=== PATIENT | male | born 1985 | race African-American/Black ===

== ENCOUNTER 2016-09-05 09:22 | Emergency (ER) | payer MEDICAID ==
--- NOTE | 2016-09-05 10:54 | ER Document Report ---
ED Respiratory Problem - General Chief Complaint: Cough Stated Complaint: COUGH Time seen by provider: 10:10 Mode of Arrival: Ambulatory Information source: Patient TRAVEL OUTSIDE OF THE [place] IN LAST 30 DAYS: No - HPI Patient complains to provider of: Cough - pt was on his way to product picker his inhaler when he developed a "hard cough." It lasted several seconds but he feels much better now and wants to leave to product picker his inhaler. He has no other c/o - Related Data Allergies/Adverse Reactions: No Known Allergies Allergy (Verified 09/05/16 09:37) Past Medical History - General Information source: Patient - Social History Smoking Status: Current Some Day Smoker Cigarette use (# per day): No Chew tobacco use (# tins/day): No Smoking Education Provided: Yes Frequency of alcohol use: Rare Drug Abuse: None Family History: Reviewed & Not Pertinent, Other - does not know Patient has suicidal ideation: No Patient has homicidal ideation: No Pulmonary Medical History: Reports: Hx Asthma Renal/ Medical History: Denies: Hx Peritoneal Dialysis GI Medical History: Reports: Hx Irritable Bowel - constipation Psychiatric Medical History: Reports: Hx Anxiety, Hx Depression, Hx Personality Disorder, Hx Schizophrenia Past Surgical History: Reports: Hx Abdominal Surgery, Hx Appendectomy, Hx Orthopedic Surgery - finger - Immunizations Immunizations up to date: Yes Hx Diphtheria, Pertussis, Tetanus Vaccination: Yes - 2012 Hx Pneumococcal Vaccination: 08/23/00 Review of Systems - Review of Systems Constitutional: No symptoms reported EENT: No symptoms reported Cardiovascular: No symptoms reported Respiratory: Cough Gastrointestinal: No symptoms reported -: Yes All other systems reviewed and negative Physical Exam - General General appearance: Appears well In distress: None - HEENT Pharynx: Normal Neck: Normal - Respiratory Respiratory status: No respiratory distress Chest status: Nontender Breath sounds: Normal Chest palpation: Normal - Cardiovascular Rhythm: Regular Heart sounds: Normal auscultation Discharge - Discharge Clinical Impression: Cough in adult Condition: Stable Disposition: HOME, SELF-CARE Additional Instructions: rest, use inhaler as prescribed, return if worse Referrals: HOA HIGGINBOTHAM MD [ACTIVE STAFF] - Follow up as needed
== END 2016-09-05 10:15 | disposition home or self-care (01) ==
LOC: ER 09:22
DX: R05 Cough (principal); F17.200 Nicotine dependence, unspecified, uncomplicated
CPT/HCPCS: 99283

== ENCOUNTER 2016-12-16 22:03 | Emergency (ER) | payer MEDICAID ==
--- NOTE | 2016-12-17 00:36 | ER Document Report ---
ED General - General Chief Complaint: Other Stated Complaint: POSSIBLE FOOD POISONING Time seen by provider: 00:35 Mode of Arrival: Ambulatory Information source: Patient TRAVEL OUTSIDE OF THE [place] IN LAST 30 DAYS: No - HPI Patient complains to provider of: ingested food Onset: Just prior to arrival Onset/Duration: Sudden Quality of pain: No pain Associated symptoms: None Exacerbated by: Denies, Standing Similar symptoms previously: No Notes: Patient is a 31-year-old male who is well-known to this emergency room who presents to the emergency room via EMS tonight for concerns regarding possible ingestion of food, patient states that he ate some beef stew that he believes to be from September 2016, after ingesting the food, he immediately forced himself to throw it up, and reports having no symptoms at present time, he denies any nausea, no abdominal pain - Related Data Allergies/Adverse Reactions: No Known Allergies Allergy (Verified 09/05/16 09:37) Past Medical History - General Information source: Patient - Social History Smoking Status: Unknown if Ever Smoked Family History: Reviewed & Not Pertinent, Other - does not know Patient has suicidal ideation: No Patient has homicidal ideation: No Pulmonary Medical History: Reports: Hx Asthma Renal/ Medical History: Denies: Hx Peritoneal Dialysis GI Medical History: Reports: Hx Irritable Bowel - constipation Psychiatric Medical History: Reports: Hx Anxiety, Hx Depression, Hx Personality Disorder, Hx Schizophrenia Past Surgical History: Reports: Hx Abdominal Surgery, Hx Appendectomy, Hx Orthopedic Surgery - finger - Immunizations Immunizations up to date: Yes Hx Diphtheria, Pertussis, Tetanus Vaccination: Yes - 2012 Hx Pneumococcal Vaccination: 08/23/00 Review of Systems - Review of Systems Constitutional: No symptoms reported EENT: No symptoms reported Cardiovascular: No symptoms reported Respiratory: No symptoms reported Gastrointestinal: See HPI Genitourinary: No symptoms reported Male Genitourinary: No symptoms reported Musculoskeletal: No symptoms reported Skin: No symptoms reported Hematologic/Lymphatic: No symptoms reported Neurological/Psychological: No symptoms reported -: Yes All other systems reviewed and negative Physical Exam - Vital signs Vitals: Temp Pulse Resp BP Pulse Ox 98.1 F 85 16 120/82 98 12/16/16 22:10 12/16/16 22:10 12/16/16 22:10 12/16/16 22:10 12/16/16 22:10 Interpretation: Normal - General General appearance: Appears well, Alert - HEENT Head: Normocephalic, Atraumatic Eyes: Normal Pupils: PERRL - Respiratory Respiratory status: No respiratory distress Chest status: Nontender Breath sounds: Normal Chest palpation: Normal - Cardiovascular Rhythm: Regular Heart sounds: Normal auscultation Murmur: No - Abdominal Inspection: Normal Distension: No distension Bowel sounds: Normal Tenderness: Nontender Organomegaly: No organomegaly - Back Back: Normal, Nontender - Extremities General upper extremity: Normal inspection, Nontender, Normal color, Normal ROM , Normal temperature General lower extremity: Normal inspection, Nontender, Normal color, Normal ROM , Normal temperature, Normal weight bearing. No: Esdras's sign - Neurological Neuro grossly intact: Yes Cognition: Normal Orientation: AAOx4 [place] Coma Scale Eye Opening: Spontaneous [place] Coma Scale Verbal: Oriented Jasmin Coma Scale Motor: Obeys Commands Jasmin Coma Scale Total: 15 Speech: Normal Motor strength normal: LUE, RUE, LLE, RLE Sensory: Normal - Psychological Associated symptoms: Normal affect, Normal mood - Skin Skin Temperature: Warm Skin Moisture: Dry Skin Color: Normal Course - Re-evaluation Re-evalutation: 12/17/16 02:37 Patient is tolerating by mouth intake, he was discharged with instructions for follow-up and advised to return if symptoms worsen, patient acknowledges understanding and agreement with this plan - Vital Signs Vital signs: Temp Pulse Resp BP Pulse Ox 97.7 F 59 L 14 112/69 97 12/17/16 01:13 12/17/16 01:13 12/17/16 01:13 12/17/16 01:13 12/17/16 01:13 Discharge - Discharge Clinical Impression: Adverse food reaction Qualifiers: Encounter type: initial encounter Qualified Code(s): T78.1XXA - Other adverse food reactions, not elsewhere classified, initial encounter Condition: Stable Disposition: HOME, SELF-CARE Additional Instructions: Follow up with your primary care provider in one to 2 days. Return to the emergency room immediately if symptoms worsen or any additional concerns.
[2016-12-17 01:17] VITALS: BP 112/69
== END 2016-12-17 01:30 | disposition home or self-care (01) ==
LOC: ER 22:03
DX: T78.1XXA Other adverse food reactions, not elsewhere classified, initial encounter (principal); X58.XXXA Exposure to other specified factors, initial encounter
CPT/HCPCS: 99283

== ENCOUNTER 2016-12-27 11:23 | Emergency (ER) | payer MEDICAID ==
[2016-12-27 11:32] VITALS: BP 109/71
--- NOTE | 2016-12-27 11:52 | ER Document Report ---
HPI - HPI Pain Level: 0 Context: 31 yo male c/o ear fullness. attempted to clean ears with peroxide and baking soda. no pain Associated Symptoms: None Exacerbated by: Denies Relieved by: Denies Similar symptoms previously: No Recently seen / treated by doctor: No - ROS Systems Reviewed and Negative: Yes All other systems reviewed and negative - REPRODUCTIVE Reproductive: DENIES: : - DERM Skin Color: Normal Past Medical History - General Information source: Patient - Social History Smoking Status: Current Every Day Smoker Frequency of alcohol use: None Drug Abuse: None Lives with: Alone Family History: Reviewed & Not Pertinent, Other - does not know Patient has suicidal ideation: No Patient has homicidal ideation: No Pulmonary Medical History: Reports: Hx Asthma Renal/ Medical History: Denies: Hx Peritoneal Dialysis GI Medical History: Reports: Hx Irritable Bowel - constipation Psychiatric Medical History: Reports: Hx Anxiety, Hx Depression, Hx Personality Disorder, Hx Schizophrenia Past Surgical History: Reports: Hx Abdominal Surgery, Hx Appendectomy, Hx Orthopedic Surgery - finger - Immunizations Immunizations up to date: Yes Hx Diphtheria, Pertussis, Tetanus Vaccination: Yes - 2012 Hx Pneumococcal Vaccination: 08/23/00 Vertical Provider Document - CONSTITUTIONAL Agree With Documented VS: Yes Exam Limitations: No Limitations - INFECTION CONTROL TRAVEL OUTSIDE OF THE [place] IN LAST 30 DAYS: No - HEENT HEENT: Atraumatic, Normal ENT Exam, PERRLA - NECK Neck: Normal Inspection, Supple - RESPIRATORY Respiratory: Breath Sounds Normal, No Respiratory Distress O2 Sat by Pulse Oximetry: 95 - CARDIOVASCULAR Cardiovascular: Regular Rate, Regular Rhythm - NEURO Level of Consciousness: Awake, Alert - DERM Integumentary: Warm, Dry Course - Vital Signs Vital signs: Temp Pulse Resp BP Pulse Ox 98.1 F 81 18 109/71 95 12/27/16 11:31 12/27/16 11:31 12/27/16 11:31 12/27/16 11:31 12/27/16 11:31 Discharge - Discharge Clinical Impression: Normal exam Condition: Stable Disposition: HOME, SELF-CARE Additional Instructions: Your ear exam was normal today Follow up with your primary care for any concerns
== END 2016-12-27 12:05 | disposition home or self-care (01) ==
LOC: ER 11:23
DX: Z71.1 Person with feared health complaint in whom no diagnosis is made (principal); F17.200 Nicotine dependence, unspecified, uncomplicated
CPT/HCPCS: 99282

== ENCOUNTER 2016-12-31 08:59 | Emergency (ER) | payer MEDICAID ==
[2016-12-31 09:18] VITALS: BP 119/71
== END 2016-12-31 10:26 | disposition left against medical advice (07) ==
LOC: ER 08:59
DX: Z53.21 Procedure and treatment not carried out due to patient leaving prior to being seen by health care provider (principal)

== ENCOUNTER 2016-12-31 13:12 | Emergency (ER) | payer OTHER, MEDICAID ==
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
[2016-12-31 15:47] VITALS: BP 115/74
== END 2016-12-31 15:46 | disposition home or self-care (01) ==
LOC: ER 13:12
DX: Z04.1 Encounter for examination and observation following transport accident (principal); V47.5XXA Car driver injured in collision with fixed or stationary object in traffic accident, initial encounter
CPT/HCPCS: 99283

== ENCOUNTER 2017-01-05 10:40 | Emergency (ER) | payer MEDICAID, OTHER ==
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
[2017-01-05 11:16] VITALS: BP 116/72
== END 2017-01-05 11:56 | disposition home or self-care (01) ==
LOC: ER 10:40
DX: S30.0XXA Contusion of lower back and pelvis, initial encounter (principal); S90.00XA Contusion of unspecified ankle, initial encounter; S90.512A Abrasion, left ankle, initial encounter; S50.312A Abrasion of left elbow, initial encounter; V13.9XXA Unspecified pedal cyclist injured in collision with car, pick-up truck or van in traffic accident, initial encounter; J45.909 Unspecified asthma, uncomplicated; F17.210 Nicotine dependence, cigarettes, uncomplicated; Z71.6 Tobacco abuse counseling
CPT/HCPCS: 72110; 99283

== ENCOUNTER 2017-01-31 12:37 | Emergency (ER) | payer MEDICAID ==
[2017-01-31 12:44] VITALS: BP 114/72
--- NOTE | 2017-01-31 13:37 | ER Document Report ---
ED Skin Rash/Insect Bite/Abscs - General Chief Complaint: Insect Bite Stated Complaint: POSSIBLE BUG BITE Time Seen by Provider: 01/31/17 13:19 TRAVEL OUTSIDE OF THE [place] IN LAST 30 DAYS: No - Related Data Allergies/Adverse Reactions: No Known Allergies Allergy (Verified 01/31/17 12:41) Past Medical History - General Information source: Patient - Social History Smoking Status: Current Some Day Smoker Cigarette use (# per day): Yes - rarely Chew tobacco use (# tins/day): No Smoking Education Provided: No Frequency of alcohol use: Occasional Drug Abuse: None Occupation: diabled Lives with: Alone Family History: Reviewed & Not Pertinent, Other - does not know Patient has suicidal ideation: No Patient has homicidal ideation: No - Past Medical History Cardiac Medical History: Reports: None Pulmonary Medical History: Reports: Hx Asthma EENT Medical History: Reports: None Neurological Medical History: Reports: None Endocrine Medical History: Reports: None Renal/ Medical History: Reports: None Malignancy Medical History: Reports None GI Medical History: Reports: Hx Irritable Bowel - constipation Musculoskeltal Medical History: Reports None Skin Medical History: Reports None Psychiatric Medical History: Reports: Hx Anxiety, Hx Depression, Hx Personality Disorder, Hx Schizophrenia Traumatic Medical History: Reports: None Infectious Medical History: Reports: None Past Surgical History: Reports: Hx Abdominal Surgery, Hx Appendectomy, Hx Orthopedic Surgery - finger - Immunizations Immunizations up to date: Yes Hx Diphtheria, Pertussis, Tetanus Vaccination: Yes - 2012 Hx Pneumococcal Vaccination: 08/23/00 Review of Systems - Review of Systems Constitutional: No symptoms reported EENT: No symptoms reported Cardiovascular: No symptoms reported Respiratory: No symptoms reported Gastrointestinal: No symptoms reported Genitourinary: No symptoms reported Male Genitourinary: No symptoms reported Musculoskeletal: No symptoms reported Skin: Other - Insect bite to buttocks Hematologic/Lymphatic: No symptoms reported Neurological/Psychological: No symptoms reported -: Yes All other systems reviewed and negative Physical Exam - Vital signs Vitals: Temp Pulse Resp BP Pulse Ox 97.6 F 68 16 114/72 97 01/31/17 12:42 01/31/17 12:42 01/31/17 12:42 01/31/17 12:42 01/31/17 12:42 Interpretation: Normal - General General appearance: Appears well, Alert - HEENT Head: Normocephalic, Atraumatic Eyes: Normal Pupils: PERRL - Respiratory Respiratory status: No respiratory distress Chest status: Nontender Breath sounds: Normal Chest palpation: Normal - Cardiovascular Rhythm: Regular Heart sounds: Normal auscultation Murmur: No - Abdominal Inspection: Normal Distension: No distension Bowel sounds: Normal Tenderness: Nontender Organomegaly: No organomegaly - Back Back: Normal, Nontender - Extremities General upper extremity: Normal inspection, Nontender, Normal color, Normal ROM , Normal temperature General lower extremity: Normal inspection, Nontender, Normal color, Normal ROM , Normal temperature, Normal weight bearing. No: Esdras's sign - Neurological Neuro grossly intact: Yes Cognition: Normal Orientation: AAOx4 Jasmin Coma Scale Eye Opening: Spontaneous Jasmin Coma Scale Verbal: Oriented Jasmin Coma Scale Motor: Obeys Commands Jasmin Coma Scale Total: 15 Speech: Normal Motor strength normal: LUE, RUE, LLE, RLE Sensory: Normal - Psychological Associated symptoms: Normal affect, Normal mood - Skin Skin Temperature: Warm Skin Moisture: Dry Skin Color: Normal Location of irregularity: Other - Small insect bite to left buttocks swelling no inflammation no drainage no signs of infection Irregularity with: Tenderness. negative: Swelling, Warmth Course - Vital Signs Vital signs: Temp Pulse Resp BP Pulse Ox 97.6 F 68 16 114/72 97 01/31/17 12:42 01/31/17 12:42 01/31/17 12:42 01/31/17 12:42 01/31/17 12:42 Discharge - Discharge Clinical Impression: Insect bite to left buttocks Condition: Stable Disposition: HOME, SELF-CARE Instructions: Family Physicians / Practices Additional Instructions: Insect Bites You have been bitten by an insect. These bites can cause two types of swelling: an initial swelling due to insect saliva or injected poison, and a late reaction due to your body's allergic reaction. This initial local reaction may be uncomfortable but is not dangerous. Often there's an itchy "hive" at the bite location. This is treated with antihistamines, cold compresses, and resting the affected body part. The later reaction often develops about the second day. The entire area becomes very swollen, red, itchy, and tender. This is an allergic reaction. Your body is attacking the leftover insect saliva or venom. This type of allergy is unpleasant, but not dangerous. We treat this swelling with cortisone -type medicine. Sometimes we use antibiotics if we're worried about infection. Antihistamines help with the itch. If you develop a fever, chills, a red streak, or swollen glands in the area of the bite, infection may be starting. Return at once. Diphenhydramine The use of diphenhydramine (Benadryl) has been recommended to control allergic symptoms. The 25 mg strength is available over- the-counter, as well as the elixir. This antihistamine is used for many symptoms. It's useful for itching, watering eyes and nose, allergic swelling, hives, and insect stings. The medication can be repeated four times daily. Age Elixir (12.5 mg/tsp) 25 mg pill 1 yr 1/4 tsp 2-3 yr 1/2 tsp 4-8 yr 1 tsp 9-14 yr 2 tsp one tab adult 1-2 tabs Antihistamines may cause drowsiness, especially with the first dose. Do not operate machinery or drive while under the effects of the medication. Do not combine the medication with alcohol, or with any other medication without talking to your doctor. Acetaminophen Acetaminophen may be taken for pain relief or fever control. It's much safer than aspirin, offering a wider range of "safe" dosages. It is safe during . Some brand names are Tylenol, Panadol, Datril, Anacin 3, Tempra, and Liquiprin. Acetaminophen can be repeated every four hours. The following are maximum recommended dosages: WEIGHT Dose Drops Elixir Chewable( 80mg) (LBS.) drprs=droppers tsp=teaspoon 6 40 mg .4 ml (1/2) 6-11 80 mg .8 ml (full) 1/2 tsp 1 tab 12-16 120 mg 1 1/2 drprs 3/4 tsp 1 1/2 tabs 17-23 160 mg 2 drprs 1 tsp 2 tabs 24-30 240 mg 3 drprs 1 1/2 tsp 3 tabs 30-35 320 mg 2 tsp 4 tabs 36-41 360 mg 2 1/4 tsp 4 1 /2 tabs 42-47 400 mg 2 1/2 tsp 5 tabs 48-53 480 mg 3 tsp 6 tabs 54-59 520 mg 3 1/4 tsp 6 1 /2 tabs 60-64 560 mg 3 1/2 tsp 7 tabs 65-70 600 mg 3 3/4 tsp 7 1 /2 tabs 71-76 640 mg 4 tsp 8 tabs 77-82 720 mg 4 1/2 tsp 9 tabs 83-88 800 mg 5 tsp 10 tabs >89 pounds or adults 650 mg to 900 mg Acetaminophen can be repeated every four hours. Maximum daily dose not to exceed 4000 mg. These maximum recommended dosages are slightly higher than the dosages written on the product container, but these dosages are very safe and well below the toxic dosage for acetaminophen. FOLLOW-UP CARE: If you have been referred to a physician for follow-up care, call the physician s office for an appointment as you were instructed or within the next two days. If you experience worsening or a significant change in your symptoms, notify the physician immediately or return to the Emergency Department at any time for re-evaluation. Forms: Smoking Cessation Education
== END 2017-01-31 13:40 | disposition home or self-care (01) ==
LOC: ER 12:37
DX: S30.860A Insect bite (nonvenomous) of lower back and pelvis, initial encounter (principal); W57.XXXA Bitten or stung by nonvenomous insect and other nonvenomous arthropods, initial encounter
CPT/HCPCS: 99281

== ENCOUNTER 2017-04-03 23:14 | Emergency (ER) | payer MEDICAID ==
[2017-04-03] MEDS ORDERED: MAG HYDROX/AL HYDROX/SIMETH SUSP 30 ML UDCUP PO ONE (23:55)
[2017-04-03] MEDS ORDERED: LIDOCAINE 2% VISCOUS SOLN 20 ML UDCUP PO ONE (23:55)
[2017-04-03] MEDS ORDERED: METOCLOPRAMIDE HCL ORAL SOLN 10 MG/10 ML UDCUP PO ONE (23:55)
[2017-04-03] MEDS ORDERED: FAMOTIDINE 20 MG TABLET PO ONE (23:56)
[2017-04-04 01:15] LABS: ALANINE AMINOTRANSFERASE 19 U/L (21-72); ALBUMIN 4.7 g/dL (3.5-5.0); ALKALINE PHOSPHATASE 73 U/L (38-126); ANION GAP 11 (5-19); ASPARTATE AMINO TRANSFERASE 22 U/L (17-59); BILIRUBIN,DIRECT 0.3 mg/dL (0.0-0.4); BILIRUBIN,TOTAL 2.2 mg/dL (0.2-1.3); BLOOD UREA NITROGEN 12 mg/dL (7-20); CALCIUM 9.7 mg/dL (8.4-10.2); CARBON DIOXIDE 28 mmol/L (22-30); CHLORIDE 104 mmol/L (98-107); CREATININE RESULT 0.93 mg/dL (0.52-1.25); GLUCOSE 117 mg/dL (75-110); POTASSIUM 4.3 mmol/L (3.6-5.0); SODIUM 142.5 mmol/L (137-145); TOTAL PROTEIN 7.7 g/dL (6.3-8.2)
--- NOTE | 2017-04-04 01:23 | ER Document Report ---
ED General - General Chief Complaint: Abdominal Pain Stated Complaint: POSSIBLE ACID REFLUX Time Seen by Provider: 04/03/17 23:55 Notes: Patient is a 31-year-old male without past medical history who presents after he ate "something" which he states upset his stomach causing to have an episode of vomiting. He notes that he had a burning, constant, epigastric abdominal pain that is now resolved after receiving a GI cocktail. He reports a history of similar symptoms in the past. States that he has a history of gastroesophageal reflux disease and that this felt similar to those prior exacerbations. He did not see his primary care doctor regarding today's concerns. He did arrive by EMS. He denies any chest pain or shortness of breath. Denies any symptoms at time of my assessment. TRAVEL OUTSIDE OF THE [place] IN LAST 30 DAYS: No - Related Data Allergies/Adverse Reactions: No Known Allergies Allergy (Verified 01/31/17 12:41) Past Medical History - General Information source: Patient - Social History Smoking Status: Never Smoker Frequency of alcohol use: None Drug Abuse: None Family History: Reviewed & Not Pertinent, Other - does not know Patient has suicidal ideation: No Patient has homicidal ideation: No Pulmonary Medical History: Reports: Hx Asthma Renal/ Medical History: Denies: Hx Peritoneal Dialysis GI Medical History: Reports: Hx Irritable Bowel - constipation Psychiatric Medical History: Reports: Hx Anxiety, Hx Depression, Hx Personality Disorder, Hx Schizophrenia Past Surgical History: Reports: Hx Abdominal Surgery, Hx Appendectomy, Hx Orthopedic Surgery - finger - Immunizations Immunizations up to date: Yes Hx Diphtheria, Pertussis, Tetanus Vaccination: Yes - 2012 Hx Pneumococcal Vaccination: 08/23/00 Review of Systems - Review of Systems Notes: Constitutional: Negative for fever. HENT: Negative for sore throat. Eyes: Negative for visual changes. Cardiovascular: Negative for chest pain. Respiratory: Negative for shortness of breath. Gastrointestinal: Positive for abdominal pain and vomiting Genitourinary: Negative for dysuria. Musculoskeletal: Negative for back pain. Skin: Negative for rash. Neurological: Negative for headaches, weakness or numbness. 10 point ROS negative except as marked above and in HPI. Physical Exam - Vital signs Vitals: Temp Pulse Resp BP Pulse Ox 98.8 F 50 L 18 130/74 H 99 04/03/17 23:22 04/03/17 23:22 04/03/17 23:22 04/03/17 23:22 04/03/17 23:22 Interpretation: Bradycardic Notes: PHYSICAL EXAMINATION: GENERAL: Well-appearing, well-nourished and in no acute distress. HEAD: Atraumatic, normocephalic. EYES: Pupils equal round and reactive to light, extraocular movements intact, sclera anicteric, conjunctiva are normal. ENT: nares patent, oropharynx clear without exudates. Moist mucous membranes. NECK: Normal range of motion, supple without lymphadenopathy LUNGS: Breath sounds clear to auscultation bilaterally and equal. No wheezes rales or rhonchi. HEART: Regular rate and rhythm without murmurs ABDOMEN: Soft, nontender, normoactive bowel sounds. No guarding, no rebound. No masses appreciated. EXTREMITIES: Normal range of motion, no pitting or edema. No cyanosis. NEUROLOGICAL: No focal neurological deficits. Moves all extremities spontaneously and on command. PSYCH: Normal mood, normal affect. SKIN: Warm, Dry, normal turgor, no rashes or lesions noted. Course - Re-evaluation Re-evalutation: 04/04/17 01:22 Patient presents with epigastric abdominal pain with associated reflux symptoms most consistent with likely gastritis. Patient has no focal abdominal tenderness on examination. Lipase is normal. No LFT changes. Based on history and exam, I do not suspect ACS, pulmonary embolus, SBO, mesenteric ischemia, acute pancreatitis, biliary pathology, or an abdominal aortic dissection. Patient has had improvement of symptoms here with a GI cocktail. At this time will discharge with return precautions and follow-up recommendations. Verbal discharge instructions given a the bedside and opportunity for questions given. Medication warnings reviewed. Patient is in agreement with this plan and has verbalized understanding of return precautions and the need for primary care follow-up in the next 24-72 hours. - Vital Signs Vital signs: Temp Pulse Resp BP Pulse Ox 97.6 F 65 15 118/63 100 04/04/17 02:11 04/04/17 02:11 04/04/17 02:11 04/04/17 02:11 04/04/17 02:11 - Laboratory Result Diagrams: 04/04/17 00:50 Laboratory results interpreted by me: 04/04/17 00:50 Glucose 117 H Total Bilirubin 2.2 H ALT 19 L - EKG Interpretation by Me Additional EKG results interpreted by me: 04/04/17 01:23 Sinus bradycardia. Rate 55. No ST elevations or depressions. QTC is 398. Discharge - Discharge Clinical Impression: Epigastric abdominal pain Condition: Good Disposition: HOME, SELF-CARE Additional Instructions: Your symptoms appear to be most consistent with stomach or upper intestinal irritation. Please begin taking famotidine 40 mg in the morning and 40 mg at night. This medicine can be purchased directly [id number]. You may also take medicine such as Pepto-Bismol or Tums to assist with your pain. Please return to emergency department immediately if you have worsening of your pain, shortness of breath, vomiting, become unable to exert yourself due to pain or difficulty breathing, you pass out, or have any pain that radiates into your arms, jaw, or back. Please also return if you have any additional symptoms that are concerning to you. Referrals: GIANCARLO CHANCE MD [Primary Care Provider] - Follow up as needed
[2017-04-04 02:13] VITALS: BP 118/63
--- NOTE | 2017-04-04 23:19 | EKG REPORT ---
SEVERITY:- ABNORMAL ECG - SINUS RHYTHM PROBABLE LEFT VENTRICULAR HYPERTROPHY ST ELEVATION SUGGESTS PERICARDITIS VS EARLY REPOLARIZATION : Confirmed by: Fernando Delarosa 04-Apr-2017 23:18:39
== END 2017-04-04 02:41 | disposition home or self-care (01) ==
LOC: ER 23:14
DX: R10.13 Epigastric pain (principal); R11.10 Vomiting, unspecified
CPT/HCPCS: 93005; 99284; 36415; 83690; 80053; 84484; 93010; J3490 ×4

== ENCOUNTER 2017-04-06 01:28 | Emergency (ER) | payer MEDICAID ==
[2017-04-06 01:52] VITALS: BP 137/76
[2017-04-06] MEDS ORDERED: METOCLOPRAMIDE HCL ORAL SOLN 10 MG/10 ML UDCUP PO ONE (02:04)
[2017-04-06] MEDS ORDERED: MAG HYDROX/AL HYDROX/SIMETH SUSP 30 ML UDCUP PO ONE (02:04)
[2017-04-06] MEDS ORDERED: LIDOCAINE 2% VISCOUS SOLN 20 ML UDCUP PO ONE (02:04)
--- NOTE | 2017-04-06 02:17 | ER Document Report ---
ED General - General Chief Complaint: Abdominal Pain Stated Complaint: STOMACH ACHE Time Seen by Provider: 04/06/17 02:04 TRAVEL OUTSIDE OF THE [place] IN LAST 30 DAYS: No - HPI Patient complains to provider of: Epigastric abdominal pain Notes: Patient coming in for evaluation of epigastric abdominal pain after drinking alcohol. Patient states similar to previous visit when he received a GI cocktail however is not as worse. Patient describes the pain as burning. Patient denies any nausea vomiting diarrhea. Denies any trauma. Patient currently playing on cell phone as I am evaluating the patient - Related Data Allergies/Adverse Reactions: No Known Allergies Allergy (Verified 01/31/17 12:41) Past Medical History - Social History Smoking Status: Unknown if Ever Smoked Family History: Reviewed & Not Pertinent, Other - does not know Pulmonary Medical History: Reports: Hx Asthma Renal/ Medical History: Denies: Hx Peritoneal Dialysis GI Medical History: Reports: Hx Irritable Bowel - constipation Psychiatric Medical History: Reports: Hx Anxiety, Hx Depression, Hx Personality Disorder, Hx Schizophrenia Past Surgical History: Reports: Hx Abdominal Surgery, Hx Appendectomy, Hx Orthopedic Surgery - finger - Immunizations Immunizations up to date: Yes Hx Diphtheria, Pertussis, Tetanus Vaccination: Yes - 2012 Hx Pneumococcal Vaccination: 08/23/00 Review of Systems - Review of Systems Constitutional: No symptoms reported EENT: No symptoms reported Cardiovascular: No symptoms reported Respiratory: No symptoms reported Gastrointestinal: Abdominal pain Genitourinary: No symptoms reported Male Genitourinary: No symptoms reported Musculoskeletal: No symptoms reported Skin: No symptoms reported Hematologic/Lymphatic: No symptoms reported Neurological/Psychological: No symptoms reported Physical Exam - Vital signs Vitals: Temp Pulse Resp BP Pulse Ox 98.6 F 60 19 137/76 H 100 04/06/17 01:49 04/06/17 01:49 04/06/17 01:49 04/06/17 01:49 04/06/17 01:49 Interpretation: Normal - General General appearance: Appears well, Alert - HEENT Head: Normocephalic, Atraumatic Eyes: Normal Pupils: PERRL - Respiratory Respiratory status: No respiratory distress Chest status: Nontender Breath sounds: Normal Chest palpation: Normal - Cardiovascular Rhythm: Regular Heart sounds: Normal auscultation Murmur: No - Abdominal Inspection: Normal Distension: No distension Bowel sounds: Normal Tenderness: Nontender Organomegaly: No organomegaly - Back Back: Normal, Nontender - Extremities General upper extremity: Normal inspection, Nontender, Normal color, Normal ROM , Normal temperature General lower extremity: Normal inspection, Nontender, Normal color, Normal ROM , Normal temperature, Normal weight bearing. No: Esdras's sign - Neurological Neuro grossly intact: Yes Cognition: Normal Orientation: AAOx4 Jasmin Coma Scale Eye Opening: Spontaneous Jasmin Coma Scale Verbal: Oriented [place] Coma Scale Motor: Obeys Commands Jasmin Coma Scale Total: 15 Speech: Normal Motor strength normal: LUE, RUE, LLE, RLE Sensory: Normal - Psychological Associated symptoms: Normal affect, Normal mood - Skin Skin Temperature: Warm Skin Moisture: Dry Skin Color: Normal Course - Re-evaluation Re-evalutation: 04/06/17 06:20 The patient presents with abdominal pain without signs of peritonitis or other life-threatening or serious etiology. The patient appears stable for discharge and has been instructed to return immediately if the symptoms worsen in any way , or in 8-12hr if not improved for re-evaluation. The patient has been instructed to return if the symptoms worsen or change in any way. Pain resolved with GI cocktail. Patient was encouraged to taper his alcohol drinking - Vital Signs Vital signs: Temp Pulse Resp BP Pulse Ox 98.6 F 60 19 137/76 H 100 04/06/17 01:49 04/06/17 01:49 04/06/17 01:49 04/06/17 01:49 04/06/17 01:49 Discharge - Discharge Clinical Impression: Epigastric abdominal pain Condition: Good Disposition: HOME, SELF-CARE Instructions: Abdominal Pain ([facility]), Reflux Disease (GERD) ([facility]) Additional Instructions: Your symptoms are more likely related to your alcohol ingestion. Please refrain from drinking alcohol in excess. He may take Zantac [id number]. Prescriptions: Ranitidine HCl [Zantac 75 mg Tablet] 75 mg PO BID #20 tablet Forms: Return to Work
== END 2017-04-06 02:20 | disposition home or self-care (01) ==
LOC: ER 01:28
DX: R10.13 Epigastric pain (principal)
CPT/HCPCS: 99283; J3490 ×3

== ENCOUNTER 2017-04-17 11:31 | Emergency (ER) | payer MEDICAID ==
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
[2017-04-17 11:47] VITALS: BP 123/72
== END 2017-04-17 11:44 | disposition home or self-care (01) ==
LOC: ER 11:31
DX: J02.9 Acute pharyngitis, unspecified (principal); F17.200 Nicotine dependence, unspecified, uncomplicated
CPT/HCPCS: 99281

== ENCOUNTER 2017-04-19 13:09 | Emergency (ER) | payer MEDICAID ==
[2017-04-19] MEDS ORDERED: LIDOCAINE 2% VISCOUS SOLN 20 ML UDCUP PO ONE (13:43)
[2017-04-19] MEDS ORDERED: METOCLOPRAMIDE HCL ORAL SOLN 10 MG/10 ML UDCUP PO ONE (13:43)
[2017-04-19] MEDS ORDERED: MAG HYDROX/AL HYDROX/SIMETH SUSP 30 ML UDCUP PO ONE (13:43)
--- NOTE | 2017-04-19 14:43 | RADIOLOGY REPORT (SQ) ---
EXAM DESCRIPTION: ACUTE ABDOMEN SERIES COMPLETED DATE/TIME: 04/19/2017 2:29 pm REASON FOR STUDY: pain COMPARISON: 01/19/2014 NUMBER OF VIEWS: Three views. TECHNIQUE: Frontal chest, supine abdomen and upright/decubitus abdomen radiographic images acquired. LIMITATIONS: None. FINDINGS: CHEST: Lungs clear of infiltrates. FREE AIR: None. No abnormal gas collections. BOWEL GAS PATTERN: Nonobstructive pattern. No dilated loops or air fluid levels. CALCIFICATIONS: No suspicious calcifications. HARDWARE: None in the abdomen. SOFT TISSUES: No gross mass or suggestion of organomegaly. BONES: No acute fracture. No worrisome bone lesions. OTHER: No other significant finding. IMPRESSION: NO RADIOGRAPHIC EVIDENCE FOR ACUTE ABDOMINAL DISEASE. TECHNICAL DOCUMENTATION: JOB ID: [id number] [employer]- All Rights Reserved
--- NOTE | 2017-04-19 14:50 | ER Document Report ---
ED Medical Screen (RME) - General Chief Complaint: Abdominal Pain Stated Complaint: ABDOMINAL PAIN Time Seen by Provider: 04/19/17 13:43 Mode of Arrival: Ambulatory Information source: Patient Notes: Patient presents complaining of abdominal pressure. He denies pain and just states it is a diffuse pressure. He states that he took out the garbage and forgot to wash his hands before he ate so he is concerned he may have contracted an illness. No vomiting or diarrhea. Nothing makes the sensation better or worse. The sensation does radiate up into his chest. It is intermittent. TRAVEL OUTSIDE OF THE [place] IN LAST 30 DAYS: No - Related Data Allergies/Adverse Reactions: No Known Allergies Allergy (Verified 04/19/17 13:17) Home Medications: Current Home Medications Risperidone [Risperidone] 2 mg PO DAILY 04/19/17 [History] Past Medical History - General Information source: Patient - Social History Chew tobacco use (# tins/day): No Frequency of alcohol use: Rare Drug Abuse: None Family history: Reviewed & Not Pertinent Pulmonary Medical History: Reports: Hx Asthma Renal/ Medical History: Denies: Hx Peritoneal Dialysis GI Medical History: Reports: Hx Irritable Bowel - constipation Psychiatric Medical History: Reports: Hx Anxiety, Hx Depression, Hx Personality Disorder, Hx Schizophrenia Past Surgical History: Reports: Hx Abdominal Surgery, Hx Appendectomy, Hx Orthopedic Surgery - finger - Immunizations Immunizations up to date: Yes Hx Diphtheria, Pertussis, Tetanus Vaccination: Yes - 2012 Review of Systems - Review of Systems Constitutional: denies: Chills, Fever Cardiovascular: denies: Chest pain, Palpitations Respiratory: denies: Cough, Short of breath Gastrointestinal: denies: Diarrhea, Vomiting -: Yes All other systems reviewed and negative Physical Exam - Vital signs Vitals: Temp Pulse Resp BP Pulse Ox 98.7 F 86 16 121/68 99 04/19/17 13:17 04/19/17 13:17 04/19/17 13:17 04/19/17 13:17 04/19/17 13:17 Interpretation: Normal - General General appearance: Appears well, Alert - HEENT Head: Normocephalic, Atraumatic Eyes: Normal Pupils: PERRL - Respiratory Respiratory status: No respiratory distress Chest status: Nontender Breath sounds: Normal Chest palpation: Normal - Cardiovascular Rhythm: Regular Heart sounds: Normal auscultation Murmur: No - Abdominal Inspection: Normal Distension: No distension Bowel sounds: Normal Tenderness: Nontender Organomegaly: No organomegaly - Back Back: Normal, Nontender - Extremities General upper extremity: Normal inspection, Nontender, Normal color, Normal ROM , Normal temperature General lower extremity: Normal inspection, Nontender, Normal color, Normal ROM , Normal temperature, Normal weight bearing. No: Esdras's sign - Neurological Neuro grossly intact: Yes Cognition: Normal Orientation: AAOx4 [place] Coma Scale Eye Opening: Spontaneous [place] Coma Scale Verbal: Oriented Jasmin Coma Scale Motor: Obeys Commands [place] Coma Scale Total: 15 Speech: Normal Motor strength normal: LUE, RUE, LLE, RLE Sensory: Normal - Psychological Associated symptoms: Normal affect, Normal mood - Skin Skin Temperature: Warm Skin Moisture: Dry Skin Color: Normal Course - Vital Signs Vital signs: Temp Pulse Resp BP Pulse Ox 98.7 F 86 16 121/68 99 04/19/17 13:17 04/19/17 13:17 04/19/17 13:17 04/19/17 13:17 04/19/17 13:17 - Diagnostic Test Radiology reviewed: Image reviewed, Reports reviewed - No evidence of acute pathology on x-ray. Doctor's Discharge - Discharge Clinical Impression: Abdominal pressure Condition: Stable Disposition: HOME, SELF-CARE Instructions: Abdominal Pain ([facility])
[2017-04-19 14:54] VITALS: BP 120/70
== END 2017-04-19 14:54 | disposition home or self-care (01) ==
LOC: ER 13:09
DX: R19.8 Other specified symptoms and signs involving the digestive system and abdomen (principal); J45.909 Unspecified asthma, uncomplicated; Z90.49 Acquired absence of other specified parts of digestive tract
CPT/HCPCS: 99284; 74022; J3490 ×3

== ENCOUNTER 2017-04-25 12:35 | Emergency (ER) | payer MEDICAID ==
[2017-04-25 12:40] VITALS: BP 134/77
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
== END 2017-04-25 13:41 | disposition home or self-care (01) ==
LOC: ER 12:35
DX: H53.8 Other visual disturbances (principal); J45.909 Unspecified asthma, uncomplicated
CPT/HCPCS: 99283

== ENCOUNTER 2017-05-29 15:35 | Emergency (ER) | payer MEDICAID ==
[2017-05-29 15:41] VITALS: BP 126/78
--- NOTE | 2017-05-29 16:23 | ER Document Report ---
ED General - General Chief Complaint: Bloody Stools Stated Complaint: BLOOD IN STOOL Time Seen by Provider: 05/29/17 15:58 Mode of Arrival: Ambulatory Information source: Patient Notes: 31-year-old male presents with history schizophrenia with complaints of rectal bleeding. Patient denies any fevers or chills denies any abdominal pain. Patient denies any previous similar episodes of rectal bleeding. Patient notes it is a bright red blood. TRAVEL OUTSIDE OF THE [place] IN LAST 30 DAYS: No - HPI Onset: Just prior to arrival Onset/Duration: Sudden Quality of pain: No pain Severity: None Pain Level: Denies Associated symptoms: None Exacerbated by: Denies Relieved by: Denies Similar symptoms previously: No Recently seen / treated by doctor: Yes - Related Data Allergies/Adverse Reactions: No Known Allergies Allergy (Verified 05/29/17 15:39) Past Medical History - Social History Smoking Status: Current Some Day Smoker Cigarette use (# per day): No Chew tobacco use (# tins/day): No Smoking Education Provided: No Frequency of alcohol use: None Drug Abuse: None Family History: Reviewed & Not Pertinent, Other - does not know Pulmonary Medical History: Reports: Hx Asthma Renal/ Medical History: Denies: Hx Peritoneal Dialysis GI Medical History: Reports: Hx Irritable Bowel - constipation Psychiatric Medical History: Reports: Hx Anxiety, Hx Depression, Hx Personality Disorder, Hx Schizophrenia Past Surgical History: Reports: Hx Abdominal Surgery, Hx Appendectomy, Hx Orthopedic Surgery - finger - Immunizations Immunizations up to date: Yes Hx Diphtheria, Pertussis, Tetanus Vaccination: Yes - 2012 Hx Pneumococcal Vaccination: 08/23/00 Review of Systems - Review of Systems Notes: REVIEW OF SYSTEMS: CONSTITUTIONAL : Denies fever, chills, or sweats. Denies recent illness. EENT: Denies eye, ear, throat, or mouth pain or symptoms. Denies nasal or sinus congestion or discharge. Denies throat, tongue, or mouth swelling or difficulty swallowing. CARDIOVASCULAR: Denies chest pain. Denies palpitations or racing or irregular heart beat. Denies ankle edema. RESPIRATORY: Denies cough, cold, or chest congestion. Denies shortness of breath, difficulty breathing, or wheezing. GASTROINTESTINAL: Admits to bright red rectal bleeding GENITOURINARY: Denies difficulty urinating, painful urination, burning, frequency, blood in urine, or discharge. MUSCULOSKELETAL: Denies back or neck pain or stiffness. Denies joint pain or swelling. SKIN: Denies rash, lesions or sores. HEMATOLOGIC : Denies easy bruising or bleeding. LYMPHATIC: Denies swollen, enlarged glands. NEUROLOGICAL: Denies confusion or altered mental status. Denies passing out or loss of consciousness. Denies dizziness or lightheadedness. Denies headache. Denies weakness or paralysis or loss of use of either side. Denies problems with gait or speech. Denies sensory loss, numbness, or tingling. Denies seizures. PSYCHIATRIC: Denies anxiety or stress. Denies depression, suicidal ideation, or homicidal ideation. ALL OTHER SYSTEMS REVIEWED AND NEGATIVE. Dictation was performed using [email or web address] voice recognition software PHYSICAL EXAMINATION: GENERAL: Well-appearing, well-nourished and in no acute distress. HEAD: Atraumatic, normocephalic. EYES: Pupils equal round and reactive to light, extraocular movements intact, sclera anicteric, conjunctiva are normal. ENT: Nares patent, oropharynx clear without exudates. Moist mucous membranes. NECK: Normal range of motion, supple without lymphadenopathy LUNGS: Breath sounds clear to auscultation bilaterally and equal. No wheezes rales or rhonchi. HEART: Regular rate and rhythm without murmurs ABDOMEN: Soft, nontender, nondistended abdomen. No guarding, no rebound. No masses appreciated. Rectal exam notes no abnormaltiy Musculoskeletal: Normal range of motion, no pitting or edema. No cyanosis. NEUROLOGICAL: Cranial nerves grossly intact. Normal speech, normal gait. Normal sensory, motor exams PSYCH: Normal mood, normal affect. SKIN: Warm, Dry, normal turgor, no rashes or lesions noted. Physical Exam - Vital signs Vitals: Temp Pulse Resp BP Pulse Ox 98.2 F 81 20 126/78 H 98 05/29/17 15:40 05/29/17 15:40 05/29/17 15:40 05/29/17 15:40 05/29/17 15:40 Course - Re-evaluation Re-evalutation: 05/29/17 19:03 Physical examination noted no significant abnormality patient otherwise looks well is in no distress. I will discharge the patient at this time as he has no life-threatening issues noted After performing a Medical Screening Examination, I estimate there is LOW risk for ACUTE APPENDICITIS, BOWEL OBSTRUCTION, ACUTE CHOLECYSTITIS, PERFORATED DIVERTICULITIS, INCARCERATED HERNIA, PANCREATITIS, TESTICULAR TORSION or PERFORATED ULCER, thus I consider the discharge disposition reasonable. Also, there is no evidence or peritonitis, sepsis, or toxicity. I have reevaluated this patient multiple times and no significant life threatening changes are noted. The patient and I have discussed the diagnosis and risks, and we agree with discharging home with close follow-up with the understanding that symptoms and presentations can change. We also discussed returning to the Emergency Department immediately if new or worsening symptoms occur. We have discussed the symptoms which are most concerning (e.g., bloody stool, fever, changing or worsening pain, intractable vomiting - standard verbal up date) that necessitate immediate return. - Vital Signs Vital signs: Temp Pulse Resp BP Pulse Ox 98.2 F 81 20 126/78 H 98 05/29/17 15:40 05/29/17 15:40 05/29/17 15:40 05/29/17 15:40 05/29/17 15:40 Discharge - Discharge Clinical Impression: Rectal bleed Condition: Stable Disposition: HOME, SELF-CARE Instructions: Rectal Bleeding, Unclear Cause ([facility]) Additional Instructions: Follow up with your physician tomorrow for further care or return to the ED IMMEDIATELY if symptoms worsen or new concerns occur. If you cannot afford to follow up with your primary care physician a list of low cost clinics have been provided at the end of your discharge papers as well. Referrals: GIANCARLO CHANCE MD [Primary Care Provider] - Follow up as needed
== END 2017-05-29 16:27 | disposition home or self-care (01) ==
LOC: ER 15:35
DX: R19.5 Other fecal abnormalities (principal); F17.200 Nicotine dependence, unspecified, uncomplicated
CPT/HCPCS: 99283

== ENCOUNTER 2017-07-16 11:15 | Emergency (ER) | payer MEDICAID ==
[2017-07-16 11:23] VITALS: BP 114/82
--- NOTE | 2017-07-16 12:07 | ER Document Report ---
HPI - HPI Patient complains to provider of: eye complaint Pain Level: 1 Context: Patient is a 32-year-old male who presents emergency department complaining of a swollen blood vessel in his right eye. Patient states that he noticed it this morning. He denies any direct trauma, fall, eye pain, vision changes, purulent drainage. States that yesterday he did have some foods that upset his stomach so he threw up once. Otherwise he denies any fevers or chills. - CONSTITUTIONAL Constitutional: DENIES: Fever, Chills - EENT EENT: REPORTS: Eye problems - redness to rt eye, no akosua. DENIES: Sore Throat, Ear Pain - NEURO Neurology: DENIES: Headache, Weakness, Vision blurred, Dizzinesss / Vertigo - CARDIOVASCULAR Cardiovascular: DENIES: Chest pain - RESPIRATORY Respiratory: DENIES: Trouble Breathing, Coughing - GASTROINTESTINAL Gastrointestinal: DENIES: Abdominal Pain, Black / Bloody Stools - URINARY Urinary: DENIES: Dysuria, Urgency, Frequency - REPRODUCTIVE Reproductive: DENIES: : - MUSCULOSKELETAL Musculoskeletal: DENIES: Extremity pain Past Medical History - Social History Smoking Status: Current Some Day Smoker Chew tobacco use (# tins/day): No Frequency of alcohol use: Rare Drug Abuse: None Family History: Reviewed & Not Pertinent, Other - does not know Patient has suicidal ideation: No Patient has homicidal ideation: No Pulmonary Medical History: Reports: Hx Asthma Renal/ Medical History: Denies: Hx Peritoneal Dialysis GI Medical History: Reports: Hx Irritable Bowel - constipation Psychiatric Medical History: Reports: Hx Anxiety, Hx Depression, Hx Personality Disorder, Hx Schizophrenia Past Surgical History: Reports: Hx Abdominal Surgery, Hx Appendectomy, Hx Orthopedic Surgery - finger - Immunizations Immunizations up to date: Yes Hx Diphtheria, Pertussis, Tetanus Vaccination: Yes - 2012 Hx Pneumococcal Vaccination: 08/23/00 Vertical Provider Document - CONSTITUTIONAL Agree With Documented VS: Yes Notes: PHYSICAL EXAM GENERAL: Alert, interacts well. HEAD: Normocephalic, atraumatic. EYES: Pupils equal, round, and reactive to light. Extraocular movements intact. Evidence of a small dilated blood vessel within the conjunctive a been no evidence of conjunctival hemorrhage, injection, purulent drainage NEUROLOGICAL: Alert and oriented x4. Normal speech. PSYCH: Normal affect, normal mood. SKIN: Warm, dry, normal turgor. No rashes or lesions noted. - INFECTION CONTROL TRAVEL OUTSIDE OF THE [place] IN LAST 30 DAYS: No - RESPIRATORY O2 Sat by Pulse Oximetry: 96 Course - Re-evaluation Re-evalutation: 07/16/17 12:06 Patient is a 32-year-old male who is hemodynamically stable, no acute distress afebrile. Benign physical exam with findings consistent with subconjunctival hemorrhage. Physical exam with extraocular motion intact in pupils equal and reactive to light. Visual acuity intact. No evidence of infection at this time. Discussed with patient findings and otherwise stable for discharge. - Vital Signs Vital signs: Temp Pulse Resp BP Pulse Ox 97.9 F 81 18 114/82 96 07/16/17 11:22 07/16/17 11:22 07/16/17 11:22 07/16/17 11:22 07/16/17 11:22 Discharge - Discharge Clinical Impression: eye complaint Condition: Good Disposition: HOME, SELF-CARE Instructions: Subconjunctival Hemorrhage ([facility]) Referrals: GIANCARLO CHANCE MD [Primary Care Provider] - Follow up as needed
== END 2017-07-16 12:11 | disposition home or self-care (01) ==
LOC: ER 11:15
DX: H57.11 Ocular pain, right eye (principal); F17.200 Nicotine dependence, unspecified, uncomplicated
CPT/HCPCS: 99282

== ENCOUNTER 2017-07-21 13:14 | Emergency (ER) | payer MEDICAID ==
[2017-07-21 14:04] VITALS: BP 120/73
[2017-07-21 15:33] LABS: ABSOLUTE EOSINOPHILS # (AUTO) 0.2 10^3/uL (0.0-0.6); ABSOLUTE LYMPHOCYTES (AUTO) 1.2 10^3/uL (0.5-4.7); ABSOLUTE MONOCYTES (AUTO) 0.3 10^3/uL (0.1-1.4); ABSOLUTE NEUT (AUTO) 1.9 10^3/uL (1.7-8.2); BASOPHILS % (AUTO) 0.3 % (0-2); EOSINOPHILS % (AUTO) 5.9 % (0-6); HEMATOCRIT 44.7 % (37.9-51.0); HEMOGLOBIN 15.3 g/dL (13.5-17.0); HGB HCT DIFFERENCE 1.2; LYMPHOCYTES % (AUTO) 33.3 % (13-45); MEAN CORPUSCULAR HEMOGLOBIN 27.9 pg (27.0-33.4); MEAN CORPUSCULAR HGB CONC 34.1 g/dL (32.0-36.0); MEAN CORPUSCULAR VOLUME 82 fl (80-97); MONOCYTES % (AUTO) 7.7 % (3-13); RED BLOOD COUNT 5.47 10^6/uL (4.35-5.55); RED CELL DISTRIBUTION WIDTH 14.2 % (11.5-14.0); SEGMENTED NEUTROPHILS % (AUTO) 52.8 % (42-78); WHITE BLOOD COUNT 3.6 10^3/uL (4.0-10.5)
--- NOTE | 2017-07-21 15:40 | RADIOLOGY REPORT (SQ) ---
EXAM DESCRIPTION: CT ABD/PELVIS NO ORAL OR IV COMPLETED DATE/TIME: 07/21/2017 3:23 pm REASON FOR STUDY: pain COMPARISON: 01/20/2014 TECHNIQUE: CT scan of the abdomen and pelvis performed without intravenous or oral contrast. Images reviewed with lung, soft tissue, and bone windows. Reconstructed coronal and sagittal MPR images revi ewed. All images stored on PACS. All CT scanners at this facility use dose modulation, iterative reconstruction, and/or weight based d osing when appropriate to reduce radiation dose to as low as reasonably achievable (ALARA). [facility]: Dose Right [facility]: CareDose [facility]: Dose Right [facility]: Teradose 4D [facility]: Skribit RADIATION DOSE: 4.8mGy. LIMITATIONS: The study is limited by lack contrast and paucity of intra-abdominal fat. FINDINGS: LOWER CHEST: No significant findings. No nodules or infiltrates. NON-CONTRASTED LIVER, SPLEEN, ADRENALS: Evaluation limited by lack of IV contrast. No identified sign ificant masses. PANCREAS: No masses. No peripancreatic inflammatory changes. GALLBLADDER: Surgically absent. RIGHT KIDNEY AND URETER: No suspicious masses. Assessment limited by lack of IV contrast. No signif icant calcifications. No hydronephrosis or hydroureter. LEFT KIDNEY AND URETER: No suspicious masses. Assessment limited by lack of IV contrast. No signifi cant calcifications. No hydronephrosis or hydroureter. AORTA AND RETROPERITONEUM: No aneurysm. No retroperitoneal masses or adenopathy. BOWEL AND PERITONEAL CAVITY: No obvious masses or inflammatory changes. No free fluid. APPENDIX: Normal. PELVIS, BLADDER, AND ABDOMINAL WALL:No abnormal masses. No free fluid. Bladder normal. BONES: No significant findings. OTHER: No other significant finding. IMPRESSION: Study limited by lack of contrast and lack of fat. There are no findings that explain t he patient's pain. COMMENT: Quality ID # [id number]: Final reports with documentation of one or more dose reduction techniques (e.g., Automated exposure control, adjustment of the mA and/or kV according to patient size, use of iterative reconstruction technique) TECHNICAL DOCUMENTATION: JOB ID: [id number]- All Rights Reserved
[2017-07-21 15:47] LABS: ALANINE AMINOTRANSFERASE 29 U/L (21-72); ALBUMIN 5.3 g/dL (3.5-5.0); ALKALINE PHOSPHATASE 83 U/L (38-126); ANION GAP 15 (5-19); ASPARTATE AMINO TRANSFERASE 29 U/L (17-59); BILIRUBIN,DIRECT 0.6 mg/dL (0.0-0.4); BILIRUBIN,TOTAL 2.6 mg/dL (0.2-1.3); BLOOD UREA NITROGEN 19 mg/dL (7-20); CALCIUM 9.8 mg/dL (8.4-10.2); CARBON DIOXIDE 27 mmol/L (22-30); CHLORIDE 103 mmol/L (98-107); CREATININE RESULT 1.03 mg/dL (0.52-1.25); GLUCOSE 81 mg/dL (75-110); POTASSIUM 4.5 mmol/L (3.6-5.0); SODIUM 144.7 mmol/L (137-145); TOTAL PROTEIN 8.4 g/dL (6.3-8.2)
--- NOTE | 2017-07-21 16:54 | ER Document Report ---
ED General - General Chief Complaint: Rectal Bleeding Stated Complaint: BLOOD IN STOOLS Time Seen by Provider: 07/21/17 15:01 Mode of Arrival: Ambulatory Information source: Patient Notes: Patient presents with lower abdominal pressure. He denies he has any pain. He states his only pressure. States nothing makes it better or worse. It does not radiate. He has had no problems with urination. He states he did have some small amount of blood in his stool today. No vomiting. No rashes. Symptoms have been intermittent. TRAVEL OUTSIDE OF THE [place] IN LAST 30 DAYS: No - Related Data Allergies/Adverse Reactions: No Known Allergies Allergy (Verified 07/16/17 11:21) Past Medical History - General Information source: Patient - Social History Smoking Status: Current Some Day Smoker Chew tobacco use (# tins/day): No Frequency of alcohol use: Rare Drug Abuse: None Family History: Reviewed & Not Pertinent, Other - does not know Patient has suicidal ideation: No Patient has homicidal ideation: No Pulmonary Medical History: Reports: Hx Asthma Renal/ Medical History: Denies: Hx Peritoneal Dialysis GI Medical History: Reports: Hx Irritable Bowel - constipation Psychiatric Medical History: Reports: Hx Anxiety, Hx Depression, Hx Personality Disorder, Hx Schizophrenia Past Surgical History: Reports: Hx Abdominal Surgery, Hx Appendectomy, Hx Orthopedic Surgery - finger - Immunizations Immunizations up to date: Yes Hx Diphtheria, Pertussis, Tetanus Vaccination: Yes - 2012 Hx Pneumococcal Vaccination: 08/23/00 Review of Systems - Review of Systems Constitutional: denies: Chills, Fever Cardiovascular: denies: Chest pain, Palpitations Respiratory: denies: Cough, Short of breath Gastrointestinal: denies: Nausea, Vomiting -: Yes All other systems reviewed and negative Physical Exam - Vital signs Vitals: Temp Pulse Resp BP Pulse Ox 98.2 F 85 18 120/73 100 07/21/17 14:00 07/21/17 14:00 07/21/17 14:00 07/21/17 14:00 07/21/17 14:00 Interpretation: Normal - General General appearance: Appears well, Alert - HEENT Head: Normocephalic, Atraumatic Eyes: Normal Pupils: PERRL - Respiratory Respiratory status: No respiratory distress Chest status: Nontender Breath sounds: Normal Chest palpation: Normal - Cardiovascular Rhythm: Regular Heart sounds: Normal auscultation Murmur: No - Abdominal Inspection: Normal Distension: No distension Bowel sounds: Normal Tenderness: Tender, Other - Mild diffuse tenderness with voluntary guarding. There are no surgical abdominal signs. Organomegaly: No organomegaly - Back Back: Normal, Nontender - Extremities General upper extremity: Normal inspection, Nontender, Normal color, Normal ROM , Normal temperature General lower extremity: Normal inspection, Nontender, Normal color, Normal ROM , Normal temperature, Normal weight bearing. No: Esdras's sign - Neurological Neuro grossly intact: Yes Cognition: Normal Orientation: AAOx4 [place] Coma Scale Eye Opening: Spontaneous Jasmin Coma Scale Verbal: Oriented Jasmin Coma Scale Motor: Obeys Commands Jasmin Coma Scale Total: 15 Speech: Normal Motor strength normal: LUE, RUE, LLE, RLE Sensory: Normal - Psychological Associated symptoms: Normal affect, Normal mood - Skin Skin Temperature: Warm Skin Moisture: Dry Skin Color: Normal Course - Vital Signs Vital signs: Temp Pulse Resp BP Pulse Ox 98.2 F 85 18 120/73 100 07/21/17 14:00 07/21/17 14:00 07/21/17 14:00 07/21/17 14:00 07/21/17 14:00 - Laboratory Result Diagrams: 07/21/17 15:10 07/21/17 15:10 Laboratory results interpreted by me: 07/21/17 07/21/17 15:10 15:10 WBC 3.6 L RDW 14.2 H Total Bilirubin 2.6 H Direct Bilirubin 0.6 H Total Protein 8.4 H Albumin 5.3 H - Diagnostic Test Radiology reviewed: Image reviewed, Reports reviewed - CT the abdomen is unremarkable for any acute pathology Discharge - Discharge Clinical Impression: Blood in stool, Abdominal pressure Condition: Stable Disposition: HOME, SELF-CARE Instructions: Stool Blood Test ([facility]) Additional Instructions: Please call your doctor as soon as possible to arrange for a recheck of the blood in your stool. You may need a colonoscopy to further evaluate this.
== END 2017-07-21 17:01 | disposition home or self-care (01) ==
LOC: ER 13:14
DX: K92.1 Melena (principal); R19.8 Other specified symptoms and signs involving the digestive system and abdomen; R10.817 Generalized abdominal tenderness; J45.909 Unspecified asthma, uncomplicated; F17.200 Nicotine dependence, unspecified, uncomplicated; Z87.19 Personal history of other diseases of the digestive system; Z90.49 Acquired absence of other specified parts of digestive tract
CPT/HCPCS: 36415; 74176; 80053; 85025; 99284

== ENCOUNTER 2017-07-22 03:28 | Emergency (ER) | payer MEDICAID ==
[2017-07-22 03:39] VITALS: BP 129/90
--- NOTE | 2017-07-22 03:45 | ER Document Report ---
HPI - HPI Patient complains to provider of: Sore throat Onset: This morning Onset/Duration: Gradual, Better Pain Level: 3 Context: 32-year-old male who has been sitting in the gazebo tonight waiting for the transport van to get back to come [address] complaining of sore throat he thinks because of being outside. No fever or chills. Chest pain shortness of breath. No cough. No abdominal pain. Associated Symptoms: None Exacerbated by: Denies Relieved by: Denies Similar symptoms previously: Yes Recently seen / treated by doctor: No - ROS ROS below otherwise negative: Yes Systems Reviewed and Negative: Yes All other systems reviewed and negative - REPRODUCTIVE Reproductive: DENIES: : Past Medical History - General Information source: Patient - Social History Smoking Status: Never Smoker Frequency of alcohol use: None Drug Abuse: None Lives with: Other - was staying at friends until last night but does have family on [address] Family History: Reviewed & Not Pertinent, Other - does not know Pulmonary Medical History: Reports: Hx Asthma Renal/ Medical History: Denies: Hx Peritoneal Dialysis GI Medical History: Reports: Hx Irritable Bowel - constipation Psychiatric Medical History: Reports: Hx Anxiety, Hx Depression, Hx Personality Disorder, Hx Schizophrenia Past Surgical History: Reports: Hx Abdominal Surgery, Hx Appendectomy, Hx Orthopedic Surgery - finger - Immunizations Immunizations up to date: Yes Hx Diphtheria, Pertussis, Tetanus Vaccination: Yes - 2012 Hx Pneumococcal Vaccination: 08/23/00 Vertical Provider Document - CONSTITUTIONAL Agree With Documented VS: Yes - pulse 46 at pivot Exam Limitations: No Limitations General Appearance: No Apparent Distress - INFECTION CONTROL TRAVEL OUTSIDE OF THE [place] IN LAST 30 DAYS: No - HEENT HEENT: Normal ENT Exam, Normocephalic. negative: Tympanic Membrane Red - NECK Neck: Supple. negative: Lymphadenopathy-Left, Lymphadenopathy-Right - RESPIRATORY Respiratory: Breath Sounds Normal, No Respiratory Distress O2 Sat by Pulse Oximetry: 98 - CARDIOVASCULAR Cardiovascular: Regular Rate, Regular Rhythm - NEURO Level of Consciousness: Awake, Alert, Appropriate - DERM Integumentary: Warm, Dry Course - Re-evaluation Re-evalutation: 07/22/17 04:07 has had pulse in the 50's in ER in past, come in frequently with minor complaints. most likely homeless. - Vital Signs Vital signs: Temp Pulse Resp BP Pulse Ox 97.4 F 46 L 18 129/90 H 98 11/30/17 03:29 07/22/17 03:29 07/22/17 03:29 07/22/17 03:29 07/22/17 03:29 Discharge - Discharge Clinical Impression: Sore throat Condition: Good Disposition: HOME, SELF-CARE Instructions: Family Physicians / Practices, Sore Throat ([facility]) Additional Instructions: to er any concerns cough drop for sore throat given to you Referrals: GIANCARLO CHANCE MD [Primary Care Provider] - Follow up as needed
== END 2017-07-22 04:07 | disposition home or self-care (01) ==
LOC: ER 03:28
DX: J02.9 Acute pharyngitis, unspecified (principal)
CPT/HCPCS: 99282

== ENCOUNTER 2017-08-03 11:35 | Emergency (ER) | payer MEDICAID ==
[2017-08-03 11:46] VITALS: BP 110/66
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
--- NOTE | 2017-08-05 13:08 | EKG REPORT ---
SEVERITY:- ABNORMAL ECG - SINUS RHYTHM RIGHT ATRIAL ABNORMALITY : Confirmed by: Fernando Delarosa 05-Aug-2017 13:07:59
== END 2017-08-03 12:05 | disposition home or self-care (01) ==
LOC: ER 11:35
DX: F41.9 Anxiety disorder, unspecified (principal); R07.89 Other chest pain; J45.909 Unspecified asthma, uncomplicated; F17.200 Nicotine dependence, unspecified, uncomplicated
CPT/HCPCS: 93005; 93010; 99284

== ENCOUNTER 2017-08-05 23:13 | Emergency (ER) | payer MEDICAID ==
[2017-08-05 23:28] VITALS: BP 124/66
--- NOTE | 2017-08-05 23:58 | ER Document Report ---
HPI - HPI Patient complains to provider of: Ankle injury Onset: Just prior to arrival Onset/Duration: Better Quality of pain: No pain Pain Level: Denies Context: Patient states that he was walking and accidentally stepped on something injuring his left ankle. Patient states that the ankle now feels better and he does not have any pain. Patient additionally has itching behind his left ear that he would like evaluated as well. Associated Symptoms: Other - Left ankle injury, now resolved Exacerbated by: Denies Relieved by: Denies Similar symptoms previously: Yes Recently seen / treated by doctor: No - ROS ROS below otherwise negative: Yes Systems Reviewed and Negative: Yes All other systems reviewed and negative - CONSTITUTIONAL Constitutional: DENIES: Fever - NEURO Neurology: DENIES: Headache - RESPIRATORY Respiratory: DENIES: Coughing - GASTROINTESTINAL Gastrointestinal: DENIES: Nausea - REPRODUCTIVE Reproductive: DENIES: : - MUSCULOSKELETAL Musculoskeletal: DENIES: Extremity pain, Back Pain - DERM Skin Color: Normal Notes: Dry skin Past Medical History - General Information source: Patient - Social History Smoking Status: Current Every Day Smoker Smoking Education Provided: Yes Frequency of alcohol use: Occasional Drug Abuse: None Occupation: None Lives with: Homeless Family History: Reviewed & Not Pertinent, Other - does not know Pulmonary Medical History: Reports: Hx Asthma Renal/ Medical History: Denies: Hx Peritoneal Dialysis GI Medical History: Reports: Hx Irritable Bowel - constipation Psychiatric Medical History: Reports: Hx Anxiety, Hx Bipolar Disorder, Hx Depression, Hx Personality Disorder, Hx Schizophrenia Past Surgical History: Reports: Hx Abdominal Surgery, Hx Appendectomy, Hx Cholecystectomy, Hx Orthopedic Surgery - finger - Immunizations Immunizations up to date: Yes Hx Diphtheria, Pertussis, Tetanus Vaccination: Yes - 2012 Hx Pneumococcal Vaccination: 08/23/00 Vertical Provider Document - CONSTITUTIONAL Agree With Documented VS: Yes Exam Limitations: No Limitations General Appearance: WD/WN, No Apparent Distress - INFECTION CONTROL TRAVEL OUTSIDE OF THE [place] IN LAST 30 DAYS: No - HEENT HEENT: Atraumatic, Normocephalic - NECK Neck: Normal Inspection - RESPIRATORY Respiratory: Breath Sounds Normal, No Respiratory Distress O2 Sat by Pulse Oximetry: 100 - CARDIOVASCULAR Cardiovascular: Regular Rate, Regular Rhythm, No Murmur - BACK Back: Normal Inspection - MUSCULOSKELETAL/EXTREMETIES Musculoskeletal/Extremeties: MAEW, FROM, Non-Tender, No Edema - NEURO Level of Consciousness: Awake, Alert, Appropriate Motor/Sensory: No Motor Deficit - DERM Integumentary: Warm, Dry Notes: Dry skin concerning for eczema to bilateral forearms. Patient with dry flaking skin to the left postauricular area. Course - Re-evaluation Re-evalutation: 08/06/17 00:03 Patient is very well-known to the department and has a history of frequent visits whenever the weather gets cold. Patient presently denies any ankle pain. Patient agreeable with plan to defer any imaging at this time. Patient advised to use emollients to help moisturize his skin to prevent drying and flaking. - Vital Signs Vital signs: Temp Pulse Resp BP Pulse Ox 97.2 F 47 L 18 124/66 100 08/05/17 23:14 08/05/17 23:14 08/05/17 23:14 08/05/17 23:14 08/05/17 23:14 Discharge - Discharge Clinical Impression: Resolved ankle pain, Dry skin dermatitis Condition: Stable Disposition: HOME, SELF-CARE Instructions: Acetaminophen, Atopic Dermatitis (Eczema) ([facility]), Steroid Medication Additional Instructions: Return immediately for any new or worsening symptoms Followup with your primary care provider, call tomorrow to make a followup appointment Apply moisturizers to skin frequently to help with dry flaky skin Prescriptions: Triamcinolone Acetonide [Aristocort 0.1% Cream] 1 applic TP TID #60 gm Referrals: GIANCARLO CHANCE MD [ACTIVE STAFF] - Follow up as needed
== END 2017-08-06 00:14 | disposition home or self-care (01) ==
LOC: ER 23:13
DX: S99.912A Unspecified injury of left ankle, initial encounter (principal); W22.8XXA Striking against or struck by other objects, initial encounter; Y93.01 Activity, walking, marching and hiking; L85.3 Xerosis cutis; J45.909 Unspecified asthma, uncomplicated; F17.200 Nicotine dependence, unspecified, uncomplicated; Z71.6 Tobacco abuse counseling
CPT/HCPCS: 99283

== ENCOUNTER 2017-08-17 02:55 | Emergency (ER) | payer MEDICAID, OTHER ==
[2017-08-17 03:06] VITALS: BP 134/66
--- NOTE | 2017-08-17 04:35 | ER Document Report ---
ED General - General Chief Complaint: Ear Pain Stated Complaint: EAR ACHE Time Seen by Provider: 08/17/17 04:23 Notes: Patient is a 32-year-old male well-known to the ED who presents with complaint of some pain in his right ear. Patient says he thinks he might scraped his ear when he was cleaning it. He says the pain has since resolved and he feels well. No recent runny nose cough or congestion. No fevers. No other complaints at this time. TRAVEL OUTSIDE OF THE [place] IN LAST 30 DAYS: No - Related Data Allergies/Adverse Reactions: No Known Allergies Allergy (Verified 08/03/17 11:39) Past Medical History - Social History Smoking Status: Unknown if Ever Smoked Frequency of alcohol use: None Drug Abuse: None Family History: Reviewed & Not Pertinent, Other - does not know Pulmonary Medical History: Reports: Hx Asthma Renal/ Medical History: Denies: Hx Peritoneal Dialysis GI Medical History: Reports: Hx Irritable Bowel - constipation Psychiatric Medical History: Reports: Hx Anxiety, Hx Bipolar Disorder, Hx Depression, Hx Personality Disorder, Hx Schizophrenia Past Surgical History: Reports: Hx Abdominal Surgery, Hx Appendectomy, Hx Cholecystectomy, Hx Orthopedic Surgery - finger - Immunizations Immunizations up to date: Yes Hx Diphtheria, Pertussis, Tetanus Vaccination: Yes - 2012 Hx Pneumococcal Vaccination: 08/23/00 Review of Systems - Review of Systems Notes: My Normal Review Basic REVIEW OF SYSTEMS: CONSTITUTIONAL : Denies fever, chills, or sweats. Denies recent illness. EENT: Right ear pain. CARDIOVASCULAR: Denies chest pain. RESPIRATORY: Denies cough, cold, or chest congestion. Denies shortness of breath, difficulty breathing, or wheezing. GASTROINTESTINAL: Denies abdominal pain. Denies nausea, vomiting, or diarrhea. Denies constipation. Last BM: MUSCULOSKELETAL: Denies neck or back pain or joint pain or swelling. SKIN: Denies rash or skin lesions. NEUROLOGICAL: Denies altered mental status or loss of consciousness. Denies headache. Denies weakness or paralysis or loss of use of either side. Denies problems with gait or speech. Denies sensory or motor loss. ALL OTHER SYSTEMS REVIEWED AND NEGATIVE. Physical Exam - Vital signs Vitals: Temp Pulse Resp BP Pulse Ox 98.6 F 70 18 134/66 H 96 08/17/17 03:02 08/17/17 03:02 08/17/17 03:02 08/17/17 03:02 08/17/17 03:02 - Notes Notes: General Appearance: Well nourished, alert, cooperative, no acute distress, no obvious discomfort. Vitals: reviewed, See vital signs table. Head: no swelling or tenderness to the head Eyes: PERRL, EOMI, Conjuctiva clear Ears: Normal appearing tympanic membranes bilaterally. Mouth: No decreasd moisture Throat: No tonsillar inflammation, No airway obstruction, No lymphadenopathy Neuro: speech clear, oriented x 3, normal affect, responds appropriately to questions. Course - Re-evaluation Re-evalutation: 08/18/17 05:19 Patient's evaluation of his ears is normal. His symptoms have since resolved. He looks well. I feel he is safe to be discharged home. Encourage him return to ER if he has any redness, swelling, or recurrent pain to the ear. Dictation of this chart was performed using voice recognition software; therefore, there may be some unintended grammatical errors. - Vital Signs Vital signs: Temp Pulse Resp BP Pulse Ox 98.6 F 70 18 134/66 H 96 08/17/17 03:02 08/17/17 03:02 08/17/17 03:02 08/17/17 03:02 08/17/17 03:02 Discharge - Discharge Clinical Impression: Ear pain, right Condition: Good Disposition: HOME, SELF-CARE Additional Instructions: Please return to the ER if you have worsening ear pain, fevers, diffciulty breathing or swallowing, vomiting, or if you feel unwell. Referrals: GIANCARLO CHANCE MD [Primary Care Provider] - Follow up as needed
== END 2017-08-17 05:00 | disposition home or self-care (01) ==
LOC: ER 02:55
DX: H92.01 Otalgia, right ear (principal); J45.909 Unspecified asthma, uncomplicated
CPT/HCPCS: 99282

== ENCOUNTER 2017-08-17 22:01 | Emergency (ER) | payer MEDICAID ==
[2017-08-17 22:09] VITALS: BP 105/73
[2017-08-17] MEDS ORDERED: FAMOTIDINE 20 MG TABLET PO ONE (22:39)
--- NOTE | 2017-08-17 22:41 | ER Document Report ---
ED General - General Chief Complaint: Abdominal Pain Stated Complaint: ABDOMINAL PAIN Time Seen by Provider: 08/17/17 22:35 Notes: Patient is a 32-year-old male who presents with complaint of an episode of some queasy feeling in his abdomen after he drank Gatorade. He says his symptoms have not resolved. His first take Prilosec but has ran out. He says he will get his prescription filled soon. Denies any fevers. No vomiting. No diarrhea. He says he is completely asymptomatic this time the symptoms are resolved. TRAVEL OUTSIDE OF THE [place] IN LAST 30 DAYS: No - Related Data Allergies/Adverse Reactions: No Known Allergies Allergy (Verified 08/03/17 11:39) Past Medical History - Social History Smoking Status: Unknown if Ever Smoked Frequency of alcohol use: None Drug Abuse: None Family History: Reviewed & Not Pertinent, Other - does not know Pulmonary Medical History: Reports: Hx Asthma Renal/ Medical History: Denies: Hx Peritoneal Dialysis GI Medical History: Reports: Hx Irritable Bowel - constipation Psychiatric Medical History: Reports: Hx Anxiety, Hx Bipolar Disorder, Hx Depression, Hx Personality Disorder, Hx Schizophrenia Past Surgical History: Reports: Hx Abdominal Surgery, Hx Appendectomy, Hx Cholecystectomy, Hx Orthopedic Surgery - finger - Immunizations Immunizations up to date: Yes Hx Diphtheria, Pertussis, Tetanus Vaccination: Yes - 2012 Hx Pneumococcal Vaccination: 08/23/00 Review of Systems - Review of Systems Notes: My Normal Review Basic REVIEW OF SYSTEMS: CONSTITUTIONAL : Denies fever, chills, or sweats. Denies recent illness. EENT: Denies eye, ear, throat, or mouth pain or symptoms. Denies nasal or sinus congestion. RESPIRATORY: Denies cough, cold, or chest congestion. Denies shortness of breath, difficulty breathing, or wheezing. GASTROINTESTINAL: Mild epigastric abdominal pain. Some nausea but no vomiting. GENITOURINARY: Denies difficulty urinating, painful urination, burning, frequency, or blood in urine. MUSCULOSKELETAL: Denies neck or back pain or joint pain or swelling. SKIN: Denies rash or skin lesions. NEUROLOGICAL: Denies altered mental status or loss of consciousness. Denies headache. Denies weakness or paralysis or loss of use of either side. Denies problems with gait or speech. Denies sensory or motor loss. ALL OTHER SYSTEMS REVIEWED AND NEGATIVE. Physical Exam - Vital signs Vitals: Temp Pulse Resp BP Pulse Ox 98.3 F 75 20 105/73 99 08/17/17 22:09 08/17/17 22:09 08/17/17 22:09 08/17/17 22:09 08/17/17 22:09 - Notes Notes: General Appearance: Well nourished, alert, cooperative, no acute distress, no obvious discomfort. Well-appearing. Vitals: reviewed, See vital signs table. Eyes: PERRL, EOMI, Conjuctiva clear Abdomen: Normal BS, soft, No rigidity, No abdominal tenderness, No guarding, no rebound, Extremities: strength 5/5 in all extremities, good pulses in all extremities, no edema. Skin: warm, dry, appropriate color, no rash Neuro: speech clear, oriented x 3, normal affect, responds appropriately to questions. Course - Re-evaluation Re-evalutation: 08/17/17 22:58 Patient is completely asymptomatic at this time. I did give him a dose of Pepcid. I encouraged him get his Prilosec prescription filled. I encouraged him the bland foods and to stick with clear liquids. Patient agrees with plan will be discharged home. Encouraged her return to ER if he has worsening pain, vomiting, or feels unwell. Dictation of this chart was performed using voice recognition software; therefore, there may be some unintended grammatical errors. - Vital Signs Vital signs: Temp Pulse Resp BP Pulse Ox 98.3 F 75 20 105/73 99 08/17/17 22:09 08/17/17 22:09 08/17/17 22:09 08/17/17 22:09 08/17/17 22:09 Discharge - Discharge Clinical Impression: Abdominal pain Qualifiers: Abdominal location: epigastric Qualified Code(s): R10.13 - Epigastric pain Condition: Good Disposition: HOME, SELF-CARE Additional Instructions: Please avoid spicy foods and fried foods. please drink mainly water for the next 24 hours. Return to the ER if you have abdominal pain, vomiting, fevers, or further concerns.
== END 2017-08-17 23:16 | disposition home or self-care (01) ==
LOC: ER 22:01
DX: R10.13 Epigastric pain (principal)
CPT/HCPCS: 99282; 99283; J3490

== ENCOUNTER 2017-08-18 09:27 | Emergency (ER) | payer MEDICAID ==
[2017-08-18 09:34] VITALS: BP 119/66
[2017-08-18] MEDS ORDERED: DOCUSATE SODIUM 100 MG CAPSULE PO ONE (09:38)
--- NOTE | 2017-08-18 09:40 | ER Document Report ---
ED General - General Chief Complaint: Lower Abdominal Pain Stated Complaint: ABDOMINAL PAIN Time Seen by Provider: 08/18/17 09:36 Notes: 32-year-old male here with complaints of "feeling gassy in my stomach" that started approximately 1 hour ago. He states he was at [employer] eating and he felt a bit gassy. While in the emergency department waiting room, he had a bowel movement and feels better. He has not yet tried anything for the symptoms. He denies any nausea vomiting diarrhea abdominal pain. TRAVEL OUTSIDE OF THE [place] IN LAST 30 DAYS: No - Related Data Allergies/Adverse Reactions: No Known Allergies Allergy (Verified 08/18/17 09:28) Past Medical History - Social History Smoking Status: Smoker,Current Status Unk Family History: Reviewed & Not Pertinent, Other - does not know Pulmonary Medical History: Reports: Hx Asthma Renal/ Medical History: Denies: Hx Peritoneal Dialysis GI Medical History: Reports: Hx Irritable Bowel - constipation Psychiatric Medical History: Reports: Hx Anxiety, Hx Bipolar Disorder, Hx Depression, Hx Personality Disorder, Hx Schizophrenia Past Surgical History: Reports: Hx Abdominal Surgery, Hx Appendectomy, Hx Cholecystectomy, Hx Orthopedic Surgery - finger - Immunizations Immunizations up to date: Yes Hx Diphtheria, Pertussis, Tetanus Vaccination: Yes - 2012 Hx Pneumococcal Vaccination: 08/23/00 Review of Systems - Review of Systems Notes: See history of present illness for pertinent positive review of systems; otherwise all review of systems have been reviewed and are negative Physical Exam - Vital signs Vitals: Temp Pulse Resp BP Pulse Ox 97.6 F 78 18 119/66 99 08/18/17 09:34 08/18/17 09:34 08/18/17 09:34 08/18/17 09:34 08/18/17 09:34 - Notes Notes: PHYSICAL EXAMINATION: GENERAL: Well-appearing and in no acute distress. HEAD: Atraumatic, normocephalic. EYES: Pupils equal round and reactive to light, extraocular movements intact, sclera anicteric, conjunctiva are normal. ENT: nares patent, oropharynx clear without exudates. Moist mucous membranes. NECK: Normal range of motion, supple without lymphadenopathy LUNGS: CTAB and equal. No wheezes rales or rhonchi. HEART: Regular rate and rhythm without murmurs ABDOMEN: Soft, no tenderness. No guarding, no rebound. In fact states, "it tickles" upon palpation EXTREMITIES: Normal range of motion, no pitting edema. No cyanosis. NEUROLOGICAL: Cranial nerves grossly intact. Normal sensory/motor exams. PSYCH: Normal mood, normal affect. SKIN: Warm, Dry, normal turgor, no rashes or lesions noted Course - Re-evaluation Re-evalutation: 08/18/17 09:39 MEDICAL DECISION MAKING: Concern for excessive flatulence which has now resolved after he had bowel movement a few minutes ago Will give him a dose of Colace and prescription for same His abdominal exam is unremarkable and he is instructed follow-up PCP next day or few Patient understands and agrees to the plan of care - Vital Signs Vital signs: Temp Pulse Resp BP Pulse Ox 97.6 F 78 18 119/66 99 08/18/17 09:34 08/18/17 09:34 08/18/17 09:34 08/18/17 09:34 08/18/17 09:34 Discharge - Discharge Clinical Impression: Flatus Condition: Good Disposition: HOME, SELF-CARE Additional Instructions: Use of the prescribed medication as needed for your symptoms. You were seen in the emergency department at [facility]. If you were given any sedating medications, be sure not to operate heavy machinery (example - driving ) and be sure you are not too sedated to walk appropriately. Please followup with your primary physician in the next few days for further management/ evaluation. Please return to the emergency department for worsening of symptoms or any symptom that you deem to be concerning or life-threatening. Thank you for allowing us to be part of your care. Prescriptions: Docusate Sodium [Colace 100 mg Capsule] 100 mg PO DAILY #30 capsule
== END 2017-08-18 09:54 | disposition home or self-care (01) ==
LOC: ER 09:27
DX: R14.3 Flatulence (principal); J45.909 Unspecified asthma, uncomplicated; Z90.49 Acquired absence of other specified parts of digestive tract; Z87.19 Personal history of other diseases of the digestive system
CPT/HCPCS: 99283; J3490

== ENCOUNTER 2017-08-18 23:21 | Emergency (ER) | payer MEDICAID ==
[2017-08-19] MEDS ORDERED: IBUPROFEN 800 MG TABLET PO ONE (00:47)
[2017-08-19] MEDS ORDERED: LIDOCAINE 5% (700 MG) TRANSDERMAL ADH..PATCH TP ONE (00:48)
--- NOTE | 2017-08-19 00:52 | ER Document Report ---
HPI - HPI Patient complains to provider of: back pain Onset: Just prior to arrival Onset/Duration: Gradual Quality of pain: Achy Pain Level: 1 Context: Patient presents complaining of left upper back pain that started just prior to arrival. Patient denies any injury. Patient denies any cough or cold symptoms. Patient states pain is not too severe at this time. Associated Symptoms: Other - Left upper back tenderness. denies: Chest pain, Nonproductive cough, Fever Exacerbated by: Denies Relieved by: Denies Similar symptoms previously: No Recently seen / treated by doctor: No - ROS ROS below otherwise negative: Yes Systems Reviewed and Negative: Yes All other systems reviewed and negative - CONSTITUTIONAL Constitutional: DENIES: Fever, Chills - NEURO Neurology: DENIES: Weakness - RESPIRATORY Respiratory: DENIES: Trouble Breathing, Coughing - GASTROINTESTINAL Gastrointestinal: DENIES: Nausea - REPRODUCTIVE Reproductive: DENIES: : - MUSCULOSKELETAL Musculoskeletal: REPORTS: Back Pain. DENIES: Extremity pain - DERM Skin Color: Normal Skin Problems: None Past Medical History - General Information source: Patient - Social History Smoking Status: Never Smoker Frequency of alcohol use: Occasional Drug Abuse: None Occupation: none Family History: Reviewed & Not Pertinent, Other - does not know Patient has suicidal ideation: No Patient has homicidal ideation: No Pulmonary Medical History: Reports: Hx Asthma Renal/ Medical History: Denies: Hx Peritoneal Dialysis GI Medical History: Reports: Hx Irritable Bowel - constipation Psychiatric Medical History: Reports: Hx Anxiety, Hx Bipolar Disorder, Hx Depression, Hx Personality Disorder, Hx Schizophrenia Past Surgical History: Reports: Hx Abdominal Surgery, Hx Appendectomy, Hx Cholecystectomy, Hx Orthopedic Surgery - finger - Immunizations Immunizations up to date: Yes Hx Diphtheria, Pertussis, Tetanus Vaccination: Yes - 2012 Hx Pneumococcal Vaccination: 08/23/00 Vertical Provider Document - CONSTITUTIONAL Agree With Documented VS: Yes Exam Limitations: No Limitations General Appearance: WD/WN, No Apparent Distress - INFECTION CONTROL TRAVEL OUTSIDE OF THE [place] IN LAST 30 DAYS: No - HEENT HEENT: Atraumatic, Normocephalic - NECK Neck: Normal Inspection, Supple - RESPIRATORY Respiratory: Breath Sounds Normal, No Respiratory Distress, Chest Non-Tender O2 Sat by Pulse Oximetry: 99 - CARDIOVASCULAR Cardiovascular: Regular Rate, Regular Rhythm, No Murmur - BACK Back: Abnormal Inspection - Left upper thoracic back tenderness, no midline spinal tenderness, step-off or deformity. negative: CVA Tenderness-Right, CVA Tenderness-Left - MUSCULOSKELETAL/EXTREMETIES Musculoskeletal/Extremeties: RIGO MCBRIDE - NEURO Level of Consciousness: Awake, Alert, Appropriate Motor/Sensory: No Motor Deficit - DERM Integumentary: Warm, Dry, No Rash Course - Re-evaluation Re-evalutation: 08/19/17 Patient with findings concerning for musculoskeletal back pain, no concern for pneumonia at this time, respirations even and unlabored. Patient nontoxic in appearance. Patient is very well-known to this emergency department and comes in frequently when it is cold outside due to his homeless status. - Vital Signs Vital signs: Temp Pulse Resp BP Pulse Ox 97.8 F 58 L 18 109/69 99 08/18/17 23:28 08/18/17 23:28 08/18/17 23:28 08/18/17 23:28 08/18/17 23:28 Discharge - Discharge Clinical Impression: Muscle strain of left upper back Qualifiers: Encounter type: initial encounter Qualified Code(s): S29.012A - Strain of muscle and tendon of back wall of thorax, initial encounter Condition: Stable Disposition: HOME, SELF-CARE Instructions: Acetaminophen, Use of [id number] Ibuprofen ([facility]), Ice Packs ([facility]), Muscle Strain ([facility]), Warm Packs ([facility]) Additional Instructions: Return immediately for any new or worsening symptoms Followup with your primary care provider, call tomorrow to make a followup appointment You may take [id number] Tylenol or Motrin as directed for pain relief Referrals: GIANCARLO CHANCE MD [ACTIVE STAFF] - Follow up as needed
[2017-08-19 02:16] VITALS: BP 121/86
== END 2017-08-19 02:11 | disposition home or self-care (01) ==
LOC: ER 23:21
DX: S29.012A Strain of muscle and tendon of back wall of thorax, initial encounter (principal); X58.XXXA Exposure to other specified factors, initial encounter; Z90.49 Acquired absence of other specified parts of digestive tract
CPT/HCPCS: 99283; J3490

== ENCOUNTER 2017-08-25 09:15 | Emergency (ER) | payer MEDICAID ==
[2017-08-25 10:12] LABS: HEMATOCRIT 43.5 % (37.9-51.0); HEMOGLOBIN 14.4 g/dL (13.5-17.0); MEAN CORPUSCULAR HEMOGLOBIN 27.3 pg (27.0-33.4); MEAN CORPUSCULAR VOLUME 83 fl (80-97); PLATELET COUNT 211 10^3/uL (150-450); RED BLOOD COUNT 5.26 10^6/uL (4.35-5.55); RED CELL DISTRIBUTION WIDTH 13.9 % (11.5-14.0); WHITE BLOOD COUNT 2.6 10^3/uL (4.0-10.5)
[2017-08-25 10:31] LABS: ANION GAP 11 (5-19); BLOOD UREA NITROGEN 15 mg/dL (7-20); CALCIUM 10.1 mg/dL (8.4-10.2); CARBON DIOXIDE 30 mmol/L (22-30); CHLORIDE 105 mmol/L (98-107); GLUCOSE 94 mg/dL (75-110); POTASSIUM 4.3 mmol/L (3.6-5.0); SODIUM 146.2 mmol/L (137-145)
[2017-08-25 10:42] LABS: ABSOLUTE LYMPHOCYTES# (MANUAL) 1.2 10^3/uL (0.5-4.7); ABSOLUTE MONOCYTES # (MANUAL) 0.3 10^3/uL (0.1-1.4); ABSOLUTE NEUTROPHILS# (MANUAL) 0.8 10^3/uL (1.7-8.2); BASOPHILS % (MANUAL) 2 % (0-2); EOSINOPHILS % (MANUAL) 12 % (0-6); LYMPHOCYTES % (MANUAL) 37 % (13-45); MONOCYTES % (MANUAL) 11 % (3-13); PLATELET COMMENT ADEQUATE; RBC MORPHOLOGY COMMENT NORMO-CYTIC/CHROMIC; SEGMENTED NEUTROPHILS % (MAN) 30 % (42-78); TOTAL CELLS COUNTED 100
--- NOTE | 2017-08-25 11:19 | ER Document Report ---
ED Dizziness/Weakness - General Chief Complaint: General Weakness Stated Complaint: WEAKNESS Time Seen by Provider: 08/25/17 09:47 Mode of Arrival: Ambulatory Information source: Patient Notes: Patient presents stating that he "just does not feel right". He denies any type of cough or cold. He says he feels somewhat weak. Patient denies any vomiting or diarrhea. He states that the symptoms of been intermittent. He does not know of anything that makes his symptoms better or worse. There is no known radiation of symptoms. The symptoms of been mild to moderate. TRAVEL OUTSIDE OF THE [place] IN LAST 30 DAYS: No - Related Data Allergies/Adverse Reactions: No Known Allergies Allergy (Verified 08/25/17 09:17) Past Medical History - General Information source: Patient - Social History Smoking Status: Never Smoker Chew tobacco use (# tins/day): No Frequency of alcohol use: Occasional Drug Abuse: None Family History: Reviewed & Not Pertinent, Other - does not know Patient has suicidal ideation: No Patient has homicidal ideation: No Pulmonary Medical History: Reports: Hx Asthma Renal/ Medical History: Denies: Hx Peritoneal Dialysis GI Medical History: Reports: Hx Irritable Bowel - constipation Psychiatric Medical History: Reports: Hx Anxiety, Hx Bipolar Disorder, Hx Depression, Hx Personality Disorder, Hx Schizophrenia Past Surgical History: Reports: Hx Abdominal Surgery, Hx Appendectomy, Hx Cholecystectomy, Hx Orthopedic Surgery - finger - Immunizations Immunizations up to date: Yes Hx Diphtheria, Pertussis, Tetanus Vaccination: Yes - 2012 Hx Pneumococcal Vaccination: 08/23/00 Review of Systems - Review of Systems Constitutional: Malaise, Weakness. denies: Fever Cardiovascular: denies: Chest pain Respiratory: denies: Cough, Short of breath Gastrointestinal: denies: Diarrhea, Vomiting -: Yes All other systems reviewed and negative Physical Exam - Vital signs Vitals: Temp Pulse Resp BP Pulse Ox 97.7 F 61 19 123/72 98 08/25/17 09:24 08/25/17 09:24 08/25/17 09:24 08/25/17 09:24 08/25/17 09:24 Interpretation: Normal - General General appearance: Appears well, Alert - HEENT Head: Normocephalic, Atraumatic Eyes: Normal Pupils: PERRL - Respiratory Respiratory status: No respiratory distress Chest status: Nontender Breath sounds: Normal Chest palpation: Normal - Cardiovascular Rhythm: Regular Heart sounds: Normal auscultation Murmur: No - Abdominal Inspection: Normal Distension: No distension Bowel sounds: Normal Tenderness: Nontender Organomegaly: No organomegaly - Back Back: Normal, Nontender - Extremities General upper extremity: Normal inspection, Nontender, Normal color, Normal ROM , Normal temperature General lower extremity: Normal inspection, Nontender, Normal color, Normal ROM , Normal temperature, Normal weight bearing. No: Esdras's sign - Neurological Neuro grossly intact: Yes Cognition: Normal Orientation: AAOx4 [place] Coma Scale Eye Opening: Spontaneous Jasmin Coma Scale Verbal: Oriented [place] Coma Scale Motor: Obeys Commands Jasmin Coma Scale Total: 15 Speech: Normal Motor strength normal: LUE, RUE, LLE, RLE Sensory: Normal - Psychological Associated symptoms: Normal affect, Normal mood - Skin Skin Temperature: Warm Skin Moisture: Dry Skin Color: Normal Course - Re-evaluation Re-evalutation: 08/25/17 11:11 Patient's white blood cell count is noticed to have been trending down over the last approximate 12 months. I have educated patient that this possibly is due to medications. He does not appear to have any type of infectious process at this time that would require further emergency department investigation. However I did stress the need to the patient to make sure this is being monitored by his physician or psychiatrist. I did instruct patient that he should have his CBC rechecked within 1 week by either his physician or psychiatrist. - Vital Signs Vital signs: Temp Pulse Resp BP Pulse Ox 97.7 F 61 19 123/72 98 08/25/17 09:24 08/25/17 09:24 08/25/17 09:24 08/25/17 09:24 08/25/17 09:24 - Laboratory Result Diagrams: 08/25/17 09:50 08/25/17 09:50 Laboratory results interpreted by me: 08/25/17 08/25/17 09:50 09:50 WBC 2.6 L Seg Neuts % (Manual) 30 L Eosinophils % (Manual) 12 H Abs Neuts (Manual) 0.8 L Sodium 146.2 H Discharge - Discharge Clinical Impression: Weakness Condition: Stable Disposition: HOME, SELF-CARE Instructions: Weakness ([facility]) Additional Instructions: Your blood pressure is mildly elevated. Please have this rechecked by your physician within 1 week. Your white blood cell count is low. This may be due to your medications. It is very important that your family physician or psychiatrist recheck your white blood cell count within the next week. A low white blood cell count can make you more likely to get serious infectious illnesses such as pneumonia. Therefore it is very important that you have this rechecked. Forms: Elevated Blood Pressure Referrals: PALMA SALDANA MD [COMMUNITY BASED STAFF] - Follow up in 1 week
[2017-08-25 11:31] VITALS: BP 133/80
== END 2017-08-25 11:35 | disposition home or self-care (01) ==
LOC: ER 09:15
DX: R53.1 Weakness (principal)
CPT/HCPCS: 99283; 99285; 36415; 85025; 80048; J3490

== ENCOUNTER 2017-08-25 18:16 | Emergency (ER) | payer MEDICAID ==
[2017-08-25 18:36] VITALS: BP 125/64
[2017-08-25] MEDS ORDERED: FAMOTIDINE 20 MG TABLET PO ONE (19:48)
--- NOTE | 2017-08-25 19:52 | ER Document Report ---
HPI - HPI Patient complains to provider of: stomach pain Pain Level: 1 Context: Patient is a 32-year-old male with a history of schizophrenia that comes emergency department for chief complaint of stomach discomfort. He states that he had buffalo wings, he states shortly after this he was eating fruit cups and he started to feel like his stomach was bloated and uncomfortable. He states he was worried they got stuck. He denies any current symptoms. He denies nausea or vomiting, diarrhea, fever. - GASTROINTESTINAL Gastrointestinal: REPORTS: Abdominal Pain - REPRODUCTIVE Reproductive: DENIES: : - DERM Skin Color: Normal Past Medical History - General Information source: Patient - Social History Smoking Status: Never Smoker Frequency of alcohol use: None Drug Abuse: None Lives with: Alone Family History: Reviewed & Not Pertinent, Other - does not know Patient has suicidal ideation: No Patient has homicidal ideation: No Pulmonary Medical History: Reports: Hx Asthma Renal/ Medical History: Denies: Hx Peritoneal Dialysis GI Medical History: Reports: Hx Irritable Bowel - constipation Psychiatric Medical History: Reports: Hx Anxiety, Hx Bipolar Disorder, Hx Depression, Hx Personality Disorder, Hx Schizophrenia Past Surgical History: Reports: Hx Abdominal Surgery, Hx Appendectomy, Hx Cholecystectomy, Hx Orthopedic Surgery - finger - Immunizations Immunizations up to date: Yes Hx Diphtheria, Pertussis, Tetanus Vaccination: Yes - 2012 Hx Pneumococcal Vaccination: 08/23/00 Vertical Provider Document - CONSTITUTIONAL General Appearance: WD/WN, No Apparent Distress - INFECTION CONTROL TRAVEL OUTSIDE OF THE [place] IN LAST 30 DAYS: No - HEENT HEENT: Atraumatic, Normocephalic - RESPIRATORY Respiratory: Breath Sounds Normal, No Respiratory Distress O2 Sat by Pulse Oximetry: 98 - CARDIOVASCULAR Cardiovascular: Regular Rate, Regular Rhythm - GI/ABDOMEN Gastrointestinal: Abdomen Soft, Abdomen Non-Tender - BACK Back: Normal Inspection - NEURO Level of Consciousness: Awake, Alert, Appropriate - DERM Integumentary: Warm, Dry, No Rash Course - Re-evaluation Re-evalutation: Patient points to his left upper quadrant as the area for bloating/discomfort. Probably had some stomach discomfort/gastritis after eating buffalo wings. Soft nontender abdomen on my exam. Does not complain of any abdominal symptoms at this time. No concerning symptoms reported, patient patient does not suggest acute abdomen or emergent process. Vital signs unremarkable. Patient given Pepcid, discharged with follow-up instructions and return precautions. Patient states understanding and agreement. - Vital Signs Vital signs: Temp Pulse Resp BP Pulse Ox 98.5 F 85 20 125/64 98 08/25/17 18:34 08/25/17 18:34 08/25/17 18:34 08/25/17 18:34 08/25/17 18:34 Discharge - Discharge Clinical Impression: Stomach ache Condition: Stable Disposition: HOME, SELF-CARE Additional Instructions: Your symptoms and the area you have discomfort are suggestive of mild gastritis , avoid spicy foods if necessary, take the Pepcid if needed, follow-up with primary care. Return for any concerning symptoms including vomiting, fever, or any other concerning symptoms. Prescriptions: Famotidine [Pepcid 20 mg Tablet] 20 mg PO BID PRN #20 tablet PRN Reason:
== END 2017-08-25 20:05 | disposition home or self-care (01) ==
LOC: ER 18:16
DX: R10.9 Unspecified abdominal pain (principal); F20.9 Schizophrenia, unspecified
CPT/HCPCS: 99283; J3490

== ENCOUNTER 2017-08-28 22:44 | Emergency (ER) | payer MEDICAID ==
--- NOTE | 2017-08-28 22:54 | ER Document Report ---
HPI - HPI Patient complains to provider of: Medication refill Pain Level: Denies Context: Patient is a 32-year-old male who presents emergency department stating that he ran out of his Spiriva a couple of days ago. Which he plans on going to pick it up tomorrow. He was not sure if he could get a dose in the emergency department. He denies any shortness of breath or difficulty breathing at this time. Denies any productive cough, chest pain states that he does have a prescription at the pharmacy - REPRODUCTIVE Reproductive: DENIES: : Past Medical History - Social History Smoking Status: Unknown if Ever Smoked Family History: Reviewed & Not Pertinent, Other - does not know Patient has suicidal ideation: No Patient has homicidal ideation: No Pulmonary Medical History: Reports: Hx Asthma Renal/ Medical History: Denies: Hx Peritoneal Dialysis GI Medical History: Reports: Hx Irritable Bowel - constipation Psychiatric Medical History: Reports: Hx Anxiety, Hx Bipolar Disorder, Hx Depression, Hx Personality Disorder, Hx Schizophrenia Past Surgical History: Reports: Hx Abdominal Surgery, Hx Appendectomy, Hx Cholecystectomy, Hx Orthopedic Surgery - finger - Immunizations Immunizations up to date: Yes Hx Diphtheria, Pertussis, Tetanus Vaccination: Yes - 2012 Hx Pneumococcal Vaccination: 08/23/00 Vertical Provider Document - CONSTITUTIONAL Agree With Documented VS: Yes Notes: PHYSICAL EXAM GENERAL: Alert, interacts well. HEAD: Normocephalic, atraumatic. EYES: Pupils equal, round, and reactive to light. Extraocular movements intact. ENT: Oral mucosa moist, tongue midline. NECK: Full range of motion. Supple. Trachea midline. LUNGS: Clear to auscultation bilaterally, no wheezes, rales, or rhonchi. No respiratory distress. HEART: Regular rate and rhythm. No murmurs, gallops, or rubs. EXTREMITIES: Moves all 4 extremities spontaneously. No edema, radial and dorsalis pedis pulses 2/4 bilaterally. No cyanosis. NEUROLOGICAL: Alert and oriented x4. Normal speech. PSYCH: Normal affect, normal mood. SKIN: Warm, dry, normal turgor. No rashes or lesions noted. - INFECTION CONTROL TRAVEL OUTSIDE OF THE [place] IN LAST 30 DAYS: No Course - Re-evaluation Re-evalutation: 08/28/17 23:21 Patient is a 32-year-old male who is well-known to the emergency department. Currently hemodynamically stable, no acute distress afebrile. No concern for asthma exacerbation given patient is satting 98% on pulse ox while speaking in clear sentences without any clinical tachypnea, retractions. Physical exam benign for any evidence of wheezing. Patient offered a albuterol rescue inhaler and to follow-up with his pharmacy in the morning to get his prescription and touch base with his primary care. Patient agrees with plan Discharge - Discharge Clinical Impression: Medication refill Condition: Good Disposition: HOME, SELF-CARE Additional Instructions: Please lemon picker your prescription from your pharmacy tomorrow Referrals: GIANCARLO CHANCE MD [Primary Care Provider] - Follow up as needed
[2017-08-28 22:57] VITALS: BP 113/64
[2017-08-28] MEDS ORDERED: ALBUTEROL SULFATE HFA (90 MCG/PUFF) 8 GM MDI (1 MDI/ER DISP) IH PRN (23:22)
== END 2017-08-28 23:28 | disposition home or self-care (01) ==
LOC: ER 22:44
DX: Z76.0 Encounter for issue of repeat prescription (principal); Z79.899 Other long term (current) drug therapy
CPT/HCPCS: 99281; J3490

== ENCOUNTER 2017-08-30 02:42 | Emergency (ER) | payer MEDICAID ==
[2017-08-30] MEDS ORDERED: IBUPROFEN 400 MG TABLET PO ONE (03:17)
[2017-08-30] MEDS ORDERED: LIDOCAINE 1% INJ-PF (10 MG/ML) 30 ML SDV NEB ONE (03:17)
--- NOTE | 2017-08-30 03:33 | ER Document Report ---
ED General - General Chief Complaint: Ankle Pain Stated Complaint: RIGHT ANKLE PAIN Time Seen by Provider: 08/30/17 02:57 Cannot obtain history due to: Mentally challenged Notes: Patient is a 32-year-old male frequently in the emergency department for random complaints who comes in tonight originally complaining of right ankle pain when I see him states "I originally to be seen from ankle but now I am more worried about my throat". Patient states he feels like he is choking on his saliva. He is very fidgety, pacing around the room, and has difficulty telling me what exactly brought him to the emergency department. He has not seen a primary doctor regarding today's concerns. He is currently homeless. He denies alcohol or drug use. Nothing improves or worsens his myriad of symptoms. TRAVEL OUTSIDE OF THE [place] IN LAST 30 DAYS: No - Related Data Allergies/Adverse Reactions: No Known Allergies Allergy (Verified 08/25/17 18:19) Past Medical History - General Information source: Patient - Social History Smoking Status: Never Smoker Frequency of alcohol use: None Drug Abuse: None Lives with: Homeless Family History: Reviewed & Not Pertinent, Other - does not know Pulmonary Medical History: Reports: Hx Asthma Renal/ Medical History: Denies: Hx Peritoneal Dialysis GI Medical History: Reports: Hx Irritable Bowel - constipation Psychiatric Medical History: Reports: Hx Anxiety, Hx Bipolar Disorder, Hx Depression, Hx Personality Disorder, Hx Schizophrenia Past Surgical History: Reports: Hx Abdominal Surgery, Hx Appendectomy, Hx Cholecystectomy, Hx Orthopedic Surgery - finger - Immunizations Immunizations up to date: Yes Hx Diphtheria, Pertussis, Tetanus Vaccination: Yes - 2012 Hx Pneumococcal Vaccination: 08/23/00 Review of Systems - Review of Systems Notes: Constitutional: Negative for fever. HENT: Positive for sore throat. Eyes: Negative for visual changes. Cardiovascular: Negative for chest pain. Respiratory: Negative for shortness of breath. Gastrointestinal: Negative for abdominal pain, vomiting or diarrhea. Genitourinary: Negative for dysuria. Musculoskeletal: Positive for right ankle pain Skin: Negative for rash. Neurological: Negative for headaches, weakness or numbness. 10 point ROS negative except as marked above and in HPI. Physical Exam - Vital signs Vitals: Temp Pulse Resp BP Pulse Ox 97.9 F 47 L 18 125/77 97 08/30/17 02:49 08/30/17 02:49 08/30/17 02:49 08/30/17 02:49 08/30/17 02:49 Interpretation: Bradycardic Notes: PHYSICAL EXAMINATION: GENERAL: Somewhat emaciated, no acute distress HEAD: Atraumatic, normocephalic. EYES: Pupils equal round and reactive to light, extraocular movements intact, sclera anicteric, conjunctiva are normal. ENT: nares patent, oropharynx clear without exudates. Moist mucous membranes. NECK: Normal range of motion, supple without lymphadenopathy LUNGS: Breath sounds clear to auscultation bilaterally and equal. No wheezes rales or rhonchi. HEART: Regular rate and rhythm without murmurs ABDOMEN: Soft, nontender, normoactive bowel sounds. No guarding, no rebound. No masses appreciated. EXTREMITIES: Normal range of motion, no pitting or edema. No cyanosis. NEUROLOGICAL: No focal neurological deficits. Moves all extremities spontaneously and on command. PSYCH: Anxious, pacing, fidgeting SKIN: Warm, Dry, normal turgor, no rashes or lesions noted. Course - Re-evaluation Re-evalutation: 08/30/17 03:17 Patient presents with multiple vague complaints that did not appear to be concerning for any acute life-threatening pathology. Vitals are within normal limits at triage and at time of discharge. Physical examination is unremarkable. Patient has tolerated oral intake without difficulty. Patient was not noted to be in distress at any point during their ER visit. At this time, based on the reassuring evaluation, I do not suspect an acute IA, pulmonary embolus, aortic dissection, acute intra-abdominal pathology, stroke, or sepsis. Will discharge with return precautions and follow-up recommendations. Verbal discharge instructions given a the bedside and opportunity for questions given. Medication warnings reviewed. Patient is in agreement with this plan and has verbalized understanding of return precautions and the need for primary care follow-up in the next 24-72 hours. - Vital Signs Vital signs: Temp Pulse Resp BP Pulse Ox 97.9 F 47 L 18 125/77 97 08/30/17 02:49 08/30/17 02:49 08/30/17 02:49 08/30/17 02:49 08/30/17 02:49 Discharge - Discharge Clinical Impression: Sore throat Right ankle pain Qualifiers: Chronicity: acute Qualified Code(s): M25.571 - Pain in right ankle and joints of right foot Condition: Good Disposition: HOME, SELF-CARE Additional Instructions: Please return to the emergency room immediately if you experience any concerning symptoms including high fevers, severe headache, chest pain, difficulty breathing, abdominal pain, slurred speech, numbness or weakness in your arms or legs, or any other symptom that concerns you.
[2017-08-30 05:45] VITALS: BP 119/80
== END 2017-08-30 05:59 | disposition home or self-care (01) ==
LOC: ER 02:42
DX: M25.571 Pain in right ankle and joints of right foot (principal); J02.9 Acute pharyngitis, unspecified; R09.89 Other specified symptoms and signs involving the circulatory and respiratory systems; F41.9 Anxiety disorder, unspecified; J45.909 Unspecified asthma, uncomplicated; R00.1 Bradycardia, unspecified; Z59.0 Homelessness
CPT/HCPCS: 99283; J3490

== ENCOUNTER 2017-09-09 06:09 | Emergency (ER) | payer MEDICAID ==
[2017-09-09 07:50] LABS: VENOUS BLOOD BASE EXCESS 4.9 mmol/L; VENOUS BLOOD HCO3 32.6 mmol/L (20-32); VENOUS BLOOD PCO2 61.5 mmHg (35-63); VENOUS BLOOD PH 7.34 (7.30-7.42)
--- NOTE | 2017-09-09 08:36 | ER Document Report ---
ED General - General Chief Complaint: Other Stated Complaint: DIFFICULTY BREATHING Time Seen by Provider: 09/09/17 06:40 Mode of Arrival: Ambulatory Information source: Patient TRAVEL OUTSIDE OF THE [place] IN LAST 30 DAYS: No - HPI Patient complains to provider of: Patient smell gas today Onset: Just prior to arrival Onset/Duration: Sudden Context: States he does have an electric stove however he said that he lives in an [facility] any smelt gas today. Patient denies any other symptoms. Associated symptoms: None Exacerbated by: Denies Relieved by: Denies Similar symptoms previously: No - Related Data Allergies/Adverse Reactions: No Known Allergies Allergy (Verified 08/25/17 18:19) Past Medical History - General Information source: Patient - Social History Smoking Status: Never Smoker Chew tobacco use (# tins/day): No Frequency of alcohol use: Rare Drug Abuse: None Family History: Reviewed & Not Pertinent, Other - does not know Patient has suicidal ideation: No Patient has homicidal ideation: No Pulmonary Medical History: Reports: Hx Asthma Renal/ Medical History: Denies: Hx Peritoneal Dialysis Malignancy Medical History: Reports None GI Medical History: Reports: Hx Irritable Bowel - constipation Musculoskeltal Medical History: Reports None Skin Medical History: Reports None Psychiatric Medical History: Reports: Hx Anxiety, Hx Bipolar Disorder, Hx Depression, Hx Personality Disorder, Hx Schizophrenia Past Surgical History: Reports: Hx Abdominal Surgery, Hx Appendectomy, Hx Cholecystectomy, Hx Orthopedic Surgery - finger - Immunizations Immunizations up to date: Yes Hx Diphtheria, Pertussis, Tetanus Vaccination: Yes - 2012 Hx Pneumococcal Vaccination: 08/23/00 Review of Systems - Review of Systems Constitutional: No symptoms reported EENT: No symptoms reported Cardiovascular: No symptoms reported Respiratory: No symptoms reported Gastrointestinal: No symptoms reported Genitourinary: No symptoms reported Male Genitourinary: No symptoms reported Musculoskeletal: No symptoms reported Skin: No symptoms reported Hematologic/Lymphatic: No symptoms reported Neurological/Psychological: No symptoms reported Physical Exam - Vital signs Vitals: Pulse Resp BP Pulse Ox 84 18 140/90 H 99 09/09/17 06:21 09/09/17 06:21 09/09/17 06:21 09/09/17 06:21 - Notes Notes: PHYSICAL EXAMINATION: GENERAL: Well-appearing, mildly disheveled , and in no acute distress. HEAD: Atraumatic, normocephalic. EYES: Pupils equal round and reactive to light, extraocular movements intact, sclera anicteric, conjunctiva are normal. ENT: Nares patent, oropharynx clear without exudates. Moist mucous membranes. NECK: Normal range of motion, supple without lymphadenopathy LUNGS: Breath sounds clear to auscultation bilaterally and equal. No wheezes rales or rhonchi. HEART: Regular rate and rhythm without murmurs ABDOMEN: Soft, nontender, nondistended abdomen. No guarding, no rebound. No masses appreciated. Musculoskeletal: Normal range of motion, no pitting or edema. No cyanosis. NEUROLOGICAL: Cranial nerves grossly intact. Normal speech, normal gait. Normal sensory, motor exams PSYCH: Normal mood, normal affect. SKIN: Warm, Dry, normal turgor, no rashes or lesions noted. Course - Vital Signs Vital signs: Temp Pulse Resp BP Pulse Ox 98.6 F 84 18 140/90 H 99 09/09/17 06:26 09/09/17 06:21 09/09/17 06:21 09/09/17 06:21 09/09/17 06:21 - Laboratory Laboratory results interpreted by me: 09/09/17 07:35 VBG HCO3 32.6 H 09/09/17 08:35 Carboxyhemoglobin 0.6 Discharge - Discharge Clinical Impression: Well adult health check Condition: Stable Disposition: HOME, SELF-CARE Additional Instructions: [facility] appointment. Return to the emergency department for any concerns Referrals: [facility] [Outside] - Follow up as needed
[2017-09-09 09:26] VITALS: BP 129/77
== END 2017-09-09 09:26 | disposition home or self-care (01) ==
LOC: ER 06:09
DX: Z71.1 Person with feared health complaint in whom no diagnosis is made (principal); Z90.49 Acquired absence of other specified parts of digestive tract
CPT/HCPCS: 36415; 82375; 82803; 99283

== ENCOUNTER 2017-09-09 11:39 | Emergency (ER) | payer OTHER, MEDICAID ==
[2017-09-09 11:46] VITALS: BP 120/76
[2017-09-09] MEDS ORDERED: IBUPROFEN 600 MG TABLET PO ONE (11:54)
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
== END 2017-09-09 12:59 | disposition home or self-care (01) ==
LOC: ER 11:39
DX: S19.9XXA Unspecified injury of neck, initial encounter (principal); V79.50XA Passenger on bus injured in collision with unspecified motor vehicles in traffic accident, initial encounter; Z90.49 Acquired absence of other specified parts of digestive tract
CPT/HCPCS: 99283; 72050; L0120

== ENCOUNTER 2017-09-19 11:35 | Emergency (ER) | payer MEDICAID, OTHER ==
[2017-09-19] MEDS ORDERED: ALBUTEROL SULFATE HFA (90 MCG/PUFF) 8 GM MDI (1 MDI/ER DISP) IH ONE (12:29)
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
[2017-09-19 12:42] VITALS: BP 113/71
== END 2017-09-19 12:53 | disposition home or self-care (01) ==
LOC: ER 11:35
DX: J06.9 Acute upper respiratory infection, unspecified (principal); J45.909 Unspecified asthma, uncomplicated; T48.6X6A Underdosing of antiasthmatics, initial encounter; Z91.120 Patient's intentional underdosing of medication regimen due to financial hardship; Z91.14 Patient's other noncompliance with medication regimen; I10 Essential (primary) hypertension; Z87.891 Personal history of nicotine dependence
CPT/HCPCS: 99283; J3490

== ENCOUNTER 2017-09-24 00:25 | Emergency (ER) | payer MEDICAID ==
--- NOTE | 2017-09-24 06:23 | ER Document Report ---
ED General - General Chief Complaint: Abdominal Pain Stated Complaint: BLOATING Time Seen by Provider: 09/24/17 06:10 Mode of Arrival: Ambulatory Information source: Patient Notes: 32-year-old male presents with complaints of abdominal bloating and cramping sensation that has since resolved. Patient notes that his abdomen felt like he was gassy, and then it resolved while he was in the emergency department waiting room but decided to stay to be evaluated. He denies any complaints at this time denies any fevers chills nausea vomiting or diarrhea TRAVEL OUTSIDE OF THE [place] IN LAST 30 DAYS: No - HPI Onset: Just prior to arrival Onset/Duration: Sudden Quality of pain: Cramping Severity: Mild Pain Level: Denies Associated symptoms: Other Exacerbated by: Denies Relieved by: Denies Similar symptoms previously: Yes Recently seen / treated by doctor: Yes - Related Data Allergies/Adverse Reactions: No Known Allergies Allergy (Verified 09/24/17 01:21) Past Medical History - Social History Smoking Status: Never Smoker Cigarette use (# per day): No Chew tobacco use (# tins/day): No Smoking Education Provided: No Family History: Reviewed & Not Pertinent, Other - does not know Patient has suicidal ideation: No Patient has homicidal ideation: No Pulmonary Medical History: Reports: Hx Asthma Renal/ Medical History: Denies: Hx Peritoneal Dialysis GI Medical History: Reports: Hx Irritable Bowel - constipation Psychiatric Medical History: Reports: Hx Anxiety, Hx Bipolar Disorder, Hx Depression, Hx Personality Disorder, Hx Schizophrenia Past Surgical History: Reports: Hx Abdominal Surgery, Hx Appendectomy, Hx Cholecystectomy, Hx Orthopedic Surgery - finger - Immunizations Immunizations up to date: Yes Hx Diphtheria, Pertussis, Tetanus Vaccination: Yes - 2012 Hx Pneumococcal Vaccination: 08/23/00 Review of Systems - Review of Systems Notes: REVIEW OF SYSTEMS: CONSTITUTIONAL : Denies fever, chills, or sweats. Denies recent illness. EENT: Denies eye, ear, throat, or mouth pain or symptoms. Denies nasal or sinus congestion or discharge. Denies throat, tongue, or mouth swelling or difficulty swallowing. CARDIOVASCULAR: Denies chest pain. Denies palpitations or racing or irregular heart beat. Denies ankle edema. RESPIRATORY: Denies cough, cold, or chest congestion. Denies shortness of breath, difficulty breathing, or wheezing. GASTROINTESTINAL: Abdominal cramping GENITOURINARY: Denies difficulty urinating, painful urination, burning, frequency, blood in urine, or discharge. MUSCULOSKELETAL: Denies back or neck pain or stiffness. Denies joint pain or swelling. SKIN: Denies rash, lesions or sores. HEMATOLOGIC : Denies easy bruising or bleeding. LYMPHATIC: Denies swollen, enlarged glands. NEUROLOGICAL: Denies confusion or altered mental status. Denies passing out or loss of consciousness. Denies dizziness or lightheadedness. Denies headache. Denies weakness or paralysis or loss of use of either side. Denies problems with gait or speech. Denies sensory loss, numbness, or tingling. Denies seizures. PSYCHIATRIC: Denies anxiety or stress. Denies depression, suicidal ideation, or homicidal ideation. ALL OTHER SYSTEMS REVIEWED AND NEGATIVE. Dictation was performed using [employer] voice recognition software PHYSICAL EXAMINATION: GENERAL: Well-appearing, well-nourished and in no acute distress. HEAD: Atraumatic, normocephalic. EYES: Pupils equal round and reactive to light, extraocular movements intact, sclera anicteric, conjunctiva are normal. ENT: Nares patent, oropharynx clear without exudates. Moist mucous membranes. NECK: Normal range of motion, supple without lymphadenopathy LUNGS: Breath sounds clear to auscultation bilaterally and equal. No wheezes rales or rhonchi. HEART: Regular rate and rhythm without murmurs ABDOMEN: Soft, nontender, nondistended abdomen. No guarding, no rebound. No masses appreciated. Musculoskeletal: Normal range of motion, no pitting or edema. No cyanosis. NEUROLOGICAL: Cranial nerves grossly intact. Normal speech, normal gait. Normal sensory, motor exams PSYCH: Normal mood, normal affect. SKIN: Warm, Dry, normal turgor, no rashes or lesions noted. Physical Exam - Vital signs Vitals: Temp Pulse Resp BP Pulse Ox 98.8 F 77 16 130/73 H 99 09/24/17 01:27 09/24/17 01:27 09/24/17 01:27 09/24/17 01:27 09/24/17 01:27 Course - Re-evaluation Re-evalutation: 09/24/17 07:03 Patient's examination is completely benign, he admits that his symptoms have resolved prior to my evaluation, he is pleasant and in no distress, patient was evaluated and will be discharged home with close follow-up After performing a Medical Screening Examination, I estimate there is LOW risk for ACUTE APPENDICITIS, BOWEL OBSTRUCTION, ACUTE CHOLECYSTITIS, PERFORATED DIVERTICULITIS, INCARCERATED HERNIA, PANCREATITIS, TESTICULAR TORSION or PERFORATED ULCER, thus I consider the discharge disposition reasonable. Also, there is no evidence or peritonitis, sepsis, or toxicity. I have reevaluated this patient multiple times and no significant life threatening changes are noted. The patient and I have discussed the diagnosis and risks, and we agree with discharging home with close follow-up with the understanding that symptoms and presentations can change. We also discussed returning to the Emergency Department immediately if new or worsening symptoms occur. We have discussed the symptoms which are most concerning (e.g., bloody stool, fever, changing or worsening pain, intractable vomiting - standard verbal up date) that necessitate immediate return. - Vital Signs Vital signs: Temp Pulse Resp BP Pulse Ox 98.2 F 70 20 138/75 H 98 09/24/17 05:23 09/24/17 06:52 09/24/17 06:52 09/24/17 06:52 09/24/17 06:52 Discharge - Discharge Clinical Impression: Bloating Abdominal pain Qualifiers: Abdominal location: unspecified location Qualified Code(s): R10.9 - Unspecified abdominal pain Condition: Stable Disposition: HOME, SELF-CARE Instructions: Abdominal Pain ([facility]) Additional Instructions: Please follow up with your pcp or return immediately if there are any other concerns
[2017-09-24 06:53] VITALS: BP 138/75
== END 2017-09-24 06:50 | disposition home or self-care (01) ==
LOC: ER 00:25
DX: R14.0 Abdominal distension (gaseous) (principal); R10.9 Unspecified abdominal pain
CPT/HCPCS: 99284

== ENCOUNTER 2017-09-24 07:31 | Emergency (ER) | payer MEDICAID ==
[2017-09-24 07:39] VITALS: BP 114/69
--- NOTE | 2017-09-24 07:48 | ER Document Report ---
ED General - General Chief Complaint: Back Pain Stated Complaint: BACK PAIN Time Seen by Provider: 09/24/17 07:46 Mode of Arrival: Ambulatory Information source: Patient Notes: 32-year-old male who was just discharged by myself approximately 2 minutes ago went into the waiting room and then while in the waiting room a another patient' s oxygen tank began leaking across the room and patient believe that his own oxygen level was dropping immediately presented in for evaluation for his breathing. Vital signs were performed and he is satting 100% Patient denies any shortness of breath TRAVEL OUTSIDE OF THE [place] IN LAST 30 DAYS: No - HPI Onset: Just prior to arrival Onset/Duration: Sudden Quality of pain: No pain Severity: None Pain Level: Denies Associated symptoms: Other Exacerbated by: Denies Relieved by: Denies Similar symptoms previously: No Recently seen / treated by doctor: Yes - Related Data Allergies/Adverse Reactions: No Known Allergies Allergy (Verified 09/24/17 01:21) Past Medical History - Social History Smoking Status: Never Smoker Cigarette use (# per day): No Chew tobacco use (# tins/day): No Smoking Education Provided: No Family History: Reviewed & Not Pertinent, Other - does not know Pulmonary Medical History: Reports: Hx Asthma Renal/ Medical History: Denies: Hx Peritoneal Dialysis GI Medical History: Reports: Hx Irritable Bowel - constipation Psychiatric Medical History: Reports: Hx Anxiety, Hx Bipolar Disorder, Hx Depression, Hx Personality Disorder, Hx Schizophrenia Past Surgical History: Reports: Hx Abdominal Surgery, Hx Appendectomy, Hx Cholecystectomy, Hx Orthopedic Surgery - finger - Immunizations Immunizations up to date: Yes Hx Diphtheria, Pertussis, Tetanus Vaccination: Yes - 2012 Hx Pneumococcal Vaccination: 08/23/00 Review of Systems - Review of Systems Notes: REVIEW OF SYSTEMS: CONSTITUTIONAL : Denies fever, chills, or sweats. Denies recent illness. EENT: Denies eye, ear, throat, or mouth pain or symptoms. Denies nasal or sinus congestion or discharge. Denies throat, tongue, or mouth swelling or difficulty swallowing. CARDIOVASCULAR: Denies chest pain. Denies palpitations or racing or irregular heart beat. Denies ankle edema. RESPIRATORY: Concerns for breathing issue GASTROINTESTINAL: Denies abdominal pain or distention. Denies nausea, vomiting , or diarrhea. Denies blood in vomitus, stools, or per rectum. Denies black, tarry stools. Denies constipation. GENITOURINARY: Denies difficulty urinating, painful urination, burning, frequency, blood in urine, or discharge. MUSCULOSKELETAL: Denies back or neck pain or stiffness. Denies joint pain or swelling. SKIN: Denies rash, lesions or sores. HEMATOLOGIC : Denies easy bruising or bleeding. LYMPHATIC: Denies swollen, enlarged glands. NEUROLOGICAL: Denies confusion or altered mental status. Denies passing out or loss of consciousness. Denies dizziness or lightheadedness. Denies headache. Denies weakness or paralysis or loss of use of either side. Denies problems with gait or speech. Denies sensory loss, numbness, or tingling. Denies seizures. PSYCHIATRIC: Denies anxiety or stress. Denies depression, suicidal ideation, or homicidal ideation. ALL OTHER SYSTEMS REVIEWED AND NEGATIVE. Dictation was performed using [employer] voice recognition software PHYSICAL EXAMINATION: GENERAL: Well-appearing, well-nourished and in no acute distress. HEAD: Atraumatic, normocephalic. EYES: Pupils equal round and reactive to light, extraocular movements intact, sclera anicteric, conjunctiva are normal. ENT: Nares patent, oropharynx clear without exudates. Moist mucous membranes. NECK: Normal range of motion, supple without lymphadenopathy LUNGS: Breath sounds clear to auscultation bilaterally and equal. No wheezes rales or rhonchi. HEART: Regular rate and rhythm without murmurs ABDOMEN: Soft, nontender, nondistended abdomen. No guarding, no rebound. No masses appreciated. Musculoskeletal: Normal range of motion, no pitting or edema. No cyanosis. NEUROLOGICAL: Cranial nerves grossly intact. Normal speech, normal gait. Normal sensory, motor exams PSYCH: Normal mood, normal affect. SKIN: Warm, Dry, normal turgor, no rashes or lesions noted. Physical Exam - Vital signs Vitals: Temp Pulse Resp BP Pulse Ox 97.8 F 56 L 16 114/69 99 09/24/17 07:38 09/24/17 07:38 09/24/17 07:38 09/24/17 07:38 09/24/17 07:38 Course - Re-evaluation Re-evalutation: 09/24/17 11:05 Physical examination is completely benign, I spent the patient his oxygen levels fine and he is extremely happy with this Patient will be discharged home at this time After performing a Medical Screening Examination, I estimate there is LOW risk for malignant otitis media, mastoiditis, MENINGITIS, or ACUTE CORONARY SYNDROME , thus I consider the discharge disposition reasonable. I have reevaluated this patient multiple times and no significant life threatening changes are noted. The patient and I have discussed the diagnosis and risks, and we agree with discharging home to follow-up on an outpatient basis with the understanding that symptoms and presentations can change. We also discussed returning to the Emergency Department immediately if new or worsening symptoms occur. We have discussed the symptoms which are most concerning (e.g., high fevers, confusion) that necessitate immediate return. - Vital Signs Vital signs: Temp Pulse Resp BP Pulse Ox 97.8 F 56 L 16 114/69 99 09/24/17 07:38 09/24/17 07:38 09/24/17 07:38 09/24/17 07:38 09/24/17 07:38 Discharge - Discharge Clinical Impression: Breathing problem Condition: Stable Disposition: HOME, SELF-CARE Additional Instructions: Your oxygen level is 100%, your respiratory rate is completely normal, at this time there is no signs of any respiratory problems Follow up with your physician tomorrow for further care or return to the ED IMMEDIATELY if symptoms worsen or new concerns occur. If you cannot afford to follow up with your primary care physician a list of low cost clinics have been provided at the end of your discharge papers as well.
== END 2017-09-24 08:02 | disposition home or self-care (01) ==
LOC: ER 07:31
DX: R06.02 Shortness of breath (principal); M54.9 Dorsalgia, unspecified; Z99.81 Dependence on supplemental oxygen
CPT/HCPCS: 99283

== ENCOUNTER 2017-09-27 15:44 | Emergency (ER) | payer MEDICAID ==
[2017-09-27 16:19] VITALS: BP 110/68
--- NOTE | 2017-09-27 16:53 | ER Document Report ---
ED General - General Chief Complaint: Abdominal Pain Stated Complaint: ABDOMINAL PAIN Time Seen by Provider: 09/27/17 16:50 Mode of Arrival: Ambulatory Information source: Patient Notes: Patient states he is concerned because he ate a burrito yesterday that was not all the way cooked. He states he vomited afterwards and is worried that he may still have some of it in his system. He describes mild diffuse abdominal cramping. Nothing makes it better or worse. No radiation of the symptoms. He denies any diarrhea. He denies any further nausea. He has had no fevers or rashes. TRAVEL OUTSIDE OF THE [place] IN LAST 30 DAYS: No - Related Data Allergies/Adverse Reactions: No Known Allergies Allergy (Verified 09/27/17 15:58) Past Medical History - General Information source: Patient - Social History Smoking Status: Unknown if Ever Smoked Chew tobacco use (# tins/day): No Frequency of alcohol use: Occasional Drug Abuse: None Family History: Reviewed & Not Pertinent, Other - does not know Patient has suicidal ideation: No Patient has homicidal ideation: No Pulmonary Medical History: Reports: Hx Asthma Renal/ Medical History: Denies: Hx Peritoneal Dialysis GI Medical History: Reports: Hx Irritable Bowel - constipation Psychiatric Medical History: Reports: Hx Anxiety, Hx Bipolar Disorder, Hx Depression, Hx Personality Disorder, Hx Schizophrenia Past Surgical History: Reports: Hx Abdominal Surgery, Hx Appendectomy, Hx Cholecystectomy, Hx Orthopedic Surgery - finger - Immunizations Immunizations up to date: Yes Hx Diphtheria, Pertussis, Tetanus Vaccination: Yes - 2012 Hx Pneumococcal Vaccination: 08/23/00 Review of Systems - Review of Systems Constitutional: denies: Chills, Fever Cardiovascular: denies: Chest pain, Palpitations Respiratory: denies: Cough, Short of breath Physical Exam - Vital signs Vitals: Temp Pulse Resp BP Pulse Ox 98.6 F 93 20 110/68 96 09/27/17 16:17 09/27/17 16:17 09/27/17 16:17 09/27/17 16:17 09/27/17 16:17 Interpretation: Normal - General General appearance: Appears well, Alert In distress: None - Respiratory Respiratory status: No respiratory distress Chest status: Nontender Breath sounds: Normal Chest palpation: Normal - Cardiovascular Rhythm: Regular Heart sounds: Normal auscultation Murmur: No - Abdominal Inspection: Normal Distension: No distension Bowel sounds: Normal Tenderness: Nontender Organomegaly: No organomegaly - Skin Skin Temperature: Warm Skin Moisture: Dry Skin Color: Normal Course - Vital Signs Vital signs: Temp Pulse Resp BP Pulse Ox 98.6 F 93 20 110/68 96 09/27/17 16:17 09/27/17 16:17 09/27/17 16:17 09/27/17 16:17 09/27/17 16:17 Discharge - Discharge Clinical Impression: Vomiting Qualifiers: Vomiting type: unspecified Vomiting Intractability: non-intractable Nausea presence: with nausea Qualified Code(s): R11.2 - Nausea with vomiting, unspecified Condition: Stable Disposition: HOME, SELF-CARE Instructions: Vomiting ([facility]) Referrals: PALMA SALDANA MD [COMMUNITY BASED STAFF] - Follow up in 1 week
== END 2017-09-27 17:05 | disposition home or self-care (01) ==
LOC: ER 15:44
DX: R11.2 Nausea with vomiting, unspecified (principal); R10.9 Unspecified abdominal pain
CPT/HCPCS: 99283

== ENCOUNTER 2017-10-02 18:05 | Emergency (ER) | payer MEDICAID ==
[2017-10-02 18:10] VITALS: BP 123/60
--- NOTE | 2017-10-02 18:30 | ER Document Report ---
ED Medical Screen (RME) - General Chief Complaint: Sore Throat Stated Complaint: POSSIBLE SWOLLOWED FOREIGN SUBSTANCE Time Seen by Provider: 10/02/17 18:27 Mode of Arrival: Ambulatory Information source: Patient TRAVEL OUTSIDE OF THE [place] IN LAST 30 DAYS: No - HPI Patient complains to provider of: possible FB ingestion Onset: Just prior to arrival - pt was "working on my bike" and may have swallowed "some rust." - Related Data Allergies/Adverse Reactions: No Known Allergies Allergy (Verified 10/02/17 18:05) Past Medical History - Social History Chew tobacco use (# tins/day): No Frequency of alcohol use: Occasional Drug Abuse: None Family history: Reviewed & Not Pertinent Pulmonary Medical History: Reports: Hx Asthma Renal/ Medical History: Denies: Hx Peritoneal Dialysis GI Medical History: Reports: Hx Irritable Bowel - constipation Psychiatric Medical History: Reports: Hx Anxiety, Hx Bipolar Disorder, Hx Depression, Hx Personality Disorder, Hx Schizophrenia Past Surgical History: Reports: Hx Abdominal Surgery, Hx Appendectomy, Hx Cholecystectomy, Hx Orthopedic Surgery - finger - Immunizations Immunizations up to date: Yes Hx Diphtheria, Pertussis, Tetanus Vaccination: Yes - 2012 Physical Exam - Vital signs Vitals: Temp Pulse Resp BP Pulse Ox 99.5 F 105 H 16 123/60 94 10/02/17 18:08 10/02/17 18:08 10/02/17 18:08 10/02/17 18:08 10/02/17 18:08 Course - Vital Signs Vital signs: Temp Pulse Resp BP Pulse Ox 99.5 F 105 H 16 123/60 94 10/02/17 18:08 10/02/17 18:08 10/02/17 18:08 10/02/17 18:08 10/02/17 18:08
--- NOTE | 2017-10-02 18:49 | RADIOLOGY REPORT (SQ) ---
EXAM DESCRIPTION: SOFT TISSUE NECK COMPLETED DATE/TIME: 10/02/2017 6:39 pm REASON FOR STUDY: possible foreign body ingestion COMPARISON: None. NUMBER OF VIEWS: Two views. TECHNIQUE: AP and lateral radiographic image of the soft tissues of the neck. LIMITATIONS: None. FINDINGS: EPIGLOTTIS: Normal. Contour normal. Aryepiglottic folds normal. PREVERTEBRAL SOFT TISSUES: Normal. No soft tissue swelling. SUBGLOTTIC AREA: Normal. No narrowing. RETROPHARYNGEAL SPACE: Normal. No soft tissue masses. BONES: No significant findings. LUNG APICES: Normal. OTHER: No radiopaque foreign body. No other significant finding. IMPRESSION: NEGATIVE STUDY OF THE SOFT TISSUES OF THE NECK. TECHNICAL DOCUMENTATION: JOB ID: [id number] [employer]- All Rights Reserved
== END 2017-10-02 19:06 | disposition home or self-care (01) ==
LOC: ER 18:05
DX: Z53.21 Procedure and treatment not carried out due to patient leaving prior to being seen by health care provider (principal); J02.9 Acute pharyngitis, unspecified; T18.9XXA Foreign body of alimentary tract, part unspecified, initial encounter; X58.XXXA Exposure to other specified factors, initial encounter; J45.909 Unspecified asthma, uncomplicated
CPT/HCPCS: 70360; 99281; 99283

== ENCOUNTER 2017-10-03 08:14 | Emergency (ER) | payer MEDICAID ==
[2017-10-03 08:21] VITALS: BP 133/84
--- NOTE | 2017-10-03 08:21 | ER Document Report ---
ED General - General Chief Complaint: Breathing Difficulty Stated Complaint: DIFFICULTY BREATHING Time Seen by Provider: 10/03/17 08:20 Mode of Arrival: Ambulatory Information source: Patient Notes: 32-year-old male who is very well-known to our facility presents with complaints of bloating and burping. He notes symptoms started prior to arrival. It is noted that the patient has had multiple similar episodes in the past. He denies any fevers or chills denies any nausea or vomiting he denies any chest pain TRAVEL OUTSIDE OF THE [place] IN LAST 30 DAYS: No - HPI Onset: Just prior to arrival Onset/Duration: Sudden Quality of pain: No pain Severity: Mild Pain Level: Denies Associated symptoms: Other - bloating Exacerbated by: Denies Relieved by: Denies Similar symptoms previously: No Recently seen / treated by doctor: No - Related Data Allergies/Adverse Reactions: No Known Allergies Allergy (Verified 10/02/17 18:05) Past Medical History - Social History Smoking Status: Never Smoker Cigarette use (# per day): No Chew tobacco use (# tins/day): No Smoking Education Provided: No Family History: Reviewed & Not Pertinent, Other - does not know Pulmonary Medical History: Reports: Hx Asthma Renal/ Medical History: Denies: Hx Peritoneal Dialysis GI Medical History: Reports: Hx Irritable Bowel - constipation Psychiatric Medical History: Reports: Hx Anxiety, Hx Bipolar Disorder, Hx Depression, Hx Personality Disorder, Hx Schizophrenia Past Surgical History: Reports: Hx Abdominal Surgery, Hx Appendectomy, Hx Cholecystectomy, Hx Orthopedic Surgery - finger - Immunizations Immunizations up to date: Yes Hx Diphtheria, Pertussis, Tetanus Vaccination: Yes - 2012 Hx Pneumococcal Vaccination: 08/23/00 Review of Systems - Review of Systems Notes: REVIEW OF SYSTEMS: CONSTITUTIONAL : Denies fever, chills, or sweats. Denies recent illness. EENT: Denies eye, ear, throat, or mouth pain or symptoms. Denies nasal or sinus congestion or discharge. Denies throat, tongue, or mouth swelling or difficulty swallowing. CARDIOVASCULAR: Denies chest pain. Denies palpitations or racing or irregular heart beat. Denies ankle edema. RESPIRATORY: Denies cough, cold, or chest congestion. Denies shortness of breath, difficulty breathing, or wheezing. GASTROINTESTINAL: admits to bloating GENITOURINARY: Denies difficulty urinating, painful urination, burning, frequency, blood in urine, or discharge. MUSCULOSKELETAL: Denies back or neck pain or stiffness. Denies joint pain or swelling. SKIN: Denies rash, lesions or sores. HEMATOLOGIC : Denies easy bruising or bleeding. LYMPHATIC: Denies swollen, enlarged glands. NEUROLOGICAL: Denies confusion or altered mental status. Denies passing out or loss of consciousness. Denies dizziness or lightheadedness. Denies headache. Denies weakness or paralysis or loss of use of either side. Denies problems with gait or speech. Denies sensory loss, numbness, or tingling. Denies seizures. PSYCHIATRIC: Denies anxiety or stress. Denies depression, suicidal ideation, or homicidal ideation. ALL OTHER SYSTEMS REVIEWED AND NEGATIVE. Dictation was performed using [employer] voice recognition software PHYSICAL EXAMINATION: GENERAL: Well-appearing, well-nourished and in no acute distress. HEAD: Atraumatic, normocephalic. EYES: Pupils equal round and reactive to light, extraocular movements intact, sclera anicteric, conjunctiva are normal. ENT: Nares patent, oropharynx clear without exudates. Moist mucous membranes. NECK: Normal range of motion, supple without lymphadenopathy LUNGS: Breath sounds clear to auscultation bilaterally and equal. No wheezes rales or rhonchi. HEART: Regular rate and rhythm without murmurs ABDOMEN: Soft, nontender, nondistended abdomen. No guarding, no rebound. No masses appreciated. ticklish Musculoskeletal: Normal range of motion, no pitting or edema. No cyanosis. NEUROLOGICAL: Cranial nerves grossly intact. Normal speech, normal gait. Normal sensory, motor exams PSYCH: Normal mood, normal affect. SKIN: Warm, Dry, normal turgor, no rashes or lesions noted. Physical Exam - Vital signs Vitals: Temp Pulse Resp BP Pulse Ox 98.8 F 105 H 20 133/84 H 97 10/03/17 08:19 10/03/17 08:19 10/03/17 08:19 10/03/17 08:19 10/03/17 08:19 Course - Re-evaluation Re-evalutation: 10/03/17 08:36 Patient is noted to be anxious per his baseline, otherwise his examination is benign he looks well he is afebrile in no distress, I will discharge home with close follow-up After performing a Medical Screening Examination, I estimate there is LOW risk for ACUTE APPENDICITIS, BOWEL OBSTRUCTION, ACUTE CHOLECYSTITIS, PERFORATED DIVERTICULITIS, INCARCERATED HERNIA, PANCREATITIS, TESTICULAR TORSION or PERFORATED ULCER, thus I consider the discharge disposition reasonable. Also, there is no evidence or peritonitis, sepsis, or toxicity. I have reevaluated this patient multiple times and no significant life threatening changes are noted. The patient and I have discussed the diagnosis and risks, and we agree with discharging home with close follow-up with the understanding that symptoms and presentations can change. We also discussed returning to the Emergency Department immediately if new or worsening symptoms occur. We have discussed the symptoms which are most concerning (e.g., bloody stool, fever, changing or worsening pain, intractable vomiting - standard verbal up date) that necessitate immediate return. - Vital Signs Vital signs: Temp Pulse Resp BP Pulse Ox 98.8 F 105 H 20 133/84 H 97 10/03/17 08:19 10/03/17 08:19 10/03/17 08:19 10/03/17 08:19 10/03/17 08:19 Discharge - Discharge Clinical Impression: Bloating Condition: Stable Disposition: HOME, SELF-CARE Instructions: Abdominal Pain ([facility]) Additional Instructions: Follow up with your physician tomorrow for further care or return to the ED IMMEDIATELY if symptoms worsen or new concerns occur. If you cannot afford to follow up with your primary care physician a list of low cost clinics have been provided at the end of your discharge papers as well.
== END 2017-10-03 08:47 | disposition home or self-care (01) ==
LOC: ER 08:14
DX: R14.0 Abdominal distension (gaseous) (principal); R06.02 Shortness of breath
CPT/HCPCS: 99284

== ENCOUNTER 2017-10-13 13:45 | Emergency (ER) | payer MEDICAID ==
[2017-10-13 13:50] VITALS: BP 120/76
--- NOTE | 2017-10-13 16:57 | ER Document Report ---
HPI - HPI Patient complains to provider of: Lump to right groin Onset: This morning Onset/Duration: Gradual Pain Level: 2 Context: Patient states that he noticed a lump in his right groin area and would like to have it checked out. Patient denies any penile discharge or drainage. Patient denies any urinary symptoms. Patient denies any scrotal tenderness or swelling. Associated Symptoms: None Exacerbated by: Denies Relieved by: Denies Similar symptoms previously: No Recently seen / treated by doctor: No - ROS ROS below otherwise negative: Yes Systems Reviewed and Negative: Yes All other systems reviewed and negative - CONSTITUTIONAL Constitutional: DENIES: Fever, Chills - EENT EENT: DENIES: Sore Throat - GASTROINTESTINAL Gastrointestinal: DENIES: Abdominal Pain - URINARY Urinary: DENIES: Dysuria, Urgency, Frequency - REPRODUCTIVE Reproductive: DENIES: : - MUSCULOSKELETAL Musculoskeletal: DENIES: Back Pain - DERM Skin Color: Normal Skin Problems: None Past Medical History - General Information source: Patient - Social History Smoking Status: Unknown if Ever Smoked Chew tobacco use (# tins/day): No Frequency of alcohol use: Occasional Drug Abuse: None Family History: Reviewed & Not Pertinent, Other - does not know Patient has suicidal ideation: No Patient has homicidal ideation: No Pulmonary Medical History: Reports: Hx Asthma Renal/ Medical History: Denies: Hx Peritoneal Dialysis GI Medical History: Reports: Hx Irritable Bowel - constipation Psychiatric Medical History: Reports: Hx Anxiety, Hx Bipolar Disorder, Hx Depression, Hx Personality Disorder, Hx Schizophrenia Past Surgical History: Reports: Hx Abdominal Surgery, Hx Appendectomy, Hx Cholecystectomy, Hx Orthopedic Surgery - finger - Immunizations Immunizations up to date: Yes Hx Diphtheria, Pertussis, Tetanus Vaccination: Yes - 2012 Hx Pneumococcal Vaccination: 08/23/00 Vertical Provider Document - CONSTITUTIONAL Agree With Documented VS: Yes Exam Limitations: No Limitations - INFECTION CONTROL TRAVEL OUTSIDE OF THE [place] IN LAST 30 DAYS: No - HEENT HEENT: Atraumatic, Normal ENT Exam, Normocephalic - NECK Neck: Normal Inspection - RESPIRATORY Respiratory: Breath Sounds Normal, No Respiratory Distress O2 Sat by Pulse Oximetry: 96 - CARDIOVASCULAR Cardiovascular: Regular Rate, Regular Rhythm - GI/ABDOMEN Gastrointestinal: Abdomen Soft Notes: Patient with normal-appearing inguinal lymph node to bilateral groin area. - MUSCULOSKELETAL/EXTREMETIES Musculoskeletal/Extremeties: MAEW - NEURO Level of Consciousness: Awake, Alert, Appropriate Motor/Sensory: No Motor Deficit - DERM Integumentary: Warm, Dry Course - Re-evaluation Re-evalutation: 10/13/17 16:54 Patient declines any additional penile or scrotal examination. Patient denies any concerns about sexually transmitted infection. Patient denies any penile drainage or discharge. Offered patient additional STD testing, patient declined at this time. - Vital Signs Vital signs: Temp Pulse Resp BP Pulse Ox 99.3 F 100 14 120/76 96 10/13/17 13:49 10/13/17 13:49 10/13/17 13:49 10/13/17 13:49 10/13/17 13:49 Discharge - Discharge Clinical Impression: Normal exam, concern about lymph node Condition: Stable Disposition: HOME, SELF-CARE Additional Instructions: Return immediately for any new or worsening symptoms Followup with your primary care provider, call tomorrow to make a followup appointment Your exam showed a normal lymph node to the groin area. If you are concerned about any kind of sexually transmitted infection and would like additional testing return here or follow-up with the health department [facility] - Follow up tomorrow
== END 2017-10-13 17:12 | disposition home or self-care (01) ==
LOC: ER 13:45
DX: Z03.89 Encounter for observation for other suspected diseases and conditions ruled out (principal); J45.909 Unspecified asthma, uncomplicated
CPT/HCPCS: 99283

== ENCOUNTER 2017-10-19 08:01 | Emergency (ER) | payer MEDICAID ==
[2017-10-19 08:10] VITALS: BP 118/65
[2017-10-19] MEDS ORDERED: ALBUTEROL SULFATE HFA (90 MCG/PUFF) 8 GM MDI (1 MDI/ER DISP) IH PRN (08:29)
--- NOTE | 2017-10-19 08:29 | ER Document Report ---
HPI - HPI Patient complains to provider of: Cough Onset: Other - 1-1/2-2 weeks Onset/Duration: Waxing and waning Pain Level: 2 Context: 32-year-old homeless male complaining of occasional sore throat, postnasal drip , cough, wheeze. Ex smoker. History of asthma. No chest pain, shortness of breath, fever. No abdominal pain. No nausea vomiting or diarrhea. Associated Symptoms: None Exacerbated by: Denies Relieved by: Denies Similar symptoms previously: Yes Recently seen / treated by doctor: No - ROS ROS below otherwise negative: Yes Systems Reviewed and Negative: Yes All other systems reviewed and negative - REPRODUCTIVE Reproductive: DENIES: : Past Medical History - General Information source: Patient - Social History Smoking Status: Former Smoker Frequency of alcohol use: Rare Drug Abuse: None Lives with: Homeless Family History: Reviewed & Not Pertinent Pulmonary Medical History: Reports: Hx Asthma Renal/ Medical History: Denies: Hx Peritoneal Dialysis GI Medical History: Reports: Hx Irritable Bowel - constipation Psychiatric Medical History: Reports: Hx Anxiety, Hx Bipolar Disorder, Hx Depression, Hx Personality Disorder, Hx Schizophrenia Past Surgical History: Reports: Hx Abdominal Surgery, Hx Appendectomy, Hx Cholecystectomy, Hx Orthopedic Surgery - finger - Immunizations Immunizations up to date: Yes Hx Diphtheria, Pertussis, Tetanus Vaccination: Yes - 2012 Hx Pneumococcal Vaccination: 08/23/00 Vertical Provider Document - CONSTITUTIONAL Agree With Documented VS: Yes Exam Limitations: No Limitations - INFECTION CONTROL TRAVEL OUTSIDE OF THE [place] IN LAST 30 DAYS: No - HEENT HEENT: Pharyngeal Erythema. negative: Conjuctival Injection, Tympanic Membrane Red, Tympanic Membrane Bulging Notes: right tm obscured by wax - NECK Neck: Supple. negative: Lymphadenopathy-Left, Lymphadenopathy-Right - RESPIRATORY Respiratory: Breath Sounds Normal, No Respiratory Distress O2 Sat by Pulse Oximetry: 94 - CARDIOVASCULAR Cardiovascular: Regular Rate, Regular Rhythm - NEURO Level of Consciousness: Awake, Alert - DERM Integumentary: Warm, Dry, No Rash Course - Vital Signs Vital signs: Temp Pulse Resp BP Pulse Ox 97.9 F 74 20 118/65 94 10/19/17 08:05 10/19/17 08:05 10/19/17 08:05 10/19/17 08:05 10/19/17 08:05 Discharge - Discharge Clinical Impression: Cough, History of asthma Upper respiratory infection Qualifiers: URI type: unspecified viral URI Qualified Code(s): J06.9 - Acute upper respiratory infection, unspecified Condition: Good Disposition: HOME, SELF-CARE Instructions: Upper Respiratory Illness ([facility]), Inhaled Bronchodilators ([facility]), Asthma ([facility]) Additional Instructions: Return to the emergency room if symptoms worsen use the albuterol metered-dose inhaler 2 puffs every 3-4 hours for cough or wheeze Drink plenty of fluids Prescriptions: Albuterol Sulfate [Proair HFA Inhalation Aerosol 8.5 gm MDI] 2 puff IH Q3HP PRN #1 [email or web address] PRN Reason:
== END 2017-10-19 08:40 | disposition home or self-care (01) ==
LOC: ER 08:01
DX: J06.9 Acute upper respiratory infection, unspecified (principal); R05 Cough; R09.82 Postnasal drip; J02.9 Acute pharyngitis, unspecified; J45.909 Unspecified asthma, uncomplicated; Z87.891 Personal history of nicotine dependence
CPT/HCPCS: 99282; J3490

== ENCOUNTER 2017-10-22 19:45 | Emergency (ER) | payer MEDICAID ==
[2017-10-22 19:56] VITALS: BP 125/79
--- NOTE | 2017-10-22 20:16 | ER Document Report ---
HPI - HPI Patient complains to provider of: Bump on the back of his head and black BM's Onset: Last week Onset/Duration: Persistent Pain Level: 3 Context: 32-year-old male saw Dr. Lamb this morning about his black bowel movements Dr. Lamb is setting up for colonoscopy. The patient denies abdominal pain. He also is complaining of a bump in the back of his head x 2 days that he wants me to look at. He came in by ambulance. Has not been taking Pepto- Bismol no history of GI bleed. Associated Symptoms: None Exacerbated by: Denies Relieved by: Denies Similar symptoms previously: No - REPRODUCTIVE Reproductive: DENIES: : Past Medical History - General Information source: Patient - Social History Smoking Status: Current Every Day Smoker Frequency of alcohol use: None Drug Abuse: None Lives with: Homeless Family History: Reviewed & Not Pertinent Pulmonary Medical History: Reports: Hx Asthma Renal/ Medical History: Denies: Hx Peritoneal Dialysis GI Medical History: Reports: Hx Irritable Bowel - constipation Psychiatric Medical History: Reports: Hx Anxiety, Hx Bipolar Disorder, Hx Depression, Hx Personality Disorder, Hx Schizophrenia Past Surgical History: Reports: Hx Abdominal Surgery, Hx Appendectomy, Hx Cholecystectomy, Hx Orthopedic Surgery - finger - Immunizations Immunizations up to date: Yes Hx Diphtheria, Pertussis, Tetanus Vaccination: Yes - 2012 Hx Pneumococcal Vaccination: 08/23/00 Vertical Provider Document - CONSTITUTIONAL Agree With Documented VS: Yes Exam Limitations: No Limitations General Appearance: No Apparent Distress - INFECTION CONTROL TRAVEL OUTSIDE OF THE [place] IN LAST 30 DAYS: No - HEENT HEENT: Normocephalic - NECK Neck: Supple. negative: Lymphadenopathy-Left, Lymphadenopathy-Right - RESPIRATORY Respiratory: Breath Sounds Normal, No Respiratory Distress O2 Sat by Pulse Oximetry: 98 - CARDIOVASCULAR Cardiovascular: Regular Rate, Regular Rhythm - GI/ABDOMEN Gastrointestinal: Abdomen Soft, Abdomen Non-Tender, No Organomegaly Notes: dark green stool sent for hemmocult - BACK Back: Normal Inspection - MUSCULOSKELETAL/EXTREMETIES Musculoskeletal/Extremeties: RIGO MCBRIDE - NEURO Level of Consciousness: Awake, Alert, Appropriate Motor/Sensory: No Motor Deficit, No Sensory Deficit - DERM Integumentary: Warm, Dry Course - Re-evaluation Re-evalutation: 10/22/17 21:47 Stool for Hemoccult is negative I gave the patient a copy of this result - Vital Signs Vital signs: Temp Pulse Resp BP Pulse Ox 98.3 F 60 14 125/79 98 10/22/17 19:55 10/22/17 19:55 10/22/17 19:55 10/22/17 19:55 10/22/17 19:55 Discharge - Discharge Clinical Impression: dark green stool Condition: Good Disposition: HOME, SELF-CARE Additional Instructions: see your doctor for follow up there is now microscopic blood in your bowel movement
== END 2017-10-22 21:58 | disposition home or self-care (01) ==
LOC: ER 19:45
DX: R19.5 Other fecal abnormalities (principal); R22.0 Localized swelling, mass and lump, head; F17.200 Nicotine dependence, unspecified, uncomplicated; Z90.49 Acquired absence of other specified parts of digestive tract
CPT/HCPCS: 82272; 99284

== ENCOUNTER 2017-10-24 09:18 | Emergency (ER) | payer MEDICAID ==
[2017-10-24] MEDS ORDERED: CEFTRIAXONE INJ 1000 MG VIAL IM ONE (09:55)
[2017-10-24] MEDS ORDERED: IBUPROFEN 600 MG TABLET PO ONE (09:55)
[2017-10-24] MEDS ORDERED: LIDOCAINE 1% INJ-PF (10 MG/ML) 30 ML SDV INFIL ONE (09:55)
[2017-10-24] MEDS ORDERED: CLINDAMYCIN HCL 150 MG CAPSULE PO ONE (09:55)
--- NOTE | 2017-10-24 10:01 | ER Document Report ---
HPI - HPI Patient complains to provider of: Facial infection Onset: Yesterday Onset/Duration: Gradual Quality of pain: Achy Pain Level: 2 Context: Patient complains of infection to the upper lip area. Patient states he had a pimple there that he popped yesterday and that the area has gradually become more swollen and tender. Patient without any fever. Associated Symptoms: denies: Fever Exacerbated by: Denies Relieved by: Denies Similar symptoms previously: No Recently seen / treated by doctor: Yes - ROS ROS below otherwise negative: Yes Systems Reviewed and Negative: Yes All other systems reviewed and negative - CONSTITUTIONAL Constitutional: DENIES: Fever, Chills - REPRODUCTIVE Reproductive: DENIES: : - DERM Notes: Tenderness swelling to upper lip area Past Medical History - General Information source: Patient - Social History Smoking Status: Never Smoker Frequency of alcohol use: Occasional Drug Abuse: None Family History: Reviewed & Not Pertinent Pulmonary Medical History: Reports: Hx Asthma Renal/ Medical History: Denies: Hx Peritoneal Dialysis GI Medical History: Reports: Hx Irritable Bowel - constipation Psychiatric Medical History: Reports: Hx Anxiety, Hx Bipolar Disorder, Hx Depression, Hx Personality Disorder, Hx Schizophrenia Past Surgical History: Reports: Hx Abdominal Surgery, Hx Appendectomy, Hx Cholecystectomy, Hx Orthopedic Surgery - finger - Immunizations Immunizations up to date: Yes Hx Diphtheria, Pertussis, Tetanus Vaccination: Yes - 2012 Hx Pneumococcal Vaccination: 08/23/00 Vertical Provider Document - CONSTITUTIONAL Agree With Documented VS: Yes Exam Limitations: No Limitations General Appearance: WD/WN, No Apparent Distress - INFECTION CONTROL TRAVEL OUTSIDE OF THE [place] IN LAST 30 DAYS: No - HEENT HEENT: Atraumatic, Normocephalic Notes: Developing abscess to upper lip area with upper lip swelling, no fluctuance - NECK Neck: Normal Inspection, Supple - RESPIRATORY Respiratory: Breath Sounds Normal, No Respiratory Distress O2 Sat by Pulse Oximetry: 99 - CARDIOVASCULAR Cardiovascular: Regular Rate, Regular Rhythm - BACK Back: Normal Inspection - MUSCULOSKELETAL/EXTREMETIES Musculoskeletal/Extremeties: MAEW - NEURO Level of Consciousness: Awake, Alert, Appropriate Motor/Sensory: No Motor Deficit - DERM Integumentary: Warm, Dry, Abscess - Developing abscess to upper lip area with surrounding soft tissue swelling. No area of fluctuance Course - Re-evaluation Re-evalutation: 10/24/17 Patient advised that he will need to return in 2 days for wound recheck to be sure that everything is healing properly. Discussed worsening symptoms that patient should return immediately for. Patient verbalized understanding and agrees with this plan of care. - Vital Signs Vital signs: Temp Pulse Resp BP Pulse Ox 99.7 F 88 20 137/111 H 99 10/24/17 09:22 18 09:22 10/24/17 09:22 10/24/17 09:22 10/24/17 09:22 Discharge - Discharge Clinical Impression: Facial abscess Condition: Stable Disposition: HOME, SELF-CARE Instructions: Abscess ([facility]), Anti-Inflammatory Medication ([facility]), Clindamycin ( [facility]), Rocephin ([facility]) Additional Instructions: Return immediately for any new or worsening symptoms Followup with your primary care provider, call tomorrow to make a followup appointment Return in 2 days for wound recheck. Return sooner for any increased facial swelling, fever or new concerning symptoms. Prescriptions: Clindamycin HCl [Cleocin Hcl] 300 mg PO QID #28 capsule Naproxen [Naprosyn 250 Nmg Tablet] 1 tab PO BID #14 tablet Referrals: GIANCARLO CHANCE MD [Primary Care Provider] - Follow up tomorrow
[2017-10-24 10:48] VITALS: BP 131/82
== END 2017-10-24 10:54 | disposition home or self-care (01) ==
LOC: ER 09:18
DX: L02.01 Cutaneous abscess of face (principal); J45.909 Unspecified asthma, uncomplicated
CPT/HCPCS: 99283; 96372; J3490 ×3; J0696

== ENCOUNTER 2017-10-24 19:42 | Emergency (ER) | payer MEDICAID ==
[2017-10-24 19:57] VITALS: BP 130/69
--- NOTE | 2017-10-24 21:05 | RADIOLOGY REPORT (SQ) ---
EXAM DESCRIPTION: ANKLE RIGHT COMPLETE COMPLETED DATE/TIME: 10/24/2017 8:53 pm REASON FOR STUDY: fell, pain COMPARISON: None. NUMBER OF VIEWS: Three views. TECHNIQUE: AP, lateral, and oblique radiographic images acquired of the right ankle. LIMITATIONS: None. FINDINGS: MINERALIZATION: Normal. BONES: No acute fracture or dislocation. No worrisome bone lesions. JOINTS: No effusions. SOFT TISSUES: No soft tissue swelling. No foreign body. OTHER: No other significant finding. IMPRESSION: NEGATIVE STUDY OF THE RIGHT ANKLE. NO RADIOGRAPHIC EVIDENCE OF ACUTE INJURY. TECHNICAL DOCUMENTATION: JOB ID: [id number] [employer]- All Rights Reserved Reading location - IP/workstation name: [email or web address]
[2017-10-24] MEDS ORDERED: CLINDAMYCIN HCL 150 MG CAPSULE PO ONE (21:54)
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
== END 2017-10-24 22:05 | disposition home or self-care (01) ==
LOC: ER 19:42
PROC: 2W3QX1Z Immobilization of Right Lower Leg using Splint (ICD-10-PCS; principal; 2017-10-24)
DX: S93.401A Sprain of unspecified ligament of right ankle, initial encounter (principal); K13.0 Diseases of lips; X58.XXXA Exposure to other specified factors, initial encounter; Y93.55 Activity, bike riding; Z90.49 Acquired absence of other specified parts of digestive tract
CPT/HCPCS: 99283; 73610; 29515; J3490

== ENCOUNTER 2017-11-04 22:00 | Emergency (ER) | payer MEDICAID ==
[2017-11-04 22:23] VITALS: BP 121/87
--- NOTE | 2017-11-06 02:20 | ER Document Report ---
ED General - General Chief Complaint: Other Stated Complaint: STOOL PROBLEM Time Seen by Provider: 11/04/17 23:40 Notes: Patient is a 32-year-old male well-known to the ED who presents with initial complaint of some black stools. Female physician's corporate legal assistant was going to the patient however she was concerned because the patient Has an interesting staff if the female doctor was going to begin to do his rectal exam. I decided to take care of the patient is status that sounded appropriate that he is requesting this. When I walked in room the patient tells me that he was having some black stool earlier but now it is clear that he feels that he is better. He denies abdominal pain. He denies any vomiting. He says even when his stool is darker he denies any blood reaching out from it when it was in the toilet water. He has no other complaints this time. He denies any rectal pain. TRAVEL OUTSIDE OF THE [place] IN LAST 30 DAYS: No - Related Data Allergies/Adverse Reactions: No Known Allergies Allergy (Verified 11/04/17 22:01) Past Medical History - Social History Smoking Status: Current Some Day Smoker Frequency of alcohol use: None Drug Abuse: None Family History: Reviewed & Not Pertinent Patient has suicidal ideation: No Patient has homicidal ideation: No Pulmonary Medical History: Reports: Hx Asthma Renal/ Medical History: Denies: Hx Peritoneal Dialysis GI Medical History: Reports: Hx Irritable Bowel - constipation Psychiatric Medical History: Reports: Hx Anxiety, Hx Bipolar Disorder, Hx Depression, Hx Personality Disorder, Hx Schizophrenia Past Surgical History: Reports: Hx Abdominal Surgery, Hx Appendectomy, Hx Cholecystectomy, Hx Orthopedic Surgery - finger - Immunizations Immunizations up to date: Yes Hx Diphtheria, Pertussis, Tetanus Vaccination: Yes - 2012 Hx Pneumococcal Vaccination: 08/23/00 Review of Systems - Review of Systems Notes: My Normal Review Basic REVIEW OF SYSTEMS: CONSTITUTIONAL : Denies fever, chills, or sweats. Denies recent illness. RESPIRATORY: Denies cough, cold, or chest congestion. Denies shortness of breath, difficulty breathing, or wheezing. GASTROINTESTINAL: Denies abdominal pain. Denies nausea, vomiting, or diarrhea. Single episode of dark stool. SKIN: Denies rash or skin lesions. HEMATOLOGIC : Denies easy bruising or bleeding. NEUROLOGICAL: Denies altered mental status or loss of consciousness. Denies headache. Denies weakness or paralysis or loss of use of either side. Denies problems with gait or speech. Denies sensory or motor loss. ALL OTHER SYSTEMS REVIEWED AND NEGATIVE. My Normal Review Basic Physical Exam - Vital signs Vitals: Temp Pulse Resp BP Pulse Ox 98.6 F 95 18 121/87 H 96 11/04/17 22:21 11/04/17 22:21 11/04/17 22:21 11/04/17 22:21 11/04/17 22:21 - Notes Notes: General Appearance: Well nourished, alert, cooperative, no acute distress, no obvious discomfort. Well-appearing. Vitals: reviewed, See vital signs table. Eyes: PERRL, EOMI, Conjuctiva clear Mouth: No decreasd moisture Lungs: No wheezing, No rales, No rhonci, No accessory muscle use, good air exchange bilaterally. Heart: Normal rate, Regular rythm, No murmur, no rub Abdomen: Normal BS, soft, No rigidity, No abdominal tenderness, No guarding, no rebound, no abdominal masses, no organomegaly Extremities: good pulses in all extremities, no swelling or tenderness in the extremities, no edema. Skin: warm, dry, appropriate color, no rash Neuro: speech clear, oriented x 3, normal affect, responds appropriately to questions. Course - Re-evaluation Re-evalutation: 11/06/17 02:19 Patient was initially requesting that a female physician see him and evaluate him to have formed. When I went in the room the patient no longer wanted the rectal exam and said that he only had a single episode of dark stool and has had normal colored stool since then. Informed patient he should return to ER immediately if he has any abdominal pain, any blood leaching from the stool in the toilet water, recurrent dark tarry stools. I encouraged him follow-up closely with his primary care doctor for reevaluation within the next 3-5 days. Patient agrees with plan and he will be discharged home. - Vital Signs Vital signs: Temp Pulse Resp BP Pulse Ox 98.6 F 95 18 121/87 H 96 11/04/17 22:21 11/04/17 22:21 11/04/17 22:21 11/04/17 22:21 11/04/17 22:21 Discharge - Discharge Clinical Impression: Dark stools Condition: Good Disposition: HOME, SELF-CARE Additional Instructions: Please return to the ER immediately if you have vomiting, abdominal pain, recurrent black stools, or stool that cause blood to be seen in the toilet water. Please return tot eh ER if you are feeling unwell in any way. Please follow up with Dr. Buchanan early next week for reevaluation. Referrals: GIANCARLO CHANCE MD [Primary Care Provider] - 11/08/17
== END 2017-11-05 00:09 | disposition home or self-care (01) ==
LOC: ER 22:00
DX: R19.5 Other fecal abnormalities (principal); F17.200 Nicotine dependence, unspecified, uncomplicated; J45.909 Unspecified asthma, uncomplicated; Z87.19 Personal history of other diseases of the digestive system; Z90.49 Acquired absence of other specified parts of digestive tract
CPT/HCPCS: 99283

== ENCOUNTER 2017-11-19 19:36 | Emergency (ER) | payer MEDICAID ==
[2017-11-19 19:49] VITALS: BP 129/89
--- NOTE | 2017-11-19 20:21 | ER Document Report ---
HPI - HPI Pain Level: 2 Notes: Patient is a 32-year-old male who presents to the ED complaining of occasional dry nonproductive cough, feeling of having to clear his throat ongoing for several weeks/months that is worse after he eats, right before he eats, and when he is lying down at bedtime. Patient states that he did eat 1 or 2 fish bones today that were small, but is not concerned as he has had a normal bowel movement thereafter. Patient has not had any issues with swallowing or any discomfort or pain. He denies any drug allergies. No other concerns or complaints at this time. Patient has had many recent and previous visits to the emergency department for various complaints. Denies any headache, fever, neck pain, URI, sore throat, chest pain, palpitations, syncope, shortness of breath, wheeze, dyspnea, abdominal pain, nausea/vomiting/diarrhea, urinary retention, dysuria, hematuria, or rash. - ROS Systems Reviewed and Negative: Yes All other systems reviewed and negative - REPRODUCTIVE Reproductive: DENIES: : Past Medical History - Social History Smoking Status: Unknown if Ever Smoked Family History: Reviewed & Not Pertinent Pulmonary Medical History: Reports: Hx Asthma Renal/ Medical History: Denies: Hx Peritoneal Dialysis GI Medical History: Reports: Hx Irritable Bowel - constipation Psychiatric Medical History: Reports: Hx Anxiety, Hx Bipolar Disorder, Hx Depression, Hx Personality Disorder, Hx Schizophrenia Past Surgical History: Reports: Hx Abdominal Surgery, Hx Appendectomy, Hx Cholecystectomy, Hx Orthopedic Surgery - finger - Immunizations Immunizations up to date: Yes Hx Diphtheria, Pertussis, Tetanus Vaccination: Yes - 2012 Hx Pneumococcal Vaccination: 08/23/00 Vertical Provider Document - CONSTITUTIONAL Agree With Documented VS: Yes Notes: PHYSICAL EXAMINATION: GENERAL: Well-appearing, well-nourished and in no acute distress. A&Ox4. Answers questions appropriately. Moves comfortably w/o notable distress HEAD: Atraumatic, normocephalic. EYES: Pupils equal round and reactive to light, extraocular movements intact, sclera anicteric, conjunctiva are normal. ENT: EAC clear b/l. TM's intact b/l without erythema, fluid, or perforation. Nares patent and with clear discharge. oropharynx w/o erythema without exudates. No tonsilar hypertrophy without erythema or exudate. No palatine shift. Uvula midline. No tongue protrusion. No drooling, hoarseness, or airway compromise. Moist mucous membranes. No sinus tenderness. NECK: Normal range of motion, supple without lymphadenopathy. No rigidity/ meningismus. LUNGS: Breath sounds clear to auscultation bilaterally and equal. No wheezes rales or rhonchi. No retractions HEART: Regular rate and rhythm without murmurs, rubs, gallops. ABDOMEN: Soft, nontender, nondistended abdomen. No guarding, no rebound. No masses appreciated. Normal bowel sounds present. No CVA tenderness bilaterally. NEUROLOGICAL: Normal speech, normal gait. Normal sensory, motor exams PSYCH: Normal mood, normal affect. SKIN: Warm, Dry, normal turgor, no rashes or lesions noted. - INFECTION CONTROL TRAVEL OUTSIDE OF THE [place] IN LAST 30 DAYS: No Course - Re-evaluation Re-evalutation: 11/19/17 20:24 Patient is an afebrile, well-hydrated, 32-year-old male who presents to the ED with symptoms consistent with GERD vitals are acceptable. PE is otherwise unremarkable. No other labs or imaging warranted at this time based on H&P. Patient is tolerating p.o. without any difficulties. Low suspicion for any systemic emergent condition at this time based on H&P. Patient is nontoxic- appearing and is very active within the room. I will be sending him home with a prescription for omeprazole. Recommend conservative measures for symptoms. Recheck with your PCM in 3-5 days. Return to the ED with any worsening/ concerning symptoms otherwise as reviewed discharge. Patient is in agreement. - Vital Signs Vital signs: Temp Pulse Resp BP Pulse Ox 98.8 F 92 18 129/89 H 97 11/19/17 19:47 11/19/17 19:47 11/19/17 19:47 11/19/17 19:47 11/19/17 19:47 Discharge - Discharge Clinical Impression: GERD (gastroesophageal reflux disease) Qualifiers: Esophagitis presence: esophagitis presence not specified Qualified Code(s): K21.9 - Gastro-esophageal reflux disease without esophagitis Condition: Stable Disposition: HOME, SELF-CARE Instructions: Reflux Disease (GERD) ([facility]) Additional Instructions: Maintain adequate fluid and food intake Avoid spicy foods, caffeine, alcohol, eating/drinking 2 hours before bedtime tylenol if needed Monitor for any worsening symptoms Recheck with your PCM in 3-5 days Consider consult with Gastroenterology for ongoing/worsening symptoms Return to the ED with any worsening symptoms and/or development of fever, headache, chest pain, palpitations, syncope, shortness of breath, trouble breathing, abdominal pain, n/v/d, blood in stool/urine, weakness, or other worsening symptoms that are concerning to you. Prescriptions: Omeprazole 20 mg PO DAILY #30 tablet.dr Forms: Elevated Blood Pressure Referrals: GIANCARLO CHANCE MD [Primary Care Provider] - Follow up in 3-5 days
== END 2017-11-19 20:27 | disposition home or self-care (01) ==
LOC: ER 19:36
DX: K21.9 Gastro-esophageal reflux disease without esophagitis (principal); R05 Cough; J45.909 Unspecified asthma, uncomplicated
CPT/HCPCS: 99282

== ENCOUNTER 2017-12-15 12:36 | Emergency (ER) | payer MEDICAID ==
[2017-12-15 12:46] VITALS: BP 119/71
--- NOTE | 2017-12-15 14:45 | ER Document Report ---
HPI - HPI Patient complains to provider of: Since both of his jaws, weight loss and green stool Onset: Just prior to arrival Pain Level: 2 Context: 32-year-old male complaining of numbness to bilateral jaw that lasted less than an hour after eating partially cooked pork. Someone else at the soup kitchen told him that it was not cooked completely so he tried to make himself vomit to get rid of it. His second question is weight loss and should he buy Ensure. He eats 2 meals a day. Third thing is he had a green stool after eating precooked chicken from [employer] without reheating it. Since he ate [employer] his stool is normal in color. He has no abdominal pain or chest pain. No abdominal pain. No fever. Associated Symptoms: None Exacerbated by: Denies Relieved by: Denies Similar symptoms previously: No Recently seen / treated by doctor: No - ROS ROS below otherwise negative: Yes Systems Reviewed and Negative: Yes All other systems reviewed and negative Past Medical History - General Information source: Patient - Social History Smoking Status: Never Smoker Chew tobacco use (# tins/day): No Frequency of alcohol use: Occasional Drug Abuse: None Lives with: Homeless Family History: Reviewed & Not Pertinent Patient has suicidal ideation: No Patient has homicidal ideation: No Pulmonary Medical History: Reports: Hx Asthma Renal/ Medical History: Denies: Hx Peritoneal Dialysis GI Medical History: Reports: Hx Irritable Bowel - constipation Psychiatric Medical History: Reports: Hx Anxiety, Hx Bipolar Disorder, Hx Depression, Hx Personality Disorder, Hx Schizophrenia Past Surgical History: Reports: Hx Abdominal Surgery, Hx Appendectomy, Hx Cholecystectomy, Hx Orthopedic Surgery - finger - Immunizations Immunizations up to date: Yes Hx Diphtheria, Pertussis, Tetanus Vaccination: Yes - 2012 Hx Pneumococcal Vaccination: 08/23/00 Vertical Provider Document - CONSTITUTIONAL Agree With Documented VS: Yes Exam Limitations: No Limitations - INFECTION CONTROL TRAVEL OUTSIDE OF THE [place] IN LAST 30 DAYS: No - HEENT HEENT: PERRLA. negative: Conjuctival Injection, Pharyngeal Erythema - NECK Neck: Supple. negative: Lymphadenopathy-Left, Lymphadenopathy-Right - RESPIRATORY Respiratory: Breath Sounds Normal, No Respiratory Distress - CARDIOVASCULAR Cardiovascular: Regular Rate, Regular Rhythm - MUSCULOSKELETAL/EXTREMETIES Musculoskeletal/Extremeties: MAEW - NEURO Level of Consciousness: Awake, Alert Motor/Sensory: No Motor Deficit, No Sensory Deficit - DERM Integumentary: Warm, Dry, No Rash Course - Vital Signs Vital signs: Temp Pulse Resp BP Pulse Ox 98.4 F 82 16 119/71 98 12/15/17 12:44 12/15/17 12:44 12/15/17 12:44 12/15/17 12:44 12/15/17 12:44 Discharge - Discharge Clinical Impression: parathesia, Weight loss Condition: Good Disposition: HOME, SELF-CARE Instructions: Numbness or Paresthesia ([facility]) Additional Instructions: Eat 3 meals a day plus snacks Calorie dense food include peanuts, nuts, avocado, peanut butter, will, butter, mayonnaise, beef and cheese Return to the emergency room any concerns Referrals: GIANCARLO CHANCE MD [Primary Care Provider] - Follow up as needed
== END 2017-12-15 15:09 | disposition home or self-care (01) ==
LOC: ER 12:36
DX: R20.0 Anesthesia of skin (principal); R63.4 Abnormal weight loss; Z68.1 Body mass index [BMI] 19.9 or less, adult; J45.909 Unspecified asthma, uncomplicated; R19.5 Other fecal abnormalities
CPT/HCPCS: 99283

== ENCOUNTER 2017-12-22 01:06 | Emergency (ER) | payer MEDICAID ==
[2017-12-22 01:20] VITALS: BP 113/76
--- NOTE | 2017-12-22 01:45 | ER Document Report ---
HPI - HPI Pain Level: 2 Context: Patient is a 32-year-old male who returns emergency department with a chief complaint of decreased appetite. Patient states that over the past couple weeks he has had some weight loss and had questions about what he is able to eat to put on weight. His question was specific if he is allowed to drink Ensure and how many times a day. Otherwise he denies any difficulty swallowing , nausea, vomiting, abdominal pain, diarrhea or constipation at this time. - REPRODUCTIVE Reproductive: DENIES: : Past Medical History - Social History Smoking Status: Smoker,Current Status Unk Family History: Reviewed & Not Pertinent Pulmonary Medical History: Reports: Hx Asthma Renal/ Medical History: Denies: Hx Peritoneal Dialysis GI Medical History: Reports: Hx Irritable Bowel - constipation Psychiatric Medical History: Reports: Hx Anxiety, Hx Bipolar Disorder, Hx Depression, Hx Personality Disorder, Hx Schizophrenia Past Surgical History: Reports: Hx Abdominal Surgery, Hx Appendectomy, Hx Cholecystectomy, Hx Orthopedic Surgery - finger - Immunizations Immunizations up to date: Yes Hx Diphtheria, Pertussis, Tetanus Vaccination: Yes - 2012 Hx Pneumococcal Vaccination: 08/23/00 Vertical Provider Document - CONSTITUTIONAL Agree With Documented VS: Yes Notes: PHYSICAL EXAM GENERAL: Alert, interacts well. HEAD: Normocephalic, atraumatic. EYES: Pupils equal, round, and reactive to light. Extraocular movements intact. ENT: Oral mucosa moist, tongue midline. NECK: Full range of motion. Supple. Trachea midline. LUNGS: Clear to auscultation bilaterally, no wheezes, rales, or rhonchi. No respiratory distress. HEART: Regular rate and rhythm. No murmurs, gallops, or rubs. ABDOMEN: Soft, nondistended, nontender. No guarding, rebound, or rigidity.. Bowel sounds present in all 4 quadrants. NEUROLOGICAL: Alert and oriented x4. Normal speech. PSYCH: Normal affect, normal mood. SKIN: Warm, dry, normal turgor. No rashes or lesions noted. - INFECTION CONTROL TRAVEL OUTSIDE OF THE [place] IN LAST 30 DAYS: No Course - Re-evaluation Re-evalutation: Patient is a well 32-year-old male who presents emergency department with questions about diet adjustments for weight gain. Review of the patient's chart shows that he weighs 55 kg in regards to his previous weights of either 57 -60. Patient does not appear to be cachectic at this time and is able to tolerate p.o. without any difficulty. Do not appreciate any evidence of acute dehydration. Patient's vital signs are stable. Discussed with him that he can utilize Ensure if he desires as a meal replacement but otherwise discussed appropriate foods to eat. - Vital Signs Vital signs: Temp Pulse Resp BP Pulse Ox 97.7 F 80 18 113/76 100 12/22/17 01:12/22/17 01:17 12/22/17 01:17 12/22/17 01:12/22/17 01:17 Discharge - Discharge Clinical Impression: Well adult exam Condition: Good Disposition: HOME, SELF-CARE Additional Instructions: You have been seen today in the Emergency Department for your concerns. At this time there is no obvious cause for your concerns. You may have received labs or imaging which you can receive copies of from medical records. If your symptoms do worsen or new symptoms occur you must return immediately for further care. Either way you must follow up with the primary care physician for further evaluation Referrals: GIANCARLO CHANCE MD [Primary Care Provider] - Follow up as needed
== END 2017-12-22 01:45 | disposition home or self-care (01) ==
LOC: ER 01:06
DX: Z00.00 Encounter for general adult medical examination without abnormal findings (principal); R63.0 Anorexia; F17.200 Nicotine dependence, unspecified, uncomplicated; J45.909 Unspecified asthma, uncomplicated
CPT/HCPCS: 99282

== ENCOUNTER 2017-12-31 12:42 | Emergency (ER) | payer MEDICAID ==
[2017-12-31] MEDS ORDERED: LORATADINE 10 MG TABLET PO ONE (12:51)
[2017-12-31] MEDS ORDERED: ACETAMINOPHEN 325 MG TABLET PO ONE (12:52)
--- NOTE | 2017-12-31 12:53 | ER Document Report ---
HPI - HPI Patient complains to provider of: Cough congestion mucous Onset: This morning Onset/Duration: Gradual Quality of pain: No pain Severity: None Pain Level: Denies Associated Symptoms: Productive cough, Rhinnorhea, Sinus pain/drainage Exacerbated by: Other - Percussion at the chiropractor Relieved by: Denies Similar symptoms previously: Yes Recently seen / treated by doctor: Yes - ROS ROS below otherwise negative: Yes - CONSTITUTIONAL Constitutional: DENIES: Fever, Chills - EENT EENT: REPORTS: Nasal Drainage-Purulent, Congestion. DENIES: Sore Throat, Ear Pain, Nasal Drainage-Clear, Eye problems - NEURO Neurology: DENIES: Headache, Weakness, Vision blurred, Dizzinesss / Vertigo - CARDIOVASCULAR Cardiovascular: DENIES: Chest pain - RESPIRATORY Respiratory: REPORTS: Coughing. DENIES: Trouble Breathing - GASTROINTESTINAL Gastrointestinal: DENIES: Abdominal Pain, Nausea, Patient vomiting, Diarrhea, Constipation, Black / Bloody Stools - URINARY Urinary: DENIES: Dysuria, Urgency, Frequency - REPRODUCTIVE Reproductive: DENIES: :, Postmenopausal, Abnormal bleeding / discharge - MUSCULOSKELETAL Musculoskeletal: DENIES: Extremity pain, Back Pain, Neck Pain, Swelling - DERM Skin Color: Normal Skin Problems: None Past Medical History - General Information source: Patient - Social History Smoking Status: Former Smoker Cigarette use (# per day): No Chew tobacco use (# tins/day): No Smoking Education Provided: No Frequency of alcohol use: Social Drug Abuse: None Family History: Reviewed & Not Pertinent Patient has suicidal ideation: No Patient has homicidal ideation: No - Past Medical History Cardiac Medical History: Reports: None Pulmonary Medical History: Reports: Hx Asthma EENT Medical History: Reports: None Neurological Medical History: Reports: None Endocrine Medical History: Reports: None Renal/ Medical History: Reports: None Malignancy Medical History: Reports None GI Medical History: Reports: None, Hx Irritable Bowel - constipation Musculoskeltal Medical History: Reports Hx Arthritis, Reports Hx Musculoskeletal Trauma Skin Medical History: Reports None Psychiatric Medical History: Reports: Hx Anxiety, Hx Bipolar Disorder, Hx Depression, Hx Personality Disorder, Hx Schizophrenia Traumatic Medical History: Reports: None Infectious Medical History: Reports: None Past Surgical History: Reports: Hx Cholecystectomy, Hx Orthopedic Surgery - finger - Immunizations Immunizations up to date: Yes Hx Diphtheria, Pertussis, Tetanus Vaccination: Yes - 2012 Hx Pneumococcal Vaccination: 08/23/00 Vertical Provider Document - CONSTITUTIONAL Agree With Documented VS: Yes Exam Limitations: No Limitations General Appearance: WD/WN, No Apparent Distress - INFECTION CONTROL TRAVEL OUTSIDE OF THE [place] IN LAST 30 DAYS: No - HEENT HEENT: Atraumatic. negative: Normal ENT Exam - Purulent nasal drainage with congestion - NECK Neck: Normal Inspection - RESPIRATORY Respiratory: Breath Sounds Normal, No Respiratory Distress - CARDIOVASCULAR Cardiovascular: Regular Rate, Regular Rhythm - BACK Back: Normal Inspection - MUSCULOSKELETAL/EXTREMETIES Musculoskeletal/Extremeties: MAEW, FROM, Non-Tender - NEURO Level of Consciousness: Awake, Alert, Appropriate Motor/Sensory: No Motor Deficit, No Sensory Deficit - DERM Integumentary: Warm, Dry, No Rash Course - Re-evaluation Re-evalutation: 12/31/17 12:58 After performing a Medical Screening Examination, I estimate there is LOW risk for ACUTE CORONARY SYNDROME, RESPIRATORY FAILURE, SEPSIS OR MENINGITIS, thus I consider the discharge disposition reasonable. I have reevaluated this patient multiple times and no significant life threatening changes are noted. The patient and I have discussed the diagnosis and risks, and we agree with discharging home with close follow-up. We also discussed returning to the Emergency Department immediately if new or worsening symptoms occur. We have discussed the symptoms which are most concerning (e.g., changing or worsening pain, trouble swallowing or breathing, neck stiffness, fever) that necessitate immediate return. - Diagnostic Test Radiology reviewed: Image reviewed, Reports reviewed Discharge - Discharge Clinical Impression: URI (upper respiratory infection) Qualifiers: URI type: unspecified URI Qualified Code(s): J06.9 - Acute upper respiratory infection, unspecified Condition: Stable Disposition: HOME, SELF-CARE Additional Instructions: UPPER RESPIRATORY ILLNESS: You have a viral infection of the respiratory passages -- a "cold." This common infection causes nasal congestion, drainage, and often sore throat and cough. It is highly contagious. The disease usually lasts about 10 to 14 days. There is no "cure" for the viral infection -- it must run its course. If there is a complication, such as bacterial infection in the nose, sinuses, middle ear, or bronchial tubes, antibiotics may be required. The antibiotics won't affect the virus. Drink plenty of fluids. A humidifier may help. An expectorant medication or decongestant may make you more comfortable. Use acetaminophen or ibuprofen for fever or aches. See the doctor if fever persists over two days, if there is any significant worsening of your symptoms, or if you simply fail to improve as expected. You have been given Claritin for your viral upper respiratory infection chest x- ray showed no acute changes the coughing is because of your viral upper respiratory infection USE OF ACETAMINOPHEN (Tylenol): Acetaminophen may be taken for pain relief or fever control. It's much safer than aspirin, offering a wider range of "safe" dosages. It is safe during . Some brand names are Tylenol, Panadol, Datril, Anacin 3, Tempra, and Liquiprin. Acetaminophen can be repeated every four hours. The following are maximum recommended dosages: >89 pounds or adults 650 mg to 900 mg Acetaminophen can be repeated every four hours. Maximum dose not to exceed 4000 mg a day. FOLLOW-UP CARE: If you have been referred to a physician for follow-up care, call the physician s office for an appointment as you were instructed or within the next two days. If you experience worsening or a significant change in your symptoms, notify the physician immediately or return to the Emergency Department at any time for re-evaluation. Forms: Elevated Blood Pressure, Return to Work Referrals: GIANCARLO CHANCE MD [ACTIVE STAFF] - Follow up as needed
[2017-12-31 12:55] VITALS: BP 127/77
--- NOTE | 2017-12-31 13:17 | RADIOLOGY REPORT (SQ) ---
EXAM DESCRIPTION: CHEST 2 VIEWS COMPLETED DATE/TIME: 12/31/2017 1:05 pm REASON FOR STUDY: cough congestion COMPARISON: None. EXAM PARAMETERS: NUMBER OF VIEWS: two views TECHNIQUE: Digital Frontal and Lateral radiographic views of the chest acquired. RADIATION DOSE: NA LIMITATIONS: none FINDINGS: LUNGS AND PLEURA: No opacities, masses or pneumothorax. No pleural effusion. MEDIASTINUM AND HILAR STRUCTURES: No masses or contour abnormalities. HEART AND VASCULAR STRUCTURES: Heart normal size. No evidence for failure. BONES: No acute findings. HARDWARE: None in the chest. OTHER: No other significant finding. IMPRESSION: NO ACUTE RADIOGRAPHIC FINDING IN THE CHEST. TECHNICAL DOCUMENTATION: JOB ID: [id number] [employer]- All Rights Reserved Reading location - IP/workstation name: Unknown
== END 2017-12-31 13:35 | disposition home or self-care (01) ==
LOC: ER 12:42
DX: J06.9 Acute upper respiratory infection, unspecified (principal); R05 Cough; J34.89 Other specified disorders of nose and nasal sinuses; J45.909 Unspecified asthma, uncomplicated; Z87.891 Personal history of nicotine dependence
CPT/HCPCS: 99283; 71046; J3490 ×2

== ENCOUNTER 2018-01-11 11:39 | Emergency (ER) | payer MEDICAID ==
[2018-01-11 11:53] VITALS: BP 124/92
[2018-01-11] MEDS ORDERED: ALBUTEROL SULFATE HFA (90 MCG/PUFF) 8 GM MDI (1 MDI/ER DISP) IH ONE (13:43)
--- NOTE | 2018-01-11 13:50 | ER Document Report ---
ED General - General Chief Complaint: Ankle Swelling Stated Complaint: ANKLE SWELLING Time Seen by Provider: 01/11/18 13:36 Mode of Arrival: Ambulatory Information source: Patient Notes: 32-year-old male presented to ED for concern that he had some swelling and drainage from his ankle but there is no swelling or drainage noted to his ankle. He states he also needs a refill on his albuterol so he does not have asthma attack. TRAVEL OUTSIDE OF THE [place] IN LAST 30 DAYS: No - HPI Onset: Other - Patient states he does not have any pain or swelling to his ankle he states he just felt that he was having drainage and it was concerned is no drainage from his ankle Quality of pain: No pain Severity: None Pain Level: Denies Context: 32-year-old male presented to ED for complaint of "something draining from his ankle and leg "he states that this started yesterday. He states he has not felt any drainage but he just thought there should be some drainage because it felt funny. Denies any pain. He is ambulating with the even steady gait. States there may be some toxins in his intestines causing the drainage from his ankle. He states he has a metal taste in his mouth and he thought he might be sick. He states he also is out of his albuterol inhaler. He states he recently went to Dr. Chance and forgot to get a prescription for his inhaler. There is no drainage there is no redness there is no pain anywhere today. His lungs are clear at this time. Associated symptoms: Other - States he felt like there may be some range from his ankle but there is no abscess no ulcers no sores Exacerbated by: Denies Relieved by: Denies Similar symptoms previously: No Recently seen / treated by doctor: Yes - Related Data Allergies/Adverse Reactions: No Known Allergies Allergy (Verified 01/11/18 13:54) Past Medical History - General Information source: Patient - Social History Smoking Status: Former Smoker Cigarette use (# per day): No Chew tobacco use (# tins/day): No Smoking Education Provided: No Frequency of alcohol use: Social Drug Abuse: None Occupation: None Family History: Reviewed & Not Pertinent Patient has suicidal ideation: No Patient has homicidal ideation: No - Past Medical History Cardiac Medical History: Reports: None Pulmonary Medical History: Reports: Hx Asthma EENT Medical History: Reports: None Neurological Medical History: Reports: None Endocrine Medical History: Reports: None Renal/ Medical History: Reports: None Malignancy Medical History: Reports None GI Medical History: Reports: Hx Irritable Bowel - constipation Musculoskeltal Medical History: Reports Hx Arthritis, Reports Hx Musculoskeletal Trauma Skin Medical History: Reports None Psychiatric Medical History: Reports: Hx Anxiety, Hx Bipolar Disorder, Hx Depression, Hx Personality Disorder, Hx Schizophrenia Traumatic Medical History: Reports: None Infectious Medical History: Reports: None Past Surgical History: Reports: Hx Abdominal Surgery, Hx Appendectomy, Hx Cholecystectomy, Hx Orthopedic Surgery - finger - Immunizations Immunizations up to date: Yes Hx Diphtheria, Pertussis, Tetanus Vaccination: Yes - 2012 Hx Pneumococcal Vaccination: 08/23/00 Review of Systems - Review of Systems Constitutional: No symptoms reported EENT: No symptoms reported Cardiovascular: No symptoms reported Respiratory: No symptoms reported Gastrointestinal: No symptoms reported Genitourinary: No symptoms reported Male Genitourinary: No symptoms reported Musculoskeletal: No symptoms reported Skin: Other - Patient states he felt there was some toxins draining from his leg and that he has toxins in his stomach. He denies any noticeable drainage any redness any swelling or any pain from his leg. He states he also thinks he has toxins in his abdomen. Hematologic/Lymphatic: No symptoms reported Neurological/Psychological: No symptoms reported -: Yes All other systems reviewed and negative Physical Exam - Vital signs Vitals: Temp Pulse Resp BP Pulse Ox 98.2 F 78 18 124/92 H 96 01/11/18 11:45 01/11/18 11:45 01/11/18 11:45 01/11/18 11:45 01/11/18 11:45 Interpretation: Normal - General General appearance: Appears well, Alert - HEENT Head: Normocephalic, Atraumatic Eyes: Normal Pupils: PERRL - Respiratory Respiratory status: No respiratory distress Chest status: Nontender Breath sounds: Normal Chest palpation: Normal - Cardiovascular Rhythm: Regular Heart sounds: Normal auscultation Murmur: No - Abdominal Inspection: Normal Distension: No distension Bowel sounds: Normal Tenderness: Nontender Organomegaly: No organomegaly - Back Back: Normal, Nontender - Extremities General upper extremity: Normal inspection, Nontender, Normal color, Normal ROM , Normal temperature General lower extremity: Normal inspection, Nontender, Normal color, Normal ROM , Normal temperature, Normal weight bearing. No: Esdras's sign - Neurological Neuro grossly intact: Yes Cognition: Normal Orientation: AAOx4 Jasmin Coma Scale Eye Opening: Spontaneous Jasmin Coma Scale Verbal: Oriented [place] Coma Scale Motor: Obeys Commands [place] Coma Scale Total: 15 Speech: Normal Motor strength normal: LUE, RUE, LLE, RLE Sensory: Normal - Psychological Associated symptoms: Normal affect, Normal mood - Skin Skin Temperature: Warm Skin Moisture: Dry Skin Color: Normal Course - Re-evaluation Re-evalutation: 01/11/18 15:02 Patient was seen in the ED today for "toxins coming out of his legs and toxins in his intestines. "He also wanted a refill on his albuterol inhaler because he forgot to ask Dr. Chance for a refill. He had a complete negative assessment at on today's visit. He denied any pain anywhere. He denies any drainage from anywhere. He denies any shortness of breath at this time. He states that he is afraid that he does not have an inhaler that he will have to come back in here for shortness of breath and wheezing. - Vital Signs Vital signs: Temp Pulse Resp BP Pulse Ox 98.2 F 78 18 124/92 H 96 01/11/18 11:45 01/11/18 11:45 01/11/18 11:45 01/11/18 11:45 01/11/18 11:45 Discharge - Discharge Clinical Impression: Patient concerned regarding ankle, Medicine refill Condition: Stable Disposition: HOME, SELF-CARE Additional Instructions: I have examined your ankle and your leg and there is no drainage no redness and no signs of infection You are requesting a refill on your albuterol and would like a inhaler at this time. I have given you an inhaler today but you need to refill the prescription and get your refills from Dr. Chance instead of the emergency room. FOLLOW-UP CARE: If you have been referred to a physician for follow-up care, call the physician s office for an appointment as you were instructed or within the next two days. If you experience worsening or a significant change in your symptoms, notify the physician immediately or return to the Emergency Department at any time for re-evaluation. Prescriptions: Albuterol Sulfate [Proair HFA Inhalation Aerosol 8.5 gm MDI] 2 puff IH Q4H PRN # 1 mdi PRN Reason: Forms: Elevated Blood Pressure Referrals: GIANCARLO CHANCE MD [ACTIVE STAFF] - Follow up as needed
== END 2018-01-11 13:55 | disposition home or self-care (01) ==
LOC: ER 11:39
DX: Z71.1 Person with feared health complaint in whom no diagnosis is made (principal)
CPT/HCPCS: 99283; J3490

== ENCOUNTER 2018-01-26 19:17 | Emergency (ER) | payer MEDICAID ==
[2018-01-26 19:44] VITALS: BP 113/69
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
== END 2018-01-26 20:25 | disposition home or self-care (01) ==
LOC: ER 19:17
DX: J02.9 Acute pharyngitis, unspecified (principal); Z90.49 Acquired absence of other specified parts of digestive tract
CPT/HCPCS: 99282

== ENCOUNTER 2018-01-27 10:15 | Emergency (ER) | payer MEDICAID ==
[2018-01-27 10:19] VITALS: BP 125/78
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
[2018-01-27] MEDS ORDERED: POLYMYXIN B SULFATE/TMP OPH SOLN (10 ML/ER DISP) OS SCH (11:45)
== END 2018-01-27 11:46 | disposition home or self-care (01) ==
LOC: ER 10:15
DX: S05.02XA Injury of conjunctiva and corneal abrasion without foreign body, left eye, initial encounter (principal); H57.12 Ocular pain, left eye; W22.8XXA Striking against or struck by other objects, initial encounter; Z87.891 Personal history of nicotine dependence; J45.909 Unspecified asthma, uncomplicated
CPT/HCPCS: 99283; J3490

== ENCOUNTER 2018-02-10 05:43 | Emergency (ER) | payer MEDICAID ==
[2018-02-10] MEDS ORDERED: MAG HYDROX/AL HYDROX/SIMETH SUSP 30 ML UDCUP PO ONE (07:50)
[2018-02-10 08:51] LABS: ABSOLUTE BASOPHILS # (AUTO) 0.1 10^3/uL (0.0-0.2); ABSOLUTE EOSINOPHILS # (AUTO) 0.6 10^3/uL (0.0-0.6); ABSOLUTE LYMPHOCYTES (AUTO) 1.3 10^3/uL (0.5-4.7); ABSOLUTE MONOCYTES (AUTO) 0.3 10^3/uL (0.1-1.4); BASOPHILS % (AUTO) 1.6 % (0-2); EOSINOPHILS % (AUTO) 19.3 % (0-6); HEMATOCRIT 39.4 % (37.9-51.0); LYMPHOCYTES % (AUTO) 39.1 % (13-45); MEAN CORPUSCULAR HEMOGLOBIN 26.8 pg (27.0-33.4); MEAN CORPUSCULAR VOLUME 81 fl (80-97); MONOCYTES % (AUTO) 9.4 % (3-13); PLATELET COUNT 218 10^3/uL (150-450); RED BLOOD COUNT 4.85 10^6/uL (4.35-5.55); RED CELL DISTRIBUTION WIDTH 15.5 % (11.5-14.0); SEGMENTED NEUTROPHILS % (AUTO) 30.6 % (42-78); TOTAL CELLS COUNTED % (AUTO) 100 %; WHITE BLOOD COUNT 3.3 10^3/uL (4.0-10.5)
[2018-02-10 09:13] LABS: ALANINE AMINOTRANSFERASE 25 U/L (21-72); ALBUMIN 4.2 g/dL (3.5-5.0); ALKALINE PHOSPHATASE 65 U/L (38-126); ANION GAP 11 (5-19); ASPARTATE AMINO TRANSFERASE 38 U/L (17-59); BILIRUBIN,DIRECT 0.3 mg/dL (0.0-0.4); BILIRUBIN,TOTAL 0.9 mg/dL (0.2-1.3); BLOOD UREA NITROGEN 16 mg/dL (7-20); CALCIUM 9.6 mg/dL (8.4-10.2); CARBON DIOXIDE 29 mmol/L (22-30); CHLORIDE 106 mmol/L (98-107); CREATINE KINASE 295 U/L (55-170); GLUCOSE 86 mg/dL (75-110); LIPASE 75.2 U/L (23-300); POTASSIUM 5.2 mmol/L (3.6-5.0); SODIUM 145.8 mmol/L (137-145); TOTAL PROTEIN 7.2 g/dL (6.3-8.2)
[2018-02-10 09:27] LABS: TROPONIN I < 0.012 ng/mL
--- NOTE | 2018-02-10 09:39 | RADIOLOGY REPORT (SQ) ---
EXAM DESCRIPTION: CHEST 2 VIEWS COMPLETED DATE/TIME: 02/10/2018 9:03 am REASON FOR STUDY: epig pain COMPARISON: 12/31/2017, 06/27/2017, 07/12/2016 chest films EXAM PARAMETERS: NUMBER OF VIEWS: two views TECHNIQUE: Digital Frontal and Lateral radiographic views of the chest acquired. RADIATION DOSE: NA LIMITATIONS: none FINDINGS: LUNGS AND PLEURA: No opacities, masses or pneumothorax. No pleural effusion. MEDIASTINUM AND HILAR STRUCTURES: No masses or contour abnormalities. HEART AND VASCULAR STRUCTURES: Heart normal size. No evidence for failure. BONES: No acute findings. HARDWARE: None in the chest. OTHER: No other significant finding. IMPRESSION: NO ACUTE RADIOGRAPHIC FINDING IN THE CHEST. TECHNICAL DOCUMENTATION: JOB ID: [id number] [employer]- All Rights Reserved Reading location - IP/workstation name: [email or web address]
--- NOTE | 2018-02-10 09:46 | EKG REPORT ---
SEVERITY:- ABNORMAL ECG - SINUS BRADYCARDIA INFERIOR ST AND ANTERIOR ST ELEVATION SUGGESTIVE OF EARLY REPOLARIZATION CHANGES VS PERICARDITIS VS AC ISCHEMIA, CLINICAL CORRELATION REQUESTED. LATERAL LEADS ARE ALSO INVOLVED BORDERLINE ST ELEVATION, ANTERIOR LEADS : Confirmed by: Fernando Delarosa 10-Feb-2018 09:45:42
--- NOTE | 2018-02-10 10:25 | ER Document Report ---
ED GI/ - General Chief Complaint: Abdominal Pain Stated Complaint: NAUSEA Time Seen by Provider: 02/10/18 07:14 Mode of Arrival: Ambulatory Information source: Patient Notes: Patient presents complaining of epigastric pain that started yesterday afternoon after eating peanuts and fig newtons at the soup kitchen. Patient is concerned that the combination of foods irritate his stomach. Patient denies any nausea vomiting or diarrhea. Patient denies any chest pain or cough. Patient denies any fever. TRAVEL OUTSIDE OF THE [place] IN LAST 30 DAYS: No - HPI Patient complains to provider of: Abdominal pain Onset: Yesterday Timing/Duration: Gradual Quality of pain: Achy Pain Level: 1 Location: Epigastric Associated symptoms: denies: Chest pain, Constipation, Diarrhea, Fever, Loss of appetite, Nausea, Urinary hesitancy, Urinary frequency, Urinary retention, Urinary urgency, Vomiting Exacerbated by: Denies Relieved by: Denies Similar symptoms previously: No Recently seen / treated by doctor: No - Related Data Allergies/Adverse Reactions: No Known Allergies Allergy (Verified 01/27/18 10:16) Past Medical History - General Information source: Patient - Social History Smoking Status: Never Smoker Frequency of alcohol use: None Drug Abuse: None Occupation: None Lives with: Homeless Family History: Reviewed & Not Pertinent Patient has suicidal ideation: No Patient has homicidal ideation: No Pulmonary Medical History: Reports: Hx Asthma Renal/ Medical History: Denies: Hx Peritoneal Dialysis GI Medical History: Reports: Hx Irritable Bowel - constipation Musculoskeltal Medical History: Reports Hx Arthritis, Reports Hx Musculoskeletal Trauma Psychiatric Medical History: Reports: Hx Anxiety, Hx Bipolar Disorder, Hx Depression, Hx Personality Disorder, Hx Schizophrenia Past Surgical History: Reports: Hx Abdominal Surgery, Hx Appendectomy, Hx Cholecystectomy, Hx Orthopedic Surgery - finger - Immunizations Immunizations up to date: Yes Hx Diphtheria, Pertussis, Tetanus Vaccination: Yes - 2012 Hx Pneumococcal Vaccination: 08/23/00 Review of Systems - Review of Systems Constitutional: No symptoms reported. denies: Fever, Recent illness EENT: No symptoms reported Cardiovascular: No symptoms reported. denies: Chest pain, Dyspnea, Syncope Respiratory: No symptoms reported. denies: Cough, Short of breath Gastrointestinal: Abdominal pain. denies: Diarrhea, Nausea, Vomiting, Poor appetite Genitourinary: No symptoms reported. denies: Dysuria, Flank pain Male Genitourinary: No symptoms reported Musculoskeletal: No symptoms reported. denies: Back pain Skin: No symptoms reported Hematologic/Lymphatic: No symptoms reported Neurological/Psychological: No symptoms reported Physical Exam - Vital signs Vitals: Temp Pulse Resp BP Pulse Ox 97.5 F 72 16 116/88 H 100 02/10/18 06:13 02/10/18 06:13 02/10/18 06:13 02/10/18 06:13 02/10/18 06:13 - General General appearance: Appears well, Alert In distress: None - HEENT Head: Normocephalic, Atraumatic Eyes: Normal Conjunctiva: Normal Nasal: Normal Mouth/Lips: Normal Mucous membranes: Normal Neck: Normal, Supple. No: Lymphadenopathy - Respiratory Respiratory status: No respiratory distress Chest status: Nontender Breath sounds: Normal. No: Rales, Rhonchi, Stridor, Wheezing Chest palpation: Normal - Cardiovascular Rhythm: Regular Heart sounds: S1 appreciated, S2 appreciated Murmur: No - Abdominal Inspection: Normal Distension: No distension Bowel sounds: Normal Tenderness: Tender - epigastric Organomegaly: No organomegaly - Back Back: Normal, Nontender. No: CVA tenderness - Extremities General upper extremity: Normal inspection, Nontender, Normal strength General lower extremity: Normal inspection, Nontender, Normal strength - Neurological Neuro grossly intact: Yes Cognition: Normal Jasmin Coma Scale Eye Opening: Spontaneous [employer] Coma Scale Verbal: Oriented Jasmin Coma Scale Motor: Obeys Commands [employer] Coma Scale Total: 15 - Psychological Associated symptoms: Normal affect, Normal mood - Skin Skin Temperature: Warm Skin Moisture: Dry Skin Color: Normal Course - Re-evaluation Re-evalutation: 02/10/18 10:23 Patient reports resolution of pain symptoms after GI cocktail. Patient denies any abdominal pain symptoms at this time. Consulted with Dr. keenan regarding patient presentation, reviewed patient's diagnostic test results as well as EKG. Feels that EKG changes or consistent with an early repolarization pattern. 02/10/18 10:30 Patient with mild hyperkalemia. No evidence of any renal abnormalities. Patient declines staying for any IV hydration. Patient states that he would like to be discharged and increase his hydration orally. The patient has epigastric abdominal tenderness and is not suggestive of pulmonary embolus, cardiac ischemia, aortic dissection, or other serious etiology. Given the extremely low risk of these diagnoses for the test in evaluation for these possibilities does not appear to be indicated at this time. Patient has been instructed to return if the symptoms worsen or change in any way. - Vital Signs Vital signs: Temp Pulse Resp BP Pulse Ox 98.6 F 72 18 106/68 96 02/10/18 10:56 02/10/18 06:13 02/10/18 10:56 02/10/18 10:56 02/10/18 10:56 - Laboratory Result Diagrams: 02/10/18 08:20 02/10/18 08:20 Laboratory results interpreted by me: 02/10/18 02/10/18 08:20 08:20 WBC 3.3 L Hgb 13.0 L MCH 26.8 L RDW 15.5 H Seg Neutrophils % 30.6 L Eosinophils % 19.3 H Absolute Neutrophils 1.0 L Sodium 145.8 H Potassium 5.2 H Creatine Kinase 295 H 02/10/18 10:23 Labs- Entire Visit 02/10/18 02/10/18 02/10/18 08:20 08:20 08:20 WBC 3.3 L RBC 4.85 Hgb 13.0 L Hct 39.4 MCV 81 MCH 26.8 L MCHC 33.0 RDW 15.5 H Plt Count 218 Seg Neutrophils % 30.6 L Lymphocytes % 39.1 Monocytes % 9.4 Eosinophils % 19.3 H Basophils % 1.6 Absolute Neutrophils 1.0 L Absolute Lymphocytes 1.3 Absolute Monocytes 0.3 Absolute Eosinophils 0.6 Absolute Basophils 0.1 Sodium 145.8 H Potassium 5.2 H Chloride 106 Carbon Dioxide 29 Anion Gap 11 BUN 16 Creatinine 0.81 Est GFR ( Amer) > 60 Est GFR (Non-Af Amer) > 60 Glucose 86 Calcium 9.6 Total Bilirubin 0.9 Direct Bilirubin 0.3 Neonat Total Bilirubin Not Reportable Neonat Direct Bilirubin Not Reportable Neonat Indirect Bili Not Reportable AST 38 ALT 25 Alkaline Phosphatase 65 Creatine Kinase 295 H CK-MB (CK-2) 2.30 Troponin I < 0.012 Total Protein 7.2 Albumin 4.2 Lipase 75.2 - Diagnostic Test Radiology reviewed: Reports reviewed Discharge - Discharge Clinical Impression: Hyperkalemia, Epigastric pain Condition: Stable Disposition: HOME, SELF-CARE Instructions: Abdominal Pain ([facility]) Additional Instructions: Return immediately for any new or worsening symptoms Followup with your primary care provider, call tomorrow to make a followup appointment Your potassium test was a little bit elevated today. Be sure that you are increasing oral fluids to stay well-hydrated and avoid any anti-rheumatoid medications. You will need to have your electrolytes retested in 2 days, follow -up with your primary care provider to have this test rechecked. Avoid any spicy foods to avoid any stomach irritation symptoms. you can follow-up with a senior erp consultant for further evaluation, call today for an appointment. Prescriptions: Omeprazole Magnesium [Prilosec Otc] 20 mg PO DAILY #15 tablet. Sucralfate [Carafate 1 gm Tablet] 1 gm PO QID #40 tablet Referrals: [facility] [Provider Group] - Follow up as needed [facility] [Provider Group] - Follow up as needed RENITA TANNER MD [ACTIVE STAFF] - Follow up as needed
[2018-02-10] MEDS ORDERED: NORMAL SALINE 1000 ML 1,000 ML IV ONE (10:26)
[2018-02-10 11:03] VITALS: BP 106/68
== END 2018-02-10 11:10 | disposition home or self-care (01) ==
LOC: ER 05:43
DX: R10.13 Epigastric pain (principal); E87.5 Hyperkalemia; Z90.49 Acquired absence of other specified parts of digestive tract
CPT/HCPCS: 93005; 99284; 36415; 82553; 82550; 83690; 85025; 80053; 84484; 71046; 93010; J3490

== ENCOUNTER 2018-02-16 16:44 | Emergency (ER) | payer MEDICAID ==
[2018-02-16 17:03] VITALS: BP 100/68
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
== END 2018-02-16 17:45 | disposition home or self-care (01) ==
LOC: ER 16:44
DX: M25.571 Pain in right ankle and joints of right foot (principal); M79.89 Other specified soft tissue disorders; Z59.0 Homelessness; W22.8XXA Striking against or struck by other objects, initial encounter; J45.909 Unspecified asthma, uncomplicated
CPT/HCPCS: 99283

== ENCOUNTER 2018-02-17 07:36 | Emergency (ER) | payer MEDICAID ==
[2018-02-17 07:43] VITALS: BP 126/72
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
== END 2018-02-17 08:37 | disposition home or self-care (01) ==
LOC: ER 07:36
DX: K29.00 Acute gastritis without bleeding (principal); R11.10 Vomiting, unspecified; Z77.098 Contact with and (suspected) exposure to other hazardous, chiefly nonmedicinal, chemicals; Z90.49 Acquired absence of other specified parts of digestive tract
CPT/HCPCS: 99283

== ENCOUNTER 2018-02-20 02:21 | Emergency (ER) | payer MEDICAID ==
--- NOTE | 2018-02-20 07:34 | ER Document Report ---
ED General - General Chief Complaint: Sore Throat Stated Complaint: SORE THROAT Time Seen by Provider: 02/20/18 06:42 TRAVEL OUTSIDE OF THE [place] IN LAST 30 DAYS: No - HPI Patient complains to provider of: Sore throat Notes: Patient coming in for evaluation of sore throat. Patient is ongoing for the last few days. Patient has any fever chills nausea vomiting diarrhea denies any shortness of breath. Patient sleeping upon my evaluation. - Related Data Allergies/Adverse Reactions: No Known Allergies Allergy (Verified 02/17/18 07:37) Past Medical History - Social History Smoking Status: Current Every Day Smoker Chew tobacco use (# tins/day): No Frequency of alcohol use: None Drug Abuse: None Family History: Reviewed & Not Pertinent Patient has suicidal ideation: No Patient has homicidal ideation: No Pulmonary Medical History: Reports: Hx Asthma Renal/ Medical History: Denies: Hx Peritoneal Dialysis GI Medical History: Reports: Hx Irritable Bowel - constipation Musculoskeltal Medical History: Reports Hx Arthritis, Reports Hx Musculoskeletal Trauma Psychiatric Medical History: Reports: Hx Anxiety, Hx Bipolar Disorder, Hx Depression, Hx Personality Disorder, Hx Schizophrenia Past Surgical History: Reports: Hx Abdominal Surgery, Hx Appendectomy, Hx Cholecystectomy, Hx Orthopedic Surgery - finger - Immunizations Immunizations up to date: Yes Hx Diphtheria, Pertussis, Tetanus Vaccination: Yes - 2012 Hx Pneumococcal Vaccination: 08/23/00 Review of Systems - Review of Systems Constitutional: No symptoms reported EENT: Throat pain Cardiovascular: No symptoms reported Respiratory: No symptoms reported Gastrointestinal: No symptoms reported Genitourinary: No symptoms reported Male Genitourinary: No symptoms reported Musculoskeletal: No symptoms reported Skin: No symptoms reported Hematologic/Lymphatic: No symptoms reported Neurological/Psychological: No symptoms reported -: Yes All other systems reviewed and negative Physical Exam - Vital signs Vitals: Temp Pulse Resp BP Pulse Ox 97.9 F 57 L 16 122/74 100 02/20/18 02:26 02/20/18 02:26 02/20/18 02:26 02/20/18 02:26 02/20/18 02:26 Interpretation: Normal - General General appearance: Appears well, Alert - HEENT Head: Normocephalic, Atraumatic Eyes: Normal Conjunctiva: Normal Cornea: Normal Extraocular movements intact: Yes Eyelashes: Normal Pupils: PERRL Nasal: Normal Mouth/Lips: Normal Mucous membranes: Normal Pharynx: Normal Neck: Normal - Respiratory Respiratory status: No respiratory distress Chest status: Nontender Breath sounds: Normal Chest palpation: Normal - Cardiovascular Rhythm: Regular Heart sounds: Normal auscultation Murmur: No - Abdominal Inspection: Normal Distension: No distension Bowel sounds: Normal Tenderness: Nontender Organomegaly: No organomegaly - Back Back: Normal, Nontender - Extremities General upper extremity: Normal inspection, Nontender, Normal color, Normal ROM , Normal temperature General lower extremity: Normal inspection, Nontender, Normal color, Normal ROM , Normal temperature, Normal weight bearing. No: Esdras's sign - Neurological Neuro grossly intact: Yes Cognition: Normal Orientation: AAOx4 Jasmin Coma Scale Eye Opening: Spontaneous Jasmin Coma Scale Verbal: Oriented Jasmin Coma Scale Motor: Obeys Commands [place] Coma Scale Total: 15 Speech: Normal Motor strength normal: LUE, RUE, LLE, RLE Sensory: Normal - Psychological Associated symptoms: Normal affect, Normal mood - Skin Skin Temperature: Warm Skin Moisture: Dry Skin Color: Normal Course - Re-evaluation Re-evalutation: 02/20/18 15:12 No significant etiology for the patient's sore throat. Offered the patient Tylenol Motrin for pain control here however patient declined. Patient will be discharged home. - Vital Signs Vital signs: Temp Pulse Resp BP Pulse Ox 97.3 F 57 L 18 122/72 100 02/20/18 07:56 02/20/18 07:56 02/20/18 07:56 02/20/18 07:56 02/20/18 07:56 Discharge - Discharge Clinical Impression: Sore throat (viral) Condition: Good Disposition: HOME, SELF-CARE Instructions: Sore Throat ([facility]) Additional Instructions: Follow-up with your primary care physician. Take Tylenol Motrin for your sore throat. Return to ER for any other concerns. Referrals: GIANCARLO CHANCE MD [Primary Care Provider] - Follow up as needed
[2018-02-20 07:59] VITALS: BP 122/72
== END 2018-02-20 07:56 | disposition home or self-care (01) ==
LOC: ER 02:21
DX: J02.9 Acute pharyngitis, unspecified (principal); F17.200 Nicotine dependence, unspecified, uncomplicated; J45.909 Unspecified asthma, uncomplicated
CPT/HCPCS: 87070; 87880; 99283

== ENCOUNTER 2018-02-22 03:59 | Emergency (ER) | payer MEDICAID ==
[2018-02-22 04:22] VITALS: BP 140/86
--- NOTE | 2018-02-22 06:38 | ER Document Report ---
ED General - General Chief Complaint: Cough Stated Complaint: COUGH Time Seen by Provider: 02/22/18 06:32 Mode of Arrival: Ambulatory Information source: Patient Notes: 32-year-old male presents emergency department with complaints of a cough. He states it has been going on for the last day. Intermittent in nature. He states that secondhand smoke usually flares up his cough. He denies a history of asthma or COPD. Patient also denies any fever, chills, rhinorrhea, sore throat, chest pain, shortness of breath. Patient states that his cough has resolved since being in the emergency department. TRAVEL OUTSIDE OF THE [place] IN LAST 30 DAYS: No - HPI Onset: Yesterday Onset/Duration: Sudden Quality of pain: No pain Severity: None Pain Level: Denies Associated symptoms: None Exacerbated by: Denies Relieved by: Denies Similar symptoms previously: Yes Recently seen / treated by doctor: No - Related Data Allergies/Adverse Reactions: No Known Allergies Allergy (Verified 02/17/18 07:37) Past Medical History - Social History Smoking Status: Former Smoker Chew tobacco use (# tins/day): No Frequency of alcohol use: None Drug Abuse: None Family History: Reviewed & Not Pertinent Patient has suicidal ideation: No Patient has homicidal ideation: No Pulmonary Medical History: Reports: Hx Asthma Renal/ Medical History: Denies: Hx Peritoneal Dialysis GI Medical History: Reports: Hx Irritable Bowel - constipation Musculoskeltal Medical History: Reports Hx Arthritis, Reports Hx Musculoskeletal Trauma Psychiatric Medical History: Reports: Hx Anxiety, Hx Bipolar Disorder, Hx Depression, Hx Personality Disorder, Hx Schizophrenia Past Surgical History: Reports: Hx Abdominal Surgery, Hx Appendectomy, Hx Cholecystectomy, Hx Orthopedic Surgery - finger - Immunizations Immunizations up to date: Yes Hx Diphtheria, Pertussis, Tetanus Vaccination: Yes - 2012 Hx Pneumococcal Vaccination: 08/23/00 Review of Systems - Review of Systems Constitutional: No symptoms reported EENT: No symptoms reported Cardiovascular: No symptoms reported Respiratory: Cough Gastrointestinal: No symptoms reported Genitourinary: No symptoms reported Male Genitourinary: No symptoms reported Musculoskeletal: No symptoms reported Skin: No symptoms reported Hematologic/Lymphatic: No symptoms reported Neurological/Psychological: No symptoms reported -: Yes All other systems reviewed and negative Physical Exam - Vital signs Vitals: Temp Pulse Resp BP Pulse Ox 98.8 F 67 26 H 140/86 H 100 02/22/18 03:59 02/22/18 03:59 02/22/18 03:59 02/22/18 03:59 02/22/18 03:59 Interpretation: Normal - Notes Notes: PHYSICAL EXAMINATION: GENERAL: Well-appearing, well-nourished and in no acute distress. HEAD: Atraumatic, normocephalic. EYES: Pupils equal round and reactive to light, extraocular movements intact, sclera anicteric, conjunctiva are normal. ENT: Nares patent, oropharynx clear without exudates. Moist mucous membranes. NECK: Normal range of motion, supple without lymphadenopathy LUNGS: Breath sounds clear to auscultation bilaterally and equal. No wheezes rales or rhonchi. HEART: Regular rate and rhythm without murmurs ABDOMEN: Soft, nontender, nondistended abdomen. No guarding, no rebound. No masses appreciated. Musculoskeletal: Normal range of motion, no pitting or edema. No cyanosis. NEUROLOGICAL: Cranial nerves grossly intact. Normal speech, normal gait. Normal sensory, motor exams PSYCH: Normal mood, normal affect. SKIN: Warm, Dry, normal turgor, no rashes or lesions noted. Course - Vital Signs Vital signs: Temp Pulse Resp BP Pulse Ox 98.8 F 67 26 H 140/86 H 100 02/22/18 03:59 02/22/18 03:59 02/22/18 03:59 02/22/18 03:59 02/22/18 03:59 Discharge - Discharge Clinical Impression: Cough Condition: Good Disposition: HOME, SELF-CARE Instructions: Cough Suppressant & Expectorant Medications Prescriptions: Benzonatate [Tessalon Perle 100 mg Capsule] 100 mg PO Q8HP PRN #20 cap PRN Reason: Referrals: GIANCARLO CHANCE MD [Primary Care Provider] - Follow up as needed
== END 2018-02-22 06:45 | disposition home or self-care (01) ==
LOC: ER 03:59
DX: R05 Cough (principal); Z90.49 Acquired absence of other specified parts of digestive tract; Z87.891 Personal history of nicotine dependence
CPT/HCPCS: 99283

== ENCOUNTER 2018-02-26 | Emergency (ER) | payer MEDICAID ==
[2018-02-26 00:26] VITALS: BP 123/72
--- NOTE | 2018-02-26 01:29 | ER Document Report ---
ED General - General Chief Complaint: Skin Problem Stated Complaint: POSSIBLE INSECT BITE Time Seen by Provider: 02/26/18 01:10 Notes: Patient is a 32-year-old male well-known to the ED presents with complaint of a possible mosquito bite to the right thigh. He said initially it felt abnormal but now it feels normal. Stated she had a small bite janes but that has since gone away. He has no other complaints at this time. Denies any fevers. No body aches. No vomiting. Bug bite happened earlier today. TRAVEL OUTSIDE OF THE [place] IN LAST 30 DAYS: No - Related Data Allergies/Adverse Reactions: No Known Allergies Allergy (Verified 02/17/18 07:37) Past Medical History - Social History Smoking Status: Unknown if Ever Smoked Frequency of alcohol use: None Drug Abuse: None Family History: Reviewed & Not Pertinent Pulmonary Medical History: Reports: Hx Asthma Renal/ Medical History: Denies: Hx Peritoneal Dialysis GI Medical History: Reports: Hx Irritable Bowel - constipation Musculoskeltal Medical History: Reports Hx Arthritis, Reports Hx Musculoskeletal Trauma Psychiatric Medical History: Reports: Hx Anxiety, Hx Bipolar Disorder, Hx Depression, Hx Personality Disorder, Hx Schizophrenia Past Surgical History: Reports: Hx Abdominal Surgery, Hx Appendectomy, Hx Cholecystectomy, Hx Orthopedic Surgery - finger - Immunizations Immunizations up to date: Yes Hx Diphtheria, Pertussis, Tetanus Vaccination: Yes - 2012 Hx Pneumococcal Vaccination: 08/23/00 Review of Systems - Review of Systems Notes: My Normal Review Basic REVIEW OF SYSTEMS: CONSTITUTIONAL : Denies fever, chills, or sweats. Denies recent illness. EENT: Denies eye, ear, throat, or mouth pain or symptoms. Denies nasal or sinus congestion. GASTROINTESTINAL: Denies abdominal pain. Denies nausea, vomiting, or diarrhea. MUSCULOSKELETAL: Denies neck or back pain or joint pain or swelling. SKIN: Bug bite right thigh NEUROLOGICAL: Denies altered mental status or loss of consciousness. Denies headache. ALL OTHER SYSTEMS REVIEWED AND NEGATIVE. Physical Exam - Vital signs Vitals: Temp Pulse Resp BP Pulse Ox 98.6 F 64 18 123/72 100 02/26/18 00:25 02/26/18 00:25 02/26/18 00:25 02/26/18 00:02/26/18 00:25 - Notes Notes: General Appearance: Well nourished, alert, cooperative, no acute distress, no obvious discomfort. Pain. Vitals: reviewed, See vital signs table. Head: no swelling or tenderness to the head Eyes: PERRL, EOMI, Conjuctiva clear Extremities: strength 5/5 in all extremities, good pulses in all extremities, cannot visualize a bug bite on the patient's thigh. He says it has gone away. There is no swelling or tenderness to palpation over the right inner thigh where he felt he was bit. There is no redness. Skin: warm, dry, appropriate color, no rash Neuro: speech clear, oriented x 3, normal affect, responds appropriately to questions. Course - Re-evaluation Re-evalutation: 02/26/18 04:11 Should symptoms have resolved. He never had any fevers or body aches. The area of the bite is not even able to be seen at this time. I feel the patient safe to be discharged home. I encourage him return to ER if he has significant erythema or swelling to his thigh, fevers, body aches, or feels unwell. Patient agrees with plan will be discharged home. Dictation of this chart was performed using voice recognition software; therefore, there may be some unintended grammatical errors. - Vital Signs Vital signs: Temp Pulse Resp BP Pulse Ox 98.6 F 64 18 123/72 100 02/26/18 00:25 02/26/18 00:25 02/26/18 00:25 02/26/18 00:25 02/26/18 00:25 Discharge - Discharge Clinical Impression: Insect bite Qualifiers: Encounter type: initial encounter Qualified Code(s): W57.XXXA - Bitten or stung by nonvenomous insect and other nonvenomous arthropods, initial encounter Condition: Good Disposition: HOME, SELF-CARE Additional Instructions: Please return to the ER immediately if you have redness or swelling to your leg , fevers, or feel unwell. Referrals: GIANCARLO CHANCE MD [Primary Care Provider] - Follow up as needed
== END 2018-02-26 01:37 | disposition home or self-care (01) ==
LOC: ER
DX: S70.361A Insect bite (nonvenomous), right thigh, initial encounter (principal); W57.XXXA Bitten or stung by nonvenomous insect and other nonvenomous arthropods, initial encounter; Y92.9 Unspecified place or not applicable; Z90.49 Acquired absence of other specified parts of digestive tract
CPT/HCPCS: 99281

== ENCOUNTER 2018-03-08 23:49 | Emergency (ER) | payer MEDICAID ==
[2018-03-09 00:59] VITALS: BP 132/83
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
== END 2018-03-09 01:43 | disposition home or self-care (01) ==
LOC: ER 23:49
DX: Z71.1 Person with feared health complaint in whom no diagnosis is made (principal)
CPT/HCPCS: 99283

== ENCOUNTER 2018-03-18 00:14 | Emergency (ER) | payer MEDICAID ==
--- NOTE | 2018-03-18 04:24 | ER Document Report ---
HPI - HPI Pain Level: 3 Notes: Patient with chief complaint of bump to his left inner thigh as well as bump under his left ear. Patient reports he thinks these are cysts. Patient reports that they have been present for quite some time. Patient denies any other complaints currently. - REPRODUCTIVE Reproductive: DENIES: : - MUSCULOSKELETAL Musculoskeletal: REPORTS: Extremity pain - bump on left leg Past Medical History - General Information source: Patient - Social History Smoking Status: Never Smoker Chew tobacco use (# tins/day): No Frequency of alcohol use: Social Drug Abuse: None Family History: Reviewed & Not Pertinent Patient has suicidal ideation: No Patient has homicidal ideation: No Pulmonary Medical History: Reports: Hx Asthma Renal/ Medical History: Denies: Hx Peritoneal Dialysis GI Medical History: Reports: Hx Irritable Bowel - constipation Musculoskeletal Medical History: Reports Hx Arthritis, Reports Hx Musculoskeletal Trauma Psychiatric Medical History: Reports: Hx Anxiety, Hx Bipolar Disorder, Hx Depression, Hx Personality Disorder, Hx Schizophrenia Past Surgical History: Reports: Hx Abdominal Surgery, Hx Appendectomy, Hx Cholecystectomy, Hx Orthopedic Surgery - finger - Immunizations Immunizations up to date: Yes Hx Diphtheria, Pertussis, Tetanus Vaccination: Yes - 2012 Hx Pneumococcal Vaccination: 08/23/00 Vertical Provider Document - CONSTITUTIONAL Agree With Documented VS: Yes Exam Limitations: No Limitations General Appearance: No Apparent Distress - INFECTION CONTROL TRAVEL OUTSIDE OF THE [place] IN LAST 30 DAYS: No - HEENT HEENT: Atraumatic - NECK Neck: Normal Inspection - RESPIRATORY Respiratory: Breath Sounds Normal - CARDIOVASCULAR Cardiovascular: Regular Rate, Regular Rhythm - BACK Back: Normal Inspection - MUSCULOSKELETAL/EXTREMETIES Musculoskeletal/Extremeties: FROM - NEURO Level of Consciousness: Awake, Alert, Appropriate - DERM Integumentary: Warm, Dry Notes: Small lump to left groin as well as left ear. No erythema or induration noted. Course - Re-evaluation Re-evalutation: 03/18/18 04:18 Patient will be discharged and encouraged to try heat packs to the area of concern. - Vital Signs Vital signs: Temp Pulse Resp BP Pulse Ox 99.3 F 76 16 130/72 H 97 03/18/18 00:38 03/18/18 00:38 03/18/18 00:38 03/18/18 00:38 03/18/18 00:38 Discharge - Discharge Clinical Impression: Ear lump Qualifiers: Laterality: left Qualified Code(s): H93.8X2 - Other specified disorders of left ear Skin lump of leg Qualifiers: Laterality: left Qualified Code(s): R22.42 - Localized swelling, mass and lump , left lower limb Condition: Stable Disposition: HOME, SELF-CARE Additional Instructions: Please use heat packs to the areas that are of concern to you. Take tylenol as needed for pain. Referrals: GIANCARLO CHANCE MD [Primary Care Provider] - Follow up as needed
[2018-03-18 04:42] VITALS: BP 126/75
== END 2018-03-18 04:42 | disposition home or self-care (01) ==
LOC: ER 00:14
DX: R22.42 Localized swelling, mass and lump, left lower limb (principal); R22.0 Localized swelling, mass and lump, head; J45.909 Unspecified asthma, uncomplicated
CPT/HCPCS: 99283

== ENCOUNTER 2018-03-19 04:27 | Emergency (ER) | payer MEDICAID ==
[2018-03-19 04:53] VITALS: BP 120/72
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
== END 2018-03-19 07:10 | disposition home or self-care (01) ==
LOC: ER 04:27
DX: M54.9 Dorsalgia, unspecified (principal); H57.10 Ocular pain, unspecified eye; F17.210 Nicotine dependence, cigarettes, uncomplicated; J45.909 Unspecified asthma, uncomplicated; Z59.0 Homelessness
CPT/HCPCS: 99283

== ENCOUNTER 2018-03-26 16:47 | Emergency (ER) | payer MEDICAID ==
[2018-03-26 16:52] VITALS: BP 124/72
--- NOTE | 2018-03-26 17:03 | ER Document Report ---
HPI - HPI Patient complains to provider of: [place] skin right antecubital space Onset: Other - 2 days Onset/Duration: Sudden Pain Level: 2 Context: 32-year-old male complaining of pink skin in his right antecubital. He has been rubbing it but not scratching it. He wants to know how to treat this. Associated Symptoms: None Exacerbated by: Denies Relieved by: Denies Similar symptoms previously: No Recently seen / treated by doctor: No - ROS ROS below otherwise negative: Yes Systems Reviewed and Negative: Yes All other systems reviewed and negative - CONSTITUTIONAL Constitutional: DENIES: Fever, Chills - EENT EENT: DENIES: Sore Throat, Ear Pain, Eye problems - NEURO Neurology: DENIES: Headache, Weakness, Vision blurred, Dizzinesss / Vertigo - CARDIOVASCULAR Cardiovascular: DENIES: Chest pain - RESPIRATORY Respiratory: DENIES: Trouble Breathing, Coughing - GASTROINTESTINAL Gastrointestinal: DENIES: Abdominal Pain, Black / Bloody Stools - URINARY Urinary: DENIES: Dysuria, Urgency, Frequency - REPRODUCTIVE Reproductive: DENIES: : - MUSCULOSKELETAL Musculoskeletal: DENIES: Extremity pain Past Medical History - General Information source: Patient - Social History Smoking Status: Never Smoker Chew tobacco use (# tins/day): No Frequency of alcohol use: Rare Drug Abuse: None Lives with: Family Family History: Reviewed & Not Pertinent Patient has suicidal ideation: No Patient has homicidal ideation: No Pulmonary Medical History: Reports: Hx Asthma Renal/ Medical History: Denies: Hx Peritoneal Dialysis GI Medical History: Reports: Hx Irritable Bowel - constipation Musculoskeletal Medical History: Reports Hx Arthritis, Reports Hx Musculoskeletal Trauma Psychiatric Medical History: Reports: Hx Anxiety, Hx Bipolar Disorder, Hx Depression, Hx Personality Disorder, Hx Schizophrenia Past Surgical History: Reports: Hx Abdominal Surgery, Hx Appendectomy, Hx Cholecystectomy, Hx Orthopedic Surgery - finger - Immunizations Immunizations up to date: Yes Hx Diphtheria, Pertussis, Tetanus Vaccination: Yes - 2012 Hx Pneumococcal Vaccination: 08/23/00 Vertical Provider Document - CONSTITUTIONAL Agree With Documented VS: Yes Exam Limitations: No Limitations - INFECTION CONTROL TRAVEL OUTSIDE OF THE [place] IN LAST 30 DAYS: No - MUSCULOSKELETAL/EXTREMETIES Musculoskeletal/Extremeties: MAEW, FROM. negative: Tender - NEURO Level of Consciousness: Awake, Alert - DERM Integumentary: Rash - pink discoloration right antecubital , macular, no weeping , no lymphangitis Course - Vital Signs Vital signs: Temp Pulse Resp BP Pulse Ox 98.5 F 78 18 124/72 97 03/26/18 16:51 03/26/18 16:51 03/26/18 16:51 03/26/18 16:51 03/26/18 16:51 Discharge - Discharge Clinical Impression: Right antecubital rash Condition: Good Disposition: HOME, SELF-CARE Additional Instructions: hydrocortisone cream twice a day to the pink skin right antecubital see your doctor for follow up to er if worse Referrals: GIANCARLO CHANCE MD [Primary Care Provider] - Follow up as needed
[2018-03-26] MEDS ORDERED: HYDROCORTISONE 1% CREAM 28.35 GM TP ONE (17:09)
== END 2018-03-26 17:26 | disposition home or self-care (01) ==
LOC: ER 16:47
DX: R21 Rash and other nonspecific skin eruption (principal); J45.909 Unspecified asthma, uncomplicated
CPT/HCPCS: 99282; J3490

== ENCOUNTER 2018-03-27 09:47 | Emergency (ER) | payer MEDICAID ==
[2018-03-27 10:01] VITALS: BP 115/69
--- NOTE | 2018-03-27 10:30 | ER Document Report ---
ED General - General Mode of Arrival: Ambulatory Information source: Patient TRAVEL OUTSIDE OF THE [place] IN LAST 30 DAYS: No - General Chief Complaint: Abdominal Cramping Stated Complaint: ABDOMINAL PAIN Time Seen by Provider: 03/27/18 10:19 Notes: Patient is a 32 year old male, currently homeless presenting to the emergency department complaining of abdominal pain and sinus congestion. Patient states he would like to receive the proper nutrients and counseling on how to get proper groceries. Patients mentions vomiting approximately 3-4 days ago. Patient denies any fevers. (ALAYNA POOL) States he feels like he is having hunger pains. States he feels like if he had the proper nutrients he would not have pain anymore. (ESEQUIEL DOWLING) - Related Data Allergies/Adverse Reactions: No Known Allergies Allergy (Verified 03/27/18 09:48) Past Medical History - General Information source: Patient - Social History Smoking Status: Never Smoker Chew tobacco use (# tins/day): No Frequency of alcohol use: Occasional Drug Abuse: None Family History: Reviewed & Not Pertinent Patient has suicidal ideation: No Patient has homicidal ideation: No Pulmonary Medical History: Reports: Hx Asthma GI Medical History: Reports: Hx Irritable Bowel - constipation Musculoskeletal Medical History: Reports Hx Arthritis, Reports Hx Musculoskeletal Trauma Psychiatric Medical History: Reports: Hx Anxiety, Hx Bipolar Disorder, Hx Depression, Hx Personality Disorder, Hx Schizophrenia Past Surgical History: Reports: Hx Abdominal Surgery, Hx Appendectomy, Hx Cholecystectomy, Hx Orthopedic Surgery - finger - Immunizations Immunizations up to date: Yes Hx Diphtheria, Pertussis, Tetanus Vaccination: Yes - 2012 Hx Pneumococcal Vaccination: 08/23/00 Review of Systems - Review of Systems Constitutional: No symptoms reported EENT: See HPI Cardiovascular: No symptoms reported Respiratory: No symptoms reported Gastrointestinal: See HPI Genitourinary: No symptoms reported Male Genitourinary: No symptoms reported Musculoskeletal: No symptoms reported Skin: No symptoms reported Hematologic/Lymphatic: No symptoms reported Neurological/Psychological: No symptoms reported -: Yes All other systems reviewed and negative Physical Exam - Vital signs Vitals: Temp Pulse Resp BP Pulse Ox 98.0 F 60 18 115/69 100 03/27/18 10:00 03/27/18 10:00 03/27/18 10:00 03/27/18 10:03/27/18 10:00 - Notes Notes: GENERAL: Alert, interacts well. No acute distress. HEAD: Normocephalic, atraumatic. EYES: Pupils equal, round, and reactive to light. Extraocular movements intact. ENT: Oral mucosa moist, tongue midline. NECK: Full range of motion. Supple. Trachea midline. LUNGS: Clear to auscultation bilaterally, no wheezes, rales, or rhonchi. No respiratory distress. HEART: Regular rate and rhythm. No murmurs, gallops, or rubs. ABDOMEN: Soft, non-tender, states ticklish to palpation. Non-distended. Bowel sounds present in all 4 quadrants. EXTREMITIES: Moves all 4 extremities spontaneously. No edema, radial and dorsalis pedis pulses 2/4 bilaterally. No cyanosis. NEUROLOGICAL: Alert and oriented x3. Normal speech. PSYCH: Normal affect, normal mood. SKIN: Warm, dry, normal turgor. No rashes or lesions noted. (ALAYNA POOL) Course - Re-evaluation Re-evalutation: 03/27/18 10:34 Patient appears to be having hunger pains, he has no tenderness to palpation, states that it tickles when I palpate his abdomen. We did give him some food from the emergency department, counseled him on appropriate nutrition, spending his money on things like apples and peanut butter rather than buying the pomegranate juice that he thinks has multiple nutrients. Patient has been referred to our ED social welfare administrator Yaakov Mendoza and given a street sheet of resources for homeless shelters and food pantries. Patient will be discharged to home. (ESEQUIEL DOWLING) - Vital Signs Vital signs: Temp Pulse Resp BP Pulse Ox 98.0 F 60 18 115/69 100 03/27/18 10:00 03/27/18 10:00 03/27/18 10:00 03/27/18 10:03/27/18 10:00 Discharge - Discharge Clinical Impression: Homelessness Hunger pangs Qualifiers: Encounter type: initial encounter Qualified Code(s): T73.0XXA - Starvation, initial encounter Condition: Stable Disposition: HOME, SELF-CARE Additional Instructions: Today we talked about the importance of not buying supplements, juices and vitamins but instead buying nutritious whole food that is affordable such as apples and peanut butter, bananas. There are also stores in the community that have discounted food such as the [employer] bak[employer] store where they sell food that is within a few days of expiration but it is significantly discounted. This can help you to afford nutritious food, bread that you can use to make peanut butter and jelly sandwiches. Mr. khan is another similar store near [facility]. I have given you the street sheet of local resources and I have asked our ED oxygen system tester to call you as well. Please return to the emergency department should your stomach pains worsen, you develop vomiting, fevers or any new or concerning symptoms. Referrals: GIANCARLO CHANCE MD [Primary Care Provider] - Follow up as needed Scribe Attestation: 03/27/18 12:54 I personally performed the services described in the documentation, reviewed and edited the documentation which was dictated to the scribe in my presence, and it accurately records my words and actions. (ESEQUIEL DOWLING) Scribe Documentation - Scribe Written by Korey:: Korey Lal, 03/27/2018 11:28 acting as scribe for :: Akiko
== END 2018-03-27 10:37 | disposition home or self-care (01) ==
LOC: ER 09:47
DX: T73.0XXA Starvation, initial encounter (principal); X58.XXXA Exposure to other specified factors, initial encounter; Z59.0 Homelessness; R10.9 Unspecified abdominal pain; R09.81 Nasal congestion; J45.909 Unspecified asthma, uncomplicated; Z90.49 Acquired absence of other specified parts of digestive tract
CPT/HCPCS: 99283

== ENCOUNTER 2018-03-29 10:07 | Emergency (ER) | payer MEDICAID ==
--- NOTE | 2018-03-29 13:15 | ER Document Report ---
ED Skin Rash/Insect Bite/Abscs - General Chief Complaint: Insect Bite Stated Complaint: POSSIBLE INSECT BITE Time Seen by Provider: 03/29/18 12:24 Mode of Arrival: Ambulatory Information source: Patient Notes: 32-year-old male presents to ED for complaint of mosquito bite to his left arm. There is no redness no inflammation no swelling no signs or infection. He stated he wanted blood work for mosquito bite. He just been bit by mosquitoes. I told him there was no blood work to be done for a new mosquito bite. I informed him if he became sick that he would need to return to the ED for any blood work. TRAVEL OUTSIDE OF THE [place] IN LAST 30 DAYS: No - HPI Patient complains to provider of: Insect bite Onset: Just prior to arrival Onset/Duration: Gone Quality of pain: No pain Severity: None Pain Level: Denies Skin Character: Other - insect bite Quality of rash: Itchy Identify cause: Yes Exacerbated by: Denies Relieved by: Denies Similar symptoms previously: Yes Recently seen / treated by doctor: No - Related Data Allergies/Adverse Reactions: No Known Allergies Allergy (Verified 03/27/18 09:48) Past Medical History - General Information source: Patient - Social History Smoking Status: Former Smoker Cigarette use (# per day): No Chew tobacco use (# tins/day): No Smoking Education Provided: No Frequency of alcohol use: None Drug Abuse: None Lives with: Homeless Family History: Reviewed & Not Pertinent Patient has suicidal ideation: No Patient has homicidal ideation: No - Past Medical History Cardiac Medical History: Reports: None Pulmonary Medical History: Reports: Hx Asthma EENT Medical History: Reports: None Neurological Medical History: Reports: None Endocrine Medical History: Reports: None Renal/ Medical History: Reports: None Malignancy Medical History: Reports None GI Medical History: Reports: Hx Irritable Bowel - constipation Musculoskeletal Medical History: Reports Hx Arthritis, Reports Hx Musculoskeletal Trauma Skin Medical History: Reports None Psychiatric Medical History: Reports: Hx Anxiety, Hx Bipolar Disorder, Hx Depression, Hx Personality Disorder, Hx Schizophrenia Traumatic Medical History: Reports: None Infectious Medical History: Reports: None Past Surgical History: Reports: Hx Abdominal Surgery, Hx Appendectomy, Hx Cholecystectomy, Hx Orthopedic Surgery - finger - Immunizations Immunizations up to date: Yes Hx Diphtheria, Pertussis, Tetanus Vaccination: Yes - 2012 Hx Pneumococcal Vaccination: 08/23/00 Review of Systems - Review of Systems Constitutional: No symptoms reported EENT: No symptoms reported Cardiovascular: No symptoms reported Respiratory: No symptoms reported Gastrointestinal: No symptoms reported Genitourinary: No symptoms reported Male Genitourinary: No symptoms reported Musculoskeletal: No symptoms reported Skin: Other - Mosquito bites Hematologic/Lymphatic: No symptoms reported Neurological/Psychological: No symptoms reported -: Yes All other systems reviewed and negative Physical Exam - Vital signs Vitals: Temp Pulse Resp BP Pulse Ox 97.4 F 77 14 129/83 H 100 03/29/18 11:01 03/29/18 11:01 03/29/18 11:01 03/29/18 11:01 03/29/18 11:01 Interpretation: Normal - General General appearance: Appears well, Alert - HEENT Head: Normocephalic, Atraumatic Eyes: Normal Pupils: PERRL - Respiratory Respiratory status: No respiratory distress Chest status: Nontender Breath sounds: Normal Chest palpation: Normal - Cardiovascular Rhythm: Regular Heart sounds: Normal auscultation Murmur: No - Abdominal Inspection: Normal Distension: No distension Bowel sounds: Normal Tenderness: Nontender Organomegaly: No organomegaly - Back Back: Normal, Nontender - Extremities General upper extremity: Normal inspection, Nontender, Normal color, Normal ROM , Normal temperature General lower extremity: Normal inspection, Nontender, Normal color, Normal ROM , Normal temperature, Normal weight bearing. No: Esdras's sign - Neurological Neuro grossly intact: Yes Cognition: Normal Orientation: AAOx4 [place] Coma Scale Eye Opening: Spontaneous [place] Coma Scale Verbal: Oriented [place] Coma Scale Motor: Obeys Commands [place] Coma Scale Total: 15 Speech: Normal Motor strength normal: LUE, RUE, LLE, RLE Sensory: Normal - Psychological Associated symptoms: Normal affect, Normal mood - Skin Skin Temperature: Warm Skin Moisture: Dry Skin Color: Normal Character of irregularity: Other - No definite mosquito bites noted but he does state that he has itching to both arms from mosquito bites Course - Re-evaluation Re-evalutation: 03/29/18 13:17 Patient was instructed to use Benadryl or Tylenol for his mosquito bites. No actual inflamed or swollen areas noted to either arm. He was given some alcohol pads to rub on his mosquito bites. - Vital Signs Vital signs: Temp Pulse Resp BP Pulse Ox 97.4 F 77 14 129/83 H 100 03/29/18 11:01 03/29/18 11:01 03/29/18 11:01 03/29/18 11:01 03/29/18 11:01 Discharge - Discharge Clinical Impression: Insect bite of left arm Qualifiers: Encounter type: initial encounter Qualified Code(s): S40.862A - Insect bite ( nonvenomous) of left upper arm, initial encounter; W57.XXXA - Bitten or stung by nonvenomous insect and other nonvenomous arthropods, initial encounter; W57.XXXA - Bitten or stung by nonvenomous insect and other nonvenomous arthropods, initial encounter Condition: Stable Disposition: HOME, SELF-CARE Instructions: Family Physicians / Practices Additional Instructions: Insect Bites You have been bitten by an insect. These bites can cause two types of swelling: an initial swelling due to insect saliva or injected poison, and a late reaction due to your body's allergic reaction. This initial local reaction may be uncomfortable but is not dangerous. Often there's an itchy "hive" at the bite location. This is treated with antihistamines, cold compresses, and resting the affected body part. The later reaction often develops about the second day. The entire area becomes very swollen, red, itchy, and tender. This is an allergic reaction. Your body is attacking the leftover insect saliva or venom. This type of allergy is unpleasant, but not dangerous. We treat this swelling with cortisone -type medicine. Sometimes we use antibiotics if we're worried about infection. Antihistamines help with the itch. If you develop a fever, chills, a red streak, or swollen glands in the area of the bite, infection may be starting. Return at once. Acetaminophen Acetaminophen may be taken for pain relief or fever control. It's much safer than aspirin, offering a wider range of "safe" dosages. It is safe during . Some brand names are Tylenol, Panadol, Datril, Anacin 3, Tempra, and Liquiprin. Acetaminophen can be repeated every four hours. The following are maximum recommended dosages: WEIGHT Dose Drops Elixir Chewable( 80mg) (LBS.) drprs=droppers tsp=teaspoon 6 40 mg .4 ml (1/2) 6-11 80 mg .8 ml (full) 1/2 tsp 1 tab 12-16 120 mg 1 1/2 drprs 3/4 tsp 1 1/2 tabs 17-23 160 mg 2 drprs 1 tsp 2 tabs 24-30 240 mg 3 drprs 1 1/2 tsp 3 tabs 30-35 320 mg 2 tsp 4 tabs 36-41 360 mg 2 1/4 tsp 4 1 /2 tabs 42-47 400 mg 2 1/2 tsp 5 tabs 48-53 480 mg 3 tsp 6 tabs 54-59 520 mg 3 1/4 tsp 6 1 /2 tabs 60-64 560 mg 3 1/2 tsp 7 tabs 65-70 600 mg 3 3/4 tsp 7 1 /2 tabs 71-76 640 mg 4 tsp 8 tabs 77-82 720 mg 4 1/2 tsp 9 tabs 83-88 800 mg 5 tsp 10 tabs >89 pounds or adults 650 mg to 900 mg Acetaminophen can be repeated every four hours. Maximum daily dose not to exceed 4000 mg. These maximum recommended dosages are slightly higher than the dosages written on the product container, but these dosages are very safe and well below the toxic dosage for acetaminophen. FOLLOW-UP CARE: If you have been referred to a physician for follow-up care, call the physician s office for an appointment as you were instructed or within the next two days. If you experience worsening or a significant change in your symptoms, notify the physician immediately or return to the Emergency Department at any time for re-evaluation. Forms: Elevated Blood Pressure
[2018-03-29 13:18] VITALS: BP 109/72
== END 2018-03-29 13:18 | disposition home or self-care (01) ==
LOC: ER 10:07
DX: S40.862A Insect bite (nonvenomous) of left upper arm, initial encounter (principal); W57.XXXA Bitten or stung by nonvenomous insect and other nonvenomous arthropods, initial encounter; Z87.891 Personal history of nicotine dependence; J45.909 Unspecified asthma, uncomplicated
CPT/HCPCS: 99281

== ENCOUNTER 2018-04-04 12:04 | Emergency (ER) | payer MEDICAID ==
[2018-04-04 12:06] VITALS: BP 119/98
--- NOTE | 2018-04-04 13:08 | ER Document Report ---
HPI - HPI Patient complains to provider of: Concern about chemical exposure Onset: This morning Onset/Duration: Sudden Quality of pain: No pain Pain Level: Denies Context: Patient states that he was eating the [employer] exam which and that after taking a bite he noticed a smell to the egg. Patient states that it smelled like a cleaning product. Patient states that he immediately spit up and vomited the food that he had in his mouth. Patient states that he notified the staff. Staff at the restaurant took down patient's phone number. Patient states that he has since ate fast food without vomiting, throat or abdominal pain or any complications. Associated Symptoms: None Exacerbated by: Denies Relieved by: Denies Similar symptoms previously: No Recently seen / treated by doctor: No - ROS Systems Reviewed and Negative: Yes All other systems reviewed and negative - CONSTITUTIONAL Constitutional: DENIES: Fever, Chills - EENT EENT: DENIES: Sore Throat, Ear Pain, Eye problems - CARDIOVASCULAR Cardiovascular: DENIES: Chest pain - RESPIRATORY Respiratory: DENIES: Trouble Breathing, Coughing - GASTROINTESTINAL Gastrointestinal: REPORTS: Patient vomiting. DENIES: Abdominal Pain, Diarrhea, Black / Bloody Stools - MUSCULOSKELETAL Musculoskeletal: DENIES: Extremity pain - DERM Skin Color: Normal Past Medical History - General Information source: Patient - Social History Smoking Status: Never Smoker Chew tobacco use (# tins/day): No Frequency of alcohol use: Occasional Drug Abuse: None Family History: Reviewed & Not Pertinent Patient has suicidal ideation: No Patient has homicidal ideation: No Pulmonary Medical History: Reports: Hx Asthma Renal/ Medical History: Denies: Hx Peritoneal Dialysis GI Medical History: Reports: Hx Irritable Bowel - constipation Musculoskeletal Medical History: Reports Hx Arthritis, Reports Hx Musculoskeletal Trauma Psychiatric Medical History: Reports: Hx Anxiety, Hx Bipolar Disorder, Hx Depression, Hx Personality Disorder, Hx Schizophrenia Past Surgical History: Reports: Hx Abdominal Surgery, Hx Appendectomy, Hx Cholecystectomy, Hx Orthopedic Surgery - finger - Immunizations Immunizations up to date: Yes Hx Diphtheria, Pertussis, Tetanus Vaccination: Yes - 2012 Hx Pneumococcal Vaccination: 08/23/00 Vertical Provider Document - CONSTITUTIONAL Agree With Documented VS: Yes Exam Limitations: No Limitations General Appearance: WD/WN, No Apparent Distress - INFECTION CONTROL TRAVEL OUTSIDE OF THE [place] IN LAST 30 DAYS: No - HEENT HEENT: Atraumatic, Normal ENT Exam, Normocephalic - NECK Neck: Normal Inspection, Supple. negative: Lymphadenopathy-Left, Lymphadenopathy-Right - RESPIRATORY Respiratory: Breath Sounds Normal, No Respiratory Distress. negative: Rhonchi, Wheezing - CARDIOVASCULAR Cardiovascular: Regular Rate, Regular Rhythm, No Murmur - GI/ABDOMEN Gastrointestinal: Abdomen Soft, Abdomen Non-Tender, No Organomegaly, Normal Bowel Sounds - BACK Back: Normal Inspection - MUSCULOSKELETAL/EXTREMETIES Musculoskeletal/Extremeties: MAEW - NEURO Level of Consciousness: Awake, Alert, Appropriate Motor/Sensory: No Motor Deficit - DERM Integumentary: Warm, Dry, No Rash Course - Re-evaluation Re-evalutation: 04/04/18 13:07 Patient without any symptoms at this time. Patient has been eating additional food since the episode occurred this morning without any difficulty. - Vital Signs Vital signs: Temp Pulse Resp BP Pulse Ox 98.1 F 68 18 119/98 H 99 04/04/18 12:05 04/04/18 12:05 04/04/18 12:05 04/04/18 12:05 04/04/18 12:05 Discharge - Discharge Clinical Impression: concern about chemical in food, Normal exam Condition: Stable Disposition: HOME, SELF-CARE Instructions: Normal Exam and Workup ([facility]) Additional Instructions: Return immediately for any new or worsening symptoms Followup with your primary care provider, call tomorrow to make a followup appointment Referrals: GIANCARLO CHANCE MD [Primary Care Provider] - Follow up tomorrow
== END 2018-04-04 13:28 | disposition home or self-care (01) ==
LOC: ER 12:04
DX: Z77.098 Contact with and (suspected) exposure to other hazardous, chiefly nonmedicinal, chemicals (principal); R11.10 Vomiting, unspecified; J45.909 Unspecified asthma, uncomplicated
CPT/HCPCS: 99283

== ENCOUNTER 2018-04-07 01:29 | Emergency (ER) | payer MEDICAID ==
[2018-04-07 02:10] VITALS: BP 120/73
[2018-04-07] MEDS ORDERED: METOCLOPRAMIDE HCL ORAL SOLN 10 MG/10 ML UDCUP PO ONE (02:37)
[2018-04-07] MEDS ORDERED: MAG HYDROX/AL HYDROX/SIMETH SUSP 30 ML UDCUP PO ONE (02:37)
[2018-04-07] MEDS ORDERED: LIDOCAINE 2% VISCOUS SOLN 20 ML UDCUP PO ONE (02:37)
--- NOTE | 2018-04-07 02:44 | ER Document Report ---
ED General - General Chief Complaint: Epigastric Pain Stated Complaint: POSSIBLE FEVER Time Seen by Provider: 04/07/18 02:24 Notes: Patient is a 32-year-old male that comes to the emergency department for chief complaint of possible heartburn and possible fever. He states that his forehead felt hot earlier and he thought he might of had a fever, he denies any chills, he states this symptom resolved. Temperature was checked in triage and was normal. Patient states that he no longer has the heartburn sensation either , he states he ate earlier today without any trouble. He alludes to an episode earlier this week where he was evaluated here after he made himself vomit after suspecting bad fast food. He denies other vomiting, fever, or any particular locations of pain. He denies cough, headache, sore throat, shortness of breath. Patient is homeless, has a history of schizophrenia, states he is not taking any current medications. He denies hallucinations/hearing voices, denies SI or HI. TRAVEL OUTSIDE OF THE [place] IN LAST 30 DAYS: No - Related Data Allergies/Adverse Reactions: No Known Allergies Allergy (Verified 03/27/18 09:48) Past Medical History - General Information source: Patient - Social History Smoking Status: Never Smoker Frequency of alcohol use: None Drug Abuse: None Lives with: Alone Family History: Reviewed & Not Pertinent Patient has suicidal ideation: No Patient has homicidal ideation: No Pulmonary Medical History: Reports: Hx Asthma Renal/ Medical History: Denies: Hx Peritoneal Dialysis GI Medical History: Reports: Hx Irritable Bowel - constipation Musculoskeletal Medical History: Reports Hx Arthritis, Reports Hx Musculoskeletal Trauma Psychiatric Medical History: Reports: Hx Anxiety, Hx Bipolar Disorder, Hx Depression, Hx Personality Disorder, Hx Schizophrenia Past Surgical History: Reports: Hx Abdominal Surgery, Hx Appendectomy, Hx Cholecystectomy, Hx Orthopedic Surgery - finger - Immunizations Immunizations up to date: Yes Hx Diphtheria, Pertussis, Tetanus Vaccination: Yes - 2012 Hx Pneumococcal Vaccination: 08/23/00 Review of Systems - Review of Systems Constitutional: See HPI EENT: No symptoms reported Cardiovascular: No symptoms reported Respiratory: No symptoms reported Gastrointestinal: See HPI Genitourinary: No symptoms reported Male Genitourinary: No symptoms reported Musculoskeletal: No symptoms reported Skin: No symptoms reported Hematologic/Lymphatic: No symptoms reported Neurological/Psychological: No symptoms reported Physical Exam - Vital signs Vitals: Temp Pulse Resp BP Pulse Ox 98.4 F 75 18 120/73 99 04/07/18 02:09 04/07/18 02:09 04/07/18 02:09 04/07/18 02:04/07/18 02:09 - Notes Notes: GENERAL: Alert, interacts well. No acute distress. HEAD: Normocephalic, atraumatic. EYES: Pupils equal, round, and reactive to light. Extraocular movements intact. ENT: Oral mucosa moist, tongue midline. NECK: Full range of motion. Supple. Trachea midline. LUNGS: Clear to auscultation bilaterally, no wheezes, rales, or rhonchi. No respiratory distress. HEART: Regular rate and rhythm. No murmur ABDOMEN: Soft, non-tender. Non-distended. Bowel sounds present in all 4 quadrants. EXTREMITIES: Moves all 4 extremities spontaneously. No edema, normal radial and dorsalis pedis pulses bilaterally. No cyanosis. BACK: no cervical, thoracic, lumbar midline tenderness. No saddle anesthesia, normal distal neurovascular exam. NEUROLOGICAL: Alert and oriented x3. Normal speech. [cranial nerves II through XII grossly intact]. PSYCH: Normal affect, normal mood. Cooperative. Makes good eye contact. Does not appear to be responding to any internal stimuli. SKIN: Warm, dry, normal turgor. No rashes or lesions noted. Course - Re-evaluation Re-evalutation: Patient denying any current symptoms. Well-appearing. Soft abdomen. Remaining physical exam is unremarkable. Vital signs unremarkable. Discussed with patient. Patient states he is homeless, he is trying to get into different places to live but he keeps getting wait listed, he states he has enough food because he does have food stamps and money coming in every month. He states that he is hoping to get in a senior living or something similar to this. He asks if I have any assistance or recommendations for this. Discussed options, after discussion decision was made to place patient case coordinator consult to see if we can assist him in any way through this. Patient is very pleased with this. He states he can be contacted at [phone]. Patient states he is ready to leave at this time. Discussed return precautions. Patient states understanding and agreement. - Vital Signs Vital signs: Temp Pulse Resp BP Pulse Ox 98.4 F 75 18 120/73 99 04/07/18 02:09 04/07/18 02:09 04/07/18 02:09 04/07/18 02:09 04/07/18 02:09 Discharge - Discharge Clinical Impression: Homelessness GERD (gastroesophageal reflux disease) Qualifiers: Esophagitis presence: esophagitis presence not specified Qualified Code(s): K21.9 - Gastro-esophageal reflux disease without esophagitis Condition: Stable Disposition: HOME, SELF-CARE Additional Instructions: A patient case coordinator consult has been placed. They will be contacting you for additional assistance. Return to the emergency department for any concerning symptoms including abdominal pain, vomiting, fever, passing out, or any other concerning symptoms. Referrals: GIANCARLO CHANCE MD [Primary Care Provider] - Follow up as needed
== END 2018-04-07 04:08 | disposition home or self-care (01) ==
LOC: ER 01:29
DX: K21.9 Gastro-esophageal reflux disease without esophagitis (principal); R10.13 Epigastric pain; Z59.0 Homelessness; Z90.49 Acquired absence of other specified parts of digestive tract
CPT/HCPCS: 99283; J3490 ×3

== ENCOUNTER 2018-04-10 14:45 | Emergency (ER) | payer MEDICAID ==
[2018-04-10 14:50] VITALS: BP 130/73
--- NOTE | 2018-04-10 16:48 | ER Document Report ---
HPI - HPI Pain Level: 2 Notes: Patient is a 32-year-old male who presents with chief complaint of blood on the toilet paper when he wipes. Patient also reports there was some blood in his stool. Patient reports he has a history of bleeding hemorrhoids and is wondering if this is the same thing. Patient denies any abdominal pain. Patient denies any constipation, reports his BMs are normal and that he had last had one this morning. - GASTROINTESTINAL Gastrointestinal: REPORTS: Black / Bloody Stools - bloody stools - REPRODUCTIVE Reproductive: DENIES: : Past Medical History - General Information source: Patient - Social History Smoking Status: Never Smoker Frequency of alcohol use: None Drug Abuse: None Family History: Reviewed & Not Pertinent Patient has suicidal ideation: No Patient has homicidal ideation: No Pulmonary Medical History: Reports: Hx Asthma Renal/ Medical History: Denies: Hx Peritoneal Dialysis GI Medical History: Reports: Hx Irritable Bowel - constipation Musculoskeletal Medical History: Reports Hx Arthritis, Reports Hx Musculoskeletal Trauma Psychiatric Medical History: Reports: Hx Anxiety, Hx Bipolar Disorder, Hx Depression, Hx Personality Disorder, Hx Schizophrenia Past Surgical History: Reports: Hx Abdominal Surgery, Hx Appendectomy, Hx Cholecystectomy, Hx Orthopedic Surgery - finger - Immunizations Immunizations up to date: Yes Hx Diphtheria, Pertussis, Tetanus Vaccination: Yes - 2012 Hx Pneumococcal Vaccination: 08/23/00 Vertical Provider Document - CONSTITUTIONAL Notes: PHYSICAL EXAMINATION: GENERAL: Well-appearing, well-nourished and in no acute distress. HEAD: Atraumatic, normocephalic. EYES: Pupils equal round and reactive to light, extraocular movements intact, sclera anicteric, conjunctiva are normal. ENT: Nares patent, oropharynx clear without exudates. Moist mucous membranes. NECK: Normal range of motion, supple without lymphadenopathy LUNGS: Breath sounds clear to auscultation bilaterally and equal. No wheezes rales or rhonchi. HEART: Regular rate and rhythm without murmurs ABDOMEN: Soft, nontender, nondistended abdomen. No guarding, no rebound. No masses appreciated. Musculoskeletal: Normal range of motion, no pitting or edema. No cyanosis. NEUROLOGICAL: Cranial nerves grossly intact. Normal speech, normal gait. Normal sensory, motor exams PSYCH: Normal mood, normal affect. SKIN: Warm, Dry, normal turgor, no rashes or lesions noted. - INFECTION CONTROL TRAVEL OUTSIDE OF THE [place] IN LAST 30 DAYS: No Course - Re-evaluation Re-evalutation: External rectal exam reveals external hemorrhoids. No internal hemorrhoids on palpation. Hemoccult sent down and was positive for blood. Likely this is due to the hemorrhoids patient will be discharged home in stable condition, given ED return precautions to include worsening of the bleeding. Patient verbalizes understanding. - Vital Signs Vital signs: Temp Pulse Resp BP Pulse Ox 97.9 F 87 18 130/73 H 98 04/10/18 14:50 04/10/18 14:50 04/10/18 14:50 04/10/18 14:50 04/10/18 14:50 Discharge - Discharge Clinical Impression: Bleeding hemorrhoids Condition: Stable Disposition: HOME, SELF-CARE Additional Instructions: Hemorrhoids You have hemorrhoids. These are formed by enlargement of veins around the anus. Hemorrhoids often cause itching and bleeding with bowel movements. When a hemorrhoid becomes clotted, severe pain and swelling result. Soothing creams and suppositories are often prescribed. Warm sitz-baths may also decrease pain, swelling, and itching. Eat a high-fiber diet. Stool softeners such as Metamucil will help. Keep the area very clean. Medicated cleansing pads (such as Tucks) are useful after bowel movements. A hose-mounted shower unit (like a shower massager at low water pressure) can be used to clean around tender hemorrhoid tags. You should call the doctor or return if you develop fever, increasing pain , or an enlarging mass around the anus, or if you simply fail to improve with treatment. Referrals: GIANCARLO CAHNCE MD [Primary Care Provider] - Follow up as needed
== END 2018-04-10 16:52 | disposition home or self-care (01) ==
LOC: ER 14:45
DX: K64.4 Residual hemorrhoidal skin tags (principal); Z90.49 Acquired absence of other specified parts of digestive tract
CPT/HCPCS: 82272; 99283

== ENCOUNTER 2018-04-13 18:05 | Emergency (ER) | payer MEDICAID ==
[2018-04-13] MEDS ORDERED: ONDANSETRON HCL INJ/PF 4 MG/2 ML SDV IV ONE (19:35)
[2018-04-13] MEDS ORDERED: NORMAL SALINE 1000 ML 1,000 ML IV ONE ×2 (19:36→21:19)
--- NOTE | 2018-04-13 19:38 | ER Document Report ---
ED Medical Screen (RME) - General Chief Complaint: Nausea Stated Complaint: NAUSEA Time Seen by Provider: 04/13/18 19:32 Mode of Arrival: Ambulatory Information source: Patient Notes: Patient is a 32-year-old male who presents with chief complaint of nausea and vomiting that began this morning. Patient reports he has been vomiting all day long. Patient denies any diarrhea. Patient reports upper abdominal cramping. Patient denies any fever or chills. Patient actively vomiting in triage Exam: Patient alert, oriented and very anxious. Tenderness to palpation over epigastric area. I have greeted and performed a rapid initial assessment of this patient. A comprehensive ED assessment and evaluation of the patient, analysis of test results and completion of the medical decision making process will be conducted by additional ED providers. Dictation of this chart was performed using voice recognition software; therefore, there may be some unintended grammatical errors. TRAVEL OUTSIDE OF THE [place] IN LAST 30 DAYS: No - Related Data Allergies/Adverse Reactions: No Known Allergies Allergy (Verified 04/13/18 18:05) Past Medical History - Social History Family history: Reviewed & Not Pertinent Pulmonary Medical History: Reports: Hx Asthma Renal/ Medical History: Denies: Hx Peritoneal Dialysis GI Medical History: Reports: Hx Irritable Bowel - constipation Musculoskeltal Medical History: Reports Hx Arthritis, Reports Hx Musculoskeletal Trauma Psychiatric Medical History: Reports: Hx Anxiety, Hx Bipolar Disorder, Hx Depression, Hx Personality Disorder, Hx Schizophrenia Past Surgical History: Reports: Hx Abdominal Surgery, Hx Appendectomy, Hx Cholecystectomy, Hx Orthopedic Surgery - finger - Immunizations Immunizations up to date: Yes Hx Diphtheria, Pertussis, Tetanus Vaccination: Yes - 2012 Physical Exam - Vital signs Vitals: Temp Pulse BP Pulse Ox 97.9 F 69 114/98 H 97 04/13/18 18:29 04/13/18 18:29 04/13/18 18:29 04/13/18 18:29 Course - Vital Signs Vital signs: Temp Pulse Resp BP Pulse Ox 97.9 F 69 114/98 H 97 04/13/18 18:29 04/13/18 18:29 04/13/18 18:29 04/13/18 18:29 Doctor's Discharge - Discharge Referrals: GIANCARLO CHANCE MD [Primary Care Provider] - Follow up as needed
[2018-04-13 20:34] LABS: ABSOLUTE BASOPHILS # (AUTO) 0.1 10^3/uL (0.0-0.2); ABSOLUTE EOSINOPHILS # (AUTO) 0.1 10^3/uL (0.0-0.6); ABSOLUTE LYMPHOCYTES (AUTO) 0.6 10^3/uL (0.5-4.7); ABSOLUTE MONOCYTES (AUTO) 0.1 10^3/uL (0.1-1.4); ABSOLUTE NEUT (AUTO) 3.4 10^3/uL (1.7-8.2); BASOPHILS % (AUTO) 1.3 % (0-2); EOSINOPHILS % (AUTO) 1.4 % (0-6); HEMATOCRIT 40.7 % (37.9-51.0); HEMOGLOBIN 13.5 g/dL (13.5-17.0); LYMPHOCYTES % (AUTO) 15.2 % (13-45); MEAN CORPUSCULAR HEMOGLOBIN 26.8 pg (27.0-33.4); MEAN CORPUSCULAR HGB CONC 33.2 g/dL (32.0-36.0); MEAN CORPUSCULAR VOLUME 81 fl (80-97); MONOCYTES % (AUTO) 3.2 % (3-13); PLATELET COUNT 202 10^3/uL (150-450); RED BLOOD COUNT 5.04 10^6/uL (4.35-5.55); RED CELL DISTRIBUTION WIDTH 14.5 % (11.5-14.0); SEGMENTED NEUTROPHILS % (AUTO) 78.9 % (42-78); TOTAL CELLS COUNTED % (AUTO) 100 %; WHITE BLOOD COUNT 4.3 10^3/uL (4.0-10.5)
--- NOTE | 2018-04-13 21:03 | ER Document Report ---
ED General - General Chief Complaint: Nausea Stated Complaint: NAUSEA Time Seen by Provider: 04/13/18 19:32 Mode of Arrival: Ambulatory Information source: Patient Cannot obtain history due to: Mentally challenged TRAVEL OUTSIDE OF THE [place] IN LAST 30 DAYS: No - HPI Patient complains to provider of: nausea, vomiting Onset: This afternoon Onset/Duration: Sudden Quality of pain: No pain Severity: Mild Associated symptoms: Nausea, Vomiting Exacerbated by: Denies Relieved by: Denies Similar symptoms previously: Yes Recently seen / treated by doctor: Yes - 04/10/18 Notes: 32-year-old male with IBS, asthma, schizophrenia, bipolar disorder, anxiety, and depression presents to the emergency department with nausea and 2 episodes of vomiting beginning today around 2:30 PM. States symptoms began suddenly and are unrelated to eating. Reports eating some "old pineapple" today and is unsure if this may have caused the symptoms. Reports poor po intake after onset of symptoms. Associated L-sided headache. Denies any fever, chills, sweats, chest pain, shortness of breath, abdominal pain, hematemasis, melena, hematochezia, diarrhea. - Related Data Allergies/Adverse Reactions: No Known Allergies Allergy (Verified 04/13/18 18:05) Past Medical History - General Information source: Patient - Social History Smoking Status: Never Smoker Chew tobacco use (# tins/day): No Frequency of alcohol use: Rare Drug Abuse: None Family History: Reviewed & Not Pertinent Patient has suicidal ideation: No Patient has homicidal ideation: No Pulmonary Medical History: Reports: Hx Asthma Renal/ Medical History: Denies: Hx Peritoneal Dialysis GI Medical History: Reports: Hx Irritable Bowel - constipation Musculoskeletal Medical History: Reports Hx Arthritis, Reports Hx Musculoskeletal Trauma Psychiatric Medical History: Reports: Hx Anxiety, Hx Bipolar Disorder, Hx Depression, Hx Personality Disorder, Hx Schizophrenia Past Surgical History: Reports: Hx Abdominal Surgery, Hx Appendectomy, Hx Cholecystectomy, Hx Orthopedic Surgery - finger - Immunizations Immunizations up to date: Yes Hx Diphtheria, Pertussis, Tetanus Vaccination: Yes - 2012 Hx Pneumococcal Vaccination: 08/23/00 Review of Systems - Review of Systems Notes: REVIEW OF SYSTEMS: CONSTITUTIONAL : Denies fever, chills, or sweats. Denies recent illness. Denies weight loss, recent hospitalizations. EENT: Denies visual changes, eye pain. Denies nasal or sinus congestion or discharge. Denies sore throat, oral lesions, difficulty swallowing. CARDIOVASCULAR: Denies chest pain. Denies palpitations. Denies lower extremity edema. RESPIRATORY: Denies cough, cold, or chest congestion. Denies shortness of breath, wheezing. GASTROINTESTINAL: (+) nausea, vomiting. Denies abdominal pain or distention. Denies diarrhea. Denies blood in vomitus, stools, or per rectum. Denies black , tarry stools. Denies constipation. GENITOURINARY: Denies difficulty urinating, painful urination, frequency, blood in urine, or vaginal discharge. MUSCULOSKELETAL: Denies back or neck pain or stiffness. Denies joint pain or swelling. SKIN: Denies rash, lesions or sores. HEMATOLOGIC : Denies easy bruising or bleeding. LYMPHATIC: Denies swollen glands. NEUROLOGICAL: Denies confusion or altered mental status. Denies passing out or loss of consciousness. Denies dizziness or lightheadedness. Denies headache. Denies weakness or paralysis. Denies problems difficulty with ambulation, slurred speech. Denies sensory loss, numbness, or tingling. Denies seizures. PSYCHIATRIC: Denies anxiety or stress. Denies depression, suicidal ideation, or homicidal ideation. Denies visual or auditory hallucinations. Physical Exam - Vital signs Vitals: Temp Pulse BP Pulse Ox 97.9 F 69 114/98 H 97 04/13/18 18:29 04/13/18 18:29 04/13/18 18:29 04/13/18 18:29 - Notes Notes: PHYSICAL EXAMINATION: GENERAL: well-appearing, well-nourished adult male in no acute distress. HEAD: Atraumatic, normocephalic. EYES: Pupils equal round and reactive to light, extraocular movements intact, sclera anicteric, conjunctiva are normal. ENT: Nares patent, oropharynx clear without exudates. Dry mucous membranes. NECK: Normal range of motion, supple without lymphadenopathy LUNGS: Breath sounds clear to auscultation bilaterally and equal. No wheezes rales or rhonchi. HEART: Regular rate and rhythm without murmurs ABDOMEN: No distention, deformity, bruising, or lesion noted on inspection. Abdomen nontender to palpation, no guarding or rebound. No masses appreciated. Musculoskeletal: Normal range of motion, no pitting or edema. No cyanosis. NEUROLOGICAL: Cranial nerves grossly intact. Normal speech, normal gait. Normal sensory, motor exams PSYCH: Normal mood, normal affect. SKIN: Warm, Dry, normal turgor, no rashes or lesions noted. Course - Re-evaluation Re-evalutation: 04/14/18 20:54 32-year-old male well-known to the emergency department presents with complaint of nausea and vomiting. He is actively vomiting upon arrival. Vital signs stable upon arrival. Patient was given 2 L of IV fluids, Zofran and on reevaluation reports improvement. Patient was discharged home in stable condition. - Vital Signs Vital signs: Temp Pulse Resp BP Pulse Ox 97.5 F 63 16 116/51 L 99 04/13/18 23:41 04/13/18 23:41 04/13/18 23:41 04/13/18 23:41 04/13/18 23:41 - Laboratory Result Diagrams: 04/13/18 20:20 04/13/18 20:20 Laboratory results interpreted by me: 04/13/18 04/13/18 04/13/18 20:20 20:20 22:24 MCH 26.8 L RDW 14.5 H Seg Neutrophils % 78.9 H Sodium 146.7 H Chloride 109 H Glucose 115 H ALT 18 L Urine Ketones 20 H Discharge - Discharge Clinical Impression: Homelessness Nausea & vomiting Qualifiers: Vomiting type: unspecified Vomiting Intractability: non-intractable Qualified Code(s): R11.2 - Nausea with vomiting, unspecified Bipolar disorder Qualifiers: Active/Remission status: currently active Current bipolar episode type: mixed Current episode severity: unspecified Qualified Code(s): F31.60 - Bipolar disorder, current episode mixed, unspecified Condition: Good Disposition: HOME, SELF-CARE Instructions: Vomiting (OM) Referrals: GIANCARLO CHANCE MD [Primary Care Provider] - Follow up as needed
[2018-04-13 21:43] LABS: ALANINE AMINOTRANSFERASE 18 U/L (21-72); ALBUMIN 4.5 g/dL (3.5-5.0); ALKALINE PHOSPHATASE 74 U/L (38-126); ANION GAP 15 (5-19); ASPARTATE AMINO TRANSFERASE 30 U/L (17-59); BILIRUBIN,DIRECT 0.2 mg/dL (0.0-0.4); BILIRUBIN,TOTAL 1.2 mg/dL (0.2-1.3); BLOOD UREA NITROGEN 16 mg/dL (7-20); CALCIUM 10.1 mg/dL (8.4-10.2); CARBON DIOXIDE 23 mmol/L (22-30); CHLORIDE 109 mmol/L (98-107); GLUCOSE 115 mg/dL (75-110); LIPASE 42.3 U/L (23-300); POTASSIUM 4.9 mmol/L (3.6-5.0); SODIUM 146.7 mmol/L (137-145); TOTAL PROTEIN 7.6 g/dL (6.3-8.2)
[2018-04-13 22:54] LABS: APPEARANCE,URINE CLEAR; BILIRUBIN,URINE NEGATIVE (NEGATIVE); COLOR,URINE YELLOW; GLUCOSE, URINE NEGATIVE (NEGATIVE); KETONES,URINE 20 mg/dL (NEGATIVE); LEUKOCYTE ESTERASE,URINE NEGATIVE (NEGATIVE); NITRITE,URINE NEGATIVE (NEGATIVE); PROTEIN,URINE NEGATIVE (NEGATIVE); URINE SPECIFIC GRAVITY 1.024; UROBILINOGEN,URINE NEGATIVE mg/dL (<2.0)
[2018-04-13] MEDS ORDERED: ONDANSETRON ODT 4 MG TAB (6 TAB/ER DISP) PO PRN (23:02)
[2018-04-13 23:43] VITALS: BP 116/51
== END 2018-04-14 00:07 | disposition home or self-care (01) ==
LOC: ER 18:05
DX: R11.2 Nausea with vomiting, unspecified (principal); F31.60 Bipolar disorder, current episode mixed, unspecified; Z59.0 Homelessness; Z90.49 Acquired absence of other specified parts of digestive tract
CPT/HCPCS: 99283; 96361; 96374; 36415; 83690; 85025; 80053; 81001; J2405; J7030

== ENCOUNTER 2018-04-22 05:59 | Emergency (ER) | payer MEDICAID ==
--- NOTE | 2018-04-22 07:23 | ER Document Report ---
HPI - HPI Pain Level: Denies Notes: Patient is a 32-year-old male who is well-known to the presents to the ED complaining of noticing a small bump to his lateral right forearm 1-2 days that does not bother him at all. Patient states that he may have been bitten by a bug, but does not have any associated pain or itching. He does not have any streaks or discharge from the area. He denies any drug allergies. Denies IV drug use. No other concerns or complaints. Denies any headache, fever, URI , sore throat, chest pain, palpitations, syncope, cough, shortness of breath, wheeze, dyspnea, abdominal pain, nausea/vomiting/diarrhea, urinary retention, dysuria, hematuria. - ROS Systems Reviewed and Negative: Yes All other systems reviewed and negative - REPRODUCTIVE Reproductive: DENIES: : Past Medical History - Social History Smoking Status: Never Smoker Chew tobacco use (# tins/day): No Frequency of alcohol use: Occasional Drug Abuse: None Family History: Reviewed & Not Pertinent Patient has suicidal ideation: No Patient has homicidal ideation: No Pulmonary Medical History: Reports: Hx Asthma Renal/ Medical History: Denies: Hx Peritoneal Dialysis GI Medical History: Reports: Hx Irritable Bowel - constipation Musculoskeletal Medical History: Reports Hx Arthritis, Reports Hx Musculoskeletal Trauma Psychiatric Medical History: Reports: Hx Anxiety, Hx Bipolar Disorder, Hx Depression, Hx Personality Disorder, Hx Schizophrenia Past Surgical History: Reports: Hx Abdominal Surgery, Hx Appendectomy, Hx Cholecystectomy, Hx Orthopedic Surgery - finger - Immunizations Immunizations up to date: Yes Hx Diphtheria, Pertussis, Tetanus Vaccination: Yes - 2012 Hx Pneumococcal Vaccination: 08/23/00 Vertical Provider Document - CONSTITUTIONAL Agree With Documented VS: Yes Notes: PHYSICAL EXAMINATION: GENERAL: Well-appearing, well-nourished and in no acute distress. LUNGS: Breath sounds clear to auscultation bilaterally and equal. No wheezes rales or rhonchi. HEART: Regular rate and rhythm without murmurs, rubs, gallops. Musculoskeletal: FROM to passive/active. Strength 5+/5. Extremities: No cyanosis, clubbing, or edema b/l. Peripheral pulses 2+. Capillary refill less than 3 seconds. NEUROLOGICAL: Normal speech, normal gait. PSYCH: Normal mood, normal affect. SKIN: small <0.5cm maculopapular bump to the rt lateral forearm w/o erythema, streaks, discharge, induration, fluctuance, or tenderness. - INFECTION CONTROL TRAVEL OUTSIDE OF THE [place] IN LAST 30 DAYS: No Course - Re-evaluation Re-evalutation: 04/22/18 07:20 Patient is an afebrile, well-hydrated 32-year-old male who presents to the ED with a macular papular area on his skin which I suspect to be a benign insect bite. Vitals are acceptable without significant tachycardia, tachypnea, or hypoxia. PE is otherwise unremarkable. No incision and drainage is warranted at this time as there is no tenderness, induration, fluctuance, purulence, discharge. No labs or imaging warranted at this time based on H&P. Conservative measures reviewed. Recheck with your PCM in 2-3 days. Return to the ED with any worsening/concerning symptoms otherwise as reviewed in discharge. Patient is in agreement. - Vital Signs Vital signs: Temp Pulse Resp BP Pulse Ox 97.8 F 53 L 18 115/68 100 04/22/18 06:06 04/22/18 06:06 04/22/18 06:06 04/22/18 06:06 04/22/18 06:06 Discharge - Discharge Clinical Impression: Insect bite Qualifiers: Encounter type: initial encounter Qualified Code(s): W57.XXXA - Bitten or stung by nonvenomous insect and other nonvenomous arthropods, initial encounter Condition: Stable Disposition: HOME, SELF-CARE Additional Instructions: Keep the skin clean Wash with soap and water Tylenol/ibuprofen if needed Triple antibiotic ointment daily for any break in the skin You may try Benadryl or cortisone cream Take medication as directed Monitor for any worsening symptoms Recheck with your PCM in 2-3 days Return to the ED with any worsening symptoms and/or development of fever, headache, chest pain, palpitations, syncope, shortness of breath, trouble breathing, abdominal pain, n/v/d, abscess, purulent discharge, red streaks, worsening swelling, or other worsening symptoms that are concerning to you. Referrals: GIANCARLO CHANCE MD [Primary Care Provider] - 04/25/18
[2018-04-22 08:15] VITALS: BP 136/88
== END 2018-04-22 08:15 | disposition home or self-care (01) ==
LOC: ER 05:59
DX: S50.861A Insect bite (nonvenomous) of right forearm, initial encounter (principal); W57.XXXA Bitten or stung by nonvenomous insect and other nonvenomous arthropods, initial encounter; J45.909 Unspecified asthma, uncomplicated
CPT/HCPCS: 99281

== ENCOUNTER 2018-06-12 12:14 | Emergency (ER) | payer MEDICAID ==
--- NOTE | 2018-06-12 13:25 | ER Document Report ---
HPI - HPI Pain Level: Denies Notes: Patient is a 32-year-old male who is well-known to our facility presenting with chief complaint for STD check. Patient reports that he has been having relations with a male partner who is a bisexual and that he thinks the male partner may have been exposed to HIV, chlamydia and gonorrhea. Patient currently denies any symptoms whatsoever. He states he would just like to get checked out. Patient has high anxiety about his health concerns. Patient denies any fever, dysuria, or penile discharge. - CONSTITUTIONAL Constitutional: DENIES: Fever, Chills - REPRODUCTIVE Reproductive: DENIES: : Past Medical History - Social History Smoking Status: Smoker,Current Status Unk Frequency of alcohol use: Rare Drug Abuse: None Family History: Reviewed & Not Pertinent Patient has suicidal ideation: No Patient has homicidal ideation: No Pulmonary Medical History: Reports: Hx Asthma Renal/ Medical History: Denies: Hx Peritoneal Dialysis GI Medical History: Reports: Hx Irritable Bowel - constipation Musculoskeletal Medical History: Reports Hx Arthritis, Reports Hx Musculoskeletal Trauma Psychiatric Medical History: Reports: Hx Anxiety, Hx Bipolar Disorder, Hx Depression, Hx Personality Disorder, Hx Schizophrenia Past Surgical History: Reports: Hx Abdominal Surgery, Hx Appendectomy, Hx Cholecystectomy, Hx Orthopedic Surgery - finger - Immunizations Immunizations up to date: Yes Hx Diphtheria, Pertussis, Tetanus Vaccination: Yes - 2012 Hx Pneumococcal Vaccination: 08/23/00 Vertical Provider Document - CONSTITUTIONAL Notes: PHYSICAL EXAMINATION: GENERAL: Well-appearing, well-nourished and in no acute distress. HEAD: Atraumatic, normocephalic. EYES: Pupils equal round extraocular movements intact, conjunctiva are normal. ENT: Nares patent NECK: Normal range of motion LUNGS: No respiratory distress Musculoskeletal: Normal range of motion NEUROLOGICAL: Normal speech, normal gait. PSYCH: Normal mood, normal affect. SKIN: Warm, Dry, normal turgor, no rashes or lesions noted. - INFECTION CONTROL TRAVEL OUTSIDE OF THE [place] IN LAST 30 DAYS: No Course - Re-evaluation Re-evalutation: Serum HIV test was negative. Chlamydia and gonorrhea testing still pending. Patient will be discharged home in stable condition at this time, we will call him if there is any abnormal findings on his test. - Vital Signs Vital signs: Temp Pulse Resp BP Pulse Ox 97.7 F 71 16 122/67 100 06/12/18 12:19 06/12/18 12:19 06/12/18 12:19 06/12/18 12:19 06/12/18 12:19 Discharge - Discharge Clinical Impression: Normal exam, Encounter for screening for HIV Condition: Stable Disposition: HOME, SELF-CARE Additional Instructions: Your examination today was normal. Your HIV test was negative. The chlamydia and gonorrhea test are still pending, they take several hours to come back. If there is any abnormality we will call you on the phone. Referrals: GIANCARLO CHANCE MD [Primary Care Provider] - Follow up as needed
[2018-06-12 15:02] VITALS: BP 112/66
[2018-06-12 15:12] LABS: CHLAM PCR NOT DETECTED (NOT DETECT); GON PCR NOT DETECTED (NOT DETECT)
== END 2018-06-12 14:55 | disposition home or self-care (01) ==
LOC: ER 12:14
DX: Z20.2 Contact with and (suspected) exposure to infections with a predominantly sexual mode of transmission (principal); F17.200 Nicotine dependence, unspecified, uncomplicated; J45.909 Unspecified asthma, uncomplicated
CPT/HCPCS: 36415; 86701; 87491; 87591; 99283

== ENCOUNTER 2018-06-18 03:53 | Emergency (ER) | payer MEDICAID ==
[2018-06-18 04:00] VITALS: BP 121/80
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
== END 2018-06-18 06:32 | disposition home or self-care (01) ==
LOC: ER 03:53
DX: M54.5 Low back pain (principal); J45.909 Unspecified asthma, uncomplicated; Z59.0 Homelessness
CPT/HCPCS: 99283

== ENCOUNTER 2018-06-19 08:04 | Emergency (ER) | payer MEDICAID ==
[2018-06-19 08:12] VITALS: BP 129/84
[2018-06-19] MEDS ORDERED: DIPH/PERTUSS(ACELL)/TETANUS VAC/PF 0.5 ML SYR (>=10YO) IM ONE (08:20)
--- NOTE | 2018-06-19 08:48 | RADIOLOGY REPORT (SQ) ---
EXAM DESCRIPTION: FOOT LEFT 2 VIEWS COMPLETED DATE/TIME: 06/19/2018 8:39 am REASON FOR STUDY: Evaluate for foreign body, left foot pain after stepping on a push pin COMPARISON: None. NUMBER OF VIEWS: Three views. TECHNIQUE: AP, lateral and oblique radiographic images acquired of the left foot. LIMITATIONS: None. FINDINGS: MINERALIZATION: Normal. BONES: No acute fracture or dislocation. No worrisome bone lesions. JOINTS: No effusions. SOFT TISSUES: Mild soft tissue swelling overlying the plantar aspect of the 1st metatarsal head. No radiopaque foreign body. No dissecting subcutaneous gas. OTHER: No other significant finding. IMPRESSION: Mild soft tissue swelling overlying the 1st metatarsal head. No radiopaque foreign body . TECHNICAL DOCUMENTATION: JOB ID: [id number] 1991 [employer] All Rights Reserved Reading location - IP/workstation name: [email or web address]
--- NOTE | 2018-06-19 09:18 | ER Document Report ---
HPI - HPI Patient complains to provider of: foot injury Pain Level: 2 Context: Pt. is a 32 y/o male homeless well known to this ED c/o stepping on "a nkechi tack" [employer]. Patient states he is unsure exactly where he stepped on it states he thinks he stepped on it in the middle of his foot but then also thinks may be the heel of his foot. Patient states the tack was on the ground and not stuck in his foot which is why he is unsure exactly where it punctured his skin. Patient states he would like "the shot that helps me not get that disease." Discussed with patient tetanus update. Patient states that is a shot he would like. Past medical history: None Medications: None Allergies: None - REPRODUCTIVE Reproductive: DENIES: : - MUSCULOSKELETAL Musculoskeletal: DENIES: Extremity pain Past Medical History - General Information source: Patient - Social History Smoking Status: Never Smoker Chew tobacco use (# tins/day): No Drug Abuse: None Lives with: Homeless Family History: Reviewed & Not Pertinent Patient has suicidal ideation: No Patient has homicidal ideation: No Pulmonary Medical History: Reports: Hx Asthma Renal/ Medical History: Denies: Hx Peritoneal Dialysis GI Medical History: Reports: Hx Irritable Bowel - constipation Musculoskeletal Medical History: Reports Hx Arthritis, Reports Hx Musculoskeletal Trauma Psychiatric Medical History: Reports: Hx Anxiety, Hx Bipolar Disorder, Hx Depression, Hx Personality Disorder, Hx Schizophrenia Past Surgical History: Reports: Hx Abdominal Surgery, Hx Appendectomy, Hx Cholecystectomy, Hx Orthopedic Surgery - finger - Immunizations Immunizations up to date: Yes Hx Diphtheria, Pertussis, Tetanus Vaccination: Yes - 2012 Hx Pneumococcal Vaccination: 08/23/00 Vertical Provider Document - CONSTITUTIONAL Agree With Documented VS: Yes Notes: GENERAL: Alert, interacts well. No acute distress. In blue scrubs from the ED, disheveled (reviewed yesterdays note which documented staff gave the patient the blue scrubs due to his clothing being wet and it was raining outside.) HEAD: Normocephalic, atraumatic. EYES: Pupils equal, round, and reactive to light. Extraocular movements intact. ENT: Oral mucosa moist, tongue midline. NECK: Full range of motion. Supple. Trachea midline. LUNGS: Clear to auscultation bilaterally, no wheezes, rales, or rhonchi. No respiratory distress. HEART: Regular rate and rhythm. No murmur ABDOMEN: Soft, non-tender. Non-distended. Bowel sounds present in all 4 quadrants. EXTREMITIES: Moves all 4 extremities spontaneously. No edema, normal radial and dorsalis pedis pulses bilaterally. No cyanosis. BACK: no cervical, thoracic, lumbar midline tenderness. No saddle anesthesia, normal distal neurovascular exam. NEUROLOGICAL: Alert and oriented x3. Normal speech. cranial nerves II through XII grossly intact. PSYCH: Normal affect, normal mood. SKIN: Warm, dry, normal turgor. No rashes or lesions noted. No lesions noted to bottom of left foot. Patient is unable to show me exactly where he stepped on the tack. - INFECTION CONTROL TRAVEL OUTSIDE OF THE [place] IN LAST 30 DAYS: No Course - Re-evaluation Re-evalutation: 06/19/18 09:18 Reviewed x-ray results. Then reevaluated the patient's left foot. Still no signs of trauma to area around the first metatarsal head. Discussed with nurse generalized cleaning of the area. Patient got tetanus update in the emergency room, is happy with his treatment. Return precautions given. - Vital Signs Vital signs: Temp Pulse Resp BP Pulse Ox 97.3 F 56 L 129/84 H 99 06/19/18 08:08 06/19/18 08:08 06/19/18 08:08 06/19/18 08:08 Discharge - Discharge Clinical Impression: Injury of foot, left Qualifiers: Encounter type: initial encounter Qualified Code(s): S99.922A - Unspecified injury of left foot, initial encounter Condition: Stable Disposition: HOME, SELF-CARE Additional Instructions: Your x-ray shows no foreign bodies in your foot. You should continue to keep the area dry and clean. Please return to the emergency room for any other worsening symptoms. Referrals: GIANCARLO CHANCE MD [Primary Care Provider] - Follow up as needed
== END 2018-06-19 09:39 | disposition home or self-care (01) ==
LOC: ER 08:04
DX: S99.929A Unspecified injury of unspecified foot, initial encounter (principal); W26.8XXA Contact with other sharp object(s), not elsewhere classified, initial encounter; J45.909 Unspecified asthma, uncomplicated; Z23 Encounter for immunization
CPT/HCPCS: 90471; 90715; 99283

== ENCOUNTER 2018-06-27 06:53 | Emergency (ER) | payer MEDICAID ==
[2018-06-27 07:00] VITALS: BP 112/65
[2018-06-27] MEDS ORDERED: FAMOTIDINE 20 MG TABLET PO ONE ×2 (07:27→07:33)
--- NOTE | 2018-06-27 07:30 | ER Document Report ---
HPI - HPI Patient complains to provider of: Insect bite Onset: Just prior to arrival Onset/Duration: Sudden Pain Level: Denies Context: Patient complains of mosquito bite to dorsal aspect of left hand that just occurred prior to arrival. Patient denies any difficulty breathing. Patient complains of pruritus to the left hand. Associated Symptoms: Other - Insect bite Exacerbated by: Denies Relieved by: Denies Similar symptoms previously: Yes Recently seen / treated by doctor: No - ROS ROS below otherwise negative: Yes Systems Reviewed and Negative: Yes All other systems reviewed and negative - CONSTITUTIONAL Constitutional: DENIES: Fever - EENT EENT: DENIES: Sore Throat, Congestion - RESPIRATORY Respiratory: DENIES: Trouble Breathing, Coughing - REPRODUCTIVE Reproductive: DENIES: : - MUSCULOSKELETAL Musculoskeletal: REPORTS: Swelling - DERM Skin Color: Erythema Skin Problems: None Past Medical History - General Information source: Patient - Social History Smoking Status: Never Smoker Frequency of alcohol use: None Drug Abuse: None Lives with: Homeless Family History: Reviewed & Not Pertinent Pulmonary Medical History: Reports: Hx Asthma Renal/ Medical History: Denies: Hx Peritoneal Dialysis GI Medical History: Reports: Hx Irritable Bowel - constipation Musculoskeletal Medical History: Reports Hx Arthritis, Reports Hx Musculoskeletal Trauma Psychiatric Medical History: Reports: Hx Anxiety, Hx Bipolar Disorder, Hx Depression, Hx Personality Disorder, Hx Schizophrenia Past Surgical History: Reports: Hx Abdominal Surgery, Hx Appendectomy, Hx Cholecystectomy, Hx Orthopedic Surgery - finger - Immunizations Immunizations up to date: Yes Hx Diphtheria, Pertussis, Tetanus Vaccination: Yes - 2012 Hx Pneumococcal Vaccination: 08/23/00 Vertical Provider Document - CONSTITUTIONAL Agree With Documented VS: Yes Exam Limitations: No Limitations General Appearance: WD/WN, No Apparent Distress - INFECTION CONTROL TRAVEL OUTSIDE OF THE [place] IN LAST 30 DAYS: No - HEENT HEENT: Atraumatic, Normal ENT Exam, Normocephalic - NECK Neck: Normal Inspection - RESPIRATORY Respiratory: Breath Sounds Normal, No Respiratory Distress - CARDIOVASCULAR Cardiovascular: Regular Rate, Regular Rhythm Pulses: Normal: Radial - BACK Back: Normal Inspection - MUSCULOSKELETAL/EXTREMETIES Musculoskeletal/Extremeties: MAEW, FROM - NEURO Level of Consciousness: Awake, Alert, Appropriate Motor/Sensory: No Motor Deficit - DERM Integumentary: Warm, Dry. negative: Abscess Notes: Insect bite to dorsal aspect of left hand to the webspace between the left fourth and fifth fingers. Area erythematous Course - Vital Signs Vital signs: Temp Pulse Resp BP Pulse Ox 97.3 F 56 L 18 112/65 96 06/27/18 06:57 06/27/18 06:57 06/27/18 06:57 06/27/18 06:57 06/27/18 06:57 Discharge - Discharge Clinical Impression: Insect bite Qualifiers: Encounter type: initial encounter Site of insect bite: hand Laterality: left Qualified Code(s): S60.562A - Insect bite (nonvenomous) of left hand, initial encounter Condition: Stable Disposition: HOME, SELF-CARE Instructions: Use of Diphenhydramine, Insect Bites ([facility]), Topical Steroid Cream or Ointment ([facility]) Additional Instructions: Return immediately for any new or worsening symptoms Followup with your primary care provider, call tomorrow to make a followup appointment Take Benadryl [id number] to help with itching Prescriptions: Triamcinolone Acetonide [Aristocort 0.1% Cream] 1 applic TP TID #30 gm Referrals: GIANCARLO CHANCE MD [Primary Care Provider] - Follow up as needed
== END 2018-06-27 07:42 | disposition home or self-care (01) ==
LOC: ER 06:53
DX: S60.562A Insect bite (nonvenomous) of left hand, initial encounter (principal); W57.XXXA Bitten or stung by nonvenomous insect and other nonvenomous arthropods, initial encounter; J45.909 Unspecified asthma, uncomplicated
CPT/HCPCS: 99281; J3490

== ENCOUNTER 2018-07-03 00:35 | Emergency (ER) | payer MEDICAID ==
[2018-07-03 00:40] VITALS: BP 119/74
--- NOTE | 2018-07-03 01:49 | ER Document Report ---
ED General - General Chief Complaint: Wrist Pain Stated Complaint: WRIST PAIN Time Seen by Provider: 07/03/18 01:10 Notes: Patient is a 32-year-old homeless male who presents with concerns of right wrist for right ankle pain. The patient admits freely that his main reason for him to the emergency department tonight because it is cold outside and that he is currently homeless. He states that his right wrist had a throbbing, aching pain earlier but that has resolved. Nothing improved or worsen the pain. Denies any significant pain to the wrist at this time. No injury to the area. States he believes he may have slept on it wrong. TRAVEL OUTSIDE OF THE [place] IN LAST 30 DAYS: No - Related Data Allergies/Adverse Reactions: No Known Allergies Allergy (Verified 07/03/18 00:35) Past Medical History - General Information source: Patient - Social History Smoking Status: Never Smoker Frequency of alcohol use: None Drug Abuse: None Lives with: Homeless Family History: Reviewed & Not Pertinent Patient has suicidal ideation: No Patient has homicidal ideation: No Pulmonary Medical History: Reports: Hx Asthma Renal/ Medical History: Denies: Hx Peritoneal Dialysis GI Medical History: Reports: Hx Irritable Bowel - constipation Musculoskeletal Medical History: Reports Hx Arthritis, Reports Hx Musculoskeletal Trauma Psychiatric Medical History: Reports: Hx Anxiety, Hx Bipolar Disorder, Hx Depression, Hx Personality Disorder, Hx Schizophrenia Past Surgical History: Reports: Hx Abdominal Surgery, Hx Appendectomy, Hx Cholecystectomy, Hx Orthopedic Surgery - finger - Immunizations Immunizations up to date: Yes Hx Diphtheria, Pertussis, Tetanus Vaccination: Yes - 2012 Hx Pneumococcal Vaccination: 08/23/00 Review of Systems - Review of Systems Notes: Constitutional: Negative for fever. Cardiovascular: Negative for chest pain. Respiratory: Negative for shortness of breath. Gastrointestinal: Negative for vomiting Musculoskeletal: Negative for back pain. Positive for right wrist pain Skin: Negative for rash. Neurological: Negative for weakness or numbness. 10 point ROS negative except as marked above and in HPI. Physical Exam - Vital signs Vitals: Temp Pulse Resp BP Pulse Ox 97.6 F 52 L 16 119/74 100 07/03/18 00:39 07/03/18 00:39 07/03/18 00:39 07/03/18 00:39 07/03/18 00:39 Interpretation: Bradycardic Notes: PHYSICAL EXAMINATION: GENERAL: Well-appearing, well-nourished and in no acute distress. HEAD: Atraumatic, normocephalic. EYES: sclera anicteric, conjunctiva are normal. ENT: Moist mucous membranes. NECK: Normal range of motion LUNGS: Normal work of breathing HEART: 2+ radial pulses bilaterally EXTREMITIES: no pitting or edema. No cyanosis. No limited range of motion to the right wrist. No swelling or deformity. NEUROLOGICAL: No focal neurological deficits. Moves all extremities spontaneously and on command. PSYCH: Normal mood, normal affect. SKIN: Warm, Dry, normal turgor, no rashes or lesions noted. Course - Re-evaluation Re-evalutation: 07/03/18 01:48 Patient presents with complaints of right wrist pain to me although upfront said right ankle pain. At time of my evaluation he states that his right wrist is "just a little sore" and that it hurt worse 10 minutes ago but now it is all better. He admits that the main reason he is here is because he is homeless and it is cold outside. I do not see any indication for acute imaging of the area as it does not appear the patient is a she had any acute injury tonight there is no evidence of trauma swelling or limited range of motion of the wrist or hand. - Vital Signs Vital signs: Temp Pulse Resp BP Pulse Ox 97.6 F 52 L 16 119/74 100 07/03/18 00:39 07/03/18 00:39 07/03/18 00:39 07/03/18 00:39 07/03/18 00:39 Discharge - Discharge Clinical Impression: Right wrist pain, Homeless Condition: Good Disposition: HOME, SELF-CARE Additional Instructions: You should continue to take anti-inflammatories such as ibuprofen 600 mg every 6 hours. Continue to apply ice to the area is much your able. Please follow- up with your primary care physician if you do not have improving your symptoms in the next 1-2 weeks. Please return immediately if you develop weakness, numbness, spreading redness from the area, or any other symptoms that are concerning to you. Referrals: GIANCARLO CHANCE MD [Primary Care Provider] - Follow up as needed
== END 2018-07-03 01:53 | disposition home or self-care (01) ==
LOC: ER 00:35
DX: M25.531 Pain in right wrist (principal); J45.909 Unspecified asthma, uncomplicated; Z59.0 Homelessness
CPT/HCPCS: 99283

== ENCOUNTER 2018-07-08 19:33 | Emergency (ER) | payer MEDICAID ==
[2018-07-08 19:48] VITALS: BP 120/89
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
== END 2018-07-08 22:50 | disposition home or self-care (01) ==
LOC: ER 19:33
DX: Z77.110 Contact with and (suspected) exposure to air pollution (principal); J45.909 Unspecified asthma, uncomplicated
CPT/HCPCS: 99284

== ENCOUNTER 2018-07-26 22:21 | Emergency (ER) | payer MEDICAID ==
[2018-07-26 22:57] VITALS: BP 113/68
--- NOTE | 2018-07-26 23:59 | ER Document Report ---
HPI - HPI Patient complains to provider of: congestion Time Seen by Provider: 07/26/18 23:27 Pain Level: 2 Context: Patient is a 33-year-old male presenting to the emergency department chief complaint nasal congestion. Patient states he has a history of asthma and "I just want to make sure my asthma is okay." Patient denies any shortness of breath states he just feels very congested. Patient denies coughing, fever, vomiting, diarrhea, chest pain. Past medical history: Asthma Medications: None Allergies: None - CARDIOVASCULAR Cardiovascular: DENIES: Chest pain - RESPIRATORY Respiratory: REPORTS: Trouble Breathing - intermittent SOB. DENIES: Coughing - REPRODUCTIVE Reproductive: DENIES: : Past Medical History - General Information source: Patient - Social History Smoking Status: Never Smoker Frequency of alcohol use: None Drug Abuse: None Family History: Reviewed & Not Pertinent Patient has suicidal ideation: No Patient has homicidal ideation: No Pulmonary Medical History: Reports: Hx Asthma Renal/ Medical History: Denies: Hx Peritoneal Dialysis GI Medical History: Reports: Hx Irritable Bowel - constipation Musculoskeletal Medical History: Reports Hx Arthritis, Reports Hx Musculoskeletal Trauma Psychiatric Medical History: Reports: Hx Anxiety, Hx Bipolar Disorder, Hx Depression, Hx Personality Disorder, Hx Schizophrenia Past Surgical History: Reports: Hx Abdominal Surgery, Hx Appendectomy, Hx Cholecystectomy, Hx Orthopedic Surgery - finger - Immunizations Immunizations up to date: Yes Hx Diphtheria, Pertussis, Tetanus Vaccination: Yes - 2012 Hx Pneumococcal Vaccination: 08/23/00 Vertical Provider Document - CONSTITUTIONAL Agree With Documented VS: Yes Notes: GENERAL: Alert, interacts well. No acute distress. HEAD: Normocephalic, atraumatic. EYES: Pupils equal, round, and reactive to light. Extraocular movements intact. ENT: Oral mucosa moist, tongue midline. Nares patent, swollen turbinates bilaterally, TM's intact, Nonerythematous, non-bulging. Pharynx within normal limits, no palatal petechiae or exudate noted. NECK: Full range of motion. Supple. Trachea midline. No lymphadenopathy appreciated LUNGS: Clear to auscultation bilaterally, no wheezes, rales, or rhonchi. No respiratory distress. HEART: Regular rate and rhythm. No murmur ABDOMEN: Soft, non-tender. Non-distended. Bowel sounds present in all 4 quadrants. EXTREMITIES: Moves all 4 extremities spontaneously. No edema, normal radial and dorsalis pedis pulses bilaterally. No cyanosis. BACK: no cervical, thoracic, lumbar midline tenderness. No saddle anesthesia, normal distal neurovascular exam. NEUROLOGICAL: Alert and oriented x3. Normal speech. cranial nerves II through XII grossly intact PSYCH: Normal affect, normal mood. SKIN: Warm, dry, normal turgor. No rashes or lesions noted. - INFECTION CONTROL TRAVEL OUTSIDE OF THE [place] IN LAST 30 DAYS: No Course - Re-evaluation Re-evalutation: 07/26/18 23:57 Discussed with patient that his lungs sounded totally clear and he had no respiratory distress. Patient states he knew that he was not short of breath but he was just worried because he has a history of asthma. Patient very appreciative with my examination and then requests to christiane crackers and peanut butter. Discussed with patient need to return to the emergency room should he develop shortness of breath or any other concerning symptoms. - Vital Signs Vital signs: Temp Pulse Resp BP Pulse Ox 98.4 F 62 18 113/68 98 07/26/18 22:57 07/26/18 22:57 07/26/18 22:57 07/26/18 22:57 07/26/18 22:57 Discharge - Discharge Clinical Impression: Nasal congestion Condition: Stable Disposition: HOME, SELF-CARE Instructions: Upper Respiratory Illness ([facility]) Prescriptions: Mometasone Furoate [Nasonex] 1 spray NS Q12 #1 spray.pump Referrals: GIANCARLO CHANCE MD [Primary Care Provider] - Follow up as needed
== END 2018-07-27 00:20 | disposition home or self-care (01) ==
LOC: ER 22:21
DX: R09.81 Nasal congestion (principal); J45.909 Unspecified asthma, uncomplicated
CPT/HCPCS: 99283

== ENCOUNTER 2018-07-28 08:35 | Emergency (ER) | payer MEDICAID ==
[2018-07-28 08:50] VITALS: BP 148/84
--- NOTE | 2018-07-28 08:55 | ER Document Report ---
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 No new medications, travel or foods. No [id number] medications have been tried for this. Symptoms resolved after a few seconds. States he does have a history of anxiety. Denies fevers, chills, chest pain, palpitations, shortness of breath, dyspnea, nausea, vomiting, diarrhea, abdominal pain, hematuria,blurred vision, double vision, loss of vision, speech changes, LH, dizziness, syncope, headaches, wheezing, ST, URI, neck pain, weakness, bowel or bladder dysfunction, saddle anesthesia, numbness or tingling in bilateral upper or lower extremities equally, muscle paralysis, weakness in bilateral upper or lower extremities equally or rash. - REPRODUCTIVE Reproductive: DENIES: : Past Medical History - General Information source: Patient - Social History Smoking Status: Unknown if Ever Smoked Family History: Reviewed & Not Pertinent Patient has suicidal ideation: No Patient has homicidal ideation: No Pulmonary Medical History: Reports: Hx Asthma Renal/ Medical History: Denies: Hx Peritoneal Dialysis GI Medical History: Reports: Hx Irritable Bowel - constipation Musculoskeletal Medical History: Reports Hx Arthritis, Reports Hx Musculoskeletal Trauma Psychiatric Medical History: Reports: Hx Anxiety, Hx Bipolar Disorder, Hx Depression, Hx Personality Disorder, Hx Schizophrenia Past Surgical History: Reports: Hx Abdominal Surgery, Hx Appendectomy, Hx Cholecystectomy, Hx Orthopedic Surgery - finger - Immunizations Immunizations up to date: Yes Hx Diphtheria, Pertussis, Tetanus Vaccination: Yes - 2012 Hx Pneumococcal Vaccination: 08/23/00 Vertical Provider Document - CONSTITUTIONAL Agree With Documented VS: Yes Notes: PHYSICAL EXAMINATION: GENERAL: Well-appearing, well-nourished and in no acute distress. HEAD: Atraumatic, normocephalic. EYES: Pupils equal round and reactive to light, extraocular movements intact, sclera anicteric, conjunctiva are normal. ENT: Nares patent, oropharynx clear without exudates. Moist mucous membranes. NECK: Normal range of motion, supple without lymphadenopathy LUNGS: Breath sounds clear to auscultation bilaterally and equal. No wheezes rales or rhonchi. HEART: Regular rate and rhythm without murmurs ABDOMEN: Soft, nontender, nondistended abdomen. No guarding, no rebound. No masses appreciated. Musculoskeletal: Normal range of motion, no pitting or edema. No cyanosis. NEUROLOGICAL: Cranial nerves grossly intact. Normal speech, normal gait. Normal sensory, motor exams PSYCH: Normal mood, normal affect. SKIN: Warm, Dry, normal turgor, no rashes or lesions noted. - INFECTION CONTROL TRAVEL OUTSIDE OF THE [place] IN LAST 30 DAYS: No Course - Re-evaluation Re-evalutation: 07/28/18 08:53 Healthy 33-year-old male, afebrile vitals stable and in no distress was concerned about being next to a affiliate marketing specialist when he felt a "flushed" sensation and felt a "little hot". Symptoms resolved immediately. Patient states he was going to wait an hour disease primary care provider but wanted to be checked out to make sure he does not have extreme exposure to radiation. Explained to patient that his affiliate marketing specialist does not have any radiation components and its. Patient is not taking any medications. I have reevaluated this patient multiple times and no significant life threatening changes, no signs of toxicity , sepsis or peritonitis are noted. The patient and I have discussed the diagnosis and risks, and we agree with discharging home and close follow-up. We also discussed returning to the Emergency Department immediately if new or worsening symptoms occur with the understanding that symptoms and presentations can change. At this time will discharge with return precautions and follow-up recommendations. Verbal discharge instructions given a the bedside and opportunity for questions given. We have discussed the symptoms which are most concerning (e.g., fever, headaches, abd pain, cp, sob, worsening pain) that necessitate immediate return. Medication warnings reviewed. All questions and concerns answered by this provider. Patient is in agreement with this plan and has verbalized understanding of return precautions and the need for primary care follow-up in the next 24-72 hours. Patient verbalized understanding of plan of care and agree with plan of care. - Vital Signs Vital signs: Temp Pulse Resp BP Pulse Ox 98.0 F 65 18 148/84 H 100 07/28/18 08:48 07/28/18 08:48 07/28/18 08:48 07/28/18 08:48 07/28/18 08:48 Discharge - Discharge Clinical Impression: Well adult exam, Anxiety Condition: Stable Disposition: HOME, SELF-CARE Instructions: Anxiety ([facility]) Additional Instructions: Anxiety The physician feels that some of your health problems are being caused by anxiety. Anxiety affects your health in many ways. Anxiety alone can cause palpitations, sweats, chest pains, abdominal pains, shortness of breath, and headaches. It contributes to ulcer disease, high blood pressure, irritable bowel syndrome, and has been shown to cause flare-ups of many other diseases. Anxiety is not a simple disorder to treat. If the anxiety is due to recent life stresses, you may simply need time to "work through" the changes. If the anxiety is due to an underlying unhappiness with yourself or due to psychiatric disturbance, professional help will be needed. Your physician can refer you for further help if needed. Anti-anxiety medication is occasionally given if the stress is acute or if you are having trouble sleeping. Chronic or frequent use of these medications is not a good idea because the body becomes reliant on it, preventing you from dealing with life's normal stresses. Return immediately for any new or worsening symptoms. Follow up with primary care provider, call tomorrow to make followup appointment. Referrals: GIANCARLO CHANCE MD [Primary Care Provider] - Follow up tomorrow (prn)
== END 2018-07-28 08:58 | disposition home or self-care (01) ==
LOC: ER 08:35
DX: Z71.1 Person with feared health complaint in whom no diagnosis is made (principal); F41.9 Anxiety disorder, unspecified
CPT/HCPCS: 99283

== ENCOUNTER 2018-07-31 04:49 | Emergency (ER) | payer MEDICAID ==
[2018-07-31 04:59] VITALS: BP 141/81
--- NOTE | 2018-07-31 05:16 | ER Document Report ---
ED ENT - General Chief Complaint: Cold Symptoms Stated Complaint: BACK PAIN Time Seen by Provider: 07/31/18 05:14 Mode of Arrival: Ambulatory Information source: Patient TRAVEL OUTSIDE OF THE [place] IN LAST 30 DAYS: No - HPI Patient complains to provider of: Nose problem Onset: This morning Onset/Duration: Gradual Quality of pain: Achy Severity: Mild Pain Level: 1 Location of pain: Nose, Sinus Associated symptoms: Congestion Notes: Patient is a 33-year-old male presenting to the congestion this been going on since yesterday morning, denies any fever, no cough, has not taken anything over -the-counter, denies additional symptoms - Related Data Allergies/Adverse Reactions: No Known Allergies Allergy (Verified 07/28/18 08:38) Past Medical History - General Information source: Patient - Social History Smoking Status: Unknown if Ever Smoked Family History: Reviewed & Not Pertinent Pulmonary Medical History: Reports: Hx Asthma Renal/ Medical History: Denies: Hx Peritoneal Dialysis GI Medical History: Reports: Hx Irritable Bowel - constipation Musculoskeletal Medical History: Reports Hx Arthritis, Reports Hx Musculoskeletal Trauma Psychiatric Medical History: Reports: Hx Anxiety, Hx Bipolar Disorder, Hx Depression, Hx Personality Disorder, Hx Schizophrenia Past Surgical History: Reports: Hx Abdominal Surgery, Hx Appendectomy, Hx Cholecystectomy, Hx Orthopedic Surgery - finger - Immunizations Immunizations up to date: Yes Hx Diphtheria, Pertussis, Tetanus Vaccination: Yes - 2012 Hx Pneumococcal Vaccination: 08/23/00 Review of Systems - Review of Systems Constitutional: No symptoms reported EENT: See HPI Cardiovascular: No symptoms reported Respiratory: No symptoms reported Gastrointestinal: No symptoms reported Genitourinary: No symptoms reported Male Genitourinary: No symptoms reported Musculoskeletal: No symptoms reported Skin: No symptoms reported Hematologic/Lymphatic: No symptoms reported Neurological/Psychological: No symptoms reported -: Yes All other systems reviewed and negative Physical Exam - Vital signs Vitals: Temp Pulse Resp BP Pulse Ox 97.3 F 62 16 141/81 H 100 07/31/18 04:57 07/31/18 04:57 07/31/18 04:57 07/31/18 04:57 07/31/18 04:57 - Notes Notes: - General General appearance: Appears well, Alert In distress: None - HEENT Head: Normocephalic, Atraumatic Eyes: Normal Conjunctiva: Normal Extraocular movements intact: Yes Eyelashes: Normal Pupils: PERRL - Respiratory Respiratory status: No respiratory distress - Cardiovascular Rhythm: Regular - Abdominal Inspection: Normal - Back Back: Normal - Extremities General upper extremity: Normal inspection General lower extremity: Normal inspection - Neurological Neuro grossly intact: Yes Orientation: AAOx4 [place] Coma Scale Eye Opening: Spontaneous [place] Coma Scale Verbal: Oriented Jasmin Coma Scale Motor: Obeys Commands [place] Coma Scale Total: 15 - Psychological Associated symptoms: Normal affect, Normal mood - Skin Skin Temperature: Warm Skin Moisture: Dry Skin Color: Normal - HEENT Nasal: Swelling, Clear rhinorrhea Mouth/Lips: Normal Mucous membranes: Normal Pharynx: Normal Neck: Normal Course - Re-evaluation Re-evalutation: 07/31/18 23:37 Patient was stable vital signs, physical exam findings unremarkable except for nasal congestion with nasal turbinate swelling, given prescription for decongestant medication, advised to follow-up with primary care or return if any additional concerns, patient acknowledges understanding and agreement with this plan - Vital Signs Vital signs: Temp Pulse Resp BP Pulse Ox 97.3 F 62 16 141/81 H 100 07/31/18 04:57 07/31/18 04:57 07/31/18 04:57 07/31/18 04:57 07/31/18 04:57 Discharge - Discharge Clinical Impression: Nasal congestion Condition: Stable Disposition: HOME, SELF-CARE Instructions: Nasal Sprays and Drops ([facility]) Additional Instructions: Follow up with your primary care provider in one to 2 days. Return to the emergency room immediately if symptoms worsen or any additional concerns. Prescriptions: Pseudoephedrine HCl 30 mg PO BID #20 tablet Referrals: GIANCARLO CHANCE MD [Primary Care Provider] - Follow up as needed
== END 2018-07-31 05:28 | disposition home or self-care (01) ==
LOC: ER 04:49
DX: R09.81 Nasal congestion (principal); M54.9 Dorsalgia, unspecified; Z90.49 Acquired absence of other specified parts of digestive tract
CPT/HCPCS: 99283

== ENCOUNTER 2018-08-10 04:51 | Emergency (ER) | payer MEDICAID ==
--- NOTE | 2018-08-10 06:40 | ER Document Report ---
ED General - General Chief Complaint: Congestion Stated Complaint: COLD SYMPTOMS Time Seen by Provider: 08/10/18 06:34 Notes: Patient is a 33-year-old male presents to the emergency department weaning of nasal congestion. Patient initially requesting a pneumonia and flu test. Patient is denying cough or fever states he only has a runny nose. Patient states he has had a "runny nose all my life." Patient is well-known to the emergency department has been here multiple times. Past medical history: None Medications: None Allergies: None TRAVEL OUTSIDE OF THE [place] IN LAST 30 DAYS: No - Related Data Allergies/Adverse Reactions: No Known Allergies Allergy (Verified 07/28/18 08:38) Past Medical History - General Information source: Patient - Social History Smoking Status: Unknown if Ever Smoked Family History: Reviewed & Not Pertinent Pulmonary Medical History: Reports: Hx Asthma Renal/ Medical History: Denies: Hx Peritoneal Dialysis GI Medical History: Reports: Hx Irritable Bowel - constipation Musculoskeletal Medical History: Reports Hx Arthritis, Reports Hx Musculoskeletal Trauma Psychiatric Medical History: Reports: Hx Anxiety, Hx Bipolar Disorder, Hx Depression, Hx Personality Disorder, Hx Schizophrenia Past Surgical History: Reports: Hx Abdominal Surgery, Hx Appendectomy, Hx Cholecystectomy, Hx Orthopedic Surgery - finger - Immunizations Immunizations up to date: Yes Hx Diphtheria, Pertussis, Tetanus Vaccination: Yes - 2012 Hx Pneumococcal Vaccination: 08/23/00 Review of Systems - Review of Systems Constitutional: See HPI EENT: See HPI Cardiovascular: No symptoms reported Respiratory: See HPI Gastrointestinal: No symptoms reported Genitourinary: No symptoms reported Male Genitourinary: No symptoms reported Musculoskeletal: No symptoms reported Skin: No symptoms reported Hematologic/Lymphatic: No symptoms reported Neurological/Psychological: No symptoms reported Physical Exam - Notes Notes: GENERAL: Alert, interacts well. No acute distress. HEAD: Normocephalic, atraumatic. No frontal or maxillary sinus tenderness EYES: Pupils equal, round, and reactive to light. Extraocular movements intact. ENT: Oral mucosa moist, tongue midline. Nares patent, TM's intact, nonerythematous, nonbulging, pharynx within normal limits, nonerythematous, no palatal petechiae or exudate noted. NECK: Full range of motion. Supple. Trachea midline. LUNGS: Clear to auscultation bilaterally, no wheezes, rales, or rhonchi. No respiratory distress. HEART: Regular rate and rhythm. No murmur ABDOMEN: Soft, non-tender. Non-distended. Bowel sounds present in all 4 quadrants. EXTREMITIES: Moves all 4 extremities spontaneously. No edema, normal radial and dorsalis pedis pulses bilaterally. No cyanosis. BACK: no cervical, thoracic, lumbar midline tenderness. No saddle anesthesia, normal distal neurovascular exam. NEUROLOGICAL: Alert and oriented x3. Normal speech. cranial nerves II through XII grossly intact PSYCH: Normal affect, normal mood. SKIN: Warm, dry, normal turgor. No rashes or lesions noted. Course - Re-evaluation Re-evalutation: 08/10/18 06:38 Discussed with patient at length if his lung sounds are clear, he does not have a cough, no fever that there is no need to do a chest x-ray to rule out pneumonia. Pneumonia is very unlikely at this time. Discussed with patient we would do influenza testing if he would like. Patient was very appreciated of the influenza test. Influenza test came back negative. Patient is in no respiratory distress, has no fever, non-tachycardic, nontoxic appearing. Stable for discharge Discharge - Discharge Clinical Impression: Nasal congestion Condition: Stable Disposition: HOME, SELF-CARE Instructions: Upper Respiratory Illness ([facility]) Additional Instructions: As we discussed you have been seen and treated in the emergency department for your nasal congestion. Please take [id number] cold and cough medications. Please stay well-hydrated and follow-up with your primary care provider in the next 24-48 hours. Please return to the emergency room for any other concerning symptoms. Referrals: GIANCARLO CHANCE MD [Primary Care Provider] - Follow up as needed
[2018-08-10 07:47] LABS: A TYPE INFLUENZA AG NEGATIVE (NEGATIVE); B INFLUENZA AG NEGATIVE (NEGATIVE)
== END 2018-08-10 06:35 | disposition home or self-care (01) ==
LOC: ER 04:51
DX: R09.81 Nasal congestion (principal); R09.89 Other specified symptoms and signs involving the circulatory and respiratory systems; J45.909 Unspecified asthma, uncomplicated
CPT/HCPCS: 87804; 99283

== ENCOUNTER 2018-08-10 18:50 | Emergency (ER) | payer MEDICAID ==
[2018-08-10] MEDS ORDERED: NORMAL SALINE 1000 ML 1,000 ML IV ONE ×2 (19:27→21:44)
[2018-08-10] MEDS ORDERED: KETOROLAC TROMETHAMINE INJ/PF 30 MG/1 ML SDV IV ONE (19:28)
[2018-08-10] MEDS ORDERED: FAMOTIDINE INJ/PF 20 MG/2 ML SDV IV ONE (19:28)
--- NOTE | 2018-08-10 19:30 | ER Document Report ---
ED Medical Screen (RME) - General Chief Complaint: Nausea/Vomiting Stated Complaint: HEADACHE Time Seen by Provider: 08/10/18 19:23 TRAVEL OUTSIDE OF THE [place] IN LAST 30 DAYS: No - HPI Notes: 08/10/18 19:28 Patient is a 33-year-old male that presents to the emergency department for chief complaint of vomiting. Patient states he started vomiting at 5 PM today. Patient presented by EMS and received 8 mg of Zofran in route which he states gave him some relief of his nausea. Patient also endorsing a generalized headache but denies any numbness or weakness he denies any drug or alcohol use. Patient is homeless and states he is not sure where he is going to go tonight ROS: GENERAL: Denies fever of chills CV: Denies chest pain PHYSICAL EXAMINATION: GENERAL: Well-appearing, well-nourished and in no acute distress. HEAD: Atraumatic, normocephalic. EYES: Pupils equal round extraocular movements intact, conjunctiva are normal. ENT: Nares patent NECK: Normal range of motion LUNGS: No respiratory distress Musculoskeletal: Normal range of motion NEUROLOGICAL: Normal speech, normal gait. PSYCH: Normal mood, normal affect. MDM: Patient seen and examined for rapid initial assessment. Vital signs reviewed. A comprehensive ED assessment and evaluation of the patient, analysis of test results and completion of the medical decision making process will be conducted by additional ED providers. - Related Data Allergies/Adverse Reactions: No Known Allergies Allergy (Verified 08/10/18 18:56) Past Medical History - Social History Family history: Reviewed & Not Pertinent Pulmonary Medical History: Reports: Hx Asthma Renal/ Medical History: Denies: Hx Peritoneal Dialysis GI Medical History: Reports: Hx Irritable Bowel - constipation Musculoskeltal Medical History: Reports Hx Arthritis, Reports Hx Musculoskeletal Trauma Psychiatric Medical History: Reports: Hx Anxiety, Hx Bipolar Disorder, Hx Depression, Hx Personality Disorder, Hx Schizophrenia Past Surgical History: Reports: Hx Abdominal Surgery, Hx Appendectomy, Hx Cholecystectomy, Hx Orthopedic Surgery - finger - Immunizations Immunizations up to date: Yes Hx Diphtheria, Pertussis, Tetanus Vaccination: Yes - 2012 Physical Exam - Vital signs Vitals: Temp Pulse Resp BP Pulse Ox 97.5 F 62 16 119/69 99 08/10/18 19:08 08/10/18 19:08 08/10/18 19:08 08/10/18 19:08 08/10/18 19:08 Course - Vital Signs Vital signs: Temp Pulse Resp BP Pulse Ox 97.5 F 62 16 119/69 99 08/10/18 19:08 08/10/18 19:08 08/10/18 19:08 08/10/18 19:08 08/10/18 19:08 Doctor's Discharge - Discharge Referrals: GIANCARLO CHANCE MD [Primary Care Provider] - Follow up as needed
[2018-08-10 20:13] LABS: ABSOLUTE EOSINOPHILS # (AUTO) 0.3 10^3/uL (0.0-0.6); ABSOLUTE LYMPHOCYTES (AUTO) 0.7 10^3/uL (0.5-4.7); ABSOLUTE MONOCYTES (AUTO) 0.2 10^3/uL (0.1-1.4); ABSOLUTE NEUT (AUTO) 5.2 10^3/uL (1.7-8.2); BASOPHILS % (AUTO) 0.5 % (0-2); EOSINOPHILS % (AUTO) 4.4 % (0-6); HEMATOCRIT 41.8 % (37.9-51.0); HEMOGLOBIN 13.9 g/dL (13.5-17.0); LYMPHOCYTES % (AUTO) 10.7 % (13-45); MEAN CORPUSCULAR HEMOGLOBIN 27.1 pg (27.0-33.4); MEAN CORPUSCULAR HGB CONC 33.3 g/dL (32.0-36.0); MEAN CORPUSCULAR VOLUME 81 fl (80-97); MONOCYTES % (AUTO) 2.8 % (3-13); PLATELET COUNT 201 10^3/uL (150-450); RED BLOOD COUNT 5.13 10^6/uL (4.35-5.55); SEGMENTED NEUTROPHILS % (AUTO) 81.6 % (42-78); TOTAL CELLS COUNTED % (AUTO) 100 %; WHITE BLOOD COUNT 6.4 10^3/uL (4.0-10.5)
[2018-08-10 20:33] LABS: ALANINE AMINOTRANSFERASE 15 U/L (21-72); ALBUMIN 4.3 g/dL (3.5-5.0); ALKALINE PHOSPHATASE 78 U/L (38-126); ANION GAP 7 (5-19); ASPARTATE AMINO TRANSFERASE 28 U/L (17-59); BILIRUBIN,DIRECT 0.3 mg/dL (0.0-0.4); BLOOD UREA NITROGEN 20 mg/dL (7-20); CALCIUM 9.4 mg/dL (8.4-10.2); CARBON DIOXIDE 31 mmol/L (22-30); CHLORIDE 103 mmol/L (98-107); GLUCOSE 122 mg/dL (75-110); LIPASE 52.8 U/L (23-300); POTASSIUM 4.6 mmol/L (3.6-5.0); SODIUM 140.6 mmol/L (137-145); TOTAL PROTEIN 7.4 g/dL (6.3-8.2)
[2018-08-10 20:35] LABS: ALCOHOL < 10 mg/dL (NONE DETECTED)
[2018-08-10] MEDS ORDERED: METOCLOPRAMIDE HCL INJ/PF 10 MG/2 ML SDV IV ONE (21:44)
[2018-08-10] MEDS ORDERED: ONDANSETRON ODT 4 MG TAB (6 TAB/ER DISP) PO PRN (23:02)
--- NOTE | 2018-08-10 23:02 | ER Document Report ---
ED GI/ - General Chief Complaint: Nausea/Vomiting Stated Complaint: HEADACHE Time Seen by Provider: 08/10/18 19:23 Mode of Arrival: Ambulatory Information source: Patient Notes: Patient is a 33-year-old male who presents to the emergency department with chief complaint of vomiting. Patient reports he began vomiting earlier today. He denies any abdominal pain other than when he vomits. He denies any fever or diarrhea. TRAVEL OUTSIDE OF THE [place] IN LAST 30 DAYS: No - Related Data Allergies/Adverse Reactions: No Known Allergies Allergy (Verified 08/10/18 18:56) Past Medical History - General Information source: Patient - Social History Smoking Status: Current Some Day Smoker Frequency of alcohol use: None Drug Abuse: None Family History: Reviewed & Not Pertinent Patient has suicidal ideation: No Patient has homicidal ideation: No Pulmonary Medical History: Reports: Hx Asthma Renal/ Medical History: Denies: Hx Peritoneal Dialysis GI Medical History: Reports: Hx Irritable Bowel - constipation Musculoskeletal Medical History: Reports Hx Arthritis, Reports Hx Musculoskeletal Trauma Psychiatric Medical History: Reports: Hx Anxiety, Hx Bipolar Disorder, Hx Depression, Hx Personality Disorder, Hx Schizophrenia Past Surgical History: Reports: Hx Abdominal Surgery, Hx Appendectomy, Hx Cholecystectomy, Hx Orthopedic Surgery - finger - Immunizations Immunizations up to date: Yes Hx Diphtheria, Pertussis, Tetanus Vaccination: Yes - 2012 Hx Pneumococcal Vaccination: 08/23/00 Review of Systems - Review of Systems Gastrointestinal: Nausea, Vomiting. denies: Abdominal pain, Diarrhea, Blood streaked bowels, Blood in vomit -: Yes All other systems reviewed and negative Physical Exam - Vital signs Vitals: Temp Pulse Resp BP Pulse Ox 97.5 F 62 16 119/69 99 08/10/18 19:08 08/10/18 19:08 08/10/18 19:08 08/10/18 19:08 08/10/18 19:08 - Notes Notes: PHYSICAL EXAMINATION: GENERAL: Well-appearing, well-nourished and in no acute distress. HEAD: Atraumatic, normocephalic. EYES: Pupils equal round and reactive to light, extraocular movements intact, sclera anicteric, conjunctiva are normal. ENT: Nares patent, oropharynx clear without exudates. Moist mucous membranes. NECK: Normal range of motion, supple without lymphadenopathy LUNGS: Breath sounds clear to auscultation bilaterally and equal. No wheezes rales or rhonchi. HEART: Regular rate and rhythm without murmurs ABDOMEN: Soft, nontender, nondistended abdomen. No guarding, no rebound. No masses appreciated. Musculoskeletal: Normal range of motion, no pitting or edema. No cyanosis. NEUROLOGICAL: Cranial nerves grossly intact. Normal speech, normal gait. Normal sensory, motor exams PSYCH: Normal mood, normal affect. SKIN: Warm, Dry, normal turgor, no rashes or lesions noted. Course - Re-evaluation Re-evalutation: CBC, CMP and lipase are unremarkable. Patient has not vomited since arrival to the emergency department. Patient's abdomen is soft, nontender, nondistended with no guarding or rebound present. Patient was given a total of 2 L of IV fluids. Patient's vital signs are within normal limits and patient is stable for discharge. Patient was given strict ED return precautions as outlined in his discharge instructions. - Vital Signs Vital signs: Temp Pulse Resp BP Pulse Ox 97.5 F 62 16 119/69 99 08/10/18 19:08 08/10/18 19:08 08/10/18 19:08 08/10/18 19:08 08/10/18 19:08 - Laboratory Result Diagrams: 08/10/18 19:58 08/10/18 19:58 Laboratory results interpreted by me: 08/10/18 08/10/18 19:58 19:58 Seg Neutrophils % 81.6 H Lymphocytes % 10.7 L Monocytes % 2.8 L Carbon Dioxide 31 H Glucose 122 H ALT 15 L Discharge - Discharge Clinical Impression: Nausea and vomiting Qualifiers: Vomiting type: unspecified Vomiting Intractability: unspecified Qualified Code(s): R11.2 - Nausea with vomiting, unspecified Condition: Stable Disposition: HOME, SELF-CARE Additional Instructions: VOMITING: Vomiting (or nausea without vomiting) can be caused by many other different problems. It can mean that something's wrong with the stomach, such as ulcers or inflammation or the intestinal tract, such as appendicitis. But it can also be a symptom of a problem that has nothing to do with the stomach or intestines. Vomiting is common with severe headaches, earaches, tonsillitis, and kidney infections, etc. We see it with pneumonia or heart attacks. Drugs can cause nausea and vomiting. Many abdominal problems cause vomiting; for example, gallstones, kidney stones, pancreatitis, and intestinal obstruction (blocked bowels). In most cases, curing the vomiting depends on fixing the problem that caused it. For temporary relief, we may use an anti-nausea medicine. For home use, we can prescribe suppositories, chewable pills, pills that dissolve in the mouth, or liquid anti-nausea drugs. If the vomiting seems to be caused by a problem in the stomach, acid-suppressing drugs may be prescribed as well. It's important to avoid dehydration. Sip small amounts of clear liquids (soft drinks, tea, broth, etc) . Try to take fluids frequently even if you are vomiting to prevent dehydration. Take increasing amounts of fluid and when liquids are being consumed successfully, advance to small amounts of bland food (toast, soups, mashed potatoes, etc.) until you are able to resume a regular diet. Avoid aspirin, tobacco, and alcohol. If the vomiting worsens, if the problem that's making you vomit worsens, or if there's evidence of bleeding in the stomach (such as black, tarry stool, or bloody or black vomit), you should return immediately. Also, return if abdominal pain worsens or becomes localized to one area or you develop high fever. Call your doctor if you aren't improved in 24 hours. VIRAL SYNDROME: The physician has diagnosed a viral infection. Viruses not only cause "colds," but can cause many different symptoms including generalized aching, fever, headache, cough, diarrhea, nausea, vomiting, and fatigue. The treatment, for the most part, is simply relief of symptoms. This means that antibiotics are usually not given. Rest, fluids, pain medications and, occasionally, medication for the specific symptoms that are most bothersome will be prescribed. Use good handwashing to avoid passing the virus to others. Shared toys should be cleaned with disinfectant. Clean the toilets, sinks, and counter surfaces in bathrooms. Launder clothing in hot water. Contact the physician if you develop any new or unusual symptoms such as severe headache, stiff neck, high fever, chest pain, productive cough, or kaylyn rtness of breath. You should be rechecked if you don't see marked improvement within seven to 10 days. INTRAVENOUS (I V) FLUIDS: As part of your care today, you received intravenous (IV) fluids. IV fluids are administered to patients who are dehydrated or to those who have certain chemical (electrolyte) abnormalities that need correcting. ANTINAUSEA MEDICATION: You have been given a medication to suppress nausea and vomiting. This type of medication can be given as a shot, pill, or suppository. It will usually last for many hours. Pills and shots usually last six to eight hours. For the typical illness, only one or two doses of the medication may be necessary. Mild lightheadedness may occur. This type of medicine can cause drowsiness. Do not drive or operate dangerous machinery while under its influence. Do not mix with alcohol. See your doctor at once if you have muscle spasms or tightness, or uncontrollable motions (particularly of the neck, mouth, or jaw). Persistent vomiting or severe lightheadedness should also be evaluated by the physician. REGLAN (METOCLOPRAMIDE): Reglan has been prescribed. This medicine affects the stomach and intesti judie. It can be used to treat nausea and vomiting, to prevent reflux of stomach acid up into the esophagus, or to increase the contractions of the stomach and intestines. It is often prescribed for esophagitis, and for paralysis of the stomach in diabetics. Reglan can cause either mild restlessness or drowsiness. You should contact the doctor at once if you become extremely restless, anxious, or cannot sleep, or if you develop uncontrollable motions of the lips, tongue, or jaw. Do not take alcohol with this medicine. Do not drive or operate machinery until you have been taking this medicine long enough to know how it affects you. Call the doctor if you develop abdominal pains, lightheadedness, black stool, or blood in the stool or vomitus. FOLLOW-UP CARE: If you have been referred to a physician for follow-up care, call the physicians office for an appointment as you were instructed or within the next two days. If you experience worsening or a significant change in your symptoms, notify the physician immediately or return to the Emergency Department at any time for re-evaluation. Please return to the emergency department if you develop worsening abdominal pain, you develop a fever or have persistent vomiting. We are happy to reevaluate you at any time. Referrals: GIANCARLO CHANCE MD [Primary Care Provider] - Follow up as needed
[2018-08-10 23:26] VITALS: BP 112/73
== END 2018-08-10 23:23 | disposition home or self-care (01) ==
LOC: ER 18:50
DX: R11.2 Nausea with vomiting, unspecified (principal); J45.909 Unspecified asthma, uncomplicated; F17.200 Nicotine dependence, unspecified, uncomplicated; Z87.19 Personal history of other diseases of the digestive system; Z90.49 Acquired absence of other specified parts of digestive tract
CPT/HCPCS: 99284; 96361; 96374; 96375; 36415; 80307; 83690; 85025; 80053; J1885; J2765; J7030; S0028

== ENCOUNTER 2018-08-14 22:10 | Emergency (ER) | payer MEDICAID ==
[2018-08-14 22:17] VITALS: BP 127/72
[2018-08-14] MEDS ORDERED: BENZONATATE 100 MG CAPSULE PO ONE (22:29)
[2018-08-14] MEDS ORDERED: ALBUTEROL SULFATE HFA (90 MCG/PUFF) 200 PUFF/8.5 GM MDI IH ONE (23:09)
--- NOTE | 2018-08-14 23:10 | ER Document Report ---
ED General - General Chief Complaint: Cough Stated Complaint: COUGH,DIFFICULTY BREATHING Time Seen by Provider: 08/14/18 22:28 Notes: Patient is a 33-year-old male with a past medical history of asthma, currently homeless who presents with complaints of nasal congestion, cough and wheezing. Patient states that being outdoors in the cold has exacerbated his symptoms. He has not trying to improve his symptoms. States this feels similar to when he has had asthma attacks in the past. Denies fever or constitutional symptoms. Symptoms started gradually and have improved since onset. TRAVEL OUTSIDE OF THE [place] IN LAST 30 DAYS: No - Related Data Allergies/Adverse Reactions: No Known Allergies Allergy (Verified 08/10/18 18:56) Past Medical History - General Information source: Patient - Social History Smoking Status: Never Smoker Chew tobacco use (# tins/day): No Frequency of alcohol use: None Drug Abuse: None Lives with: Homeless Family History: Reviewed & Not Pertinent Patient has suicidal ideation: No Patient has homicidal ideation: No Pulmonary Medical History: Reports: Hx Asthma Renal/ Medical History: Denies: Hx Peritoneal Dialysis GI Medical History: Reports: Hx Irritable Bowel - constipation Musculoskeletal Medical History: Reports Hx Arthritis, Reports Hx Musculoskeletal Trauma Psychiatric Medical History: Reports: Hx Anxiety, Hx Bipolar Disorder, Hx Depression, Hx Personality Disorder, Hx Schizophrenia Past Surgical History: Reports: Hx Abdominal Surgery, Hx Appendectomy, Hx Cholecystectomy, Hx Orthopedic Surgery - finger - Immunizations Immunizations up to date: Yes Hx Diphtheria, Pertussis, Tetanus Vaccination: Yes - 2012 Hx Pneumococcal Vaccination: 08/23/00 Review of Systems - Review of Systems Notes: Constitutional: Negative for fever. HENT: Positive for nasal congestion Eyes: Negative for visual changes. Cardiovascular: Negative for chest pain. Respiratory: Positive for cough Gastrointestinal: Negative for abdominal pain, vomiting or diarrhea. Genitourinary: Negative for dysuria. Musculoskeletal: Negative for back pain. Skin: Negative for rash. Neurological: Negative for headaches, weakness or numbness. 10 point ROS negative except as marked above and in HPI. Physical Exam - Vital signs Vitals: Temp Pulse Resp BP Pulse Ox 98.7 F 74 16 127/72 H 98 08/14/18 22:15 08/14/18 22:15 08/14/18 22:15 08/14/18 22:15 08/14/18 22:15 Interpretation: Normal Notes: PHYSICAL EXAMINATION: GENERAL: Well-appearing, well-nourished and in no acute distress. HEAD: Atraumatic, normocephalic. EYES: Pupils equal round and reactive to light, extraocular movements intact, sclera anicteric, conjunctiva are normal. ENT: Nasal congestion, oropharynx clear without exudates. Moist mucous membranes. NECK: Normal range of motion, supple without lymphadenopathy LUNGS: Breath sounds clear to auscultation bilaterally and equal. No wheezes rales or rhonchi. HEART: Regular rate and rhythm without murmurs ABDOMEN: Soft, nontender, normoactive bowel sounds. No guarding, no rebound. No masses appreciated. EXTREMITIES: Normal range of motion, no pitting or edema. No cyanosis. NEUROLOGICAL: No focal neurological deficits. Moves all extremities spontaneously and on command. PSYCH: Normal mood, normal affect. SKIN: Warm, Dry, normal turgor, no rashes or lesions noted. Course - Re-evaluation Re-evalutation: 08/14/18 23:09 Presentation is most consistent with a viral upper respiratory infection. Patient is overall well appearance, vitals within normal limits, well-hydrated. Patient denies any headache, neck pain, and has no evidence of meningismus on examination. Lungs are clear bilaterally. No evidence of respiratory distress. Based on clinical exam and history, I do not suspect an acute pneumonia, meningitis, strep pharyngitis, or an acute encephalitis. No laboratory or imaging testing is indicated at this time. Will discharge patient with return precautions and followup recommendations. They are in agreement this plan have verbalized understanding return precautions. - Vital Signs Vital signs: Temp Pulse Resp BP Pulse Ox 98.7 F 74 16 127/72 H 98 08/14/18 22:15 08/14/18 22:15 08/14/18 22:15 08/14/18 22:15 08/14/18 22:15 Discharge - Discharge Clinical Impression: Nasal congestion, Viral upper respiratory infection Condition: Good Disposition: HOME, SELF-CARE Additional Instructions: Your symptoms are most likely due to a viral infection it should resolve over the next 7-14 days. You should take [id number] guanfacine per bottle instructions to help thin the mucus. For nasal congestion: I would recommend that you get [id number] oxymetazoline also known is afrin. Use only per bottle instructions and be sure to never use this for more than 3 days if you can develop severe rebound congestion. You may also use tylenol or ibuprofen as needed for aches and thorat discomfort. Please be sure to drink plenty of fluids and get rest. Return to the emergency department he began having difficulty breathing, chest pain, persistent vomiting, or any other symptoms that are concerning to you. Referrals: GIANCARLO CHANCE MD [Primary Care Provider] - Follow up as needed
== END 2018-08-14 23:25 | disposition home or self-care (01) ==
LOC: ER 22:10
DX: J06.9 Acute upper respiratory infection, unspecified (principal); R09.81 Nasal congestion; Z59.0 Homelessness
CPT/HCPCS: 99283; J3490 ×2

== ENCOUNTER 2018-08-15 15:29 | Emergency (ER) | payer MEDICAID ==
[2018-08-15] MEDS ORDERED: GUAIFENESIN 600 MG TABLET.SA PO ONE (16:09)
[2018-08-15] MEDS ORDERED: LORATADINE 10 MG TABLET PO ONE (16:09)
[2018-08-15] MEDS ORDERED: PSEUDOEPHEDRINE HCL 30 MG TABLET PO ONE (16:09)
[2018-08-15] MEDS ORDERED: IBUPROFEN 600 MG TABLET PO ONE (16:09)
[2018-08-15 16:12] VITALS: BP 119/73
--- NOTE | 2018-08-15 16:15 | ER Document Report ---
HPI - HPI Patient complains to provider of: Cough cold congestion and headache Time Seen by Provider: 08/15/18 15:58 Onset: Other - Couple weeks Onset/Duration: Intermittent Quality of pain: Achy Severity: Moderate Pain Level: 2 Associated Symptoms: Nonproductive cough, Headache, Rhinnorhea, Sinus pain/drainage Exacerbated by: Denies Relieved by: Denies Similar symptoms previously: Yes Recently seen / treated by doctor: Yes - ROS ROS below otherwise negative: Yes - CONSTITUTIONAL Constitutional: DENIES: Fever, Chills - EENT EENT: REPORTS: Sore Throat, Nasal Drainage-Purulent, Congestion - NEURO Neurology: REPORTS: Headache - CARDIOVASCULAR Cardiovascular: DENIES: Chest pain - RESPIRATORY Respiratory: REPORTS: Coughing. DENIES: Trouble Breathing - GASTROINTESTINAL Gastrointestinal: DENIES: Abdominal Pain, Nausea, Patient vomiting, Diarrhea, Constipation, Black / Bloody Stools - URINARY Urinary: DENIES: Dysuria, Urgency, Frequency - REPRODUCTIVE Reproductive: DENIES: :, Postmenopausal, Abnormal bleeding / discharge - MUSCULOSKELETAL Musculoskeletal: REPORTS: Extremity pain - body aches - DERM Skin Color: Normal Skin Problems: None Past Medical History - General Information source: Patient - Social History Smoking Status: Former Smoker Cigarette use (# per day): No Chew tobacco use (# tins/day): No Smoking Education Provided: No Frequency of alcohol use: None Drug Abuse: None Lives with: Homeless Family History: Reviewed & Not Pertinent Patient has suicidal ideation: No Patient has homicidal ideation: No - Past Medical History Cardiac Medical History: Reports: None Pulmonary Medical History: Reports: Hx Asthma EENT Medical History: Reports: None Neurological Medical History: Reports: None Endocrine Medical History: Reports: None Renal/ Medical History: Reports: None Malignancy Medical History: Reports None GI Medical History: Reports: Hx Irritable Bowel - constipation Musculoskeletal Medical History: Reports Hx Arthritis, Reports Hx Musculoskeletal Trauma Skin Medical History: Reports None Psychiatric Medical History: Reports: Hx Anxiety, Hx Bipolar Disorder, Hx Depression, Hx Personality Disorder, Hx Schizophrenia Traumatic Medical History: Reports: None Infectious Medical History: Reports: None Past Surgical History: Reports: Hx Abdominal Surgery, Hx Appendectomy, Hx Cholecystectomy, Hx Orthopedic Surgery - finger - Immunizations Immunizations up to date: Yes Hx Diphtheria, Pertussis, Tetanus Vaccination: Yes - 2012 Hx Pneumococcal Vaccination: 08/23/00 Vertical Provider Document - CONSTITUTIONAL Agree With Documented VS: Yes Exam Limitations: No Limitations General Appearance: WD/WN, No Apparent Distress - INFECTION CONTROL TRAVEL OUTSIDE OF THE [place] IN LAST 30 DAYS: No - HEENT HEENT: Atraumatic, Normocephalic, PERRLA Notes: Patient has purulent nasal drainage with mild swelling to the nasal passage. Minimal postnasal drip. Lungs are clear to auscultation no wheezing noted at this time. No rales no rhonchi. Patient has assessment consistent with upper respiratory infection is in the emergency room frequently has recently had blood work completed. - RESPIRATORY Respiratory: Breath Sounds Normal, No Respiratory Distress, Chest Non-Tender - CARDIOVASCULAR Cardiovascular: Regular Rate, Regular Rhythm - GI/ABDOMEN Gastrointestinal: Abdomen Soft, Abdomen Non-Tender, No Organomegaly, Normal Bowel Sounds - BACK Back: Normal Inspection - MUSCULOSKELETAL/EXTREMETIES Musculoskeletal/Extremeties: Tender - Body aches no point tenderness - NEURO Level of Consciousness: Awake, Alert - DERM Integumentary: Warm, Dry, No Rash Discharge - Discharge Clinical Impression: Viral respiratory illness, Cough Condition: Stable Disposition: HOME, SELF-CARE Additional Instructions: UPPER RESPIRATORY ILLNESS: You have a viral infection of the respiratory passages -- a "cold." This common infection causes nasal congestion, drainage, and often sore throat and cough. It is highly contagious. The disease usually lasts about 10 to 14 days. There is no "cure" for the viral infection -- it must run its course. If there is a complication, such as bacterial infection in the nose, sinuses, middle ear, or bronchial tubes, antibiotics may be required. The antibiotics won't affect the virus. Drink plenty of fluids. A humidifier may help. An expectorant medication or decongestant may make you more comfortable. Use acetaminophen or ibuprofen for fever or aches. See the doctor if fever persists over two days, if there is any significant worsening of your symptoms, or if you simply fail to improve as expected. DECONGESTANT MEDICATION: A decongestant medicine has been given to you. Often this medicine is combined in the same tablet with an antihistamine or expectorant. This type of medicine is helpful in treating a bad cold or sinus condition, as well as in treatment of the nasal congestion of hay fever. It is not of much benefit for lung infections. Decongestant medicines are related to stimulants. They can cause an increase in blood pressure and heart rate. Persons with heart disease and high blood pressure should not take decongestants without discussing this with the physician. If you develop palpitations, chest pain, headache, or tremors, stop the medicine and consult your physician. COUGH-SUPPRESSANT & EXPECTORANT MEDICATION: You are to use a cough medication as needed for relief of symptoms. This medicine is a combination of an expectorant (to make the mucous thinner and more easily "coughed up") and a cough suppressant (to reduce the frequency of coughing). The cough-suppressant medicine is related to narcotics. You may experience mild nausea and sleepiness. Some patients who are very sensitive to narcotics may have stomach pain from this medicine. Taking the medicine with food reduces these side effects. Do not drive or work with machinery until you know how this medicine affects you. The expectorant should have no side effects. Iodine-containing expectorants (such as organidin) should not be taken by persons with active thyroid disease unless approved by your doctor. Call the doctor if you develop shortness of breath, hives, rash, itching, lightheadedness, or severe nausea and vomiting. You were treated with Sudafed, Claritin, Mucinex, and ibuprofen for your cough cold and congestion. This will also help with your headache. Try taken ibuprofen or Tylenol for your body aches. Increase your fluid intake FOLLOW-UP CARE: If you have been referred to a physician for follow-up care, [facility] an appointment as you were instructed or within the next two days. If you experience worsening or a significant change in your symptoms, notify the physician immediately or return to the Emergency Department at any time for re-evaluation. Referrals: GIANCARLO CHANCE MD [Primary Care Provider] - Follow up as needed
== END 2018-08-15 16:25 | disposition home or self-care (01) ==
LOC: ER 15:29
DX: J06.9 Acute upper respiratory infection, unspecified (principal); R05 Cough; R09.81 Nasal congestion; R51 Headache; J34.89 Other specified disorders of nose and nasal sinuses; Z87.891 Personal history of nicotine dependence; J45.909 Unspecified asthma, uncomplicated
CPT/HCPCS: 99284; J3490 ×3

== ENCOUNTER 2018-08-26 06:06 | Emergency (ER) | payer MEDICAID ==
[2018-08-26 06:12] VITALS: BP 124/69
[2018-08-26] MEDS ORDERED: ONDANSETRON ODT 4 MG TAB (6 TAB/ER DISP) PO PRN (06:30)
--- NOTE | 2018-08-26 06:37 | ER Document Report ---
ED General - General Chief Complaint: Vomiting Stated Complaint: VOMITING Time Seen by Provider: 08/26/18 06:29 TRAVEL OUTSIDE OF THE [place] IN LAST 30 DAYS: No - HPI Patient complains to provider of: Nausea vomiting Notes: Patient coming in for evaluation of nausea and vomiting. Patient states vomited food that he ate the day prior to yesterday. Patient states no fevers no chills no diarrhea states no sick contacts. Patient otherwise states that he is feeling much better at this time did not receive any medication. Denies any medical issues. Patient otherwise looks well no obvious distress - Related Data Allergies/Adverse Reactions: No Known Allergies Allergy (Verified 08/15/18 15:30) Past Medical History - Social History Smoking Status: Unknown if Ever Smoked Family History: Reviewed & Not Pertinent Pulmonary Medical History: Reports: Hx Asthma Renal/ Medical History: Denies: Hx Peritoneal Dialysis GI Medical History: Reports: Hx Irritable Bowel - constipation Musculoskeletal Medical History: Reports Hx Arthritis, Reports Hx Musculoskeletal Trauma Psychiatric Medical History: Reports: Hx Anxiety, Hx Bipolar Disorder, Hx Depression, Hx Personality Disorder, Hx Schizophrenia Past Surgical History: Reports: Hx Abdominal Surgery, Hx Appendectomy, Hx Cholecystectomy, Hx Orthopedic Surgery - finger - Immunizations Immunizations up to date: Yes Hx Diphtheria, Pertussis, Tetanus Vaccination: Yes - 2012 Hx Pneumococcal Vaccination: 08/23/00 Review of Systems - Review of Systems Constitutional: No symptoms reported EENT: No symptoms reported Cardiovascular: No symptoms reported Respiratory: No symptoms reported Gastrointestinal: Nausea, Vomiting Genitourinary: No symptoms reported Male Genitourinary: No symptoms reported Musculoskeletal: No symptoms reported Skin: No symptoms reported Hematologic/Lymphatic: No symptoms reported Neurological/Psychological: No symptoms reported -: Yes All other systems reviewed and negative Physical Exam - Vital signs Vitals: Temp Pulse Resp BP Pulse Ox 97.8 F 69 16 124/69 99 08/26/18 06:09 08/26/18 06:09 08/26/18 06:09 08/26/18 06:09 08/26/18 06:09 Interpretation: Normal - General General appearance: Appears well, Alert - HEENT Head: Normocephalic, Atraumatic Eyes: Normal Pupils: PERRL - Respiratory Respiratory status: No respiratory distress Chest status: Nontender Breath sounds: Normal Chest palpation: Normal - Cardiovascular Rhythm: Regular Heart sounds: Normal auscultation Murmur: No - Abdominal Inspection: Normal Distension: No distension Bowel sounds: Normal Tenderness: Nontender Organomegaly: No organomegaly - Back Back: Normal, Nontender - Extremities General upper extremity: Normal inspection, Nontender, Normal color, Normal ROM, Normal temperature General lower extremity: Normal inspection, Nontender, Normal color, Normal ROM, Normal temperature, Normal weight bearing. No: Esdras's sign - Neurological Neuro grossly intact: Yes Cognition: Normal Orientation: AAOx4 Jasmin Coma Scale Eye Opening: Spontaneous [place] Coma Scale Verbal: Oriented [place] Coma Scale Motor: Obeys Commands [place] Coma Scale Total: 15 Speech: Normal Motor strength normal: LUE, RUE, LLE, RLE Sensory: Normal - Psychological Associated symptoms: Normal affect, Normal mood - Skin Skin Temperature: Warm Skin Moisture: Dry Skin Color: Normal Course - Re-evaluation Re-evalutation: 08/26/18 14:58 Patient coming in for nausea vomiting The patient presents with nausea vomiting without signs of peritonitis or other life-threatening or serious etiology. The patient appears stable for discharge and has been instructed to return immediately if the symptoms worsen in any way, or in 8-12hr if not improved for re-evaluation. The patient has been instructed to return if the symptoms worsen or change in any way. - Vital Signs Vital signs: Temp Pulse Resp BP Pulse Ox 97.8 F 69 16 124/69 99 08/26/18 06:09 08/26/18 06:09 08/26/18 06:09 08/26/18 06:09 08/26/18 06:09 Discharge - Discharge Clinical Impression: Nausea & vomiting Qualifiers: Vomiting type: unspecified Vomiting Intractability: unspecified Qualified Code(s): R11.2 - Nausea with vomiting, unspecified Condition: Good Disposition: HOME, SELF-CARE Instructions: Nausea or Vomiting, Nonspecific ([facility]), Vomiting ([facility]) Additional Instructions: take medication as prescribed. return to the er if symptoms worsen. Referrals: GIANCARLO CHANCE MD [Primary Care Provider] - Follow up as needed
== END 2018-08-26 06:48 | disposition home or self-care (01) ==
LOC: ER 06:06
DX: R11.2 Nausea with vomiting, unspecified (principal); J45.909 Unspecified asthma, uncomplicated; Z87.19 Personal history of other diseases of the digestive system; Z90.49 Acquired absence of other specified parts of digestive tract
CPT/HCPCS: 99283

== ENCOUNTER 2018-09-08 06:42 | Emergency (ER) | payer MEDICAID ==
[2018-09-08 06:55] VITALS: BP 128/83
--- NOTE | 2018-09-08 07:05 | ER Document Report ---
HPI - HPI Time Seen by Provider: 09/08/18 07:04 Onset: Just prior to arrival Onset/Duration: Sudden Quality of pain: No pain Pain Level: Denies Associated Symptoms: None Exacerbated by: Denies Relieved by: Denies Notes: 33-year-old male states he was brushing his teeth, use order to rinse out his mouth and accidentally swallowed a little bit of residual toothpaste with his soda. Patient was concerned if he needed any lab work. Denies fevers, chills, chest pain,palpitations, shortness of breath, dyspnea, nausea, vomiting, diarrhea, abdominal pain, hematuria,blurred vision, double vision, loss of vision, speech changes, LH, dizziness, syncope, headaches, wheezing, ST, URI, neck pain, weakness, bowel or bladder dysfunction, saddle anesthesia, numbness or tingling in bilateral upper or lower extremities equally, muscle paralysis, weakness in bilateral upper or lower extremities equally or rash. - REPRODUCTIVE Reproductive: DENIES: : Past Medical History - General Information source: Patient - Social History Smoking Status: Unknown if Ever Smoked Family History: Reviewed & Not Pertinent Pulmonary Medical History: Reports: Hx Asthma Renal/ Medical History: Denies: Hx Peritoneal Dialysis GI Medical History: Reports: Hx Irritable Bowel - constipation Musculoskeletal Medical History: Reports Hx Arthritis, Reports Hx Musculoskeletal Trauma Psychiatric Medical History: Reports: Hx Anxiety, Hx Bipolar Disorder, Hx Depression, Hx Personality Disorder, Hx Schizophrenia Past Surgical History: Reports: Hx Abdominal Surgery, Hx Appendectomy, Hx Cholecystectomy, Hx Orthopedic Surgery - finger - Immunizations Immunizations up to date: Yes Hx Diphtheria, Pertussis, Tetanus Vaccination: Yes - 2012 Hx Pneumococcal Vaccination: 08/23/00 Vertical Provider Document - CONSTITUTIONAL Agree With Documented VS: Yes Notes: PHYSICAL EXAMINATION: GENERAL: Well-appearing, well-nourished and in no acute distress. HEAD: Atraumatic, normocephalic. EYES: Pupils equal round and reactive to light, extraocular movements intact, sclera anicteric, conjunctiva are normal. ENT: Nares patent, oropharynx clear without exudates. Uvula midline, no tonsillar edema. Airway patent Moist mucous membranes. Dentition in good repair. NECK: Normal range of motion, supple without lymphadenopathy LUNGS: Breath sounds clear to auscultation bilaterally and equal. No wheezes rales or rhonchi. HEART: Regular rate and rhythm without murmurs ABDOMEN: Soft, nontender, nondistended abdomen. No guarding, no rebound. No masses appreciated. Musculoskeletal: Normal range of motion, no pitting or edema. No cyanosis. NEUROLOGICAL: Cranial nerves grossly intact. Normal speech, normal gait. Normal sensory, motor exams PSYCH: Normal mood, normal affect. SKIN: Warm, Dry, normal turgor, no rashes or lesions noted. - INFECTION CONTROL TRAVEL OUTSIDE OF THE [place] IN LAST 30 DAYS: No Course - Re-evaluation Re-evalutation: 09/08/18 07:16 Afebrile vitals stable no distress male presents for evaluation of swelling a little bit of toothpaste while he was rinsing his mouth, less than 1 mL. Patient states this occurred just prior to arrival. Was concerned about lab work or if this will change his "acid base balance". He was in no distress, denied any pain. Discussed with patient that he barely ingested any of his [place] toothpaste after he is rinsing his mouth, reassurance given. I have reevaluated this patient multiple times and no significant life threatening changes, no signs of toxicity, sepsis or peritonitis are noted. The patient and I have discussed the diagnosis and risks, and we agree with discharging home and close follow-up. We also discussed returning to the Emergency Department immediately if new or worsening symptoms occur with the understanding that symptoms and presentations can change. At this time will discharge with return precautions and follow-up recommendations. Verbal discharge instructions given a the bedside and opportunity for questions given. We have discussed the symptoms which are most concerning (e.g., occult he swallowing, fever, chest pain, shortness of breath, changing or worsening pain) that necessitate immediate return. Medication warnings reviewed. All questions and concerns answered by this provider. Patient is in agreement with this plan and has verbalized understanding of return precautions and the need for primary care follow-up in the next 24-72 hours. Patient verbalized understanding of plan of care and agree with plan of care. - Vital Signs Vital signs: Temp Pulse Resp BP Pulse Ox 97.7 F 60 16 128/83 H 97 09/08/18 06:54 09/08/18 06:54 09/08/18 06:54 09/08/18 06:54 09/08/18 06:54 Discharge - Discharge Clinical Impression: swallowed small amount of toothpaste Condition: Stable Disposition: HOME, SELF-CARE Additional Instructions: You swallowed an significant amount mixed with a little bit of your soda. A dvised him his mouth thoroughly after brushing her teeth. Monitor for any symptoms such as upset stomach nausea vomiting. Follow-up with your doctor as needed. Return immediately for any new or worsening symptoms. Follow up with primary care provider, call tomorrow to make followup appointment. Referrals: GIANCARLO CHANCE MD [Primary Care Provider] - Follow up as needed
== END 2018-09-08 07:42 | disposition home or self-care (01) ==
LOC: ER 06:42
DX: Z04.89 Encounter for examination and observation for other specified reasons (principal)
CPT/HCPCS: 99283

== ENCOUNTER 2018-09-09 19:01 | Emergency (ER) | payer MEDICAID ==
[2018-09-09 19:46] VITALS: BP 121/68
[2018-09-09] MEDS ORDERED: ONDANSETRON ODT 4 MG TAB (6 TAB/ER DISP) PO PRN (20:58)
[2018-09-09] MEDS ORDERED: ACETAMINOPHEN 325 MG TABLET PO ONE (20:58)
[2018-09-09] MEDS ORDERED: ONDANSETRON 4 MG TAB.RAPDIS PO ONE (20:58)
--- NOTE | 2018-09-09 20:59 | ER Document Report ---
ED Medical Screen (RME) - General Chief Complaint: Headache Stated Complaint: HEADACHE Time Seen by Provider: 09/09/18 20:55 Mode of Arrival: Ambulatory Information source: Patient Notes: 33-year-old man homeless who presents with some nausea and a headache. He denies any fever, photophobia, cough. He denies any recent illnesses. He has had the nausea and the headache since this afternoon. He denies any trauma. TRAVEL OUTSIDE OF THE [place] IN LAST 30 DAYS: No - HPI Onset: This afternoon Onset/Duration: Gradual Quality of pain: Dull Severity: Mild Pain Level: 0 Associated Symptoms: denies: Chills, Fever, Shortness of breath Exacerbated by: Denies Relieved by: Denies Similar symptoms previously: Yes Recently seen / treated by doctor: Yes - Related Data Smoking: Non-smoker Frequency of alcohol use: None Drug Abuse: None Allergies/Adverse Reactions: No Known Allergies Allergy (Verified 08/15/18 15:30) Past Medical History - General Information source: Patient - Social History Cigarette use (# per day): No Chew tobacco use (# tins/day): No Frequency of alcohol use: None Drug Abuse: None Lives with: Family Family history: Reviewed & Not Pertinent - Past Medical History Cardiac Medical History: Reports: None Pulmonary Medical History: Reports: Hx Asthma Renal/ Medical History: Denies: Hx Peritoneal Dialysis GI Medical History: Reports: Hx Irritable Bowel - constipation Musculoskeltal Medical History: Reports Hx Arthritis, Reports Hx Musculoskeletal Trauma Psychiatric Medical History: Reports: Hx Anxiety, Hx Bipolar Disorder, Hx Depression, Hx Personality Disorder, Hx Schizophrenia Past Surgical History: Reports: Hx Abdominal Surgery, Hx Appendectomy, Hx Cholecystectomy, Hx Orthopedic Surgery - finger - Immunizations Immunizations up to date: Yes Hx Diphtheria, Pertussis, Tetanus Vaccination: Yes - 2012 Review of Systems - Review of Systems Constitutional: denies: Chills, Fever EENT: No symptoms reported Cardiovascular: denies: Chest pain, Palpitations, Heart racing Respiratory: No symptoms reported. denies: Cough, Hemoptysis, Short of breath Gastrointestinal: Nausea. denies: Abdominal pain, Vomiting Genitourinary: No symptoms reported Male Genitourinary: No symptoms reported Musculoskeletal: No symptoms reported Skin: No symptoms reported Hematologic/Lymphatic: No symptoms reported Neurological/Psychological: Headaches. denies: Confusion, Weakness, Gait changes, Loss of power, Numbness Physical Exam - Vital signs Vitals: Temp Pulse Resp BP Pulse Ox 98.1 F 61 18 121/68 100 09/09/18 19:40 09/09/18 19:40 09/09/18 19:40 09/09/18 19:40 09/09/18 19:40 Notes: Physical exam: GENERAL: She is alert and oriented x3, no acute distress HEAD: Atraumatic, normocephalic. EYES: Pupils equal round and reactive to light, extraocular movements intact, sclera anicteric, conjunctiva are normal. ENT: TMs normal, nares patent, oropharynx clear without exudates. Moist mucous membranes. NECK: Normal range of motion, supple without obvious mass or JVD. LUNGS: Breath sounds clear to auscultation bilaterally and equal. No wheezes rales or rhonchi. HEART: Regular rate and rhythm without murmurs, rubs or gallops. ABDOMEN: Soft, normoactive bowel sounds. No tenderness to palpation. No guarding, no rebound. No masses appreciated. EXTREMITIES: Normal range of motion, no pitting or edema. No clubbing or cyanosis. NEUROLOGICAL: Cranial nerves II through XII grossly intact. 5/5, sensory grossly intact, neck supple, no meningismus, normal speech, moving all extremities, gait normal. PSYCH: Normal mood, normal affect. SKIN: Warm, Dry, normal turgor, no rashes or lesions noted. Course - Vital Signs Vital signs: Temp Pulse Resp BP Pulse Ox 98.1 F 61 18 121/68 100 09/09/18 19:40 09/09/18 19:40 09/09/18 19:40 09/09/18 19:40 09/09/18 19:40 Doctor's Discharge - Discharge Clinical Impression: Headache Condition: Stable Disposition: HOME, SELF-CARE Additional Instructions: Take Zofran for nausea. Emergency room for any fever, worsening headache, light bothering the eyes, rest pain or shortness of breath Follow-up at the [facility] Referrals: GIANCARLO CHANCE MD [Primary Care Provider] - Follow up as needed
== END 2018-09-09 21:15 | disposition home or self-care (01) ==
LOC: ER 19:01
DX: R51 Headache (principal); Z90.49 Acquired absence of other specified parts of digestive tract
CPT/HCPCS: 99283; J3490; S0119

== ENCOUNTER 2018-09-21 04:25 | Emergency (ER) | payer MEDICAID ==
[2018-09-21] MEDS ORDERED: ALBUTEROL SULFATE HFA (90 MCG/PUFF) 8 GM MDI (1 MDI/ER DISP) IH ONE (07:55)
--- NOTE | 2018-09-21 07:59 | ER Document Report ---
HPI - HPI Time Seen by Provider: 09/21/18 07:25 Pain Level: 2 Notes: Patient is a 33-year-old male who is well-known to our department presenting with chief complaint of right ankle pain and request to be checked for pneumonia. Patient denies any fever or chills, states he has had a mild cough. States he is out of his albuterol inhaler. Patient reports no injury to his ankle but reports that he is homeless and has been walking "miles and miles per day". - REPRODUCTIVE Reproductive: DENIES: : Past Medical History - General Information source: Patient - Social History Smoking Status: Current Some Day Smoker Family History: Reviewed & Not Pertinent Patient has suicidal ideation: No Patient has homicidal ideation: No Pulmonary Medical History: Reports: Hx Asthma Renal/ Medical History: Denies: Hx Peritoneal Dialysis GI Medical History: Reports: Hx Irritable Bowel - constipation Musculoskeletal Medical History: Reports Hx Arthritis, Reports Hx Musculoskeletal Trauma Psychiatric Medical History: Reports: Hx Anxiety, Hx Bipolar Disorder, Hx Depression, Hx Personality Disorder, Hx Schizophrenia Past Surgical History: Reports: Hx Abdominal Surgery, Hx Appendectomy, Hx Cholecystectomy, Hx Orthopedic Surgery - finger - Immunizations Immunizations up to date: Yes Hx Diphtheria, Pertussis, Tetanus Vaccination: Yes - 2012 Hx Pneumococcal Vaccination: 08/23/00 Vertical Provider Document - CONSTITUTIONAL Notes: PHYSICAL EXAMINATION: GENERAL: Well-appearing, well-nourished and in no acute distress. HEAD: Atraumatic, normocephalic. EYES: Pupils equal round extraocular movements intact, conjunctiva are normal. ENT: Nares patent NECK: Normal range of motion LUNGS: No respiratory distress, mild expiratory wheeze noted to right upper lobe. Musculoskeletal: Normal range of motion, no swelling, ecchymosis or erythema noted to right ankle. NEUROLOGICAL: Normal speech, normal gait. PSYCH: Normal mood, normal affect. SKIN: Warm, Dry, normal turgor, no rashes or lesions noted. - INFECTION CONTROL TRAVEL OUTSIDE OF THE [place] IN LAST 30 DAYS: No Course - Re-evaluation Re-evalutation: 09/21/18 07:57 Patient's examination is benign other than a very faint wheeze in the right upper lobe. No imaging is indicated at this time. Patient will be sent home with an albuterol dispense as he is a known asthmatic and is homeless and states he does not have an inhaler. I will also provide patient with an ankle stirrup splint as patient does repeatedly come in for ankle pain due to walking all the time. - Vital Signs Vital signs: Temp Pulse Resp BP Pulse Ox 97.6 F 69 18 124/75 98 09/21/18 04:27 09/21/18 04:27 09/21/18 04:27 09/21/18 04:27 09/21/18 04:27 Procedures - Immobilization Right ankle Pre-Proc Neuro Vasc Exam: Normal Immobilizer type: Ankle stirrup Performed by: Provider Post-Proc Neuro Vasc Exam: Normal Alignment checked and good: Yes Discharge - Discharge Clinical Impression: Wheezing Ankle pain, right Qualifiers: Chronicity: acute Qualified Code(s): M25.571 - Pain in right ankle and joints o f right foot Condition: Stable Disposition: HOME, SELF-CARE Additional Instructions: We have given you a ankle stirrup splint today for your ankle pain. This might help give you some support. X-rays are not indicated as you have not had an injury. I have also sent to home today with a an albuterol inhaler dispense. Please take 2 puffs every 4 hours as needed for any shortness of breath or wheezing. Your lungs were clear today and you have not had a fever so there is no indication for an x-ray at this time. Please return to the emergency department if you develop worsening symptoms such as fever. Referrals: GIANCARLO CHANCE MD [Primary Care Provider] - Follow up as needed
[2018-09-21 08:14] VITALS: BP 127/65
== END 2018-09-21 08:15 | disposition home or self-care (01) ==
LOC: ER 04:25
DX: M25.571 Pain in right ankle and joints of right foot (principal); R06.2 Wheezing; F17.200 Nicotine dependence, unspecified, uncomplicated; Z90.49 Acquired absence of other specified parts of digestive tract
CPT/HCPCS: 99283; L1902; J3490

== ENCOUNTER 2018-09-29 03:12 | Emergency (ER) | payer MEDICAID ==
[2018-09-29 03:30] VITALS: BP 124/66
[2018-09-29] MEDS ORDERED: ALBUTEROL SULFATE 0.083% NEB 2.5 MG/3 ML AMPUL NEB ONE (06:08)
--- NOTE | 2018-09-29 06:10 | ER Document Report ---
ED Respiratory Problem - General Chief Complaint: Cough Stated Complaint: COUGH Time Seen by Provider: 09/29/18 05:06 Primary Care Provider: GIANCARLO CHANCE MD [Primary Care Provider] - Follow up as needed Notes: 33-year-old homeless male to the emergency department complaining of cough. Patient states that he ate some food and it made him start coughing. He has a history of asthma. Was afraid to take his inhaler because he thought may be that would make the coughing worse. It stopped since he is got to the ER. Has been resting comfortably. No acute distress at this time. Denies any other major symptoms. TRAVEL OUTSIDE OF THE [place] IN LAST 30 DAYS: No - HPI Patient complains to provider of: Cough Duration: Better - Related Data Allergies/Adverse Reactions: No Known Allergies Allergy (Verified 09/29/18 03:17) Past Medical History - General Information source: Patient - Social History Smoking Status: Current Some Day Smoker Frequency of alcohol use: None Lives with: Homeless Family History: Reviewed & Not Pertinent Patient has suicidal ideation: No Patient has homicidal ideation: No Pulmonary Medical History: Reports: Hx Asthma Renal/ Medical History: Denies: Hx Peritoneal Dialysis GI Medical History: Reports: Hx Irritable Bowel - constipation Musculoskeletal Medical History: Reports Hx Arthritis, Reports Hx Musculoskele giovanna Trauma Psychiatric Medical History: Reports: Hx Anxiety, Hx Bipolar Disorder, Hx Depression, Hx Personality Disorder, Hx Schizophrenia Past Surgical History: Reports: Hx Abdominal Surgery, Hx Appendectomy, Hx Cholecystectomy, Hx Orthopedic Surgery - finger - Immunizations Immunizations up to date: Yes Hx Diphtheria, Pertussis, Tetanus Vaccination: Yes - 2012 Hx Pneumococcal Vaccination: 08/23/00 Review of Systems - Review of Systems Notes: Constitutional: denies: Chills, Diaphoresis, Fever, Malaise, Weakness EENT: denies: Eye discharge, Blurred vision, Tearing, Double vision, Nose congestion, Nose discharge, Throat swelling, Mouth pain Cardiovascular: denies: Palpitations, Heart racing, Orthopnea, Dyspnea, Chest pain Respiratory: Positive for cough, wheezing, shortness of breath Gastrointestinal: denies: Abdominal pain, Diarrhea, Nausea, Vomiting, Black stools, bright red blood in stool Genitourinary: denies: Burning, Dysuria, Discharge, Frequency, Flank pain, Hematuria Musculoskeletal: denies: Joint pain, Joint swelling, Muscle pain, Muscle stiffness, back pain Hematologic/Lymphatic: denies: Anemia, Easy bleeding, Easy bruising, Blood clots Neurological/Psychological: denies: Confusion, Dementia, Depression, Loss of consciousness Skin: No lesions, no masses, no skin breakdown, no abscesses Physical Exam - Vital signs Vitals: Temp Pulse Resp BP Pulse Ox 98.8 F 90 18 124/66 95 09/29/18 03:28 09/29/18 03:09/29/18 03:09/29/18 03:09/29/18 03:28 Interpretation: Normal - General General appearance: Appears well, Alert - HEENT Head: Normocephalic, Atraumatic Eyes: Normal Pupils: PERRL - Respiratory Respiratory status: No respiratory distress Chest status: Nontender Breath sounds: Wheezing Chest palpation: Normal - Cardiovascular Rhythm: Regular Heart sounds: Normal auscultation Murmur: No - Abdominal Inspection: Normal Distension: No distension Bowel sounds: Normal Tenderness: Nontender Organomegaly: No organomegaly - Back Back: Normal, Nontender - Extremities General upper extremity: Normal inspection, Nontender, Normal color, Normal ROM, Normal temperature General lower extremity: Normal inspection, Nontender, Normal color, Normal ROM, Normal temperature, Normal weight bearing. No: Esrdas's sign - Neurological Neuro grossly intact: Yes Cognition: Normal Orientation: AAOx4 [place] Coma Scale Eye Opening: Spontaneous [place] Coma Scale Verbal: Oriented Jasmin Coma Scale Motor: Obeys Commands Jas[place] Coma Scale Total: 15 Speech: Normal Motor strength normal: LUE, RUE, LLE, RLE Sensory: Normal - Psychological Associated symptoms: Normal affect, Normal mood - Skin Skin Temperature: Warm Skin Moisture: Dry Skin Color: Normal Course - Re-evaluation Re-evalutation: 09/29/18 06:08 Patient with history of asthma. Wheezing. Breathing treatment ordered. Will give him some steroids. Patient reluctant to take them but regardless I have explained to him how asthma is a inflammatory and bronchospastic condition. Patient remained stable. Oxygen saturations are good. Comfortable discharging after breathing treatment. - Vital Signs Vital signs: Temp Pulse Resp BP Pulse Ox 98.8 F 90 18 124/66 95 09/29/18 03:28 09/29/18 03:28 09/29/18 03:28 09/29/18 03:28 09/29/18 03:28 Discharge - Discharge Clinical Impression: Asthma attack Qualifiers: Asthma severity: moderate Asthma persistence: unspecified Qualified Code(s): J45.901 - Unspecified asthma with (acute) exacerbation Condition: Good Disposition: HOME, SELF-CARE Instructions: Asthma ([facility]) Additional Instructions: Continue to use her inhaler, steroids will help with the inflammatory process of asthma. In the event that symptoms are getting worse please return. Prescriptions: Prednisone [Deltasone 20 mg Tablet] 3 tab PO DAILY 5 Days #15 tablet Referrals: GIANCARLO CHANCE MD [Primary Care Provider] - Follow up as needed
== END 2018-09-29 06:42 | disposition home or self-care (01) ==
LOC: ER 03:12
DX: J45.901 Unspecified asthma with (acute) exacerbation (principal); F17.200 Nicotine dependence, unspecified, uncomplicated; Z90.49 Acquired absence of other specified parts of digestive tract
CPT/HCPCS: 94640; 99283

== ENCOUNTER 2018-10-01 09:03 | Emergency (ER) | payer MEDICAID ==
--- NOTE | 2018-10-01 10:07 | RADIOLOGY REPORT (SQ) ---
EXAM DESCRIPTION: CHEST 2 VIEWS COMPLETED DATE/TIME: 10/01/2018 9:57 am REASON FOR STUDY: pain COMPARISON: 2018. NUMBER OF VIEWS: Two view. TECHNIQUE: Frontal and lateral radiographic views of the chest acquired. LIMITATIONS: None. FINDINGS: LUNGS AND PLEURA: No opacities, masses or pneumothorax. No pleural effusion. Attenuated bl ood vessels and flattened anastacio-diaphragms. MEDIASTINUM AND HILAR STRUCTURES: No masses. No contour abnormalities. HEART AND VASCULAR STRUCTURES: Heart normal in size and contour. No evidence for failure. BONES: No acute findings. HARDWARE: None in the chest. OTHER: No other significant finding. IMPRESSION: COPD. NO ACUTE RADIOGRAPHIC FINDING IN THE CHEST. TECHNICAL DOCUMENTATION: JOB ID: [id number] [employer]- All Rights Reserved Reading location - IP/workstation name: [email or web address]
[2018-10-01 10:09] LABS: ABSOLUTE EOSINOPHILS # (AUTO) 0.8 10^3/uL (0.0-0.6); ABSOLUTE LYMPHOCYTES (AUTO) 0.9 10^3/uL (0.5-4.7); ABSOLUTE MONOCYTES (AUTO) 0.3 10^3/uL (0.1-1.4); ABSOLUTE NEUT (AUTO) 1.2 10^3/uL (1.7-8.2); BASOPHILS % (AUTO) 1.3 % (0-2); EOSINOPHILS % (AUTO) 24.8 % (0-6); HEMATOCRIT 42.6 % (37.9-51.0); LYMPHOCYTES % (AUTO) 27.5 % (13-45); MEAN CORPUSCULAR HEMOGLOBIN 26.9 pg (27.0-33.4); MEAN CORPUSCULAR HGB CONC 32.9 g/dL (32.0-36.0); MEAN CORPUSCULAR VOLUME 82 fl (80-97); MONOCYTES % (AUTO) 9.5 % (3-13); PLATELET COUNT 205 10^3/uL (150-450); RED BLOOD COUNT 5.22 10^6/uL (4.35-5.55); RED CELL DISTRIBUTION WIDTH 13.7 % (11.5-14.0); SEGMENTED NEUTROPHILS % (AUTO) 36.9 % (42-78); TOTAL CELLS COUNTED % (AUTO) 100 %; WHITE BLOOD COUNT 3.2 10^3/uL (4.0-10.5)
[2018-10-01 10:28] LABS: ALANINE AMINOTRANSFERASE 18 U/L (21-72); ALBUMIN 4.4 g/dL (3.5-5.0); ALKALINE PHOSPHATASE 77 U/L (38-126); ANION GAP 9 (5-19); ASPARTATE AMINO TRANSFERASE 25 U/L (17-59); BILIRUBIN,DIRECT 0.2 mg/dL (0.0-0.4); BILIRUBIN,TOTAL 1.3 mg/dL (0.2-1.3); BLOOD UREA NITROGEN 19 mg/dL (7-20); CALCIUM 9.4 mg/dL (8.4-10.2); CARBON DIOXIDE 31 mmol/L (22-30); CHLORIDE 105 mmol/L (98-107); CREATINE KINASE 110 U/L (55-170); GLUCOSE 76 mg/dL (75-110); POTASSIUM 4.7 mmol/L (3.6-5.0); SODIUM 144.7 mmol/L (137-145); TOTAL PROTEIN 7.1 g/dL (6.3-8.2)
[2018-10-01 10:40] LABS: CREATINE KINASE MB 1.38 ng/mL (<4.55)
[2018-10-01 10:42] LABS: TROPONIN I < 0.012 ng/mL
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
[2018-10-01 12:06] VITALS: BP 112/79
--- NOTE | 2018-10-01 20:17 | EKG REPORT ---
SEVERITY:- ABNORMAL ECG - SINUS RHYTHM ST ELEVATION SUGGESTS PERICARDITIS VS EARLY REPOLARIZATION CHANGES TALL T, CONSIDER METABOLIC/ISCHEMIC ABNRM : Confirmed by: Fernando Delarosa 01-Oct-2018 20:17:00
== END 2018-10-01 12:16 | disposition home or self-care (01) ==
LOC: ER 09:03
DX: R07.9 Chest pain, unspecified (principal)
CPT/HCPCS: 36415; 71046; 80053; 82550; 82553; 84484; 85025; 93005; 93010; 99284

== ENCOUNTER 2018-10-02 07:00 | Emergency (ER) | payer MEDICAID ==
[2018-10-02 07:35] VITALS: BP 99/64
--- NOTE | 2018-10-02 08:22 | ER Document Report ---
HPI - HPI Patient complains to provider of: cough Time Seen by Provider: 10/02/18 08:15 Pain Level: 2 Context: Patient is a well-known to the emergency department homeless 33-year-old male presents with cough and congestion. Patient states now that he is in the hospital, "and warm" he feels a lot better. In reviewing past charts patient was seen yesterday and 2 days prior. 2 days prior patient appears to have bronchospasms and was given prednisone prescription. Patient states he has not yet filled the prednisone prescription because he does not have any money. States he will fill it tomorrow because that is when he will get money. Patient has a full bottle of NyQuil next to him. Stated he took some this morning and it helped. I then asked the patient why he presented to the emergency department and he said "it was really cold outside." Past medical history: Asthma Medications: Albuterol Allergies: None - REPRODUCTIVE Reproductive: DENIES: : Past Medical History - General Information source: Patient - Social History Smoking Status: Former Smoker Family History: Reviewed & Not Pertinent Patient has suicidal ideation: No Patient has homicidal ideation: No Pulmonary Medical History: Reports: Hx Asthma Renal/ Medical History: Denies: Hx Peritoneal Dialysis GI Medical History: Reports: Hx Irritable Bowel - constipation Musculoskeletal Medical History: Reports Hx Arthritis, Reports Hx Musculoskeletal Trauma Psychiatric Medical History: Reports: Hx Anxiety, Hx Bipolar Disorder, Hx Depression, Hx Personality Disorder, Hx Schizophrenia Past Surgical History: Reports: Hx Abdominal Surgery, Hx Appendectomy, Hx Cholecystectomy, Hx Orthopedic Surgery - finger - Immunizations Immunizations up to date: Yes Hx Diphtheria, Pertussis, Tetanus Vaccination: Yes - 2012 Hx Pneumococcal Vaccination: 08/23/00 Vertical Provider Document - CONSTITUTIONAL Agree With Documented VS: Yes Notes: GENERAL: Alert, interacts well. No acute distress. HEAD: Normocephalic, atraumatic. EYES: Pupils equal, round, and reactive to light. Extraocular movements intact. ENT: Oral mucosa moist, tongue midline. Nares patent, no nasal septal hematoma, TM's intact, nonerythematous, nonbulging bilaterally. Pharynx within normal limits no palatal petechiae noted NECK: Full range of motion. Supple. Trachea midline. LUNGS: Clear to auscultation bilaterally, no wheezes, rales, or rhonchi. No respiratory distress. HEART: Regular rate and rhythm. No murmur ABDOMEN: Soft, non-tender. Non-distended. Bowel sounds present in all 4 quadrants. EXTREMITIES: Moves all 4 extremities spontaneously. No edema, normal radial and dorsalis pedis pulses bilaterally. No cyanosis. BACK: no cervical, thoracic, lumbar midline tenderness. No saddle anesthesia, normal distal neurovascular exam. NEUROLOGICAL: Alert and oriented x3. Normal speech. cranial nerves II through XII grossly intact. PSYCH: Normal affect, normal mood. SKIN: Warm, dry, normal turgor. No rashes or lesions noted. - INFECTION CONTROL TRAVEL OUTSIDE OF THE [place] IN LAST 30 DAYS: No Course - Re-evaluation Re-evalutation: 10/02/18 08:22 Patient's lung sounds are clear and equal in all garcia, he has no respiratory distress noted. He does have some nasal congestion noted. Patient states he overall feels better now that it is warm and he is inside a building. Patient then states he is supposed to have a place to live starting tomorrow. Patient is stable for discharge. He refuses a dose of steroids in the emergency department. - Vital Signs Vital signs: Temp Pulse Resp BP Pulse Ox 98.9 F 73 16 99/64 L 97 10/02/18 07:34 10/02/18 07:34 10/02/18 07:34 10/02/18 07:34 10/02/18 07:34 Discharge - Discharge Clinical Impression: Upper respiratory infection Qualifiers: URI type: unspecified viral URI Qualified Code(s): J06.9 - Acute upper respiratory infection, unspecified Condition: Stable Disposition: HOME, SELF-CARE Instructions: Viral Syndrome ([facility]), Upper Respiratory Illness ([facility]) Additional Instructions: As we discussed you have been seen and treated in the emergency room for an upper respiratory infection. You should continue taking [id number] cold medications and follow-up with the [facility]. Please return to the emergency room for any other concerning symptoms. Referrals: GIANCARLO CHANCE MD [Primary Care Provider] - Follow up as needed [facility] [Provider Group] - Follow up as needed
== END 2018-10-02 08:26 | disposition home or self-care (01) ==
LOC: ER 07:00
DX: J06.9 Acute upper respiratory infection, unspecified (principal); R05 Cough; T38.0X6A Underdosing of glucocorticoids and synthetic analogues, initial encounter; Z91.120 Patient's intentional underdosing of medication regimen due to financial hardship; Z91.14 Patient's other noncompliance with medication regimen; R09.81 Nasal congestion; J45.909 Unspecified asthma, uncomplicated; Z87.891 Personal history of nicotine dependence
CPT/HCPCS: 99283

== ENCOUNTER 2018-10-04 01:04 | Emergency (ER) | payer MEDICAID ==
[2018-10-04] MEDS ORDERED: IPRATROPIUM/ALBUTEROL 0.5-2.5 MG/3 ML AMPUL NEB ONE (01:29)
[2018-10-04] MEDS ORDERED: DEXAMETHASONE SOD PHOS INJ 10 MG/1 ML VIAL IM ONE (01:29)
--- NOTE | 2018-10-04 01:34 | ER Document Report ---
ED Respiratory Problem - General Chief Complaint: Asthma Exacerbation Stated Complaint: DIFFICULTY BREATHING Time Seen by Provider: 10/04/18 01:16 Primary Care Provider: GIANCARLO CHANCE MD [Primary Care Provider] - Follow up in 3-5 days Notes: Patient is a 33-year-old male that comes to the emergency department for chief complaint of shortness of breath. He has a history of asthma, EMS reports he was in the low 90s on initial eval treatment with excellent improvement to 100% on room air. Patient denies fever. He has had cough, congestion, cold symptoms for a week. He states he was prescribed prednisone but was unable to fill it. He states he does have an inhaler at home but no spacer. Patient also has schizophrenia. TRAVEL OUTSIDE OF THE [place] IN LAST 30 DAYS: No - Related Data Allergies/Adverse Reactions: No Known Allergies Allergy (Verified 10/02/18 07:21) Past Medical History - General Information source: Patient - Social History Smoking Status: Current Some Day Smoker Frequency of alcohol use: None Drug Abuse: None Lives with: Homeless Family History: Reviewed & Not Pertinent Patient has suicidal ideation: No Patient has homicidal ideation: No Pulmonary Medical History: Reports: Hx Asthma Renal/ Medical History: Denies: Hx Peritoneal Dialysis GI Medical History: Reports: Hx Irritable Bowel - constipation Musculoskeletal Medical History: Reports Hx Arthritis, Reports Hx Musculoskeletal Trauma Psychiatric Medical History: Reports: Hx Anxiety, Hx Bipolar Disorder, Hx Depression, Hx Personality Disorder, Hx Schizophrenia Past Surgical History: Reports: Hx Abdominal Surgery, Hx Appendectomy, Hx Cholecystectomy, Hx Orthopedic Surgery - finger - Immunizations Immunizations up to date: Yes Hx Diphtheria, Pertussis, Tetanus Vaccination: Yes - 2012 Hx Pneumococcal Vaccination: 08/23/00 Review of Systems - Review of Systems Constitutional: No symptoms reported EENT: See HPI Cardiovascular: No symptoms reported Respiratory: See HPI Gastrointestinal: No symptoms reported Genitourinary: No symptoms reported Male Genitourinary: No symptoms reported Musculoskeletal: No symptoms reported Skin: No symptoms reported Hematologic/Lymphatic: No symptoms reported Neurological/Psychological: No symptoms reported Physical Exam - Vital signs Vitals: Temp Resp BP Pulse Ox 98.8 F 24 H 140/76 H 99 10/04/18 01:09 10/04/18 01:09 10/04/18 01:09 10/04/18 01:09 - Notes Notes: GENERAL: Alert, interacts well. No acute distress. HEAD: Normocephalic, atraumatic. EYES: Pupils equal, round, and reactive to light. Extraocular movements intact. ENT: Oral mucosa moist, tongue midline. Oropharynx unremarkable. Airway patent. Congested nasal sinuses, no nasal septal hematoma, TM's intact. NECK: Full range of motion. Supple. Trachea midline. LUNGS: Expiratory wheezes, occasional cough. No tachypnea. No rales. No rhonchi. No signs of distress. HEART: Regular rate and rhythm. No murmur ABDOMEN: Soft, non-tender. Non-distended. Bowel sounds present in all 4 quadrants. GENITOURINARY: Deferred EXTREMITIES: Moves all 4 extremities spontaneously. No edema, normal radial and dorsalis pedis pulses bilaterally. No cyanosis. BACK: no cervical, thoracic, lumbar midline tenderness. No saddle anesthesia, normal distal neurovascular exam. NEUROLOGICAL: Alert and oriented x3. Normal speech. [cranial nerves II through XII grossly intact]. PSYCH: Normal affect, normal mood. SKIN: Warm, dry, normal turgor. No rashes or lesions noted. Course - Re-evaluation Re-evalutation: Patient with mild expiratory wheezes on initial evaluation, this resolved with additional DuoNeb treatments. Recommended dexamethasone to patient because of his frequent homeless situation, frequently staying with friends, and inconsistent ability to fill prescriptions including his prednisone which he still has not filled. Patient did agree to the dexamethasone. He was provided with a spacer, he does have an inhaler, he states he does not need any he does not have any hypoxia, his symptoms are resolved after treatments. Discussed expectations, follow-up, and return precautions. Patient states understanding and agreement with plan. - Vital Signs Vital signs: Temp Pulse Resp BP Pulse Ox 98.7 F 18 114/72 97 10/04/18 02:44 10/04/18 02:00 10/04/18 02:00 10/04/18 02:01 Discharge - Discharge Clinical Impression: Wheezing Upper respiratory infection Qualifiers: URI type: unspecified URI Qualified Code(s): J06.9 - Acute upper respiratory infection, unspecified Condition: Stable Disposition: HOME, SELF-CARE Additional Instructions: Your examination is consistent with an upper respiratory virus (bronchitis). You have been given dexamethasone to help you breathe better and recover from the virus. Use your inhaler, use the spacer. Come back if you are worse (if you are having trouble breathing, if you having a fever, or something else is not right). Referrals: GIANCARLO CHANCE MD [Primary Care Provider] - Follow up in 3-5 days
[2018-10-04 02:34] VITALS: BP 114/72
== END 2018-10-04 02:44 | disposition home or self-care (01) ==
LOC: ER 01:04
DX: J45.909 Unspecified asthma, uncomplicated (principal); J06.9 Acute upper respiratory infection, unspecified; T38.0X6A Underdosing of glucocorticoids and synthetic analogues, initial encounter; Z91.128 Patient's intentional underdosing of medication regimen for other reason; Z91.14 Patient's other noncompliance with medication regimen; R06.02 Shortness of breath; R05 Cough; R09.81 Nasal congestion; F17.200 Nicotine dependence, unspecified, uncomplicated; Z59.0 Homelessness
CPT/HCPCS: 94640; 99285; 96372; J1100; J7620

== ENCOUNTER 2018-10-06 07:03 | Emergency (ER) | payer MEDICAID ==
[2018-10-06 07:12] VITALS: BP 121/64
[2018-10-06] MEDS ORDERED: IPRATROPIUM/ALBUTEROL 0.5-2.5 MG/3 ML AMPUL NEB ONE (07:21)
--- NOTE | 2018-10-06 07:30 | ER Document Report ---
ED General - General Chief Complaint: Shortness Of Breath Stated Complaint: DIFFICULTY BREATHING Time Seen by Provider: 10/06/18 07:14 Primary Care Provider: GIANCARLO CHANCE MD [Primary Care Provider] - Follow up in 3-5 days TRAVEL OUTSIDE OF THE [place] IN LAST 30 DAYS: No - HPI Patient complains to provider of: Shortness of breath Notes: Patient coming in for evaluation of shortness of breath. Patient is well-known to this provider upon entrance to examination patient is washing his hands very aggressively stating that he has ink on his fingers and cannot remove the ink. Patient otherwise states that his caregiver brought to the hospital is that she thought he may need a breathing treatment states he wakes up in the morning and has a cough over the last few days patient otherwise states that he has been compliant with his medication regiment of using the inhaler and taking his antibiotic days currently on azithromycin. Patient otherwise looks to be in no obvious distress and baseline for the patient - Related Data Allergies/Adverse Reactions: No Known Allergies Allergy (Verified 10/06/18 07:04) Past Medical History - Social History Smoking Status: Unknown if Ever Smoked Family History: Reviewed & Not Pertinent Pulmonary Medical History: Reports: Hx Asthma Renal/ Medical History: Denies: Hx Peritoneal Dialysis GI Medical History: Reports: Hx Irritable Bowel - constipation Musculoskeletal Medical History: Reports Hx Arthritis, Reports Hx Musculoskeletal Trauma Psychiatric Medical History: Reports: Hx Anxiety, Hx Bipolar Disorder, Hx Depression, Hx Personality Disorder, Hx Schizophrenia Past Surgical History: Reports: Hx Abdominal Surgery, Hx Appendectomy, Hx Cholecystectomy, Hx Orthopedic Surgery - finger - Immunizations Immunizations up to date: Yes Hx Diphtheria, Pertussis, Tetanus Vaccination: Yes - 2012 Hx Pneumococcal Vaccination: 08/23/00 Review of Systems - Review of Systems Constitutional: No symptoms reported EENT: No symptoms reported Cardiovascular: No symptoms reported Respiratory: Short of breath, Wheezing Gastrointestinal: No symptoms reported Genitourinary: No symptoms reported Male Genitourinary: No symptoms reported Musculoskeletal: No symptoms reported Skin: No symptoms reported Hematologic/Lymphatic: No symptoms reported Neurological/Psychological: No symptoms reported -: Yes All other systems reviewed and negative Physical Exam - Vital signs Vitals: Temp Pulse Resp BP Pulse Ox 98.6 F 77 12 121/64 93 10/06/18 07:10 10/06/18 07:10 10/06/18 07:10 10/06/18 07:10 10/06/18 07:10 Interpretation: Normal - General General appearance: Appears well, Alert - HEENT Head: Normocephalic, Atraumatic Eyes: Normal Pupils: PERRL - Respiratory Respiratory status: No respiratory distress Chest status: Nontender Breath sounds: Wheezing Chest palpation: Normal - Cardiovascular Rhythm: Regular Heart sounds: Normal auscultation Murmur: No - Abdominal Inspection: Normal Distension: No distension Bowel sounds: Normal Tenderness: Nontender Organomegaly: No organomegaly - Back Back: Normal, Nontender - Extremities General upper extremity: Normal inspection, Nontender, Normal color, Normal ROM, Normal temperature General lower extremity: Normal inspection, Nontender, Normal color, Normal ROM, Normal temperature, Normal weight bearing. No: Esdras's sign - Neurological Neuro grossly intact: Yes Cognition: Normal Orientation: AAOx4 Coward Coma Scale Eye Opening: Spontaneous Coward Coma Scale Verbal: Oriented Jasmin Coma Scale Motor: Obeys Commands Jasmin Coma Scale Total: 15 Speech: Normal Motor strength normal: LUE, RUE, LLE, RLE Sensory: Normal - Psychological Associated symptoms: Normal affect, Normal mood - Skin Skin Temperature: Warm Skin Moisture: Dry Skin Color: Normal Course - Re-evaluation Re-evalutation: 10/06/18 14:00 Improvement of the wheezing upon reevaluation. Patient will be discharged to follow-up with primary care physician. - Vital Signs Vital signs: Temp Pulse Resp BP Pulse Ox 98.6 F 77 18 121/64 95 10/06/18 07:10 10/06/18 07:10 10/06/18 08:19 10/06/18 07:10 10/06/18 08:19 Discharge - Discharge Clinical Impression: Wheezing Condition: Good Disposition: HOME, SELF-CARE Instructions: Asthma ([facility]) Additional Instructions: Please continue with the inhaler that we gave you upon your last visit 2 puffs every 4 hours as needed for shortness of breath. Please continue with the antibiotics as prescribed at your last visit 2 days ago you are given a long- acting steroid there is no need to repeat this at this time. Follow-up with your primary care physician. Do not smoke To help out with your cough I would recommend [id number] cough drops or the use of natural honey and your favorite drink. Referrals: OGIANCARLO ROJAS MD [Primary Care Provider] - Follow up in 3-5 days
== END 2018-10-06 08:18 | disposition home or self-care (01) ==
LOC: ER 07:03
DX: J45.909 Unspecified asthma, uncomplicated (principal); Z79.899 Other long term (current) drug therapy; R06.02 Shortness of breath; R05 Cough
CPT/HCPCS: 94640; 99284; J7620

== ENCOUNTER 2018-10-09 06:05 | Emergency (ER) | payer MEDICAID ==
[2018-10-09] MEDS ORDERED: IPRATROPIUM/ALBUTEROL 0.5-2.5 MG/3 ML AMPUL NEB ONE (06:20)
[2018-10-09] MEDS ORDERED: METHYLPREDNISOLONE INJ 125 MG/2 ML SDV IV ONE (06:38)
[2018-10-09] MEDS ORDERED: MAGNESIUM SULFATE/D5W 1 GM/100 ML RTUPB IV ONE (06:38)
[2018-10-09] MEDS ORDERED: NORMAL SALINE 1000 ML 1,000 ML IV ONE (06:44)
[2018-10-09 06:50] LABS: ABSOLUTE BASOPHILS # (AUTO) 0.1 10^3/uL (0.0-0.2); ABSOLUTE EOSINOPHILS # (AUTO) 1.1 10^3/uL (0.0-0.6); ABSOLUTE MONOCYTES (AUTO) 0.3 10^3/uL (0.1-1.4); ABSOLUTE NEUT (AUTO) 1.1 10^3/uL (1.7-8.2); BASOPHILS % (AUTO) 1.3 % (0-2); EOSINOPHILS % (AUTO) 24.6 % (0-6); HEMATOCRIT 47.3 % (37.9-51.0); LYMPHOCYTES % (AUTO) 43.7 % (13-45); MEAN CORPUSCULAR HEMOGLOBIN 27.1 pg (27.0-33.4); MEAN CORPUSCULAR HGB CONC 33.8 g/dL (32.0-36.0); MEAN CORPUSCULAR VOLUME 80 fl (80-97); PLATELET COUNT 270 10^3/uL (150-450); RED BLOOD COUNT 5.89 10^6/uL (4.35-5.55); RED CELL DISTRIBUTION WIDTH 13.6 % (11.5-14.0); SEGMENTED NEUTROPHILS % (AUTO) 23.4 % (42-78); TOTAL CELLS COUNTED % (AUTO) 100 %; WHITE BLOOD COUNT 4.6 10^3/uL (4.0-10.5)
[2018-10-09 07:04] LABS: ANION GAP 10 (5-19); BLOOD UREA NITROGEN 15 mg/dL (7-20); CALCIUM 9.9 mg/dL (8.4-10.2); CARBON DIOXIDE 30 mmol/L (22-30); CHLORIDE 103 mmol/L (98-107); GLUCOSE 93 mg/dL (75-110); POTASSIUM 4.5 mmol/L (3.6-5.0); SODIUM 143.1 mmol/L (137-145)
--- NOTE | 2018-10-09 07:33 | RADIOLOGY REPORT (SQ) ---
EXAM DESCRIPTION: XR CHEST 2 VIEWS COMPLETED DATE/TME: 10/09/2018 06:21 CLINICAL HISTORY: 33 years, Male, sob COMPARISON: 10/01/2018 NUMBER OF VIEWS: Two TECHNIQUE: Two views of the chest LIMITATIONS: None. FINDINGS: Lungs are well-inflated and clear. The heart is normal in size. There is no pneumothorax or pleural effusion. The bones are unremarkable. IMPRESSION: No acute cardiopulmonary abnormality copyright 2010 [employer]- All Rights Reserved
[2018-10-09] MEDS ORDERED: ALBUTEROL SULFATE 0.083% NEB 2.5 MG/3 ML AMPUL NEB ONE (07:52)
[2018-10-09] MEDS ORDERED: LIDOCAINE 1% INJ-PF (10 MG/ML) 30 ML SDV NEB ONE (09:42)
--- NOTE | 2018-10-09 12:35 | ER Document Report ---
ED General - General Chief Complaint: Shortness Of Breath Stated Complaint: COUGH Time Seen by Provider: 10/09/18 06:20 Primary Care Provider: GIANCARLO CHANCE MD [Primary Care Provider] - Follow up as needed TRAVEL OUTSIDE OF THE [place] IN LAST 30 DAYS: No - HPI Patient complains to provider of: Shortness of breath Notes: Patient coming in for evaluation of shortness of breath. Patient has history of colitis pneumonia with a shot of Decadron and azithromycin. Patient is well- known to this provider. Patient upon my evaluation looks to be no obvious distress. Patient states compliance with his inhaler however has a history of noncompliance. Patient does have some audible wheezes. Patient otherwise looks to be in no overt respiratory distress. Denies any fevers chills nausea vomiting diarrhea states compliance with taking his antibiotic. Is - Related Data Allergies/Adverse Reactions: No Known Allergies Allergy (Verified 10/06/18 07:04) Past Medical History - Social History Smoking Status: Never Smoker Chew tobacco use (# tins/day): No Drug Abuse: None Family History: Reviewed & Not Pertinent Patient has suicidal ideation: No Patient has homicidal ideation: No Pulmonary Medical History: Reports: Hx Asthma Renal/ Medical History: Denies: Hx Peritoneal Dialysis GI Medical History: Reports: Hx Irritable Bowel - constipation Musculoskeletal Medical History: Reports Hx Arthritis, Reports Hx Musculoskeletal Trauma Psychiatric Medical History: Reports: Hx Anxiety, Hx Bipolar Disorder, Hx Depression, Hx Personality Disorder, Hx Schizophrenia Past Surgical History: Reports: Hx Abdominal Surgery, Hx Appendectomy, Hx Cholecystectomy, Hx Orthopedic Surgery - finger - Immunizations Immunizations up to date: Yes Hx Diphtheria, Pertussis, Tetanus Vaccination: Yes - 2012 Hx Pneumococcal Vaccination: 08/23/00 Review of Systems - Review of Systems Constitutional: No symptoms reported EENT: No symptoms reported Cardiovascular: No symptoms reported Respiratory: Short of breath, Wheezing Gastrointestinal: No symptoms reported Genitourinary: No symptoms reported Male Genitourinary: No symptoms reported Musculoskeletal: No symptoms reported Skin: No symptoms reported Hematologic/Lymphatic: No symptoms reported Neurological/Psychological: No symptoms reported -: Yes All other systems reviewed and negative Physical Exam - Vital signs Vitals: Temp Pulse Resp BP Pulse Ox 98.9 F 117 H 25 H 109/82 93 10/09/18 06:10 10/09/18 06:10 10/09/18 06:10 10/09/18 06:10 10/09/18 06:10 Interpretation: Normal - General General appearance: Appears well, Alert - HEENT Head: Normocephalic, Atraumatic Eyes: Normal Pupils: PERRL - Respiratory Respiratory status: No respiratory distress Chest status: Nontender Breath sounds: Normal Chest palpation: Normal - Cardiovascular Rhythm: Regular Heart sounds: Normal auscultation Murmur: No - Abdominal Inspection: Normal Distension: No distension Bowel sounds: Normal Tenderness: Nontender Organomegaly: No organomegaly - Back Back: Normal, Nontender - Extremities General upper extremity: Normal inspection, Nontender, Normal color, Normal ROM, Normal temperature General lower extremity: Normal inspection, Nontender, Normal color, Normal ROM, Normal temperature, Normal weight bearing. No: Esdras's sign - Neurological Neuro grossly intact: Yes Cognition: Normal Orientation: AAOx4 Jasmin Coma Scale Eye Opening: Spontaneous Newcomb Coma Scale Verbal: Oriented Jasmin Coma Scale Motor: Obeys Commands Newcomb Coma Scale Total: 15 Speech: Normal Motor strength normal: LUE, RUE, LLE, RLE Sensory: Normal - Psychological Associated symptoms: Normal affect, Normal mood - Skin Skin Temperature: Warm Skin Moisture: Dry Skin Color: Normal Course - Re-evaluation Re-evalutation: 10/09/18 15:41 Patient was given multiple nebulizer treatments here and was observed for quite some time is that this is now the second visit the patient has been seen by this provider. Patient able to tolerate julieta yissel and tolerate a meal. Vital signs continue to improve after nebulizer treatment. More likely I suspect that patient is noncompliant again with his bronchodilator therapy more likely has underlying asthma exacerbation will hold off any steroids at this time the patient's lungs are clear on reevaluation will discharge patient back home - Vital Signs Vital signs: Temp Pulse Resp BP Pulse Ox 98.1 F 117 H 16 141/77 H 97 10/09/18 12:35 10/09/18 06:10 10/09/18 12:35 10/09/18 12:35 10/09/18 12:35 - Laboratory Result Diagrams: 10/09/18 06:35 10/09/18 06:35 Laboratory results interpreted by me: 10/09/18 06:35 RBC 5.89 H Seg Neutrophils % 23.4 L Eosinophils % 24.6 H Absolute Neutrophils 1.1 L Absolute Eosinophils 1.1 H Discharge - Discharge Clinical Impression: Asthma Qualifiers: Asthma severity: unspecified severity Asthma persistence: unspecified Asthma complication type: uncomplicated Qualified Code(s): J45.909 - Unspecified asthma, uncomplicated Condition: Good Disposition: HOME, SELF-CARE Instructions: Asthma ([facility]) Additional Instructions: Your chest x-ray today does not show any signs of pneumonia your laboratory studies not show any critical pathology. Please continue to use your inhaler that we gave you here in the ER 2 puffs every 2-4 hours. Return for worsening symptoms Referrals: GIANCARLO CHANCE MD [Primary Care Provider] - Follow up as needed
[2018-10-09 12:38] VITALS: BP 141/77
== END 2018-10-09 12:38 | disposition home or self-care (01) ==
LOC: ER 06:05
DX: J45.909 Unspecified asthma, uncomplicated (principal); R06.02 Shortness of breath; R05 Cough
CPT/HCPCS: 94640 ×2; 99284; 96375; 96365; 36415; 85025; 80048; 71046; J3490; J2930; J3475; J7030; J7620

== ENCOUNTER 2018-10-14 21:40 | Emergency (ER) | payer MEDICAID ==
[2018-10-14] MEDS ORDERED: IPRATROPIUM/ALBUTEROL 0.5-2.5 MG/3 ML AMPUL NEB ONE (23:33)
--- NOTE | 2018-10-15 00:40 | ER Document Report ---
ED General - General Chief Complaint: Cough Stated Complaint: COUGH Time Seen by Provider: 10/14/18 23:31 Primary Care Provider: GIANCARLO CHANCE MD [Primary Care Provider] - Follow up as needed Notes: Patient is a 33-year-old male with a past medical history of asthma, homeless, very frequent visits to the emergency room for coughing states that he came in after coughing. States that he thought to be a bad coughing episode but it turned out to be okay. Denies any current symptoms. Has not been treating his symptoms with anything at home. Nothing seems to improve his symptoms on present. Has not seen his primary doctor regarding today's concerns. No fever or constitutional symptoms. TRAVEL OUTSIDE OF THE [place] IN LAST 30 DAYS: No - Related Data Allergies/Adverse Reactions: No Known Allergies Allergy (Verified 10/06/18 07:04) Past Medical History - General Information source: Patient - Social History Smoking Status: Never Smoker Frequency of alcohol use: None Drug Abuse: None Lives with: Homeless Family History: Reviewed & Not Pertinent Pulmonary Medical History: Reports: Hx Asthma Renal/ Medical History: Denies: Hx Peritoneal Dialysis GI Medical History: Reports: Hx Irritable Bowel - constipation Musculoskeletal Medical History: Reports Hx Arthritis, Reports Hx Musculoskeletal Trauma Psychiatric Medical History: Reports: Hx Anxiety, Hx Bipolar Disorder, Hx Depression, Hx Personality Disorder, Hx Schizophrenia Past Surgical History: Reports: Hx Abdominal Surgery, Hx Appendectomy, Hx Cholecystectomy, Hx Orthopedic Surgery - finger - Immunizations Immunizations up to date: Yes Hx Diphtheria, Pertussis, Tetanus Vaccination: Yes - 2012 Hx Pneumococcal Vaccination: 08/23/00 Review of Systems - Review of Systems Notes: Constitutional: Negative for fever. HENT: Negative for sore throat. Eyes: Negative for visual changes. Cardiovascular: Negative for chest pain. Respiratory: Negative for shortness of breath. Positive for cough and Gastrointestinal: Negative for abdominal pain, vomiting or diarrhea. Genitourinary: Negative for dysuria. Musculoskeletal: Negative for back pain. Skin: Negative for rash. Neurological: Negative for headaches, weakness or numbness. 10 point ROS negative except as marked above and in HPI. Physical Exam - Vital signs Vitals: Temp Pulse BP Pulse Ox 98.7 F 69 121/79 98 10/14/18 22:04 10/14/18 22:04 10/14/18 22:04 10/14/18 22:04 Interpretation: Normal Notes: PHYSICAL EXAMINATION: GENERAL: Well-appearing, well-nourished and in no acute distress. HEAD: Atraumatic, normocephalic. EYES: Pupils equal round and reactive to light, extraocular movements intact, sclera anicteric, conjunctiva are normal. ENT: nares patent, oropharynx clear without exudates. Moist mucous membranes. NECK: Normal range of motion, supple without lymphadenopathy LUNGS: Breath sounds clear to auscultation bilaterally and equal. No wheezes rales or rhonchi. HEART: Regular rate and rhythm without murmurs ABDOMEN: Soft, nontender, normoactive bowel sounds. No guarding, no rebound. No masses appreciated. EXTREMITIES: Normal range of motion, no pitting or edema. No cyanosis. NEUROLOGICAL: No focal neurological deficits. Moves all extremities spontaneously and on command. PSYCH: Normal mood, normal affect. SKIN: Warm, Dry, normal turgor, no rashes or lesions noted. Course - Re-evaluation Re-evalutation: 10/15/18 00:40 Patient presents with complaints of cough. Frequent visits to the emergency department for the same. Patient is overall well in appearance without tachypnea, hypoxemia, tachycardia, or difficulty with ambulation. Breath sounds are clear bilaterally. No fever. No indication for labs or imaging. Patient has been given instructions to continue his albuterol inhalers at home. At this time will discharge with return precautions and follow-up recommendations. Verbal discharge instructions given a the bedside and opportunity for questions given. Medication warnings reviewed. Patient is in agreement with this plan and has verbalized understanding of return precautions and the need for primary care follow-up in the next 24-72 hours. 10/15/18 04:17 - Vital Signs Vital signs: Temp Pulse Resp BP Pulse Ox 98.3 F 61 15 107/70 100 10/15/18 01:23 10/15/18 01:23 10/15/18 01:23 10/15/18 01:23 10/15/18 01:23 Discharge - Discharge Clinical Impression: Cough Asthma Qualifiers: Asthma severity: mild Asthma persistence: persistent Asthma complication type: uncomplicated Qualified Code(s): J45.30 - Mild persistent asthma, uncomplicated Condition: Good Disposition: HOME, SELF-CARE Additional Instructions: You were seen for symptoms most consistent with bronchitis. This can take up to 12 weeks to fully resolve. This is generally due to a viral infection. Please follow-up with your primary doctor in the next 2-3 days. Return if you develop worsening cough, vomiting, fever >100.4, pass out, begin coughing blood, or have any other symptoms that are concerning to you. Please use the medications prescribed today as directed. Referrals: GIANCARLO CHANCE MD [Primary Care Provider] - Follow up as needed
[2018-10-15 01:23] VITALS: BP 107/70
== END 2018-10-15 02:09 | disposition home or self-care (01) ==
LOC: ER 21:40
DX: J45.30 Mild persistent asthma, uncomplicated (principal); Z59.0 Homelessness; Z90.49 Acquired absence of other specified parts of digestive tract
CPT/HCPCS: 94640; 99283; J7620

== ENCOUNTER 2018-10-19 05:18 | Emergency (ER) | payer MEDICAID ==
[2018-10-19] MEDS ORDERED: PREDNISONE 20 MG TABLET PO ONE (06:18)
[2018-10-19] MEDS ORDERED: ALBUTEROL SULFATE HFA (90 MCG/PUFF) 8 GM MDI (1 MDI/ER DISP) IH ONE (06:18)
[2018-10-19 07:05] VITALS: BP 128/76
--- NOTE | 2018-10-21 08:40 | ER Document Report ---
Entered by ALAYNA POOL SCRIBE 10/19/18 0621 Acting as scribe for:LENIN SOLIS MD ED Respiratory Problem - General Chief Complaint: Cough Stated Complaint: COUGH Time Seen by Provider: 10/19/18 06:00 Primary Care Provider: GIANCARLO CHANCE MD [Primary Care Provider] - Follow up as needed Mode of Arrival: Ambulatory Information source: Patient Notes: Patient is a 33 year old male with asthma who frequents this emergency department presents to the emergency department via EMS complaining of shortness of breath onset today. According to EMS patient had an oxygen saturation of 89% on arrival and they proceeded to administer 2 albuterol treatments. Patient states he is currently feeling a lot better after the albuterol treatments. TRAVEL OUTSIDE OF THE [place] IN LAST 30 DAYS: No - Related Data Allergies/Adverse Reactions: No Known Allergies Allergy (Verified 10/06/18 07:04) Past Medical History - General Information source: Patient - Social History Smoking Status: Former Smoker Cigarette use (# per day): No Chew tobacco use (# tins/day): No Smoking Education Provided: No Frequency of alcohol use: None Family History: Reviewed & Not Pertinent Patient has suicidal ideation: No Patient has homicidal ideation: No Pulmonary Medical History: Reports: Hx Asthma GI Medical History: Reports: Hx Irritable Bowel - constipation Musculoskeletal Medical History: Reports Hx Arthritis, Reports Hx Musculoskeletal Trauma Psychiatric Medical History: Reports: Hx Anxiety, Hx Bipolar Disorder, Hx Depression, Hx Personality Disorder, Hx Schizophrenia Past Surgical History: Reports: Hx Abdominal Surgery, Hx Appendectomy, Hx Cholecystectomy, Hx Orthopedic Surgery - finger - Immunizations Immunizations up to date: Yes Hx Diphtheria, Pertussis, Tetanus Vaccination: Yes - 2012 Hx Pneumococcal Vaccination: 08/23/00 Review of Systems - Review of Systems Constitutional: No symptoms reported EENT: No symptoms reported Cardiovascular: No symptoms reported Respiratory: See HPI, Cough, Short of breath Gastrointestinal: No symptoms reported Genitourinary: No symptoms reported Male Genitourinary: No symptoms reported Musculoskeletal: No symptoms reported Skin: No symptoms reported Hematologic/Lymphatic: No symptoms reported Neurological/Psychological: No symptoms reported -: Yes All other systems reviewed and negative Physical Exam - Vital signs Vitals: Temp Pulse Resp BP Pulse Ox 97.9 F 71 18 130/70 H 99 10/19/18 05:25 10/19/18 05:25 10/19/18 05:25 10/19/18 05:25 10/19/18 05:25 - Notes Notes: GENERAL: Alert, interacts well. No acute distress. HEAD: Normocephalic, atraumatic. EYES: Pupils equal, round, and reactive to light. Extraocular movements intact. ENT: Oral mucosa moist, tongue midline. NECK: Full range of motion. Supple. Trachea midline. LUNGS:Wheezes and rhonchi. No respiratory distress. HEART: Regular rate and rhythm. No murmurs, gallops, or rubs. ABDOMEN: Soft, non-tender. Non-distended. Bowel sounds present in all 4 quadrants. No guarding, rigidity, or rebound. EXTREMITIES: Moves all 4 extremities spontaneously. NEUROLOGICAL: Alert and oriented x3. Normal speech. PSYCH: Normal affect, normal mood. SKIN: Warm, dry, normal turgor. No rashes or lesions noted. Course - Vital Signs Vital signs: Temp Pulse Resp BP Pulse Ox 98.1 F 75 18 128/76 H 93 10/19/18 06:59 10/19/18 05:56 10/19/18 06:59 10/19/18 06:59 10/19/18 07:00 Discharge - Discharge Clinical Impression: Bronchitis, Cough, Has run out of medications Asthma exacerbation Qualifiers: Asthma severity: mild Asthma persistence: unspecified Qualified Code(s): J45.901 - Unspecified asthma with (acute) exacerbation Disposition: HOME, SELF-CARE I personally performed the services described in the documentation, reviewed and edited the documentation which was dictated to the scribe in my presence, and it accurately records my words and actions.
== END 2018-10-19 07:05 | disposition home or self-care (01) ==
LOC: ER 05:18
DX: J45.901 Unspecified asthma with (acute) exacerbation (principal); R06.02 Shortness of breath; Z87.891 Personal history of nicotine dependence; R05 Cough
CPT/HCPCS: J7512; J3490

== ENCOUNTER 2018-10-25 06:57 | Emergency (ER) | payer MEDICAID ==
[2018-10-25] MEDS ORDERED: IPRATROPIUM/ALBUTEROL 0.5-2.5 MG/3 ML AMPUL NEB ONE (07:03)
[2018-10-25] MEDS ORDERED: METHYLPREDNISOLONE INJ 125 MG/2 ML SDV IV ONE (07:03)
--- NOTE | 2018-10-25 07:09 | ER Document Report ---
ED Respiratory Problem - General Stated Complaint: COUGH Time Seen by Provider: 10/25/18 07:01 Primary Care Provider: GIANCARLO CHANCE MD [Primary Care Provider] - Follow up as needed Notes: 33-year-old male with history of asthma presents to the ER with cough congestion difficulty breathing. The patient is homeless. He was at a hotel last night according to EMS. Patient denies any nausea vomiting denies chest pain positive shortness of breath more so with coughing. Denies abdominal pain. Denies rashes. Denies calf pain leg swelling. Denies black bloody or tarry stools. States his shortness of breath is severe and he is been coughing up green yellow sputum. TRAVEL OUTSIDE OF THE [place] IN LAST 30 DAYS: No - Related Data Allergies/Adverse Reactions: No Known Allergies Allergy (Verified 10/06/18 07:04) Past Medical History - Social History Smoking Status: Current Every Day Smoker Family History: Reviewed & Not Pertinent Pulmonary Medical History: Reports: Hx Asthma Renal/ Medical History: Denies: Hx Peritoneal Dialysis GI Medical History: Reports: Hx Irritable Bowel - constipation Musculoskeletal Medical History: Reports Hx Arthritis, Reports Hx Musculo skeletal Trauma Psychiatric Medical History: Reports: Hx Anxiety, Hx Bipolar Disorder, Hx Depression, Hx Personality Disorder, Hx Schizophrenia Past Surgical History: Reports: Hx Abdominal Surgery, Hx Appendectomy, Hx Cholecystectomy, Hx Orthopedic Surgery - finger - Immunizations Immunizations up to date: Yes Hx Diphtheria, Pertussis, Tetanus Vaccination: Yes - 2012 Hx Pneumococcal Vaccination: 08/23/00 Review of Systems - Review of Systems Constitutional: denies: Chills, Fever Cardiovascular: denies: Chest pain, Dyspnea Respiratory: Cough, Short of breath, Wheezing Skin: denies: Rash Neurological/Psychological: denies: Headaches -: Yes All other systems reviewed and negative Physical Exam - Vital signs Vitals: Temp Pulse Resp BP Pulse Ox 98.3 F 81 20 110/71 92 10/25/18 07:08 10/25/18 07:08 10/25/18 07:08 10/25/18 07:08 10/25/18 07:08 - Notes Notes: GENERAL_APPEARANCE: well_nourished, alert, cooperative, coughing VITALS: reviewed, see vital signs table. HEAD: no_swelling\tenderness on the head. EYES: PERRL, EOMI, conjunctiva_clear. NOSE: Clear_nasal_discharge. Turbinate inflammation MOUTH: (-)decreased moisture. THROAT: no_tonsilar_inflammation, no_airway_obstruction. no_lymphadenopathy NECK: supple, no_neck_tenderness, (-)thyromegaly. BACK: no_back_tenderness. CHEST_WALL: no_chest_tenderness. LUNGS: Scattered_wheezing, no_rales, no_rhonchi, mild accessory muscle use, fair air exchange bilateral. HEART: normal_rate, normal_rhythm, normal_S1, normal_S2, (-)S3, (-)S4, no_murmur, no_rub. ABDOMEN: normal_BS, soft, no_abd_tenderness, (-)guarding, (-)rebound, no_organomegaly, no_abd_masses. EXTREMITIES: good pulses in all_extremities, no_swelling\tenderness in the extremities, no_edema. SKIN: warm, dry, good_color, no_rash. MENTAL_STATUS: speech_clear, oriented_X_3, normal_affect, responds_ap propriately to questions. Course - Re-evaluation Re-evalutation: 10/25/18 07:08 33-year-old male with history of asthma presents with cough productive and difficulty breathing. We will give the patient aerosol treatments steroids. We will get a chest x-ray to assess for pneumonia. Patient is a very frequent visitor here to the ER. He has had many visits in the past. He has not had bled for at least 2 weeks old draw a set of blood and a chest x-ray. My suspicion is low for PE. He is workup extensively in the past. 10/25/18 10:48 Patient is much improved after aerosol treatments and steroids. Wheezing has been alleviated. Course of prednisone. See no indication for antibiotics at this time. My suspicion is low for PE. - Vital Signs Vital signs: Temp Pulse Resp BP Pulse Ox 98.3 F 81 20 110/71 92 10/25/18 07:08 10/25/18 07:08 10/25/18 07:08 10/25/18 07:08 10/25/18 07:08 - Laboratory Result Diagrams: 10/25/18 07:40 10/25/18 07:40 Laboratory results interpreted by me: 10/25/18 07:40 WBC 3.1 L Hgb 13.1 L RDW 14.4 H Seg Neuts % (Manual) 36 L Eosinophils % (Manual) 15 H Abs Neuts (Manual) 1.1 L Discharge - Discharge Clinical Impression: Asthma exacerbation Qualifiers: Asthma severity: moderate Asthma persistence: unspecified Qualified Code(s): J45.901 - Unspecified asthma with (acute) exacerbation Condition: Good Disposition: HOME, SELF-CARE Instructions: Asthma ([facility]) Prescriptions: Prednisone [Deltasone 10 mg Tablet] 10 mg PO ASDIR PRN #21 tablet PRN Reason: Referrals: GIANCARLO CHANCE MD [Primary Care Provider] - Follow up as needed
--- NOTE | 2018-10-25 07:37 | RADIOLOGY REPORT (SQ) ---
EXAM DESCRIPTION: XR CHEST 1 VIEW COMPLETED DATE/TME: 10/25/2018 07:04 CLINICAL HISTORY: SOB COMPARISON: 10/09/2018 FINDINGS: Single frontal view of the chest. The cardiomediastinal silhouette has normal size and contour. No consolidation, pneumothorax, or pleural effusion. No acute osseous abnormality. Upper abdominal soft tissues are unremarkable. IMPRESSION: 1. No acute pulmonary process identified.
[2018-10-25 07:55] LABS: HEMATOCRIT 38.3 % (37.9-51.0); HEMOGLOBIN 13.1 g/dL (13.5-17.0); MEAN CORPUSCULAR HEMOGLOBIN 27.4 pg (27.0-33.4); MEAN CORPUSCULAR HGB CONC 34.1 g/dL (32.0-36.0); MEAN CORPUSCULAR VOLUME 80 fl (80-97); PLATELET COUNT 198 10^3/uL (150-450); RED BLOOD COUNT 4.77 10^6/uL (4.35-5.55); RED CELL DISTRIBUTION WIDTH 14.4 % (11.5-14.0); WHITE BLOOD COUNT 3.1 10^3/uL (4.0-10.5)
[2018-10-25 08:04] LABS: ANION GAP 8 (5-19); BLOOD UREA NITROGEN 12 mg/dL (7-20); CARBON DIOXIDE 29 mmol/L (22-30); CHLORIDE 107 mmol/L (98-107); GLUCOSE 85 mg/dL (75-110); SODIUM 143.7 mmol/L (137-145)
[2018-10-25 08:19] LABS: ABSOLUTE LYMPHOCYTES# (MANUAL) 1.4 10^3/uL (0.5-4.7); ABSOLUTE MONOCYTES # (MANUAL) 0.1 10^3/uL (0.1-1.4); ABSOLUTE NEUTROPHILS# (MANUAL) 1.1 10^3/uL (1.7-8.2); BASOPHILS % (MANUAL) 2 % (0-2); EOSINOPHILS % (MANUAL) 15 % (0-6); LYMPHOCYTES % (MANUAL) 35 % (13-45); MONOCYTES % (MANUAL) 3 % (3-13); SEGMENTED NEUTROPHILS % (MAN) 36 % (42-78); TOTAL CELLS COUNTED 100
[2018-10-25 08:20] LABS: ANISOCYTOSIS SLIGHT; PLATELET COMMENT ADEQUATE
[2018-10-25] MEDS ORDERED: ALBUTEROL SULFATE HFA (90 MCG/PUFF) 8 GM MDI (1 MDI/ER DISP) IH STA (10:55)
[2018-10-25 11:07] VITALS: BP 117/63
== END 2018-10-25 11:07 | disposition home or self-care (01) ==
LOC: ER 06:57
DX: J45.901 Unspecified asthma with (acute) exacerbation (principal); R05 Cough; R06.02 Shortness of breath; Z59.0 Homelessness; F17.200 Nicotine dependence, unspecified, uncomplicated
CPT/HCPCS: 94640; 99284; 96374; 36415; 85025; 80048; 71045; J2930; J3490; J7620

== ENCOUNTER 2018-10-29 20:25 | Emergency (ER) | payer MEDICAID ==
[2018-10-29] MEDS ORDERED: ALBUTEROL SULFATE HFA (90 MCG/PUFF) 8 GM MDI (1 MDI/ER DISP) IH PRN (23:04)
[2018-10-29] MEDS ORDERED: PREDNISONE 20 MG TABLET PO ONE (23:05)
--- NOTE | 2018-10-29 23:10 | ER Document Report ---
ED General - General Chief Complaint: Cough Stated Complaint: COUGH Time Seen by Provider: 10/29/18 23:00 Primary Care Provider: GIANCARLO CHANCE MD [Primary Care Provider] - Follow up as needed Mode of Arrival: Ambulatory Information source: Patient TRAVEL OUTSIDE OF THE [place] IN LAST 30 DAYS: No - HPI Patient complains to provider of: Cough, shortness of breath Onset: Last week Onset/Duration: Gradual, Persistent Quality of pain: No pain Severity: None Pain Level: Denies Associated symptoms: denies: Chills, Fever Exacerbated by: Denies Relieved by: Denies Similar symptoms previously: No Recently seen / treated by doctor: No Notes: 33-year-old -[place] Citizen male coming in today with shortness of breath and cough. History of reactive airway disease. Out of his inhaler. No fevers or chills. No productive cough - Related Data Allergies/Adverse Reactions: No Known Allergies Allergy (Verified 10/29/18 20:28) Past Medical History - General Information source: Patient - Social History Smoking Status: Never Smoker Lives with: Alone, Homeless Family History: Reviewed & Not Pertinent Patient has suicidal ideation: No Patient has homicidal ideation: No Pulmonary Medical History: Reports: Hx Asthma Renal/ Medical History: Denies: Hx Peritoneal Dialysis GI Medical History: Reports: Hx Irritable Bowel - constipation Musculoskeletal Medical History: Reports Hx Arthritis, Reports Hx Musculoskeletal Trauma Psychiatric Medical History: Reports: Hx Anxiety, Hx Bipolar Disorder, Hx Depression, Hx Personality Disorder, Hx Schizophrenia Past Surgical History: Reports: Hx Abdominal Surgery, Hx Appendectomy, Hx Cholecystectomy, Hx Orthopedic Surgery - finger - Immunizations Immunizations up to date: Yes Hx Diphtheria, Pertussis, Tetanus Vaccination: Yes - 2012 Hx Pneumococcal Vaccination: 08/23/00 Review of Systems - Review of Systems Notes: Constitutional: No fevers. No chills. EENT: No eye redness. No eye pain. No ear pain. No sore throat. Cardiovascular: No chest pain. No palpitations. Respiratory: Positive for cough. Positive for wheezing no shortness of breath. No respiratory distress. Gastrointestinal: No abdominal pain. No nausea, vomiting, or diarrhea. Genitourinary: Atraumatic. No lesions. No pain. No discharge. Musculoskeletal: Atraumatic. No swelling. No deformities. Skin: No rash or lesions. Lymphatic: No swollen lymph nodes. Neurologic: No headache. No syncope. Psychiatric: No suicidal or homicidal ideation. Physical Exam - Vital signs Vitals: Temp Pulse Resp BP Pulse Ox 98.7 F 74 19 124/52 L 96 10/29/18 20:33 10/29/18 20:33 10/29/18 20:33 10/29/18 20:33 10/29/18 20:33 - Notes Notes: General: Well-developed, well-nourished. In no acute distress. Non-toxic appearing. Cardiac: Well-perfused. Regular rate and rhythm. No murmurs, rubs, or gallops. Pulmonary: No respiratory distress. No cyanosis. Mild rhonchi bilaterally. No wheezing. Abdominal: Non-distended. Non-rigid. Bowels sounds are present in all four quadrants. No guarding or rebound. HEENT: Head is atraumatic. Conjunctivae not reddened. No tearing. PERRL. EOMI. Orbits atraumatic. No periorbital swelling or erythema. Oropharynx is without erythema, swelling, or exudates. Neck: Supple. No adenopathy. No meningismus. Dermatologic: Warm with good turgor. No rash. Atraumatic. Chest: Atraumatic. No chest wall tenderness to palpation. Musculoskeletal: Moves all extremities well. No range of motion deficits. no muscular or joint tenderness. No paraspinal muscle tenderness. no midline spinal tenderness or step-off. Genitourinary: Examination deferred Neurologic: No gross neurologic deficits. Psychiatric: Normal mood. Course - Vital Signs Vital signs: Temp Pulse Resp BP Pulse Ox 98.7 F 74 19 124/52 L 96 10/29/18 20:33 10/29/18 20:33 10/29/18 20:33 10/29/18 20:33 10/29/18 20:33 Discharge - Discharge Clinical Impression: Cough Reactive airway disease Qualifiers: Asthma severity: unspecified severity Asthma persistence: unspecified Asthma complication type: uncomplicated Qualified Code(s): J45.909 - Unspecified asthma, uncomplicated Condition: Good Disposition: HOME, SELF-CARE Instructions: Asthma ([facility]) Prescriptions: Albuterol Sulfate [Proair HFA Inhalation Aerosol 8.5 gm MDI] 2 puff IH Q4H PRN #1 mdi PRN Reason: Referrals: GIANCARLO CHANCE MD [Primary Care Provider] - Follow up as needed
[2018-10-29 23:15] VITALS: BP 120/85
== END 2018-10-29 23:14 | disposition home or self-care (01) ==
LOC: ER 20:25
DX: R05 Cough (principal); J45.909 Unspecified asthma, uncomplicated
CPT/HCPCS: 99283; J7512; J3490

== ENCOUNTER 2018-10-30 08:00 | Emergency (ER) | payer MEDICAID ==
--- NOTE | 2018-10-30 08:54 | ER Document Report ---
ED General - General Chief Complaint: Insect Bite Stated Complaint: POSSIBLE INSECT BITE Time Seen by Provider: 10/30/18 08:53 Primary Care Provider: GIANCARLO CHANCE MD [Primary Care Provider] - Follow up as needed TRAVEL OUTSIDE OF THE [place] IN LAST 30 DAYS: No - HPI Patient complains to provider of: Insect bite Notes: Patient coming in for evaluation of insect bite to the right hand. Patient states a mosquito bit him underneath the first joint of the thumb had some erythema develop patient states that he is concerned as that he may be getting an infection in his blood and requested to be checked out. Patient does have a history of mental health disease and is very well-known to this provider. Patient is currently at baseline. Patient otherwise does have a significant history for asthma bronchitis denies any shortness of breath or wheezing at this time. Patient denies any other trauma or any other issues he wishes to be addressed today - Related Data Allergies/Adverse Reactions: No Known Allergies Allergy (Verified 10/29/18 20:28) Past Medical History - Social History Smoking Status: Former Smoker Chew tobacco use (# tins/day): No Frequency of alcohol use: None Drug Abuse: None Family History: Reviewed & Not Pertinent Patient has suicidal ideation: No Patient has homicidal ideation: No Pulmonary Medical History: Reports: Hx Asthma Renal/ Medical History: Denies: Hx Peritoneal Dialysis GI Medical History: Reports: Hx Irritable Bowel - constipation Musculoskeletal Medical History: Reports Hx Arthritis, Reports Hx Musculoskeletal Trauma Psychiatric Medical History: Reports: Hx Anxiety, Hx Bipolar Disorder, Hx Depression, Hx Personality Disorder, Hx Schizophrenia Past Surgical History: Reports: Hx Abdominal Surgery, Hx Appendectomy, Hx Cholecystectomy, Hx Orthopedic Surgery - finger - Immunizations Immunizations up to date: Yes Hx Diphtheria, Pertussis, Tetanus Vaccination: Yes - 2012 Hx Pneumococcal Vaccination: 08/23/00 Review of Systems - Review of Systems Constitutional: No symptoms reported EENT: No symptoms reported Cardiovascular: No symptoms reported Respiratory: No symptoms reported Gastrointestinal: No symptoms reported Genitourinary: No symptoms reported Male Genitourinary: No symptoms reported Musculoskeletal: No symptoms reported Skin: Other - Possible insect bite Hematologic/Lymphatic: No symptoms reported Neurological/Psychological: No symptoms reported Physical Exam - Vital signs Vitals: Temp Pulse Resp BP Pulse Ox 97.8 F 87 20 118/69 98 10/30/18 08:07 10/30/18 08:07 10/30/18 08:07 10/30/18 08:07 10/30/18 08:07 Interpretation: Normal - General General appearance: Appears well, Alert - HEENT Head: Normocephalic, Atraumatic Eyes: Normal Pupils: PERRL - Respiratory Respiratory status: No respiratory distress Chest status: Nontender Breath sounds: Normal Chest palpation: Normal - Cardiovascular Rhythm: Regular Heart sounds: Normal auscultation Murmur: No - Abdominal Inspection: Normal Distension: No distension Bowel sounds: Normal Tenderness: Nontender Organomegaly: No organomegaly - Back Back: Normal, Nontender - Extremities General upper extremity: Nontender, Normal color, Normal ROM, Normal temperature. No: Normal inspection - Patient was slight erythema at the base of the thumb bedside ultrasound shows no signs of abscess formation or fluid that required draining. Evaluation is consistent with insect bite this evaluation was performed on the right hand left hand infected General lower extremity: Normal inspection, Nontender, Normal color, Normal ROM, Normal temperature, Normal weight bearing. No: Esdras's sign - Neurological Neuro grossly intact: Yes Cognition: Normal Orientation: AAOx4 Jasmin Coma Scale Eye Opening: Spontaneous [place] Coma Scale Verbal: Oriented Jasmin Coma Scale Motor: Obeys Commands Jasmin Coma Scale Total: 15 Speech: Normal Motor strength normal: LUE, RUE, LLE, RLE Sensory: Normal - Psychological Associated symptoms: Normal affect, Normal mood - Skin Skin Temperature: Warm Skin Moisture: Dry Skin Color: Normal Course - Re-evaluation Re-evalutation: 10/30/18 13:17 Reassured patient there is no signs of infection patient will be given Benadryl cream to place on the site if it continues to itch - Vital Signs Vital signs: Temp Pulse Resp BP Pulse Ox 97.4 F 58 L 16 110/66 97 10/30/18 09:04 10/30/18 09:04 10/30/18 09:04 10/30/18 09:04 10/30/18 09:04 Discharge - Discharge Clinical Impression: Insect bite Qualifiers: Encounter type: initial encounter Site of insect bite: hand Laterality: right Qualified Code(s): S60.561A - Insect bite (nonvenomous) of right hand, initial encounter; W57.XXXA - Bitten or stung by nonvenomous insect and other nonvenomous arthropods, initial encounter Condition: Good Disposition: HOME, SELF-CARE Instructions: Swollen Insect Bite or Sting ([facility]) Additional Instructions: Please apply the Benadryl cream to your insect bite whenever it is itching you can do this every 4 hours. Return to the ER if symptoms worsen follow-up with your primary care physician Referrals: GIANCARLO CHANCE MD [Primary Care Provider] - Follow up as needed
[2018-10-30 09:33] VITALS: BP 110/66
[2018-10-30] MEDS ORDERED: DIPHENHYDRAMINE HCL 2% CREAM 30 GM TP SCH (10:00)
== END 2018-10-30 09:10 | disposition home or self-care (01) ==
LOC: ER 08:00
DX: S60.561A Insect bite (nonvenomous) of right hand, initial encounter (principal); W57.XXXA Bitten or stung by nonvenomous insect and other nonvenomous arthropods, initial encounter; Z90.49 Acquired absence of other specified parts of digestive tract
CPT/HCPCS: 99281; J3490

== ENCOUNTER 2018-11-01 01:28 | Emergency (ER) | payer MEDICAID ==
--- NOTE | 2018-11-01 01:47 | ER Document Report ---
ED Medical Screen (RME) - General Stated Complaint: COUGH Primary Care Provider: GIANCARLO CHANCE MD [Primary Care Provider] - Follow up as needed Notes: 33-year-old homeless individual coming into night for cough and sore throat. Has been seen multiple times for cough. Often times, has prescriptions from previous ER visits that have not been filled. Also has some sore throat. No reported fevers I have treated and performed a rapid initial assessment of this patient. A comprehensive ED assessment and evaluation of the patient, analysis of test results and completion of medical decision making process will be conducted by additional ED providers. PHYSICAL EXAMINATION: GENERAL: Disheveled LUNGS: No cough. No respiratory distress TRAVEL OUTSIDE OF THE [place] IN LAST 30 DAYS: No - Related Data Allergies/Adverse Reactions: No Known Allergies Allergy (Verified 10/29/18 20:28) Past Medical History - Social History Family history: Reviewed & Not Pertinent Pulmonary Medical History: Reports: Hx Asthma Renal/ Medical History: Denies: Hx Peritoneal Dialysis GI Medical History: Reports: Hx Irritable Bowel - constipation Musculoskeltal Medical History: Reports Hx Arthritis, Reports Hx Musculoskeletal Trauma Psychiatric Medical History: Reports: Hx Anxiety, Hx Bipolar Disorder, Hx Depression, Hx Personality Disorder, Hx Schizophrenia Past Surgical History: Reports: Hx Abdominal Surgery, Hx Appendectomy, Hx Cholecystectomy, Hx Orthopedic Surgery - finger - Immunizations Immunizations up to date: Yes Hx Diphtheria, Pertussis, Tetanus Vaccination: Yes - 2012 Doctor's Discharge - Discharge Referrals: GIANCARLO CHANCE MD [Primary Care Provider] - Follow up as needed
[2018-11-01] MEDS ORDERED: IPRATROPIUM/ALBUTEROL 0.5-2.5 MG/3 ML AMPUL NEB ONE (06:49)
[2018-11-01] MEDS ORDERED: METHYLPREDNISOLONE INJ 125 MG/2 ML SDV IV ONE (06:54)
[2018-11-01] MEDS ORDERED: NORMAL SALINE 1000 ML 1,000 ML IV ONE (06:57)
[2018-11-01] MEDS: MAGNESIUM SULFATE/D5W 1 GM/100 ML RTUPB IV SCH ×2 (07:10→08:44)
[2018-11-01 07:29] LABS: ABSOLUTE BASOPHILS # (AUTO) 0.1 10^3/uL (0.0-0.2); ABSOLUTE EOSINOPHILS # (AUTO) 0.8 10^3/uL (0.0-0.6); ABSOLUTE MONOCYTES (AUTO) 0.4 10^3/uL (0.1-1.4); ABSOLUTE NEUT (AUTO) 1.1 10^3/uL (1.7-8.2); BASOPHILS % (AUTO) 1.5 % (0-2); EOSINOPHILS % (AUTO) 19.1 % (0-6); HEMATOCRIT 42.8 % (37.9-51.0); HEMOGLOBIN 14.3 g/dL (13.5-17.0); LYMPHOCYTES % (AUTO) 45.7 % (13-45); MEAN CORPUSCULAR HEMOGLOBIN 27.3 pg (27.0-33.4); MEAN CORPUSCULAR HGB CONC 33.4 g/dL (32.0-36.0); MEAN CORPUSCULAR VOLUME 82 fl (80-97); MONOCYTES % (AUTO) 8.4 % (3-13); PLATELET COUNT 232 10^3/uL (150-450); RED BLOOD COUNT 5.24 10^6/uL (4.35-5.55); RED CELL DISTRIBUTION WIDTH 14.5 % (11.5-14.0); SEGMENTED NEUTROPHILS % (AUTO) 25.3 % (42-78); TOTAL CELLS COUNTED % (AUTO) 100 %; WHITE BLOOD COUNT 4.4 10^3/uL (4.0-10.5)
[2018-11-01 07:31] LABS: VENOUS BLOOD BASE EXCESS 4.1 mmol/L; VENOUS BLOOD PH 7.3 (7.30-7.42)
[2018-11-01 07:48] LABS: VENOUS BLOOD PCO2 68.8 mmHg (35-63)
[2018-11-01 07:49] LABS: ALANINE AMINOTRANSFERASE 21 U/L (21-72); ALBUMIN 4.6 g/dL (3.5-5.0); ALKALINE PHOSPHATASE 74 U/L (38-126); ANION GAP 9 (5-19); ASPARTATE AMINO TRANSFERASE 25 U/L (17-59); BILIRUBIN,DIRECT 0.1 mg/dL (0.0-0.4); BILIRUBIN,TOTAL 1.6 mg/dL (0.2-1.3); BLOOD UREA NITROGEN 18 mg/dL (7-20); CALCIUM 9.5 mg/dL (8.4-10.2); CARBON DIOXIDE 30 mmol/L (22-30); CHLORIDE 102 mmol/L (98-107); GLUCOSE 89 mg/dL (75-110); POTASSIUM 4.3 mmol/L (3.6-5.0); SODIUM 141.2 mmol/L (137-145); TOTAL PROTEIN 7.5 g/dL (6.3-8.2)
[2018-11-01] MEDS ORDERED: ALBUTEROL SULFATE HFA (90 MCG/PUFF) 8 GM MDI (1 MDI/ER DISP) IH ONE (07:50)
--- NOTE | 2018-11-01 07:57 | ER Document Report ---
ED Respiratory Problem - General Chief Complaint: Cough Stated Complaint: COUGH Time Seen by Provider: 11/01/18 06:46 Primary Care Provider: GIANCARLO CHANCE MD [Primary Care Provider] - Follow up as needed Notes: Patient is a 33-year-old male well-known to the emergency department presents for generalized cough and shortness of breath. Initially presents to the emergency department for generalized cough and sore throat. Patient has been to this facility multiple times recently given albuterol inhalers and prednisone prescriptions for his reactive airway disease. Patient states he does not have the money to fill any of the prescriptions and has not filled any of them. Patient is denying any fevers. States he does have a generalized cough and congestion. Upon my examination patient is tachypnea, tripod position, diaphoretic, very anxious. He has inspiratory expiratory wheezes heard in all lung garcia. We are unable to get an oxygen saturation as the patient is diaphoretic and restless in the bed. Patient immediately placed on a nonrebreather oxygen 15 L/min while waiting nursing staff to obtain DuoNeb treatments. Past medical history: Asthma, schizophrenia Medications: Currently none Allergies: None TRAVEL OUTSIDE OF THE [place] IN LAST 30 DAYS: No - Related Data Allergies/Adverse Reactions: No Known Allergies Allergy (Verified 10/29/18 20:28) Past Medical History - General Information source: Patient - Social History Smoking Status: Never Smoker Family History: Reviewed & Not Pertinent Patient has suicidal ideation: No Patient has homicidal ideation: No Pulmonary Medical History: Reports: Hx Asthma Renal/ Medical History: Denies: Hx Peritoneal Dialysis GI Medical History: Reports: Hx Irritable Bowel - constipation Musculoskeletal Medical History: Reports Hx Arthritis, Reports Hx Musculoskeletal Trauma Psychiatric Medical History: Reports: Hx Anxiety, Hx Bipolar Disorder, Hx Depression, Hx Personality Disorder, Hx Schizophrenia Past Surgical History: Reports: Hx Abdominal Surgery, Hx Appendectomy, Hx Cholecystectomy, Hx Orthopedic Surgery - finger - Immunizations Immunizations up to date: Yes Hx Diphtheria, Pertussis, Tetanus Vaccination: Yes - 2012 Hx Pneumococcal Vaccination: 08/23/00 Review of Systems - Review of Systems Constitutional: See HPI EENT: See HPI Cardiovascular: See HPI Respiratory: See HPI Gastrointestinal: No symptoms reported Genitourinary: No symptoms reported Male Genitourinary: No symptoms reported Musculoskeletal: No symptoms reported Skin: No symptoms reported Hematologic/Lymphatic: No symptoms reported Neurological/Psychological: No symptoms reported Physical Exam - Vital signs Vitals: Temp Pulse Resp BP Pulse Ox 99.0 F 83 20 105/73 97 11/01/18 01:45 11/01/18 01:45 11/01/18 01:45 11/01/18 01:45 11/01/18 01:45 - Notes Notes: GENERAL: Alert, tripod, tachypnea, diaphoretic, anxious HEAD: Normocephalic, atraumatic. EYES: Pupils equal, round, and reactive to light. Extraocular movements intact. ENT: Oral mucosa moist, tongue midline. Nares patent, clear rhinorrhea noted bilaterally, TM's intact, nonerythematous, nonbulging bilaterally. NECK: Full range of motion. Supple. Trachea midline. No lymphadenopathy appreciated LUNGS: Inspiratory expiratory wheezes auscultation bilaterally all garcia. HEART: Tachycardic rate and rhythm. No murmur ABDOMEN: Soft, non-tender. Non-distended. Bowel sounds present in all 4 quadrants. EXTREMITIES: Moves all 4 extremities spontaneously. No edema, normal radial and dorsalis pedis pulses bilaterally. No cyanosis. BACK: no cervical, thoracic, lumbar midline tenderness. No saddle anesthesia, normal distal neurovascular exam. NEUROLOGICAL: Alert and oriented x3. Normal speech. cranial nerves II through XII grossly intact SKIN: Warm, diaphoretic, normal turgor. No rashes or lesions noted. Course - Re-evaluation Re-evalutation: 11/01/18 07:55 Patient has been treated in the emergency department with 3-year DuoNeb treatments, 125 mg of Solu-Medrol and 2 g of magnesium. Patient states he feels "a whole lot better." Patient's lung sounds are now clear and equal in all garcia patient is in no respiratory distress. Patient just had a chest x-ray at this facility on 10/25/2018. Patient continues to have repeat chest x-rays at this facility for his repeat visits. I do not feel as though a chest x-ray is warranted at this time. Patient is afebrile, with an oxygen saturation of 98%, heart rate 89, respiratory rate 17, blood pressure 120/79. Discussed with patient that I will give him an albuterol inhaler here in the emergency department but discussed the importance of him making sure he gets his prescriptions filled, patient was given prescription discount cards and is stable for discharge. - Vital Signs Vital signs: Temp Pulse Resp BP Pulse Ox 98.1 F 83 17 120/79 91 L 11/01/18 07:17 11/01/18 01:45 11/01/18 07:01 11/01/18 07:01 11/01/18 07:01 - Laboratory Result Diagrams: 11/01/18 07:05 11/01/18 07:05 Laboratory results interpreted by me: 11/01/18 11/01/18 11/01/18 07:05 07:05 07:05 RDW 14.5 H Seg Neutrophils % 25.3 L Lymphocytes % 45.7 H Eosinophils % 19.1 H Absolute Neutrophils 1.1 L Absolute Eosinophils 0.8 H VBG pCO2 68.8 H* VBG HCO3 33.0 H Total Bilirubin 1.6 H Discharge - Discharge Clinical Impression: Asthma exacerbation Qualifiers: Asthma severity: severe Asthma persistence: unspecified Qualified Code(s): J4 5.901 - Unspecified asthma with (acute) exacerbation Condition: Stable Disposition: HOME, SELF-CARE Instructions: Asthma ([facility]) Additional Instructions: As we discussed you have been seen and treated in the emergency department after an asthma attack. It is very important that you use the albuterol inhaler we have given you every 4 hours. Please take 1-2 pumps every 4 hours for the next 24 hours. I have also given you a prescription for a repeat fill of your albuterol inhaler and steroids. Please make sure you get them filled. I have also given you a prescription discount cards. Please use them at the pharmacy. Please return to the emergency room should you have any other concerning symptoms. Prescriptions: Albuterol Sulfate [Proair HFA Inhalation Aerosol 8.5 gm MDI] 2 puff IH Q4H PRN #1 mdi PRN Reason: Prednisone [Deltasone 20 mg Tablet] 3 tab PO DAILY 5 Days tablet Referrals: GIANCARLO CHANCE MD [Primary Care Provider] - Follow up as needed
[2018-11-01 08:21] VITALS: BP 134/54
== END 2018-11-01 09:00 | disposition home or self-care (01) ==
LOC: ER 01:28
DX: J45.901 Unspecified asthma with (acute) exacerbation (principal); R05 Cough; J02.9 Acute pharyngitis, unspecified; R06.82 Tachypnea, not elsewhere classified; R61 Generalized hyperhidrosis; F41.9 Anxiety disorder, unspecified
CPT/HCPCS: 94640; 99284; 96375; 96365; 96366; 36415; 85025; 80053; 82803; J2930; J3475; J7030; J3490; J7620

== ENCOUNTER 2018-11-05 03:46 | Observation (INO) | payer MEDICAID ==
[~2018-11-05 03:46] MED LIST: ALBUTEROL SULFATE 0.042% NEB (1.25 MG/3 ML) AMPUL NEB ONE; IPRATROPIUM/ALBUTEROL 0.5-2.5 MG/3 ML AMPUL NEB ONE; MAGNESIUM SULFATE/D5W 2 GM/200 ML RTUPB IV ONE; METHYLPREDNISOLONE INJ 125 MG/2 ML SDV ONE
[2018-11-05] MEDS: MAGNESIUM SULFATE/D5W 1 GM/100 ML RTUPB IV SCH ×2 (03:46→04:48)
[2018-11-05] MEDS ORDERED: IPRATROPIUM/ALBUTEROL 0.5-2.5 MG/3 ML AMPUL NEB ONE (03:59)
[2018-11-05] MEDS ORDERED: METHYLPREDNISOLONE INJ 125 MG/2 ML SDV IV ONE (03:59)
--- NOTE | 2018-11-05 03:59 | ER Document Report ---
ED General - General Chief Complaint: Shortness Of Breath Stated Complaint: DIFFICULTY BREATHING Time Seen by Provider: 11/05/18 03:58 Primary Care Provider: GIANCARLO CHANCE MD [Primary Care Provider] - Follow up as needed Notes: Patient is a 33-year-old male who presents with complaint of difficulty breathing. Patient says that he does have history of asthma. He is actually here on November 01 and received several breathing treatments and steroids. He was discharged with steroids however was unable to fill his prescriptions due to not having money. Patient denies any fevers. He presents in severe mastoid distress. Very tachypneic. He is hypoxic. Patient is able to only say 1 or 2 words at a time. TRAVEL OUTSIDE OF THE [place] IN LAST 30 DAYS: No - Related Data Allergies/Adverse Reactions: No Known Allergies Allergy (Verified 10/29/18 20:28) Past Medical History - Social History Smoking Status: Unknown if Ever Smoked Frequency of alcohol use: None Drug Abuse: None Family History: Reviewed & Not Pertinent Pulmonary Medical History: Reports: Hx Asthma Renal/ Medical History: Denies: Hx Peritoneal Dialysis GI Medical History: Reports: Hx Irritable Bowel - constipation Musculoskeletal Medical History: Reports Hx Arthritis, Reports Hx Musculoskeletal Trauma Psychiatric Medical History: Reports: Hx Anxiety, Hx Bipolar Disorder, Hx Depression, Hx Personality Disorder, Hx Schizophrenia Past Surgical History: Reports: Hx Abdominal Surgery, Hx Appendectomy, Hx Cholecystectomy, Hx Orthopedic Surgery - finger - Immunizations Immunizations up to date: Yes Hx Diphtheria, Pertussis, Tetanus Vaccination: Yes - 2012 Hx Pneumococcal Vaccination: 08/23/00 Review of Systems - Review of Systems Notes: My Normal Review Basic REVIEW OF SYSTEMS: CONSTITUTIONAL : Denies fever, chills, or sweats. Denies recent illness. EENT: Recent nasal congestion CARDIOVASCULAR: Denies chest pain. RESPIRATORY: Difficulty breathing. GASTROINTESTINAL: Denies abdominal pain. Denies nausea, vomiting, or diarrhea. MUSCULOSKELETAL: Denies neck or back pain or joint pain or swelling. SKIN: Denies rash or skin lesions. NEUROLOGICAL: Denies altered mental status or loss of consciousness. ALL OTHER SYSTEMS REVIEWED AND NEGATIVE. Physical Exam - Vital signs Vitals: Resp 23 H 11/05/18 03:44 - Notes Notes: General Appearance: Well nourished, alert, cooperative, moderate acute distress, no obvious discomfort. Vitals: reviewed, See vital signs table. Head: no swelling or tenderness to the head Eyes: PERRL, EOMI, Conjuctiva clear Mouth: No decreasd moisture Lungs: Scattered wheezing. Fair exchange. Tachypneic Heart: Normal rate, Regular rythm, No murmur, no rub Abdomen: Normal BS, soft, No rigidity, No abdominal tenderness, No guarding, no rebound, no abdominal masses, no organomegaly Extremities: strength 5/5 in all extremities, good pulses in all extremities, no swelling or tenderness in the extremities, no edema. Skin: warm, dry, appropriate color, no rash Neuro: speech clear, oriented x 3, normal affect, responds appropriately to questions. Course - Re-evaluation Re-evalutation: 11/05/18 04:34 Patient's VBG does show that he is acidotic with elevated CO2. Clinically on reassessment he is looking much improved on the BiPAP. He feels much more comfortable. He is much more awake. I will recheck a venous blood gas and 20 minutes. If his CO2 and pH are improving and I think we can avoid intubation as the patient clinically looks better. Patient's lung auscultation is improving as well. He is now just has a little bit of wheezing and he has good air exchange. 11/05/18 05:37 Patient's blood gas is much improved. He clinically looks very well. Air movement is improved. Wheezing is almost completely resolved. Being the fact the patient was so acidotic when he arrived with significant hypoxemia I think is appropriate to keep him on BiPAP and admit him for observation. He says that he sees Dr. Chance. He says last time he saw Dr. Chance was about a month ago. I did initially spoken to Dr. Monae about the patient's care not realizing he was a Dr. Chance patient. I have called back Dr. Monae and informed him that this is actually Dr. Chance patient. 11/05/18 05:41 I called spoke with Dr. Kaur who is covering for Dr. Chance. He agrees to accept the patient for admission. - Vital Signs Vital signs: Temp Pulse Resp BP Pulse Ox 98.7 F 15 105/69 97 11/05/18 04:10 11/05/18 05:00 11/05/18 05:00 11/05/18 05:00 - Laboratory Result Diagrams: 11/05/18 04:07 11/05/18 04:07 Laboratory results interpreted by me: 11/05/18 11/05/18 11/05/18 04:07 04:07 04:07 MCHC 31.9 L RDW 14.4 H Seg Neutrophils % 33.4 L Lymphocytes % 47.1 H Eosinophils % 10.5 H Absolute Eosinophils 0.9 H VBG pH 7.01 L* VBG pCO2 68.6 H* VBG HCO3 16.8 L Carbon Dioxide 14 L Anion Gap 24 H Creatinine 1.28 H Glucose 268 H AST 108 H Salicylates < 1.0 L Acetaminophen < 10 L - EKG Interpretation by Me Additional EKG results interpreted by me: 11/05/18 04:27 EKG is reviewed and interpreted by me. EKG shows sinus tachycardia with a rate of [address] segment elevation or depression. No ischemic T wave inversions. IA interval, QRS duration, QT intervals are within normal range. Old EKG for comparison is from October 01, 2017. Discharge - Discharge Clinical Impression: History of respiratory acidosis Asthma exacerbation Qualifiers: Asthma severity: unspecified severity Asthma persistence: unspecified Qualified Code(s): J45.901 - Unspecified asthma with (acute) exacerbation Condition: Stable Disposition: ADMITTED OBSERVATION Admitting Provider: Varunpr Unit Admitted: [facility]
[2018-11-05 04:21] LABS: ABSOLUTE BASOPHILS # (AUTO) 0.1 10^3/uL (0.0-0.2); ABSOLUTE EOSINOPHILS # (AUTO) 0.9 10^3/uL (0.0-0.6); ABSOLUTE LYMPHOCYTES (AUTO) 4.2 10^3/uL (0.5-4.7); ABSOLUTE MONOCYTES (AUTO) 0.7 10^3/uL (0.1-1.4); BASOPHILS % (AUTO) 1.2 % (0-2); EOSINOPHILS % (AUTO) 10.5 % (0-6); HEMATOCRIT 44.1 % (37.9-51.0); LYMPHOCYTES % (AUTO) 47.1 % (13-45); MEAN CORPUSCULAR HGB CONC 31.9 g/dL (32.0-36.0); MEAN CORPUSCULAR VOLUME 85 fl (80-97); MONOCYTES % (AUTO) 7.8 % (3-13); PLATELET COUNT 250 10^3/uL (150-450); RED BLOOD COUNT 5.21 10^6/uL (4.35-5.55); RED CELL DISTRIBUTION WIDTH 14.4 % (11.5-14.0); SEGMENTED NEUTROPHILS % (AUTO) 33.4 % (42-78); TOTAL CELLS COUNTED % (AUTO) 100 %; WHITE BLOOD COUNT 8.9 10^3/uL (4.0-10.5)
[2018-11-05 04:22] LABS: VENOUS BLOOD BASE EXCESS -15.4 mmol/L; VENOUS BLOOD HCO3 16.8 mmol/L (20-32)
[2018-11-05 04:31] LABS: VENOUS BLOOD PCO2 68.6 mmHg (35-63); VENOUS BLOOD PH 7.01 (7.30-7.42)
[2018-11-05 04:35] LABS: ALANINE AMINOTRANSFERASE 41 U/L (21-72); ALBUMIN 4.3 g/dL (3.5-5.0); ALKALINE PHOSPHATASE 82 U/L (38-126); ASPARTATE AMINO TRANSFERASE 108 U/L (17-59); BILIRUBIN,DIRECT 0.3 mg/dL (0.0-0.4); BILIRUBIN,TOTAL 1.3 mg/dL (0.2-1.3); BLOOD UREA NITROGEN 13 mg/dL (7-20); CALCIUM 9.5 mg/dL (8.4-10.2); GLUCOSE 268 mg/dL (75-110); POTASSIUM 4.3 mmol/L (3.6-5.0); TOTAL PROTEIN 6.4 g/dL (6.3-8.2)
[2018-11-05 04:40] LABS: CARBON DIOXIDE 14 mmol/L (22-30); CHLORIDE 102 mmol/L (98-107); SODIUM 139.9 mmol/L (137-145)
--- NOTE | 2018-11-05 04:41 | RADIOLOGY REPORT (SQ) ---
EXAM DESCRIPTION: XR CHEST 1 VIEW COMPLETED DATE/TME: 11/05/2018 00:00 CLINICAL HISTORY: 33 years, Male, DIFFICULTY BREATHING Comparison: None FINDINGS: No focal lung consolidation. No pleural effusion. No pneumothorax. Cardiac and mediastinal silhouette is unremarkable. No acute osseous abnormality. Soft tissues are unremarkable. IMPRESSION: No acute findings. No focal lung consolidation.
[2018-11-05 04:45] LABS: ACETAMINOPHEN < 10 ug/mL (10-30); ALCOHOL < 10 mg/dL (NONE DETECTED); ANION GAP 24 (5-19); SALICYLATE < 1.0 mg/dL (2.0-20.0)
[2018-11-05 05:13] LABS: VENOUS BLOOD BASE EXCESS -3.6 mmol/L; VENOUS BLOOD HCO3 22.7 mmol/L (20-32); VENOUS BLOOD PCO2 45.5 mmHg (35-63); VENOUS BLOOD PH 7.32 (7.30-7.42)
[2018-11-05] MEDS ORDERED: CHLORPHENIRAMINE MALEATE 4 MG TABLET PO ONE (05:16)
[2018-11-05] MEDS ORDERED: ACETAMINOPHEN 325 MG TABLET PO PRN (05:16)
[2018-11-05] MEDS ORDERED: HYDRALAZINE HCL INJ/PF 20 MG/1 ML SDV IV PRN (05:16)
[2018-11-05] MEDS ORDERED: IPRATROPIUM/ALBUTEROL 0.5-2.5 MG/3 ML AMPUL NEB PRN (05:16)
[2018-11-05] MEDS ORDERED: CHLORPHENIRAMINE MALEATE 4 MG TABLET ONE (05:34)
[2018-11-05] MEDS ORDERED: FLUTICASONE NASAL SPRAY 50 MCG/SPRY 120 SPRAY/16 GM ONE (05:34)
[2018-11-05 05:42] LABS: APPEARANCE,URINE CLEAR; BILIRUBIN,URINE NEGATIVE (NEGATIVE); COLOR,URINE YELLOW; GLUCOSE, URINE 150 mg/dL (NEGATIVE); KETONES,URINE NEGATIVE (NEGATIVE); LEUKOCYTE ESTERASE,URINE NEGATIVE (NEGATIVE); NITRITE,URINE NEGATIVE (NEGATIVE); PROTEIN,URINE 30 mg/dL (NEGATIVE); URINE SPECIFIC GRAVITY 1.016; UROBILINOGEN,URINE NEGATIVE mg/dL (<2.0)
[2018-11-05] MEDS ORDERED: AZITHROMYCIN 500 MG in DEXTROSE 5%-WATER 250 ML IV ONE (06:00)
[2018-11-05] MEDS ORDERED: AZITHROMYCIN INJ 500 MG VIAL IV ONE ×2 (06:00→06:13)
[2018-11-05 06:04] LABS: URINE AMPHETAMINES SCREEN NEGATIVE; URINE BARBITURATES SCREEN NEGATIVE; URINE BENZODIAZEPINES SCREEN NEGATIVE; URINE COCAINE SCREEN NEGATIVE; URINE MARIJUANA (THC) SCREEN NEGATIVE; URINE METHADONE SCREEN NEGATIVE; URINE PHENCYCLIDINE SCREEN NEGATIVE
[2018-11-05] MEDS: FLUTICASONE NASAL SPRAY 50 MCG/SPRY 120 SPRAY/16 GM NASL ONE ×2 (06:18→06:28)
[2018-11-05] MEDS: HEPARIN SOD (PORCINE) 5,000 UNIT/ML 1 ML SYRINGE SUBCUT SCH ×3 (06:18→21:10)
--- NOTE | 2018-11-05 07:20 | PDOC H&P ---
History of Present Illness Admission Date/PCP: 11/05/18 06:06 GIANCARLO CHANCE MD Patient complains of: Respiratory distress History of Present Illness: PATRICK BARAJAS is a 33 year old male with history of homelessness and schizophrenia, asthma with recurrent exacerbation of unknown trigger. He presents with extreme difficulty of breathing with global wheeze, tachypneic and hypoxic unable to speak without coughing he is found to have a pH of 7.0 and a PCO2 of 68. He is placed on BiPAP receiving steroids albuterol and Atrovent with rapid improvement. Imaging is unremarkable for acute finding he is referred to the hospitalist for admission. Patient admits inability to fill prescriptions prescribed by emergency room provider just 4 days ago secondary to lack of finances. Past Medical History Cardiac Medical History: Reports: None Pulmonary Medical History: Reports: Asthma Musculoskeltal Medical History: Reports: Arthritis Psychiatric Medical History: Reports: Bipolar Disorder, Depression, Personality Disorder, Schizoaffective Disorder Past Surgical History Past Surgical History: Reports: Appendectomy, Cholecystectomy, Orthopedic Surgery - finger Social History Information Source: Patient, Emergency Med Personnel, [facility] Records Lives with: Alone, Homeless Smoking Status: Unknown if Ever Smoked Frequency of Alcohol Use: None Hx Recreational Drug Use: No Hx Prescription Drug Abuse: No - Advance Directive Resuscitation Status: Full Code Family History Family History: Other - Unknown Parental Family History Reviewed: Yes - Unknown Children Family History Reviewed: Yes - Unknown Sibling(s) Family History Reviewed.: Yes - Unknown Medication/Allergy Home Medications: Prednisone [Deltasone 20 mg Tablet] 3 tab PO DAILY 5 Days #15 tablet 09/29/18 Albuterol Sulfate [Proair Hfa Inhalation Aerosol 8.5 gm Mdi] 2 puff IH ASDIR PRN #1 mdi 10/19/18 Prednisone [Deltasone 10 mg Tablet] 10 mg PO ASDIR PRN #21 tablet 10/19/18 Prednisone [Deltasone 10 mg Tablet] 10 mg PO ASDIR PRN #21 tablet 10/25/18 Albuterol Sulfate [Proair HFA Inhalation Aerosol 8.5 gm MDI] 2 puff IH Q4H PRN #1 mdi 10/29/18 Albuterol Sulfate [Proair HFA Inhalation Aerosol 8.5 gm MDI] 2 puff IH Q4H PRN #1 mdi 11/01/18 Prednisone [Deltasone 20 mg Tablet] 3 tab PO DAILY 5 Days tablet 11/01/18 Allergies/Adverse Reactions: No Known Allergies Allergy (Verified 10/29/18 20:28) Review of Systems ROS unobtainable: Other - Secondary to BiPAP and extreme dyspnea Physical Exam Vital Signs: Temp Pulse Resp BP Pulse Ox 98.7 F 15 105/69 97 11/05/18 04:10 11/05/18 05:00 11/05/18 05:00 11/05/18 05:00 Intake & Output 11/03/18 11/04/18 11/05/18 11:59 11:59 11:59 Intake Total 200 Output Total 400 Balance -200 Weight 64 kg General appearance: PRESENT: cooperative, severe distress, thin, well-developed. ABSENT: hard of hearing Head exam: PRESENT: atraumatic, normocephalic Eye exam: PRESENT: conjunctival injection, conjunctiva pink, EOMI, PERRLA. ABSENT: scleral icterus Ear exam: PRESENT: normal external ear exam Mouth exam: PRESENT: moist, tongue midline Neck exam: ABSENT: carotid bruit, JVD, lymphadenopathy, thyromegaly Respiratory exam: PRESENT: accessory muscle use, clear to auscultation josefa, crackles, decreased breath sounds, prolonged expiratory phas, retraction, sy mmetrical, tachypnea, wheezes. ABSENT: rales, rhonchi, stridor Cardiovascular exam: PRESENT: +S1, +S2, tachycardia Pulses: PRESENT: normal dorsalis pedis pul Vascular exam: PRESENT: normal capillary refill GI/Abdominal exam: PRESENT: normal bowel sounds, soft. ABSENT: distended, guarding, mass, organolmegaly, rebound, tenderness Rectal exam: PRESENT: deferred Extremities exam: PRESENT: full ROM. ABSENT: calf tenderness, clubbing, pedal edema Neurological exam: PRESENT: alert, awake, oriented to person, oriented to place, oriented to situation, CN II-XII grossly intact Psychiatric exam: PRESENT: appropriate affect, normal mood, unusual affect. ABSENT: homicidal ideation, suicidal ideation Skin exam: PRESENT: dry, intact, warm. ABSENT: cyanosis, rash Results Laboratory Results: 11/05/18 04:07 11/05/18 04:07 11/05/18 11/05/18 11/05/18 04:07 04:07 04:07 WBC 8.9 RBC 5.21 Hgb 14.0 Hct 44.1 MCV 85 MCH 27.0 MCHC 31.9 L RDW 14.4 H Plt Count 250 Seg Neutrophils % 33.4 L Lymphocytes % 47.1 H Monocytes % 7.8 Eosinophils % 10.5 H Basophils % 1.2 Absolute Neutrophils 3.0 Absolute Lymphocytes 4.2 Absolute Monocytes 0.7 Absolute Eosinophils 0.9 H Absolute Basophils 0.1 VBG pH 7.01 L* VBG pCO2 68.6 H* VBG HCO3 16.8 L VBG Base Excess -15.4 Sodium 139.9 Potassium 4.3 Chloride 102 Carbon Dioxide 14 L Anion Gap 24 H BUN 13 Creatinine 1.28 H Est GFR ( Amer) > 60 Est GFR (Non-Af Amer) > 60 Glucose 268 H Calcium 9.5 Total Bilirubin 1.3 AST 108 H ALT 41 Alkaline Phosphatase 82 Total Protein 6.4 Albumin 4.3 Urine Color Urine Appearance Urine pH Ur Specific [place] Urine Protein Urine Glucose (UA) Urine Ketones Urine Blood Urine Nitrite Ur Leukocyte Esterase Urine WBC (Auto) Urine RBC (Auto) 11/05/18 11/05/18 04:53 05:23 WBC RBC Hgb Hct MCV MCH MCHC RDW Plt Count Seg Neutrophils % Lymphocytes % Monocytes % Eosinophils % Basophils % Absolute Neutrophils Absolute Lymphocytes Absolute Monocytes Absolute Eosinophils Absolute Basophils VBG pH 7.32 VBG pCO2 45.5 VBG HCO3 22.7 VBG Base Excess -3.6 Sodium Potassium Chloride Carbon Dioxide Anion Gap BUN Creatinine Est GFR ( Amer) Est GFR (Non-Af Amer) Glucose Calcium Total Bilirubin AST ALT Alkaline Phosphatase Total Protein Albumin Urine Color YELLOW Urine Appearance CLEAR Urine pH 5.0 Ur Specific [place] 1.016 Urine Protein 30 H Urine Glucose (UA) 150 H Urine Ketones NEGATIVE Urine Blood NEGATIVE Urine Nitrite NEGATIVE Ur Leukocyte Esterase NEGATIVE Urine WBC (Auto) 1 Urine RBC (Auto) 0 Impressions: Chest X-Ray 11/05/18 00:00 IMPRESSION: No acute findings. No focal lung consolidation. Assessment & Plan - Diagnosis (1) Acute respiratory failure Is this a current diagnosis for this admission?: Yes Plan: Telemetry admission, albuterol, Atrovent, Solu-Medrol, Pepcid, follow-up ABG (2) Asthma exacerbation Qualifiers: Asthma severity: unspecified severity Asthma persistence: unspecified Qualified Code(s): J45.901 - Unspecified asthma with (acute) exacerbation Is this a current diagnosis for this admission?: Yes Plan: Unclear trigger, no tobacco alcohol or substance abuse, likely secondary to lack of controlling agents. Albuterol, Atrovent, stress dose steroids, peak flow. (3) Schizophrenia Is this a current diagnosis for this admission?: Yes Plan: Unable to obtain medications. Discharge planning consult - Time Time Spent: 50 to 70 Minutes - Inpatient Certification Medical Necessity: Need Close Monitoring Due to Risk of Patient Decompensation
--- NOTE | 2018-11-05 07:42 | EKG REPORT ---
SEVERITY:- ABNORMAL ECG - SINUS TACHYCARDIA RIGHT ATRIAL ABNORMALITY BORDERLINE RIGHT AXIS DEVIATION : Confirmed by: Rasta Root MD 05-Nov-2018 07:40:55
[2018-11-05] MEDS: IPRATROPIUM/ALBUTEROL 0.5-2.5 MG/3 ML AMPUL NEB SCH ×3 (08:59→19:31)
--- NOTE | 2018-11-05 09:18 | PROGRESS NOTE E ---
Progress Note NAME: PATRICK BARAJAS : 1985 AGE: 33Y DATE: 11/05/2018 ROOM: ED22 SUBJECTIVE: The patient is a pleasant 33-year-old male who had a history of schizophrenia and asthma, admitted with respiratory distress, shortness of breath, severe asthma. He had ABG that was done. PH is 7.1 and PCO2 is 68. The patient was placed on BiPAP and he is better and now he is on nasal cannula 2 L saturating in the mid 90s. OBJECTIVE: GENERAL: Patient lying in bed comfortable, not in distress. VITAL SIGNS: His blood pressure is 119/59, his heart rate is 89, respiratory 24, saturation 96% on 2 L. HEENT: Head normocephalic, atraumatic. Pupils round, reactive to light and accommodation bilaterally. Extraocular movements intact. Ears: Tympanic membranes intact bilaterally. No discharge from the ears. No discharge from the nose. NECK: Supple. No increased JVD. No thyromegaly. No lymphadenopathy. CARDIOVASCULAR: Normal S1, S2. Regular rate and rhythm. No murmur. No gallop. RESPIRATORY: Lungs bilateral wheezing, very few. ABDOMEN: Soft. MUSCULOSKELETAL: No edema. LABORATORY: White blood count 8.9, hemoglobin is 14, hematocrit 44. Sodium is 139, potassium is 4.3, creatinine is 1.28. ASSESSMENT AND PLAN: 1. ACUTE HYPOXIC HYPERCAPNIC RESPIRATORY FAILURE SECONDARY TO ASTHMA EXACERBATION, IMPROVED. THE PATIENT WAS INITIALLY IN RESPIRATORY DISTRESS ON BIPAP, BUT HE IS OFF BIPAP NOW. Nasal cannula, Solu-Medrol, and nebulizer. 2. ASTHMA EXACERBATION, SEVERE. Continue nebulizer and oxygen. 3. SCHIZOPHRENIA, CONTROLLED. MEDICAL NECESSITY: The patient needs to stay for treatment of asthma exacerbation and his respiratory failure. TIME SPENT: 25 minutes. DICTATING PHYSICIAN: SIMRAN CARREON M.D. [id number] PHY#: [id number] ID: [id number] JOB#: [id number] ACCT: [id number] cc: >
[2018-11-05] MEDS: FAMOTIDINE 20 MG TABLET PO SCH ×2 (11:50→21:11)
[2018-11-05] MEDS: METHYLPREDNISOLONE INJ 125 MG/2 ML SDV IV SCH ×2 (14:09→21:11)
[2018-11-05] MEDS: FLUTICASONE NASAL SPRAY 50 MCG/SPRY 120 SPRAY/16 GM NASL SCH (21:07)
[2018-11-06] MEDS: IPRATROPIUM/ALBUTEROL 0.5-2.5 MG/3 ML AMPUL NEB SCH ×3 (02:00→13:09)
[2018-11-06 05:23] LABS: ABSOLUTE LYMPHOCYTES (AUTO) 0.4 10^3/uL (0.5-4.7); ABSOLUTE MONOCYTES (AUTO) 0.2 10^3/uL (0.1-1.4); ABSOLUTE NEUT (AUTO) 5.3 10^3/uL (1.7-8.2); BASOPHILS % (AUTO) 0.2 % (0-2); HEMATOCRIT 42.2 % (37.9-51.0); HEMOGLOBIN 14.2 g/dL (13.5-17.0); MEAN CORPUSCULAR HEMOGLOBIN 27.3 pg (27.0-33.4); MEAN CORPUSCULAR HGB CONC 33.6 g/dL (32.0-36.0); MONOCYTES % (AUTO) 2.8 % (3-13); PLATELET COUNT 215 10^3/uL (150-450); RED CELL DISTRIBUTION WIDTH 14.5 % (11.5-14.0); TOTAL CELLS COUNTED % (AUTO) 100 %; WHITE BLOOD COUNT 5.9 10^3/uL (4.0-10.5)
[2018-11-06 05:43] LABS: ALANINE AMINOTRANSFERASE 49 U/L (21-72); ALBUMIN 4.6 g/dL (3.5-5.0); ALKALINE PHOSPHATASE 80 U/L (38-126); ANION GAP 12 (5-19); ASPARTATE AMINO TRANSFERASE 39 U/L (17-59); BILIRUBIN,DIRECT 0.2 mg/dL (0.0-0.4); BILIRUBIN,TOTAL 1.1 mg/dL (0.2-1.3); BLOOD UREA NITROGEN 17 mg/dL (7-20); CALCIUM 10.1 mg/dL (8.4-10.2); CARBON DIOXIDE 27 mmol/L (22-30); CHLORIDE 103 mmol/L (98-107); GLUCOSE 123 mg/dL (75-110); MEAN CORPUSCULAR VOLUME 81 fl (80-97); POTASSIUM 5.2 mmol/L (3.6-5.0); SODIUM 141.6 mmol/L (137-145); TOTAL PROTEIN 7.6 g/dL (6.3-8.2)
[2018-11-06] MEDS: METHYLPREDNISOLONE INJ 125 MG/2 ML SDV IV SCH (05:47)
[2018-11-06] MEDS: HEPARIN SOD (PORCINE) 5,000 UNIT/ML 1 ML SYRINGE SUBCUT SCH (05:47)
--- NOTE | 2018-11-06 08:36 | EKG REPORT ---
SEVERITY:- ABNORMAL ECG - SINUS RHYTHM CONSIDER LEFT VENTRICULAR HYPERTROPHY ST ELEVATION SUGGESTS PERICARDITIS TALL T, CONSIDER METABOLIC/ISCHEMIC ABNRM : Confirmed by: Rasta Root MD 06-Nov-2018 08:36:04
[2018-11-06] MEDS ORDERED: PREDNISOLONE SOD PHOS 15 MG/5 ML ORAL SYRING PO SCH (10:00)
[2018-11-06] MEDS ORDERED: AZITHROMYCIN 500 MG in DEXTROSE 5%-WATER 250 ML IV SCH (10:00)
[2018-11-06] MEDS: FLUTICASONE NASAL SPRAY 50 MCG/SPRY 120 SPRAY/16 GM NASL SCH (10:55)
[2018-11-06] MEDS: FAMOTIDINE 20 MG TABLET PO SCH (10:56)
--- NOTE | 2018-11-06 12:00 | PDOC CONSULTATION ---
Consultation Consult Date: 11/06/18 Consult reason:: Abnormal EKG History of Present Illness Admission Date/PCP: 11/05/18 06:06 GIANCARLO CHANCE MD History of Present Illness: PATRICK BARAJAS is a 33 year old male with past medical history of bronchial asthma and schizophrenia per medical records was admitted with complaints of worsening shortness of breath and found to have an acute exacerbation of his bronchial asthma. He is clinically much improved after his treatments but we were consulted because of an abnormal EKG. Patient seen at bedside and does not appear to be in any distress. He denies any complaints of chest pain whether on exertion or deep breathing or when he lies down or any cough and claims that his breathing is much better now. He denies any recent history of fever but did have an asthma flareup few days ago. He denies any history of dizziness or palpitations or any passing out episodes. He claims that he used to smoke cigarettes but quit many years ago. He is currently homeless. He denies any recreational drug use or alcohol abuse. He denies any family history of coronary artery disease. Past Medical History Cardiac Medical History: Reports: None Pulmonary Medical History: Reports: Asthma Musculoskeltal Medical History: Reports: Arthritis Psychiatric Medical History: Reports: Bipolar Disorder, Depression, Personality Disorder, Schizoaffective Disorder Past Surgical History Past Surgical History: Reports: Appendectomy, Cholecystectomy, Orthopedic Surgery - finger Social History Lives with: Alone, Homeless Smoking Status: Former Smoker Frequency of Alcohol Use: Rare Hx Recreational Drug Use: No Drugs: None Hx Prescription Drug Abuse: No - Advance Directive Resuscitation Status: Full Code Family History Family History: Reviewed & Not Pertinent, Other - Unknown Parental Family History Reviewed: Yes Children Family History Reviewed: No Sibling(s) Family History Reviewed.: No Medication/Allergy Home Medications: Albuterol Sulfate [Proair HFA Inhalation Aerosol 8.5 gm MDI] 2 puff IH Q4HP PRN 11/05/18 Azithromycin [Zithromax Inj 500 mg Vial] 500 mg PO DAILY #5 vial 11/06/18 Famotidine [Pepcid 20 mg Tablet] 20 mg PO Q12 tablet 11/06/18 Fluticasone Propionate [Flonase Nasal [place] 50 Mcg/[place] 16 gm] 2 spray NASL Q12 spray.pump 11/06/18 Allergies/Adverse Reactions: No Known Allergies Allergy (Verified 10/29/18 20:28) Physical Exam Vital Signs: Temp Pulse Resp BP Pulse Ox 97.4 F 69 14 149/74 H 100 11/06/18 07:54 11/06/18 07:55 11/06/18 07:55 11/06/18 07:54 11/06/18 07:55 Intake & Output 11/05/18 11/06/18 11/07/18 06:59 06:59 06:59 Intake Total 200 1871 Output Total 400 1150 Balance -200 721 Weight 64 kg 64.7 kg Results Laboratory Results: 11/06/18 04:49 11/06/18 04:49 11/06/18 11/06/18 04:49 04:49 WBC 5.9 RBC 5.20 Hgb 14.2 Hct 42.2 MCV 81 D MCH 27.3 MCHC 33.6 RDW 14.5 H Plt Count 215 Seg Neutrophils % 90.0 H Lymphocytes % 7.0 L Monocytes % 2.8 L Eosinophils % 0.0 Basophils % 0.2 Absolute Neutrophils 5.3 Absolute Lymphocytes 0.4 L Absolute Monocytes 0.2 Absolute Eosinophils 0.0 Absolute Basophils 0.0 Sodium 141.6 Potassium 5.2 H Chloride 103 Carbon Dioxide 27 Anion Gap 12 BUN 17 Creatinine 0.90 Est GFR ( Amer) > 60 Est GFR (Non-Af Amer) > 60 Glucose 123 H Calcium 10.1 Total Bilirubin 1.1 AST 39 ALT 49 Alkaline Phosphatase 80 Total Protein 7.6 Albumin 4.6 Impressions: Chest X-Ray 11/05/18 00:00 IMPRESSION: No acute findings. No focal lung consolidation. Assessment & Plan - Diagnosis (1) Asthma exacerbation Qualifiers: Asthma severity: unspecified severity Asthma persistence: unspecified Qualified Code(s): J45.901 - Unspecified asthma with (acute) exacerbation Is this a current diagnosis for this admission?: Yes - Notes Notes: Reviewed EKGs, imaging and lab results. Patient appears clinically improved after recent asthma exacerbation. Initial EKG showed sinus tachycardia and repeat EKG showed sinus rhythm with diffuse ST elevation which likely reflects early repolarization pattern which often seen in young individuals. LVH cannot be ruled out. If there is clinical suspicion for pericarditis patient may be evaluated with a CRP level, cardiac biomarkers and a transthoracic echocardiogram. However at this time of my exam, patient has no pericardial rub or symptoms to support a diagnosis of pericarditis. Patient claims that he has a primary care physician Dr. Chance and will recommend he follow with his PCP for a transthoracic echocardiogram at some point to rule out LVH. - Time Time Spent: 30 to 50 Minutes
[2018-11-06 13:38] VITALS: BP 124/64
--- NOTE | 2018-11-06 17:38 | PROGRESS NOTE E ---
Progress Note NAME: PATRICK BARAJAS : 1985 AGE: 33Y DATE: 11/06/2018 ROOM: 309 SUBJECTIVE: The patient is a pleasant 33-year-old male who has a past medical history of schizophrenia and asthma, admitted yesterday with respiratory distress, severe hypoxic hypercapnic respiratory failure. His pH was 7.1 and his CO2 was 68. He was on BIPAP and then treated with steroid, Solu-Medrol nebulizer, and he is improved today. He is comfortable, feeling much better. OBJECTIVE: GENERAL: Patient lying in bed, comfortable, not in distress. VITAL SIGNS: Blood pressure is 149/74, temperature 97.4, heart rate 69, respiratory rate 14, saturation 100% room air. HEENT: Head normocephalic, atraumatic. Pupils round, reactive to light and accommodation bilaterally. Extraocular movements intact. Ears: Tympanic membranes intact bilaterally. No discharge from the ears. No discharge from the nose. NECK: Supple. No increased JVD. No thyromegaly. No lymphadenopathy. CARDIOVASCULAR: Normal S1, S2. Regular rate and rhythm. No murmur, no gallop. RESPIRATORY: Lungs with bilateral few crackles and wheezing. ABDOMEN: Soft. MUSCULOSKELETAL: No edema. LABORATORY DATA: White blood count is 5.9, hemoglobin 14.2. Sodium 140, potassium 5.2, creatinine is 0.9. The pH is 7.3, pCO2 is 45. ASSESSMENT: 1. ACUTE HYPOXIC, HYPERCAPNIC RESPIRATORY FAILURE, SECONDARY TO ASTHMA EXACERBATION, IMPROVED. The patient was initially on BiPAP but is doing better now. He is on saturation of 100% on nasal cannula, on Solu-Medrol nebulizer. Will start DuoNeb. 2. ASTHMA EXACERBATION. He is on nebulizer, steroids, sugar-free, under control. 3. ABNORMAL EKG. Tall T-wave and ST segment elevation. PLAN: 1. Discontinue Solu-Medrol. Will change to prednisone 40 mg p.o. daily and taper. Continue on nebulizer. 2. Consult Cardiology for abnormal EKG. 3. tray worker for placement. The patient is homeless. MEDICAL NECESSITY: The patient needs placement. DICTATING PHYSICIAN: SIMRAN CARREON M.D. [id number] Y#: [id number] ID: [id number] JOB#: [id number] ACCT: [id number] cc: >
[2018-11-07] MEDS ORDERED: PREDNISONE 20 MG TABLET PO SCH (10:00)
[2018-11-07] MEDS ORDERED: PREDNISONE 10 MG TABLET PO SCH (10:00)
--- NOTE | 2018-11-07 12:53 | DISCHARGE SUMMARY E ---
Discharge Summary NAME: PATRICK BARAJAS : 1985 AGE: 33Y ADMITTED: 11/05/2018 DISCHARGED: 11/06/2018 ADMISSION DIAGNOSES: 1. Acute hypercapnic hypoxic respiratory failure. 2. Schizophrenia. 3. COPD exacerbation. 4. Asthma exacerbation. DISCHARGE DIAGNOSES: 1. Acute hypoxic hypercapnic respiratory failure. 2. Asthma exacerbation. 3. Abnormal EKG. CONSULTATIONS: Cardiology consult. HOSPITAL COURSE: The patient is a 33-year-old male who has a past medical history of schizophrenia and asthma, admitted with altered mental status, acute hypoxic respiratory failure, hypercapnic. His CO2 was elevated on admission. He was placed on BiPAP, improved, received steroids, and admitted to the floor. He is now on nasal cannula 2 L, saturating in the mid 90s and doing well. The patient also had abnormal EKG and evaluated by Cardiology. The patient does not have any cardiac symptoms. He is not complaining of any shortness of breath or any chest pain. No history of heart disease. The patient was stable to be discharged home today. Also, the mechanical planner was consulted for the patient's needs. They will arrange medications for tomorrow morning for him, and the patient will be discharged home today. PHYSICAL EXAMINATION: GENERAL: Upon discharge, the patient is lying in bed comfortable, not in distress. VITAL SIGNS: His blood pressure is 126/68, heart rate 85, and temperature 97.8. HEENT: Head is normocephalic, atraumatic. Pupils round, reactive to the light and accommodation bilaterally. Extraocular movements intact. Ears: Tympanic membranes are intact bilaterally. No discharge from the ears. No discharge from the nose. NECK: Supple. No increased JVD. No thyromegaly. No lymphadenopathy. CARDIOVASCULAR: Normal S1, S2. Regular rate and rhythm. No murmur. No gallop. RESPIRATORY: Lungs clear. ABDOMEN: Soft, nontender. MUSCULOSKELETAL: No edema. NEUROLOGIC: Awake, alert. SKIN: No rash. LABORATORY STUDIES: White blood count 5.9, hemoglobin 14, hematocrit 42. Creatinine 0.9, potassium 5.2, sodium 142. DISCHARGE INSTRUCTIONS: Discharge the patient home. Diet: Regular diet. Activity: As tolerated. Followup: Follow up with primary care physician in 1 week. DISCHARGE MEDICATIONS: 1. Prednisone 40 mg daily taper over 2 weeks. 2. Azithromycin 500 mg p.o. daily. 3. Albuterol MDI inhaler 1 puff to 3 puffs 3 times a day. DICTATING PHYSICIAN: SIMRAN CARREON M.D. [id number] PHY#: [id number] ID: [id number] JOB#: [id number] ACCT: [id number] cc:Randi FITZGERALD M.D. >
== END 2018-11-06 14:35 | disposition home or self-care (01) ==
LOC: ER 03:46 → INTOOBSV 06:06 → EH 06:06 → OBSVTOIN 06:06 → 3N 10:36
PROVIDERS: ADMIT Internal Medicine; ATTEND Internal Medicine
DX: J96.02 Acute respiratory failure with hypercapnia (principal); J96.01 Acute respiratory failure with hypoxia; J45.901 Unspecified asthma with (acute) exacerbation; R94.31 Abnormal electrocardiogram [ECG] [EKG]; F20.9 Schizophrenia, unspecified; F17.210 Nicotine dependence, cigarettes, uncomplicated; R00.0 Tachycardia, unspecified; Z59.0 Homelessness; Z90.49 Acquired absence of other specified parts of digestive tract; Z59.6 Low income
CPT/HCPCS: 93005 ×2; 94640 ×4; 99285; 96372; 96375; 96365; 96366; 96367; 36415 ×2; 80307 ×4; 85025 ×2; 80053 ×2; 81001; 82803; 71045; 94799 ×2; 93010 ×2; 94660; 94667; 94668; G0378 ×3; J3490 ×5; J1644 ×2; J2930 ×2; J3475; J7060 ×2; J0456 ×2; J7510; J7620 ×2

== ENCOUNTER 2018-11-12 05:28 | Emergency (ER) | payer MEDICAID ==
[2018-11-12 05:36] VITALS: BP 140/77
[2018-11-12] MEDS ORDERED: ALBUTEROL SULFATE HFA (90 MCG/PUFF) 8 GM MDI (1 MDI/ER DISP) IH ONE (06:12)
--- NOTE | 2018-11-12 06:18 | ER Document Report ---
HPI - HPI Time Seen by Provider: 11/12/18 05:58 Pain Level: 2 Context: Patient is a 33-year-old male with a history of asthma and schizophrenia that comes to the emergency department for chief complaint of wanting to be checked out. He states that he wants his prednisone dose is confirmed and he wants his lungs listened to. He denies shortness of breath, fever, wheezing, or any difficulties. He states that since his discharge home he has been doing much better except for 1 day when he was around people with secondhand smoke. He completed azithromycin reportedly, is taking prednisone, has an albuterol inhaler without a spacer. - REPRODUCTIVE Reproductive: DENIES: : Past Medical History - General Information source: Patient - Social History Smoking Status: Never Smoker Frequency of alcohol use: None Drug Abuse: None Lives with: Friend, Homeless Family History: Reviewed & Not Pertinent, Other - Unknown Pulmonary Medical History: Reports: Hx Asthma Renal/ Medical History: Denies: Hx Peritoneal Dialysis GI Medical History: Reports: Hx Irritable Bowel - constipation Musculoskeletal Medical History: Reports Hx Arthritis, Reports Hx Musculoskeletal Trauma Psychiatric Medical History: Reports: Hx Anxiety, Hx Bipolar Disorder, Hx Depression, Hx Personality Disorder, Hx Schizoaffective Disorder, Hx Schizophrenia Past Surgical History: Reports: Hx Abdominal Surgery, Hx Appendectomy, Hx Cholecystectomy, Hx Orthopedic Surgery - finger - Immunizations Immunizations up to date: Yes Hx Diphtheria, Pertussis, Tetanus Vaccination: Yes - 2012 Hx Pneumococcal Vaccination: 08/23/00 Vertical Provider Document - CONSTITUTIONAL General Appearance: WD/WN, No Apparent Distress - INFECTION CONTROL TRAVEL OUTSIDE OF THE [place] IN LAST 30 DAYS: No - HEENT HEENT: Atraumatic, Normal ENT Exam, Normocephalic - NECK Neck: Normal Inspection - RESPIRATORY Respiratory: Breath Sounds Normal, No Respiratory Distress. negative: Wheezing - CARDIOVASCULAR Cardiovascular: Regular Rate, Regular Rhythm - GI/ABDOMEN Gastrointestinal: Abdomen Soft, Abdomen Non-Tender - BACK Back: Normal Inspection - MUSCULOSKELETAL/EXTREMETIES Musculoskeletal/Extremeties: MAEW, FROM, Non-Tender - NEURO Level of Consciousness: Awake, Alert, Appropriate - DERM Integumentary: Warm, Dry, No Rash Course - Re-evaluation Re-evalutation: Patient smiling and well-appearing. Lungs clear. No hypoxia. No signs of distress. I discussed with patient in detail. He asked for me to write down his remaining doses of prednisone. This was provided. He will also be provided with a spacer and additional short-term inhaler. Patient with no additional requests or complaints. Requesting to leave. Stable at time of discharge. - Vital Signs Vital signs: Temp Pulse Resp BP Pulse Ox 97.4 F 63 17 140/77 H 97 11/12/18 05:33 11/12/18 05:33 11/12/18 05:33 11/12/18 05:33 11/12/18 05:33 Discharge - Discharge Clinical Impression: Asthma Qualifiers: Asthma severity: moderate Asthma persistence: unspecified Asthma complication type: uncomplicated Qualified Code(s): J45.909 - Unspecified asthma, uncomplicated Condition: Stable Disposition: HOME, SELF-CARE Additional Instructions: Take your dose of 3 tablets of prednisone (30 mg) today and tomorrow. Then take 2 tablets for the next 3 days. Then take 1 tablet for the last 3 days. Use your inhaler with the spacer 1-2 puffs every 4-6 hours as needed for cough/wheezing. Follow-up with primary care. Come back if you are worse, develop a fever, or something is not right. Referrals: GIANCARLO CHANCE MD [Primary Care Provider] - Follow up in 3-5 days
== END 2018-11-12 06:30 | disposition home or self-care (01) ==
LOC: ER 05:28
DX: J45.909 Unspecified asthma, uncomplicated (principal); Z90.49 Acquired absence of other specified parts of digestive tract
CPT/HCPCS: 99282; J3490

== ENCOUNTER 2018-11-16 00:24 | Emergency (ER) | payer MEDICAID ==
[2018-11-16 00:52] VITALS: BP 123/66
--- NOTE | 2018-11-16 02:56 | ER Document Report ---
HPI - HPI Patient complains to provider of: medical check Time Seen by Provider: 11/16/18 01:29 Pain Level: 2 Context: Patient is a 33-year-old male well-known to the emergency department presents for a medical check. Patient states he was at this facility a few days ago after a "really bad asthma attack." Patient states he wants to be tested for bronchitis or pneumonia. Patient's denying cough, congestion, fever, respiratory distress. States he just would like someone to listen to his lung sounds. Past medical history: Asthma, schizophrenia Medications: Prednisone, albuterol Allergies: None - REPRODUCTIVE Reproductive: DENIES: : Past Medical History - General Information source: Patient - Social History Smoking Status: Never Smoker Chew tobacco use (# tins/day): No Frequency of alcohol use: None Drug Abuse: None Family History: Reviewed & Not Pertinent, Other - Unknown Patient has suicidal ideation: No Patient has homicidal ideation: No Pulmonary Medical History: Reports: Hx Asthma Renal/ Medical History: Denies: Hx Peritoneal Dialysis GI Medical History: Reports: Hx Irritable Bowel - constipation Musculoskeletal Medical History: Reports Hx Arthritis, Reports Hx Musculoskeletal Trauma Psychiatric Medical History: Reports: Hx Anxiety, Hx Bipolar Disorder, Hx Depression, Hx Personality Disorder, Hx Schizoaffective Disorder, Hx Schizophrenia Past Surgical History: Reports: Hx Abdominal Surgery, Hx Appendectomy, Hx Cholecystectomy, Hx Orthopedic Surgery - finger - Immunizations Immunizations up to date: Yes Hx Diphtheria, Pertussis, Tetanus Vaccination: Yes - 2012 Hx Pneumococcal Vaccination: 08/23/00 Vertical Provider Document - CONSTITUTIONAL Agree With Documented VS: Yes Notes: GENERAL: Alert, interacts well. No acute distress. HEAD: Normocephalic, atraumatic. EYES: Pupils equal, round, and reactive to light. Extraocular movements intact. ENT: Oral mucosa moist, tongue midline. Nares patent, no nasal septal hematoma, TM's intact. NECK: Full range of motion. Supple. Trachea midline. LUNGS: Clear to auscultation bilaterally, no wheezes, rales, or rhonchi. No respiratory distress. HEART: Regular rate and rhythm. No murmur ABDOMEN: Soft, non-tender. Non-distended. Bowel sounds present in all 4 quadrants. EXTREMITIES: Moves all 4 extremities spontaneously. No edema, normal radial and dorsalis pedis pulses bilaterally. No cyanosis. BACK: no cervical, thoracic, lumbar midline tenderness. No saddle anesthesia, normal distal neurovascular exam. NEUROLOGICAL: Alert and oriented x3. Normal speech. cranial nerves II through XII grossly intact. PSYCH: Normal affect, normal mood. SKIN: Warm, dry, normal turgor. No rashes or lesions noted. - INFECTION CONTROL TRAVEL OUTSIDE OF THE [place] IN LAST 30 DAYS: No Course - Re-evaluation Re-evalutation: 11/16/18 02:54 Patient's lung sounds are clear and equal in all garcia with no respiratory distress. Oxygen saturation is at 98% on room air. Patient is on his cell phone in the room in no apparent distress. I do not feel as though there is a need to do a chest x-ray at this time. Patient has had multiple chest x-rays recently. Patient stable for discharge. - Vital Signs Vital signs: Temp Pulse Resp BP Pulse Ox 98.6 F 77 14 123/66 97 11/16/18 00:50 11/16/18 00:50 11/16/18 00:50 11/16/18 00:50 11/16/18 00:50 Discharge - Discharge Clinical Impression: Feared condition not demonstrated Condition: Stable Disposition: HOME, SELF-CARE Additional Instructions: As we discussed your lung sounds are clear and equal in all garcia at today's visit. I do not suspect bronchitis or pneumonia. Please make sure you continue to take the medications that Dr. Chance gave you as prescribed. Please re turn to the emergency room should you have any other concerning symptoms. Referrals: GIANCARLO CHANCE MD [Primary Care Provider] - Follow up as needed
== END 2018-11-16 02:59 | disposition home or self-care (01) ==
LOC: ER 00:24
DX: J45.909 Unspecified asthma, uncomplicated (principal); Z79.899 Other long term (current) drug therapy; Z79.52 Long term (current) use of systemic steroids
CPT/HCPCS: 99283

== ENCOUNTER 2018-11-18 21:02 | Emergency (ER) | payer MEDICAID ==
[2018-11-18] MEDS ORDERED: IPRATROPIUM/ALBUTEROL 0.5-2.5 MG/3 ML AMPUL NEB ONE (23:55)
[2018-11-18] MEDS ORDERED: PREDNISONE 20 MG TABLET PO ONE (23:55)
--- NOTE | 2018-11-18 23:57 | ER Document Report ---
ED Medical Screen (RME) - General Chief Complaint: Shortness Of Breath Stated Complaint: BREATHING ISSUE Time Seen by Provider: 11/18/18 23:55 Primary Care Provider: GIANCARLO CHANCE MD [Primary Care Provider] - Follow up as needed Notes: 33-year-old male with a history of asthma and schizophrenia, chief complaint of some shortness of breath and cough, states he wants to be checked for pneumonia. TRAVEL OUTSIDE OF THE [place] IN LAST 30 DAYS: No - Related Data Allergies/Adverse Reactions: No Known Allergies Allergy (Verified 10/29/18 20:28) Past Medical History - Social History Family history: Reviewed & Not Pertinent Pulmonary Medical History: Reports: Hx Asthma Renal/ Medical History: Denies: Hx Peritoneal Dialysis GI Medical History: Reports: Hx Irritable Bowel - constipation Musculoskeltal Medical History: Reports Hx Arthritis, Reports Hx Musculoskeletal Trauma Psychiatric Medical History: Reports: Hx Anxiety, Hx Bipolar Disorder, Hx D epression, Hx Personality Disorder, Hx Schizoaffective Disorder, Hx Schizophrenia Past Surgical History: Reports: Hx Abdominal Surgery, Hx Appendectomy, Hx Cholecystectomy, Hx Orthopedic Surgery - finger - Immunizations Immunizations up to date: Yes Hx Diphtheria, Pertussis, Tetanus Vaccination: Yes - 2012 Physical Exam - Vital signs Vitals: Temp Pulse Resp BP Pulse Ox 98.5 F 85 18 118/69 94 11/18/18 21:29 11/18/18 21:11/18/18 21:11/18/18 21:11/18/18 21:29 - Respiratory Respiratory status: No: Respiratory distress, Labored, Tachypnea, Tripod position Breath sounds: Decreased air movement, Nonproductive cough, Wheezing Course - Re-evaluation Re-evalutation: Patient with expiratory wheezes throughout. Oxygenation at 94% saturation. However he is able to talk in complete sentences, ambulate without difficulty, no fever. I have greeted and performed a rapid initial assessment of this patient. A comprehensive ED assessment and evaluation of the patient, analysis of test results and completion of the medical decision making process will be conducted by additional ED providers. - Vital Signs Vital signs: Temp Pulse Resp BP Pulse Ox 98.5 F 85 18 118/69 94 11/18/18 21:29 11/18/18 21:11/18/18 21:29 11/18/18 21:29 11/18/18 21:29 Doctor's Discharge - Discharge Referrals: GIANCARLO CHANCE MD [Primary Care Provider] - Follow up as needed
--- NOTE | 2018-11-19 01:17 | RADIOLOGY REPORT (SQ) ---
CLINICAL HISTORY: shortness of breath, cough, hypoxia COMPARISON: None. TECHNIQUE: XR CHEST 2 VIEWS 11/18/2018 11:55 PM CDT FINDINGS: Cardiac silhouette is normal in size. Lungs are clear without consolidation, atelectasis, mass or edema. There is no pleural effusion. There is no pneumothorax. There are no acute osseous findings. IMPRESSION: Clear lungs.
--- NOTE | 2018-11-19 02:40 | ER Document Report ---
ED General - General Chief Complaint: Shortness Of Breath Stated Complaint: BREATHING ISSUE Time Seen by Provider: 11/18/18 23:55 Primary Care Provider: GIANCARLO CHANCE MD [Primary Care Provider] - Follow up as needed Notes: Patient is a 33-year-old homeless man, very well-known to this emergency department very frequent visits presents complaining of shortness of breath and cough. Patient presents for this several times monthly. Describes his symptoms as mild to moderate. Started gradually, have been constant since onset. Patient states that his symptoms have been ongoing, unchanged today. Has used an albuterol inhaler at home with some improvement. Nothing seems to worsen his symptoms although he states that when the air gets cold it seems to trigger them. Was hospitalized last month for an asthma exacerbation. Has not seen his primary doctor regarding today's concerns. Denies smoking. Denies fever or constitutional symptoms. TRAVEL OUTSIDE OF THE [place] IN LAST 30 DAYS: No - Related Data Allergies/Adverse Reactions: No Known Allergies Allergy (Verified 11/19/18 00:38) Past Medical History - General Information source: Patient - Social History Smoking Status: Never Smoker Frequency of alcohol use: None Drug Abuse: None Lives with: Homeless Family History: Reviewed & Not Pertinent, Other - Unknown Patient has suicidal ideation: No Patient has homicidal ideation: No Pulmonary Medical History: Reports: Hx Asthma Renal/ Medical History: Denies: Hx Peritoneal Dialysis GI Medical History: Reports: Hx Irritable Bowel - constipation Musculoskeletal Medical History: Reports Hx Arthritis, Reports Hx Musculoskeletal Trauma Psychiatric Medical History: Reports: Hx Anxiety, Hx Bipolar Disorder, Hx Depression, Hx Personality Disorder, Hx Schizoaffective Disorder, Hx Schizophrenia Past Surgical History: Reports: Hx Abdominal Surgery, Hx Appendectomy, Hx Cholecystectomy, Hx Orthopedic Surgery - finger - Immunizations Immunizations up to date: Yes Hx Diphtheria, Pertussis, Tetanus Vaccination: Yes - 2012 Hx Pneumococcal Vaccination: 08/23/00 Review of Systems - Review of Systems Notes: Constitutional: Negative for fever. HENT: Negative for sore throat. Eyes: Negative for visual changes. Cardiovascular: Negative for chest pain. Respiratory: Positive shortness of breath Gastrointestinal: Negative for abdominal pain, vomiting or diarrhea. Genitourinary: Negative for dysuria. Musculoskeletal: Negative for back pain. Skin: Negative for rash. Neurological: Negative for headaches, weakness or numbness. 10 point ROS negative except as marked above and in HPI. Physical Exam - Vital signs Vitals: Temp Pulse Resp BP Pulse Ox 98.5 F 85 18 118/69 94 11/18/18 21:29 11/18/18 21:29 11/18/18 21:29 11/18/18 21:29 11/18/18 21:29 Interpretation: Normal Notes: PHYSICAL EXAMINATION: GENERAL: Well-appearing, well-nourished and in no acute distress. HEAD: Atraumatic, normocephalic. EYES: Pupils equal round and reactive to light, extraocular movements intact, sclera anicteric, conjunctiva are normal. ENT: nares patent, oropharynx clear without exudates. Moist mucous membranes. NECK: Normal range of motion, supple without lymphadenopathy LUNGS: Breath sounds clear to auscultation bilaterally and equal. No wheezes rales or rhonchi. HEART: Regular rate and rhythm without murmurs ABDOMEN: Soft, nontender, normoactive bowel sounds. No guarding, no rebound. No masses appreciated. EXTREMITIES: Normal range of motion, no pitting or edema. No cyanosis. NEUROLOGICAL: No focal neurological deficits. Moves all extremities spontaneously and on command. PSYCH: Normal mood, normal affect. SKIN: Warm, Dry, normal turgor, no rashes or lesions noted. Course - Re-evaluation Re-evalutation: 11/19/18 02:37 Patient presents with a mild exacerbation of their baseline asthma. Mild wheezing at time of presentation but vitals do not show significant hypoxemia or tachypnea. No retractions. Patient did clinically improve after receiving nebulizers here in the emergency department. Chest x-ray without evidence of an acute pneumonia. Patient able to ambulate without any respiratory distress. Based on patient's overall reassuring assessment, I believe they are stable for outpatient management with steroids. I do not suspect an acute alternative pathology at this time based on history and exam including acute pulmonary e mbolus, ACS, pneumothorax, or aortic dissection. At this time will discharge with return precautions and follow-up recommendations. Verbal discharge instructions given a the bedside and opportunity for questions given. Medication warnings reviewed. Patient is in agreement with this plan and has verbalized understanding of return precautions and the need for primary care follow-up in the next 24-72 hours. - Vital Signs Vital signs: Temp Pulse Resp BP Pulse Ox 98.1 F 76 20 121/73 94 11/19/18 03:11 11/19/18 03:11 11/19/18 03:11 11/19/18 03:11 11/19/18 03:11 - Diagnostic Test Radiology reviewed: Image reviewed, Reports reviewed Radiology results interpreted by me: 11/19/18 02:37 Chest x-ray: No acute infiltrate pneumothorax Discharge - Discharge Clinical Impression: Asthma exacerbation Qualifiers: Asthma severity: mild Asthma persistence: persistent Qualified Code(s): J45.31 - Mild persistent asthma with (acute) exacerbation Condition: Good Disposition: HOME, SELF-CARE Additional Instructions: You were seen for an asthma exacerbation. Your symptoms improved with treatment here in the emergency department. However, it is very important that you return to the emergency department immediately if you began to have worsening difficul ty breathing that does not respond to your normal home nebulizers. You are also being sent home on a five-day course of steroids that you should start taking tomorrow. Please also follow closely with your primary care physician. you should also return to emergency department if you develop fever greater than 101, persistent cough, persistent vomiting, pass out, or any other symptoms that are concerning to you. Prescriptions: Prednisone [Deltasone 20 mg Tablet] 2 tab PO DAILY 5 Days tablet Referrals: GIANCARLO CHANCE MD [Primary Care Provider] - Follow up as needed
[2018-11-19 03:12] VITALS: BP 121/73
== END 2018-11-19 03:14 | disposition home or self-care (01) ==
LOC: ER 21:02
DX: J45.31 Mild persistent asthma with (acute) exacerbation (principal); R06.02 Shortness of breath; R05 Cough; Z59.0 Homelessness
CPT/HCPCS: 94640; 99285; 71046; J7512; J7620

== ENCOUNTER 2018-11-20 18:57 | Emergency (ER) | payer MEDICAID ==
[2018-11-20 19:14] VITALS: BP 121/77
--- NOTE | 2018-11-20 19:34 | ER Document Report ---
ED General - General Chief Complaint: Nausea Stated Complaint: NAUSEA Time Seen by Provider: 11/20/18 19:31 Primary Care Provider: GIANCARLO CHANCE MD [Primary Care Provider] - Follow up as needed Mode of Arrival: Ambulatory Information source: Patient TRAVEL OUTSIDE OF THE [place] IN LAST 30 DAYS: No - HPI Patient complains to provider of: anxiety Onset: This morning - pt states he breathed in someone's elses breath and initially felt anxious. Feels better now - Related Data Allergies/Adverse Reactions: No Known Allergies Allergy (Verified 11/20/18 19:02) Past Medical History - Social History Smoking Status: Never Smoker Cigarette use (# per day): No Chew tobacco use (# tins/day): No Smoking Education Provided: No Family History: Reviewed & Not Pertinent, Other - Unknown Pulmonary Medical History: Reports: Hx Asthma Renal/ Medical History: Denies: Hx Peritoneal Dialysis GI Medical History: Reports: Hx Irritable Bowel - constipation Musculoskeletal Medical History: Reports Hx Arthritis, Reports Hx Musculoskeletal Trauma Psychiatric Medical History: Reports: Hx Anxiety, Hx Bipolar Disorder, Hx Depression, Hx Personality Disorder, Hx Schizoaffective Disorder, Hx Schizophrenia Past Surgical History: Reports: Hx Abdominal Surgery, Hx Appendectomy, Hx Cholecystectomy, Hx Orthopedic Surgery - finger - Immunizations Immunizations up to date: Yes Hx Diphtheria, Pertussis, Tetanus Vaccination: Yes - 2012 Hx Pneumococcal Vaccination: 08/23/00 Review of Systems - Review of Systems Constitutional: No symptoms reported EENT: No symptoms reported Cardiovascular: No symptoms reported Gastrointestinal: No symptoms reported Neurological/Psychological: Anxiety -: Yes All other systems reviewed and negative Physical Exam - Vital signs Vitals: Temp Pulse Resp BP Pulse Ox 97.9 F 66 17 121/77 94 11/20/18 19:13 11/20/18 19:13 11/20/18 19:13 11/20/18 19:13 11/20/18 19:13 - General General appearance: Appears well In distress: None - HEENT Head: Normocephalic Pharynx: Normal Neck: Normal - Respiratory Respiratory status: No respiratory distress Breath sounds: Normal - Cardiovascular Rhythm: Regular Heart sounds: Normal auscultation - Abdominal Inspection: Normal Bowel sounds: Normal Course - Vital Signs Vital signs: Temp Pulse Resp BP Pulse Ox 97.9 F 66 17 121/77 94 11/20/18 19:13 11/20/18 19:13 11/20/18 19:13 11/20/18 19:13 11/20/18 19:13 Discharge - Discharge Clinical Impression: Anxiety Condition: Stable Disposition: HOME, SELF-CARE Additional Instructions: rest, take meds as prescribed, return if worse Referrals: GIANCARLO CHANCE MD [Primary Care Provider] - Follow up as needed
== END 2018-11-20 19:34 | disposition home or self-care (01) ==
LOC: ER 18:57
DX: F41.9 Anxiety disorder, unspecified (principal); J45.909 Unspecified asthma, uncomplicated
CPT/HCPCS: 99283

== ENCOUNTER 2018-11-21 18:09 | Emergency (ER) | payer MEDICAID ==
[2018-11-21] MEDS ORDERED: ALBUTEROL SULFATE HFA (90 MCG/PUFF) 8 GM MDI (1 MDI/ER DISP) IH ONE (20:00)
--- NOTE | 2018-11-21 20:05 | ER Document Report ---
HPI - HPI Time Seen by Provider: 11/21/18 20:00 Pain Level: 2 Notes: Patient is a 33-year-old female who presents to the emergency department requesting an albuterol inhaler. Patient reports past medical history of asthma, states he has been out for several weeks. Patient denies any acute complaints today. - REPRODUCTIVE Reproductive: DENIES: : Past Medical History - General Information source: Patient - Social History Smoking Status: Never Smoker Frequency of alcohol use: None Drug Abuse: None Family History: Reviewed & Not Pertinent, Other - Unknown Pulmonary Medical History: Reports: Hx Asthma Renal/ Medical History: Denies: Hx Peritoneal Dialysis GI Medical History: Reports: Hx Irritable Bowel - constipation Musculoskeletal Medical History: Reports Hx Arthritis, Reports Hx Musculoskeletal Trauma Psychiatric Medical History: Reports: Hx Anxiety, Hx Bipolar Disorder, Hx Depression, Hx Personality Disorder, Hx Schizoaffective Disorder, Hx Schizophrenia Past Surgical History: Reports: Hx Abdominal Surgery, Hx Appendectomy, Hx Cholecystectomy, Hx Orthopedic Surgery - finger - Immunizations Immunizations up to date: Yes Hx Diphtheria, Pertussis, Tetanus Vaccination: Yes - 2012 Hx Pneumococcal Vaccination: 08/23/00 Vertical Provider Document - CONSTITUTIONAL Notes: PHYSICAL EXAMINATION: GENERAL: Well-appearing, well-nourished and in no acute distress. HEAD: Atraumatic, normocephalic. EYES: Pupils equal round extraocular movements intact, conjunctiva are normal. ENT: Nares patent NECK: Normal range of motion LUNGS: No respiratory distress, slight expiratory wheeze noted, no increased work of breathing. Musculoskeletal: Normal range of motion NEUROLOGICAL: Normal speech, normal gait. PSYCH: Normal mood, normal affect. SKIN: Warm, Dry, normal turgor, no rashes or lesions noted. - INFECTION CONTROL TRAVEL OUTSIDE OF THE [place] IN LAST 30 DAYS: No Course - Re-evaluation Re-evalutation: 11/21/18 20:05 Patient will be sent home with an albuterol inhaler. Patient's physical examination is reassuring. Encourage patient to return if he develops any new or worsening symptoms. - Vital Signs Vital signs: Temp Pulse Resp BP Pulse Ox 98.1 F 104 H 14 133/79 H 99 11/21/18 18:31 11/21/18 18:31 11/21/18 18:31 11/21/18 18:31 04/01/19 18:31 Discharge - Discharge Clinical Impression: Medication refill Condition: Stable Disposition: HOME, SELF-CARE Additional Instructions: You are being sent home with an albuterol inhaler. Take 2 puffs every 4 hours as needed for any shortness of breath or wheezing. Return to the emergency department for any new or worsening symptoms. Referrals: GIANCARLO CHANCE MD [Primary Care Provider] - Follow up as needed
[2018-11-21 20:30] VITALS: BP 123/68
== END 2018-11-21 20:30 | disposition home or self-care (01) ==
LOC: ER 18:09
DX: Z76.0 Encounter for issue of repeat prescription (principal)
CPT/HCPCS: 99281; J3490

== ENCOUNTER 2018-11-27 20:09 | Emergency (ER) | payer MEDICAID ==
[2018-11-27 21:26] LABS: ABSOLUTE EOSINOPHILS # (AUTO) 0.4 10^3/uL (0.0-0.6); ABSOLUTE LYMPHOCYTES (AUTO) 1.5 10^3/uL (0.5-4.7); ABSOLUTE MONOCYTES (AUTO) 0.3 10^3/uL (0.1-1.4); ABSOLUTE NEUT (AUTO) 1.7 10^3/uL (1.7-8.2); HEMOGLOBIN 13.1 g/dL (13.5-17.0); LYMPHOCYTES % (AUTO) 38.2 % (13-45); MEAN CORPUSCULAR HEMOGLOBIN 27.8 pg (27.0-33.4); MEAN CORPUSCULAR HGB CONC 33.7 g/dL (32.0-36.0); MEAN CORPUSCULAR VOLUME 82 fl (80-97); MONOCYTES % (AUTO) 8.4 % (3-13); PLATELET COUNT 225 10^3/uL (150-450); RED BLOOD COUNT 4.73 10^6/uL (4.35-5.55); RED CELL DISTRIBUTION WIDTH 14.7 % (11.5-14.0); SEGMENTED NEUTROPHILS % (AUTO) 43.4 % (42-78); TOTAL CELLS COUNTED % (AUTO) 100 %; WHITE BLOOD COUNT 3.9 10^3/uL (4.0-10.5)
--- NOTE | 2018-11-27 21:37 | ER Document Report ---
ED General - General Chief Complaint: Headache Stated Complaint: HEADACHE Time Seen by Provider: 11/27/18 21:27 Primary Care Provider: GIANCARLO CHANCE MD [Primary Care Provider] - Follow up as needed Mode of Arrival: Ambulatory TRAVEL OUTSIDE OF THE [place] IN LAST 30 DAYS: No - HPI Patient complains to provider of: Belching Notes: Patient is here with complaints of some belching. He states that today like his stomach was "wild" and has been belching a lot. One time he thought that when he belches smelled like stool. He denies any abdominal pain. He denies any nausea or vomiting. He denies any diarrhea. He had 2 bowel movements today which were normal. No fevers. No rash. No chest pain or shortness of breath. He does have a history of asthma. He recently finished a course of steroids due to asthma exacerbation. He reports a very mild frontal headache, denies any sudden onset of this headache. No blurred or loss vision. No photophobia. No unilateral numbness, tingling, weakness. His biggest concern was that he needed to have some blood work drawn to make sure everything looked okay in his body. He denies any other specific complaints at this moment. - Related Data Allergies/Adverse Reactions: No Known Allergies Allergy (Verified 11/21/18 18:16) Past Medical History - Social History Smoking Status: Unknown if Ever Smoked Family History: Reviewed & Not Pertinent, Other - Unknown Patient has suicidal ideation: No Patient has homicidal ideation: No Pulmonary Medical History: Reports: Hx Asthma Renal/ Medical History: Denies: Hx Peritoneal Dialysis GI Medical History: Reports: Hx Irritable Bowel - constipation Musculoskeletal Medical History: Reports Hx Arthritis, Reports Hx Musculoskeletal Trauma Psychiatric Medical History: Reports: Hx Anxiety, Hx Bipolar Disorder, Hx D epression, Hx Personality Disorder, Hx Schizoaffective Disorder, Hx Schizophrenia Past Surgical History: Reports: Hx Abdominal Surgery, Hx Appendectomy, Hx Cholecystectomy, Hx Orthopedic Surgery - finger - Immunizations Immunizations up to date: Yes Hx Diphtheria, Pertussis, Tetanus Vaccination: Yes - 2012 Hx Pneumococcal Vaccination: 08/23/00 Review of Systems - Review of Systems -: Yes All other systems reviewed and negative Physical Exam - Vital signs Vitals: Temp Pulse Resp BP Pulse Ox 98.0 F 65 17 118/78 98 11/27/18 20:34 11/27/18 20:34 11/27/18 20:34 11/27/18 20:34 11/27/18 20:34 - Notes Notes: GENERAL: alert, cooperative, nontoxic, no distress. HEAD: normocephalic, atraumatic EYES: conjunctiva pink without discharge, no external redness or swelling. EARS: no external swelling, no external redness NOSE: atraumatic, no external swelling MOUTH/THROAT: mucous membranes moist and pink, posterior pharynx without erythema, swelling, exudate. No trismus or drooling. NECK: soft, supple, full range of motion, no meningismus. CHEST: no distress, lungs equal throughout. Diffuse scattered expiratory wheezes noted throughout. Good air movement. No rales, rhonchi. CARDIAC: regular rate and rhythm, no murmur, normal capillary refill, normal pulses. No peripheral edema noted. ABDOMEN: Soft, nontender. Flat, no rebound tenderness or guarding. No mass. BACK: full range of motion, no CVA tenderness. EXTREMITIES: full range of motion of all extremities. No redness, no swelling. NEURO: alert and oriented x 3, no focal deficits, full range of motion of all extremities. PYSCH: appropriate mood, affect. Patient is cooperative. SKIN: pink, warm, dry, no rash. Course - Re-evaluation Re-evalutation: 11/27/18 23:51 Patient nontoxic-appearing with stable vitals. Patient here with complaints of mild headache. No injury, no blood thinners, no fever, nonfocal exam. Not sudden onset or thunderclap in nature. No concern for subarachnoid hemorrhage, meningitis or other serious cause of his headache. Also complaining of some belching and thought he smelled some stool with 1 of his belches. His abdominal exam is benign with no tenderness. Said no vomiting. He has had a bowel movement today. Lab work is unremarkable for any significant abnormalities. Urinalysis is remarkable. Acute abdominal series shows constipation with no other acute abnormalities. Patient was noted to have some mild wheezing was given a breathing treatment here in the emergency department. He has a history of asthma. At this point the patient will be discharged home with prescription for MiraLAX as well as albuterol inhaler. Follow-up with primary care at the next available appointment for reevaluation. Follow-up sooner for worsening symptoms, high fever, persistent vomiting, severe abdominal pain, difficulty breathing, or for any further concerns. The patient's emergency department workup and current diagnosis were explained to the patient and or family. Follow-up instructions were provided. Medi cations if prescribed were discussed. Instructions for when to return to the emergency department including specific worrisome symptoms were discussed with the patient and/or family. - Vital Signs Vital signs: Temp Pulse Resp BP Pulse Ox 98.0 F 65 17 118/78 98 11/27/18 20:34 11/27/18 20:34 11/27/18 20:34 11/27/18 20:34 11/27/18 20:34 - Laboratory Result Diagrams: 11/27/18 21:15 11/27/18 21:15 Laboratory results interpreted by me: 11/27/18 11/27/18 21:15 21:15 WBC 3.9 L Hgb 13.1 L RDW 14.7 H Eosinophils % 9.0 H Carbon Dioxide 34 H Anion Gap 3 L - Diagnostic Test Radiology reviewed: Image reviewed, Reports reviewed - acute abdominal series shows constipation. Discharge - Discharge Clinical Impression: Constipation Qualifiers: Constipation type: unspecified constipation type Qualified Code(s): K59.00 - Constipation, unspecified Asthma Qualifiers: Asthma severity: mild Asthma persistence: intermittent Asthma complication type: unspecified Qualified Code(s): J45.20 - Mild intermittent asthma, uncomplicated Condition: Stable Disposition: HOME, SELF-CARE Instructions: Constipation ([facility]), Asthma ([facility]) Additional Instructions: Take medication as prescribed. Follow-up with your doctor at the next available appointment. Follow-up sooner for any worsening symptoms, high fever, persistent vomiting, or for any further concerns. Prescriptions: Albuterol Sulfate [Proair HFA Inhalation Aerosol 8.5 gm MDI] 2 puff IH Q4H PRN #1 mdi PRN Reason: Polyethylene Glycol 3350 [Miralax] 1 cap PO DAILY #1 bottle Referrals: GIANCARLO CHANCE MD [Primary Care Provider] - Follow up as needed
[2018-11-27] MEDS ORDERED: IPRATROPIUM/ALBUTEROL 0.5-2.5 MG/3 ML AMPUL NEB ONE (21:40)
[2018-11-27 21:44] LABS: BLOOD UREA NITROGEN 18 mg/dL (7-20); CALCIUM 9.5 mg/dL (8.4-10.2); GLUCOSE 84 mg/dL (75-110); POTASSIUM 4.5 mmol/L (3.6-5.0)
[2018-11-27 21:50] LABS: CARBON DIOXIDE 34 mmol/L (22-30); CHLORIDE 101 mmol/L (98-107); SODIUM 138.3 mmol/L (137-145)
[2018-11-27 21:51] LABS: ANION GAP 3 (5-19); APPEARANCE,URINE CLEAR; BILIRUBIN,URINE NEGATIVE (NEGATIVE); COLOR,URINE STRAW; GLUCOSE, URINE NEGATIVE (NEGATIVE); KETONES,URINE NEGATIVE (NEGATIVE); LEUKOCYTE ESTERASE,URINE NEGATIVE (NEGATIVE); NITRITE,URINE NEGATIVE (NEGATIVE); PROTEIN,URINE NEGATIVE (NEGATIVE); URINE SPECIFIC GRAVITY 1.006; UROBILINOGEN,URINE NEGATIVE mg/dL (<2.0)
--- NOTE | 2018-11-27 22:43 | RADIOLOGY REPORT (SQ) ---
EXAM DESCRIPTION: XR ABDOMEN SUPINE AND ERECT WITH CHEST (ABD ACUTE SERIES) COMPLETED DATE/TME: 11/27/2018 21:34 CLINICAL HISTORY: 33 years, Male, belching, smells stool EXAM DESCRIPTION: CLINICAL HISTORY: 33 years Male ,belching, smells stool COMPARISON: None. TECHNIQUE: Two views of the abdomen were provided.. FINDINGS: The lungs are clear and heart size normal. There is moderate stool in the colon. No free air is identified beneath the hemidiaphragms. No dilated loops of bowel to suggest obstruction. No abnormal calcifications noted. IMPRESSION: Constipation.
[2018-11-28 00:37] VITALS: BP 107/58
== END 2018-11-28 00:48 | disposition home or self-care (01) ==
LOC: ER 20:09
DX: J45.20 Mild intermittent asthma, uncomplicated (principal); K59.00 Constipation, unspecified; R51 Headache; Z90.49 Acquired absence of other specified parts of digestive tract
CPT/HCPCS: 94640; 99284; 36415; 85025; 80048; 81001; 74022; J7620

== ENCOUNTER 2018-11-30 05:08 | Emergency (ER) | payer MEDICAID, OTHER ==
--- NOTE | 2018-11-30 07:12 | ER Document Report ---
HPI - HPI Time Seen by Provider: 11/30/18 07:05 Pain Level: 1 Context: Patient is a 33-year-old male that comes to the emergency department for chief complaint of a bug bite on his forehead. He states this happened earlier today, he states he just wants it checked to make sure it is not infected. He denies any significant itching, denies pain to the area, denies any other complaints. Denies fever or chills, nausea or vomiting. - REPRODUCTIVE Reproductive: DENIES: : Past Medical History - General Information source: Patient - Social History Smoking Status: Never Smoker Frequency of alcohol use: None Drug Abuse: None Lives with: Friend Family History: Reviewed & Not Pertinent, Other - Unknown Patient has suicidal ideation: No Patient has homicidal ideation: No Pulmonary Medical History: Reports: Hx Asthma Renal/ Medical History: Denies: Hx Peritoneal Dialysis GI Medical History: Reports: Hx Irritable Bowel - constipation Musculoskeletal Medical History: Reports Hx Arthritis, Reports Hx Musculoskeletal Trauma Psychiatric Medical History: Reports: Hx Anxiety, Hx Bipolar Disorder, Hx Depression, Hx Personality Disorder, Hx Schizoaffective Disorder, Hx Schizophrenia Past Surgical History: Reports: Hx Abdominal Surgery, Hx Appendectomy, Hx Cholecystectomy, Hx Orthopedic Surgery - finger - Immunizations Immunizations up to date: Yes Hx Diphtheria, Pertussis, Tetanus Vaccination: Yes - 2012 Hx Pneumococcal Vaccination: 08/23/00 Vertical Provider Document - CONSTITUTIONAL General Appearance: WD/WN, No Apparent Distress - INFECTION CONTROL TRAVEL OUTSIDE OF THE [place] IN LAST 30 DAYS: No - HEENT HEENT: Atraumatic, Normal ENT Exam, Normocephalic - NECK Neck: Normal Inspection - RESPIRATORY Respiratory: Breath Sounds Normal, No Respiratory Distress - CARDIOVASCULAR Cardiovascular: Regular Rate, Regular Rhythm - GI/ABDOMEN Gastrointestinal: Abdomen Soft, Abdomen Non-Tender - BACK Back: Normal Inspection - NEURO Level of Consciousness: Awake, Alert, Appropriate Motor/Sensory: No Motor Deficit, No Sensory Deficit - DERM Integumentary: Warm - Isolated insect bite approximately at the mid forehead, minimal erythema, no induration, fluctuance, spreading erythema, tenderness. Course - Re-evaluation Re-evalutation: Patient does have evidence of a mosquito bite on his forehead. This is very benign, there is no significant swelling, there is no erythema, tenderness, induration, fluctuance. Recommended antihistamines. Patient persistently asking for an ultrasound to be placed over the area to check it, he has had this in the past with other locations. I did oblige, bedside ultrasound performed, no evidence of abscess or concerning finding at this time. Patient very satisfied with this, declines antihistamines, requests to leave. - Vital Signs Vital signs: Temp Pulse Resp BP Pulse Ox 97.4 F 48 L 16 123/77 100 11/30/18 05:16 11/30/18 05:16 11/30/18 05:16 11/30/18 05:16 11/30/18 05:16 Discharge - Discharge Clinical Impression: Insect bite Qualifiers: Encounter type: initial encounter Site of insect bite: head Site of insect bite of head: other part Qualified Code(s): S00.96XA - Insect bite (nonvenomous) of unspecified part of head, initial encounter Condition: Stable Disposition: HOME, SELF-CARE Additional Instructions: There is no sign of infection or concerning abnormality with the insect bite. You can take [id number] antihistamine such as cetirizine for itching. Follow-up with primary care. Return for any concerning symptoms including swelling, redness, pain to the area. Referrals: GIANCARLO CHANCE MD [Primary Care Provider] - Follow up as needed
[2018-11-30 07:20] VITALS: BP 119/67
== END 2018-11-30 07:19 | disposition home or self-care (01) ==
LOC: ER 05:08
DX: S00.86XA Insect bite (nonvenomous) of other part of head, initial encounter (principal); W57.XXXA Bitten or stung by nonvenomous insect and other nonvenomous arthropods, initial encounter; J45.909 Unspecified asthma, uncomplicated
CPT/HCPCS: 99283

== ENCOUNTER 2018-12-04 10:45 | Emergency (ER) | payer MEDICAID ==
[2018-12-04 10:57] VITALS: BP 130/74
--- NOTE | 2018-12-04 11:41 | ER Document Report ---
HPI - HPI Time Seen by Provider: 12/04/18 11:00 Pain Level: 2 Context: Patient is a [id number]-old male who presents to the emergency department with a chief complaint of a "black janes on his arm." He states that he noticed that about 3 days ago. He denies any pain or pruritus. He states that he is not had it before. Denies any possible insect bite to the area. He is unsure of whether or not he had brushed up against something or not. He is also inquiring about a new inhaler for his asthma. Denies any shortness of breath or difficulty breathing. - CONSTITUTIONAL Constitutional: DENIES: Fever, Chills - EENT EENT: DENIES: Sore Throat - NEURO Neurology: DENIES: Headache - CARDIOVASCULAR Cardiovascular: DENIES: Chest pain - RESPIRATORY Respiratory: DENIES: Trouble Breathing, Coughing - GASTROINTESTINAL Gastrointestinal: DENIES: Abdominal Pain - REPRODUCTIVE Reproductive: DENIES: : - MUSCULOSKELETAL Musculoskeletal: DENIES: Extremity pain - DERM Skin Color: Normal Skin Problems: Bruise - Possible bruise to left forearm Past Medical History - Social History Smoking Status: Unknown if Ever Smoked Family History: Reviewed & Not Pertinent, Other - Unknown Pulmonary Medical History: Reports: Hx Asthma Renal/ Medical History: Denies: Hx Peritoneal Dialysis GI Medical History: Reports: Hx Irritable Bowel - constipation Musculoskeletal Medical History: Reports Hx Arthritis, Reports Hx Musculoskeletal Trauma Psychiatric Medical History: Reports: Hx Anxiety, Hx Bipolar Disorder, Hx Depression, Hx Personality Disorder, Hx Schizoaffective Disorder, Hx Schizophrenia Past Surgical History: Reports: Hx Abdominal Surgery, Hx Appendectomy, Hx Cholecystectomy, Hx Orthopedic Surgery - finger - Immunizations Immunizations up to date: Yes Hx Diphtheria, Pertussis, Tetanus Vaccination: Yes - 2012 Hx Pneumococcal Vaccination: 08/23/00 Vertical Provider Document - CONSTITUTIONAL Agree With Documented VS: Yes Exam Limitations: No Limitations General Appearance: No Apparent Distress - INFECTION CONTROL TRAVEL OUTSIDE OF THE [place] IN LAST 30 DAYS: No - HEENT HEENT: Atraumatic, Normocephalic - NECK Neck: Normal Inspection - RESPIRATORY Respiratory: Breath Sounds Normal, No Respiratory Distress - CARDIOVASCULAR Cardiovascular: Regular Rate, Tachycardia Pulses: Normal: Radial - MUSCULOSKELETAL/EXTREMETIES Musculoskeletal/Extremeties: RGIO MCBRIDE - NEURO Level of Consciousness: Awake, Alert, Appropriate Motor/Sensory: No Motor Deficit, No Sensory Deficit - DERM Integumentary: Warm - Small darkened area noted to left forearm, consistent with bruise, Dry Course - Re-evaluation Re-evalutation: 12/04/18 11:35 Patient's physical exam is consistent with a bruise to the area he denies any pain. I do not suspect this is a rash at all. Follow-up precautions were given. Verbal discharge instructions were given to the patient. They verbalized understanding. They are stable for discharge. - Vital Signs Vital signs: Temp Pulse Resp BP Pulse Ox 98.1 F 65 16 130/74 H 96 12/04/18 10:56 12/04/18 10:56 12/04/18 10:56 12/04/18 10:56 12/04/18 10:56 Discharge - Discharge Clinical Impression: Asthma Condition: Stable Disposition: HOME, SELF-CARE Additional Instructions: You were seen today in the emergency department for a janes on your arm. Make sure you use lotion every day. The janes may be a bruise. You have been given an albuterol inhaler for your asthma. Use 1 puff every 4-6 hours as needed for shortness of breath. Follow-up with your primary care provider in regards to this visit. Referrals: GIANCARLO CHANCE MD [Primary Care Provider] - Follow up as needed
[2018-12-04] MEDS ORDERED: ALBUTEROL SULFATE HFA (90 MCG/PUFF) 8 GM MDI (1 MDI/ER DISP) IH PRN (11:44)
== END 2018-12-04 11:46 | disposition home or self-care (01) ==
LOC: ER 10:45
DX: J45.909 Unspecified asthma, uncomplicated (principal); R23.8 Other skin changes; R00.0 Tachycardia, unspecified
CPT/HCPCS: 99283; J3490

== ENCOUNTER 2018-12-06 20:18 | Emergency (ER) | payer MEDICAID ==
[2018-12-07] MEDS ORDERED: FAMOTIDINE 20 MG TABLET PO ONE (00:59)
[2018-12-07] MEDS ORDERED: ONDANSETRON 4 MG TAB.RAPDIS PO ONE (00:59)
[2018-12-07 01:01] VITALS: BP 131/71
--- NOTE | 2018-12-07 01:02 | ER Document Report ---
ED GI/ - General Chief Complaint: Nausea Stated Complaint: NAUSEA Time Seen by Provider: 12/07/18 00:51 Primary Care Provider: GIANCARLO CHANCE MD [Primary Care Provider] - Follow up as needed Mode of Arrival: Ambulatory Information source: Patient Notes: Patient is a 33-year-old male who comes to the emergency room tonight complaining of vomiting today. Patient states he ate some cucumber tomato salad at the soup kitchen and a few minutes later he started throwing that up. He had 2 bouts of vomiting and then he has been nauseated since then that was around noontime today he states she is been here in the emergency room about 4 hours and it feels good now. Does state that he he will still has a little bit of burping but he feels much better. Denies any abdominal pain or discomfort denies any chest pain or shortness of breath TRAVEL OUTSIDE OF THE [place] IN LAST 30 DAYS: No - HPI Patient complains to provider of: Vomiting Onset: This afternoon Timing/Duration: Sudden, Gone Quality of pain: No pain Severity at maximum: Moderate Severity in ED: Mild Pain Level: 0 Context: Bad food Sexual history: Active Associated symptoms: Nausea, Vomiting Exacerbated by: Denies Relieved by: Denies Similar symptoms previously: No Recently seen / treated by doctor: No - Related Data Allergies/Adverse Reactions: No Known Allergies Allergy (Verified 12/06/18 20:20) Past Medical History - General Information source: Patient, [facility] Records - Social History Smoking Status: Never Smoker Cigarette use (# per day): No Chew tobacco use (# tins/day): No Smoking Education Provided: No Frequency of alcohol use: None Drug Abuse: None Lives with: Homeless Family History: Reviewed & Not Pertinent, Other - Unknown Patient has suicidal ideation: No Patient has homicidal ideation: No Pulmonary Medical History: Reports: Hx Asthma Renal/ Medical History: Denies: Hx Peritoneal Dialysis GI Medical History: Reports: Hx Irritable Bowel - constipation Musculoskeletal Medical History: Reports Hx Arthritis, Reports Hx Musculoskeletal Trauma Psychiatric Medical History: Reports: Hx Anxiety, Hx Bipolar Disorder, Hx Depression, Hx Personality Disorder, Hx Schizoaffective Disorder, Hx Schizophrenia Past Surgical History: Reports: Hx Abdominal Surgery, Hx Appendectomy, Hx Cholecystectomy, Hx Orthopedic Surgery - finger - Immunizations Immunizations up to date: Yes Hx Diphtheria, Pertussis, Tetanus Vaccination: Yes - 2012 Hx Pneumococcal Vaccination: 08/23/00 Review of Systems - Review of Systems Constitutional: No symptoms reported EENT: No symptoms reported Cardiovascular: No symptoms reported Respiratory: No symptoms reported Gastrointestinal: See HPI, Nausea, Vomiting. denies: Abdomen distended, Abdominal pain Genitourinary: No symptoms reported Male Genitourinary: No symptoms reported Musculoskeletal: No symptoms reported Skin: No symptoms reported Hematologic/Lymphatic: No symptoms reported Neurological/Psychological: No symptoms reported -: Yes All other systems reviewed and negative Physical Exam - Vital signs Vitals: Temp Pulse Resp BP Pulse Ox 97.9 F 87 16 131/71 H 97 12/07/18 01:00 12/07/18 01:00 12/07/18 01:00 12/07/18 01:00 12/07/18 01:00 Interpretation: Hypertensive - Notes Notes: PHYSICAL EXAMINATION: GENERAL: Well-appearing, well-nourished and in no acute distress. HEAD: Atraumatic, normocephalic. EYES: Pupils equal round and reactive to light, extraocular movements intact, sclera anicteric, conjunctiva are normal. ENT: Nares patent, oropharynx clear without exudates. Moist mucous membranes. NECK: Normal range of motion, supple without lymphadenopathy LUNGS: Breath sounds clear to auscultation bilaterally and equal. No wheezes rales or rhonchi. HEART: Regular rate and rhythm without murmurs ABDOMEN: Soft, nontender, nondistended abdomen. No guarding, no rebound. No masses appreciated. Musculoskeletal: Normal range of motion, no pitting or edema. No cyanosis. NEUROLOGICAL: Cranial nerves grossly intact. Normal speech, normal gait. Normal sensory, motor exams PSYCH: Normal mood, normal affect. SKIN: Warm, Dry, normal turgor, no rashes or lesions noted. Course - Re-evaluation Re-evalutation: 12/07/18 01:03 My examination patient was basically benign. He also states he feels much better after he vomited this afternoon and he had to sit around waiting. He shows me an empty paper wrap up a pastry him that he is eaten to since he had to wait in the emergency room for a while and is kept that down in his stomach upset is gone states he gets queasy every now and then but other than that he feels better. I decided to give him some Zofran so he can stop the queasiness tonight and Pepcid as a protectant against reflux type symptoms. - Vital Signs Vital signs: Temp Pulse Resp BP Pulse Ox 97.9 F 87 16 131/71 H 97 12/07/18 01:00 12/07/18 01:00 12/07/18 01:00 12/07/18 01:00 12/07/18 01:00 Discharge - Discharge Clinical Impression: Reflux esophagitis Vomiting Qualifiers: Vomiting type: unspecified Vomiting Intractability: non-intractable Nausea presence: with nausea Qualified Code(s): R11.2 - Nausea with vomiting, unspecified Disposition: HOME, SELF-CARE Instructions: Antacid Therapy ([facility]) Additional Instructions: As we discussed home and rest. Dracut diet for the next 24 hours and then advance it as tolerated. Should you have any concerns or problems return to ER for recheck. Forms: Elevated Blood Pressure Referrals: GIANCARLO CHANCE MD [Primary Care Provider] - Follow up as needed
== END 2018-12-07 01:16 | disposition home or self-care (01) ==
LOC: ER 20:18
DX: K21.0 Gastro-esophageal reflux disease with esophagitis (principal); R11.2 Nausea with vomiting, unspecified; J45.909 Unspecified asthma, uncomplicated
CPT/HCPCS: 99283; J3490; S0119

== ENCOUNTER 2018-12-08 01:25 | Emergency (ER) | payer SELFPAY ==
[2018-12-08] MEDS ORDERED: IPRATROPIUM/ALBUTEROL 0.5-2.5 MG/3 ML AMPUL NEB ONE (02:24)
[2018-12-08] MEDS ORDERED: PREDNISONE 20 MG TABLET PO ONE (02:24)
[2018-12-08] MEDS: ALBUTEROL SULFATE 0.083% NEB 2.5 MG/3 ML AMPUL NEB SCH ×2 (02:50→04:35)
--- NOTE | 2018-12-08 03:52 | RADIOLOGY REPORT (SQ) ---
EXAM DESCRIPTION: XR CHEST 1 VIEW COMPLETED DATE/TME: 12/08/2018 02:25 CLINICAL HISTORY: 33 years, Male, shortness of breath Comparison: November 05, 2018 FINDINGS: No focal lung consolidation. No pleural effusion. No pneumothorax. Cardiac and mediastinal silhouette is unremarkable. No acute osseous abnormality. Soft tissues are unremarkable. IMPRESSION: No acute findings. No focal lung consolidation.
--- NOTE | 2018-12-08 04:48 | ER Document Report ---
ED General - General Chief Complaint: Asthma Exacerbation Stated Complaint: TROUBLE BREATHING Time Seen by Provider: 12/08/18 04:46 Primary Care Provider: GIANCARLO CHANCE MD [Primary Care Provider] - Follow up as needed Notes: Patient is a pleasant 33-year-old male who presents with complaint of an asthma attack. He has a history of asthma. He says he does not smoke but wants times around secondhand smoke. He said he is having difficulty breathing today. He uses inhaler once but was not improving therefore came into the ER. He is currently receiving nebulizer treatment and says he feels much better. He says this asthma attack was not as severe as once in the past but he was still concerned and therefore came in. Denies recent fevers. No other complaints at this time. TRAVEL OUTSIDE OF THE [place] IN LAST 30 DAYS: No - Related Data Allergies/Adverse Reactions: No Known Allergies Allergy (Verified 12/06/18 20:20) Past Medical History - Social History Smoking Status: Current Every Day Smoker Chew tobacco use (# tins/day): No Frequency of alcohol use: None Drug Abuse: None Family History: Reviewed & Not Pertinent, Other - Unknown Patient has suicidal ideation: No Patient has homicidal ideation: No Pulmonary Medical History: Reports: Hx Asthma Renal/ Medical History: Denies: Hx Peritoneal Dialysis GI Medical History: Reports: Hx Irritable Bowel - constipation Musculoskeletal Medical History: Reports Hx Arthritis, Reports Hx Musculoskeletal Trauma Psychiatric Medical History: Reports: Hx Anxiety, Hx Bipolar Disorder, Hx Depression, Hx Personality Disorder, Hx Schizoaffective Disorder, Hx Schizophrenia Past Surgical History: Reports: Hx Abdominal Surgery, Hx Appendectomy, Hx Cholecystectomy, Hx Orthopedic Surgery - finger - Immunizations Immunizations up to date: Yes Hx Diphtheria, Pertussis, Tetanus Vaccination: Yes - 2012 Hx Pneumococcal Vaccination: 08/23/00 Review of Systems - Review of Systems Notes: My Normal Review Basic REVIEW OF SYSTEMS: CONSTITUTIONAL : Denies fever, chills, or sweats. Denies recent illness. EENT: Denies eye, ear, throat, or mouth pain or symptoms. Denies nasal or sinus congestion. RESPIRATORY: Wheezing and difficulty breathing GASTROINTESTINAL: Denies abdominal pain. Denies nausea, vomiting, or diarrhea. MUSCULOSKELETAL: Denies neck or back pain or joint pain or swelling. SKIN: Denies rash or skin lesions. NEUROLOGICAL: Denies altered mental status or loss of consciousness.. ALL OTHER SYSTEMS REVIEWED AND NEGATIVE. Physical Exam - Vital signs Vitals: Temp Pulse Resp BP Pulse Ox 98.4 F 89 20 146/98 H 94 12/08/18 01:34 12/08/18 01:34 12/08/18 01:34 12/08/18 01:34 12/08/18 01:34 - Notes Notes: General Appearance: Well nourished, alert, cooperative, no acute distress, no obvious discomfort. Well Appearing. Vitals: reviewed, See vital signs table. Eyes: PERRL, EOMI, Conjuctiva clear Mouth: No decreasd moisture Lungs: Mild Scattered wheezing, No rales, No rhonci, No accessory muscle use, good air exchange bilaterally. Heart: Normal rate, Regular rythm, No murmur, no rub Extremities: good pulses in all extremities Skin: warm, dry, appropriate color, no rash Neuro: speech clear, oriented x 3, normal affect, responds appropriately to questions. Course - Re-evaluation Re-evalutation: 12/08/18 05:07 On reevaluation patient's wheezing is completely clear. He looks and feels improved. He has no increased work work of breathing. No tachypnea. I feel he safe to be discharged home. I strongly encouraged him to try to avoid being around cigarette smoke. I encouraged him to use his inhaler as prescribed. Encouraged him return to ER if he has difficulty breathing, wheezing not responding to his inhaler, or she feels unwell. Patient agrees with plan and will be discharged home. Dictation of this chart was performed using voice recognition software; therefore, there may be some unintended grammatical errors. - Vital Signs Vital signs: Temp Pulse Resp BP Pulse Ox 98.4 F 89 20 146/98 H 94 12/08/18 01:34 12/08/18 01:34 12/08/18 01:34 12/08/18 01:34 12/08/18 01:34 Discharge - Discharge Clinical Impression: Asthma exacerbation Qualifiers: Asthma severity: unspecified severity Asthma persistence: intermittent Qualifi ed Code(s): J45.21 - Mild intermittent asthma with (acute) exacerbation Condition: Good Disposition: HOME, SELF-CARE Additional Instructions: ASTHMA: You have been diagnosed as having asthma. This is a condition where there is episodic tightness in the bronchial tubes. Allergies, infections, and polluted or cold air may be contributing factors. Emergency treatment of a severe asthma attack may include adrenaline shots, or bronchodilator aerosol. You may feel lightheaded, have a decreased exercise tolerance and a rapid pulse for an hour or two. Rest and get plenty of fluids. Home treatment of asthma requires bronchodilator drugs. These can be administered by injection, inhalation, or by mouth. Antibiotics and corticosteroids may be required for some patients. You should avoid chemical fumes, dusts, pollens, and exercising in very cold or dry air. If you smoke, stop!! If you develop a fever, increased wheezing, chest pain, or severe shortness of breath, you should contact the doctor immediately. INHALED BRONCHODILATORS: You have received treatment(s) of and/or prescription for an inhaled bronchodilator -- a medication which stimulates the airways in the lung to dilate. This improves the flow of air in asthma, bronchitis, and emphysema. These medicines have some similarity to adrenaline, and can cause similar side effects: shakiness, racing heart, and a sense of nervousness. These side effects decrease with time. Contact your doctor if these side effects are severe. Do not over-use the medicine. Too-frequent use of the inhaler may make it ineffective. Call your doctor if the inhaler is not controlling your symptoms at the prescribed doses. FOLLOW-UP CARE: If you have been referred to a physician for follow-up care, call the physicians office for an appointment as you were instructed or within the next two days. If you experience worsening or a significant change in your symptoms, notify the physician immediately or return to the Emergency Department at any time for re-evaluation. Please use inhaler as 2 puffs every 2 hours as needed for wheezing or difficulty breathing. Please return to the ER if you have worsening difficulty breathing, wheezing not responding to inhaler, or if you feel unwell. Referrals: GIANCARLO CHANCE MD [Primary Care Provider] - Follow up in 3-5 days
[2018-12-08] MEDS ORDERED: ALBUTEROL SULFATE HFA (90 MCG/PUFF) 8 GM MDI (1 MDI/ER DISP) IH ONE (05:07)
[2018-12-08 05:18] VITALS: BP 142/89
== END 2018-12-08 05:18 | disposition home or self-care (01) ==
LOC: ER 01:25
DX: J45.21 Mild intermittent asthma with (acute) exacerbation (principal); F17.200 Nicotine dependence, unspecified, uncomplicated
CPT/HCPCS: 94640 ×2; 99284; 71045; J7512; J3490; J7620

== ENCOUNTER 2018-12-09 19:54 | Emergency (ER) | payer MEDICAID ==
--- NOTE | 2018-12-09 21:51 | RADIOLOGY REPORT (SQ) ---
EXAM DESCRIPTION: XR CHEST 1 VIEW COMPLETED DATE/TME: 12/09/2018 20:30 CLINICAL HISTORY: sob COMPARISON: December 08, 2018 FINDINGS: Cardiac silhouette is within normal limits. There is no focal parenchymal or pleural disease. There is no acute osseous process visualized. IMPRESSION: No evidence of acute cardiopulmonary disease.
--- NOTE | 2018-12-09 22:09 | ER Document Report ---
ED General - General Chief Complaint: Shortness Of Breath Stated Complaint: BREATHING PROBLEMS Time Seen by Provider: 12/09/18 20:30 Notes: Patient is a 33-year-old homeless man, history of asthma, very frequent visits to the emergency department for cough and complaints of shortness of breath usually asymptomatic at time of presentation who presents by EMS due to concerns of difficulty breathing. Apparently received a nebulizer treatment in route to the hospital. At the time of my evaluation the patient is asking for food in a blanket and denies any ongoing symptoms. States that the manager business management told him "I need to get checked out for bronchitis". He denies smoking. States that he is intermittently using his albuterol inhaler with some improvement of his cough and concern of shortness of breath. Denies any current symptoms at the time of my evaluation. Has not noted worsening factors. Does not follow with primary care physician. Denies fever or constitutional symptoms. TRAVEL OUTSIDE OF THE [place] IN LAST 30 DAYS: No - Related Data Allergies/Adverse Reactions: No Known Allergies Allergy (Verified 12/06/18 20:20) Past Medical History - General Information source: Patient - Social History Smoking Status: Never Smoker Frequency of alcohol use: None Drug Abuse: None Lives with: Homeless Family History: Reviewed & Not Pertinent, Other - Unknown Patient has suicidal ideation: No Patient has homicidal ideation: No Pulmonary Medical History: Reports: Hx Asthma Renal/ Medical History: Denies: Hx Peritoneal Dialysis GI Medical History: Reports: Hx Irritable Bowel - constipation Musculoskeletal Medical History: Reports Hx Arthritis, Reports Hx Musculoskeletal Trauma Psychiatric Medical History: Reports: Hx Anxiety, Hx Bipolar Disorder, Hx Depression, Hx Personality Disorder, Hx Schizoaffective Disorder, Hx Schizophrenia Past Surgical History: Reports: Hx Abdominal Surgery, Hx Appendectomy, Hx Cholecystectomy, Hx Orthopedic Surgery - finger - Immunizations Immunizations up to date: Yes Hx Diphtheria, Pertussis, Tetanus Vaccination: Yes - 2012 Hx Pneumococcal Vaccination: 08/23/00 Review of Systems - Review of Systems Notes: Constitutional: Negative for fever. HENT: Negative for sore throat. Eyes: Negative for visual changes. Cardiovascular: Negative for chest pain. Respiratory: Positive for cough Gastrointestinal: Negative for abdominal pain, vomiting or diarrhea. Genitourinary: Negative for dysuria. Musculoskeletal: Negative for back pain. Skin: Negative for rash. Neurological: Negative for headaches, weakness or numbness. 10 point ROS negative except as marked above and in HPI. Physical Exam - Vital signs Vitals: Pulse Resp Pulse Ox 100 17 97 12/09/18 20:09 12/09/18 20:09 12/09/18 20:09 Interpretation: Normal Notes: PHYSICAL EXAMINATION: GENERAL: Well-appearing, well-nourished and in no acute distress. HEAD: Atraumatic, normocephalic. EYES: Pupils equal round and reactive to light, extraocular movements intact, sclera anicteric, conjunctiva are normal. ENT: nares patent, oropharynx clear without exudates. Moist mucous membranes. NECK: Normal range of motion, supple without lymphadenopathy LUNGS: Breath sounds clear to auscultation bilaterally and equal. No wheezes rales or rhonchi. HEART: Regular rate and rhythm without murmurs ABDOMEN: Soft, nontender, normoactive bowel sounds. No guarding, no rebound. No masses appreciated. EXTREMITIES: Normal range of motion, no pitting or edema. No cyanosis. NEUROLOGICAL: No focal neurological deficits. Moves all extremities spontaneously and on command. PSYCH: Normal mood, normal affect. SKIN: Warm, Dry, normal turgor, no rashes or lesions noted. Course - Re-evaluation Re-evalutation: 12/09/18 22:06 Patient presents with a mild exacerbation of their baseline asthma. Patient apparently had wheezing for EMS but by the time I am examining him he has no wheezing, no retractions, appears completely asymptomatic. He presents in this manner several times monthly if not more. No retractions. No additional therapy is required in the emergency department. Chest x-ray without evidence of an acute pneumonia. Patient able to ambulate without any respiratory distress. Based on patient's overall reassuring assessment, I believe they are stable for outpatient management . I do not suspect an acute alternative pathology at this time based on history and exam including acute pulmonary embolus, ACS, pneumothorax, or aortic dissection. At this time will discharge with return precautions and follow-up recommendations. Verbal discharge instructions given a the bedside and opportunity for questions given. Medication warnings reviewed. Patient is in agreement with this plan and has verbalized understanding of return precautions and the need for primary care follow-up in the next 24-72 hours. - Vital Signs Vital signs: Temp Pulse Resp BP Pulse Ox 98.7 F 88 16 118/75 98 12/09/18 22:13 12/09/18 22:13 12/09/18 22:13 12/09/18 22:13 12/09/18 22:13 - Diagnostic Test Radiology reviewed: Image reviewed, Reports reviewed Radiology results interpreted by me: 12/09/18 22:09 Chest x-ray: No acute infiltrate or pneumothorax Discharge - Discharge Clinical Impression: Asthma exacerbation Qualifiers: Asthma severity: mild Asthma persistence: persistent Qualified Code(s): J45.31 - Mild persistent asthma with (acute) exacerbation Condition: Good Disposition: HOME, SELF-CARE Additional Instructions: You were seen for an asthma exacerbation. Your symptoms improved with treatment here in the emergency department. However, it is very important that you return to the emergency department immediately if you began to have worsening difficulty breathing that does not respond to your normal home nebulizers. You are also being sent home on a five-day course of steroids that you should start taking tomorrow. Please also follow closely with your primary care physician. you should also return to emergency department if you develop fever greater than 101, persistent cough, persistent vomiting, pass out, or any other symptoms that are concerning to you.
[2018-12-09 22:20] VITALS: BP 118/75
== END 2018-12-09 22:21 | disposition home or self-care (01) ==
LOC: ER 19:54
DX: J45.31 Mild persistent asthma with (acute) exacerbation (principal); R06.02 Shortness of breath; R05 Cough; Z59.0 Homelessness
CPT/HCPCS: 71045; 99285

== ENCOUNTER 2018-12-11 04:09 | Emergency (ER) | payer MEDICAID ==
[2018-12-11] MEDS ORDERED: IPRATROPIUM/ALBUTEROL 0.5-2.5 MG/3 ML AMPUL NEB ONE ×3 (04:23→04:25)
[2018-12-11] MEDS ORDERED: ALBUTEROL SULFATE 0.083% NEB 2.5 MG/3 ML AMPUL NEB ONE (04:25)
[2018-12-11] MEDS ORDERED: METHYLPREDNISOLONE INJ 125 MG/2 ML SDV IV ONE (04:32)
[2018-12-11] MEDS: MAGNESIUM SULFATE/D5W 1 GM/100 ML RTUPB IV SCH ×2 (04:38→04:45)
[2018-12-11 04:54] LABS: ABSOLUTE BASOPHILS # (AUTO) 0.1 10^3/uL (0.0-0.2); ABSOLUTE EOSINOPHILS # (AUTO) 0.7 10^3/uL (0.0-0.6); ABSOLUTE LYMPHOCYTES (AUTO) 1.6 10^3/uL (0.5-4.7); ABSOLUTE MONOCYTES (AUTO) 0.2 10^3/uL (0.1-1.4); ABSOLUTE NEUT (AUTO) 0.8 10^3/uL (1.7-8.2); BASOPHILS % (AUTO) 2.4 % (0-2); EOSINOPHILS % (AUTO) 19.3 % (0-6); HEMOGLOBIN 13.4 g/dL (13.5-17.0); LYMPHOCYTES % (AUTO) 48.3 % (13-45); MEAN CORPUSCULAR HEMOGLOBIN 27.8 pg (27.0-33.4); MEAN CORPUSCULAR HGB CONC 33.6 g/dL (32.0-36.0); MEAN CORPUSCULAR VOLUME 83 fl (80-97); MONOCYTES % (AUTO) 7.3 % (3-13); PLATELET COUNT 210 10^3/uL (150-450); RED BLOOD COUNT 4.83 10^6/uL (4.35-5.55); RED CELL DISTRIBUTION WIDTH 14.4 % (11.5-14.0); SEGMENTED NEUTROPHILS % (AUTO) 22.7 % (42-78); TOTAL CELLS COUNTED % (AUTO) 100 %; WHITE BLOOD COUNT 3.4 10^3/uL (4.0-10.5)
--- NOTE | 2018-12-11 04:54 | RADIOLOGY REPORT (SQ) ---
EXAM DESCRIPTION: XR CHEST 1 VIEW COMPLETED DATE/TME: 12/11/2018 04:25 CLINICAL HISTORY: 33 years, Male, shortness of breath, cough COMPARISON: 12/09/2018 chest x-ray NUMBER OF VIEWS: 2 TECHNIQUE: AP chest LIMITATIONS: None. FINDINGS: Heart size is normal. Lungs are clear. No pneumothorax IMPRESSION: Negative chest copyright 2010 [employer]- All Rights Reserved
[2018-12-11 05:09] LABS: ALANINE AMINOTRANSFERASE 25 U/L (21-72); ALBUMIN 3.7 g/dL (3.5-5.0); ALKALINE PHOSPHATASE 61 U/L (38-126); ASPARTATE AMINO TRANSFERASE 30 U/L (17-59); BILIRUBIN,DIRECT 0.1 mg/dL (0.0-0.4); BLOOD UREA NITROGEN 14 mg/dL (7-20); CALCIUM 9.3 mg/dL (8.4-10.2); GLUCOSE 94 mg/dL (75-110); POTASSIUM 4.3 mmol/L (3.6-5.0); TOTAL PROTEIN 6.3 g/dL (6.3-8.2)
[2018-12-11 05:14] LABS: CARBON DIOXIDE 30 mmol/L (22-30); CHLORIDE 107 mmol/L (98-107); SODIUM 140.4 mmol/L (137-145)
[2018-12-11 05:21] LABS: BILIRUBIN,TOTAL 1.6 mg/dL (0.2-1.3)
[2018-12-11 05:24] LABS: ANION GAP 3 (5-19)
[2018-12-11 05:41] VITALS: BP 119/80
--- NOTE | 2018-12-11 05:41 | ER Document Report ---
ED Respiratory Problem - General Chief Complaint: Respiratory Distress Stated Complaint: RESPIRATORY DISTRESS Time Seen by Provider: 12/11/18 04:19 Mode of Arrival: Wheelchair Information source: Patient Notes: Patient is a 33-year-old male with history of asthma who presents to the emergency department chief complaint of shortness of breath and difficulty breathing. Patient is well-known to our facility, he is homeless, he was found in the bathroom near the cafeteria and what appeared to be acute respiratory distress. Patient was taken to the emergency department via wheelchair. His initial oxygen saturation was 90%. Patient was coughing up white sputum on arrival. Patient denies any fevers. He is unsure how long his symptoms have been going on however he states that every morning he wakes up with a severe cough. TRAVEL OUTSIDE OF THE [place] IN LAST 30 DAYS: No - Related Data Allergies/Adverse Reactions: No Known Allergies Allergy (Verified 12/06/18 20:20) Past Medical History - General Information source: Patient - Social History Smoking Status: Current Some Day Smoker Chew tobacco use (# tins/day): No Frequency of alcohol use: None Drug Abuse: None Family History: Reviewed & Not Pertinent, Other - Unknown Patient has suicidal ideation: No Patient has homicidal ideation: No Pulmonary Medical History: Reports: Hx Asthma Renal/ Medical History: Denies: Hx Peritoneal Dialysis GI Medical History: Reports: Hx Irritable Bowel - constipation Musculoskeletal Medical History: Reports Hx Arthritis, Reports Hx Musculoskeletal Trauma Psychiatric Medical History: Reports: Hx Anxiety, Hx Bipolar Disorder, Hx Depression, Hx Personality Disorder, Hx Schizoaffective Disorder, Hx Schizophrenia Past Surgical History: Reports: Hx Abdominal Surgery, Hx Appendectomy, Hx Cholecystectomy, Hx Orthopedic Surgery - finger - Immunizations Immunizations up to date: Yes Hx Diphtheria, Pertussis, Tetanus Vaccination: Yes - 2012 Hx Pneumococcal Vaccination: 08/23/00 Review of Systems - Review of Systems Constitutional: No symptoms reported. denies: Chills, Fever EENT: No symptoms reported Cardiovascular: No symptoms reported. denies: Chest pain Respiratory: Cough, Short of breath, Sputum Gastrointestinal: No symptoms reported Genitourinary: No symptoms reported Male Genitourinary: No symptoms reported Musculoskeletal: No symptoms reported Skin: No symptoms reported Hematologic/Lymphatic: No symptoms reported Neurological/Psychological: No symptoms reported Physical Exam - Vital signs Vitals: Temp Pulse Resp BP Pulse Ox 98 F 80 26 H 145/83 H 90 L 12/11/18 04:15 12/11/18 04:15 12/11/18 04:15 12/11/18 04:15 12/11/18 04:15 - Notes Notes: PHYSICAL EXAMINATION: GENERAL: Disheveled, short of breath. HEAD: Atraumatic, normocephalic. EYES: Pupils equal round and reactive to light, extraocular movements intact, sclera anicteric, conjunctiva are normal. ENT: Nares patent, oropharynx clear without exudates. Moist mucous membranes. NECK: Normal range of motion, supple without lymphadenopathy LUNGS: Inspiratory and expiratory wheezes noted, increased work of breathing. HEART: Regular rate and rhythm without murmurs ABDOMEN: Soft, nontender, nondistended abdomen. No guarding, no rebound. No masses appreciated. Musculoskeletal: Normal range of motion, no pitting or edema. No cyanosis. NEUROLOGICAL: Cranial nerves grossly intact. Normal speech, normal gait. Normal sensory, motor exams PSYCH: Normal mood, normal affect. SKIN: Warm, Dry, normal turgor, no rashes or lesions noted. Course - Re-evaluation Re-evalutation: Labs as recorded. Chest x-ray is unremarkable. Patient improved significantly after breathing treatments, Solu-Medrol and IV magnesium. Patient was monitored for several hours after medications and has had no rebound wheezing or shortness of breath. Patient is speaking in full and complete sentences. Lungs are clear. Patient does have a rescue inhaler with him, it is an albuterol inhaler that was given to him recently. Patient will be started on prednisone, prescription provided. Patient's vital signs within normal limits at time of discharge. - Vital Signs Vital signs: Temp Pulse Resp BP Pulse Ox 98 F 80 15 119/80 99 12/11/18 04:15 12/11/18 04:15 12/11/18 05:33 12/11/18 05:33 12/11/18 05:33 - Laboratory Result Diagrams: 12/11/18 04:35 12/11/18 04:35 Laboratory results interpreted by me: 12/11/18 12/11/18 04:35 04:35 WBC 3.4 L Hgb 13.4 L RDW 14.4 H Seg Neutrophils % 22.7 L Lymphocytes % 48.3 H Eosinophils % 19.3 H Basophils % 2.4 H Absolute Neutrophils 0.8 L Absolute Eosinophils 0.7 H Anion Gap 3 L Total Bilirubin 1.6 H Discharge - Discharge Clinical Impression: Asthma exacerbation Qualifiers: Asthma severity: moderate Asthma persistence: unspecified Qualified Code(s): J45.901 - Unspecified asthma with (acute) exacerbation Condition: Stable Disposition: HOME, SELF-CARE Additional Instructions: You were seen for an asthma exacerbation. Your symptoms improved with treatment here in the emergency department. However, it is very important that you return to the emergency department immediately if you began to have worsening difficulty breathing that does not respond to your normal home nebulizers. You are also being sent home on a five-day course of steroids that you should start taking tomorrow. Please also follow closely with your primary care physician. you should also return to emergency department if you develop fever greater than 101, persistent cough, persistent vomiting, pass out, or any other symptoms that are concerning to you. Prescriptions: RX: Prednisone [Deltasone 20 mg Tablet] 3 tab PO DAILY 5 Days #15 tablet
== END 2018-12-11 05:53 | disposition home or self-care (01) ==
LOC: ER 04:09
DX: J45.901 Unspecified asthma with (acute) exacerbation (principal); F17.200 Nicotine dependence, unspecified, uncomplicated; Z90.49 Acquired absence of other specified parts of digestive tract; Z59.0 Homelessness
CPT/HCPCS: 94640 ×2; 99285; 96375; 96365; 36415; 85025; 80053; 71045; J2930; J3475; J7620

== ENCOUNTER 2018-12-14 09:17 | Emergency (ER) | payer MEDICAID ==
[2018-12-14 09:25] VITALS: BP 122/69
[2018-12-14] MEDS ORDERED: ALBUTEROL SULFATE HFA (90 MCG/PUFF) 8 GM MDI (1 MDI/ER DISP) IH ONE (09:41)
--- NOTE | 2018-12-14 09:50 | ER Document Report ---
ED General - General Chief Complaint: Medication Refill Stated Complaint: MEDICATION REFILL Time Seen by Provider: 12/14/18 09:41 Primary Care Provider: [facility] [Provider Group] - Follow up as needed Mode of Arrival: Ambulatory Information source: Patient TRAVEL OUTSIDE OF THE [place] IN LAST 30 DAYS: No - HPI Patient complains to provider of: Needs inhaler Notes: Patient is here with complaints of needing an inhaler. The patient is well- known his emergency department. He is homeless, has a history of asthma. States that his asthma flared up on him a little bit this morning and he does not have an inhaler so he came to the emergency department order to obtain one. No significant trouble breathing. No chest pain. No fever. No nausea, vomiting, diarrhea. No rash. He denies any other specific complaints at this time. - Related Data Allergies/Adverse Reactions: No Known Allergies Allergy (Verified 12/06/18 20:20) Past Medical History - Social History Smoking Status: Unknown if Ever Smoked Family History: Reviewed & Not Pertinent, Other - Unknown Pulmonary Medical History: Reports: Hx Asthma Renal/ Medical History: Denies: Hx Peritoneal Dialysis GI Medical History: Reports: Hx Irritable Bowel - constipation Musculoskeletal Medical History: Reports Hx Arthritis, Reports Hx Musculoskeletal Trauma Psychiatric Medical History: Reports: Hx Anxiety, Hx Bipolar Disorder, Hx Depression, Hx Personality Disorder, Hx Schizoaffective Disorder, Hx Schizophrenia Past Surgical History: Reports: Hx Abdominal Surgery, Hx Appendectomy, Hx Cholecystectomy, Hx Orthopedic Surgery - finger - Immunizations Immunizations up to date: Yes Hx Diphtheria, Pertussis, Tetanus Vaccination: Yes - 2012 Hx Pneumococcal Vaccination: 08/23/00 Review of Systems - Review of Systems -: Yes All other systems reviewed and negative Physical Exam - Vital signs Vitals: Temp Pulse Resp BP Pulse Ox 98.5 F 78 18 122/69 95 12/14/18 09:24 12/14/18 09:24 12/14/18 09:24 12/14/18 09:24 12/14/18 09:24 - Notes Notes: GENERAL: alert, cooperative, nontoxic, no distress. HEAD: normocephalic, atraumatic EYES: conjunctiva pink without discharge, no external redness or swelling. EARS: no external swelling, no external redness, no mastoid redness, swelling, tenderness. Ear canals are clear without swelling or drainage. TMs pearly salmon, no redness, no bulging, normal landmarks, no perforation. NOSE: atraumatic, no external swelling. clear rhinorrhea noted. MOUTH/THROAT: mucous membranes moist and pink, posterior pharynx without erythema, swelling, exudate. No trismus or drooling. NECK: soft, supple, full range of motion, no meningismus. CHEST: no distress, scattered expiratory wheezes throughout. Good air movement. No crackles. CARDIAC: regular rate and rhythm, no murmur, normal capillary refill, normal pulses. No peripheral edema noted. BACK: full range of motion, no CVA tenderness. EXTREMITIES: full range of motion of all extremities. No redness, no swelling. NEURO: alert and oriented A&O3, no focal deficits, full range of motion of all extremities. PYSCH: appropriate mood, affect. Patient is cooperative. SKIN: pink, warm, dry, no rash. Course - Re-evaluation Re-evalutation: 12/14/18 09:55 Patient nontoxic-appearing with stable vitals. Patient here needing a inhaler. He is well-known his emergency department, is homeless, does not have a inhaler. Like his asthma was somewhat flaring up on him this morning. He is currently on prednisone. He came just to get an inhaler. He looks well otherwise. He is in no distress. He is got some scattered expiratory wheezes. He was given a albuterol inhaler and will be discharged home at this time. Follow-up for any worsening symptoms, high fever, difficulty breathing, or for any further concerns. The patient's emergency department workup and current diagnosis were explained t o the patient and or family. Follow-up instructions were provided. Medications if prescribed were discussed. Instructions for when to return to the emergency department including specific worrisome symptoms were discussed with the patient and/or family. - Vital Signs Vital signs: Temp Pulse Resp BP Pulse Ox 98.5 F 78 18 122/69 95 12/14/18 09:24 12/14/18 09:24 12/14/18 09:24 12/14/18 09:24 12/14/18 09:24 Discharge - Discharge Clinical Impression: Medication refill Condition: Stable Disposition: HOME, SELF-CARE Instructions: Asthma ([facility]) Additional Instructions: Take medication as prescribed. Follow-up with your doctor as needed. Follow-up sooner for any worsening symptoms or any further concerns. Forms: Elevated Blood Pressure, Smoking Cessation Education Referrals: [facility] [Provider Group] - Follow up as needed
== END 2018-12-14 09:56 | disposition home or self-care (01) ==
LOC: ER 09:17
DX: Z76.0 Encounter for issue of repeat prescription (principal); J45.909 Unspecified asthma, uncomplicated
CPT/HCPCS: 99281; J3490

== ENCOUNTER 2018-12-23 08:20 | Emergency (ER) | payer MEDICAID ==
[2018-12-23 08:26] VITALS: BP 119/60
[2018-12-23] MEDS ORDERED: IPRATROPIUM/ALBUTEROL 0.5-2.5 MG/3 ML AMPUL NEB ONE (09:04)
[2018-12-23] MEDS ORDERED: CALCIUM GLUCONATE 1000 MG/10 ML INJ IV ONE (09:08)
--- NOTE | 2018-12-23 09:08 | ER Document Report ---
ED General - General Chief Complaint: Breathing Difficulty Stated Complaint: DIFFICULTY BREATHING Time Seen by Provider: 12/23/18 08:54 Notes: 33-year-old known asthmatic and schizophrenic who is homeless presents to the emergency department for concerns for shortness of breath and wheezing. Patient is in this emergency department very frequently and was recently seen here for similar complaints. He says that he feels like his throat is tight and his lower lungs are tight as well. He denies any airway constriction, allergic reaction, acute respiratory distress, chest pain, nausea, vomiting, diarrhea. He states he just wanted to get checked. No other complaints TRAVEL OUTSIDE OF THE [place] IN LAST 30 DAYS: No - Related Data Allergies/Adverse Reactions: No Known Allergies Allergy (Verified 12/17/18 15:09) Past Medical History - Social History Smoking Status: Unknown if Ever Smoked Family History: Reviewed & Not Pertinent, Other - Unknown Pulmonary Medical History: Reports: Hx Asthma Renal/ Medical History: Denies: Hx Peritoneal Dialysis GI Medical History: Reports: Hx Irritable Bowel - constipation Musculoskeletal Medical History: Reports Hx Arthritis, Reports Hx Musculoskeletal Trauma Psychiatric Medical History: Reports: Hx Anxiety, Hx Bipolar Disorder, Hx Depression, Hx Personality Disorder, Hx Schizoaffective Disorder, Hx Schiz ophrenia Past Surgical History: Reports: Hx Abdominal Surgery, Hx Appendectomy, Hx Cholecystectomy, Hx Orthopedic Surgery - finger - Immunizations Immunizations up to date: Yes Hx Diphtheria, Pertussis, Tetanus Vaccination: Yes - 2012 Hx Pneumococcal Vaccination: 08/23/00 Review of Systems - Review of Systems Constitutional: See HPI EENT: See HPI Cardiovascular: See HPI Respiratory: See HPI Gastrointestinal: See HPI Genitourinary: No symptoms reported Male Genitourinary: No symptoms reported Musculoskeletal: No symptoms reported Skin: No symptoms reported Hematologic/Lymphatic: No symptoms reported Neurological/Psychological: No symptoms reported Physical Exam - Vital signs Vitals: Temp Pulse Resp BP Pulse Ox 98 F 76 18 119/60 96 12/23/18 08:23 12/23/18 08:23 12/23/18 08:23 12/23/18 08:23 12/23/18 08:23 - Notes Notes: PHYSICAL EXAMINATION: Reviewed vital signs and charting by RN GENERAL: Alert, interacts well. No acute distress. Poor hygiene as he is homeless HEAD: Normocephalic, atraumatic. EYES: Pupils equal and round. Extraocular movements intact. ENT: Oral mucosa moist, tongue midline. NECK: Full range of motion. Supple. Trachea midline. LUNGS: Wheezes heard in all lung garcia, moving air in no respiratory distress HEART: Regular rate and rhythm. No murmur ABDOMEN: soft, non-tender. Non-distended. Bowel sounds present. no McBurney's point tenderness, no Dickinson sign. NEUROLOGIC: Oriented and appropriate. Normal speech. PSYCH: Normal affect, normal mood. Good eye contact SKIN: Warm, dry, normal turgor. No rashes or lesions noted. Course - Re-evaluation Re-evalutation: 12/23/18 09:10 Overall very well-appearing, does have wheezes throughout. Patient is concerned for that, does have his home inhaler. I will give him DuoNeb x2 and a spacer. Patient shows no evidence of respiratory distress, no concerns for impending airway compromise. I explained to patient I will give him an AeroChamber and a DuoNeb and he is very happy as he was only concerned for a quick checkup. 12/23/18 09:10 - Vital Signs Vital signs: Temp Pulse Resp BP Pulse Ox 98 F 76 18 119/60 96 12/23/18 08:23 12/23/18 08:23 12/23/18 08:23 12/23/18 08:23 12/23/18 08:23 Discharge - Discharge Clinical Impression: Asthma Qualifiers: Asthma severity: mild Asthma persistence: unspecified Asthma complication type: uncomplicated Qualified Code(s): J45.909 - Unspecified asthma, uncomplicated Condition: Good Disposition: HOME, SELF-CARE Additional Instructions: You were seen for an asthma exacerbation. Your symptoms improved with treatment here in the emergency department. However, it is very important that you return to the emergency department immediately if you began to have worsening difficulty breathing that does not respond to your inhaler. Please also follow closely with your primary care physician. You should also return to emergency department if you develop fever greater than 101, persistent cough, persistent vomiting, pass out, or any other symptoms that are concerning to you.
== END 2018-12-23 09:49 | disposition home or self-care (01) ==
LOC: ER 08:20
DX: J45.909 Unspecified asthma, uncomplicated (principal); R06.00 Dyspnea, unspecified; Z59.0 Homelessness; Z90.49 Acquired absence of other specified parts of digestive tract
CPT/HCPCS: 94640; 99284; J7620

== ENCOUNTER 2018-12-23 17:00 | Emergency (ER) | payer MEDICAID ==
[2018-12-23] MEDS ORDERED: IPRATROPIUM/ALBUTEROL 0.5-2.5 MG/3 ML AMPUL NEB ONE (17:15)
[2018-12-23] MEDS ORDERED: METHYLPREDNISOLONE INJ 125 MG/2 ML SDV IV ONE (17:15)
--- NOTE | 2018-12-23 17:21 | ER Document Report ---
ED Medical Screen (RME) - General Chief Complaint: Breathing Difficulty Stated Complaint: COUGH/SHORT OF BREATH Time Seen by Provider: 12/23/18 17:11 Mode of Arrival: Ambulatory Information source: Patient TRAVEL OUTSIDE OF THE [place] IN LAST 30 DAYS: No - HPI Patient complains to provider of: JHOAN Notes: 12/23/18 17:20 Patient well-known his emergency department with history of asthma. He was here earlier today with asthma exacerbation. He was sent home with steroids and inhaler. States that he is feeling significantly worse and having much more trouble breathing. Exam Patient is in respiratory distress, standing up tripoding. Poor air movement with tight breath sounds. Tachypnea. Tachycardia. Plan CBC, CMP, chest x-ray, saline lock. I have ordered 3 DuoNeb's and Solu-Medrol. The patient is going to be taken back to her room immediately for further evaluation and management. An initial examination was made on the patient as part of the triage process, and it was determined a more comprehensive evaluation was necessary. Initial labs were ordered and patient was transferred to another provider in the ED who assumed care and finished evaluation and plan. - Related Data Allergies/Adverse Reactions: No Known Allergies Allergy (Verified 12/17/18 15:09) Past Medical History - Social History Family history: Reviewed & Not Pertinent Pulmonary Medical History: Reports: Hx Asthma Renal/ Medical History: Denies: Hx Peritoneal Dialysis GI Medical History: Reports: Hx Irritable Bowel - constipation Musculoskeltal Medical History: Reports Hx Arthritis, Reports Hx Musculoskeletal Trauma Psychiatric Medical History: Reports: Hx Anxiety, Hx Bipolar Disorder, Hx Depression, Hx Personality Disorder, Hx Schizoaffective Disorder, Hx Schizophrenia Past Surgical History: Reports: Hx Abdominal Surgery, Hx Appendectomy, Hx Cholecystectomy, Hx Orthopedic Surgery - finger - Immunizations Immunizations up to date: Yes Hx Diphtheria, Pertussis, Tetanus Vaccination: Yes - 2012 Physical Exam - Vital signs Vitals: Temp Pulse Resp BP Pulse Ox 98.6 F 128 H 24 H 122/73 94 12/23/18 17:07 12/23/18 17:07 12/23/18 17:07 12/23/18 17:07 12/23/18 17:07 Course - Vital Signs Vital signs: Temp Pulse Resp BP Pulse Ox 98.6 F 128 H 24 H 122/73 94 12/23/18 17:07 12/23/18 17:07 12/23/18 17:07 12/23/18 17:07 12/23/18 17:07
[2018-12-23 18:19] LABS: ABSOLUTE BASOPHILS # (AUTO) 0.1 10^3/uL (0.0-0.2); ABSOLUTE EOSINOPHILS # (AUTO) 0.2 10^3/uL (0.0-0.6); ABSOLUTE LYMPHOCYTES (AUTO) 1.3 10^3/uL (0.5-4.7); ABSOLUTE MONOCYTES (AUTO) 0.6 10^3/uL (0.1-1.4); EOSINOPHILS % (AUTO) 2.3 % (0-6); HEMATOCRIT 46.4 % (37.9-51.0); HEMOGLOBIN 15.1 g/dL (13.5-17.0); MEAN CORPUSCULAR HEMOGLOBIN 26.9 pg (27.0-33.4); MEAN CORPUSCULAR HGB CONC 32.6 g/dL (32.0-36.0); MEAN CORPUSCULAR VOLUME 83 fl (80-97); MONOCYTES % (AUTO) 8.8 % (3-13); PLATELET COUNT 257 10^3/uL (150-450); RED BLOOD COUNT 5.62 10^6/uL (4.35-5.55); RED CELL DISTRIBUTION WIDTH 14.8 % (11.5-14.0); SEGMENTED NEUTROPHILS % (AUTO) 69.9 % (42-78); TOTAL CELLS COUNTED % (AUTO) 100 %; WHITE BLOOD COUNT 7.1 10^3/uL (4.0-10.5)
[2018-12-23 18:36] LABS: ALANINE AMINOTRANSFERASE 29 U/L (21-72); ALBUMIN 4.6 g/dL (3.5-5.0); ALKALINE PHOSPHATASE 66 U/L (38-126); ANION GAP 12 (5-19); ASPARTATE AMINO TRANSFERASE 30 U/L (17-59); BILIRUBIN,DIRECT 0.2 mg/dL (0.0-0.4); BLOOD UREA NITROGEN 20 mg/dL (7-20); CALCIUM 9.6 mg/dL (8.4-10.2); CARBON DIOXIDE 26 mmol/L (22-30); CHLORIDE 105 mmol/L (98-107); GLUCOSE 83 mg/dL (75-110); POTASSIUM 4.5 mmol/L (3.6-5.0); SODIUM 142.6 mmol/L (137-145); TOTAL PROTEIN 7.6 g/dL (6.3-8.2)
--- NOTE | 2018-12-23 18:57 | RADIOLOGY REPORT (SQ) ---
EXAM DESCRIPTION: CHEST SINGLE VIEW COMPLETED DATE/TIME: 12/23/2018 6:49 pm REASON FOR STUDY: SOB, WHEEZING COMPARISON: 12/17/2018 TECHNIQUE: Single frontal radiographic view of the chest acquired. NUMBER OF VIEWS: One view. LIMITATIONS: None. FINDINGS: LUNGS AND PLEURA: No pneumothorax. No consolidation or pleural effusion. MEDIASTINUM AND HILAR STRUCTURES: Stable. HEART AND VASCULAR STRUCTURES: Stable. BONES: No acute findings. HARDWARE: None in the chest. OTHER: No other significant finding. IMPRESSION: NO ACUTE FINDINGS. TECHNICAL DOCUMENTATION: JOB ID: [id number] [employer]- All Rights Reserved Reading location - IP/workstation name: [email or web address]
[2018-12-23] MEDS ORDERED: ALBUTEROL SULFATE HFA (90 MCG/PUFF) 8 GM MDI (1 MDI/ER DISP) IH ONE (20:44)
[2018-12-23 21:44] VITALS: BP 108/64
--- NOTE | 2018-12-23 21:55 | ER Document Report ---
Entered by ALAYNA POOL SCRIBE 12/23/182031 Acting as scribe for:LENIN SOLIS MD ED General - General Chief Complaint: Breathing Difficulty Stated Complaint: COUGH/SHORT OF BREATH Time Seen by Provider: 12/23/18 17:11 Mode of Arrival: Ambulatory Information source: Patient Notes: Patient is a 33-year-old male who frequents this emergency department presents today complaining of a cough and difficulty breathing onset today. Patient states "my lungs are clear , it is just my windpipe is aggravated". Of note, patient was seen earlier today and diagnosed with an asthma exacerbation and discharged home. TRAVEL OUTSIDE OF THE [place] IN LAST 30 DAYS: No - Related Data Allergies/Adverse Reactions: No Known Allergies Allergy (Verified 12/17/18 15:09) Past Medical History - General Information source: Patient - Social History Smoking Status: Current Every Day Smoker Frequency of alcohol use: None Drug Abuse: None Family History: Reviewed & Not Pertinent, Other - Unknown Patient has suicidal ideation: No Patient has homicidal ideation: No Pulmonary Medical History: Reports: Hx Asthma GI Medical History: Reports: Hx Irritable Bowel - constipation Musculoskeletal Medical History: Reports Hx Arthritis, Reports Hx Musculoskeletal Trauma Psychiatric Medical History: Reports: Hx Anxiety, Hx Bipolar Disorder, Hx Depression, Hx Personality Disorder, Hx Schizoaffective Disorder, Hx Schizophrenia Past Surgical History: Reports: Hx Abdominal Surgery, Hx Appendectomy, Hx Cholecystectomy, Hx Orthopedic Surgery - finger - Immunizations Immunizations up to date: Yes Hx Diphtheria, Pertussis, Tetanus Vaccination: Yes - 2012 Hx Pneumococcal Vaccination: 08/23/00 Review of Systems - Review of Systems Constitutional: No symptoms reported EENT: No symptoms reported Cardiovascular: No symptoms reported Respiratory: See HPI, Cough Gastrointestinal: No symptoms reported Genitourinary: No symptoms reported Male Genitourinary: No symptoms reported Musculoskeletal: No symptoms reported Skin: No symptoms reported Neurological/Psychological: No symptoms reported -: Yes All other systems reviewed and negative Physical Exam - Vital signs Vitals: Temp Pulse Resp BP Pulse Ox 98.6 F 128 H 24 H 122/73 94 12/23/18 17:07 12/23/18 17:07 12/23/18 17:07 12/23/18 17:07 12/23/18 17:07 - Notes Notes: GENERAL: Alert, interacts well. No acute distress. HEAD: Normocephalic, atraumatic. EYES: Pupils equal, round, and reactive to light. Extraocular movements intact. ENT: Oral mucosa moist, tongue midline. No swelling noted in the posterior oropharynx. NECK: Full range of motion. Supple. Trachea midline. LUNGS: Wheezes and rhonchi. Harsh bronchitic sounds with cough. No respiratory distress. HEART: Regular rate and rhythm. No murmurs, gallops, or rubs. ABDOMEN: Soft, non-tender. Non-distended. Bowel sounds present in all 4 quadrants. No guarding, rigidity, or rebound. EXTREMITIES: Moves all 4 extremities spontaneously. No edema, radial and dorsalis pedis pulses 2/4 bilaterally. No cyanosis. NEUROLOGICAL: Alert and oriented x3. Normal speech. PSYCH: Normal affect, normal mood. SKIN: Warm, dry, normal turgor. No rashes or lesions noted. Course - Re-evaluation Re-evalutation: 12/23/18 20:40 The patient's albuterol inhaler had only 5 inhalations left on it. He was thinking that it had 15. When he was seen here earlier today, he was supposed to get a prescription for prednisone, but it was not printed out. He will receive the prednisone prescription on this visit, and will receive a dispense inhaler and a prescription for an inhaler. - Vital Signs Vital signs: Temp Pulse Resp BP Pulse Ox 98.6 F 128 H 24 H 122/73 94 12/23/18 17:07 12/23/18 17:07 12/23/18 17:07 12/23/18 17:07 12/23/18 17:07 - Laboratory Result Diagrams: 12/23/18 18:01 12/23/18 18:01 Laboratory results interpreted by me: 12/23/18 12/23/18 18:01 18:01 RBC 5.62 H MCH 26.9 L RDW 14.8 H Creatinine 1.33 H Discharge - Discharge Clinical Impression: Asthmatic bronchitis Qualifiers: Asthma severity: mild Asthma persistence: intermittent Asthma complication ty pe: with acute exacerbation Qualified Code(s): J45.21 - Mild intermittent asthma with (acute) exacerbation Condition: Stable Disposition: HOME, SELF-CARE Additional Instructions: Bronchitis with Bronchospasm (Wheezing) You have bronchitis with bronchospasm (wheezing). Sometimes people develop wheezing with a chest cold. This occurs either because of an underlying tendency toward asthma or because the virus itself irritates the bronchial tubes. This irritation causes cough, shortness of breath, and wheezing. Emergency treatment of bronchospasm may include adrenaline shots or bronchodilator aerosol. You may feel lightheaded and have a rapid pulse for an hour or two. Rest and get plenty of fluids. At home, we'll treat you with a bronchodilator inhaler. Corticosteroids may be required for some patients. Until you recover, avoid chemical fumes, dusts, pollens, and exercising in very cold or dry air. If you smoke, stop now! Most cases of bronchitis get better without antibiotics. We prescribe antibiotics when we believe bacteria are damaging your airways, or if there's high risk the bronchitis will worsen into pneumonia. Increase your fluid intake. A cool mist humidifier may make your lungs more comfortable. An expectorant (cough medicine that loosens phlegm) can help. Repeated episodes of bronchitis and bronchospasm may result in lung damage -- for example, chronic bronchitis, recurrent pneumonias, or emphysema. If you develop a fever, increased wheezing, chest pain, or severe shortness of breath, you should contact the doctor immediately. Use the inhaler as needed for wheezing. Start the prednisone prescription tomorrow. Drink lots of fluids throughout the day in the evening. Try taking Robitussin-DM to help control your cough. Follow-up with your primary care provider if not improving over the next few days. RETURN TO THE EMERGENCY ROOM IF ANY NEW OR WORSENING SYMPTOMS. Prescriptions: Albuterol Sulfate [Proair Hfa Inhalation Aerosol 8.5 gm Mdi] 2 puff IH Q4 PRN #1 mdi PRN Reason: Prednisone [Deltasone 20 mg Tablet] 20 mg PO TID #15 tablet Scribe Attestation: 12/23/18 20:41 I personally performed the services described in the documentation, reviewed and edited the documentation which was dictated to the scribe in my presence, and it accurately records my words and actions. I personally performed the services described in the documentation, reviewed and edited the documentation which was dictated to the scribe in my presence, and it accurately records my words and actions.
== END 2018-12-23 21:44 | disposition home or self-care (01) ==
LOC: ER 17:00
DX: J45.21 Mild intermittent asthma with (acute) exacerbation (principal); F17.200 Nicotine dependence, unspecified, uncomplicated; Z90.49 Acquired absence of other specified parts of digestive tract
CPT/HCPCS: 94640; 99283; 96374; 36415; 85025; 80053; 71045; J2930; J3490; J7620

== ENCOUNTER 2018-12-26 03:51 | Emergency (ER) | payer MEDICAID ==
[2018-12-26 03:56] VITALS: BP 125/72
[2018-12-26] MEDS ORDERED: DEXAMETHASONE SOD PHOS INJ 10 MG/1 ML VIAL IM ONE (04:22)
[2018-12-26] MEDS ORDERED: ALBUTEROL SULFATE HFA (90 MCG/PUFF) 8 GM MDI (1 MDI/ER DISP) IH ONE (04:22)
--- NOTE | 2018-12-26 04:23 | ER Document Report ---
ED General - General Chief Complaint: Cough Stated Complaint: COUGH Time Seen by Provider: 12/26/18 04:16 Notes: Patient is a 33-year-old male well-known to me who presents with complaint of increasing cough. No fevers. No vomiting. Some intermittent wheezing. He does have an inhaler which he says still helps but is been having usual but more frequently. He denies smoking. He has no other complaints at this time. TRAVEL OUTSIDE OF THE [place] IN LAST 30 DAYS: No - Related Data Allergies/Adverse Reactions: No Known Allergies Allergy (Verified 12/17/18 15:09) Past Medical History - Social History Smoking Status: Former Smoker Frequency of alcohol use: None Drug Abuse: None Family History: Reviewed & Not Pertinent, Other - Unknown Patient has suicidal ideation: No Patient has homicidal ideation: No Pulmonary Medical History: Reports: Hx Asthma Renal/ Medical History: Denies: Hx Peritoneal Dialysis GI Medical History: Reports: Hx Irritable Bowel - constipation Musculoskeletal Medical History: Reports Hx Arthritis, Reports Hx Musculoskeletal Trauma Psychiatric Medical History: Reports: Hx Anxiety, Hx Bipolar Disorder, Hx Depression, Hx Personality Disorder, Hx Schizoaffective Disorder, Hx Schizophrenia Past Surgical History: Reports: Hx Abdominal Surgery, Hx Appendectomy, Hx Cholecystectomy, Hx Orthopedic Surgery - finger - Immunizations Immunizations up to date: Yes Hx Diphtheria, Pertussis, Tetanus Vaccination: Yes - 2012 Hx Pneumococcal Vaccination: 08/23/00 Review of Systems - Review of Systems Notes: My Normal Review Basic REVIEW OF SYSTEMS: CONSTITUTIONAL : Denies fever, chills, or sweats. Denies recent illness. EENT: Denies eye, ear, throat, or mouth pain or symptoms. Denies nasal or sinus congestion. CARDIOVASCULAR: Denies chest pain. RESPIRATORY: intractable coughing GASTROINTESTINAL: Denies abdominal pain. Denies nausea, vomiting, or diarrhea. SKIN: Denies rash or skin lesions. NEUROLOGICAL: Denies altered mental status or loss of consciousness. ALL OTHER SYSTEMS REVIEWED AND NEGATIVE. Physical Exam - Vital signs Vitals: Temp Pulse Resp BP Pulse Ox 97.7 F 57 L 18 125/72 96 12/26/18 03:52 12/26/18 03:52 12/26/18 03:52 12/26/18 03:52 12/26/18 03:52 - Notes Notes: General Appearance: Well nourished, alert, cooperative, no acute distress, no obvious discomfort. Dry cough on exam Vitals: reviewed, See vital signs table. Head: no swelling or tenderness to the head Eyes: PERRL, EOMI, Conjuctiva clear Mouth: No decreasd moisture Lungs: Few scattered wheezes, No rales, No rhonci, No accessory muscle use, good air exchange bilaterally. Heart: Normal rate, Regular rythm, No murmur, no rub Neuro: speech clear, oriented x 3, normal affect, responds appropriately to questions. Course - Re-evaluation Re-evalutation: 12/26/18 06:56 Patient has just a few scattered wheezes consistent with mild bronchitis. Given a shot of Decadron. I will place him on a Brio inhaler. I encouraged him to stay away from cigarette smoke. I encouraged him return to ER immediately if he has fevers, wheezing not responding to his inhaler, difficulty breathing and not improving with breathing treatment, or if he feels that he is worsening in any way. Patient agrees with plan and will be discharged home. I do not suspect p neumonia as the patient has equal bilateral lung sounds and no fever. Dictation of this chart was performed using voice recognition software; therefore, there may be some unintended grammatical errors. - Vital Signs Vital signs: Temp Pulse Resp BP Pulse Ox 97.7 F 57 L 18 125/72 96 12/26/18 03:52 12/26/18 03:52 12/26/18 03:52 12/26/18 03:52 12/26/18 03:52 Discharge - Discharge Clinical Impression: Acute bronchitis Qualifiers: Bronchitis organism: unspecified organism Qualified Code(s): J20.9 - Acute bronchitis, unspecified Condition: Good Disposition: HOME, SELF-CARE Additional Instructions: BRONCHITIS WITH BRONCHOSPASM (WHEEZING): You have bronchitis with bronchospasm (wheezing). Sometimes people develop wheezing with a chest cold. This occurs either because of an underlying tendency toward asthma or because the virus itself irritates the bronchial tubes. This irritation causes cough, shortness of breath, and wheezing. Emergency treatment of bronchospasm may include adrenaline shots or bronchodilator aerosol. You may feel lightheaded and have a rapid pulse for an hour or two. Rest and get plenty of fluids. At home, we'll treat you with a bronchodilator inhaler. Corticosteroids may be required for some patients. Until you recover, avoid chemical fumes, dusts, pollens, and exercising in very cold or dry air. If you smoke, stop now! Most cases of bronchitis get better without antibiotics. We prescribe antibiotics when we believe bacteria are damaging your airways, or if there's high risk the bronchitis will worsen into pneumonia. Increase your fluid intake. A cool mist humidifier may make your lungs more comfortable. An expectorant (cough medicine that loosens phlegm) can help. Repeated episodes of bronchitis and bronchospasm may result in lung damage -- for example, chronic bronchitis, recurrent pneumonias, or emphysema. If you develop a fever, increased wheezing, chest pain, or severe shortness of breath, you should contact the doctor immediately. INHALED BRONCHODILATORS: You have received a treatment of and/or prescription for an inhaled bronchodilator -- a medication which stimulates the airways in the lung to dilate. This improves the flow of air in asthma, bronchitis, and emphysema. These medicines have some similarity to adrenaline, and can cause similar side effects: shakiness, racing heart, and a sense of nervousness. These side effects decrease with time. Contact your doctor if these side effects are severe. Do not over-use the medicine. Too-frequent use of the inhaler may make it ineffective. Call your doctor if the inhaler is not controlling your symptoms at the prescribed doses. STEROID MEDICATION: You have been given an injection of a medicine of the cortisone/steroid class. This medication is used to control inflammation or allergy. Satish t is usually only given for a short period of time, until the acute process subsides. There are usually no side effects from short-term use of cortisone-like medications. Some persons feel an increased sense of well-being and are not sleepy at bedtime. Long-term use of cortisone medications is best avoided, unless required for a severe condition. If your condition does not remit, or relapses after the course of corticosteroid medication, you should consult your physician. FOLLOW-UP CARE: If you have been referred to a physician for follow-up care, call the physicians office for an appointment as you were instructed or within the next two days. If you experience worsening or a significant change in your symptoms, notify the physician immediately or return to the Emergency Department at any time for re-evaluation. Please use inhaler as 2 puffs every 2 hours as needed for wheezing. Please return to the ER immediately if you have fevers, difficulty breathing, vomiting, or if you feel well.
== END 2018-12-26 04:52 | disposition home or self-care (01) ==
LOC: ER 03:51
DX: J20.9 Acute bronchitis, unspecified (principal); J45.909 Unspecified asthma, uncomplicated; R05 Cough
CPT/HCPCS: 99283; 96372; J1100; J3490

== ENCOUNTER 2018-12-26 09:25 | Emergency (ER) | payer MEDICAID ==
--- NOTE | 2018-12-26 10:42 | RADIOLOGY REPORT (SQ) ---
EXAM DESCRIPTION: CHEST 2 VIEWS COMPLETED DATE/TIME: 12/26/2018 10:31 am REASON FOR STUDY: cough COMPARISON: 12/23/2018 EXAM PARAMETERS: NUMBER OF VIEWS: two views TECHNIQUE: Digital Frontal and Lateral radiographic views of the chest acquired. RADIATION DOSE: NA LIMITATIONS: none FINDINGS: LUNGS AND PLEURA: No opacities, masses or pneumothorax. No pleural effusion. MEDIASTINUM AND HILAR STRUCTURES: No masses or contour abnormalities. HEART AND VASCULAR STRUCTURES: Heart normal size. No evidence for failure. BONES: No acute findings. HARDWARE: None in the chest. OTHER: No other significant finding. IMPRESSION: 1. No significant interval changes since the prior examination dated 12/23/2018. No acut e findings. TECHNICAL DOCUMENTATION: JOB ID: [id number] [employer]- All Rights Reserved Reading location - IP/workstation name: [email or web address]
--- NOTE | 2018-12-26 11:21 | ER Document Report ---
ED General - General Chief Complaint: Respiratory Distress Stated Complaint: WEAKNESS Time Seen by Provider: 12/26/18 09:49 TRAVEL OUTSIDE OF THE [place] IN LAST 30 DAYS: No - HPI Notes: Patient is a 33-year-old male who presents to the emergency department for evaluation. He came in via EMS, believes he has pneumonia. He states he has been coughing. He states he "googled" his symptoms and believes its pneumonia. He was actually at his doctor's office but believed it was taking too long to be seen, so he called EMS and presents here. No fevers. No shortness of breath. No nausea or vomiting. - Related Data Allergies/Adverse Reactions: No Known Allergies Allergy (Verified 12/17/18 15:09) Past Medical History - General Information source: Patient - Social History Smoking Status: Never Smoker Chew tobacco use (# tins/day): No Frequency of alcohol use: None Drug Abuse: None Family History: Reviewed & Not Pertinent, Other - Unknown Patient has suicidal ideation: No Patient has homicidal ideation: No Pulmonary Medical History: Reports: Hx Asthma Renal/ Medical History: Denies: Hx Peritoneal Dialysis GI Medical History: Reports: Hx Irritable Bowel - constipation Musculoskeletal Medical History: Reports Hx Arthritis, Reports Hx Musculoskeletal Trauma Psychiatric Medical History: Reports: Hx Anxiety, Hx Bipolar Disorder, Hx Depression, Hx Personality Disorder, Hx Schizoaffective Disorder, Hx Schizophrenia Past Surgical History: Reports: Hx Abdominal Surgery, Hx Appendectomy, Hx Cholecystectomy, Hx Orthopedic Surgery - finger - Immunizations Immunizations up to date: Yes Hx Diphtheria, Pertussis, Tetanus Vaccination: Yes - 2012 Hx Pneumococcal Vaccination: 08/23/00 Review of Systems - Review of Systems Constitutional: See HPI EENT: No symptoms reported Cardiovascular: No symptoms reported Respiratory: See HPI Gastrointestinal: No symptoms reported Genitourinary: No symptoms reported Musculoskeletal: No symptoms reported Skin: No symptoms reported Physical Exam - Vital signs Vitals: Pulse Ox 96 12/26/18 09:33 - Notes Notes: Vital signs reviewed, please refer to chart. Head is normocephalic, atraumatic. Pupils equal round, reactive to light. Neck is supple without meningismus. Heart is regular rate and rhythm. Lungs are clear to auscultation bilaterally. Abdomen is soft, nontender, normoactive bowel sounds throughout. Extremities without cyanosis, clubbing. Posterior calves are nontender. Peripheral pulses are equal. Skin is warm and dry. Course - Re-evaluation Re-evalutation: 12/26/18 11:20 Patient presents to the emergency department for evaluation. On arrival he is not hypoxic. He is breathing without any difficulty. His chest x-ray is found to be negative. He is to follow-up with primary care, return to the ED with worsening or new concerning symptoms. - Vital Signs Vital signs: Temp Pulse Resp BP Pulse Ox 16 108/62 98 12/26/18 10:00 12/26/18 10:00 12/26/18 10:00 - Diagnostic Test Radiology reviewed: Reports reviewed Radiology results interpreted by me: 12/26/18 11:20 Chest X-Ray 12/26/18 09:49 IMPRESSION: 1. No significant interval changes since the prior examination dated 12/23/2018. No acute findings. Discharge - Discharge Clinical Impression: Cough, Weakness Condition: Stable Disposition: HOME, SELF-CARE Additional Instructions: Your x-ray was normal, no pneumonia was seen. Follow-up with your primary care physician this week. Return to the emergency department with worsening or new concerning symptoms.
[2018-12-26 12:49] VITALS: BP 115/59
== END 2018-12-26 12:47 | disposition home or self-care (01) ==
LOC: ER 09:25
DX: R05 Cough (principal); R53.1 Weakness; J45.909 Unspecified asthma, uncomplicated
CPT/HCPCS: 71046; 99285

== ENCOUNTER 2018-12-31 17:32 | Emergency (ER) | payer MEDICAID ==
[2018-12-31 17:46] VITALS: BP 117/64
[2018-12-31] MEDS ORDERED: ALBUTEROL SULFATE HFA (90 MCG/PUFF) 200 PUFF/8.5 GM MDI IH ONE (17:46)
--- NOTE | 2018-12-31 17:52 | ER Document Report ---
HPI - HPI Time Seen by Provider: 12/31/18 17:46 Pain Level: 2 Notes: Patient is a 33-year-old male past medical history of asthma presenting to the emergency department with request for medication refill of his albuterol. Patient states that he uses as albuterol daily, states he has been out of albuterol for 2 days. Patient denies any cough congestion, fever or any other acute symptoms. - REPRODUCTIVE Reproductive: DENIES: : Past Medical History - General Information source: Patient - Social History Smoking Status: Current Some Day Smoker Frequency of alcohol use: None Drug Abuse: None Family History: Reviewed & Not Pertinent, Other - Unknown Pulmonary Medical History: Reports: Hx Asthma Renal/ Medical History: Denies: Hx Peritoneal Dialysis GI Medical History: Reports: Hx Irritable Bowel - constipation Musculoskeletal Medical History: Reports Hx Arthritis, Reports Hx Musculoskeletal Trauma Psychiatric Medical History: Reports: Hx Anxiety, Hx Bipolar Disorder, Hx Depression, Hx Personality Disorder, Hx Schizoaffective Disorder, Hx Schizophrenia Past Surgical History: Reports: Hx Abdominal Surgery, Hx Appendectomy, Hx Cholecystectomy, Hx Orthopedic Surgery - finger - Immunizations Immunizations up to date: Yes Hx Diphtheria, Pertussis, Tetanus Vaccination: Yes - 2012 Hx Pneumococcal Vaccination: 08/23/00 Vertical Provider Document - CONSTITUTIONAL Notes: PHYSICAL EXAMINATION: GENERAL: Well-appearing, well-nourished and in no acute distress. HEAD: Atraumatic, normocephalic. EYES: Pupils equal round extraocular movements intact, conjunctiva are normal. ENT: Nares patent NECK: Normal range of motion LUNGS: No respiratory distress, lung sounds clear and equal bilaterally. Musculoskeletal: Normal range of motion NEUROLOGICAL: Normal speech, normal gait. PSYCH: Normal mood, normal affect. SKIN: Warm, Dry, normal turgor, no rashes or lesions noted. - INFECTION CONTROL TRAVEL OUTSIDE OF THE [place] IN LAST 30 DAYS: No Course - Re-evaluation Re-evalutation: 12/31/18 17:50 Lung sounds are clear and equal bilaterally. Patient will be given albuterol dispense as he is unable to afford any prescription medication. - Vital Signs Vital signs: Temp Pulse Resp BP Pulse Ox 99.6 F 85 18 117/64 95 12/31/18 17:45 12/31/18 17:45 12/31/18 17:45 12/31/18 17:45 12/31/18 17:45 Discharge - Discharge Clinical Impression: Encounter for medication refill Condition: Stable Disposition: HOME, SELF-CARE Additional Instructions: Please take medication as prescribed. Return to the emergency department with any new or worsening symptoms. Referrals: [facility] [Outside] - Follow up as needed
== END 2018-12-31 17:52 | disposition home or self-care (01) ==
LOC: ER 17:32
DX: Z76.0 Encounter for issue of repeat prescription (principal); J45.909 Unspecified asthma, uncomplicated; F17.200 Nicotine dependence, unspecified, uncomplicated
CPT/HCPCS: 99281; J3490

== ENCOUNTER 2019-01-01 02:05 | Emergency (ER) | payer MEDICAID ==
[2019-01-01] MEDS ORDERED: IPRATROPIUM/ALBUTEROL 0.5-2.5 MG/3 ML AMPUL NEB ONE ×2 (02:30→02:32)
[2019-01-01] MEDS ORDERED: MAG HYDROX/AL HYDROX/SIMETH SUSP 30 ML UDCUP PO ONE (02:32)
[2019-01-01] MEDS ORDERED: LIDOCAINE 2% VISCOUS SOLN 20 ML UDCUP PO ONE (02:32)
[2019-01-01] MEDS ORDERED: METOCLOPRAMIDE HCL ORAL SOLN 10 MG/10 ML UDCUP PO ONE (02:32)
--- NOTE | 2019-01-01 02:58 | ER Document Report ---
ED General - General Chief Complaint: Medication Refill Stated Complaint: DIFFICULTY BREATHING Time Seen by Provider: 01/01/19 02:22 Mode of Arrival: Ambulatory Information source: Patient TRAVEL OUTSIDE OF THE [place] IN LAST 30 DAYS: No - HPI Notes: Patient is a 33-year-old male with a history of asthma who presents to the emergency department for medication refill. Patient states that he was in the emergency department yesterday and was given an albuterol inhaler to go. Patient states that it was red in color but "the blue one in the past that I h ave used works much better." Patient states that throughout the day he has attempted to use the red albuterol inhaler but it has not worked. Patient denies fever. Patient denies chest pain. - Related Data Allergies/Adverse Reactions: No Known Allergies Allergy (Verified 12/31/18 17:34) Past Medical History - General Information source: Patient - Social History Smoking Status: Unknown if Ever Smoked Family History: Reviewed & Not Pertinent, Other - Unknown Patient has suicidal ideation: No Patient has homicidal ideation: No - Past Medical History Cardiac Medical History: Reports: None Pulmonary Medical History: Reports: Hx Asthma EENT Medical History: Reports: None Neurological Medical History: Reports: None Endocrine Medical History: Reports: None Renal/ Medical History: Reports: None. Denies: Hx Peritoneal Dialysis Malignancy Medical History: Reports None GI Medical History: Reports: None, Hx Irritable Bowel - constipation Musculoskeletal Medical History: Reports Hx Arthritis, Reports Hx Musculoskeletal Trauma Psychiatric Medical History: Reports: Hx Anxiety, Hx Bipolar Disorder, Hx De pression, Hx Personality Disorder, Hx Schizoaffective Disorder, Hx Schizophrenia Traumatic Medical History: Reports: None Infectious Medical History: Reports: None Past Surgical History: Reports: Hx Abdominal Surgery, Hx Appendectomy, Hx Cholecystectomy, Hx Orthopedic Surgery - finger - Immunizations Immunizations up to date: Yes Hx Diphtheria, Pertussis, Tetanus Vaccination: Yes - 2012 Hx Pneumococcal Vaccination: 08/23/00 Review of Systems - Review of Systems Constitutional: No symptoms reported EENT: No symptoms reported Cardiovascular: No symptoms reported Respiratory: See HPI Gastrointestinal: No symptoms reported Genitourinary: No symptoms reported Male Genitourinary: No symptoms reported Musculoskeletal: No symptoms reported Skin: No symptoms reported Hematologic/Lymphatic: No symptoms reported Neurological/Psychological: No symptoms reported Physical Exam - Vital signs Vitals: Temp Pulse Resp BP Pulse Ox 99.2 F 73 24 H 99/62 L 92 01/01/19 02:13 01/01/19 02:13 01/01/19 02:13 01/01/19 02:13 01/01/19 02:13 Interpretation: Tachypneic - Notes Notes: GENERAL: Well-appearing, well-nourished and in no acute distress. HEAD: Atraumatic, normocephalic. EYES: Pupils equal round and reactive to light, extraocular movements intact, sclera anicteric, conjunctiva are normal. ENT: TMs normal, nares patent, oropharynx clear without exudates. Moist mucous membranes. NECK: Normal range of motion, supple without lymphadenopathy or JVD. LUNGS: Breath sounds clear to auscultation bilaterally and equal. No wheezes rales or rhonchi. HEART: Regular rate and rhythm without murmurs, rubs or gallops. ABDOMEN: Soft, nontender, normoactive bowel sounds. No guarding, no rebound. No masses appreciated. EXTREMITIES: Normal range of motion, no pitting or edema. No clubbing or cyanosis. NEUROLOGICAL: Cranial nerves II through XII grossly intact. Normal speech, normal gait. PSYCH: Normal mood, normal affect. SKIN: Warm, Dry, normal turgor, no rashes or lesions noted. Course - Re-evaluation Re-evalutation: 01/01/19 Upon initial evaluation patient sitting on the side of the bed. Patient states that he feels short of breath. Patient's oxygen on room air is 95 to 96%. Reassured patient. Patient's lungs were clear bilaterally throughout. Patient coughing and states that he feels like he has a spasming in his throat. Throat was visualized and airway is patent, there is no swelling to the pharynx or tongue. We will give GI cocktail and DuoNeb. States after taking a few sips of the GI cocktail it has helped with his "spasming." Sitting upright on stretcher and his oxygen level is 95 to 96% on room air. Patient states that he does have a spacer. Discussed discharge plan with patient. Patient states that he gets paid on Wednesday which is in 1 day and would like a prescription for the albuterol inhaler. - Vital Signs Vital signs: Temp Pulse Resp BP Pulse Ox 99.2 F 73 19 112/69 99 01/01/19 02:13 01/01/19 02:13 01/01/19 04:01 01/01/19 04:01 01/01/19 04:01 Discharge - Discharge Clinical Impression: Cough Asthma Qualifiers: Asthma severity: mild Asthma persistence: unspecified Asthma complication type: unspecified Qualified Code(s): J45.909 - Unspecified asthma, uncomplicated Condition: Stable Disposition: HOME, SELF-CARE Additional Instructions: Today you were seen in the emergency department to have your albuterol inhaler refilled. You currently have the red albuterol inhaler that was given to you yesterday, and you state that there is still medication in it. I will prescribe another inhaler for you that you can get filled on Wednesday as we had discussed since you get paid. Your oxygen level is 96 to 97%. After a nebulizer treatment you reported that you feel better your cough has improved. Please return to the emergency department for any worsening shortness of breath, cough, chest pain, or any other concerning signs or symptoms. Asthma You have been diagnosed as having asthma. This is a condition where there is episodic tightness in the bronchial tubes. Allergies, infections, and polluted or cold air may be contributing factors. Emergency treatment of a severe asthma attack may include adrenaline shots, or bronchodilator aerosol. You may feel lightheaded, have a decreased exercise tolerance and a rapid pulse for an hour or two. Rest and get plenty of fluids. Home treatment of asthma requires bronchodilator drugs. These can be administered by injection, inhalation, or by mouth. Antibiotics and corticosteroids may be required for some patients. You should avoid chemical fumes, dusts, pollens, and exercising in very cold or dry air. If you smoke, stop!! If you develop a fever, increased wheezing, chest pain, or severe shortness of breath, you should contact the doctor immediately Prescriptions: Albuterol Sulfate [Proair HFA Inhalation Aerosol 8.5 gm MDI] 2 puff IH Q4H PRN #1 mdi PRN Reason:
[2019-01-01 04:11] VITALS: BP 112/69
== END 2019-01-01 04:12 | disposition home or self-care (01) ==
LOC: ER 02:05
DX: J45.909 Unspecified asthma, uncomplicated (principal); Z76.0 Encounter for issue of repeat prescription; R05 Cough; R06.02 Shortness of breath
CPT/HCPCS: 94640; 99281; J3490 ×3; J7620

== ENCOUNTER 2019-01-02 02:43 | Emergency (ER) | payer MEDICAID ==
[2019-01-02 02:49] VITALS: BP 134/67
[2019-01-02] MEDS ORDERED: MAG HYDROX/AL HYDROX/SIMETH SUSP 30 ML UDCUP PO ONE (03:51)
--- NOTE | 2019-01-02 03:56 | ER Document Report ---
HPI - HPI Time Seen by Provider: 01/02/19 03:42 Pain Level: 3 Context: Patient is a 33 year old male that comes to the Emergency Department for two complaints. First complaint is that he wants his lungs to be checked, he states he was here last night and received an inhaler which he filled, he states it is helping but he still wants to be checked. He denies difficulty breathing at this time, denies fever/chills, denies chest pain. Second complaint is that he was hoping for something to drink "for the stomach". However he denies abdominal pain, abnormal bowel movements. He has been on prednisone recently. He has a history of asthma and schizophrenia. - CONSTITUTIONAL Constitutional: DENIES: Fever - RESPIRATORY Respiratory: REPORTS: Coughing. DENIES: Trouble Breathing - REPRODUCTIVE Reproductive: DENIES: : Past Medical History - General Information source: Patient - Social History Smoking Status: Never Smoker Frequency of alcohol use: None Drug Abuse: None Lives with: Homeless Family History: Reviewed & Not Pertinent, Other - Unknown Patient has suicidal ideation: No Patient has homicidal ideation: No Pulmonary Medical History: Reports: Hx Asthma Renal/ Medical History: Denies: Hx Peritoneal Dialysis GI Medical History: Reports: Hx Irritable Bowel - constipation Musculoskeletal Medical History: Reports Hx Arthritis, Reports Hx Musculoskeletal Trauma Psychiatric Medical History: Reports: Hx Anxiety, Hx Bipolar Disorder, Hx Depression, Hx Personality Disorder, Hx Schizoaffective Disorder, Hx Schizophrenia Past Surgical History: Reports: Hx Abdominal Surgery, Hx Appendectomy, Hx Cholecystectomy, Hx Orthopedic Surgery - finger - Immunizations Immunizations up to date: Yes Hx Diphtheria, Pertussis, Tetanus Vaccination: Yes - 2012 Hx Pneumococcal Vaccination: 08/23/00 Vertical Provider Document - CONSTITUTIONAL General Appearance: WD/WN - Slightly unkempt, No Apparent Distress - INFECTION CONTROL TRAVEL OUTSIDE OF THE [place] IN LAST 30 DAYS: No - HEENT HEENT: Atraumatic, Normocephalic - RESPIRATORY Respiratory: Breath Sounds Normal, No Respiratory Distress. negative: Wheezing - CARDIOVASCULAR Cardiovascular: Regular Rate, Regular Rhythm - GI/ABDOMEN Gastrointestinal: Abdomen Soft, Abdomen Non-Tender - BACK Back: Normal Inspection - MUSCULOSKELETAL/EXTREMETIES Musculoskeletal/Extremeties: MAEW, FROM, Non-Tender - NEURO Level of Consciousness: Awake, Alert, Appropriate - DERM Integumentary: Warm, Dry, No Rash Course - Re-evaluation Re-evalutation: Clear lungs, well-appearing patient, soft benign abdomen, unremarkable vital signs. I am very familiar with this patient. There does not appear to be any change from his normal baseline. Patient asking for a dose of Maalox and discharge. Discussed return precautions. Patient states understanding and agreement. - Vital Signs Vital signs: Temp Pulse Resp BP Pulse Ox 99.2 F 87 18 134/67 H 95 01/02/19 02:48 01/02/19 02:48 01/02/19 02:48 01/02/19 02:48 01/02/19 02:48 Discharge - Discharge Clinical Impression: Cough GERD (gastroesophageal reflux disease) Qualifiers: Esophagitis presence: without esophagitis Qualified Code(s): K21.9 - Gastro- esophageal reflux disease without esophagitis Condition: Stable Disposition: HOME, SELF-CARE Additional Instructions: Continue your inhaler as needed for wheezing/cough. Take the Maalox if needed for symptoms of gastrointestinal upset. Follow-up with primary care. Return if you worsen including difficulty breathing, fever, vomiting, abdominal pain, or any other concerning symptoms. Prescriptions: Mag Hydrox/Al Hydrox/Simeth [Maalox Suspension] 30 ml PO Q6H PRN #1 oral.susp PRN Reason:
== END 2019-01-02 04:18 | disposition home or self-care (01) ==
LOC: ER 02:43
DX: K21.9 Gastro-esophageal reflux disease without esophagitis (principal); R05 Cough; J45.909 Unspecified asthma, uncomplicated; Z59.0 Homelessness
CPT/HCPCS: 99283; J3490

== ENCOUNTER 2019-01-02 06:43 | Emergency (ER) | payer MEDICAID ==
[2019-01-02 06:55] VITALS: BP 135/89
--- NOTE | 2019-01-02 07:39 | ER Document Report ---
ED General - General Chief Complaint: Epigastric Pain Stated Complaint: ABDOMINAL PAIN Time Seen by Provider: 01/02/19 07:39 TRAVEL OUTSIDE OF THE [place] IN LAST 30 DAYS: No - HPI Patient complains to provider of: Constipation Notes: Patient well-known to the emergency department presents with concern for constipation. Patient just left the emergency department approximately 2 hours ago with prescription for Maalox for upset stomach. States he forgot to ask for something to help him move his bowels more regularly. Denies all pain symptoms at this time - Related Data Allergies/Adverse Reactions: No Known Allergies Allergy (Verified 01/02/19 02:54) Past Medical History - Social History Smoking Status: Unknown if Ever Smoked Family History: Reviewed & Not Pertinent, Other - Unknown Pulmonary Medical History: Reports: Hx Asthma Renal/ Medical History: Denies: Hx Peritoneal Dialysis GI Medical History: Reports: Hx Irritable Bowel - constipation Musculoskeletal Medical History: Reports Hx Arthritis, Reports Hx Musculoskeletal Trauma Psychiatric Medical History: Reports: Hx Anxiety, Hx Bipolar Disorder, Hx Depression, Hx Personality Disorder, Hx Schizoaffective Disorder, Hx Schizophrenia Past Surgical History: Reports: Hx Abdominal Surgery, Hx Appendectomy, Hx Cholecystectomy, Hx Orthopedic Surgery - finger - Immunizations Immunizations up to date: Yes Hx Diphtheria, Pertussis, Tetanus Vaccination: Yes - 2012 Hx Pneumococcal Vaccination: 08/23/00 Review of Systems - Review of Systems Notes: REVIEW OF SYSTEMS: CONSTITUTIONAL: -fevers, -chills EENT: -eye pain, -difficulty swallowing, -nasal congestion CARDIOVASCULAR: -chest pain, -syncope. RESPIRATORY: -cough, -SOB GASTROINTESTINAL: -abdominal pain, -nausea, -vomiting, -diarrhea GENITOURINARY: -dysuria, -hematuria MUSCULOSKELETAL: -back pain, -neck pain SKIN: -rash or skin lesions. HEMATOLOGIC: -easy bruising or bleeding. LYMPHATIC: -swollen, enlarged glands. NEUROLOGICAL: -altered mental status or loss of consciousness, -headache, - neurologic symptoms PSYCHIATRIC: -anxiety, -depression. ALL OTHER SYSTEMS REVIEWED AND NEGATIVE. Physical Exam - Vital signs Vitals: Temp Pulse Resp BP Pulse Ox 98.0 F 58 L 24 H 111/67 98 01/02/19 06:53 01/02/19 06:53 01/02/19 06:53 01/02/19 06:53 01/02/19 06:53 - Notes Notes: PHYSICAL EXAMINATION: GENERAL: Well-appearing, well-nourished and in no acute distress. HEAD: Atraumatic, normocephalic. EYES: Pupils equal round and reactive to light, extraocular movements intact, sclera anicteric, conjunctiva are normal. ENT: nares patent, oropharynx clear without exudates. Moist mucous membranes. NECK: Normal range of motion, supple without lymphadenopathy LUNGS: Breath sounds clear to auscultation bilaterally and equal. No wheezes rales or rhonchi. HEART: Regular rate and rhythm without murmurs ABDOMEN: Soft, nontender, normoactive bowel sounds. No guarding, no rebound. No masses appreciated. EXTREMITIES: Normal range of motion, no pitting or edema. No cyanosis. NEUROLOGICAL: Cranial nerves grossly intact. Normal speech, normal gait. Normal sensory and motor exams. PSYCH: Normal mood, normal affect. SKIN: Warm, Dry, normal turgor, no rashes or lesions noted. Course - Re-evaluation Re-evalutation: 01/02/19 07:45 Well-appearing young man in no acute distress stable vital signs within normal limits. Reassuring physical exam as well. Patient given prescription for MiraLAX - Vital Signs Vital signs: Temp Pulse Resp BP Pulse Ox 98.0 F 58 L 24 H 111/67 98 01/02/19 06:53 01/02/19 06:53 01/02/19 06:53 01/02/19 06:53 01/02/19 06:53 Discharge - Discharge Clinical Impression: Constipation Qualifiers: Constipation type: unspecified constipation type Qualified Code(s): K59.00 - Constipation, unspecified Condition: Stable Disposition: HOME, SELF-CARE Instructions: Constipation ([facility]) Prescriptions: Polyethylene Glycol 3350 [Miralax] 1 cap PO DAILY #527 powder
== END 2019-01-02 08:02 | disposition home or self-care (01) ==
LOC: ER 06:43
DX: K59.00 Constipation, unspecified (principal); J45.909 Unspecified asthma, uncomplicated
CPT/HCPCS: 99283

== ENCOUNTER 2019-01-02 20:13 | Emergency (ER) | payer MEDICAID ==
[2019-01-02 20:42] VITALS: BP 130/89
--- NOTE | 2019-01-02 20:54 | ER Document Report ---
ED Medical Screen (RME) - General Chief Complaint: Shortness Of Breath Stated Complaint: THROAT AND CHEST STIFF Time Seen by Provider: 01/02/19 20:50 Mode of Arrival: Ambulatory Information source: Patient Notes: 33-year-old male presented to ED for complaint of irritation to his throat and lungs. He states he was cleaning out his bag with some event from in the bag got in his throat chest and now is very uncomfortable and "stiff he " oriented respirations regular and unlabored lungs are clear to auscultation. He does have a history of arthritis asthma bipolar anxiety and schizophrenia. He is homeless. He does have a history of appendectomy gallbladder removal and a finger fracture. He is here frequently. I have greeted and performed a rapid initial assessment of this patient. A comprehensive ED assessment and evaluation of the patient, analysis of test results and completion of medical decision making process will be conducted by an additional ED providers. Dictation of this chart was performed using voice recognition software; therefore, there may be some unintended grammatical errors. TRAVEL OUTSIDE OF THE [place] IN LAST 30 DAYS: No - Related Data Allergies/Adverse Reactions: No Known Allergies Allergy (Verified 01/02/19 02:54) Past Medical History - Social History Chew tobacco use (# tins/day): No Frequency of alcohol use: None Drug Abuse: None Family history: Reviewed & Not Pertinent Pulmonary Medical History: Reports: Hx Asthma Renal/ Medical History: Denies: Hx Peritoneal Dialysis GI Medical History: Reports: Hx Irritable Bowel - constipation Musculoskeltal Medical History: Reports Hx Arthritis, Reports Hx Musculoskeletal Trauma Psychiatric Medical History: Reports: Hx Anxiety, Hx Bipolar Disorder, Hx Depression, Hx Personality Disorder, Hx Schizoaffective Disorder, Hx Schizophrenia Past Surgical History: Reports: Hx Abdominal Surgery, Hx Appendectomy, Hx Cholecystectomy. Denies: Hx Orthopedic Surgery - fractured finger - Immunizations Immunizations up to date: Yes Hx Diphtheria, Pertussis, Tetanus Vaccination: Yes - 2012 Physical Exam - Vital signs Vitals: Temp Pulse Resp BP Pulse Ox 99.6 F 83 18 130/89 H 98 01/02/19 20:20 01/02/19 20:20 01/02/19 20:20 01/02/19 20:20 01/02/19 20:20 Course - Vital Signs Vital signs: Temp Pulse Resp BP Pulse Ox 99.6 F 83 18 130/89 H 98 01/02/19 20:20 01/02/19 20:20 01/02/19 20:20 01/02/19 20:20 01/02/19 20:20
--- NOTE | 2019-01-02 21:34 | RADIOLOGY REPORT (SQ) ---
EXAM DESCRIPTION: XR CHEST 2 VIEWS COMPLETED DATE/TME: 01/02/2019 20:51 CLINICAL HISTORY: 33 years, Male, cough short of breath COMPARISON: 12/23/2018. 12/26/2018. FINDINGS: Cardiomediastinal silhouette is not enlarged. Mild to moderate hyperinflation. No acute lung pleural or bone abnormalities. IMPRESSION: Hyperinflation. No acute findings.
--- NOTE | 2019-01-03 02:36 | ER Document Report ---
HPI - HPI Time Seen by Provider: 01/02/19 20:50 Pain Level: 3 Context: Patient is a 33-year-old male with a history of asthma and schizophrenia that comes to the emergency department for chief complaint of breathing difficulty. He states that he was cleaning on his back and he kicked up some dust and he felt stuffy. He states this has resolved now. He had an x-ray in triage earlier. He denies fever/chills. He was seen here multiple times within the past few days. - REPRODUCTIVE Reproductive: DENIES: : - DERM Skin Color: Normal, [place] Past Medical History - General Information source: Patient - Social History Smoking Status: Never Smoker Chew tobacco use (# tins/day): No Frequency of alcohol use: None Drug Abuse: None Lives with: Alone Family History: Reviewed & Not Pertinent, Other - Unknown Patient has suicidal ideation: No Patient has homicidal ideation: No Pulmonary Medical History: Reports: Hx Asthma Renal/ Medical History: Denies: Hx Peritoneal Dialysis GI Medical History: Reports: Hx Irritable Bowel - constipation Musculoskeletal Medical History: Reports Hx Arthritis, Reports Hx Musculoskeletal Trauma Psychiatric Medical History: Reports: Hx Anxiety, Hx Bipolar Disorder, Hx Depression, Hx Personality Disorder, Hx Schizoaffective Disorder, Hx Schizophrenia Past Surgical History: Reports: Hx Abdominal Surgery, Hx Appendectomy, Hx Cholecystectomy. Denies: Hx Orthopedic Surgery - fractured finger - Immunizations Immunizations up to date: Yes Hx Diphtheria, Pertussis, Tetanus Vaccination: Yes - 2012 Hx Pneumococcal Vaccination: 08/23/00 Vertical Provider Document - CONSTITUTIONAL General Appearance: WD/WN - Somewhat unkempt, No Apparent Distress - Sleeping and easily aroused - INFECTION CONTROL TRAVEL OUTSIDE OF THE [place] IN LAST 30 DAYS: No - HEENT HEENT: Atraumatic, Normocephalic - NECK Neck: Normal Inspection - RESPIRATORY Respiratory: Breath Sounds Normal, No Respiratory Distress - CARDIOVASCULAR Cardiovascular: Regular Rate, Regular Rhythm - GI/ABDOMEN Gastrointestinal: Abdomen Soft, Abdomen Non-Tender - BACK Back: Normal Inspection - MUSCULOSKELETAL/EXTREMETIES Musculoskeletal/Extremeties: MAEW, FROM, Non-Tender - NEURO Level of Consciousness: Awake, Alert, Appropriate - DERM Integumentary: Warm, Dry, No Rash Course - Re-evaluation Re-evalutation: Patient with no current complaints on my exam. Pulse oxygenation rechecked during exam and is 99% on room air. Clear lungs on auscultation. Unremarkable x-ray. I have attempted to have patient speak with case management multiple times, he does have a phone, however he states after talking to them he declined their assistance at this time, states he has a plan, he does not have any requests or desires at this time. He does not appear to be in any distress. Patient will be discharged with return precautions. - Vital Signs Vital signs: Temp Pulse Resp BP Pulse Ox 99.6 F 83 18 130/89 H 98 01/02/19 20:20 01/02/19 20:20 01/02/19 20:20 01/02/19 20:20 01/02/19 20:20 Discharge - Discharge Clinical Impression: Dust exposure Condition: Stable Disposition: HOME, SELF-CARE Additional Instructions: Your x-ray evaluation did not show any concerning findings at this time. Continue your current medications. Return if you worsen including difficulty breathing, fever, or any other concerning symptoms.
[2019-01-03] MEDS ORDERED: IPRATROPIUM/ALBUTEROL 0.5-2.5 MG/3 ML AMPUL NEB ONE (03:31)
== END 2019-01-03 02:58 | disposition home or self-care (01) ==
LOC: ER 20:13
DX: T75.89XA Other specified effects of external causes, initial encounter (principal); J45.909 Unspecified asthma, uncomplicated; R06.00 Dyspnea, unspecified; X58.XXXA Exposure to other specified factors, initial encounter
CPT/HCPCS: 94640; 99285; 71046; J7620

== ENCOUNTER 2019-01-05 02:55 | Emergency (ER) | payer MEDICAID ==
[2019-01-05] MEDS ORDERED: IPRATROPIUM/ALBUTEROL 0.5-2.5 MG/3 ML AMPUL NEB ONE (06:12)
--- NOTE | 2019-01-05 06:13 | ER Document Report ---
HPI - HPI Patient complains to provider of: cough Time Seen by Provider: 01/05/19 05:30 Pain Level: 1 Context: 33-year-old known asthmatic and schizophrenic who is homeless presents to the emergency department for concerns for cough. Patient is in this emergency department very frequently and was recently seen here for similar complaints. He says that he feels like his throat is tight and he is coughing up phlegm. He denies any airway constriction, allergic reaction, acute respiratory distress, chest pain, nausea, vomiting, diarrhea. He states he just wanted to get checked. No other complaints - REPRODUCTIVE Reproductive: DENIES: : Past Medical History - Social History Smoking Status: Current Every Day Smoker Family History: Reviewed & Not Pertinent, Other - Unknown Pulmonary Medical History: Reports: Hx Asthma Renal/ Medical History: Denies: Hx Peritoneal Dialysis GI Medical History: Reports: Hx Irritable Bowel - constipation Musculoskeletal Medical History: Reports Hx Arthritis, Reports Hx Musculoskeletal Trauma Psychiatric Medical History: Reports: Hx Anxiety, Hx Bipolar Disorder, Hx Depression, Hx Personality Disorder, Hx Schizoaffective Disorder, Hx Sc hizophrenia Past Surgical History: Reports: Hx Abdominal Surgery, Hx Appendectomy, Hx Cholecystectomy. Denies: Hx Orthopedic Surgery - fractured finger - Immunizations Immunizations up to date: Yes Hx Diphtheria, Pertussis, Tetanus Vaccination: Yes - 2012 Hx Pneumococcal Vaccination: 08/23/00 Vertical Provider Document - CONSTITUTIONAL Notes: PHYSICAL EXAMINATION: Reviewed vital signs and charting by RN GENERAL: Well-appearing, well-nourished and in no acute distress. HEAD: Atraumatic, normocephalic. LUNGS: Breath sounds present, equal, with expiratory wheezes in all garcia HEART: Regular rate and rhythm without murmurs, rubs, or gallops. 2+ peripheral pulses. Normal capillary refill. EXTREMITIES: Normal range of motion, no pitting or edema. No cyanosis. NEUROLOGICAL: No focal neurological deficits. Moves all extremities spontaneously and on command. PSYCH: Normal mood. No suicidal thoughts/ideations. No homocidal thoughts/ideations. No hallucinations. SKIN: Warm, dry, normal turgor, no rashes or lesions noted. - INFECTION CONTROL TRAVEL OUTSIDE OF THE [place] IN LAST 30 DAYS: No Course - Re-evaluation Re-evalutation: 01/05/19 06:15 Well-appearing, afebrile, wheezes heard in all garcia. Patient is not tachypneic I do not have any concern for pneumonia at this time. I will give him 2 breathing treatments and give him a spacer for his inhaler. He is stable for discharge - Vital Signs Vital signs: Temp Pulse Resp BP Pulse Ox 97.8 F 98 18 130/70 H 99 01/05/19 02:59 01/05/19 02:59 01/05/19 02:59 01/05/19 02:59 01/05/19 02:59 Discharge - Discharge Clinical Impression: Asthma Condition: Good Disposition: HOME, SELF-CARE Instructions: Asthma ([facility]) Additional Instructions: You were seen for an asthma exacerbation. Your symptoms improved with treatment here in the emergency department. However, it is very important that you return to the emergency department immediately if you began to have worsening difficulty breathing that does not respond to your normal home nebulizers. You should also return to emergency department if you develop fever greater than 101, persistent cough, persistent vomiting, pass out, or any other symptoms that are concerning to you. Referrals: GIANCARLO CHANCE MD [Primary Care Provider] - Follow up as needed
[2019-01-05 06:30] VITALS: BP 100/59
== END 2019-01-05 06:53 | disposition home or self-care (01) ==
LOC: ER 02:55
DX: J45.909 Unspecified asthma, uncomplicated (principal); R05 Cough; F17.200 Nicotine dependence, unspecified, uncomplicated
CPT/HCPCS: 94640; 99283; J7620

== ENCOUNTER 2019-01-05 19:16 | Emergency (ER) | payer MEDICAID ==
--- NOTE | 2019-01-05 21:38 | RADIOLOGY REPORT (SQ) ---
XR CHEST 2 VIEWS HISTORY: Cough. COMPARISON: 01/02/2019 FINDINGS: The heart size is within normal limits. No consolidation, pleural effusion, or pneumothorax is seen. There are no acute bony findings. IMPRESSION: No evidence of acute cardiopulmonary disease.
[2019-01-05] MEDS ORDERED: ACETAMINOPHEN 325 MG TABLET PO ONE (21:46)
[2019-01-05] MEDS ORDERED: GUAIFENESIN 600 MG TABLET.SA PO ONE (21:46)
--- NOTE | 2019-01-05 21:53 | ER Document Report ---
HPI - HPI Patient complains to provider of: cough Time Seen by Provider: 01/05/19 21:46 Pain Level: 0 Context: 33-year-old schizophrenic and asthmatic presents emergency department for cough. He has been in the ER multiple times this month for the same complaint. Patient states that he had a coughing fit but is not having any difficulty breathing, said he felt warm but denies fevers denies chills, denies sore throat or earache, denies runny nose or cough. Denies chest tightness or wheezing. Denies abdominal pain, nausea or vomiting, back pain, neck pain. No other complaints. - REPRODUCTIVE Reproductive: DENIES: : Past Medical History - Social History Smoking Status: Current Every Day Smoker Family History: Reviewed & Not Pertinent, Other - Unknown Pulmonary Medical History: Reports: Hx Asthma Renal/ Medical History: Denies: Hx Peritoneal Dialysis GI Medical History: Reports: Hx Irritable Bowel - constipation Musculoskeletal Medical History: Reports Hx Arthritis, Reports Hx Musculoskel etal Trauma Psychiatric Medical History: Reports: Hx Anxiety, Hx Bipolar Disorder, Hx Depression, Hx Personality Disorder, Hx Schizoaffective Disorder, Hx Schizophrenia Past Surgical History: Reports: Hx Abdominal Surgery, Hx Appendectomy, Hx Cholecystectomy. Denies: Hx Orthopedic Surgery - fractured finger - Immunizations Immunizations up to date: Yes Hx Diphtheria, Pertussis, Tetanus Vaccination: Yes - 2012 Hx Pneumococcal Vaccination: 08/23/00 Vertical Provider Document - CONSTITUTIONAL Notes: PHYSICAL EXAMINATION: Reviewed vital signs and charting by RN GENERAL: Well-appearing, well-nourished and in no acute distress. HEAD: Atraumatic, normocephalic. EYES: Pupils are 3 mm and equal/round, extraocular movements intact, sclera anicteric, conjunctiva are normal. ENT: Nares patent bilaterally, oropharynx clear without exudates or palatal petechia. Moist mucous membranes. No tonsil hypertrophy. NECK: Normal range of motion, supple without lymphadenopathy. LUNGS: Breath sounds present, equal, and clear to auscultation bilaterally. No wheezes, rales, or rhonchi. HEART: Regular rate and rhythm without murmurs, rubs, or gallops. 2+ peripheral pulses. Normal capillary refill. BACK: Normal contour, no midline tenderness. Rectal exam deferred. EXTREMITIES: Normal range of motion, no pitting or edema. No cyanosis. NEUROLOGICAL: No focal neurological deficits. Moves all extremities spontaneously and on command. PSYCH: Normal mood, normal affect. No suicidal thoughts/ideations. No homocidal thoughts/ideations. No hallucinations. SKIN: Warm, dry, normal turgor, no rashes or lesions noted. - INFECTION CONTROL TRAVEL OUTSIDE OF THE [place] IN LAST 30 DAYS: No Course - Re-evaluation Re-evalutation: 01/05/19 21:48 Overall well-appearing. I did not hear any wheezes or any adventitious breath sounds. Patient chief complaint is a cough and I will give him Tylenol and Mucinex. Chest x-ray was obtained and read as normal. At this time there is no concerns patient will need be admitted to the hospital, vital signs are within normal limits, and he is overall well-appearing. At this time he is stable for discharge. 01/05/19 21:49 - Vital Signs Vital signs: Temp Pulse Resp BP Pulse Ox 98.9 F 83 16 124/75 96 01/05/19 20:10 01/05/19 20:10 01/05/19 20:10 01/05/19 20:10 01/05/19 20:10 Discharge - Discharge Clinical Impression: Cough Condition: Good Disposition: HOME, SELF-CARE Additional Instructions: You are seen in the emergency department this evening for a cough. Your lungs were clear today which means you are doing a great job using your inhaler and spacer. I gave you some Tylenol to help with your headache and some Mucinex that will help with your cough. I will also give you a prescription for Mucinex and you can attempt to get it filled. These take the medication as prescribed on the box. If you develop high fevers, lethargy, intractable headache, blindness, intractable vomiting, severe chest pain or acute shortness of breath, bloody diarrhea or bloody vomit, or you pass out please immediately return to the emergency department. Referrals: GIANCARLO CHANCE MD [Primary Care Provider] - Follow up as needed
[2019-01-05 21:59] VITALS: BP 139/77
== END 2019-01-05 21:58 | disposition home or self-care (01) ==
LOC: ER 19:16
DX: R05 Cough (principal); J45.909 Unspecified asthma, uncomplicated; F17.200 Nicotine dependence, unspecified, uncomplicated
CPT/HCPCS: 99283; 71046; J3490

== ENCOUNTER 2019-01-09 04:39 | Emergency (ER) | payer MEDICAID ==
--- NOTE | 2019-01-09 08:22 | ER Document Report ---
HPI - HPI Patient complains to provider of: bug bite/asthma Time Seen by Provider: 01/09/19 07:31 Pain Level: 2 Context: 33-year-old homeless male with asthma and schizophrenia resents to the emergency department with concern for a bug bite and drink requesting an inhaler. He said the bug bite developed over the last day or 2 and is a raised papular lesion without any redness around it. He denies any itching. He is also requesting an inhaler because he lost his. He denies any fevers or chills, nausea or vomiting, shortness of breath or chest pain, abdominal pain. No other complaints - REPRODUCTIVE Reproductive: DENIES: : Past Medical History - Social History Smoking Status: Current Every Day Smoker Family History: Reviewed & Not Pertinent, Other - Unknown Pulmonary Medical History: Reports: Hx Asthma Renal/ Medical History: Denies: Hx Peritoneal Dialysis GI Medical History: Reports: Hx Irritable Bowel - constipation Musculoskeletal Medical History: Reports Hx Arthritis, Reports Hx Mus culoskeletal Trauma Psychiatric Medical History: Reports: Hx Anxiety, Hx Bipolar Disorder, Hx Depression, Hx Personality Disorder, Hx Schizoaffective Disorder, Hx Schizophrenia Past Surgical History: Reports: Hx Abdominal Surgery, Hx Appendectomy, Hx Cholecystectomy. Denies: Hx Orthopedic Surgery - fractured finger - Immunizations Immunizations up to date: Yes Hx Diphtheria, Pertussis, Tetanus Vaccination: Yes - 2012 Hx Pneumococcal Vaccination: 08/23/00 Vertical Provider Document - CONSTITUTIONAL Notes: PHYSICAL EXAMINATION: Reviewed vital signs and charting by RN GENERAL: Well-appearing, well-nourished and in no acute distress. HEAD: Atraumatic, normocephalic. No scalp deformity, depression, or crepitance. EYES: Pupils are 3 mm and equal/round, extraocular movements intact, sclera anicteric, conjunctiva are normal. ENT: Nares patent bilaterally NECK: Normal range of motion, supple without lymphadenopathy. LUNGS: Breath sounds present, equal, and clear to auscultation bilaterally. Left-sided wheezing , rales, or rhonchi. HEART: Regular rate and rhythm without murmurs, rubs, or gallops. 2+ peripheral pulses. Normal capillary refill. EXTREMITIES: Normal range of motion, no pitting or edema. No cyanosis. NEUROLOGICAL: No focal neurological deficits. Moves all extremities spontaneously and on command. PSYCH: Normal mood, normal affect. No suicidal thoughts/ideations. No homocidal thoughts/ideations. No hallucinations. SKIN: Warm, dry, normal turgor, no rashes or lesions noted. - INFECTION CONTROL TRAVEL OUTSIDE OF THE [place] IN LAST 30 DAYS: No Course - Re-evaluation Re-evalutation: 01/09/19 08:20 Overall well-appearing, frequent visits to this emergency room. He does have wheezing on the left side I will give him a breathing treatment. The papular lesion is consistent with potentially a bug bite there is no underlying erythema. He does not say it itches. There is nothing to do for it. Patient's vital signs are within normal limits. There is no other concerning pathology at this time. He is stable for discharge. - Vital Signs Vital signs: Temp Pulse Resp BP Pulse Ox 98.1 F 82 22 H 117/66 95 01/09/19 04:48 01/09/19 04:48 01/09/19 04:48 01/09/19 04:48 01/09/19 04:48 Discharge - Discharge Clinical Impression: Bite Asthma Qualifiers: Asthma severity: mild Asthma persistence: persistent Asthma complication type: uncomplicated Qualified Code(s): J45.30 - Mild persistent asthma, uncomplicated Condition: Good Disposition: HOME, SELF-CARE Instructions: Asthma ([facility]) Additional Instructions: You were seen for an asthma exacerbation. Your symptoms improved with treatment here in the emergency department. However, it is very important that you return to the emergency department immediately if you began to have worsening difficulty breathing that does not respond to your normal home nebulizers. You should also return to emergency department if you develop fever greater than 101, persistent cough, persistent vomiting, pass out, or any other symptoms that are concerning to you. Referrals: GIANCARLO CHANCE MD [Primary Care Provider] - Follow up as needed
[2019-01-09] MEDS ORDERED: ALBUTEROL SULFATE HFA (90 MCG/PUFF) 8 GM MDI (1 MDI/ER DISP) IH ONE (08:26)
[2019-01-09] MEDS ORDERED: IPRATROPIUM/ALBUTEROL 0.5-2.5 MG/3 ML AMPUL NEB ONE (08:26)
[2019-01-09 09:16] VITALS: BP 111/72
== END 2019-01-09 09:05 | disposition home or self-care (01) ==
LOC: ER 04:39
DX: T14.8XXA Other injury of unspecified body region, initial encounter (principal); W57.XXXA Bitten or stung by nonvenomous insect and other nonvenomous arthropods, initial encounter; J45.30 Mild persistent asthma, uncomplicated; Z59.0 Homelessness; F17.200 Nicotine dependence, unspecified, uncomplicated
CPT/HCPCS: 94640; 99284; J3490; J7620

== ENCOUNTER 2019-01-11 06:09 | Emergency (ER) | payer MEDICAID ==
[2019-01-11 06:19] VITALS: BP 131/71
--- NOTE | 2019-01-11 07:20 | ER Document Report ---
HPI - HPI Time Seen by Provider: 01/11/19 07:14 Pain Level: 2 Context: Patient is a 33-year-old male with a history of the emergency department for chief complaint of wanting to get his oxygen level checked and is placing his spacer for his albuterol inhaler. He states he is hoping to get another spacer. He states he was around some secondhand smoke at a coffee shop earlier, his "throat felt scratchy" and he just wanted to be checked out. He states generally speaking his breathing has been improved from prior when he was having a lot of wheezing. He denies fever/chills. He denies any current symptoms or any current complaints. - REPRODUCTIVE Reproductive: DENIES: : Past Medical History - General Information source: Patient - Social History Smoking Status: Never Smoker Drug Abuse: None Lives with: Alone Family History: Reviewed & Not Pertinent, Other - Unknown Pulmonary Medical History: Reports: Hx Asthma Renal/ Medical History: Denies: Hx Peritoneal Dialysis GI Medical History: Reports: Hx Irritable Bowel - constipation Musculoskeletal Medical History: Reports Hx Arthritis, Reports Hx Musculoskeletal Trauma Psychiatric Medical History: Reports: Hx Anxiety, Hx Bipolar Disorder, Hx Depression, Hx Personality Disorder, Hx Schizoaffective Disorder, Hx Schizophrenia Past Surgical History: Reports: Hx Abdominal Surgery, Hx Appendectomy, Hx Cholecystectomy. Denies: Hx Orthopedic Surgery - fractured finger - Immunizations Immunizations up to date: Yes Hx Diphtheria, Pertussis, Tetanus Vaccination: Yes - 2012 Hx Pneumococcal Vaccination: 08/23/00 Vertical Provider Document - CONSTITUTIONAL General Appearance: WD/WN, No Apparent Distress - INFECTION CONTROL TRAVEL OUTSIDE OF THE [place] IN LAST 30 DAYS: No - HEENT HEENT: Atraumatic, Normal ENT Exam, Normocephalic - NECK Neck: Normal Inspection - RESPIRATORY Respiratory: Breath Sounds Normal, No Respiratory Distress. negative: Wheezing - CARDIOVASCULAR Cardiovascular: Regular Rate, Regular Rhythm - GI/ABDOMEN Gastrointestinal: Abdomen Soft, Abdomen Non-Tender - BACK Back: Normal Inspection - MUSCULOSKELETAL/EXTREMETIES Musculoskeletal/Extremeties: MAEW, FROM, Non-Tender - NEURO Level of Consciousness: Awake, Alert, Appropriate Motor/Sensory: No Motor Deficit, No Sensory Deficit - DERM Integumentary: Warm, Dry, No Rash Course - Re-evaluation Re-evalutation: Patient smiling, well-appearing. Clear lungs. No current complaints. Unremarkable vital signs. He is requesting another spacer for his inhaler, he is provided with this. No additional requests or complaints at this time. Patient stable at time of discharge. - Vital Signs Vital signs: Temp Pulse Resp BP Pulse Ox 98.3 F 94 20 131/71 H 96 01/11/19 06:18 01/11/19 06:18 01/11/19 06:18 01/11/19 06:18 01/11/19 06:18 Discharge - Discharge Clinical Impression: Asthma Qualifiers: Asthma severity: mild Asthma persistence: intermittent Asthma complication type: uncomplicated Qualified Code(s): J45.20 - Mild intermittent asthma, uncomplicated Condition: Stable Disposition: HOME, SELF-CARE Additional Instructions: Your evaluation today does not show any concerning findings. Continue your current medications including albuterol as needed, use the spacer provided. Follow-up with primary care. Return for any concerning symptoms including difficulty breathing, fever, or any other concerning symptoms. Referrals: GIANCARLO CHANCE MD [Primary Care Provider] - Follow up as needed
== END 2019-01-11 07:28 | disposition home or self-care (01) ==
LOC: ER 06:09
DX: J45.20 Mild intermittent asthma, uncomplicated (principal)
CPT/HCPCS: 99281

== ENCOUNTER 2019-01-12 08:26 | Emergency (ER) | payer MEDICAID ==
--- NOTE | 2019-01-12 08:59 | ER Document Report ---
HPI - HPI Patient complains to provider of: needs steroid Time Seen by Provider: 01/12/19 08:52 Onset: This morning Onset/Duration: Sudden Quality of pain: No pain Pain Level: 2 Context: Patient presents emergency department with request for steroids. He reports he woke up this morning felt like his chest was tight he used his inhaler he feels better now but thought he might need steroids also. No other complaints such as fever vomiting diarrhea. Associated Symptoms: None Exacerbated by: Denies Relieved by: Denies Similar symptoms previously: Yes Recently seen / treated by doctor: Yes - REPRODUCTIVE Reproductive: DENIES: : Past Medical History - General Information source: Patient - Social History Smoking Status: Unknown if Ever Smoked Cigarette use (# per day): No Frequency of alcohol use: None Drug Abuse: None Family History: Reviewed & Not Pertinent, Other - Unknown Patient has suicidal ideation: No Patient has homicidal ideation: No Pulmonary Medical History: Reports: Hx Asthma Renal/ Medical History: Denies: Hx Peritoneal Dialysis GI Medical History: Reports: Hx Irritable Bowel - constipation Musculoskeletal Medical History: Reports Hx Arthritis, Reports Hx Musculoskeletal Trauma Psychiatric Medical History: Reports: Hx Anxiety, Hx Bipolar Disorder, Hx Depression, Hx Personality Disorder, Hx Schizoaffective Disorder, Hx Schizophrenia Past Surgical History: Reports: Hx Abdominal Surgery, Hx Appendectomy, Hx Cholecystectomy. Denies: Hx Orthopedic Surgery - fractured finger - Immunizations Immunizations up to date: Yes Hx Diphtheria, Pertussis, Tetanus Vaccination: Yes - 2012 Hx Pneumococcal Vaccination: 08/23/00 Vertical Provider Document - CONSTITUTIONAL Agree With Documented VS: Yes Exam Limitations: No Limitations General Appearance: WD/WN, No Apparent Distress - INFECTION CONTROL TRAVEL OUTSIDE OF THE [place] IN LAST 30 DAYS: No - HEENT HEENT: Atraumatic, Normocephalic - NECK Neck: Normal Inspection, Supple. negative: Lymphadenopathy-Left, Lymphadenopathy-Right - RESPIRATORY Respiratory: Breath Sounds Normal, No Respiratory Distress. negative: Rhonchi, Wheezing - CARDIOVASCULAR Cardiovascular: Regular Rate - GI/ABDOMEN Gastrointestinal: Abdomen Soft, Abdomen Non-Tender - MUSCULOSKELETAL/EXTREMETIES Musculoskeletal/Extremeties: MAEW, FROM - NEURO Level of Consciousness: Awake, Alert, Appropriate Motor/Sensory: No Motor Deficit - DERM Integumentary: Warm, Dry Course - Re-evaluation Re-evalutation: 01/12/19 Patient respiratory rate even unlabored no distress. He does not need steroids at this time no wheezing. He was instructed to continue using his inhaler as prescribed he verbalized understanding discharged home Dictation of this chart was performed using voice recognition software; therefore, there may be some unintended grammatical errors. Discharge - Discharge Clinical Impression: lung recheck Asthma Qualifiers: Asthma severity: unspecified severity Asthma persistence: unspecified Asthma complication type: unspecified Qualified Code(s): J45.909 - Unspecified asthma, uncomplicated Condition: Stable Disposition: HOME, SELF-CARE Additional Instructions: *You have been evaluated for lung recheck *Use your inhaler as prescribed *Follow up with a primary care provider within one week *Return to ED for worsening condition, changes, needs Referrals: GIANCARLO CHANCE MD [Primary Care Provider] - Follow up in 1 week
[2019-01-12 09:08] VITALS: BP 116/62
== END 2019-01-12 09:08 | disposition home or self-care (01) ==
LOC: ER 08:26
DX: Z76.0 Encounter for issue of repeat prescription (principal); J45.909 Unspecified asthma, uncomplicated
CPT/HCPCS: 99281

== ENCOUNTER 2019-01-13 07:21 | Emergency (ER) | payer MEDICAID ==
[2019-01-13] MEDS ORDERED: ALBUTEROL SULFATE HFA (90 MCG/PUFF) 8 GM MDI (1 MDI/ER DISP) IH ONE (10:00)
[2019-01-13] MEDS ORDERED: DEXAMETHASONE 4 MG TABLET PO ONE (10:01)
--- NOTE | 2019-01-13 10:02 | ER Document Report ---
HPI - HPI Patient complains to provider of: Medication refill Time Seen by Provider: 01/13/19 09:46 Onset: This morning Onset/Duration: Gradual Pain Level: 2 Context: Patient has a history of asthma and is out of his albuterol inhaler. Patient states that he use some lotion which may have triggered his asthma. Patient states that he did wash his hands so that he is not exposed to the lotion. Patient has his inhaler here with him although it has no more actuations left. Associated Symptoms: denies: Nonproductive cough, Productive cough, Headache Exacerbated by: Denies Relieved by: Denies Similar symptoms previously: No Recently seen / treated by doctor: Yes - ROS ROS below otherwise negative: Yes Systems Reviewed and Negative: Yes All other systems reviewed and negative - CONSTITUTIONAL Constitutional: DENIES: Fever, Chills - EENT EENT: DENIES: Sore Throat, Ear Pain, Eye problems - CARDIOVASCULAR Cardiovascular: DENIES: Chest pain - RESPIRATORY Respiratory: DENIES: Trouble Breathing, Coughing - GASTROINTESTINAL Gastrointestinal: DENIES: Nausea, Patient vomiting - DERM Skin Color: Normal Skin Problems: None Past Medical History - General Information source: Patient - Social History Smoking Status: Never Smoker Chew tobacco use (# tins/day): No Frequency of alcohol use: Occasional Drug Abuse: None Family History: Reviewed & Not Pertinent, Other - Unknown Patient has suicidal ideation: No Patient has homicidal ideation: No Pulmonary Medical History: Reports: Hx Asthma Renal/ Medical History: Denies: Hx Peritoneal Dialysis GI Medical History: Reports: Hx Irritable Bowel - constipation Musculoskeletal Medical History: Reports Hx Arthritis, Reports Hx Musculoskeletal Trauma Psychiatric Medical History: Reports: Hx Anxiety, Hx Bipolar Disorder, Hx Depression, Hx Personality Disorder, Hx Schizoaffective Disorder, Hx Schizophrenia Past Surgical History: Reports: Hx Abdominal Surgery, Hx Appendectomy, Hx Cholecystectomy. Denies: Hx Orthopedic Surgery - fractured finger - Immunizations Immunizations up to date: Yes Hx Diphtheria, Pertussis, Tetanus Vaccination: Yes - 2012 Hx Pneumococcal Vaccination: 08/23/00 Vertical Provider Document - CONSTITUTIONAL Agree With Documented VS: Yes Exam Limitations: No Limitations General Appearance: WD/WN, No Apparent Distress - INFECTION CONTROL TRAVEL OUTSIDE OF THE [place] IN LAST 30 DAYS: No - HEENT HEENT: Atraumatic, Normocephalic. negative: Pharyngeal Tenderness - NECK Neck: Normal Inspection, Supple - RESPIRATORY Respiratory: No Respiratory Distress, Chest Non-Tender, Wheezing - CARDIOVASCULAR Cardiovascular: Regular Rate, Regular Rhythm, No Murmur - GI/ABDOMEN Gastrointestinal: Abdomen Soft, Abdomen Non-Tender - MUSCULOSKELETAL/EXTREMETIES Musculoskeletal/Extremeties: MAEW - NEURO Level of Consciousness: Awake, Alert, Appropriate Motor/Sensory: No Motor Deficit - DERM Integumentary: Warm, Dry Course - Re-evaluation Re-evalutation: 01/13/19 10:01 Patient with faint scattered wheezing. Patient does have his inhaler with him that has 0 actuations left. We will give patient inhaler here with 2 puffs. Freddy mayo has very minimal faint scattered wheezing. Patient encouraged to follow- up with primary doctor for further evaluation. - Vital Signs Vital signs: Temp Pulse Resp BP Pulse Ox 98.0 F 84 20 107/62 96 01/13/19 07:31 01/13/19 07:31 01/13/19 07:31 01/13/19 07:31 01/13/19 07:31 Discharge - Discharge Clinical Impression: Medication refill Asthma Qualifiers: Asthma severity: unspecified severity Asthma persistence: unspecified Asthma complication type: unspecified Qualified Code(s): J45.909 - Unspecified asthma, uncomplicated Condition: Stable Disposition: HOME, SELF-CARE Instructions: Asthma ([facility]), Inhaled Bronchodilators ([facility]), Steroid Medication Additional Instructions: Return immediately for any new or worsening symptoms Followup with your primary care provider, call tomorrow to make a followup appointment Referrals: GIANCARLO CHANCE MD [Primary Care Provider] - Follow up tomorrow
[2019-01-13 10:06] VITALS: BP 115/77
== END 2019-01-13 10:10 | disposition home or self-care (01) ==
LOC: ER 07:21
DX: J45.909 Unspecified asthma, uncomplicated (principal)
CPT/HCPCS: 99281; J3490 ×2

== ENCOUNTER 2019-01-15 03:39 | Emergency (ER) | payer MEDICAID ==
[2019-01-15] MEDS ORDERED: IPRATROPIUM/ALBUTEROL 0.5-2.5 MG/3 ML AMPUL NEB ONE (04:13)
--- NOTE | 2019-01-15 04:19 | ER Document Report ---
HPI - HPI Time Seen by Provider: 01/15/19 04:00 Pain Level: Denies Notes: Patient is a 33-year-old male with history of asthma who presents to the emergency department with chief complaint cough. Patient states that over the past 24 hours he has had an increased sputum production that is white and green in color. States that he was around his friend all day yesterday he was smoking cigarettes, and he reports that secondhand smoke is a big trigger for his asthma. Patient states he has been using his albuterol inhaler with minimal relief. Patient also was concerned that he had goose droppings on his jacket and that he may have come in contact with him on his skin. Patient is just concerned that this could potentially cause a problem. Patient denies rash or hives. Patient denies itching - REPRODUCTIVE Reproductive: DENIES: : Past Medical History - General Information source: Patient - Social History Smoking Status: Never Smoker Cigarette use (# per day): No Chew tobacco use (# tins/day): No Frequency of alcohol use: None Drug Abuse: None Lives with: Homeless Family History: Reviewed & Not Pertinent, Other - Unknown - Past Medical History Cardiac Medical History: Reports: None Pulmonary Medical History: Reports: Hx Asthma EENT Medical History: Reports: None Neurological Medical History: Reports: None Endocrine Medical History: Reports: None Renal/ Medical History: Reports: None. Denies: Hx Peritoneal Dialysis Malignancy Medical History: Reports None GI Medical History: Reports: Hx Irritable Bowel - constipation Musculoskeletal Medical History: Reports Hx Arthritis, Reports Hx Musculoskeletal Trauma Psychiatric Medical History: Reports: Hx Anxiety, Hx Bipolar Disorder, Hx Depression, Hx Personality Disorder, Hx Schizoaffective Disorder, Hx Schizophrenia Past Surgical History: Reports: Hx Abdominal Surgery, Hx Appendectomy, Hx Cholecystectomy. Denies: Hx Orthopedic Surgery - fractured finger - Immunizations Immunizations up to date: Yes Hx Diphtheria, Pertussis, Tetanus Vaccination: Yes - 2012 Hx Pneumococcal Vaccination: 08/23/00 Vertical Provider Document - CONSTITUTIONAL Agree With Documented VS: Yes Exam Limitations: No Limitations General Appearance: Mild Distress - INFECTION CONTROL TRAVEL OUTSIDE OF THE [place] IN LAST 30 DAYS: No - HEENT HEENT: Atraumatic, Normal ENT Exam, Normocephalic, PERRLA - NECK Neck: Normal Inspection - RESPIRATORY Notes: Right upper and lower lobe expiratory wheeze. Lungs sounds on left side clear to auscultation. + dry cough noted during assessment. - CARDIOVASCULAR Cardiovascular: Regular Rate, Regular Rhythm - GI/ABDOMEN Gastrointestinal: Abdomen Soft, Abdomen Non-Tender - NEURO Level of Consciousness: Awake, Alert, Appropriate - DERM Integumentary: Warm, Dry, No Rash Course - Re-evaluation Re-evalutation: 01/15/19 04:27 Initial assessment patient did have expiratory wheezing in the right upper middle and lower lobes. Will administer breathing treatment and reassess. Patient was 92% on room air. Patient requesting to be placed on nasal cannula. Place patient on 2 L nasal cannula at which he is 99%. Patient is sitting upright on stretcher after receiving DuoNeb and reports feeling relief. Placed patient on room air in which he is 98%. Patient doing much better, will discharge with albuterol inhaler to go home with. - Vital Signs Vital signs: Temp Pulse Resp BP Pulse Ox 98.2 F 73 22 H 119/74 91 L 01/15/19 03:43 01/15/19 03:43 01/15/19 03:43 01/15/19 03:43 01/15/19 03:43 Discharge - Discharge Clinical Impression: Asthma Qualifiers: Asthma severity: mild Asthma persistence: intermittent Asthma complication type: unspecified Qualified Code(s): J45.20 - Mild intermittent asthma, uncomplicated Condition: Stable Disposition: HOME, SELF-CARE Additional Instructions: You were seen in the emergency department today for asthma and wheezing. Your oxygen and minimal wheeze has improved after receiving a nebulizer treatment. You are being prescribed an inhaler to take home. Please return to the ER if you have shortness of breath, chest pain, fever, chills, or worsening signs or symptoms. Asthma You have been diagnosed as having asthma. This is a condition where there is episodic tightness in the bronchial tubes. Allergies, infections, and polluted or cold air may be contributing factors. Emergency treatment of a severe asthma attack may include adrenaline shots, or bronchodilator aerosol. You may feel lightheaded, have a decreased exercise tolerance and a rapid pulse for an hour or two. Rest and get plenty of fluids. Home treatment of asthma requires bronchodilator drugs. These can be administered by injection, inhalation, or by mouth. Antibiotics and corticosteroids may be required for some patients. You should avoid chemical fu mes, dusts, pollens, and exercising in very cold or dry air. If you smoke, stop!! If you develop a fever, increased wheezing, chest pain, or severe shortness of breath, you should contact the doctor immediately Referrals: GIANCARLO CHANCE MD [Primary Care Provider] - Follow up as needed
[2019-01-15] MEDS ORDERED: ALBUTEROL SULFATE HFA (90 MCG/PUFF) 8 GM MDI (1 MDI/ER DISP) IH SCH (06:00)
[2019-01-15 06:06] VITALS: BP 121/75
== END 2019-01-15 06:06 | disposition home or self-care (01) ==
LOC: ER 03:39
DX: J45.20 Mild intermittent asthma, uncomplicated (principal); Z90.49 Acquired absence of other specified parts of digestive tract
CPT/HCPCS: 94640; 99283; J3490; J7620

== ENCOUNTER 2019-01-16 21:49 | Emergency (ER) | payer MEDICAID ==
--- NOTE | 2019-01-16 23:13 | RADIOLOGY REPORT (SQ) ---
EXAM DESCRIPTION: XR CHEST 2 VIEWS COMPLETED DATE/TME: 01/16/2019 22:31 CLINICAL HISTORY: 33 years, Male, COUGH COMPARISON: 01/05/2019 chest NUMBER OF VIEWS: 2 TECHNIQUE: 2 views of the chest LIMITATIONS: None. FINDINGS: Heart size is normal. Lungs are hyperinflated but clear. No pneumothorax IMPRESSION: Underlying hyperinflation. Lungs are clear copyright 2010 [employer]- All Rights Reserved
--- NOTE | 2019-01-16 23:54 | ER Document Report ---
ED Respiratory Problem - General Chief Complaint: Cough Stated Complaint: COUGH Time Seen by Provider: 01/16/19 22:30 Primary Care Provider: GIANCARLO CHANCE MD [Primary Care Provider] - Follow up as needed Mode of Arrival: Ambulatory Information source: Patient TRAVEL OUTSIDE OF THE [place] IN LAST 30 DAYS: No - HPI Patient complains to provider of: Cough Notes: Patient here with complaints of cough and wanted to make sure he did not have pneumonia. The patient essentially has a chronic cough and is seen here quite often for cough with asthma exacerbations. He was concerned that he may have pneumonia. He denies any fevers. He denies any difficulty breathing at this time. No nausea, vomiting, diarrhea. No chest pain or shortness of breath. No rashes. He denies any other specific complaints at this moment. - Related Data Allergies/Adverse Reactions: No Known Allergies Allergy (Verified 01/02/19 02:54) Past Medical History - Social History Smoking Status: Never Smoker Frequency of alcohol use: None Drug Abuse: None Family History: Reviewed & Not Pertinent, Other - Unknown Patient has suicidal ideation: No Patient has homicidal ideation: No Pulmonary Medical History: Reports: Hx Asthma Renal/ Medical History: Denies: Hx Peritoneal Dialysis GI Medical History: Reports: Hx Irritable Bowel - constipation Musculoskeletal Medical History: Reports Hx Arthritis, Reports Hx Musculoskeletal Trauma Psychiatric Medical History: Reports: Hx Anxiety, Hx Bipolar Disorder, Hx Depression, Hx Personality Disorder, Hx Schizoaffective Disorder, Hx Schizophrenia Past Surgical History: Reports: Hx Abdominal Surgery, Hx Appendectomy, Hx Cholecystectomy. Denies: Hx Orthopedic Surgery - fractured finger - Immunizations Immunizations up to date: Yes Hx Diphtheria, Pertussis, Tetanus Vaccination: Yes - 2012 Hx Pneumococcal Vaccination: 08/23/00 Review of Systems - Review of Systems -: Yes All other systems reviewed and negative Physical Exam - Vital signs Vitals: Temp Pulse Resp BP Pulse Ox 98.8 F 80 18 125/59 L 96 01/16/19 22:06 01/16/19 22:06 01/16/19 22:06 01/16/19 22:06 01/16/19 22:06 - Notes Notes: GENERAL: alert, cooperative, nontoxic, no distress. HEAD: normocephalic, atraumatic EYES: conjunctiva pink without discharge, no external redness or swelling. EARS: no external swelling, no external redness, no mastoid redness, swelling, tenderness. Ear canals are clear without swelling or drainage. TMs pearly salmon, no redness, no bulging, normal landmarks, no perforation. NOSE: atraumatic, no external swelling. clear rhinorrhea noted. MOUTH/THROAT: mucous membranes moist and pink, posterior pharynx without erythema, swelling, exudate. No trismus or drooling. NECK: soft, supple, full range of motion, no meningismus. CHEST: no distress, lungs clear and equal throughout. No wheezing, rales, rh onchi. CARDIAC: regular rate and rhythm, no murmur, normal capillary refill, normal pulses. No peripheral edema noted. BACK: full range of motion, no CVA tenderness. EXTREMITIES: full range of motion of all extremities. No redness, no swelling. NEURO: alert and oriented A&O3, no focal deficits, full range of motion of all extremities. PYSCH: appropriate mood, affect. Patient is cooperative. SKIN: pink, warm, dry, no rash. Course - Re-evaluation Re-evalutation: 01/16/19 23:52 Patient nontoxic-appearing with stable vitals. Patient here with complaints of cough and will need to make sure he does not have pneumonia. On exam he looks well, is having no respiratory distress his lungs are actually clear at this time. He is not hypoxic or tachypneic. Afebrile. Chest x-ray shows no acute abnormalities. Patient most likely just having mild cough from his chronic asthma. Patient at this point can be discharged home with instructions to follow-up as needed for any worsening symptoms or any further concerns. The patient's emergency department workup and current diagnosis were explained to the patient and or family. Follow-up instructions were provided. Medications if prescribed were discussed. Instructions for when to return to the emergency department including specific worrisome symptoms were discussed with the patient and/or family. - Vital Signs Vital signs: Temp Pulse Resp BP Pulse Ox 98.8 F 80 18 125/59 L 96 01/16/19 22:06 01/16/19 22:06 01/16/19 22:06 01/16/19 22:06 01/16/19 22:06 - Diagnostic Test Radiology reviewed: Image reviewed, Reports reviewed - Negative chest x-ray Discharge - Discharge Clinical Impression: Chronic cough Condition: Stable Disposition: HOME, SELF-CARE Instructions: Upper Respiratory Illness ([facility]) Additional Instructions: Follow-up as needed for any worsening symptoms, high fever, significant trouble breathing, persistent vomiting, or for any further concerns. Forms: Elevated Blood Pressure, Smoking Cessation Education Referrals: GIANCARLO CHANCE MD [Primary Care Provider] - Follow up as needed
[2019-01-17 00:07] VITALS: BP 110/67
== END 2019-01-17 00:11 | disposition home or self-care (01) ==
LOC: ER 21:49
DX: R05 Cough (principal); J45.909 Unspecified asthma, uncomplicated
CPT/HCPCS: 71046; 99283

== ENCOUNTER 2019-01-18 02:10 | Emergency (ER) | payer MEDICAID ==
[2019-01-18] MEDS ORDERED: IPRATROPIUM/ALBUTEROL 0.5-2.5 MG/3 ML AMPUL NEB ONE (02:30)
[2019-01-18] MEDS ORDERED: MAGNESIUM SULFATE/D5W 0 GM/0 ML RTUPB IV ONE (02:30)
[2019-01-18] MEDS ORDERED: METHYLPREDNISOLONE INJ 125 MG/2 ML SDV ONE (02:31)
[2019-01-18] MEDS ORDERED: ALBUTEROL SULFATE 0.083% NEB 2.5 MG/3 ML AMPUL NEB ONE (02:59)
--- NOTE | 2019-01-18 03:02 | ER Document Report ---
ED General - General Chief Complaint: Cough Stated Complaint: COUGH Time Seen by Provider: 01/18/19 02:53 Primary Care Provider: GIANCARLO CHANCE MD [Primary Care Provider] - Follow up in 3-5 days TRAVEL OUTSIDE OF THE [place] IN LAST 30 DAYS: No - HPI Notes: Patient is a 33-year-old male that presents to the emergency department for chief complaint of cough and wheezing. Patient has asthma and chronic cough. He states that he has had increased shortness of breath this evening. Patient does describe a tightness with coughing. He states he is used his albuterol inhaler about 7 times today. He states the inhaler gives him relief temporarily. He denies any chest pain, fever, lightheadedness, increased sputum production, nausea/vomiting and abdominal pain. He denies being on any oxygen at home. Past Medical History: Asthma Past Surgical History: Reviewed in chart Social History: Reviewed in chart Family History: Reviewed and noncontributory for presenting illness Allergies: Reviewed, see documented allergy list. REVIEW OF SYSTEMS: CONSTITUTIONAL : No fever No chills No diaphoresis No recent illness EENT: No vision changes No congestion No sore throat CARDIOVASCULAR: No chest pain No palpitations RESPIRATORY: shortness of breath cough difficulty breathing GASTROINTESTINAL: No abdominal pain No nausea No vomiting No diarrhea GENITOURINARY: No dysuria No hematuria No difficulty urinating MUSCULOSKELETAL: No back pain No leg pain No arm pain SKIN: No rashes No lesions LYMPHATIC: No swollen, enlarged glands. NEUROLOGICAL: No lightheadedness No headache No weakness No paresthesias PSYCHIATRIC: No anxiety No depression PHYSICAL EXAMINATION: Vital signs reviewed, nursing noted reviewed. GENERAL: Disheveled, well-nourished and in no acute distress. HEAD: Atraumatic, normocephalic. EYES: Eyes appear normal, extraocular movements intact, sclera anicteric, conjunctiva are normal. ENT: nares patent, oropharynx clear without exudates. Moist mucous membranes. NECK: Normal range of motion, supple without lymphadenopathy LUNGS: Tachypneic, no retractions or accessory muscle use, bilateral expiratory wheezing and diminished lung sounds. HEART: Regular rate and rhythm without murmurs ABDOMEN: Soft, nontender, normoactive bowel sounds. No rebound, guarding, or rigidity. No masses appreciated. EXTREMITIES: Nontender, good range of motion, no pitting or edema. NEUROLOGICAL: No focal neurological deficits. Moves all extremities spontaneously Motor and sensory grossly intact on exam. PSYCH: Normal mood, normal affect. SKIN: Warm, Dry, normal turgor, no rashes or lesions noted on exposed skin - Related Data Allergies/Adverse Reactions: No Known Allergies Allergy (Verified 01/02/19 02:54) Past Medical History - Social History Smoking Status: Unknown if Ever Smoked Family History: Reviewed & Not Pertinent, Other - Unknown Pulmonary Medical History: Reports: Hx Asthma Renal/ Medical History: Denies: Hx Peritoneal Dialysis GI Medical History: Reports: Hx Irritable Bowel - constipation Musculoskeletal Medical History: Reports Hx Arthritis, Reports Hx Musculoskeletal Trauma Psychiatric Medical History: Reports: Hx Anxiety, Hx Bipolar Disorder, Hx Depression, Hx Personality Disorder, Hx Schizoaffective Disorder, Hx Schizophrenia Past Surgical History: Reports: Hx Abdominal Surgery, Hx Appendectomy, Hx Cholecystectomy. Denies: Hx Orthopedic Surgery - fractured finger - Immunizations Immunizations up to date: Yes Hx Diphtheria, Pertussis, Tetanus Vaccination: Yes - 2012 Hx Pneumococcal Vaccination: 08/23/00 Physical Exam - Vital signs Vitals: Temp Pulse Resp BP Pulse Ox 98.6 F 92 24 H 127/59 H 89 L 01/18/19 02:24 01/18/19 02:24 01/18/19 02:24 01/18/19 02:24 01/18/19 02:24 Course - Re-evaluation Re-evalutation: 01/18/19 03:02 Vitals reviewed. Nursing notes reviewed. Patient was 89% on room air when he presented to the ED and was placed on nasal cannula oxygen. He is tachypneic with bilateral wheezing consistent with acute asthma exacerbation. Patient has been ordered aerosols, Solu-Medrol and magnesium for symptom medic management. 01/18/19 05:03 Patient's blood work is unremarkable. X-ray shows no acute cardiopulmonary process. Patient had significant improvement of his oxygen saturation after nebulized treatments. He is now 98% on room air. Plan to ambulate patient and if he maintains his oxygen saturation above 94% he will be discharged home on prednisone. He will continue using the albuterol inhaler 2 puffs every 4 hours. Chest X-Ray 01/18/19 02:55 IMPRESSION: 1. No acute pulmonary process identified. 01/18/19 05:07 Patient ambulated without difficulty. His oxygen stayed at 96%. He has not dyspneic. Patient's lung sounds are significantly improved and he is well- appearing now. He is in agreement with discharge and return precautions. - Vital Signs Vital signs: Temp Pulse Resp BP Pulse Ox 98.6 F 92 24 H 127/59 H 97 01/18/19 02:24 01/18/19 02:24 01/18/19 02:24 01/18/19 02:24 01/18/19 04:00 Discharge - Discharge Clinical Impression: Asthma exacerbation Qualifiers: Asthma severity: mild Asthma persistence: intermittent Qualified Code(s): J45.21 - Mild intermittent asthma with (acute) exacerbation Condition: Stable Disposition: HOME, SELF-CARE Instructions: [facility] ([facility] Additional Instructions: Please return to the emergency department if you have any worsening, or concern of your symptoms. Please return to the emergency department if you develop chest pain, difficulty breathing, severe abdominal pain, or ongoing vomiting. Please follow-up with your primary care physician in 2-3 days and any other recommended physicians. If prescribed, take all medications as directed. If you have any questions or concerns do not hesitate to return the emergency department for evaluation. Use your albuterol inhaler with the spacer 2 puffs every 4 hours as needed for shortness of breath. If you need to use it more frequently than every 4 hours because you are having a hard time breathing you should return to the emergency room. Prescriptions: Prednisone [Deltasone 20 mg Tablet] 2 tab PO DAILY 5 Days tablet Referrals: GIANCARLO CHANCE MD [Primary Care Provider] - Follow up in 3-5 days
--- NOTE | 2019-01-18 03:24 | RADIOLOGY REPORT (SQ) ---
EXAM DESCRIPTION: XR CHEST 1 VIEW COMPLETED DATE/TME: 01/18/2019 02:55 CLINICAL HISTORY: cough COMPARISON: 01/16/2019 FINDINGS: Single frontal view of the chest. Cardiomediastinal silhouette: Normal size and contour. Lungs: No consolidation, pneumothorax, or pleural effusion. Bones: No acute osseous abnormality. Upper abdomen: No abnormality identified. IMPRESSION: 1. No acute pulmonary process identified.
[2019-01-18] MEDS ORDERED: METHYLPREDNISOLONE INJ 125 MG/2 ML SDV IV ONE (03:30)
[2019-01-18 04:04] LABS: ABSOLUTE BASOPHILS # (AUTO) 0.1 10^3/uL (0.0-0.2); ABSOLUTE EOSINOPHILS # (AUTO) 0.9 10^3/uL (0.0-0.6); ABSOLUTE MONOCYTES (AUTO) 0.4 10^3/uL (0.1-1.4); ABSOLUTE NEUT (AUTO) 1.4 10^3/uL (1.7-8.2); ANION GAP 9 (5-19); BASOPHILS % (AUTO) 2.5 % (0-2); BLOOD UREA NITROGEN 19 mg/dL (7-20); CALCIUM 9.2 mg/dL (8.4-10.2); CARBON DIOXIDE 29 mmol/L (22-30); CHLORIDE 105 mmol/L (98-107); EOSINOPHILS % (AUTO) 23.3 % (0-6); GLUCOSE 92 mg/dL (75-110); HEMATOCRIT 39.4 % (37.9-51.0); HEMOGLOBIN 13.2 g/dL (13.5-17.0); LYMPHOCYTES % (AUTO) 27.6 % (13-45); MEAN CORPUSCULAR HEMOGLOBIN 27.6 pg (27.0-33.4); MEAN CORPUSCULAR HGB CONC 33.5 g/dL (32.0-36.0); MEAN CORPUSCULAR VOLUME 82 fl (80-97); MONOCYTES % (AUTO) 9.6 % (3-13); PLATELET COUNT 222 10^3/uL (150-450); POTASSIUM 4.4 mmol/L (3.6-5.0); RED BLOOD COUNT 4.79 10^6/uL (4.35-5.55); RED CELL DISTRIBUTION WIDTH 13.6 % (11.5-14.0); SODIUM 142.5 mmol/L (137-145); TOTAL CELLS COUNTED % (AUTO) 100 %; WHITE BLOOD COUNT 3.8 10^3/uL (4.0-10.5)
[2019-01-18 05:20] VITALS: BP 130/82
== END 2019-01-18 05:20 | disposition home or self-care (01) ==
LOC: ER 02:10
DX: J45.21 Mild intermittent asthma with (acute) exacerbation (principal); R05 Cough; R06.02 Shortness of breath
CPT/HCPCS: 94640 ×2; 99283; 96374; 36415; 85025; 80048; 71045; J2930; J7620

== ENCOUNTER 2019-01-19 05:42 | Emergency (ER) | payer MEDICAID ==
[2019-01-19] MEDS ORDERED: IPRATROPIUM/ALBUTEROL 0.5-2.5 MG/3 ML AMPUL NEB ONE (06:55)
--- NOTE | 2019-01-19 07:23 | ER Document Report ---
HPI - HPI Patient complains to provider of: wheezing and bronchitis Time Seen by Provider: 01/19/19 07:13 Pain Level: 2 Context: 33-year-old male with schizophrenia and asthma presents to the emergency department with chief complaint of wheezing. He was seen in the emergency department last night for hypoxia and was discharged after a round of breathing treatments and improved. He presents today with some mild expiratory wheezing. He denies fevers or chills, denies night sweats, denies any weight loss, denies severe respiratory distress, denies chest pain, abdominal pain, nausea or vomiting. - REPRODUCTIVE Reproductive: DENIES: : Past Medical History - Social History Smoking Status: Former Smoker Family History: Reviewed & Not Pertinent, Other - Unknown Pulmonary Medical History: Reports: Hx Asthma Renal/ Medical History: Denies: Hx Peritoneal Dialysis GI Medical History: Reports: Hx Irritable Bowel - constipation Musculoskeletal Medical History: Reports Hx Arthritis, Reports Hx Musculo skeletal Trauma Psychiatric Medical History: Reports: Hx Anxiety, Hx Bipolar Disorder, Hx Depression, Hx Personality Disorder, Hx Schizoaffective Disorder, Hx Schizophrenia Past Surgical History: Reports: Hx Abdominal Surgery, Hx Appendectomy, Hx Cholecystectomy. Denies: Hx Orthopedic Surgery - fractured finger - Immunizations Immunizations up to date: Yes Hx Diphtheria, Pertussis, Tetanus Vaccination: Yes - 2012 Hx Pneumococcal Vaccination: 08/23/00 Vertical Provider Document - CONSTITUTIONAL Notes: PHYSICAL EXAMINATION: Reviewed vital signs and charting by RN GENERAL: Alert, interacts well. No acute distress. HEAD: Normocephalic, atraumatic. EYES: Pupils equal, round, and reactive to light. Extraocular movements intact. ENT: Oral mucosa moist, tongue midline. NECK: Full range of motion. Supple. Trachea midline. LUNGS: Expiratory wheezing in all garcia on right side, left side clear to auscultation, no rales or rhonchi HEART: Regular rate and rhythm. No murmur ABDOMEN: soft, non-tender. No distention. Bowel sounds present EXTREMITIES: Moves all 4 extremities spontaneously. No edema, No cyanosis. PSYCH: Normal affect, normal mood. SKIN: Warm, dry, normal turgor. No rashes or lesions noted. - INFECTION CONTROL TRAVEL OUTSIDE OF THE [place] IN LAST 30 DAYS: No Course - Re-evaluation Re-evalutation: 01/19/19 07:22 Overall well-appearing and nontoxic. Oxygen saturation 96% on room air. Patient does have some end expiratory wheeze we will initiate breathing michelle atments and reassess. Patient is homeless and presents to this emergency department nearly every day and that is a significant risk factor for tuberculosis but I cannot identify any other risk factors at this time. No recent failed treatments for pneumonia or any other red flags. 01/19/19 07:47 Patient received 1 breathing treatment and does have improved air movement, I still could hear wheezing on the right side and the left upper lobe. I will give him 1 more breathing treatment. He does subjectively feel better. 01/19/19 07:56 After second breathing treatment patient's lung sounds are clear in all garcia. No more wheezing. Patient is stable for discharge with stable and normal vital signs. - Vital Signs Vital signs: Temp Pulse Resp BP Pulse Ox 98.3 F 69 18 132/69 H 96 01/19/19 06:07 01/19/19 06:07 01/19/19 06:07 01/19/19 06:07 01/19/19 06:07 Discharge - Discharge Clinical Impression: Wheezing Asthma Qualifiers: Asthma severity: mild Asthma persistence: persistent Asthma complication type: uncomplicated Qualified Code(s): J45.30 - Mild persistent asthma, uncomplicated Condition: Good Disposition: HOME, SELF-CARE Additional Instructions: You were seen for an asthma exacerbation. Your symptoms improved with treatment here in the emergency department. However, it is very important that you return to the emergency department immediately if you began to have worsening difficulty breathing that does not respond to your normal home nebulizers. You should also return to emergency department if you develop fever greater than 101, persistent cough, persistent vomiting, pass out, or any other symptoms that are concerning to you. Referrals: GIANCARLO CHANCE MD [Primary Care Provider] - Follow up as needed
[2019-01-19] MEDS: ALBUTEROL SULFATE 0.083% NEB 2.5 MG/3 ML AMPUL NEB SCH ×2 (07:45→07:57)
[2019-01-19 08:07] VITALS: BP 125/69
--- NOTE | 2019-01-22 06:56 | ER Document Report ---
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
== END 2019-01-19 08:07 | disposition home or self-care (01) ==
LOC: ER 05:42
DX: J45.30 Mild persistent asthma, uncomplicated (principal)
CPT/HCPCS: 94640; 99283; J7620

== ENCOUNTER 2019-01-19 19:35 | Emergency (ER) | payer MEDICAID ==
[2019-01-19 19:58] VITALS: BP 141/88
[2019-01-19] MEDS ORDERED: IPRATROPIUM/ALBUTEROL 0.5-2.5 MG/3 ML AMPUL NEB ONE (20:43)
[2019-01-19] MEDS ORDERED: DEXAMETHASONE SOD PHOS INJ 10 MG/1 ML VIAL IM ONE (20:44)
[2019-01-19] MEDS ORDERED: PREDNISONE 20 MG TABLET PO ONE (20:48)
--- NOTE | 2019-01-19 20:50 | ER Document Report ---
HPI - HPI Time Seen by Provider: 01/19/19 20:45 Pain Level: 3 Notes: Patient is a 33-year-old male with a history of asthma and chronic cough who presents complaining of another exacerbation of asthma and wheezing this evening. Patient states he was out in the sun too long and started becoming wheezy again. He was seen earlier this morning/last night and had breathing treatments which helped. He is also been seen multiple times this past week for the same issue (7th time in 7 days). Patient is currently homeless. Patient does have an inhaler which she has been using on occasion. He is otherwise eating and drinking without difficulty. He is urinating normally. Denies drug allergies. Patient states that he has had flareups like this frequently in the past and this is not 1 of the worst ones. Denies any headache, fever, URI, sore throat, chest pain, palpitations, syncope, shortness of breath, dyspnea, abdominal pain, nausea/vomiting/diarrhea, urinary retention, dysuria, hematuria, or rash. - ROS Systems Reviewed and Negative: Yes All other systems reviewed and negative - REPRODUCTIVE Reproductive: DENIES: : Past Medical History - Social History Smoking Status: Never Smoker Family History: Reviewed & Not Pertinent, Other - Unknown Pulmonary Medical History: Reports: Hx Asthma Renal/ Medical History: Denies: Hx Peritoneal Dialysis GI Medical History: Reports: Hx Irritable Bowel - constipation Musculoskeletal Medical History: Reports Hx Arthritis, Reports Hx Musculoskeletal Trauma Psychiatric Medical History: Reports: Hx Anxiety, Hx Bipolar Disorder, Hx Depression, Hx Personality Disorder, Hx Schizoaffective Disorder, Hx Schizophrenia Past Surgical History: Reports: Hx Abdominal Surgery, Hx Appendectomy, Hx Cholecystectomy. Denies: Hx Orthopedic Surgery - fractured finger - Immunizations Immunizations up to date: Yes Hx Diphtheria, Pertussis, Tetanus Vaccination: Yes - 2012 Hx Pneumococcal Vaccination: 08/23/00 Vertical Provider Document - CONSTITUTIONAL Agree With Documented VS: Yes Notes: PHYSICAL EXAMINATION: GENERAL: Well-appearing, well-nourished and in no acute distress. HEAD: Atraumatic, normocephalic. EYES: Pupils equal round and reactive to light, extraocular movements intact, sclera anicteric, conjunctiva are normal. ENT: Nares patent and without discharge. oropharynx clear without exudates. No tonsilar hypertrophy or erythema. Moist mucous membranes. NECK: Normal range of motion, supple without lymphadenopathy LUNGS: scant expiratory wheezing. Able to speak in complete sentences w/o di fficulty. No retractions or labored breathing. HEART: Regular rate and rhythm without murmurs, rubs, gallops. Musculoskeletal: FROM to passive/active. Strength 5+/5. Esdras neg. No asymmetry to LE's. Extremities: No cyanosis, clubbing, or edema b/l. Peripheral pulses 2+. Capillary refill less than 3 seconds. NEUROLOGICAL: Normal speech, normal gait. PSYCH: Normal mood, normal affect. SKIN: Warm, Dry, normal turgor, no rashes or lesions noted. - INFECTION CONTROL TRAVEL OUTSIDE OF THE [place] IN LAST 30 DAYS: No COUNTRY TRAVELED TO/FROM: [facility] Course - Re-evaluation Re-evalutation: 01/19/19 Patient is an afebrile, well-hydrated, 33-year-old male who presents with mild exacerbation of asthma. Vitals are acceptable without significant tachycardia, tachypnea, or hypoxia. PE is otherwise unremarkable. No labs or imaging warranted at this time. Patient is nontoxic-appearing and is able to tolerate p.o. without difficulty. He is able to ambulate without significant dyspnea on exertion or short of breath. Patient was given a breathing treatment which significantly improved symptoms. Patient declined Decadron, requested prednisone pills to take. Prednisone 60 mg was given p.o. today. Patient has not had any chest pain. Low suspicion for any ACS, PE, pneumothorax, pericarditis, dissection, respiratory compromise, severe dehydration, sepsis, meningitis, or other systemic emergent condition at this time. Patient is aware that this condition can change from initial presentation and he needs to monitor symptoms closely and seek medical attention for any acute changes. Recommend conservative measures for symptoms. Recheck with your PCM in 3-5 days. Return to the ED with any worsening/concerning symptoms otherwise as reviewed in discharge. Patient is in agreement. As witnessed by multiple nurses as well as our charge nurse. Patient has been very argumentative and difficult and has been keeping the breathing treatment off his mouth while arguing walking around the room in no apparent distress whatsoever. He has no obvious labored breathing. Patient was refusing medications, and needed visual proof on record which I showed him that he has had prednisone before after he refused Decadron. Charge nurse is notified that if he continues to give difficulty that we will escort him out by security. I reviewed with the nurse and the patient that if he is able to walk all around the room argue constantly that he clearly is not in any respiratory distress at this time and he can be discharged after his breathing treatment is completed. Patient has finally agreed that he will take the prednisone and I did send him w ith a prescription for some at home. - Vital Signs Vital signs: Temp Pulse Resp BP Pulse Ox 98.6 F 77 20 141/88 H 96 01/19/19 19:56 01/19/19 19:56 01/19/19 19:56 01/19/19 19:56 01/19/19 19:56 Discharge - Discharge Clinical Impression: Asthma exacerbation Qualifiers: Asthma severity: mild Asthma persistence: intermittent Qualified Code(s): J45.21 - Mild intermittent asthma with (acute) exacerbation Condition: Stable Disposition: HOME, SELF-CARE Instructions: Asthma ([facility]) Additional Instructions: Maintain adequate fluid intake tylenol/ibuprofen as needed Use inhaler and take medication as directed over the counter cold medication as needed for symptoms Humidified air may help Wash your hands regularly Wear a mask when coughing F/u: with your PCM in 2-3 days for a recheck Return to the ED with any fever, altered mental status/behavior, chest pain, palpitations, syncope, headache, neck pain/stiffness, shortness of breath, chest pains, wheezing, drooling, trouble swallowing/breathing, abdominal pain, n/v/d, rash, or worsening/concerning symptoms otherwise. Prescriptions: Prednisone [Deltasone 20 mg Tablet] 3 tab PO DAILY 4 Days tablet Forms: Elevated Blood Pressure Referrals: SANDEE PINZON MD [ACTIVE STAFF] - Follow up as needed GIANCARLO CHANCE MD [Primary Care Provider] - 01/20/19
== END 2019-01-19 21:05 | disposition home or self-care (01) ==
LOC: ER 19:35
DX: J45.21 Mild intermittent asthma with (acute) exacerbation (principal); Z90.49 Acquired absence of other specified parts of digestive tract; Z59.0 Homelessness
CPT/HCPCS: 94640; 99284; J7512; J7620

== ENCOUNTER 2019-01-22 06:27 | Emergency (ER) | payer MEDICAID | END 2019-01-22 06:37 | disposition left against medical advice (07) | LOC: ER 06:27 | DX: Z53.21 Procedure and treatment not carried out due to patient leaving prior to being seen by health care provider (principal) ==

== ENCOUNTER 2019-01-25 04:58 | Emergency (ER) | payer MEDICAID ==
--- NOTE | 2019-01-25 06:19 | ER Document Report ---
HPI - HPI Time Seen by Provider: 01/25/19 05:57 Pain Level: 2 Context: Patient is a 33-year-old male that comes to the emergency department for chief complaint of wanting to have his lungs and air levels checked. He has a history of asthma, he states that yesterday he felt like he was having more trouble and needed his inhaler several times, however he does also state that at this time he feels fine. He denies fever/chills, nausea/vomiting, chest pain, or any othe r symptoms than the above reported ones. - REPRODUCTIVE Reproductive: DENIES: : Past Medical History - General Information source: Patient - Social History Smoking Status: Never Smoker Frequency of alcohol use: None Drug Abuse: None Lives with: Alone Family History: Reviewed & Not Pertinent, Other - Unknown Patient has suicidal ideation: No Patient has homicidal ideation: No Pulmonary Medical History: Reports: Hx Asthma Renal/ Medical History: Denies: Hx Peritoneal Dialysis GI Medical History: Reports: Hx Irritable Bowel - constipation Musculoskeletal Medical History: Reports Hx Arthritis, Reports Hx Musculoskeletal Trauma Psychiatric Medical History: Reports: Hx Anxiety, Hx Bipolar Disorder, Hx Depression, Hx Personality Disorder, Hx Schizoaffective Disorder, Hx Schizophrenia Past Surgical History: Reports: Hx Abdominal Surgery, Hx Appendectomy, Hx Cholecystectomy. Denies: Hx Orthopedic Surgery - fractured finger - Immunizations Immunizations up to date: Yes Hx Diphtheria, Pertussis, Tetanus Vaccination: Yes - 2012 Hx Pneumococcal Vaccination: 08/23/00 Vertical Provider Document - CONSTITUTIONAL General Appearance: WD/WN, No Apparent Distress - INFECTION CONTROL TRAVEL OUTSIDE OF THE [place] IN LAST 30 DAYS: No [facility] - HEENT HEENT: Atraumatic, Normal ENT Exam, Normocephalic - NECK Neck: Normal Inspection - RESPIRATORY Respiratory: Breath Sounds Normal, No Respiratory Distress. negative: Rales, Rhonchi, Wheezing - CARDIOVASCULAR Cardiovascular: Regular Rate, Regular Rhythm - GI/ABDOMEN Gastrointestinal: Abdomen Soft, Abdomen Non-Tender - BACK Back: Normal Inspection - MUSCULOSKELETAL/EXTREMETIES Musculoskeletal/Extremeties: MAEW, FROM, Non-Tender - NEURO Level of Consciousness: Awake, Alert, Appropriate - DERM Integumentary: Warm, Dry, No Rash Course - Re-evaluation Re-evalutation: This patient is very well-known to me. He looks very well today, he has clear lungs, no hypoxia, no distress. No cough. No concerning symptoms reported or concerning findings noted on his evaluation. Patient will be discharged with return precautions. Patient is happy with this, he states understanding and agreement. - Vital Signs Vital signs: Temp Pulse Resp BP Pulse Ox 97.9 F 80 20 147/81 H 100 01/25/19 05:03 01/25/19 05:03 01/25/19 05:03 01/25/19 05:03 01/25/19 05:03 Discharge - Discharge Clinical Impression: Asthma Qualifiers: Asthma severity: unspecified severity Asthma persistence: unspecified Asthma complication type: uncomplicated Qualified Code(s): J45.909 - Unspecified asthma, uncomplicated Condition: Stable Disposition: HOME, SELF-CARE Additional Instructions: Your physical examination and vital signs are reassuring. There is no sign of bronchospasm at this time. Continue your current medications, follow-up with the listed primary care provider. Return if you worsen including difficulty breathing, fever, or any other concerning or worsening symptoms. Referrals: GIANCARLO CHANCE MD [Primary Care Provider] - Follow up as needed
[2019-01-25 06:27] VITALS: BP 137/84
== END 2019-01-25 06:27 | disposition home or self-care (01) ==
LOC: ER 04:58
DX: J45.909 Unspecified asthma, uncomplicated (principal)
CPT/HCPCS: 99283

== ENCOUNTER 2019-01-27 06:34 | Emergency (ER) | payer MEDICAID ==
[2019-01-27 06:41] VITALS: BP 127/69
--- NOTE | 2019-01-27 07:22 | ER Document Report ---
HPI - HPI Time Seen by Provider: 01/27/19 07:14 Pain Level: Denies Context: Patient is a 33-year-old male with a history of asthma that comes to the emergency department for chief complaint of wanting a prescription for prednisone. He states he is out, he has had a bad year for asthma, he wanted to start it again. However he denies wheezing, shortness of breath, cough, fever, chest pain, or any complaints at this time. He is not out of his inhaler reportedly. He has no other chronic complaints or requests. - REPRODUCTIVE Reproductive: DENIES: : Past Medical History - General Information source: Patient - Social History Smoking Status: Never Smoker Frequency of alcohol use: None Drug Abuse: None Lives with: Alone Family History: Reviewed & Not Pertinent, Other - Unknown Patient has suicidal ideation: No Patient has homicidal ideation: No Pulmonary Medical History: Reports: Hx Asthma Renal/ Medical History: Denies: Hx Peritoneal Dialysis GI Medical History: Reports: Hx Irritable Bowel - constipation Musculoskeletal Medical History: Reports Hx Arthritis, Reports Hx Musculoskeletal Trauma Psychiatric Medical History: Reports: Hx Anxiety, Hx Bipolar Disorder, Hx Depression, Hx Personality Disorder, Hx Schizoaffective Disorder, Hx Schizophrenia Past Surgical History: Reports: Hx Abdominal Surgery, Hx Appendectomy, Hx Cholecystectomy. Denies: Hx Orthopedic Surgery - fractured finger - Immunizations Immunizations up to date: Yes Hx Diphtheria, Pertussis, Tetanus Vaccination: Yes - 2012 Hx Pneumococcal Vaccination: 08/23/00 Vertical Provider Document - CONSTITUTIONAL General Appearance: WD/WN - Unkempt but still well-appearing, No Apparent Distress, Thin - INFECTION CONTROL TRAVEL OUTSIDE OF THE [place] IN LAST 30 DAYS: No COUNTRY TRAVELED TO/FROM: [place] - HEENT HEENT: Atraumatic, Normal ENT Exam, Normocephalic - NECK Neck: Normal Inspection - RESPIRATORY Respiratory: Breath Sounds Normal, No Respiratory Distress - CARDIOVASCULAR Cardiovascular: Regular Rate, Regular Rhythm - GI/ABDOMEN Gastrointestinal: Abdomen Soft, Abdomen Non-Tender - BACK Back: Normal Inspection - MUSCULOSKELETAL/EXTREMETIES Musculoskeletal/Extremeties: MAEW, FROM, Non-Tender - NEURO Level of Consciousness: Awake, Alert, Appropriate Motor/Sensory: No Motor Deficit, No Sensory Deficit - DERM Integumentary: Warm, Dry, No Rash Course - Re-evaluation Re-evalutation: Patient is here requesting a refill of prednisone. He has taken this several times this year already because of frequent asthma exacerbations. However his lungs are clear, he has no cough, he has no hypoxia or distress. Patient is not out of inhalers. I discussed this with patient. He is still requesting a prescription. I explained that he does not need this at this time, however I did provide this for him to start taking if he develops wheezing, cough, and eating. However if this starts he is to be re-seen and if he worsens he needs to come to come back here for evaluation. Patient states satisfaction and agreement with this plan. - Vital Signs Vital signs: Temp Pulse Resp BP Pulse Ox 97.9 F 51 L 15 127/69 H 99 01/27/19 06:40 01/27/19 06:40 01/27/19 06:40 01/27/19 06:40 01/27/19 06:40 Discharge - Discharge Clinical Impression: Has run out of medications Condition: Stable Disposition: HOME, SELF-CARE Additional Instructions: You have been provided with prednisone, however your lungs are clear, your oxygen is good, I recommend that you do not take and fill this unless you start developing cough, wheezing, and need to use your inhaler more than usual. If the symptoms do develop then start the prednisone and follow-up with primary care. Return if you worsen including difficulty breathing, fever, pain in your chest, or any other concerning or worsening symptoms. Prescriptions: Prednisone [Deltasone 20 mg Tablet] 3 tab PO DAILY 5 Days #15 tablet Referrals: GIANCARLO CHANCE MD [Primary Care Provider] - Follow up as needed
== END 2019-01-27 07:26 | disposition home or self-care (01) ==
LOC: ER 06:34
DX: Z76.0 Encounter for issue of repeat prescription (principal); J45.909 Unspecified asthma, uncomplicated
CPT/HCPCS: 99281

== ENCOUNTER 2019-01-28 18:59 | Emergency (ER) | payer MEDICAID ==
[2019-01-28 19:11] VITALS: BP 116/68
[2019-01-28] MEDS ORDERED: IPRATROPIUM/ALBUTEROL 0.5-2.5 MG/3 ML AMPUL NEB ONE (20:10)
[2019-01-28] MEDS ORDERED: ALBUTEROL SULFATE HFA (90 MCG/PUFF) 8 GM MDI (1 MDI/ER DISP) IH ONE (20:11)
--- NOTE | 2019-01-28 20:37 | ER Document Report ---
ED General - General Chief Complaint: Cough Stated Complaint: TROUBLE BREATHING, THROAT SPASMS Time Seen by Provider: 01/28/19 20:10 Primary Care Provider: GIANCARLO CHANCE MD [Primary Care Provider] - Follow up as needed Mode of Arrival: Ambulatory Information source: Patient TRAVEL OUTSIDE OF THE [place] IN LAST 30 DAYS: No COUNTRY TRAVELED TO/FROM: [facility] - [facility] Patient complains to provider of: Shortness of breath Onset: Other - Chronic, recurrent Onset/Duration: Sudden Quality of pain: No pain Severity: None Associated symptoms: Shortness of breath Exacerbated by: Denies Relieved by: Denies Similar symptoms previously: No Recently seen / treated by doctor: No Notes: 33-year-old -[place] male with history of psychiatric illness and homelessness and recurrent ER visits here for shortness of breath. He has multiple visits monthly for the same chief complaint. - Related Data Allergies/Adverse Reactions: No Known Allergies Allergy (Verified 01/28/19 19:00) Past Medical History - General Information source: Patient - Social History Smoking Status: Smoker,Current Status Unk Family History: Reviewed & Not Pertinent, Other - Unknown Pulmonary Medical History: Reports: Hx Asthma Renal/ Medical History: Denies: Hx Peritoneal Dialysis GI Medical History: Reports: Hx Irritable Bowel - constipation Musculoskeletal Medical History: Reports Hx Arthritis, Reports Hx Musculoskeletal Trauma Psychiatric Medical History: Reports: Hx Anxiety, Hx Bipolar Disorder, Hx Depression, Hx Personality Disorder, Hx Schizoaffective Disorder, Hx Schizophrenia Past Surgical History: Reports: Hx Abdominal Surgery, Hx Appendectomy, Hx Cholecystectomy. Denies: Hx Orthopedic Surgery - fractured finger - Immunizations Immunizations up to date: Yes Hx Diphtheria, Pertussis, Tetanus Vaccination: Yes - 2012 Hx Pneumococcal Vaccination: 08/23/00 Review of Systems - Review of Systems Notes: Constitutional: No fevers. No chills. EENT: No eye redness. No eye pain. No ear pain. No sore throat. Cardiovascular: No chest pain. No palpitations. Respiratory: Positive for shortness of breath Gastrointestinal: No abdominal pain. No nausea, vomiting, or diarrhea. Genitourinary: Atraumatic. No lesions. No pain. No discharge. Musculoskeletal: Atraumatic. No swelling. No deformities. Skin: No rash or lesions. Lymphatic: No swollen lymph nodes. Neurologic: No headache. No syncope. Psychiatric: No suicidal or homicidal ideation. Physical Exam - Vital signs Vitals: Temp Pulse Resp BP Pulse Ox 99.0 F 77 17 116/68 95 01/28/19 19:10 01/28/19 19:10 01/28/19 19:10 01/28/19 19:10 01/28/19 19:10 - Notes Notes: General: Well-developed, well-nourished. In no acute distress. Non-toxic appearing. Cardiac: Well-perfused. Regular rate and rhythm. No murmurs, rubs, or gallops. Pulmonary: No respiratory distress. No cyanosis. Bilateral lung fiels are clear to auscultation. Abdominal: Non-distended. Non-rigid. Bowels sounds are present in all four quadrants. No guarding or rebound. HEENT: Head is atraumatic. Conjunctivae not reddened. No tearing. PERRL. EOMI. Orbits atraumatic. No periorbital swelling or erythema. Oropharynx is without erythema, swelling, or exudates. Neck: Supple. No adenopathy. No meningismus. Dermatologic: Warm with good turgor. No rash. Atraumatic. Chest: Atraumatic. No chest wall tenderness to palpation. Musculoskeletal: Moves all extremities well. No range of motion deficits. no muscular or joint tenderness. No paraspinal muscle tenderness. no midline spinal tenderness or step-off. Genitourinary: Examination deferred Neurologic: No gross neurologic deficits. Psychiatric: Normal mood. Course - Re-evaluation Re-evalutation: 01/28/19 20:38 Unfortunately, before patient received any medications, he became aggressive with staff and was escorted from the premises by security. - Vital Signs Vital signs: Temp Pulse Resp BP Pulse Ox 99.0 F 77 17 116/68 95 01/28/19 19:10 01/28/19 19:10 01/28/19 19:10 01/28/19 19:10 01/28/19 19:10 Discharge - Discharge Clinical Impression: Shortness of breath Condition: Good Disposition: ELOPED Referrals: GIANCARLO CHANCE MD [Primary Care Provider] - Follow up as needed
== END 2019-01-28 21:28 | disposition left against medical advice (07) ==
LOC: ER 18:59
DX: R06.02 Shortness of breath (principal); R05 Cough; Z59.0 Homelessness; Z90.49 Acquired absence of other specified parts of digestive tract
CPT/HCPCS: 99281

== ENCOUNTER 2019-01-28 22:06 | Emergency (ER) | payer MEDICAID ==
[2019-01-28 22:38] VITALS: BP 139/72
[2019-01-28] MEDS ORDERED: IPRATROPIUM/ALBUTEROL 0.5-2.5 MG/3 ML AMPUL NEB ONE (23:56)
[2019-01-28] MEDS ORDERED: METOCLOPRAMIDE HCL 10 MG TABLET PO ONE (23:56)
[2019-01-28] MEDS ORDERED: DIPHENHYDRAMINE HCL 50 MG CAPSULE PO ONE (23:56)
[2019-01-28] MEDS ORDERED: IBUPROFEN 600 MG TABLET PO ONE (23:56)
--- NOTE | 2019-01-28 23:57 | ER Document Report ---
ED General - General Chief Complaint: Headache Stated Complaint: HEADACHE Time Seen by Provider: 01/28/19 23:45 Primary Care Provider: GIANCARLO CHANCE MD [Primary Care Provider] - Follow up as needed Mode of Arrival: Ambulatory Information source: Patient, [facility] Records Notes: 33-year-old male with schizophrenia, bipolar disorder, personality disorder who is homeless presents with multiple complaints including headache, cough, not feeling well. This is the patient's 16th visit in the last 21 days. He is well-known to the department. He was seen earlier today for similar symptoms but became combative and was escorted off the premises by security. Patient describes a headache is located in his forehead and is a throbbing aching pain. Patient's cough is described as a productive cough with green stool sputum. TRAVEL OUTSIDE OF THE [place] IN LAST 30 DAYS: No COUNTRY TRAVELED TO/FROM: [facility] Onset: Other Onset/Duration: Gradual, Persistent Quality of pain: Achy, Throbbing Severity: Mild Associated symptoms: Body/muscle aches, Nonproductive cough, Headache, Shortness of breath Exacerbated by: Denies Relieved by: Denies Similar symptoms previously: Yes Recently seen / treated by doctor: Yes - Related Data Allergies/Adverse Reactions: No Known Allergies Allergy (Verified 01/28/19 19:00) Past Medical History - General Information source: Patient, [facility] Records - Social History Smoking Status: Never Smoker Frequency of alcohol use: None Drug Abuse: None Lives with: Homeless Family History: Reviewed & Not Pertinent, Other - Unknown Pulmonary Medical History: Reports: Hx Asthma Renal/ Medical History: Denies: Hx Peritoneal Dialysis GI Medical History: Reports: Hx Irritable Bowel - constipation Musculoskeletal Medical History: Reports Hx Arthritis, Reports Hx Musculoskeletal Trauma Psychiatric Medical History: Reports: Hx Anxiety, Hx Bipolar Disorder, Hx Depression, Hx Personality Disorder, Hx Schizoaffective Disorder, Hx Schizophrenia Past Surgical History: Reports: Hx Abdominal Surgery, Hx Appendectomy, Hx Cholecystectomy. Denies: Hx Orthopedic Surgery - fractured finger - Immunizations Immunizations up to date: Yes Hx Diphtheria, Pertussis, Tetanus Vaccination: Yes - 2012 Hx Pneumococcal Vaccination: 08/23/00 Review of Systems - Review of Systems Notes: REVIEW OF SYSTEMS: CONSTITUTIONAL : Denies fever, chills, or sweats. Denies recent illness. Denies weight loss, recent hospitalizations. EENT: Denies visual changes, eye pain. Denies sore throat, oral lesions, difficulty swallowing. CARDIOVASCULAR: Denies chest pain. Denies palpitations. Denies lower extremity edema. RESPIRATORY: + cough. + shortness of breath, wheezing. GASTROINTESTINAL: Denies abdominal pain or distention. Denies nausea, vomiting, or diarrhea. Denies blood in vomitus, stools, or per rectum. Denies black, tarry stools. Denies constipation. GENITOURINARY: Denies difficulty urinating, painful urination, frequency, blood in urine, testicular pain or penile discharge. MUSCULOSKELETAL: Denies back or neck pain or stiffness. Denies joint pain or swelling. SKIN: Denies rash, lesions or sores. HEMATOLOGIC : Denies easy bruising or bleeding. LYMPHATIC: Denies swollen glands. NEUROLOGICAL: Denies confusion or altered mental status. Denies loss of consciousness. Denies dizziness or lightheadedness. + headache. Denies weakness or paralysis. Denies problems difficulty with ambulation, slurred speech. Denies sensory loss, numbness, or tingling. Denies seizures. PSYCHIATRIC: Denies anxiety or stress. Denies depression, suicidal ideation, or Physical Exam - Vital signs Vitals: Temp Pulse Resp BP Pulse Ox 98.3 F 75 18 139/72 H 96 01/28/19 22:36 01/28/19 22:36 01/28/19 22:36 01/28/19 22:36 01/28/19 22:36 - Notes Notes: PHYSICAL EXAMINATION: GENERAL: Well-appearing, well-nourished and in no acute distress. HEAD: Atraumatic, normocephalic. EYES: Pupils equal round and reactive to light, extraocular movements intact, sclera anicteric, conjunctiva are normal. ENT: Nares patent, oropharynx clear without exudates. Moist mucous membranes. NECK: Normal range of motion, supple without lymphadenopathy LUNGS: Breath sounds clear to auscultation bilaterally and equal. Mild wheeze lower lung garcia. HEART: Regular rate and rhythm without murmurs ABDOMEN: Soft, nontender, nondistended abdomen. No guarding, no rebound. No masses appreciated. Musculoskeletal: Normal range of motion, no pitting or edema. No cyanosis. NEUROLOGICAL: Cranial nerves grossly intact. Normal speech, normal gait. Normal sensory, motor exams PSYCH: Normal mood, normal affect. SKIN: Warm, Dry, normal turgor, no rashes or lesions noted. Course - Re-evaluation Re-evalutation: 01/30/19 10:13 Chest X-Ray 01/28/19 23:57 IMPRESSION: No evidence of acute cardiopulmonary disease. Temp Pulse Resp BP Pulse Ox 98.3 F 75 18 139/72 H 96 01/28/19 22:36 01/28/19 22:36 01/28/19 22:36 01/28/19 22:36 01/28/19 22:36 Presentation is most consistent with a viral upper respiratory infection. Patient is overall well appearance, vitals within normal limits, well-hydrated. Patient denies any headache, neck pain, and has no evidence of meningismus on examination. Lungs are clear bilaterally. No evidence of respiratory distress. Based on clinical exam and history, I do not suspect an acute pneumonia, meningitis, strep pharyngitis, or an acute encephalitis. No laboratory or imaging testing is indicated at this time. Will discharge patient with return precautions and followup recommendations. They are in agreement this plan have verbalized understanding return precautions. - Vital Signs Vital signs: Temp Pulse Resp BP Pulse Ox 98.3 F 75 18 139/72 H 96 01/28/19 22:36 01/28/19 22:36 01/28/19 22:36 01/28/19 22:36 01/28/19 22:36 - Diagnostic Test Radiology reviewed: Image reviewed, Reports reviewed Discharge - Discharge Clinical Impression: Bronchitis URI (upper respiratory infection) Qualifiers: URI type: unspecified URI Qualified Code(s): J06.9 - Acute upper respiratory infection, unspecified Nausea & vomiting Qualifiers: Vomiting type: unspecified Vomiting Intractability: non-intractable Qualified Code(s): R11.2 - Nausea with vomiting, unspecified Condition: Good Disposition: HOME, SELF-CARE Instructions: Antinausea Medication ([facility]), Headache ([facility]), Upper Respiratory Illness ([facility]) Additional Instructions: You were seen for symptoms most consistent with bronchitis. This can take up to 12 weeks to fully resolve. This is generally due to a viral infection. Please follow-up with your primary doctor in the next 2-3 days. Return if you develop worsening cough, vomiting, fever >100.4, pass out, begin coughing blood, or have any other symptoms that are concerning to you. Please use the medications prescribed today as directed. Follow up with your [id number] hours for further care or return to the ED IMMEDIATELY if symptoms worsen or you have any concerns. If you cannot afford to follow up with your primary care physician a list of low cost clinics have been provided at the end of your discharge papers as well. Most prescribed medications have multiple side effects. The safest thing to do is when filling your prescription speak to your pharmacist regarding possible interactions with your normal home medications and over the counter medications such as Ibuprofen, Tylenol, Benadryl. If you experience any symptoms that cause you discomfort or concern you should discontinue the medication immediately and return to the emergency room or call your primary care physician. Forms: Elevated Blood Pressure Referrals: GIANCARLO CHANCE MD [Primary Care Provider] - Follow up as needed
[2019-01-29] MEDS ORDERED: ONDANSETRON 4 MG TAB.RAPDIS ONE (01:02)
[2019-01-29] MEDS ORDERED: ONDANSETRON 4 MG TAB.RAPDIS PO ONE (01:04)
--- NOTE | 2019-01-29 01:14 | RADIOLOGY REPORT (SQ) ---
XR CHEST 2 VIEWS HISTORY: Productive cough. COMPARISON: 01/18/2019 FINDINGS: The heart size is within normal limits. No consolidation, pleural effusion, or pneumothorax is seen. There are no acute bony findings. IMPRESSION: No evidence of acute cardiopulmonary disease.
[2019-01-29] MEDS ORDERED: ALBUTEROL SULFATE HFA (90 MCG/PUFF) 8 GM MDI (1 MDI/ER DISP) IH PRN (01:22)
[2019-01-29] MEDS ORDERED: ONDANSETRON ODT 4 MG TAB (6 TAB/ER DISP) PO PRN (01:28)
== END 2019-01-29 01:44 | disposition home or self-care (01) ==
LOC: ER 22:06
DX: J06.9 Acute upper respiratory infection, unspecified (principal); R51 Headache; R11.2 Nausea with vomiting, unspecified; M79.10 Myalgia, unspecified site; R06.02 Shortness of breath; Z59.0 Homelessness; Z90.49 Acquired absence of other specified parts of digestive tract; J40 Bronchitis, not specified as acute or chronic
CPT/HCPCS: 94640; 99284; 71046; S0119; J3490 ×2; J7620

== ENCOUNTER 2019-02-01 04:38 | Emergency (ER) | payer MEDICAID ==
[2019-02-01] MEDS ORDERED: ALBUTEROL SULFATE 0.083% NEB 2.5 MG/3 ML AMPUL NEB ONE ×2 (04:52→05:30)
--- NOTE | 2019-02-01 05:10 | ER Document Report ---
ED General - General Chief Complaint: Cough Stated Complaint: COUGH Time Seen by Provider: 02/01/19 04:47 Primary Care Provider: GIANCARLO CHANCE MD [Primary Care Provider] - Follow up as needed Notes: Patient is a pleasant 33-year-old male well-known to me due to frequent visits to the ED who presents with complaint of difficulty breathing. He does have a history of asthma. Does not smoke. He says been using his inhaler but still has recurrent coughing and some wheezing. No fevers. No vomiting. No diarrhea. No increased work of breathing. No other complaints at this time. TRAVEL OUTSIDE OF THE [place] IN LAST 30 DAYS: No COUNTRY TRAVELED TO/FROM: [facility] - Related Data Allergies/Adverse Reactions: No Known Allergies Allergy (Verified 02/01/19 04:39) Past Medical History - Social History Smoking Status: Never Smoker Frequency of alcohol use: None Drug Abuse: None Family History: Reviewed & Not Pertinent, Other - Unknown Patient has suicidal ideation: No Patient has homicidal ideation: No Pulmonary Medical History: Reports: Hx Asthma Renal/ Medical History: Denies: Hx Peritoneal Dialysis GI Medical History: Reports: Hx Irritable Bowel - constipation Musculoskeletal Medical History: Reports Hx Arthritis, Reports Hx Musculoskeletal Trauma Psychiatric Medical History: Reports: Hx Anxiety, Hx Bipolar Disorder, Hx Depression, Hx Personality Disorder, Hx Schizoaffective Disorder, Hx Schizophrenia Past Surgical History: Reports: Hx Abdominal Surgery, Hx Appendectomy, Hx Cholecystectomy. Denies: Hx Orthopedic Surgery - fractured finger - Immunizations Immunizations up to date: Yes Hx Diphtheria, Pertussis, Tetanus Vaccination: Yes - 2012 Hx Pneumococcal Vaccination: 08/23/00 Review of Systems - Review of Systems Notes: My Normal Review Basic REVIEW OF SYSTEMS: CONSTITUTIONAL : Denies fever, chills, or sweats. Denies recent illness. RESPIRATORY: Cough. Some wheezing. GASTROINTESTINAL: Denies abdominal pain. Denies nausea, vomiting, or diarrhea. MUSCULOSKELETAL: Denies neck or back pain or joint pain or swelling. SKIN: Denies rash or skin lesions. NEUROLOGICAL: Denies altered mental status or loss of consciousness. ALL OTHER SYSTEMS REVIEWED AND NEGATIVE. Physical Exam - Vital signs Vitals: Temp Pulse Resp BP Pulse Ox 98.1 F 60 20 135/71 H 100 02/01/19 04:40 02/01/19 04:40 02/01/19 04:40 02/01/19 04:40 02/01/19 04:40 - Notes Notes: General Appearance: Well nourished, alert, cooperative, no acute distress, no obvious discomfort. Vitals: reviewed, See vital signs table. Head: no swelling or tenderness to the head Eyes: PERRL, EOMI, Conjuctiva clear Mouth: No decreasd moisture Lungs: Scattered mild wheezing. Good air exchange. Heart: Normal rate, Regular rythm, No murmur, no rub Extremities: good pulses in upper extremities Skin: warm, dry, appropriate color, no rash Neuro: speech clear, oriented x 3, normal affect, responds appropriately to questions. Course - Re-evaluation Re-evalutation: 02/01/19 06:11 After first breathing treatment patient's wheezing was diminished but he still had some there. I therefore did repeat breathing treatment. His wheezing is now completely gone and he has normal air exchange and movement. He is no increased work of breathing. He looks very well. I feel he safe to be discharged home. I will give him an albuterol inhaler being that his current albuterol inhaler is almost out. I encouraged him return to ER anytime if he has recurrent wheezing not responding to inhaler, difficulty breathing, fevers, or if he feels unwell. Patient agrees with plan will be discharged home. Dictation of this chart was performed using voice recognition software; therefore, there may be some unintended grammatical errors. - Vital Signs Vital signs: Temp Pulse Resp BP Pulse Ox 98.1 F 60 20 135/71 H 100 02/01/19 04:40 02/01/19 04:40 02/01/19 04:40 02/01/19 04:40 02/01/19 04:40 Discharge - Discharge Clinical Impression: Wheezing Condition: Good Disposition: HOME, SELF-CARE Additional Instructions: ASTHMA: You have been diagnosed as having asthma. This is a condition where there is episodic tightness in the bronchial tubes. Allergies, infections, and polluted or cold air may be contributing factors. Emergency treatment of a severe asthma attack may include adrenaline shots, or bronchodilator aerosol. You may feel lightheaded, have a decreased exercise tolerance and a rapid pulse for an hour or two. Rest and get plenty of fluids. Home treatment of asthma requires bronchodilator drugs. These can be administered by injection, inhalation, or by mouth. Antibiotics and corticosteroids may be required for some patients. You should avoid chemical fumes, dusts, pollens, and exercising in very cold or dry air. If you smoke, stop!! If you develop a fever, increased wheezing, chest pain, or severe shortness of breath, you should contact the doctor immediately. INHALED BRONCHODILATORS: You have received treatment(s) of and/or prescription for an inhaled bronchodilator -- a medication which stimulates the airways in the lung to dilate. This improves the flow of air in asthma, bronchitis, and emphysema. These medicines have some similarity to adrenaline, and can cause similar side effects: shakiness, racing heart, and a sense of nervousness. These side effects decrease with time. Contact your doctor if these side effects are severe. Do not over-use the medicine. Too-frequent use of the inhaler may make it ineffective. Call your doctor if the inhaler is not controlling your symptoms at the prescribed doses. FOLLOW-UP CARE: If you have been referred to a physician for follow-up care, call the physicians office for an appointment as you were instructed or within the next two days. If you experience worsening or a significant change in your symptoms, notify the physician immediately or return to the Emergency Department at any time for re-evaluation. Please return to ER immediately if you have recurrent wheezing not responding to your inhaler, difficulty breathing, fevers, or if you feel unwell. Referrals: GIANCARLO CHANCE MD [Primary Care Provider] - Follow up as needed
[2019-02-01] MEDS ORDERED: PREDNISONE 20 MG TABLET PO ONE (05:29)
[2019-02-01] MEDS ORDERED: ALBUTEROL SULFATE HFA (90 MCG/PUFF) 8 GM MDI (1 MDI/ER DISP) IH ONE (06:10)
[2019-02-01 06:53] VITALS: BP 107/66
== END 2019-02-01 06:53 | disposition home or self-care (01) ==
LOC: ER 04:38
DX: R06.2 Wheezing (principal); R05 Cough; M19.90 Unspecified osteoarthritis, unspecified site; Z90.49 Acquired absence of other specified parts of digestive tract
CPT/HCPCS: 94640 ×2; 99283; J7512; J3490

== ENCOUNTER 2019-02-02 22:23 | Emergency (ER) | payer MEDICAID ==
[2019-02-03] MEDS ORDERED: IPRATROPIUM/ALBUTEROL 0.5-2.5 MG/3 ML AMPUL NEB ONE (01:06)
[2019-02-03] MEDS ORDERED: PREDNISONE 20 MG TABLET PO ONE (01:06)
--- NOTE | 2019-02-03 02:34 | ER Document Report ---
HPI - HPI Time Seen by Provider: 02/03/19 01:06 Pain Level: 3 Context: Patient is a 33-year-old male who presents the department with a chief complaint of wheezing and shortness of breath. He states that his symptoms started a few hours ago. He does have a history of asthma. He has been taking his inhaled steroids and albuterol as directed. He states that since he has been in some shelters, he has been around people who smoke and this triggers his asthma. Denies any chest pain, abdominal pain, or any other symptoms. Denies any fever. - CONSTITUTIONAL Constitutional: DENIES: Fever, Chills - EENT EENT: DENIES: Sore Throat, Ear Pain - NEURO Neurology: DENIES: Weakness - CARDIOVASCULAR Cardiovascular: DENIES: Chest pain - RESPIRATORY Respiratory: REPORTS: Trouble Breathing, Coughing - GASTROINTESTINAL Gastrointestinal: DENIES: Abdominal Pain, Nausea, Patient vomiting, Diarrhea - REPRODUCTIVE Reproductive: DENIES: : - MUSCULOSKELETAL Musculoskeletal: DENIES: Extremity pain - DERM Skin Color: Normal Skin Problems: None Past Medical History - Social History Smoking Status: Never Smoker Frequency of alcohol use: None Drug Abuse: None Family History: Reviewed & Not Pertinent, Other - Unknown Patient has suicidal ideation: No Patient has homicidal ideation: No Pulmonary Medical History: Reports: Hx Asthma Renal/ Medical History: Denies: Hx Peritoneal Dialysis GI Medical History: Reports: Hx Irritable Bowel - constipation Musculoskeletal Medical History: Reports Hx Arthritis, Reports Hx Musculoskeletal Trauma Psychiatric Medical History: Reports: Hx Anxiety, Hx Bipolar Disorder, Hx Depression, Hx Personality Disorder, Hx Schizoaffective Disorder, Hx Schizophrenia Past Surgical History: Reports: Hx Abdominal Surgery, Hx Appendectomy, Hx Cholecystectomy. Denies: Hx Orthopedic Surgery - fractured finger - Immunizations Immunizations up to date: Yes Hx Diphtheria, Pertussis, Tetanus Vaccination: Yes - 2012 Hx Pneumococcal Vaccination: 08/23/00 Vertical Provider Document - CONSTITUTIONAL Agree With Documented VS: Yes Exam Limitations: No Limitations General Appearance: No Apparent Distress - INFECTION CONTROL TRAVEL OUTSIDE OF THE [place] IN LAST 30 DAYS: No COUNTRY TRAVELED TO/FROM: [place] - HEENT HEENT: Atraumatic, Normocephalic, PERRLA - NECK Neck: Normal Inspection - RESPIRATORY Respiratory: No Respiratory Distress, Wheezing - Expiratory - CARDIOVASCULAR Cardiovascular: Regular Rate, Regular Rhythm Pulses: Normal: Radial - MUSCULOSKELETAL/EXTREMETIES Musculoskeletal/Extremeties: FROM - NEURO Level of Consciousness: Awake, Alert, Appropriate - DERM Integumentary: Warm, Dry Course - Re-evaluation Re-evalutation: 02/03/19 02:30 Patient states that he feels better after receiving a DuoNeb treatment and a dose of steroids. Lung sounds are now clear. Chest x-ray is not indicated at this time. He is stable for discharge at this time. He will follow-up with his primary care provider regards to this visit. Verbal discharge instructions were given to the patient. They verbalized understanding. They are stable for discharge. - Vital Signs Vital signs: Temp Pulse Resp BP Pulse Ox 97.9 F 73 18 146/103 H 97 02/03/19 00:47 02/03/19 00:47 02/03/19 00:47 02/03/19 00:47 02/03/19 00:47 Discharge - Discharge Clinical Impression: Wheezing Condition: Stable Disposition: HOME, SELF-CARE Additional Instructions: You were seen for an asthma exacerbation. Your symptoms improved with treatment here in the emergency department. However, it is very important that you return to the emergency department immediately if you began to have worsening difficulty breathing that does not respond to your normal home inhaler. Please also follow closely with your primary care physician. you should also return to emergency department if you develop fever greater than 101, persistent cough, persistent vomiting, pass out, or any other symptoms that are concerning to you. Referrals: GIANCARLO CHANCE MD [Primary Care Provider] - Follow up as needed
[2019-02-03 03:50] VITALS: BP 148/98
== END 2019-02-03 02:58 | disposition home or self-care (01) ==
LOC: ER 22:23
DX: J45.909 Unspecified asthma, uncomplicated (principal); R06.02 Shortness of breath; Z79.51 Long term (current) use of inhaled steroids
CPT/HCPCS: 94640; 99284; J7512; J7620

== ENCOUNTER 2019-02-06 22:13 | Emergency (ER) | payer MEDICAID ==
[2019-02-06 22:23] VITALS: BP 130/76
--- NOTE | 2019-02-06 23:44 | ER Document Report ---
HPI - HPI Patient complains to provider of: Sores to hand and arm wants to make sure they are not infected Time Seen by Provider: 02/06/19 23:35 Onset: Other - Patient was seen here on 04 February. He injured his arm he had some cuts and his wounds were examined then Onset/Duration: Better Quality of pain: Achy Severity: Mild Pain Level: 2 Context: 33-year-old male presented to ED to have his wounds checked. He states that he wanted to make sure that his wounds were not infected. He states he injured them at the same time in his arm. There is no drainage there is no redness. He states there is no change in the pain or drainage. Associated Symptoms: None Exacerbated by: Denies Relieved by: Denies Similar symptoms previously: Yes Recently seen / treated by doctor: Yes - ROS ROS below otherwise negative: Yes - CONSTITUTIONAL Constitutional: DENIES: Fever, Chills - EENT EENT: DENIES: Sore Throat, Ear Pain, Nasal Drainage-Clear, Nasal Drainage- Purulent, Congestion, Eye problems - NEURO Neurology: DENIES: Headache, Weakness, Vision blurred, Dizzinesss / Vertigo - CARDIOVASCULAR Cardiovascular: DENIES: Chest pain - RESPIRATORY Respiratory: DENIES: Trouble Breathing, Coughing - GASTROINTESTINAL Gastrointestinal: DENIES: Abdominal Pain, Nausea, Patient vomiting, Diarrhea, Constipation, Black / Bloody Stools - URINARY Urinary: DENIES: Dysuria, Urgency, Frequency - REPRODUCTIVE Reproductive: DENIES: :, Postmenopausal, Abnormal bleeding / discharge - MUSCULOSKELETAL Musculoskeletal: REPORTS: Extremity pain - DERM Skin Color: Normal Skin Problems: Open to Air Past Medical History - General Information source: Patient - Social History Smoking Status: Never Smoker Cigarette use (# per day): No Chew tobacco use (# tins/day): No Smoking Education Provided: No Frequency of alcohol use: None Drug Abuse: None Family History: Reviewed & Not Pertinent - Past Medical History Cardiac Medical History: Reports: None Pulmonary Medical History: Reports: Hx Asthma EENT Medical History: Reports: None Neurological Medical History: Reports: None Endocrine Medical History: Reports: None Renal/ Medical History: Reports: None Malignancy Medical History: Reports None GI Medical History: Reports: Hx Irritable Bowel - constipation Musculoskeletal Medical History: Reports Hx Arthritis, Reports Hx Musculoskeletal Trauma Skin Medical History: Reports None Psychiatric Medical History: Reports: Hx Anxiety, Hx Bipolar Disorder, Hx Depression, Hx Personality Disorder, Hx Schizoaffective Disorder, Hx Schizophrenia Traumatic Medical History: Reports: None Infectious Medical History: Reports: None Past Surgical History: Reports: Hx Abdominal Surgery, Hx Appendectomy, Hx Cholecystectomy. Denies: Hx Orthopedic Surgery - fractured finger - Immunizations Immunizations up to date: Yes Hx Diphtheria, Pertussis, Tetanus Vaccination: Yes - 2012 Hx Pneumococcal Vaccination: 08/23/00 Vertical Provider Document - CONSTITUTIONAL Agree With Documented VS: Yes Exam Limitations: No Limitations General Appearance: WD/WN, No Apparent Distress - INFECTION CONTROL TRAVEL OUTSIDE OF THE [place] IN LAST 30 DAYS: No COUNTRY TRAVELED TO/FROM: [facility] - HEENT HEENT: Atraumatic, Normal ENT Exam, PERRLA - NECK Neck: Normal Inspection - RESPIRATORY Respiratory: Breath Sounds Normal, No Respiratory Distress - CARDIOVASCULAR Cardiovascular: Regular Rate, Regular Rhythm - MUSCULOSKELETAL/EXTREMETIES Musculoskeletal/Extremeties: MAEW, FROM, Tender - Left arm from previous injury - NEURO Level of Consciousness: Awake - no new changes, Alert, Appropriate Deep Tendon Reflexes: 2+ - DERM Integumentary: negative: Laceration - Several small sores to his left arm he just wants to make sure they are not infected redness no drainage Course - Re-evaluation Re-evalutation: 02/06/19 23:43 Patient was given instructions for wound care. He was instructed to use soap and water on the sores and stop using peroxide. He was then instructed to use bacitracin and Band-Aids. Soap bacitracin and bandage were provided for the patient. Patient to follow-up with his primary doctor. - Vital Signs Vital signs: Temp Pulse Resp BP Pulse Ox 98.2 F 76 16 130/76 H 96 02/06/19 22:21 02/06/19 22:21 02/06/19 22:21 02/06/19 22:21 02/06/19 22:21 Discharge - Discharge Clinical Impression: Encounter for wound re-check Condition: Stable Disposition: HOME, SELF-CARE Additional Instructions: You were seen today to recheck the wound from a previous fall. Please do not continue to use peroxide as this will denatured the skin and cause you to get an infection right now there is no infections noted SOAP CLEANSING: Gently wash the wound daily using a mild soap (like Ivory, Phisoderm, Neutrogena). Use warm water, rubbing gently until all debris, ooze, and crusting have been washed from the wound. Allow to dry briefly (about 10 minutes) after cleaning. Repeat this cleansing at least three times a day for the first two days and then once or twice a day. ANTIBIOTIC OINTMENT PROTECTION: Your wounds are such that dressing them is not practical or optional. After cleansing, you should apply a thin coating of antibiotic ointment (Bacitracin, not Neosporin) to the wounds at least three times daily. This lessens infection risk, and may decrease the amount of scarring. Use a q-tip or dull butter knife, not your finger, to apply this ointment. Any debris or ooze which builds up in the ointment should be gently rubbed off with a sterile gauze pad. Harder crusting may need to be gently scrubbed off with a clean wash cloth with soap and warm water, perhaps applying a warm, wet wash cloth to the wound for ten minutes first. Development of redness, severe itching, or blistering may mean allergy to the ointment. See the doctor. FOLLOW-UP CARE: If you have been referred to a physician for follow-up care, call the physicians office for an appointment as you were instructed or within the next two days. If you experience worsening or a significant change in your symptoms, notify the physician immediately or return to the Emergency Department at any time for re-evaluation. Forms: Elevated Blood Pressure Referrals: GIANCARLO CHANCE MD [Primary Care Provider] - Follow up as needed
== END 2019-02-06 23:51 | disposition home or self-care (01) ==
LOC: ER 22:13
DX: S41.112D Laceration without foreign body of left upper arm, subsequent encounter (principal); F31.9 Bipolar disorder, unspecified; F60.9 Personality disorder, unspecified; F20.9 Schizophrenia, unspecified; Z90.49 Acquired absence of other specified parts of digestive tract
CPT/HCPCS: 99282

== ENCOUNTER 2019-02-10 19:31 | Emergency (ER) | payer MEDICAID ==
[2019-02-10] MEDS ORDERED: METOCLOPRAMIDE HCL ORAL SOLN 10 MG/10 ML UDCUP PO ONE (20:41)
[2019-02-10] MEDS ORDERED: FAMOTIDINE 20 MG TABLET PO ONE (20:41)
[2019-02-10] MEDS ORDERED: MAG HYDROX/AL HYDROX/SIMETH SUSP 30 ML UDCUP PO ONE (20:41)
--- NOTE | 2019-02-10 20:47 | ER Document Report ---
HPI - HPI Time Seen by Provider: 02/10/19 20:24 Pain Level: 2 Notes: Patient is a 33-year-old male well-known to the emergency department who presents complaining of belching that began a few hours ago. Patient states that he is still able to eat and drink without difficulty. He is swallowing without any regurgitation or gagging. He is urinating normally and having normal bowel movements. Denies any excessive alcohol intake. Denies drug allergies. No recent illness. Denies any headache, fever, neck pain, drooling, hoarseness, URI, sore throat, chest pain, palpitations, syncope, cough, shortness of breath, wheeze, dyspnea, abdominal pain, nausea/vomiting/diarrhea, urinary retention, dysuria, hematuria, or rash. - ROS Systems Reviewed and Negative: Yes All other systems reviewed and negative - REPRODUCTIVE Reproductive: DENIES: : Past Medical History - Social History Smoking Status: Never Smoker Chew tobacco use (# tins/day): No Frequency of alcohol use: None Drug Abuse: None Family History: Reviewed & Not Pertinent Patient has suicidal ideation: No Patient has homicidal ideation: No Pulmonary Medical History: Reports: Hx Asthma Renal/ Medical History: Denies: Hx Peritoneal Dialysis GI Medical History: Reports: Hx Irritable Bowel - constipation Musculoskeletal Medical History: Reports Hx Arthritis, Reports Hx Musculoskeletal Trauma Psychiatric Medical History: Reports: Hx Anxiety, Hx Bipolar Disorder, Hx Depres zeynep, Hx Personality Disorder, Hx Schizoaffective Disorder, Hx Schizophrenia Past Surgical History: Reports: Hx Abdominal Surgery, Hx Appendectomy, Hx Cholecystectomy. Denies: Hx Orthopedic Surgery - fractured finger - Immunizations Immunizations up to date: Yes Hx Diphtheria, Pertussis, Tetanus Vaccination: Yes - 2012 Hx Pneumococcal Vaccination: 08/23/00 Vertical Provider Document - CONSTITUTIONAL Agree With Documented VS: Yes Notes: PHYSICAL EXAMINATION: GENERAL: Well-appearing, well-nourished and in no acute distress. A&Ox4. Answers questions appropriately. Moves comfortably w/o notable distress HEAD: Atraumatic, normocephalic. EYES: Pupils equal round and reactive to light, extraocular movements intact, sclera anicteric, conjunctiva are normal. ENT: EAC clear b/l. TM's intact b/l without erythema, fluid, or perforation. Nares patent and without discharge. oropharynx w/o erythema without exudates. No tonsilar hypertrophy with mild erythema no exudate. No palatine shift. Uvula midline. No tongue protrusion. No drooling, hoarseness, or airway compromise. Moist mucous membranes. No sinus tenderness. NECK: Normal range of motion, supple without lymphadenopathy. No rigidity/meningismus. LUNGS: Breath sounds clear to auscultation bilaterally and equal. No wheezes rales or rhonchi. No retractions HEART: Regular rate and rhythm without murmurs, rubs, gallops. ABDOMEN: Soft, nontender, nondistended abdomen. No guarding, no rebound. Normal bowel sounds present. No CVA tenderness bilaterally. NEUROLOGICAL: Normal speech, normal gait. PSYCH: Normal mood, normal affect. SKIN: Warm, Dry, normal turgor, no rashes or lesions noted. - INFECTION CONTROL TRAVEL OUTSIDE OF THE [place] IN LAST 30 DAYS: No COUNTRY TRAVELED TO/FROM: [facility] Course - Re-evaluation Re-evalutation: 02/10/19 20:44 Patient is an afebrile, well-hydrated, 33-year-old male who presents with burping/belching. Vitals are acceptable without significant tachycardia, tachypnea, or hypoxia. PE is otherwise unremarkable. Patient is nontoxic- appearing is able to tolerate p.o. without difficulty. Reviewed with Dr. Ko who agrees with dispo/plan. Pepcid and partial GI cocktail (minus lidocaine) given PO today. No further work-up warranted. Patient's abdomen is soft and nontender. Lungs are clear to auscultation bilaterally. Low suspicion for any sepsis, meningitis, severe dehydration, respiratory compromise, acute abd, peritonsilar/pharyngeal abscess, epiglottitis, or other systemic emergent condition at this time. Pt is aware that condition can change from initial presentation and he needs to monitor symptoms closely and seek medical attention with any acute changes. Recheck with your PCM in 2 to 3 days. Consider consult with GI. Return to the ED with any other worsening/concerning symptoms. Patient is in agreement. - Vital Signs Vital signs: Temp Pulse Resp BP Pulse Ox 99.2 F 84 18 122/74 97 02/10/19 19:47 02/10/19 19:47 02/10/19 19:47 02/10/19 19:47 02/10/19 19:47 Discharge - Discharge Clinical Impression: Burping Condition: Stable Disposition: HOME, SELF-CARE Additional Instructions: Maintain adequate fluid and food intake Diet low in carbonation, no alcohol or caffeine Monitor for any worsening symptoms Make sure you are staying hydrated enough to urinate and have normal BM's Recheck with your PCM in 2-3 days Consider consult with Gastroenterology for ongoing/worsening symptoms Return to the ED with any worsening symptoms and/or development of fever, headache, chest pain, palpitations, syncope, shortness of breath, trouble breathing, abdominal pain, n/v/d, blood in stool/urine, weakness, or other worsening symptoms that are concerning to you. Prescriptions: Famotidine [Pepcid] 20 mg PO BID #20 tablet Referrals: GIANCARLO CHANCE MD [Primary Care Provider] - 02/13/19 SHAY AGUILAR MD [ACTIVE STAFF] - Follow up as needed
[2019-02-10 21:30] VITALS: BP 112/57
== END 2019-02-10 21:30 | disposition home or self-care (01) ==
LOC: ER 19:31
DX: R14.2 Eructation (principal); J45.909 Unspecified asthma, uncomplicated
CPT/HCPCS: 99283; J3490 ×2

== ENCOUNTER 2019-02-11 18:57 | Emergency (ER) | payer MEDICAID ==
[2019-02-11 19:05] VITALS: BP 127/74
[2019-02-11] MEDS ORDERED: PROMETHAZINE HCL 25 MG TABLET PO ONE (19:33)
--- NOTE | 2019-02-11 19:33 | ER Document Report ---
ED Medical Screen (RME) - General Chief Complaint: Diarrhea Stated Complaint: DIARREHA,HEADACHE Time Seen by Provider: 02/11/19 19:28 Primary Care Provider: GIANCARLO CHANCE MD [Primary Care Provider] - Follow up as needed Notes: 33-year-old male with schizophrenia and asthma presents to the emergency department chief complaint of diarrhea since today and intermittent headache since yesterday. Patient is homeless and is not currently staying in a assisted. Patient denies any fevers or chills, denies neck stiffness, complains of mild shortness of breath, denies chest pain, states that "my body feels weird" and after further interview says he has an upset stomach like he feels the need to throw up which is consistent with nausea, no abdominal pain, no urinary symptoms, no other complaints. TRAVEL OUTSIDE OF THE [place] IN LAST 30 DAYS: No COUNTRY TRAVELED TO/FROM: [facility] - Related Data Allergies/Adverse Reactions: No Known Allergies Allergy (Verified 02/11/19 18:58) Past Medical History - Social History Family history: Reviewed & Not Pertinent Pulmonary Medical History: Reports: Hx Asthma Renal/ Medical History: Denies: Hx Peritoneal Dialysis GI Medical History: Reports: Hx Irritable Bowel - constipation Musculoskeltal Medical History: Reports Hx Arthritis, Reports Hx Musculoskeletal Trauma Psychiatric Medical History: Reports: Hx Anxiety, Hx Bipolar Disorder, Hx Depression, Hx Personality Disorder, Hx Schizoaffective Disorder, Hx Schizophrenia Past Surgical History: Reports: Hx Abdominal Surgery, Hx Appendectomy, Hx Cholecystectomy. Denies: Hx Orthopedic Surgery - fractured finger - Immunizations Immunizations up to date: Yes Hx Diphtheria, Pertussis, Tetanus Vaccination: Yes - 2012 Physical Exam - Vital signs Vitals: Temp Pulse Resp BP Pulse Ox 97.9 F 72 18 127/74 H 99 02/11/19 19:01 02/11/19 19:01 02/11/19 19:01 02/11/19 19:01 02/11/19 19:01 - Notes Notes: PHYSICAL EXAMINATION: Reviewed vital signs and charting by RN GENERAL: Alert, interacts well. No acute distress. HEAD: Normocephalic, atraumatic. EYES: Pupils equal and round. Extraocular movements intact. ENT: Oral mucosa moist, tongue midline. NECK: Full range of motion. Trachea midline. LUNGS: Inspiratory and expiratory wheezing on the left side, right side clear to auscultation, no rales or rhonchi. No respiratory distress. HEART: Regular rate and rhythm. No murmur ABDOMEN: Limited abdominal exam in triage area EXTREMITIES: Moves all 4 extremities spontaneously. No edema, No cyanosis. SKIN: Warm, dry, normal turgor. No rashes or lesions noted. Course - Vital Signs Vital signs: Temp Pulse Resp BP Pulse Ox 97.9 F 72 18 127/74 H 99 02/11/19 19:01 02/11/19 19:01 02/11/19 19:01 02/11/19 19:01 02/11/19 19:01 Doctor's Discharge - Discharge Referrals: GIANCARLO CHANCE MD [Primary Care Provider] - Follow up as needed
[2019-02-11] MEDS ORDERED: NORMAL SALINE 1000 ML 1,000 ML IV ONE (19:34)
[2019-02-11] MEDS ORDERED: ACETAMINOPHEN 325 MG TABLET PO ONE (19:34)
[2019-02-11] MEDS ORDERED: IPRATROPIUM/ALBUTEROL 0.5-2.5 MG/3 ML AMPUL NEB ONE (19:39)
[2019-02-11 20:07] LABS: ABSOLUTE EOSINOPHILS # (AUTO) 0.3 10^3/uL (0.0-0.6); ABSOLUTE LYMPHOCYTES (AUTO) 0.9 10^3/uL (0.5-4.7); ABSOLUTE MONOCYTES (AUTO) 0.3 10^3/uL (0.1-1.4); ABSOLUTE NEUT (AUTO) 1.7 10^3/uL (1.7-8.2); BASOPHILS % (AUTO) 1.1 % (0-2); HEMATOCRIT 40.3 % (37.9-51.0); HEMOGLOBIN 13.4 g/dL (13.5-17.0); LYMPHOCYTES % (AUTO) 28.1 % (13-45); MEAN CORPUSCULAR HEMOGLOBIN 27.2 pg (27.0-33.4); MEAN CORPUSCULAR HGB CONC 33.2 g/dL (32.0-36.0); MEAN CORPUSCULAR VOLUME 82 fl (80-97); MONOCYTES % (AUTO) 8.4 % (3-13); PLATELET COUNT 204 10^3/uL (150-450); RED BLOOD COUNT 4.91 10^6/uL (4.35-5.55); RED CELL DISTRIBUTION WIDTH 13.6 % (11.5-14.0); SEGMENTED NEUTROPHILS % (AUTO) 53.4 % (42-78); TOTAL CELLS COUNTED % (AUTO) 100 %; WHITE BLOOD COUNT 3.1 10^3/uL (4.0-10.5)
[2019-02-11 20:22] LABS: ANION GAP 6 (5-19); BLOOD UREA NITROGEN 14 mg/dL (7-20); CALCIUM 8.9 mg/dL (8.4-10.2); CARBON DIOXIDE 31 mmol/L (22-30); CHLORIDE 105 mmol/L (98-107); GLUCOSE 111 mg/dL (75-110); POTASSIUM 4.3 mmol/L (3.6-5.0); SODIUM 141.8 mmol/L (137-145)
--- NOTE | 2019-02-11 22:35 | ER Document Report ---
ED General - General Chief Complaint: Diarrhea Stated Complaint: DIARREHA,HEADACHE Time Seen by Provider: 02/11/19 19:28 Primary Care Provider: GIANCARLO CHANCE MD [Primary Care Provider] - Follow up as needed Notes: Patient is a 33-year-old male with schizophrenia and asthma presents to the emergency department chief complaint of diarrhea since today and intermittent headache since yesterday. Headache described as a global, throbbing, intermittent, mild to moderate headache. Nothing improves or worsens the headache although he states it is gone after receiving medications in triage. Patient is homeless and is not currently staying in a skilled nursing. Patient denies any fevers or chills, denies neck stiffness, complains of mild shortness of breath, denies chest pain, states that "my body feels weird" and after further interview says he has an upset stomach like he feels the need to throw up which is consistent with nausea, no abdominal pain, no urinary symptoms, no other complaints. Patient is quite guarded on history taking. Denies any symptoms at the time of my assessment after receiving medications in triage. TRAVEL OUTSIDE OF THE [place] IN LAST 30 DAYS: No COUNTRY TRAVELED TO/FROM: [facility] - Related Data Allergies/Adverse Reactions: No Known Allergies Allergy (Verified 02/11/19 18:58) Past Medical History - General Information source: Patient - Social History Smoking Status: Never Smoker Frequency of alcohol use: None Drug Abuse: None Lives with: Homeless Family History: Reviewed & Not Pertinent Patient has suicidal ideation: No Patient has homicidal ideation: No Pulmonary Medical History: Reports: Hx Asthma Renal/ Medical History: Denies: Hx Peritoneal Dialysis GI Medical History: Reports: Hx Irritable Bowel - constipation Musculoskeletal Medical History: Reports Hx Arthritis, Reports Hx Musculoskeletal Trauma Psychiatric Medical History: Reports: Hx Anxiety, Hx Bipolar Disorder, Hx Depression, Hx Personality Disorder, Hx Schizoaffective Disorder, Hx Schizophrenia Past Surgical History: Reports: Hx Abdominal Surgery, Hx Appendectomy, Hx Cholecystectomy. Denies: Hx Orthopedic Surgery - fractured finger - Immunizations Immunizations up to date: Yes Hx Diphtheria, Pertussis, Tetanus Vaccination: Yes - 2012 Hx Pneumococcal Vaccination: 08/23/00 Review of Systems - Review of Systems Notes: Constitutional: Negative for fever. HENT: Negative for sore throat. Eyes: Negative for visual changes. Cardiovascular: Negative for chest pain. Respiratory: Negative for shortness of breath. Gastrointestinal: Negative for abdominal pain, positive diarrhea Genitourinary: Negative for dysuria. Musculoskeletal: Negative for back pain. Skin: Negative for rash. Neurological: Positive headache 10 point ROS negative except as marked above and in HPI. Physical Exam - Vital signs Vitals: Temp Pulse Resp BP Pulse Ox 97.9 F 72 18 127/74 H 99 02/11/19 19:01 02/11/19 19:01 02/11/19 19:01 02/11/19 19:01 02/11/19 19:01 Interpretation: Normal Notes: PHYSICAL EXAMINATION: GENERAL: Well-appearing, well-nourished and in no acute distress. HEAD: Atraumatic, normocephalic. EYES: Pupils equal round and reactive to light, extraocular movements intact, sclera anicteric, conjunctiva are normal. ENT: nares patent, oropharynx clear without exudates. Moist mucous membranes. NECK: Normal range of motion, supple without lymphadenopathy LUNGS: Breath sounds clear to auscultation bilaterally and equal. No wheezes rales or rhonchi. HEART: Regular rate and rhythm without murmurs ABDOMEN: Soft, nontender, normoactive bowel sounds. No guarding, no rebound. No masses appreciated. EXTREMITIES: Normal range of motion, no pitting or edema. No cyanosis. NEUROLOGICAL: Face symmetric. Tongue protrudes midline. Extraocular motions intact. Pupils are 2 mm and equally reactive. Normal speech, normal gait. 5 out of 5 strength in both the distal and proximal upper and lower extremities bilaterally. Sensation is grossly intact throughout. Finger to nose testing normal. Pronator drift normal. PSYCH: Normal mood, normal affect. SKIN: Warm, Dry, normal turgor, no rashes or lesions noted. Course - Re-evaluation Re-evalutation: 02/11/19 22:36 Presentation of a headache that appears to be most consistent with tension versus migrainous type headache. Headache was not maximal in onset, patient has no focal neurologic deficits, no nuchal rigidity, vital signs within normal limits, no papilledema, and patient is overall well in appearance. Based on clinical history and examination I do not suspect an acute subarachnoid hemorrhage, dural venous sinus thrombosis, acute meningitis, or intercranial mass. Given my low clinical suspicion for any acute life-threatening etiology, I do not feel advanced neuro imaging is indicated at this time. The patient has no focal abdominal tenderness on exam. He has diarrhea without vomiting. Labs broadly unremarkable. Do not suspect an intra-abdominal surgical pathology. At this time will discharge with return precautions and follow-up recommendations. Verbal discharge instructions given a the bedside and opportunity for questions given. Medication warnings reviewed. Patient is in agreement with this plan and has verbalized understanding of return precautions and the need for primary care follow-up in the next 24-72 hours. - Vital Signs Vital signs: Temp Pulse Resp BP Pulse Ox 97.9 F 72 18 127/74 H 99 02/11/19 19:01 02/11/19 19:01 02/11/19 19:01 02/11/19 19:01 02/11/19 19:01 - Laboratory Result Diagrams: 02/11/19 20:00 02/11/19 20:00 Laboratory results interpreted by me: 02/11/19 02/11/19 20:00 20:00 WBC 3.1 L Hgb 13.4 L Eosinophils % 9.0 H Carbon Dioxide 31 H Glucose 111 H Discharge - Discharge Clinical Impression: Headache Qualifiers: Headache type: unspecified Headache chronicity pattern: acute headache Intractability: not intractable Qualified Code(s): R51 - Headache Diarrhea Qualifiers: Diarrhea type: unspecified type Qualified Code(s): R19.7 - Diarrhea, unspecified Condition: Good Disposition: HOME, SELF-CARE Additional Instructions: You have been seen in the Emergency Department (ED) for a headache. Please use Tylenol (acetaminophen) or Motrin (ibuprofen) as needed for symptoms, but only as written on the box. As we have discussed, please follow up with your primary care doctor as soon as possible regarding today's ED visit and your headache symptoms. Call your doctor or return to the ED if you have a worsening headache, sudden and severe headache, confusion, slurred speech, facial droop, weakness or numbness in any arm or leg, extreme fatigue, or other symptoms that concern you. You can take [id number] loperamide also known as Imodium as needed for diarrhea per box instructions. Continue to stay hydrated with plenty of solution such as Gatorade or Pedialyte. Please return if you develop severe abdominal pain, pass out, become unable to tolerate any oral fluids for 12 more hours, or any other symptoms that are concerning to you. Referrals: GIANCARLO CHANCE MD [Primary Care Provider] - Follow up as needed
== END 2019-02-12 00:03 | disposition home or self-care (01) ==
LOC: ER 18:57
DX: R19.7 Diarrhea, unspecified (principal); R51 Headache; R19.8 Other specified symptoms and signs involving the digestive system and abdomen; J45.909 Unspecified asthma, uncomplicated; Z59.0 Homelessness
CPT/HCPCS: 94640; 99284; 96360; 36415; 85025; 80048; J3490 ×2; J7030; J7620

== ENCOUNTER 2019-02-13 19:44 | Emergency (ER) | payer MEDICAID ==
--- NOTE | 2019-02-13 20:45 | ER Document Report ---
HPI - HPI Patient complains to provider of: wet cast Time Seen by Provider: 02/13/19 20:40 Onset: This evening Onset/Duration: Sudden Pain Level: 2 Context: Patient states that he got his cast wet today. Patient states he called the office and was advised to come to the emergency department for cast removal. Patient states that he will call his orthopedic doctor's office back to reschedule appointment to have the cast replaced. Patient denies any new injury. Associated Symptoms: Other - Wet cast Exacerbated by: Denies Relieved by: Denies Similar symptoms previously: No Recently seen / treated by doctor: Yes - ROS ROS below otherwise negative: Yes Systems Reviewed and Negative: Yes All other systems reviewed and negative - NEURO Neurology: DENIES: Weakness - MUSCULOSKELETAL Musculoskeletal: REPORTS: Extremity pain - DERM Skin Color: Normal Skin Problems: None Past Medical History - General Information source: Patient - Social History Smoking Status: Never Smoker Frequency of alcohol use: None Drug Abuse: None Lives with: Homeless Family History: Reviewed & Not Pertinent Pulmonary Medical History: Reports: Hx Asthma Renal/ Medical History: Denies: Hx Peritoneal Dialysis GI Medical History: Reports: Hx Irritable Bowel - constipation Musculoskeletal Medical History: Reports Hx Arthritis, Reports Hx Musculoskeletal Trauma Psychiatric Medical History: Reports: Hx Anxiety, Hx Bipolar Disorder, Hx Depression, Hx Personality Disorder, Hx Schizoaffective Disorder, Hx Schizophrenia Past Surgical History: Reports: Hx Abdominal Surgery, Hx Appendectomy, Hx Cholecystectomy. Denies: Hx Orthopedic Surgery - fractured finger - Immunizations Immunizations up to date: Yes Hx Diphtheria, Pertussis, Tetanus Vaccination: Yes - 2012 Hx Pneumococcal Vaccination: 08/23/00 Vertical Provider Document - CONSTITUTIONAL Agree With Documented VS: Yes Exam Limitations: No Limitations General Appearance: No Apparent Distress, Severe Distress - INFECTION CONTROL TRAVEL OUTSIDE OF THE [place] IN LAST 30 DAYS: No - HEENT HEENT: Atraumatic, Normocephalic - NECK Neck: Normal Inspection - RESPIRATORY Respiratory: Breath Sounds Normal, No Respiratory Distress - CARDIOVASCULAR Cardiovascular: Regular Rate, Regular Rhythm Pulses: Normal: Radial - BACK Back: Normal Inspection - MUSCULOSKELETAL/EXTREMETIES Musculoskeletal/Extremeties: MAEW, Tender - Mild tenderness over left elbow, No Edema. negative: Eccymosis - NEURO Level of Consciousness: Awake, Alert, Appropriate Motor/Sensory: No Motor Deficit - DERM Integumentary: Warm, Dry, No Rash Course - Re-evaluation Re-evalutation: 02/13/19 20:46 Patient with wet cast in place. Patient states he called orthopedics office and was advised to come here for cast removal. - Vital Signs Vital signs: Temp Pulse Resp BP Pulse Ox 98.5 F 59 L 16 128/76 H 99 02/13/19 20:30 02/13/19 20:30 02/13/19 20:30 02/13/19 20:30 02/13/19 20:30 - Diagnostic Test Radiology reviewed: Reports reviewed - From previous ER visit Procedures - Immobilization Left Arm Pre-Proc Neuro Vasc Exam: Normal Immobilizer type: Sugar tong - double Performed by: PCT Post-Proc Neuro Vasc Exam: Normal Alignment checked and good: Yes Discharge - Discharge Clinical Impression: Cast removal Condition: Stable Disposition: HOME, SELF-CARE Instructions: Fracture ([facility]), Splint Precautions ([facility]) Additional Instructions: Return immediately for any new or worsening symptoms Followup with your primary care provider, call tomorrow to make a followup appointment Follow-up with your orthopedic surgeon, call tomorrow for an appointment Referrals: GIANCARLO CHANCE MD [Primary Care Provider] - Follow up as needed [facility] [Provider Group] - Follow up tomorrow
[2019-02-13 21:32] VITALS: BP 120/63
== END 2019-02-13 21:32 | disposition home or self-care (01) ==
LOC: ER 19:44
DX: Z47.89 Encounter for other orthopedic aftercare (principal)
CPT/HCPCS: 99282

== ENCOUNTER 2019-02-14 21:47 | Emergency (ER) | payer MEDICAID ==
[2019-02-14 21:58] VITALS: BP 119/78
[2019-02-14] MEDS ORDERED: DIPH/PERTUSS(ACELL)/TETANUS VAC/PF 0.5 ML SYR (>=10YO) IM ONE (23:15)
--- NOTE | 2019-02-14 23:19 | ER Document Report ---
HPI - HPI Patient complains to provider of: abrasion Time Seen by Provider: 02/14/19 23:15 Pain Level: Denies Context: Patient is a 33-year-old male presents to the emergency department for abrasion noted to his right calf. Patient states "it was a piece of metal," when asked what happened. Patient states he called poison control and they told him to come to the emergency room for a tetanus shot. Patient states he is unsure of when his last tetanus immunization was. Patient's denying any other complaints at this time. - REPRODUCTIVE Reproductive: DENIES: : Past Medical History - General Information source: Patient - Social History Smoking Status: Unknown if Ever Smoked Family History: Reviewed & Not Pertinent Pulmonary Medical History: Reports: Hx Asthma Renal/ Medical History: Denies: Hx Peritoneal Dialysis GI Medical History: Reports: Hx Irritable Bowel - constipation Musculoskeletal Medical History: Reports Hx Arthritis, Reports Hx Musculoskele giovanna Trauma Psychiatric Medical History: Reports: Hx Anxiety, Hx Bipolar Disorder, Hx Depression, Hx Personality Disorder, Hx Schizoaffective Disorder, Hx Schizophrenia Past Surgical History: Reports: Hx Abdominal Surgery, Hx Appendectomy, Hx Cholecystectomy. Denies: Hx Orthopedic Surgery - fractured finger - Immunizations Immunizations up to date: Yes Hx Diphtheria, Pertussis, Tetanus Vaccination: Yes - 2012 Hx Pneumococcal Vaccination: 08/23/00 Vertical Provider Document - CONSTITUTIONAL Agree With Documented VS: Yes Notes: GENERAL: Alert, interacts well. No acute distress. HEAD: Normocephalic, atraumatic. EYES: Pupils equal, round, and reactive to light. Extraocular movements intact. ENT: Oral mucosa moist, tongue midline. NECK: Full range of motion. Supple. Trachea midline. LUNGS: Clear to auscultation bilateral apices, slight end expiratory wheeze heard right base, left base clear. No respiratory distress. HEART: Regular rate and rhythm. No murmur ABDOMEN: Soft, non-tender. Non-distended. Bowel sounds present in all 4 quadrants. EXTREMITIES: Moves all 4 extremities spontaneously. No edema, normal radial and dorsalis pedis pulses bilaterally. No cyanosis. BACK: no cervical, thoracic, lumbar midline tenderness. No saddle anesthesia, normal distal neurovascular exam. NEUROLOGICAL: Alert and oriented x3. Normal speech. cranial nerves II through XII grossly intact. PSYCH: Normal affect, normal mood. SKIN: Warm, dry, normal turgor. Very superficial abrasion noted right lateral calf measuring 1 cm x 1 cm. - INFECTION CONTROL TRAVEL OUTSIDE OF THE [place] IN LAST 30 DAYS: No COUNTRY TRAVELED TO/FROM: [facility] Course - Re-evaluation Re-evalutation: 02/14/19 23:17 Patient was given a tetanus immunization in the emergency department. Discussed close follow-up with primary care provider. Patient stable for discharge. - Vital Signs Vital signs: Temp Pulse Resp BP Pulse Ox 98.6 F 88 18 119/78 96 02/14/19 21:56 02/14/19 21:56 02/14/19 21:56 02/14/19 21:56 02/14/19 21:56 Discharge - Discharge Clinical Impression: Unknown tetanus toxoid immunization status, Abrasion Condition: Stable Disposition: HOME, SELF-CARE Instructions: Tetanus Immunization Given ([facility]), Antibiotic Ointment Protection ([facility]), Abrasions ([facility]) Additional Instructions: As we discussed you have been seen and treated in the emergency department for an abrasion on your right calf. Your tetanus immunization has been updated. Please make sure you keep this abrasion clean and dry. Please follow-up with your primary care provider in the next 24 to 48 hours. Please return to the emergency room for any concerns. Referrals: GIANCARLO CHANCE MD [Primary Care Provider] - Follow up as needed
== END 2019-02-14 23:42 | disposition home or self-care (01) ==
LOC: ER 21:47
DX: S80.811A Abrasion, right lower leg, initial encounter (principal); X58.XXXA Exposure to other specified factors, initial encounter; J45.909 Unspecified asthma, uncomplicated; Z23 Encounter for immunization
CPT/HCPCS: 90471; 90715; 99282

== ENCOUNTER 2019-02-15 16:47 | Emergency (ER) | payer MEDICAID ==
[2019-02-15] MEDS ORDERED: ALBUTEROL SULFATE HFA (90 MCG/PUFF) 8 GM MDI (1 MDI/ER DISP) IH ONE (20:40)
--- NOTE | 2019-02-15 20:41 | ER Document Report ---
ED General - General Chief Complaint: Difficulty Swallowing Stated Complaint: BREATHING PROBLEMS Time Seen by Provider: 02/15/19 20:25 Primary Care Provider: GIANCARLO CHANCE MD [Primary Care Provider] - Follow up in 3-5 days Notes: Patient is a 33 year old male with asthma that presents to the emergency department for chief complaint of med refill. Patient states that he went to his primary care office today to get a med refill for his albuterol, but he is no longer in the office, they advised him to come to the emergency department to get his albuterol. He states that he is very sensitive asthma, even to secondhand smoke, and since he ran out of his albuterol he was concerned that he may have a flareup. He denies having any wheezing, cough or shortness of breath at this time, denies any chest pain, fevers, chills, night sweats or other illnesses recently. Past Medical History: Asthma Past Surgical History: Cholecystectomy Social History: Denies tobacco, alcohol or drug use. Family History: Reviewed and noncontributory for presenting illness Allergies: Reviewed, see documented allergy list. REVIEW OF SYSTEMS: Other than noted above, the 12 point review of systems was reviewed with the patient and were negative, all pertinent findings are included in the HPI. PHYSICAL EXAMINATION: Vital signs reviewed, nursing noted reviewed. GENERAL: Well-appearing, well-nourished and in no acute distress. HEAD: Atraumatic, normocephalic. EYES: Eyes appear normal, extraocular movements intact, sclera anicteric, conjunctiva are normal. ENT: nares patent, oropharynx clear without exudates. Moist mucous membranes. NECK: Normal range of motion, supple without lymphadenopathy LUNGS: Breath sounds clear to auscultation bilaterally and equal. No wheezes rales or rhonchi. HEART: Regular rate and rhythm without murmurs ABDOMEN: Soft, nontender, normoactive bowel sounds. No rebound, guarding, or rigidity. No masses appreciated. EXTREMITIES: Nontender, good range of motion, no pitting or edema. NEUROLOGICAL: No focal neurological deficits. Moves all extremities spontaneously Motor and sensory grossly intact on exam. PSYCH: Normal mood, normal affect. SKIN: Warm, Dry, normal turgor, no rashes or lesions noted on exposed skin TRAVEL OUTSIDE OF THE [place] IN LAST 30 DAYS: No COUNTRY TRAVELED TO/FROM: [facility] - Related Data Allergies/Adverse Reactions: No Known Allergies Allergy (Verified 02/15/19 16:49) Past Medical History - Social History Smoking Status: Never Smoker Family History: Reviewed & Not Pertinent Pulmonary Medical History: Reports: Hx Asthma Renal/ Medical History: Denies: Hx Peritoneal Dialysis GI Medical History: Reports: Hx Irritable Bowel - constipation Musculoskeletal Medical History: Reports Hx Arthritis, Reports Hx Musculoskeletal Trauma Psychiatric Medical History: Reports: Hx Anxiety, Hx Bipolar Disorder, Hx Depression, Hx Personality Disorder, Hx Schizoaffective Disorder, Hx Schizophrenia Past Surgical History: Reports: Hx Abdominal Surgery, Hx Appendectomy, Hx Cholecystectomy. Denies: Hx Orthopedic Surgery - fractured finger - Immunizations Immunizations up to date: Yes Hx Diphtheria, Pertussis, Tetanus Vaccination: Yes - 2012 Hx Pneumococcal Vaccination: 08/23/00 Physical Exam - Vital signs Vitals: Temp Pulse BP Pulse Ox 98.2 F 85 125/74 96 02/15/19 17:34 02/15/19 17:34 02/15/19 17:34 02/15/19 17:34 Course - Re-evaluation Re-evalutation: Patient seen and examined vital signs reviewed. Patient was evaluated and treated as appropriate for the patient's presenting symptoms and complaint, with consideration of any critical or life threatening conditions that may be associated with their obtained history and exam as noted above. Patient was treated with albuterol inhaler dispense, he appeared well on exam, no wheezing, no respiratory distress, patient advised to follow-up with his primary care otherwise. Plan of care was discussed with the patient at this point, after careful consideration I feel that that patient can be discharged from the emergency department, the patient was educated treatments and reasons to return to the emergency department based on their presumed diagnosis as noted above, they were advised to followup with a primary care physician in 2-3 days. Patient was agreeable to plan of care. *Note is created using voice recognition software and may contain spelling, syntax or grammatical errors. - Vital Signs Vital signs: Temp Pulse Resp BP Pulse Ox 98.4 F 69 16 142/78 H 96 02/15/19 20:53 02/15/19 20:53 02/15/19 20:53 02/15/19 20:53 02/15/19 17:34 Discharge - Discharge Clinical Impression: Asthma Qualifiers: Asthma severity: unspecified severity Asthma persistence: unspecified Asthma complication type: unspecified Qualified Code(s): J45.909 - Unspecified asthma, uncomplicated Condition: Stable Disposition: HOME, SELF-CARE Instructions: Asthma ([facility]) Referrals: GIANCARLO CHANCE MD [Primary Care Provider] - Follow up in 3-5 days
[2019-02-15 20:54] VITALS: BP 142/78
== END 2019-02-15 20:53 | disposition home or self-care (01) ==
LOC: ER 16:47
DX: Z76.0 Encounter for issue of repeat prescription (principal); J45.909 Unspecified asthma, uncomplicated; Z90.49 Acquired absence of other specified parts of digestive tract; F41.9 Anxiety disorder, unspecified; F31.9 Bipolar disorder, unspecified
CPT/HCPCS: 99281; J3490

== ENCOUNTER 2019-02-17 06:08 | Emergency (ER) | payer MEDICAID ==
[2019-02-17] MEDS ORDERED: IPRATROPIUM/ALBUTEROL 0.5-2.5 MG/3 ML AMPUL NEB ONE ×2 (07:56→09:06)
--- NOTE | 2019-02-17 09:19 | ER Document Report ---
HPI - HPI Time Seen by Provider: 02/17/19 09:06 Pain Level: 2 Notes: Patient is a 33-year-old male with past medical history of asthma presented to the emergency department chief complaint of wheezing and productive cough with green sputum. Patient denies any fevers or difficulty breathing. Patient reports he otherwise feels well. - CONSTITUTIONAL Constitutional: DENIES: Fever, Chills - EENT EENT: DENIES: Sore Throat, Ear Pain, Eye problems - CARDIOVASCULAR Cardiovascular: DENIES: Chest pain - RESPIRATORY Respiratory: REPORTS: Trouble Breathing, Coughing - GASTROINTESTINAL Gastrointestinal: DENIES: Abdominal Pain, Black / Bloody Stools - REPRODUCTIVE Reproductive: DENIES: : Past Medical History - General Information source: Patient - Social History Smoking Status: Never Smoker Chew tobacco use (# tins/day): No Frequency of alcohol use: None Drug Abuse: None Family History: Reviewed & Not Pertinent Patient has suicidal ideation: No Patient has homicidal ideation: No Pulmonary Medical History: Reports: Hx Asthma Renal/ Medical History: Denies: Hx Peritoneal Dialysis GI Medical History: Reports: Hx Irritable Bowel - constipation Musculoskeletal Medical History: Reports Hx Arthritis, Reports Hx Musculoskeletal Trauma Psychiatric Medical History: Reports: Hx Anxiety, Hx Bipolar Disorder, Hx Depression, Hx Personality Disorder, Hx Schizoaffective Disorder, Hx Schizophrenia Past Surgical History: Reports: Hx Abdominal Surgery, Hx Appendectomy, Hx Cholecystectomy. Denies: Hx Orthopedic Surgery - fractured finger - Immunizations Immunizations up to date: Yes Hx Diphtheria, Pertussis, Tetanus Vaccination: Yes - 2012 Hx Pneumococcal Vaccination: 08/23/00 Vertical Provider Document - CONSTITUTIONAL Notes: PHYSICAL EXAMINATION: GENERAL: Well-appearing, well-nourished and in no acute distress. HEAD: Atraumatic, normocephalic. EYES: Pupils equal round extraocular movements intact, conjunctiva are normal. ENT: Nares patent NECK: Normal range of motion LUNGS: No respiratory distress, faint expiratory wheezes noted bilaterally. No increased work of breathing noted. Musculoskeletal: Normal range of motion NEUROLOGICAL: Normal speech, normal gait. PSYCH: Normal mood, normal affect. SKIN: Warm, Dry, normal turgor, no rashes or lesions noted. - INFECTION CONTROL TRAVEL OUTSIDE OF THE [place] IN LAST 30 DAYS: No COUNTRY TRAVELED TO/FROM: [facility] Course - Re-evaluation Re-evalutation: Patient was given 1 DuoNeb treatment here in the emergency department which cleared his wheezing. Other than that patient appears well, nontoxic and vital signs are within normal limits. Patient's repeat pulse ox is 98%. Patient cleared for discharge home. - Vital Signs Vital signs: Temp Pulse Resp BP Pulse Ox 98.1 F 70 20 118/73 91 L 02/17/19 06:15 02/17/19 06:15 02/17/19 06:15 02/17/19 06:15 02/17/19 06:15 Discharge - Discharge Clinical Impression: Viral URI Condition: Stable Disposition: HOME, SELF-CARE Additional Instructions: Your symptoms are most likely due to a viral infection it should resolve over the next 7-14 days. You should take [id number] guanfacine per bottle instructions to help thin the mucus. For nasal congestion: I would recommend that you get [id number] oxymetazoline also known is afrin. Use only per bottle instructions and be sure to never use this for more than 3 days if you can develop severe rebound congestion. You may also use tylenol or ibuprofen as needed for aches and throat discomfort. Please be sure to drink plenty of fluids and get rest. Return to the emergency department he began having difficulty breathing, chest pain, persistent vomiting, or any other symptoms that are concerning to you. Referrals: GIANCARLO CHANCE MD [Primary Care Provider] - Follow up as needed
[2019-02-17 09:21] VITALS: BP 113/70
== END 2019-02-17 09:45 | disposition home or self-care (01) ==
LOC: ER 06:08
DX: J06.9 Acute upper respiratory infection, unspecified (principal); R06.2 Wheezing; Z90.49 Acquired absence of other specified parts of digestive tract
CPT/HCPCS: 94640; 99283; J7620

== ENCOUNTER 2019-02-19 03:43 | Emergency (ER) | payer MEDICAID ==
[2019-02-19] MEDS ORDERED: IPRATROPIUM/ALBUTEROL 0.5-2.5 MG/3 ML AMPUL NEB ONE (03:58)
[2019-02-19] MEDS ORDERED: PREDNISONE 20 MG TABLET PO ONE (03:58)
[2019-02-19] MEDS: ALBUTEROL SULFATE 0.083% NEB 2.5 MG/3 ML AMPUL NEB SCH ×2 (04:30→04:37)
--- NOTE | 2019-02-19 04:52 | RADIOLOGY REPORT (SQ) ---
Chest single view on 02/19/2019 at 4:29 AM CLINICAL INDICATION: Shortness of breath COMPARISON: 01/29/2019 FINDINGS: The lungs are clear. Cardiac, hilar and mediastinal contours are within normal limits. Pulmonary vascularity is within normal limits. No bony abnormality is noted. IMPRESSION: No active disease.
[2019-02-19] MEDS ORDERED: ALBUTEROL SULFATE HFA (90 MCG/PUFF) 8 GM MDI (1 MDI/ER DISP) IH ONE (05:47)
--- NOTE | 2019-02-19 05:49 | ER Document Report ---
ED General - General Chief Complaint: Cough Stated Complaint: COUGH Time Seen by Provider: 02/19/19 04:26 Primary Care Provider: GIANCARLO CHANCE MD [Primary Care Provider] - Follow up in 3-5 days Notes: Patient is a 33-year-old male with schizophrenia and asthma that presents to the emergency department for chief complaint of wheezing and shortness of breath. Patient states that his asthma has been feeling heavy on him, and he is been running out of his albuterol, is been more congested, and having phlegm when he is coughing, and had a runny nose as well over the past several days. He denies having any chest pain, fevers, chills, night sweats, nausea, vomiting or abdominal pain. Denies any dysuria hematuria. Denies having any pain at this time. He does report having pain with his eye earlier in the day yesterday, but that has since gone away he was associating that to his sinus congestion which is been improving. Past Medical History: Asthma, schizophrenia Past Surgical History: Appendectomy, cholecystectomy Social History: Admits to smoking cigarettes, denies alcohol or drug use. Family History: Reviewed and noncontributory for presenting illness Allergies: Reviewed, see documented allergy list. REVIEW OF SYSTEMS: Other than noted above, the 12 point review of systems was reviewed with the patient and were negative, all pertinent findings are included in the HPI. PHYSICAL EXAMINATION: Vital signs reviewed, nursing noted reviewed. GENERAL: Well-appearing, well-nourished and in no acute distress. HEAD: Atraumatic, normocephalic. EYES: Eyes appear normal, extraocular movements intact, sclera anicteric, conjunctiva are normal. ENT: nares patent, oropharynx clear without exudates. Moist mucous membranes. NECK: Normal range of motion, supple without lymphadenopathy LUNGS: Mild expiratory wheezing noted throughout all lung garcia, no acute respiratory distress. HEART: Regular rate and rhythm without murmurs ABDOMEN: Soft, nontender, normoactive bowel sounds. No rebound, guarding, or rigidity. No masses appreciated. EXTREMITIES: Patient has a fiberglass cast in his left upper extremity, from prior injury, neurovascular intact distally in all extremities. Extremities overall are nontender, with good range of motion. NEUROLOGICAL: No focal neurological deficits. Moves all extremities spontaneously Motor and sensory grossly intact on exam. PSYCH: Normal mood, normal affect. SKIN: Warm, Dry, normal turgor, no rashes or lesions noted on exposed skin TRAVEL OUTSIDE OF THE [place] IN LAST 30 DAYS: No COUNTRY TRAVELED TO/FROM: [facility] - Related Data Allergies/Adverse Reactions: No Known Allergies Allergy (Verified 02/19/19 03:54) Past Medical History - Social History Smoking Status: Current Every Day Smoker Family History: Reviewed & Not Pertinent Pulmonary Medical History: Reports: Hx Asthma Renal/ Medical History: Denies: Hx Peritoneal Dialysis GI Medical History: Reports: Hx Irritable Bowel - constipation Musculoskeletal Medical History: Reports Hx Arthritis, Reports Hx Musculoskeletal Trauma Psychiatric Medical History: Reports: Hx Anxiety, Hx Bipolar Disorder, Hx Depression, Hx Personality Disorder, Hx Schizoaffective Disorder, Hx Schizophrenia Past Surgical History: Reports: Hx Abdominal Surgery, Hx Appendectomy, Hx Cholecystectomy. Denies: Hx Orthopedic Surgery - fractured finger - Immunizations Immunizations up to date: Yes Hx Diphtheria, Pertussis, Tetanus Vaccination: Yes - 2012 Hx Pneumococcal Vaccination: 08/23/00 Physical Exam - Vital signs Vitals: Temp Pulse Resp BP Pulse Ox 98.2 F 80 22 H 132/77 H 93 02/19/19 03:53 02/19/19 03:53 02/19/19 03:53 02/19/19 03:53 02/19/19 03:53 Course - Re-evaluation Re-evalutation: Patient seen and examined vital signs reviewed. Laboratory data and/or imaging were ordered as appropriate for the patient's presenting symptoms and complaint, with consideration of any critical or life threatening conditions that may be associated with their obtained history and exam as noted above. Patient was treated with prednisone and DuoNeb breathing treatment Results were reviewed when available and demonstrated negative chest x-ray The patient was re-evaluated and was improved, stable, wheezing had completely resolved Evaluation was most consistent with mild asthma exacerbation, will dispense albuterol inhaler, and given prescription for prednisone for 4 days. Results were discussed with the patient at this point, after careful consideration I feel that that patient can be discharged from the emergency department, the patient was educated treatments and reasons to return to the emergency department based on their presumed diagnosis as noted above, they were advised to followup with a primary care physician in 2-3 days. Patient was agreeable to plan of care. *Note is created using voice recognition software and may contain spelling, syntax or grammatical errors. Chest X-Ray 02/19/19 03:58 IMPRESSION: No active disease. - Vital Signs Vital signs: Temp Pulse Resp BP Pulse Ox 98.2 F 82 20 132/77 H 100 02/19/19 03:53 02/19/19 05:00 02/19/19 05:00 02/19/19 03:53 02/19/19 05:00 Discharge - Discharge Clinical Impression: Asthma exacerbation Qualifiers: Asthma severity: unspecified severity Asthma persistence: unspecified Qualified Code(s): J45.901 - Unspecified asthma with (acute) exacerbation Condition: Stable Disposition: HOME, SELF-CARE Instructions: Asthma ([facility]) Prescriptions: Prednisone [Deltasone 10 mg Tablet] 40 mg PO DAILY #16 tablet Referrals: GIANCARLO CHANCE MD [Primary Care Provider] - Follow up in 3-5 days
[2019-02-19 06:31] VITALS: BP 123/65
== END 2019-02-19 06:10 | disposition home or self-care (01) ==
LOC: ER 03:43
DX: J45.901 Unspecified asthma with (acute) exacerbation (principal); R06.02 Shortness of breath; R09.89 Other specified symptoms and signs involving the circulatory and respiratory systems; F17.210 Nicotine dependence, cigarettes, uncomplicated
CPT/HCPCS: 94640 ×2; 99284; 71045; J7512; J3490; J7620

== ENCOUNTER 2019-02-21 01:34 | Emergency (ER) | payer MEDICAID ==
[2019-02-21] MEDS ORDERED: IPRATROPIUM/ALBUTEROL 0.5-2.5 MG/3 ML AMPUL NEB ONE ×2 (01:51→02:40)
--- NOTE | 2019-02-21 02:04 | ER Document Report ---
ED Medical Screen (RME) - General Chief Complaint: Asthma Exacerbation Stated Complaint: DIFFICULTY BREATHING Time Seen by Provider: 02/21/19 01:51 Primary Care Provider: GIANCARLO CHANCE MD [Primary Care Provider] - Follow up as needed Notes: Is a 33-year-old male with a history of asthma who presents to the emergency department with shortness of breath. Patient states that earlier tonight he was surrounded by secondhand cigarette smoke, which she reports is a severe irritant for his asthma, when he developed shortness of breath and wheezing. Patient states he did attempt to use his albuterol inhaler twice with minimal relief. Patient states that at times his albuterol inhaler will help and sometimes he has to come to the emergency department. Patient states he has had a productive cough with green mucus. Patient denies fever. TRAVEL OUTSIDE OF THE [place] IN LAST 30 DAYS: No COUNTRY TRAVELED TO/FROM: [facility] - Related Data Allergies/Adverse Reactions: No Known Allergies Allergy (Verified 02/19/19 03:54) Past Medical History - Social History Chew tobacco use (# tins/day): No Frequency of alcohol use: None Drug Abuse: None Family history: Reviewed & Not Pertinent Pulmonary Medical History: Reports: Hx Asthma Renal/ Medical History: Denies: Hx Peritoneal Dialysis GI Medical History: Reports: Hx Irritable Bowel - constipation Musculoskeltal Medical History: Reports Hx Arthritis, Reports Hx Musculoskeletal Trauma Psychiatric Medical History: Reports: Hx Anxiety, Hx Bipolar Disorder, Hx Depression, Hx Personality Disorder, Hx Schizoaffective Disorder, Hx Schizophrenia Past Surgical History: Reports: Hx Abdominal Surgery, Hx Appendectomy, Hx Cholecystectomy. Denies: Hx Orthopedic Surgery - fractured finger - Immunizations Immunizations up to date: Yes Hx Diphtheria, Pertussis, Tetanus Vaccination: Yes - 2012 Physical Exam - Vital signs Vitals: Temp Pulse Resp BP Pulse Ox 98.7 F 94 28 H 121/60 94 02/21/19 01:38 02/21/19 01:38 02/21/19 01:38 02/21/19 01:38 02/21/19 01:38 - Respiratory Respiratory status: No respiratory distress Chest status: Nontender Breath sounds: Decreased air movement, Productive cough, Wheezing Chest palpation: Normal Course - Re-evaluation Re-evalutation: 02/21/19 02:04 I have greeted and performed a rapid initial assessment of this patient. A comprehensive ED assessment and evaluation of the patient, analysis of test results and completion of the medical decision making process will be conducted by additional ED providers. - Vital Signs Vital signs: Temp Pulse Resp BP Pulse Ox 98.7 F 94 28 H 121/60 94 02/21/19 01:38 02/21/19 01:38 02/21/19 01:38 02/21/19 01:38 02/21/19 01:38 Doctor's Discharge - Discharge Referrals: GIANCARLO CHANCE MD [Primary Care Provider] - Follow up as needed
[2019-02-21] MEDS ORDERED: DEXAMETHASONE 4 MG TABLET PO ONE (02:40)
--- NOTE | 2019-02-21 03:53 | ER Document Report ---
ED General - General Chief Complaint: Asthma Exacerbation Stated Complaint: DIFFICULTY BREATHING Time Seen by Provider: 02/21/19 01:51 Primary Care Provider: GIANCARLO CHANCE MD [Primary Care Provider] - Follow up as needed Notes: Patient is a 33-year-old male with a history of asthma, homelessness, presents complaining of several hours of shortness of breath and wheezing. Symptoms started gradually, has worsened over the course of the past several hours. No exacerbating or alleviating factors. States this feels very similar to similar asthma exacerbations he has had in the past. Denies cough or sputum production. No fever or constitutional symptoms. Has not seen his primary care physician regarding today's concerns. Frequently in the emergency department for similar symptoms. TRAVEL OUTSIDE OF THE [place] IN LAST 30 DAYS: No COUNTRY TRAVELED TO/FROM: [facility] - Related Data Allergies/Adverse Reactions: No Known Allergies Allergy (Verified 02/19/19 03:54) Past Medical History - General Information source: Patient - Social History Smoking Status: Never Smoker Chew tobacco use (# tins/day): No Frequency of alcohol use: None Drug Abuse: None Lives with: Homeless Family History: Reviewed & Not Pertinent Patient has suicidal ideation: No Patient has homicidal ideation: No Pulmonary Medical History: Reports: Hx Asthma Renal/ Medical History: Denies: Hx Peritoneal Dialysis GI Medical History: Reports: Hx Irritable Bowel - constipation Musculoskeletal Medical History: Reports Hx Arthritis, Reports Hx Musculoskeletal Trauma Psychiatric Medical History: Reports: Hx Anxiety, Hx Bipolar Disorder, Hx Depression, Hx Personality Disorder, Hx Schizoaffective Disorder, Hx Schizophrenia Past Surgical History: Reports: Hx Abdominal Surgery, Hx Appendectomy, Hx Cholecystectomy. Denies: Hx Orthopedic Surgery - fractured finger - Immunizations Immunizations up to date: Yes Hx Diphtheria, Pertussis, Tetanus Vaccination: Yes - 2012 Hx Pneumococcal Vaccination: 08/23/00 Review of Systems - Review of Systems Notes: Constitutional: Negative for fever. HENT: Negative for sore throat. Eyes: Negative for visual changes. Cardiovascular: Negative for chest pain. Respiratory: Positive for shortness of breath. Gastrointestinal: Negative for abdominal pain, vomiting or diarrhea. Genitourinary: Negative for dysuria. Musculoskeletal: Negative for back pain. Skin: Negative for rash. Neurological: Negative for headaches, weakness or numbness. 10 point ROS negative except as marked above and in HPI. Physical Exam - Vital signs Vitals: Temp Pulse Resp BP Pulse Ox 98.7 F 94 28 H 121/60 94 02/21/19 01:38 02/21/19 01:38 02/21/19 01:38 02/21/19 01:38 02/21/19 01:38 Interpretation: Tachypneic Notes: PHYSICAL EXAMINATION: GENERAL: Well-appearing, well-nourished and in no acute distress. HEAD: Atraumatic, normocephalic. EYES: Pupils equal round and reactive to light, extraocular movements intact, sclera anicteric, conjunctiva are normal. ENT: nares patent, oropharynx clear without exudates. Moist mucous membranes. NECK: Normal range of motion, supple without lymphadenopathy LUNGS: Breath sounds clear to auscultation bilaterally and equal. Scant respiratory wheezing in all lung garcia. HEART: Regular rate and rhythm without murmurs ABDOMEN: Soft, nontender, normoactive bowel sounds. No guarding, no rebound. No masses appreciated. EXTREMITIES: Normal range of motion, no pitting or edema. No cyanosis. NEUROLOGICAL: No focal neurological deficits. Moves all extremities spontaneously and on command. PSYCH: Normal mood, normal affect. SKIN: Warm, Dry, normal turgor, no rashes or lesions noted. Course - Re-evaluation Re-evalutation: 02/21/19 03:53 Patient presents with a mild exacerbation of their baseline asthma. Mild wheezing at time of presentation but vitals do not show significant hypoxemia or tachypnea. No retractions. Patient did clinically improve after receiving n ebulizers here in the emergency department. Patient able to ambulate without any respiratory distress. Based on patient's overall reassuring assessment, I believe they are stable for outpatient management. Patient has been given a dose of oral dexamethasone here in the emergency department for steroid coverage. I do not suspect an acute alternative pathology at this time based on history and exam including acute pulmonary embolus, ACS, pneumothorax, or aortic dissection. At this time will discharge with return precautions and follow-up recommendations. Verbal discharge instructions given a the bedside and opportunity for questions given. Medication warnings reviewed. Patient is in agreement with this plan and has verbalized understanding of return precautions and the need for primary care follow-up in the next 24-72 hours. - Vital Signs Vital signs: Temp Pulse Resp BP Pulse Ox 98.7 F 94 28 H 121/60 94 02/21/19 01:38 02/21/19 01:38 02/21/19 01:38 02/21/19 01:38 02/21/19 01:38 Discharge - Discharge Clinical Impression: Cough Asthma exacerbation Qualifiers: Asthma severity: mild Asthma persistence: persistent Qualified Code(s): J45.31 - Mild persistent asthma with (acute) exacerbation Condition: Good Disposition: HOME, SELF-CARE Additional Instructions: You were seen for an asthma exacerbation. Your symptoms improved with treatment here in the emergency department. However, it is very important that you return to the emergency department immediately if you began to have worsening difficulty breathing that does not respond to your normal home nebulizers. Please also follow closely with your primary care physician. you should also return to emergency department if you develop fever greater than 101, persistent cough, persistent vomiting, pass out, or any other symptoms that are concerning to you. Referrals: GIANCARLO CHANCE MD [Primary Care Provider] - Follow up as needed
[2019-02-21 04:14] VITALS: BP 145/78
== END 2019-02-21 04:12 | disposition home or self-care (01) ==
LOC: ER 01:34
DX: J45.31 Mild persistent asthma with (acute) exacerbation (principal); R05 Cough; R06.02 Shortness of breath; Z59.0 Homelessness
CPT/HCPCS: 94640 ×2; 99283; J3490; J7620

== ENCOUNTER 2019-02-24 00:34 | Emergency (ER) | payer MEDICAID ==
[2019-02-24] MEDS ORDERED: IPRATROPIUM/ALBUTEROL 0.5-2.5 MG/3 ML AMPUL NEB ONE (03:49)
--- NOTE | 2019-02-24 03:52 | ER Document Report ---
HPI - HPI Time Seen by Provider: 02/24/19 03:38 Pain Level: 2 Context: Patient is a 33-year-old male with a history of asthma that comes to the emergency department for chief complaint of a coughing episode that happened earlier with some wheezing. He states he feels much better now and is only intermittently mildly wheezing. He denies feeling short of breath at this time. He denies fever/chills, nausea/vomiting, chest pain. - RESPIRATORY Respiratory: REPORTS: Coughing - REPRODUCTIVE Reproductive: DENIES: : Past Medical History - General Information source: Patient - Social History Smoking Status: Never Smoker Frequency of alcohol use: None Drug Abuse: None Lives with: Alone Family History: Reviewed & Not Pertinent Patient has suicidal ideation: No Patient has homicidal ideation: No Pulmonary Medical History: Reports: Hx Asthma Renal/ Medical History: Denies: Hx Peritoneal Dialysis GI Medical History: Reports: Hx Irritable Bowel - constipation Musculoskeletal Medical History: Reports Hx Arthritis, Reports Hx Musculoskeletal Trauma Psychiatric Medical History: Reports: Hx Anxiety, Hx Bipolar Disorder, Hx Depression, Hx Personality Disorder, Hx Schizoaffective Disorder, Hx Schizoph jose l Past Surgical History: Reports: Hx Abdominal Surgery, Hx Appendectomy, Hx Cholecystectomy. Denies: Hx Orthopedic Surgery - fractured finger - Immunizations Immunizations up to date: Yes Hx Diphtheria, Pertussis, Tetanus Vaccination: Yes - 2012 Hx Pneumococcal Vaccination: 08/23/00 Vertical Provider Document - CONSTITUTIONAL General Appearance: WD/WN, No Apparent Distress - Sleeping and easily aroused - INFECTION CONTROL TRAVEL OUTSIDE OF THE [place] IN LAST 30 DAYS: No COUNTRY TRAVELED TO/FROM: [place] - HEENT HEENT: Atraumatic, Normal ENT Exam, Normocephalic - NECK Neck: Normal Inspection - RESPIRATORY Respiratory: Other - A few scattered expiratory wheezes, no tachypnea, clear lungs otherwise, no signs of respiratory distress. - CARDIOVASCULAR Cardiovascular: Regular Rate, Regular Rhythm - GI/ABDOMEN Gastrointestinal: Abdomen Soft, Abdomen Non-Tender - BACK Back: Normal Inspection - MUSCULOSKELETAL/EXTREMETIES Musculoskeletal/Extremeties: MAEW, FROM, Non-Tender - NEURO Level of Consciousness: Awake, Alert, Appropriate - DERM Integumentary: Warm, Dry, No Rash Course - Re-evaluation Re-evalutation: Patient sleeping and easily aroused. No respiratory distress. A few scattered wheezes which resolved with a DuoNeb. No hypoxia. Patient with no concerns otherwise. Patient recently came off steroids, has home inhalers, discussed primary care follow-up and return precautions. Patient states understanding and agreement. Stable at time of discharge. - Vital Signs Vital signs: Temp Pulse Resp BP Pulse Ox 98 F 50 L 16 130/75 H 99 02/24/19 01:13 02/24/19 01:13 02/24/19 01:13 02/24/19 01:13 02/24/19 01:13 Discharge - Discharge Clinical Impression: Wheezing, Cough Condition: Stable Disposition: HOME, SELF-CARE Additional Instructions: Your evaluation is consistent with a mild asthma exacerbation. You have been treated for this tonight. Continue your home albuterol inhaler. Follow-up with primary care. Return if you worsen including difficulty breathing, fever, or any other concerning symptoms. Referrals: GIANCARLO CHANCE MD [Primary Care Provider] - Follow up in 3-5 days
[2019-02-24 04:42] VITALS: BP 142/83
== END 2019-02-24 04:42 | disposition home or self-care (01) ==
LOC: ER 00:34
DX: R05 Cough (principal); J45.909 Unspecified asthma, uncomplicated
CPT/HCPCS: 94640; 99283; J7620

== ENCOUNTER 2019-02-24 22:35 | Emergency (ER) | payer MEDICAID ==
[2019-02-24 23:37] VITALS: BP 141/82
--- NOTE | 2019-02-25 01:37 | ER Document Report ---
HPI - HPI Time Seen by Provider: 02/25/19 00:47 Pain Level: 3 Context: Patient is a 33-year-old male well-known to this emergency department who presents to the emergency department with tooth pain to tooth #30 and 31. He states that his pain started today. He took some [id number] benzocaine to help with his symptoms. Denies any shortness of breath, different quality breathing, or any other symptoms at this time. - ROS Notes: REVIEW OF SYSTEMS: CONSTITUTIONAL : Denies recent illness. Denies recent unintentional weight loss. Denies fever, chills, or sweats. EENT: See HPI CARDIOVASCULAR: Denies chest pain. RESPIRATORY: Denies shortness of breath, cough, congestion, difficulty breathing, or wheezing. GASTROINTESTINAL: Denies nausea, vomiting, and diarrhea. Denies abdominal pain. Denies constipation. GENITOURINARY: Denies difficulty urinating, burning, blood in urine, urgency or frequency. MUSCULOSKELETAL: Denies neck and back pain. Denies joint pain or swelling. SKIN: Denies rash, itchiness, or lesions HEMATOLOGIC : Denies easy bruising or bleeding. LYMPHATIC: Denies swollen, painful, enlarged glands. NEUROLOGICAL: Denies no numbness or tingling denies weakness. Denies headache. Denies altered mental status. Denies alteration in speech. PSYCHIATRIC: Denies stress, anxiety, alteration in sleep patterns, or depression. All other systems reviewed and negative. - RESPIRATORY Respiratory: REPORTS: Coughing - REPRODUCTIVE Reproductive: DENIES: : Past Medical History - Social History Smoking Status: Never Smoker Family History: Reviewed & Not Pertinent Patient has suicidal ideation: No Patient has homicidal ideation: No Pulmonary Medical History: Reports: Hx Asthma Renal/ Medical History: Denies: Hx Peritoneal Dialysis GI Medical History: Reports: Hx Irritable Bowel - constipation Musculoskeletal Medical History: Reports Hx Arthritis, Reports Hx Musculoskeletal Trauma Psychiatric Medical History: Reports: Hx Anxiety, Hx Bipolar Disorder, Hx Depression, Hx Personality Disorder, Hx Schizoaffective Disorder, Hx Schiz ophrenia Past Surgical History: Reports: Hx Abdominal Surgery, Hx Appendectomy, Hx Cholecystectomy. Denies: Hx Orthopedic Surgery - fractured finger - Immunizations Immunizations up to date: Yes Hx Diphtheria, Pertussis, Tetanus Vaccination: Yes - 2012 Hx Pneumococcal Vaccination: 08/23/00 Vertical Provider Document - CONSTITUTIONAL Notes: PHYSICAL EXAMINATION: GENERAL: Appears well, healthy, well-nourished, no acute distress. HEAD: Normocephalic, atraumatic. EYES: PERRL, conjunctiva normal, all extraocular movements intact, sclera nonicteric ENT: Moist mucous membranes. Dental carries noted to teeth #30 and 31. NECK: Supple, no noticeable swelling, redness, rash. Normal range of motion. LUNGS: Equal breath sounds bilaterally and clear to auscultation. No wheezes rales or rhonchi. CARDIOVASCULAR: S1-S2, regular rate, regular rhythm. Radial pulses 2+, normal. ABDOMEN: Normoactive bowel sounds. Soft, nontender, no guarding, no rebound tenderness, and no masses palpated. EXTREMITIES: Normal strength and range of motion, no pitting or edema. No cyanosis. NEUROLOGICAL: Moves all extremities upon command. Strength 5/5 in all extremities. PSYCH: Normal mood, normal affect. SKIN: Warm, dry. No rash, lesions, ulcerations noted. Normal skin turgor. - INFECTION CONTROL TRAVEL OUTSIDE OF THE [place] IN LAST 30 DAYS: No COUNTRY TRAVELED TO/FROM: [facility] Course - Re-evaluation Re-evalutation: 02/25/19 01:37 Patient's physical exam and history is most consistent with a infected tooth. Patient is able to swallow, no facial swelling noted, airways pain, vital signs are normal. I do not suspect Jose Juan's angina, peritonsilar abscess, or airway obstruction. The patient will be started on oral antibiotics. I have given the patient education on their antibiotics. Patient was given instructions to follow-up with a dentist this week. Return precautions were given. Verbal discharge instructions were given. Patient verbalized understanding. Patient is stable for discharge. - Vital Signs Vital signs: Temp Pulse Resp BP Pulse Ox 98.1 F 66 16 141/82 H 96 02/24/19 23:35 02/24/19 23:35 02/24/19 23:35 02/24/19 23:35 02/24/19 23:35 Discharge - Discharge Clinical Impression: Toothache Condition: Stable Disposition: HOME, SELF-CARE Instructions: Penicillin V K ([facility]), Toothache ([facility]) Additional Instructions: You have been seen in the emergency department for a toothache. You may take ibuprofen 600 mg and Tylenol 1000 mg every 6 hours as needed for the pain. You have also been given topical lidocaine. Placed that to the affected tooth as needed to help with pain. You have also been prescribed antibiotics. Please take the antibiotics as prescribed, even if you start to feel better. If you develop a fever greater than 100.4 F, or have any symptoms that are worrisome to you, please return to the emergency department. Please follow-up with a dentist this week in regards to your visit. Follow-up with [facility]. Make an appointment with them. [phone] Prescriptions: Penicillin V Potassium [Penicillin Vk 500 mg Tablet] 500 mg PO BID #20 tablet Referrals: GIANCARLO CHANCE MD [Primary Care Provider] - Follow up as needed [facility] [Provider Group] - Follow up in 1 week
[2019-02-25] MEDS ORDERED: PENICILLIN V POTASSIUM 500 MG TABLET PO ONE (01:39)
[2019-02-25] MEDS ORDERED: LIDOCAINE 2% VISCOUS SOLN 20 ML UDCUP PO ONE (01:39)
== END 2019-02-25 02:06 | disposition home or self-care (01) ==
LOC: ER 22:35
DX: K02.9 Dental caries, unspecified (principal); K08.89 Other specified disorders of teeth and supporting structures; J45.909 Unspecified asthma, uncomplicated
CPT/HCPCS: 99282; J3490 ×2

== ENCOUNTER 2019-02-25 06:56 | Emergency (ER) | payer MEDICAID ==
[2019-02-25 07:32] VITALS: BP 112/76
[2019-02-25] MEDS ORDERED: IPRATROPIUM/ALBUTEROL 0.5-2.5 MG/3 ML AMPUL NEB ONE (09:02)
--- NOTE | 2019-02-25 09:09 | ER Document Report ---
Addendum entered and electronically signed by MAE SCHNEIDER PA-C 03/07/19 07:06: Procedures - Immobilization Left Arm Immobilizer type: Long arm posterior Performed by: PCT Post-Proc Neuro Vasc Exam: Normal Original Note: HPI - HPI Patient complains to provider of: cough Time Seen by Provider: 02/25/19 08:07 Pain Level: 2 Context: 33-year-old male well-known to this emergency department with asthma and schizophrenia presents to the emergency department with chief complaint of cough and wheezing that is not gotten worse over the last couple of days. Patient states that he is a little bit tight and thinks that he needs a DuoNeb treatment. Patient denies any fevers or chills, denies any respiratory distress, denies cough or chest pain, denies any URI symptoms or rhinorrhea, denies any abdominal pain, denies nausea or vomiting, denies urinary symptoms. Of note, patient was offered a shower here in the emergency department and afterwards upon interview stated that his cast got wet in the proximal one third portion. - RESPIRATORY Respiratory: REPORTS: Coughing - REPRODUCTIVE Reproductive: DENIES: : Past Medical History - Social History Smoking Status: Unknown if Ever Smoked Chew tobacco use (# tins/day): No Frequency of alcohol use: None Drug Abuse: None Family History: Reviewed & Not Pertinent Patient has suicidal ideation: No Patient has homicidal ideation: No Pulmonary Medical History: Reports: Hx Asthma Renal/ Medical History: Denies: Hx Peritoneal Dialysis GI Medical History: Reports: Hx Irritable Bowel - constipation Musculoskeletal Medical History: Reports Hx Arthritis, Reports Hx Musculoskeletal Trauma Psychiatric Medical History: Reports: Hx Anxiety, Hx Bipolar Disorder, Hx Depression, Hx Personality Disorder, Hx Schizoaffective Disorder, Hx Schizophrenia Past Surgical History: Reports: Hx Abdominal Surgery, Hx Appendectomy, Hx Cholecystectomy. Denies: Hx Orthopedic Surgery - fractured finger - Immunizations Immunizations up to date: Yes Hx Diphtheria, Pertussis, Tetanus Vaccination: Yes - 2012 Hx Pneumococcal Vaccination: 08/23/00 Vertical Provider Document - CONSTITUTIONAL Notes: PHYSICAL EXAMINATION: Reviewed vital signs and charting by RN GENERAL: Alert, interacts well. No acute distress. HEAD: Normocephalic, atraumatic. EYES: Pupils equal and round. Extraocular movements intact. ENT: Oral mucosa moist, tongue midline. NECK: Full range of motion. Trachea midline. LUNGS: Diffuse inspiratory and expiratory wheezing all garcia, patient is moving air adequately, no respiratory distress HEART: Regular rate and rhythm. No murmur ABDOMEN: soft, non-tender. No distention. Bowel sounds present EXTREMITIES: Left arm immobilized in a cast in the proximal portion is wet after taking a shower PSYCH: Normal affect, normal mood. SKIN: Warm, dry, normal turgor. No rashes or lesions noted. - INFECTION CONTROL TRAVEL OUTSIDE OF THE [place] IN LAST 30 DAYS: No COUNTRY TRAVELED TO/FROM: [facility] Course - Re-evaluation Re-evalutation: 02/25/19 10:02 Generally well-appearing. Patient received 2 DuoNeb's and responded very well he is now clear to auscultation in all garcia. Patient's cast was significantly wet in the proximal portion so it was removed and in a posterior long-arm was placed from mid humerus down to the MCPs to immobilize the wrist and the elbow. Otherwise, patient is stable for discharge and has strict return precautions with instructions to follow-up with orthopedics on Wednesday first thing. - Vital Signs Vital signs: Temp Pulse Resp BP Pulse Ox 98.1 F 74 20 112/76 96 02/25/19 07:15 02/25/19 07:15 02/25/19 07:15 02/25/19 07:15 02/25/19 07:15 Discharge - Discharge Clinical Impression: Cast removal Asthma exacerbation Qualifiers: Asthma severity: mild Asthma persistence: persistent Qualified Code(s): J45.31 - Mild persistent asthma with (acute) exacerbation Condition: Good Disposition: HOME, SELF-CARE Additional Instructions: You were seen for an asthma exacerbation. Your symptoms improved with treatment here in the emergency department. However, it is very important that you return to the emergency department immediately if you began to have worsening difficulty breathing that does not respond to your normal home nebulizers. You are also being sent home on a five-day course of steroids that you should start taking tomorrow. Please also follow closely with your primary care physician. you should also return to emergency department if you develop fever greater than 101, persistent cough, persistent vomiting, pass out, or any other symptoms that are concerning to you. Also, your cast when you are cleaning up so we had to remove it and replace it with a splint. Please follow-up with the orthopedist on Wednesday morning first thing so they can reassess. Referrals: GIANCARLO CHANCE MD [Primary Care Provider] - Follow up as needed KATRIN SANTOS MD [ACTIVE STAFF] - 02/27/19
== END 2019-02-25 10:31 | disposition home or self-care (01) ==
LOC: ER 06:56
DX: J45.31 Mild persistent asthma with (acute) exacerbation (principal); Z46.89 Encounter for fitting and adjustment of other specified devices; Z90.49 Acquired absence of other specified parts of digestive tract
CPT/HCPCS: 94640; 99282; 29105; J7620

== ENCOUNTER 2019-02-28 03:13 | Emergency (ER) | payer MEDICAID ==
[2019-02-28] MEDS ORDERED: ALBUTEROL SULFATE HFA (90 MCG/PUFF) 8 GM MDI (1 MDI/ER DISP) IH ONE (03:51)
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
[2019-02-28 04:22] VITALS: BP 107/64
== END 2019-02-28 04:27 | disposition home or self-care (01) ==
LOC: ER 03:13
DX: S80.01XA Contusion of right knee, initial encounter (principal); R05 Cough; W22.8XXA Striking against or struck by other objects, initial encounter; Z90.49 Acquired absence of other specified parts of digestive tract
CPT/HCPCS: 99283; J3490

== ENCOUNTER 2019-03-02 06:49 | Emergency (ER) | payer MEDICAID ==
[2019-03-02 06:54] VITALS: BP 123/79
[2019-03-02] MEDS ORDERED: PENICILLIN V POTASSIUM 500 MG TABLET PO ONE (08:55)
--- NOTE | 2019-03-02 08:59 | ER Document Report ---
HPI - HPI Patient complains to provider of: toothache Time Seen by Provider: 03/02/19 08:20 Pain Level: 5 Context: Patient is a 33-year-old male presents to the emergency department for right lower tooth pain. Patient states he has tooth pain since last evening. Patient's denying any fevers. Patient is unsure of when the last time he saw dentist was. - CONSTITUTIONAL Constitutional: DENIES: Fever, Chills - EENT EENT: DENIES: Sore Throat, Ear Pain, Eye problems - NEURO Neurology: DENIES: Headache, Weakness, Vision blurred, Dizzinesss / Vertigo - CARDIOVASCULAR Cardiovascular: DENIES: Chest pain - RESPIRATORY Respiratory: DENIES: Trouble Breathing, Coughing - GASTROINTESTINAL Gastrointestinal: DENIES: Abdominal Pain, Black / Bloody Stools - URINARY Urinary: DENIES: Dysuria, Urgency, Frequency - REPRODUCTIVE Reproductive: DENIES: : - MUSCULOSKELETAL Musculoskeletal: DENIES: Extremity pain Past Medical History - General Information source: Patient - Social History Smoking Status: Unknown if Ever Smoked Chew tobacco use (# tins/day): No Drug Abuse: None Family History: Reviewed & Not Pertinent Patient has suicidal ideation: No Patient has homicidal ideation: No Pulmonary Medical History: Reports: Hx Asthma Renal/ Medical History: Denies: Hx Peritoneal Dialysis GI Medical History: Reports: Hx Irritable Bowel - constipation Musculoskeletal Medical History: Reports Hx Arthritis, Reports Hx Musculoskeletal Trauma Psychiatric Medical History: Reports: Hx Anxiety, Hx Bipolar Disorder, Hx Depression, Hx Personality Disorder, Hx Schizoaffective Disorder, Hx Schizophrenia Past Surgical History: Reports: Hx Abdominal Surgery, Hx Appendectomy, Hx Cholecystectomy. Denies: Hx Orthopedic Surgery - fractured finger - Immunizations Immunizations up to date: Yes Hx Diphtheria, Pertussis, Tetanus Vaccination: Yes - 2012 Hx Pneumococcal Vaccination: 08/23/00 Vertical Provider Document - CONSTITUTIONAL Agree With Documented VS: Yes Notes: GENERAL: Alert, interacts well. No acute distress. HEAD: Normocephalic, atraumatic. EYES: Pupils equal, round, and reactive to light. Extraocular movements intact. ENT: Oral mucosa moist, tongue midline. Dentition appears relatively well intact tooth in question is #30, minor erythema noted at the gumline, no areas of fluctuance or induration noted. Negative Jose Juan's angina. NECK: Full range of motion. Supple. Trachea midline. LUNGS: Clear to auscultation bilaterally, no wheezes, rales, or rhonchi. No respiratory distress. HEART: Regular rate and rhythm. No murmur ABDOMEN: Soft, non-tender. Non-distended. Bowel sounds present in all 4 quadrants. EXTREMITIES: Moves all 4 extremities spontaneously. No edema, normal radial and dorsalis pedis pulses bilaterally. No cyanosis. BACK: no cervical, thoracic, lumbar midline tenderness. No saddle anesthesia, normal distal neurovascular exam. NEUROLOGICAL: Alert and oriented x3. Normal speech. cranial nerves II through XII grossly intact PSYCH: Normal affect, normal mood. SKIN: Warm, dry, normal turgor. No rashes or lesions noted. - INFECTION CONTROL TRAVEL OUTSIDE OF THE [place] IN LAST 30 DAYS: No COUNTRY TRAVELED TO/FROM: [facility] Course - Re-evaluation Re-evalutation: 03/02/19 08:58 Discussed with patient use of antibiotics [id number] analgesics and following up with the dental clinic. patient initially states he has insurance but then states he does not. Patient refuses Tylenol or Motrin in the emergency department. Patient was given initial dose of penicillin in the emergency department. At this time will discharge with return precautions and follow-up rec ommendations. Verbal discharge instructions given a the bedside and opportunity for questions given. Medication warnings reviewed. Patient is in agreement with this plan and has verbalized understanding of return precautions and the need for primary care follow-up in the next 24-72 hours. This medical record was dictated with voice recognizing software. There may be grammatical, syntax errors that are unintended. - Vital Signs Vital signs: Temp Pulse Resp BP Pulse Ox 97.9 F 68 16 123/79 97 03/02/19 06:54 03/02/19 06:54 03/02/19 06:54 03/02/19 06:54 03/02/19 06:54 Discharge - Discharge Clinical Impression: Tooth ache Condition: Stable Disposition: HOME, SELF-CARE Instructions: [facility], Penicillin V K ([facility]), Toothache ([facility]) Additional Instructions: You have been seen and treated in the emergency department for a toothache. Please make sure you take antibiotics as prescribed. Please also make sure you take enri-aop-[id number] Tylenol or Motrin for generalized pain. Please follow-up with your primary care provider in the dentist. Phone numbers for the [facility] dental clinic will be provided in this packet. Please return to the emergency room for any concerns. Prescriptions: Penicillin V Potassium [Penicillin Vk 500 mg Tablet] 500 mg PO BID #20 tablet Referrals: GIANCARLO CHANCE MD [Primary Care Provider] - Follow up as needed [facility] [Provider Group] - Follow up as needed
== END 2019-03-02 09:02 | disposition home or self-care (01) ==
LOC: ER 06:49
DX: K08.89 Other specified disorders of teeth and supporting structures (principal); J45.909 Unspecified asthma, uncomplicated
CPT/HCPCS: 99282; J3490

== ENCOUNTER 2019-03-09 11:14 | Emergency (ER) | payer MEDICAID ==
[2019-03-09 11:20] VITALS: BP 138/89
[2019-03-09] MEDS ORDERED: ALBUTEROL SULFATE HFA (90 MCG/PUFF) 8 GM MDI (1 MDI/ER DISP) IH ONE (11:29)
[2019-03-09] MEDS ORDERED: IBUPROFEN 800 MG TABLET PO ONE (11:29)
--- NOTE | 2019-03-09 11:31 | ER Document Report ---
HPI - HPI Time Seen by Provider: 03/09/19 11:29 Pain Level: 4 Notes: Patient is a 33-year-old male presenting with chief complaint of dental pain. Patient reports pain at tooth #30, 31 and 32. Patient reports this has been ongoing for several weeks. He denies any drainage from the area or fevers. He also reports that he is out of his albuterol inhaler. - CONSTITUTIONAL Constitutional: DENIES: Fever, Chills - REPRODUCTIVE Reproductive: DENIES: : Past Medical History - General Information source: Patient - Social History Smoking Status: Current Some Day Smoker Frequency of alcohol use: None Drug Abuse: None Family History: Reviewed & Not Pertinent Patient has suicidal ideation: No Patient has homicidal ideation: No Pulmonary Medical History: Reports: Hx Asthma Renal/ Medical History: Denies: Hx Peritoneal Dialysis GI Medical History: Reports: Hx Irritable Bowel - constipation Musculoskeletal Medical History: Reports Hx Arthritis, Reports Hx Musculoskeletal Trauma Psychiatric Medical History: Reports: Hx Anxiety, Hx Bipolar Disorder, Hx Depression, Hx Personality Disorder, Hx Schizoaffective Disorder, Hx Schizophrenia Past Surgical History: Reports: Hx Abdominal Surgery, Hx Appendectomy, Hx Cholecystectomy. Denies: Hx Orthopedic Surgery - fractured finger - Immunizations Immunizations up to date: Yes Hx Diphtheria, Pertussis, Tetanus Vaccination: Yes - 2012 Hx Pneumococcal Vaccination: 08/23/00 Vertical Provider Document - CONSTITUTIONAL Notes: PHYSICAL EXAMINATION: GENERAL: Well-appearing, well-nourished and in no acute distress. HEAD: Atraumatic, normocephalic. EYES: Pupils equal round extraocular movements intact, conjunctiva are normal. ENT: Nares patent, poor dentition noted throughout, no drainable abscess identified. NECK: Normal range of motion LUNGS: No respiratory distress Musculoskeletal: Normal range of motion NEUROLOGICAL: Normal speech, normal gait. PSYCH: Normal mood, normal affect. SKIN: Warm, Dry, normal turgor, no rashes or lesions noted. - INFECTION CONTROL TRAVEL OUTSIDE OF THE [place] IN LAST 30 DAYS: No COUNTRY TRAVELED TO/FROM: [facility] Course - Re-evaluation Re-evalutation: We will start patient on penicillin VK, will give dispense of albuterol. Patient will be discharged home at this time. - Vital Signs Vital signs: Temp Pulse Resp BP Pulse Ox 98.3 F 86 20 138/89 H 98 03/09/19 11:18 03/09/19 11:18 03/09/19 11:18 03/09/19 11:18 03/09/19 11:18 Discharge - Discharge Clinical Impression: Pain, dental Condition: Stable Disposition: HOME, SELF-CARE Additional Instructions: You have been seen for dental pain. It is very important that you follow-up with a dentist for definitive care. Please return if you develop fever greater than 101, swelling in your face, vomiting, difficulty breathing or swallowing, or any other symptoms that are concerning to you. For pain you should take ibuprofen 800 mg every 8 hours as needed. Referrals: GIANCARLO CHANCE MD [Primary Care Provider] - Follow up as needed
== END 2019-03-09 11:39 | disposition home or self-care (01) ==
LOC: ER 11:14
DX: K08.89 Other specified disorders of teeth and supporting structures (principal); F17.200 Nicotine dependence, unspecified, uncomplicated; J45.909 Unspecified asthma, uncomplicated
CPT/HCPCS: 99282; J3490 ×2

== ENCOUNTER 2019-03-10 05:03 | Emergency (ER) | payer MEDICAID ==
[2019-03-10 05:09] VITALS: BP 123/74
== END 2019-03-10 07:40 | disposition left against medical advice (07) ==
LOC: ER 05:03
DX: Z53.21 Procedure and treatment not carried out due to patient leaving prior to being seen by health care provider (principal)

== ENCOUNTER 2019-03-10 22:13 | Emergency (ER) | payer MEDICAID ==
[2019-03-11] MEDS ORDERED: ALBUTEROL SULFATE HFA (90 MCG/PUFF) 8 GM MDI (1 MDI/ER DISP) IH ONE (01:26)
[2019-03-11] MEDS ORDERED: PREDNISONE 20 MG TABLET PO ONE (01:27)
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
[2019-03-11 01:40] VITALS: BP 138/78
== END 2019-03-11 01:42 | disposition home or self-care (01) ==
LOC: ER 22:13
DX: J45.901 Unspecified asthma with (acute) exacerbation (principal); Z76.0 Encounter for issue of repeat prescription; Z59.0 Homelessness
CPT/HCPCS: 99284; J7512; J3490

== ENCOUNTER 2019-03-14 23:51 | Emergency (ER) | payer MEDICAID ==
[2019-03-15 00:42] VITALS: BP 153/78
== END 2019-03-15 04:33 | disposition left against medical advice (07) ==
LOC: ER 23:51
DX: Z53.21 Procedure and treatment not carried out due to patient leaving prior to being seen by health care provider (principal); R10.9 Unspecified abdominal pain

== ENCOUNTER 2019-03-16 04:58 | Emergency (ER) | payer MEDICAID ==
[2019-03-16 05:06] VITALS: BP 136/72
[2019-03-16] MEDS ORDERED: ALBUTEROL SULFATE HFA (90 MCG/PUFF) 8 GM MDI (1 MDI/ER DISP) IH ONE (06:31)
[2019-03-16] MEDS ORDERED: IPRATROPIUM/ALBUTEROL 0.5-2.5 MG/3 ML AMPUL NEB ONE (06:31)
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
== END 2019-03-16 07:42 | disposition home or self-care (01) ==
LOC: ER 04:58
DX: R06.2 Wheezing (principal); H57.9 Unspecified disorder of eye and adnexa; R05 Cough
CPT/HCPCS: 94640; 99284; J3490; J7620

== ENCOUNTER 2019-03-17 22:34 | Emergency (ER) | payer MEDICAID ==
[2019-03-18] MEDS ORDERED: PREDNISONE 20 MG TABLET PO ONE (02:35)
[2019-03-18] MEDS ORDERED: IPRATROPIUM/ALBUTEROL 0.5-2.5 MG/3 ML AMPUL NEB ONE (02:35)
--- NOTE | 2019-03-18 02:42 | ER Document Report ---
ED General - General Chief Complaint: Medication Refill Stated Complaint: ASTHMA Time Seen by Provider: 03/18/19 02:27 Primary Care Provider: GIANCARLO CHANCE MD [Primary Care Provider] - Follow up in 3-5 days Mode of Arrival: Ambulatory Information source: Patient Notes: 33-year-old male with asthma presents with request for albuterol MDI refill. Patient states that he has had mild cough, wheezing over the last few days. He denies any fever, chills, chest pain. TRAVEL OUTSIDE OF THE [place] IN LAST 30 DAYS: No COUNTRY TRAVELED TO/FROM: [facility] - [facility] Onset: Other Quality of pain: No pain Severity: None Pain Level: Denies Associated symptoms: Nonproductive cough, Shortness of breath. denies: Chest pain, Fever, Hurts to breath, Leg swelling, Nausea, Vomiting, Weakness Exacerbated by: Coughing Relieved by: Denies Similar symptoms previously: Yes Recently seen / treated by doctor: Yes - Related Data Allergies/Adverse Reactions: No Known Allergies Allergy (Verified 03/09/19 11:15) Past Medical History - General Information source: Patient - Social History Smoking Status: Current Every Day Smoker Cigarette use (# per day): Yes - 10 Smoking Education Provided: Yes - Smoking cessation counseling was provided for 4 minutes at the bedside Frequency of alcohol use: None Drug Abuse: None Lives with: Homeless Family History: Reviewed & Not Pertinent Patient has suicidal ideation: No Patient has homicidal ideation: No Pulmonary Medical History: Reports: Hx Asthma Renal/ Medical History: Denies: Hx Peritoneal Dialysis GI Medical History: Reports: Hx Irritable Bowel - constipation Musculoskeletal Medical History: Reports Hx Arthritis, Reports Hx Musculoskeletal Trauma Psychiatric Medical History: Reports: Hx Anxiety, Hx Bipolar Disorder, Hx Depression, Hx Personality Disorder, Hx Schizoaffective Disorder, Hx Schizophrenia Past Surgical History: Reports: Hx Abdominal Surgery, Hx Appendectomy, Hx Cholecystectomy. Denies: Hx Orthopedic Surgery - fractured finger - Immunizations Immunizations up to date: Yes Hx Diphtheria, Pertussis, Tetanus Vaccination: Yes - 2012 Hx Pneumococcal Vaccination: 08/23/00 Review of Systems - Review of Systems Notes: REVIEW OF SYSTEMS: CONSTITUTIONAL : Denies fever, chills, or sweats. Denies recent illness. Denies weight loss, recent hospitalizations. EENT: Denies visual changes, eye pain. Denies sore throat, oral lesions, difficulty swallowing. CARDIOVASCULAR: Denies chest pain. Denies palpitations. Denies lower extremity edema. RESPIRATORY: + cough. + shortness of breath, wheezing. GASTROINTESTINAL: Denies abdominal pain or distention. Denies nausea, vomiting, or diarrhea. Denies blood in vomitus, stools, or per rectum. Denies black, tarry stools. Denies constipation. GENITOURINARY: Denies difficulty urinating, painful urination, frequency, blood in urine, testicular pain or penile discharge. MUSCULOSKELETAL: Denies back or neck pain or stiffness. Denies joint pain or swelling. SKIN: Denies rash, lesions or sores. HEMATOLOGIC : Denies easy bruising or bleeding. LYMPHATIC: Denies swollen glands. NEUROLOGICAL: Denies confusion or altered mental status. Denies loss of consciousness. Denies dizziness or lightheadedness. Denies headache. Denies weakness or paralysis. Denies problems difficulty with ambulation, slurred speech. Denies sensory loss, numbness, or tingling. Denies seizures. PSYCHIATRIC: Denies anxiety or stress. Denies depression, suicidal ideation, or Physical Exam - Vital signs Vitals: Temp Pulse Resp BP Pulse Ox 98.1 F 59 L 18 124/73 98 03/17/19 22:56 03/17/19 22:56 03/17/19 22:56 03/17/19 22:56 03/17/19 22:56 - Notes Notes: PHYSICAL EXAMINATION: GENERAL: Well-appearing, well-nourished and in no acute distress. HEAD: Atraumatic, normocephalic. EYES: Pupils equal round and reactive to light, extraocular movements intact, sclera anicteric, conjunctiva are normal. ENT: Nares patent, oropharynx clear without exudates. Moist mucous membranes. NECK: Normal range of motion, supple without lymphadenopathy LUNGS: Breath sounds clear to auscultation bilaterally and equal. Mild expiratory wheezing. No increased work of breathing. No accessory muscle use. HEART: Regular rate and rhythm without murmurs ABDOMEN: Soft, nontender, nondistended abdomen. No guarding, no rebound. No masses appreciated. Musculoskeletal: Normal range of motion, no pitting or edema. No cyanosis. NEUROLOGICAL: Cranial nerves grossly intact. Normal speech, normal gait. Normal sensory, motor exams PSYCH: Normal mood, normal affect. SKIN: Warm, Dry, normal turgor, no rashes or lesions noted. Course - Re-evaluation Re-evalutation: 03/19/19 06:27 Patient presents with a mild exacerbation of their baseline asthma. Mild wheezing at time of presentation but vitals do not show significant hypoxemia or tachypnea. No retractions. Patient did clinically improve after receiving nebulizers here in the emergency department. Chest x-ray without evidence of an acute pneumonia. Patient able to ambulate without any respiratory distress. Based on patient's overall reassuring assessment, I believe they are stable for outpatient management with steroids. I do not suspect an acute alternative pathology at this time based on history and exam including acute pulmonary embolus, ACS, pneumothorax, or aortic dissection. At this time will discharge with return precautions and follow-up recommendations. Verbal discharge instructions given a the bedside and opportunity for questions given. Medication warnings reviewed. Patient is in agreement with this plan and has verbalized understanding of return precautions and the need for primary care follow-up in the next 24-72 hours. - Vital Signs Vital signs: Temp Pulse Resp BP Pulse Ox 97.7 F 56 L 16 112/64 95 03/18/19 03:14 03/18/19 03:14 03/18/19 03:14 03/18/19 03:14 03/18/19 03:14 Discharge - Discharge Clinical Impression: Cough, Wheezing Asthma exacerbation Qualifiers: Asthma severity: mild Asthma persistence: intermittent Qualified Code(s): J45.21 - Mild intermittent asthma with (acute) exacerbation Condition: Good Disposition: HOME, SELF-CARE Instructions: Asthma ([facility]) Additional Instructions: You were seen for an asthma exacerbation. Your symptoms improved with treatment here in the emergency department. However, it is very important that you return to the emergency department immediately if you began to have worsening difficulty breathing that does not respond to your normal home nebulizers. You are also being sent home on a five-day course of steroids that you should start taking tomorrow. Please also follow closely with your primary care physician. you should also return to emergency department if you develop fever greater than 101, persistent cough, persistent vomiting, pass out, or any other symptoms that are concerning to you. Prescriptions: Prednisone [Deltasone 20 mg Tablet] 40 mg PO DAILY #6 tablet Referrals: GIANCARLO CHANCE MD [Primary Care Provider] - Follow up in 3-5 days
[2019-03-18] MEDS ORDERED: ALBUTEROL SULFATE HFA (90 MCG/PUFF) 8 GM MDI (1 MDI/ER DISP) IH SCH (02:45)
[2019-03-18 03:18] VITALS: BP 112/64
== END 2019-03-18 03:18 | disposition home or self-care (01) ==
LOC: ER 22:34
PROC: HZ31ZZZ Individual Counseling for Substance Abuse Treatment, Behavioral (ICD-10-PCS; principal; 2019-03-17)
DX: J45.21 Mild intermittent asthma with (acute) exacerbation (principal); F17.210 Nicotine dependence, cigarettes, uncomplicated; Z59.0 Homelessness
CPT/HCPCS: 99406; 94640; 99284; J7512; J3490; J7620

== ENCOUNTER 2019-03-19 00:20 | Emergency (ER) | payer MEDICAID ==
[2019-03-19 00:45] VITALS: BP 127/73
== END 2019-03-19 01:00 | disposition left against medical advice (07) ==
LOC: ER 00:20
DX: Z53.21 Procedure and treatment not carried out due to patient leaving prior to being seen by health care provider (principal)

== ENCOUNTER 2019-03-20 06:02 | Emergency (ER) | payer MEDICAID ==
[2019-03-20 06:13] VITALS: BP 124/67
--- NOTE | 2019-03-20 06:18 | ER Document Report ---
ED General - General Chief Complaint: Other Stated Complaint: COUGH Time Seen by Provider: 03/20/19 06:14 Primary Care Provider: GIANCARLO CHANCE MD [Primary Care Provider] - Follow up as needed Notes: Patient with asthma presents with request for inhaler spacer. Having some mild wheezing. Seen here almost daily, and largely noncompliant. No fever chills or chest pain today. TRAVEL OUTSIDE OF THE [place] IN LAST 30 DAYS: No COUNTRY TRAVELED TO/FROM: [facility] - Related Data Allergies/Adverse Reactions: No Known Allergies Allergy (Verified 03/09/19 11:15) Past Medical History - General Information source: Patient - Social History Smoking Status: Never Smoker Family History: Reviewed & Not Pertinent Pulmonary Medical History: Reports: Hx Asthma Renal/ Medical History: Denies: Hx Peritoneal Dialysis GI Medical History: Reports: Hx Irritable Bowel - constipation Musculoskeletal Medical History: Reports Hx Arthritis, Reports Hx Musculoskeletal Trauma Psychiatric Medical History: Reports: Hx Anxiety, Hx Bipolar Disorder, Hx Depression, Hx Personality Disorder, Hx Schizoaffective Disorder, Hx Schizophrenia Past Surgical History: Reports: Hx Abdominal Surgery, Hx Appendectomy, Hx Cholecystectomy. Denies: Hx Orthopedic Surgery - fractured finger - Immunizations Immunizations up to date: Yes Hx Diphtheria, Pertussis, Tetanus Vaccination: Yes - 2012 Hx Pneumococcal Vaccination: 08/23/00 Review of Systems - Review of Systems Notes: REVIEW OF SYSTEMS GEN: Denies fever, chills, weight loss ENT: Denies sore throat, nasal discharge, ear pain EYES: Denies blurry vision, eye pain, discharge CV: Denies chest pain, palpitations, edema RESP: Cough shortness of breath and wheezing GI: Denies abdominal pain, nausea, vomiting, diarrhea MSK: Denies joint pain/swelling, edema, SKIN: Denies rash, skin lesions LYMPH: Denies swollen glands/lymph nodes NEURO: Denies headache, focal weakness or numbness, dizziness PSYCH: Denies depression, suicidal or homicidal ideation PHYSICAL EXAMINATION General: No acute distress, well-nourished Head: Atraumatic, normocephalic ENT: Mouth normal, oropharynx moist, no exudates or tonsillar enlargement Eyes: Conjunctiva normal, pupils equal, lids normal Neck: No JVD, supple, no guarding CVS: Normal rate, regular rhythm, no murmurs Resp: Comfortable, no increased effort, scant expiratory wheezing GI: Nondistended, soft, no tenderness to palpation, no rebound or guarding Ext: No deformities, no edema, normal range of motion in upper and lower ext Back: No CVA or midline TTP Skin: No rash, warm Lymphatic: No lymphadeopathy noted Neuro: Awake, alert. Face symmetric. GCS 15. Physical Exam - Vital signs Vitals: Temp Pulse Resp BP Pulse Ox 97.8 F 62 20 124/67 100 03/20/19 06:08 03/20/19 06:08 03/20/19 06:08 03/20/19 06:08 03/20/19 06:08 Course - Re-evaluation Re-evalutation: 03/20/19 06:18 With asthma. Requesting inhaler/spacer. His inhaler has several doses left so we provided him a spacer and recommended expeditious outpatient follow-up. I have discussed with the patient there likely diagnosis, aftercare plan, follow- up plans and my usual and customary return precautions. They verbalized understanding of this. - Vital Signs Vital signs: Temp Pulse Resp BP Pulse Ox 97.8 F 62 20 124/67 100 03/20/19 06:08 03/20/19 06:08 03/20/19 06:08 03/20/19 06:08 03/20/19 06:08 Discharge - Discharge Clinical Impression: Reactive airway disease Qualifiers: Asthma severity: mild Asthma persistence: intermittent Asthma complication type: uncomplicated Qualified Code(s): J45.20 - Mild intermittent asthma, uncomplicated Condition: Good Disposition: HOME, SELF-CARE Referrals: GIANCARLO CHANCE MD [Primary Care Provider] - Follow up as needed
== END 2019-03-20 06:21 | disposition home or self-care (01) ==
LOC: ER 06:02
DX: J45.20 Mild intermittent asthma, uncomplicated (principal); R05 Cough; R06.02 Shortness of breath
CPT/HCPCS: 99284

== ENCOUNTER 2019-03-20 18:01 | Emergency (ER) | payer MEDICAID ==
[2019-03-20] MEDS ORDERED: IPRATROPIUM/ALBUTEROL 0.5-2.5 MG/3 ML AMPUL NEB ONE (19:27)
[2019-03-20] MEDS ORDERED: METHYLPREDNISOLONE INJ 125 MG/2 ML SDV IV ONE (19:27)
[2019-03-20] MEDS ORDERED: MAGNESIUM SULFATE/D5W 1 GM/100 ML RTUPB IV ONE ×2 (19:28)
--- NOTE | 2019-03-20 19:32 | ER Document Report ---
ED Medical Screen (RME) - General Chief Complaint: Breathing Difficulty Stated Complaint: CONGESTION Time Seen by Provider: 03/20/19 19:25 Primary Care Provider: GIANCARLO CHANCE MD [Primary Care Provider] - Follow up as needed TRAVEL OUTSIDE OF THE [place] IN LAST 30 DAYS: No COUNTRY TRAVELED TO/FROM: [facility] - [facility] Notes: 03/20/19 19:29 Patient is a 33-year-old male with a history of asthma well-known to the ED who presents complaining of cough, wheeze, shortness of breath has been ongoing for the past 1 to 2 days. Patient was found to have an 88% oxygen saturation on room air. He was placed on oxygen at that time. He otherwise has been able to eat and drink without difficulty. He has been using his inhaler. No other concerns or complaints. Denies LACKEY, fever, neck pain, URI, CP, Abd pain, dysuria, back pain, or rash. Patient has been placed on 2 L O2 via NC. I have treated and performed a rapid initial assessment of this patient. A comprehensive ED assessment and evaluation of the patient, analysis of test results and completion of medical decision making process will be conducted by additional ED providers. PHYSICAL EXAMINATION: LUNGS: + wheezing R>L. HEART: Regular rate and rhythm without murmurs, rubs, gallops. Extremities: No cyanosis, clubbing, or edema b/l. NEUROLOGICAL: Normal speech, normal gait. PSYCH: Normal mood, normal affect. - Related Data Allergies/Adverse Reactions: No Known Allergies Allergy (Verified 03/20/19 18:21) Past Medical History - Social History Chew tobacco use (# tins/day): No Frequency of alcohol use: None Drug Abuse: None Family history: Reviewed & Not Pertinent Pulmonary Medical History: Reports: Hx Asthma Renal/ Medical History: Denies: Hx Peritoneal Dialysis GI Medical History: Reports: Hx Irritable Bowel - constipation Musculoskeltal Medical History: Reports Hx Arthritis, Reports Hx Musculoskeletal Trauma Psychiatric Medical History: Reports: Hx Anxiety, Hx Bipolar Disorder, Hx Depression, Hx Personality Disorder, Hx Schizoaffective Disorder, Hx Janene izophrenia Past Surgical History: Reports: Hx Abdominal Surgery, Hx Appendectomy, Hx Cholecystectomy. Denies: Hx Orthopedic Surgery - fractured finger - Immunizations Immunizations up to date: Yes Hx Diphtheria, Pertussis, Tetanus Vaccination: Yes - 2012 Physical Exam - Vital signs Vitals: Temp Pulse Resp BP Pulse Ox 99.4 F 107 H 18 108/68 88 L 03/20/19 18:14 03/20/19 18:14 03/20/19 18:14 03/20/19 18:14 03/20/19 18:14 Course - Vital Signs Vital signs: Temp Pulse Resp BP Pulse Ox 99.4 F 107 H 18 108/68 88 L 03/20/19 18:14 03/20/19 18:14 03/20/19 18:14 03/20/19 18:14 03/20/19 18:14 Doctor's Discharge - Discharge Referrals: GIANCARLO CHANCE MD [Primary Care Provider] - Follow up as needed
[2019-03-20 20:38] LABS: ABSOLUTE BASOPHILS # (AUTO) 0.1 10^3/uL (0.0-0.2); ABSOLUTE EOSINOPHILS # (AUTO) 0.4 10^3/uL (0.0-0.6); ABSOLUTE LYMPHOCYTES (AUTO) 1.1 10^3/uL (0.5-4.7); ABSOLUTE MONOCYTES (AUTO) 0.5 10^3/uL (0.1-1.4); ABSOLUTE NEUT (AUTO) 2.4 10^3/uL (1.7-8.2); BASOPHILS % (AUTO) 1.3 % (0-2); HEMATOCRIT 41.8 % (37.9-51.0); HEMOGLOBIN 13.8 g/dL (13.5-17.0); LYMPHOCYTES % (AUTO) 24.8 % (13-45); MEAN CORPUSCULAR HEMOGLOBIN 26.8 pg (27.0-33.4); MEAN CORPUSCULAR HGB CONC 32.9 g/dL (32.0-36.0); MEAN CORPUSCULAR VOLUME 81 fl (80-97); MONOCYTES % (AUTO) 10.7 % (3-13); PLATELET COUNT 237 10^3/uL (150-450); RED BLOOD COUNT 5.13 10^6/uL (4.35-5.55); RED CELL DISTRIBUTION WIDTH 13.5 % (11.5-14.0); SEGMENTED NEUTROPHILS % (AUTO) 54.2 % (42-78); TOTAL CELLS COUNTED % (AUTO) 100 %; WHITE BLOOD COUNT 4.4 10^3/uL (4.0-10.5)
[2019-03-20 20:40] LABS: VENOUS BLOOD BASE EXCESS 4.9 mmol/L; VENOUS BLOOD HCO3 33.2 mmol/L (20-32); VENOUS BLOOD PH 7.33 (7.30-7.42)
[2019-03-20 20:58] LABS: ALANINE AMINOTRANSFERASE 21 U/L (21-72); ALBUMIN 4.2 g/dL (3.5-5.0); ALKALINE PHOSPHATASE 74 U/L (38-126); ANION GAP 5 (5-19); ASPARTATE AMINO TRANSFERASE 26 U/L (17-59); BILIRUBIN,DIRECT 0.2 mg/dL (0.0-0.4); BILIRUBIN,TOTAL 1.2 mg/dL (0.2-1.3); BLOOD UREA NITROGEN 15 mg/dL (7-20); CALCIUM 9.6 mg/dL (8.4-10.2); CARBON DIOXIDE 34 mmol/L (22-30); CHLORIDE 104 mmol/L (98-107); GLUCOSE 78 mg/dL (75-110); POTASSIUM 4.3 mmol/L (3.6-5.0); TOTAL PROTEIN 6.8 g/dL (6.3-8.2)
--- NOTE | 2019-03-20 21:10 | RADIOLOGY REPORT (SQ) ---
EXAM DESCRIPTION: [facility]: XR CHEST 2 VIEWS Views: 2 CLINICAL HISTORY: 33 years Male, cough/wheeze COMPARISON: 02/19/2019 FINDINGS: The lungs are clear. No pneumothorax or significant pleural effusion. Cardiomediastinal silhouette is within normal limits. Bony structures are unremarkable for age. IMPRESSION: 1. No acute cardiothoracic abnormality.
[2019-03-20] MEDS ORDERED: ALBUTEROL SULFATE 0.083% NEB 2.5 MG/3 ML AMPUL NEB ONE (22:18)
--- NOTE | 2019-03-20 22:25 | ER Document Report ---
ED General - General Chief Complaint: Breathing Difficulty Stated Complaint: CONGESTION Time Seen by Provider: 03/20/19 19:25 Primary Care Provider: GIANCARLO CHANCE MD [Primary Care Provider] - Follow up as needed TRAVEL OUTSIDE OF THE [place] IN LAST 30 DAYS: No COUNTRY TRAVELED TO/FROM: [facility] - [facility] Notes: Patient is a 33 yo male that presents to the emergency department for chief complaint of shortness of breath. Patient is sleeping and does not wish to speak with me. He tells me that I should "read his chart" to find out why he is in the emergency room. Patient is well-known to this emergency department for uncontrolled asthma. He is non compliant with medications. He was seen here this morning requesting an albuterol inhaler which he states he did get filled and has taken 4 times. Patient states he was still feeling short of breath and returned. He is homeless. Patient states that it is too late now for me to send him home nora use it must be 2 or 3 in the morning. It is currently 10:21 PM. HPI is limited because patient does not wish to communicate with me. Past Medical History: Asthma, medical noncompliance Past Surgical History: Reviewed in chart Social History: Reviewed in chart Family History: Reviewed and noncontributory for presenting illness Allergies: Reviewed, see documented allergy list. REVIEW OF SYSTEMS: CONSTITUTIONAL : No fever No chills No diaphoresis No recent illness EENT: No vision changes No congestion No sore throat CARDIOVASCULAR: No chest pain No palpitations RESPIRATORY: shortness of breath cough No difficulty breathing GASTROINTESTINAL: No abdominal pain No nausea No vomiting No diarrhea GENITOURINARY: No dysuria No hematuria No difficulty urinating MUSCULOSKELETAL: No back pain No leg pain No arm pain SKIN: No rashes No lesions LYMPHATIC: No swollen, enlarged glands. NEUROLOGICAL: No lightheadedness No headache No weakness No paresthesias PSYCHIATRIC: No anxiety No depression PHYSICAL EXAMINATION: Vital signs reviewed, nursing noted reviewed. GENERAL: Well-appearing, well-nourished and in no acute distress. HEAD: Atraumatic, normocephalic. EYES: Eyes appear normal, extraocular movements intact, sclera anicteric, conjunctiva are normal. ENT: nares patent, oropharynx clear without exudates. Moist mucous membranes. NECK: Normal range of motion, supple without lymphadenopathy LUNGS: Breath sounds have wheezing in all lung garcia to auscultation bilaterally and equal. No retractions or tachypnea HEART: Regular rate and rhythm without murmurs ABDOMEN: Soft, nontender, normoactive bowel sounds. No rebound, guarding, or rigidity. No masses appreciated. EXTREMITIES: Nontender, good range of motion, no pitting or edema. NEUROLOGICAL: No focal neurological deficits. Moves all extremities spontaneousl y Motor and sensory grossly intact on exam. PSYCH: Normal mood, normal affect. SKIN: Warm, Dry, normal turgor, no rashes or lesions noted on exposed skin - Related Data Allergies/Adverse Reactions: No Known Allergies Allergy (Verified 03/20/19 18:21) Past Medical History - Social History Smoking Status: Never Smoker Chew tobacco use (# tins/day): No Frequency of alcohol use: None Drug Abuse: None Family History: Reviewed & Not Pertinent Patient has suicidal ideation: No Patient has homicidal ideation: No Pulmonary Medical History: Reports: Hx Asthma Renal/ Medical History: Denies: Hx Peritoneal Dialysis GI Medical History: Reports: Hx Irritable Bowel - constipation Musculoskeletal Medical History: Reports Hx Arthritis, Reports Hx Musculoskeletal Trauma Psychiatric Medical History: Reports: Hx Anxiety, Hx Bipolar Disorder, Hx Depression, Hx Personality Disorder, Hx Schizoaffective Disorder, Hx Schizophrenia Past Surgical History: Reports: Hx Abdominal Surgery, Hx Appendectomy, Hx Cholecystectomy. Denies: Hx Orthopedic Surgery - fractured finger - Immunizations Immunizations up to date: Yes Hx Diphtheria, Pertussis, Tetanus Vaccination: Yes - 2012 Hx Pneumococcal Vaccination: 08/23/00 Physical Exam - Vital signs Vitals: Temp Pulse Resp BP Pulse Ox 99.4 F 107 H 18 108/68 88 L 03/20/19 18:14 03/20/19 18:14 03/20/19 18:14 03/20/19 18:14 03/20/19 18:14 Course - Re-evaluation Re-evalutation: 03/20/19 22:23 Vitals reviewed. Nursing notes reviewed. Patient was reportedly 89% on room air in triage. When I entered the room to speak with him he was not on nasal cannula oxygen and had an O2 saturation of 90. When I sat him up in bed and woke him up to speak with me he began oxygenating around 92 to 94% on room air. He does have wheezing bilaterally. He received 1 DuoNeb already and will be ordered more albuterol. Patient has received Solu-Medrol IV. His work-up today is unremarkable. Patient has no acidosis to suggest severe CO2 retention. Chest x-ray is unremarkable. Have requested patient be ambulated with pulse oximetry. Laboratory 03/20/19 03/20/19 03/20/19 19:55 19:55 19:55 WBC 4.4 RBC 5.13 Hgb 13.8 Hct 41.8 MCV 81 MCH 26.8 L MCHC 32.9 RDW 13.5 Plt Count 237 Seg Neutrophils % 54.2 Lymphocytes % 24.8 Monocytes % 10.7 Eosinophils % 9.0 H Basophils % 1.3 Absolute Neutrophils 2.4 Absolute Lymphocytes 1.1 Absolute Monocytes 0.5 Absolute Eosinophils 0.4 Absolute Basophils 0.1 VBG pH 7.33 VBG pCO2 65.0 H VBG HCO3 33.2 H VBG Base Excess 4.9 Sodium 143.1 Potassium 4.3 Chloride 104 Carbon Dioxide 34 H Anion Gap 5 BUN 15 Creatinine 1.02 Est GFR ( Amer) > 60 Est GFR (Non-Af Amer) > 60 Glucose 78 Calcium 9.6 Total Bilirubin 1.2 Direct Bilirubin 0.2 Neonat Total Bilirubin Not Reportable Neonat Direct Bilirubin Not Reportable Neonat Indirect Bili Not Reportable AST 26 ALT 21 Alkaline Phosphatase 74 Total Protein 6.8 Albumin 4.2 Chest X-Ray 03/20/19 19:27 IMPRESSION: 1. No acute cardiothoracic abnormality. 03/20/19 23:39 Patient ambulated in the emergency room and kept his O2 saturation above 94%. He was not in any respiratory distress with ambulation. Patient will continue taking his albuterol as previously prescribed. He states he is not currently on steroids and will be given a prescription for prednisone burst. Patient encouraged to follow with his primary care doctor. - Vital Signs Vital signs: Temp Pulse Resp BP Pulse Ox 99.4 F 107 H 18 108/68 88 L 03/20/19 18:14 03/20/19 18:14 03/20/19 18:14 03/20/19 18:14 03/20/19 18:14 - Laboratory Result Diagrams: 03/20/19 19:55 03/20/19 19:55 Laboratory results interpreted by me: 07/29/19 07/29/19 07/29/19 19:55 19:55 19:55 MCH 26.8 L Eosinophils % 9.0 H VBG pCO2 65.0 H VBG HCO3 33.2 H Carbon Dioxide 34 H Discharge - Discharge Clinical Impression: Asthma exacerbation Qualifiers: Asthma severity: moderate Asthma persistence: persistent Qualified Code(s): J45.41 - Moderate persistent asthma with (acute) exacerbation Condition: Stable Disposition: HOME, SELF-CARE Instructions: Asthma ([facility]) Additional Instructions: Please return to the emergency department if you have any worsening, or concern of your symptoms. Please return to the emergency department if you develop chest pain, difficulty breathing, severe abdominal pain, or ongoing vomiting. Please follow-up with your primary care physician in 2-3 days and any other recommended physicians. If prescribed, take all medications as directed. If you have any questions or concerns do not hesitate to return the emergency department for evaluation. Begin taking your prednisone prescription tomorrow Use your albuterol inhaler with spacer 2 puffs every 4 hours for wheezing and shortness of breath Prescriptions: Prednisone [Deltasone 20 mg Tablet] 2 tab PO DAILY 5 Days tablet Referrals: GIANCARLO CHANCE MD [Primary Care Provider] - Follow up in 3-5 days
[2019-03-20 23:40] VITALS: BP 116/78
== END 2019-03-20 23:48 | disposition home or self-care (01) ==
LOC: ER 18:01
DX: J45.41 Moderate persistent asthma with (acute) exacerbation (principal); Z90.49 Acquired absence of other specified parts of digestive tract; Z59.0 Homelessness
CPT/HCPCS: 94640 ×2; 99285; 96374; 36415; 85025; 80053; 82803; 71046; J2930; J7620

== ENCOUNTER 2019-03-25 05:08 | Emergency (ER) | payer MEDICAID ==
[2019-03-25 05:20] VITALS: BP 98/68
[2019-03-25] MEDS ORDERED: ALBUTEROL SULFATE 0.083% NEB 2.5 MG/3 ML AMPUL NEB ONE ×2 (06:43→06:48)
[2019-03-25] MEDS ORDERED: IPRATROPIUM/ALBUTEROL 0.5-2.5 MG/3 ML AMPUL NEB ONE (06:48)
[2019-03-25] MEDS ORDERED: ALBUTEROL SULFATE HFA (90 MCG/PUFF) 8 GM MDI (1 MDI/ER DISP) IH ONE (09:20)
--- NOTE | 2019-03-25 09:20 | ER Document Report ---
ED General - General Chief Complaint: Cough Stated Complaint: TROUBLE BREATHING Time Seen by Provider: 03/25/19 09:12 Primary Care Provider: GIANCARLO CHANCE MD [Primary Care Provider] - Follow up as needed Notes: 33-year-old male with a strong history of asthma presents the emergency department stating that he lost his inhaler and would like refill. States he was seen here earlier today and given an inhaler but he lost it. Denies any new symptoms, states that his wheezing is at its baseline, no new cough, no new shortness of breath, no new fever. TRAVEL OUTSIDE OF THE [place] IN LAST 30 DAYS: No COUNTRY TRAVELED TO/FROM: [facility] - Related Data Allergies/Adverse Reactions: No Known Allergies Allergy (Verified 03/24/19 10:08) Past Medical History - General Information source: Patient - Social History Smoking Status: Never Smoker Chew tobacco use (# tins/day): No Frequency of alcohol use: Social Drug Abuse: None Family History: Reviewed & Not Pertinent Patient has suicidal ideation: No Patient has homicidal ideation: No Pulmonary Medical History: Reports: Hx Asthma Renal/ Medical History: Denies: Hx Peritoneal Dialysis GI Medical History: Reports: Hx Irritable Bowel - constipation Musculoskeletal Medical History: Reports Hx Arthritis, Reports Hx Musculoskeletal Trauma Psychiatric Medical History: Reports: Hx Anxiety, Hx Bipolar Disorder, Hx Depression, Hx Personality Disorder, Hx Schizoaffective Disorder, Hx Schizophrenia Past Surgical History: Reports: Hx Abdominal Surgery, Hx Appendectomy, Hx Cholecystectomy. Denies: Hx Orthopedic Surgery - fractured finger - Immunizations Immunizations up to date: Yes Hx Diphtheria, Pertussis, Tetanus Vaccination: Yes - 2012 Hx Pneumococcal Vaccination: 08/23/00 Review of Systems - Review of Systems Constitutional: No symptoms reported EENT: No symptoms reported Cardiovascular: No symptoms reported Respiratory: See HPI - Wheeze at baseline. Gastrointestinal: No symptoms reported Physical Exam - Vital signs Vitals: Temp Pulse Resp BP Pulse Ox 98.5 F 88 20 98/68 L 92 03/25/19 05:19 03/25/19 05:19 03/25/19 05:19 03/25/19 05:19 03/25/19 05:19 Interpretation: Normal - General General appearance: Appears well, Alert - HEENT Head: Normocephalic, Atraumatic Eyes: Normal Pupils: PERRL - Respiratory Respiratory status: No respiratory distress Breath sounds: Wheezing - Very mild expiratory wheezing. - Cardiovascular Rhythm: Regular Heart sounds: Normal auscultation Murmur: No - Skin Skin Temperature: Warm Skin Moisture: Dry Skin Color: Normal Course - Re-evaluation Re-evalutation: 03/25/19 09:19 Patient will be given an inhaler here. No indication for further testing. Discharged home. - Vital Signs Vital signs: Temp Pulse Resp BP Pulse Ox 98.5 F 88 20 98/68 L 92 03/25/19 05:19 03/25/19 05:19 03/25/19 05:19 03/25/19 05:19 03/25/19 05:19 Discharge - Discharge Clinical Impression: Medication refill Reactive airway disease Qualifiers: Asthma severity: moderate Asthma persistence: persistent Asthma complication type: uncomplicated Qualified Code(s): J45.40 - Moderate persistent asthma, uncomplicated Condition: Stable Disposition: HOME, SELF-CARE Prescriptions: Albuterol Sulfate [Proair HFA Inhalation Aerosol 8.5 gm MDI] 2 puff IH Q4H PRN #1 mdi PRN Reason: Referrals: GIANCARLO CHANCE MD [Primary Care Provider] - Follow up as needed
== END 2019-03-25 09:34 | disposition home or self-care (01) ==
LOC: ER 05:08
DX: J45.40 Moderate persistent asthma, uncomplicated (principal); Z76.0 Encounter for issue of repeat prescription
CPT/HCPCS: 94640 ×2; 99281; J3490; J7620

== ENCOUNTER 2019-03-28 00:24 | Emergency (ER) | payer MEDICAID ==
[2019-03-28] MEDS ORDERED: IPRATROPIUM/ALBUTEROL 0.5-2.5 MG/3 ML AMPUL NEB ONE ×3 (03:16→03:50)
--- NOTE | 2019-03-28 03:51 | ER Document Report ---
HPI - HPI Time Seen by Provider: 03/28/19 03:33 Pain Level: Denies Context: Patient is a 33-year-old male with a history of asthma that comes to emergency department for chief complaint of coughing and wheezing. Just outside emergency department patient coughed until he threw up some phlegm. He denies fever. He states he is using his home inhaler and it works to some degree but he still had some wheezing today. He denies any other complaints, states he feels much better after he threw up the phlegm. - RESPIRATORY Respiratory: REPORTS: Trouble Breathing, Coughing - REPRODUCTIVE Reproductive: DENIES: : Past Medical History - General Information source: Patient - Social History Smoking Status: Never Smoker Frequency of alcohol use: None Drug Abuse: None Lives with: Alone Family History: Reviewed & Not Pertinent Patient has suicidal ideation: No Patient has homicidal ideation: No Pulmonary Medical History: Reports: Hx Asthma Renal/ Medical History: Denies: Hx Peritoneal Dialysis GI Medical History: Reports: Hx Irritable Bowel - constipation Musculoskeletal Medical History: Reports Hx Arthritis, Reports Hx Musculoskeletal Trauma Psychiatric Medical History: Reports: Hx Anxiety, Hx Bipolar Disorder, Hx Depression, Hx Personality Disorder, Hx Schizoaffective Disorder, Hx Schizophrenia Past Surgical History: Reports: Hx Abdominal Surgery, Hx Appendectomy, Hx Cholecystectomy. Denies: Hx Orthopedic Surgery - fractured finger - Immunizations Immunizations up to date: Yes Hx Diphtheria, Pertussis, Tetanus Vaccination: Yes - 2012 Hx Pneumococcal Vaccination: 08/23/00 Vertical Provider Document - CONSTITUTIONAL General Appearance: WD/WN, No Apparent Distress - Sleeping but easily aroused - INFECTION CONTROL TRAVEL OUTSIDE OF THE [place] IN LAST 30 DAYS: No COUNTRY TRAVELED TO/FROM: [place] - HEENT HEENT: Atraumatic, Normal ENT Exam, Normocephalic - NECK Neck: Normal Inspection - RESPIRATORY Respiratory: Other - Few scattered expiratory wheezes, occasional cough, otherwise clear lungs. No respiratory distress or labored breathing - CARDIOVASCULAR Cardiovascular: Regular Rate, Regular Rhythm - GI/ABDOMEN Gastrointestinal: Abdomen Soft, Abdomen Non-Tender - BACK Back: Normal Inspection - MUSCULOSKELETAL/EXTREMETIES Musculoskeletal/Extremeties: MAEW, FROM, Non-Tender - NEURO Level of Consciousness: Awake, Alert, Appropriate Motor/Sensory: No Motor Deficit, No Sensory Deficit - DERM Integumentary: Warm, Dry, No Rash Course - Re-evaluation Re-evalutation: Patient with a few scattered wheezes and occasional coughing initially. Initial oxygen saturation 94%. No fever, no distress. Patient with resolution of symptoms after nebs. Oxygen saturation 98% on room air. Still no distress. Provided him with an inhaler on request. Discussed follow-up and return precautions. Patient has been on prednisone frequently this year, because of his very mild exacerbation this was not provided this time and will be saved for a worse exacerbation. Patient states understanding and agreement. Stable at time of discharge. - Vital Signs Vital signs: Temp Pulse Resp BP Pulse Ox 98.7 F 76 19 130/79 H 94 03/28/19 01:09 03/28/19 01:09 03/28/19 01:09 03/28/19 01:09 03/28/19 01:09 Discharge - Discharge Clinical Impression: Wheezing, Cough Condition: Stable Disposition: HOME, SELF-CARE Additional Instructions: Use the inhaler with your spacer as prescribed if needed. Follow-up with primary care. Come back if you are worse including difficulty breathing, fever, or any other concerning symptoms. Referrals: GIANCARLO CHANCE MD [Primary Care Provider] - Follow up as needed
[2019-03-28] MEDS ORDERED: ALBUTEROL SULFATE HFA (90 MCG/PUFF) 8 GM MDI (1 MDI/ER DISP) IH ONE (05:10)
[2019-03-28 05:58] VITALS: BP 105/61
== END 2019-03-28 05:42 | disposition home or self-care (01) ==
LOC: ER 00:24
DX: J45.909 Unspecified asthma, uncomplicated (principal); R05 Cough
CPT/HCPCS: 94640 ×2; 99284; J3490; J7620

== ENCOUNTER 2019-03-30 06:11 | Emergency (ER) | payer MEDICAID ==
[2019-03-30] MEDS ORDERED: PREDNISONE 20 MG TABLET PO ONE (06:34)
[2019-03-30] MEDS ORDERED: IPRATROPIUM/ALBUTEROL 0.5-2.5 MG/3 ML AMPUL NEB ONE (06:34)
--- NOTE | 2019-03-30 06:36 | ER Document Report ---
ED Respiratory Problem - General Chief Complaint: Breathing Difficulty Stated Complaint: COUGHING AND WHEEZING Time Seen by Provider: 03/30/19 06:31 Primary Care Provider: GIANCARLO CHANCE MD [Primary Care Provider] - 03/30/19 Notes: Patient is a 33-year-old male with a history of asthma that comes emergency department with chief complaint of wheezing and coughing. He states he was feeling fine after he was evaluated and treated by me yesterday until this morning he started having wheezing and coughing. He denies fever. He is using his home inhaler. He is not currently on any steroids. He denies any other complaints. TRAVEL OUTSIDE OF THE [place] IN LAST 30 DAYS: No COUNTRY TRAVELED TO/FROM: [facility] - Related Data Allergies/Adverse Reactions: No Known Allergies Allergy (Verified 03/24/19 10:08) Past Medical History - General Information source: Patient - Social History Smoking Status: Never Smoker Frequency of alcohol use: None Drug Abuse: None Lives with: Alone Family History: Reviewed & Not Pertinent Pulmonary Medical History: Reports: Hx Asthma Renal/ Medical History: Denies: Hx Peritoneal Dialysis GI Medical History: Reports: Hx Irritable Bowel - constipation Musculoskeletal Medical History: Reports Hx Arthritis, Reports Hx Musculoskeletal Trauma Psychiatric Medical History: Reports: Hx Anxiety, Hx Bipolar Disorder, Hx Depression, Hx Personality Disorder, Hx Schizoaffective Disorder, Hx Schizophrenia Past Surgical History: Reports: Hx Abdominal Surgery, Hx Appendectomy, Hx Cholecystectomy. Denies: Hx Orthopedic Surgery - fractured finger - Immunizations Immunizations up to date: Yes Hx Diphtheria, Pertussis, Tetanus Vaccination: Yes - 2012 Hx Pneumococcal Vaccination: 08/23/00 Review of Systems - Review of Systems Constitutional: No symptoms reported EENT: No symptoms reported Cardiovascular: No symptoms reported Respiratory: See HPI Gastrointestinal: No symptoms reported Genitourinary: No symptoms reported Male Genitourinary: No symptoms reported Musculoskeletal: No symptoms reported Skin: No symptoms reported Hematologic/Lymphatic: No symptoms reported Neurological/Psychological: No symptoms reported Physical Exam - Vital signs Vitals: Temp Pulse Resp BP Pulse Ox 97.9 F 89 20 111/73 93 03/30/19 06:22 03/30/19 06:22 03/30/19 06:22 03/30/19 06:22 03/30/19 06:22 - Notes Notes: GENERAL: Alert, interacts well. No acute distress. HEAD: Normocephalic, atraumatic. EYES: Pupils equal, round, and reactive to light. Extraocular movements intact. ENT: Oral mucosa moist, tongue midline. Oropharynx unremarkable. Airway patent. Nares patent, no nasal septal hematoma, LUNGS: Occasional bronchospasm cough, expiratory wheezes throughout, no rales or rhonchi. No tachypnea or labored breathing. HEART: Regular rate and rhythm. No murmur ABDOMEN: Soft, non-tender. Non-distended. EXTREMITIES: Moves all 4 extremities spontaneously. No edema, normal radial and dorsalis pedis pulses bilaterally. No cyanosis. BACK: no cervical, thoracic, lumbar midline tenderness. No saddle anesthesia, normal distal neurovascular exam. NEUROLOGICAL: Alert and oriented x3. Normal speech. Cranial nerves II through XII grossly intact. PSYCH: Smiling and conversational SKIN: Warm, dry, normal turgor. No rashes or lesions noted. Course - Re-evaluation Re-evalutation: On initial evaluation patient has bronchospasm and wheezing on expiration. He still does not have tachypnea or respiratory distress however. Initial oxygen was borderline at 93% on room air. He has no fever. Initially patient was excepting only DuoNeb's as intervention but then he did agree to redness on when I talked him into it. After DuoNeb's he was reevaluated, lungs are clear, no bronchospasm, no current complaints. Patient is requesting to be discharged, he states that he has decided that he wants to get a nebulizer for home, he states that he is going to go see Dr. Chance now with his office opening at 8 and he is going straight there. Because of patient symptom resolution he will be discharged. Because of re-exacerbation after I saw him previously I did prescribe and recommend prednisone. Discussed return precautions. Patient states understanding and agreement. - Vital Signs Vital signs: Temp Pulse Resp BP Pulse Ox 97.9 F 89 20 111/73 93 03/30/19 06:22 03/30/19 06:22 03/30/19 06:22 03/30/19 06:22 03/30/19 06:22 Discharge - Discharge Clinical Impression: Wheezing Asthma exacerbation Qualifiers: Asthma severity: mild Asthma persistence: intermittent Qualified Code(s): J45.21 - Mild intermittent asthma with (acute) exacerbation Condition: Stable Disposition: HOME, SELF-CARE Additional Instructions: Take the prednisone as prescribed. Continue your inhaler. Please follow-up closely with your primary care provider for additional treatment, discuss possible home nebulizer machine. Return if you worsen including fever, return to difficulty breathing, or any other concerning symptoms. Prescriptions: Prednisone [Deltasone 20 mg Tablet] 3 tab PO DAILY 5 Days #15 tablet Referrals: GIANCARLO CHANCE MD [Primary Care Provider] - 03/30/19
[2019-03-30 09:20] VITALS: BP 105/71
== END 2019-03-30 09:20 | disposition home or self-care (01) ==
LOC: ER 06:11
DX: J45.21 Mild intermittent asthma with (acute) exacerbation (principal); R05 Cough
CPT/HCPCS: 94640; 99284; J7512; J7620

== ENCOUNTER 2019-04-01 07:08 | Emergency (ER) | payer MEDICAID ==
--- NOTE | 2019-04-01 08:42 | ER Document Report ---
HPI - HPI Patient complains to provider of: medication refill Time Seen by Provider: 04/01/19 08:40 Onset: This morning Onset/Duration: Gradual Quality of pain: No pain Severity: Mild Pain Level: 0 Context: 33-year-old male with a history of asthma well-known to the ER here requesting a refill of his albuterol inhaler. He states he ran out yesterday. He is still on a short course of steroids for his acute asthma exacerbation. He states his breathing has improved with the prednisone however he still requires his inhaler. he isn't on any other asthma meds. He did try to call his PCP, Dr. Chance, however the office states he is out of town on vacation this week so they told him to come here to get his albuterol inhaler refilled. He denies any other symptoms at this time. denies smoking. Similar symptoms previously: Yes Recently seen / treated by doctor: Yes - ROS Systems Reviewed and Negative: Yes All other systems reviewed and negative - to include 10 systems, unless mentioned in the hpi - REPRODUCTIVE Reproductive: DENIES: : Past Medical History - General Information source: Patient - Social History Smoking Status: Never Smoker - complains of second hand smoke exposure chronically however. Frequency of alcohol use: None Drug Abuse: None Family History: Reviewed & Not Pertinent Patient has suicidal ideation: No Patient has homicidal ideation: No Pulmonary Medical History: Reports: Hx Asthma - not on home O2 Endocrine Medical History: Denies: Hx Diabetes Mellitus Type 1, Hx Diabetes Mellitus Type 2 Renal/ Medical History: Denies: Hx Peritoneal Dialysis GI Medical History: Reports: Hx Irritable Bowel - constipation Musculoskeletal Medical History: Reports Hx Arthritis, Reports Hx Musculoskeletal Trauma Psychiatric Medical History: Reports: Hx Anxiety, Hx Bipolar Disorder, Hx Depression, Hx Personality Disorder, Hx Schizoaffective Disorder, Hx Schizophrenia Past Surgical History: Reports: Hx Abdominal Surgery, Hx Appendectomy, Hx Cholecystectomy. Denies: Hx Orthopedic Surgery - fractured finger - Immunizations Immunizations up to date: Yes Hx Diphtheria, Pertussis, Tetanus Vaccination: Yes - 2012 Hx Pneumococcal Vaccination: 08/23/00 Vertical Provider Document - CONSTITUTIONAL Notes: >>>> PHYSICAL_EXAM: GENERAL_APPEARANCE: well_nourished, alert, cooperative, no_acute_distress, no_obvious_discomfort. pleasant, young, thin, black male, asleep when I enter the room, easily awakens to voice, smiling, speaking in full sentences, in no sign of pain or resp distress, no one is with him VITALS: reviewed, see vital signs table. HEAD: no_swelling\tenderness on the head. normocephalic. atraumatic. no thompson signs. no raccoons eyes. EYES: PERRL, EOMI, conjunctiva_clear. NOSE: no_nasal_discharge. MOUTH: (-)decreased moisture. THROAT: no_tonsilar_inflammation, no_airway_obstruction. no_lymphadenopathy NECK: supple, no_neck_tenderness, full rom. full strength. no jvd. no meningeal signs. BACK: no_back_tenderness. CHEST_WALL: no_chest_tenderness. no overlying skin changes LUNGS: Mild diffuse expiratory wheezes (-)accessory muscle use, good air exchange bilateral. HEART: normal_rate, normal_rhythm, ABDOMEN: normal_BS, soft, no_abd_tenderness, (-)guarding, (-)rebound, no distension or peritoneal signs. no cva ttp EXTREMITIES: strength 5/5 in all_extremities, good pulses in all_extremities, no_swelling\tenderness in the extremities, no_edema. full rom. normal gait. good pulses. brisk cap refill. 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 neg salma sign NEURO: motor and sensation intact, cranial nerves 2-12 intact, SKIN: warm, dry, good_color, no_rash. MENTAL_STATUS: speech_clear, oriented_X_3, normal_affect, responds_appropriately to questions. - INFECTION CONTROL TRAVEL OUTSIDE OF THE [place] IN LAST 30 DAYS: No COUNTRY TRAVELED TO/FROM: [facility] Course - Re-evaluation Re-evalutation: 04/01/19 08:54 Pt here requesting a refill of albuterol inhaler. He did have slight wheezing on exam and was given a DuoNeb here with improvement of lung sounds on recheck. We will discharge him with an inhaler. He can continue to take his prednisone as previously prescribed. advised to f/u with pcp/pulm in 1-2 days. return for any worsening symptoms. vss. well appearing. satting well on ra. neurononfocal. pt understands and agrees to plan. On reexam, pt improved with tx listed. remained stable. nontoxic. well appearing. pain controlled. tolerating po. requesting to go home. lung sounds improved. Documentation achieved through voice recording which my lead to some occasional accidental typographical errors. Extensive efforts have been made to proof read documentation to make sure these are the least as possible. Category Date Time Status Ipratropium/Albuterol Sulfate [Duoneb 3 ml Ampul] Med 04/01/19 08:49 Once 3 ml NEB NOW ONE Nebulizer Therapy Routine [RESPCARE] NOW Ther 04/01/19 08:49 Ordered - Vital Signs Vital signs: Temp Pulse Resp BP Pulse Ox 97.3 F 66 20 126/73 H 96 04/01/19 07:09 04/01/19 07:09 04/01/19 07:09 04/01/19 07:09 04/01/19 07:09 Discharge - Discharge Clinical Impression: Medication refill, Wheezing Asthma Qualifiers: Asthma severity: mild Asthma persistence: intermittent Asthma complication type: uncomplicated Qualified Code(s): J45.20 - Mild intermittent asthma, uncomplicated Condition: Good Disposition: HOME, SELF-CARE Instructions: Asthma ([facility]) Additional Instructions: Follow-up with PCP/pulm 1 to 2 days. Return for any worsening symptoms. continue to take your prednisone as prescribed. use the inhaler as prescribed. Prescriptions: Albuterol Sulfate [Albuterol Sulfate Hfa] 1 puff IH Q4 PRN #1 [email or web address] PRN Reason: For Wheezing Referrals: GIANCARLO CHANCE MD [Primary Care Provider] - Follow up as needed
[2019-04-01] MEDS ORDERED: IPRATROPIUM/ALBUTEROL 0.5-2.5 MG/3 ML AMPUL NEB ONE (08:49)
[2019-04-01 09:53] VITALS: BP 126/70
== END 2019-04-01 09:53 | disposition home or self-care (01) ==
LOC: ER 07:08
DX: J45.20 Mild intermittent asthma, uncomplicated (principal); Z90.49 Acquired absence of other specified parts of digestive tract
CPT/HCPCS: 94640; 99281; J7620

== ENCOUNTER 2019-04-02 19:14 | Emergency (ER) | payer MEDICAID ==
[2019-04-02 19:20] VITALS: BP 143/82
== END 2019-04-02 22:44 | disposition left against medical advice (07) ==
LOC: ER 19:14
DX: Z53.21 Procedure and treatment not carried out due to patient leaving prior to being seen by health care provider (principal); R05 Cough

== ENCOUNTER 2019-04-02 23:52 | Emergency (ER) | payer MEDICAID ==
[2019-04-03] MEDS ORDERED: ALBUTEROL SULFATE HFA (90 MCG/PUFF) 8 GM MDI (1 MDI/ER DISP) IH ONE (01:19)
--- NOTE | 2019-04-03 01:24 | ER Document Report ---
HPI - HPI Patient complains to provider of: not feeling right Time Seen by Provider: 04/03/19 00:43 Pain Level: Denies Context: 33-year-old male with schizophrenia and mild persistent asthma presents to the emergency department with chief complaint of "not feeling right". Patient states that "the inhaler they gave me is too strong and is is making me jittery and I think I need a new one". Patient denies any acute respiratory distress, denies any acute anxiety, denies palpitations, denies fast heart rate, denies any other symptoms. His only concern is the type of inhaler. Patient states he called poison control and said that they "spoke to me not medical but said that it was probably too strong". No other complaints. - REPRODUCTIVE Reproductive: DENIES: : Past Medical History - Social History Smoking Status: Unknown if Ever Smoked Family History: Reviewed & Not Pertinent Pulmonary Medical History: Reports: Hx Asthma - not on home O2 Endocrine Medical History: Denies: Hx Diabetes Mellitus Type 1, Hx Diabetes Mellitus Type 2 Renal/ Medical History: Denies: Hx Peritoneal Dialysis GI Medical History: Reports: Hx Irritable Bowel - constipation Musculoskeletal Medical History: Reports Hx Arthritis, Reports Hx Musculoskeletal Trauma Psychiatric Medical History: Reports: Hx Anxiety, Hx Bipolar Disorder, Hx Depression, Hx Personality Disorder, Hx Schizoaffective Disorder, Hx Schizophrenia Past Surgical History: Reports: Hx Abdominal Surgery, Hx Appendectomy, Hx Cholecystectomy. Denies: Hx Orthopedic Surgery - fractured finger - Immunizations Immunizations up to date: Yes Hx Diphtheria, Pertussis, Tetanus Vaccination: Yes - 2012 Hx Pneumococcal Vaccination: 08/23/00 Vertical Provider Document - CONSTITUTIONAL Notes: PHYSICAL EXAMINATION: Reviewed vital signs and charting by RN GENERAL: Alert, interacts well. No acute distress. HEAD: Normocephalic, atraumatic. EYES: Pupils equal and round. Extraocular movements intact. ENT: Oral mucosa moist, tongue midline. NECK: Full range of motion. Trachea midline. LUNGS: Clear to auscultation bilaterally, no wheezes, rales, or rhonchi. No respiratory distress. HEART: Regular rate and rhythm. No murmur EXTREMITIES: Moves all 4 extremities spontaneously. No edema, No cyanosis. PSYCH: Normal affect, normal mood. SKIN: Warm, dry, normal turgor. No rashes or lesions noted. - INFECTION CONTROL TRAVEL OUTSIDE OF THE [place] IN LAST 30 DAYS: No COUNTRY TRAVELED TO/FROM: [facility] Course - Re-evaluation Re-evalutation: 04/03/19 01:22 Patient overall well-appearing in no acute distress. No inspiratory or expiratory wheezing on exam. No respiratory distress. Patient's only concern is that he feels like he is having an adverse reaction to his inhaler and is requesting the blue pro-air inhaler. Patient called poison control and did not seem to get a satisfactory answer from them. Patient is not in extremis and is stable for discharge. I will refill his inhaler at this time. - Vital Signs Vital signs: Temp Pulse Resp BP Pulse Ox 98.5 F 49 L 17 153/88 H 100 04/03/19 00:15 04/03/19 00:15 04/03/19 00:15 04/03/19 00:15 04/03/19 00:15 Discharge - Discharge Clinical Impression: Not feeling great Condition: Good Disposition: HOME, SELF-CARE Additional Instructions: You were seen in the emergency department this morning for not feeling great. We have given you a different type of inhaler that you can try to use and hopefully it does not make you feel jittery. Please only take 2 to 4 puffs every 4-6 hours as needed if you are starting to get wheezy. Please return to the emergency department if you develop acute shortness of breath, chest pain, r apid heart rate, or you have any other concerning symptoms. Referrals: GIANCARLO CHANCE MD [Primary Care Provider] - Follow up as needed
[2019-04-03 01:54] VITALS: BP 130/75
== END 2019-04-03 01:54 | disposition home or self-care (01) ==
LOC: ER 23:52
DX: R68.89 Other general symptoms and signs (principal); J45.909 Unspecified asthma, uncomplicated; F20.9 Schizophrenia, unspecified; Z99.81 Dependence on supplemental oxygen
CPT/HCPCS: 99281; J3490

== ENCOUNTER 2019-04-03 06:19 | Emergency (ER) | payer MEDICAID ==
[2019-04-03] MEDS ORDERED: SIMETHICONE 80 MG TAB.CHEW PO ONE (08:18)
[2019-04-03] MEDS ORDERED: LIDOCAINE 2% VISCOUS SOLN 20 ML UDCUP PO ONE (08:19)
[2019-04-03] MEDS ORDERED: MAG HYDROX/AL HYDROX/SIMETH SUSP 30 ML UDCUP PO ONE (08:19)
--- NOTE | 2019-04-03 08:20 | ER Document Report ---
ED GI/ - General Chief Complaint: Epigastric Pain Stated Complaint: COUGH Time Seen by Provider: 04/03/19 08:09 Primary Care Provider: GIANCARLO CHANCE MD [Primary Care Provider] - Follow up as needed Mode of Arrival: Ambulatory Information source: Patient Notes: Patient presents complaining of epigastric pain and frequent belching. Patient has a history of asthma and read the side effect profile the medication is concerned that his medicine may be causing his symptoms. Patient without any cough cold symptoms vomiting or diarrhea. Patient without any fever. TRAVEL OUTSIDE OF THE [place] IN LAST 30 DAYS: No - HPI Patient complains to provider of: Abdominal pain Onset: This morning Timing/Duration: Persistent Quality of pain: Achy Pain Level: 2 Location: Epigastric Associated symptoms: denies: Chest pain, Diarrhea, Fever, Nausea Exacerbated by: Denies Relieved by: Denies Similar symptoms previously: Yes Recently seen / treated by doctor: No - Related Data Allergies/Adverse Reactions: No Known Allergies Allergy (Verified 03/24/19 10:08) Past Medical History - General Information source: Patient - Social History Smoking Status: Never Smoker Frequency of alcohol use: None Drug Abuse: None Lives with: Homeless Family History: Reviewed & Not Pertinent Pulmonary Medical History: Reports: Hx Asthma - not on home O2 Endocrine Medical History: Denies: Hx Diabetes Mellitus Type 1, Hx Diabetes Mellitus Type 2 Renal/ Medical History: Denies: Hx Peritoneal Dialysis GI Medical History: Reports: Hx Irritable Bowel - constipation Musculoskeletal Medical History: Reports Hx Arthritis, Reports Hx Musculoskeletal Trauma Psychiatric Medical History: Reports: Hx Anxiety, Hx Bipolar Disorder, Hx Depression, Hx Personality Disorder, Hx Schizoaffective Disorder, Hx Schizophrenia Past Surgical History: Reports: Hx Abdominal Surgery, Hx Appendectomy, Hx Cholecystectomy. Denies: Hx Orthopedic Surgery - fractured finger - Immunizations Immunizations up to date: Yes Hx Diphtheria, Pertussis, Tetanus Vaccination: Yes - 2012 Hx Pneumococcal Vaccination: 08/23/00 Review of Systems - Review of Systems Constitutional: No symptoms reported. denies: Fever, Recent illness EENT: No symptoms reported Cardiovascular: No symptoms reported. denies: Chest pain, Dizziness Respiratory: No symptoms reported. denies: Cough, Short of breath Gastrointestinal: Abdominal pain. denies: Diarrhea, Nausea, Vomiting Genitourinary: No symptoms reported Male Genitourinary: No symptoms reported Musculoskeletal: No symptoms reported. denies: Back pain Skin: No symptoms reported Hematologic/Lymphatic: No symptoms reported Neurological/Psychological: No symptoms reported Physical Exam - Vital signs Vitals: Temp Pulse Resp BP Pulse Ox 98.2 F 62 19 118/78 97 04/03/19 06:27 04/03/19 06:27 04/03/19 06:27 04/03/19 06:27 04/03/19 06:27 - General General appearance: Appears well, Alert In distress: None - HEENT Head: Normocephalic, Atraumatic Eyes: Normal Nasal: Normal Mouth/Lips: Normal Mucous membranes: Normal Neck: Normal, Supple - Respiratory Respiratory status: No respiratory distress Chest status: Nontender Breath sounds: Normal Chest palpation: Normal - Cardiovascular Rhythm: Regular Heart sounds: S1 appreciated, S2 appreciated - Abdominal Inspection: Normal Distension: No distension Bowel sounds: Normal Tenderness: Tender - epigastric Organomegaly: No organomegaly - Back Back: Normal, Nontender. No: CVA tenderness - Extremities General upper extremity: Normal inspection, Nontender, Normal ROM General lower extremity: Normal inspection, Nontender, Normal ROM - Neurological Neuro grossly intact: Yes Cognition: Normal Jasmin Coma Scale Eye Opening: Spontaneous Jasmin Coma Scale Verbal: Oriented Jasmin Coma Scale Motor: Obeys Commands Jasmin Coma Scale Total: 15 - Psychological Associated symptoms: Anxious - Skin Skin Temperature: Warm Skin Moisture: Dry Skin Color: Normal Course - Re-evaluation Re-evalutation: 04/03/19 10:05 Patient feeling better after oral medications. Consulted with Dr. Spears regarding patient presentation and diagnostic evaluation. Recommends adding on chest x-ray at this time. - Vital Signs Vital signs: Temp Pulse Resp BP Pulse Ox 98.2 F 62 19 118/78 97 04/03/19 06:27 04/03/19 06:27 04/03/19 06:27 04/03/19 06:27 04/03/19 06:27 - Laboratory Result Diagrams: 04/03/19 08:44 04/03/19 08:44 Laboratory results interpreted by me: 04/03/19 08:44 Hgb 12.9 L MCH 26.5 L Labs- Entire Visit 04/03/19 04/03/19 08:44 08:44 WBC 5.6 RBC 4.89 Hgb 12.9 L Hct 40.3 MCV 82 MCH 26.5 L MCHC 32.1 RDW 13.5 Plt Count 222 Seg Neutrophils % 53.9 Lymphocytes % 36.5 Monocytes % 8.0 Eosinophils % 0.6 Basophils % 1.0 Absolute Neutrophils 3.0 Absolute Lymphocytes 2.0 Absolute Monocytes 0.4 Absolute Eosinophils 0.0 Absolute Basophils 0.1 Sodium 141.7 Potassium 4.0 Chloride 105 Carbon Dioxide 29 Anion Gap 8 BUN 20 Creatinine 1.00 Est GFR ( Amer) > 60 Est GFR (Non-Af Amer) > 60 Glucose 77 Calcium 9.3 Total Bilirubin 0.9 Direct Bilirubin 0.1 Neonat Total Bilirubin Not Reportable Neonat Direct Bilirubin Not Reportable Neonat Indirect Bili Not Reportable AST 19 ALT 12 Alkaline Phosphatase 60 Total Protein 6.4 Albumin 4.0 Lipase 72.1 - Diagnostic Test Radiology reviewed: Image reviewed, Reports reviewed - EKG Interpretation by Me EKG shows normal: Sinus rhythm Rate: Bradycardia When compared to previous EKG there are: No significant change Additional EKG results interpreted by me: 04/03/19 10:06 No T wave inversion. QTc 372 Discharge - Discharge Clinical Impression: GERD (gastroesophageal reflux disease) Qualifiers: Esophagitis presence: esophagitis presence not specified Qualified Code(s): K21.9 - Gastro-esophageal reflux disease without esophagitis Condition: Stable Disposition: HOME, SELF-CARE Instructions: Reflux Disease (GERD) ([facility]) Additional Instructions: Return immediately for any new or worsening symptoms Followup with your primary care provider, call tomorrow to make a followup appointment Prescriptions: Famotidine [Pepcid 10 mg Tablet] 10 mg PO BID #30 tablet Referrals: GIANCARLO CHANCE MD [Primary Care Provider] - Follow up as needed
[2019-04-03 08:59] LABS: ABSOLUTE BASOPHILS # (AUTO) 0.1 10^3/uL (0.0-0.2); ABSOLUTE MONOCYTES (AUTO) 0.4 10^3/uL (0.1-1.4); EOSINOPHILS % (AUTO) 0.6 % (0-6); HEMATOCRIT 40.3 % (37.9-51.0); HEMOGLOBIN 12.9 g/dL (13.5-17.0); LYMPHOCYTES % (AUTO) 36.5 % (13-45); MEAN CORPUSCULAR HEMOGLOBIN 26.5 pg (27.0-33.4); MEAN CORPUSCULAR HGB CONC 32.1 g/dL (32.0-36.0); MEAN CORPUSCULAR VOLUME 82 fl (80-97); PLATELET COUNT 222 10^3/uL (150-450); RED BLOOD COUNT 4.89 10^6/uL (4.35-5.55); RED CELL DISTRIBUTION WIDTH 13.5 % (11.5-14.0); SEGMENTED NEUTROPHILS % (AUTO) 53.9 % (42-78); TOTAL CELLS COUNTED % (AUTO) 100 %; WHITE BLOOD COUNT 5.6 10^3/uL (4.0-10.5)
[2019-04-03 09:18] LABS: ALKALINE PHOSPHATASE 60 U/L (38-126); ANION GAP 8 (5-19); ASPARTATE AMINO TRANSFERASE 19 U/L (17-59); BILIRUBIN,DIRECT 0.1 mg/dL (0.0-0.4); BILIRUBIN,TOTAL 0.9 mg/dL (0.2-1.3); BLOOD UREA NITROGEN 20 mg/dL (7-20); CALCIUM 9.3 mg/dL (8.4-10.2); CARBON DIOXIDE 29 mmol/L (22-30); CHLORIDE 105 mmol/L (98-107); GLUCOSE 77 mg/dL (75-110); TOTAL PROTEIN 6.4 g/dL (6.3-8.2)
--- NOTE | 2019-04-03 11:26 | RADIOLOGY REPORT (SQ) ---
EXAM DESCRIPTION: CHEST 2 VIEWS COMPLETED DATE/TIME: 04/03/2019 11:07 am REASON FOR STUDY: epig pain COMPARISON: 03/24/2019. EXAM PARAMETERS: NUMBER OF VIEWS: two views TECHNIQUE: Digital Frontal and Lateral radiographic views of the chest acquired. RADIATION DOSE: NA LIMITATIONS: none FINDINGS: LUNGS AND PLEURA: No opacities, masses or pneumothorax. No pleural effusion. MEDIASTINUM AND HILAR STRUCTURES: No masses or contour abnormalities. HEART AND VASCULAR STRUCTURES: Heart normal size. No evidence for failure. BONES: No acute findings. HARDWARE: None in the chest. OTHER: No other significant finding. IMPRESSION: NO ACUTE RADIOGRAPHIC FINDING IN THE CHEST. TECHNICAL DOCUMENTATION: JOB ID: [id number] [employer]- All Rights Reserved Reading location - IP/workstation name: [email or web address]
[2019-04-03 12:03] VITALS: BP 111/61
--- NOTE | 2019-04-04 09:48 | EKG REPORT ---
SEVERITY:- ABNORMAL ECG - SINUS BRADYCARDIA ST ELEVATION SUGGESTS PERICARDITIS : Confirmed by: Fernando Delarosa 04-Apr-2019 09:47:31
== END 2019-04-03 12:00 | disposition home or self-care (01) ==
LOC: ER 06:19
DX: K21.9 Gastro-esophageal reflux disease without esophagitis (principal); R10.13 Epigastric pain; R05 Cough; Z90.49 Acquired absence of other specified parts of digestive tract
CPT/HCPCS: 93005; 36415; 83690; 85025; 80053; 71046; 93010; J3490; 99284

== ENCOUNTER 2019-04-05 23:48 | Emergency (ER) | payer MEDICAID ==
--- NOTE | 2019-04-06 06:08 | ER Document Report ---
ED Respiratory Problem - General Chief Complaint: Productive Cough Stated Complaint: COUGH Time Seen by Provider: 04/06/19 06:06 Primary Care Provider: GIANCARLO CHANCE MD [Primary Care Provider] - Follow up in 1 week Mode of Arrival: Ambulatory Information source: Patient, [facility] Records Notes: This 33-year-old male homeless schizophrenic patient comes emergency room for cough congestion and wheezing. He has been to the emergency room 10 times in the past 12 days. He came to the emergency room 20 times in the month of February. He reports his cough is occasionally productive. He denies fevers. He denies smoking. TRAVEL OUTSIDE OF THE [place] IN LAST 30 DAYS: No COUNTRY TRAVELED TO/FROM: [facility] - Related Data Allergies/Adverse Reactions: No Known Allergies Allergy (Verified 04/05/19 23:48) Past Medical History - General Information source: Patient - Social History Smoking Status: Unknown if Ever Smoked Cigarette use (# per day): No Chew tobacco use (# tins/day): No Smoking Education Provided: No Frequency of alcohol use: Occasional Drug Abuse: None Occupation: Unemployed Lives with: Homeless Family History: Reviewed & Not Pertinent Patient has suicidal ideation: No Patient has homicidal ideation: No Pulmonary Medical History: Reports: Hx Asthma - not on home O2 GI Medical History: Reports: Hx Irritable Bowel - constipation Musculoskeletal Medical History: Reports Hx Arthritis, Reports Hx Musculoskeletal Trauma Psychiatric Medical History: Reports: Hx Anxiety, Hx Bipolar Disorder, Hx Depression, Hx Personality Disorder, Hx Schizoaffective Disorder, Hx Schizophrenia Traumatic Medical History: Reports: Hx Fractures - Finger fracture Past Surgical History: Reports: Hx Abdominal Surgery, Hx Appendectomy, Hx Cholecystectomy - Immunizations Immunizations up to date: Yes Hx Diphtheria, Pertussis, Tetanus Vaccination: Yes - 2012 Hx Pneumococcal Vaccination: 08/23/00 Review of Systems - Review of Systems Constitutional: No symptoms reported EENT: No symptoms reported Cardiovascular: No symptoms reported Respiratory: Cough, Short of breath, Sputum, Wheezing Gastrointestinal: No symptoms reported Genitourinary: No symptoms reported Musculoskeletal: No symptoms reported Skin: No symptoms reported Hematologic/Lymphatic: No symptoms reported Neurological/Psychological: No symptoms reported Physical Exam - Vital signs Vitals: Temp Pulse Resp BP Pulse Ox 98.6 F 101 H 16 128/76 H 95 04/05/19 23:50 04/05/19 23:50 04/05/19 23:50 04/05/19 23:50 04/05/19 23:50 Interpretation: Normal - General General appearance: Other - She does initially sound asleep, eventually awakened enough to get him to sort of cooperate with history and physical. In distress: None - HEENT Head: Normocephalic, Atraumatic Eyes: Normal Pupils: PERRL Nasal: Other - Some nasal and sinus congestion Neck: Normal - Respiratory Respiratory status: No respiratory distress Breath sounds: Nonproductive cough, Rhonchi, Wheezing - Cardiovascular Rhythm: Regular Heart sounds: Normal auscultation Murmur: No - Abdominal Inspection: Normal - Back Back: Normal - Extremities General upper extremity: Normal inspection General lower extremity: Normal inspection - Neurological Neuro grossly intact: Yes - Psychological Associated symptoms: Other - Avoids eye contact. Mumbles answers unless pressed and forced to answer yes no. Patient is basically wanting to sleep. - Skin Skin Temperature: Warm Skin Moisture: Dry Skin Color: Normal Course - Re-evaluation Re-evalutation: 04/06/19 08:11 Patient breathing has improved, there is still a lot of wheezes and rhonchi and he has the nasal and sinus congestion. He is encouraged to get his prescriptions filled this time. - Vital Signs Vital signs: Temp Pulse Resp BP Pulse Ox 98.6 F 101 H 16 128/76 H 95 04/05/19 23:50 04/05/19 23:50 04/05/19 23:50 04/05/19 23:50 04/05/19 23:50 Discharge - Discharge Clinical Impression: Asthmatic bronchitis Qualifiers: Asthma severity: moderate Asthma persistence: persistent Asthma complication type: uncomplicated Qualified Code(s): J45.40 - Moderate persistent asthma, uncomplicated Condition: Stable Disposition: HOME, SELF-CARE Additional Instructions: Bronchitis with Bronchospasm (Wheezing) You have bronchitis with bronchospasm (wheezing). Sometimes people develop wheezing with a chest cold. This occurs either because of an underlying tendency toward asthma or because the virus itself irritates the bronchial tubes. This irritation causes cough, shortness of breath, and wheezing. Emergency treatment of bronchospasm may include adrenaline shots or bronchodilator aerosol. You may feel lightheaded and have a rapid pulse for an hour or two. Rest and get plenty of fluids. At home, we'll treat you with a bronchodilator inhaler. Corticosteroids may be required for some patients. Until you recover, avoid chemical fumes, dusts, pollens, and exercising in very cold or dry air. If you smoke, stop now! Most cases of bronchitis get better without antibiotics. We prescribe antibiotics when we believe bacteria are damaging your airways, or if there's high risk the bronchitis will worsen into pneumonia. Increase your fluid intake. A cool mist humidifier may make your lungs more comfortable. An expectorant (cough medicine that loosens phlegm) can help. Repeated episodes of bronchitis and bronchospasm may result in lung damage -- for example, chronic bronchitis, recurrent pneumonias, or emphysema. If you develop a fever, increased wheezing, chest pain, or severe shortness of breath, you should contact the doctor immediately. Take the medications as prescribed. Start the Zithromax and the prednisone tomorrow. Use the inhaler every 2-4 hours for wheezing as needed. Drink plenty of fluids. Follow-up with your primary care provider, Dr. Chance next week for recheck. Prescriptions: Albuterol Sulfate [Proair Hfa Inhalation Aerosol 8.5 gm Mdi] 2 puff IH ASDIR PRN #1 mdi PRN Reason: Azithromycin [Zithromax 250 mg Tablet] 250 mg PO DAILY #4 tablet Prednisone [Deltasone 20 mg Tablet] 20 mg PO BID #10 tablet Referrals: GIANCARLO CHANCE MD [Primary Care Provider] - Follow up in 1 week
[2019-04-06] MEDS ORDERED: AZITHROMYCIN 250 MG TABLET PO ONE (06:14)
[2019-04-06] MEDS ORDERED: PREDNISONE 20 MG TABLET PO ONE (06:14)
[2019-04-06] MEDS ORDERED: IPRATROPIUM/ALBUTEROL 0.5-2.5 MG/3 ML AMPUL NEB ONE (06:14)
[2019-04-06] MEDS ORDERED: ALBUTEROL SULFATE 0.083% NEB 2.5 MG/3 ML AMPUL NEB ONE (06:14)
[2019-04-06] MEDS ORDERED: ALBUTEROL SULFATE HFA (90 MCG/PUFF) 8 GM MDI (1 MDI/ER DISP) IH ONE (08:10)
[2019-04-06 08:40] VITALS: BP 136/84
== END 2019-04-06 08:41 | disposition home or self-care (01) ==
LOC: ER 23:48
DX: J45.40 Moderate persistent asthma, uncomplicated (principal); Z90.49 Acquired absence of other specified parts of digestive tract; Z59.0 Homelessness
CPT/HCPCS: 94640; 99283; Q0144; J7512; J3490; J7620

== ENCOUNTER 2019-04-07 21:50 | Emergency (ER) | payer MEDICAID ==
[2019-04-08] MEDS ORDERED: IPRATROPIUM/ALBUTEROL 0.5-2.5 MG/3 ML AMPUL NEB ONE (00:37)
--- NOTE | 2019-04-08 00:54 | ER Document Report ---
HPI - HPI Patient complains to provider of: cough and wheezing Time Seen by Provider: 04/08/19 00:06 Severity: Moderate Pain Level: 0 Context: 33 Yr old male pt, with the listed pmh, here for uri sx x several days. seen here 5 days ago and given a zpack, prednisone, and albuterol inhaler and had a neg cxr and return for continued and worsening sx. he is well known to the er for his asthma exacerbations along with schizophrenia and homelessness. no other recent abx or steroids. no hx diabetes. no trouble breathing, swallowing or handling secretions. otc meds not helping much. endorses compliance with his inhaler and still has it. just started taking the abx and steroids 2 days ago. isn't taking anything for his cough. hasn't f/u with pcp. no other associated sx. Similar symptoms previously: Yes Recently seen / treated by doctor: Yes - ROS Systems Reviewed and Negative: Yes All other systems reviewed and negative - to include 10 systems, unless mentioned in the hpi - REPRODUCTIVE Reproductive: DENIES: : Past Medical History - General Information source: Patient - Social History Smoking Status: Never Smoker Frequency of alcohol use: None Drug Abuse: Marijuana Lives with: Homeless Family History: Reviewed & Not Pertinent Patient has suicidal ideation: No Patient has homicidal ideation: No Pulmonary Medical History: Reports: Hx Asthma - not on home O2, Hx Bronchitis Endocrine Medical History: Denies: Hx Diabetes Mellitus Type 1, Hx Diabetes Mellitus Type 2 Renal/ Medical History: Denies: Hx Peritoneal Dialysis GI Medical History: Reports: Hx Irritable Bowel - constipation Musculoskeletal Medical History: Reports Hx Arthritis, Reports Hx Musculoskeletal Trauma Psychiatric Medical History: Reports: Hx Anxiety, Hx Bipolar Disorder, Hx Depression, Hx Personality Disorder, Hx Schizoaffective Disorder, Hx Schizophrenia Traumatic Medical History: Reports: Hx Fractures - Finger fracture Past Surgical History: Reports: Hx Abdominal Surgery, Hx Appendectomy, Hx Cholecystectomy, Hx Orthopedic Surgery - fractured finger - Immunizations Immunizations up to date: Yes Hx Diphtheria, Pertussis, Tetanus Vaccination: Yes - 2012 Hx Pneumococcal Vaccination: 08/23/00 Vertical Provider Document - CONSTITUTIONAL Notes: >>>> PHYSICAL_EXAM: GENERAL_APPEARANCE: well_nourished, alert, cooperative, no_acute_distress, mild_obvious_discomfort. pleasant, thin black male, coughing a lot, but not intractably, smiling, speaking in full sentences, in no sign of pain or resp distress, no one is with him VITALS: reviewed, see vital signs table. HEAD: no_swelling\tenderness on the head. normocephalic. atraumatic. no thompson signs. no raccoons eyes. EYES: PERRL, EOMI, conjunctiva_clear. NOSE: no_nasal_discharge. MOUTH: (-)decreased moisture. THROAT: no_tonsilar_inflammation, no_airway_obstruction. no_lymphadenopathy NECK: supple, no_neck_tenderness, full rom. full strength. no meningeal signs. BACK: no_back_tenderness. CHEST_WALL: no_chest_tenderness. no overlying skin changes LUNGS: mild-mod diffuse exp wheezes, no retractions. no nasal flaring. (-)ac cessory muscle use, good air exchange bilateral. HEART: normal_rate, normal_rhythm, ABDOMEN: normal_BS, soft, no_abd_tenderness, (-)guarding, (-)rebound, no distension or peritoneal signs. no cva ttp EXTREMITIES: strength 5/5 in all_extremities, good pulses in all_extremities, no_swelling\tenderness in the extremities, no_edema. full rom. normal gait. good pulses. brisk cap refill. good hand tank builder. neg salma sign NEURO: motor and sensation intact, SKIN: warm, dry, good_color, no_rash. MENTAL_STATUS: speech_clear, oriented_X_3, normal_affect, responds_appropriately to questions. - INFECTION CONTROL TRAVEL OUTSIDE OF THE [place] IN LAST 30 DAYS: No COUNTRY TRAVELED TO/FROM: [facility] Course - Re-evaluation Re-evalutation: 04/08/19 01:38 Pt here for cough and wheezing for several last few days. He was seen and evaluated here 5 days ago and given steroids, Z-Jean, albuterol inhaler. He did have significant wheezing on exam however no acute respiratory distress. His labs were unremarkable. Chest x-ray was negative for anything acute per radiology reviewed by myself. Respiratory culture and virus panel pending. Advised will call him with any abnormal results that require change in plan of care. He responded well to a DuoNeb here. Lung sounds clear on re-exam. He felt much better and wants to go home. Advised the need to continue to take his medications previously given as prescribed. Avoid environmental allergens that may exacerbate his symptoms. Drink plenty of fluids. Advised symptomatic care. will dc with conro quiles. advised to f/u with pcp in 1-2 days. return for any worsening symptoms. vss. well appearing. satting well on ra. neurononfocal. pt understands and agrees to plan. On reexam, pt improved with tx listed. remained stable. nontoxic. well appearing. pain controlled. tolerating po. requesting to go home. lung sounds improved on recheck. vss. normal o2 sats on ra Documentation achieved through voice recording which my lead to some occasional accidental typographical errors. Extensive efforts have been made to proof read documentation to make sure these are the least as possible. Category Date Time Status Chest [CHEST 2 VIEWS] [RAD] Stat Exams 04/08/19 00:37 Completed CBC WITH DIFF [HEME] Stat Lab 04/08/19 00:50 Received CHEMISTRY MISC TEST Stat Lab 04/08/19 01:17 Ordered CMP [COMPREHENSIVE METABOLIC PANEL] [CHEM] Stat Lab 04/08/19 00:50 Received Culture [SPUTUM CULTURE + GRAM STAIN] [MC] Stat Lab 04/08/19 00:42 Uncollected MAGNESIUM [CHEM] Stat Lab 04/08/19 00:50 Received Ipratropium/Albuterol Sulfate [Duoneb 3 ml Ampul] Med 04/08/19 00:37 Discontinued 3 ml NEB NOW ONE Nebulizer Therapy Routine [RESPCARE] NOW Ther 04/08/19 00:37 Active - Vital Signs Vital signs: Temp Pulse Resp BP Pulse Ox 98.3 F 80 18 138/87 H 97 04/08/19 00:11 04/08/19 00:11 04/08/19 00:11 04/08/19 00:11 04/08/19 00:11 04/09/19 01:20 Temp Pulse Pulse Resp BP BP Pulse Ox 04/08/19 02:07 97.8 F 61 16 124/72 100 04/08/19 00:11 98.3 F 80 18 138/87 H 97 04/07/19 22:25 98.3 F 67 18 138/78 H 99 - Laboratory Result Diagrams: 04/08/19 00:50 04/08/19 00:50 Laboratory results interpreted by me: 04/08/19 02:03 Labs- Entire Visit 04/08/19 04/08/19 00:50 00:50 WBC 5.7 RBC 5.28 Hgb 13.9 Hct 43.2 MCV 82 MCH 26.3 L MCHC 32.2 RDW 14.0 Plt Count 253 Seg Neutrophils % 49.8 Lymphocytes % 30.0 Monocytes % 8.4 Eosinophils % 11.2 H Basophils % 0.6 Absolute Neutrophils 2.8 Absolute Lymphocytes 1.7 Absolute Monocytes 0.5 Absolute Eosinophils 0.6 Absolute Basophils 0.0 Sodium 142.0 Potassium 4.2 Chloride 103 Carbon Dioxide 32 H Anion Gap 7 BUN 21 H Creatinine 1.10 Est GFR ( Amer) > 60 Est GFR (Non-Af Amer) > 60 Glucose 95 Calcium 9.2 Magnesium 2.1 Total Bilirubin 0.8 Direct Bilirubin 0.3 Neonat Total Bilirubin Not Reportable Neonat Direct Bilirubin Not Reportable Neonat Indirect Bili Not Reportable AST 23 ALT 13 Alkaline Phosphatase 66 Total Protein 6.9 Albumin 4.2 - Diagnostic Test Radiology reviewed: Image reviewed, Reports reviewed Radiology results interpreted by me: 04/08/19 02:03 Chest X-Ray 04/08/19 00:37 IMPRESSION: No acute cardiopulmonary abnormality. copyright 2011 [employer]- All Rights Reserved Discharge - Discharge Clinical Impression: Acute bronchitis Qualifiers: Bronchitis organism: unspecified organism Qualified Code(s): J20.9 - Acute bronchitis, unspecified Asthma exacerbation Qualifiers: Asthma severity: unspecified severity Asthma persistence: intermittent Qualified Code(s): J45.21 - Mild intermittent asthma with (acute) exacerbation Condition: Good Disposition: HOME, SELF-CARE Instructions: Bronchitis With Bronchospasm (Wheezing) ([facility]) Additional Instructions: Follow-up with PCP in 1 to 2 days. Return for any worsening symptoms. continue to take the azithromycin, prednisone, and use the inhaler as prescribed. avoid environmental allergens that may exacerbate your symptoms. tylenol or motrin for any pain. drink plenty of fluids. we will call you with any abnormal results that require change in plan of care. Prescriptions: Benzonatate [Tessalon Perle 100 mg Capsule] 100 mg PO Q8HP PRN #40 cap PRN Reason: Referrals: GIANCARLO CHANCE MD [Primary Care Provider] - Follow up tomorrow
[2019-04-08 01:09] LABS: ABSOLUTE EOSINOPHILS # (AUTO) 0.6 10^3/uL (0.0-0.6); ABSOLUTE LYMPHOCYTES (AUTO) 1.7 10^3/uL (0.5-4.7); ABSOLUTE MONOCYTES (AUTO) 0.5 10^3/uL (0.1-1.4); ABSOLUTE NEUT (AUTO) 2.8 10^3/uL (1.7-8.2); BASOPHILS % (AUTO) 0.6 % (0-2); EOSINOPHILS % (AUTO) 11.2 % (0-6); HEMATOCRIT 43.2 % (37.9-51.0); HEMOGLOBIN 13.9 g/dL (13.5-17.0); MEAN CORPUSCULAR HEMOGLOBIN 26.3 pg (27.0-33.4); MEAN CORPUSCULAR HGB CONC 32.2 g/dL (32.0-36.0); MEAN CORPUSCULAR VOLUME 82 fl (80-97); MONOCYTES % (AUTO) 8.4 % (3-13); PLATELET COUNT 253 10^3/uL (150-450); RED BLOOD COUNT 5.28 10^6/uL (4.35-5.55); SEGMENTED NEUTROPHILS % (AUTO) 49.8 % (42-78); TOTAL CELLS COUNTED % (AUTO) 100 %; WHITE BLOOD COUNT 5.7 10^3/uL (4.0-10.5)
--- NOTE | 2019-04-08 01:21 | RADIOLOGY REPORT (SQ) ---
EXAM DESCRIPTION: XR CHEST 2 VIEWS COMPLETED DATE/TME: 04/08/2019 00:37 CLINICAL HISTORY: 33 years, Male, cough COMPARISON: 04/03/19 NUMBER OF VIEWS: Two TECHNIQUE: Two views of the chest LIMITATIONS: None. FINDINGS: The lungs are clear. The heart is normal in size. No pneumothorax or pleural effusion. No acute fracture. IMPRESSION: No acute cardiopulmonary abnormality. copyright 2010 [employer]- All Rights Reserved
[2019-04-08 01:59] LABS: ALBUMIN 4.2 g/dL (3.5-5.0); ALKALINE PHOSPHATASE 66 U/L (38-126); ANION GAP 7 (5-19); ASPARTATE AMINO TRANSFERASE 23 U/L (17-59); BILIRUBIN,DIRECT 0.3 mg/dL (0.0-0.4); BILIRUBIN,TOTAL 0.8 mg/dL (0.2-1.3); BLOOD UREA NITROGEN 21 mg/dL (7-20); CALCIUM 9.2 mg/dL (8.4-10.2); CARBON DIOXIDE 32 mmol/L (22-30); CHLORIDE 103 mmol/L (98-107); GLUCOSE 95 mg/dL (75-110); POTASSIUM 4.2 mmol/L (3.6-5.0); TOTAL PROTEIN 6.9 g/dL (6.3-8.2)
[2019-04-08] MEDS ORDERED: BENZONATATE 100 MG CAPSULE PO ONE (02:02)
[2019-04-08 02:08] VITALS: BP 124/72
== END 2019-04-08 02:10 | disposition home or self-care (01) ==
LOC: ER 21:50
DX: J20.9 Acute bronchitis, unspecified (principal); J45.21 Mild intermittent asthma with (acute) exacerbation; Z59.0 Homelessness; Z90.49 Acquired absence of other specified parts of digestive tract
CPT/HCPCS: 94640; 99285; 36415; 87070; 87205; 83735; 85025; 80053; 71046; J3490; J7620

== ENCOUNTER 2019-04-09 03:37 | Emergency (ER) | payer MEDICAID ==
--- NOTE | 2019-04-09 04:23 | ER Document Report ---
ED Extremity Problem, Lower - General Chief Complaint: Knee Injury Stated Complaint: KNEE PAIN Time Seen by Provider: 04/09/19 04:05 Primary Care Provider: GIANCARLO CHANCE MD [Primary Care Provider] - Follow up as needed Mode of Arrival: Ambulatory Information source: Patient, [facility] Records Notes: This 33-year-old homeless gentleman comes emergency room stating he twisted his right knee and ankle running to get out of the rain. This time he states his knee feels fine but he has some discomfort deep inside his ankle. He states there is no swelling of the ankle. He has been here now on 12 visits in the past 16 days. He came to emergency room on 20 visits in the month of February. TRAVEL OUTSIDE OF THE [place] IN LAST 30 DAYS: No COUNTRY TRAVELED TO/FROM: [facility] - Related Data Allergies/Adverse Reactions: No Known Allergies Allergy (Verified 04/07/19 22:22) Past Medical History - General Information source: Patient, [facility] Records - Social History Smoking Status: Never Smoker Cigarette use (# per day): No Chew tobacco use (# tins/day): No Smoking Education Provided: No Frequency of alcohol use: Occasional Occupation: Unemployed Lives with: Homeless Family History: Reviewed & Not Pertinent Pulmonary Medical History: Reports: Hx Asthma - not on home O2, Hx Bronchitis GI Medical History: Reports: Hx Irritable Bowel - constipation Musculoskeletal Medical History: Reports Hx Arthritis, Reports Hx Musculoskeletal Trauma Psychiatric Medical History: Reports: Hx Anxiety, Hx Bipolar Disorder, Hx Depression, Hx Personality Disorder, Hx Schizoaffective Disorder, Hx Schizophrenia Traumatic Medical History: Reports: Hx Fractures - Finger fracture Past Surgical History: Reports: Hx Abdominal Surgery, Hx Appendectomy, Hx Cholecystectomy, Hx Orthopedic Surgery - fractured finger - Immunizations Immunizations up to date: Yes Hx Diphtheria, Pertussis, Tetanus Vaccination: Yes - 2012 Hx Pneumococcal Vaccination: 08/23/00 Review of Systems - Review of Systems Constitutional: No symptoms reported EENT: No symptoms reported Cardiovascular: No symptoms reported Respiratory: No symptoms reported Gastrointestinal: No symptoms reported Musculoskeletal: See HPI Skin: No symptoms reported Hematologic/Lymphatic: No symptoms reported Neurological/Psychological: No symptoms reported Physical Exam - Vital signs Vitals: Temp Pulse Resp BP Pulse Ox 98.4 F 75 16 126/76 H 97 04/09/19 03:51 04/09/19 03:51 04/09/19 03:51 04/09/19 03:51 04/09/19 03:51 Interpretation: Normal - General General appearance: Appears well, Alert In distress: None - HEENT Head: Normocephalic, Atraumatic Eyes: Normal Pupils: PERRL - Respiratory Respiratory status: No respiratory distress - Cardiovascular Rhythm: Regular - Abdominal Inspection: Normal - Back Back: Normal - Extremities General upper extremity: Normal inspection General lower extremity: Other - The right knee is nontender without swelling. The right ankle does not have swelling. There is no tenderness to palpate the ankle. Range of motion does not increase pain. There is no indication for x- rays at this time. - Neurological Neuro grossly intact: Yes - Psychological Associated symptoms: Normal affect, Normal mood - Skin Skin Temperature: Warm Skin Moisture: Dry Skin Color: Normal Course - Re-evaluation Re-evalutation: 04/09/19 04:56 Physical exam does not indicate a need to x-ray the ankle. I offered the patient ankle stirrup, he felt that was a good idea and will help his ankle feel better as he continues to walk on it. Stirrup was placed on the right ankle by the PCT, it fit well, provides medial and lateral support. Patient reports it feels good. - Vital Signs Vital signs: Temp Pulse Resp BP Pulse Ox 98.3 F 71 16 119/78 96 04/09/19 04:43 04/09/19 04:43 04/09/19 03:51 04/09/19 04:43 04/09/19 04:43 Discharge - Discharge Clinical Impression: Ankle sprain Qualifiers: Encounter type: initial encounter Involved ligament of ankle: unspecified ligament Laterality: right Qualified Code(s): S93.401A - Sprain of unspecified ligament of right ankle, initial encounter Condition: Stable Disposition: HOME, SELF-CARE Instructions: Ankle Stirrup Splint ([facility]), Sprained Ankle ([facility]) Referrals: GIANCARLO CHANCE MD [Primary Care Provider] - Follow up as needed
[2019-04-09 04:44] VITALS: BP 119/78
== END 2019-04-09 04:50 | disposition home or self-care (01) ==
LOC: ER 03:37
DX: S93.401A Sprain of unspecified ligament of right ankle, initial encounter (principal); M25.561 Pain in right knee; M25.571 Pain in right ankle and joints of right foot; X58.XXXA Exposure to other specified factors, initial encounter; Y93.02 Activity, running; J45.909 Unspecified asthma, uncomplicated
CPT/HCPCS: 99283; L1902

== ENCOUNTER 2019-04-10 23:33 | Emergency (ER) | payer MEDICAID ==
[2019-04-11] MEDS ORDERED: BENZONATATE 100 MG CAPSULE PO ONE (00:27)
[2019-04-11] MEDS ORDERED: MONTELUKAST SODIUM 10 MG TABLET PO ONE (00:27)
--- NOTE | 2019-04-11 00:37 | ER Document Report ---
HPI - HPI Time Seen by Provider: 04/11/19 00:01 Pain Level: 2 Context: Patient is a 33-year-old male very well-known to this emergency department who presents with throat dryness. He states that he has been drinking plenty of water. Patient states that he just finished a course of antibiotics. Past medical history includes asthma. He uses a rescue inhaler as needed. - EENT EENT: REPORTS: Sore Throat - c/o dryness, Nasal Drainage-Clear. DENIES: Ear Pain, Nasal Drainage-Purulent, Congestion, Eye problems - NEURO Neurology: DENIES: Headache - RESPIRATORY Respiratory: REPORTS: Coughing. DENIES: Trouble Breathing - GASTROINTESTINAL Gastrointestinal: DENIES: Abdominal Pain, Nausea, Patient vomiting - REPRODUCTIVE Reproductive: DENIES: : - DERM Skin Color: Normal Skin Problems: None - I think he has been here so much he does not know what the effects from with him Past Medical History - Social History Smoking Status: Never Smoker Family History: Reviewed & Not Pertinent Pulmonary Medical History: Reports: Hx Asthma - not on home O2, Hx Bronchitis Endocrine Medical History: Denies: Hx Diabetes Mellitus Type 1, Hx Diabetes Mellitus Type 2 Renal/ Medical History: Denies: Hx Peritoneal Dialysis GI Medical History: Reports: Hx Irritable Bowel - constipation Musculoskeletal Medical History: Reports Hx Arthritis, Reports Hx Musculoskeletal Trauma Psychiatric Medical History: Reports: Hx Anxiety, Hx Bipolar Disorder, Hx Depression, Hx Personality Disorder, Hx Schizoaffective Disorder, Hx Schizophrenia Traumatic Medical History: Reports: Hx Fractures - Finger fracture Past Surgical History: Reports: Hx Abdominal Surgery, Hx Appendectomy, Hx Cholecystectomy, Hx Orthopedic Surgery - fractured finger - Immunizations Immunizations up to date: Yes Hx Diphtheria, Pertussis, Tetanus Vaccination: Yes - 2012 Hx Pneumococcal Vaccination: 08/23/00 Vertical Provider Document - CONSTITUTIONAL Agree With Documented VS: Yes Exam Limitations: No Limitations General Appearance: No Apparent Distress - INFECTION CONTROL TRAVEL OUTSIDE OF THE [place] IN LAST 30 DAYS: No COUNTRY TRAVELED TO/FROM: [place] - HEENT HEENT: Atraumatic, Normocephalic, PERRLA - NECK Neck: Normal Inspection, Supple - RESPIRATORY Respiratory: Breath Sounds Normal, No Respiratory Distress - CARDIOVASCULAR Cardiovascular: Regular Rate, Regular Rhythm Pulses: Normal: Radial - MUSCULOSKELETAL/EXTREMETIES Musculoskeletal/Extremeties: FROM - NEURO Level of Consciousness: Awake, Alert, Appropriate Motor/Sensory: No Motor Deficit, No Sensory Deficit - DERM Integumentary: Warm, Dry, No Rash Course - Re-evaluation Re-evalutation: 04/11/19 00:37 During the patient's assessment, patient kept spitting up lots of clear phlegm. He states that when he received Tessalon Perles last time, it seemed to help. Patient also has rhinorrhea noted. I suspect this is causing his symptoms and his sore throat. He will receive a dose of Singulair and Tessalon Perles here in the emergency department. Have advised him to follow-up with his primary care provider. Follow-up precautions were given. Verbal discharge instructions were given to the patient. They verbalized understanding. They are stable for discharge. 04/11/19 00:44 The patient refused singular. The Singulair that was offered to him. I advised him to follow-up with his primary care provider. - Vital Signs Vital signs: Temp Pulse Resp BP Pulse Ox 99.2 F 107 H 22 H 140/99 H 96 04/10/19 23:40 04/10/19 23:40 04/10/19 23:40 04/10/19 23:40 04/10/19 23:40 Discharge - Discharge Clinical Impression: Dry throat, Rhinorrhea Condition: Stable Disposition: HOME, SELF-CARE Additional Instructions: You were seen today in the emergency department for a dry throat. Your throat was dry because you have drainage from your nose and it is causing you to spit up some clear phlegm. You are being prescribed cough medication help with the drainage that is causing her sore throat. Please follow-up with your primary care provider in regards to this visit. Prescriptions: Benzonatate [Tessalon Perle 100 mg Capsule] 100 mg PO Q8HP PRN #40 cap PRN Reason: Referrals: GIANCARLO CHANCE MD [Primary Care Provider] - Follow up in 3-5 days
[2019-04-11 00:51] VITALS: BP 119/83
== END 2019-04-11 00:56 | disposition home or self-care (01) ==
LOC: ER 23:33
DX: J39.2 Other diseases of pharynx (principal); J34.89 Other specified disorders of nose and nasal sinuses; Z90.49 Acquired absence of other specified parts of digestive tract
CPT/HCPCS: 99282

== ENCOUNTER 2019-04-11 22:44 | Emergency (ER) | payer MEDICAID ==
[2019-04-12] MEDS ORDERED: IPRATROPIUM/ALBUTEROL 0.5-2.5 MG/3 ML AMPUL NEB ONE ×2 (00:41→01:14)
[2019-04-12] MEDS ORDERED: METHYLPREDNISOLONE INJ 125 MG/2 ML SDV IV ONE (00:51)
[2019-04-12] MEDS ORDERED: MAGNESIUM SULFATE/D5W 1 GM/100 ML RTUPB IV SCH (01:00)
--- NOTE | 2019-04-12 01:00 | ER Document Report ---
ED Medical Screen (RME) - General Chief Complaint: Cough Stated Complaint: CHEST PRESSURE Time Seen by Provider: 04/12/19 00:43 Primary Care Provider: GIANCARLO CHANCE MD [Primary Care Provider] - Follow up as needed Notes: Patient is a 33-year-old male with past medical history of asthma who presents the emergency department with a chief complaint of shortness of breath. He was seen in the emergency department yesterday by myself and at that time there was no wheezing. He states that he feels short of breath this time and did not feel short of breath yesterday. He is constantly spitting up clear phlegm. Exam: Expiratory wheezes noted throughout all lung garcia. I have greeted and performed a rapid initial assessment of this patient. A comprehensive ED assessment and evaluation of the patient, analysis of test results and completion of medical decision making process will be conducted by an additional ED providers. TRAVEL OUTSIDE OF THE [place] IN LAST 30 DAYS: No COUNTRY TRAVELED TO/FROM: [facility] - Related Data Allergies/Adverse Reactions: No Known Allergies Allergy (Verified 04/07/19 22:22) Past Medical History - Social History Family history: Reviewed & Not Pertinent Pulmonary Medical History: Reports: Hx Asthma - not on home O2, Hx Bronchitis Endocrine Medical History: Denies: Hx Diabetes Mellitus Type 1, Hx Diabetes Mellitus Type 2 Renal/ Medical History: Denies: Hx Peritoneal Dialysis GI Medical History: Reports: Hx Irritable Bowel - constipation Musculoskeltal Medical History: Reports Hx Arthritis, Reports Hx Musculoskeletal Trauma Psychiatric Medical History: Reports: Hx Anxiety, Hx Bipolar Disorder, Hx Depression, Hx Personality Disorder, Hx Schizoaffective Disorder, Hx Schizophrenia Traumatic Medical History: Reports: Hx Fractures - Finger fracture Past Surgical History: Reports: Hx Abdominal Surgery, Hx Appendectomy, Hx Cholecystectomy, Hx Orthopedic Surgery - fractured finger - Immunizations Immunizations up to date: Yes Hx Diphtheria, Pertussis, Tetanus Vaccination: Yes - 2012 Physical Exam - Vital signs Vitals: Temp Pulse Resp BP Pulse Ox 98.3 F 63 20 145/83 H 96 04/11/19 23:51 04/11/19 23:51 04/11/19 23:51 04/11/19 23:51 04/11/19 23:51 Course - Vital Signs Vital signs: Temp Pulse Resp BP Pulse Ox 98.3 F 63 20 145/83 H 96 04/11/19 23:51 04/11/19 23:51 04/11/19 23:51 04/11/19 23:51 04/11/19 23:51 Doctor's Discharge - Discharge Referrals: GIANCARLO CHANCE MD [Primary Care Provider] - Follow up as needed
--- NOTE | 2019-04-12 02:00 | RADIOLOGY REPORT (SQ) ---
EXAM DESCRIPTION: XR CHEST 2 VIEWS COMPLETED DATE/TME: 04/11/2019 00:00 CLINICAL HISTORY: 33 years, Male, wheezing COMPARISON: 02/19/2019 chest NUMBER OF VIEWS: 2 TECHNIQUE: 2 view chest LIMITATIONS: None. FINDINGS: Heart size is normal. Lungs are hyperinflated but clear. No pneumothorax IMPRESSION: Underlying hyperinflation copyright 2010 [employer]- All Rights Reserved
--- NOTE | 2019-04-12 02:46 | ER Document Report ---
ED General - General Chief Complaint: Cough Stated Complaint: CHEST PRESSURE Time Seen by Provider: 04/12/19 00:43 Primary Care Provider: GIANCARLO CHANCE MD [Primary Care Provider] - Follow up as needed TRAVEL OUTSIDE OF THE [place] IN LAST 30 DAYS: No COUNTRY TRAVELED TO/FROM: [facility] - [facility] Notes: Patient is a 33-year-old male that presents to the emergency department for chief complaint of shortness of breath. Patient has extensive history of asthma with poor compliance with medical management. He does state he currently has an albuterol inhaler and used it yesterday "when I was coughing". Patient does not know how many times total he uses inhaler. He does state he has multiple prescriptions for redness own and took "2 pills yesterday". Patient also states he recently finished a course of antibiotics. He denies any fevers or chills. He denies chest pain or palpitations. He states this does feel like his asthma and he feels better after getting breathing treatments and Solu-Medrol in the emergency room. Past Medical History: Asthma Past Surgical History: Reviewed in chart Social History: Reviewed in chart Family History: Reviewed and noncontributory for presenting illness Allergies: Reviewed, see documented allergy list. REVIEW OF SYSTEMS: CONSTITUTIONAL : No fever No chills No diaphoresis No recent illness EENT: No vision changes No congestion No sore throat CARDIOVASCULAR: No chest pain No palpitations RESPIRATORY: shortness of breath cough No difficulty breathing GASTROINTESTINAL: No abdominal pain No nausea No vomiting No diarrhea GENITOURINARY: No dysuria No hematuria No difficulty urinating MUSCULOSKELETAL: No back pain No leg pain No arm pain SKIN: No rashes No lesions LYMPHATIC: No swollen, enlarged glands. NEUROLOGICAL: No lightheadedness No headache No weakness No paresthesias PSYCHIATRIC: No anxiety No depression PHYSICAL EXAMINATION: Vital signs reviewed, nursing noted reviewed. GENERAL: Well-appearing, well-nourished and in no acute distress. HEAD: Atraumatic, normocephalic. EYES: Eyes appear normal, extraocular movements intact, sclera anicteric, conjunctiva are normal. ENT: nares patent, oropharynx clear without exudates. Moist mucous membranes. NECK: Normal range of motion, supple without lymphadenopathy LUNGS: Breath sounds wheezy to auscultation bilaterally and equal. No rales or rhonchi. No accessory muscle use or tachypnea HEART: Regular rate and rhythm without murmurs ABDOMEN: Soft, nontender, normoactive bowel sounds. No rebound, guarding, or rigidity. No masses appreciated. EXTREMITIES: Nontender, good range of motion, no pitting or edema. NEUROLOGICAL: No focal neurological deficits. Moves all extremities spontaneously Motor and sensory grossly intact on exam. PSYCH: Normal mood, normal affect. SKIN: Warm, Dry, normal turgor, no rashes or lesions noted on exposed skin - Related Data Allergies/Adverse Reactions: No Known Allergies Allergy (Verified 04/07/19 22:22) Past Medical History - Social History Smoking Status: Never Smoker Frequency of alcohol use: None Drug Abuse: None Family History: Reviewed & Not Pertinent Patient has suicidal ideation: No Patient has homicidal ideation: No Pulmonary Medical History: Reports: Hx Asthma - not on home O2, Hx Bronchitis Endocrine Medical History: Denies: Hx Diabetes Mellitus Type 1, Hx Diabetes Mellitus Type 2 Renal/ Medical History: Denies: Hx Peritoneal Dialysis GI Medical History: Reports: Hx Irritable Bowel - constipation Musculoskeletal Medical History: Reports Hx Arthritis, Reports Hx Musculoskeletal Trauma Psychiatric Medical History: Reports: Hx Anxiety, Hx Bipolar Disorder, Hx Depression, Hx Personality Disorder, Hx Schizoaffective Disorder, Hx Schizophrenia Traumatic Medical History: Reports: Hx Fractures - Finger fracture Past Surgical History: Reports: Hx Abdominal Surgery, Hx Appendectomy, Hx Cholecystectomy, Hx Orthopedic Surgery - fractured finger - Immunizations Immunizations up to date: Yes Hx Diphtheria, Pertussis, Tetanus Vaccination: Yes - 2012 Hx Pneumococcal Vaccination: 08/23/00 Physical Exam - Vital signs Vitals: Temp Pulse Resp BP Pulse Ox 98.3 F 63 20 145/83 H 96 04/11/19 23:51 04/11/19 23:51 04/11/19 23:51 04/11/19 23:51 04/11/19 23:51 Course - Re-evaluation Re-evalutation: 04/12/19 02:44 Vitals reviewed. Nursing notes reviewed. Patient is oxygenating well on room air and in no acute respiratory distress. He received aerosols and Solu-Medrol in the emergency room. He has multiple prescriptions of prednisone which I counseled him on taking for the next 5 days. Patient has a history of noncompl iance and frequent visits to the emergency room for his asthma. His presentation today is consistent with prior presentations. X-ray was obtained in triage which shows hyperinflation and no underlying pneumonia. Patient will be discharged and encouraged to continue his albuterol and steroids as directed. Chest X-Ray 04/11/19 00:00 IMPRESSION: Underlying hyperinflation copyright 2011 [employer]- All Rights Reserved - Vital Signs Vital signs: Temp Pulse Resp BP Pulse Ox 98.3 F 63 20 145/83 H 96 04/11/19 23:51 04/11/19 23:51 04/11/19 23:51 04/11/19 23:51 04/11/19 23:51 Discharge - Discharge Clinical Impression: Noncompliance Asthma exacerbation Qualifiers: Asthma severity: moderate Asthma persistence: unspecified Qualified Code(s): J45.901 - Unspecified asthma with (acute) exacerbation Condition: Stable Disposition: HOME, SELF-CARE Instructions: Asthma ([facility]) Additional Instructions: Please return to the emergency department if you have any worsening, or concern of your symptoms. Please return to the emergency department if you develop chest pain, difficulty breathing, severe abdominal pain, or ongoing vomiting. Please follow-up with your primary care physician in 2-3 days and any other recommended physicians. If prescribed, take all medications as directed. If you have any questions or concerns do not hesitate to return the emergency department for evaluation. Take 40 mg of prednisone for the next 5 days as previously prescribed to you Use your albuterol inhaler 2 puffs every 4 hours Referrals: GIANCARLO CHANCE MD [Primary Care Provider] - Follow up in 3-5 days
[2019-04-12 02:56] VITALS: BP 131/41
== END 2019-04-12 02:56 | disposition home or self-care (01) ==
LOC: ER 22:44
DX: J45.901 Unspecified asthma with (acute) exacerbation (principal); R06.02 Shortness of breath; R05 Cough; Z91.19 Patient's noncompliance with other medical treatment and regimen
CPT/HCPCS: 71046; J2930; J7620; 94640; 96374; 99284

== ENCOUNTER 2019-04-13 02:21 | Emergency (ER) | payer MEDICAID ==
[2019-04-13 02:29] VITALS: BP 134/98
[2019-04-13] MEDS ORDERED: BACITRACIN ZINC OINTMENT 15 GM TP ONE (03:42)
[2019-04-13] MEDS ORDERED: DIPHENHYDRAMINE HCL 25 MG CAPSULE PO ONE (03:43)
--- NOTE | 2019-04-13 03:43 | ER Document Report ---
ED General - General Chief Complaint: Insect Bite Stated Complaint: INSECT BITE Time Seen by Provider: 04/13/19 03:35 Primary Care Provider: GIANCARLO CHANCE MD [Primary Care Provider] - Follow up in 3-5 days Mode of Arrival: Ambulatory Information source: Patient Notes: 33-year-old male presents with concern with a bug bite to his right antecubital fossa that it happened just prior to arrival. Patient denies itching, swelling, pain. TRAVEL OUTSIDE OF THE [place] IN LAST 30 DAYS: No COUNTRY TRAVELED TO/FROM: [facility] - [facility] Onset: Just prior to arrival Onset/Duration: Sudden Quality of pain: No pain Severity: None Pain Level: Denies Associated symptoms: None Exacerbated by: Denies Relieved by: Denies Similar symptoms previously: No Recently seen / treated by doctor: No - Related Data Allergies/Adverse Reactions: No Known Allergies Allergy (Verified 04/07/19 22:22) Past Medical History - General Information source: Patient - Social History Smoking Status: Current Every Day Smoker Cigarette use (# per day): Yes - 10 Smoking Education Provided: Yes - Smoking cessation counseling was provided for 4 minutes at the bedside Drug Abuse: None Lives with: Homeless Family History: Reviewed & Not Pertinent Patient has suicidal ideation: No Patient has homicidal ideation: No Pulmonary Medical History: Reports: Hx Asthma - not on home O2, Hx Bronchitis Endocrine Medical History: Denies: Hx Diabetes Mellitus Type 1, Hx Diabetes Mellitus Type 2 Renal/ Medical History: Denies: Hx Peritoneal Dialysis GI Medical History: Reports: Hx Irritable Bowel - constipation Musculoskeletal Medical History: Reports Hx Arthritis, Reports Hx Musculoskeletal Trauma Psychiatric Medical History: Reports: Hx Anxiety, Hx Bipolar Disorder, Hx Depression, Hx Personality Disorder, Hx Schizoaffective Disorder, Hx Schizophrenia Traumatic Medical History: Reports: Hx Fractures - Finger fracture Past Surgical History: Reports: Hx Abdominal Surgery, Hx Appendectomy, Hx Cholecystectomy, Hx Orthopedic Surgery - fractured finger - Immunizations Immunizations up to date: Yes Hx Diphtheria, Pertussis, Tetanus Vaccination: Yes - 2012 Hx Pneumococcal Vaccination: 08/23/00 Review of Systems - Review of Systems Notes: REVIEW OF SYSTEMS: CONSTITUTIONAL : Denies fever, chills, or sweats. Denies recent illness. Denies weight loss, recent hospitalizations. EENT: Denies visual changes, eye pain. Denies sore throat, oral lesions, difficulty swallowing. CARDIOVASCULAR: Denies chest pain. Denies palpitations. Denies lower extremity edema. RESPIRATORY: Denies cough. Denies shortness of breath, wheezing. GASTROINTESTINAL: Denies abdominal pain or distention. Denies nausea, vomiting, or diarrhea. Denies blood in vomitus, stools, or per rectum. Denies black, tarry stools. Denies constipation. GENITOURINARY: Denies difficulty urinating, painful urination, frequency, blood in urine, testicular pain or penile discharge. MUSCULOSKELETAL: Denies back or neck pain or stiffness. Denies joint pain or swelling. SKIN: Denies rash, lesions or sores. HEMATOLOGIC : Denies easy bruising or bleeding. LYMPHATIC: Denies swollen glands. NEUROLOGICAL: Denies confusion or altered mental status. Denies loss of consciousness. Denies dizziness or lightheadedness. Denies headache. Denies weakness or paralysis. Denies problems difficulty with ambulation, slurred speech. Denies sensory loss, numbness, or tingling. Denies seizures. PSYCHIATRIC: Denies anxiety or stress. Denies depression, suicidal ideation, or Physical Exam - Vital signs Vitals: Temp Pulse Resp BP Pulse Ox 97.7 F 58 L 18 134/98 H 97 04/13/19 02:25 04/13/19 02:25 04/13/19 02:25 04/13/19 02:25 04/13/19 02:25 - Notes Notes: PHYSICAL EXAMINATION: GENERAL: Well-appearing, well-nourished and in no acute distress. HEAD: Atraumatic, normocephalic. EYES: Pupils equal round and reactive to light, extraocular movements intact, sclera anicteric, conjunctiva are normal. ENT: Nares patent, oropharynx clear without exudates. Moist mucous membranes. NECK: Normal range of motion, supple without lymphadenopathy LUNGS: Breath sounds clear to auscultation bilaterally and equal. No wheezes rales or rhonchi. HEART: Regular rate and rhythm without murmurs ABDOMEN: Soft, nontender, nondistended abdomen. No guarding, no rebound. No masses appreciated. Musculoskeletal: Normal range of motion, no pitting or edema. No cyanosis. NEUROLOGICAL: Cranial nerves grossly intact. Normal speech, normal gait. Normal sensory, motor exams PSYCH: Normal mood, normal affect. SKIN: No evidence of a bug bite, erythema, abscess, rash. Course - Re-evaluation Re-evalutation: 04/14/19 02:18 33-year-old male presents with a bug bite to his right antecubital fossa. Patient has no associated erythema, tenderness, swelling, itching. Patient insisted on a bedside ultrasound which was was performed and showed no evidence of abscess. Patient was given Benadryl and discharged home in stable condition. - Vital Signs Vital signs: Temp Pulse Resp BP Pulse Ox 97.7 F 58 L 18 134/98 H 97 04/13/19 02:25 04/13/19 02:25 04/13/19 02:25 04/13/19 02:25 04/13/19 02:25 Discharge - Discharge Clinical Impression: Insect bite Qualifiers: Encounter type: initial encounter Site of insect bite: forearm Laterality: right Qualified Code(s): S50.861A - Insect bite (nonvenomous) of right forearm, initial encounter Condition: Good Disposition: HOME, SELF-CARE Instructions: Swollen Insect Bite or Sting ([facility]) Forms: Elevated Blood Pressure Referrals: GIANCARLO CHANCE MD [Primary Care Provider] - Follow up in 3-5 days
== END 2019-04-13 03:56 | disposition home or self-care (01) ==
LOC: ER 02:21
DX: S50.361A Insect bite (nonvenomous) of right elbow, initial encounter (principal); W57.XXXA Bitten or stung by nonvenomous insect and other nonvenomous arthropods, initial encounter; J45.909 Unspecified asthma, uncomplicated; F17.210 Nicotine dependence, cigarettes, uncomplicated; Z71.6 Tobacco abuse counseling; Z59.0 Homelessness
CPT/HCPCS: 99281; 99406; J3490

== ENCOUNTER 2019-04-14 06:23 | Emergency (ER) | payer MEDICAID ==
[2019-04-14 06:34] VITALS: BP 178/100
--- NOTE | 2019-04-14 07:26 | ER Document Report ---
ED General - General Chief Complaint: Shortness Of Breath Stated Complaint: TOOTHACHE Time Seen by Provider: 04/14/19 07:20 Primary Care Provider: GIANCARLO CHANCE MD [Primary Care Provider] - Follow up as needed TRAVEL OUTSIDE OF THE [place] IN LAST 30 DAYS: No COUNTRY TRAVELED TO/FROM: [facility] - HPI Notes: Patient presents with pain in his right lower jawline at second molar right lower jawline where he has a cracked tooth. He states that he has not gone to the dentist yet. He does have Medicare. No recent fevers or illnesses. - Related Data Allergies/Adverse Reactions: No Known Allergies Allergy (Verified 04/07/19 22:22) Past Medical History - Social History Smoking Status: Unknown if Ever Smoked Family History: Reviewed & Not Pertinent Patient has suicidal ideation: No Patient has homicidal ideation: No Pulmonary Medical History: Reports: Hx Asthma - not on home O2, Hx Bronchitis Endocrine Medical History: Denies: Hx Diabetes Mellitus Type 1, Hx Diabetes Mellitus Type 2 Renal/ Medical History: Denies: Hx Peritoneal Dialysis GI Medical History: Reports: Hx Irritable Bowel - constipation Musculoskeletal Medical History: Reports Hx Arthritis, Reports Hx Musculoskeletal Trauma Psychiatric Medical History: Reports: Hx Anxiety, Hx Bipolar Disorder, Hx Depression, Hx Personality Disorder, Hx Schizoaffective Disorder, Hx Schizophrenia Traumatic Medical History: Reports: Hx Fractures - Finger fracture Past Surgical History: Reports: Hx Abdominal Surgery, Hx Appendectomy, Hx Cholecystectomy, Hx Orthopedic Surgery - fractured finger - Immunizations Immunizations up to date: Yes Hx Diphtheria, Pertussis, Tetanus Vaccination: Yes - 2012 Hx Pneumococcal Vaccination: 08/23/00 Review of Systems - Review of Systems Constitutional: No symptoms reported EENT: See HPI Cardiovascular: No symptoms reported Respiratory: No symptoms reported Gastrointestinal: No symptoms reported Genitourinary: No symptoms reported Male Genitourinary: No symptoms reported Musculoskeletal: No symptoms reported Skin: No symptoms reported Hematologic/Lymphatic: No symptoms reported Neurological/Psychological: No symptoms reported Physical Exam - Vital signs Vitals: Temp Pulse Resp BP Pulse Ox 98.4 F 102 H 16 178/100 H 93 04/14/19 06:30 04/14/19 06:30 04/14/19 06:30 04/14/19 06:30 04/14/19 06:30 - General General appearance: Appears well, Alert - HEENT Head: Normocephalic, Atraumatic Teeth diagram: 1 - Patient has cracked and second molar right lower jawline Pharynx: Normal Neck: Normal. No: Lymphadenopathy - Respiratory Respiratory status: No respiratory distress Chest status: Nontender Breath sounds: Normal - Cardiovascular Rhythm: Regular Heart sounds: Normal auscultation Murmur: No Course - Re-evaluation Re-evalutation: 04/14/19 07:25 Patient has minor swelling around lateral aspect of second molar right lower jawline with no evidence of gingival abscess. Will place patient on penicillin. Discussed with patient to call Medicare card that he has to determine history that would accept him for further evaluation. Return precautions provided - Vital Signs Vital signs: Temp Pulse Resp BP Pulse Ox 98.4 F 102 H 16 178/100 H 93 04/14/19 06:30 04/14/19 06:30 04/14/19 06:30 04/14/19 06:30 04/14/19 06:30 Discharge - Discharge Clinical Impression: Tooth pain Condition: Good Disposition: HOME, SELF-CARE Instructions: Toothache ([facility]) Prescriptions: Penicillin V Potassium [Penicillin Vk 500 mg Tablet] 500 mg PO BID #20 tablet Referrals: GIANCARLO CHANCE MD [Primary Care Provider] - Follow up as needed
== END 2019-04-14 07:36 | disposition home or self-care (01) ==
LOC: ER 06:23
DX: K08.89 Other specified disorders of teeth and supporting structures (principal); R06.02 Shortness of breath; J45.909 Unspecified asthma, uncomplicated
CPT/HCPCS: 99282

== ENCOUNTER 2019-04-14 19:38 | Emergency (ER) | payer MEDICAID ==
[2019-04-14] MEDS ORDERED: IPRATROPIUM/ALBUTEROL 0.5-2.5 MG/3 ML AMPUL NEB ONE ×3 (19:56→20:08)
[2019-04-14] MEDS ORDERED: METHYLPREDNISOLONE INJ 125 MG/2 ML SDV IV ONE (19:56)
[2019-04-14] MEDS ORDERED: BENZONATATE 100 MG CAPSULE PO ONE (20:09)
--- NOTE | 2019-04-14 20:11 | ER Document Report ---
ED Respiratory Problem - General Chief Complaint: Asthma Exacerbation Stated Complaint: SHORTNESS OF BREATH Time Seen by Provider: 04/14/19 20:04 Primary Care Provider: GIANCARLO CHANCE MD [Primary Care Provider] - 04/17/19 Notes: Patient is a 33-year-old male that comes to the emergency department for chief complaint of difficulty breathing. Patient has a history of asthma and has had frequent exacerbations this year particularly. Patient has been using his home inhaler without improvement. He denies fever/chills. Denies any other complaints at this time other than runny nose. Last past medical history also includes schizophrenia. Patient denies ever smoking. TRAVEL OUTSIDE OF THE [place] IN LAST 30 DAYS: No COUNTRY TRAVELED TO/FROM: [facility] - Related Data Allergies/Adverse Reactions: No Known Allergies Allergy (Verified 04/07/19 22:22) Past Medical History - General Information source: Patient - Social History Smoking Status: Never Smoker Frequency of alcohol use: None Drug Abuse: None Lives with: Alone Family History: Reviewed & Not Pertinent Pulmonary Medical History: Reports: Hx Asthma - not on home O2, Hx Bronchitis Endocrine Medical History: Denies: Hx Diabetes Mellitus Type 1, Hx Diabetes Mellitus Type 2 Renal/ Medical History: Denies: Hx Peritoneal Dialysis GI Medical History: Reports: Hx Irritable Bowel - constipation Musculoskeletal Medical History: Reports Hx Arthritis, Reports Hx Musculoskeletal Trauma Psychiatric Medical History: Reports: Hx Anxiety, Hx Bipolar Disorder, Hx Depression, Hx Personality Disorder, Hx Schizoaffective Disorder, Hx Schizophrenia Traumatic Medical History: Reports: Hx Fractures - Finger fracture Past Surgical History: Reports: Hx Abdominal Surgery, Hx Appendectomy, Hx Cholecystectomy, Hx Orthopedic Surgery - fractured finger - Immunizations Immunizations up to date: Yes Hx Diphtheria, Pertussis, Tetanus Vaccination: Yes - 2012 Hx Pneumococcal Vaccination: 08/23/00 Review of Systems - Review of Systems Constitutional: No symptoms reported EENT: No symptoms reported Cardiovascular: No symptoms reported Respiratory: See HPI Gastrointestinal: No symptoms reported Genitourinary: No symptoms reported Male Genitourinary: No symptoms reported Musculoskeletal: No symptoms reported Skin: No symptoms reported Hematologic/Lymphatic: No symptoms reported Neurological/Psychological: No symptoms reported Physical Exam - Vital signs Vitals: Resp BP Pulse Ox 11 L 149/82 H 94 04/14/19 20:03 04/14/19 20:03 04/14/19 20:03 - Notes Notes: GENERAL: Alert, interacts well. Slightly unkempt HEAD: Normocephalic, atraumatic. EYES: Pupils equal, round, and reactive to light. Extraocular movements intact. ENT: Oral mucosa moist, tongue midline. Oropharynx unremarkable. Airway patent. LUNGS: Scattered expiratory wheezes, frequent cough, however no tachypnea or labored breathing. No rales or rhonchi. HEART: Regular rate and rhythm. No murmur ABDOMEN: Soft, non-tender. Non-distended. EXTREMITIES: Moves all 4 extremities spontaneously. No edema, normal radial and dorsalis pedis pulses bilaterally. No cyanosis. BACK: no cervical, thoracic, lumbar midline tenderness. No saddle anesthesia, normal distal neurovascular exam. NEUROLOGICAL: Alert and oriented x3. Normal speech. Cranial nerves II through XII grossly intact. PSYCH: Friendly and talkative. Normal affect, normal mood. SKIN: Warm, dry, normal turgor. No rashes or lesions noted. Course - Re-evaluation Re-evalutation: On initial evaluation patient was already placed on 2 L nasal cannula, however he looks very well. He has scattered expiratory wheezes, but lung sounds are still clear and he has no tachypnea or signs of distress. He is not hypoxic on the oxygen. He is not tachycardic or febrile. Chest x-ray and EKG without acute findings. After DuoNeb's, Solu-Medrol, Tessalon patient was reevaluated, bronchospasm and cough have stopped, lungs are completely clear, patient was monitored and did not decompensate or start wheezing again. After while we attempted to ambulate him and he ambulated easily without respiratory distress, his oxygen saturation never dropped below 95%. He states he feels good. Discussed with patient. Patient will be started on prednisone, instructed to follow closely with his primary care, instructed to return if he worsens in any way. Patient states understanding and agreement. Stable at time of discharge. - Vital Signs Vital signs: Temp Pulse Resp BP Pulse Ox 98.2 F 13 119/58 L 95 04/15/19 02:28 04/15/19 02:28 04/15/19 02:28 04/15/19 02:28 Discharge - Discharge Clinical Impression: Wheezing Asthma exacerbation Qualifiers: Asthma severity: unspecified severity Asthma persistence: unspecified Qualified Code(s): J45.901 - Unspecified asthma with (acute) exacerbation Condition: Stable Disposition: HOME, SELF-CARE Additional Instructions: You have been treated for an asthma exacerbation today. Take the prednisone as prescribed. Follow-up with Dr. Chance on Wednesday for recheck. Return if you worsen including difficulty breathing, fever, or something is not right. Prescriptions: Prednisone [Deltasone 20 mg Tablet] 3 tab PO DAILY 5 Days tablet Referrals: GIANCARLO CHANCE MD [Primary Care Provider] - 04/17/19
[2019-04-14] MEDS ORDERED: ALBUTEROL SULFATE 0.083% NEB 2.5 MG/3 ML AMPUL NEB SCH (20:12)
--- NOTE | 2019-04-14 21:33 | RADIOLOGY REPORT (SQ) ---
EXAM DESCRIPTION: CLINICAL HISTORY: 33 years Male SOB COMPARISON: None. FINDINGS: The lungs appear hyperlucent in the apices. A definite pneumothorax is not noted. Suspect that this is due to film technique. No evidence of deep sulcus sign. The cardiomediastinal silhouette appears unremarkable. No consolidating infiltrates or pleural effusions. IMPRESSION: No evidence of acute process
[2019-04-15 02:31] VITALS: BP 119/58
--- NOTE | 2019-04-15 19:12 | EKG REPORT ---
SEVERITY:- NORMAL ECG - SINUS RHYTHM : Confirmed by: Ann Brewer MD 15-Apr-2019 19:11:58
== END 2019-04-15 02:52 | disposition home or self-care (01) ==
LOC: ER 19:38
DX: J45.901 Unspecified asthma with (acute) exacerbation (principal); R06.02 Shortness of breath
CPT/HCPCS: 93005; 94640; 99285; 96374; 71045; 93010; J3490; J2930; J7620

== ENCOUNTER 2019-04-16 12:31 | Emergency (ER) | payer MEDICAID ==
--- NOTE | 2019-04-16 13:16 | ER Document Report ---
HPI - HPI Patient complains to provider of: concern for liver function Time Seen by Provider: 04/16/19 12:57 Pain Level: 0 Context: Pleasant 33-year-old male with schizophrenia and asthma presents to the emergency department concerned about his liver function. Patient states that he called poison control because he has been taking acetaminophen intermittently for the last 3 and half weeks for tooth pain and he is concerned that he might be going into liver failure and he just wants to be sure. Patient denies any right upper quadrant abdominal pain, denies any easy bleeding or bruising, denies any yellowish color in his eyes or his skin, no other complaints. - REPRODUCTIVE Reproductive: DENIES: : Past Medical History - Social History Smoking Status: Unknown if Ever Smoked Family History: Reviewed & Not Pertinent Pulmonary Medical History: Reports: Hx Asthma - not on home O2, Hx Bronchitis Endocrine Medical History: Denies: Hx Diabetes Mellitus Type 1, Hx Diabetes Mellitus Type 2 Renal/ Medical History: Denies: Hx Peritoneal Dialysis GI Medical History: Reports: Hx Irritable Bowel - constipation Musculoskeletal Medical History: Reports Hx Arthritis, Reports Hx Musculoskeletal Trauma Psychiatric Medical History: Reports: Hx Anxiety, Hx Bipolar Disorder, Hx Depression, Hx Personality Disorder, Hx Schizoaffective Disorder, Hx Schizophr enia Traumatic Medical History: Reports: Hx Fractures - Finger fracture Past Surgical History: Reports: Hx Abdominal Surgery, Hx Appendectomy, Hx Chol ecystectomy, Hx Orthopedic Surgery - fractured finger - Immunizations Immunizations up to date: Yes Hx Diphtheria, Pertussis, Tetanus Vaccination: Yes - 2012 Hx Pneumococcal Vaccination: 08/23/00 Vertical Provider Document - CONSTITUTIONAL Notes: PHYSICAL EXAMINATION: Reviewed vital signs and charting by RN GENERAL: Alert, interacts well. No acute distress. HEAD: Normocephalic, atraumatic. EYES: Pupils equal and round. Extraocular movements intact. No scleral icterus ENT: Oral mucosa moist, tongue midline. NECK: Full range of motion. Trachea midline. ABDOMEN: soft, non-tender. No distention. Bowel sounds present EXTREMITIES: Moves all 4 extremities spontaneously. No edema, No cyanosis. PSYCH: Normal affect, normal mood. SKIN: Warm, dry, normal turgor. No rashes or lesions noted. No jaundice - INFECTION CONTROL TRAVEL OUTSIDE OF THE [place] IN LAST 30 DAYS: No COUNTRY TRAVELED TO/FROM: [facility] Course - Re-evaluation Re-evalutation: 04/16/19 13:13 Plans to get a liver function test to a sewage to the patient. Patient is in the emergency department several times a week. No evidence clinically of liver failure. 04/16/19 14:21 Liver biochemical testing within normal limits, patient informed and instructed to follow-up with her primary doctor. Stable for discharge. - Vital Signs Vital signs: Temp Pulse Resp BP Pulse Ox 98.8 F 99 16 131/72 H 96 04/16/19 12:38 04/16/19 12:38 04/16/19 12:38 04/16/19 12:38 04/16/19 12:38 Discharge - Discharge Clinical Impression: Normal exam, Normal liver function test results Condition: Good Disposition: HOME, SELF-CARE Additional Instructions: Your lab work returned normal. There is no evidence of liver failure on clinical exam or labs. It is okay to take Tylenol every day. You can take up to 1000 mg no more frequent than every 6 hours no more than 4000 mg/day. Please return to the emergency department if you become acutely short of breath or of severe chest pain, you notice that your eyes start to get yellow, you have right upper quadrant pain, or you have any other concerning symptoms. Referrals: GIACNARLO CHANCE MD [Primary Care Provider] - Follow up as needed
[2019-04-16 13:57] LABS: ALBUMIN 4.6 g/dL (3.5-5.0); ALKALINE PHOSPHATASE 80 U/L (38-126); ASPARTATE AMINO TRANSFERASE 20 U/L (17-59); BILIRUBIN,DIRECT 0.2 mg/dL (0.0-0.4); BILIRUBIN,TOTAL 1.1 mg/dL (0.2-1.3); TOTAL PROTEIN 7.2 g/dL (6.3-8.2)
[2019-04-16 14:36] VITALS: BP 128/76
== END 2019-04-16 14:37 | disposition home or self-care (01) ==
LOC: ER 12:31
DX: Z71.1 Person with feared health complaint in whom no diagnosis is made (principal); Z90.49 Acquired absence of other specified parts of digestive tract
CPT/HCPCS: 36415; 80076; 99284

== ENCOUNTER 2019-04-20 21:59 | Emergency (ER) | payer MEDICAID ==
[2019-04-21] MEDS ORDERED: ONDANSETRON 4 MG TAB.RAPDIS PO ONE (00:25)
[2019-04-21] MEDS ORDERED: IPRATROPIUM/ALBUTEROL 0.5-2.5 MG/3 ML AMPUL NEB ONE ×2 (01:28→01:29)
[2019-04-21] MEDS ORDERED: ONDANSETRON ODT 4 MG TAB (6 TAB/ER DISP) PO PRN (02:10)
--- NOTE | 2019-04-21 02:10 | ER Document Report ---
HPI - HPI Patient complains to provider of: vomiting Time Seen by Provider: 04/21/19 00:24 Pain Level: 5 Context: Patient is a 33-year-old male presents to the emergency department for one episode of vomiting. Patient states he was attempting to spray himself with cologne. States he feels as though he may have gotten a little bit on his lip. Patient states he also think he got some on his finger and then wiped it on his face. Patient's denying any respiratory distress at this time. States he has been taking his albuterol inhaler as prescribed. Patient states he spit out the cologne but then had one episode of vomiting. Patient is unsure of the name of the cologne. states he does not have it with him. Patient is denying any respiratory distress, chest pain. According to nursing staff patient spit up once in the waiting room but no one has noticed any further episodes of vomiting. - REPRODUCTIVE Reproductive: DENIES: : Past Medical History - General Information source: Patient - Social History Smoking Status: Unknown if Ever Smoked Family History: Reviewed & Not Pertinent Patient has suicidal ideation: No Patient has homicidal ideation: No Pulmonary Medical History: Reports: Hx Asthma - not on home O2, Hx Bronchitis Endocrine Medical History: Denies: Hx Diabetes Mellitus Type 1, Hx Diabetes Mellitus Type 2 Renal/ Medical History: Denies: Hx Peritoneal Dialysis GI Medical History: Reports: Hx Irritable Bowel - constipation Musculoskeletal Medical History: Reports Hx Arthritis, Reports Hx Musculoskeletal Trauma Psychiatric Medical History: Reports: Hx Anxiety, Hx Bipolar Disorder, Hx Depression, Hx Personality Disorder, Hx Schizoaffective Disorder, Hx Schizophrenia Traumatic Medical History: Reports: Hx Fractures - Finger fracture Past Surgical History: Reports: Hx Abdominal Surgery, Hx Appendectomy, Hx Cholecystectomy, Hx Orthopedic Surgery - fractured finger - Immunizations Immunizations up to date: Yes Hx Diphtheria, Pertussis, Tetanus Vaccination: Yes - 2012 Hx Pneumococcal Vaccination: 08/23/00 Vertical Provider Document - CONSTITUTIONAL Agree With Documented VS: Yes Notes: GENERAL: Alert, interacts well. No acute distress. HEAD: Normocephalic, atraumatic. EYES: Pupils equal, round, and reactive to light. Extraocular movements intact. ENT: Oral mucosa moist, tongue midline. NECK: Full range of motion. Supple. Trachea midline. LUNGS: Clear to auscultation bilaterally, no wheezes, rales, or rhonchi. No respiratory distress. HEART: Regular rate and rhythm. No murmur ABDOMEN: Soft, non-tender. Non-distended. Bowel sounds present in all 4 quadrants. EXTREMITIES: Moves all 4 extremities spontaneously. No edema, normal radial and dorsalis pedis pulses bilaterally. No cyanosis. BACK: no cervical, thoracic, lumbar midline tenderness. No saddle anesthesia, normal distal neurovascular exam. NEUROLOGICAL: Alert and oriented x3. Normal speech. cranial nerves II through XII grossly intact PSYCH: Normal affect, normal mood. SKIN: Warm, dry, normal turgor. No rashes or lesions noted. - INFECTION CONTROL TRAVEL OUTSIDE OF THE [place] IN LAST 30 DAYS: No COUNTRY TRAVELED TO/FROM: [facility] Course - Re-evaluation Re-evalutation: 04/21/19 02:08 To my arrival to the room patient is attempting to plug in his cell phone. Patient voices no complaints. Patient states he may have sprayed some of the cologne on his finger. Patient voices that he does not think he swallowed any of it. Patient's denying any nausea at this time. Patient is requesting a to go pack of Zofran "just in case I get nauseous." Patient stable for discharge. 04/21/19 02:11 Breathing treatment was ordered by staff psychologist prior to my assessment of the patient. My assessment reveals clear lung sounds in all garcia. - Vital Signs Vital signs: Temp Pulse Resp BP Pulse Ox 98.8 F 103 H 19 134/84 H 94 04/20/19 22:05 04/20/19 22:05 04/20/19 22:05 04/20/19 22:05 04/20/19 22:05 Discharge - Discharge Clinical Impression: Nausea & vomiting Qualifiers: Vomiting type: unspecified Vomiting Intractability: non-intractable Qualified Code(s): R11.2 - Nausea with vomiting, unspecified Condition: Stable Disposition: HOME, SELF-CARE Instructions: Antinausea Medication ([facility]), Vomiting ([facility]) Additional Instructions: As we discussed you have been seen and treated in the emergency department for nausea, vomiting. Please use nausea medication only as needed. Please make sure you are taking your home medications as prescribed. Please follow-up with your primary care provider in the next 24 to 48 hours. Return to the emergency room for any further concerns. Referrals: GIANCARLO CHANCE MD [Primary Care Provider] - Follow up as needed
[2019-04-21 02:36] VITALS: BP 120/75
== END 2019-04-21 02:36 | disposition home or self-care (01) ==
LOC: ER 21:59
DX: R11.2 Nausea with vomiting, unspecified (principal); J45.909 Unspecified asthma, uncomplicated; Z90.49 Acquired absence of other specified parts of digestive tract
CPT/HCPCS: 94640; 99283; S0119; J7620

== ENCOUNTER 2019-04-22 07:17 | Emergency (ER) | payer MEDICAID ==
[2019-04-22 07:22] VITALS: BP 110/73
[2019-04-22] MEDS ORDERED: ALBUTEROL SULFATE HFA (90 MCG/PUFF) 8 GM MDI (1 MDI/ER DISP) IH ONE (07:29)
--- NOTE | 2019-04-22 07:32 | ER Document Report ---
HPI - HPI Patient complains to provider of: Medication refill Time Seen by Provider: 04/22/19 07:29 Pain Level: Denies Context: Patient is a 33-year-old male presents to the emergency department for refill of his albuterol inhaler. Patient voices over the last couple of days he "had a little bit of asthma." Patient's denying respiratory distress at this time. Patient voices that he feels as though he "fixed myself." Patient's denying any URI symptoms or chest pain. Patient is calm and cooperative with staff just asking for a new albuterol inhaler. - REPRODUCTIVE Reproductive: DENIES: : Past Medical History - General Information source: Patient - Social History Smoking Status: Unknown if Ever Smoked Family History: Reviewed & Not Pertinent Pulmonary Medical History: Reports: Hx Asthma - not on home O2, Hx Bronchitis Endocrine Medical History: Denies: Hx Diabetes Mellitus Type 1, Hx Diabetes Mellitus Type 2 Renal/ Medical History: Denies: Hx Peritoneal Dialysis GI Medical History: Reports: Hx Irritable Bowel - constipation Musculoskeletal Medical History: Reports Hx Arthritis, Reports Hx Musculoskeletal Trauma Psychiatric Medical History: Reports: Hx Anxiety, Hx Bipolar Disorder, Hx Depression, Hx Personality Disorder, Hx Schizoaffective Disorder, Hx Schizophrenia Traumatic Medical History: Reports: Hx Fractures - Finger fracture Past Surgical History: Reports: Hx Abdominal Surgery, Hx Appendectomy, Hx Cholecystectomy, Hx Orthopedic Surgery - fractured finger - Immunizations Immunizations up to date: Yes Hx Diphtheria, Pertussis, Tetanus Vaccination: Yes - 2012 Hx Pneumococcal Vaccination: 08/23/00 Vertical Provider Document - CONSTITUTIONAL Agree With Documented VS: Yes Notes: GENERAL: Alert, interacts well. No acute distress. HEAD: Normocephalic, atraumatic. EYES: Pupils equal, round, and reactive to light. Extraocular movements intact. ENT: Oral mucosa moist, tongue midline. NECK: Full range of motion. Supple. Trachea midline. LUNGS: Clear to auscultation bilaterally, no wheezes, rales, or rhonchi. No respiratory distress. HEART: Regular rate and rhythm. No murmur ABDOMEN: Soft, non-tender. Non-distended. Bowel sounds present in all 4 quadrants. EXTREMITIES: Moves all 4 extremities spontaneously. No edema, normal radial and dorsalis pedis pulses bilaterally. No cyanosis. BACK: no cervical, thoracic, lumbar midline tenderness. No saddle anesthesia, normal distal neurovascular exam. NEUROLOGICAL: Alert and oriented x3. Normal speech. cranial nerves II through XII grossly intact PSYCH: Normal affect, normal mood. SKIN: Warm, dry, normal turgor. No rashes or lesions noted. - INFECTION CONTROL TRAVEL OUTSIDE OF THE [place] IN LAST 30 DAYS: No COUNTRY TRAVELED TO/FROM: [facility] Course - Re-evaluation Re-evalutation: 04/22/19 07:31 Patient is in no respiratory distress while in the emergency department. His lung sounds are clear and equal in all garcia. Patient is not tachypneic and afebrile. Albuterol inhaler provided to the patient in the emergency department as well as a prescription. At this time will discharge with return precautions and follow-up recommendations. Verbal discharge instructions given a the bedside and opportunity for questions given. Medication warnings reviewed. Patient is in agreement with this plan and has verbalized understanding of return precautions and the need for primary care follow-up in the next 24-72 hours. This medical record was dictated with voice recognizing software. There may be grammatical, syntax errors that are unintended. - Vital Signs Vital signs: Temp Pulse Resp BP Pulse Ox 97.6 F 60 16 110/73 97 04/22/19 07:22 04/22/19 07:22 04/22/19 07:22 04/22/19 07:22 04/22/19 07:22 Discharge - Discharge Clinical Impression: Medication refill Condition: Stable Disposition: HOME, SELF-CARE Additional Instructions: You have been seen and treated in the emergency department for medication refill. Please only use your albuterol if you have respiratory distress. Please also follow-up with your primary care provider in the next 24 to 48 hours. Return to the emergency room for any further concerns. Prescriptions: Albuterol Sulfate [Proair HFA Inhalation Aerosol 8.5 gm MDI] 2 puff IH Q4H PRN #1 mdi PRN Reason: Referrals: GIANCARLO CHANCE MD [Primary Care Provider] - Follow up as needed
== END 2019-04-22 07:49 | disposition home or self-care (01) ==
LOC: ER 07:17
DX: Z76.0 Encounter for issue of repeat prescription (principal); J45.909 Unspecified asthma, uncomplicated
CPT/HCPCS: 99281; J3490

== ENCOUNTER 2019-04-23 05:54 | Emergency (ER) | payer MEDICAID ==
[2019-04-23 06:14] VITALS: BP 126/61
[2019-04-23] MEDS ORDERED: CHLORPHENIRAMINE MALEATE 4 MG TABLET PO ONE (07:02)
[2019-04-23] MEDS ORDERED: BENZONATATE 100 MG CAPSULE PO ONE (07:02)
--- NOTE | 2019-04-23 07:26 | ER Document Report ---
Entered by MALU VERGARA SCRIBE 04/23/19 0643 Acting as scribe for:LENIN SOLIS MD ED General - General Chief Complaint: Cough Stated Complaint: COUGHING Time Seen by Provider: 04/23/19 06:36 Primary Care Provider: GIANCARLO CHANCE MD [Primary Care Provider] - Follow up as needed Information source: Patient Notes: 33 year old homeless male that is extremely well known to this emergency department (x23 visits in the last month) presents today with complaints of a cough which is chronic for him. Patient states "whats the point of getting my asthma down if it just makes my cough go up". Patient requesting a "rectangular pill". TRAVEL OUTSIDE OF THE [place] IN LAST 30 DAYS: No COUNTRY TRAVELED TO/FROM: [facility] - Related Data Allergies/Adverse Reactions: No Known Allergies Allergy (Verified 04/23/19 13:50) Past Medical History - General Information source: Patient, [facility] Records - Social History Smoking Status: Never Smoker Cigarette use (# per day): No Chew tobacco use (# tins/day): No Smoking Education Provided: No Frequency of alcohol use: Occasional Drug Abuse: None Occupation: Unemployed Lives with: Homeless Family History: Reviewed & Not Pertinent Patient has suicidal ideation: No Patient has homicidal ideation: No Pulmonary Medical History: Reports: Hx Asthma - not on home O2, Hx Bronchitis GI Medical History: Reports: Hx Irritable Bowel - constipation Musculoskeletal Medical History: Reports Hx Arthritis, Reports Hx Musculoskeletal Trauma Psychiatric Medical History: Reports: Hx Anxiety, Hx Bipolar Disorder, Hx Depression, Hx Personality Disorder, Hx Schizoaffective Disorder, Hx S chizophrenia Traumatic Medical History: Reports: Hx Fractures - Finger fracture Past Surgical History: Reports: Hx Abdominal Surgery, Hx Appendectomy, Hx Cholecystectomy, Hx Orthopedic Surgery - fractured finger - Immunizations Immunizations up to date: Yes Hx Diphtheria, Pertussis, Tetanus Vaccination: Yes - 2012 Hx Pneumococcal Vaccination: 08/23/00 Review of Systems - Review of Systems Constitutional: No symptoms reported EENT: No symptoms reported Cardiovascular: No symptoms reported Respiratory: See HPI, Cough Gastrointestinal: No symptoms reported Genitourinary: No symptoms reported Male Genitourinary: No symptoms reported Musculoskeletal: No symptoms reported Skin: No symptoms reported Hematologic/Lymphatic: No symptoms reported Neurological/Psychological: No symptoms reported -: Yes All other systems reviewed and negative Physical Exam - Vital signs Vitals: Temp Pulse Resp BP Pulse Ox 98.1 F 84 24 H 126/61 H 94 04/23/19 06:11 04/23/19 06:11 04/23/19 06:11 04/23/19 06:11 04/23/19 06:11 - Notes Notes: Physical Exam: General: Alert, appears disheveled, malodorous. HEENT: Normocephalic. Atraumatic. PERRL. Extraocular movements intact. Oropharynx clear. Neck: Supple. Non-tender. Respiratory: No respiratory distress. Rhonchi bilaterally which is chronic. Cardiovascular: Regular rate and rhythm. Abdominal: Normal Inspection. Non-tender. No distension. Normal Bowel Sounds. Back: No gross abnormalities. Extremities: Moves all four extremities. Upper extremities: Normal inspection. Normal ROM. Lower extremities: Normal inspection. No edema. Normal ROM. Neurological: Normal cognition. AAOx4. Normal speech. Psychological: Normal affect. Normal Mood. Skin: Warm. Dry. Normal color. Course - Vital Signs Vital signs: Temp Pulse Resp BP Pulse Ox 98.1 F 84 24 H 126/61 H 94 04/23/19 06:11 04/23/19 06:11 04/23/19 06:11 04/23/19 06:11 04/23/19 06:11 Discharge - Discharge Clinical Impression: Congestion of upper respiratory tract, Cough Condition: Stable Disposition: HOME, SELF-CARE Additional Instructions: Take medication as prescribed for congestion. Stop smoking. Drink plenty of fluids and get plenty of rest. Follow-up with Dr. Chance in the office for your medical care. RETURN TO THE EMERGENCY ROOM IF ANY NEW OR WORSENING SYMPTOMS. Prescriptions: Chlorpheniramine Maleate [Chlor-Trimeton 4 mg Tablet] 1 tab PO Q6 PRN #20 tab PRN Reason: Congestion Referrals: GIANCARLO CHANCE MD [Primary Care Provider] - Follow up as needed Scribe Attestation: 04/23/19 07:12 I personally performed the services described in the documentation, reviewed and edited the documentation which was dictated to the scribe in my presence, and it accurately records my words and actions. I personally performed the services described in the documentation, reviewed and edited the documentation which was dictated to the scribe in my presence, and it accurately records my words and actions.
== END 2019-04-23 07:24 | disposition home or self-care (01) ==
LOC: ER 05:54
DX: R05 Cough (principal); R09.89 Other specified symptoms and signs involving the circulatory and respiratory systems; J45.909 Unspecified asthma, uncomplicated; Z59.0 Homelessness
CPT/HCPCS: 99283; J3490

== ENCOUNTER 2019-04-23 13:49 | Emergency (ER) | payer MEDICAID ==
[2019-04-23 14:02] VITALS: BP 122/74
--- NOTE | 2019-04-23 14:34 | ER Document Report ---
HPI - HPI Patient complains to provider of: medication refill Time Seen by Provider: 04/23/19 14:23 Pain Level: Denies Context: 33-year-old male well-known to the ER with a history of homelessness, schizophrenia, asthma, here for a medication refill. He is requesting a refill of his albuterol inhaler. He did just receive an albuterol inhaler here yesterday. When I inquired about this he states that he was at [facility] and somehow lost it at [facility] and cannot find it needs a refill. He denies any other symptoms or complaints. - ROS Systems Reviewed and Negative: Yes All other systems reviewed and negative - negative to include 10 systems, unless mentioned in the hpi - REPRODUCTIVE Reproductive: DENIES: : Past Medical History - General Information source: Patient - Social History Smoking Status: Never Smoker Frequency of alcohol use: None Drug Abuse: None Lives with: Homeless Family History: Reviewed & Not Pertinent Patient has suicidal ideation: No Patient has homicidal ideation: No Pulmonary Medical History: Reports: Hx Asthma - not on home O2, Hx Bronchitis Endocrine Medical History: Denies: Hx Diabetes Mellitus Type 1, Hx Diabetes Mellitus Type 2 Renal/ Medical History: Denies: Hx Peritoneal Dialysis GI Medical History: Reports: Hx Irritable Bowel - constipation Musculoskeletal Medical History: Reports Hx Arthritis, Reports Hx Musculoskeletal Trauma Psychiatric Medical History: Reports: Hx Anxiety, Hx Bipolar Disorder, Hx Depression, Hx Personality Disorder, Hx Schizoaffective Disorder, Hx Schizophrenia Traumatic Medical History: Reports: Hx Fractures - Finger fracture Past Surgical History: Reports: Hx Abdominal Surgery, Hx Appendectomy, Hx Cholecystectomy, Hx Orthopedic Surgery - fractured finger - Immunizations Immunizations up to date: Yes Hx Diphtheria, Pertussis, Tetanus Vaccination: Yes - 2012 Hx Pneumococcal Vaccination: 08/23/00 Vertical Provider Document - CONSTITUTIONAL Agree With Documented VS: Yes Exam Limitations: No Limitations General Appearance: No Apparent Distress Notes: >>>> PHYSICAL_EXAM: GENERAL_APPEARANCE: well_nourished, alert, cooperative, no_acute_distress, no_obvious_discomfort. pleasant, thin young black male playing on his cellular device, smiling, speaking in full sentences, in no sign of pain or resp distress, VITALS: reviewed, see vital signs table. HEAD: no_swelling\tenderness on the head. normocephalic. atraumatic. no thompson signs. no raccoons eyes. EYES: PERRL, EOMI, conjunctiva_clear. NOSE: no_nasal_discharge. MOUTH: (-)decreased moisture. THROAT: no_tonsilar_inflammation, no_airway_obstruction. no_lymphadenopathy NECK: supple, no_neck_tenderness, full rom. full strength. no meningeal signs. BACK: no_back_tenderness. CHEST_WALL: no_chest_tenderness. no overlying skin changes LUNGS: no_wheezing, ctab (-)accessory muscle use, good air exchange bi lateral. HEART: normal_rate, normal_rhythm, EXTREMITIES: strength 5/5 in all_extremities, good pulses in all_extremities, no_swelling\tenderness in the extremities, no_edema. full rom. normal gait. good pulses. brisk cap refill. good hand bread wrapper. NEURO: motor and sensation intact, SKIN: warm, dry, good_color, no_rash. MENTAL_STATUS: speech_clear, oriented_X_3, normal_affect, responds_approp riately to questions. - INFECTION CONTROL TRAVEL OUTSIDE OF THE [place] IN LAST 30 DAYS: No COUNTRY TRAVELED TO/FROM: [facility] Course - Re-evaluation Re-evalutation: 04/23/19 19:28 Pt here for a medication refill his albuterol inhaler. He denies any concerns or complaints. I did refill his inhaler. advised to f/u with pcp in 1-2 days. return for any worsening symptoms. vss. well appearing. satting well on ra. neurononfocal. pt understands and agrees to plan. On reexam, pt improved with tx listed. remained stable. nontoxic. well appearing. tolerating po. requesting to go home. Documentation achieved through voice recording which may lead to some occasional accidental typographical errors. Extensive efforts have been made to proof read documentation to make sure these are the least as possible. - Vital Signs Vital signs: Temp Pulse Resp BP Pulse Ox 98 F 78 16 122/74 98 04/23/19 14:01 04/23/19 14:01 04/23/19 14:01 04/23/19 14:01 04/23/19 14:01 Discharge - Discharge Clinical Impression: Medication refill Condition: Good Disposition: HOME, SELF-CARE Instructions: Asthma ([facility]) Additional Instructions: Follow-up with PCP in 1 to 2 days. Return for any worsening symptoms. tylenol or motrin as needed for any pain or fever if not allergic. take the medication as prescribed. Prescriptions: Albuterol Sulfate [Albuterol Sulfate Hfa] 1 puff IH Q4 PRN #1 [email or web address] PRN Reason: For Wheezing Referrals: GIANCARLO CHANCE MD [Primary Care Provider] - Follow up as needed
== END 2019-04-23 14:57 | disposition home or self-care (01) ==
LOC: ER 13:49
DX: Z76.0 Encounter for issue of repeat prescription (principal); J45.909 Unspecified asthma, uncomplicated; Z59.0 Homelessness
CPT/HCPCS: 99281

== ENCOUNTER 2019-04-23 21:26 | Emergency (ER) | payer MEDICAID ==
[2019-04-23] MEDS ORDERED: ALBUTEROL SULFATE 0.083% NEB 2.5 MG/3 ML AMPUL NEB ONE (21:38)
[2019-04-23] MEDS ORDERED: ALBUTEROL SULFATE HFA (90 MCG/PUFF) 8 GM MDI (1 MDI/ER DISP) IH ONE (23:28)
[2019-04-23] MEDS ORDERED: IPRATROPIUM/ALBUTEROL 0.5-2.5 MG/3 ML AMPUL NEB ONE (23:37)
[2019-04-23] MEDS ORDERED: PREDNISONE 20 MG TABLET PO ONE (23:37)
--- NOTE | 2019-04-23 23:38 | ER Document Report ---
HPI - HPI Time Seen by Provider: 04/23/19 23:28 Pain Level: 4 Notes: Patient is a 33-year-old male with past medical history of asthma presenting with chief complaint shortness of breath. Patient also reports he needs a refill on his inhaler. Patient denies any recent fever. He does report increased sputum production. He states his symptoms have been going on for 2 days. - REPRODUCTIVE Reproductive: DENIES: : - DERM Skin Color: Normal, [place] Past Medical History - General Information source: Patient - Social History Smoking Status: Never Smoker Frequency of alcohol use: None Drug Abuse: None Family History: Reviewed & Not Pertinent Patient has suicidal ideation: No Patient has homicidal ideation: No Pulmonary Medical History: Reports: Hx Asthma - not on home O2, Hx Bronchitis Endocrine Medical History: Denies: Hx Diabetes Mellitus Type 1, Hx Diabetes Mellitus Type 2 Renal/ Medical History: Denies: Hx Peritoneal Dialysis GI Medical History: Reports: Hx Irritable Bowel - constipation Musculoskeletal Medical History: Reports Hx Arthritis, Reports Hx Musculoskeletal Trauma Psychiatric Medical History: Reports: Hx Anxiety, Hx Bipolar Disorder, Hx Depression, Hx Personality Disorder, Hx Schizoaffective Disorder, Hx Schizophrenia Traumatic Medical History: Reports: Hx Fractures - Finger fracture Past Surgical History: Reports: Hx Abdominal Surgery, Hx Appendectomy, Hx Cholecystectomy, Hx Orthopedic Surgery - fractured finger - Immunizations Immunizations up to date: Yes Hx Diphtheria, Pertussis, Tetanus Vaccination: Yes - 2012 Hx Pneumococcal Vaccination: 08/23/00 Vertical Provider Document - CONSTITUTIONAL Notes: PHYSICAL EXAMINATION: GENERAL: Well-appearing, well-nourished and in no acute distress. HEAD: Atraumatic, normocephalic. EYES: Pupils equal round extraocular movements intact, conjunctiva are normal. ENT: Nares patent NECK: Normal range of motion LUNGS: Mild expiratory wheezes noted bilaterally. Musculoskeletal: Normal range of motion NEUROLOGICAL: Normal speech, normal gait. PSYCH: Normal mood, normal affect. SKIN: Warm, Dry, normal turgor, no rashes or lesions noted. - INFECTION CONTROL TRAVEL OUTSIDE OF THE [place] IN LAST 30 DAYS: No COUNTRY TRAVELED TO/FROM: [facility] Course - Re-evaluation Re-evalutation: Patient improved after medications given here in the emergency department. Patient will be started on outpatient prednisone, inhaler refilled per patient request. Patient will be discharged home in stable condition with strict ED return precautions. - Vital Signs Vital signs: Temp Pulse Resp BP Pulse Ox 102 H 32 H 148/76 H 92 04/23/19 21:39 04/23/19 21:39 04/23/19 21:39 04/23/19 21:39 Discharge - Discharge Clinical Impression: Asthma exacerbation Qualifiers: Asthma severity: mild Asthma persistence: unspecified Qualified Code(s): J45.901 - Unspecified asthma with (acute) exacerbation Condition: Stable Disposition: HOME, SELF-CARE Additional Instructions: You were seen for an asthma exacerbation. Your symptoms improved with treatment here in the emergency department. However, it is very important that you return to the emergency department immediately if you began to have worsening difficulty breathing that does not respond to your normal home nebulizers. You are also being sent home on a five-day course of steroids that you should start taking tomorrow. Please also follow closely with your primary care physician. you should also return to emergency department if you develop fever greater than 101, persistent cough, persistent vomiting, pass out, or any other symptoms that are concerning to you. Prescriptions: Prednisone [Deltasone 20 mg Tablet] 3 tab PO DAILY 4 Days #12 tablet Referrals: GIANCARLO CHANCE MD [Primary Care Provider] - Follow up as needed
[2019-04-24 01:00] VITALS: BP 123/69
== END 2019-04-24 01:30 | disposition home or self-care (01) ==
LOC: ER 21:26
DX: J45.901 Unspecified asthma with (acute) exacerbation (principal); R06.02 Shortness of breath; Z76.0 Encounter for issue of repeat prescription
CPT/HCPCS: 94640 ×2; 99284; J7512; J3490; J7620

== ENCOUNTER 2019-04-25 01:39 | Emergency (ER) | payer MEDICAID ==
[2019-04-25] MEDS ORDERED: IPRATROPIUM/ALBUTEROL 0.5-2.5 MG/3 ML AMPUL NEB ONE ×2 (02:30→05:04)
[2019-04-25] MEDS ORDERED: ALBUTEROL SULFATE 0.083% NEB 2.5 MG/3 ML AMPUL NEB ONE ×2 (02:31)
--- NOTE | 2019-04-25 02:32 | ER Document Report ---
ED General - General Chief Complaint: Shortness Of Breath Stated Complaint: WHEEZING,COUGH Time Seen by Provider: 04/25/19 02:17 Primary Care Provider: GIANCARLO CHANCE MD [Primary Care Provider] - Follow up as needed Mode of Arrival: Ambulatory Information source: Patient Notes: Patient is a 33-year-old known asthmatic male presenting to the emergency department with shortness of breath and wheezing. Patient reports he was seen here approximately 24 hours ago, was given breathing treatments and prednisone and he states he is getting worse. Patient reports he has been using his inhaler that was discharged with him. He denies any fevers, denies any sputum production. TRAVEL OUTSIDE OF THE [place] IN LAST 30 DAYS: No COUNTRY TRAVELED TO/FROM: [facility] - Related Data Allergies/Adverse Reactions: No Known Allergies Allergy (Verified 04/23/19 13:50) Past Medical History - General Information source: Patient - Social History Smoking Status: Former Smoker Chew tobacco use (# tins/day): No Frequency of alcohol use: Social Drug Abuse: None Family History: Reviewed & Not Pertinent Patient has suicidal ideation: No Patient has homicidal ideation: No Pulmonary Medical History: Reports: Hx Asthma - not on home O2, Hx Bronchitis Endocrine Medical History: Denies: Hx Diabetes Mellitus Type 1, Hx Diabetes Mellitus Type 2 Renal/ Medical History: Denies: Hx Peritoneal Dialysis GI Medical History: Reports: Hx Irritable Bowel - constipation Musculoskeletal Medical History: Reports Hx Arthritis, Reports Hx Musculoskeletal Trauma Psychiatric Medical History: Reports: Hx Anxiety, Hx Bipolar Disorder, Hx Depression, Hx Personality Disorder, Hx Schizoaffective Disorder, Hx Schizophrenia Traumatic Medical History: Reports: Hx Fractures - Finger fracture Past Surgical History: Reports: Hx Abdominal Surgery, Hx Appendectomy, Hx Cholecystectomy, Hx Orthopedic Surgery - fractured finger - Immunizations Immunizations up to date: Yes Hx Diphtheria, Pertussis, Tetanus Vaccination: Yes - 2012 Hx Pneumococcal Vaccination: 08/23/00 Review of Systems - Review of Systems Constitutional: No symptoms reported EENT: No symptoms reported Cardiovascular: No symptoms reported Respiratory: Cough, Short of breath Gastrointestinal: No symptoms reported Genitourinary: No symptoms reported Male Genitourinary: No symptoms reported Musculoskeletal: No symptoms reported Skin: No symptoms reported Hematologic/Lymphatic: No symptoms reported Neurological/Psychological: No symptoms reported Physical Exam - Vital signs Vitals: Temp Pulse Resp BP Pulse Ox 99.2 F 81 22 H 115/53 L 92 04/25/19 01:44 04/25/19 01:44 04/25/19 01:44 04/25/19 01:44 04/25/19 01:44 - Notes Notes: PHYSICAL EXAMINATION: GENERAL: Well-appearing, well-nourished. HEAD: Atraumatic, normocephalic. EYES: Pupils equal round and reactive to light, extraocular movements intact, sclera anicteric, conjunctiva are normal. ENT: Nares patent, oropharynx clear without exudates. Moist mucous membranes. NECK: Normal range of motion, supple without lymphadenopathy LUNGS: Inspiratory and expiratory wheezes noted bilaterally, patient in tripod position. Increased work of breathing. HEART: Regular rate and rhythm without murmurs ABDOMEN: Soft, nontender, nondistended abdomen. No guarding, no rebound. No masses appreciated. Musculoskeletal: Normal range of motion, no pitting or edema. No cyanosis. NEUROLOGICAL: Cranial nerves grossly intact. Normal speech, normal gait. Normal sensory, motor exams PSYCH: Normal mood, normal affect. SKIN: Warm, Dry, normal turgor, no rashes or lesions noted. Course - Re-evaluation Re-evalutation: Patient was given breathing treatments, Solu-Medrol and 2 g of magnesium here in the emergency department today. Chest x-ray was taken and was negative. Patient did have significant improvement of his work of breathing after administration of treatments, his pulse ox was initially in the low 90s and he was tachypneic with a respiratory rate of 28. At the time of reevaluation patient's pulse ox is 100%, his heart rate is 74 and his pulse ox is 96%. He does still have some faint wheezes bilaterally but is significantly improved. Patient will be discharged home, he has an inhaler for use. I encouraged him to please follow-up with his primary care provider for consideration of a daily inhaled corticosteroid as patient has been seen in this emergency department multiple times for the same complaint. - Vital Signs Vital signs: Temp Pulse Resp BP Pulse Ox 99.2 F 81 14 94/61 L 91 L 04/25/19 01:44 04/25/19 01:44 04/25/19 05:01 04/25/19 05:01 04/25/19 05:01 Discharge - Discharge Clinical Impression: Cough Asthma exacerbation Qualifiers: Asthma severity: mild Asthma persistence: intermittent Qualified Code(s): J45.21 - Mild intermittent asthma with (acute) exacerbation Condition: Stable Disposition: HOME, SELF-CARE Additional Instructions: Asthma You have been diagnosed as having asthma. This is a condition where there is episodic tightness in the bronchial tubes. Allergies, infections, and polluted or cold air may be contributing factors. Emergency treatment of a severe asthma attack may include adrenaline shots, or bronchodilator aerosol. You may feel lightheaded, have a decreased exercise tolerance and a rapid pulse for an hour or two. Rest and get plenty of fluids. Home treatment of asthma requires bronchodilator drugs. These can be administered by injection, inhalation, or by mouth. Antibiotics and corticosteroids may be required for some patients. You should avoid chemical fumes, dusts, pollens, and exercising in very cold or dry air. If you smoke, stop!! If you develop a fever, increased wheezing, chest pain, or severe shortness of breath, you should contact the doctor immediately please use your inhalers as discussed. please make a follow-up appointme nt with your PCP for 1-2 days from now. please ask them to consider a daily inhaled corticosteroid. Referrals: GIANCARLO CHANCE MD [Primary Care Provider] - Follow up as needed
[2019-04-25] MEDS: MAGNESIUM SULFATE/D5W 1 GM/100 ML RTUPB IV SCH ×2 (02:40→02:52)
--- NOTE | 2019-04-25 03:08 | RADIOLOGY REPORT (SQ) ---
CLINICAL HISTORY: cough, wheeze, chills COMPARISON: April 14, 2019 TECHNIQUE: XR CHEST 1 VIEW 04/25/2019 2:33 AM CDT FINDINGS: Cardiac silhouette is normal in size. Lungs are clear without consolidation, atelectasis, mass or edema. There is no pleural effusion. There is no pneumothorax. There are no acute osseous findings. IMPRESSION: Clear lungs.
[2019-04-25 05:44] VITALS: BP 103/72
--- NOTE | 2019-04-25 23:34 | EKG REPORT ---
SEVERITY:- ABNORMAL ECG - INCOMPLETE ANALYSIS DUE TO ARTIFACTS SINUS RHYTHM PROBABLE LEFT ATRIAL ABNORMALITY LEFT VENTRICULAR HYPERTROPHY ST ELEVATION, PROBABLE LATERAL INJURY : Confirmed by: Fernando Delarosa 25-Apr-2019 23:33:40
--- NOTE | 2019-04-25 23:34 | EKG REPORT ---
SEVERITY:- ABNORMAL ECG - SINUS RHYTHM PROBABLE LEFT ATRIAL ABNORMALITY PROBABLE LEFT VENTRICULAR HYPERTROPHY ST ELEVATION, PROBABLE LATERAL INJURY BORDERLINE ST ELEVATION, INFERIOR LEADS : Confirmed by: Fernando Delarosa 25-Apr-2019 23:32:48
== END 2019-04-25 05:44 | disposition home or self-care (01) ==
LOC: ER 01:39
DX: J45.21 Mild intermittent asthma with (acute) exacerbation (principal); Z90.49 Acquired absence of other specified parts of digestive tract
CPT/HCPCS: 93005; 94640 ×2; 99283; 96365; 71045; 93010; J3475; J7620

== ENCOUNTER 2019-04-25 21:33 | Emergency (ER) | payer MEDICAID ==
--- NOTE | 2019-04-25 22:07 | ER Document Report ---
ED Medical Screen (RME) - General Chief Complaint: Cough Stated Complaint: COUGH,TROUBLE BREATHING Time Seen by Provider: 04/25/19 22:06 Primary Care Provider: GIANCARLO CHANCE MD [Primary Care Provider] - Follow up as needed Mode of Arrival: Ambulatory Information source: Patient Notes: 33-year-old male presented to ED for complaint of shortness of breath and fe eling like he still has a bad cough. He is taking his inhalers properly now. He has a small insect bite on his right arm and states that he thinks he needs a Doppler that to see if it is infected because it was a mosquito bite. He states that he is in his insect bite but he still having trouble breathing and is coughed on the way over here. Patient has a upper respiratory infection he is not wheezing he is not coughing at this time he has an insect bite that he has been picking at and his arm. I have greeted and performed a rapid initial assessment of this patient. A comprehensive ED assessment and evaluation of the patient, analysis of test results and completion of medical decision making process will be conducted by an additional ED providers. TRAVEL OUTSIDE OF THE [place] IN LAST 30 DAYS: No COUNTRY TRAVELED TO/FROM: [facility] - Related Data Allergies/Adverse Reactions: No Known Allergies Allergy (Verified 04/23/19 13:50) Past Medical History - Social History Family history: Reviewed & Not Pertinent Pulmonary Medical History: Reports: Hx Asthma - not on home O2, Hx Bronchitis Endocrine Medical History: Denies: Hx Diabetes Mellitus Type 1, Hx Diabetes Mellitus Type 2 Renal/ Medical History: Denies: Hx Peritoneal Dialysis GI Medical History: Reports: Hx Irritable Bowel - constipation Musculoskeltal Medical History: Reports Hx Arthritis, Reports Hx Musculoskeletal Trauma Psychiatric Medical History: Reports: Hx Anxiety, Hx Bipolar Disorder, Hx Depression, Hx Personality Disorder, Hx Schizoaffective Disorder, Hx Schizophrenia Traumatic Medical History: Reports: Hx Fractures - Finger fracture Past Surgical History: Reports: Hx Abdominal Surgery, Hx Appendectomy, Hx Cholecystectomy, Hx Orthopedic Surgery - fractured finger - Immunizations Immunizations up to date: Yes Hx Diphtheria, Pertussis, Tetanus Vaccination: Yes - 2012 Physical Exam - Vital signs Vitals: Temp Pulse Resp BP Pulse Ox 98.1 F 87 18 132/70 H 95 04/25/19 21:39 04/25/19 21:39 04/25/19 21:39 04/25/19 21:39 04/25/19 21:39 Course - Vital Signs Vital signs: Temp Pulse Resp BP Pulse Ox 98.1 F 87 18 132/70 H 95 04/25/19 21:39 04/25/19 21:39 04/25/19 21:39 04/25/19 21:39 04/25/19 21:39 Doctor's Discharge - Discharge Referrals: GIANCARLO CHANCE MD [Primary Care Provider] - Follow up as needed
[2019-04-25] MEDS ORDERED: IPRATROPIUM/ALBUTEROL 0.5-2.5 MG/3 ML AMPUL NEB ONE (22:33)
--- NOTE | 2019-04-25 22:51 | ER Document Report ---
HPI - HPI Patient complains to provider of: cough Time Seen by Provider: 04/25/19 22:06 Pain Level: 2 Context: 33-year-old male with schizophrenia and asthma presents the emergency department with chief complaint of cough. Patient recently started on Symbicort by his primary doctor and he said he is going to take his first dose tomorrow morning. Patient states that the cough has been persistent all day. Patient denies any wheezing or significant shortness of breath, denies any chest pain, denies any fever or recent illness, denies rhinorrhea denies earache or sore throat. - RESPIRATORY Respiratory: REPORTS: Coughing - REPRODUCTIVE Reproductive: DENIES: : Past Medical History - General Information source: Patient - Social History Smoking Status: Never Smoker Family History: Reviewed & Not Pertinent Patient has suicidal ideation: No Patient has homicidal ideation: No Pulmonary Medical History: Reports: Hx Asthma - not on home O2, Hx Bronchitis Endocrine Medical History: Denies: Hx Diabetes Mellitus Type 1, Hx Diabetes Mellitus Type 2 Renal/ Medical History: Denies: Hx Peritoneal Dialysis GI Medical History: Reports: Hx Irritable Bowel - constipation Musculoskeletal Medical History: Reports Hx Arthritis, Reports Hx Musculoskeletal Trauma Psychiatric Medical History: Reports: Hx Anxiety, Hx Bipolar Disorder, Hx Depression, Hx Personality Disorder, Hx Schizoaffective Disorder, Hx Schizophrenia Traumatic Medical History: Reports: Hx Fractures - Finger fracture Past Surgical History: Reports: Hx Abdominal Surgery, Hx Appendectomy, Hx Cholecystectomy, Hx Orthopedic Surgery - fractured finger - Immunizations Immunizations up to date: Yes Hx Diphtheria, Pertussis, Tetanus Vaccination: Yes - 2012 Hx Pneumococcal Vaccination: 08/23/00 Vertical Provider Document - CONSTITUTIONAL Notes: PHYSICAL EXAMINATION: Reviewed vital signs and charting by RN GENERAL: Alert, interacts well. No acute distress. HEAD: Normocephalic, atraumatic. EYES: Pupils equal and round. Extraocular movements intact. ENT: Oral mucosa moist, tongue midline. NECK: Full range of motion. Trachea midline. LUNGS: Bilateral wheezing in the lower lobes, no respiratory distress. HEART: Regular rate and rhythm. No murmur ABDOMEN: soft, non-tender. No distention. Bowel sounds present EXTREMITIES: Moves all 4 extremities spontaneously. No edema, No cyanosis. PSYCH: Normal affect, normal mood. SKIN: Warm, dry, normal turgor. No rashes or lesions noted. - INFECTION CONTROL TRAVEL OUTSIDE OF THE [place] IN LAST 30 DAYS: No COUNTRY TRAVELED TO/FROM: [facility] Course - Re-evaluation Re-evalutation: 04/25/19 22:49 Overall well-appearing, chest x-ray obtained in triage, patient does have bilateral wheezes so I will give him a breathing treatment. Pending chest x-ray read he will be stable for discharge. 04/25/19 23:41 No acute process seen in chest x-ray, no focal consolidation or infiltrate. At this time patient received a DuoNeb and feels better. He is stable for discharge. - Vital Signs Vital signs: Temp Pulse Resp BP Pulse Ox 98.1 F 87 18 132/70 H 95 04/25/19 21:39 04/25/19 21:39 04/25/19 21:39 04/25/19 21:39 04/25/19 21:39 Discharge - Discharge Clinical Impression: Cough, Wheezing Condition: Good Disposition: HOME, SELF-CARE Additional Instructions: You were seen for a cough. Your symptoms improved with treatment here in the emergency department. However, it is very important that you return to the emergency department immediately if you began to have worsening difficulty breathing that does not respond to your normal home nebulizers. You are also being sent home on a five-day course of steroids that you should start taking tomorrow. Please also follow closely with your primary care physician. you should also return to emergency department if you develop fever greater than 101, persistent cough, persistent vomiting, pass out, or any other symptoms that are concerning to you. Referrals: GIANCARLO CHANCE MD [Primary Care Provider] - Follow up as needed
--- NOTE | 2019-04-25 23:02 | RADIOLOGY REPORT (SQ) ---
Chest 2 view on 04/25/2019 at 10:31 PM CLINICAL INDICATION: Cough COMPARISON: 04/25/2019 at 2:56 AM FINDINGS: The lungs are clear. Cardiac, hilar and mediastinal contours are within normal limits. Pulmonary vascularity is within normal limits. No bony abnormality is noted. IMPRESSION: No active disease.
[2019-04-26 00:13] VITALS: BP 121/82
== END 2019-04-26 00:13 | disposition home or self-care (01) ==
LOC: ER 21:33
DX: R05 Cough (principal); R06.2 Wheezing; Z90.49 Acquired absence of other specified parts of digestive tract
CPT/HCPCS: 94640; 99283; 71046; J7620

== ENCOUNTER 2019-04-26 01:18 | Emergency (ER) | payer MEDICAID ==
[2019-04-26] MEDS ORDERED: METHYLPREDNISOLONE INJ 125 MG/2 ML SDV IV ONE (01:35)
[2019-04-26] MEDS ORDERED: IPRATROPIUM/ALBUTEROL 0.5-2.5 MG/3 ML AMPUL NEB ONE (01:35)
--- NOTE | 2019-04-26 01:36 | ER Document Report ---
ED Respiratory Problem - General Chief Complaint: Breathing Difficulty Stated Complaint: DIFFICULTY BREATHING Time Seen by Provider: 04/26/19 01:31 Primary Care Provider: GIANCARLO CHANCE MD [Primary Care Provider] - Follow up as needed Mode of Arrival: Ambulatory Information source: Patient Notes: HISTORY OF PRESENT ILLNESS: Patient is a 33-year-old male with a past medical history of uncontrolled asthma who presents with asthma exacerbation and shortness of breath with cough. Location: Chest Onset: Sudden "days ago" Alleviation: None Provocation: Often Quality: Tightness Radiation: None Severity: Severe Timing: Constant History of CAD: None Associated symptoms: Denies fevers or chills REVIEW OF SYSTEMS: CONSTITUTIONAL : Denies fever or chills, no sweats. Denies recent illness. EENT: Denies eye, ear, throat, or mouth pain or symptoms. Denies nasal or sinus congestion. CARDIOVASCULAR: Positive for chest pain. Denies swelling of the legs. RESPIRATORY: Positive for cough and congestion, positive for shortness of breath and difficulty breathing, positive for wheezing. GASTROINTESTINAL: Denies abdominal pain. Denies nausea, vomiting, or diarrhea. Denies constipation. GENITOURINARY: Denies difficulty urinating, painful urination, burning, frequency, or blood in urine. MUSCULOSKELETAL: Denies neck or back pain or joint pain or swelling. SKIN: Denies rash or skin lesions. HEMATOLOGIC : Denies easy bruising or bleeding. LYMPHATIC: Denies swollen, enlarged glands. NEUROLOGICAL: Denies altered mental status or loss of consciousness. Denies headache. Denies weakness or paralysis or loss of use of either side. Denies problems with gait or speech. Denies sensory or motor loss. PSYCHIATRIC: Denies anxiety or stress or depression. All other systems reviewed and negative. PHYSICAL EXAMINATION: GENERAL: Anxious and upset-appearing, well-nourished and in mild acute distress. HEAD: Atraumatic, normocephalic. No scalp deformity, depression, or crepitance. EYES: Pupils are 3 mm and equal/round/reactive to light, extraocular movements intact, sclera anicteric, conjunctiva are normal. ENT: Nares patent bilaterally, oropharynx. Moist mucous membranes. No tonsil hypertrophy. NECK: Normal range of motion, supple without lymphadenopathy. LUNGS: Breath sounds diminished bilaterally with no wheezing, rales, or rhonchi]. HEART: Regular rate and rhythm without murmurs, rubs, or gallops. 2+ peripheral pulses. Normal capillary refill. ABDOMEN: Soft, nontender, nondistended. Normoactive bowel sounds. No guarding, no rebound. No masses appreciated. BACK: Normal contour, no midline tenderness. Rectal exam deferred. GENITAL/PELVIC: Deferred. EXTREMITIES: Normal range of motion, no pitting or edema. No cyanosis. NEUROLOGICAL: No focal neurological deficits. Moves all extremities spontaneously and on command. PSYCH: Normal mood, normal affect. No suicidal thoughts/ideations. No homicidal thoughts/ideations. No hallucinations. SKIN: Warm, dry, normal turgor, no rashes or lesions noted. ASSESSMENT AND PLAN: This patient is a 33-year-old male who presents with likely exacerbation versus pneumonia versus bronchitis. 1. Will obtain labs, cardiac enzymes, chest x-ray, arterial blood gas, and urinalysis. 2. Will give IV Solu-Medrol with DuoNeb treatments and reassess. 3. Will consider BiPAP as needed. TRAVEL OUTSIDE OF THE [place] IN LAST 30 DAYS: No COUNTRY TRAVELED TO/FROM: [facility] Patient complains to provider of: Asthma, Cough, Short of breath Onset: Just prior to arrival Duration: Continuous, Worse/persistent Quality of pain: No pain Severity: Severe Pain Level: 5 Context: Hx asthma Short of Breath: Severe Cough: Nonproductive Sputum amount: None At home treatment: Bronchodilators Associated symptoms: Chest pain/discomfort, Cough, Short of breath Similar symptoms previously: Yes Recently seen / treated by doctor: Yes - Related Data Allergies/Adverse Reactions: No Known Allergies Allergy (Verified 04/23/19 13:50) Past Medical History - General Information source: Patient - Social History Smoking Status: Current Some Day Smoker Chew tobacco use (# tins/day): No Frequency of alcohol use: None Drug Abuse: None Lives with: Alone, Homeless Family History: Reviewed & Not Pertinent Patient has suicidal ideation: No Patient has homicidal ideation: No - Past Medical History Cardiac Medical History: Reports: None Pulmonary Medical History: Reports: Hx Asthma - not on home O2, Hx Bronchitis EENT Medical History: Reports: None Neurological Medical History: Reports: None Endocrine Medical History: Reports: None. Denies: Hx Diabetes Mellitus Type 1, Hx Diabetes Mellitus Type 2 Renal/ Medical History: Reports: None. Denies: Hx Peritoneal Dialysis Malignancy Medical History: Reports None GI Medical History: Reports: None, Hx Irritable Bowel - constipation Musculoskeletal Medical History: Reports Hx Arthritis, Reports Hx Musculoskeletal Trauma Skin Medical History: Reports None Psychiatric Medical History: Reports: Hx Anxiety, Hx Bipolar Disorder, Hx Depression, Hx Personality Disorder, Hx Schizoaffective Disorder, Hx Schizophrenia Traumatic Medical History: Reports: Hx Fractures - Finger fracture Infectious Medical History: Reports: None Past Surgical History: Reports: Hx Abdominal Surgery, Hx Appendectomy, Hx Cholecystectomy, Hx Orthopedic Surgery - fractured finger - Immunizations Immunizations up to date: Yes Hx Diphtheria, Pertussis, Tetanus Vaccination: Yes - 2012 Hx Pneumococcal Vaccination: 08/23/00 Review of Systems - Review of Systems Constitutional: No symptoms reported EENT: No symptoms reported Cardiovascular: No symptoms reported Respiratory: See HPI, Cough, Short of breath, Wheezing Gastrointestinal: No symptoms reported Genitourinary: No symptoms reported Male Genitourinary: No symptoms reported Musculoskeletal: No symptoms reported Skin: No symptoms reported Hematologic/Lymphatic: No symptoms reported Neurological/Psychological: No symptoms reported -: Yes All other systems reviewed and negative Physical Exam - Vital signs Vitals: Pulse Ox 70 L 04/26/19 01:20 Interpretation: Normal - General General appearance: Appears well, Alert - HEENT Head: Normocephalic, Atraumatic Eyes: Normal Pupils: PERRL - Respiratory Respiratory status: No respiratory distress Chest status: Nontender Breath sounds: Normal Chest palpation: Normal - Cardiovascular Rhythm: Regular Heart sounds: Normal auscultation Murmur: No - Abdominal Inspection: Normal Distension: No distension Bowel sounds: Normal Tenderness: Nontender Organomegaly: No organomegaly - Back Back: Normal, Nontender - Extremities General upper extremity: Normal inspection, Nontender, Normal color, Normal ROM, Normal temperature General lower extremity: Normal inspection, Nontender, Normal color, Normal ROM, Normal temperature, Normal weight bearing. No: Esdras's sign - Neurological Neuro grossly intact: Yes Cognition: Normal Orientation: AAOx4 Jasmin Coma Scale Eye Opening: Spontaneous Jasmin Coma Scale Verbal: Oriented Jasmin Coma Scale Motor: Obeys Commands Jasmin Coma Scale Total: 15 Speech: Normal Motor strength normal: LUE, RUE, LLE, RLE Sensory: Normal - Psychological Associated symptoms: Normal affect, Normal mood - Skin Skin Temperature: Warm Skin Moisture: Dry Skin Color: Normal Course - Re-evaluation Re-evalutation: 04/26/19 05:47 Patient is resting comfortably off BiPAP and is maintaining his oxygen saturations in the normal range. He continues to show improvement, lung sounds are clear. Will discharge the patient home with strict return precautions and follow-up with primary care. All results were explained to and discussed with the patient, and all questions addressed and answered for the patient. The patient voices both understanding and agreeing with the plan. - Vital Signs Vital signs: Temp Pulse Resp BP Pulse Ox 15 109/59 L 96 04/26/19 05:01 04/26/19 05:01 04/26/19 05:01 - Laboratory Result Diagrams: 04/26/19 01:25 04/26/19 01:25 Laboratory results interpreted by me: 04/26/19 04/26/19 01:25 01:25 WBC 12.0 H MCH 26.6 L RDW 14.4 H Lymph % (Auto) 47.5 H Eos % (Auto) 12.9 H Absolute Lymphs (auto) 5.7 H Absolute Eos (auto) 1.5 H Seg Neutrophils % 29.3 L Creatinine 1.27 H Glucose 160 H - Diagnostic Test Radiology reviewed: Image reviewed, Reports reviewed - EKG Interpretation by Me EKG shows normal: Sinus rhythm Rate: Normal Rhythm: NSR [place]/QRS: No: Right axis deviation, Left axis deviation, RBBB, LBBB, IVCD, LAHB/ LAFB, LPHB/LPFB, Bifasicular block Voltage: No: Increased voltage, Consistant with LVH, Decreased voltage, Throughout, Limb leads P Waves: No: MAXIMO, LAE, Absent, AV Dissociation, Other Heart block present: No: 1st Degree, Mobitz 1, Mobitz 2, CHB (3rd degree block) When compared to previous EKG there are: No significant change Discharge - Discharge Clinical Impression: Asthma exacerbation Qualifiers: Asthma severity: moderate Asthma persistence: unspecified Qualified Code(s): J45.901 - Unspecified asthma with (acute) exacerbation Condition: Good Disposition: HOME, SELF-CARE Instructions: Asthma ([facility]) Additional Instructions: You have been evaluated in the Emergency Department for having an asthma exacerbation. While here, you had blood work and an x-ray that were normal. You also were given medications and it is now safe to be discharged home. Please follow-up with your primary physician as instructed in 1 week to be rechecked. Return to the Emergency Department if you experience worsening breathing, chest pain, or any other concerning symptoms. Prescriptions: Albuterol Sulfate [Albuterol Sulfate Hfa] 8.5 gm IH Q4HP PRN #1 [id number] PRN Reason: For Wheezing Methylprednisolone [Medrol Dosepack (4 mg/Tab) 21 Tab/Dosepak] 4 mg PO ASDIR PRN #21 tab.[id number] PRN Reason: Azithromycin [Zithromax 250 mg Tablet] 250 mg PO ASDIR PRN #6 tablet PRN Reason: Referrals: GIANCARLO CHANCE MD [Primary Care Provider] - Follow up as needed Print Language: Kosovan
[2019-04-26 01:43] LABS: ABSOLUTE BASOPHILS # (AUTO) 0.1 10^3/uL (0.0-0.2); ABSOLUTE EOSINOPHILS # (AUTO) 1.5 10^3/uL (0.0-0.6); ABSOLUTE LYMPHOCYTES (AUTO) 5.7 10^3/uL (0.5-4.7); ABSOLUTE MONOCYTES (AUTO) 1.1 10^3/uL (0.1-1.4); ABSOLUTE NEUT (AUTO) 3.5 10^3/uL (1.7-8.2); EOSINOPHILS % (AUTO) 12.9 % (0-6); HEMATOCRIT 43.5 % (37.9-51.0); HEMOGLOBIN 13.9 g/dL (13.5-17.0); LYMPHOCYTES % (AUTO) 47.5 % (13-45); MEAN CORPUSCULAR HEMOGLOBIN 26.6 pg (27.0-33.4); MEAN CORPUSCULAR VOLUME 83 fl (80-97); MONOCYTES % (AUTO) 9.3 % (3-13); PLATELET COUNT 296 10^3/uL (150-450); RED BLOOD COUNT 5.23 10^6/uL (4.35-5.55); RED CELL DISTRIBUTION WIDTH 14.4 % (11.5-14.0); SEGMENTED NEUTROPHILS % (AUTO) 29.3 % (42-78); TOTAL CELLS COUNTED % (AUTO) 100 %
[2019-04-26 02:00] LABS: ALBUMIN 4.3 g/dL (3.5-5.0); ALKALINE PHOSPHATASE 62 U/L (38-126); ANION GAP 16 (5-19); ASPARTATE AMINO TRANSFERASE 42 U/L (17-59); BILIRUBIN,DIRECT 0.3 mg/dL (0.0-0.4); BILIRUBIN,TOTAL 1.1 mg/dL (0.2-1.3); BLOOD UREA NITROGEN 20 mg/dL (7-20); CALCIUM 9.7 mg/dL (8.4-10.2); CARBON DIOXIDE 22 mmol/L (22-30); CHLORIDE 105 mmol/L (98-107); GLUCOSE 160 mg/dL (75-110); POTASSIUM 4.3 mmol/L (3.6-5.0); TOTAL PROTEIN 6.6 g/dL (6.3-8.2)
--- NOTE | 2019-04-26 02:00 | RADIOLOGY REPORT (SQ) ---
EXAM DESCRIPTION: XR CHEST 1 VIEW COMPLETED DATE/TME: 04/26/2019 01:25 CLINICAL HISTORY: 33 years, Male, cant breath Comparison: None FINDINGS: No focal lung consolidation. No pleural effusion. No pneumothorax. Cardiac and mediastinal silhouette is unremarkable. No acute osseous abnormality. Soft tissues are unremarkable. IMPRESSION: No acute findings. No focal lung consolidation.
[2019-04-26 02:02] LABS: ALCOHOL < 10 mg/dL (NONE DETECTED)
[2019-04-26 02:19] LABS: ARTERIAL BLOOD BASE EXCESS -2.2 mmol/L; ARTERIAL BLOOD FIO2 40%; ARTERIAL BLOOD H2CO3 1.21 mmol/L (1.05-1.35); ARTERIAL BLOOD HCO3 22.8 mmol/L (20-24); ARTERIAL BLOOD PCO2 40.3 mmHg (35-45); ARTERIAL BLOOD PH 7.37 (7.35-7.45); ARTERIAL BLOOD PO2 83.4 mmHg (80-100); ARTERIAL BLOOD TOTAL CO2 24.1 mmol/L (23-27)
[2019-04-26 04:30] LABS: APPEARANCE,URINE CLEAR; BILIRUBIN,URINE NEGATIVE (NEGATIVE); COLOR,URINE YELLOW; GLUCOSE, URINE NEGATIVE (NEGATIVE); KETONES,URINE NEGATIVE (NEGATIVE); LEUKOCYTE ESTERASE,URINE NEGATIVE (NEGATIVE); NITRITE,URINE NEGATIVE (NEGATIVE); PROTEIN,URINE NEGATIVE (NEGATIVE); URINE SPECIFIC GRAVITY 1.023; UROBILINOGEN,URINE NEGATIVE mg/dL (<2.0)
[2019-04-26 04:55] LABS: URINE AMPHETAMINES SCREEN NEGATIVE; URINE BARBITURATES SCREEN NEGATIVE; URINE BENZODIAZEPINES SCREEN NEGATIVE; URINE COCAINE SCREEN NEGATIVE; URINE MARIJUANA (THC) SCREEN NEGATIVE; URINE METHADONE SCREEN NEGATIVE; URINE PHENCYCLIDINE SCREEN NEGATIVE
[2019-04-26 06:26] VITALS: BP 131/69
--- NOTE | 2019-04-27 14:28 | EKG REPORT ---
SEVERITY:- ABNORMAL ECG - SINUS RHYTHM BORDERLINE ST ELEVATION, INFERIOR LEADS VS EARLY REPOL CHANGES : Confirmed by: Fernando Delarosa 27-Apr-2019 14:27:08
== END 2019-04-26 06:26 | disposition home or self-care (01) ==
LOC: ER 01:18
DX: J45.901 Unspecified asthma with (acute) exacerbation (principal); R06.02 Shortness of breath; R05 Cough; R07.89 Other chest pain; F17.200 Nicotine dependence, unspecified, uncomplicated; Z59.0 Homelessness
CPT/HCPCS: 93005; 94640; 99284; 96374; 36415; 80307 ×2; 82803; 85025; 80053; 81001; 84484; 71045; 93010; 36600; 94660; J2930; J7620

== ENCOUNTER 2019-04-27 06:09 | Inpatient (IN) | payer MEDICAID ==
[2019-04-27] MEDS ORDERED: IPRATROPIUM/ALBUTEROL 0.5-2.5 MG/3 ML AMPUL NEB ONE (06:10)
[2019-04-27] MEDS ORDERED: METHYLPREDNISOLONE INJ 125 MG/2 ML SDV IV ONE (06:10)
[2019-04-27] MEDS ORDERED: METHYLPREDNISOLONE INJ 125 MG/2 ML SDV ONE (06:16)
[2019-04-27] MEDS: MAGNESIUM SULFATE/D5W 1 GM/100 ML RTUPB IV SCH ×2 (06:29→06:43)
--- NOTE | 2019-04-27 06:40 | RADIOLOGY REPORT (SQ) ---
EXAM DESCRIPTION: XR CHEST 1 VIEW COMPLETED DATE/TME: 04/27/2019 00:00 CLINICAL HISTORY: 33 years, Male, SOB COMPARISON: 04/26/2019 chest NUMBER OF VIEWS: 1 TECHNIQUE: Portable chest LIMITATIONS: None. FINDINGS: The heart size is normal. The lungs are clear. No pneumothorax IMPRESSION: Negative chest copyright 2010 [employer]- All Rights Reserved
[2019-04-27 06:42] LABS: VENOUS BLOOD BASE EXCESS -7.6 mmol/L; VENOUS BLOOD HCO3 19.6 mmol/L (20-32); VENOUS BLOOD PCO2 45.8 mmHg (35-63); VENOUS BLOOD PH 7.25 (7.30-7.42)
[2019-04-27 06:48] LABS: INTERNATIONAL RATION (INR) 1.04; PROTHROMBIN TIME 13.7 SEC (11.4-15.4)
[2019-04-27] MEDS ORDERED: DOXYCYCLINE HYCLATE INJ 100 MG VIAL IV ONE (06:51)
[2019-04-27 06:59] LABS: ABSOLUTE LYMPHOCYTES (AUTO) 1.8 10^3/uL (0.5-4.7); ABSOLUTE MONOCYTES (AUTO) 0.3 10^3/uL (0.1-1.4); ABSOLUTE NEUT (AUTO) 4.2 10^3/uL (1.7-8.2); BASOPHILS % (AUTO) 0.3 % (0-2); EOSINOPHILS % (AUTO) 0.1 % (0-6); HEMATOCRIT 41.7 % (37.9-51.0); HEMOGLOBIN 13.7 g/dL (13.5-17.0); LYMPHOCYTES % (AUTO) 28.3 % (13-45); MEAN CORPUSCULAR HEMOGLOBIN 26.6 pg (27.0-33.4); MEAN CORPUSCULAR HGB CONC 32.8 g/dL (32.0-36.0); MEAN CORPUSCULAR VOLUME 81 fl (80-97); MONOCYTES % (AUTO) 4.5 % (3-13); PLATELET COUNT 246 10^3/uL (150-450); RED BLOOD COUNT 5.13 10^6/uL (4.35-5.55); RED CELL DISTRIBUTION WIDTH 14.1 % (11.5-14.0); SEGMENTED NEUTROPHILS % (AUTO) 66.8 % (42-78); TOTAL CELLS COUNTED % (AUTO) 100 %; WHITE BLOOD COUNT 6.3 10^3/uL (4.0-10.5)
[2019-04-27 07:01] LABS: ALBUMIN 4.3 g/dL (3.5-5.0); ALKALINE PHOSPHATASE 68 U/L (38-126); ANION GAP 14 (5-19); ASPARTATE AMINO TRANSFERASE 39 U/L (17-59); BILIRUBIN,DIRECT 0.1 mg/dL (0.0-0.4); BILIRUBIN,TOTAL 1.3 mg/dL (0.2-1.3); BLOOD UREA NITROGEN 16 mg/dL (7-20); CALCIUM 9.9 mg/dL (8.4-10.2); CARBON DIOXIDE 23 mmol/L (22-30); CHLORIDE 103 mmol/L (98-107); GLUCOSE 125 mg/dL (75-110); POTASSIUM 4.3 mmol/L (3.6-5.0); TOTAL PROTEIN 6.8 g/dL (6.3-8.2)
[2019-04-27] MEDS ORDERED: NORMAL SALINE 1000 ML 1,000 ML IV PRN (07:06)
--- NOTE | 2019-04-27 08:53 | ER Document Report ---
Entered by MALU VERGARA SCRIBE 04/27/19 0706 Acting as scribe for:VENANCIO MATIAS DO ED Respiratory Problem - General Chief Complaint: Shortness Of Breath Stated Complaint: DIFFICULTY BREATHING Time Seen by Provider: 04/27/19 06:09 Primary Care Provider: GIANCARLO CHANCE MD [Primary Care Provider] - Follow up as needed Mode of Arrival: Ambulatory Information source: Patient Notes: Patient is a 33 year old male with asthma well known to this emergency department today that presents to the emergency department today with complaints of shortness of breath. Patient states that he has a "red inhaler and a blue inhaler and his red inhaler is for every 12 hours and his blue one he uses in between the red one". Patient states he has requested oxygen from his PCP who told him that he did not need it. TRAVEL OUTSIDE OF THE [place] IN LAST 30 DAYS: No COUNTRY TRAVELED TO/FROM: [facility] - Related Data Allergies/Adverse Reactions: No Known Allergies Allergy (Verified 04/23/19 13:50) Past Medical History - General Information source: Patient - Social History Smoking Status: Never Smoker Cigarette use (# per day): No Chew tobacco use (# tins/day): No Smoking Education Provided: No Frequency of alcohol use: Rare Drug Abuse: None Lives with: Homeless Family History: Reviewed & Not Pertinent Patient has suicidal ideation: No Patient has homicidal ideation: No Pulmonary Medical History: Reports: Hx Asthma - not on home O2, Hx Bronchitis Endocrine Medical History: Denies: Hx Diabetes Mellitus Type 1, Hx Diabetes Mellitus Type 2 Renal/ Medical History: Denies: Hx Peritoneal Dialysis GI Medical History: Reports: Hx Irritable Bowel - constipation Musculoskeletal Medical History: Reports Hx Arthritis, Reports Hx Musculoskeletal Trauma Psychiatric Medical History: Reports: Hx Anxiety, Hx Bipolar Disorder, Hx Depression, Hx Personality Disorder, Hx Schizoaffective Disorder, Hx Schizophrenia Traumatic Medical History: Reports: Hx Fractures - Finger fracture Past Surgical History: Reports: Hx Abdominal Surgery, Hx Appendectomy, Hx Cholecystectomy, Hx Orthopedic Surgery - fractured finger - Immunizations Immunizations up to date: Yes Hx Diphtheria, Pertussis, Tetanus Vaccination: Yes - 2012 Hx Pneumococcal Vaccination: 08/23/00 Review of Systems - Review of Systems Constitutional: No symptoms reported EENT: No symptoms reported Cardiovascular: No symptoms reported Respiratory: See HPI, Cough, Short of breath, Wheezing Gastrointestinal: No symptoms reported Genitourinary: No symptoms reported Male Genitourinary: No symptoms reported Musculoskeletal: No symptoms reported Skin: No symptoms reported Hematologic/Lymphatic: No symptoms reported Neurological/Psychological: No symptoms reported -: Yes All other systems reviewed and negative Physical Exam - Vital signs Vitals: Pulse Ox 80 L 04/27/19 06:08 Interpretation: Tachycardic, Hypoxic - General General appearance: Alert In distress: Moderate - HEENT Head: Normocephalic, Atraumatic Eyes: Normal Pupils: PERRL - Respiratory Respiratory status: Respiratory distress Chest status: Accessory muscle use Breath sounds: Wheezing - Cardiovascular Rhythm: Regular - Abdominal Inspection: Normal Bowel sounds: Normal Tenderness: Nontender - Back Back: Normal - Neurological Neuro grossly intact: Yes Cognition: Normal Orientation: AAOx4 Jasmin Coma Scale Eye Opening: Spontaneous Gleason Coma Scale Verbal: Oriented Gleason Coma Scale Motor: Obeys Commands Jasmin Coma Scale Total: 15 Speech: Normal Motor strength normal: LUE, RUE, LLE, RLE Sensory: Normal - Psychological Associated symptoms: Normal mood - Skin Skin Temperature: Warm Skin Moisture: Diaphoretic Course - Re-evaluation Re-evalutation: 04/27/19 08:51 Patient is a 33-year-old male with a history of asthma, schizophrenia, and homelessness. He presents with respiratory distress and wheezing. He has been seen multiple times recently. Patient presents with oxygen saturation in the 80s. Given nebulizer treatments, Solu-Medrol, and magnesium. Patient still has a oxygen requirement of 2 L or he becomes hypoxic down to the mid 80s. Discussed with Dr. Chance. Patient is willing to stay in the hospital today due to asthma exacerbation with hypoxia. No acute findings on chest x-ray. Stable at the time of admission to telemetry. - Vital Signs Vital signs: Temp Pulse Resp BP Pulse Ox 113 H 16 127/71 H 100 04/27/19 06:14 04/27/19 07:31 04/27/19 07:31 04/27/19 07:31 - Laboratory Result Diagrams: 04/27/19 06:28 04/27/19 06:28 Laboratory results interpreted by me: 04/27/19 04/27/19 04/27/19 06:28 06:28 06:28 MCH 26.6 L RDW 14.1 H VBG pH VBG HCO3 Glucose 125 H Lactic Acid 4.9 H 04/27/19 06:28 MCH RDW VBG pH 7.25 L VBG HCO3 19.6 L Glucose Lactic Acid Critical Care Note - Critical Care Note Total time excluding time spent on procedures (mins): 35 - Evaluation and management of respiratory distress, hypoxia, multiple re-evaluations, coordination of admission, counseling patient Discharge - Discharge Clinical Impression: Hypoxia Asthma exacerbation Qualifiers: Asthma severity: mild Asthma persistence: unspecified Qualified Code(s): J45.901 - Unspecified asthma with (acute) exacerbation Condition: Stable Disposition: ADMITTED INPATIENT Admitting Provider: [facility] Admitted: Telemetry Referrals: GIANCARLO CHANCE MD [Primary Care Provider] - Follow up as needed I personally performed the services described in the documentation, reviewed and edited the documentation which was dictated to the scribe in my presence, and it accurately records my words and actions.
[2019-04-27 09:26] LABS: APPEARANCE,URINE CLEAR; BILIRUBIN,URINE NEGATIVE (NEGATIVE); COLOR,URINE STRAW; GLUCOSE, URINE NEGATIVE (NEGATIVE); KETONES,URINE NEGATIVE (NEGATIVE); LEUKOCYTE ESTERASE,URINE NEGATIVE (NEGATIVE); NITRITE,URINE NEGATIVE (NEGATIVE); PROTEIN,URINE NEGATIVE (NEGATIVE); URINE SPECIFIC GRAVITY 1.008; UROBILINOGEN,URINE NEGATIVE mg/dL (<2.0)
[2019-04-27 11:59] LABS: PHOSPHORUS 5.8 mg/dL (2.5-4.5)
[2019-04-27 12:12] LABS: CREATINE KINASE MB 2.21 ng/mL (<4.55); NT PRO BNP 43 pg/mL (<125)
[2019-04-27 12:15] LABS: TROPONIN I < 0.012 ng/mL
[2019-04-27 12:17] LABS: FREE T4 (FREE THYROXINE) 0.76 ng/dL (0.78-2.19)
[2019-04-27 12:31] LABS: THYROID STIMULATING HORMONE 0.39 uIU/mL (0.47-4.68)
[2019-04-27 13:07] LABS: INTERNATIONAL RATION (INR) 1.07; PROTHROMBIN TIME 13.9 SEC (11.4-15.4)
[2019-04-27] MEDS: ENOXAPARIN SODIUM INJ 40 MG/0.4 ML DISP.SYRIN SUBCUT SCH (13:22)
[2019-04-27] MEDS: FLUTICASONE PROPIONATE HFA 110 MCG/PUFF 12 GM MDI IH SCH ×2 (13:23→21:04)
[2019-04-27 13:31] LABS: CREATINE KINASE MB 1.89 ng/mL (<4.55)
[2019-04-27 13:35] LABS: TROPONIN I < 0.012 ng/mL
--- NOTE | 2019-04-27 14:26 | EKG REPORT ---
SEVERITY:- ABNORMAL ECG - SINUS RHYTHM PROBABLE LEFT VENTRICULAR HYPERTROPHY ST ELEVATION, PROBABLE LATERAL INJURY VS EARLY REPOL CHANGES VS HYPERKALEMIA : Confirmed by: Fernando Delarosa 27-Apr-2019 14:25:31
--- NOTE | 2019-04-27 14:26 | EKG REPORT ---
SEVERITY:- ABNORMAL ECG - SINUS RHYTHM PROBABLE LEFT VENTRICULAR HYPERTROPHY ST ELEVATION, PROBABLE LATERAL INJURY VS REPOL CHANGES : Confirmed by: Fernando Delarosa 27-Apr-2019 14:26:02
--- NOTE | 2019-04-27 14:50 | PDOC H&P ---
History of Present Illness Admission Date/PCP: 04/27/19 09:00 GIANCARLO CHANCE MD History of Present Illness: PATRICK BARAJAS is a 33 year old male, he has a history of underlying m oderate to severe persistent asthma, schizophrenia, homelessness, the biggest challenge for this patient is the homelessness, he virtually have all of his belongings on him, he has had multiple ED visits for evaluation of various [place] complaints, he was in the emergency room this time for evaluation of shortness of breath, the ED physician felt patient needed to be admitted because of a low oxygen saturation on pulse oximetry in the emergency room. Because of his homelessness he has very poor body hygiene with very offensive odor emanating from his body. The ED physician said he was treated with bronchodilators and Solu-Medrol in the emergency room with resolution of his symptoms. When I saw him on the floor there was no audible wheeze the oxygen saturation was over 90, he looks very unkept. He refused arterial blood gas drawn Past Medical History Pulmonary Medical History: Reports: Asthma - not on home O2, Bronchitis Musculoskeltal Medical History: Reports: Arthritis Psychiatric Medical History: Reports: Bipolar Disorder, Depression, Personality Disorder, Schizoaffective Disorder Past Surgical History Past Surgical History: Reports: Appendectomy, Cholecystectomy, Orthopedic Surgery - fractured finger Social History Lives with: Homeless Smoking Status: Former Smoker Frequency of Alcohol Use: Social Hx Recreational Drug Use: No Drugs: None Hx Prescription Drug Abuse: No Family History Family History: Reviewed & Not Pertinent Parental Family History Reviewed: Yes Children Family History Reviewed: Yes Sibling(s) Family History Reviewed.: Yes Medication/Allergy Home Medications: Albuterol Sulfate [Albuterol Sulfate Hfa] 2 puff IN Q4HP PRN 04/27/19 Azithromycin [Zithromax 250 mg Tablet] 250 mg PO DAILY 04/27/19 Methylprednisolone [Medrol Dosepack (4 mg/Tab) 21 Tab/Dosepak] 4 mg PO ASDIR PRN 04/27/19 Allergies/Adverse Reactions: No Known Allergies Allergy (Verified 04/23/19 13:50) Review of Systems Constitutional: ABSENT: chills, fever(s), headache(s), weight gain, weight loss Eyes: ABSENT: visual disturbances Ears: ABSENT: hearing changes Cardiovascular: ABSENT: chest pain, dyspnea on exertion, edema, orthropnea, palpitations Respiratory: PRESENT: cough Gastrointestinal: ABSENT: abdominal pain, constipation, diarrhea, hematemesis, hematochezia, nausea, vomiting Genitourinary: ABSENT: dysuria, hematuria Musculoskeletal: ABSENT: joint swelling Integumentary: ABSENT: rash, wounds Neurological: ABSENT: abnormal gait, abnormal speech, confusion, dizziness, focal weakness, syncope Psychiatric: ABSENT: anxiety, depression, homidical ideation, suicidal ideation Endocrine: ABSENT: cold intolerance, heat intolerance, menstrual abnormalities, polydipsia, polyuria Hematologic/Lymphatic: ABSENT: easy bleeding, easy bruising, lymphadenopathy Physical Exam Vital Signs: Temp Pulse Resp BP Pulse Ox 98 F 59 L 21 H 146/73 H 100 04/27/19 11:21 04/27/19 11:21 04/27/19 11:21 04/27/19 11:21 04/27/19 11:21 Intake & Output 04/26/19 04/27/19 04/28/19 06:59 06:59 06:59 Intake Total 200 617 Balance 200 617 Weight 67.132 kg General appearance: PRESENT: no acute distress, well-developed, well-nourished Head exam: PRESENT: atraumatic, normocephalic Eye exam: PRESENT: conjunctiva pink, EOMI, PERRLA Ear exam: PRESENT: normal external ear exam Mouth exam: PRESENT: moist, tongue midline Neck exam: PRESENT: full ROM Respiratory exam: PRESENT: wheezes Cardiovascular exam: PRESENT: RRR, +S1, +S2 Pulses: PRESENT: normal dorsalis pedis pul, +2 pedal pulses bilateral Vascular exam: PRESENT: normal capillary refill GI/Abdominal exam: PRESENT: normal bowel sounds, soft Rectal exam: PRESENT: deferred Neurological exam: PRESENT: alert, awake, oriented to person, oriented to place, oriented to time, oriented to situation, CN II-XII grossly intact Psychiatric exam: PRESENT: appropriate affect, normal mood Skin exam: PRESENT: dry, intact, warm Results Laboratory Results: 04/27/19 06:28 04/27/19 06:28 04/27/19 04/27/19 04/27/19 06:28 06:28 06:28 WBC 6.3 RBC 5.13 Hgb 13.7 Hct 41.7 MCV 81 MCH 26.6 L MCHC 32.8 RDW 14.1 H Plt Count 246 Seg Neutrophils % 66.8 VBG pH VBG pCO2 VBG HCO3 VBG Base Excess Sodium 139.8 Potassium 4.3 Chloride 103 Carbon Dioxide 23 Anion Gap 14 BUN 16 Creatinine 1.02 Est GFR ( Amer) > 60 Glucose 125 H Lactic Acid 4.9 H Calcium 9.9 Phosphorus Magnesium Total Bilirubin 1.3 AST 39 Alkaline Phosphatase 68 Ammonia Total Protein 6.8 Albumin 4.3 Amylase Lipase TSH Free T4 Urine Color Urine Appearance Urine pH Ur Specific [place] Urine Protein Urine Glucose (UA) Urine Ketones Urine Blood Urine Nitrite Ur Leukocyte Esterase Urine WBC (Auto) Urine RBC (Auto) 04/27/19 04/27/19 04/27/19 06:28 06:28 06:28 WBC RBC Hgb Hct MCV MCH MCHC RDW Plt Count Seg Neutrophils % VBG pH 7.25 L VBG pCO2 45.8 VBG HCO3 19.6 L VBG Base Excess -7.6 Sodium Potassium Chloride Carbon Dioxide Anion Gap BUN Creatinine Est GFR ( Amer) Glucose Lactic Acid Calcium Phosphorus 5.8 H Magnesium 1.9 Total Bilirubin AST Alkaline Phosphatase Ammonia Total Protein Albumin Amylase 99 Lipase 59.1 TSH 0.39 L Free T4 0.76 L Urine Color Urine Appearance Urine pH Ur Specific [place] Urine Protein Urine Glucose (UA) Urine Ketones Urine Blood Urine Nitrite Ur Leukocyte Esterase Urine WBC (Auto) Urine RBC (Auto) 04/27/19 04/27/19 09:07 12:49 WBC RBC Hgb Hct MCV MCH MCHC RDW Plt Count Seg Neutrophils % VBG pH VBG pCO2 VBG HCO3 VBG Base Excess Sodium Potassium Chloride Carbon Dioxide Anion Gap BUN Creatinine Est GFR ( Amer) Glucose Lactic Acid Calcium Phosphorus Magnesium Total Bilirubin AST Alkaline Phosphatase Ammonia < 8.7 L Total Protein Albumin Amylase Lipase TSH Free T4 Urine Color STRAW Urine Appearance CLEAR Urine pH 6.0 Ur Specific [place] 1.008 Urine Protein NEGATIVE Urine Glucose (UA) NEGATIVE Urine Ketones NEGATIVE Urine Blood NEGATIVE Urine Nitrite NEGATIVE Ur Leukocyte Esterase NEGATIVE Urine WBC (Auto) 0 Urine RBC (Auto) 1 04/27/19 04/27/19 04/27/19 06:28 06:28 12:49 Creatine Kinase 228 H 177 H CK-MB (CK-2) 2.21 Troponin I < 0.012 NT-Pro-B Natriuret Pep 43 04/27/19 12:49 Creatine Kinase CK-MB (CK-2) 1.89 Troponin I < 0.012 NT-Pro-B Natriuret Pep Impressions: Chest X-Ray 04/27/19 00:00 IMPRESSION: Negative chest copyright 2011 [employer]- All Rights Reserved Assessment & Plan - Diagnosis (1) Severe persistent asthma with (acute) exacerbation Is this a current diagnosis for this admission?: Yes Plan: Patient is admitted, treated with bronchodilators and inhaled steroids (2) Schizophrenia, chronic condition Is this a current diagnosis for this admission?: Yes Plan: This is the biggest challenge for this patient he has schizophrenia and is homeless, he supposedly follow with psychiatry, not sure of his compliance with that
[2019-04-27] MEDS: IPRATROPIUM/ALBUTEROL 0.5-2.5 MG/3 ML AMPUL NEB PRN (15:00)
[2019-04-27 15:27] LABS: APPEARANCE,URINE CLEAR; BILIRUBIN,URINE NEGATIVE (NEGATIVE); COLOR,URINE STRAW; GLUCOSE, URINE NEGATIVE (NEGATIVE); KETONES,URINE NEGATIVE (NEGATIVE); LEUKOCYTE ESTERASE,URINE NEGATIVE (NEGATIVE); NITRITE,URINE NEGATIVE (NEGATIVE); PROTEIN,URINE NEGATIVE (NEGATIVE); URINE SPECIFIC GRAVITY 1.013; UROBILINOGEN,URINE NEGATIVE mg/dL (<2.0)
[2019-04-27 15:42] LABS: URINE AMPHETAMINES SCREEN NEGATIVE; URINE BARBITURATES SCREEN NEGATIVE; URINE BENZODIAZEPINES SCREEN NEGATIVE; URINE COCAINE SCREEN NEGATIVE; URINE MARIJUANA (THC) SCREEN NEGATIVE; URINE METHADONE SCREEN NEGATIVE; URINE PHENCYCLIDINE SCREEN NEGATIVE
[2019-04-27 19:20] LABS: CREATINE KINASE MB 1.79 ng/mL (<4.55)
[2019-04-27 19:26] LABS: TROPONIN I < 0.012 ng/mL
[2019-04-27] MEDS: NORMAL SALINE 1000 ML 1,000 ML IV PRN (21:04)
[2019-04-28] MEDS: IPRATROPIUM/ALBUTEROL 0.5-2.5 MG/3 ML AMPUL NEB PRN (06:15)
[2019-04-28 06:54] LABS: ABSOLUTE LYMPHOCYTES (AUTO) 1.6 10^3/uL (0.5-4.7); ABSOLUTE MONOCYTES (AUTO) 0.3 10^3/uL (0.1-1.4); ABSOLUTE NEUT (AUTO) 3.1 10^3/uL (1.7-8.2); BASOPHILS % (AUTO) 0.7 % (0-2); EOSINOPHILS % (AUTO) 0.4 % (0-6); HEMATOCRIT 38.5 % (37.9-51.0); HEMOGLOBIN 12.5 g/dL (13.5-17.0); MEAN CORPUSCULAR HEMOGLOBIN 26.2 pg (27.0-33.4); MEAN CORPUSCULAR HGB CONC 32.4 g/dL (32.0-36.0); MEAN CORPUSCULAR VOLUME 81 fl (80-97); MONOCYTES % (AUTO) 6.6 % (3-13); PLATELET COUNT 213 10^3/uL (150-450); RED BLOOD COUNT 4.76 10^6/uL (4.35-5.55); RED CELL DISTRIBUTION WIDTH 14.3 % (11.5-14.0); SEGMENTED NEUTROPHILS % (AUTO) 60.3 % (42-78); TOTAL CELLS COUNTED % (AUTO) 100 %; WHITE BLOOD COUNT 5.1 10^3/uL (4.0-10.5)
[2019-04-28 07:09] LABS: ALBUMIN 3.7 g/dL (3.5-5.0); ALKALINE PHOSPHATASE 54 U/L (38-126); ANION GAP 8 (5-19); ASPARTATE AMINO TRANSFERASE 24 U/L (17-59); BILIRUBIN,DIRECT 0.1 mg/dL (0.0-0.4); BILIRUBIN,TOTAL 1.2 mg/dL (0.2-1.3); BLOOD UREA NITROGEN 14 mg/dL (7-20); CALCIUM 9.3 mg/dL (8.4-10.2); CARBON DIOXIDE 26 mmol/L (22-30); CHLORIDE 107 mmol/L (98-107); CHOLESTEROL 204.28 mg/dL (0-200); POTASSIUM 4.1 mmol/L (3.6-5.0); TOTAL PROTEIN 6.1 g/dL (6.3-8.2); TRIGLYCERIDES 102 mg/dL (<150)
[2019-04-28 07:20] LABS: DIRECT LDL 103 mg/dL (<100)
[2019-04-28 07:25] LABS: GLUCOSE 67 mg/dL (75-110)
[2019-04-28] MEDS: FLUTICASONE PROPIONATE HFA 110 MCG/PUFF 12 GM MDI IH SCH ×2 (09:52→21:15)
[2019-04-28] MEDS: ENOXAPARIN SODIUM INJ 40 MG/0.4 ML DISP.SYRIN SUBCUT SCH (09:52)
--- NOTE | 2019-04-28 14:16 | PDOC PROGRESS REPORT ---
Subjective Progress Note for:: 04/28/19 Subjective:: Patient seen by the bedside, the biggest challenge for this patient is the homelessness, he has no place to go to, he has underlying asthma, he has had multiple ED visits in the last couple of months. Discharge planning to be consulted to arrange for assisted living facility for this patient otherwise it would be a recurring problem Reason For Visit: SEVERE PERSISTENT ASTHMA WITH ACUTE EXACERBATION, Physical Exam Vital Signs: Temp Pulse Resp BP Pulse Ox 98.3 F 70 16 135/69 H 98 04/28/19 12:40 04/28/19 12:40 04/28/19 07:46 04/28/19 12:40 04/28/19 12:40 Intake & Output 04/27/19 04/28/19 04/29/19 06:59 06:59 06:59 Intake Total 200 2329 1000 Output Total 1525 Balance 468 528 5861 Weight 67.132 kg 68.8 kg General appearance: PRESENT: no acute distress Eye exam: PRESENT: PERRLA Respiratory exam: PRESENT: rhonchi Cardiovascular exam: PRESENT: +S1, +S2 GI/Abdominal exam: PRESENT: soft Neurological exam: PRESENT: alert, CN II-XII grossly intact Results Laboratory Results: 04/28/19 06:38 04/28/19 06:38 04/27/19 04/28/19 04/28/19 14:40 06:38 06:38 WBC 5.1 RBC 4.76 Hgb 12.5 L Hct 38.5 MCV 81 MCH 26.2 L MCHC 32.4 RDW 14.3 H Plt Count 213 Seg Neutrophils % 60.3 Sodium 141.2 Potassium 4.1 Chloride 107 Carbon Dioxide 26 Anion Gap 8 BUN 14 Creatinine 0.91 Est GFR ( Amer) > 60 Glucose 67 L Calcium 9.3 Total Bilirubin 1.2 AST 24 Alkaline Phosphatase 54 Total Protein 6.1 L Albumin 3.7 Triglycerides 102 Cholesterol 204.28 H LDL Cholesterol Direct 103 H VLDL Cholesterol 20.0 HDL Cholesterol 72 Urine Color STRAW Urine Appearance CLEAR Urine pH 6.0 Ur Specific [place] 1.013 Urine Protein NEGATIVE Urine Glucose (UA) NEGATIVE Urine Ketones NEGATIVE Urine Blood NEGATIVE Urine Nitrite NEGATIVE Ur Leukocyte Esterase NEGATIVE Urine WBC (Auto) 0 Urine RBC (Auto) 1 04/27/19 09:07 Clean Catch Midstream Urine Culture - Final Mixed Urogenital Deya 04/27/19 04/27/19 04/27/19 06:28 06:28 12:49 Creatine Kinase 228 H 177 H CK-MB (CK-2) 2.21 Troponin I < 0.012 NT-Pro-B Natriuret Pep 43 04/27/19 04/27/19 04/27/19 12:49 18:35 18:35 Creatine Kinase 136 CK-MB (CK-2) 1.89 1.79 Troponin I < 0.012 < 0.012 NT-Pro-B Natriuret Pep Impressions: Chest X-Ray 04/27/19 00:00 IMPRESSION: Negative chest copyright 2011 [employer]- All Rights Reserved Assessment & Plan - Diagnosis (1) Severe persistent asthma with (acute) exacerbation Is this a current diagnosis for this admission?: Yes Plan: Continue present line of management (2) Schizophrenia, chronic condition Is this a current diagnosis for this admission?: Yes
[2019-04-28] MEDS ORDERED: ACETAMINOPHEN 325 MG TABLET PO PRN (14:30)
[2019-04-29 04:42] LABS: ABSOLUTE EOSINOPHILS # (AUTO) 0.1 10^3/uL (0.0-0.6); ABSOLUTE LYMPHOCYTES (AUTO) 1.7 10^3/uL (0.5-4.7); ABSOLUTE MONOCYTES (AUTO) 0.3 10^3/uL (0.1-1.4); ABSOLUTE NEUT (AUTO) 1.2 10^3/uL (1.7-8.2); BASOPHILS % (AUTO) 0.9 % (0-2); EOSINOPHILS % (AUTO) 2.6 % (0-6); HEMATOCRIT 36.6 % (37.9-51.0); MEAN CORPUSCULAR HEMOGLOBIN 26.5 pg (27.0-33.4); MEAN CORPUSCULAR HGB CONC 32.6 g/dL (32.0-36.0); MEAN CORPUSCULAR VOLUME 81 fl (80-97); MONOCYTES % (AUTO) 8.5 % (3-13); PLATELET COUNT 173 10^3/uL (150-450); RED BLOOD COUNT 4.52 10^6/uL (4.35-5.55); TOTAL CELLS COUNTED % (AUTO) 100 %; WHITE BLOOD COUNT 3.4 10^3/uL (4.0-10.5)
[2019-04-29 04:54] LABS: ALBUMIN 3.2 g/dL (3.5-5.0); ALKALINE PHOSPHATASE 54 U/L (38-126); ANION GAP 7 (5-19); ASPARTATE AMINO TRANSFERASE 20 U/L (17-59); BILIRUBIN,DIRECT 0.1 mg/dL (0.0-0.4); BILIRUBIN,TOTAL 0.9 mg/dL (0.2-1.3); BLOOD UREA NITROGEN 13 mg/dL (7-20); CALCIUM 8.6 mg/dL (8.4-10.2); CARBON DIOXIDE 26 mmol/L (22-30); CHLORIDE 106 mmol/L (98-107); GLUCOSE 78 mg/dL (75-110); POTASSIUM 3.9 mmol/L (3.6-5.0); TOTAL PROTEIN 5.4 g/dL (6.3-8.2)
[2019-04-29] MEDS: ENOXAPARIN SODIUM INJ 40 MG/0.4 ML DISP.SYRIN SUBCUT SCH (09:07)
[2019-04-29] MEDS: FLUTICASONE PROPIONATE HFA 110 MCG/PUFF 12 GM MDI IH SCH ×2 (09:09→21:43)
[2019-04-29] MEDS: NORMAL SALINE 1000 ML 1,000 ML IV PRN (12:40)
--- NOTE | 2019-04-29 13:22 | PDOC PROGRESS REPORT ---
Subjective Progress Note for:: 04/29/19 Subjective:: Patient reported improvement in his breathing. No chest pain, fever or chills. No nausea, vomiting, or abdominal pain. Reason For Visit: SEVERE PERSISTENT ASTHMA WITH ACUTE EXACERBATION, Physical Exam Vital Signs: Temp Pulse Resp BP Pulse Ox 98.4 F 62 16 132/80 H 100 04/29/19 07:48 04/29/19 07:48 04/29/19 07:48 04/29/19 07:48 04/29/19 07:48 Intake & Output 04/28/19 04/29/19 04/30/19 06:59 06:59 06:59 Intake Total 2329 2011 Output Total 1525 1700 Balance 804 312 Weight 68.8 kg 69 kg General appearance: PRESENT: no acute distress Head exam: PRESENT: atraumatic, normocephalic Eye exam: PRESENT: conjunctiva pink. ABSENT: scleral icterus Ear exam: PRESENT: normal external ear exam Mouth exam: PRESENT: moist Respiratory exam: PRESENT: clear to auscultation josefa Cardiovascular exam: PRESENT: RRR. ABSENT: diastolic murmur, rubs, systolic murmur Vascular exam: ABSENT: pallor GI/Abdominal exam: PRESENT: normal bowel sounds, soft. ABSENT: distended, guarding, mass, organolmegaly, rebound, tenderness Rectal exam: PRESENT: deferred Extremities exam: ABSENT: pedal edema Musculoskeletal exam: PRESENT: normal inspection Neurological exam: PRESENT: alert, awake, oriented to person, oriented to place, oriented to time, oriented to situation, CN II-XII grossly intact. ABSENT: motor sensory deficit Psychiatric exam: PRESENT: appropriate affect, normal mood. ABSENT: homicidal ideation, suicidal ideation Skin exam: PRESENT: dry, warm Results Laboratory Results: 04/29/19 04:11 04/29/19 04:11 04/29/19 04/29/19 04:11 04:11 WBC 3.4 L RBC 4.52 Hgb 12.0 L Hct 36.6 L MCV 81 MCH 26.5 L MCHC 32.6 RDW 14.0 Plt Count 173 Seg Neutrophils % 36.0 L Sodium 139.1 Potassium 3.9 Chloride 106 Carbon Dioxide 26 Anion Gap 7 BUN 13 Creatinine 0.91 Est GFR ( Amer) > 60 Glucose 78 Calcium 8.6 Total Bilirubin 0.9 AST 20 Alkaline Phosphatase 54 Total Protein 5.4 L Albumin 3.2 L 04/27/19 09:07 Clean Catch Midstream Urine Culture - Final Mixed Urogenital Deya 04/27/19 04/27/19 04/27/19 06:28 06:28 12:49 Creatine Kinase 228 H 177 H CK-MB (CK-2) 2.21 Troponin I < 0.012 NT-Pro-B Natriuret Pep 43 04/27/19 04/27/19 04/27/19 12:49 18:35 18:35 Creatine Kinase 136 CK-MB (CK-2) 1.89 1.79 Troponin I < 0.012 < 0.012 NT-Pro-B Natriuret Pep Impressions: Chest X-Ray 04/27/19 00:00 IMPRESSION: Negative chest copyright 2011 [employer]- All Rights Reserved Assessment & Plan - Diagnosis (1) Severe persistent asthma with (acute) exacerbation Is this a current diagnosis for this admission?: Yes Plan: Continue current medication management. (2) Homeless single person Is this a current diagnosis for this admission?: Yes Plan: Follow up on shoe planner input regarding accommodation and possible discharge to [facility]. - Time Time Spent with patient: 25-34 minutes Medications reviewed and adjusted accordingly: Yes Anticipated discharge: Other Within: Other - Inpatient Certification Based on my medical assessment, after consideration of the patient's comorbidities, presenting symptoms, or acuity I expect that the services needed warrant INPATIENT care.: Yes I certify that my determination is in accordance with my understanding of Medicare's requirements for reasonable and necessary INPATIENT services [42 CFR 412.3e].: Yes Medical Necessity: Significant Comorbidiites Make Outpatient Treatment Too Risky, Need Close Monitoring Due to Risk of Patient Decompensation, Need For IV Fluids, Need for Nebulizer Therapy and Monitoring of Response, Risk of Co mplication if Not Cared For in Hospital, Risk of Diagnosis Which Will Require Inpatient Eval/Care/Monitoring Post Hospital Care: D/C Cigarette Packer Documentation - Plan Summary Plan Summary: Continue current medication management. Follow up on disposition efforts.
[2019-04-30 07:10] LABS: ABSOLUTE EOSINOPHILS # (AUTO) 0.3 10^3/uL (0.0-0.6); ABSOLUTE LYMPHOCYTES (AUTO) 1.2 10^3/uL (0.5-4.7); ABSOLUTE MONOCYTES (AUTO) 0.4 10^3/uL (0.1-1.4); BASOPHILS % (AUTO) 1.3 % (0-2); EOSINOPHILS % (AUTO) 10.4 % (0-6); HEMOGLOBIN 12.6 g/dL (13.5-17.0); LYMPHOCYTES % (AUTO) 41.6 % (13-45); MEAN CORPUSCULAR HEMOGLOBIN 26.5 pg (27.0-33.4); MEAN CORPUSCULAR VOLUME 80 fl (80-97); MONOCYTES % (AUTO) 12.4 % (3-13); PLATELET COUNT 185 10^3/uL (150-450); RED BLOOD COUNT 4.73 10^6/uL (4.35-5.55); RED CELL DISTRIBUTION WIDTH 13.6 % (11.5-14.0); SEGMENTED NEUTROPHILS % (AUTO) 34.3 % (42-78); TOTAL CELLS COUNTED % (AUTO) 100 %; WHITE BLOOD COUNT 2.9 10^3/uL (4.0-10.5)
[2019-04-30 07:11] LABS: ALBUMIN 3.3 g/dL (3.5-5.0); ALKALINE PHOSPHATASE 49 U/L (38-126); ANION GAP 5 (5-19); ASPARTATE AMINO TRANSFERASE 19 U/L (17-59); BILIRUBIN,DIRECT 0.1 mg/dL (0.0-0.4); BILIRUBIN,TOTAL 1.2 mg/dL (0.2-1.3); BLOOD UREA NITROGEN 10 mg/dL (7-20); CALCIUM 9.1 mg/dL (8.4-10.2); CARBON DIOXIDE 33 mmol/L (22-30); CHLORIDE 103 mmol/L (98-107); GLUCOSE 82 mg/dL (75-110); POTASSIUM 4.2 mmol/L (3.6-5.0); TOTAL PROTEIN 5.7 g/dL (6.3-8.2)
[2019-04-30] MEDS: ENOXAPARIN SODIUM INJ 40 MG/0.4 ML DISP.SYRIN SUBCUT SCH (10:14)
[2019-04-30] MEDS: FLUTICASONE PROPIONATE HFA 110 MCG/PUFF 12 GM MDI IH SCH ×2 (10:14→21:56)
[2019-04-30] MEDS ORDERED: ONDANSETRON 4 MG TAB.RAPDIS PO PRN (10:46)
--- NOTE | 2019-04-30 10:46 | PDOC PROGRESS REPORT ---
Subjective Progress Note for:: 04/30/19 Subjective:: Patient reported dizziness and nausea after administration of Lovenox earlier today. He denied any significant difficulty with breathing. No chest pain, fever or chills. No vomiting or abdominal pain. Reason For Visit: SEVERE PERSISTENT ASTHMA WITH ACUTE EXACERBATION, Physical Exam Vital Signs: Temp Pulse Resp BP Pulse Ox 98.5 F 62 16 120/89 H 100 04/30/19 07:00 04/30/19 07:00 04/30/19 07:00 04/30/19 07:00 04/30/19 07:00 Intake & Output 04/29/19 04/30/19 05/01/19 06:59 06:59 06:59 Intake Total 2011 1680 500 Output Total 0 2150 Balance 312 -470 500 Weight 69 kg 69.3 kg Physical Exam: General appearance: PRESENT: no acute distress Head exam: PRESENT: atraumatic, normocephalic Eye exam: PRESENT: conjunctiva pink. ABSENT: pallor, scleral icterus Ear exam: PRESENT: normal external ear exam Mouth exam: PRESENT: moist Respiratory exam: PRESENT: clear to auscultation josefa Cardiovascular exam: PRESENT: RRR. ABSENT: diastolic murmur, rubs, systolic murmur GI/Abdominal exam: PRESENT: normal bowel sounds, soft. ABSENT: distended, guarding, mass, organomegaly, rebound, tenderness Rectal exam: PRESENT: deferred Extremities exam: ABSENT: pedal edema Musculoskeletal exam: PRESENT: normal inspection Neurological exam: PRESENT: alert, awake, oriented to person, oriented to place, oriented to time, oriented to situation, CN II-XII grossly intact. ABSENT: motor sensory deficit Psychiatric exam: PRESENT: appropriate affect, normal mood. ABSENT: homicidal ideation, suicidal ideation Skin exam: PRESENT: dry, warm Results Laboratory Results: 04/30/19 06:24 04/30/19 06:24 04/30/19 04/30/19 06:24 06:24 WBC 2.9 L RBC 4.73 Hgb 12.6 L Hct 38.0 MCV 80 MCH 26.5 L MCHC 33.0 RDW 13.6 Plt Count 185 Seg Neutrophils % 34.3 L Sodium 140.7 Potassium 4.2 Chloride 103 Carbon Dioxide 33 H Anion Gap 5 BUN 10 Creatinine 0.91 Est GFR ( Amer) > 60 Glucose 82 Calcium 9.1 Total Bilirubin 1.2 AST 19 Alkaline Phosphatase 49 Total Protein 5.7 L Albumin 3.3 L 04/27/19 04/27/19 04/27/19 06:28 06:28 12:49 Creatine Kinase 228 H 177 H CK-MB (CK-2) 2.21 Troponin I < 0.012 NT-Pro-B Natriuret Pep 43 04/27/19 04/27/19 04/27/19 12:49 18:35 18:35 Creatine Kinase 136 CK-MB (CK-2) 1.89 1.79 Troponin I < 0.012 < 0.012 NT-Pro-B Natriuret Pep Impressions: Chest X-Ray 04/27/19 00:00 IMPRESSION: Negative chest copyright 2010 [employer]- All Rights Reserved Assessment & Plan - Diagnosis (1) Severe persistent asthma with (acute) exacerbation Is this a current diagnosis for this admission?: Yes (2) Homeless single person Is this a current diagnosis for this admission?: Yes (3) Nausea Is this a current diagnosis for this admission?: Yes Plan: Administer Zofran 4 mg po q4 hours prn for nausea. (4) Dizziness Is this a current diagnosis for this admission?: Yes Plan: Continue IV fluid support. Obtain orthostatic blood pressure. (5) Hyperlipidemia Qualifiers: Hyperlipidemia type: unspecified Qualified Code(s): E78.5 - Hyperlipidemia, unspecified Is this a current diagnosis for this admission?: Yes Plan: Maintain on dietary restriction management. - Time Time Spent with patient: 25-34 minutes Medications reviewed and adjusted accordingly: Yes Anticipated discharge: Other Within: Other - Inpatient Certification Based on my medical assessment, after consideration of the patient's comorb idities, presenting symptoms, or acuity I expect that the services needed warrant INPATIENT care.: Yes I certify that my determination is in accordance with my understanding of Medicare's requirements for reasonable and necessary INPATIENT services [42 CFR 412.3e].: Yes Medical Necessity: Significant Comorbidiites Make Outpatient Treatment Too Risky, Need Close Monitoring Due to Risk of Patient Decompensation, Need For IV Fluids, Need for Nebulizer Therapy and Monitoring of Response, Risk of Complication if Not Cared For in Hospital, Risk of Diagnosis Which Will Require Inpatient Eval/Care/Monitoring Post Hospital 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 Monitor response to Lovenox but less likely cause of his symptoms.
[2019-04-30] MEDS: NORMAL SALINE 1000 ML 1,000 ML IV PRN ×2 (14:49→21:57)
[2019-05-01] MEDS: ENOXAPARIN SODIUM INJ 40 MG/0.4 ML DISP.SYRIN SUBCUT SCH (09:52)
[2019-05-01] MEDS: FLUTICASONE PROPIONATE HFA 110 MCG/PUFF 12 GM MDI IH SCH ×2 (09:53→21:03)
[2019-05-01] MEDS: NORMAL SALINE 1000 ML 1,000 ML IV PRN (21:15)
--- NOTE | 2019-05-01 23:17 | PDOC PROGRESS REPORT ---
Subjective Progress Note for:: 05/01/19 Subjective:: Patient seen by the bedside, homelessness continues to be a challenge for this patient discharge planning working on alternative placement for him Reason For Visit: SEVERE PERSISTENT ASTHMA WITH ACUTE EXACERBATION, Physical Exam Vital Signs: Temp Pulse Resp BP Pulse Ox 98.1 F 75 16 116/63 99 05/01/19 15:32 05/01/19 15:32 05/01/19 15:32 05/01/19 15:32 05/01/19 15:32 Intake & Output 04/30/19 05/01/19 05/02/19 06:59 06:59 06:59 Intake Total 1680 3212 2502 Output Total 2150 1000 1620 Balance -470 2212 882 Weight 69.3 kg 70.3 kg General appearance: PRESENT: no acute distress Eye exam: PRESENT: PERRLA Respiratory exam: PRESENT: clear to auscultation josefa Cardiovascular exam: PRESENT: +S1, +S2 GI/Abdominal exam: PRESENT: soft Neurological exam: PRESENT: alert Results Laboratory Results: 04/30/19 06:24 04/30/19 06:24 04/27/19 04/27/19 04/27/19 06:28 06:28 12:49 Creatine Kinase 228 H 177 H CK-MB (CK-2) 2.21 Troponin I < 0.012 NT-Pro-B Natriuret Pep 43 04/27/19 04/27/19 04/27/19 12:49 18:35 18:35 Creatine Kinase 136 CK-MB (CK-2) 1.89 1.79 Troponin I < 0.012 < 0.012 NT-Pro-B Natriuret Pep Impressions: Chest X-Ray 04/27/19 00:00 IMPRESSION: Negative chest copyright 2011 [employer]- All Rights Reserved Assessment & Plan - Diagnosis (1) Severe persistent asthma with (acute) exacerbation Is this a current diagnosis for this admission?: Yes (2) Schizophrenia, chronic condition Is this a current diagnosis for this admission?: Yes
[2019-05-02] MEDS: FLUTICASONE PROPIONATE HFA 110 MCG/PUFF 12 GM MDI IH SCH ×2 (09:43→21:39)
[2019-05-02] MEDS: ENOXAPARIN SODIUM INJ 40 MG/0.4 ML DISP.SYRIN SUBCUT SCH (09:44)
[2019-05-02] MEDS: NORMAL SALINE 1000 ML 1,000 ML IV PRN (21:40)
--- NOTE | 2019-05-02 22:39 | PDOC PROGRESS REPORT ---
Subjective Progress Note for:: 05/02/19 Subjective:: Patient seen by the bedside Reason For Visit: SEVERE PERSISTENT ASTHMA WITH ACUTE EXACERBATION, Physical Exam Vital Signs: Temp Pulse Resp BP Pulse Ox 98.5 F 70 18 132/67 H 100 05/02/19 20:00 05/02/19 20:00 05/02/19 20:00 05/02/19 20:00 05/02/19 20:00 Intake & Output 05/01/19 05/02/19 05/03/19 06:59 06:59 06:59 Intake Total 3212 3402 1944 Output Total 1000 2620 800 Balance 2212 782 1144 Weight 70.3 kg General appearance: PRESENT: no acute distress Eye exam: PRESENT: PERRLA Respiratory exam: PRESENT: clear to auscultation josefa Cardiovascular exam: PRESENT: +S1, +S2 GI/Abdominal exam: PRESENT: soft Neurological exam: PRESENT: alert, CN II-XII grossly intact Results Laboratory Results: 04/30/19 06:24 04/30/19 06:24 04/27/19 07:23 Blood Blood Culture - Final NO GROWTH IN 5 DAYS 04/27/19 06:28 Blood Blood Culture - Final NO GROWTH IN 5 DAYS 04/27/19 04/27/19 04/27/19 06:28 06:28 12:49 Creatine Kinase 228 H 177 H CK-MB (CK-2) 2.21 Troponin I < 0.012 NT-Pro-B Natriuret Pep 43 04/27/19 04/27/19 04/27/19 12:49 18:35 18:35 Creatine Kinase 136 CK-MB (CK-2) 1.89 1.79 Troponin I < 0.012 < 0.012 NT-Pro-B Natriuret Pep Impressions: Chest X-Ray 04/27/19 00:00 IMPRESSION: Negative chest copyright 2011 [employer]- All Rights Reserved Assessment & Plan - Diagnosis (1) Severe persistent asthma with (acute) exacerbation Is this a current diagnosis for this admission?: Yes (2) Schizophrenia, chronic condition Is this a current diagnosis for this admission?: Yes
[2019-05-03] MEDS: ENOXAPARIN SODIUM INJ 40 MG/0.4 ML DISP.SYRIN SUBCUT SCH (10:02)
[2019-05-03] MEDS: FLUTICASONE PROPIONATE HFA 110 MCG/PUFF 12 GM MDI IH SCH ×2 (10:02→21:42)
[2019-05-03] MEDS: IPRATROPIUM/ALBUTEROL 0.5-2.5 MG/3 ML AMPUL NEB PRN (20:35)
[2019-05-04 09:15] VITALS: BP 122/58
--- NOTE | 2019-05-04 21:30 | PDOC DISCHARGE SUMMARY ---
General - Admit/Disc Date/PCP Admission Date/Primary Care Provider: 04/27/19 09:00 GIANCARLO CHANCE MD Discharge Date: 05/04/19 - Discharge Diagnosis (1) Severe persistent asthma with (acute) exacerbation Is this a current diagnosis for this admission?: Yes (2) Schizophrenia, chronic condition Is this a current diagnosis for this admission?: Yes - Additional Information Discharge Diet: As Tolerated Discharge Activity: Activity As Tolerated Prescriptions: Budesonide/Formoterol Fumarate [Symbicort Hfa 160-4.5 Mcg Inhaler 6 gm] 2 puff IH Q12 #1 inhaler Home Medications: Albuterol Sulfate [Albuterol Sulfate Hfa] 2 puff IN Q4HP PRN 04/27/19 Budesonide/Formoterol Fumarate [Symbicort Hfa 160-4.5 Mcg Inhaler 6 gm] 2 puff IH Q12 #1 inhaler 05/03/19 Physical Exam Vital Signs: Temp Pulse Resp BP Pulse Ox 98.7 F 68 16 122/58 L 98 05/04/19 09:13 05/04/19 09:13 05/04/19 09:13 05/04/19 09:13 05/04/19 09:13 Intake & Output 05/03/19 05/04/19 05/05/19 06:59 06:59 06:59 Intake Total 2694 3320 Output Total 800 1800 Balance 1894 1520 Weight 68.4 kg 67.2 kg Results Laboratory Results: 04/30/19 06:24 04/30/19 06:24 04/27/19 04/27/19 04/27/19 06:28 06:28 12:49 Creatine Kinase 228 H 177 H CK-MB (CK-2) 2.21 Troponin I < 0.012 NT-Pro-B Natriuret Pep 43 04/27/19 04/27/19 04/27/19 12:49 18:35 18:35 Creatine Kinase 136 CK-MB (CK-2) 1.89 1.79 Troponin I < 0.012 < 0.012 NT-Pro-B Natriuret Pep Impressions: Chest X-Ray 04/27/19 00:00 IMPRESSION: Negative chest copyright 2011 [employer]- All Rights Reserved
== END 2019-05-04 09:45 | disposition home or self-care (01) | DRG 203 ==
LOC: ER 06:09 → EH 09:00 → 4S 10:05
PROVIDERS: ADMIT Internal Medicine; ATTEND Internal Medicine
DX: J45.51 Severe persistent asthma with (acute) exacerbation (principal); F20.9 Schizophrenia, unspecified; F60.9 Personality disorder, unspecified; E78.5 Hyperlipidemia, unspecified; K58.1 Irritable bowel syndrome with constipation; Z59.0 Homelessness; Z87.891 Personal history of nicotine dependence
CPT/HCPCS: 36415; 71045; 80048; 80053; 80061; 80076; 80307; 81001; 82140; 82150; 82550; 82553; 82803; 82962; 83036; 83605; 83690; 83735; 83880; 84100; 84439; 84443; 84484; 85025; 85610; 85730; 87040; 87086; 93005; 93010; 99284; J1650; J2930; J3475; J3490; J7030; J7620

== ENCOUNTER 2019-05-05 11:30 | Emergency (ER) | payer MEDICAID ==
--- NOTE | 2019-05-05 12:42 | ER Document Report ---
ED Medical Screen (RME) - General Chief Complaint: Nausea/Vomiting Stated Complaint: VOMITING Time Seen by Provider: 05/05/19 12:40 Primary Care Provider: GIANCARLO CHANCE MD [Primary Care Provider] - Follow up as needed Notes: 32-year-old male presents to ED for complaint sick stomach. He states he is vomiting up anything he eats and the throat hurts from the vomiting. He states when he vomited yellow. He states he cannot keep any liquids down due to the vomiting. He states it is a reflux type pain. He states he has not had a stool since yesterday. He states he felt like it is very hot yesterday. I have greeted and performed a rapid initial assessment of this patient. A comprehensive ED assessment and evaluation of the patient, analysis of test results and completion of medical decision making process will be conducted by an additional ED providers. TRAVEL OUTSIDE OF THE [place] IN LAST 30 DAYS: No COUNTRY TRAVELED TO/FROM: [facility] - Related Data Allergies/Adverse Reactions: No Known Allergies Allergy (Verified 05/05/19 11:31) Past Medical History - Social History Family history: Reviewed & Not Pertinent Pulmonary Medical History: Reports: Hx Asthma - not on home O2, Hx Bronchitis Endocrine Medical History: Denies: Hx Diabetes Mellitus Type 1, Hx Diabetes Mellitus Type 2 Renal/ Medical History: Denies: Hx Peritoneal Dialysis GI Medical History: Reports: Hx Irritable Bowel - constipation Musculoskeltal Medical History: Reports Hx Arthritis, Reports Hx Musculoskeletal Trauma Psychiatric Medical History: Reports: Hx Anxiety, Hx Bipolar Disorder, Hx Depression, Hx Personality Disorder, Hx Schizoaffective Disorder, Hx Schizophrenia Traumatic Medical History: Reports: Hx Fractures - Finger fracture Past Surgical History: Reports: Hx Abdominal Surgery, Hx Appendectomy, Hx Cholecystectomy, Hx Orthopedic Surgery - fractured finger - Immunizations Immunizations up to date: Yes Hx Diphtheria, Pertussis, Tetanus Vaccination: Yes - 2012 Physical Exam - Vital signs Vitals: Temp Pulse Resp BP Pulse Ox 98.6 F 101 H 16 102/89 H 95 05/05/19 11:47 05/05/19 11:47 05/05/19 11:47 05/05/19 11:47 05/05/19 11:47 Course - Vital Signs Vital signs: Temp Pulse Resp BP Pulse Ox 98.6 F 101 H 16 102/89 H 95 05/05/19 11:47 05/05/19 11:47 05/05/19 11:47 05/05/19 11:47 05/05/19 11:47 Doctor's Discharge - Discharge Referrals: GIANCARLO CHANCE MD [Primary Care Provider] - Follow up as needed
[2019-05-05] MEDS ORDERED: ONDANSETRON HCL INJ/PF 4 MG/2 ML SDV IV ONE ×2 (12:43→15:00)
--- NOTE | 2019-05-05 15:27 | ER Document Report ---
ED General - General Chief Complaint: Nausea/Vomiting Stated Complaint: VOMITING Time Seen by Provider: 05/05/19 12:40 Primary Care Provider: GIANCARLO CHANCE MD [Primary Care Provider] - Follow up as needed Notes: 32-year-old male with asthma and schizophrenia presents to ED for complaint and upset stomach. He states he is vomiting up anything he eats and his throat hurts from the vomiting. He describes the vomit as yellow and he cannot keep any liquids down due to the vomiting. He states it is a reflux type pain. He states he has not had a stool since yesterday. He denies fevers or chills, acute shortness of breath or chest pain, acute weakness, dizziness or lightheadedness, muscle cramps. TRAVEL OUTSIDE OF THE [place] IN LAST 30 DAYS: No COUNTRY TRAVELED TO/FROM: [facility] - Related Data Allergies/Adverse Reactions: No Known Allergies Allergy (Verified 05/05/19 11:31) Past Medical History - Social History Smoking Status: Never Smoker Family History: Reviewed & Not Pertinent Patient has suicidal ideation: No Patient has homicidal ideation: No Pulmonary Medical History: Reports: Hx Asthma - not on home O2, Hx Bronchitis Endocrine Medical History: Denies: Hx Diabetes Mellitus Type 1, Hx Diabetes Mellitus Type 2 Renal/ Medical History: Denies: Hx Peritoneal Dialysis GI Medical History: Reports: Hx Irritable Bowel - constipation Musculoskeletal Medical History: Reports Hx Arthritis, Reports Hx Musculoskeletal Trauma Psychiatric Medical History: Reports: Hx Anxiety, Hx Bipolar Disorder, Hx Depression, Hx Personality Disorder, Hx Schizoaffective Disorder, Hx Schizophrenia Traumatic Medical History: Reports: Hx Fractures - Finger fracture Past Surgical History: Reports: Hx Abdominal Surgery, Hx Appendectomy, Hx Cholecystectomy, Hx Orthopedic Surgery - fractured finger - Immunizations Immunizations up to date: Yes Hx Diphtheria, Pertussis, Tetanus Vaccination: Yes - 2012 Hx Pneumococcal Vaccination: 08/23/00 Review of Systems - Review of Systems Constitutional: See HPI EENT: No symptoms reported Cardiovascular: See HPI Respiratory: See HPI Gastrointestinal: See HPI Genitourinary: No symptoms reported Male Genitourinary: No symptoms reported Musculoskeletal: See HPI Skin: No symptoms reported Hematologic/Lymphatic: No symptoms reported Neurological/Psychological: See HPI Physical Exam - Vital signs Vitals: Temp Pulse Resp BP Pulse Ox 98.6 F 101 H 16 102/89 H 95 05/05/19 11:47 05/05/19 11:47 05/05/19 11:47 05/05/19 11:47 05/05/19 11:47 - Notes Notes: PHYSICAL EXAMINATION: Reviewed vital signs and charting by RN GENERAL: Alert, interacts well. No acute distress. HEAD: Normocephalic, atraumatic. EYES: Pupils equal and round. Extraocular movements intact. ENT: Oral mucosa moist, tongue midline. NECK: Full range of motion. Trachea midline. LUNGS: Clear to auscultation bilaterally, no wheezes, rales, or rhonchi. No respiratory distress. HEART: Regular rate and rhythm. No murmur ABDOMEN: soft, non-tender. No distention. Bowel sounds present EXTREMITIES: Moves all 4 extremities spontaneously. No edema, No cyanosis. PSYCH: Normal affect, normal mood. SKIN: Warm, dry, normal turgor. No rashes or lesions noted. Course - Re-evaluation Re-evalutation: 05/05/19 17:56 Patient arrived with symptoms of nausea and vomiting. Patient received Zofran 4 mg IV once. Patient states he feels much better after receiving the Zofran and has tolerated p.o. fluids. Patient has eaten some applesauce, drink some grape juice, drink some Gatorade. Lab work all unremarkable consistent with a mild dehydration. At this time pending urine patient is stable for discharge. 05/05/19 17:57 - Vital Signs Vital signs: Temp Pulse Resp BP Pulse Ox 98.6 F 101 H 16 102/89 H 95 05/05/19 11:47 05/05/19 11:47 05/05/19 11:47 05/05/19 11:47 05/05/19 11:47 - Laboratory Result Diagrams: 05/05/19 15:32 05/05/19 15:32 Laboratory results interpreted by me: 05/05/19 05/05/19 15:32 15:32 WBC 12.2 H RBC 6.01 H MCV 79 L MCH 26.3 L RDW 14.3 H Seg Neuts % (Manual) 86 H Lymphocytes % (Manual) 5 L Monocytes % (Manual) 2 L Abs Neuts (Manual) 11.1 H Sodium 136.1 L Chloride 95 L BUN 23 H Total Bilirubin 1.9 H AST 62 H Total Protein 8.4 H Discharge - Discharge Clinical Impression: Mild dehydration Nausea and vomiting Qualifiers: Vomiting type: unspecified Vomiting Intractability: non-intractable Qualified Code(s): R11.2 - Nausea with vomiting, unspecified Condition: Good Disposition: HOME, SELF-CARE Instructions: Vomiting ([facility]), Antinausea Medication ([facility]) Additional Instructions: You have been seen in the Emergency Department (ED) today for nausea and vomiting. Your work up today has not shown a clear cause for your symptoms. You have been prescribed Zofran; please use as prescribed as needed for your nausea. Follow up with your doctor as soon as possible regarding today's emergent visit and your symptoms of nausea. Return to the Emergency Department (ED) if you develop abdominal pain, bloody vomiting, bloody diarrhea, if you are unable to tolerate fluids due to vomiting, or if you develop other symptoms that concern you. Referrals: GIANCARLO CHANCE MD [Primary Care Provider] - Follow up as needed
[2019-05-05] MEDS: NORMAL SALINE 1000 ML 1,000 ML IV PRN ×2 (15:50→18:51)
[2019-05-05 15:59] LABS: HEMATOCRIT 47.6 % (37.9-51.0); HEMOGLOBIN 15.8 g/dL (13.5-17.0); MEAN CORPUSCULAR HEMOGLOBIN 26.3 pg (27.0-33.4); MEAN CORPUSCULAR HGB CONC 33.3 g/dL (32.0-36.0); MEAN CORPUSCULAR VOLUME 79 fl (80-97); RED BLOOD COUNT 6.01 10^6/uL (4.35-5.55); RED CELL DISTRIBUTION WIDTH 14.3 % (11.5-14.0); WHITE BLOOD COUNT 12.2 10^3/uL (4.0-10.5)
[2019-05-05 16:15] LABS: ALBUMIN 4.9 g/dL (3.5-5.0); ALKALINE PHOSPHATASE 81 U/L (38-126); ANION GAP 15 (5-19); ASPARTATE AMINO TRANSFERASE 62 U/L (17-59); BILIRUBIN,DIRECT 0.4 mg/dL (0.0-0.4); BILIRUBIN,TOTAL 1.9 mg/dL (0.2-1.3); BLOOD UREA NITROGEN 23 mg/dL (7-20); CALCIUM 9.8 mg/dL (8.4-10.2); CARBON DIOXIDE 26 mmol/L (22-30); CHLORIDE 95 mmol/L (98-107); CREATINE KINASE 60 U/L (55-170); GLUCOSE 106 mg/dL (75-110); TOTAL PROTEIN 8.4 g/dL (6.3-8.2)
[2019-05-05 16:22] LABS: ABSOLUTE LYMPHOCYTES# (MANUAL) 0.9 10^3/uL (0.5-4.7); ABSOLUTE MONOCYTES # (MANUAL) 0.2 10^3/uL (0.1-1.4); BAND NEUTROPHILS % (MANUAL) 5 % (3-5); BASOPHILS % (MANUAL) 0 % (0-2); EOSINOPHILS % (MANUAL) 0 % (0-6); LYMPHOCYTES % (MANUAL) 5 % (13-45); MONOCYTES % (MANUAL) 2 % (3-13); SEGMENTED NEUTROPHILS % (MAN) 86 % (42-78); TOTAL CELLS COUNTED 100
[2019-05-05 16:23] LABS: ANISOCYTOSIS SLIGHT
[2019-05-05 16:24] LABS: PLATELET COMMENT ADEQUATE; PLATELET COUNT 200 10^3/uL (150-450)
[2019-05-05] MEDS ORDERED: ONDANSETRON ODT 4 MG TAB (6 TAB/ER DISP) PO PRN (17:58)
[2019-05-05 18:00] LABS: APPEARANCE,URINE CLEAR; BILIRUBIN,URINE NEGATIVE (NEGATIVE); COLOR,URINE YELLOW; GLUCOSE, URINE NEGATIVE (NEGATIVE); KETONES,URINE TRACE mg/dL (NEGATIVE); LEUKOCYTE ESTERASE,URINE NEGATIVE (NEGATIVE); NITRITE,URINE NEGATIVE (NEGATIVE); PROTEIN,URINE NEGATIVE (NEGATIVE); UROBILINOGEN,URINE NEGATIVE mg/dL (<2.0)
[2019-05-05 20:51] VITALS: BP 113/60
== END 2019-05-05 20:45 | disposition home or self-care (01) ==
LOC: ER 11:30
DX: R11.2 Nausea with vomiting, unspecified (principal); E86.0 Dehydration; R07.0 Pain in throat; J45.909 Unspecified asthma, uncomplicated
CPT/HCPCS: 99284; 96361; 96374; 36415; 82550; 83690; 85025; 80053; 81001; J2405; J7030

== ENCOUNTER 2019-05-06 05:15 | Emergency (ER) | payer MEDICAID ==
[2019-05-06 05:21] VITALS: BP 118/69
[2019-05-06] MEDS ORDERED: ALBUTEROL SULFATE HFA (90 MCG/PUFF) 8 GM MDI (1 MDI/ER DISP) IH ONE (07:32)
--- NOTE | 2019-05-06 09:51 | ER Document Report ---
Entered by MALU VERGARA SCRIBE 05/06/19 0729 Acting as scribe for:LENIN SOLIS MD ED Respiratory Problem - General Chief Complaint: Medication Refill Stated Complaint: MEDICATION REFILL Time Seen by Provider: 05/06/19 06:56 Primary Care Provider: GIANCARLO CHANCE MD [Primary Care Provider] - Follow up in 3-5 days Mode of Arrival: Ambulatory Information source: Patient, [facility] Records Notes: This 33-year-old male patient comes emergency room to get an albuterol inhaler. He has been given prescriptions many times in the past, but does not go to the pharmacy to fill them. He likewise does not go to his primary care provider although it is free for him. He does come to the emergency room with asthma and bronchitis exacerbations on a regular basis partly due to his homeless living conditions. He does not seem to have the mental capacity to follow simple instructions. He was placed in a penitentiary 1 to 2 days ago, and has already been kicked out, according to the patient. TRAVEL OUTSIDE OF THE [place] IN LAST 30 DAYS: No COUNTRY TRAVELED TO/FROM: [facility] - Related Data Allergies/Adverse Reactions: No Known Allergies Allergy (Verified 05/05/19 11:31) Past Medical History - General Information source: Patient, [facility] Records - Social History Smoking Status: Current Every Day Smoker Cigarette use (# per day): Yes Family History: Reviewed & Not Pertinent Patient has suicidal ideation: No Patient has homicidal ideation: No Pulmonary Medical History: Reports: Hx Asthma - not on home O2, Hx Bronchitis GI Medical History: Reports: Hx Irritable Bowel - constipation Musculoskeletal Medical History: Reports Hx Arthritis, Reports Hx Musculoskeletal Trauma Psychiatric Medical History: Reports: Hx Anxiety, Hx Bipolar Disorder, Hx Depression, Hx Personality Disorder, Hx Schizoaffective Disorder, Hx Schizophrenia Traumatic Medical History: Reports: Hx Fractures - Finger fracture Past Surgical History: Reports: Hx Abdominal Surgery, Hx Appendectomy, Hx Cholecystectomy, Hx Orthopedic Surgery - fractured finger - Immunizations Immunizations up to date: Yes Hx Diphtheria, Pertussis, Tetanus Vaccination: Yes - 2012 Hx Pneumococcal Vaccination: 08/23/00 Review of Systems - Review of Systems Constitutional: No symptoms reported EENT: No symptoms reported Cardiovascular: No symptoms reported Respiratory: See HPI, Wheezing Gastrointestinal: No symptoms reported Genitourinary: No symptoms reported Male Genitourinary: No symptoms reported Musculoskeletal: No symptoms reported Skin: No symptoms reported Hematologic/Lymphatic: No symptoms reported Neurological/Psychological: No symptoms reported -: Yes All other systems reviewed and negative Physical Exam - Vital signs Vitals: Temp Pulse Resp BP Pulse Ox 97.8 F 74 15 118/69 98 05/06/19 05:16 05/06/19 05:16 05/06/19 05:16 05/06/19 05:16 05/06/19 05:16 - Notes Notes: Physical Exam: General: Alert, disheveled, malodorous, at baseline. HEENT: Normocephalic. Atraumatic. PERRL. Extraocular movements intact. Oropharynx clear. Neck: Supple. Non-tender. Respiratory: No respiratory distress. Clear and equal breath sounds bilaterally. Cardiovascular: Regular rate and rhythm. Abdominal: Normal Inspection. Non-tender. No distension. Normal Bowel Sounds. Back: No gross abnormalities. Extremities: Moves all four extremities. Upper extremities: Normal inspection. Normal ROM. Lower extremities: Normal inspection. No edema. Normal ROM. Neurological: Normal cognition. AAOx4. Normal speech. Psychological: Normal affect. Normal Mood. Skin: Warm. Dry. Normal color. Course - Vital Signs Vital signs: Temp Pulse Resp BP Pulse Ox 97.8 F 74 15 118/69 98 05/06/19 05:16 05/06/19 05:16 05/06/19 05:16 05/06/19 05:16 05/06/19 05:16 Discharge - Discharge Clinical Impression: Homeless single person, Has run out of medications Asthma Qualifiers: Asthma severity: mild Asthma persistence: intermittent Asthma complication type: uncomplicated Qualified Code(s): J45.20 - Mild intermittent asthma, uncomplicated Condition: Stable Disposition: HOME, SELF-CARE Additional Instructions: Follow-up with Dr. Chance in the office to get your prescriptions for the medication you need. Referrals: GIANCARLO CHANCE MD [Primary Care Provider] - Follow up in 3-5 days Scribe Attestation: 05/06/19 07:30 I personally performed the services described in the documentation, reviewed and edited the documentation which was dictated to the scribe in my presence, and it accurately records my words and actions. I personally performed the services described in the documentation, reviewed and edited the documentation which was dictated to the scribe in my presence, and it accurately records my words and actions.
== END 2019-05-06 08:19 | disposition home or self-care (01) ==
LOC: ER 05:15
DX: Z76.0 Encounter for issue of repeat prescription (principal); J45.20 Mild intermittent asthma, uncomplicated; F17.210 Nicotine dependence, cigarettes, uncomplicated; Z59.0 Homelessness
CPT/HCPCS: 99281; J3490

== ENCOUNTER 2019-05-10 15:08 | Emergency (ER) | payer MEDICAID ==
[2019-05-10] MEDS ORDERED: ONDANSETRON 4 MG TAB.RAPDIS PO ONE ×2 (15:56→15:59)
[2019-05-10] MEDS ORDERED: ACETAMINOPHEN 325 MG TABLET PO ONE (15:59)
--- NOTE | 2019-05-10 16:00 | ER Document Report ---
ED General - General Chief Complaint: Headache Stated Complaint: HEADACHE Time Seen by Provider: 05/10/19 15:22 Primary Care Provider: GIANCARLO CHANCE MD [Primary Care Provider] - Follow up in 3-5 days TRAVEL OUTSIDE OF THE [place] IN LAST 30 DAYS: No COUNTRY TRAVELED TO/FROM: [facility] - [facility] Notes: 33-year-old male to the emergency department with complaints of frontal headache and nausea that began shortly after taking his penicillin VK just prior to arrival. He states that he was at a soup kitchen and drinking unsweetened tea and eating Ramen that may have been bad. He states after taking the antibiotic for a tooth infection he began to feel poorly. He denies any cheng vomiting. He denies any fevers, chills, neck pain, blurry vision, head injury. He states that he has had the penicillin before and has not had any trouble with it. - Related Data Allergies/Adverse Reactions: No Known Allergies Allergy (Verified 05/05/19 11:31) Past Medical History - General Information source: Patient - Social History Smoking Status: Never Smoker Chew tobacco use (# tins/day): No Frequency of alcohol use: None Drug Abuse: None Family History: Reviewed & Not Pertinent Patient has suicidal ideation: No Patient has homicidal ideation: No Pulmonary Medical History: Reports: Hx Asthma - not on home O2, Hx Bronchitis Endocrine Medical History: Denies: Hx Diabetes Mellitus Type 1, Hx Diabetes Mellitus Type 2 Renal/ Medical History: Denies: Hx Peritoneal Dialysis GI Medical History: Reports: Hx Irritable Bowel - constipation Musculoskeletal Medical History: Reports Hx Arthritis, Reports Hx Musculoskeletal Trauma Psychiatric Medical History: Reports: Hx Anxiety, Hx Bipolar Disorder, Hx Depres zeynep, Hx Personality Disorder, Hx Schizoaffective Disorder, Hx Schizophrenia Traumatic Medical History: Reports: Hx Fractures - Finger fracture Past Surgical History: Reports: Hx Abdominal Surgery, Hx Appendectomy, Hx Cholecystectomy, Hx Orthopedic Surgery - fractured finger - Immunizations Immunizations up to date: Yes Hx Diphtheria, Pertussis, Tetanus Vaccination: Yes - 2012 Hx Pneumococcal Vaccination: 08/23/00 Review of Systems - Review of Systems Constitutional: denies: Chills, Fever EENT: denies: Eye pain, Nose discharge Cardiovascular: denies: Chest pain, Palpitations, Heart racing, Syncope, Dizziness, Lightheaded, Edema Respiratory: denies: Cough, Short of breath Gastrointestinal: Nausea. denies: Abdominal pain, Diarrhea, Vomiting Skin: No symptoms reported Neurological/Psychological: Headaches -: Yes All other systems reviewed and negative Physical Exam - Vital signs Vitals: Temp Pulse Resp BP Pulse Ox 98.0 F 70 18 135/76 H 99 05/10/19 15:17 05/10/19 15:17 05/10/19 15:17 05/10/19 15:17 05/10/19 15:17 - General General appearance: Appears well, Alert In distress: None - HEENT Head: Normocephalic, Atraumatic Eyes: Normal Pupils: PERRL Ears: Normal External canal: Normal Tympanic membrane: Normal Sinus: Normal Nasal: Normal Mouth/Lips: Normal Mucous membranes: Normal Pharynx: Normal Neck: Normal, Supple. No: Meningismus - Respiratory Respiratory status: No respiratory distress Chest status: Nontender Breath sounds: Normal Chest palpation: Normal - Cardiovascular Rhythm: Regular Heart sounds: Normal auscultation Murmur: No - Back Back: Normal, Nontender. No: Vertebra tenderness - Extremities General upper extremity: Normal inspection, Nontender, Normal color, Normal ROM, Normal temperature General lower extremity: Normal inspection, Nontender, Normal color, Normal ROM, Normal temperature, Normal weight bearing - Neurological Neuro grossly intact: Yes Cognition: Normal Orientation: AAOx4 [place] Coma Scale Eye Opening: Spontaneous [place] Coma Scale Verbal: Oriented [place] Coma Scale Motor: Obeys Commands [place] Coma Scale Total: 15 Speech: Normal Cranial nerves: Normal Cerebellar coordination: Normal Motor strength normal: LUE, RUE, LLE, RLE Additional motor exam normals: Equal frame aligner. No: Pronator drift Sensory: Normal - Psychological Associated symptoms: Normal mood, Other Notes: Blunt affect - Skin Skin Temperature: Warm Skin Moisture: Dry Skin Color: Normal Course - Re-evaluation Re-evalutation: 05/10/19 Impression: Headache, nausea without vomiting. Patient has reassuring vital signs and clinically he looks well. Did give Tylenol and Zofran. Did p.o. challenge after these medications and patient has done very well. He states that he is feeling much better after these medicines. Could have been a combination between bad food and taking his antibiotic on an empty stomach. He has never had an allergic reaction to penicillin before and he has no allergic symptoms. Have encouraged him to continue the antibiotic as prescribed and will also write for Zofran. Patient agrees with the plan will discharge home - Vital Signs Vital signs: Temp Pulse Resp BP Pulse Ox 98.6 F 61 20 138/79 H 100 05/10/19 19:12 05/10/19 19:12 05/10/19 19:12 05/10/19 19:12 05/10/19 19:12 Discharge - Discharge Clinical Impression: Headache, Nausea Disposition: HOME, SELF-CARE Instructions: Headache ([facility]) Additional Instructions: take medicines as prescribed. Take antibiotics on a full stomach. Push fluids. Return if worsening symptoms. Prescriptions: Ondansetron [Zofran Odt 4 mg Tablet] 1 - 2 tab PO Q4HP PRN #10 tab.rapdis PRN Reason: Referrals: GIANCARLO CHANCE MD [Primary Care Provider] - Follow up in 3-5 days
[2019-05-10 19:13] VITALS: BP 138/79
== END 2019-05-10 19:18 | disposition home or self-care (01) ==
LOC: ER 15:08
DX: R51 Headache (principal); R11.0 Nausea; Z90.49 Acquired absence of other specified parts of digestive tract
CPT/HCPCS: J3490; S0119

== ENCOUNTER 2019-05-22 11:22 | Emergency (ER) | payer MEDICAID ==
[2019-05-22 11:33] VITALS: BP 114/66
[2019-05-22] MEDS ORDERED: ALBUTEROL SULFATE HFA (90 MCG/PUFF) 8 GM MDI (1 MDI/ER DISP) IH PRN (11:33)
--- NOTE | 2019-05-22 11:38 | ER Document Report ---
HPI - HPI Time Seen by Provider: 05/22/19 11:33 Notes: Patient is a 33-year-old male well-known to the ED with a history of asthma who presents for an albuterol inhaler. Patient states that his ran out and he needs another one. Patient states that he is otherwise feeling well. He is able to eat and drink without difficulty. He is urinating normally. Denies drug allergies. He has not had any acute flareup today. No recent illness. Denies any headache, fever, neck pain, URI, sore throat, chest pain, palpitations, syncope, cough, shortness of breath, wheeze, dyspnea, abdominal pain, nausea/vomiting/diarrhea, urinary retention, dysuria, hematuria, or rash. - ROS Systems Reviewed and Negative: Yes All other systems reviewed and negative - REPRODUCTIVE Reproductive: DENIES: : Past Medical History - Social History Smoking Status: Unknown if Ever Smoked Family History: Reviewed & Not Pertinent Pulmonary Medical History: Reports: Hx Asthma - not on home O2, Hx Bronchitis Endocrine Medical History: Denies: Hx Diabetes Mellitus Type 1, Hx Diabetes Mellitus Type 2 Renal/ Medical History: Denies: Hx Peritoneal Dialysis GI Medical History: Reports: Hx Irritable Bowel - constipation Musculoskeletal Medical History: Reports Hx Arthritis, Reports Hx Musculoskeletal Trauma Psychiatric Medical History: Reports: Hx Anxiety, Hx Bipolar Disorder, Hx Depression, Hx Personality Disorder, Hx Schizoaffective Disorder, Hx Schizophrenia Traumatic Medical History: Reports: Hx Fractures - Finger fracture Past Surgical History: Reports: Hx Abdominal Surgery, Hx Appendectomy, Hx Cholecystectomy, Hx Orthopedic Surgery - fractured finger - Immunizations Immunizations up to date: Yes Hx Diphtheria, Pertussis, Tetanus Vaccination: Yes - 2012 Hx Pneumococcal Vaccination: 08/23/00 Vertical Provider Document - CONSTITUTIONAL Agree With Documented VS: Yes Notes: PHYSICAL EXAMINATION: GENERAL: Well-appearing, well-nourished and in no acute distress. HEAD: Atraumatic, normocephalic. EYES: Pupils equal round and reactive to light, extraocular movements intact, sclera anicteric, conjunctiva are normal. ENT: Nares patent and without discharge. oropharynx clear without exudates. No tonsilar hypertrophy or erythema. Moist mucous membranes. NECK: Normal range of motion, supple without lymphadenopathy LUNGS: Breath sounds clear to auscultation bilaterally and equal. No wheezes rales or rhonchi. HEART: Regular rate and rhythm without murmurs, rubs, gallops. Musculoskeletal: FROM to passive/active. Strength 5+/5. Esdras neg. No asymmetry to LE's. Extremities: No cyanosis, clubbing, or edema b/l. NEUROLOGICAL: Normal speech, normal gait. PSYCH: Normal mood, normal affect. SKIN: Warm, Dry, normal turgor, no rashes or lesions noted. - INFECTION CONTROL TRAVEL OUTSIDE OF THE [place] IN LAST 30 DAYS: No COUNTRY TRAVELED TO/FROM: [facility] Course - Re-evaluation Re-evalutation: 05/22/19 11:35 Patient is an afebrile, well-hydrated, 33-year-old male who presents for medication refill. Vitals are acceptable without significant tachycardia, tachypnea, or hypoxia. PE is otherwise unremarkable. Patient's lungs are clear to auscultation bilaterally. He is nontoxic-appearing and is tolerating p.o. without albuterol dispensed from the ED. No work-up warranted at this time. Low suspicion for any emergent condition at this time. Patient is otherwise asymptomatic. Patient to recheck with his PCM this week. Return to the ED with any other worsening/concerning symptoms. Patient is in agreement. - Vital Signs Vital signs: Temp Pulse Resp BP Pulse Ox 97.7 F 61 18 114/66 99 05/22/19 11:32 05/22/19 11:32 05/22/19 11:32 05/22/19 11:32 05/22/19 11:32 Discharge - Discharge Clinical Impression: Medication refill Condition: Stable Disposition: HOME, SELF-CARE Additional Instructions: Maintain adequate fluid intake over the counter cold medication as needed for symptoms Humidified air may help Wash your hands regularly Wear a mask when coughing F/u: with your PCM in 3-5 days for a recheck Return to the ED with any fever, altered mental status/behavior, chest pain, palpitations, syncope, headache, neck pain/stiffness, shortness of breath, chest pains, wheezing, drooling, trouble swallowing/breathing, abdominal pain, n/v/d, rash, or worsening/concerning symptoms otherwise. Prescriptions: Albuterol Sulfate [Proair HFA Inhalation Aerosol 8.5 gm MDI] 2 puff IH Q4H PRN #1 mdi PRN Reason: Referrals: GIANCARLO CHANCE MD [Primary Care Provider] - Follow up as needed
== END 2019-05-22 11:49 | disposition home or self-care (01) ==
LOC: ER 11:22
DX: Z76.0 Encounter for issue of repeat prescription (principal); J45.909 Unspecified asthma, uncomplicated
CPT/HCPCS: 99281; J3490

== ENCOUNTER 2019-06-03 00:41 | Emergency (ER) | payer MEDICAID ==
[2019-06-03] MEDS ORDERED: ALBUTEROL SULFATE HFA (90 MCG/PUFF) 8 GM MDI (1 MDI/ER DISP) IH ONE (00:50)
--- NOTE | 2019-06-03 00:55 | ER Document Report ---
HPI - HPI Patient complains to provider of: medication refill Time Seen by Provider: 06/03/19 00:46 Onset: Just prior to arrival Quality of pain: No pain Context: This 33-year-old male with history of asthma and bipolar presents emergency department with request for an inhaler. Reports he ran out. Patient has history of asthma. Reports he coughed a couple days ago and vomited. No other complaints such as fever or diarrhea. Patient speaking clear voice no retractions respiratory rate even nonlabored Associated Symptoms: None Exacerbated by: Denies Relieved by: Denies Similar symptoms previously: Yes Recently seen / treated by doctor: No - REPRODUCTIVE Reproductive: DENIES: : Past Medical History - General Information source: Patient - Social History Smoking Status: Unknown if Ever Smoked Cigarette use (# per day): No Frequency of alcohol use: None Drug Abuse: None Family History: Reviewed & Not Pertinent Patient has suicidal ideation: No Patient has homicidal ideation: No Pulmonary Medical History: Reports: Hx Asthma - not on home O2, Hx Bronchitis Endocrine Medical History: Denies: Hx Diabetes Mellitus Type 1, Hx Diabetes Mellitus Type 2 Renal/ Medical History: Denies: Hx Peritoneal Dialysis GI Medical History: Reports: Hx Irritable Bowel - constipation Musculoskeletal Medical History: Reports Hx Arthritis, Reports Hx Musculoskeletal Trauma Psychiatric Medical History: Reports: Hx Anxiety, Hx Bipolar Disorder, Hx Depression, Hx Personality Disorder, Hx Schizoaffective Disorder, Hx Schizophrenia Traumatic Medical History: Reports: Hx Fractures - Finger fracture Past Surgical History: Reports: Hx Abdominal Surgery, Hx Appendectomy, Hx Cholecystectomy, Hx Orthopedic Surgery - fractured finger - Immunizations Immunizations up to date: Yes Hx Diphtheria, Pertussis, Tetanus Vaccination: Yes - 2012 Hx Pneumococcal Vaccination: 08/23/00 Vertical Provider Document - CONSTITUTIONAL Agree With Documented VS: Yes Exam Limitations: No Limitations General Appearance: WD/WN, No Apparent Distress - INFECTION CONTROL TRAVEL OUTSIDE OF THE [place] IN LAST 30 DAYS: No COUNTRY TRAVELED TO/FROM: [place] - HEENT HEENT: Atraumatic, Conjuctival Injection, Normocephalic - NECK Neck: Normal Inspection, Supple - RESPIRATORY Respiratory: No Respiratory Distress - CARDIOVASCULAR Cardiovascular: Regular Rate - MUSCULOSKELETAL/EXTREMETIES Musculoskeletal/Extremeties: MAEW, FROM - NEURO Level of Consciousness: Awake, Alert, Appropriate Motor/Sensory: No Motor Deficit - DERM Integumentary: Warm, Dry Course - Re-evaluation Re-evalutation: 06/03/19 00:52 This 33-year-old male who is well-known in this emergency department presents with history of asthma with request for a refill on his inhaler. He denies fever vomiting diarrhea although he admits he did cough a couple days ago and it caused him to vomit. Patient speaking a clear voice no respiratory distress. Will prescribe him an inhaler. Dictation of this chart was performed using voice recognition software; therefore, there may be some unintended grammatical errors. Discharge - Discharge Clinical Impression: Medication refill, History of asthma Condition: Stable Disposition: HOME, SELF-CARE Instructions: Bronchodilators (OM) Additional Instructions: *You have been evaluated for an inhaler with history of asthma *Use the inhaler as prescribed *Follow up with a primary care provider within one week *Return to ED for increasing fever, cough, worsening condition, changes, needs, difficulty breathing Referrals: GIANCARLO CHANCE MD [Primary Care Provider] - Follow up in 1 week
[2019-06-03 00:56] VITALS: BP 131/78
== END 2019-06-03 01:00 | disposition home or self-care (01) ==
LOC: ER 00:41
DX: J45.909 Unspecified asthma, uncomplicated (principal)
CPT/HCPCS: 99281; J3490

== ENCOUNTER 2019-06-03 06:44 | Emergency (ER) | payer MEDICAID ==
[2019-06-03] MEDS ORDERED: PREDNISONE 20 MG TABLET PO ONE (08:34)
[2019-06-03] MEDS ORDERED: IPRATROPIUM/ALBUTEROL 0.5-2.5 MG/3 ML AMPUL NEB ONE (08:34)
--- NOTE | 2019-06-03 08:44 | ER Document Report ---
ED Respiratory Problem - General Chief Complaint: Shortness Of Breath Stated Complaint: CHEST TIGHTNESS Time Seen by Provider: 06/03/19 08:33 Primary Care Provider: GIANCARLO CHANCE MD [Primary Care Provider] - Follow up as needed TRAVEL OUTSIDE OF THE [place] IN LAST 30 DAYS: No COUNTRY TRAVELED TO/FROM: [facility] - [facility] Notes: 33-year-old male to the emergency department with complaints of an exasperation of his asthma tonight. He states that he began to cough this evening and then started to wheeze. He states that he has had chest tightness. He states that the coughing seems to aggravate his asthma the most. He denies any fevers or chills. He was here last night to get a refill of his inhaler and he admits that he did take that but it did not help. He reports a remote history of intubation and hospitalization for his asthma. He states "it has been a long time since that happened". He does not smoke. He has been resting in the ER an d states that he feels a little bit better in his chest. - Related Data Allergies/Adverse Reactions: No Known Allergies Allergy (Verified 05/22/19 11:33) Past Medical History - General Information source: Patient - Social History Smoking Status: Never Smoker Frequency of alcohol use: None Drug Abuse: None Family History: Reviewed & Not Pertinent Patient has suicidal ideation: No Patient has homicidal ideation: No Pulmonary Medical History: Reports: Hx Asthma - not on home O2, Hx Bronchitis Endocrine Medical History: Denies: Hx Diabetes Mellitus Type 1, Hx Diabetes Mellitus Type 2 Renal/ Medical History: Denies: Hx Peritoneal Dialysis GI Medical History: Reports: Hx Irritable Bowel - constipation Musculoskeletal Medical History: Reports Hx Arthritis, Reports Hx Musculoskeletal Trauma Psychiatric Medical History: Reports: Hx Anxiety, Hx Bipolar Disorder, Hx Depression, Hx Personality Disorder, Hx Schizoaffective Disorder, Hx Schizophrenia Traumatic Medical History: Reports: Hx Fractures - Finger fracture Past Surgical History: Reports: Hx Abdominal Surgery, Hx Appendectomy, Hx Cholecystectomy, Hx Orthopedic Surgery - fractured finger - Immunizations Immunizations up to date: Yes Hx Diphtheria, Pertussis, Tetanus Vaccination: Yes - 2012 Hx Pneumococcal Vaccination: 08/23/00 Review of Systems - Review of Systems Constitutional: denies: Chills, Fever EENT: No symptoms reported Cardiovascular: denies: Chest pain, Palpitations, Heart racing, Orthopnea, Syncope, Dizziness, Lightheaded, Edema Respiratory: See HPI, Cough, Short of breath, Wheezing Gastrointestinal: denies: Abdominal pain, Diarrhea, Nausea, Vomiting Genitourinary: No symptoms reported Musculoskeletal: No symptoms reported Skin: No symptoms reported Neurological/Psychological: No symptoms reported -: Yes All other systems reviewed and negative Physical Exam - Vital signs Vitals: Temp Pulse Resp BP Pulse Ox 98.4 F 64 16 116/78 92 06/03/19 06:57 06/03/19 06:57 06/03/19 06:57 06/03/19 06:57 06/03/19 06:57 Interpretation: Normal - General General appearance: Appears well, Alert In distress: None - HEENT Head: Normocephalic, Atraumatic Eyes: Normal Pupils: PERRL Pharynx: Normal. No: Potential airway comprom. Neck: Normal, Supple. No: Lymphadenopathy, Meningismus - Respiratory Respiratory status: No respiratory distress. No: Labored, Retractions, Tachypnea, Tripod position Chest status: Nontender Breath sounds: Wheezing - Diffuse expiratory wheezing. No accessory muscle use. No respiratory distress. Can speak in full sentences. Occasional dry cough. No: Rales, Rhonchi, Stridor Chest palpation: Normal - Cardiovascular Rhythm: Regular Heart sounds: Normal auscultation Murmur: No - Abdominal Inspection: Normal Distension: No distension Bowel sounds: Normal Tenderness: Nontender Organomegaly: No organomegaly - Neurological Neuro grossly intact: Yes Cognition: Normal Orientation: AAOx4 [place] Coma Scale Eye Opening: Spontaneous [place] Coma Scale Verbal: Oriented Jasmin Coma Scale Motor: Obeys Commands Jasmin Coma Scale Total: 15 Speech: Normal Cranial nerves: Normal Cerebellar coordination: Normal. 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 No: Plantar flexion Sensory: Normal - Psychological Associated symptoms: Normal mood, Flat affect - Skin Skin Temperature: Warm Skin Moisture: Dry Skin Color: Normal Course - Re-evaluation Re-evalutation: 06/03/19 09:52 Patient has done well in the emergency department. He is received steroids and a breathing treatment. After breathing treatment he has had clearing of his wheezing and he has good breath sounds throughout. We will go ahead and discharge the patient with a prescription for prednisone and have encouraged him to use his albuterol inhaler as well. Patient agrees; encouraged to return if he is worse. - Vital Signs Vital signs: Temp Pulse Resp BP Pulse Ox 98.4 F 64 16 116/78 92 06/03/19 06:57 06/03/19 06:57 06/03/19 06:57 06/03/19 06:57 06/03/19 06:57 Discharge - Discharge Clinical Impression: Wheezing Asthma exacerbation Qualifiers: Asthma severity: mild Asthma persistence: persistent Qualified Code(s): J45.31 - Mild persistent asthma with (acute) exacerbation Condition: Stable Disposition: HOME, SELF-CARE Instructions: Asthma ([facility]) Additional Instructions: complete steroids. use inhaler. push fluids. rest, follow up with primary care. return if worse. Prescriptions: Prednisone [Deltasone 10 mg Tablet] 10 mg PO ASDIR PRN #21 tablet PRN Reason: Referrals: GIANCARLO CHANCE MD [Primary Care Provider] - Follow up as needed
[2019-06-03 10:25] VITALS: BP 105/76
== END 2019-06-03 10:25 | disposition home or self-care (01) ==
LOC: ER 06:44
DX: J45.31 Mild persistent asthma with (acute) exacerbation (principal); Z90.49 Acquired absence of other specified parts of digestive tract
CPT/HCPCS: 94640; 99284; J7512; J7620

== ENCOUNTER 2019-06-03 13:56 | Emergency (ER) | payer MEDICAID ==
[2019-06-03 14:13] VITALS: BP 128/68
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
== END 2019-06-03 14:13 | disposition home or self-care (01) ==
LOC: ER 13:56
DX: S09.90XA Unspecified injury of head, initial encounter (principal); X58.XXXA Exposure to other specified factors, initial encounter; Z90.49 Acquired absence of other specified parts of digestive tract
CPT/HCPCS: 99283

== ENCOUNTER 2019-06-03 22:42 | Emergency (ER) | payer MEDICAID ==
[2019-06-03 23:01] VITALS: BP 137/77
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
== END 2019-06-04 02:00 | disposition home or self-care (01) ==
LOC: ER 22:42
DX: R07.81 Pleurodynia (principal); Z90.49 Acquired absence of other specified parts of digestive tract
CPT/HCPCS: 99283

== ENCOUNTER 2019-06-04 19:15 | Emergency (ER) | payer MEDICAID | END 2019-06-04 20:35 | disposition left against medical advice (07) | LOC: ER 19:15 | DX: Z53.21 Procedure and treatment not carried out due to patient leaving prior to being seen by health care provider (principal) ==

== ENCOUNTER 2019-06-04 21:57 | Emergency (ER) | payer MEDICAID ==
--- NOTE | 2019-06-04 23:15 | ER Document Report ---
ED General - General Stated Complaint: PAIN Time Seen by Provider: 06/04/19 23:14 Primary Care Provider: GIANCARLO CHANCE MD [Primary Care Provider] - Follow up as needed TRAVEL OUTSIDE OF THE [place] IN LAST 30 DAYS: No COUNTRY TRAVELED TO/FROM: [facility] Patient complains to provider of: reflux Notes: 33 y/o presenting to ED for evaluation of what he feels is gastroesophageal reflux he notes that he accidentally ate liquid soap earlier today and it has set off his asthma and his reflux he denies abdominal or chest pain but notes that he feels like he has indigestion no fever or chills he has had a nonproductive cough he denies leg swelling, dyspnea on exertion, orthopnea he has used his inhaler and states that prednisone usually helps his indigestion - Related Data Allergies/Adverse Reactions: No Known Allergies Allergy (Verified 05/22/19 11:33) Past Medical History - Social History Smoking Status: Unknown if Ever Smoked Family History: Reviewed & Not Pertinent Pulmonary Medical History: Reports: Hx Asthma - not on home O2, Hx Bronchitis Endocrine Medical History: Denies: Hx Diabetes Mellitus Type 1, Hx Diabetes Mellitus Type 2 Renal/ Medical History: Denies: Hx Peritoneal Dialysis GI Medical History: Reports: Hx Irritable Bowel - constipation Musculoskeletal Medical History: Reports Hx Arthritis, Reports Hx Musculoskeletal Trauma Psychiatric Medical History: Reports: Hx Anxiety, Hx Bipolar Disorder, Hx Depression, Hx Personality Disorder, Hx Schizoaffective Disorder, Hx Schizophrenia Traumatic Medical History: Reports: Hx Fractures - Finger fracture Past Surgical History: Reports: Hx Abdominal Surgery, Hx Appendectomy, Hx Cholecystectomy, Hx Orthopedic Surgery - fractured finger - Immunizations Immunizations up to date: Yes Hx Diphtheria, Pertussis, Tetanus Vaccination: Yes - 2012 Hx Pneumococcal Vaccination: 08/23/00 Review of Systems - Review of Systems Constitutional: No symptoms reported EENT: No symptoms reported Cardiovascular: No symptoms reported Respiratory: Wheezing Gastrointestinal: Other - indigestion Genitourinary: No symptoms reported Male Genitourinary: No symptoms reported Musculoskeletal: No symptoms reported Skin: No symptoms reported Hematologic/Lymphatic: No symptoms reported Neurological/Psychological: No symptoms reported Physical Exam - Vital signs Vitals: Temp Pulse Resp BP Pulse Ox 98.6 F 100 20 134/71 H 95 06/04/19 22:53 06/04/19 22:53 06/04/19 22:53 06/04/19 22:53 06/04/19 22:53 Interpretation: Normal - General General appearance: Appears well, Alert - HEENT Head: Normocephalic, Atraumatic Eyes: Normal Pupils: PERRL Mucous membranes: Normal Pharynx: Normal Neck: Normal. No: Anterior cervical chain, Posterior cervical chain, Lymphadenopathy - Respiratory Respiratory status: No respiratory distress Chest status: Nontender Breath sounds: Wheezing - mild expiratory Chest palpation: Normal - Cardiovascular Rhythm: Regular Heart sounds: Normal auscultation Murmur: No - Abdominal Inspection: Normal Distension: No distension Bowel sounds: Normal Tenderness: Nontender Organomegaly: No organomegaly - Back Back: Normal, Nontender - Extremities General upper extremity: Normal inspection, Nontender, Normal color, Normal ROM, Normal temperature General lower extremity: Normal inspection, Nontender, Normal color, Normal ROM, Normal temperature, Normal weight bearing. No: Esdras's sign - Neurological Neuro grossly intact: Yes Cognition: Normal Orientation: AAOx4 Jasmin Coma Scale Eye Opening: Spontaneous [place] Coma Scale Verbal: Oriented [place] Coma Scale Motor: Obeys Commands Jasmin Coma Scale Total: 15 Speech: Normal Motor strength normal: LUE, RUE, LLE, RLE Sensory: Normal - Psychological Associated symptoms: Normal affect, Normal mood - Skin Skin Temperature: Warm Skin Moisture: Dry Skin Color: Normal Course - Re-evaluation Re-evalutation: 06/04/19 23:29 well appearing patient w/ mild wheeze and requesting prednisone for his reflux will treat wheezing with prednisone he has his albuterol inhaler here and denies needing a refill recommend against eating soap in the future if possible - Vital Signs Vital signs: Temp Pulse Resp BP Pulse Ox 98.6 F 100 20 134/71 H 95 06/04/19 22:53 06/04/19 22:53 06/04/19 22:53 06/04/19 22:53 06/04/19 22:53 Discharge - Discharge Clinical Impression: Wheezing, Indigestion, Elevated blood pressure reading Condition: Stable Disposition: HOME, SELF-CARE Instructions: Reflux Disease (GERD) ([facility]), Asthma ([facility]) Additional Instructions: follow up with primary care return to the ED with worsening take home medicine as directed Referrals: GIANCARLO CHANCE MD [Primary Care Provider] - Follow up as needed
[2019-06-04] MEDS ORDERED: PREDNISONE 20 MG TABLET PO ONE (23:27)
[2019-06-05] MEDS ORDERED: IPRATROPIUM/ALBUTEROL 0.5-2.5 MG/3 ML AMPUL NEB ONE (00:18)
[2019-06-05] MEDS ORDERED: MAG HYDROX/AL HYDROX/SIMETH SUSP 30 ML UDCUP PO ONE (00:42)
[2019-06-05] MEDS ORDERED: METOCLOPRAMIDE HCL ORAL SOLN 10 MG/10 ML UDCUP PO ONE (00:42)
[2019-06-05] MEDS ORDERED: LIDOCAINE 2% VISCOUS SOLN 20 ML UDCUP PO ONE (00:43)
[2019-06-05 02:18] VITALS: BP 123/71
== END 2019-06-05 02:18 | disposition home or self-care (01) ==
LOC: ER 21:57
DX: J45.909 Unspecified asthma, uncomplicated (principal); Z79.899 Other long term (current) drug therapy; K30 Functional dyspepsia; R03.0 Elevated blood-pressure reading, without diagnosis of hypertension; R05 Cough
CPT/HCPCS: 94640; 99284; J3490; J7512; J7620

== ENCOUNTER 2019-06-09 12:37 | Emergency (ER) | payer MEDICAID ==
[2019-06-09 12:47] VITALS: BP 124/72
[2019-06-09] MEDS ORDERED: ALBUTEROL SULFATE 0.083% NEB 2.5 MG/3 ML AMPUL NEB ONE (13:28)
--- NOTE | 2019-06-09 13:33 | ER Document Report ---
HPI - HPI Patient complains to provider of: medication refill Time Seen by Provider: 06/09/19 13:23 Quality of pain: No pain Context: This 33-year-old male with history of asthma and is very well-known in the emergency department presents today with request for an inhaler. Patient was just here 3 days ago and received an inhaler. He reports he needs an inhaler for back-up. Patient also admits that he was seen by EMS today given a neb tr eatment. I contacted the community [employer] supervisor Shravan Betts and he reports he gave him $3 to go pick up attendant the inhaler. No other complaints such as fever vomiting diarrhea one. Associated Symptoms: None Exacerbated by: Denies Relieved by: Denies Similar symptoms previously: Yes Recently seen / treated by doctor: Yes - REPRODUCTIVE Reproductive: DENIES: : Past Medical History - General Information source: Patient - Social History Smoking Status: Unknown if Ever Smoked Cigarette use (# per day): No Frequency of alcohol use: None Drug Abuse: None Lives with: Homeless Family History: Reviewed & Not Pertinent Pulmonary Medical History: Reports: Hx Asthma - not on home O2, Hx Bronchitis Endocrine Medical History: Denies: Hx Diabetes Mellitus Type 1, Hx Diabetes Mellitus Type 2 Renal/ Medical History: Denies: Hx Peritoneal Dialysis GI Medical History: Reports: Hx Irritable Bowel - constipation Musculoskeletal Medical History: Reports Hx Arthritis, Reports Hx Musculoskeletal Trauma Psychiatric Medical History: Reports: Hx Anxiety, Hx Bipolar Disorder, Hx Depression, Hx Personality Disorder, Hx Schizoaffective Disorder, Hx Schizophrenia Traumatic Medical History: Reports: Hx Fractures - Finger fracture Past Surgical History: Reports: Hx Abdominal Surgery, Hx Appendectomy, Hx Cholecystectomy, Hx Orthopedic Surgery - fractured finger - Immunizations Immunizations up to date: Yes Hx Diphtheria, Pertussis, Tetanus Vaccination: Yes - 2012 Hx Pneumococcal Vaccination: 08/23/00 Vertical Provider Document - CONSTITUTIONAL Agree With Documented VS: Yes Exam Limitations: No Limitations General Appearance: WD/WN, No Apparent Distress - INFECTION CONTROL TRAVEL OUTSIDE OF THE [place] IN LAST 30 DAYS: No - HEENT HEENT: Atraumatic, Normocephalic - NECK Neck: Supple - RESPIRATORY Respiratory: Breath Sounds Normal, No Respiratory Distress. negative: Rhonchi, Wheezing - CARDIOVASCULAR Cardiovascular: Regular Rate, Regular Rhythm - GI/ABDOMEN Gastrointestinal: Abdomen Soft, Abdomen Non-Tender - MUSCULOSKELETAL/EXTREMETIES Musculoskeletal/Extremeties: MAEW, RIGO - NEURO Level of Consciousness: Awake, Alert, Appropriate Motor/Sensory: No Motor Deficit - DERM Integumentary: Warm, Dry Course - Re-evaluation Re-evalutation: 06/09/19 13:47 33-year-old male with history of asthma requesting an inhaler. I contacted the community [employer] supervisor who reports they just gave him a neb treatment earlier today and also provided him with $3 so he could go pick up attendant his inhaler from the pharmacy. Patient was instructed that we would not be giving him an inhaler today. He did become upset wanted to talk to my David. I instructed it is important for him to pick up attendant his inhaler from the pharmacy. I also instructed him to return to the emergency department anytime he was having trouble breathing he verbalized understanding to all instructions. Apparently had discharge going out the door patient became irate with another person. He had to be escorted out the door by security. RR even unlabored, no wheeze, no rhochi Dictation of this chart was performed using voice recognition software; therefore, there may be some unintended grammatical errors. 06/09/19 13:48 - Vital Signs Vital signs: Temp Pulse Resp BP Pulse Ox 98.1 F 95 18 124/72 97 06/09/19 12:46 06/09/19 12:46 06/09/19 12:46 06/09/19 12:46 06/09/19 12:46 Discharge - Discharge Clinical Impression: Medication refill Condition: Stable Disposition: HOME, SELF-CARE Additional Instructions: *You have been evaluated for medication refill * signal supervisor your inhaler from the pharmacy *Follow up with Dr Hayes for evaluation within one week *Use your inhaler as prescribed *Return to ED for worsening condition, changes, needs Referrals: GIANCARLO CHANCE MD [Primary Care Provider] - Follow up in 3-5 days
== END 2019-06-09 13:43 | disposition home or self-care (01) ==
LOC: ER 12:37
DX: Z76.0 Encounter for issue of repeat prescription (principal); J45.909 Unspecified asthma, uncomplicated
CPT/HCPCS: 99281

== ENCOUNTER 2019-06-11 11:39 | Emergency (ER) | payer MEDICAID ==
[2019-06-11 11:50] VITALS: BP 121/96
--- NOTE | 2019-06-11 14:25 | ER Document Report ---
HPI - HPI Patient complains to provider of: cough Time Seen by Provider: 06/11/19 14:01 Onset: Other Pain Level: 2 Context: This 33-year-old male with history of asthma that visits the emergency department frequently presents today with request to get steroids and he is worried that he has pneumonia. Reports he was told he had a fever and he may have pneumonia. Patient frequently comes to the emergency department for an inhaler. He reports he does not need that today he needs steroids. Denies vomiting diarrhea. Reports he is hungry requesting christiane crackers and orange juice. Patient is talking a clear voice no coughing noted. Respiratory rate even unlabored Associated Symptoms: Fever Exacerbated by: Denies Relieved by: Denies Similar symptoms previously: Yes Recently seen / treated by doctor: Yes - REPRODUCTIVE Reproductive: DENIES: : Past Medical History - General Information source: Patient - Social History Smoking Status: Never Smoker Chew tobacco use (# tins/day): No Frequency of alcohol use: None Drug Abuse: None Lives with: Homeless Family History: Reviewed & Not Pertinent Patient has suicidal ideation: No Patient has homicidal ideation: No Pulmonary Medical History: Reports: Hx Asthma - not on home O2, Hx Bronchitis Endocrine Medical History: Denies: Hx Diabetes Mellitus Type 1, Hx Diabetes Mellitus Type 2 Renal/ Medical History: Denies: Hx Peritoneal Dialysis GI Medical History: Reports: Hx Irritable Bowel - constipation Musculoskeletal Medical History: Reports Hx Arthritis, Reports Hx Musculoskeletal Trauma Psychiatric Medical History: Reports: Hx Anxiety, Hx Bipolar Disorder, Hx Depression, Hx Personality Disorder, Hx Schizoaffective Disorder, Hx Schizophrenia Traumatic Medical History: Reports: Hx Fractures - Finger fracture Past Surgical History: Reports: Hx Abdominal Surgery, Hx Appendectomy, Hx Cholecystectomy, Hx Orthopedic Surgery - fractured finger - Immunizations Immunizations up to date: Yes Hx Diphtheria, Pertussis, Tetanus Vaccination: Yes - 2012 Hx Pneumococcal Vaccination: 08/23/00 Vertical Provider Document - CONSTITUTIONAL Agree With Documented VS: Yes Exam Limitations: No Limitations General Appearance: WD/WN, No Apparent Distress - INFECTION CONTROL TRAVEL OUTSIDE OF THE [place] IN LAST 30 DAYS: No - HEENT HEENT: Atraumatic, Normal ENT Exam, Normocephalic. negative: Conjuctival Injection, Pharyngeal Erythema, Tympanic Membrane Red - NECK Neck: Normal Inspection, Supple. negative: Lymphadenopathy-Left, Lymphadenopathy-Right - RESPIRATORY Respiratory: Breath Sounds Normal, No Respiratory Distress. negative: Rhonchi, Wheezing - CARDIOVASCULAR Cardiovascular: Regular Rate, Regular Rhythm - GI/ABDOMEN Gastrointestinal: Abdomen Soft, Abdomen Non-Tender - NEURO Level of Consciousness: Awake, Alert, Appropriate Motor/Sensory: No Motor Deficit - DERM Integumentary: Warm, Dry Course - Re-evaluation Re-evalutation: 06/11/19 14:23 This 33-year-old male with history of asthma and bronchitis presents emergency department requesting steroids in worried that he has pneumonia. Mr. Huddleston is a frequent patient to this emergency department. He usually comes in requesting an inhaler. Today he reports he does not need an inhaler. He reports he needs steroids. Reports he coughed at home. Denies fever and vomiting. Respiratory rate is even unlabored no rhonchi no wheeze noted. Chest x-ray ordered. Patient was provided with christiane crackers and orange juice. 06/11/19 14:56 Chest X-Ray 06/11/19 14:21 IMPRESSION: NO ACUTE RADIOGRAPHIC FINDING IN THE CHEST. Chest x-ray negative. Patient instructed on the importance of following up with his primary care in a week for recheck. - Vital Signs Vital signs: Temp Pulse Resp BP Pulse Ox 99.4 F 73 20 121/96 H 94 06/11/19 11:47 06/11/19 11:47 06/11/19 11:47 06/11/19 11:47 06/11/19 11:47 - Diagnostic Test Radiology reviewed: Reports reviewed Discharge - Discharge Clinical Impression: Cough Condition: Stable Disposition: HOME, SELF-CARE Additional Instructions: *You have been evaluated for a cough, history of asthma *Increase fluid intake as discussed *Use your inhaler as prescribed *Monitor your temperature, take Tylenol as indicated *Follow up with a primary care provider within one week *Return to ED for worsening condition, changes, needs Referrals: GIANCARLO CHANCE MD [Primary Care Provider] - Follow up in 1 week
--- NOTE | 2019-06-11 14:44 | RADIOLOGY REPORT (SQ) ---
EXAM DESCRIPTION: CHEST 2 VIEWS COMPLETED DATE/TIME: 06/11/2019 2:35 pm REASON FOR STUDY: cough COMPARISON: AP chest 04/27/2019 EXAM PARAMETERS: NUMBER OF VIEWS: two views TECHNIQUE: Digital Frontal and Lateral radiographic views of the chest acquired. RADIATION DOSE: NA LIMITATIONS: none FINDINGS: LUNGS AND PLEURA: No opacities, masses or pneumothorax. No pleural effusion. MEDIASTINUM AND HILAR STRUCTURES: No masses or contour abnormalities. HEART AND VASCULAR STRUCTURES: Heart normal size. No evidence for failure. BONES: No acute findings. HARDWARE: None in the chest. OTHER: No other significant finding. IMPRESSION: NO ACUTE RADIOGRAPHIC FINDING IN THE CHEST. TECHNICAL DOCUMENTATION: JOB ID: [id number] Help/Systems- All Rights Reserved Reading location - IP/workstation name: [email or web address]
== END 2019-06-11 14:59 | disposition home or self-care (01) ==
LOC: ER 11:39
DX: R05 Cough (principal); R50.9 Fever, unspecified; Z90.49 Acquired absence of other specified parts of digestive tract
CPT/HCPCS: 71046; 99283

== ENCOUNTER 2019-06-12 13:34 | Emergency (ER) | payer MEDICAID ==
--- NOTE | 2019-06-12 13:54 | ER Document Report ---
ED Medical Screen (RME) - General Chief Complaint: Medication Refill Stated Complaint: BREATHING PROBLEMS Time Seen by Provider: 06/12/19 13:53 Primary Care Provider: GIANCARLO CHANCE MD [Primary Care Provider] - Follow up as needed Mode of Arrival: Ambulatory Information source: Patient Notes: 33-year-old male presents to ED for an inability to refill his medication prescription this is about the 20th visit last 2 months. He states he is not able to get his asthma pump is why he continues to come to the emergency room. He states he does not have the $3 co-pay to pay for the medication that is prescribed.. He states that he has a person called Jared Betts that is supposed to come to his house and help to pay for his medicines and he has not shown up. He states he does not smoke drink or use any drugs. He is taken medicine for 2 days. He states he got his prescription from the pharmacist but is not able to pay for it. I have greeted and performed a rapid initial assessment of this patient. A comprehensive ED assessment and evaluation of the patient, analysis of test results and completion of medical decision making process will be conducted by an additional ED providers. TRAVEL OUTSIDE OF THE [place] IN LAST 30 DAYS: No - Related Data Allergies/Adverse Reactions: No Known Allergies Allergy (Verified 06/09/19 13:24) Past Medical History - Social History Family history: Reviewed & Not Pertinent Pulmonary Medical History: Reports: Hx Asthma - not on home O2, Hx Bronchitis Endocrine Medical History: Denies: Hx Diabetes Mellitus Type 1, Hx Diabetes Mellitus Type 2 Renal/ Medical History: Denies: Hx Peritoneal Dialysis GI Medical History: Reports: Hx Irritable Bowel - constipation Musculoskeltal Medical History: Reports Hx Arthritis, Reports Hx Musculoskeletal Trauma Psychiatric Medical History: Reports: Hx Anxiety, Hx Bipolar Disorder, Hx Depression, Hx Personality Disorder, Hx Schizoaffective Disorder, Hx Schizophrenia Traumatic Medical History: Reports: Hx Fractures - Finger fracture Past Surgical History: Reports: Hx Abdominal Surgery, Hx Appendectomy, Hx Cholecystectomy, Hx Orthopedic Surgery - fractured finger - Immunizations Immunizations up to date: Yes Hx Diphtheria, Pertussis, Tetanus Vaccination: Yes - 2012 Doctor's Discharge - Discharge Referrals: GIANCARLO CHANCE MD [Primary Care Provider] - Follow up as needed
[2019-06-12 14:03] VITALS: BP 132/78
[2019-06-12] MEDS ORDERED: ALBUTEROL SULFATE 0.083% NEB 2.5 MG/3 ML AMPUL NEB ONE (14:10)
--- NOTE | 2019-06-12 15:17 | ER Document Report ---
HPI - HPI Time Seen by Provider: 06/12/19 13:53 Pain Level: Denies Context: Patient is a 33-year-old male who presents the emergency department with a chief complaint of difficulty breathing. Patient is a known asthmatic and has been treated multiple times here in the emergency department for his asthma. Patient states that he is supposed to be on inhaled corticosteroids, but he does not have a $3 co-pay. - CONSTITUTIONAL Constitutional: DENIES: Fever, Chills - EENT EENT: DENIES: Sore Throat, Ear Pain, Nasal Drainage-Clear, Congestion, Eye problems - NEURO Neurology: DENIES: Headache, Weakness, Vision blurred - CARDIOVASCULAR Cardiovascular: DENIES: Chest pain - RESPIRATORY Respiratory: REPORTS: Trouble Breathing, Coughing - GASTROINTESTINAL Gastrointestinal: DENIES: Abdominal Pain, Nausea, Patient vomiting - REPRODUCTIVE Reproductive: DENIES: : - MUSCULOSKELETAL Musculoskeletal: DENIES: Extremity pain, Back Pain - DERM Skin Color: Normal Skin Problems: None Past Medical History - General Information source: Patient - Social History Smoking Status: Never Smoker Family History: Reviewed & Not Pertinent Patient has suicidal ideation: No Patient has homicidal ideation: No Pulmonary Medical History: Reports: Hx Asthma - not on home O2, Hx Bronchitis Endocrine Medical History: Denies: Hx Diabetes Mellitus Type 1, Hx Diabetes Mellitus Type 2 Renal/ Medical History: Denies: Hx Peritoneal Dialysis GI Medical History: Reports: Hx Irritable Bowel - constipation Musculoskeletal Medical History: Reports Hx Arthritis, Reports Hx Musculoskeletal Trauma Psychiatric Medical History: Reports: Hx Anxiety, Hx Bipolar Disorder, Hx Depression, Hx Personality Disorder, Hx Schizoaffective Disorder, Hx Schizophrenia Traumatic Medical History: Reports: Hx Fractures - Finger fracture Past Surgical History: Reports: Hx Abdominal Surgery, Hx Appendectomy, Hx Cholecystectomy, Hx Orthopedic Surgery - fractured finger - Immunizations Immunizations up to date: Yes Hx Diphtheria, Pertussis, Tetanus Vaccination: Yes - 2012 Hx Pneumococcal Vaccination: 08/23/00 Vertical Provider Document - CONSTITUTIONAL Agree With Documented VS: Yes Exam Limitations: No Limitations General Appearance: No Apparent Distress - INFECTION CONTROL TRAVEL OUTSIDE OF THE [place] IN LAST 30 DAYS: No - HEENT HEENT: Atraumatic, Normocephalic, PERRLA. negative: Pharyngeal Exudate, Pharyngeal Tenderness, Pharyngeal Erythema, Tympanic Membrane Red, Tympanic Membrane Bulging - NECK Neck: Normal Inspection - RESPIRATORY Respiratory: Breath Sounds Normal, No Respiratory Distress - CARDIOVASCULAR Pulses: Normal: Radial - MUSCULOSKELETAL/EXTREMETIES Musculoskeletal/Extremeties: FROM - NEURO Level of Consciousness: Awake, Alert, Appropriate Motor/Sensory: No Motor Deficit, No Sensory Deficit - DERM Integumentary: Warm, Dry, No Rash Course - Re-evaluation Re-evalutation: 06/12/19 Patient's breath sounds are clear after receiving an albuterol nebulizer in triage. Patient states that he can breathe better. Patient was given money so he can afford his inhaled corticosteroids. Advised the patient to follow-up with PCM. He is in agreement with this plan. Follow-up precautions were given. Verbal discharge instructions were given to the patient. They verbalized understanding. They are stable for discharge. - Vital Signs Vital signs: Temp Pulse Resp BP Pulse Ox 98.3 F 65 18 132/78 H 92 06/12/19 13:57 06/12/19 13:57 06/12/19 13:57 06/12/19 13:57 06/12/19 13:57 Discharge - Discharge Clinical Impression: Asthma exacerbation Qualifiers: Asthma severity: mild Asthma persistence: intermittent Qualified Code(s): J45.21 - Mild intermittent asthma with (acute) exacerbation Condition: Stable Disposition: HOME, SELF-CARE Additional Instructions: You were seen today in the emergency department for shortness of breath and difficulty breathing. Your symptoms have improved with a breathing treatment here in the emergency department. Please get your steroid asthma pump. You were given money here so you can afford it. Go to [facility] immediately after this visit and get your medication. Referrals: GIANCARLO CHANCE MD [Primary Care Provider] - Follow up in 3-5 days
== END 2019-06-12 15:01 | disposition home or self-care (01) ==
LOC: ER 13:34
DX: J45.21 Mild intermittent asthma with (acute) exacerbation (principal); T38.0X6A Underdosing of glucocorticoids and synthetic analogues, initial encounter; Z91.120 Patient's intentional underdosing of medication regimen due to financial hardship; Z91.14 Patient's other noncompliance with medication regimen; R05 Cough
CPT/HCPCS: 94640; 99284

== ENCOUNTER 2019-06-14 15:23 | Emergency (ER) | payer MEDICAID ==
[2019-06-14 15:49] VITALS: BP 123/72
--- NOTE | 2019-06-14 16:44 | ER Document Report ---
ED Medical Screen (RME) - General Stated Complaint: HEAD AND NECK PAIN Time Seen by Provider: 06/14/19 16:40 Primary Care Provider: GIANCARLO CHANCE MD [Primary Care Provider] - Follow up as needed Information source: Patient Notes: Patient reports spraining his steroid inhaler accidentally in the left eye. Patient states he immediately rinsed his eye out. Patient called poison control who told him that it was not anything life-threatening. Patient was unable to follow-up with his primary doctor. Patient is requesting fluorscein examination of the eye to evaluate for any scratch. I have greeted and performed a rapid initial assessment of this patient. A comprehensive ED assessment and evaluation of the patient, analysis of test results and completion of the medical decision making process will be conducted by additional ED providers. TRAVEL OUTSIDE OF THE [place] IN LAST 30 DAYS: No - Related Data Allergies/Adverse Reactions: No Known Allergies Allergy (Verified 06/14/19 16:38) Past Medical History - Social History Family history: Reviewed & Not Pertinent Pulmonary Medical History: Reports: Hx Asthma - not on home O2, Hx Bronchitis Endocrine Medical History: Denies: Hx Diabetes Mellitus Type 1, Hx Diabetes Mellitus Type 2 Renal/ Medical History: Denies: Hx Peritoneal Dialysis GI Medical History: Reports: Hx Irritable Bowel - constipation Musculoskeltal Medical History: Reports Hx Arthritis, Reports Hx Musculoskeletal Trauma Psychiatric Medical History: Reports: Hx Anxiety, Hx Bipolar Disorder, Hx Depression, Hx Personality Disorder, Hx Schizoaffective Disorder, Hx Schizophrenia Traumatic Medical History: Reports: Hx Fractures - Finger fracture Past Surgical History: Reports: Hx Abdominal Surgery, Hx Appendectomy, Hx Cholecystectomy, Hx Orthopedic Surgery - fractured finger - Immunizations Immunizations up to date: Yes Hx Diphtheria, Pertussis, Tetanus Vaccination: Yes - 2012 Physical Exam - Vital signs Vitals: Temp Pulse Resp BP Pulse Ox 98.8 F 82 18 123/72 96 06/14/19 15:48 06/14/19 15:48 06/14/19 15:48 06/14/19 15:48 06/14/19 15:48 - General General appearance: Appears well, Alert In distress: None Notes: Left eye sclera clear, no tearing Course - Vital Signs Vital signs: Temp Pulse Resp BP Pulse Ox 98.8 F 82 18 123/72 96 06/14/19 15:48 06/14/19 15:48 06/14/19 15:48 06/14/19 15:48 06/14/19 15:48 Doctor's Discharge - Discharge Referrals: GIANCARLO CHANCE MD [Primary Care Provider] - Follow up as needed
== END 2019-06-14 18:25 | disposition left against medical advice (07) ==
LOC: ER 15:23
DX: R51 Headache (principal); M54.2 Cervicalgia; J45.909 Unspecified asthma, uncomplicated; Z79.51 Long term (current) use of inhaled steroids; Z53.20 Procedure and treatment not carried out because of patient's decision for unspecified reasons
CPT/HCPCS: 99281

== ENCOUNTER 2019-06-20 23:00 | Emergency (ER) | payer MEDICAID ==
[2019-06-20 23:10] VITALS: BP 143/80
--- NOTE | 2019-06-21 02:12 | ER Document Report ---
HPI - HPI Time Seen by Provider: 06/21/19 02:05 Pain Level: Denies Context: Patient is a 33-year-old male with a history of asthma and schizophrenia that comes to the emergency department for chief complaint of wanting an area just underneath his left jaw and on the left neck checked. He states it was hurting but it stopped hurting, he states it is barely swollen, he states he just wants to know what it is. He denies sore throat, dental pain, neck pain, fever/chi lls, or any other current symptoms. He denies any other complaints. - REPRODUCTIVE Reproductive: DENIES: : Past Medical History - General Information source: Patient - Social History Smoking Status: Never Smoker Frequency of alcohol use: None Drug Abuse: None Lives with: Alone Family History: Reviewed & Not Pertinent Patient has suicidal ideation: No Patient has homicidal ideation: No Pulmonary Medical History: Reports: Hx Asthma - not on home O2, Hx Bronchitis Endocrine Medical History: Denies: Hx Diabetes Mellitus Type 1, Hx Diabetes Mellitus Type 2 Renal/ Medical History: Denies: Hx Peritoneal Dialysis GI Medical History: Reports: Hx Irritable Bowel - constipation Musculoskeletal Medical History: Reports Hx Arthritis, Reports Hx Musculoskeletal Trauma Psychiatric Medical History: Reports: Hx Anxiety, Hx Bipolar Disorder, Hx Depression, Hx Personality Disorder, Hx Schizoaffective Disorder, Hx Schizophrenia Traumatic Medical History: Reports: Hx Fractures - Finger fracture Past Surgical History: Reports: Hx Abdominal Surgery, Hx Appendectomy, Hx Cholecystectomy, Hx Orthopedic Surgery - fractured finger - Immunizations Immunizations up to date: Yes Hx Diphtheria, Pertussis, Tetanus Vaccination: Yes - 2012 Hx Pneumococcal Vaccination: 08/23/00 Vertical Provider Document - CONSTITUTIONAL General Appearance: WD/WN, No Apparent Distress - INFECTION CONTROL TRAVEL OUTSIDE OF THE [place] IN LAST 30 DAYS: No - HEENT HEENT: Atraumatic, Normal ENT Exam, Normocephalic, PERRLA. negative: Pharyngeal Exudate, Pharyngeal Tenderness, Pharyngeal Erythema, Tympanic Membrane Red, Tympanic Membrane Bulging - NECK Neck: negative: Normal Inspection - There is very mild swelling of a single lymph node in the left anterior cervical area without notable tenderness, erythema, or other concerning findings. - RESPIRATORY Respiratory: Breath Sounds Normal, No Respiratory Distress - CARDIOVASCULAR Cardiovascular: Regular Rate, Regular Rhythm - GI/ABDOMEN Gastrointestinal: Abdomen Soft, Abdomen Non-Tender - BACK Back: Normal Inspection - MUSCULOSKELETAL/EXTREMETIES Musculoskeletal/Extremeties: MAEW, FROM, Non-Tender - NEURO Level of Consciousness: Awake, Alert, Appropriate Motor/Sensory: No Motor Deficit, No Sensory Deficit - DERM Integumentary: Warm, Dry, No Rash Course - Re-evaluation Re-evalutation: The area in question appears to be a small isolated lymph node which is not severely swollen or tender. Oropharyngeal exam unremarkable, lungs clear, patient well-appearing and smiling. He has no other complaints, he expresses gratefulness for evaluation, he states he is ready to leave. Stable at time of discharge. - Vital Signs Vital signs: Temp Pulse Resp BP Pulse Ox 98.4 F 74 20 143/80 H 99 06/20/19 23:08 06/20/19 23:08 06/20/19 23:08 06/20/19 23:08 06/20/19 23:08 Discharge - Discharge Clinical Impression: Anterior cervical adenopathy Condition: Stable Disposition: HOME, SELF-CARE Additional Instructions: The area you were asking about is a small lymph node. This is normal and it will go away with time. Follow-up with primary care. Come back if you are worse including difficulty swallowing or breathing, fevers, or any other concerning or worsening symptoms. Referrals: GIANCARLO CHANCE MD [Primary Care Provider] - Follow up as needed
== END 2019-06-21 02:40 | disposition home or self-care (01) ==
LOC: ER 23:00
DX: R59.0 Localized enlarged lymph nodes (principal); Z90.49 Acquired absence of other specified parts of digestive tract
CPT/HCPCS: 99282

== ENCOUNTER 2019-06-21 17:54 | Emergency (ER) | payer MEDICAID ==
--- NOTE | 2019-06-21 18:40 | ER Document Report ---
ED Medical Screen (RME) - General Chief Complaint: Breathing Difficulty Stated Complaint: DIFFICULTY BREATHING Time Seen by Provider: 06/21/19 18:34 Primary Care Provider: GIANCARLO CHANCE MD [Primary Care Provider] - Follow up as needed Mode of Arrival: Ambulatory Information source: Patient Notes: This 33-year-old male with history of asthma presents emergency department with reports that he chipped his tooth and now is worried that it will cut his insides. No other complaints such as difficulty breathing fever vomiting diarrhea. I have greeted and performed a rapid initial assessment of this patient. A comprehensive ED assessment and evaluation of the patient, analysis of test results and completion of the medical decision making process will be conducted by additional ED providers. Dictation of this chart was performed using voice recognition software; therefore, there may be some unintended grammatical errors. TRAVEL OUTSIDE OF THE [place] IN LAST 30 DAYS: No - Related Data Allergies/Adverse Reactions: No Known Allergies Allergy (Verified 06/14/19 16:38) Past Medical History - Social History Chew tobacco use (# tins/day): No Frequency of alcohol use: None Drug Abuse: None Family history: Reviewed & Not Pertinent Pulmonary Medical History: Reports: Hx Asthma - not on home O2, Hx Bronchitis Endocrine Medical History: Denies: Hx Diabetes Mellitus Type 1, Hx Diabetes Mellitus Type 2 Renal/ Medical History: Denies: Hx Peritoneal Dialysis GI Medical History: Reports: Hx Irritable Bowel - constipation Musculoskeltal Medical History: Reports Hx Arthritis, Reports Hx Musculoskeletal Trauma Psychiatric Medical History: Reports: Hx Anxiety, Hx Bipolar Disorder, Hx Depression, Hx Personality Disorder, Hx Schizoaffective Disorder, Hx Schizophrenia Traumatic Medical History: Reports: Hx Fractures - Finger fracture Past Surgical History: Reports: Hx Abdominal Surgery, Hx Appendectomy, Hx Cholecystectomy, Hx Orthopedic Surgery - fractured finger - Immunizations Immunizations up to date: Yes Hx Diphtheria, Pertussis, Tetanus Vaccination: Yes - 2012 Doctor's Discharge - Discharge Referrals: GIANCARLO CHANCE MD [Primary Care Provider] - Follow up as needed
[2019-06-21] MEDS ORDERED: NORMAL SALINE 1000 ML 1,000 ML IV PRN (19:07)
--- NOTE | 2019-06-21 19:10 | ER Document Report ---
ED General - General Chief Complaint: Dental Injury Stated Complaint: DIFFICULTY BREATHING Time Seen by Provider: 06/21/19 18:34 Primary Care Provider: GIANCARLO CHANCE MD [Primary Care Provider] - Follow up as needed Mode of Arrival: Ambulatory Information source: Patient Notes: 33-year-old male presented to ED for complaint of chipped tooth. He is alert oriented respirations regular nonlabored speaking in full sentences. He was very concerned that this piece of chipped tooth get into his intestines. TRAVEL OUTSIDE OF THE [place] IN LAST 30 DAYS: No - HPI Onset: Just prior to arrival Onset/Duration: Better Quality of pain: No pain, Achy Severity: None Pain Level: Denies Associated symptoms: Other - Dental problem Exacerbated by: Denies Relieved by: Denies Similar symptoms previously: Yes Recently seen / treated by doctor: Yes - Related Data Allergies/Adverse Reactions: No Known Allergies Allergy (Verified 06/14/19 16:38) Past Medical History - General Information source: Patient - Social History Smoking Status: Never Smoker Chew tobacco use (# tins/day): No Frequency of alcohol use: None Drug Abuse: None Lives with: Family Family History: Reviewed & Not Pertinent Patient has suicidal ideation: No Patient has homicidal ideation: No - Past Medical History Cardiac Medical History: Reports: None Pulmonary Medical History: Reports: Hx Asthma - not on home O2, Hx Bronchitis EENT Medical History: Reports: None Neurological Medical History: Reports: None Endocrine Medical History: Reports: None Renal/ Medical History: Reports: None Malignancy Medical History: Reports None GI Medical History: Reports: Hx Irritable Bowel - constipation Musculoskeletal Medical History: Reports Hx Arthritis, Reports Hx Musculoskeletal Trauma Skin Medical History: Reports None Psychiatric Medical History: Reports: Hx Anxiety, Hx Bipolar Disorder, Hx Depres zeynep, Hx Personality Disorder, Hx Schizoaffective Disorder, Hx Schizophrenia Traumatic Medical History: Reports: Hx Fractures - Finger fracture Infectious Medical History: Reports: None Past Surgical History: Reports: Hx Abdominal Surgery, Hx Appendectomy, Hx Cholecystectomy, Hx Orthopedic Surgery - fractured finger - Immunizations Immunizations up to date: Yes Hx Diphtheria, Pertussis, Tetanus Vaccination: Yes - 2012 Hx Pneumococcal Vaccination: 08/23/00 Review of Systems - Review of Systems Constitutional: No symptoms reported EENT: Dental problem Cardiovascular: No symptoms reported Respiratory: No symptoms reported Gastrointestinal: No symptoms reported Genitourinary: No symptoms reported Male Genitourinary: No symptoms reported Musculoskeletal: No symptoms reported Hematologic/Lymphatic: No symptoms reported Neurological/Psychological: No symptoms reported -: Yes All other systems reviewed and negative Physical Exam - Vital signs Vitals: Temp Pulse Resp BP Pulse Ox 98.0 F 134 H 16 132/66 H 92 06/21/19 18:38 06/21/19 18:38 06/21/19 18:38 06/21/19 18:38 06/21/19 18:38 Interpretation: Normal - General General appearance: Appears well, Alert - HEENT Head: Normocephalic, Atraumatic Eyes: Normal Pupils: PERRL Ears: Normal External canal: Normal Tympanic membrane: Normal Sinus: Normal Nasal: Normal Mouth/Lips: Caries Teeth diagram: 1 - Chipped tooth Pharynx: Normal Neck: Normal - Respiratory Respiratory status: No respiratory distress Chest status: Nontender Breath sounds: Normal Chest palpation: Normal - Cardiovascular Rhythm: Regular Heart sounds: Normal auscultation Murmur: No - Abdominal Inspection: Normal Distension: No distension Bowel sounds: Normal Tenderness: Nontender Organomegaly: No organomegaly - Back Back: Normal, Nontender - Extremities General upper extremity: Normal inspection, Nontender, Normal color, Normal ROM, Normal temperature General lower extremity: Normal inspection, Nontender, Normal color, Normal ROM, Normal temperature, Normal weight bearing. No: Esdras's sign - Neurological Neuro grossly intact: Yes Cognition: Normal Orientation: AAOx4 Jasmin Coma Scale Eye Opening: Spontaneous [place] Coma Scale Verbal: Oriented Jasmin Coma Scale Motor: Obeys Commands [place] Coma Scale Total: 15 Speech: Normal Motor strength normal: LUE, RUE, LLE, RLE Sensory: Normal - Psychological Associated symptoms: Normal affect, Normal mood - Skin Skin Temperature: Warm Skin Moisture: Dry Skin Color: Normal Course - Re-evaluation Re-evalutation: 06/21/19 19:45 Discussed the protocol for a swallow part of her tooth. It was a very small chip. There is no risk for this. Patient has been told to go ahead and eat and drink like he normally would and a piece of tooth would come out of his rectum with his other waist. Patient was instructed to follow-up with a dentist to have the rest of the tooth removed. Patient verbalized understanding and agreement with treatment plan - Vital Signs Vital signs: Temp Pulse Resp BP Pulse Ox 98.9 F 73 18 121/70 99 06/21/19 19:51 06/21/19 19:51 06/21/19 19:51 06/21/19 19:51 06/21/19 19:51 Discharge - Discharge Clinical Impression: Chipped tooth Qualifiers: Encounter type: initial encounter Fracture type: closed Qualified Code(s): S02.5XXA - Fracture of tooth (traumatic), initial encounter for closed fracture Condition: Stable Disposition: HOME, SELF-CARE Instructions: Dentist Additional Instructions: You were seen today for a chipped tooth. Acetaminophen Acetaminophen may be taken for pain relief or fever control. It's much safer than aspirin, offering a wider range of "safe" dosages. It is safe during . Some brand names are Tylenol, Panadol, Datril, Anacin 3, Tempra, and Liquiprin. Acetaminophen can be repeated every four hours. The following are maximum recommended dosages: WEIGHT Dose Drops Elixir Chewable(80mg) (LBS.) drprs=droppers tsp=teaspoon 6 40 mg .4 ml (1/2) 6-11 80 mg .8 ml (full) 1/2 tsp 1 tab 12-16 120 mg 1 1/2 drprs 3/4 tsp 1 1/2 tabs 17-23 160 mg 2 drprs 1 tsp 2 tabs 24-30 240 mg 3 drprs 1 1/2 tsp 3 tabs 30-35 320 mg 2 tsp 4 tabs 36-41 360 mg 2 1/4 tsp 4 1/2 tabs 42-47 400 mg 2 1/2 tsp 5 tabs 48-53 480 mg 3 tsp 6 tabs 54-59 520 mg 3 1/4 tsp 6 1/2 tabs 60-64 560 mg 3 1/2 tsp 7 tabs 65-70 600 mg 3 3/4 tsp 7 1/2 tabs 71-76 640 mg 4 tsp 8 tabs 77-82 720 mg 4 1/2 tsp 9 tabs 83-88 800 mg 5 tsp 10 tabs >89 pounds or adults 650 mg to 900 mg Acetaminophen can be repeated every four hours. Maximum daily dose not to exceed 4000 mg. These maximum recommended dosages are slightly higher than the dosages written on the product container, but these dosages are very safe and well below the toxic dosage for acetaminophen. Ibuprofen Ibuprofen is an excellent, safe drug for pain control. In addition, it has potent antiinflammatory effects which are beneficial, especially in the treatment of injuries, arthritis, or tendonitis. It's best to take ibuprofen with food. Persons with ulcer disease or allergy to aspirin should notify their physician of this before taking ibuprofen. Take the medication exactly as prescribed. Don't take additional doses unless instructed to do so by your doctor. If you develop wheezing, shortness of breath, hives, faintness, stomach pain, vomiting, or dark black stools, return for re-evaluation at once. FOLLOW-UP CARE: If you have been referred to a physician for follow-up care, call the physicians office for an appointment as you were instructed or within the next two days. If you experience worsening or a significant change in your symptoms, notify the physician immediately or return to the Emergency Department at any time for re-evaluation. Referrals: GIANCARLO CHANCE MD [Primary Care Provider] - Follow up as needed
[2019-06-21 19:54] VITALS: BP 121/70
== END 2019-06-21 19:50 | disposition home or self-care (01) ==
LOC: ER 17:54
DX: S02.5XXA Fracture of tooth (traumatic), initial encounter for closed fracture (principal); X58.XXXA Exposure to other specified factors, initial encounter; J45.909 Unspecified asthma, uncomplicated; E11.9 Type 2 diabetes mellitus without complications
CPT/HCPCS: 99282

== ENCOUNTER 2019-06-22 05:18 | Emergency (ER) | payer MEDICAID ==
--- NOTE | 2019-06-22 09:37 | ER Document Report ---
ED General - General Chief Complaint: Nausea Stated Complaint: NAUSEA Time Seen by Provider: 06/22/19 09:06 Primary Care Provider: GIANCARLO CHANCE MD [Primary Care Provider] - Follow up as needed TRAVEL OUTSIDE OF THE [place] IN LAST 30 DAYS: No - HPI Notes: Patient presents concerned that he cracked his lower jaw right sided second molar yesterday and swallowed a piece of his tooth. He states that he swallowed it while eating did not inhale it. He came in because he is concerned that it may put a hole in his stomach or his intestine. He has not had any abdominal pain. He states that he has a dentistry appointment today due to the cracked tooth. No recent fevers or illnesses. - Related Data Allergies/Adverse Reactions: No Known Allergies Allergy (Verified 06/22/19 07:53) Home Medications: ZOFRAN Past Medical History - Social History Smoking Status: Never Smoker Family History: Reviewed & Not Pertinent Patient has suicidal ideation: No Patient has homicidal ideation: No Pulmonary Medical History: Reports: Hx Asthma - not on home O2, Hx Bronchitis Endocrine Medical History: Reports: Hx Diabetes Mellitus Type 2. Denies: Hx Diabetes Mellitus Type 1 Renal/ Medical History: Denies: Hx Peritoneal Dialysis GI Medical History: Reports: Hx Irritable Bowel - constipation Musculoskeletal Medical History: Reports Hx Arthritis, Reports Hx Musculoskeletal Trauma Psychiatric Medical History: Reports: Hx Anxiety, Hx Bipolar Disorder, Hx Depression, Hx Personality Disorder, Hx Schizoaffective Disorder, Hx Schizophrenia Traumatic Medical History: Reports: Hx Fractures - Finger fracture Past Surgical History: Reports: Hx Abdominal Surgery, Hx Appendectomy, Hx Cholecystectomy, Hx Orthopedic Surgery - fractured finger - Immunizations Immunizations up to date: Yes Hx Diphtheria, Pertussis, Tetanus Vaccination: Yes - 2012 Hx Pneumococcal Vaccination: 08/23/00 Review of Systems - Review of Systems Constitutional: No symptoms reported EENT: See HPI Cardiovascular: No symptoms reported Respiratory: No symptoms reported Gastrointestinal: No symptoms reported Genitourinary: No symptoms reported Male Genitourinary: No symptoms reported Musculoskeletal: No symptoms reported Skin: No symptoms reported Hematologic/Lymphatic: No symptoms reported Neurological/Psychological: No symptoms reported Physical Exam - Vital signs Vitals: Temp Pulse Resp BP Pulse Ox 97.5 F 58 L 16 119/64 100 06/22/19 07:56 06/22/19 07:56 06/22/19 07:56 06/22/19 07:56 06/22/19 07:56 - General General appearance: Appears well, Alert - HEENT Head: Normocephalic Eyes: Normal Conjunctiva: Normal Extraocular movements intact: Yes Pupils: PERRL Teeth diagram: 1 - Medial aspect of this molar has small avulsion with no polyp visualized - Respiratory Respiratory status: No respiratory distress Chest status: Nontender Breath sounds: Normal - Cardiovascular Rhythm: Regular Heart sounds: Normal auscultation Murmur: No Course - Re-evaluation Re-evalutation: 06/22/19 09:39 I explained to the patient that a small avulsion of his tooth will not perforated stomach or intestine. He will vacated out. He has dentistry follow- up today per his story. No signs of infection. Return precautions provided - Vital Signs Vital signs: Temp Pulse Resp BP Pulse Ox 97.5 F 58 L 16 119/64 100 06/22/19 07:56 06/22/19 07:56 06/22/19 07:56 06/22/19 07:56 06/22/19 07:56 Discharge - Discharge Clinical Impression: Fracture, avulsion, tooth Qualifiers: Encounter type: initial encounter Fracture type: closed Qualified Code(s): S02.5XXA - Fracture of tooth (traumatic), initial encounter for closed fracture Condition: Good Disposition: HOME, SELF-CARE Instructions: Avulsed Tooth ([facility]) Additional Instructions: Please follow-up with your dentistry as soon as possible. Referrals: GIANCARLO CHANCE MD [Primary Care Provider] - Follow up as needed
[2019-06-22 09:59] VITALS: BP 115/66
== END 2019-06-22 10:00 | disposition home or self-care (01) ==
LOC: ER 05:18
DX: S02.5XXA Fracture of tooth (traumatic), initial encounter for closed fracture (principal); X58.XXXA Exposure to other specified factors, initial encounter; J45.909 Unspecified asthma, uncomplicated; E11.9 Type 2 diabetes mellitus without complications

== ENCOUNTER 2019-06-23 02:29 | Emergency (ER) | payer MEDICAID ==
[2019-06-23 02:39] VITALS: BP 126/79
--- NOTE | 2019-06-23 06:41 | EKG REPORT ---
SEVERITY:- OTHERWISE NORMAL ECG - SINUS RHYTHM ST ELEVATION SUGGESTS NORMAL VARIANT EARLY REPOLARISATION : Confirmed by: Rasta Root MD 23-Jun-2019 06:41:31
--- NOTE | 2019-06-23 10:15 | ER Document Report ---
HPI - HPI Time Seen by Provider: 06/23/19 09:46 Pain Level: 1 Notes: Patient is a 33-year-old male well-known to the emergency department, homeless, who presents complaining of epigastric abdominal pain that was described as pressure and did not radiate. Patient states that the symptoms were last night when it was cold and rainy out. Patient states that he did have a piece of his tooth broken off the other day that he swallowed. He was scheduled for dental appointment this morning at 9, but he was here so he missed that appointment. He is otherwise able to eat and drink without difficulty. Patient states that his symptoms resolved and he is feeling much better. He is urinating normally and having normal bowel movements. Denies any headache, fever, neck pain, URI, sore throat, chest pain, palpitations, syncope, cough, shortness of breath, wheeze, dyspnea, nausea/vomiting/diarrhea, urinary retention, dysuria, hematuria, or rash. - ROS Systems Reviewed and Negative: Yes All other systems reviewed and negative - GASTROINTESTINAL Gastrointestinal: REPORTS: Abdominal Pain - REPRODUCTIVE Reproductive: DENIES: : Past Medical History - Social History Smoking Status: Never Smoker Chew tobacco use (# tins/day): No Frequency of alcohol use: None Drug Abuse: None Family History: Reviewed & Not Pertinent Patient has suicidal ideation: No Patient has homicidal ideation: No Pulmonary Medical History: Reports: Hx Asthma - not on home O2, Hx Bronchitis Endocrine Medical History: Reports: Hx Diabetes Mellitus Type 2. Denies: Hx Diabetes Mellitus Type 1 Renal/ Medical History: Denies: Hx Peritoneal Dialysis GI Medical History: Reports: Hx Irritable Bowel - constipation Musculoskeletal Medical History: Reports Hx Arthritis, Reports Hx Musculoskeletal Trauma Psychiatric Medical History: Reports: Hx Anxiety, Hx Bipolar Disorder, Hx Depression, Hx Personality Disorder, Hx Schizoaffective Disorder, Hx Schizophrenia Traumatic Medical History: Reports: Hx Fractures - Finger fracture Past Surgical History: Reports: Hx Abdominal Surgery, Hx Appendectomy, Hx Cholecystectomy, Hx Orthopedic Surgery - fractured finger - Immunizations Immunizations up to date: Yes Hx Diphtheria, Pertussis, Tetanus Vaccination: Yes - 2012 Hx Pneumococcal Vaccination: 08/23/00 Vertical Provider Document - CONSTITUTIONAL Agree With Documented VS: Yes Notes: PHYSICAL EXAMINATION: GENERAL: Well-appearing, well-nourished and in no acute distress. HEAD: Atraumatic, normocephalic. EYES: Pupils equal round and reactive to light, extraocular movements intact, sclera anicteric, conjunctiva are normal. ENT: Nares patent and without discharge. oropharynx clear without exudates. No tonsilar hypertrophy or erythema. Moist mucous membranes. NECK: Normal range of motion, supple without lymphadenopathy LUNGS: Breath sounds clear to auscultation bilaterally and equal. No wheezes rales or rhonchi. HEART: Regular rate and rhythm without murmurs, rubs, gallops. ABDOMEN: Soft, nontender, nondistended abdomen. No guarding, no rebound. Normal bowel sounds present. No CVA tenderness bilaterally. Musculoskeletal: FROM to passive/active. Strength 5+/5. Extremities: No cyanosis, clubbing, or edema b/l. Peripheral pulses 2+. Capillary refill less than 3 seconds. NEUROLOGICAL: Normal speech, normal gait. PSYCH: Normal mood, normal affect. SKIN: Warm, Dry, normal turgor, no rashes or lesions noted. - INFECTION CONTROL TRAVEL OUTSIDE OF THE [place] IN LAST 30 DAYS: No Course - Re-evaluation Re-evalutation: 06/23/19 10:15 Patient is an afebrile, well-hydrated, 33-year-old male who presents with epigastric abdominal pain, since resolved. Vitals are acceptable without any significant tachycardia, tachypnea, or hypoxia. PE is otherwise unremarkable. Pt has had complete resolution of symptoms and abd is soft and non-tender. He has been here all night and is declining any other labs or imaging being performed which I am in agreement with. I do suspect that he came in because of the bad storms last night which is common for him to do, but eval otherwise unremarkable. Patient is tolerating p.o. without difficulties and is nontoxic- appearing. Low suspicion for acute appendicitis, bowel obstruction, acute cholecystitis, perforated diverticulitis, incarcerated hernia, pancreatitis, perforated ulcer, peritonitis, sepsis, testicular torsion, or other systemic emergent condition at this time. Patient is aware that his condition can change from initial presentation and he needs to monitor symptoms closely and seek medical attention if any acute changes. Conservative measures otherwise for symptoms. Recheck with PCM in 2-3 days. Consider consult with a country printer. Return to the ED with any worsening/concerning symptoms otherwise as reviewed in discharge. Patient is in agreement. - Vital Signs Vital signs: Temp Pulse Resp BP Pulse Ox 97.9 F 64 16 126/79 H 100 06/23/19 02:37 06/23/19 02:37 06/23/19 02:37 06/23/19 02:37 06/23/19 02:37 Discharge - Discharge Clinical Impression: Epigastric abdominal pain Condition: Stable Disposition: HOME, SELF-CARE Additional Instructions: Maintain adequate fluid and food intake [place] diet ([employer] Bananas, rice, apples, toast, etc tylenol if needed Monitor for any worsening symptoms Make sure you are staying hydrated enough to urinate and have normal BM's Recheck with your PCM in 2-3 days Consider consult with Gastroenterology for ongoing/worsening symptoms Return to the ED with any worsening symptoms and/or development of fever, headache, chest pain, palpitations, syncope, shortness of breath, trouble breathing, abdominal pain, n/v/d, blood in stool/urine, weakness, or other worsening symptoms that are concerning to you. Forms: Elevated Blood Pressure Referrals: GIANCARLO CHANCE MD [Primary Care Provider] - Follow up as needed
== END 2019-06-23 10:44 | disposition home or self-care (01) ==
LOC: ER 02:29
DX: R10.13 Epigastric pain (principal); J45.909 Unspecified asthma, uncomplicated; E11.9 Type 2 diabetes mellitus without complications; Z59.0 Homelessness; Z90.49 Acquired absence of other specified parts of digestive tract; Z87.19 Personal history of other diseases of the digestive system
CPT/HCPCS: 93005; 93010; 99284

== ENCOUNTER 2019-06-23 13:06 | Emergency (ER) | payer MEDICAID ==
--- NOTE | 2019-06-23 13:25 | ER Document Report ---
ED Medical Screen (RME) - General Chief Complaint: Medication Refill Stated Complaint: PSYCH Time Seen by Provider: 06/23/19 13:19 Primary Care Provider: GIANCARLO CHANCE MD [Primary Care Provider] - Follow up as needed Mode of Arrival: Ambulatory Information source: Patient Notes: Patient states he just went to the oral surgeon had some teeth pulled and now he has for prescription he needs to get filled at 1:00 and he does not have any money to buy any of them in the each 1 will cost him $3. I have greeted and performed a rapid initial assessment of this patient. A comprehensive ED assessment and evaluation of the patient, analysis of test results and completion of medical decision making process will be conducted by an additional ED providers. TRAVEL OUTSIDE OF THE [place] IN LAST 30 DAYS: No - Related Data Allergies/Adverse Reactions: No Known Allergies Allergy (Verified 06/23/19 02:51) Past Medical History - Social History Family history: Reviewed & Not Pertinent Pulmonary Medical History: Reports: Hx Asthma - not on home O2, Hx Bronchitis Endocrine Medical History: Reports: Hx Diabetes Mellitus Type 2. Denies: Hx Diabetes Mellitus Type 1 Renal/ Medical History: Denies: Hx Peritoneal Dialysis GI Medical History: Reports: Hx Irritable Bowel - constipation Musculoskeltal Medical History: Reports Hx Arthritis, Reports Hx Musculoskeletal Trauma Psychiatric Medical History: Reports: Hx Anxiety, Hx Bipolar Disorder, Hx Depression, Hx Personality Disorder, Hx Schizoaffective Disorder, Hx Schizophrenia Traumatic Medical History: Reports: Hx Fractures - Finger fracture Past Surgical History: Reports: Hx Abdominal Surgery, Hx Appendectomy, Hx Cholecystectomy, Hx Orthopedic Surgery - fractured finger - Immunizations Immunizations up to date: Yes Hx Diphtheria, Pertussis, Tetanus Vaccination: Yes - 2012 Doctor's Discharge - Discharge Referrals: GIANCARLO CHANCE MD [Primary Care Provider] - Follow up as needed
[2019-06-23] MEDS ORDERED: CLINDAMYCIN HCL 150 MG CAPSULE PO ONE (14:01)
--- NOTE | 2019-06-23 14:16 | ER Document Report ---
HPI - HPI Time Seen by Provider: 06/23/19 13:19 Pain Level: Denies Context: Patient is a 33-year-old male who presents to the emergency department with a chief complaint of medication refill. Patient reports he had a tooth removed from his right lower mouth at around 1030. Patient reports that this was at an oral surgeon's office across the street. Patient reports he was getting 4 prescriptions in which she did take to [facility]. Patient states that he is upset because he cannot afford these prescriptions. Patient reports they are $3 per prescription. Patient states that he is concerned that he will get an infection if he does not get the oral antibiotic. - REPRODUCTIVE Reproductive: DENIES: : Past Medical History - General Information source: Patient - Social History Smoking Status: Never Smoker Chew tobacco use (# tins/day): No Frequency of alcohol use: None Drug Abuse: None Lives with: Homeless Family History: Reviewed & Not Pertinent Patient has suicidal ideation: No Patient has homicidal ideation: No - Past Medical History Cardiac Medical History: Reports: None Pulmonary Medical History: Reports: Hx Asthma - not on home O2, Hx Bronchitis EENT Medical History: Reports: None Neurological Medical History: Reports: None Endocrine Medical History: Reports: Hx Diabetes Mellitus Type 2. Denies: Hx Diabetes Mellitus Type 1 Renal/ Medical History: Reports: None. Denies: Hx Peritoneal Dialysis Malignancy Medical History: Reports None GI Medical History: Reports: Hx Irritable Bowel - constipation Musculoskeletal Medical History: Reports Hx Arthritis, Reports Hx Musculoskel etal Trauma Skin Medical History: Reports None Psychiatric Medical History: Reports: Hx Anxiety, Hx Bipolar Disorder, Hx Depression, Hx Personality Disorder, Hx Schizoaffective Disorder, Hx Schizophrenia Traumatic Medical History: Reports: Hx Fractures - Finger fracture Infectious Medical History: Reports: None Past Surgical History: Reports: Hx Abdominal Surgery, Hx Appendectomy, Hx Cholecystectomy, Hx Orthopedic Surgery - fractured finger - Immunizations Immunizations up to date: Yes Hx Diphtheria, Pertussis, Tetanus Vaccination: Yes - 2012 Hx Pneumococcal Vaccination: 08/23/00 Vertical Provider Document - CONSTITUTIONAL Agree With Documented VS: Yes Exam Limitations: No Limitations General Appearance: No Apparent Distress - INFECTION CONTROL TRAVEL OUTSIDE OF THE [place] IN LAST 30 DAYS: No - HEENT HEENT: Atraumatic, Normocephalic, PERRLA Mouth Diagram: 1 - Tooth extraction site, oozing blood. Notes: 4x4 gauze folded and placed into right lower mouth, instructed to hold firm but not tight pressure. No facial edema. Patient reports numbness from the anesthesia. - NECK Neck: Normal Inspection - RESPIRATORY Respiratory: Breath Sounds Normal, No Respiratory Distress - CARDIOVASCULAR Cardiovascular: Regular Rate, Regular Rhythm - GI/ABDOMEN Gastrointestinal: Abdomen Soft, Abdomen Non-Tender - NEURO Level of Consciousness: Awake, Alert, Appropriate - DERM Integumentary: Warm, Dry, No Rash Course - Re-evaluation Re-evalutation: 06/23/19 13:49 I did call and speak with [facility]. They reported that he was given a prescription for Motrin, [place], chlorhexidine mouthwash and clindamycin. They report his clindamycin was prescribed at 300 mg 4 times a day for 5 days. I did inform the patient that out of all of these prescriptions the most important would be the clindamycin as this is his antibiotic. I will give his first dose here in the emergency department. Patient was provided the resources to get his antibiotic filled at [facility] once discharged. Patient does have some oozing of blood from the right lower mouth. This is as to be expected. I did discuss the discharge instructions that was provided by the oral surgeon and went over this with him. I did give the patient additional gauze to place in his right lower mouth. Patient was instructed to apply firm but not tight pressure. Patient was given care notes in regards to a tooth extraction. Patient does have Tylenol in his bag. I did inform the patient that he could use this for pain. I did inform the patient to try and seek help and assistance from his friends and family to get the chlorhexidine mouthwash and the rest of his prescriptions. I also did inquire about the patient's comment that he made at the front end manager. The comment was "I want to ." Patient reports he said this out of anger as he was extremely concerned that he was not going to be able to get his antibiotic filled. Patient reports he developed anxiety because he does not want to get an infection. Patient denies suicidal or homicidal ideations at this time. Discharge - Discharge Clinical Impression: History of tooth extraction Qualifiers: Tooth loss class: unspecified tooth loss Qualified Code(s): K08.409 - Partial loss of teeth, unspecified cause, unspecified class Condition: Stable Disposition: HOME, SELF-CARE Additional Instructions: Today you are seen in the emergency department for problems getting your prescriptions. You have been provided the resources to get your clindamycin. Clindamycin is extremely important to have to help prevent infection since he did have a tooth removed this morning by the oral surgeon. Please continue to use the gauze and change if it becomes bloody inside her mouth. Please follow the discharge instructions that were given to you at the surgeon's office. I did call and speak with Jose. They report you did receive a chlorhexidine mouthwash prescription, and ibuprofen prescription, a [place] prescription and clindamycin prescription. The most important prescription is the antibiotic called clindamycin. We have given you your first dose here in the emergency department. Please use the resources provided to you to get your prescription filled. Please return to the emergency department if you develop severe facial swelling, difficulty breathing, difficulty swallowing or any other concerns. Referrals: GIANCARLO CHANCE MD [Primary Care Provider] - Follow up as needed
[2019-06-23 14:21] VITALS: BP 116/79
== END 2019-06-23 14:47 | disposition home or self-care (01) ==
LOC: ER 13:06
DX: K08.409 Partial loss of teeth, unspecified cause, unspecified class (principal); J45.909 Unspecified asthma, uncomplicated; E11.9 Type 2 diabetes mellitus without complications; Z59.0 Homelessness
CPT/HCPCS: 99281; J3490

== ENCOUNTER 2019-06-23 22:52 | Emergency (ER) | payer MEDICAID ==
--- NOTE | 2019-06-24 05:17 | ER Document Report ---
HPI - HPI Patient complains to provider of: Back pain Time Seen by Provider: 06/23/19 23:46 Onset: This evening Onset/Duration: Better, Gone Quality of pain: No pain Pain Level: Denies Context: Patient states that earlier this evening he slept wrong woke up and had back pain. Patient states that he did not injure his back and has not had any fever or urinary symptoms. Patient states that his back is feeling better at this time and denies any complaints. Associated Symptoms: None. denies: Fever, Headache Exacerbated by: Denies Relieved by: Denies Similar symptoms previously: Yes Recently seen / treated by doctor: Yes - ROS ROS below otherwise negative: Yes Systems Reviewed and Negative: Yes All other systems reviewed and negative - CONSTITUTIONAL Constitutional: DENIES: Fever, Chills - NEURO Neurology: DENIES: Headache, Weakness - GASTROINTESTINAL Gastrointestinal: DENIES: Nausea - URINARY Urinary: DENIES: Dysuria - MUSCULOSKELETAL Musculoskeletal: DENIES: Extremity pain, Back Pain, Neck Pain - DERM Skin Color: Normal Skin Problems: None Past Medical History - General Information source: Patient - Social History Smoking Status: Never Smoker Chew tobacco use (# tins/day): No Frequency of alcohol use: None Drug Abuse: None Occupation: None Family History: Reviewed & Not Pertinent Patient has suicidal ideation: No Patient has homicidal ideation: No Pulmonary Medical History: Reports: Hx Asthma - not on home O2, Hx Bronchitis Endocrine Medical History: Reports: Hx Diabetes Mellitus Type 2. Denies: Hx Diabetes Mellitus Type 1 Renal/ Medical History: Denies: Hx Peritoneal Dialysis GI Medical History: Reports: Hx Irritable Bowel - constipation Musculoskeletal Medical History: Reports Hx Arthritis, Reports Hx Musculoskeletal Trauma Psychiatric Medical History: Reports: Hx Anxiety, Hx Bipolar Disorder, Hx Depression, Hx Personality Disorder, Hx Schizoaffective Disorder, Hx Schizophrenia Traumatic Medical History: Reports: Hx Fractures - Finger fracture Past Surgical History: Reports: Hx Abdominal Surgery, Hx Appendectomy, Hx Cholecystectomy, Hx Orthopedic Surgery - fractured finger - Immunizations Immunizations up to date: Yes Hx Diphtheria, Pertussis, Tetanus Vaccination: Yes - 2012 Hx Pneumococcal Vaccination: 08/23/00 Vertical Provider Document - CONSTITUTIONAL Agree With Documented VS: Yes Exam Limitations: No Limitations General Appearance: WD/WN, No Apparent Distress Notes: PHYSICAL EXAMINATION: GENERAL: Well-appearing and in no acute distress. HEAD: Atraumatic, normocephalic. EYES: sclera anicteric, conjunctiva are normal. ENT: nares patent. Moist mucous membranes. NECK: Normal range of motion, supple without lymphadenopathy LUNGS: CTAB and equal. No wheezes rales or rhonchi. HEART: Regular rate and rhythm without murmurs EXTREMITIES: Normal range of motion, no pitting edema. No cyanosis. BACK: No midline tenderness, no step-off or deformity. No CVA tenderness NEUROLOGICAL: Cranial nerves grossly intact. Normal speech. Normal gait. PSYCH: Normal mood, normal affect. SKIN: Warm, Dry, normal turgor, no rashes or lesions noted - INFECTION CONTROL TRAVEL OUTSIDE OF THE [place] IN LAST 30 DAYS: No Course - Re-evaluation Re-evalutation: 06/24/19 05:16 The patient presents with low back pain that has resolved. Patient without signs of spinal cord compression, cauda equina syndrome, infection, aneurysm, or other serious etiology. The patient is neurologically intact. Given the extremely risk of these diagnoses further testing and evaluation for these possibilities does not appear to be indicated at this time. Patient has been instructed to return if the symptoms worsen or change in any way. - Vital Signs Vital signs: Temp Pulse Resp BP Pulse Ox 98.0 F 59 L 12 135/71 H 100 06/23/19 23:16 06/23/19 23:16 06/23/19 23:16 06/23/19 23:16 06/23/19 23:16 Discharge - Discharge Clinical Impression: Resolved low back pain Condition: Stable Disposition: HOME, SELF-CARE Instructions: Acetaminophen, Low Back Pain ([facility]) Additional Instructions: Return immediately for any new or worsening symptoms Followup with your primary care provider, call tomorrow to make a followup appointment Referrals: GIANCARLO CHANCE MD [Primary Care Provider] - Follow up as needed
[2019-06-24 05:43] VITALS: BP 105/63
== END 2019-06-24 05:42 | disposition home or self-care (01) ==
LOC: ER 22:52
DX: M54.5 Low back pain (principal); J45.909 Unspecified asthma, uncomplicated; E11.9 Type 2 diabetes mellitus without complications
CPT/HCPCS: 99283

== ENCOUNTER 2019-06-25 04:45 | Emergency (ER) | payer MEDICAID ==
--- NOTE | 2019-06-25 06:16 | ER Document Report ---
ED General - General Chief Complaint: Cough Stated Complaint: FEVER/COUGH Time Seen by Provider: 06/25/19 06:13 Primary Care Provider: GIANCARLO CHANCE MD [Primary Care Provider] - Follow up as needed TRAVEL OUTSIDE OF THE [place] IN LAST 30 DAYS: No - HPI Notes: 34M has had 1d of sore throat first noticed last night w/ itchy feeling in back of throat w/o difficulty opening mouth. no voice change or diff in full rom neck. no LACKEY. denies f/c/s to me. says: "I just want to make sure I don't have a bad fever or cough." would appreciate something to eat while he's here. denies cp or dysnpea or (near) passing out. ED staff relay to me they know him well as he is homeless, but accesses our facility often particularly w/ bad weather, and he comes often but does at times come w/ asthma exacerbation. today he looks in good spirits well to those who know his baseline. - Related Data Allergies/Adverse Reactions: No Known Allergies Allergy (Verified 09/14/19 07:43) Home Medications: albuterol inhaler Past Medical History - General Information source: Patient, [facility] Records - Social History Smoking Status: Never Smoker Family History: Reviewed & Not Pertinent Patient has suicidal ideation: No Patient has homicidal ideation: No Pulmonary Medical History: Reports: Hx Asthma - not on home O2, Hx Bronchitis Endocrine Medical History: Reports: Hx Diabetes Mellitus Type 2. Denies: Hx Diabetes Mellitus Type 1 Renal/ Medical History: Denies: Hx Peritoneal Dialysis GI Medical History: Reports: Hx Irritable Bowel - constipation Musculoskeletal Medical History: Reports Hx Arthritis, Reports Hx M usculoskeletal Trauma Psychiatric Medical History: Reports: Hx Anxiety, Hx Bipolar Disorder, Hx Depression, Hx Personality Disorder, Hx Schizoaffective Disorder, Hx Schizophre romario Traumatic Medical History: Reports: Hx Fractures - Finger fracture Past Surgical History: Reports: Hx Abdominal Surgery, Hx Appendectomy, Hx [place] cystectomy, Hx Orthopedic Surgery - fractured finger - Immunizations Immunizations up to date: Yes Hx Diphtheria, Pertussis, Tetanus Vaccination: Yes - 2012 Hx Pneumococcal Vaccination: 08/23/00 Review of Systems - Review of Systems Constitutional: No symptoms reported. denies: Chills, Diaphoresis, Fever, Weakness, Weight gain, Weight loss, Recent illness EENT: See HPI, Throat pain. denies: Eye pain, Eye discharge, Blurred vision, Double vision, Ear pain, Ear discharge, Nose congestion, Sinus pressure, Difficulty swallowing, Throat swelling, Mouth pain, Mouth swelling, Dental problem Cardiovascular: No symptoms reported Respiratory: No symptoms reported, Cough. denies: Hurts to breathe, Hemoptysis, Short of breath, Sputum, Stridor, Wheezing Gastrointestinal: No symptoms reported Genitourinary: No symptoms reported Male Genitourinary: No symptoms reported Musculoskeletal: No symptoms reported Skin: No symptoms reported Hematologic/Lymphatic: No symptoms reported Neurological/Psychological: No symptoms reported Physical Exam - Vital signs Vitals: Temp Pulse Resp BP Pulse Ox 97.7 F 59 L 20 125/67 100 06/25/19 04:54 06/25/19 04:54 06/25/19 04:54 06/25/19 04:54 06/25/19 04:54 Interpretation: Normal - General General appearance: Appears well, Alert In distress: None - very well appearing nontoxic, pleasant demeanor, appreciative of staff - HEENT Head: Normocephalic, Atraumatic Eyes: Normal. No: Pale conjunctiva, Periorbital edema, Scleral icterus Conjunctiva: No: Injected, Purulent discharge Extraocular movements intact: Yes Eyelashes: Normal Pupils: PERRL Nerve palsy: No Ears: Normal External canal: Normal Tympanic membrane: Normal Nasal: Normal Mouth/Lips: Normal Mucous membranes: Moist Pharynx: Normal. No: Erythema, Exudate, Peritonsillar abscess, Tonsillar hypertrophy, Uvular edema, Potential airway comprom. Neck: Normal - Respiratory Respiratory status: No respiratory distress Chest status: Nontender Breath sounds: Normal. No: Decreased air movement, Nonproductive cough, Productive cough, Rales, Rhonchi, Stridor, Wheezing Chest palpation: Normal. No: Tender, Ecchymosis - Cardiovascular Rhythm: Regular Heart sounds: Normal auscultation Murmur: No - Abdominal Inspection: Normal Distension: No distension Bowel sounds: Normal Tenderness: Nontender Organomegaly: No organomegaly - Back Back: Normal, Nontender - Extremities General upper extremity: Normal inspection, Nontender, Normal color, Normal ROM, Normal temperature General lower extremity: Normal inspection, Nontender, Normal color, Normal ROM, Normal temperature, Normal weight bearing. No: Esdras's sign - Neurological Neuro grossly intact: Yes Cognition: Normal Orientation: AAOx4 [place] Coma Scale Eye Opening: Spontaneous Jasmin Coma Scale Verbal: Oriented [place] Coma Scale Motor: Obeys Commands Jasmin Coma Scale Total: 15 Speech: Normal Motor strength normal: LUE, RUE, LLE, RLE Sensory: Normal - Psychological Associated symptoms: Normal affect, Normal mood - Skin Skin Temperature: Warm Skin Moisture: Dry Skin Color: Normal Course - Re-evaluation Re-evalutation: vss remained stable and w/o fevers while observed in ED. enjoyed/tolerated meal/drink. he says has inhaler no refill needs. udnerstands can always access ed if needed or pcp offfice w/ appt. - Vital Signs Vital signs: Temp Pulse Resp BP Pulse Ox 97.8 F 74 16 126/78 H 98 06/25/19 08:02 06/25/19 08:02 06/25/19 08:02 06/25/19 08:02 06/25/19 08:02 Discharge - Discharge Clinical Impression: Cough Condition: Good Disposition: HOME, SELF-CARE Instructions: Acetaminophen Referrals: GIANCARLO CHANCE MD [Primary Care Provider] - Follow up as needed
[2019-06-25 08:03] VITALS: BP 126/78
== END 2019-06-25 08:02 | disposition home or self-care (01) ==
LOC: ER 04:45
DX: R05 Cough (principal); R50.9 Fever, unspecified; E11.9 Type 2 diabetes mellitus without complications; Z59.0 Homelessness; Z90.49 Acquired absence of other specified parts of digestive tract
CPT/HCPCS: 99283

== ENCOUNTER 2019-06-26 00:07 | Emergency (ER) | payer MEDICAID ==
[2019-06-26] MEDS ORDERED: CETIRIZINE 10 MG TABLET PO ONE (01:08)
--- NOTE | 2019-06-26 01:08 | ER Document Report ---
HPI - HPI Patient complains to provider of: sore throat Time Seen by Provider: 06/26/19 01:02 Onset: This evening Onset/Duration: Gradual Quality of pain: Achy Pain Level: 2 Context: Patient presents complaining of sneezing and sore throat that started this evening. Patient denies any fever. Patient denies any cough or ear pain. Associated Symptoms: Rhinnorhea, Sore throat. denies: Fever, Nausea Exacerbated by: Denies Relieved by: Denies Similar symptoms previously: Yes Recently seen / treated by doctor: Yes - ROS ROS below otherwise negative: Yes Systems Reviewed and Negative: Yes All other systems reviewed and negative - CONSTITUTIONAL Constitutional: DENIES: Fever - EENT EENT: REPORTS: Sore Throat, Nasal Drainage-Clear, Congestion - RESPIRATORY Respiratory: DENIES: Coughing - GASTROINTESTINAL Gastrointestinal: DENIES: Patient vomiting - DERM Skin Color: Normal Skin Problems: None Past Medical History - General Information source: Patient - Social History Smoking Status: Never Smoker Lives with: Homeless Family History: Reviewed & Not Pertinent Patient has suicidal ideation: No Patient has homicidal ideation: No Pulmonary Medical History: Reports: Hx Asthma - not on home O2, Hx Bronchitis Endocrine Medical History: Reports: Hx Diabetes Mellitus Type 2. Denies: Hx Diabetes Mellitus Type 1 Renal/ Medical History: Denies: Hx Peritoneal Dialysis GI Medical History: Reports: Hx Irritable Bowel - constipation Musculoskeletal Medical History: Reports Hx Arthritis, Reports Hx Musculoskeletal Trauma Psychiatric Medical History: Reports: Hx Anxiety, Hx Bipolar Disorder, Hx Depression, Hx Personality Disorder, Hx Schizoaffective Disorder, Hx Schizophrenia Traumatic Medical History: Reports: Hx Fractures - Finger fracture Past Surgical History: Reports: Hx Abdominal Surgery, Hx Appendectomy, Hx Cholecystectomy, Hx Orthopedic Surgery - fractured finger - Immunizations Immunizations up to date: Yes Hx Diphtheria, Pertussis, Tetanus Vaccination: Yes - 2012 Hx Pneumococcal Vaccination: 08/23/00 Vertical Provider Document - CONSTITUTIONAL Agree With Documented VS: Yes Exam Limitations: No Limitations General Appearance: WD/WN, No Apparent Distress - INFECTION CONTROL TRAVEL OUTSIDE OF THE [place] IN LAST 30 DAYS: No - HEENT HEENT: Atraumatic, Normocephalic, Pharyngeal Tenderness, Pharyngeal Erythema. negative: Pharyngeal Exudate, Tympanic Membrane Red, Tympanic Membrane Bulging - NECK Neck: Normal Inspection, Supple. negative: Lymphadenopathy-Left, Lymphadenopathy-Right - RESPIRATORY Respiratory: Breath Sounds Normal, No Respiratory Distress - CARDIOVASCULAR Cardiovascular: Regular Rate, Regular Rhythm - BACK Back: Normal Inspection - MUSCULOSKELETAL/EXTREMETIES Musculoskeletal/Extremeties: MAEW - NEURO Level of Consciousness: Awake, Alert, Appropriate Motor/Sensory: No Motor Deficit - DERM Integumentary: Warm, Dry Course - Vital Signs Vital signs: Temp Pulse Resp BP Pulse Ox 97.2 F 59 L 20 144/78 H 100 06/26/19 00:13 06/26/19 00:13 06/26/19 00:13 06/26/19 00:13 06/26/19 00:13 - Laboratory Laboratory results interpreted by me: 06/26/19 02:08 Labs- Entire Visit 06/26/19 01:20 Group A Strep Rapid NEGATIVE Discharge - Discharge Clinical Impression: Sore throat, Sneezing Condition: Stable Disposition: HOME, SELF-CARE Instructions: Sore Throat ([facility]) Additional Instructions: Return immediately for any new or worsening symptoms Followup with your primary care provider, call tomorrow to make a followup appointment Throat culture is pending, we will call if you need any different treatment Prescriptions: Cetirizine HCl [Zyrtec 10 mg Tablet] 1 tab PO DAILY #30 tablet Referrals: GIANCARLO CHANCE MD [Primary Care Provider] - Follow up as needed
[2019-06-26 02:18] VITALS: BP 140/70
== END 2019-06-26 02:16 | disposition home or self-care (01) ==
LOC: ER 00:07
DX: J02.9 Acute pharyngitis, unspecified (principal); R06.7 Sneezing; R09.89 Other specified symptoms and signs involving the circulatory and respiratory systems; J45.909 Unspecified asthma, uncomplicated
CPT/HCPCS: 87070; 87880; J3490; 99283

== ENCOUNTER 2019-06-29 03:38 | Emergency (ER) | payer MEDICAID ==
--- NOTE | 2019-06-29 07:20 | ER Document Report ---
ED General - General Chief Complaint: Cough Stated Complaint: COUGH Time Seen by Provider: 06/29/19 06:05 Primary Care Provider: GIANCARLO CHANCE MD [Primary Care Provider] - Follow up as needed TRAVEL OUTSIDE OF THE [place] IN LAST 30 DAYS: No - HPI Notes: This is a 33-year gentleman who presents with a complaint of cough and congestion for the past 3 days. Patient was seen here 3 days ago with similar presentation. At that time, he also had a sore throat. He had a negative strep. He continues to have some slight cough. He did not for the prescriptions were given to him. He denies any fever or chills. Describes symptoms as mild. There are no obvious aggravating or relieving factors. - Related Data Allergies/Adverse Reactions: No Known Allergies Allergy (Verified 06/23/19 02:51) Past Medical History - Social History Smoking Status: Former Smoker Frequency of alcohol use: None Drug Abuse: None Family History: Reviewed & Not Pertinent Patient has suicidal ideation: No Patient has homicidal ideation: No Pulmonary Medical History: Reports: Hx Asthma - not on home O2, Hx Bronchitis Endocrine Medical History: Reports: Hx Diabetes Mellitus Type 2. Denies: Hx Diabetes Mellitus Type 1 Renal/ Medical History: Denies: Hx Peritoneal Dialysis GI Medical History: Reports: Hx Irritable Bowel - constipation Musculoskeletal Medical History: Reports Hx Arthritis, Reports Hx Musculoskeletal Trauma Psychiatric Medical History: Reports: Hx Anxiety, Hx Bipolar Disorder, Hx Depression, Hx Personality Disorder, Hx Schizoaffective Disorder, Hx Schizophrenia Traumatic Medical History: Reports: Hx Fractures - Finger fracture Past Surgical History: Reports: Hx Abdominal Surgery, Hx Appendectomy, Hx Cholecystectomy, Hx Orthopedic Surgery - fractured finger - Immunizations Immunizations up to date: Yes Hx Diphtheria, Pertussis, Tetanus Vaccination: Yes - 2012 Hx Pneumococcal Vaccination: 08/23/00 Review of Systems - Review of Systems Constitutional: denies: Fever EENT: Nose congestion Cardiovascular: denies: Chest pain Respiratory: Cough. denies: Short of breath, Sputum Gastrointestinal: denies: Abdominal pain -: Yes All other systems reviewed and negative Physical Exam - Vital signs Vitals: Temp Pulse BP Pulse Ox 97.5 F 60 119/84 99 06/29/19 03:53 06/29/19 03:53 06/29/19 03:53 06/29/19 03:53 - General General appearance: Appears well, Alert - HEENT Head: Normocephalic, Atraumatic Eyes: Normal Pupils: PERRL Pharynx: Normal. No: Exudate, Peritonsillar abscess, Post nasal drainage, Retropharyngeal abscess, Tonsillar hypertrophy - Respiratory Respiratory status: No respiratory distress Chest status: Nontender Breath sounds: Normal Chest palpation: Normal - Cardiovascular Rhythm: Regular Heart sounds: Normal auscultation Murmur: No Course - Re-evaluation Re-evalutation: 06/29/19 07:22 Differential diagnosis includes URI versus less likely pneumonia. 06/29/19 07:45 Pt is doing well. Chest x-ray negative. He looks well. He is stable for discharge. - Vital Signs Vital signs: Temp Pulse Resp BP Pulse Ox 97.6 F 59 L 16 99/59 L 96 06/29/19 07:38 06/29/19 07:38 06/29/19 07:38 06/29/19 07:38 06/29/19 07:38 Discharge - Discharge Clinical Impression: URI (upper respiratory infection) Qualifiers: URI type: unspecified URI Qualified Code(s): J06.9 - Acute upper respiratory infection, unspecified Condition: Good Disposition: HOME, SELF-CARE Instructions: Upper Respiratory Illness ([facility]) Prescriptions: Benzonatate [Tessalon Perles 100 mg Capsule] 100 mg PO Q8HP PRN #40 capsule PRN Reason: Referrals: GIANCARLO CHANCE MD [Primary Care Provider] - Follow up as needed
--- NOTE | 2019-06-29 07:33 | RADIOLOGY REPORT (SQ) ---
EXAM DESCRIPTION: XR CHEST 2 VIEWS COMPLETED DATE/TME: 06/29/2019 06:15 CLINICAL HISTORY: 33 years, Male, cough COMPARISON: 06/11/2019 NUMBER OF VIEWS: Two TECHNIQUE: Two views of the chest LIMITATIONS: None. FINDINGS: The lungs are clear. The heart is normal in size. There is no pneumothorax or pleural effusion. The bones are unremarkable. IMPRESSION: No acute cardiopulmonary abnormality. copyright 2010 [employer]- All Rights Reserved
[2019-06-29 07:42] VITALS: BP 99/59
== END 2019-06-29 08:00 | disposition home or self-care (01) ==
LOC: ER 03:38
DX: J06.9 Acute upper respiratory infection, unspecified (principal); R05 Cough; R09.81 Nasal congestion; J45.909 Unspecified asthma, uncomplicated; E11.9 Type 2 diabetes mellitus without complications; Z87.891 Personal history of nicotine dependence
CPT/HCPCS: 71046; 99283

== ENCOUNTER 2019-07-01 19:36 | Emergency (ER) | payer MEDICAID ==
[2019-07-01] MEDS ORDERED: IPRATROPIUM/ALBUTEROL 0.5-2.5 MG/3 ML AMPUL NEB ONE (20:15)
--- NOTE | 2019-07-01 20:16 | ER Document Report ---
ED Medical Screen (RME) - General Chief Complaint: Nausea Stated Complaint: SICKNESS Time Seen by Provider: 07/01/19 20:08 Primary Care Provider: GIANCARLO CHANCE MD [Primary Care Provider] - Follow up as needed Information source: Patient Notes: Patient presents concerned about not feeling right. Patient states that he is worried about his saliva and a warm feeling to his head. Patient also is concerned about pneumonia. Patient in triage attempting to use google list his symptoms. Patient unable to give prescription of the symptoms he is having presently. I have greeted and performed a rapid initial assessment of this patient. A comprehensive ED assessment and evaluation of the patient, analysis of test results and completion of the medical decision making process will be conducted by additional ED providers. TRAVEL OUTSIDE OF THE [place] IN LAST 30 DAYS: No - Related Data Allergies/Adverse Reactions: No Known Allergies Allergy (Verified 06/23/19 02:51) Past Medical History - Social History Family history: Reviewed & Not Pertinent Pulmonary Medical History: Reports: Hx Asthma - not on home O2, Hx Bronchitis Endocrine Medical History: Reports: Hx Diabetes Mellitus Type 2. Denies: Hx Diabetes Mellitus Type 1 Renal/ Medical History: Denies: Hx Peritoneal Dialysis GI Medical History: Reports: Hx Irritable Bowel - constipation Musculoskeltal Medical History: Reports Hx Arthritis, Reports Hx Musculoskeletal Trauma Psychiatric Medical History: Reports: Hx Anxiety, Hx Bipolar Disorder, Hx Depression, Hx Personality Disorder, Hx Schizoaffective Disorder, Hx Schizophrenia Traumatic Medical History: Reports: Hx Fractures - Finger fracture Past Surgical History: Reports: Hx Abdominal Surgery, Hx Appendectomy, Hx Cholecystectomy, Hx Orthopedic Surgery - fractured finger - Immunizations Immunizations up to date: Yes Hx Diphtheria, Pertussis, Tetanus Vaccination: Yes - 2012 Physical Exam - Vital signs Vitals: Temp Pulse Resp BP Pulse Ox 99.0 F 91 16 118/74 96 07/01/19 19:51 07/01/19 19:51 07/01/19 19:51 07/01/19 19:51 07/01/19 19:51 - Respiratory Respiratory status: No respiratory distress Breath sounds: Nonproductive cough Course - Vital Signs Vital signs: Temp Pulse Resp BP Pulse Ox 99.0 F 91 16 118/74 96 07/01/19 19:51 07/01/19 19:51 07/01/19 19:51 07/01/19 19:51 07/01/19 19:51 Doctor's Discharge - Discharge Referrals: GIANCARLO CHANCE MD [Primary Care Provider] - Follow up as needed
--- NOTE | 2019-07-01 21:21 | ER Document Report ---
ED General - General Chief Complaint: Shortness Of Breath Stated Complaint: SICKNESS Time Seen by Provider: 07/01/19 20:08 Primary Care Provider: GIANCARLO CHANCE MD [Primary Care Provider] - Follow up as needed TRAVEL OUTSIDE OF THE [place] IN LAST 30 DAYS: No - Related Data Allergies/Adverse Reactions: No Known Allergies Allergy (Verified 06/23/19 02:51) Past Medical History - General Information source: Patient - Social History Smoking Status: Never Smoker Family History: Reviewed & Not Pertinent Patient has suicidal ideation: No Patient has homicidal ideation: No Pulmonary Medical History: Reports: Hx Asthma - not on home O2, Hx Bronchitis Endocrine Medical History: Reports: Hx Diabetes Mellitus Type 2. Denies: Hx Diabetes Mellitus Type 1 Renal/ Medical History: Denies: Hx Peritoneal Dialysis GI Medical History: Reports: Hx Irritable Bowel - constipation Musculoskeletal Medical History: Reports Hx Arthritis, Reports Hx Musculoskeletal Trauma Psychiatric Medical History: Reports: Hx Anxiety, Hx Bipolar Disorder, Hx Depres zeynep, Hx Personality Disorder, Hx Schizoaffective Disorder, Hx Schizophrenia Traumatic Medical History: Reports: Hx Fractures - Finger fracture Past Surgical History: Reports: Hx Abdominal Surgery, Hx Appendectomy, Hx Cholecystectomy, Hx Orthopedic Surgery - fractured finger - Immunizations Immunizations up to date: Yes Hx Diphtheria, Pertussis, Tetanus Vaccination: Yes - 2012 Hx Pneumococcal Vaccination: 08/23/00 Physical Exam - Vital signs Vitals: Temp Pulse Resp BP Pulse Ox 99.0 F 91 16 118/74 96 07/01/19 19:51 07/01/19 19:51 07/01/19 19:51 07/01/19 19:51 07/01/19 19:51 Course - Re-evaluation Re-evalutation: 07/01/19 21:20 Chest x-ray shows no acute abnormalities. His chief complaint is that it is cold outside and when he inhales cold air it feels special agent in charge his chest. Some fevers or illnesses. Of note, the patient is homeless. - Vital Signs Vital signs: Temp Pulse Resp BP Pulse Ox 99.0 F 91 16 118/74 96 07/01/19 19:51 07/01/19 19:51 07/01/19 19:51 07/01/19 19:51 07/01/19 19:51 - Diagnostic Test Radiology reviewed: Image reviewed, Reports reviewed Discharge - Discharge Clinical Impression: Tracheal irritation due to cold air Condition: Good Disposition: HOME, SELF-CARE Additional Instructions: You have a normal chest x-ray with no acute findings. Referrals: GIANCARLO CHANCE MD [Primary Care Provider] - Follow up as needed
--- NOTE | 2019-07-01 21:22 | RADIOLOGY REPORT (SQ) ---
EXAM: XR CHEST 2 VIEWS CLINICAL INDICATION: 33-year-old male with cough. TECHNIQUE: Two-view, PA and lateral projections of the chest were obtained. COMPARISON: None. FINDINGS: Unremarkable cardiac and mediastinal silhouette. Heart size is normal. Lungs are clear without focal opacity, pneumothorax or pleural effusions. The visualized bones are within normal limits. IMPRESSION: No acute cardiopulmonary abnormalities.
[2019-07-01 21:40] VITALS: BP 118/78
--- NOTE | 2019-07-05 11:14 | ER Document Report ---
Entered by MALU VERGARA SCRIBE 07/01/19 2138 Acting as scribe for:ANDRZEJ GONZALES MD ED Respiratory Problem - General Chief Complaint: Shortness Of Breath Stated Complaint: SICKNESS Time Seen by Provider: 07/01/19 20:08 Primary Care Provider: GIANCARLO CHANCE MD [Primary Care Provider] - Follow up as needed Mode of Arrival: Ambulatory Information source: Patient Notes: 33-year-old male who is well-known to this emergency department, in fact has been seen 10 times here in the last 2 weeks, who presents today for complaints of "heat moisture". Patient seems frustrated that "heat moisture" is not a term that we are familiar with. Patient states over and over that he has "heat moisture in his throat". Patient is homeless and eventually he states that breathing in the cold air johnson his throat. Patient has all of his inhalers and is not out of any medications. Patient denies any shortness of breath. Patient states he needs something to put over his mouth to breathe the cold air. TRAVEL OUTSIDE OF THE [place] IN LAST 30 DAYS: No - Related Data Allergies/Adverse Reactions: No Known Allergies Allergy (Verified 06/23/19 02:51) Past Medical History - General Information source: Patient, [facility] Records - Social History Smoking Status: Never Smoker Cigarette use (# per day): No Frequency of alcohol use: None Drug Abuse: None Lives with: Family Family History: Reviewed & Not Pertinent Patient has suicidal ideation: No Patient has homicidal ideation: No Pulmonary Medical History: Reports: Hx Asthma - not on home O2, Hx Bronchitis Endocrine Medical History: Reports: Hx Diabetes Mellitus Type 2 GI Medical History: Reports: Hx Irritable Bowel - constipation Musculoskeletal Medical History: Reports Hx Arthritis, Reports Hx Musculoskeletal Trauma Psychiatric Medical History: Reports: Hx Anxiety, Hx Bipolar Disorder, Hx Depression, Hx Personality Disorder, Hx Schizoaffective Disorder, Hx Schizophrenia Traumatic Medical History: Reports: Hx Fractures - Finger fracture Past Surgical History: Reports: Hx Abdominal Surgery, Hx Appendectomy, Hx Cholecystectomy, Hx Orthopedic Surgery - fractured finger - Immunizations Immunizations up to date: Yes Hx Diphtheria, Pertussis, Tetanus Vaccination: Yes - 2012 Hx Pneumococcal Vaccination: 08/23/00 Review of Systems - Review of Systems Constitutional: No symptoms reported EENT: No symptoms reported Cardiovascular: No symptoms reported Respiratory: See HPI, Other - "heat moisture" Gastrointestinal: No symptoms reported Genitourinary: No symptoms reported Male Genitourinary: No symptoms reported Musculoskeletal: No symptoms reported Skin: No symptoms reported Hematologic/Lymphatic: No symptoms reported Neurological/Psychological: No symptoms reported -: Yes All other systems reviewed and negative Physical Exam - Vital signs Vitals: Temp Pulse Resp BP Pulse Ox 99.0 F 91 16 118/74 96 07/01/19 19:51 07/01/19 19:51 07/01/19 19:51 07/01/19 19:51 07/01/19 19:51 - Notes Notes: Physical Exam: General: Disheveled. Has a massive suitcase with all of his belongings with him as he is homeless. HEENT: Normocephalic. Atraumatic. PERRL. Extraocular movements intact. Oropharynx clear. Neck: Supple. Non-tender. Respiratory: No respiratory distress. Clear and equal breath sounds bilaterally. No wheezing. Cardiovascular: Regular rate and rhythm. Abdominal: Normal Inspection. Non-tender. No distension. Normal Bowel Sounds. Back: No gross abnormalities. Extremities: Moves all four extremities. Upper extremities: Normal inspection. Normal ROM. Lower extremities: Normal inspection. No edema. Normal ROM. Neurological: Normal cognition. AAOx4. Normal speech. Skin: Warm. Dry. Normal color. Course - Re-evaluation Re-evalutation: 07/01/19 21:38 Chest x-ray shows no acute abnormalities. 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 Some fevers or illnesses. Of note, the patient is homeless. - Vital Signs Vital signs: Temp Pulse Resp BP Pulse Ox 98.3 F 98 18 118/78 96 07/01/19 21:38 07/01/19 21:38 07/01/19 21:38 07/01/19 21:38 07/01/19 21:38 Discharge - Discharge Clinical Impression: Tracheal irritation due to cold air Condition: Good Disposition: HOME, SELF-CARE Additional Instructions: You have a normal chest x-ray with no acute findings. Referrals: GIANCARLO CHANCE MD [Primary Care Provider] - Follow up as needed I personally performed the services described in the documentation, reviewed and edited the documentation which was dictated to the scribe in my presence, and it accurately records my words and actions.
== END 2019-07-01 21:37 | disposition home or self-care (01) ==
LOC: ER 19:36
DX: R09.89 Other specified symptoms and signs involving the circulatory and respiratory systems (principal); R11.0 Nausea; E11.9 Type 2 diabetes mellitus without complications; J45.909 Unspecified asthma, uncomplicated; Z90.49 Acquired absence of other specified parts of digestive tract; Z59.0 Homelessness
CPT/HCPCS: 94640; 99284; 71046; J7620

== ENCOUNTER 2019-07-02 16:37 | Emergency (ER) | payer MEDICAID ==
[2019-07-02] MEDS ORDERED: IPRATROPIUM/ALBUTEROL 0.5-2.5 MG/3 ML AMPUL NEB ONE (17:08)
[2019-07-02] MEDS ORDERED: ONDANSETRON 4 MG TAB.RAPDIS PO ONE (17:08)
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
--- NOTE | 2019-07-02 18:58 | ER Document Report ---
HPI - HPI Patient complains to provider of: suspect poisoning Time Seen by Provider: 07/02/19 17:07 Onset: Just prior to arrival Onset/Duration: Sudden Pain Level: Denies Context: This 33-year-old male well-known to this facility with history of asthma presents emergency department with questionable poisoning from his mellow yellow. He reports he put his mellow yellow down and later on he drank some and he started vomiting. He reports it could also be just a bug. Patient is using his inhaler as prescribed but he is wheezing lots of nasal congestion spitting into an emesis bag. Patient is homeless sleeps outside. Reports he is swallowing without problems. No complaints of fever or diarrhea. Associated Symptoms: Vomiting Exacerbated by: Denies Relieved by: Denies Similar symptoms previously: No Recently seen / treated by doctor: No - REPRODUCTIVE Reproductive: DENIES: : Past Medical History - General Information source: Patient - Social History Smoking Status: Never Smoker Chew tobacco use (# tins/day): No Frequency of alcohol use: Rare Drug Abuse: None Lives with: Alone Family History: Reviewed & Not Pertinent Patient has suicidal ideation: No Patient has homicidal ideation: No Pulmonary Medical History: Reports: Hx Asthma - not on home O2, Hx Bronchitis Endocrine Medical History: Reports: Hx Diabetes Mellitus Type 2. Denies: Hx Diabetes Mellitus Type 1 Renal/ Medical History: Denies: Hx Peritoneal Dialysis GI Medical History: Reports: Hx Irritable Bowel - constipation Musculoskeletal Medical History: Reports Hx Arthritis, Reports Hx Musculoskeletal Trauma Psychiatric Medical History: Reports: Hx Anxiety, Hx Bipolar Disorder, Hx Depression, Hx Personality Disorder, Hx Schizoaffective Disorder, Hx Schizophrenia Traumatic Medical History: Reports: Hx Fractures - Finger fracture Past Surgical History: Reports: Hx Abdominal Surgery, Hx Appendectomy, Hx Cholecystectomy, Hx Orthopedic Surgery - fractured finger - Immunizations Immunizations up to date: Yes Hx Diphtheria, Pertussis, Tetanus Vaccination: Yes - 2012 Hx Pneumococcal Vaccination: 08/23/00 Vertical Provider Document - CONSTITUTIONAL Agree With Documented VS: Yes Exam Limitations: No Limitations General Appearance: WD/WN, No Apparent Distress - INFECTION CONTROL TRAVEL OUTSIDE OF THE [place] IN LAST 30 DAYS: No - HEENT HEENT: Atraumatic, Normocephalic. negative: Conjuctival Injection, Pharyngeal Erythema, Tympanic Membrane Red - NECK Neck: Normal Inspection, Supple. negative: Lymphadenopathy-Left, Lymphadenopathy-Right - RESPIRATORY Respiratory: No Respiratory Distress, Wheezing - CARDIOVASCULAR Cardiovascular: Regular Rate, Regular Rhythm - GI/ABDOMEN Gastrointestinal: Abdomen Soft - MUSCULOSKELETAL/EXTREMETIES Musculoskeletal/Extremeties: RIGO MCBRIDE - NEURO Level of Consciousness: Awake, Alert, Appropriate Motor/Sensory: No Motor Deficit - DERM Integumentary: Warm, Dry Course - Re-evaluation Re-evalutation: 07/02/19 19:06 Patient is well-known to this facility he comes in often due to his asthma. He is spitting into emesis bag due to so much congestion. Wheezing also noted. Steroids, neb treatment and chest x-ray ordered. 07/02/19 19:53 Chest X-Ray 07/02/19 19:03 IMPRESSION: NO ACUTE DISEASE. 07/02/19 20:15 Chest x-ray negative. Patient instructed on results. He sounds much better. He he was instructed on Mucinex and steroids. He verbalized understanding to all instructions seemed happy with results. Respiratory rate even unlabored no wheeze noted Dictation of this chart was performed using voice recognition software; therefore, there may be some unintended grammatical errors. - Vital Signs Vital signs: Temp Pulse Resp BP Pulse Ox 98.6 F 80 20 129/81 H 97 07/02/19 16:53 07/02/19 16:53 07/02/19 16:53 07/02/19 16:53 07/02/19 16:53 - Diagnostic Test Radiology reviewed: Image reviewed, Reports reviewed Discharge - Discharge Clinical Impression: Cough, congestion, Wheeze Vomiting Qualifiers: Vomiting type: unspecified Vomiting Intractability: non-intractable Nausea presence: unspecified Qualified Code(s): R11.10 - Vomiting, unspecified Condition: Stable Disposition: HOME, SELF-CARE Instructions: Asthma ([facility]), Steroid Medication Additional Instructions: *You have been evaluated for a cough, congestion, wheeze *Take medication as prescribed, use your inhaler as prescribed *Increase fluids *Monitor your temperature, take Tylenol as indicated *Follow up with Dr. Lamb this week *Return to ED for increasing fever, cough, worsening condition, changes, needs Prescriptions: Prednisone [Deltasone 10 mg Tablet] 10 mg PO ASDIR PRN #21 tablet PRN Reason: Guaifenesin/Pseudoephedrne HCl [Mucinex D ER 600-60 mg Tablet] 1 each PO BID #1 pkg Referrals: GIANCARLO LAMB MD [Primary Care Provider] - Follow up in 3-5 days
[2019-07-02] MEDS ORDERED: PREDNISONE 20 MG TABLET PO ONE (19:03)
[2019-07-02] MEDS ORDERED: GUAIFENESIN 600 MG TABLET.SA PO ONE (19:37)
--- NOTE | 2019-07-02 19:51 | RADIOLOGY REPORT (SQ) ---
EXAM DESCRIPTION: CHEST 2 VIEWS COMPLETED DATE/TIME: 07/02/2019 7:34 pm REASON FOR STUDY: cough congestion COMPARISON: None. EXAM PARAMETERS: NUMBER OF VIEWS: two views TECHNIQUE: Digital Frontal and Lateral radiographic views of the chest acquired. RADIATION DOSE: NA LIMITATIONS: none FINDINGS: LUNGS AND PLEURA: No acute infiltrates or effusions. MEDIASTINUM AND HILAR STRUCTURES: No masses or contour abnormalities. HEART AND VASCULAR STRUCTURES: The heart pulmonary vasculature are normal. BONES: No acute findings. HARDWARE: None in the chest. OTHER: No other significant finding. IMPRESSION: NO ACUTE DISEASE. TECHNICAL DOCUMENTATION: JOB ID: [id number] [id number] 2010 [employer]- All Rights Reserved Reading location - IP/workstation name: [email or web address]
[2019-07-02 20:03] VITALS: BP 114/68
== END 2019-07-02 20:24 | disposition home or self-care (01) ==
LOC: ER 16:37
DX: R09.81 Nasal congestion (principal); J45.909 Unspecified asthma, uncomplicated; Z79.899 Other long term (current) drug therapy; R05 Cough; R11.10 Vomiting, unspecified; Z59.0 Homelessness; E11.9 Type 2 diabetes mellitus without complications
CPT/HCPCS: 71046; J3490; S0119; J7512; J7620; 94640; 99283

== ENCOUNTER 2019-07-03 21:15 | Emergency (ER) | payer MEDICAID ==
[2019-07-03] MEDS ORDERED: IPRATROPIUM/ALBUTEROL 0.5-2.5 MG/3 ML AMPUL NEB ONE (22:05)
[2019-07-03] MEDS ORDERED: METHYLPREDNISOLONE INJ 125 MG/2 ML SDV IV ONE (22:05)
--- NOTE | 2019-07-03 22:10 | ER Document Report ---
ED Medical Screen (RME) - General Chief Complaint: Shortness Of Breath Stated Complaint: HEART RACING/ABDOMINAL ISSUE Time Seen by Provider: 07/03/19 22:01 Primary Care Provider: GIANCARLO CHANCE MD [Primary Care Provider] - Follow up as needed Notes: Patient is a 33-year-old male with a history of asthma who presents emergency department with shortness of breath. Patient states that he has been coughing up clear phlegm. Patient states that he was seen here yesterday and has not been able to fill his prednisone. He also has not been on his inhaled corticosteroid medication. Exam: Decreased breath sounds noted throughout all lung garcia. I have greeted and performed a rapid initial assessment of this patient. A comprehensive ED assessment and evaluation of the patient, analysis of test results and completion of medical decision making process will be conducted by an additional ED providers. TRAVEL OUTSIDE OF THE [place] IN LAST 30 DAYS: No - Related Data Allergies/Adverse Reactions: No Known Allergies Allergy (Verified 07/03/19 21:59) Home Medications: Medications updated Past Medical History - Social History Frequency of alcohol use: None Drug Abuse: None Family history: Reviewed & Not Pertinent Pulmonary Medical History: Reports: Hx Asthma - not on home O2, Hx Bronchitis Endocrine Medical History: Reports: Hx Diabetes Mellitus Type 2. Denies: Hx Diabetes Mellitus Type 1 Renal/ Medical History: Denies: Hx Peritoneal Dialysis GI Medical History: Reports: Hx Irritable Bowel - constipation Musculoskeltal Medical History: Reports Hx Arthritis, Reports Hx Musculoskeletal Trauma Psychiatric Medical History: Reports: Hx Anxiety, Hx Bipolar Disorder, Hx Depression, Hx Personality Disorder, Hx Schizoaffective Disorder, Hx Schizophrenia Traumatic Medical History: Reports: Hx Fractures - Finger fracture Past Surgical History: Reports: Hx Abdominal Surgery, Hx Appendectomy, Hx Cholecystectomy, Hx Orthopedic Surgery - fractured finger - Immunizations Immunizations up to date: Yes Hx Diphtheria, Pertussis, Tetanus Vaccination: Yes - 2012 Physical Exam - Vital signs Vitals: Temp Pulse Resp BP Pulse Ox 99 F 99 20 131/78 H 89 L 07/03/19 22:02 07/03/19 22:02 07/03/19 22:02 07/03/19 22:02 07/03/19 22:02 Course - Vital Signs Vital signs: Temp Pulse Resp BP Pulse Ox 99 F 99 20 131/78 H 89 L 07/03/19 22:02 07/03/19 22:02 07/03/19 22:02 07/03/19 22:02 07/03/19 22:02 Doctor's Discharge - Discharge Referrals: GIANCARLO CHANCE MD [Primary Care Provider] - Follow up as needed
--- NOTE | 2019-07-03 23:05 | RADIOLOGY REPORT (SQ) ---
EXAM DESCRIPTION: XR CHEST 1 VIEW COMPLETED DATE/TME: 07/03/2019 22:06 CLINICAL HISTORY: shortness of breath COMPARISON: 07/02/2019 FINDINGS: Single frontal view of the chest. Cardiomediastinal silhouette: Normal size and contour. Lungs: No consolidation, pneumothorax, or pleural effusion. Bones: No acute osseous abnormality. Upper abdomen: No abnormality identified. IMPRESSION: 1. No acute pulmonary process identified.
[2019-07-03] MEDS ORDERED: DEXAMETHASONE SOD PHOS INJ 10 MG/1 ML VIAL IM ONE (23:44)
--- NOTE | 2019-07-03 23:52 | ER Document Report ---
ED General - General Chief Complaint: Shortness Of Breath Stated Complaint: HEART RACING/ABDOMINAL ISSUE Time Seen by Provider: 07/03/19 22:01 Primary Care Provider: GIANCARLO CHANCE MD [Primary Care Provider] - Follow up as needed TRAVEL OUTSIDE OF THE [place] IN LAST 30 DAYS: No - HPI Notes: Mr. Huddleston is an 33-year-old male resenting with a chief complaint of wheezing. The patient is well-known to this facility. He is currently homeless and has had multiple visits for asthma. He says he is a non-smoker but has a lot of exposure to secondhand smoke. He was seen here within the last 24 hours and was prescribed prednisone but he is not filled the prescription. He still has a rescue inhaler and is using this. Patient denies fever, chills or purulent sputum but says that he is coughing up some clear mucus. Patient complains of intermittent chest tightness when he has difficulty breathing. - Related Data Allergies/Adverse Reactions: No Known Allergies Allergy (Verified 07/03/19 21:59) Home Medications: Medications updated Past Medical History - Social History Smoking Status: Never Smoker Frequency of alcohol use: None Drug Abuse: None Family History: Reviewed & Not Pertinent Patient has suicidal ideation: No Patient has homicidal ideation: No Pulmonary Medical History: Reports: Hx Asthma - not on home O2, Hx Bronchitis Endocrine Medical History: Reports: Hx Diabetes Mellitus Type 2. Denies: Hx Diabetes Mellitus Type 1 Renal/ Medical History: Denies: Hx Peritoneal Dialysis GI Medical History: Reports: Hx Irritable Bowel - constipation Musculoskeletal Medical History: Reports Hx Arthritis, Reports Hx Musculoskeletal Trauma Psychiatric Medical History: Reports: Hx Anxiety, Hx Bipolar Disorder, Hx Depression, Hx Personality Disorder, Hx Schizoaffective Disorder, Hx Schizophrenia Traumatic Medical History: Reports: Hx Fractures - Finger fracture Past Surgical History: Reports: Hx Abdominal Surgery, Hx Appendectomy, Hx Cholecystectomy, Hx Orthopedic Surgery - fractured finger - Immunizations Immunizations up to date: Yes Hx Diphtheria, Pertussis, Tetanus Vaccination: Yes - 2012 Hx Pneumococcal Vaccination: 08/23/00 Review of Systems - Review of Systems Notes: Constitutional: Negative for fever. HENT: Negative for sore throat. Eyes: Negative for visual changes. Cardiovascular: Negative for chest pain. Respiratory: As per HPI. Gastrointestinal: Negative for abdominal pain, vomiting or diarrhea. Genitourinary: Negative for dysuria. Musculoskeletal: Negative for back pain. Skin: Negative for rash. Neurological: Negative for headaches, weakness or numbness. 10 point ROS negative except as marked above and in HPI. Physical Exam - Vital signs Vitals: Temp Pulse Resp BP Pulse Ox 99 F 99 20 131/78 H 89 L 07/03/19 22:02 07/03/19 22:02 07/03/19 22:02 07/03/19 22:02 07/03/19 22:02 Notes: GENERAL: Well-developed well-nourished appearing in no acute distress. SKIN: Good turgor no rashes. HEAD: Normocephalic atraumatic. EYES: PERRLA. Conjunctivae and sclerae clear. EARS: CANALS AND TMS CLEAR. NOSE: CLEAR. MOUTH: Moist mucosa. Good dentition. No stridor or edema. No drooling. NECK: Supple. No masses or thyromegaly. No adenopathy. Carotids 2+ without bruits. No JVD. BACK: Symmetrical without tenderness. CHEST: Respirations unlabored. Scattered wheezes and rhonchi bilaterally.. HEART: Regular rhythm. No murmur gallop or rub. ABDOMEN: Soft nontender without masses, organomegaly or rebound. Bowel sounds normally active. No bruits. GENITALIA: Deferred. EXTREMITIES: No edema. No calf tenderness. Cap refill less than 1.5 seconds. Dorsalis pedis and posterior tibial pulses 3+ and symmetrical. NEUROLOGICAL: GCS 15. Alert and oriented x3. Normal gait. Fluent speech. Cranial nerves II through XII intact. Sensorimotor and cerebellar normal. Normal tone. Psychiatric: Unusual affect consistent with known history of schizophrenia. He is not currently hallucinating or responding to internal stimuli. Course - Re-evaluation Re-evalutation: 07/03/19 23:53 This man received a nebulizer treatment prior to my evaluation. Chest x-ray is normal. EKG is unchanged from baseline and appears to show some early repolarization. They also given some IV Solu-Medrol. We note that he has not filled oral steroids he is been given previously. On this basis I am going to go ahead and give him a dose of IM Decadron since he is homeless and will not fill the prescription tonight. He appears very stable for discharge at this time. - Vital Signs Vital signs: Temp Pulse Resp BP Pulse Ox 99 F 99 20 131/78 H 89 L 07/03/19 22:02 07/03/19 22:02 07/03/19 22:02 07/03/19 22:02 07/03/19 22:02 - Diagnostic Test Radiology reviewed: Reports reviewed Discharge - Discharge Clinical Impression: Asthma exacerbation Qualifiers: Asthma severity: mild Asthma persistence: unspecified Qualified Code(s): J45.901 - Unspecified asthma with (acute) exacerbation Schizophrenia Qualifiers: Schizophrenia type: unspecified Qualified Code(s): F20.9 - Schizophrenia, unspecified Condition: Stable Disposition: HOME, SELF-CARE Additional Instructions: Return here as needed for new or worsening symptoms. Continue to use your inhalers as previously prescribed. Referrals: GIANCARLO CHANCE MD [Primary Care Provider] - Follow up as needed
--- NOTE | 2019-07-04 00:09 | EKG REPORT ---
SEVERITY:- ABNORMAL ECG - SINUS RHYTHM ST ELEV, PROBABLE NORMAL EARLY REPOL PATTERN : Confirmed by: Ann Brewer MD 04-Jul-2019 00:08:00
[2019-07-04 00:47] VITALS: BP 111/67
== END 2019-07-04 00:58 | disposition home or self-care (01) ==
LOC: ER 21:15
DX: J45.901 Unspecified asthma with (acute) exacerbation (principal); F20.9 Schizophrenia, unspecified; R06.02 Shortness of breath; R00.2 Palpitations; Z59.0 Homelessness; R07.9 Chest pain, unspecified; E11.9 Type 2 diabetes mellitus without complications
CPT/HCPCS: 93005; 71045; 93010; J2930; J1100; J7620; 94640; 96372; 96374; 99285

== ENCOUNTER 2019-07-07 19:19 | Emergency (ER) | payer MEDICAID ==
--- NOTE | 2019-07-07 20:21 | ER Document Report ---
ED Medical Screen (RME) - General Chief Complaint: Bloody Stools Stated Complaint: BLOOD IN STOOL Time Seen by Provider: 07/07/19 20:09 Primary Care Provider: GIANCARLO CHANCE MD [Primary Care Provider] - Follow up as needed Notes: Patient is a 33-year-old male who presents to emergency department with a chief complaint of blood in his stool. Patient reports this been intermittent over the past 2 days. Patient reports he is not constipated and is not having diarrhea. Patient denies abdominal pain. Patient reports nausea without vomiting. TRAVEL OUTSIDE OF THE [place] IN LAST 30 DAYS: No - Related Data Allergies/Adverse Reactions: No Known Allergies Allergy (Verified 07/03/19 21:59) Home Medications: albuterol inhaler. steriod inhaler Past Medical History - Social History Family history: Reviewed & Not Pertinent Pulmonary Medical History: Reports: Hx Asthma - not on home O2, Hx Bronchitis Endocrine Medical History: Reports: Hx Diabetes Mellitus Type 2. Denies: Hx Diabetes Mellitus Type 1 Renal/ Medical History: Denies: Hx Peritoneal Dialysis GI Medical History: Reports: Hx Irritable Bowel - constipation Musculoskeltal Medical History: Reports Hx Arthritis, Reports Hx Musculoskeletal Trauma Psychiatric Medical History: Reports: Hx Anxiety, Hx Bipolar Disorder, Hx Depression, Hx Personality Disorder, Hx Schizoaffective Disorder, Hx Schizophrenia Traumatic Medical History: Reports: Hx Fractures - Finger fracture Past Surgical History: Reports: Hx Abdominal Surgery, Hx Appendectomy, Hx Cholecystectomy, Hx Orthopedic Surgery - fractured finger - Immunizations Immunizations up to date: Yes Hx Diphtheria, Pertussis, Tetanus Vaccination: Yes - 2012 Physical Exam - Vital signs Vitals: Temp Pulse Resp BP Pulse Ox 98.8 F 83 18 125/61 98 07/07/19 19:25 07/07/19 19:25 07/07/19 19:25 07/07/19 19:25 07/07/19 19:25 Course - Re-evaluation Re-evalutation: 07/07/19 20:20 I have greeted and performed a rapid initial assessment of this patient. A comprehensive ED assessment and evaluation of the patient, analysis of test results and completion of the medical decision making process will be conducted by additional ED providers. - Vital Signs Vital signs: Temp Pulse Resp BP Pulse Ox 98.8 F 83 18 125/61 98 07/07/19 19:25 07/07/19 19:25 07/07/19 19:25 07/07/19 19:25 07/07/19 19:25 Doctor's Discharge - Discharge Referrals: GIANCARLO CHANCE MD [Primary Care Provider] - Follow up as needed
[2019-07-07 20:51] LABS: ABSOLUTE EOSINOPHILS # (AUTO) 0.7 10^3/uL (0.0-0.6); ABSOLUTE LYMPHOCYTES (AUTO) 1.5 10^3/uL (0.5-4.7); ABSOLUTE MONOCYTES (AUTO) 0.3 10^3/uL (0.1-1.4); ABSOLUTE NEUT (AUTO) 2.2 10^3/uL (1.7-8.2); BASOPHILS % (AUTO) 0.1 % (0-2); EOSINOPHILS % (AUTO) 14.4 % (0-6); HEMATOCRIT 42.2 % (37.9-51.0); HEMOGLOBIN 13.9 g/dL (13.5-17.0); LYMPHOCYTES % (AUTO) 31.6 % (13-45); MEAN CORPUSCULAR HEMOGLOBIN 26.3 pg (27.0-33.4); MEAN CORPUSCULAR HGB CONC 32.9 g/dL (32.0-36.0); MEAN CORPUSCULAR VOLUME 80 fl (80-97); MONOCYTES % (AUTO) 7.4 % (3-13); PLATELET COUNT 250 10^3/uL (150-450); RED BLOOD COUNT 5.28 10^6/uL (4.35-5.55); SEGMENTED NEUTROPHILS % (AUTO) 46.5 % (42-78); TOTAL CELLS COUNTED % (AUTO) 100 %; WHITE BLOOD COUNT 4.7 10^3/uL (4.0-10.5)
[2019-07-07 21:08] LABS: ALBUMIN 4.3 g/dL (3.5-5.0); ALKALINE PHOSPHATASE 76 U/L (38-126); ANION GAP 5 (5-19); ASPARTATE AMINO TRANSFERASE 22 U/L (17-59); BILIRUBIN,TOTAL 0.9 mg/dL (0.2-1.3); BLOOD UREA NITROGEN 14 mg/dL (7-20); CALCIUM 9.3 mg/dL (8.4-10.2); CARBON DIOXIDE 33 mmol/L (22-30); CHLORIDE 103 mmol/L (98-107); GLUCOSE 80 mg/dL (75-110); POTASSIUM 4.1 mmol/L (3.6-5.0); TOTAL PROTEIN 7.1 g/dL (6.3-8.2)
[2019-07-07 22:46] VITALS: BP 129/79
--- NOTE | 2019-07-07 23:13 | ER Document Report ---
ED GI Bleed / Rectal Pain - General Chief Complaint: Bloody Stools Stated Complaint: BLOOD IN STOOL Time Seen by Provider: 07/07/19 20:09 Primary Care Provider: GIANCARLO CHANCE MD [Primary Care Provider] - Follow up as needed Notes: E NOTE: Patient is a 33-year-old male who presents to emergency department with a chief complaint of blood in his stool. Patient reports this been intermittent over the past 2 days. Patient reports he is not constipated and is not having diarrhea. Patient denies abdominal pain. Patient reports nausea without vomiting. MY HPI: Patient voices he does have a history of external hemorrhoids. States he is unsure if he currently has one. He is denying any constipation or diarrhea. He is denying any abdominal pain. Reports to E provider he was nauseous but is denying any nausea at this time. States over the past 2 days he has only had one episode of "reddish/brown poop". Patient is denying any melena or bright red blood per rectum. TRAVEL OUTSIDE OF THE [place] IN LAST 30 DAYS: No - Related Data Allergies/Adverse Reactions: No Known Allergies Allergy (Verified 07/03/19 21:59) Home Medications: albuterol inhaler. steriod inhaler Past Medical History - General Information source: Patient - Social History Smoking Status: Never Smoker Family History: Reviewed & Not Pertinent Patient has suicidal ideation: No Patient has homicidal ideation: No Pulmonary Medical History: Reports: Hx Asthma - not on home O2, Hx Bronchitis Endocrine Medical History: Reports: Hx Diabetes Mellitus Type 2. Denies: Hx Diabetes Mellitus Type 1 Renal/ Medical History: Denies: Hx Peritoneal Dialysis GI Medical History: Reports: Hx Irritable Bowel - constipation Musculoskeletal Medical History: Reports Hx Arthritis, Reports Hx Musculoskeletal Trauma Psychiatric Medical History: Reports: Hx Anxiety, Hx Bipolar Disorder, Hx Depression, Hx Personality Disorder, Hx Schizoaffective Disorder, Hx Schizophrenia Traumatic Medical History: Reports: Hx Fractures - Finger fracture Past Surgical History: Reports: Hx Abdominal Surgery, Hx Appendectomy, Hx Cholecystectomy, Hx Orthopedic Surgery - fractured finger - Immunizations Immunizations up to date: Yes Hx Diphtheria, Pertussis, Tetanus Vaccination: Yes - 2012 Hx Pneumococcal Vaccination: 08/23/00 Review of Systems - Review of Systems Constitutional: denies: Fever EENT: No symptoms reported Cardiovascular: No symptoms reported Respiratory: No symptoms reported Gastrointestinal: See HPI Genitourinary: No symptoms reported Male Genitourinary: No symptoms reported Musculoskeletal: No symptoms reported Skin: No symptoms reported Hematologic/Lymphatic: denies: Anemia, Blood clots, Easy bleeding, Easy bruising Neurological/Psychological: No symptoms reported Physical Exam - Vital signs Vitals: Temp Pulse Resp BP Pulse Ox 98.8 F 83 18 125/61 98 07/07/19 19:25 07/07/19 19:25 07/07/19 19:25 07/07/19 19:25 07/07/19 19:25 - Notes Notes: GENERAL: Alert, interacts well. No acute distress. HEAD: Normocephalic, atraumatic. EYES: Pupils equal, round, and reactive to light. Extraocular movements intact. ENT: Oral mucosa moist, tongue midline. NECK: Full range of motion. Supple. Trachea midline. LUNGS: Clear to auscultation bilaterally, no wheezes, rales, or rhonchi. No respiratory distress. HEART: Regular rate and rhythm. No murmur ABDOMEN: Soft, non-tender. Non-distended. Bowel sounds present in all 4 bhakti drants. EXTREMITIES: Moves all 4 extremities spontaneously. No edema, normal radial and dorsalis pedis pulses bilaterally. No cyanosis. BACK: no cervical, thoracic, lumbar midline tenderness. No saddle anesthesia, normal distal neurovascular exam. NEUROLOGICAL: Alert and oriented x3. Normal speech. . PSYCH: Normal affect, normal mood. SKIN: Warm, dry, normal turgor. No rashes or lesions noted. 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 No anal fissures noted. Brown stool noted on examination, no melena or bright red blood per rectum. Course - Re-evaluation Re-evalutation: Laboratory 07/07/19 07/07/19 07/07/19 20:32 20:32 22:58 WBC 4.7 RBC 5.28 Hgb 13.9 Hct 42.2 MCV 80 MCH 26.3 L MCHC 32.9 RDW 14.0 Plt Count 250 Lymph % (Auto) 31.6 [place] % (Auto) 7.4 Eos % (Auto) 14.4 H Baso % (Auto) 0.1 Absolute Neuts (auto) 2.2 Absolute Lymphs (auto) 1.5 Absolute Monos (auto) 0.3 Absolute Eos (auto) 0.7 H Absolute Basos (auto) 0.0 Seg Neutrophils % 46.5 Sodium 141.1 Potassium 4.1 Chloride 103 Carbon Dioxide 33 H Anion Gap 5 BUN 14 Creatinine 0.88 Est GFR ( Amer) > 60 Est GFR (MDRD) Non-Af > 60 Glucose 80 Calcium 9.3 Total Bilirubin 0.9 Direct Bilirubin 0.0 Neonat Total Bilirubin Not Reportable Neonat Direct Bilirubin Not Reportable Neonat Indirect Bili Not Reportable AST 22 ALT 11 Alkaline Phosphatase 76 Total Protein 7.1 Albumin 4.3 POC Stool Occult Blood POSITIVE Patient's stool was positive for occult blood. No bright red blood per rectum, no melena seen. Patient's hemoglobin and hematocrit are stable. I discussed with him need for close follow-up with gastroenterology. Patient continues to deny any abdominal pain. Hemodynamically stable, stable for discharge. - Vital Signs Vital signs: Temp Pulse Resp BP Pulse Ox 98.4 F 76 17 129/79 H 99 07/07/19 22:45 07/07/19 22:45 07/07/19 22:45 07/07/19 22:45 07/07/19 22:45 - Laboratory Result Diagrams: 07/07/19 20:32 07/07/19 20:32 Laboratory results interpreted by me: 07/07/19 07/07/19 20:32 20:32 MCH 26.3 L Eos % (Auto) 14.4 H Absolute Eos (auto) 0.7 H Carbon Dioxide 33 H Discharge - Discharge Clinical Impression: Rectal bleeding Condition: Stable Disposition: HOME, SELF-CARE Instructions: Rectal Bleeding, Unclear Cause ([facility]) Additional Instructions: As we discussed you have been seen and treated in the emergency department for rectal bleeding. You need to follow-up with gastroenterology for colonoscopy. Phone numbers have been provided in this packet. Please also return to the emergency department should he get lightheaded, dizzy, weak, or have any other concerns. Referrals: GIANCARLO CHANCE MD [Primary Care Provider] - Follow up as needed ZAYRA HENSLEY MD [ACTIVE STAFF] - Follow up as needed
== END 2019-07-07 23:22 | disposition home or self-care (01) ==
LOC: ER 19:19
DX: K62.5 Hemorrhage of anus and rectum (principal); J45.909 Unspecified asthma, uncomplicated; E11.9 Type 2 diabetes mellitus without complications; Z79.899 Other long term (current) drug therapy; Z79.51 Long term (current) use of inhaled steroids
CPT/HCPCS: 36415; 80053; 85025; 99283

== ENCOUNTER 2019-07-10 23:13 | Emergency (ER) | payer MEDICAID ==
[2019-07-10 23:53] VITALS: BP 114/72
--- NOTE | 2019-07-11 01:58 | ER Document Report ---
ED General - General Chief Complaint: Skin Problem Stated Complaint: POSSIBLE ABSCESS Time Seen by Provider: 07/11/19 01:38 Primary Care Provider: GIANCARLO CHANCE MD [Primary Care Provider] - Follow up as needed TRAVEL OUTSIDE OF THE [place] IN LAST 30 DAYS: No - HPI Notes: Mr. Huddleston is a 34-year-old male schizophrenic frequent visitor to this emergency department who comes in tonight with several concerns. Patient states that he found a cheeseburger partially wrap lying on the street and because he was hungry he decided to eat this. He wants to know if there is any possibility this could make him sick. He currently denies nausea, vomiting, fever, chills or diarrhea. Patient also has a small cyst on the right side of his face and he is concerned this might be an abscess that needs to be drained. Patient also says that in the past he is occasionally seen some bright red rectal bleeding when he has a bowel movement. He has not seen any bleeding recently but wants to know if this needs to be checked tonight. Onset - Related Data Allergies/Adverse Reactions: No Known Allergies Allergy (Verified 07/03/19 21:59) Home Medications: albuterol Past Medical History - Social History Smoking Status: Never Smoker Chew tobacco use (# tins/day): No Drug Abuse: None Family History: Reviewed & Not Pertinent Patient has suicidal ideation: No Patient has homicidal ideation: No Pulmonary Medical History: Reports: Hx Asthma - not on home O2, Hx Bronchitis Endocrine Medical History: Reports: Hx Diabetes Mellitus Type 2. Denies: Hx Diabetes Mellitus Type 1 Renal/ Medical History: Denies: Hx Peritoneal Dialysis GI Medical History: Reports: Hx Irritable Bowel - constipation Musculoskeletal Medical History: Reports Hx Arthritis, Reports Hx Musculoskeletal Trauma Psychiatric Medical History: Reports: Hx Anxiety, Hx Bipolar Disorder, Hx Depression, Hx Personality Disorder, Hx Schizoaffective Disorder, Hx Schizophrenia Traumatic Medical History: Reports: Hx Fractures - Finger fracture Past Surgical History: Reports: Hx Abdominal Surgery, Hx Appendectomy, Hx Cholecystectomy, Hx Orthopedic Surgery - fractured finger - Immunizations Immunizations up to date: Yes Hx Diphtheria, Pertussis, Tetanus Vaccination: Yes - 2012 Hx Pneumococcal Vaccination: 08/23/00 Review of Systems - Review of Systems Notes: Constitutional: Negative for fever. HENT: Negative for sore throat. Eyes: Negative for visual changes. Cardiovascular: Negative for chest pain. Respiratory: Negative for shortness of breath. Gastrointestinal: Negative for abdominal pain, vomiting or diarrhea. Genitourinary: Negative for dysuria. Musculoskeletal: Negative for back pain. Skin: Negative for rash. Neurological: Negative for headaches, weakness or numbness. 10 point ROS negative except as marked above and in HPI. Physical Exam - Vital signs Vitals: Temp Pulse Resp BP Pulse Ox 98.3 F 87 18 114/72 98 07/10/19 23:52 07/10/19 23:52 07/10/19 23:52 07/10/19 23:52 07/10/19 23:52 - Notes Notes: GENERAL: Well-developed well-nourished appearing in no acute distress. SKIN: Good turgor no rashes. Patient has what appears to be a solitary ingrown facial hair adjacent to the corner of his lip on the right. This is not red, inflamed, tender or draining at this time. HEAD: Normocephalic atraumatic. EYES: PERRLA. Conjunctivae and sclerae clear. EARS: CANALS AND TMS CLEAR. NOSE: CLEAR. MOUTH: Moist mucosa. Good dentition. No stridor or edema. No drooling. NECK: Supple. No masses or thyromegaly. No adenopathy. Carotids 2+ without bruits. No JVD. BACK: Symmetrical without tenderness. CHEST: Respirations unlabored. Breath sounds clear and symmetrical. HEART: Regular rhythm. No murmur gallop or rub. ABDOMEN: Soft nontender without masses, organomegaly or rebound. Bowel sounds normally active. No bruits. GENITALIA: Deferred. EXTREMITIES: No edema. No calf tenderness. Cap refill less than 1.5 seconds. Dorsalis pedis and posterior tibial pulses 3+ and symmetrical. NEUROLOGICAL: GCS 15. Alert and oriented x3. Normal gait. Fluent speech. Cranial nerves II through XII intact. Sensorimotor and cerebellar normal. Normal tone. Course - Re-evaluation Re-evalutation: 07/11/19 01:57 I reassured patient as to his current concerns and provided name of the [facility] for follow-up. He can return here also as needed. - Vital Signs Vital signs: Temp Pulse Resp BP Pulse Ox 98.3 F 87 18 114/72 98 07/10/19 23:52 07/10/19 23:52 07/10/19 23:52 07/10/19 23:52 07/10/19 23:52 Discharge - Discharge Clinical Impression: Cutaneous cyst Condition: Stable Disposition: HOME, SELF-CARE Referrals: GIANCARLO CHANCE MD [Primary Care Provider] - Follow up as needed
== END 2019-07-11 02:25 | disposition home or self-care (01) ==
LOC: ER 23:13
DX: L72.9 Follicular cyst of the skin and subcutaneous tissue, unspecified (principal); Z90.49 Acquired absence of other specified parts of digestive tract
CPT/HCPCS: 99283

== ENCOUNTER 2019-07-15 07:20 | Emergency (ER) | payer MEDICAID ==
[2019-07-15 07:41] VITALS: BP 123/65
--- NOTE | 2019-07-15 09:04 | ER Document Report ---
ED General - General Chief Complaint: Ear Pain Stated Complaint: JAW PRESSURE/EAR PRESSURE Time Seen by Provider: 07/15/19 08:55 Primary Care Provider: GIANCARLO CHANCE MD [Primary Care Provider] - Follow up as needed Information source: Patient, [facility] Records Notes: This 34-year-old schizophrenic patient who comes emergency room every few days with vague frequently nonexistent complaints, comes emergency room today complaining of pressure in his right face ear and throat which occurs when he puffs out his cheeks and tries to shave. He states that symptom has now cleared up and is no longer a problem. He was actually here about 2 days ago with that same complaint. He is also complaining of bumps on his arms which he has noted since he began sleeping on a new couch that was brought into the home, unboxed, then put together. He has not been putting a sheet or anything down to keep his skin from contacting the new fabric. He states that the bumps do not itch or hurt. He states no one in the house has complained of any sort of insect, flea or tick bites. TRAVEL OUTSIDE OF THE [place] IN LAST 30 DAYS: No - Related Data Allergies/Adverse Reactions: No Known Allergies Allergy (Verified 07/03/19 21:59) Home Medications: albuterol Past Medical History - General Information source: Patient - Social History Smoking Status: Never Smoker Cigarette use (# per day): No Chew tobacco use (# tins/day): No Smoking Education Provided: No Frequency of alcohol use: None Drug Abuse: None Occupation: Unemployed Lives with: Friend Family History: Reviewed & Not Pertinent Patient has suicidal ideation: No Patient has homicidal ideation: No Pulmonary Medical History: Reports: Hx Asthma - not on home O2, Hx Bronchitis GI Medical History: Reports: Hx Irritable Bowel - constipation Musculoskeletal Medical History: Reports Hx Arthritis, Reports Hx Musculoskeleta l Trauma Psychiatric Medical History: Reports: Hx Anxiety, Hx Bipolar Disorder, Hx Depression, Hx Personality Disorder, Hx Schizoaffective Disorder, Hx Schizophrenia Traumatic Medical History: Reports: Hx Fractures - Finger fracture Past Surgical History: Reports: Hx Abdominal Surgery, Hx Appendectomy, Hx Cholecystectomy, Hx Orthopedic Surgery - fractured finger - Immunizations Immunizations up to date: Yes Hx Diphtheria, Pertussis, Tetanus Vaccination: Yes - 2012 Hx Pneumococcal Vaccination: 08/23/00 Review of Systems - Review of Systems Constitutional: No symptoms reported EENT: See HPI Cardiovascular: No symptoms reported Respiratory: No symptoms reported Gastrointestinal: No symptoms reported Genitourinary: No symptoms reported Musculoskeletal: No symptoms reported Skin: See HPI Hematologic/Lymphatic: No symptoms reported Neurological/Psychological: No symptoms reported Physical Exam - Vital signs Vitals: Temp Pulse Resp BP Pulse Ox 97.8 F 65 18 123/65 99 07/15/19 07:31 07/15/19 07:31 07/15/19 07:31 07/15/19 07:31 07/15/19 07:31 - HEENT Head: Normocephalic, Atraumatic Eyes: Normal Pupils: PERRL Notes: Patient has a barba. There is no pseudofolliculitis bar by noted. There is no swelling or infected hair follicles noted. - Respiratory Respiratory status: No respiratory distress - Cardiovascular Rhythm: Regular - Abdominal Inspection: Normal - Back Back: Normal - Extremities General upper extremity: Other - Both volar forearms have a few small bumps scattered from the wrists to the elbows. They are not red or inflamed or ulcerated. This could be a contact type rash, could be a viral type rash, could be related to something such as flea bites. General lower extremity: Normal inspection - Neurological Neuro grossly intact: Yes - Psychological Associated symptoms: Normal affect, Normal mood - Skin Skin Temperature: Warm Skin Moisture: Dry Skin Color: Normal Course - Vital Signs Vital signs: Temp Pulse Resp BP Pulse Ox 97.8 F 65 18 123/65 99 07/15/19 07:31 07/15/19 07:31 07/15/19 07:31 07/15/19 07:31 07/15/19 07:31 Discharge - Discharge Clinical Impression: Rash and nonspecific skin eruption Condition: Stable Disposition: HOME, SELF-CARE Additional Instructions: Put a sheet down on the couch before laying on it to sleep and see if that stops the rash on your arms. Follow-up with Dr. Chance if not improving. Referrals: GIANCARLO CHANCE MD [Primary Care Provider] - Follow up as needed
== END 2019-07-15 09:09 | disposition home or self-care (01) ==
LOC: ER 07:20
DX: R21 Rash and other nonspecific skin eruption (principal); Z90.49 Acquired absence of other specified parts of digestive tract; F20.9 Schizophrenia, unspecified
CPT/HCPCS: 99283

== ENCOUNTER 2019-07-16 08:10 | Emergency (ER) | payer MEDICAID ==
[2019-07-16 08:28] VITALS: BP 116/65
--- NOTE | 2019-07-16 09:30 | ER Document Report ---
HPI - HPI Time Seen by Provider: 07/16/19 09:18 Pain Level: Denies Context: 34-year-old male with asthma and schizophrenia presents to the emergency department with concern that he had esophageal damage after swallowing something that he did not chew enough. Patient states about a week ago he was eating at [employer] and 1 of the sliders he ate he did not chew it down compared to the others and had a little discomfort when swallowing. Patient states that he has had intermittent throat pain since then. Patient is able to swallow, drink water and fluids, consume solids, and has had regular bowel movements. Patient states he is also had some mild rib pain at the lower ribs. No fevers or chills, no nausea or vomiting, no blood in his stool. - REPRODUCTIVE Reproductive: DENIES: : Past Medical History - Social History Smoking Status: Never Smoker Family History: Reviewed & Not Pertinent Patient has suicidal ideation: No Patient has homicidal ideation: No Pulmonary Medical History: Reports: Hx Asthma - not on home O2, Hx Bronchitis Endocrine Medical History: Reports: Hx Diabetes Mellitus Type 2. Denies: Hx Diabetes Mellitus Type 1 Renal/ Medical History: Denies: Hx Peritoneal Dialysis GI Medical History: Reports: Hx Irritable Bowel - constipation Musculoskeletal Medical History: Reports Hx Arthritis, Reports Hx Musculoskeletal Trauma Psychiatric Medical History: Reports: Hx Anxiety, Hx Bipolar Disorder, Hx Depression, Hx Personality Disorder, Hx Schizoaffective Disorder, Hx Schizophrenia Traumatic Medical History: Reports: Hx Fractures - Finger fracture Past Surgical History: Reports: Hx Abdominal Surgery, Hx Appendectomy, Hx Cholecystectomy, Hx Orthopedic Surgery - fractured finger - Immunizations Immunizations up to date: Yes Hx Diphtheria, Pertussis, Tetanus Vaccination: Yes - 2012 Hx Pneumococcal Vaccination: 08/23/00 Vertical Provider Document - CONSTITUTIONAL Notes: PHYSICAL EXAMINATION: Reviewed vital signs and charting by RN GENERAL: Alert, interacts well. No acute distress. HEAD: Normocephalic, atraumatic. EYES: Pupils equal and round. Extraocular movements intact. ENT: Oral mucosa moist, tongue midline. NECK: Full range of motion. Trachea midline. LUNGS: Clear to auscultation bilaterally, no wheezes, rales, or rhonchi. No respiratory distress. HEART: Regular rate and rhythm. No murmur ABDOMEN: soft, non-tender. No distention. Bowel sounds present EXTREMITIES: Moves all 4 extremities spontaneously. No edema, No cyanosis. PSYCH: Normal affect, normal mood. SKIN: Warm, dry, normal turgor. No rashes or lesions noted. - INFECTION CONTROL TRAVEL OUTSIDE OF THE [place] IN LAST 30 DAYS: No Course - Re-evaluation Re-evalutation: 07/16/19 09:27 Well-appearing in no acute distress, lungs clear to auscultation all garcia, there is no focal adventitious sounds concerning for an aspiration, patient is afebrile. I have very low suspicion for foreign body aspiration based on clinical appearance and vital signs. I educated patient that he could possibly be related to some very mild esophageal trauma from swallowing or it simply could be a viral syndrome as he was coughing and had rhinorrhea. Patient is stable for discharge. - Vital Signs Vital signs: Temp Pulse Resp BP Pulse Ox 97.7 F 68 18 116/65 96 07/16/19 08:27 07/16/19 08:27 07/16/19 08:27 07/16/19 08:27 07/16/19 08:27 Discharge - Discharge Clinical Impression: Sore throat Condition: Good Disposition: HOME, SELF-CARE Additional Instructions: You were seen in the emergency department today for a sore throat. Your exam was reassuring and I do not suspect that you aspirated any food or you have a small bowel obstruction. I recommend trying some cough drops to help soothe your sore throat. Please follow-up with your primary care. Please return to the emergency department if you develop severe acute shortness of breath, persistent vomiting with inability to have a bowel movement, high fevers, or you have any other concerning symptoms. Referrals: GIANCARLO CHANCE MD [Primary Care Provider] - Follow up as needed
== END 2019-07-16 09:46 | disposition home or self-care (01) ==
LOC: ER 08:10
DX: J02.9 Acute pharyngitis, unspecified (principal); R13.19 Other dysphagia; E11.9 Type 2 diabetes mellitus without complications; Z90.49 Acquired absence of other specified parts of digestive tract
CPT/HCPCS: 99282

== ENCOUNTER 2019-07-21 04:33 | Emergency (ER) | payer MEDICAID ==
[2019-07-21] MEDS ORDERED: MAG HYDROX/AL HYDROX/SIMETH SUSP 30 ML UDCUP PO ONE (06:01)
[2019-07-21] MEDS ORDERED: LIDOCAINE 2% VISCOUS SOLN 20 ML UDCUP PO ONE (06:02)
[2019-07-21] MEDS ORDERED: METOCLOPRAMIDE HCL ORAL SOLN 10 MG/10 ML UDCUP PO ONE (06:02)
--- NOTE | 2019-07-21 06:18 | ER Document Report ---
HPI - HPI Time Seen by Provider: 07/21/19 05:16 Pain Level: Denies Notes: Patient is a 34-year-old male presenting to the emergency department chief complaint of burning in the middle of his chest. Patient reports history of indigestion. He denies any chest pain, nausea, vomiting or diarrhea. Denies any recent illness, shortness of breath or wheezing. - REPRODUCTIVE Reproductive: DENIES: : Past Medical History - General Information source: Patient - Social History Smoking Status: Never Smoker Family History: Reviewed & Not Pertinent Patient has suicidal ideation: No Patient has homicidal ideation: No Pulmonary Medical History: Reports: Hx Asthma - not on home O2, Hx Bronchitis Endocrine Medical History: Reports: Hx Diabetes Mellitus Type 2. Denies: Hx Diabetes Mellitus Type 1 Renal/ Medical History: Denies: Hx Peritoneal Dialysis GI Medical History: Reports: Hx Irritable Bowel - constipation Musculoskeletal Medical History: Reports Hx Arthritis, Reports Hx Musculoskeletal Trauma Psychiatric Medical History: Reports: Hx Anxiety, Hx Bipolar Disorder, Hx Depression, Hx Personality Disorder, Hx Schizoaffective Disorder, Hx Schizophrenia Traumatic Medical History: Reports: Hx Fractures - Finger fracture Past Surgical History: Reports: Hx Abdominal Surgery, Hx Appendectomy, Hx Cholecystectomy, Hx Orthopedic Surgery - fractured finger - Immunizations Immunizations up to date: Yes Hx Diphtheria, Pertussis, Tetanus Vaccination: Yes - 2012 Hx Pneumococcal Vaccination: 08/23/00 Vertical Provider Document - CONSTITUTIONAL Notes: PHYSICAL EXAMINATION: GENERAL: Well-appearing, well-nourished and in no acute distress. HEAD: Atraumatic, normocephalic. EYES: Pupils equal round extraocular movements intact, conjunctiva are normal. ENT: Nares patent, patient swallowing without difficulty. NECK: Normal range of motion LUNGS: No respiratory distress, lung sounds clear and equal bilaterally. Musculoskeletal: Normal range of motion NEUROLOGICAL: Normal speech, normal gait. PSYCH: Normal mood, normal affect. SKIN: Warm, Dry, normal turgor, no rashes or lesions noted. - INFECTION CONTROL TRAVEL OUTSIDE OF THE [place] IN LAST 30 DAYS: No Course - Re-evaluation Re-evalutation: Patient symptoms consistent with gastroesophageal reflux. Will give GI cocktail and discharge home. - Vital Signs Vital signs: Temp Pulse Resp BP Pulse Ox 97.8 F 67 18 142/76 H 100 07/21/19 04:38 07/21/19 04:38 07/21/19 04:38 07/21/19 04:38 07/21/19 04:38 Discharge - Discharge Clinical Impression: GERD (gastroesophageal reflux disease) Qualifiers: Esophagitis presence: esophagitis presence not specified Qualified Code(s): K21.9 - Gastro-esophageal reflux disease without esophagitis Condition: Stable Disposition: HOME, SELF-CARE Additional Instructions: Reflux Disease (GERD) Gastro-Esophageal Reflux Disease (GERD) is caused by stomach acid refluxing back up into the esophagus. The valve at the end of the esophagus may be weak. This is common in persons with a hiatal hernia. GERD symptoms can include indigestion, chest pain, heartburn, or food "sticking." Certain foods, alcohol, and aspirin can make GERD worse. Treatment depends on the severity. Usually, antacids or acid-suppressing medicines are used. When the esophagus is acutely inflamed, the physician will often prescribe membrane-protective drugs such as Carafate. Some patients benefit from medication such as Reglan that tightens the valve at the top of the stomach. Avoid those foods that bring on your symptoms. For many people, these foods are coffee, chocolate, onions, garlic, and carbonated drinks. Don't use alcohol, aspirin, caffeine, or tobacco. Don't eat late at night -- within 4 hours of bedtime. Don't over-eat. If necessary, elevate the head of your bed about 4 inches so that stomach acid will not roll up into your esophagus. Call the doctor if you develop severe chest pain, inability to swallow fl uids, fever, or worsening symptoms. Referrals: GIANCARLO CHANCE MD [Primary Care Provider] - Follow up as needed
[2019-07-21 06:46] VITALS: BP 136/85
== END 2019-07-21 06:45 | disposition home or self-care (01) ==
LOC: ER 04:33
DX: K21.9 Gastro-esophageal reflux disease without esophagitis (principal); J45.909 Unspecified asthma, uncomplicated; E11.9 Type 2 diabetes mellitus without complications
CPT/HCPCS: 99283; J3490 ×3

== ENCOUNTER 2019-07-26 18:29 | Emergency (ER) | payer MEDICAID ==
[2019-07-26 19:18] VITALS: BP 126/68
[2019-07-26] MEDS ORDERED: MAG HYDROX/AL HYDROX/SIMETH SUSP 30 ML UDCUP PO ONE (19:30)
[2019-07-26] MEDS ORDERED: METOCLOPRAMIDE HCL ORAL SOLN 10 MG/10 ML UDCUP PO ONE (19:30)
--- NOTE | 2019-07-26 19:33 | ER Document Report ---
HPI - HPI Time Seen by Provider: 07/26/19 19:28 Notes: Patient is a 34-year-old male well-known to the emergency department presents complaining of feeling a gas bubble in the stomach that is currently resolved. He does not have any sharp pain to his abdomen. He is able to eat and drink without difficulty. He is urinating normally and having normal bowel movements. Denies drug allergies. He has no other concerns or complaints. Patient states that he is otherwise feeling well. Denies any headache, fever, neck pain, URI, sore throat, chest pain, palpitations, syncope, cough, shortness of breath, wheeze, dyspnea, nausea/vomiting/diarrhea, urinary retention, dysuria, hematuria, or rash. - ROS Systems Reviewed and Negative: Yes All other systems reviewed and negative - REPRODUCTIVE Reproductive: DENIES: : Past Medical History - Social History Smoking Status: Unknown if Ever Smoked Family History: Reviewed & Not Pertinent Pulmonary Medical History: Reports: Hx Asthma - not on home O2, Hx Bronchitis Endocrine Medical History: Reports: Hx Diabetes Mellitus Type 2. Denies: Hx Diabetes Mellitus Type 1 Renal/ Medical History: Denies: Hx Peritoneal Dialysis GI Medical History: Reports: Hx Irritable Bowel - constipation Musculoskeletal Medical History: Reports Hx Arthritis, Reports Hx Musculoskeletal Trauma Psychiatric Medical History: Reports: Hx Anxiety, Hx Bipolar Disorder, Hx Depression, Hx Personality Disorder, Hx Schizoaffective Disorder, Hx Schizophrenia Traumatic Medical History: Reports: Hx Fractures - Finger fracture Past Surgical History: Reports: Hx Abdominal Surgery, Hx Appendectomy, Hx Cholecystectomy, Hx Orthopedic Surgery - fractured finger - Immunizations Immunizations up to date: Yes Hx Diphtheria, Pertussis, Tetanus Vaccination: Yes - 2012 Hx Pneumococcal Vaccination: 08/23/00 Vertical Provider Document - CONSTITUTIONAL Agree With Documented VS: Yes Notes: PHYSICAL EXAMINATION: GENERAL: Well-appearing, well-nourished and in no acute distress. HEAD: Atraumatic, normocephalic. EYES: Pupils equal round and reactive to light, extraocular movements intact, sclera anicteric, conjunctiva are normal. ENT: EAC clear b/l. TM's intact b/l without erythema, fluid, or perforation. Nares patent and without discharge. oropharynx clear without exudates. No tonsilar hypertrophy or erythema. Moist mucous membranes. No sinus tenderness. NECK: Normal range of motion, supple without lymphadenopathy LUNGS: Breath sounds clear to auscultation bilaterally and equal. No wheezes rales or rhonchi. HEART: Regular rate and rhythm without murmurs, rubs, gallops. ABDOMEN: Soft, nontender, nondistended abdomen. No guarding, no rebound. Normal bowel sounds present. No CVA tenderness bilaterally. Dickinson negative. No tenderness at [place]. Musculoskeletal: FROM to passive/active. Strength 5+/5. Extremities: No cyanosis, clubbing, or edema b/l. Peripheral pulses 2+. Capillary refill less than 3 seconds. NEUROLOGICAL: normal speech, normal gait. PSYCH: Normal mood, normal affect. SKIN: Warm, Dry, normal turgor, no rashes or lesions noted. - INFECTION CONTROL TRAVEL OUTSIDE OF THE [place] IN LAST 30 DAYS: No Course - Re-evaluation Re-evalutation: 07/26/19 Patient is an afebrile, well-hydrated, 34-year-old male who presents with epigastric abdominal pain, since resolved. Vitals are acceptable without significant tachycardia, tachypnea, or hypoxia. PE is otherwise unremarkable. Patient's abdomen is soft and nontender throughout. He is nontoxic-appearing and is tolerating p.o. without difficulty. No further work-up warranted at this time. Patient was given a GI cocktail as well without the lidocaine. Patient has not had any recurrence of the symptoms. Low suspicion/risk for acute appendicitis, bowel obstruction, acute cholecystitis, perforated diverticulitis, incarcerated hernia, pancreatitis, perforated ulcer, peritonitis, sepsis, testicular torsion, or other systemic emergent condition at this time. Patient is aware that his condition can change from initial presentation and he needs to monitor symptoms closely and seek medical attention if any acute changes. Conservative measures otherwise for symptoms. Recheck with PCM in 2-3 days. 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 Return to the ED with any worsening/concerning symptoms otherwise as reviewed in discharge. Patient is in agreement. - Vital Signs Vital signs: Temp Pulse Resp BP Pulse Ox 97.8 F 87 20 126/68 H 98 07/26/19 19:17 07/26/19 19:17 07/26/19 19:17 07/26/19 19:17 07/26/19 19:17 Discharge - Discharge Clinical Impression: Epigastric pain Condition: Stable Disposition: HOME, SELF-CARE Instructions: Abdominal Pain ([facility]) Additional Instructions: Maintain adequate fluid and food intake [place] diet ([employer] Bananas, rice, apples, toast, etc tylenol if needed Monitor for any worsening symptoms Make sure you are staying hydrated enough to urinate and have normal BM's Recheck with your PCM in 2-3 days Consider consult with Gastroenterology for ongoing/worsening symptoms Return to the ED with any worsening symptoms and/or development of fever, headache, chest pain, palpitations, syncope, shortness of breath, trouble b reathing, abdominal pain, n/v/d, blood in stool/urine, weakness, or other worsening symptoms that are concerning to you. Prescriptions: Omeprazole 20 mg PO DAILY #30 tablet.dr Referrals: GIANCARLO CHANCE MD [Primary Care Provider] - Follow up as needed
== END 2019-07-26 19:50 | disposition home or self-care (01) ==
LOC: ER 18:29
DX: R10.13 Epigastric pain (principal); J45.909 Unspecified asthma, uncomplicated; E11.9 Type 2 diabetes mellitus without complications; Z90.49 Acquired absence of other specified parts of digestive tract
CPT/HCPCS: 99283; J3490 ×2

== ENCOUNTER 2019-07-26 23:36 | Emergency (ER) | payer MEDICAID ==
--- NOTE | 2019-07-27 05:17 | ER Document Report ---
ED General - General Chief Complaint: Sore Throat Stated Complaint: SORE THROAT Time Seen by Provider: 07/27/19 05:12 Primary Care Provider: GIANCARLO CHANCE MD [Primary Care Provider] - Follow up as needed Mode of Arrival: Ambulatory Information source: Patient TRAVEL OUTSIDE OF THE [place] IN LAST 30 DAYS: No - HPI Patient complains to provider of: Sore Throat, Ankle Pain Onset: Other - over the last 1-2 days Quality of pain: Achy Severity: Mild Pain Level: 1 Associated symptoms: None Exacerbated by: Denies Relieved by: Denies Similar symptoms previously: Yes Recently seen / treated by doctor: Yes Notes: 34 year old male with a history of Schizophrenia, Bipolar, Anxiety, Psychosocial Issues, Asthma who is well known to the ER here in the ER for a sore throat and ankle pain. The patient was resting comfortably in his ER room on my arrival. The patient says the warm temperature of the ER made his sore throat and ankle pain go away. The patient is ambulating without problems in the ER and he is asking for a Sprite. - Related Data Allergies/Adverse Reactions: No Known Allergies Allergy (Verified 07/03/19 21:59) Past Medical History - Social History Smoking Status: Never Smoker Frequency of alcohol use: None Drug Abuse: None Family History: Reviewed & Not Pertinent Patient has suicidal ideation: No Patient has homicidal ideation: No Pulmonary Medical History: Reports: Hx Asthma - not on home O2, Hx Bronchitis Endocrine Medical History: Reports: Hx Diabetes Mellitus Type 2. Denies: Hx Diabetes Mellitus Type 1 Renal/ Medical History: Denies: Hx Peritoneal Dialysis GI Medical History: Reports: Hx Irritable Bowel - constipation Musculoskeletal Medical History: Reports Hx Arthritis, Reports Hx Musculoskeletal Trauma Psychiatric Medical History: Reports: Hx Anxiety, Hx Bipolar Disorder, Hx Depression, Hx Personality Disorder, Hx Schizoaffective Disorder, Hx Schizop hrenia Traumatic Medical History: Reports: Hx Fractures - Finger fracture Past Surgical History: Reports: Hx Abdominal Surgery, Hx Appendectomy, Hx Ch olecystectomy, Hx Orthopedic Surgery - fractured finger - Immunizations Immunizations up to date: Yes Hx Diphtheria, Pertussis, Tetanus Vaccination: Yes - 2012 Hx Pneumococcal Vaccination: 08/23/00 Review of Systems - Review of Systems Constitutional: No symptoms reported EENT: Throat pain Cardiovascular: No symptoms reported Respiratory: No symptoms reported Gastrointestinal: No symptoms reported Genitourinary: No symptoms reported Male Genitourinary: No symptoms reported Musculoskeletal: Other - Ankle Pain Skin: No symptoms reported Hematologic/Lymphatic: No symptoms reported Neurological/Psychological: No symptoms reported Physical Exam - Vital signs Vitals: Temp Pulse Resp BP Pulse Ox 98 F 68 18 117/63 99 07/26/19 23:42 07/26/19 23:42 07/26/19 23:42 07/26/19 23:42 07/26/19 23:42 - Notes Notes: GENERAL: Well-appearing, well-nourished and in no acute distress. HEAD: Atraumatic, normocephalic. EYES: Pupils equal round and reactive to light, extraocular movements intact, sclera anicteric, conjunctiva are normal. ENT: Nares patent, oropharynx clear without exudates. Moist mucous membranes. NECK: Normal range of motion, supple without lymphadenopathy or JVD. LUNGS: Breath sounds clear to auscultation bilaterally and equal. No wheezes rales or rhonchi. HEART: Regular rate and rhythm without murmurs, rubs or gallops. ABDOMEN: Soft, nontender, normoactive bowel sounds. No guarding, no rebound. No masses appreciated. EXTREMITIES: Normal range of motion, no pitting or edema. No clubbing or cyanosis. Patient ambulates without a problem. No ankle tenderness or swelling on exam. NEUROLOGICAL: Cranial nerves II through XII grossly intact. Normal speech, normal gait. PSYCH: Normal mood, normal affect. SKIN: Warm, Dry, normal turgor, no rashes or lesions noted. Course - Re-evaluation Re-evalutation: 07/27/19 05:26 The patient is well known to this ER and he is in his normal state of health. The patient initially complained of a sore throat and ankle pain but these s ymptoms went away while he was in the ER prior to me seeing him. The patient was asking for a Sprite and in no distress. It seems likely he just wanted to get out of the cold this evening. No need for labs or diagnostics today. - Vital Signs Vital signs: Temp Pulse Resp BP Pulse Ox 98 F 68 18 117/63 99 07/27/19 00:45 07/27/19 00:45 07/27/19 00:45 07/27/19 00:45 07/27/19 00:45 Discharge - Discharge Clinical Impression: Sore throat Ankle pain Qualifiers: Chronicity: unspecified Laterality: unspecified laterality Qualified Code(s): M25.579 - Pain in unspecified ankle and joints of unspecified foot Condition: Stable Disposition: HOME, SELF-CARE Instructions: Sore Throat ([facility]) Additional Instructions: Use Tylenol and Motrin for ankle pain and a sore throat. Referrals: GIANCARLO CHANCE MD [Primary Care Provider] - Follow up as needed
[2019-07-27 05:41] VITALS: BP 135/66
== END 2019-07-27 05:40 | disposition home or self-care (01) ==
LOC: ER 23:36
DX: J02.9 Acute pharyngitis, unspecified (principal); M25.519 Pain in unspecified shoulder; J45.909 Unspecified asthma, uncomplicated; E11.9 Type 2 diabetes mellitus without complications
CPT/HCPCS: 99282

== ENCOUNTER 2019-07-29 11:36 | Emergency (ER) | payer MEDICAID ==
--- NOTE | 2019-07-29 12:02 | ER Document Report ---
HPI - HPI Patient complains to provider of: short of breath Time Seen by Provider: 07/29/19 11:59 Onset: Yesterday Onset/Duration: Persistent Quality of pain: No pain Severity: None Pain Level: Denies Context: 34-year-old male presented to ED for need of a spacer and a new rescue inhaler. He states he is out of both of these and he lost the spacer. He does have his Symbicort with him. Patient is alert oriented unlabored but he does have inspiratory and expiratory wheezes O2 sats air 95% on room air. We will treat patient with 10 mg Decadron IM and 2 breathing treatments. Associated Symptoms: Nonproductive cough, Sinus pain/drainage, Shortness of breath Exacerbated by: Denies Relieved by: Denies Similar symptoms previously: Yes Recently seen / treated by doctor: Yes - ROS ROS below otherwise negative: Yes - CONSTITUTIONAL Constitutional: DENIES: Fever, Chills - EENT EENT: REPORTS: Nasal Drainage-Purulent. DENIES: Sore Throat, Ear Pain, Nasal Drainage-Clear, Congestion, Eye problems - NEURO Neurology: DENIES: Headache, Weakness, Vision blurred, Dizzinesss / Vertigo - CARDIOVASCULAR Cardiovascular: DENIES: Chest pain - RESPIRATORY Respiratory: REPORTS: Coughing - GASTROINTESTINAL Gastrointestinal: DENIES: Abdominal Pain, Nausea, Patient vomiting, Diarrhea, Constipation, Black / Bloody Stools - URINARY Urinary: DENIES: Dysuria, Urgency, Frequency - REPRODUCTIVE Reproductive: DENIES: :, Postmenopausal, Abnormal bleeding / discharge - MUSCULOSKELETAL Musculoskeletal: DENIES: Extremity pain, Back Pain, Neck Pain, Swelling - DERM Skin Color: Normal Skin Problems: None Past Medical History - General Information source: Patient - Social History Smoking Status: Never Smoker Frequency of alcohol use: None Drug Abuse: None Lives with: Family Family History: Reviewed & Not Pertinent Patient has suicidal ideation: No Patient has homicidal ideation: No - Past Medical History Cardiac Medical History: Reports: None Pulmonary Medical History: Reports: Hx Asthma - not on home O2, Hx Bronchitis EENT Medical History: Reports: None Neurological Medical History: Reports: None Endocrine Medical History: Reports: Hx Diabetes Mellitus Type 2 Renal/ Medical History: Reports: None Malignancy Medical History: Reports None GI Medical History: Reports: Hx Irritable Bowel - constipation Musculoskeletal Medical History: Reports Hx Arthritis, Reports Hx Musculoskeletal Trauma Skin Medical History: Reports None Psychiatric Medical History: Reports: Hx Anxiety, Hx Bipolar Disorder, Hx Depression, Hx Personality Disorder, Hx Schizoaffective Disorder, Hx Schizophrenia Traumatic Medical History: Reports: Hx Fractures - Finger fracture Infectious Medical History: Reports: None Past Surgical History: Reports: Hx Abdominal Surgery, Hx Appendectomy, Hx Cholecystectomy, Hx Orthopedic Surgery - fractured finger - Immunizations Immunizations up to date: Yes Hx Diphtheria, Pertussis, Tetanus Vaccination: Yes - 2012 Hx Pneumococcal Vaccination: 08/23/00 Vertical Provider Document - CONSTITUTIONAL Agree With Documented VS: Yes Exam Limitations: No Limitations General Appearance: WD/WN, No Apparent Distress - INFECTION CONTROL TRAVEL OUTSIDE OF THE [place] IN LAST 30 DAYS: No - HEENT HEENT: Atraumatic Notes: Purulent nasal drainage, postnasal drip - NECK Neck: Normal Inspection - RESPIRATORY Respiratory: Wheezing - CARDIOVASCULAR Cardiovascular: Regular Rate, Regular Rhythm, No Murmur - GI/ABDOMEN Gastrointestinal: Abdomen Soft, Abdomen Non-Tender, No Organomegaly, Normal Bowel Sounds - REPRODUCTIVE Male Genitalia: Normal Inspection - BACK Back: Normal Inspection - MUSCULOSKELETAL/EXTREMETIES Musculoskeletal/Extremeties: MAEW, FROM, Non-Tender - NEURO Level of Consciousness: Awake, Alert, Appropriate Motor/Sensory: No Motor Deficit, No Sensory Deficit - DERM Integumentary: Warm, Dry, No Rash Course - Re-evaluation Re-evalutation: 07/29/19 21:45 Patient was treated with nebulizers and steroids and discharged home with a inhaler spacer and a new albuterol inhaler as he was out of his albuterol and had lost his spacer. Patient was instructed to follow-up with his primary care doctor in the next 3 to 4 days. Patient did verbalize understanding and agreeme nt with treatment plan and was discharged home. - Vital Signs Vital signs: Temp Pulse Resp BP Pulse Ox 97.6 F 86 126/62 H 92 07/29/19 11:40 07/29/19 11:40 07/29/19 11:40 07/29/19 11:40 Discharge - Discharge Clinical Impression: Medication refill Asthma exacerbation Qualifiers: Asthma severity: mild Asthma persistence: intermittent Qualified Code(s): J45.21 - Mild intermittent asthma with (acute) exacerbation Condition: Stable Disposition: HOME, SELF-CARE Additional Instructions: ASTHMA: You have been diagnosed as having asthma. This is a condition where there is episodic tightness in the bronchial tubes. Allergies, infections, and polluted or cold air may be contributing factors. Emergency treatment of a severe asthma attack may include adrenaline shots, or bronchodilator aerosol. You may feel lightheaded, have a decreased exercise tolerance and a rapid pulse for an hour or two. Rest and get plenty of fluids. Home treatment of asthma requires bronchodilator drugs. These can be administered by injection, inhalation, or by mouth. Antibiotics and cor ticosteroids may be required for some patients. You should avoid chemical fumes, dusts, pollens, and exercising in very cold or dry air. If you smoke, stop!! If you develop a fever, increased wheezing, chest pain, or severe shortness of breath, you should contact the doctor immediately. STEROID MEDICATION: You have been given an injection of or oral medicine of the cortisone/steroid class. This medication is used to control inflammation or allergy. Satish t is usually only given for a short period of time, until the acute process subsides. There are usually no side effects from short-term use of cortisone-like medications. Some persons feel an increased sense of well-being and are not sleepy at bedtime. Long-term use of cortisone medications is best avoided, unless required for a severe condition. If your condition does not remit, or relapses after the course of corticosteroid medication, you should consult your physician. INHALED BRONCHODILATORS: You have received treatment(s) of and/or prescription for an inhaled bronchodilator -- a medication which stimulates the airways in the lung to dilate. This improves the flow of air in asthma, bronchitis, and emphysema. These medicines have some similarity to adrenaline, and can cause similar side effects: shakiness, racing heart, and a sense of nervousness. These side effects decrease with time. Contact your doctor if these side effects are severe. Do not over-use the medicine. Too-frequent use of the inhaler may make it ineffective. Call your doctor if the inhaler is not controlling your symptoms at the prescribed doses. USE OF ACETAMINOPHEN (Tylenol): Acetaminophen may be taken for pain relief or fever control. It's much safer than aspirin, offering a wider range of "safe" dosages. It is safe during . Some brand names are Tylenol, Panadol, Datril, Anacin 3, Tempra, and Liquiprin. Acetaminophen can be repeated every four hours. The following are maximum recommended dosages: WEIGHT Dose Drops Elixir Chewable(80mg) (LBS.) drprs=droppers tsp=teaspoon 6 40 mg 0.4 ml (1/2) 6-11 80 mg 0.8 ml (full) tsp 1 tab 12-16 120 mg 1 1/2 drprs 3/4 tsp 1 1/2 tabs 17-23 160 mg 2 drprs 1 tsp 2 tabs 24-30 240 mg 3 drprs 1 1/2 tsp 3 tabs 30-35 320 mg 2 tsp 4 tabs 36-41 360 mg 2 1/4 tsp 4 1/2 tabs 42-47 400 mg 2 1/2 tsp 5 tabs 48-53 480 mg 3 tsp 6 tabs 54-59 520 mg 3 1/4 tsp 6 1/2 tabs 60-64 560 mg 3 1/2 tsp 7 tabs 65-70 600 mg 3 3/4 tsp 7 1/2 tabs 71-76 640 mg 4 tsp 8 tabs 77-82 720 mg 4 1/2 tsp 9 tabs 83-88 800 mg 5 tsp 10 tabs >89 pounds or adults 650 mg to 900 mg Acetaminophen can be repeated every four hours. Maximum dose not to exceed 4000 mg a day. These maximum recommended dosages are slightly higher than the dosages written on the product container, but these dosages are very safe and below the toxic dosage for acetaminophen. FOLLOW-UP CARE: If you have been referred to a physician for follow-up care, call the physicians office for an appointment as you were instructed or within the next two days. If you experience worsening or a significant change in your symptoms, notify the physician immediately or return to the Emergency Department at any time for re-evaluation. Referrals: GIANCARLO CHANCE MD [Primary Care Provider] - Follow up in 3-5 days
[2019-07-29] MEDS ORDERED: DEXAMETHASONE SOD PHOS INJ 10 MG/1 ML VIAL IV ONE (12:04)
[2019-07-29] MEDS ORDERED: IPRATROPIUM/ALBUTEROL 0.5-2.5 MG/3 ML AMPUL NEB ONE (12:05)
[2019-07-29] MEDS ORDERED: DEXAMETHASONE SOD PHOS INJ 10 MG/1 ML VIAL IM ONE (12:07)
[2019-07-29] MEDS ORDERED: ALBUTEROL SULFATE HFA (90 MCG/PUFF) 8 GM MDI (1 MDI/ER DISP) IH PRN (12:19)
[2019-07-29] MEDS: ALBUTEROL SULFATE 0.083% NEB 2.5 MG/3 ML AMPUL NEB SCH ×3 (12:22→12:32)
[2019-07-29 13:45] VITALS: BP 114/68
== END 2019-07-29 13:46 | disposition home or self-care (01) ==
LOC: ER 11:36
DX: Z76.0 Encounter for issue of repeat prescription (principal); J45.21 Mild intermittent asthma with (acute) exacerbation; R06.02 Shortness of breath; R05 Cough; R51 Headache; R09.89 Other specified symptoms and signs involving the circulatory and respiratory systems
CPT/HCPCS: 94640 ×2; 99281; 96372; J1100; J3490; J7620

== ENCOUNTER 2019-08-02 17:26 | Emergency (ER) | payer MEDICAID ==
--- NOTE | 2019-08-02 19:42 | ER Document Report ---
HPI - HPI Patient complains to provider of: anxiety Time Seen by Provider: 08/02/19 19:33 Onset: This afternoon Onset/Duration: Gone Quality of pain: Achy Severity: None Pain Level: Denies Context: 34-year-old male presented to ED for complaint of concerned because he ate a brown banana. He states he read on [employer] and it said that it would decrease the antioxidants and he thought it meant it would hurt him. He does have panic attacks and he became very panicked from this. He states it made him have aching in his chest which is much better at this time. Patient has been reassured that a brown banana is not gotten poison him, it just decreases the nutrition in the banana. Associated Symptoms: Other Exacerbated by: Denies Relieved by: Denies Similar symptoms previously: Yes Recently seen / treated by doctor: Yes - ROS ROS below otherwise negative: Yes - CONSTITUTIONAL Constitutional: DENIES: Fever, Chills - EENT EENT: DENIES: Sore Throat, Ear Pain, Nasal Drainage-Clear, Nasal Drainage- Purulent, Congestion, Eye problems - NEURO Neurology: DENIES: Headache, Weakness, Vision blurred, Dizzinesss / Vertigo - CARDIOVASCULAR Cardiovascular: REPORTS: Chest pain - RESPIRATORY Respiratory: DENIES: Trouble Breathing, Coughing - GASTROINTESTINAL Gastrointestinal: DENIES: Abdominal Pain, Nausea, Patient vomiting, Diarrhea, Constipation, Black / Bloody Stools - URINARY Urinary: DENIES: Dysuria, Urgency, Frequency - REPRODUCTIVE Reproductive: DENIES: :, Postmenopausal, Abnormal bleeding / discharge - DERM Skin Color: Normal Skin Problems: None Past Medical History - General Information source: Patient - Social History Smoking Status: Former Smoker Cigarette use (# per day): No Chew tobacco use (# tins/day): No Smoking Education Provided: No Frequency of alcohol use: None Drug Abuse: None Lives with: Homeless Family History: Reviewed & Not Pertinent Patient has suicidal ideation: No Patient has homicidal ideation: No - Past Medical History Cardiac Medical History: Reports: None Pulmonary Medical History: Reports: Hx Asthma - not on home O2, Hx Bronchitis EENT Medical History: Reports: None Neurological Medical History: Reports: None Endocrine Medical History: Reports: None Renal/ Medical History: Reports: None Malignancy Medical History: Reports None GI Medical History: Reports: Hx Irritable Bowel - constipation Musculoskeletal Medical History: Reports Hx Arthritis, Reports Hx Musculoskeletal Trauma Skin Medical History: Reports None Psychiatric Medical History: Reports: Hx Anxiety, Hx Bipolar Disorder, Hx Depression, Hx Personality Disorder, Hx Schizoaffective Disorder, Hx Schizophrenia Traumatic Medical History: Reports: Hx Fractures - Finger fracture Infectious Medical History: Reports: None Past Surgical History: Reports: Hx Abdominal Surgery, Hx Appendectomy, Hx Cholecystectomy, Hx Orthopedic Surgery - fractured finger - Immunizations Immunizations up to date: Yes Hx Diphtheria, Pertussis, Tetanus Vaccination: Yes - 2012 Hx Pneumococcal Vaccination: 08/23/00 Vertical Provider Document - CONSTITUTIONAL Agree With Documented VS: Yes Exam Limitations: No Limitations General Appearance: WD/WN, No Apparent Distress - INFECTION CONTROL TRAVEL OUTSIDE OF THE [place] IN LAST 30 DAYS: No - HEENT HEENT: Atraumatic, Normal ENT Exam, Normocephalic, PERRLA - NECK Neck: Normal Inspection, Supple, Thyroid Normal - RESPIRATORY Respiratory: Breath Sounds Normal, No Respiratory Distress, Chest Non-Tender - CARDIOVASCULAR Cardiovascular: Regular Rate, Regular Rhythm, No Murmur - GI/ABDOMEN Gastrointestinal: Abdomen Soft, Abdomen Non-Tender, No Organomegaly, Normal Bowel Sounds - BACK Back: Normal Inspection - MUSCULOSKELETAL/EXTREMETIES Musculoskeletal/Extremeties: MAEW, FROM, Non-Tender - NEURO Level of Consciousness: Awake, Alert, Appropriate Motor/Sensory: No Motor Deficit, No Sensory Deficit, No Pronator Drift Deep Tendon Reflexes: 2+ - DERM Integumentary: Warm, Dry, No Rash Course - Vital Signs Vital signs: Temp Pulse Resp BP Pulse Ox 98.5 F 86 16 126/76 H 94 08/02/19 17:45 08/02/19 17:45 08/02/19 17:45 08/02/19 17:45 08/02/19 17:45 Discharge - Discharge Clinical Impression: Panic attack relieved Condition: Stable Disposition: HOME, SELF-CARE Additional Instructions: You had a panic attack today over eating the brown banana. Your states that your pain is much better now that you understand what your [employer] was telling you about the brown banana. Acetaminophen Acetaminophen may be taken for pain relief or fever control. It's much safer than aspirin, offering a wider range of "safe" dosages. It is safe during . Some brand names are Tylenol, Panadol, Datril, Anacin 3, Tempra, and Liquiprin. Acetaminophen can be repeated every four hours. The following are maximum recommended dosages: WEIGHT Dose Drops Elixir Chewable(80mg) (LBS.) drprs=droppers tsp=teaspoon 6 40 mg .4 ml (1/2) 6-11 80 mg .8 ml (full) 1/2 tsp 1 tab 12-16 120 mg 1 1/2 drprs 3/4 tsp 1 1/2 tabs 17-23 160 mg 2 drprs 1 tsp 2 tabs 24-30 240 mg 3 drprs 1 1/2 tsp 3 tabs 30-35 320 mg 2 tsp 4 tabs 36-41 360 mg 2 1/4 tsp 4 1/2 tabs 42-47 400 mg 2 1/2 tsp 5 tabs 48-53 480 mg 3 tsp 6 tabs 54-59 520 mg 3 1/4 tsp 6 1/2 tabs 60-64 560 mg 3 1/2 tsp 7 tabs 65-70 600 mg 3 3/4 tsp 7 1/2 tabs 71-76 640 mg 4 tsp 8 tabs 77-82 720 mg 4 1/2 tsp 9 tabs 83-88 800 mg 5 tsp 10 tabs >89 pounds or adults 650 mg to 900 mg Acetaminophen can be repeated every four hours. Maximum daily dose not to exceed 4000 mg. These maximum recommended dosages are slightly higher than the dosages written on the product container, but these dosages are very safe and well below the toxic dosage for acetaminophen. Ibuprofen Ibuprofen is an excellent, safe drug for pain control. In addition, it has potent antiinflammatory effects which are beneficial, especially in the treatment of injuries, arthritis, or tendonitis. It's best to take ibuprofen with food. Persons with ulcer disease or allergy to aspirin should notify their physician of this before taking ibuprofen. Take the medication exactly as prescribed. Don't take additional doses unless instructed to do so by your doctor. If you develop wheezing, shortness of breath, hives, faintness, stomach pain, vomiting, or dark black stools, return for re-evaluation at once. FOLLOW-UP CARE: If you have been referred to a physician for follow-up care, call the physicians office for an appointment as you were instructed or within the next two days. If you experience worsening or a significant change in your symptoms, notify the physician immediately or return to the Emergency Department at any time for re-evaluation. Forms: Elevated Blood Pressure Referrals: GIANCARLO CHANCE MD [Primary Care Provider] - Follow up in 3-5 days
[2019-08-02 19:50] VITALS: BP 115/62
== END 2019-08-02 20:53 | disposition home or self-care (01) ==
LOC: ER 17:26
DX: F41.0 Panic disorder [episodic paroxysmal anxiety] (principal); R07.9 Chest pain, unspecified; J45.909 Unspecified asthma, uncomplicated; Z59.0 Homelessness; Z87.891 Personal history of nicotine dependence
CPT/HCPCS: 99283

== ENCOUNTER 2019-08-03 00:59 | Emergency (ER) | payer MEDICAID ==
[2019-08-03 06:48] VITALS: BP 128/77
--- NOTE | 2019-08-03 14:22 | ER Document Report ---
Entered by HETAL ENAMORADO SCRIBE 08/03/19 0630 Acting as scribe for:LENIN SOLIS MD ED General - General Chief Complaint: Ear Pain Stated Complaint: COUGH,EAR PAIN Time Seen by Provider: 08/03/19 06:20 Primary Care Provider: GIANCARLO CHANCE MD [Primary Care Provider] - Follow up as needed Mode of Arrival: Ambulatory Information source: Patient, [facility] Records Notes: This 34 year old male patient presents to the ED today with complaints of ear congestion that began prior to arrival. Patient has a history of homelessness but states that he now has a place to stay. Patient notes that he has been experiencing some wheezing. TRAVEL OUTSIDE OF THE [place] IN LAST 30 DAYS: No - Related Data Allergies/Adverse Reactions: No Known Allergies Allergy (Verified 07/29/19 11:59) Home Medications: Albuterol inhaler Past Medical History - General Information source: Patient, [facility] Records - Social History Smoking Status: Former Smoker Cigarette use (# per day): No Chew tobacco use (# tins/day): No Frequency of alcohol use: None Drug Abuse: None Family History: Reviewed & Not Pertinent Patient has suicidal ideation: No Patient has homicidal ideation: No Pulmonary Medical History: Reports: Hx Asthma - not on home O2, Hx Bronchitis GI Medical History: Reports: Hx Irritable Bowel - constipation Musculoskeletal Medical History: Reports Hx Arthritis, Reports Hx Musculoskeletal Trauma Psychiatric Medical History: Reports: Hx Anxiety, Hx Bipolar Disorder, Hx Depres zeynep, Hx Personality Disorder, Hx Schizoaffective Disorder, Hx Schizophrenia Traumatic Medical History: Reports: Hx Fractures - Finger fracture Past Surgical History: Reports: Hx Abdominal Surgery, Hx Appendectomy, Hx Cholecystectomy, Hx Orthopedic Surgery - fractured finger - Immunizations Immunizations up to date: Yes Hx Diphtheria, Pertussis, Tetanus Vaccination: Yes - 2012 Hx Pneumococcal Vaccination: 08/23/00 Review of Systems - Review of Systems Constitutional: No symptoms reported EENT: See HPI, Other - ear congestion Cardiovascular: No symptoms reported Respiratory: See HPI, Wheezing Gastrointestinal: No symptoms reported Genitourinary: No symptoms reported Male Genitourinary: No symptoms reported Musculoskeletal: No symptoms reported Skin: No symptoms reported Hematologic/Lymphatic: No symptoms reported Neurological/Psychological: No symptoms reported -: Yes All other systems reviewed and negative Physical Exam - Vital signs Vitals: Temp Pulse Resp BP Pulse Ox 97.8 F 58 L 18 127/87 H 100 08/03/19 01:04 08/03/19 01:04 08/03/19 01:04 08/03/19 01:04 08/03/19 01:04 Interpretation: Normal - General General appearance: Appears well, Alert - HEENT Head: Normocephalic, Atraumatic Eyes: Normal Pupils: PERRL Ears: Normal Tympanic membrane: Normal - Respiratory Respiratory status: No respiratory distress Chest status: Nontender Breath sounds: Normal. No: Wheezing Chest palpation: Normal - Cardiovascular Rhythm: Regular Heart sounds: Normal auscultation Murmur: No - Abdominal Inspection: Normal Distension: No distension Bowel sounds: Normal Tenderness: Nontender Organomegaly: No organomegaly - Back Back: Normal, Nontender - Extremities General upper extremity: Normal inspection General lower extremity: Normal inspection - Neurological Neuro grossly intact: Yes - Psychological Associated symptoms: Normal affect, Normal mood - Skin Skin Temperature: Warm Skin Moisture: Dry Skin Color: Normal Course - Vital Signs Vital signs: Temp Pulse Resp BP Pulse Ox 98.7 F 60 20 123/77 98 08/03/19 06:39 08/03/19 06:39 08/03/19 06:39 08/03/19 06:39 08/03/19 06:39 Discharge - Discharge Clinical Impression: Congestion of both ears Schizophrenia Qualifiers: Schizophrenia type: unspecified Qualified Code(s): F20.9 - Schizophrenia, unspecified Condition: Stable Disposition: HOME, SELF-CARE Additional Instructions: Be sure to use her Symbicort twice a day on schedule every day whether you are wheezing or not. Use the albuterol inhaler only when you for wheezing and feeling short of breath. Drink plenty of fluids and get plenty of rest every day, especially during the cold and flu season which we are in the middle of now. Follow-up with Dr. Chance as needed for any medical problems. RETURN TO THE EMERGENCY ROOM IF ANY NEW OR WORSENING SYMPTOMS. Referrals: GIANCARLO CHANCE MD [Primary Care Provider] - Follow up as needed Scribe Attestation: 08/03/19 06:31 I personally performed the services described in the documentation, reviewed and edited the documentation which was dictated to the scribe in my presence, and it accurately records my words and actions. I personally performed the services described in the documentation, reviewed and edited the documentation which was dictated to the scribe in my presence, and it accurately records my words and actions.
== END 2019-08-03 06:39 | disposition home or self-care (01) ==
LOC: ER 00:59
DX: R68.89 Other general symptoms and signs (principal); F20.9 Schizophrenia, unspecified; J45.909 Unspecified asthma, uncomplicated; Z79.899 Other long term (current) drug therapy; Z87.891 Personal history of nicotine dependence
CPT/HCPCS: 99282

== ENCOUNTER 2019-08-05 18:06 | Emergency (ER) | payer MEDICAID ==
[2019-08-05] MEDS ORDERED: LIDOCAINE 2% VISCOUS SOLN 20 ML UDCUP PO ONE (18:33)
[2019-08-05] MEDS ORDERED: MAG HYDROX/AL HYDROX/SIMETH SUSP 30 ML UDCUP PO ONE (18:33)
[2019-08-05] MEDS ORDERED: METOCLOPRAMIDE HCL ORAL SOLN 10 MG/10 ML UDCUP PO ONE (18:33)
[2019-08-05] MEDS ORDERED: IPRATROPIUM/ALBUTEROL 0.5-2.5 MG/3 ML AMPUL NEB ONE (18:34)
--- NOTE | 2019-08-05 18:34 | ER Document Report ---
ED Medical Screen (RME) - General Chief Complaint: Abdominal Pain Stated Complaint: ABDOMINAL PAIN Time Seen by Provider: 08/05/19 18:26 Primary Care Provider: GIANCARLO CHANCE MD [Primary Care Provider] - Follow up as needed Notes: Patient is a 34-year-old male well-known to this emergency department who presents to the emergency department with abdominal pain. The pain is in his mid upper abdomen. He also states that he feels like he is a little short of breath, as he has a history of asthma. Exam: Expiratory wheezes noted in lower lobes of bilateral lungs. I have greeted and performed a rapid initial assessment of this patient. A comprehensive ED assessment and evaluation of the patient, analysis of test results and completion of medical decision making process will be conducted by an additional ED providers. TRAVEL OUTSIDE OF THE [place] IN LAST 30 DAYS: No - Related Data Allergies/Adverse Reactions: No Known Allergies Allergy (Verified 08/05/19 18:24) Home Medications: albuterol Past Medical History - Social History Chew tobacco use (# tins/day): No Frequency of alcohol use: None Drug Abuse: None Family history: Reviewed & Not Pertinent Pulmonary Medical History: Reports: Hx Asthma - not on home O2, Hx Bronchitis GI Medical History: Reports: Hx Irritable Bowel - constipation Musculoskeltal Medical History: Reports Hx Arthritis, Reports Hx Musculoskeletal Trauma Psychiatric Medical History: Reports: Hx Anxiety, Hx Bipolar Disorder, Hx Depression, Hx Personality Disorder, Hx Schizoaffective Disorder, Hx Schizophrenia Traumatic Medical History: Reports: Hx Fractures - Finger fracture Past Surgical History: Reports: Hx Abdominal Surgery, Hx Appendectomy, Hx Cholecystectomy, Hx Orthopedic Surgery - fractured finger - Immunizations Immunizations up to date: Yes Hx Diphtheria, Pertussis, Tetanus Vaccination: Yes - 2012 Physical Exam - Vital signs Vitals: Temp Pulse Resp BP Pulse Ox 98.6 F 107 H 24 H 154/93 H 93 08/05/19 18:12 08/05/19 18:12 08/05/19 18:12 08/05/19 18:12 08/05/19 18:12 Course - Vital Signs Vital signs: Temp Pulse Resp BP Pulse Ox 98.6 F 107 H 24 H 154/93 H 93 08/05/19 18:24 08/05/19 18:24 08/05/19 18:24 08/05/19 18:24 12/14/19 18:24 Doctor's Discharge - Discharge Referrals: GIANCARLO CHANCE MD [Primary Care Provider] - Follow up as needed
[2019-08-05 19:00] LABS: HEMATOCRIT 42.2 % (37.9-51.0); MEAN CORPUSCULAR HEMOGLOBIN 26.6 pg (27.0-33.4); MEAN CORPUSCULAR HGB CONC 33.2 g/dL (32.0-36.0); MEAN CORPUSCULAR VOLUME 80 fl (80-97); PLATELET COUNT 242 10^3/uL (150-450); RED BLOOD COUNT 5.26 10^6/uL (4.35-5.55); RED CELL DISTRIBUTION WIDTH 14.1 % (11.5-14.0)
[2019-08-05 19:16] LABS: ALBUMIN 4.2 g/dL (3.5-5.0); ALKALINE PHOSPHATASE 75 U/L (38-126); ANION GAP 8 (5-19); ASPARTATE AMINO TRANSFERASE 23 U/L (17-59); BILIRUBIN,DIRECT 0.1 mg/dL (0.0-0.4); BLOOD UREA NITROGEN 13 mg/dL (7-20); CALCIUM 9.1 mg/dL (8.4-10.2); CARBON DIOXIDE 31 mmol/L (22-30); CHLORIDE 104 mmol/L (98-107); GLUCOSE 90 mg/dL (75-110); POTASSIUM 4.3 mmol/L (3.6-5.0); TOTAL PROTEIN 6.9 g/dL (6.3-8.2)
[2019-08-05 19:20] LABS: ABSOLUTE LYMPHOCYTES# (MANUAL) 1.8 10^3/uL (0.5-4.7); ABSOLUTE MONOCYTES # (MANUAL) 0.5 10^3/uL (0.1-1.4); BASOPHILS % (MANUAL) 1 % (0-2); LYMPHOCYTES % (MANUAL) 32 % (13-45); MONOCYTES % (MANUAL) 9 % (3-13); NUCLEATED RED BLOOD CELLS 1 /100 WBC (0); SEGMENTED NEUTROPHILS % (MAN) 27 % (42-78); TOTAL CELLS COUNTED 100
[2019-08-05 19:21] LABS: ANISOCYTOSIS SLIGHT
[2019-08-05 19:22] LABS: PLATELET COMMENT ADEQUATE
[2019-08-05 19:23] LABS: EOSINOPHILS % (MANUAL) 28 % (0-6)
--- NOTE | 2019-08-06 03:15 | ER Document Report ---
ED GI/ - General Chief Complaint: Abdominal Pain Stated Complaint: ABDOMINAL PAIN Time Seen by Provider: 08/05/19 18:26 Primary Care Provider: GIANCARLO CHANCE MD [Primary Care Provider] - Follow up as needed Mode of Arrival: Ambulatory Information source: Patient TRAVEL OUTSIDE OF THE [place] IN LAST 30 DAYS: No - Related Data Allergies/Adverse Reactions: No Known Allergies Allergy (Verified 08/05/19 18:24) Home Medications: albuterol Past Medical History - Social History Smoking Status: Never Smoker Chew tobacco use (# tins/day): No Frequency of alcohol use: None Drug Abuse: None Family History: Reviewed & Not Pertinent Patient has suicidal ideation: No Patient has homicidal ideation: No Pulmonary Medical History: Reports: Hx Asthma - not on home O2, Hx Bronchitis GI Medical History: Reports: Hx Irritable Bowel - constipation Musculoskeletal Medical History: Reports Hx Arthritis, Reports Hx Musculoskeletal Trauma Psychiatric Medical History: Reports: Hx Anxiety, Hx Bipolar Disorder, Hx Depression, Hx Personality Disorder, Hx Schizoaffective Disorder, Hx Schizoph jose l Traumatic Medical History: Reports: Hx Fractures - Finger fracture Past Surgical History: Reports: Hx Abdominal Surgery, Hx Appendectomy, Hx Cho lecystectomy, Hx Orthopedic Surgery - fractured finger - Immunizations Immunizations up to date: Yes Hx Diphtheria, Pertussis, Tetanus Vaccination: Yes - 2012 Hx Pneumococcal Vaccination: 08/23/00 Physical Exam - Vital signs Vitals: Temp Pulse Resp BP Pulse Ox 98.6 F 107 H 24 H 154/93 H 93 08/05/19 18:12 08/05/19 18:12 08/05/19 18:12 08/05/19 18:12 08/05/19 18:12 Course - Vital Signs Vital signs: Temp Pulse Resp BP Pulse Ox 98.4 F 75 20 113/74 96 08/06/19 01:58 08/06/19 01:58 08/06/19 01:58 08/06/19 01:58 08/06/19 01:58 - Laboratory Result Diagrams: 08/05/19 18:44 08/05/19 18:44 Laboratory results interpreted by me: 08/05/19 08/05/19 18:44 18:44 MCH 26.6 L RDW 14.1 H Seg Neuts % (Manual) 27 L Eosinophils % (Manual) 28 H Abs Neuts (Manual) 1.4 L Absolute Eos (Manual) 1.4 H Carbon Dioxide 31 H Discharge - Discharge Clinical Impression: Epigastric abdominal pain Disposition: HOME, SELF-CARE Instructions: Abdominal Pain ([facility]) Additional Instructions: Please use [id number] omeprazole, 1 tablet daily as needed. Follow-up with your doctor as needed Referrals: GIANCARLO CHANCE MD [Primary Care Provider] - Follow up as needed
[2019-08-06 03:58] VITALS: BP 123/76
[2019-08-07 13:58] LABS: PATH REVIEW PATHOLOGIST REVIEWED
== END 2019-08-06 03:58 | disposition home or self-care (01) ==
LOC: ER 18:06
DX: R10.13 Epigastric pain (principal); J45.909 Unspecified asthma, uncomplicated; Z79.899 Other long term (current) drug therapy; Z87.19 Personal history of other diseases of the digestive system; Z90.49 Acquired absence of other specified parts of digestive tract
CPT/HCPCS: 94640; 99284; 36415; 83690; 85025; 80053; J3490 ×3; J7620

== ENCOUNTER 2019-08-10 16:42 | Emergency (ER) | payer MEDICAID ==
[2019-08-10 16:53] VITALS: BP 121/73
[2019-08-10] MEDS ORDERED: ALBUTEROL SULFATE HFA (90 MCG/PUFF) 8 GM MDI (1 MDI/ER DISP) IH ONE (17:39)
--- NOTE | 2019-08-10 17:48 | ER Document Report ---
HPI - HPI Time Seen by Provider: 08/10/19 17:38 Pain Level: Denies Notes: 34-year-old male patient presenting to the emergency department requesting a refill of his albuterol inhaler and spacer. He states that he lost both of these items today. He states with the cold weather needs to make sure he has his proper medications with him at all times. He denies any acute complaints today. - REPRODUCTIVE Reproductive: DENIES: : Past Medical History - General Information source: Patient - Social History Smoking Status: Never Smoker Chew tobacco use (# tins/day): No Frequency of alcohol use: None Family History: Reviewed & Not Pertinent Patient has suicidal ideation: No Patient has homicidal ideation: No Pulmonary Medical History: Reports: Hx Asthma - not on home O2, Hx Bronchitis GI Medical History: Reports: Hx Irritable Bowel - constipation Musculoskeletal Medical History: Reports Hx Arthritis, Reports Hx Musculoskeletal Trauma Psychiatric Medical History: Reports: Hx Anxiety, Hx Bipolar Disorder, Hx Depression, Hx Personality Disorder, Hx Schizoaffective Disorder, Hx Schizophr enia Traumatic Medical History: Reports: Hx Fractures - Finger fracture Past Surgical History: Reports: Hx Abdominal Surgery, Hx Appendectomy, Hx Chol ecystectomy, Hx Orthopedic Surgery - fractured finger - Immunizations Immunizations up to date: Yes Hx Diphtheria, Pertussis, Tetanus Vaccination: Yes - 2012 Hx Pneumococcal Vaccination: 08/23/00 Vertical Provider Document - CONSTITUTIONAL Notes: PHYSICAL EXAMINATION: GENERAL: Well-appearing, well-nourished and in no acute distress. HEAD: Atraumatic, normocephalic. EYES: Pupils equal round and reactive to light, extraocular movements intact, sclera anicteric, conjunctiva are normal. ENT: Nares patent, oropharynx clear without exudates. Moist mucous membranes. NECK: Normal range of motion, supple without lymphadenopathy LUNGS: Breath sounds clear to auscultation bilaterally and equal. No wheezes rales or rhonchi. HEART: Regular rate and rhythm without murmurs ABDOMEN: Soft, nontender, nondistended abdomen. No guarding, no rebound. No masses appreciated. Musculoskeletal: Normal range of motion, no pitting or edema. No cyanosis. NEUROLOGICAL: Cranial nerves grossly intact. Normal speech, normal gait. Normal sensory, motor exams PSYCH: Normal mood, normal affect. SKIN: Warm, Dry, normal turgor, no rashes or lesions noted. - INFECTION CONTROL TRAVEL OUTSIDE OF THE [place] IN LAST 30 DAYS: No Course - Re-evaluation Re-evalutation: Medication refilled per patient request. Patient discharged home in stable condition. 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 Return to the ED with any new or worsening symptoms. Prescriptions: Albuterol Sulfate [Proair HFA Inhalation Aerosol 8.5 gm MDI] 2 puff IH Q4H PRN #1 mdi PRN Reason: Referrals: GIANCARLO CHANCE MD [Primary Care Provider] - Follow up as needed
== END 2019-08-10 17:52 | disposition home or self-care (01) ==
LOC: ER 16:42
DX: Z76.0 Encounter for issue of repeat prescription (principal)
CPT/HCPCS: 99281; J3490

== ENCOUNTER 2019-08-20 13:29 | Emergency (ER) | payer MEDICAID ==
[2019-08-20 13:56] VITALS: BP 117/66
--- NOTE | 2019-08-20 14:02 | ER Document Report ---
HPI - HPI Time Seen by Provider: 08/20/19 13:52 Pain Level: Denies Notes: Patient is a 34-year-old male well-known emergency department who presents complaining of right anterior rt lateral abd area pain from when he jumped up from a seated position and twisted. Patient states that he felt sharp pain at that time, but the pain then immediately resolved. Patient states he does not have any pain in that area anymore. He is able to eat and drink without difficulty. He is urinating normally and having normal bowel movements. Denies drug allergies. Incident occurred earlier this morning. Denies drug allergies. He has not noticed any lumps or bulging to the area. Denies any headache, fever, URI, sore throat, chest pain, palpitations, syncope, cough, shortness of breath, wheeze, dyspnea, abdominal pain, nausea/vomiting/diarrhea, urinary retention, dysuria, hematuria, loss of control of bowel or bladder, numbness/tingling, saddle anesthesia, muscle paralysis/weakness, or rash. - ROS Systems Reviewed and Negative: Yes All other systems reviewed and negative - CONSTITUTIONAL Constitutional: DENIES: Fever, Chills - REPRODUCTIVE Reproductive: DENIES: : Past Medical History - Social History Smoking Status: Unknown if Ever Smoked Family History: Reviewed & Not Pertinent Patient has suicidal ideation: No Patient has homicidal ideation: No Pulmonary Medical History: Reports: Hx Asthma - not on home O2, Hx Bronchitis GI Medical History: Reports: Hx Irritable Bowel - constipation Musculoskeletal Medical History: Reports Hx Arthritis, Reports Hx Musculoskeletal Trauma Psychiatric Medical History: Reports: Hx Anxiety, Hx Bipolar Disorder, Hx Depression, Hx Personality Disorder, Hx Schizoaffective Disorder, Hx Schizophrenia Traumatic Medical History: Reports: Hx Fractures - Finger fracture Past Surgical History: Reports: Hx Abdominal Surgery, Hx Appendectomy, Hx Cholecystectomy, Hx Orthopedic Surgery - fractured finger - Immunizations Immunizations up to date: Yes Hx Diphtheria, Pertussis, Tetanus Vaccination: Yes - 2012 Hx Pneumococcal Vaccination: 08/23/00 Vertical Provider Document - CONSTITUTIONAL Agree With Documented VS: Yes Notes: PHYSICAL EXAMINATION: GENERAL: Well-appearing, well-nourished and in no acute distress. HEAD: Atraumatic, normocephalic. EYES: Pupils equal round and reactive to light, extraocular movements intact, sclera anicteric, conjunctiva are normal. ENT: EAC clear b/l. TM's intact b/l without erythema, fluid, or perforation. Nares patent and without discharge. oropharynx clear without exudates. No tonsilar hypertrophy or erythema. Moist mucous membranes. No sinus tenderness. NECK: Normal range of motion, supple without lymphadenopathy LUNGS: Breath sounds clear to auscultation bilaterally and equal. No wheezes rales or rhonchi. HEART: Regular rate and rhythm without murmurs, rubs, gallops. ABDOMEN: Soft, nontender, nondistended abdomen. No guarding, no rebound. No obvious hernia. Normal bowel sounds present. No CVA tenderness bilaterally. Dickinson negative. No tenderness at McBurney point. Musculoskeletal: Rt hip/LE: FROM to passive/active. Strength 5+/5. Extremities: No cyanosis, clubbing, or edema b/l. Peripheral pulses 2+. Capillary refill less than 3 seconds. NEUROLOGICAL: Cranial nerves grossly intact. Normal speech, normal gait. Normal sensory, motor exams PSYCH: Normal mood, normal affect. SKIN: Warm, Dry, normal turgor, no rashes or lesions noted. - INFECTION CONTROL TRAVEL OUTSIDE OF THE [place] IN LAST 30 DAYS: No Course - Re-evaluation Re-evalutation: 08/20/19 14:00 Patient is an afebrile, well-hydrated, 34yo male who presents to the ED with Rt lateroanterior abd wall pain which I suspect to be a strain. Patient noticed an immediate pain when he jumped up quickly from a seated position and twisted his abdomen which quickly resolved thereafter and has not returned suggesting a musculoskeletal etiology is primary etiology. Vitals are acceptable without any significant tachycardia, tachypnea, or hypoxia. PE is otherwise unremarkable for any neurovascular compromise, obvious tendon/ligament rupture, obvious fracture/dislocation, septic joint. Patient is nontoxic-appearing. Patient is able to ambulate and weight-bear. No other labs or imaging warranted at this time based on H&P. Appendicitis obs reviewed thoroughly. Conservative measures otherwise for symptoms. Recheck with your PCM in 3-5 days. Consider consult orthopedics. Return to the ED with any worsening/concerning symptoms otherwise as reviewed in discharge. Patient is in agreement. - Vital Signs Vital signs: Temp Pulse Resp BP Pulse Ox 98.3 F 72 117/66 97 08/20/19 13:51 08/20/19 13:51 08/20/19 13:51 08/20/19 13:51 Discharge - Discharge Clinical Impression: Abdominal wall pain Condition: Stable Disposition: HOME, SELF-CARE Instructions: Observation for Appendicitis ([facility]) Additional Instructions: Rest, Ice, Compression, Elevation Tylenol/ibuprofen as needed Light stretches daily Strength exercises as able Moist heat and massage may help F/u with your PCP in 3-5 days for a recheck Consider consult(s) with Orthopedics/physical therapy for ongoing/worsening symptoms Return to the ED with any worsening symptoms and/or development of fever, headache, chest pain, palpitations, syncope, shortness of breath, trouble breathing, abdominal pain, n/v/d, muscle weakness/paralysis, numbness/tingling, swelling, redness, or other worsening symptoms that are concerning to you. Referrals: GIANCARLO CHANCE MD [Primary Care Provider] - Follow up as needed
== END 2019-08-20 14:24 | disposition home or self-care (01) ==
LOC: ER 13:29
DX: R10.9 Unspecified abdominal pain (principal); Z90.49 Acquired absence of other specified parts of digestive tract
CPT/HCPCS: 99283

== ENCOUNTER 2019-08-25 07:44 | Emergency (ER) | payer MEDICAID ==
[2019-08-25 12:37] VITALS: BP 133/115
--- NOTE | 2019-08-25 19:13 | ER Document Report ---
Entered by HETAL ENAMORADO SCRIBE 08/25/19 1059 Acting as scribe for:TAURUS LEW IV, MD ED Skin Rash/Insect Bite/Abscs - General Chief Complaint: Rash Stated Complaint: SKIN ISSUE Time Seen by Provider: 08/25/19 10:58 Primary Care Provider: GIANCARLO CHANCE MD [Primary Care Provider] - Follow up as needed Mode of Arrival: Ambulatory Information source: Patient Notes: This 34 year old male patient presents to the ED today with complaints of a rash on his left arm that began prior to arrival. Patient states that he was concerned that that rash may have gone into his blood stream. Patient notes that the rash appeared as red bumps. TRAVEL OUTSIDE OF THE [place] IN LAST 30 DAYS: No - Related Data Allergies/Adverse Reactions: No Known Allergies Allergy (Verified 08/25/19 07:54) Past Medical History - General Information source: Patient - Social History Smoking Status: Unknown if Ever Smoked Cigarette use (# per day): No Chew tobacco use (# tins/day): No Smoking Education Provided: No Family History: Reviewed & Not Pertinent Patient has suicidal ideation: No Patient has homicidal ideation: No Pulmonary Medical History: Reports: Hx Asthma - not on home O2, Hx Bronchitis GI Medical History: Reports: Hx Irritable Bowel - constipation Musculoskeletal Medical History: Reports Hx Arthritis, Reports Hx Musculoskeletal Trauma Psychiatric Medical History: Reports: Hx Anxiety, Hx Bipolar Disorder, Hx Depression, Hx Personality Disorder, Hx Schizoaffective Disorder, Hx Schizophrenia Traumatic Medical History: Reports: Hx Fractures - Finger fracture Past Surgical History: Reports: Hx Abdominal Surgery, Hx Appendectomy, Hx Cholecystectomy, Hx Orthopedic Surgery - fractured finger - Immunizations Immunizations up to date: Yes Hx Diphtheria, Pertussis, Tetanus Vaccination: Yes - 2012 Hx Pneumococcal Vaccination: 08/23/00 Review of Systems - Review of Systems Constitutional: No symptoms reported EENT: No symptoms reported Cardiovascular: No symptoms reported Respiratory: No symptoms reported Gastrointestinal: No symptoms reported Genitourinary: No symptoms reported Male Genitourinary: No symptoms reported Musculoskeletal: No symptoms reported Skin: See HPI, Rash Hematologic/Lymphatic: No symptoms reported Neurological/Psychological: No symptoms reported -: Yes All other systems reviewed and negative Physical Exam - Vital signs Vitals: Temp Pulse Resp BP Pulse Ox 98.1 F 80 20 123/85 91 L 08/25/19 07:49 08/25/19 07:49 08/25/19 07:49 08/25/19 07:49 08/25/19 07:49 Interpretation: Normal - General General appearance: Appears well, Alert In distress: None - HEENT Head: Normocephalic, Atraumatic Eyes: Normal Pupils: PERRL - Respiratory Respiratory status: No respiratory distress Chest status: Nontender Breath sounds: Normal Chest palpation: Normal - Cardiovascular Rhythm: Regular Heart sounds: Normal auscultation Murmur: No - Abdominal Inspection: Normal Distension: No distension Bowel sounds: Normal Tenderness: Nontender Organomegaly: No organomegaly - Back Back: Normal, Nontender - Extremities General upper extremity: Normal inspection, Other - No apparent rash on LE noted by the patient's admission General lower extremity: Normal inspection - Neurological Neuro grossly intact: Yes - Psychological Associated symptoms: Normal affect, Normal mood - Skin Skin Temperature: Warm Skin Moisture: Dry Skin Color: Normal Skin irregularity: negative: Rash Location of irregularity: negative: Extremities Course - Vital Signs Vital signs: Temp Pulse Resp BP Pulse Ox 98.1 F 80 20 123/85 91 L 08/25/19 07:49 08/25/19 07:49 08/25/19 07:49 08/25/19 07:49 08/25/19 07:49 Discharge - Discharge Clinical Impression: Skin rash Condition: Good Disposition: HOME, SELF-CARE Additional Instructions: Return to the Emergency Department without delay if any worse. HOME CARE INSTRUCTIONS & INFORMATION: Thank you for choosing us for your medical needs. We hope you're satisfied with the care you received. After you leave, you must properly care for your problem and, at the same time, observe its progress. Any condition can change. Some illnesses can change rapidly over hours or days. If your condition worsens, return to the Emergency Department or see your physician promptly. ABOUT YOUR X-RAYS AND EKG'S: If you had an EKG or X-rays taken, they have been read by the Emergency Physician. The X-rays and EKG's will also be read by a Radiologist or Disease Management Nurse within 24 hours. If discrepancies are noted, you will be notified by telephone. Please be certain the ED has a correct telephone number & address where you can be reached. Also, realize that some fractures or abnormalities do not show up on initial X-rays. If your symptoms continue, see your physician. ABOUT YOUR LABORATORY TEST: If you had laboratory tests, the results have been reviewed by the Emergency Physician. Some test results (for example cultures) may not be available for several days. You will be contacted if any test result shows you need additional treatment. Please be certain the ED has a correct telephone number and address where you can be reached. ABOUT YOUR MEDICATIONS: You will receive instructions on how to take your medicine on the prescription label you receive. Additional information may be provided by the Pharmacy. If you have questions afterwards, call the ED for clarification or further instructions. Some prescribed medications may cause drowsiness. Do not perform tasks such as driving a car or operating machinery w ithout consulting your Pharmacist. If you feel you need a refill of pain medication, your condition will need re-evaluation. Please do not call for a refill of any medication. ABOUT YOUR SIGNATURE: Signature of this document acknowledges to followin. Understanding that you received emergency treatment and that you may be released before al medical problems are known or treated. Please be certain the ED has a correct phone number & address where you can be reached. 2. Acknowledgement that you will arrange for follow-up care as recommended. 3. Authorization for the Emergency Physician to provide information to your follow-up Physician in order to maximize your care. AT ANY TIME, IF YOUR SYMPTOMS CHANGE SIGNIFICANTLY OR WORSEN OR YOU DEVELOP NEW SYMPTOMS, RETURN TO THE EMERGENCY DEPARTMENT IMMEDIATELY FOR RE-EVALUATION. OUR GOAL IS TO PROVIDE EXCELLENT MEDICAL CARE! WE HOPE THAT WE HAVE MET YOUR EXPECTATIONS DURING YOUR EMERGENCY DEPARTMENT VISIT AND THAT YOU FEEL YOU HAVE RECEIVED EXCELLENT CARE! Referrals: GIANCARLO CHANCE MD [Primary Care Provider] - Follow up as needed I personally performed the services described in the documentation, reviewed and edited the documentation which was dictated to the scribe in my presence, and it accurately records my words and actions.
== END 2019-08-25 12:36 | disposition home or self-care (01) ==
LOC: ER 07:44
DX: R21 Rash and other nonspecific skin eruption (principal); Z90.49 Acquired absence of other specified parts of digestive tract
CPT/HCPCS: 99282

== ENCOUNTER 2019-08-26 04:41 | Emergency (ER) | payer MEDICAID ==
[2019-08-26 04:52] VITALS: BP 121/75
== END 2019-08-26 09:00 | disposition left against medical advice (07) ==
LOC: ER 04:41
DX: Z53.21 Procedure and treatment not carried out due to patient leaving prior to being seen by health care provider (principal); H57.10 Ocular pain, unspecified eye

== ENCOUNTER 2019-08-27 12:16 | Emergency (ER) | payer MEDICAID ==
[2019-08-27 12:21] VITALS: BP 130/68
[2019-08-27] MEDS ORDERED: METHYLPREDNISOLONE INJ 125 MG/2 ML SDV IM ONE (12:58)
[2019-08-27] MEDS ORDERED: MAG HYDROX/AL HYDROX/SIMETH SUSP 30 ML UDCUP PO ONE (12:59)
[2019-08-27] MEDS ORDERED: METOCLOPRAMIDE HCL ORAL SOLN 10 MG/10 ML UDCUP PO ONE (12:59)
--- NOTE | 2019-08-27 13:00 | ER Document Report ---
ED Medical Screen (RME) - General Chief Complaint: Asthma Exacerbation Stated Complaint: BREATHING PROBLEMS Time Seen by Provider: 08/27/19 12:50 Primary Care Provider: GIANCARLO CHANCE MD [Primary Care Provider] - Follow up as needed Notes: Patient is a 34-year-old male, well-known to this emergency department who presents to the emergency department with a few complaints. His first complaint is that he is short of breath. Patient does have a history of asthma. He also has pain in his epigastric area. He was on his way to [place] this morning and felt a little anxious and ended up having pain in that area. Denies any vomiting. Exam: Tender mid upper abdomen. Expiratory wheezes noted to bilateral bases. I have greeted and performed a rapid initial assessment of this patient. A comprehensive ED assessment and evaluation of the patient, analysis of test results and completion of medical decision making process will be conducted by an additional ED providers. TRAVEL OUTSIDE OF THE [place] IN LAST 30 DAYS: No - Related Data Allergies/Adverse Reactions: No Known Allergies Allergy (Verified 08/25/19 07:54) Past Medical History - Social History Frequency of alcohol use: None Drug Abuse: None Family history: Reviewed & Not Pertinent Pulmonary Medical History: Reports: Hx Asthma - not on home O2, Hx Bronchitis GI Medical History: Reports: Hx Irritable Bowel - constipation Musculoskeltal Medical History: Reports Hx Arthritis, Reports Hx Musculoskeletal Trauma Psychiatric Medical History: Reports: Hx Anxiety, Hx Bipolar Disorder, Hx Depression, Hx Personality Disorder, Hx Schizoaffective Disorder, Hx Schizophrenia Traumatic Medical History: Reports: Hx Fractures - Finger fracture Past Surgical History: Reports: Hx Abdominal Surgery, Hx Appendectomy, Hx Cholecystectomy, Hx Orthopedic Surgery - fractured finger - Immunizations Immunizations up to date: Yes Hx Diphtheria, Pertussis, Tetanus Vaccination: Yes - 2012 Physical Exam - Vital signs Vitals: Temp Pulse Resp BP Pulse Ox 97.9 F 94 16 130/68 H 95 08/27/19 12:20 08/27/19 12:20 08/27/19 12:20 08/27/19 12:08/27/19 12:20 Course - Vital Signs Vital signs: Temp Pulse Resp BP Pulse Ox 97.9 F 94 16 130/68 H 95 08/27/19 12:20 08/27/19 12:20 08/27/19 12:20 08/27/19 12:20 08/27/19 12:20 Doctor's Discharge - Discharge Referrals: GIANCARLO CHANCE MD [Primary Care Provider] - Follow up as needed
[2019-08-27] MEDS ORDERED: IPRATROPIUM/ALBUTEROL 0.5-2.5 MG/3 ML AMPUL NEB ONE ×2 (13:02→16:47)
--- NOTE | 2019-08-27 13:42 | RADIOLOGY REPORT (SQ) ---
EXAM DESCRIPTION: CHEST SINGLE VIEW COMPLETED DATE/TIME: 08/27/2019 1:28 pm REASON FOR STUDY: shortness of breath COMPARISON: AP chest 07/03/2019 EXAM PARAMETERS: NUMBER OF VIEWS: One view. TECHNIQUE: Single frontal radiographic view of the chest acquired. RADIATION DOSE: NA LIMITATIONS: None. FINDINGS: LUNGS AND PLEURA: No opacities, masses or pneumothorax. No pleural effusion. MEDIASTINUM AND HILAR STRUCTURES: No masses. Contour normal. HEART AND VASCULAR STRUCTURES: Heart normal in size. Normal vasculature. BONES: No acute findings. HARDWARE: None in the chest. OTHER: No other significant finding. IMPRESSION: NO ACUTE RADIOGRAPHIC FINDING IN THE CHEST. TECHNICAL DOCUMENTATION: JOB ID: [id number] [employer]- All Rights Reserved Reading location - IP/workstation name: [email or web address]
[2019-08-27 13:50] LABS: ALBUMIN 4.3 g/dL (3.5-5.0); ALKALINE PHOSPHATASE 77 U/L (38-126); ANION GAP 6 (5-19); ASPARTATE AMINO TRANSFERASE 24 U/L (17-59); BILIRUBIN,TOTAL 1.7 mg/dL (0.2-1.3); BLOOD UREA NITROGEN 10 mg/dL (7-20); CALCIUM 9.6 mg/dL (8.4-10.2); CARBON DIOXIDE 31 mmol/L (22-30); CHLORIDE 104 mmol/L (98-107); GLUCOSE 81 mg/dL (75-110); POTASSIUM 4.9 mmol/L (3.6-5.0); TOTAL PROTEIN 7.4 g/dL (6.3-8.2)
[2019-08-27 14:16] LABS: HEMATOCRIT 43.9 % (37.9-51.0); HEMOGLOBIN 14.5 g/dL (13.5-17.0); MEAN CORPUSCULAR HEMOGLOBIN 26.3 pg (27.0-33.4); MEAN CORPUSCULAR VOLUME 80 fl (80-97); PLATELET COUNT 221 10^3/uL (150-450)
[2019-08-27 14:39] LABS: ABSOLUTE LYMPHOCYTES# (MANUAL) 1.1 10^3/uL (0.5-4.7); ABSOLUTE MONOCYTES # (MANUAL) 0.2 10^3/uL (0.1-1.4); BASOPHILS % (MANUAL) 3 % (0-2); LYMPHOCYTES % (MANUAL) 35 % (13-45); MONOCYTES % (MANUAL) 7 % (3-13); SEGMENTED NEUTROPHILS % (MAN) 20 % (42-78); TOTAL CELLS COUNTED 100
[2019-08-27 14:41] LABS: ANISOCYTOSIS SLIGHT; OVALOCYTES SLIGHT; PLATELET CLUMPS PRESENT; PLATELET COMMENT ADEQUATE; PLATELET LARGE PRESENT; POIKILOCYTOSIS SLIGHT
[2019-08-27 14:42] LABS: EOSINOPHILS % (MANUAL) 35 % (0-6)
[2019-08-27] MEDS ORDERED: MAG HYDROX/AL HYDROX/SIMETH SUSP 30 ML UDCUP ONE (16:47)
[2019-08-27] MEDS ORDERED: METHYLPREDNISOLONE INJ 125 MG/2 ML SDV ONE (16:47)
[2019-08-27] MEDS ORDERED: METOCLOPRAMIDE HCL ORAL SOLN 10 MG/10 ML UDCUP ONE (16:48)
--- NOTE | 2019-08-27 17:39 | ER Document Report ---
ED General - General Chief Complaint: Anxiety Stated Complaint: BREATHING PROBLEMS Time Seen by Provider: 08/27/19 12:50 Primary Care Provider: GIANCARLO CHANCE MD [Primary Care Provider] - Follow up as needed TRAVEL OUTSIDE OF THE [place] IN LAST 30 DAYS: No - Related Data Allergies/Adverse Reactions: No Known Allergies Allergy (Verified 08/25/19 07:54) Past Medical History - Social History Smoking Status: Never Smoker Frequency of alcohol use: None Drug Abuse: None Family History: Reviewed & Not Pertinent Patient has suicidal ideation: No Patient has homicidal ideation: No Pulmonary Medical History: Reports: Hx Asthma - not on home O2, Hx Bronchitis GI Medical History: Reports: Hx Irritable Bowel - constipation Musculoskeletal Medical History: Reports Hx Arthritis, Reports Hx Musculoskeletal Trauma Psychiatric Medical History: Reports: Hx Anxiety, Hx Bipolar Disorder, Hx Depression, Hx Personality Disorder, Hx Schizoaffective Disorder, Hx Schizophrenia Traumatic Medical History: Reports: Hx Fractures - Finger fracture Past Surgical History: Reports: Hx Abdominal Surgery, Hx Appendectomy, Hx Cholecystectomy, Hx Orthopedic Surgery - fractured finger - Immunizations Immunizations up to date: Yes Hx Diphtheria, Pertussis, Tetanus Vaccination: Yes - 2012 Hx Pneumococcal Vaccination: 08/23/00 Physical Exam - Vital signs Vitals: Temp Pulse Resp BP Pulse Ox 97.9 F 94 16 130/68 H 95 08/27/19 12:20 08/27/19 12:20 08/27/19 12:20 08/27/19 12:20 08/27/19 12:20 - Notes Notes: Patient presents emerge department planing epigastric pain that started prior to arrival. Says last for about 30 minutes and resolved. Was nonradiating he had no nausea vomiting with this. Appetite is been good no diarrhea fevers or cough. He denies any shortness of breath again says he had no shortness of breath fevers or cough but was noted to have some wheezing upon arrival. He reports abdominal pain is resolved. Past medical history is significant for asthma no diabetes or hypertension Social history does not smoke or drink at all Review of systems pertinent positives and negatives in HPI otherwise all the systems were reviewed and acutely negative PHYSICIAN EXAM -vital signs are noted triage note and note from triage reviewed GENERAL: Well-appearing, well-nourished and in _no acute distress he is sitting drinking disorder and drawing HEAD: Atraumatic, normocephalic. EYES: Pupils equal round and reactive to light, extraocular movements intact, sclera anicteric, conjunctiva are normal. ENT: nares patent, oropharynx clear without exudates. Moist mucous membranes. NECK: supple without lymphadenopathy LUNGS: Breath sounds clear to auscultation bilaterally and equal. No wheezes rales or rhonchi. HEART: Regular rate and rhythm without murmurs ABDOMEN: Soft, nontender, normoactive bowel sounds. EXTREMITIES: No deformity, no edema. NEUROLOGICAL: No focal neurological deficits. Moves all extremities spontaneously and on command. PSYCH: Normal mood, normal affect. SKIN: Warm, Dry, normal turgor, no rashes or lesions noted. BACK-nontender in the midline Course - Re-evaluation Re-evalutation: 08/27/19 17:41 ED patient remained stable he was given 1 breathing treatment here his lungs are clear he says he feels better he was also given a dose of Solu-Medrol Medical decision making patient presents with brief episode of epigastric pain is resolved appears unremarkable he looks well can be discharged home recommend he use his inhaler 4 times a day for the next 5 days and a spacer and prednisone At this time there is no indication for admission. I have discussed the findings with patient/family with return precautions and follow-up recommendations. Verbal discharge instructions given at the bedside and opportunity for questions given. Medication warnings were given if indicated. Patient is in agreement with this plan and has verbalized understanding of return precautions and the need for primary care follow-up as directed.. 08/27/19 17:42 - Vital Signs Vital signs: Temp Pulse Resp BP Pulse Ox 97.9 F 94 16 130/68 H 95 08/27/19 12:20 08/27/19 12:20 08/27/19 12:20 08/27/19 12:20 08/27/19 12:20 - Laboratory Result Diagrams: 08/27/19 13:20 08/27/19 13:20 Laboratory results interpreted by me: 08/27/19 08/27/19 13:20 13:20 WBC 3.0 L MCH 26.3 L Seg Neuts % (Manual) 20 L Eosinophils % (Manual) 35 H Basophils % (Manual) 3 H Abs Neuts (Manual) 0.6 L Absolute Eos (Manual) 1.1 H Carbon Dioxide 31 H Total Bilirubin 1.7 H - Diagnostic Test Radiology reviewed: Reports reviewed Discharge - Discharge Clinical Impression: Asthma exacerbation Qualifiers: Asthma severity: mild Abdominal pain Qualifiers: Abdominal location: epigastric Qualified Code(s): R10.13 - Epigastric pain Disposition: HOME, SELF-CARE Instructions: Abdominal Pain ([facility]), Asthma ([facility]) Prescriptions: Inhaler, Assist Devices [Aerochamber Plus Flow-Vu] 1 each MC ASDIR PRN #1 spacer PRN Reason: Prednisone [Deltasone] 20 mg PO TID #15 tablet Referrals: GIANCARLO CHANCE MD [Primary Care Provider] - Follow up as needed
[2019-08-28 09:41] LABS: PATH REVIEW PATHOLOGIST REVIEWED
== END 2019-08-27 18:22 | disposition home or self-care (01) ==
LOC: ER 12:16
DX: J45.901 Unspecified asthma with (acute) exacerbation (principal); R10.13 Epigastric pain; Z90.49 Acquired absence of other specified parts of digestive tract
CPT/HCPCS: 94640; 99283; 96372; 36415; 83690; 85025; 80053; 71045; J3490 ×2; J2930; J7620

== ENCOUNTER 2019-08-29 23:45 | Emergency (ER) | payer MEDICAID ==
--- NOTE | 2019-08-30 02:15 | ER Document Report ---
ED General - General Chief Complaint: Chest Congestion Stated Complaint: CHEST CONGESTION Time Seen by Provider: 08/30/19 00:44 Primary Care Provider: GIANCARLO CHANCE MD [Primary Care Provider] - Follow up as needed Information source: Patient Notes: 34-year-old man presents to the emergency department homelessness with schizophrenia. He is requesting evaluation for possible flu or something that he may have caught. He denies fever or body aches and pains. He is a frequent ER visitor. TRAVEL OUTSIDE OF THE [place] IN LAST 30 DAYS: No - Related Data Allergies/Adverse Reactions: No Known Allergies Allergy (Verified 08/25/19 07:54) Past Medical History - General Information source: Patient - Social History Smoking Status: Unknown if Ever Smoked Family History: Reviewed & Not Pertinent Patient has suicidal ideation: No Patient has homicidal ideation: No Pulmonary Medical History: Reports: Hx Asthma - not on home O2, Hx Bronchitis GI Medical History: Reports: Hx Irritable Bowel - constipation Musculoskeletal Medical History: Reports Hx Arthritis, Reports Hx Musculoskeletal Trauma Psychiatric Medical History: Reports: Hx Anxiety, Hx Bipolar Disorder, Hx Depression, Hx Personality Disorder, Hx Schizoaffective Disorder, Hx Sc hizophrenia Traumatic Medical History: Reports: Hx Fractures - Finger fracture Past Surgical History: Reports: Hx Abdominal Surgery, Hx Appendectomy, Hx Cholecystectomy, Hx Orthopedic Surgery - fractured finger - Immunizations Immunizations up to date: Yes Hx Diphtheria, Pertussis, Tetanus Vaccination: Yes - 2012 Hx Pneumococcal Vaccination: 08/23/00 Review of Systems - Review of Systems Notes: Constitutional: Negative for fever. HENT: Negative for sore throat. Eyes: Negative for visual changes. Cardiovascular: Negative for chest pain. Respiratory: Negative for shortness of breath. Gastrointestinal: Negative for abdominal pain, vomiting or diarrhea. Genitourinary: Negative for dysuria. Musculoskeletal: Negative for back pain. Skin: Negative for rash. Neurological: Negative for headaches, weakness or numbness. 10 point ROS negative except as marked above and in HPI. Physical Exam - Vital signs Vitals: Temp Pulse Resp BP Pulse Ox 97.3 F 58 L 16 120/68 100 08/29/19 23:50 08/29/19 23:50 08/29/19 23:50 08/29/19 23:50 08/29/19 23:50 - Notes Notes: PHYSICAL EXAMINATION: Physical Exam: General: Well-nourished well-developed male or I have and has has been collected in no acute distress HEENT: NC/AT, pupils equal round and reactive to light, MM moist,nares clear, Neck: supple, no adenopathy, no masses. Lungs: clear, no wheezing, no rales no rhonchi CVS: Regular rate and rhythm no murmur gallop or rub Abdomen: Soft active nontender, no masses, no hepatosplenomegaly Ext: No edema clubbing or cyanosis. Neuro: Alert and responsive, moving all 4 extremities on command, cranial nerves intact. Skin: Intact no open lesions, no rash PSYCH: Corporative and follows directions. Course - Re-evaluation Re-evalutation: 08/30/19 02:12 Patient is doing well resting quietly and in no acute distress. I have explained to him that it is unlikely that he has influenza or acute infection. He is being discharged from the emergency department to follow-up as needed in the outpatient. - Vital Signs Vital signs: Temp Pulse Resp BP Pulse Ox 97.3 F 58 L 16 120/68 100 08/29/19 23:50 08/29/19 23:50 08/29/19 23:50 08/29/19 23:50 08/29/19 23:50 Discharge - Discharge Clinical Impression: Schizophrenia Qualifiers: Schizophrenia type: unspecified Qualified Code(s): F20.9 - Schizophrenia, unspecified Condition: Good Disposition: HOME, SELF-CARE Instructions: Schizophrenia ([facility]) Additional Instructions: Please continue your usual medications, Please follow-up with your doctor, call for appointment as needed. Referrals: GIANCARLO CHANCE MD [Primary Care Provider] - Follow up as needed
[2019-08-30 02:29] VITALS: BP 100/48
== END 2019-08-30 02:32 | disposition home or self-care (01) ==
LOC: ER 23:45
DX: F20.9 Schizophrenia, unspecified (principal); J45.909 Unspecified asthma, uncomplicated; Z59.0 Homelessness
CPT/HCPCS: 99283

== ENCOUNTER 2019-08-30 04:34 | Emergency (ER) | payer MEDICAID ==
[2019-08-30 04:55] VITALS: BP 121/69
--- NOTE | 2019-08-30 05:00 | ER Document Report ---
HPI - HPI Time Seen by Provider: 08/30/19 04:56 Pain Level: 3 Context: Patient is a 34-year-old male that comes emergency department for chief complaint of right ankle pain. He states he thinks he twisted it earlier but he is not sure. He states it seemed swollen earlier but it is not swollen now. He states it hurts intermittently but not at the moment. He states he was hoping he could get an Ludwig wrap for the ankle because he is constantly walking on it. He denies any pain, fall, or any other complaints. Patient has a history of asthma and schizophrenia, he is well-known to this department and is seen here frequently for a variety of reasons. Patient was here earlier today for a separate issue. - REPRODUCTIVE Reproductive: DENIES: : Past Medical History - General Information source: Patient - Social History Smoking Status: Never Smoker Frequency of alcohol use: None Drug Abuse: None Lives with: Alone Family History: Reviewed & Not Pertinent Patient has suicidal ideation: No Patient has homicidal ideation: No Pulmonary Medical History: Reports: Hx Asthma - not on home O2, Hx Bronchitis GI Medical History: Reports: Hx Irritable Bowel - constipation Musculoskeletal Medical History: Reports Hx Arthritis, Reports Hx Musculoskeletal Trauma Psychiatric Medical History: Reports: Hx Anxiety, Hx Bipolar Disorder, Hx Depression, Hx Personality Disorder, Hx Schizoaffective Disorder, Hx Schizophrenia Traumatic Medical History: Reports: Hx Fractures - Finger fracture Past Surgical History: Reports: Hx Abdominal Surgery, Hx Appendectomy, Hx Cholecystectomy, Hx Orthopedic Surgery - fractured finger - Immunizations Immunizations up to date: Yes Hx Diphtheria, Pertussis, Tetanus Vaccination: Yes - 2012 Hx Pneumococcal Vaccination: 08/23/00 Vertical Provider Document - CONSTITUTIONAL General Appearance: WD/WN, No Apparent Distress - INFECTION CONTROL TRAVEL OUTSIDE OF THE [place] IN LAST 30 DAYS: No - HEENT HEENT: Atraumatic, Normal ENT Exam, Normocephalic - NECK Neck: Normal Inspection - RESPIRATORY Respiratory: Breath Sounds Normal, No Respiratory Distress - CARDIOVASCULAR Cardiovascular: Regular Rate, Regular Rhythm - GI/ABDOMEN Gastrointestinal: Abdomen Soft, Abdomen Non-Tender. negative: Abdomen Tender - BACK Back: Normal Inspection - MUSCULOSKELETAL/EXTREMETIES Musculoskeletal/Extremeties: MAEW, FROM, Non-Tender - Right ankle in question with no swelling, tenderness, erythema. Normal cap refill and sensation of the foot. Normal foot, leg, knee, hip exam. Ambulates without difficulty or tenderness noted - NEURO Level of Consciousness: Awake, Alert, Appropriate Motor/Sensory: No Motor Deficit, No Sensory Deficit - DERM Integumentary: Warm, Dry, No Rash Course - Re-evaluation Re-evalutation: Patient indicating right ankle tenderness, thinks her swelling, I do not appreciate swelling. Denies injury. Based on nontender palpation I do not suspect fracture and I do not feel an x-ray is indicated. Patient ambulates without a limp. He is requesting an Ludwig wrap. He was provided with this. Evaluation including lung sounds and vital signs unremarkable. Patient without any other complaints or concerning findings. Stable for discharge. - Vital Signs Vital signs: Temp Pulse Resp BP Pulse Ox 98.2 F 89 16 121/69 98 08/30/19 04:54 08/30/19 04:54 08/30/19 04:54 08/30/19 04:54 08/30/19 04:54 Discharge - Discharge Clinical Impression: Right ankle pain Qualifiers: Chronicity: acute Qualified Code(s): M25.571 - Pain in right ankle and joints of right foot Condition: Stable Disposition: HOME, SELF-CARE Additional Instructions: Your exam is reassuring, I do not suspect a fracture in the ankle. Use Ludwig wrap if needed for support or swelling, take [id number] anti-infl ammatory such as ibuprofen, rest the ankle. Follow-up with primary care. Return for any concerning symptoms including severe swelling or severe pain. Referrals: GIANCARLO CHANCE MD [Primary Care Provider] - Follow up as needed
== END 2019-08-30 05:06 | disposition home or self-care (01) ==
LOC: ER 04:34
DX: M25.571 Pain in right ankle and joints of right foot (principal); J45.909 Unspecified asthma, uncomplicated
CPT/HCPCS: 99283

== ENCOUNTER 2019-09-01 19:17 | Emergency (ER) | payer MEDICAID ==
[2019-09-01 19:39] VITALS: BP 102/72
--- NOTE | 2019-09-01 20:27 | ER Document Report ---
HPI - HPI Time Seen by Provider: 09/01/19 20:20 Pain Level: Denies Notes: Patient is a 34-year-old male well-known to the emergency department who presents for evaluation of 2 mosquito bites 1 to his left arm and 1 to his left shoulder that occurred about couple hours ago. Patient does not have any pain associated or itching. He is otherwise feeling well. He is able to eat and drink without difficulty. He is urinating normally. Denies drug allergies. Denies any headache, fever, neck pain, URI, sore throat, chest pain, palpitations, syncope, cough, shortness of breath, wheeze, dyspnea, abdominal pain, nausea/vomiting/diarrhea, urinary retention, dysuria, hematuria, loss of control of bowel or bladder, numbness/tingling, or rash. - ROS Systems Reviewed and Negative: Yes All other systems reviewed and negative - CONSTITUTIONAL Constitutional: DENIES: Fever, Chills - NEURO Neurology: DENIES: Headache, Weakness, Vision blurred, Dizzinesss / Vertigo - CARDIOVASCULAR Cardiovascular: DENIES: Chest pain - RESPIRATORY Respiratory: DENIES: Trouble Breathing, Coughing - GASTROINTESTINAL Gastrointestinal: DENIES: Abdominal Pain, Black / Bloody Stools - REPRODUCTIVE Reproductive: DENIES: : Past Medical History - Social History Smoking Status: Former Smoker Frequency of alcohol use: Rare Drug Abuse: None Family History: Reviewed & Not Pertinent Patient has suicidal ideation: No Patient has homicidal ideation: No Pulmonary Medical History: Reports: Hx Asthma - not on home O2, Hx Bronchitis GI Medical History: Reports: Hx Irritable Bowel - constipation Musculoskeletal Medical History: Reports Hx Arthritis, Reports Hx Musculoskeletal Trauma Psychiatric Medical History: Reports: Hx Anxiety, Hx Bipolar Disorder, Hx Depression, Hx Personality Disorder, Hx Schizoaffective Disorder, Hx Schizophrenia Traumatic Medical History: Reports: Hx Fractures - Finger fracture Past Surgical History: Reports: Hx Abdominal Surgery, Hx Appendectomy, Hx Cholecystectomy, Hx Orthopedic Surgery - fractured finger - Immunizations Immunizations up to date: Yes Hx Diphtheria, Pertussis, Tetanus Vaccination: Yes - 2012 Hx Pneumococcal Vaccination: 08/23/00 Vertical Provider Document - CONSTITUTIONAL Agree With Documented VS: Yes Notes: PHYSICAL EXAMINATION: GENERAL: Well-appearing, well-nourished and in no acute distress. NECK: Normal range of motion, supple without lymphadenopathy LUNGS: Breath sounds clear to auscultation bilaterally and equal. No wheezes rales or rhonchi. HEART: Regular rate and rhythm without murmurs, rubs, gallops. Musculoskeletal: FROM to passive/active. Strength 5+/5. Extremities: No cyanosis, clubbing, or edema b/l. Peripheral pulses 2+. Capillary refill less than 3 seconds. NEUROLOGICAL: Cranial nerves grossly intact. Normal speech, normal gait. Normal sensory, motor exams PSYCH: Normal mood, normal affect. SKIN: There are two very small non-reactive erythemic macular areas on the skin that is the location of alleged insect bite. Non-tender. No induration or fluctuance, no streaks or purulence. - INFECTION CONTROL TRAVEL OUTSIDE OF THE [place] IN LAST 30 DAYS: No Course - Re-evaluation Re-evalutation: 09/01/19 20:25 Patient is an afebrile, well-hydrated, 34-year-old male who presents for insect bite to the skin that is otherwise not causing any secondary infection or significant allergic reaction at this time. Vitals are acceptable without significant tachycardia, tachypnea, hypoxia. PE is otherwise unremarkable. Patient is nontoxic-appearing and is tolerating p.o. without difficulty. Low suspicion for any necrotizing fasciitis, SJS, SSS, drug reaction, sepsis, meningitis, syphilis, Lyme disease, [place] spotted fever, or other systemic emergent condition at this time. Patient aware that condition can change from initial presentation and he needs to monitor symptoms closely and seek medical attention with any acute changes. Recheck with your PCM in 3-5 days. Consider consult with dermatology. Return to the ED with any other worsening/concerning symptoms as reviewed. Patient is in agreement. - Vital Signs Vital signs: Temp Pulse Resp BP Pulse Ox 99.0 F 93 18 102/72 09/01/19 19:38 09/01/19 19:38 09/01/19 19:38 09/01/19 19:38 Discharge - Discharge Clinical Impression: Insect bite Qualifiers: Encounter type: initial encounter Site of insect bite: upper arm Laterality: left Qualified Code(s): S40.862A - Insect bite (nonvenomous) of left upper arm, initial encounter; W57.XXXA - Bitten or stung by nonvenomous insect and other nonvenomous arthropods, initial encounter Condition: Stable Disposition: HOME, SELF-CARE Additional Instructions: Keep the skin clean Wash with soap and water Tylenol/ibuprofen if needed Triple antibiotic ointment daily if any break in the skin Benadryl cream may help if needed Monitor for any worsening symptoms Recheck with your PCM in 3-5 days Return to the ED with any worsening symptoms and/or development of fever, headache, chest pain, palpitations, syncope, shortness of breath, trouble breathing, abdominal pain, n/v/d, abscess, purulent discharge, red streaks, worsening swelling, or other worsening symptoms that are concerning to you. Referrals: GIANCARLO CHANCE MD [Primary Care Provider] - Follow up as needed
== END 2019-09-01 20:23 | disposition home or self-care (01) ==
LOC: ER 19:17
DX: S40.862A Insect bite (nonvenomous) of left upper arm, initial encounter (principal); S40.262A Insect bite (nonvenomous) of left shoulder, initial encounter; W57.XXXA Bitten or stung by nonvenomous insect and other nonvenomous arthropods, initial encounter; J45.909 Unspecified asthma, uncomplicated; Z87.891 Personal history of nicotine dependence
CPT/HCPCS: 99281

== ENCOUNTER 2019-09-02 05:43 | Emergency (ER) | payer MEDICAID ==
--- NOTE | 2019-09-02 09:21 | ER Document Report ---
ED General - General Chief Complaint: Insect Bite Stated Complaint: BUG BITE Time Seen by Provider: 09/02/19 08:55 Primary Care Provider: GIANCARLO CHANCE MD [Primary Care Provider] - Follow up in 3-5 days Notes: 34-year-old male who is well-known to this ER presents for insect bite to his head. Patient was seen for same yesterday and discharged. Patient stated yesterday that he had insect bites to his left arm and today he is saying he noticed one on his head. Patient states that this time that it is gone. Patient denies any fever, chills, abdominal pain, nausea/vomiting, chest pain, shortness of breath. TRAVEL OUTSIDE OF THE [place] IN LAST 30 DAYS: No - Related Data Allergies/Adverse Reactions: No Known Allergies Allergy (Verified 09/01/19 20:17) Past Medical History - Social History Smoking Status: Never Smoker Family History: Reviewed & Not Pertinent Patient has suicidal ideation: No Patient has homicidal ideation: No Pulmonary Medical History: Reports: Hx Asthma - not on home O2, Hx Bronchitis GI Medical History: Reports: Hx Irritable Bowel - constipation Musculoskeletal Medical History: Reports Hx Arthritis, Reports Hx Musculoskeletal Trauma Psychiatric Medical History: Reports: Hx Anxiety, Hx Bipolar Disorder, Hx Depression, Hx Personality Disorder, Hx Schizoaffective Disorder, Hx Schizophrenia Traumatic Medical History: Reports: Hx Fractures - Finger fracture Past Surgical History: Reports: Hx Abdominal Surgery, Hx Appendectomy, Hx Cholecystectomy, Hx Orthopedic Surgery - fractured finger - Immunizations Immunizations up to date: Yes Hx Diphtheria, Pertussis, Tetanus Vaccination: Yes - 2012 Hx Pneumococcal Vaccination: 08/23/00 Review of Systems - Review of Systems Notes: Constitutional: Negative for fever. HENT: Negative for sore throat. Eyes: Negative for visual changes. Cardiovascular: Negative for chest pain. Respiratory: Negative for shortness of breath. Gastrointestinal: Negative for abdominal pain, vomiting or diarrhea. Genitourinary: Negative for dysuria. Musculoskeletal: Negative for back pain. Skin: Positive for insect bite. Negative for rash. Neurological: Negative for headaches, weakness or numbness. 10 point ROS negative except as marked above and in HPI. Physical Exam - Vital signs Vitals: Temp Pulse Resp BP Pulse Ox 97.9 F 62 20 117/58 L 100 09/02/19 06:18 09/02/19 06:18 09/02/19 06:18 09/02/19 06:18 09/02/19 06:18 - Notes Notes: GENERAL: Well-appearing, well-nourished and in no acute distress. HEAD: Atraumatic, normocephalic. No obvious insect bite noted EYES: Extraocular movements intact, sclera anicteric, conjunctiva are normal. NECK: Normal range of motion, supple without lymphadenopathy or JVD. EXTREMITIES: Normal range of motion, no pitting or edema. No clubbing or cyanosis. NEUROLOGICAL: Cranial nerves II through XII grossly intact. Normal speech, normal gait. PSYCH: Normal mood, normal affect. SKIN: Warm, Dry, normal turgor, no rashes or lesions noted. Course - Re-evaluation Re-evalutation: 09/02/19 nontoxic, well-appearing 34-year-old male well-known to this ER presents for another insect bite which he states is now gone. Patient was seen for 2 insect bites to his arm yesterday and discharge. Patient states he had one on his scalp which she has noticed that it is gone now. Patient is afebrile non-tachycardic. PE is otherwise unremarkable. No further imaging/labs needed based on H&P. Patient provided with return precautions. Patient given close follow-up with his PCP. Patient voices understanding and agrees with plan of care. - Vital Signs Vital signs: Temp Pulse Resp BP Pulse Ox 97.9 F 62 20 117/58 L 100 09/02/19 06:18 09/02/19 06:18 09/02/19 06:18 09/02/19 06:18 09/02/19 06:18 Discharge - Discharge Clinical Impression: Insect bite Qualifiers: Encounter type: subsequent encounter Site of insect bite: head Site of insect bite of head: scalp Qualified Code(s): S00.06XD - Insect bite (nonvenomous) of scalp, subsequent encounter Condition: Stable Disposition: HOME, SELF-CARE Additional Instructions: Please follow-up with your primary care doctor in 3 to 5 days. Please follow the instructions that were given to you by the PA that saw you yesterday for the same thing. Return to ER for any worsening symptoms, including fever, abdominal pain, nausea/vomiting, chest pain, shortness of breath, or any other symptoms that are concerning to you. Referrals: GIANCARLO CHANCE MD [Primary Care Provider] - Follow up in 3-5 days
[2019-09-02 09:30] VITALS: BP 110/67
== END 2019-09-02 09:30 | disposition home or self-care (01) ==
LOC: ER 05:43
DX: S00.06XD Insect bite (nonvenomous) of scalp, subsequent encounter (principal); S40.862D Insect bite (nonvenomous) of left upper arm, subsequent encounter; W57.XXXD Bitten or stung by nonvenomous insect and other nonvenomous arthropods, subsequent encounter; J45.909 Unspecified asthma, uncomplicated
CPT/HCPCS: 99281

== ENCOUNTER 2019-09-05 08:16 | Emergency (ER) | payer MEDICAID ==
[2019-09-05 09:55] VITALS: BP 128/77
--- NOTE | 2019-09-05 17:09 | ER Document Report ---
Entered by HETAL ENAMORADO SCRIBE 09/05/19 0903 Acting as scribe for:LENIN SOLIS MD ED General - General Chief Complaint: Skin Problem Stated Complaint: SKIN ISSUE Time Seen by Provider: 09/05/19 09:00 Primary Care Provider: GIANCARLO CHANCE MD [Primary Care Provider] - Follow up as needed Mode of Arrival: Ambulatory Information source: Patient Notes: This 34 year old male patient presents to the ED today with complaints of "triggers pouring out of his skin" on his left arm near his elbow that began prior to arrival. Patient states that he treated the bumps with soap and it seems to be clearing up now. Patient was seen here x4 days ago for an insect bite on his left arm and shoulder that cleared up on its own. Patient was also seen here x3 days ago for an insect bite on his head that was also gone. TRAVEL OUTSIDE OF THE [place] IN LAST 30 DAYS: No - Related Data Allergies/Adverse Reactions: No Known Allergies Allergy (Verified 09/01/19 20:17) Past Medical History - General Information source: Patient - Social History Smoking Status: Unknown if Ever Smoked Cigarette use (# per day): No Chew tobacco use (# tins/day): No Smoking Education Provided: No Family History: Reviewed & Not Pertinent Pulmonary Medical History: Reports: Hx Asthma - not on home O2, Hx Bronchitis GI Medical History: Reports: Hx Irritable Bowel - constipation Musculoskeletal Medical History: Reports Hx Arthritis, Reports Hx Musculoskeletal Trauma Psychiatric Medical History: Reports: Hx Anxiety, Hx Bipolar Disorder, Hx Depression, Hx Personality Disorder, Hx Schizoaffective Disorder, Hx Schizophrenia Traumatic Medical History: Reports: Hx Fractures - Finger fracture Past Surgical History: Reports: Hx Abdominal Surgery, Hx Appendectomy, Hx Cholecystectomy, Hx Orthopedic Surgery - fractured finger - Immunizations Immunizations up to date: Yes Hx Diphtheria, Pertussis, Tetanus Vaccination: Yes - 2012 Hx Pneumococcal Vaccination: 08/23/00 Review of Systems - Review of Systems Constitutional: No symptoms reported EENT: No symptoms reported Cardiovascular: No symptoms reported Respiratory: No symptoms reported Gastrointestinal: No symptoms reported Genitourinary: No symptoms reported Male Genitourinary: No symptoms reported Musculoskeletal: No symptoms reported Skin: See HPI, Other - Bumps from insect bite Hematologic/Lymphatic: No symptoms reported Neurological/Psychological: No symptoms reported -: Yes All other systems reviewed and negative Physical Exam - Vital signs Vitals: Temp Pulse Resp BP Pulse Ox 98.2 F 79 18 132/76 H 97 09/05/19 08:19 09/05/19 08:19 09/05/19 08:19 09/05/19 08:19 09/05/19 08:19 Interpretation: Normal - General General appearance: Appears well, Alert - HEENT Head: Normocephalic, Atraumatic Eyes: Normal Pupils: PERRL - Respiratory Respiratory status: No respiratory distress Chest status: Nontender Breath sounds: Normal Chest palpation: Normal - Cardiovascular Rhythm: Regular Heart sounds: Normal auscultation Murmur: No - Abdominal Inspection: Normal Distension: No distension Bowel sounds: Normal Tenderness: Nontender Organomegaly: No organomegaly - Back Back: Normal, Nontender - Extremities General upper extremity: Normal inspection General lower extremity: Normal inspection - Neurological Neuro grossly intact: Yes - Psychological Associated symptoms: Normal affect, Normal mood - Skin Skin Temperature: Warm Skin Moisture: Dry Skin Color: Normal Course - Vital Signs Vital signs: Temp Pulse Resp BP Pulse Ox 98.2 F 57 L 18 128/77 H 99 09/05/19 09:54 09/05/19 09:54 09/05/19 09:54 09/05/19 09:54 09/05/19 09:54 Discharge - Discharge Clinical Impression: Bumps on skin Condition: Stable Disposition: HOME, SELF-CARE Additional Instructions: Place soap on the skin bumps if it continues to work like it has been. Follow-up with your primary care provider if any further problems. Referrals: GIANCARLO CHANCE MD [Primary Care Provider] - Follow up as needed Scribe Attestation: 09/05/19 09:25 I personally performed the services described in the documentation, reviewed and edited the documentation which was dictated to the scribe in my presence, and it accurately records my words and actions. I personally performed the services described in the documentation, reviewed and edited the documentation which was dictated to the scribe in my presence, and it accurately records my words and actions.
== END 2019-09-05 09:54 | disposition home or self-care (01) ==
LOC: ER 08:16
DX: T14.8XXA Other injury of unspecified body region, initial encounter (principal); W57.XXXA Bitten or stung by nonvenomous insect and other nonvenomous arthropods, initial encounter; J45.909 Unspecified asthma, uncomplicated
CPT/HCPCS: 99283

== ENCOUNTER 2019-09-05 18:04 | Emergency (ER) | payer MEDICAID ==
[2019-09-05 18:23] VITALS: BP 120/69
--- NOTE | 2019-09-05 20:08 | ER Document Report ---
HPI - HPI Time Seen by Provider: 09/05/19 19:57 Pain Level: 0 Notes: Patient is a 34-year-old male who presents for the second time today, but states he is here primarily for a question and not a full medical exam. Patient states that pertaining to possible chiggers/insect bites he wants to know if they just will get into his blood stream or brain. He has been seen for some areas of possible insect bites over the last several visits. He is otherwise feeling well. He has no other concerns or complaints. Denies drug allergies. Denies any headache, fever, head injury, neck pain, changes in vision/speech/mentation/hearing, URI, sore throat, chest pain, palpitations, syncope, cough, shortness of breath, wheeze, dyspnea, abdominal pain, nausea/vomiting/diarrhea, urinary retention, dysuria, hematuria. - ROS Systems Reviewed and Negative: Yes All other systems reviewed and negative - CONSTITUTIONAL Constitutional: DENIES: Fever, Chills - REPRODUCTIVE Reproductive: DENIES: : Past Medical History - Social History Smoking Status: Former Smoker Family History: Reviewed & Not Pertinent Patient has suicidal ideation: No Patient has homicidal ideation: No Pulmonary Medical History: Reports: Hx Asthma - not on home O2, Hx Bronchitis GI Medical History: Reports: Hx Irritable Bowel - constipation Musculoskeletal Medical History: Reports Hx Arthritis, Reports Hx Musculoskeletal Trauma Psychiatric Medical History: Reports: Hx Anxiety, Hx Bipolar Disorder, Hx Depression, Hx Personality Disorder, Hx Schizoaffective Disorder, Hx Schizophrenia Traumatic Medical History: Reports: Hx Fractures - Finger fracture Past Surgical History: Reports: Hx Abdominal Surgery, Hx Appendectomy, Hx Cholecystectomy, Hx Orthopedic Surgery - fractured finger - Immunizations Immunizations up to date: Yes Hx Diphtheria, Pertussis, Tetanus Vaccination: Yes - 2012 Hx Pneumococcal Vaccination: 08/23/00 Vertical Provider Document - CONSTITUTIONAL Agree With Documented VS: Yes Notes: PHYSICAL EXAMINATION: GENERAL: Well-appearing, well-nourished and in no acute distress. HEAD: Atraumatic, normocephalic. EYES: Pupils equal round and reactive to light, extraocular movements intact, sclera anicteric, conjunctiva are normal. ENT: EAC clear b/l. TM's intact b/l without erythema, fluid, or perforation. Nares patent and without discharge. oropharynx clear without exudates. No tonsilar hypertrophy or erythema. Moist mucous membranes. No sinus tenderness. NECK: Normal range of motion, supple without lymphadenopathy LUNGS: Breath sounds clear to auscultation bilaterally and equal. No wheezes rales or rhonchi. HEART: Regular rate and rhythm without murmurs, rubs, gallops. Musculoskeletal: FROM to passive/active. Strength 5+/5. Extremities: No cyanosis, clubbing, or edema b/l. Peripheral pulses 2+. Capillary refill less than 3 seconds. NEUROLOGICAL: Cranial nerves grossly intact. Normal speech, normal gait. Normal sensory, motor exams PSYCH: Normal mood, normal affect. SKIN: Warm, Dry, normal turgor, no rashes or lesions noted. There is some dry skin noted to his left arm and behind his left ear, no obvious swelling or erythema noted. No insects noted. - INFECTION CONTROL TRAVEL OUTSIDE OF THE [place] IN LAST 30 DAYS: No Course - Re-evaluation Re-evalutation: 09/05/19 20:13 Patient is an afebrile, well-hydrated, 34-year-old male who presents for worried well visit. Vitals are acceptable. PE is otherwise unremarkable. Given unremarkable visit this morning. No labs or imaging warranted. Low suspicion for any other systemic or emergent condition at this time. Patient to recheck with his PCM this week. Return to the ED with any other worsening/concerning symptoms. Patient is in agreement. - Vital Signs Vital signs: Temp Pulse Resp BP Pulse Ox 98.6 F 77 20 120/69 96 09/05/19 18:22 09/05/19 18:22 09/05/19 18:22 09/05/19 18:22 09/05/19 18:22 Discharge - Discharge Clinical Impression: Bumps on skin Condition: Stable Disposition: HOME, SELF-CARE Additional Instructions: Keep the skin clean Wash with soap and water Tylenol/ibuprofen if needed Triple antibiotic ointment as needed Take medication as directed Monitor for any worsening symptoms Recheck with your PCM in 3-5 days Return to the ED with any worsening symptoms and/or development of fever, headache, chest pain, palpitations, syncope, shortness of breath, trouble breathing, abdominal pain, n/v/d, abscess, purulent discharge, red streaks, worsening swelling, or other worsening symptoms that are concerning to you. Referrals: OGIANCARLO ROJAS MD [Primary Care Provider] - Follow up as needed
== END 2019-09-05 23:06 | disposition home or self-care (01) ==
LOC: ER 18:04
DX: R22.9 Localized swelling, mass and lump, unspecified (principal); J45.909 Unspecified asthma, uncomplicated; Z87.891 Personal history of nicotine dependence
CPT/HCPCS: 99283

== ENCOUNTER 2019-09-06 03:17 | Emergency (ER) | payer MEDICAID ==
--- NOTE | 2019-09-06 06:40 | ER Document Report ---
ED General - General Chief Complaint: Insect Bite Stated Complaint: POSS BUG BITE Time Seen by Provider: 09/06/19 06:09 Primary Care Provider: GIANCARLO CHANCE MD [Primary Care Provider] - Follow up as needed TRAVEL OUTSIDE OF THE [place] IN LAST 30 DAYS: No - HPI Notes: Mr. Huddleston is a 34-year-old homeless male seen for the third time in 24 hours with a chief complaint of itchy rash of abdominal wall. This was previously assessed as irritation secondary to insect bites possibly chiggers. Local treatment was advised. No new complaints or complicating factors. - Related Data Allergies/Adverse Reactions: No Known Allergies Allergy (Verified 09/05/19 19:56) Past Medical History - Social History Smoking Status: Former Smoker Family History: Reviewed & Not Pertinent Patient has suicidal ideation: No Patient has homicidal ideation: No Pulmonary Medical History: Reports: Hx Asthma - not on home O2, Hx Bronchitis GI Medical History: Reports: Hx Irritable Bowel - constipation Musculoskeletal Medical History: Reports Hx Arthritis, Reports Hx Musculoskeletal Trauma Psychiatric Medical History: Reports: Hx Anxiety, Hx Bipolar Disorder, Hx Depression, Hx Personality Disorder, Hx Schizoaffective Disorder, Hx Schizophrenia Traumatic Medical History: Reports: Hx Fractures - Finger fracture Past Surgical History: Reports: Hx Abdominal Surgery, Hx Appendectomy, Hx Cholecystectomy, Hx Orthopedic Surgery - fractured finger - Immunizations Immunizations up to date: Yes Hx Diphtheria, Pertussis, Tetanus Vaccination: Yes - 2012 Hx Pneumococcal Vaccination: 08/23/00 Review of Systems - Review of Systems Notes: Constitutional: Negative for fever. HENT: Negative for sore throat. Eyes: Negative for visual changes. Cardiovascular: Negative for chest pain. Respiratory: Negative for shortness of breath. Gastrointestinal: Negative for abdominal pain, vomiting or diarrhea. Genitourinary: Negative for dysuria. Musculoskeletal: Negative for back pain. Skin: As per HPI. Neurological: Negative for headaches, weakness or numbness. 10 point ROS negative except as marked above and in HPI. Physical Exam - Vital signs Vitals: Temp Pulse Resp BP Pulse Ox 98.4 F 57 L 20 124/81 97 09/06/19 03:45 09/06/19 03:45 09/06/19 03:45 09/06/19 03:45 09/06/19 03:45 - Notes Notes: GENERAL: Well-developed well-nourished appearing in no acute distress. SKIN: Good turgor. Superficial excoriated areas of abdominal wall right periumbilical area. HEAD: Normocephalic atraumatic. EYES: PERRLA. EOMI. Conjunctivae and sclerae clear. EARS: CANALS AND TMS CLEAR. NOSE: CLEAR. MOUTH: Moist mucosa. Good dentition. No stridor or edema. No drooling. NECK: Supple. No masses or thyromegaly. No adenopathy. Carotids 2+ without bruits. No JVD. BACK: Symmetrical without tenderness. CHEST: Respirations unlabored. Breath sounds clear and symmetrical. HEART: Regular rhythm. No murmur gallop or rub. ABDOMEN: Healed periumbilical surgical scar. Soft nontender without masses, organomegaly or rebound. Bowel sounds normally active. No bruits. GENITALIA: Deferred. EXTREMITIES: No edema. No calf tenderness. Cap refill less than 1.5 seconds. Dorsalis pedis and posterior tibial pulses 3+ and symmetrical. NEUROLOGICAL: GCS 15. Alert and oriented x3. Normal gait. Fluent speech. Cranial nerves II through XII intact. Sensorimotor and cerebellar normal. Normal tone. PSYCHIATRIC: Appropriate affect. Course - Re-evaluation Re-evalutation: 09/06/19 06:39 Patient is reassured and advised to continue treatment as previously recommended. - Vital Signs Vital signs: Temp Pulse Resp BP Pulse Ox 98.4 F 57 L 20 124/81 97 09/06/19 03:45 09/06/19 03:45 09/06/19 03:45 09/06/19 03:45 09/06/19 03:45 Discharge - Discharge Clinical Impression: Insect bite Qualifiers: Encounter type: subsequent encounter Site of insect bite: abdominal wall Qualified Code(s): S30.861D - Insect bite (nonvenomous) of abdominal wall, subsequent encounter; W57.XXXD - Bitten or stung by nonvenomous insect and other nonvenomous arthropods, subsequent encounter Condition: Stable Disposition: HOME, SELF-CARE Referrals: GIANCARLO CHANCE MD [Primary Care Provider] - Follow up as needed
[2019-09-06 07:10] VITALS: BP 119/56
== END 2019-09-06 07:10 | disposition home or self-care (01) ==
LOC: ER 03:17
DX: S30.861A Insect bite (nonvenomous) of abdominal wall, initial encounter (principal); R21 Rash and other nonspecific skin eruption; W57.XXXA Bitten or stung by nonvenomous insect and other nonvenomous arthropods, initial encounter; Z90.49 Acquired absence of other specified parts of digestive tract
CPT/HCPCS: 99281

== ENCOUNTER 2019-09-09 18:42 | Emergency (ER) | payer MEDICAID, OTHER ==
[2019-09-09 19:04] VITALS: BP 136/78
[2019-09-09] MEDS ORDERED: ONDANSETRON ODT 4 MG TAB (6 TAB/ER DISP) PO PRN (19:29)
--- NOTE | 2019-09-09 19:33 | ER Document Report ---
HPI - HPI Time Seen by Provider: 09/09/19 19:24 Pain Level: Denies Notes: Patient is a 34-year-old male well-known to the emergency department who presents complaining of having 1 episode of vomiting prior to arrival with no further residual nausea. Patient states that he ate a food that he believes did not agree with him well. Patient states that he has been feeling well otherwise before and after. He is urinating normally and having normal bowel movements today. Denies drug allergies. He has no other concerns or complaints. Denies any headache, fever, neck pain, URI, sore throat, chest pain, palpitations, syncope, cough, shortness of breath, wheeze, dyspnea, abdominal pain, diarrhea, urinary retention, dysuria, hematuria, back pain, or rash. - ROS Systems Reviewed and Negative: Yes All other systems reviewed and negative - CONSTITUTIONAL Constitutional: DENIES: Fever, Chills - EENT EENT: DENIES: Sore Throat, Ear Pain, Eye problems - NEURO Neurology: DENIES: Headache, Weakness, Vision blurred, Dizzinesss / Vertigo - CARDIOVASCULAR Cardiovascular: DENIES: Chest pain - RESPIRATORY Respiratory: DENIES: Trouble Breathing, Coughing - GASTROINTESTINAL Gastrointestinal: DENIES: Abdominal Pain, Black / Bloody Stools - URINARY Urinary: DENIES: Dysuria, Urgency, Frequency - REPRODUCTIVE Reproductive: DENIES: : - MUSCULOSKELETAL Musculoskeletal: DENIES: Extremity pain Past Medical History - Social History Smoking Status: Never Smoker Chew tobacco use (# tins/day): No Frequency of alcohol use: None Drug Abuse: None Family History: Reviewed & Not Pertinent Patient has suicidal ideation: No Patient has homicidal ideation: No Pulmonary Medical History: Reports: Hx Asthma - not on home O2, Hx Bronchitis GI Medical History: Reports: Hx Irritable Bowel - constipation Musculoskeletal Medical History: Reports Hx Arthritis, Reports Hx Musculoskeletal Trauma Psychiatric Medical History: Reports: Hx Anxiety, Hx Bipolar Disorder, Hx Depre ssion, Hx Personality Disorder, Hx Schizoaffective Disorder, Hx Schizophrenia Traumatic Medical History: Reports: Hx Fractures - Finger fracture Past Surgical History: Reports: Hx Abdominal Surgery, Hx Appendectomy, Hx Cholecystectomy, Hx Orthopedic Surgery - fractured finger - Immunizations Immunizations up to date: Yes Hx Diphtheria, Pertussis, Tetanus Vaccination: Yes - 2012 Hx Pneumococcal Vaccination: 08/23/00 Vertical Provider Document - CONSTITUTIONAL Agree With Documented VS: Yes Notes: PHYSICAL EXAMINATION: GENERAL: Well-appearing, well-nourished and in no acute distress. HEAD: Atraumatic, normocephalic. EYES: Pupils equal round and reactive to light, extraocular movements intact, sclera anicteric, conjunctiva are normal. ENT: Nares patent and without discharge. oropharynx clear without exudates. No tonsilar hypertrophy or erythema. Moist mucous membranes. NECK: Normal range of motion, supple without lymphadenopathy LUNGS: Breath sounds clear to auscultation bilaterally and equal. No wheezes rales or rhonchi. HEART: Regular rate and rhythm without murmurs, rubs, gallops. ABDOMEN: Soft, nontender, nondistended abdomen. No guarding, no rebound. Normal bowel sounds present. No CVA tenderness bilaterally. Dickinson neg. No tenderness at [place]. Musculoskeletal: FROM to passive/active. Strength 5+/5. Extremities: No cyanosis, clubbing, or edema b/l. Peripheral pulses 2+. Capillary refill less than 3 seconds. NEUROLOGICAL: Normal speech, normal gait. PSYCH: Normal mood, normal affect. SKIN: Warm, Dry, normal turgor, no rashes or lesions noted. - INFECTION CONTROL TRAVEL OUTSIDE OF THE [place] IN LAST 30 DAYS: No Course - Re-evaluation Re-evalutation: 09/09/19 19:31 Patient is an afebrile, well-hydrated, 34-year-old male who presents to the ED with 1 episode of n/v, otherwise asymptomatic, suspect benign. Vitals are acceptable without any significant tachycardia, tachypnea, or hypoxia. PE is otherwise unremarkable. His abd is soft and nontender throughout. Pt was smiling, joking, and interactive throughout the visit. No labs or imaging warranted at this time based on H&P. Patient is tolerating p.o. without difficulties and is nontoxic-appearing. Low suspicion/risk for acute append icitis, bowel obstruction, acute cholecystitis, perforated diverticulitis, incarcerated hernia, pancreatitis, perforated ulcer, peritonitis, sepsis, testicular torsion, or other systemic emergent condition at this time. Patient is aware that his condition can change from initial presentation and he needs to monitor symptoms closely and seek medical attention if any acute changes. I will send him home with a zofran dispense pack. Conservative measures otherwise for symptoms. Recheck with PCM in 2-3 days. Consider consult with a window shade installer. Return to the ED with any worsening/concerning symptoms otherwise as reviewed in discharge. Patient is in agreement. - Vital Signs Vital signs: Temp Pulse Resp BP Pulse Ox 98.8 F 92 16 136/78 H 98 09/09/19 19:03 09/09/19 19:03 09/09/19 19:03 09/09/19 19:03 09/09/19 19:03 Discharge - Discharge Clinical Impression: Nausea and vomiting Qualifiers: Vomiting type: unspecified Vomiting Intractability: non-intractable Qualified Code(s): R11.2 - Nausea with vomiting, unspecified Condition: Stable Disposition: HOME, SELF-CARE Instructions: Vomiting ([facility]) Additional Instructions: Maintain adequate fluid and food intake [place] diet ([employer] Bananas, rice, apples, toast, etc Zofran as needed tylenol if needed Monitor for any worsening symptoms Make sure you are staying hydrated enough to urinate and have normal BM's Recheck with your PCM in 2-3 days Consider consult with Gastroenterology for ongoing/worsening symptoms Return to the ED with any worsening symptoms and/or development of fever, headache, chest pain, palpitations, syncope, shortness of breath, trouble breathing, abdominal pain, n/v/d, blood in stool/urine, weakness, or other worsening symptoms that are concerning to you. Forms: Elevated Blood Pressure Referrals: GIANCARLO CHANCE MD [Primary Care Provider] - Follow up as needed
== END 2019-09-09 19:47 | disposition home or self-care (01) ==
LOC: ER 18:42
DX: R11.2 Nausea with vomiting, unspecified (principal)
CPT/HCPCS: 99283

== ENCOUNTER 2019-09-10 01:44 | Emergency (ER) | payer MEDICAID ==
[2019-09-10 01:49] VITALS: BP 139/86
--- NOTE | 2019-09-10 04:18 | ER Document Report ---
ED General - General Chief Complaint: Back Pain Stated Complaint: BACK PAIN Time Seen by Provider: 09/10/19 04:06 Primary Care Provider: GIANCARLO CHANCE MD [Primary Care Provider] - Follow up as needed Mode of Arrival: Ambulatory Information source: Patient Notes: 34-year-old black male arrives with chief complaint of mid back pain upon arrival; by time of my evaluation patient was doing well would still like a x- ray of his back. Patient denies any dysuria trauma or overuse. He is well- known to ED facility and is schizophrenic. TRAVEL OUTSIDE OF THE [place] IN LAST 30 DAYS: No - HPI Onset: Just prior to arrival Onset/Duration: Sudden Quality of pain: No pain Severity: None Pain Level: Denies - Related Data Allergies/Adverse Reactions: No Known Allergies Allergy (Verified 09/05/19 19:56) Home Medications: albuterol inhaler Past Medical History - General Information source: Patient - Social History Smoking Status: Never Smoker Cigarette use (# per day): No Chew tobacco use (# tins/day): No Smoking Education Provided: No Family History: Reviewed & Not Pertinent Patient has suicidal ideation: No Patient has homicidal ideation: No Pulmonary Medical History: Reports: Hx Asthma - not on home O2, Hx Bronchitis GI Medical History: Reports: Hx Irritable Bowel - constipation Musculoskeletal Medical History: Reports Hx Arthritis, Reports Hx Musculoskeletal Trauma Psychiatric Medical History: Reports: Hx Anxiety, Hx Bipolar Disorder, Hx Depression, Hx Personality Disorder, Hx Schizoaffective Disorder, Hx Schizophrenia Traumatic Medical History: Reports: Hx Fractures - Finger fracture Past Surgical History: Reports: Hx Abdominal Surgery, Hx Appendectomy, Hx Cholecystectomy, Hx Orthopedic Surgery - fractured finger - Immunizations Immunizations up to date: Yes Hx Diphtheria, Pertussis, Tetanus Vaccination: Yes - 2012 Hx Pneumococcal Vaccination: 08/23/00 Review of Systems - Review of Systems Constitutional: No symptoms reported EENT: No symptoms reported Cardiovascular: No symptoms reported Respiratory: No symptoms reported Gastrointestinal: No symptoms reported Genitourinary: No symptoms reported Male Genitourinary: No symptoms reported Musculoskeletal: Back pain Skin: No symptoms reported Neurological/Psychological: No symptoms reported Physical Exam - Vital signs Vitals: Temp Pulse Resp BP Pulse Ox 98.2 F 66 18 139/86 H 99 09/10/19 01:47 09/10/19 01:47 09/10/19 01:47 09/10/19 01:47 09/10/19 01:47 Interpretation: Normal - General General appearance: Anxious In distress: None - HEENT Head: Normocephalic Eyes: Normal Conjunctiva: Normal Cornea: Normal Extraocular movements intact: Yes Eyelashes: Normal Pupils: PERRL Nasal: Normal Mouth/Lips: Normal Pharynx: Normal Neck: Normal - Respiratory Respiratory status: No respiratory distress Breath sounds: Normal Chest palpation: Normal - Back Back: Tender - Around T12 area midline on palpation and range of motion but no obvious ecchymosis edema abrasions or lesions of any kind. - Extremities General upper extremity: Normal inspection General lower extremity: Normal inspection Shoulder: Normal Arm: Normal Elbow: Normal Forearm: Normal Wrist: Normal Hand: Normal Hip: Normal Thigh: Normal Knee: Normal Ankle: Normal Foot: Normal - Neurological Neuro grossly intact: Yes Cognition: Normal Orientation: AAOx4 [place] Coma Scale Eye Opening: Spontaneous Jasmin Coma Scale Verbal: Oriented Speech: Normal Cranial nerves: Normal Cerebellar coordination: Normal Course - Vital Signs Vital signs: Temp Pulse Resp BP Pulse Ox 98.2 F 66 18 139/86 H 99 09/10/19 01:47 09/10/19 01:47 09/10/19 01:47 09/10/19 01:47 09/10/19 01:47 - Diagnostic Test Radiology reviewed: Image reviewed - Appreciate no fractures or dislocations or lesions on x-ray of this patient's back thoracic Critical Care Note - Critical Care Note Total time excluding time spent on procedures (mins): 30 Comments: Advised patient of his negative x-rays Discharge - Discharge Clinical Impression: Back pain Condition: Good Disposition: ADMITTED INPATIENT Additional Instructions: Avoid lifting bending or twisting until seen by personal doctor; take meds as directed encourage fluids Prescriptions: Etodolac [Lodine] 400 mg PO DAILY #10 tablet Referrals: GIANCARLO CHANCE MD [Primary Care Provider] - Follow up as needed
--- NOTE | 2019-09-10 06:16 | RADIOLOGY REPORT (SQ) ---
Thoracic spine three view on 09/10/2019 at 4:38 AM CLINICAL INDICATION: Back pain COMPARISON: None FINDINGS: There is a slight rightward curvature of the thoracic spine. Thoracic spine is otherwise well aligned. There are no fractures. No other bony abnormality is noted. IMPRESSION: No acute abnormality.
== END 2019-09-10 05:26 | disposition other institution (70) ==
LOC: ER 01:44
DX: M54.9 Dorsalgia, unspecified (principal); J45.909 Unspecified asthma, uncomplicated; Z79.899 Other long term (current) drug therapy
CPT/HCPCS: 72070; 99284

== ENCOUNTER 2019-09-10 12:49 | Emergency (ER) | payer MEDICAID ==
[2019-09-10 12:54] VITALS: BP 129/76
--- NOTE | 2019-09-10 13:27 | ER Document Report ---
HPI - HPI Patient complains to provider of: Dry mouth Time Seen by Provider: 09/10/19 13:08 Onset: This afternoon Onset/Duration: Better, Gone Pain Level: Denies Context: Patient states that he was eating a cookie this afternoon that had a lot of flour on it. Patient states that his mouth became dry. Patient states that he then became worried that maybe it was poison. Patient states that the mouth dryness is since resolved but he wanted to be tested for any type of poison. Associated Symptoms: Other - Dry mouth that has now resolved Exacerbated by: Denies Relieved by: Denies Similar symptoms previously: No Recently seen / treated by doctor: Yes - ROS ROS below otherwise negative: Yes Systems Reviewed and Negative: Yes All other systems reviewed and negative - CONSTITUTIONAL Constitutional: DENIES: Fever - EENT EENT: DENIES: Sore Throat, Ear Pain, Eye problems - CARDIOVASCULAR Cardiovascular: DENIES: Chest pain - RESPIRATORY Respiratory: DENIES: Trouble Breathing, Coughing - GASTROINTESTINAL Gastrointestinal: DENIES: Abdominal Pain, Nausea, Patient vomiting, Diarrhea, Black / Bloody Stools - URINARY Urinary: DENIES: Dysuria, Urgency, Frequency - MUSCULOSKELETAL Musculoskeletal: DENIES: Extremity pain - DERM Skin Color: Normal Skin Problems: None Past Medical History - General Information source: Patient - Social History Smoking Status: Never Smoker Frequency of alcohol use: None Drug Abuse: None Lives with: Alone Family History: Reviewed & Not Pertinent Patient has suicidal ideation: No Patient has homicidal ideation: No Pulmonary Medical History: Reports: Hx Asthma, Hx Bronchitis GI Medical History: Reports: Hx Irritable Bowel - constipation Musculoskeletal Medical History: Reports Hx Arthritis, Reports Hx Musculoskeletal Trauma Psychiatric Medical History: Reports: Hx Anxiety, Hx Bipolar Disorder, Hx Depression, Hx Personality Disorder, Hx Schizoaffective Disorder, Hx Schizoph jose l Traumatic Medical History: Reports: Hx Fractures - Finger fracture Past Surgical History: Reports: Hx Abdominal Surgery, Hx Appendectomy, Hx Cho lecystectomy, Hx Orthopedic Surgery - Immunizations Immunizations up to date: Yes Hx Diphtheria, Pertussis, Tetanus Vaccination: Yes - 2012 Hx Pneumococcal Vaccination: 08/23/00 Vertical Provider Document - CONSTITUTIONAL Agree With Documented VS: Yes Exam Limitations: No Limitations General Appearance: WD/WN, No Apparent Distress - INFECTION CONTROL TRAVEL OUTSIDE OF THE [place] IN LAST 30 DAYS: No - HEENT HEENT: Atraumatic, Normal ENT Exam, Normocephalic - NECK Neck: Normal Inspection, Supple - RESPIRATORY Respiratory: Breath Sounds Normal, No Respiratory Distress, Chest Non-Tender - CARDIOVASCULAR Cardiovascular: Regular Rate, Regular Rhythm, No Murmur - BACK Back: Normal Inspection - MUSCULOSKELETAL/EXTREMETIES Musculoskeletal/Extremeties: MAEW - NEURO Level of Consciousness: Awake, Alert, Appropriate Motor/Sensory: No Motor Deficit - DERM Integumentary: Warm, Dry, No Rash Course - Re-evaluation Re-evalutation: 09/10/19 13:24 Patient presents after eating a cookie that had flower on them. Patient states that he had a dry mouth after he ate cookies and this got him concerned that he may have been poisoned. Patient states that his symptoms have since resolved but he wanted to get checked to see if there may be any test to check for poison. Patient reports resolution of symptoms, has stable vital signs and appears to be at his normal baseline. Patient is very well known to the emergency department. Patient encouraged to follow-up with his primary care provider for recheck. Patient is wanting to know if there is any special tests checked for allergies. Patient advised that he could see an satellite specialist to perform testing on an outpatient basis. Patient encouraged to follow-up with his primary doctor. Patient states that he plans to call the community recreation therapy aide who checks up on him periodically. - Vital Signs Vital signs: Temp Pulse Resp BP Pulse Ox 98.4 F 98 18 129/76 H 95 09/10/19 12:53 09/10/19 12:53 09/10/19 12:53 09/10/19 12:53 09/10/19 12:53 Discharge - Discharge Clinical Impression: Mouth dryness Condition: Stable Disposition: HOME, SELF-CARE Additional Instructions: Return immediately for any new or worsening symptoms Followup with your primary care provider, call tomorrow to make a followup appointment Follow-up with an satellite specialist as needed, your doctor can make this ref erral for you. Referrals: GIANCARLO CHANCE MD [Primary Care Provider] - Follow up as needed LITA RODRIGUEZ MD [ACTIVE STAFF] - Follow up as needed
== END 2019-09-10 14:21 | disposition home or self-care (01) ==
LOC: ER 12:49
DX: R68.2 Dry mouth, unspecified (principal); J45.909 Unspecified asthma, uncomplicated
CPT/HCPCS: 99284

== ENCOUNTER 2019-09-11 00:23 | Emergency (ER) | payer MEDICAID ==
--- NOTE | 2019-09-11 03:17 | ER Document Report ---
HPI - HPI Time Seen by Provider: 09/11/19 02:54 Pain Level: 1 Context: Patient is a 34-year-old male that comes to the emergency department for chief complaint of right ankle pain. He states he has been walking on it a lot and he thinks he twisted it, he states it was hurting earlier but it stopped hurting now. He denies swelling. He denies injury from a fall or any impact injury. Patient denies any other complaints or any other concerns. Patient is a history of asthma, schizophrenia, and is well-known to this department with very frequent visits. - REPRODUCTIVE Reproductive: DENIES: : - DERM Skin Color: Normal Past Medical History - General Information source: Patient - Social History Smoking Status: Never Smoker Frequency of alcohol use: None Drug Abuse: None Lives with: Alone Family History: Reviewed & Not Pertinent Patient has suicidal ideation: No Patient has homicidal ideation: No Pulmonary Medical History: Reports: Hx Asthma, Hx Bronchitis GI Medical History: Reports: Hx Irritable Bowel - constipation Musculoskeletal Medical History: Reports Hx Arthritis, Reports Hx Musculoskeletal Trauma Psychiatric Medical History: Reports: Hx Anxiety, Hx Bipolar Disorder, Hx Depression, Hx Personality Disorder, Hx Schizoaffective Disorder, Hx Schizophrenia Traumatic Medical History: Reports: Hx Fractures - Finger fracture Past Surgical History: Reports: Hx Abdominal Surgery, Hx Appendectomy, Hx Cholecystectomy, Hx Orthopedic Surgery - Immunizations Immunizations up to date: Yes Hx Diphtheria, Pertussis, Tetanus Vaccination: Yes - 2012 Hx Pneumococcal Vaccination: 08/23/00 Vertical Provider Document - CONSTITUTIONAL General Appearance: WD/WN, No Apparent Distress - INFECTION CONTROL TRAVEL OUTSIDE OF THE [place] IN LAST 30 DAYS: No - HEENT HEENT: Atraumatic, Normal ENT Exam, Normocephalic - NECK Neck: Normal Inspection - RESPIRATORY Respiratory: Breath Sounds Normal, No Respiratory Distress, Chest Non-Tender - CARDIOVASCULAR Cardiovascular: Regular Rate, Regular Rhythm - GI/ABDOMEN Gastrointestinal: Abdomen Soft, Abdomen Non-Tender. negative: Abdomen Tender - BACK Back: Normal Inspection - MUSCULOSKELETAL/EXTREMETIES Musculoskeletal/Extremeties: MAEW, FROM, Non-Tender - No swelling, tenderness, or concerning findings noted on evaluation of the right foot, ankle, leg, knee, hip. Normal distal neurovascular exam. - NEURO Level of Consciousness: Awake, Alert, Appropriate - DERM Integumentary: Warm, Dry, No Rash Course - Re-evaluation Re-evalutation: Patient alert, well-appearing, pleasant. His ankle is nontender but he does c omplain of some discomfort when rotating his ankle around. No swelling, no signs of injury, patient declines an x-ray. No other complaints or concerning findings. Provided with Ludwig wrap on request, discussed follow-up and return precautions. Patient declines any extra help at this time and states he is ready to go. - Vital Signs Vital signs: Temp Pulse Resp BP Pulse Ox 97.9 F 60 16 120/74 98 09/11/19 00:39 09/11/19 00:39 09/11/19 00:39 09/11/19 00:39 09/11/19 00:39 Discharge - Discharge Clinical Impression: Right ankle pain Qualifiers: Chronicity: acute Qualified Code(s): M25.571 - Pain in right ankle and joints of right foot Condition: Stable Disposition: HOME, SELF-CARE Additional Instructions: Your evaluation is most suggestive of a mild sprain of the right ankle joint, I recommend Ludwig wrap, elevation, ice, [id number] anti-inflammatory such as ibuprofen. Symptoms should resolve with time. Follow-up with primary care. Return for any concerning symptoms including severe swelling or pain. Referrals: GIANCARLO CHANCE MD [Primary Care Provider] - Follow up as needed
[2019-09-11 03:42] VITALS: BP 101/55
== END 2019-09-11 03:47 | disposition home or self-care (01) ==
LOC: ER 00:23
DX: M25.571 Pain in right ankle and joints of right foot (principal); Z90.49 Acquired absence of other specified parts of digestive tract
CPT/HCPCS: 99283

== ENCOUNTER 2019-09-12 22:40 | Emergency (ER) | payer MEDICAID ==
--- NOTE | 2019-09-12 23:27 | ER Document Report ---
ED General - General Chief Complaint: Eye Problem Stated Complaint: EYE PAIN Time Seen by Provider: 09/12/19 23:16 Primary Care Provider: GIANCARLO CHANCE MD [Primary Care Provider] - Follow up as needed TRAVEL OUTSIDE OF THE [place] IN LAST 30 DAYS: No - HPI Notes: Mr. Huddleston is a 34-year-old homeless schizophrenic male who is a regular visitor to our emergency department several times a week. His presenting complaint tonight is irritation of both eyes. He denies fever, chills, trauma, chemical exposure or current URI. - Related Data Allergies/Adverse Reactions: No Known Allergies Allergy (Verified 09/10/19 13:03) Home Medications: Albuterol Past Medical History - General Information source: Patient - Social History Smoking Status: Never Smoker Family History: Reviewed & Not Pertinent Patient has suicidal ideation: No Patient has homicidal ideation: No Pulmonary Medical History: Reports: Hx Asthma, Hx Bronchitis GI Medical History: Reports: Hx Irritable Bowel - constipation Musculoskeletal Medical History: Reports Hx Arthritis, Reports Hx Musculoskeletal Trauma Psychiatric Medical History: Reports: Hx Anxiety, Hx Bipolar Disorder, Hx Depression, Hx Personality Disorder, Hx Schizoaffective Disorder, Hx Schizophrenia Traumatic Medical History: Reports: Hx Fractures - Finger fracture Past Surgical History: Reports: Hx Abdominal Surgery, Hx Appendectomy, Hx Cholecystectomy, Hx Orthopedic Surgery - Immunizations Immunizations up to date: Yes Hx Diphtheria, Pertussis, Tetanus Vaccination: Yes - 2012 Hx Pneumococcal Vaccination: 08/23/00 Review of Systems - Review of Systems Notes: Constitutional: Negative for fever. HENT: Negative for sore throat. Eyes: As per HPI. Cardiovascular: Negative for chest pain. Respiratory: Negative for shortness of breath. Gastrointestinal: Negative for abdominal pain, vomiting or diarrhea. Genitourinary: Negative for dysuria. Musculoskeletal: Negative for back pain. Skin: Negative for rash. Neurological: Negative for headaches, weakness or numbness. 10 point ROS negative except as marked above and in HPI. Physical Exam - Vital signs Vitals: Temp Pulse Resp BP Pulse Ox 98.8 F 78 20 130/86 H 99 09/12/19 23:02 09/12/19 23:02 09/12/19 23:02 09/12/19 23:02 09/12/19 23:02 - Notes Notes: GENERAL: Well-developed well-nourished male with extremely poor personal hygiene and overall disheveled appearance. SKIN: Good turgor no rashes. HEAD: Normocephalic atraumatic. EYES: PERRLA. EOMI. Conjunctivae bilaterally injected with minimal yellow drainage present. EARS: CANALS AND TMS CLEAR. NOSE: CLEAR. MOUTH: Moist mucosa. Good dentition. No stridor or edema. No drooling. NECK: Supple. No masses or thyromegaly. No adenopathy. Carotids 2+ without bruits. No JVD. BACK: Symmetrical without tenderness. CHEST: Respirations unlabored. Breath sounds clear and symmetrical. HEART: Regular rhythm. No murmur gallop or rub. ABDOMEN: Soft nontender without masses, organomegaly or rebound. Bowel sounds normally active. No bruits. GENITALIA: Deferred. EXTREMITIES: No edema. No calf tenderness. Cap refill less than 1.5 seconds. Dorsalis pedis and posterior tibial pulses 3+ and symmetrical. NEUROLOGICAL: GCS 15. Alert and oriented x3. Normal gait. Fluent speech. Cranial nerves II through XII intact. Sensorimotor and cerebellar normal. Normal tone. PSYCHIATRIC: Slightly bizarre affect. Course - Vital Signs Vital signs: Temp Pulse Resp BP Pulse Ox 98.8 F 78 20 130/86 H 99 09/12/19 23:02 09/12/19 23:02 09/12/19 23:02 09/12/19 23:02 09/12/19 23:02 Procedures - Eye Procedure Bilateral Eye Irrigated w/ Saline (ccs): 25 Alcaine Drops Administered: Yes Fluorescein applied: Bilateral Antibiotic Oinment/Drps Admin: Both eyes Slit lamp used: Yes Notes: 09/12/19 23:50 No FB, ulcerations, or dendrites. Moderate bilat. conj. injection. Discharge - Discharge Clinical Impression: Bilateral conjunctivitis Disposition: HOME, SELF-CARE Instructions: Conjunctivitis ([facility]), Eyedrop Use ([facility]) Referrals: GIANCARLO CHANCE MD [Primary Care Provider] - Follow up as needed
[2019-09-12] MEDS ORDERED: POLYMYXIN B SULFATE/TMP OPH SOLN (10 ML/ER DISP) OU ONE (23:46)
[2019-09-13 00:34] VITALS: BP 132/84
== END 2019-09-13 00:32 | disposition home or self-care (01) ==
LOC: ER 22:40
DX: H10.89 Other conjunctivitis (principal); H57.13 Ocular pain, bilateral; J45.909 Unspecified asthma, uncomplicated
CPT/HCPCS: 99282; J3490

== ENCOUNTER 2019-09-13 02:34 | Emergency (ER) | payer MEDICAID ==
[2019-09-13 03:05] VITALS: BP 133/81
--- NOTE | 2019-09-13 04:33 | ER Document Report ---
ED Eye Complaint - General Chief Complaint: Eye Problem Stated Complaint: POSSIBLE DIZZY SPELLS Time Seen by Provider: 09/13/19 04:32 Primary Care Provider: GIANCARLO CHANCE MD [Primary Care Provider] - Follow up as needed Mode of Arrival: Ambulatory Information source: Patient TRAVEL OUTSIDE OF THE [place] IN LAST 30 DAYS: No - HPI Onset: Just prior to arrival Eye location: Bilateral Injury: No Occurred at: Home Quality of pain: No pain Severity: None - Patient has multiple chief complaints. Patient states that he found out there is chigger bugs in his trailer and has infested his so far. Therefore he had found chiggers over his body he is sprayed in had them removed. He also reports that he thought chiggers were trying to get into his eyes so therefore he comes to the emergency department for verification that he does not have chiggers in his eyes and that he is doing better. Patient states he is realized that the takers did not get in his eyes at this point in time and he has no visual disturbance. Denies any eye pain. Patient as mentioned has multiple complaints he has a scoliosis of his thoracic spine and he has a prominent spine process in the lower mid thoracic spine area and he questions whether or not there is some problem with that particular spinous process. Again there is been no trauma to his back. I offered him Tylenol as needed for pain and he said the pain is not that necessary to be treated with any medication Pain Level: 0 Safety glasses worn: No Contact lenses worn: No Associated symptoms: None Other injuries: Complains of thoracic pain midline over lower spinal processes.. - Related Data Allergies/Adverse Reactions: No Known Allergies Allergy (Verified 09/10/19 13:03) Home Medications: albuterol Past Medical History - Social History Smoking Status: Never Smoker Frequency of alcohol use: None Drug Abuse: None Lives with: Alone Family History: Reviewed & Not Pertinent Patient has suicidal ideation: No Patient has homicidal ideation: No Pulmonary Medical History: Reports: Hx Asthma, Hx Bronchitis Renal/ Medical History: Reports: None Malignancy Medical History: Reports None GI Medical History: Reports: Hx Irritable Bowel - constipation Musculoskeletal Medical History: Reports Hx Arthritis, Reports Hx M usculoskeletal Trauma Psychiatric Medical History: Reports: Hx Anxiety, Hx Bipolar Disorder, Hx Depression, Hx Personality Disorder, Hx Schizoaffective Disorder, Hx Schizophre romario Traumatic Medical History: Reports: Hx Fractures - Finger fracture Past Surgical History: Reports: Hx Abdominal Surgery, Hx Appendectomy, Hx Marycruz cystectomy, Hx Orthopedic Surgery - Immunizations Immunizations up to date: Yes Hx Diphtheria, Pertussis, Tetanus Vaccination: Yes - 2012 Hx Pneumococcal Vaccination: 08/23/00 Review of Systems - Review of Systems Constitutional: No symptoms reported EENT: Other - Patient reports he has had chiggers on his body secondary to infestation of his trailer home which he lives in. He had the idea that to consider getting into his eyes which is prompted his ED visit today. Eyes any ocular pain vision disturbance any increased tearing or discharge from eyes. Patient's vision was tested and he was accurate and counting fingers in both eyes equally. Cardiovascular: No symptoms reported Respiratory: No symptoms reported, Other - Story of asthma Gastrointestinal: No symptoms reported Genitourinary: No symptoms reported Male Genitourinary: No symptoms reported Musculoskeletal: Other - Thoracic lower spinous process pain. Skin: Other - Noted chiggers on his body no rash noted at this this time Neurological/Psychological: Other - Schizophrenic bipolar Physical Exam - Vital signs Vitals: Temp Pulse Resp BP Pulse Ox 98.3 F 70 16 133/81 H 96 09/13/19 03:04 09/13/19 03:04 09/13/19 03:04 09/13/19 03:04 09/13/19 03:04 Interpretation: Normal - General General appearance: Appears well, Alert - HEENT Head: Normocephalic, Atraumatic Eyes: Normal Conjunctiva: Normal Extraocular movements intact: Yes Eyelashes: Normal Pupils: PERRL Corrective lenses worn: No Visual garcia normal: Yes Ears: Normal External canal: Normal Tympanic membrane: Normal Sinus: Normal Nasal: Normal Mouth/Lips: Normal Pharynx: Normal Neck: Normal - Respiratory Respiratory status: No respiratory distress Chest status: Nontender Breath sounds: Normal Chest palpation: Normal - Cardiovascular Rhythm: Regular Heart sounds: Normal auscultation Murmur: No - Abdominal Inspection: Normal Distension: No distension Bowel sounds: Normal Tenderness: Nontender Organomegaly: No organomegaly - Back Back: Normal, Nontender, Scoliosis, Other - Lower spinous process of the lower thoracic spine prominent due to scoliosis. Mild tenderness on palpation no crepitus - Extremities General upper extremity: Normal inspection, Nontender, Normal color, Normal ROM, Normal temperature General lower extremity: Normal inspection, Nontender, Normal color, Normal ROM, Normal temperature, Normal weight bearing. No: Esdras's sign - Neurological Neuro grossly intact: Yes Cognition: Normal Orientation: AAOx4 [place] Coma Scale Eye Opening: Spontaneous [place] Coma Scale Verbal: Oriented Jasmin Coma Scale Motor: Obeys Commands Jasmin Coma Scale Total: 15 Speech: Normal Motor strength normal: LUE, RUE, LLE, RLE Sensory: Normal - Psychological Associated symptoms: Normal affect, Normal mood - Skin Skin Temperature: Warm Skin Moisture: Dry Skin Color: Normal Course - Vital Signs Vital signs: Temp Pulse Resp BP Pulse Ox 98.3 F 70 16 133/81 H 96 09/13/19 03:04 09/13/19 03:04 09/13/19 03:04 09/13/19 03:04 09/13/19 03:04 - Diagnostic Test Radiology reviewed: Pending, Image reviewed Radiology results interpreted by me: 09/13/19 06:20 Mild scoliosis of thoracic spine no fractures or subluxation noted. Minimal joint space narrowing noted due to the scoliosis. Discharge - Discharge Clinical Impression: Scoliosis concern, Pain in thoracic spine Condition: Stable Disposition: HOME, SELF-CARE Additional Instructions: Upper Back Strain You have a strain of the upper back. "Strain" means stretching and partial tearing of muscle and tendon fibers. This can happen suddenly, such as when lifting, or can be due to chronic muscle tension. X-rays don't show back strain. X-rays are only taken if there's reason to suspect a problem in the bones. At first, you should cold-pack the painful area and rest. We often prescribe antiinflammatory medicine. If you are having muscle spasms, a muscle relaxer can help. As you begin to improve, it's important to strengthen and stretch the muscles. Your doctor will advise you on the proper care for your back at each stage in your recovery. You may be better in a few days -- or healing may take several weeks. If new symptoms develop ( such as radiation of pain, numbness, weakness, or tingling) occur, you should be re-examined. Further testing may be necessary. You also have scoliosis of your Thoracic spine. This is a chronic condition of development. No acute fractures or other problems noted on T-spine x-rays today. Recommend taking Tylenol or ibuprofen if needed for any pain. Referrals: GIANCARLO CHANCE MD [Primary Care Provider] - Follow up as needed
--- NOTE | 2019-09-13 06:41 | RADIOLOGY REPORT (SQ) ---
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 COMPARISON: Thoracic and radiographs from 09/10/2019 HISTORY: 34-year old patient with back pain. FINDINGS: The vertebral bodies appear well-aligned. The vertebral body heights appear to be maintained. No significant intervertebral disc space narrowing is seen. There is no evidence of acute fracture or subluxation. IMPRESSION: There are no findings to suggest an acute fracture within the thoracic spine.
== END 2019-09-13 06:24 | disposition home or self-care (01) ==
LOC: ER 02:34
DX: M41.9 Scoliosis, unspecified (principal); M54.6 Pain in thoracic spine; Z20.7 Contact with and (suspected) exposure to pediculosis, acariasis and other infestations; F20.9 Schizophrenia, unspecified; F31.9 Bipolar disorder, unspecified; J45.909 Unspecified asthma, uncomplicated; Z79.899 Other long term (current) drug therapy
CPT/HCPCS: 72070; 99283

== ENCOUNTER 2019-09-13 20:03 | Emergency (ER) | payer MEDICAID ==
[2019-09-13 20:17] VITALS: BP 136/74
--- NOTE | 2019-09-13 20:36 | ER Document Report ---
HPI - HPI Patient complains to provider of: Exiting hit himself in the neck Time Seen by Provider: 09/13/19 20:30 Onset: This evening Onset/Duration: Gone Quality of pain: Achy - No pain at this time Severity: None Pain Level: Denies Associated Symptoms: Other - Hitting self in the "windpipe "was achy became concerned and came to the ED feeling better now Exacerbated by: Denies Relieved by: Denies Similar symptoms previously: Yes Recently seen / treated by doctor: No - ROS ROS below otherwise negative: Yes - CONSTITUTIONAL Constitutional: DENIES: Fever, Chills - EENT EENT: DENIES: Sore Throat, Ear Pain, Nasal Drainage-Clear, Nasal Drainage- Purulent, Congestion, Eye problems - NEURO Neurology: DENIES: Headache, Weakness, Vision blurred, Dizzinesss / Vertigo - CARDIOVASCULAR Cardiovascular: DENIES: Chest pain - RESPIRATORY Respiratory: DENIES: Trouble Breathing, Coughing - GASTROINTESTINAL Gastrointestinal: DENIES: Abdominal Pain, Nausea, Patient vomiting, Diarrhea, Constipation, Black / Bloody Stools - REPRODUCTIVE Reproductive: DENIES: :, Postmenopausal, Abnormal bleeding / discharge - MUSCULOSKELETAL Musculoskeletal: DENIES: Extremity pain, Back Pain, Neck Pain, Swelling - DERM Skin Color: Normal Skin Problems: None Past Medical History - General Information source: Patient - Social History Smoking Status: Former Smoker Frequency of alcohol use: None Drug Abuse: None Lives with: Homeless Family History: Reviewed & Not Pertinent - Past Medical History Cardiac Medical History: Reports: None Pulmonary Medical History: Reports: Hx Asthma, Hx Bronchitis EENT Medical History: Reports: None Neurological Medical History: Reports: None Endocrine Medical History: Reports: None Renal/ Medical History: Reports: None Malignancy Medical History: Reports None GI Medical History: Reports: Hx Irritable Bowel - constipation Musculoskeletal Medical History: Reports Hx Arthritis, Reports Hx Musculoskeletal Trauma Skin Medical History: Reports None Psychiatric Medical History: Reports: Hx Anxiety, Hx Bipolar Disorder, Hx Depression, Hx Personality Disorder, Hx Schizoaffective Disorder, Hx Schizophrenia Traumatic Medical History: Reports: Hx Fractures - Finger fracture Infectious Medical History: Reports: None Past Surgical History: Reports: Hx Abdominal Surgery, Hx Appendectomy, Hx Cholecystectomy, Hx Orthopedic Surgery - Immunizations Immunizations up to date: Yes Hx Diphtheria, Pertussis, Tetanus Vaccination: Yes - 2012 Hx Pneumococcal Vaccination: 01/01/01 Vertical Provider Document - CONSTITUTIONAL Agree With Documented VS: Yes Exam Limitations: No Limitations - INFECTION CONTROL TRAVEL OUTSIDE OF THE [place] IN LAST 30 DAYS: No Course - Re-evaluation Re-evalutation: 09/13/19 20:38 Patient denies any pain or discomfort at this time. He states he did accidentally hit himself with his finger in his throat. He states at the time he was having a little hard time breathing but he is not having any symptoms at this time. He denies any pain at this time. He states if he just wanted to ask some questions and make sure he was okay. He states he is feeling okay now he just had questions. - Vital Signs Vital signs: Temp Pulse Resp BP Pulse Ox 98.4 F 80 16 136/74 H 98 09/13/19 20:15 09/13/19 20:15 09/13/19 20:15 09/13/19 20:15 09/13/19 20:15 Discharge - Discharge Clinical Impression: Contusion of neck Qualifiers: Encounter type: initial encounter Qualified Code(s): S10.93XA - Contusion of unspecified part of neck, initial encounter Condition: Stable Disposition: HOME, SELF-CARE Additional Instructions: CONTUSION: Your injury has resulted in a contusion -- a crushing of the deep tissues. No injury to important structures was detected during the physician's exam. Contusions vary in the amount of pain they cause, and in the length of time required for healing. Typically, the area will become bruised, and will remain painful to touch for two or three weeks. However, most patients are back to working and playing within a few days. After the initial period of rest and cold-packs, your symptoms (together with the doctor's recommendations) will determine how rapidly you can get back to full activity. Usually this means "do what feels okay, but don't do things that hurt." If re-examination was recommended, it's important to follow up as inst ructed. Call the doctor or return any time if pain increases, if swelling becomes severe, if you develop numbness or weakness in an injured extremity, or if any other alarming symptoms occur. USE OF TYLENOL (ACETAMINOPHEN): Acetaminophen may be taken for pain relief or fever control. It's much safer than aspirin, offering a wider range of "safe" dosages. It is safe during . Some brand names are Tylenol, Panadol, Datril, Anacin 3, Tempra, and Liquiprin. Acetaminophen can be repeated every four hours. The following are maximum recommended dosages: WEIGHT Dose Drops Elixir Chewable(80mg) (LBS.) drprs=droppers tsp=teaspoon 6 40 mg 0.4 ml (1/2) 6-11 80 mg 0.8 ml (full) tsp 1 tab 12-16 120 mg 1 1/2 drprs 3/4 tsp 1 1/2 tabs 17-23 160 mg 2 drprs 1 tsp 2 tabs 24-30 240 mg 3 drprs 1 1/2 tsp 3 tabs 30-35 320 mg 2 tsp 4 tabs 36-41 360 mg 2 1/4 tsp 4 1/2 tabs 42-47 400 mg 2 1/2 tsp 5 tabs 48-53 480 mg 3 tsp 6 tabs 54-59 520 mg 3 1/4 tsp 6 1/2 tabs 60-64 560 mg 3 1/2 tsp 7 tabs 65-70 600 mg 3 3/4 tsp 7 1/2 tabs 71-76 640 mg 4 tsp 8 tabs 77-82 720 mg 4 1/2 tsp 9 tabs 83-88 800 mg 5 tsp 10 tabs >89 pounds or adults 650 mg to 900 mg Acetaminophen can be repeated every four hours. Maximum dose not to exceed 4000 mg a day. These maximum recommended dosages are slightly higher than the dosages written on the product container, but these dosages are very safe and below the toxic dosage for acetaminophen. ICE PACKS: Apply ice packs frequently against the painful area. Many different schedules are recommended, such as "20 minutes on, 20 minutes off" or "one hour ice, two hours rest." If you need to work, you may need to go longer between ice treatments. You should plan to have the area ice packed AT LEAST one fourth of the time. The ice should be applied over the wrap, tape, or splint, or over a layer of cloth -- not directly against the skin. Some ice bags have a built-in cloth and can be put directly on the skin. WARM PACKS: After approximately two days, apply gentle heat (such as a heating pad or hot water bottle) for about 20 to 30 minutes about every two hours -- at least four times daily. Warmth and elevation will help you make a more rapid recovery, and will ease the pain considerably. Do not use HOT heat, and never apply heat for longer than 30 minutes. The continuous heat can invisibly damage skin and muscles -- even when no burn is seen on the surface. Damaged muscles can make you MORE sore. Acetaminophen Acetaminophen may be taken for pain relief or fever control. It's much safer than aspirin, offering a wider range of "safe" dosages. It is safe during . Some brand names are Tylenol, Panadol, Datril, Anacin 3, Tempra, and Liquiprin. Acetaminophen can be repeated every four hours. The following are maximum recommended dosages: WEIGHT Dose Drops Elixir Chewable(80mg) (LBS.) drprs=droppers tsp=teaspoon 6 40 mg .4 ml (1/2) 6-11 80 mg .8 ml (full) 1/2 tsp 1 tab 12-16 120 mg 1 1/2 drprs 3/4 tsp 1 1/2 tabs 17-23 160 mg 2 drprs 1 tsp 2 tabs 24-30 240 mg 3 drprs 1 1/2 tsp 3 tabs 30-35 320 mg 2 tsp 4 tabs 36-41 360 mg 2 1/4 tsp 4 1/2 tabs 42-47 400 mg 2 1/2 tsp 5 tabs 48-53 480 mg 3 tsp 6 tabs 54-59 520 mg 3 1/4 tsp 6 1/2 tabs 60-64 560 mg 3 1/2 tsp 7 tabs 65-70 600 mg 3 3/4 tsp 7 1/2 tabs 71-76 640 mg 4 tsp 8 tabs 77-82 720 mg 4 1/2 tsp 9 tabs 83-88 800 mg 5 tsp 10 tabs >89 pounds or adults 650 mg to 900 mg Acetaminophen can be repeated every four hours. Maximum daily dose not to exceed 4000 mg. These maximum recommended dosages are slightly higher than the dosages written on the product container, but these dosages are very safe and well below the toxic dosage for acetaminophen. FOLLOW-UP CARE: If you have been referred to a physician for follow-up care, call the physicians office for an appointment as you were instructed or within the next two days. If you experience worsening or a significant change in your symptoms, notify the physician immediately or return to the Emergency Department at any time for re-evaluation. Referrals: GIANCARLO CHANCE MD [Primary Care Provider] - Follow up in 3-5 days
== END 2019-09-13 20:45 | disposition home or self-care (01) ==
LOC: ER 20:03
DX: S10.93XA Contusion of unspecified part of neck, initial encounter (principal); X58.XXXA Exposure to other specified factors, initial encounter; Y93.89 Activity, other specified; J45.909 Unspecified asthma, uncomplicated; Z87.891 Personal history of nicotine dependence
CPT/HCPCS: 99283

== ENCOUNTER 2019-09-14 00:15 | Emergency (ER) | payer MEDICAID ==
--- NOTE | 2019-09-14 05:42 | ER Document Report ---
ED General - General Chief Complaint: Back Pain Stated Complaint: POSSIBLE ARM PAIN Time Seen by Provider: 09/14/19 03:15 Primary Care Provider: GIANCARLO CHANCE MD [Primary Care Provider] - Follow up as needed TRAVEL OUTSIDE OF THE [place] IN LAST 30 DAYS: No - HPI Notes: Shravan Huddleston is a 34-year-old homeless male schizophrenic well-known to this emergency department and to me personally with numerous visits for wide array of complaints who comes in tonight with concern that the "bones of my elbow are too pointed" bilaterally. He denies pain. He denies trauma. He denies fever. - Related Data Allergies/Adverse Reactions: No Known Allergies Allergy (Verified 09/13/19 20:29) Past Medical History - General Information source: Patient - Social History Smoking Status: Former Smoker Family History: Reviewed & Not Pertinent Patient has suicidal ideation: No Patient has homicidal ideation: No Pulmonary Medical History: Reports: Hx Asthma, Hx Bronchitis GI Medical History: Reports: Hx Irritable Bowel - constipation Musculoskeletal Medical History: Reports Hx Arthritis, Reports Hx Musculoskeletal Trauma Psychiatric Medical History: Reports: Hx Anxiety, Hx Bipolar Disorder, Hx Depression, Hx Personality Disorder, Hx Schizoaffective Disorder, Hx Schizophrenia Traumatic Medical History: Reports: Hx Fractures - Finger fracture Past Surgical History: Reports: Hx Abdominal Surgery, Hx Appendectomy, Hx Cholecystectomy, Hx Orthopedic Surgery - Immunizations Immunizations up to date: Yes Hx Diphtheria, Pertussis, Tetanus Vaccination: Yes - 2012 Hx Pneumococcal Vaccination: 08/23/00 Review of Systems - Review of Systems Notes: Constitutional: Negative for fever. HENT: Negative for sore throat. Eyes: Negative for visual changes. Cardiovascular: Negative for chest pain. Respiratory: Negative for shortness of breath. Gastrointestinal: Negative for abdominal pain, vomiting or diarrhea. Genitourinary: Negative for dysuria. Musculoskeletal: As per HPI. Skin: Negative for rash. Neurological: Negative for headaches, weakness or numbness. 10 point ROS negative except as marked above and in HPI. Physical Exam - Vital signs Vitals: Temp Pulse Resp BP Pulse Ox 97.7 F 73 14 140/96 H 97 09/14/19 00:19 09/14/19 00:19 09/14/19 00:19 09/14/19 00:19 09/14/19 00:19 - Notes Notes: GENERAL: Somewhat obese male approximately stated age appearing in no acute distress. SKIN: Good turgor no rashes. HEAD: Normocephalic atraumatic. EYES: PERRLA. EOMI. Conjunctivae and sclerae clear. NECK: Supple. No masses or thyromegaly. No adenopathy. Carotids 2+ without bruits. No JVD. BACK: Symmetrical without tenderness. CHEST: Respirations unlabored. Breath sounds clear and symmetrical. HEART: Regular rhythm. No murmur gallop or rub. ABDOMEN: Soft nontender without masses, organomegaly or rebound. Bowel sounds normally active. No bruits. EXTREMITIES: Both elbows are of normal appearance with no crepitus and no restriction of motion. There is no redness swelling or tenderness.. NEUROLOGICAL: Alert and oriented x3. Nonfocal. PSYCHIATRIC: Appropriate affect. Course - Re-evaluation Re-evalutation: 09/14/19 05:40 Patient is reassured that his elbow anatomy is normal and he was offered Tylenol which she declined. He will be discharged. - Vital Signs Vital signs: Temp Pulse Resp BP Pulse Ox 97.7 F 73 14 140/96 H 97 09/14/19 00:19 09/14/19 00:19 09/14/19 00:19 09/14/19 00:19 09/14/19 00:19 Discharge - Discharge Clinical Impression: Elbow pain Schizophrenia Qualifiers: Schizophrenia type: unspecified Qualified Code(s): F20.9 - Schizophrenia, unspecified Condition: Stable Disposition: HOME, SELF-CARE Referrals: GIANCARLO CHANCE MD [Primary Care Provider] - Follow up as needed
[2019-09-14 05:48] VITALS: BP 137/83
== END 2019-09-14 05:49 | disposition home or self-care (01) ==
LOC: ER 00:15
DX: M25.529 Pain in unspecified elbow (principal); F20.9 Schizophrenia, unspecified; J45.909 Unspecified asthma, uncomplicated; E66.9 Obesity, unspecified; Z59.0 Homelessness; Z87.891 Personal history of nicotine dependence
CPT/HCPCS: 99283

== ENCOUNTER 2019-09-14 07:08 | Emergency (ER) | payer MEDICAID ==
[2019-09-14 07:46] VITALS: BP 106/75
== END 2019-09-14 08:00 | disposition left against medical advice (07) ==
LOC: ER 07:08
DX: Z53.21 Procedure and treatment not carried out due to patient leaving prior to being seen by health care provider (principal)

== ENCOUNTER 2019-09-16 19:20 | Emergency (ER) | payer MEDICAID ==
--- NOTE | 2019-09-16 21:38 | ER Document Report ---
ED Medical Screen (RME) - General Chief Complaint: Neck and Upper Back Pain Stated Complaint: NECK PAIN Time Seen by Provider: 09/16/19 21:34 Primary Care Provider: GIANCARLO CHANCE MD [Primary Care Provider] - Follow up as needed Mode of Arrival: Ambulatory Information source: Patient Notes: This 34-year-old male that frequently visits the emergency department presents today with complaints of some pressure behind his left ear and some chest pain that came and went. Denies other symptoms such as fever vomiting diarrhea. Patient does have a history of asthma. Respiratory rate even unlabored speaking in a clear voice. I have greeted and performed a rapid initial assessment of this patient. A comprehensive ED assessment and evaluation of the patient, analysis of test results and completion of the medical decision making process will be conducted by additional ED providers. TRAVEL OUTSIDE OF THE [place] IN LAST 30 DAYS: No - Related Data Allergies/Adverse Reactions: No Known Allergies Allergy (Verified 09/14/19 07:43) Past Medical History - Social History Chew tobacco use (# tins/day): No Frequency of alcohol use: None Drug Abuse: None Family history: Reviewed & Not Pertinent Pulmonary Medical History: Reports: Hx Asthma, Hx Bronchitis GI Medical History: Reports: Hx Irritable Bowel - constipation Musculoskeltal Medical History: Reports Hx Arthritis, Reports Hx Musculoskeletal Trauma Psychiatric Medical History: Reports: Hx Anxiety, Hx Bipolar Disorder, Hx Depression, Hx Personality Disorder, Hx Schizoaffective Disorder, Hx Schizophrenia Traumatic Medical History: Reports: Hx Fractures - Finger fracture Past Surgical History: Reports: Hx Abdominal Surgery, Hx Appendectomy, Hx Cholecystectomy, Hx Orthopedic Surgery - Immunizations Immunizations up to date: Yes Hx Diphtheria, Pertussis, Tetanus Vaccination: Yes - 2012 Physical Exam - Vital signs Vitals: Temp Pulse Resp BP Pulse Ox 98.2 F 77 20 129/75 H 97 09/16/19 19:53 09/16/19 19:53 09/16/19 19:53 09/16/19 19:53 09/16/19 19:53 Course - Vital Signs Vital signs: Temp Pulse Resp BP Pulse Ox 98.2 F 77 20 129/75 H 97 09/16/19 19:53 09/16/19 19:53 09/16/19 19:53 09/16/19 19:53 09/16/19 19:53 Doctor's Discharge - Discharge Referrals: OJEBUOBOH,IBIKUNLE, MD [Primary Care Provider] - Follow up as needed
[2019-09-17] MEDS ORDERED: CIPROFLOXACIN HCL/DEXAMETH OTIC DROP 7.5 ML AS ONE (01:48)
--- NOTE | 2019-09-17 01:49 | ER Document Report ---
HPI - HPI Time Seen by Provider: 09/16/19 21:34 Pain Level: 1 Context: Patient is a 34-year-old male, well-known to the emergency department who presents with left ear pain. Patient states that he has been around chiggers and has been scratching at his ear. Patient also states that he had nonspecific chest pain that came and went and is now gone at this time. - ROS Systems Reviewed and Negative: Yes All other systems reviewed and negative - CONSTITUTIONAL Constitutional: DENIES: Fever, Chills - EENT EENT: REPORTS: Ear Pain - NEURO Neurology: DENIES: Headache - CARDIOVASCULAR Cardiovascular: REPORTS: Chest pain - REPRODUCTIVE Reproductive: DENIES: : Past Medical History - General Information source: Patient - Social History Smoking Status: Never Smoker Chew tobacco use (# tins/day): No Frequency of alcohol use: None Drug Abuse: None Family History: Reviewed & Not Pertinent Patient has suicidal ideation: No Patient has homicidal ideation: No Pulmonary Medical History: Reports: Hx Asthma, Hx Bronchitis GI Medical History: Reports: Hx Irritable Bowel - constipation Musculoskeletal Medical History: Reports Hx Arthritis, Reports Hx Musculoskeletal Trauma Psychiatric Medical History: Reports: Hx Anxiety, Hx Bipolar Disorder, Hx Depression, Hx Personality Disorder, Hx Schizoaffective Disorder, Hx Schizophrenia Traumatic Medical History: Reports: Hx Fractures - Finger fracture Past Surgical History: Reports: Hx Abdominal Surgery, Hx Appendectomy, Hx Cholecystectomy, Hx Orthopedic Surgery - Immunizations Immunizations up to date: Yes Hx Diphtheria, Pertussis, Tetanus Vaccination: Yes - 2012 Hx Pneumococcal Vaccination: 08/23/00 Vertical Provider Document - CONSTITUTIONAL Agree With Documented VS: Yes Exam Limitations: No Limitations General Appearance: No Apparent Distress - INFECTION CONTROL TRAVEL OUTSIDE OF THE [place] IN LAST 30 DAYS: No - HEENT HEENT: Atraumatic, Normocephalic, PERRLA. negative: Conjuctival Injection, Pharyngeal Exudate, Pharyngeal Tenderness, Pharyngeal Erythema, Tympanic Membrane Red, Tympanic Membrane Bulging Notes: Small amount of edema and erythema noted to left external auditory canal - NECK Neck: Normal Inspection - RESPIRATORY Respiratory: Breath Sounds Normal, No Respiratory Distress - CARDIOVASCULAR Cardiovascular: Regular Rate, Regular Rhythm Pulses: Normal: Radial - MUSCULOSKELETAL/EXTREMETIES Musculoskeletal/Extremeties: FROM - NEURO Level of Consciousness: Awake, Alert, Appropriate Motor/Sensory: No Motor Deficit, No Sensory Deficit - DERM Integumentary: Warm, Dry, No Rash Course - Re-evaluation Re-evalutation: 09/17/19 01:50 Patient's physical exam and history is consistent with otitis externa. Patient will be placed on Ciprodex drops. I do not suspect patient has mastoiditis, as there is no pain at the mastoid process. Patient will follow-up with his primary care provider. Follow-up precautions were given. Verbal discharge instructions were given to the patient. They verbalized understanding. They are stable for discharge. - Vital Signs Vital signs: Temp Pulse Resp BP Pulse Ox 97.9 F 71 20 116/75 100 09/17/19 00:32 09/17/19 00:32 09/17/19 00:32 09/17/19 00:32 09/17/19 00:32 Discharge - Discharge Clinical Impression: Otitis externa Qualifiers: Otitis externa type: unspecified type Chronicity: acute Laterality: left Qualified Code(s): H60.502 - Unspecified acute noninfective otitis externa, left ear Condition: Stable Disposition: HOME, SELF-CARE Instructions: Otitis Externa ([facility]) Additional Instructions: You were seen today in the emergency department for left ear pain. You have an outer ear infection. Please place 4 drops of the antibiotic/steroid eardrops to your left ear twice a day for 7 days. Referrals: GIANCARLO CHANCE MD [Primary Care Provider] - Follow up in 3-5 days
[2019-09-17 02:12] VITALS: BP 114/76
== END 2019-09-17 02:10 | disposition home or self-care (01) ==
LOC: ER 19:20
DX: H60.502 Unspecified acute noninfective otitis externa, left ear (principal); H92.02 Otalgia, left ear; R07.9 Chest pain, unspecified; Z90.49 Acquired absence of other specified parts of digestive tract
CPT/HCPCS: 99283; J3490

== ENCOUNTER 2019-09-18 18:18 | Emergency (ER) | payer MEDICAID ==
--- NOTE | 2019-09-18 20:18 | ER Document Report ---
HPI - HPI Time Seen by Provider: 09/18/19 20:14 Pain Level: 2 Notes: Otherwise healthy 34-year-old male presenting to the emergency department with concern for possible mouth ulceration. Patient reports he went to the dentist for this, they told him he had an ulcer in his mouth. Patient reports the ulcer is doing okay but he had to use his inhaled corticosteroid for his asthma earlier today and he is now worried that the steroids may have gotten into his bloodstream. Patient is here to make sure that it was safe to use the inhaled corticosteroid in the setting of an active mouth ulcer. - REPRODUCTIVE Reproductive: DENIES: : Past Medical History - General Information source: Patient - Social History Smoking Status: Never Smoker Frequency of alcohol use: None Drug Abuse: None Family History: Reviewed & Not Pertinent Patient has suicidal ideation: No Patient has homicidal ideation: No Pulmonary Medical History: Reports: Hx Asthma, Hx Bronchitis GI Medical History: Reports: Hx Irritable Bowel - constipation Musculoskeletal Medical History: Reports Hx Arthritis, Reports Hx Musculoskeletal Trauma Psychiatric Medical History: Reports: Hx Anxiety, Hx Bipolar Disorder, Hx Depression, Hx Personality Disorder, Hx Schizoaffective Disorder, Hx Schizophrenia Traumatic Medical History: Reports: Hx Fractures - Finger fracture Past Surgical History: Reports: Hx Abdominal Surgery, Hx Appendectomy, Hx Cholecystectomy, Hx Orthopedic Surgery - Immunizations Immunizations up to date: Yes Hx Diphtheria, Pertussis, Tetanus Vaccination: Yes - 2012 Hx Pneumococcal Vaccination: 08/23/00 Vertical Provider Document - CONSTITUTIONAL Notes: PHYSICAL EXAMINATION: GENERAL: Well-appearing, well-nourished and in no acute distress. HEAD: Atraumatic, normocephalic. EYES: Pupils equal round extraocular movements intact, conjunctiva are normal. ENT: Nares patent, ulceration noted in bottom right side of mouth. NECK: Normal range of motion LUNGS: No respiratory distress Musculoskeletal: Normal range of motion NEUROLOGICAL: Normal speech, normal gait. PSYCH: Normal mood, normal affect. SKIN: Warm, Dry, normal turgor, no rashes or lesions noted. - INFECTION CONTROL TRAVEL OUTSIDE OF THE [place] IN LAST 30 DAYS: No Course - Re-evaluation Re-evalutation: Patient given reassurance that it is safe to use his asthma medications when he has a mouth ulcer. Patient verbalized understanding and agreement with this. - Vital Signs Vital signs: Temp Pulse Resp BP Pulse Ox 98.1 F 70 16 106/71 85 L 09/18/19 18:37 09/18/19 18:37 09/18/19 18:37 09/18/19 18:37 09/18/19 18:37 Discharge - Discharge Clinical Impression: Mouth ulcer Condition: Stable Disposition: HOME, SELF-CARE Additional Instructions: Please continue taking all medications as prescribed. It is safe to give you your Symbicort. Referrals: GIANCARLO CHANCE MD [Primary Care Provider] - Follow up as needed
[2019-09-18 20:26] VITALS: BP 103/65
== END 2019-09-18 20:36 | disposition home or self-care (01) ==
LOC: ER 18:18
DX: K12.1 Other forms of stomatitis (principal); Z90.49 Acquired absence of other specified parts of digestive tract
CPT/HCPCS: 99282

== ENCOUNTER 2019-09-21 01:35 | Emergency (ER) | payer MEDICAID ==
--- NOTE | 2019-09-21 04:22 | ER Document Report ---
ED General - General Chief Complaint: Sinus Congestion Stated Complaint: HEADACHE Time Seen by Provider: 09/21/19 04:21 Primary Care Provider: GIANCARLO CHANCE MD [Primary Care Provider] - Follow up as needed TRAVEL OUTSIDE OF THE [place] IN LAST 30 DAYS: No - HPI Onset/Duration: Gradual Quality of pain: No pain Severity: Moderate Context: 34 year old male arrives with complaints of a "bad head cold." He states he has had green and yellow nasal discharge. No fever or chills. No nausea or vomiting. Exacerbated by: Denies Relieved by: Denies - Related Data Allergies/Adverse Reactions: No Known Allergies Allergy (Verified 09/14/19 07:43) Past Medical History - Social History Smoking Status: Never Smoker Family History: Reviewed & Not Pertinent Patient has suicidal ideation: No Patient has homicidal ideation: No Pulmonary Medical History: Reports: Hx Asthma, Hx Bronchitis GI Medical History: Reports: Hx Irritable Bowel - constipation Musculoskeletal Medical History: Reports Hx Arthritis, Reports Hx Musculoskeletal Trauma Psychiatric Medical History: Reports: Hx Anxiety, Hx Bipolar Disorder, Hx Depression, Hx Personality Disorder, Hx Schizoaffective Disorder, Hx Schizophrenia Traumatic Medical History: Reports: Hx Fractures - Finger fracture Past Surgical History: Reports: Hx Abdominal Surgery, Hx Appendectomy, Hx Cholecystectomy, Hx Orthopedic Surgery - Immunizations Immunizations up to date: Yes Hx Diphtheria, Pertussis, Tetanus Vaccination: Yes - 2012 Hx Pneumococcal Vaccination: 08/23/00 Review of Systems - Review of Systems Constitutional: No symptoms reported EENT: No symptoms reported Cardiovascular: No symptoms reported Respiratory: No symptoms reported Gastrointestinal: No symptoms reported Genitourinary: No symptoms reported Male Genitourinary: No symptoms reported Musculoskeletal: No symptoms reported Skin: No symptoms reported Hematologic/Lymphatic: No symptoms reported Neurological/Psychological: No symptoms reported Physical Exam - Vital signs Vitals: Temp Pulse Resp BP Pulse Ox 97.3 F 67 15 138/83 H 98 09/21/19 01:40 09/21/19 01:40 09/21/19 01:40 09/21/19 01:40 09/21/19 01:40 Interpretation: Normal - General General appearance: Appears well, Alert - HEENT Head: Normocephalic, Atraumatic, Other - ttp over frontal sinuses. Eyes: Normal Pupils: PERRL - Respiratory Respiratory status: No respiratory distress Chest status: Nontender Breath sounds: Normal Chest palpation: Normal - Cardiovascular Rhythm: Regular Heart sounds: Normal auscultation Murmur: No - Abdominal Inspection: Normal Distension: No distension Bowel sounds: Normal Tenderness: Nontender Organomegaly: No organomegaly - Back Back: Normal, Nontender - Extremities General upper extremity: Normal inspection, Nontender, Normal color, Normal ROM, Normal temperature General lower extremity: Normal inspection, Nontender, Normal color, Normal ROM, Normal temperature, Normal weight bearing. No: Esdras's sign - Neurological Neuro grossly intact: Yes Cognition: Normal Orientation: AAOx4 Jasmin Coma Scale Eye Opening: Spontaneous [place] Coma Scale Verbal: Oriented Jasmin Coma Scale Motor: Obeys Commands [place] Coma Scale Total: 15 Speech: Normal Motor strength normal: LUE, RUE, LLE, RLE Sensory: Normal - Psychological Associated symptoms: Normal affect, Normal mood - Skin Skin Temperature: Warm Skin Moisture: Dry Skin Color: Normal Course - Re-evaluation Re-evalutation: 09/21/19 04:36 MDM 34 year old with Acute sinusitis. He is nontoxic here. Tells me he can get and will take medicine. Discussed return precautions and he expressed understanding. - Vital Signs Vital signs: Temp Pulse Resp BP Pulse Ox 97.3 F 67 15 138/83 H 98 09/21/19 01:40 09/21/19 01:40 09/21/19 01:40 09/21/19 01:40 09/21/19 01:40 Discharge - Discharge Clinical Impression: Acute sinusitis Qualifiers: Sinusitis location: frontal Recurrence: non-recurrent Qualified Code(s): J01.10 - Acute frontal sinusitis, unspecified Condition: Good Disposition: HOME, SELF-CARE Instructions: Sinusitis ([facility]) Additional Instructions: See your doctor in followup. Rest. Please return here for any problems or any concerns. Prescriptions: Amoxicillin 1 tab PO TID #30 tab Referrals: GIANCARLO CHANCE MD [Primary Care Provider] - Follow up as needed
[2019-09-21 05:24] VITALS: BP 118/85
== END 2019-09-21 05:22 | disposition home or self-care (01) ==
LOC: ER 01:35
DX: J01.10 Acute frontal sinusitis, unspecified (principal); R51 Headache; Z90.49 Acquired absence of other specified parts of digestive tract
CPT/HCPCS: 99283

== ENCOUNTER 2019-09-21 22:43 | Emergency (ER) | payer MEDICAID ==
[2019-09-21 23:47] VITALS: BP 121/76
--- NOTE | 2019-09-21 23:58 | ER Document Report ---
HPI - HPI Time Seen by Provider: 09/21/19 23:45 Pain Level: 2 Context: Patient is a 34-year-old male who presents to the emergency department with a chief complaint of possible allergic reaction. Patient reports that he was diagnosed with acute sinusitis earlier today and was prescribed amoxicillin. Patient reports he takes amoxicillin 500 mg 3 times daily. Patient reports he took a dose at 2 PM and then once again at 10 PM. Patient reports after each dose he felt a burning sensation to his tongue. He states that it felt like after he drink a hot beverage. Patient denies difficulty breathing or swallowing. Patient reports he is concerned he may have had an allergic reaction or is going to have an allergic reaction. Patient denies lip swelling. - REPRODUCTIVE Reproductive: DENIES: : Past Medical History - General Information source: Patient - Social History Smoking Status: Never Smoker Chew tobacco use (# tins/day): No Frequency of alcohol use: None Drug Abuse: None Lives with: Alone Family History: Reviewed & Not Pertinent Patient has suicidal ideation: No Patient has homicidal ideation: No - Past Medical History Cardiac Medical History: Reports: None Pulmonary Medical History: Reports: Hx Asthma, Hx Bronchitis EENT Medical History: Reports: None Neurological Medical History: Reports: None Endocrine Medical History: Reports: None Renal/ Medical History: Reports: None Malignancy Medical History: Reports None GI Medical History: Reports: Hx Irritable Bowel - constipation Musculoskeletal Medical History: Reports Hx Arthritis, Reports Hx Musculoskeletal Trauma Skin Medical History: Reports None Psychiatric Medical History: Reports: Hx Anxiety, Hx Bipolar Disorder, Hx Depression, Hx Personality Disorder, Hx Schizoaffective Disorder, Hx Schizophrenia Traumatic Medical History: Reports: Hx Fractures - Finger fracture Infectious Medical History: Reports: None Past Surgical History: Reports: Hx Abdominal Surgery, Hx Appendectomy, Hx Cholecystectomy, Hx Orthopedic Surgery - Immunizations Immunizations up to date: Yes Hx Diphtheria, Pertussis, Tetanus Vaccination: Yes - 2012 Hx Pneumococcal Vaccination: 08/23/00 Vertical Provider Document - CONSTITUTIONAL Agree With Documented VS: Yes Exam Limitations: No Limitations General Appearance: No Apparent Distress - INFECTION CONTROL TRAVEL OUTSIDE OF THE [place] IN LAST 30 DAYS: No - HEENT HEENT: Atraumatic, Normal ENT Exam, Normocephalic, PERRLA Notes: Tongue is midline. There is no lesions, blisters noted on the tongue. No excoriation. No edema. Patient's airway is patent, uvula is midline. There is no notable edema within the oropharynx. No angioedema. Speech is clear and appropriate. - NECK Neck: Normal Inspection - RESPIRATORY Respiratory: Breath Sounds Normal, No Respiratory Distress - CARDIOVASCULAR Cardiovascular: Regular Rate, Regular Rhythm - GI/ABDOMEN Gastrointestinal: Abdomen Soft, Abdomen Non-Tender, Normal Bowel Sounds - MUSCULOSKELETAL/EXTREMETIES Musculoskeletal/Extremeties: FROM - NEURO Level of Consciousness: Awake, Alert, Appropriate - DERM Integumentary: Warm, Dry, No Rash Course - Re-evaluation Re-evalutation: 09/21/19 23:59 Patient was seen in triage. I did inform the patient that he needs to stop the amoxicillin. I will place him on doxycycline twice daily for 1 week. This will also treat an acute sinusitis. Patient encouraged to get this filled and was given a good Rx prescription card. I did inform the patient to stay out of the sun while on this medication as it can cause sunburn. Patient verbalizes understanding. Patient to return if he does develop any facial edema, lip swelling, tongue swelling or any difficulty breathing or swallowing. Patient stable for discharge. - Vital Signs Vital signs: Temp Pulse Resp BP Pulse Ox 98.2 F 84 22 H 121/76 99 09/21/19 23:44 09/21/19 23:44 09/21/19 23:44 09/21/19 23:44 09/21/19 23:44 Discharge - Discharge Clinical Impression: Tongue pain Acute sinusitis Qualifiers: Sinusitis location: unspecified location Recurrence: non-recurrent Qualified Code(s): J01.90 - Acute sinusitis, unspecified Condition: Stable Disposition: HOME, SELF-CARE Additional Instructions: *Today was seen in the emergency department for possible allergic reaction. After taking 2 doses of amoxicillin you have reported a burning sensation to your tongue. Your physical exam was reassuring as there was no swelling to the tongue or to the back of your throat. I would stop taking the amoxicillin. I will give you doxycycline. Please take doxycycline twice a day for the next week. Please limit sun exposure while taking this medication as it can cause a sunburn. Take Tylenol and ibuprofen as needed for pain or fever. Sinusitis You have sinusitis, an infection of the sinus cavities of the face. The sinuses are air-filled chambers which open into the inside of the nose. Bacteria and pus fill a sinus, causing pain, drainage, and fever. Sinusitis is treated with antibiotics. Often, expectorants (to thin the sinus mucous) or decongestants (to reduce swelling) are prescribed as well. Healing requires seven to 10 days. Avoid chemical fumes, pollens, dusts, and smoke (especially cigarette smoke). Keep the air humidified in your bedroom and work area and take plenty of liquids by mouth. This condition can be serious if the infection spreads. If your symptoms worsen, or if you develop severe headache, high fever, stiff neck, or a rash, you must call the doctor or return for re-evaluation. Doxycycline Doxycycline (Vibramycin, Doryx) is an antibiotic of the tetracycline family. This type of drug is useful for infections of the respiratory tract and genital tract, and is sometimes used for intestinal infections. Unlike most tetracyclines, doxycycline can be taken with food. It is longer acting, and (usually) less prone to side effects than regular tetracycline. Tetracycline antibiotics can stain immature teeth and SHOULD NOT BE TAKEN BY CHILDREN, NURSING MOTHERS, OR WOMEN. Tetracyclines can make you more prone to sunburn. Abdominal cramping, nausea, and diarrhea are occasional side effects. Women may experience vaginal yeast infections. Call the doctor at once if you develop hives, itching, shortness of breath, or lightheadedness. Prescriptions: Doxycycline Monohydrate 100 mg PO BID 7 Days #14 capsule Referrals: GIANCARLO CHANCE MD [Primary Care Provider] - Follow up as needed
== END 2019-09-21 23:55 | disposition home or self-care (01) ==
LOC: ER 22:43
DX: K14.6 Glossodynia (principal); J01.90 Acute sinusitis, unspecified; Z90.49 Acquired absence of other specified parts of digestive tract
CPT/HCPCS: 99283

== ENCOUNTER 2019-09-22 00:17 | Emergency (ER) | payer MEDICAID ==
--- NOTE | 2019-09-22 06:47 | ER Document Report ---
ED General - General Chief Complaint: Epigastric Pain Stated Complaint: BACK ABDOMINAL PAIN Time Seen by Provider: 09/22/19 06:16 Primary Care Provider: GIANCARLO CHANCE MD [Primary Care Provider] - Follow up in 3-5 days Notes: 34-year-old male who is well-known to this ER presents for epigastric pain. Patient states he thinks it is gas. Patient denies any nausea/vomiting or fevers. Patient was just discharged from this ER a couple hours ago. TRAVEL OUTSIDE OF THE [place] IN LAST 30 DAYS: No - Related Data Allergies/Adverse Reactions: No Known Allergies Allergy (Verified 09/14/19 07:43) Home Medications: Albuterol Past Medical History - Social History Smoking Status: Never Smoker Chew tobacco use (# tins/day): No Frequency of alcohol use: None Drug Abuse: None Family History: Reviewed & Not Pertinent Patient has suicidal ideation: No Patient has homicidal ideation: No Pulmonary Medical History: Reports: Hx Asthma, Hx Bronchitis GI Medical History: Reports: Hx Irritable Bowel - constipation Musculoskeletal Medical History: Reports Hx Arthritis, Reports Hx Musculoskeletal Trauma Psychiatric Medical History: Reports: Hx Anxiety, Hx Bipolar Disorder, Hx Depression, Hx Personality Disorder, Hx Schizoaffective Disorder, Hx Schizophrenia Traumatic Medical History: Reports: Hx Fractures - Finger fracture Past Surgical History: Reports: Hx Abdominal Surgery, Hx Appendectomy, Hx Cholecystectomy, Hx Orthopedic Surgery - Immunizations Immunizations up to date: Yes Hx Diphtheria, Pertussis, Tetanus Vaccination: Yes - 2012 Hx Pneumococcal Vaccination: 08/23/00 Review of Systems - Review of Systems Notes: Constitutional: Negative for fever. HENT: Negative for sore throat. Eyes: Negative for visual changes. Cardiovascular: Negative for chest pain. Respiratory: Negative for shortness of breath. Gastrointestinal: Positive for abdominal pain. Negative for vomiting or diarrhea. Genitourinary: Negative for dysuria. Musculoskeletal: Negative for back pain. Skin: Negative for rash. Neurological: Negative for headaches, weakness or numbness. 10 point ROS negative except as marked above and in HPI. Physical Exam - Vital signs Vitals: Temp Pulse Resp BP Pulse Ox 98.5 F 88 19 129/81 H 99 09/22/19 01:35 09/22/19 01:35 09/22/19 01:35 09/22/19 01:35 09/22/19 01:35 - Notes Notes: GENERAL: Well-appearing, well-nourished and in no acute distress. HEAD: Atraumatic, normocephalic. EYES: Extraocular movements intact, sclera anicteric, conjunctiva are normal. NECK: Normal range of motion, supple without lymphadenopathy or JVD. ABDOMEN: Soft, nontender. No guarding, no rebound. No masses appreciated. EXTREMITIES: Normal range of motion, no pitting or edema. No clubbing or cyanosis. NEUROLOGICAL: Cranial nerves II through XII grossly intact. Normal speech, normal gait. PSYCH: Normal mood, normal affect. SKIN: Warm, Dry, normal turgor, no rashes or lesions noted. Course - Re-evaluation Re-evalutation: 09/22/19 nontoxic, well-appearing 34-year-old male presents for abdominal pain. Abdomen soft nontender. PE is otherwise unremarkable. Patient is not hypoxic, not tachycardic, afebrile. Patient prescribed Bentyl. Patient given close follow-up with PCP. Strict return precautions given. All questions/concerns addressed prior to discharge. - Vital Signs Vital signs: Temp Pulse Resp BP Pulse Ox 98.2 F 76 16 128/63 H 99 09/22/19 06:55 09/22/19 06:55 09/22/19 06:55 09/22/19 06:55 09/22/19 06:55 Discharge - Discharge Clinical Impression: Epigastric pain, Encounter for medical screening examination Condition: Stable Disposition: HOME, SELF-CARE Instructions: Abdominal Pain ([facility]) Additional Instructions: Please take medication as prescribed. Please follow-up with your primary care doctor in 3 to 5 days. Return immediately to ER if you start having any worsening symptoms, including worsening abdominal pain, nausea/vomiting, diarrhea, constipation, fever, chest pain, shortness of breath, or any other symptoms that are concerning to you. Prescriptions: Dicyclomine HCl [Bentyl 20 mg Tablet] 20 mg PO QID #40 tablet Referrals: GIANCARLO CHANCE MD [Primary Care Provider] - Follow up in 3-5 days
[2019-09-22 06:56] VITALS: BP 128/63
== END 2019-09-22 06:55 | disposition home or self-care (01) ==
LOC: ER 00:17
DX: R10.13 Epigastric pain (principal); J45.909 Unspecified asthma, uncomplicated; Z79.899 Other long term (current) drug therapy
CPT/HCPCS: 99283

== ENCOUNTER 2019-09-22 18:11 | Emergency (ER) | payer MEDICAID ==
[2019-09-22 19:00] VITALS: BP 103/67
--- NOTE | 2019-09-22 20:50 | ER Document Report ---
HPI - HPI Patient complains to provider of: Concerned about antibiotics Time Seen by Provider: 09/22/19 20:41 Onset: This morning Onset/Duration: Gone Quality of pain: No pain Severity: None Pain Level: Denies Context: 34-year-old male presented to ED for complaint that his tongue felt hot after he took his antibiotics that he was prescribed yesterday. He states he was started on antibiotics by 1 doctor yesterday for sinusitis with amoxicillin. He states he came in evening due to the pain in his tongue and was given a second antibiotic doxycycline. He states that he went to the drugstore and they told him that if that did not work he should go back and get a different antibiotic. He states he is was seen this morning for abdominal pain but that is better. He states he also does not have any pain in his face anymore. He states he is not taking either of the antibiotics at this time. He does have some swelling swelling to the nasal passage which could very well be a viral infection. He does not have any pain or fever. I have told him to stop both antibiotics if he is not having the facial pain anymore. Associated Symptoms: None Exacerbated by: Denies Relieved by: Denies Similar symptoms previously: Yes Recently seen / treated by doctor: Yes - ROS ROS below otherwise negative: Yes - CONSTITUTIONAL Constitutional: DENIES: Fever, Chills - EENT EENT: DENIES: Sore Throat, Ear Pain, Nasal Drainage-Clear, Nasal Drainage- Purulent, Congestion, Eye problems - NEURO Neurology: DENIES: Headache, Weakness, Vision blurred, Dizzinesss / Vertigo - CARDIOVASCULAR Cardiovascular: DENIES: Chest pain - RESPIRATORY Respiratory: DENIES: Trouble Breathing, Coughing - GASTROINTESTINAL Gastrointestinal: DENIES: Abdominal Pain, Nausea, Patient vomiting, Diarrhea, Constipation, Black / Bloody Stools - URINARY Urinary: DENIES: Dysuria, Urgency, Frequency - REPRODUCTIVE Reproductive: DENIES: :, Postmenopausal, Abnormal bleeding / discharge - MUSCULOSKELETAL Musculoskeletal: DENIES: Extremity pain, Back Pain, Neck Pain, Swelling - DERM Skin Color: Normal Skin Problems: None Past Medical History - General Information source: Patient - Social History Smoking Status: Unknown if Ever Smoked Frequency of alcohol use: None Drug Abuse: None Lives with: Homeless Family History: Reviewed & Not Pertinent Patient has suicidal ideation: No Patient has homicidal ideation: No - Past Medical History Cardiac Medical History: Reports: None Pulmonary Medical History: Reports: Hx Asthma, Hx Bronchitis EENT Medical History: Reports: None Neurological Medical History: Reports: None Endocrine Medical History: Reports: None Renal/ Medical History: Reports: None Malignancy Medical History: Reports None GI Medical History: Reports: Hx Irritable Bowel - constipation Musculoskeletal Medical History: Reports Hx Arthritis, Reports Hx Musculoskeletal Trauma Skin Medical History: Reports None Psychiatric Medical History: Reports: Hx Anxiety, Hx Bipolar Disorder, Hx Depression, Hx Personality Disorder, Hx Schizoaffective Disorder, Hx Schizophrenia Traumatic Medical History: Reports: Hx Fractures - Finger fracture Infectious Medical History: Reports: None Past Surgical History: Reports: Hx Abdominal Surgery, Hx Appendectomy, Hx Cholecystectomy, Hx Orthopedic Surgery - Immunizations Immunizations up to date: Yes Hx Diphtheria, Pertussis, Tetanus Vaccination: Yes - 2012 Hx Pneumococcal Vaccination: 08/23/00 Vertical Provider Document - CONSTITUTIONAL Agree With Documented VS: Yes Exam Limitations: No Limitations General Appearance: WD/WN, No Apparent Distress - INFECTION CONTROL TRAVEL OUTSIDE OF THE [place] IN LAST 30 DAYS: No - HEENT HEENT: Atraumatic, Normocephalic, PERRLA Notes: Very mild swelling to nasal turbinates no redness no facial pain postnasal drip all signs and symptoms of upper respiratory infection not a bacterial sinusitis she states he is having no pain and feels much better and does not want to take antibiotics because he is scared of them. - NECK Neck: Normal Inspection, Supple, Thyroid Normal - RESPIRATORY Respiratory: Breath Sounds Normal, No Respiratory Distress, Chest Non-Tender - CARDIOVASCULAR Cardiovascular: Regular Rate, Regular Rhythm - MUSCULOSKELETAL/EXTREMETIES Musculoskeletal/Extremeties: MAEW, FROM, Non-Tender - NEURO Level of Consciousness: Awake, Alert, Appropriate - DERM Integumentary: Warm, Dry, No Rash Course - Vital Signs Vital signs: Temp Pulse Resp BP Pulse Ox 98.3 F 78 16 103/67 94 09/22/19 18:59 09/22/19 18:59 09/22/19 18:59 09/22/19 18:59 09/22/19 18:59 Discharge - Discharge Clinical Impression: Patient concerned Upper respiratory infection Qualifiers: URI type: unspecified viral URI Qualified Code(s): J06.9 - Acute upper respiratory infection, unspecified Condition: Stable Disposition: HOME, SELF-CARE Instructions: Acetaminophen, Upper Respiratory Illness ([facility]), Viral Syndrome ([facility]) Referrals: GIANCARLO CHANCE MD [Primary Care Provider] - Follow up in 3-5 days
== END 2019-09-22 20:58 | disposition home or self-care (01) ==
LOC: ER 18:11
DX: J06.9 Acute upper respiratory infection, unspecified (principal); B97.89 Other viral agents as the cause of diseases classified elsewhere; J32.9 Chronic sinusitis, unspecified; J45.909 Unspecified asthma, uncomplicated
CPT/HCPCS: 99283

== ENCOUNTER 2019-09-23 09:28 | Emergency (ER) | payer MEDICAID ==
[2019-09-23 09:34] VITALS: BP 134/83
--- NOTE | 2019-09-23 09:41 | ER Document Report ---
HPI - HPI Patient complains to provider of: dirt in nose Time Seen by Provider: 09/23/19 09:30 Pain Level: Denies Notes: 34-year-old male to the emergency department with complaints of started in his nose. He states that he thinks he might of gotten dirt in his nose from his hands. He states that he blew his nose and got dirt out. He states he called poison control and they told him he be okay but he was unsure and so he decided to come here for further evaluation. - CONSTITUTIONAL Constitutional: DENIES: Fever, Chills - EENT EENT: DENIES: Sore Throat, Ear Pain Notes: Dirt in nose - NEURO Neurology: DENIES: Headache - CARDIOVASCULAR Cardiovascular: DENIES: Chest pain - RESPIRATORY Respiratory: DENIES: Trouble Breathing, Coughing - GASTROINTESTINAL Gastrointestinal: DENIES: Abdominal Pain, Nausea, Patient vomiting, Diarrhea - MUSCULOSKELETAL Musculoskeletal: DENIES: Extremity pain, Back Pain, Neck Pain, Swelling - DERM Skin Color: Normal Skin Problems: None Past Medical History - General Information source: Patient - Social History Smoking Status: Never Smoker Frequency of alcohol use: None Drug Abuse: None Family History: Reviewed & Not Pertinent Patient has suicidal ideation: No Patient has homicidal ideation: No Pulmonary Medical History: Reports: Hx Asthma, Hx Bronchitis GI Medical History: Reports: Hx Irritable Bowel - constipation Musculoskeletal Medical History: Reports Hx Arthritis, Reports Hx Musculoskeletal Trauma Psychiatric Medical History: Reports: Hx Anxiety, Hx Bipolar Disorder, Hx Depression, Hx Personality Disorder, Hx Schizoaffective Disorder, Hx Schizophrenia Traumatic Medical History: Reports: Hx Fractures - Finger fracture Past Surgical History: Reports: Hx Abdominal Surgery, Hx Appendectomy, Hx Cholecystectomy, Hx Orthopedic Surgery - Immunizations Immunizations up to date: Yes Hx Diphtheria, Pertussis, Tetanus Vaccination: Yes - 2012 Hx Pneumococcal Vaccination: 08/23/00 Vertical Provider Document - CONSTITUTIONAL Agree With Documented VS: Yes Exam Limitations: No Limitations General Appearance: WD/WN, No Apparent Distress - INFECTION CONTROL TRAVEL OUTSIDE OF THE [place] IN LAST 30 DAYS: No - HEENT HEENT: Atraumatic, Normal ENT Exam, Normocephalic, PERRLA Notes: There is no foreign body or evidence of dirt in the nose. No septal hematoma. - NECK Neck: Normal Inspection, Supple - RESPIRATORY Respiratory: Breath Sounds Normal, No Respiratory Distress. negative: Rales, Rhonchi, Wheezing - CARDIOVASCULAR Cardiovascular: Regular Rate, Regular Rhythm, No Murmur - GI/ABDOMEN Gastrointestinal: Abdomen Soft, Abdomen Non-Tender - NEURO Level of Consciousness: Awake, Alert Motor/Sensory: No Motor Deficit, No Sensory Deficit - DERM Integumentary: Warm, Dry, No Rash Course - Re-evaluation Re-evalutation: 09/23/19 Impression: Normal ENT exam. Patient came in with concern for dirt in his nose. Exam reveals no dirt in his nose or foreign body. He has no septal hematoma. We will discharge home. Encouraged use of nasal saline. - Vital Signs Vital signs: Temp Pulse Resp BP Pulse Ox 97.5 F 56 L 18 134/83 H 100 09/23/19 09:32 09/23/19 09:32 09/23/19 09:32 09/23/19 09:32 09/23/19 09:32 Discharge - Discharge Clinical Impression: ENT complaint, Normal nasal exam Condition: Stable Disposition: HOME, SELF-CARE Additional Instructions: Use nasal saline. No dirt was seen in your nose today. Follow-up with your primary care physician. Referrals: GIANCARLO CHANCE MD [Primary Care Provider] - Follow up in 3-5 days
== END 2019-09-23 09:44 | disposition home or self-care (01) ==
LOC: ER 09:28
DX: Z71.1 Person with feared health complaint in whom no diagnosis is made (principal); T17.1XXA Foreign body in nostril, initial encounter; J45.909 Unspecified asthma, uncomplicated
CPT/HCPCS: 99282

== ENCOUNTER 2019-09-24 21:40 | Emergency (ER) | payer MEDICAID ==
--- NOTE | 2019-09-24 22:32 | ER Document Report ---
HPI - HPI Time Seen by Provider: 09/24/19 22:05 Context: Patient is a 34-year-old male that comes emergency department for chief complaint of concerns about his blood pressure being elevated. He also states that he has been congested in his sinuses with postnasal drip and nasal drainage for the past few days. He denies difficulty breathing, fever, headache, chest pain, or any other complaints at this time. He does admit that he was upset earlier about 1 of his colleagues being "unprofessional", and he states he has calmed down now. Patient is a history of asthma and schizophrenia. - REPRODUCTIVE Reproductive: DENIES: : Past Medical History - General Information source: Patient - Social History Smoking Status: Never Smoker Frequency of alcohol use: None Drug Abuse: None Lives with: Alone Family History: Reviewed & Not Pertinent Pulmonary Medical History: Reports: Hx Asthma, Hx Bronchitis GI Medical History: Reports: Hx Irritable Bowel - constipation Musculoskeletal Medical History: Reports Hx Arthritis, Reports Hx Musculoskeletal Trauma Psychiatric Medical History: Reports: Hx Anxiety, Hx Bipolar Disorder, Hx Depression, Hx Personality Disorder, Hx Schizoaffective Disorder, Hx Schizophrenia Traumatic Medical History: Reports: Hx Fractures - Finger fracture Past Surgical History: Reports: Hx Abdominal Surgery, Hx Appendectomy, Hx Cholecystectomy, Hx Orthopedic Surgery - Immunizations Immunizations up to date: Yes Hx Diphtheria, Pertussis, Tetanus Vaccination: Yes - 2012 Hx Pneumococcal Vaccination: 08/23/00 Vertical Provider Document - CONSTITUTIONAL General Appearance: WD/WN, No Apparent Distress - INFECTION CONTROL TRAVEL OUTSIDE OF THE [place] IN LAST 30 DAYS: No - HEENT HEENT: Atraumatic, Normocephalic. negative: Normal ENT Exam - Mild rhinorrhea and mild nasal congestion, nontender sinuses, unremarkable oropharyngeal exam, unremarkable ears and eyes - NECK Neck: Normal Inspection - RESPIRATORY Respiratory: Breath Sounds Normal, No Respiratory Distress. negative: Wheezing - CARDIOVASCULAR Cardiovascular: Regular Rate, Regular Rhythm. negative: Tachycardia - GI/ABDOMEN Gastrointestinal: Abdomen Soft, Abdomen Non-Tender - BACK Back: Normal Inspection - MUSCULOSKELETAL/EXTREMETIES Musculoskeletal/Extremeties: MAEW, FROM, Non-Tender - NEURO Level of Consciousness: Awake, Alert, Appropriate - DERM Integumentary: Warm, Dry, No Rash Course - Re-evaluation Re-evalutation: Patient's blood pressure is borderline, 140s initially, 130s on recheck. He has no headache, chest pain, dizziness, or any other complaints other than sinus congestion which is not new. He is talkative, alert, well-appearing. Unremarkable vitals otherwise. Unremarkable physical exam otherwise. Discussed with patient, he will have this routinely rechecked with primary care, will be provided with Flonase and I discussed all recommendations for sinus congestion, discussed return precautions. Patient states understanding and agreement. - Vital Signs Vital signs: Temp Pulse Resp BP Pulse Ox 97.9 F 77 16 136/93 H 100 09/24/19 21:44 09/24/19 21:44 09/24/19 21:44 09/24/19 21:45 09/24/19 21:44 Discharge - Discharge Clinical Impression: Sinus congestion, Elevated blood pressure reading Condition: Stable Disposition: HOME, SELF-CARE Additional Instructions: Your exam shows sinus congestion. Take the prescribed nasal spray, [id number] decongestant such as Sudafed can help, steam and products like the neti pot can also help. Your blood pressure was slightly elevated today, this can be routinely rechecked with primary care for additional monitoring and management. Return for any concerning symptoms including severe headache, vomiting, chest pain, fever, difficulty breathing, or any other concerning symptoms. Prescriptions: Fluticasone Propionate [Flonase Nasal [place] 50 Mcg/[place] 16 gm] 2 sprays NASL Q12 #1 inhaler Referrals: GIANCARLO CHANCE MD [Primary Care Provider] - Follow up in 1 week
[2019-09-24 22:51] VITALS: BP 133/82
== END 2019-09-24 22:52 | disposition home or self-care (01) ==
LOC: ER 21:40
DX: R09.81 Nasal congestion (principal); R03.0 Elevated blood-pressure reading, without diagnosis of hypertension; R09.82 Postnasal drip; Z90.49 Acquired absence of other specified parts of digestive tract
CPT/HCPCS: 99283

== ENCOUNTER 2019-09-25 05:40 | Emergency (ER) | payer MEDICAID ==
[2019-09-25 07:37] VITALS: BP 117/66
--- NOTE | 2019-09-25 16:12 | ER Document Report ---
Entered by MALU VERGARA SCRIBE 09/25/19 0647 Acting as scribe for:SARA CHRISTIANSEN MD ED General - General Chief Complaint: Difficulty Swallowing Stated Complaint: CHECK THROAT Time Seen by Provider: 09/25/19 06:19 Primary Care Provider: GIANCARLO CHANCE MD [Primary Care Provider] - Follow up as needed Mode of Arrival: Ambulatory Information source: Patient Notes: This 34-year-old male patient that is well-known to this emergency department presents today with complaints of a sensation that something is stuck in his throat. Patient states "you know how sometimes when you eat meat not all of it goes all the way down?". Patient states he has "throat spasms as well". Patient states he coughed and spit up most of the food and he thinks he might have "got it all out now". Patient denies any difficulty breathing, swallowing, or handling his secretions. Airway is patent. TRAVEL OUTSIDE OF THE [place] IN LAST 30 DAYS: No - Related Data Allergies/Adverse Reactions: No Known Allergies Allergy (Verified 09/25/19 06:03) Home Medications: albuterol inh Past Medical History - General Information source: Patient - Social History Smoking Status: Never Smoker Cigarette use (# per day): No Frequency of alcohol use: None Drug Abuse: None Lives with: Homeless Family History: Reviewed & Not Pertinent Patient has suicidal ideation: No Patient has homicidal ideation: No Pulmonary Medical History: Reports: Hx Asthma, Hx Bronchitis GI Medical History: Reports: Hx Irritable Bowel - constipation Musculoskeletal Medical History: Reports Hx Arthritis, Reports Hx Musculoskeletal Trauma Psychiatric Medical History: Reports: Hx Anxiety, Hx Bipolar Disorder, Hx Depression, Hx Personality Disorder, Hx Schizoaffective Disorder, Hx Schizophrenia Traumatic Medical History: Reports: Hx Fractures - Finger fracture Past Surgical History: Reports: Hx Abdominal Surgery, Hx Appendectomy, Hx Cholecystectomy, Hx Orthopedic Surgery - Immunizations Immunizations up to date: Yes Hx Diphtheria, Pertussis, Tetanus Vaccination: Yes - 2012 Hx Pneumococcal Vaccination: 08/23/00 Review of Systems - Review of Systems Constitutional: No symptoms reported EENT: See HPI, Other - sensation that something is in throat Cardiovascular: No symptoms reported Respiratory: See HPI. denies: Wheezing Gastrointestinal: No symptoms reported Genitourinary: No symptoms reported Male Genitourinary: No symptoms reported Musculoskeletal: No symptoms reported Skin: No symptoms reported Hematologic/Lymphatic: No symptoms reported Neurological/Psychological: No symptoms reported -: Yes All other systems reviewed and negative Physical Exam - Vital signs Vitals: Temp Pulse Resp BP Pulse Ox 98.3 F 91 16 135/69 H 93 09/25/19 05:45 09/25/19 05:45 09/25/19 05:45 09/25/19 05:45 09/25/19 05:45 - Notes Notes: Physical Exam: General: Alert, appears at baseline. HEENT: Normocephalic. Atraumatic. PERRL. Extraocular movements intact. Oropharynx clear. Airway is patent, there is no foreign body, there is no tonsillar hypertrophy, erythema, or exudate. TMs are clear bilaterally. Neck: Supple. Non-tender. Respiratory: No respiratory distress. Minimal wheezing bilaterally. Cardiovascular: Regular rate and rhythm. Abdominal: Normal Inspection. Non-tender. No distension. Normal Bowel Sounds. Back: No gross abnormalities. Extremities: Moves all four extremities. Upper extremities: Normal inspection. Normal ROM. Lower extremities: Normal inspection. No edema. Normal ROM. Neurological: Normal cognition. AAOx4. Normal speech. Skin: Warm. Dry. Normal color. Course - Re-evaluation Re-evalutation: 09/25/19 07:06 Vital signs stable. No respiratory distress no airway compromise no stridor. Pharynx is clear lungs trace wheeze (patient is an asthmatic). Pulse oximetry is 96%. No tachypnea patient reports that he throughout the below the food that he felt was stuck in his throat and has no further problems at this time. - Vital Signs Vital signs: Temp Pulse Resp BP Pulse Ox 97.4 F 59 L 16 117/66 96 09/25/19 07:36 09/25/19 07:36 09/25/19 07:36 09/25/19 07:36 09/25/19 07:36 Discharge - Discharge Clinical Impression: Choking due to food (regurgitated) Qualifiers: Encounter type: initial encounter Qualified Code(s): T17.320A - Food in larynx causing asphyxiation, initial encounter Condition: Stable Disposition: HOME, SELF-CARE Additional Instructions: Choking Episode We frequently see patients who've had a choking episode. Sometimes the cause is obvious, such as a bit of food. In other cases, something within the body is responsible. For example, with reflux, stomach fluids come up into the throat. In newborns or in children with a viral infection, sticky mucous may get into the throat from the nose or chest. Most patients do fine after a choking spell. But food, stomach fluid, and small objects can get into the airway during the choking episode. X-rays and exam can't always detect this. Foreign material in the lung can cause pneumonia. If there are recurring episodes of choking, you will need an evaluation to look for a cause, such as reflux or a problem with the esophagus. Return at once if there is shortness of breath, fever, cough, chest pain, abdominal pain, or inability to speak. Referrals: GIANCARLO CHANCE MD [Primary Care Provider] - Follow up as needed I personally performed the services described in the documentation, reviewed and edited the documentation which was dictated to the scribe in my presence, and it accurately records my words and actions.
== END 2019-09-25 07:37 | disposition home or self-care (01) ==
LOC: ER 05:40
DX: T17.320A Food in larynx causing asphyxiation, initial encounter (principal); X58.XXXA Exposure to other specified factors, initial encounter; J45.909 Unspecified asthma, uncomplicated; Z79.899 Other long term (current) drug therapy; Z59.0 Homelessness
CPT/HCPCS: 99283

== ENCOUNTER 2019-09-25 21:43 | Emergency (ER) | payer MEDICAID ==
--- NOTE | 2019-09-25 23:17 | ER Document Report ---
ED Medical Screen (RME) - General Chief Complaint: Sore Throat Stated Complaint: THROAT PAIN Time Seen by Provider: 09/25/19 23:12 Primary Care Provider: GIANCARLO CHANCE MD [Primary Care Provider] - Follow up as needed Notes: 34-year-old male presents with "throat spasms" that have been ongoing for "a little while." Patient speaks full sentences without difficulty. Patient is nontoxic, well-appearing. I have greeted and performed a rapid initial assessment of this patient. A comprehensive ED assessment and evaluation of the patient, analysis of test results and completion of the medical decision making process with be conducted by additional ED providers. TRAVEL OUTSIDE OF THE [place] IN LAST 30 DAYS: No - Related Data Allergies/Adverse Reactions: No Known Allergies Allergy (Verified 09/25/19 06:03) Home Medications: albuterol Past Medical History - Social History Family history: Reviewed & Not Pertinent Pulmonary Medical History: Reports: Hx Asthma, Hx Bronchitis GI Medical History: Reports: Hx Irritable Bowel - constipation Musculoskeltal Medical History: Reports Hx Arthritis, Reports Hx Musculoskeletal Trauma Psychiatric Medical History: Reports: Hx Anxiety, Hx Bipolar Disorder, Hx Depression, Hx Personality Disorder, Hx Schizoaffective Disorder, Hx Schizophrenia Traumatic Medical History: Reports: Hx Fractures - Finger fracture Past Surgical History: Reports: Hx Abdominal Surgery, Hx Appendectomy, Hx Cholecystectomy, Hx Orthopedic Surgery - Immunizations Immunizations up to date: Yes Hx Diphtheria, Pertussis, Tetanus Vaccination: Yes - 2012 Physical Exam - Vital signs Vitals: Temp Pulse Resp BP Pulse Ox 98.7 F 74 16 127/79 H 98 09/25/19 22:20 09/25/19 22:20 09/25/19 22:20 09/25/19 22:20 09/25/19 22:20 Course - Vital Signs Vital signs: Temp Pulse Resp BP Pulse Ox 98.7 F 74 16 127/79 H 98 09/25/19 22:20 09/25/19 22:20 09/25/19 22:20 09/25/19 22:20 09/25/19 22:20 Doctor's Discharge - Discharge Referrals: GIANCARLO CHANCE MD [Primary Care Provider] - Follow up as needed
[2019-09-26 06:51] VITALS: BP 116/77
--- NOTE | 2019-10-02 11:05 | ER Document Report ---
Entered by MALU VERGARA SCRIBE 09/26/19 0639 Acting as scribe for:SARA CHRISTIANSEN MD ED General - General Chief Complaint: Sore Throat Stated Complaint: THROAT PAIN Time Seen by Provider: 09/25/19 23:12 Primary Care Provider: GIANCARLO CHANCE MD [Primary Care Provider] - Follow up as needed Mode of Arrival: Ambulatory Information source: Patient Notes: This 34-year-old TRAVEL OUTSIDE OF THE [place] IN LAST 30 DAYS: No - Related Data Allergies/Adverse Reactions: No Known Allergies Allergy (Verified 09/28/19 22:46) Home Medications: albuterol Past Medical History - General Information source: Patient - Social History Smoking Status: Never Smoker Cigarette use (# per day): No Frequency of alcohol use: None Drug Abuse: None Lives with: Family Family History: Reviewed & Not Pertinent Patient has suicidal ideation: No Patient has homicidal ideation: No Pulmonary Medical History: Reports: Hx Asthma, Hx Bronchitis GI Medical History: Reports: Hx Irritable Bowel - constipation Musculoskeletal Medical History: Reports Hx Arthritis, Reports Hx Musculoskeletal Trauma Psychiatric Medical History: Reports: Hx Anxiety, Hx Bipolar Disorder, Hx Depression, Hx Personality Disorder, Hx Schizoaffective Disorder, Hx Schizophrenia Traumatic Medical History: Reports: Hx Fractures - Finger fracture Past Surgical History: Reports: Hx Abdominal Surgery, Hx Appendectomy, Hx Cholecystectomy, Hx Orthopedic Surgery - Immunizations Immunizations up to date: Yes Hx Diphtheria, Pertussis, Tetanus Vaccination: Yes - 2012 Hx Pneumococcal Vaccination: 08/23/00 Review of Systems - Review of Systems Constitutional: No symptoms reported EENT: See HPI, Other. denies: Nose congestion Cardiovascular: No symptoms reported Respiratory: No symptoms reported Gastrointestinal: No symptoms reported Genitourinary: No symptoms reported Male Genitourinary: No symptoms reported Musculoskeletal: No symptoms reported Skin: No symptoms reported Hematologic/Lymphatic: No symptoms reported Neurological/Psychological: No symptoms reported -: Yes All other systems reviewed and negative Physical Exam - Vital signs Vitals: Temp Pulse Resp BP Pulse Ox 98.7 F 74 16 127/79 H 98 09/25/19 22:20 09/25/19 22:20 09/25/19 22:20 09/25/19 22:20 09/25/19 22:20 - Notes Notes: Physical Exam: General: Alert, appears well. Malodorous. HEENT: Normocephalic. Atraumatic. PERRL. Extraocular movements intact. Oropharynx clear. no posterior oropharynx erythema, exudate or foreign body. Neck: Supple. Non-tender. Respiratory: No respiratory distress. Clear and equal breath sounds bilaterally. Cardiovascular: Regular rate and rhythm. Abdominal: Normal Inspection. Non-tender. No distension. Normal Bowel Sounds. Back: No gross abnormalities. Extremities: Moves all four extremities. Upper extremities: Normal inspection. Normal ROM. Lower extremities: Normal inspection. No edema. Normal ROM. Neurological: Normal cognition. AAOx4. Normal speech. Psychological: Normal affect. Normal Mood. Skin: Warm. Dry. Normal color. Course - Re-evaluation Re-evalutation: 09/26/19 06:40 Currently not showing any signs of distress of of breathing swallowing. Lungs are clear without wheezing pharynx no obstruction no erythema no tonsillar swelling. - Vital Signs Vital signs: Temp Pulse Resp BP Pulse Ox 98.5 F 57 L 20 116/77 96 09/26/19 06:49 09/26/19 06:49 09/26/19 03:37 09/26/19 06:49 09/26/19 06:49 Discharge - Discharge Clinical Impression: Sore throat (viral) Condition: Stable Disposition: HOME, SELF-CARE Instructions: Acetaminophen, Sore Throat ([facility]) Referrals: GIANCARLO CHANCE MD [Primary Care Provider] - Follow up as needed I personally performed the services described in the documentation, reviewed and edited the documentation which was dictated to the scribe in my presence, and it accurately records my words and actions.
== END 2019-09-26 06:55 | disposition home or self-care (01) ==
LOC: ER 21:43
DX: J02.9 Acute pharyngitis, unspecified (principal); Z90.49 Acquired absence of other specified parts of digestive tract
CPT/HCPCS: 99282

== ENCOUNTER 2019-09-26 18:00 | Emergency (ER) | payer MEDICAID ==
[2019-09-26 18:56] VITALS: BP 118/69
--- NOTE | 2019-09-26 19:13 | ER Document Report ---
HPI - HPI Time Seen by Provider: 09/26/19 19:05 Pain Level: Denies Context: CHIEF COMPLAINT: Epigastric burning after drinking Mountain Dew HPI: 34-year-old male presenting to the emergency department complaining of epigastric burning after drinking about due to quickly. States he felt worse earlier but now is feeling better. No abdominal pain nausea or vomiting. No shortness of breath or chest pain. ROS: See HPI - all other systems were reviewed and are otherwise negative Constitutional: no fever ENT: no runny nose, no sore throat Cardiovascular: no chest pain Resp: no SOB, no cough GI: no vomiting, no diarrhea, positive epigastric burning Integumentary: no rash Allergy: no hives MEDICATIONS: I agree with the patient medications as charted by the RN. ALLERGIES: I agree with the allergies as charted by the RN. PAST MEDICAL HISTORY/PAST SURGICAL HISTORY: Reviewed and agree as charted by RN. SOCIAL HISTORY: Reviewed and agree as charted by RN. FAMILY HISTORY: No significant familial comorbid conditions directly related to patient complaint EXAM: Reviewed vital signs as charted by RN. CONSTITUTIONAL: Alert and oriented and responds appropriately to questions. Well-appearing; well-nourished, no acute distress HEAD: Normocephalic; atraumatic EYES: PERRL; Conjunctivae clear, sclerae non-icteric ENT: normal nose; no rhinorrhea; moist mucous membranes; pharynx without lesions noted, no uvula edema or deviation, no tonsillar hypertrophy, phonation normal NECK: Supple without meningismus; non-tender; no cervical lymphadenopathy, no masses CARD: RRR; no murmurs, no clicks, no rubs, no gallops RESP: Normal chest excursion without splinting or tachypnea; breath sounds noted to have slight expiratory wheezing on the right wheezes, no rhonchi, no rales ABD/GI: Normal bowel sounds; non-distended; soft, non-tender, no rebound, no guarding; no palpable organomegaly or masses. BACK: The back appears normal EXT: Normal ROM in all joints; no cyanosis, no effusions, no edema SKIN: Normal color for age and race; warm; dry; good turgor; no acute lesions noted NEURO: Moves all extremities equally; Motor and sensory function intact PSYCH: The patient's mood and manner are appropriate. Grooming and personal hygiene are appropriate. MDM: 34-year-old male well-known to the emergency department with homelessness presenting for epigastric burning sensation after drinking a Mountain Dew too quickly. Symptoms are resolving at this time he has no reproducible abdominal pain no shortness of breath will discharge to follow-up with health department - REPRODUCTIVE Reproductive: DENIES: : Past Medical History - Social History Smoking Status: Never Smoker Family History: Reviewed & Not Pertinent Patient has suicidal ideation: No Patient has homicidal ideation: No Pulmonary Medical History: Reports: Hx Asthma, Hx Bronchitis GI Medical History: Reports: Hx Irritable Bowel - constipation Musculoskeletal Medical History: Reports Hx Arthritis, Reports Hx Musculoskeletal Trauma Psychiatric Medical History: Reports: Hx Anxiety, Hx Bipolar Disorder, Hx Depression, Hx Personality Disorder, Hx Schizoaffective Disorder, Hx Schizophrenia Traumatic Medical History: Reports: Hx Fractures - Finger fracture Past Surgical History: Reports: Hx Abdominal Surgery, Hx Appendectomy, Hx Cholecystectomy, Hx Orthopedic Surgery - Immunizations Immunizations up to date: Yes Hx Diphtheria, Pertussis, Tetanus Vaccination: Yes - 2012 Hx Pneumococcal Vaccination: 08/23/00 Vertical Provider Document - INFECTION CONTROL TRAVEL OUTSIDE OF THE [place] IN LAST 30 DAYS: No Course - Vital Signs Vital signs: Temp Pulse Resp BP Pulse Ox 98.0 F 83 16 118/69 94 09/26/19 18:55 09/26/19 18:55 09/26/19 18:55 09/26/19 18:55 09/26/19 18:55 Discharge - Discharge Clinical Impression: Gastritis Condition: Stable Disposition: HOME, SELF-CARE Additional Instructions: Make sure that you drink carbonated drinks slowly, follow-up with a primary care provider for reevaluation of symptoms Referrals: GIANCARLO CHANCE MD [Primary Care Provider] - Follow up as needed
== END 2019-09-26 19:23 | disposition home or self-care (01) ==
LOC: ER 18:00
DX: K29.70 Gastritis, unspecified, without bleeding (principal); J45.909 Unspecified asthma, uncomplicated
CPT/HCPCS: 99283

== ENCOUNTER 2019-09-28 18:52 | Emergency (ER) | payer MEDICAID ==
[2019-09-28 19:14] VITALS: BP 123/76
--- NOTE | 2019-09-28 22:07 | ER Document Report ---
HPI - HPI Time Seen by Provider: 09/28/19 21:56 Context: Patient is a 34-year-old male that comes emergency department for chief complaint of pain along his left neck and shoulder. He states he is next of his carry bag too quickly, felt a pull, it has been sore and hurting him since that time, this happened earlier today. He denies numbness, weakness, headache, or any other complaints. Patient denies any daily medications. Past medical history of asthma and schizophrenia. - REPRODUCTIVE Reproductive: DENIES: : Past Medical History - General Information source: Patient - Social History Smoking Status: Never Smoker Frequency of alcohol use: None Drug Abuse: None Lives with: Alone Family History: Reviewed & Not Pertinent Pulmonary Medical History: Reports: Hx Asthma, Hx Bronchitis GI Medical History: Reports: Hx Irritable Bowel - constipation Musculoskeletal Medical History: Reports Hx Arthritis, Reports Hx Musculoskeletal Trauma Psychiatric Medical History: Reports: Hx Anxiety, Hx Bipolar Disorder, Hx Depression, Hx Personality Disorder, Hx Schizoaffective Disorder, Hx Schizophrenia Traumatic Medical History: Reports: Hx Fractures - Finger fracture Past Surgical History: Reports: Hx Abdominal Surgery, Hx Appendectomy, Hx Cholecystectomy, Hx Orthopedic Surgery - Immunizations Immunizations up to date: Yes Hx Diphtheria, Pertussis, Tetanus Vaccination: Yes - 2012 Hx Pneumococcal Vaccination: 08/23/00 Vertical Provider Document - CONSTITUTIONAL General Appearance: WD/WN, No Apparent Distress - INFECTION CONTROL TRAVEL OUTSIDE OF THE [place] IN LAST 30 DAYS: No - HEENT HEENT: Atraumatic, Normal ENT Exam, Normocephalic - NECK Neck: Normal Inspection - RESPIRATORY Respiratory: Breath Sounds Normal, No Respiratory Distress - CARDIOVASCULAR Cardiovascular: Regular Rate, Regular Rhythm - GI/ABDOMEN Gastrointestinal: Abdomen Soft, Abdomen Non-Tender. negative: Abdomen Tender - BACK Back: negative: Normal Inspection - Patient has some tenderness with lateral range of motion of the neck but he has full range of motion. Normal flexion and extension. No midline tenderness of the back/spine. There is tenderness over the left trapezius muscle and mildly of the left paracervical musculature. Full range of motion of the left arm still intact. Normal distal neurovascular exam. No saddle anesthesia. - MUSCULOSKELETAL/EXTREMETIES Musculoskeletal/Extremeties: MAEW, FROM, Non-Tender - NEURO Level of Consciousness: Awake, Alert, Appropriate Motor/Sensory: No Motor Deficit, No Sensory Deficit - DERM Integumentary: Warm, Dry, No Rash Course - Re-evaluation Re-evalutation: Patient has what appears to be strain of the left trapezius and paracervical musculature. No concerning back findings, no neurovascular deficits, patient is smiling, well-appearing, appears to be in no distress. Vital signs unremarkable. Discussed care, I offered him muscle relaxers, Toradol, patient declined all of these and accepted only a heat pack. Patient states gratefulness for care. Stable at time of discharge. - Vital Signs Vital signs: Temp Pulse Resp BP Pulse Ox 99.2 F 82 18 123/76 95 09/28/19 19:12 09/28/19 19:12 09/28/19 19:12 09/28/19 19:12 09/28/19 19:12 Discharge - Discharge Clinical Impression: Neck pain Left shoulder pain Qualifiers: Chronicity: acute Qualified Code(s): M25.512 - Pain in left shoulder Condition: Stable Disposition: HOME, SELF-CARE Additional Instructions: Your evaluation indicates a muscle strain in the trapezius and paracervical muscles (muscles in your neck). You will probably have worsening soreness over the next couple of days. [id number] anti-inflammatories, heat, and time should help this go away. Follow-up with primary care. Come back for any concerning symptoms including numbness, severe headache, or any other concerning or worsening symptoms. Referrals: GIANCARLO CHANCE MD [Primary Care Provider] - Follow up as needed
== END 2019-09-28 22:07 | disposition home or self-care (01) ==
LOC: ER 18:52
DX: M54.2 Cervicalgia (principal); M25.512 Pain in left shoulder; X50.0XXA Overexertion from strenuous movement or load, initial encounter; J45.909 Unspecified asthma, uncomplicated
CPT/HCPCS: 99283

== ENCOUNTER 2019-09-28 22:19 | Emergency (ER) | payer MEDICAID ==
[2019-09-28 22:32] VITALS: BP 145/93
--- NOTE | 2019-09-28 23:28 | ER Document Report ---
HPI - HPI Time Seen by Provider: 09/28/19 23:18 Pain Level: Denies Context: Patient is a 34-year-old male who presents emergency department with a chief complaint of neck and shoulder pain. Patient reports earlier today he was lifting his heavy bag when she felt a pull to his left neck and left shoulder. Patient reports he was seen here earlier and diagnosed with a cervical strain. Patient denies any change in his symptoms but wanted to get checked out again to make sure everything was okay. Patient also complains of a right ankle injury. Patient reports he was diagnosed with a right ankle sprain couple weeks ago. Patient reports he lost his ludwig wrap. - REPRODUCTIVE Reproductive: DENIES: : Past Medical History - General Information source: Patient - Social History Smoking Status: Never Smoker Lives with: Homeless Family History: Reviewed & Not Pertinent Patient has suicidal ideation: No Patient has homicidal ideation: No - Past Medical History Cardiac Medical History: Reports: None Pulmonary Medical History: Reports: Hx Asthma, Hx Bronchitis EENT Medical History: Reports: None Neurological Medical History: Reports: None Endocrine Medical History: Reports: None Renal/ Medical History: Reports: None Malignancy Medical History: Reports None GI Medical History: Reports: Hx Irritable Bowel - constipation Musculoskeletal Medical History: Reports Hx Arthritis, Reports Hx Musculoskeletal Trauma Skin Medical History: Reports None Psychiatric Medical History: Reports: Hx Anxiety, Hx Bipolar Disorder, Hx D epression, Hx Personality Disorder, Hx Schizoaffective Disorder, Hx Schizophrenia Traumatic Medical History: Reports: Hx Fractures - Finger fracture Infectious Medical History: Reports: None Past Surgical History: Reports: Hx Abdominal Surgery, Hx Appendectomy, Hx Cholecystectomy, Hx Orthopedic Surgery - Immunizations Immunizations up to date: Yes Hx Diphtheria, Pertussis, Tetanus Vaccination: Yes - 2012 Hx Pneumococcal Vaccination: 08/23/00 Vertical Provider Document - CONSTITUTIONAL Agree With Documented VS: Yes Exam Limitations: No Limitations General Appearance: No Apparent Distress - INFECTION CONTROL TRAVEL OUTSIDE OF THE [place] IN LAST 30 DAYS: No - HEENT HEENT: Atraumatic, Normal ENT Exam, Normocephalic, PERRLA - NECK Neck: Normal Inspection Notes: Patient has paraspinal tenderness to the cervical spine as well as left trapezius muscle tenderness with palpation. - RESPIRATORY Respiratory: Breath Sounds Normal, No Respiratory Distress - CARDIOVASCULAR Cardiovascular: Regular Rate, Regular Rhythm - GI/ABDOMEN Gastrointestinal: Abdomen Soft, Abdomen Non-Tender, Normal Bowel Sounds - MUSCULOSKELETAL/EXTREMETIES Musculoskeletal/Extremeties: FROM - NEURO Level of Consciousness: Awake, Alert, Appropriate - DERM Integumentary: Warm, Dry, No Rash Course - Re-evaluation Re-evalutation: 09/28/19 23:29 Provide patient with a Ludwig wrap to the right ankle. Patient's right foot exam benign. There is no point tenderness to the lateral medial malleolus. There is no edema, erythema. Patient able to ambulate. I do not believe an x-ray is necessary at this time. - Vital Signs Vital signs: Temp Pulse Resp BP Pulse Ox 98.0 F 79 18 145/93 H 100 09/28/19 22:24 09/28/19 22:24 09/28/19 22:24 09/28/19 22:24 09/28/19 22:24 Discharge - Discharge Clinical Impression: Neck pain Left shoulder pain Qualifiers: Chronicity: acute Qualified Code(s): M25.512 - Pain in left shoulder Right ankle pain Qualifiers: Chronicity: acute Qualified Code(s): M25.571 - Pain in right ankle and joints of right foot Condition: Stable Disposition: HOME, SELF-CARE Additional Instructions: They were seen emergency department for neck pain and left shoulder pain. You were just seen here about 1 hour prior to arrival and diagnosed with a muscle strain. Continue to have symptoms that are consistent with this. Please take Tylenol and ibuprofen as needed for pain. Please return the emergency department if he develop any new worsening symptoms such as numbness or tingling down the arm. NECK INJURY (CERVICAL STRAIN): You have a neck strain. This is an injury to the muscles and ligaments in the neck. There is no evidence of a fracture of the neck bones. Also, no injury to the spinal cord or nerve roots was detected. Usually, stiffness and pain INCREASE for the first 24-48 hours after the injury. The pain will gradually resolve and the neck will become more mobile. Most patients are back at work or school within a few days. Typically, complete healing takes about two or three weeks. The usual initial treatment is rest and cold packs. A neck collar may be placed to keep the muscles of the neck at rest. Antiinflammatory and muscle relaxing medication are often used to reduce the spasm and irritation. You should call the doctor, or go to the hospital, if you develop numbness or weakness in any extremity, problems with your bladder or bowel, or pain radiating down the arms. MUSCLE STRAIN: You have strained a muscle -- torn the fibers within the muscle. This often occurs with strenuous exertion, or during an injury that suddenly stretches the muscle. The seriousness of a strain varies. Some strains heal within days, others cause problems for months. X-rays cannot show a muscle strain. X-rays are taken only if symptoms suggest that a fracture could be present. The usual treatment of a muscle strain is rest and ice packs. Sometimes, a sling, splint, or crutches may be necessary to rest the muscle. The muscle can be used again once pain subsides. Severe strains require a special exercise and stretching program to prevent permanent stiffness and disability. Your doctor will advise you if this will be necessary. Call the doctor immediately if pain or swelling becomes severe, or if numbness or discoloration develop. Referrals: GIANCARLO CHANCE MD [Primary Care Provider] - Follow up as needed
== END 2019-09-28 23:37 | disposition home or self-care (01) ==
LOC: ER 22:19
DX: M54.2 Cervicalgia (principal); M25.512 Pain in left shoulder; X50.0XXA Overexertion from strenuous movement or load, initial encounter; J45.909 Unspecified asthma, uncomplicated; M25.571 Pain in right ankle and joints of right foot; Z59.0 Homelessness
CPT/HCPCS: 99283

== ENCOUNTER 2019-10-01 08:14 | Emergency (ER) | payer MEDICAID ==
[2019-10-01 08:34] VITALS: BP 124/76
--- NOTE | 2019-10-01 08:39 | ER Document Report ---
ED General - General Stated Complaint: EAR PAIN Time Seen by Provider: 10/01/19 08:30 Primary Care Provider: GIANCARLO CHANCE MD [Primary Care Provider] - Follow up as needed TRAVEL OUTSIDE OF THE [place] IN LAST 30 DAYS: No - HPI Notes: Patient is a 34-year-old male who presents to the emergency department for evaluation. He is a difficult historian. The patient comes in stating that he has swelling in his left ear, is using eardrops, but is concerned because they keep "coming out." He states he just wanted to make sure he was using the right eardrops, as they were prescribed him in the past, and that it would help him with this problem. He denies any fevers or chills. No other discharge from the ear besides the drops. He states he is hearing without difficulty. No recent nasal discharge. He admits to using soap and water to clean out the inside of his ear. - Related Data Allergies/Adverse Reactions: No Known Allergies Allergy (Verified 09/28/19 22:46) Past Medical History - General Information source: Patient - Social History Smoking Status: Unknown if Ever Smoked Family History: Reviewed & Not Pertinent Patient has suicidal ideation: No Patient has homicidal ideation: No Pulmonary Medical History: Reports: Hx Asthma, Hx Bronchitis GI Medical History: Reports: Hx Irritable Bowel - constipation Musculoskeletal Medical History: Reports Hx Arthritis, Reports Hx Musculoskeletal Trauma Psychiatric Medical History: Reports: Hx Anxiety, Hx Bipolar Disorder, Hx Depression, Hx Personality Disorder, Hx Schizoaffective Disorder, Hx Schizophrenia Traumatic Medical History: Reports: Hx Fractures - Finger fracture Past Surgical History: Reports: Hx Abdominal Surgery, Hx Appendectomy, Hx Cholecystectomy, Hx Orthopedic Surgery - Immunizations Immunizations up to date: Yes Hx Diphtheria, Pertussis, Tetanus Vaccination: Yes - 2012 Hx Pneumococcal Vaccination: 08/23/00 Review of Systems - Review of Systems Constitutional: No symptoms reported EENT: See HPI Cardiovascular: No symptoms reported Respiratory: No symptoms reported Gastrointestinal: No symptoms reported Musculoskeletal: No symptoms reported Skin: No symptoms reported Neurological/Psychological: No symptoms reported Physical Exam - Vital signs Vitals: Pulse Resp BP Pulse Ox 74 18 85/70 L 95 10/01/19 08:19 10/01/19 08:19 10/01/19 08:19 10/01/19 08:19 - Notes Notes: Is a pleasant 34-year-old male who appears his stated age in no acute distress. Heart is regular rate and rhythm, lungs are clear to auscultation bilaterally. The remainder physical exam is limited the ER chief complaint. Pupils are good round, reactive to light, no scleral icterus or erythema. Right TM is pearly salmon with good light reflex, normal external auditory canal. Left external auditory canal reveals edema and erythema, particularly over the inferior aspect of the canal, but it is patent, no discharge. TMs pearly salmon with good reflex. Course - Re-evaluation Re-evalutation: 10/01/19 08:44 Patient presents to the emergency department for evaluation. He actually has Ciprodex eardrops already, states that he was given those in the past. I told him that they would be appropriate to be used in his left ear for his otitis. He was amenable to this plan. He is to follow-up with his primary care provider this week, return to the ED with worsening or new concerning symptoms of any sort. - Vital Signs Vital signs: Temp Pulse Resp BP Pulse Ox 98.1 F 88 16 124/76 96 10/01/19 08:34 10/01/19 08:34 10/01/19 08:34 10/01/19 08:34 10/01/19 08:34 Discharge - Discharge Clinical Impression: Otitis externa, left Condition: Stable Disposition: HOME, SELF-CARE Instructions: Use of Ear Drops ([facility]), Otitis Externa ([facility]) Additional Instructions: Continue your antibiotic eardrops as previously instructed for 1 week. Follow- up with your primary care doctor this week. Return to the emergency department with worsening or concerning symptoms of any sort. Referrals: GIANCARLO CHANCE MD [Primary Care Provider] - Follow up as needed
== END 2019-10-01 08:37 | disposition home or self-care (01) ==
LOC: ER 08:14
DX: H60.92 Unspecified otitis externa, left ear (principal); J45.909 Unspecified asthma, uncomplicated
CPT/HCPCS: 99282

== ENCOUNTER 2019-10-01 12:25 | Emergency (ER) | payer MEDICAID ==
[2019-10-01 12:42] VITALS: BP 118/79
[2019-10-01] MEDS ORDERED: IPRATROPIUM/ALBUTEROL 0.5-2.5 MG/3 ML AMPUL NEB ONE (13:19)
--- NOTE | 2019-10-01 13:21 | ER Document Report ---
HPI - HPI Time Seen by Provider: 10/01/19 13:07 Pain Level: 2 Notes: 34-year-old male patient presents emergency department chief complaint of shortness of breath. Patient reports he has been using his inhalers although he thinks that he may have a slight wheeze. Patient denies any fevers, nausea, vomiting or diarrhea. Patient reports recently diagnosed with an otitis externa, patient is worried if he was put on the right eardrops. - REPRODUCTIVE Reproductive: DENIES: : Past Medical History - General Information source: Patient - Social History Smoking Status: Never Smoker Family History: Reviewed & Not Pertinent Patient has suicidal ideation: No Patient has homicidal ideation: No Pulmonary Medical History: Reports: Hx Asthma, Hx Bronchitis GI Medical History: Reports: Hx Irritable Bowel - constipation Musculoskeletal Medical History: Reports Hx Arthritis, Reports Hx Musculoskeletal Trauma Psychiatric Medical History: Reports: Hx Anxiety, Hx Bipolar Disorder, Hx Depression, Hx Personality Disorder, Hx Schizoaffective Disorder, Hx Schizophrenia Traumatic Medical History: Reports: Hx Fractures - Finger fracture Past Surgical History: Reports: Hx Abdominal Surgery, Hx Appendectomy, Hx Cholecystectomy, Hx Orthopedic Surgery - Immunizations Immunizations up to date: Yes Hx Diphtheria, Pertussis, Tetanus Vaccination: Yes - 2012 Hx Pneumococcal Vaccination: 08/23/00 Vertical Provider Document - CONSTITUTIONAL Notes: PHYSICAL EXAMINATION: GENERAL: Well-appearing, well-nourished and in no acute distress. HEAD: Atraumatic, normocephalic. EYES: Pupils equal round extraocular movements intact, conjunctiva are normal. ENT: Nares patent. NECK: Normal range of motion LUNGS: No respiratory distress, faint expiratory wheeze noted to left upper lobe. Musculoskeletal: Normal range of motion NEUROLOGICAL: Normal speech, normal gait. PSYCH: Normal mood, normal affect. SKIN: Warm, Dry, normal turgor, no rashes or lesions noted. - INFECTION CONTROL TRAVEL OUTSIDE OF THE [place] IN LAST 30 DAYS: No Course - Re-evaluation Re-evalutation: Patient appears well, nontoxic, patient appears at his baseline. Patient is concerned that he got his Ciprodex drops into his eye. I assured him that as long as he rinsed out his eye well this should not cause any difficulty. Patient did get 1 DuoNeb breathing treatment here for a very faint wheeze however patient was very worked up and wanted to have the breathing treatment. Patient will be discharged home at this time in stable condition. - Vital Signs Vital signs: Temp Pulse Resp BP Pulse Ox 98.3 F 74 18 118/79 97 10/01/19 12:40 10/01/19 12:40 10/01/19 12:40 10/01/19 12:40 10/01/19 12:40 Discharge - Discharge Clinical Impression: Wheezing Condition: Stable Disposition: HOME, SELF-CARE Additional Instructions: Please continue to take all medications as prescribed. Referrals: GIANCARLO CHANCE MD [Primary Care Provider] - Follow up as needed
== END 2019-10-01 13:52 | disposition home or self-care (01) ==
LOC: ER 12:25
DX: J45.909 Unspecified asthma, uncomplicated (principal); Z79.899 Other long term (current) drug therapy; H60.90 Unspecified otitis externa, unspecified ear
CPT/HCPCS: 94640; 99284; J7620

== ENCOUNTER 2019-10-01 17:45 | Emergency (ER) | payer MEDICAID ==
[2019-10-01 18:01] VITALS: BP 116/73
--- NOTE | 2019-10-01 18:23 | ER Document Report ---
HPI - HPI Patient complains to provider of: Facial pain Time Seen by Provider: 10/01/19 18:11 Onset: This morning Onset/Duration: Gradual Quality of pain: Achy Pain Level: 2 Context: Patient states that he putting eardrops in his right ear and he may have had the medicine on his finger. Patient states that he is concerned that he may have touched his eye and got some of the medicine in his eye. Patient states he is concerned about this because his eyebrow hurts. Patient is concerned that if he got something in his right eye it is causing referred pain to the eyebrow area. Patient denies any tearing or drainage from the eye. Patient denies any change in vision. Patient denies any use of contact lenses or glasses. Exacerbated by: Denies Relieved by: Denies Similar symptoms previously: No Recently seen / treated by doctor: Yes - ROS ROS below otherwise negative: Yes Systems Reviewed and Negative: Yes All other systems reviewed and negative - CONSTITUTIONAL Constitutional: DENIES: Fever - EENT Notes: Eyebrow pain - NEURO Neurology: DENIES: Weakness, Vision blurred, Dizzinesss / Vertigo - GASTROINTESTINAL Gastrointestinal: DENIES: Nausea, Patient vomiting - DERM Skin Color: Normal Skin Problems: None Past Medical History - General Information source: Patient - Social History Smoking Status: Never Smoker Frequency of alcohol use: None Drug Abuse: None Family History: Reviewed & Not Pertinent Patient has suicidal ideation: No Patient has homicidal ideation: No Pulmonary Medical History: Reports: Hx Asthma, Hx Bronchitis GI Medical History: Reports: Hx Irritable Bowel - constipation Musculoskeletal Medical History: Reports Hx Arthritis, Reports Hx Musc uloskeletal Trauma Psychiatric Medical History: Reports: Hx Anxiety, Hx Bipolar Disorder, Hx Depression, Hx Personality Disorder, Hx Schizoaffective Disorder, Hx Schizophrenia Traumatic Medical History: Reports: Hx Fractures - Finger fracture Past Surgical History: Reports: Hx Abdominal Surgery, Hx Appendectomy, Hx Cholecystectomy, Hx Orthopedic Surgery - Immunizations Immunizations up to date: Yes Hx Diphtheria, Pertussis, Tetanus Vaccination: Yes - 2012 Hx Pneumococcal Vaccination: 08/23/00 Vertical Provider Document - CONSTITUTIONAL Agree With Documented VS: Yes Exam Limitations: No Limitations General Appearance: WD/WN, No Apparent Distress - INFECTION CONTROL TRAVEL OUTSIDE OF THE [place] IN LAST 30 DAYS: No - HEENT HEENT: Atraumatic, Normocephalic Notes: Extraocular movements intact, sclera clear, no tearing. No orbital or preseptal swelling or erythema - NECK Neck: Normal Inspection - RESPIRATORY Respiratory: No Respiratory Distress - MUSCULOSKELETAL/EXTREMETIES Musculoskeletal/Extremeties: MAEW - NEURO Level of Consciousness: Awake, Alert, Appropriate Motor/Sensory: No Motor Deficit - DERM Integumentary: Warm, Dry, No Rash Course - Re-evaluation Re-evalutation: 10/01/19 18:30 Patient with anxiety about possible referred nerve pain to the eyebrow. Patient with normal physical exam. Attempted to reassure patient that he does not have symptoms worrisome for stroke. Discussed with patient history of mental illness and lack of treatment for these underlying medical conditions. Patient states that he is not anxious he is just concerned about possible life-threatening problem. Patient reassured that at this time he does not appear to have any life-threatening condition that would warrant additional testing. Patient encouraged to follow-up with his primary doctor tomorrow for repeat examination. 10/01/19 18:31 Offered patient Tylenol or ibuprofen for his eyebrow pain symptoms, patient declines preferring an ice pack only. - Vital Signs Vital signs: Temp Pulse Resp BP Pulse Ox 98.1 F 89 18 116/73 100 10/01/19 17:55 10/01/19 17:55 10/01/19 17:55 10/01/19 17:55 10/01/19 17:55 Discharge - Discharge Clinical Impression: Facial pain Condition: Stable Disposition: HOME, SELF-CARE Instructions: Acetaminophen, Use of Isch-Gow-Yqceamg Ibuprofen ([facility]), Ice Packs ([facility]) Additional Instructions: Return immediately for any new or worsening symptoms Followup with your primary care provider, call tomorrow to make a followup appointment Referrals: GIANCARLO CHANCE MD [Primary Care Provider] - Follow up as needed
== END 2019-10-01 18:27 | disposition home or self-care (01) ==
LOC: ER 17:45
DX: R51 Headache (principal); J45.909 Unspecified asthma, uncomplicated
CPT/HCPCS: 99283

== ENCOUNTER 2019-10-01 20:25 | Emergency (ER) | payer MEDICAID ==
--- NOTE | 2019-10-01 21:57 | ER Document Report ---
HPI - HPI Patient complains to provider of: Pain with deep breath Time Seen by Provider: 10/01/19 21:47 Onset: Just prior to arrival Onset/Duration: Sudden Context: 34-year-old male male with history of asthma and mental health issues presents for the fourth time today with reports that it hurts when he takes a deep breath. Reports it started prior to arrival when he was riding his bike. Denies trauma. Denies fever vomiting diarrhea. He is extremely worried that he has pneumonia. Respiratory rate even unlabored no distress. Associated Symptoms: None Exacerbated by: Deep breathing Relieved by: Denies Similar symptoms previously: No Recently seen / treated by doctor: No - REPRODUCTIVE Reproductive: DENIES: : Past Medical History - General Information source: Patient - Social History Smoking Status: Unknown if Ever Smoked Frequency of alcohol use: None Drug Abuse: None Lives with: Homeless Family History: Reviewed & Not Pertinent Patient has suicidal ideation: No Patient has homicidal ideation: No Pulmonary Medical History: Reports: Hx Asthma, Hx Bronchitis GI Medical History: Reports: Hx Irritable Bowel - constipation Musculoskeletal Medical History: Reports Hx Arthritis, Reports Hx Musculoskeletal Trauma Psychiatric Medical History: Reports: Hx Anxiety, Hx Bipolar Disorder, Hx Depression, Hx Personality Disorder, Hx Schizoaffective Disorder, Hx Schizophrenia Traumatic Medical History: Reports: Hx Fractures - Finger fracture Past Surgical History: Reports: Hx Abdominal Surgery, Hx Appendectomy, Hx Cholecystectomy, Hx Orthopedic Surgery - Immunizations Immunizations up to date: Yes Hx Diphtheria, Pertussis, Tetanus Vaccination: Yes - 2012 Hx Pneumococcal Vaccination: 08/23/00 Vertical Provider Document - CONSTITUTIONAL Agree With Documented VS: Yes Exam Limitations: No Limitations General Appearance: WD/WN, No Apparent Distress - INFECTION CONTROL TRAVEL OUTSIDE OF THE [place] IN LAST 30 DAYS: No - HEENT HEENT: Atraumatic, Normocephalic. negative: Conjuctival Injection - NECK Neck: Normal Inspection, Supple. negative: Lymphadenopathy-Left, Lymphadenopathy-Right - RESPIRATORY Respiratory: Breath Sounds Normal, No Respiratory Distress. negative: Rales, Rhonchi, Wheezing - CARDIOVASCULAR Cardiovascular: Regular Rate, Regular Rhythm - MUSCULOSKELETAL/EXTREMETIES Musculoskeletal/Extremeties: RIGO MCBRIDE - NEURO Level of Consciousness: Awake, Alert, Appropriate Motor/Sensory: No Motor Deficit - DERM Integumentary: Warm, Dry Course - Re-evaluation Re-evalutation: 10/01/19 23:15 Chest x-ray negative for pneumonia. Patient is sleeping in the waiting room in no apparent distress. Chest X-Ray 10/01/19 21:51 IMPRESSION: Overinflated lungs may be related to asthma or reactive airway disease; otherwise, no active cardiopulmonary lesions. - Diagnostic Test Radiology reviewed: Image reviewed, Reports reviewed Discharge - Discharge Clinical Impression: Chest pain with deep breath Condition: Stable Disposition: HOME, SELF-CARE Additional Instructions: *You have been evaluated for pain with deep breath *Your chest x-ray was negative for pneumonia *Monitor your temperature, take Tylenol as indicated *Follow up with a primary care provider within 1 week for recheck *Return to ED for cough, worsening condition, changes, needs Referrals: GIANCARLO CHANCE MD [Primary Care Provider] - Follow up in 3-5 days
--- NOTE | 2019-10-01 22:30 | RADIOLOGY REPORT (SQ) ---
EXAM DESCRIPTION: PA AND LATERAL CHEST X-RAYS CLINICAL HISTORY: 34 years Male pain with deep breath COMPARISON: None TECHNIQUE: PA and lateral chest x-rays at 2207 hours on 10/01/2019. FINDINGS: The lungs are overinflated and clear. The costophrenic sulci are sharp. The heart is normal in size with normal pulmonary vascularity. No acute bony abnormalities are seen. IMPRESSION: Overinflated lungs may be related to asthma or reactive airway disease; otherwise, no active cardiopulmonary lesions.
== END 2019-10-01 23:01 | disposition home or self-care (01) ==
LOC: ER 20:25
DX: R07.1 Chest pain on breathing (principal); J45.909 Unspecified asthma, uncomplicated
CPT/HCPCS: 71046; 99284

== ENCOUNTER 2019-10-03 18:32 | Emergency (ER) | payer MEDICAID ==
[2019-10-03] MEDS ORDERED: ONDANSETRON 4 MG TAB.RAPDIS PO ONE (20:18)
--- NOTE | 2019-10-03 20:20 | ER Document Report ---
ED Medical Screen (RME) - General Chief Complaint: Cold Symptoms Stated Complaint: COLD Time Seen by Provider: 10/03/19 20:11 Primary Care Provider: GIANCARLO CHANCE MD [Primary Care Provider] - Follow up as needed Mode of Arrival: Ambulatory Information source: Patient Notes: Patient presents stating that he does not feel well. Patient states he has had cough congestion chills and nausea. Patient complains of abdominal pain as well. No vomiting or diarrhea. I have greeted and performed a rapid initial assessment of this patient. A comprehensive ED assessment and evaluation of the patient, analysis of test results and completion of the medical decision making process will be conducted by additional ED providers. TRAVEL OUTSIDE OF THE [place] IN LAST 30 DAYS: No - Related Data Allergies/Adverse Reactions: No Known Allergies Allergy (Verified 10/03/19 20:00) Past Medical History - Social History Chew tobacco use (# tins/day): No Family history: Reviewed & Not Pertinent Pulmonary Medical History: Reports: Hx Asthma, Hx Bronchitis GI Medical History: Reports: Hx Irritable Bowel - constipation Musculoskeltal Medical History: Reports Hx Arthritis, Reports Hx Musculoskeletal Trauma Psychiatric Medical History: Reports: Hx Anxiety, Hx Bipolar Disorder, Hx Depression, Hx Personality Disorder, Hx Schizoaffective Disorder, Hx Schizophrenia Traumatic Medical History: Reports: Hx Fractures - Finger fracture Past Surgical History: Reports: Hx Abdominal Surgery, Hx Appendectomy, Hx Cholecystectomy, Hx Orthopedic Surgery - Immunizations Immunizations up to date: Yes Hx Diphtheria, Pertussis, Tetanus Vaccination: Yes - 2012 Physical Exam - Vital signs Vitals: Temp Pulse Resp BP Pulse Ox 98.5 F 89 18 101/66 95 10/03/19 18:42 10/03/19 18:42 10/03/19 18:42 10/03/19 18:42 10/03/19 18:42 - Respiratory Respiratory status: No respiratory distress Breath sounds: Normal Course - Vital Signs Vital signs: Temp Pulse Resp BP Pulse Ox 98.1 F 73 18 113/74 96 10/03/19 20:16 10/03/19 20:16 10/03/19 20:16 10/03/19 20:16 10/03/19 20:16 Doctor's Discharge - Discharge Referrals: GIANCARLO CHANCE MD [Primary Care Provider] - Follow up as needed
[2019-10-03 21:16] LABS: ABSOLUTE BASOPHILS # (AUTO) 0.1 10^3/uL (0.0-0.2); ABSOLUTE EOSINOPHILS # (AUTO) 0.7 10^3/uL (0.0-0.6); ABSOLUTE LYMPHOCYTES (AUTO) 1.3 10^3/uL (0.5-4.7); ABSOLUTE MONOCYTES (AUTO) 0.4 10^3/uL (0.1-1.4); ABSOLUTE NEUT (AUTO) 3.3 10^3/uL (1.7-8.2); BASOPHILS % (AUTO) 0.9 % (0-2); EOSINOPHILS % (AUTO) 12.7 % (0-6); HEMATOCRIT 42.3 % (37.9-51.0); HEMOGLOBIN 14.2 g/dL (13.5-17.0); LYMPHOCYTES % (AUTO) 21.9 % (13-45); MEAN CORPUSCULAR HEMOGLOBIN 26.7 pg (27.0-33.4); MEAN CORPUSCULAR HGB CONC 33.6 g/dL (32.0-36.0); MEAN CORPUSCULAR VOLUME 80 fl (80-97); MONOCYTES % (AUTO) 7.1 % (3-13); PLATELET COUNT 214 10^3/uL (150-450); RED BLOOD COUNT 5.31 10^6/uL (4.35-5.55); RED CELL DISTRIBUTION WIDTH 14.2 % (11.5-14.0); SEGMENTED NEUTROPHILS % (AUTO) 57.4 % (42-78); TOTAL CELLS COUNTED % (AUTO) 100 %; WHITE BLOOD COUNT 5.7 10^3/uL (4.0-10.5)
[2019-10-03 21:36] LABS: ALBUMIN 4.2 g/dL (3.5-5.0); ALKALINE PHOSPHATASE 82 U/L (38-126); ANION GAP 9 (5-19); ASPARTATE AMINO TRANSFERASE 26 U/L (17-59); BILIRUBIN,DIRECT 0.1 mg/dL (0.0-0.4); BILIRUBIN,TOTAL 1.2 mg/dL (0.2-1.3); BLOOD UREA NITROGEN 18 mg/dL (7-20); CALCIUM 8.9 mg/dL (8.4-10.2); CARBON DIOXIDE 29 mmol/L (22-30); CHLORIDE 99 mmol/L (98-107); GLUCOSE 95 mg/dL (75-110); POTASSIUM 4.2 mmol/L (3.6-5.0); TOTAL PROTEIN 7.3 g/dL (6.3-8.2)
[2019-10-04 01:50] VITALS: BP 116/72
--- NOTE | 2019-10-04 02:24 | ER Document Report ---
HPI - HPI Time Seen by Provider: 10/03/19 20:11 Pain Level: 2 Notes: Patient presents stating that he does not feel well. Patient states he has had cough congestion chills and nausea. Patient complains of abdominal pain as well. No vomiting or diarrhea. - CONSTITUTIONAL Constitutional: DENIES: Fever, Chills - REPRODUCTIVE Reproductive: DENIES: : Past Medical History - General Information source: Patient - Social History Smoking Status: Never Smoker Chew tobacco use (# tins/day): No Family History: Reviewed & Not Pertinent Patient has suicidal ideation: No Patient has homicidal ideation: No Pulmonary Medical History: Reports: Hx Asthma, Hx Bronchitis GI Medical History: Reports: Hx Irritable Bowel - constipation Musculoskeletal Medical History: Reports Hx Arthritis, Reports Hx Musculoskele giovanna Trauma Psychiatric Medical History: Reports: Hx Anxiety, Hx Bipolar Disorder, Hx Depression, Hx Personality Disorder, Hx Schizoaffective Disorder, Hx Schizophrenia Traumatic Medical History: Reports: Hx Fractures - Finger fracture Past Surgical History: Reports: Hx Abdominal Surgery, Hx Appendectomy, Hx Cholecystectomy, Hx Orthopedic Surgery - Immunizations Immunizations up to date: Yes Hx Diphtheria, Pertussis, Tetanus Vaccination: Yes - 2012 Hx Pneumococcal Vaccination: 08/23/00 Vertical Provider Document - CONSTITUTIONAL Notes: PHYSICAL EXAMINATION: GENERAL: Well-appearing, well-nourished and in no acute distress. HEAD: Atraumatic, normocephalic. EYES: Pupils equal round and reactive to light, extraocular movements intact, sclera anicteric, conjunctiva are normal. ENT: Nares patent, oropharynx clear without exudates. Moist mucous membranes. NECK: Normal range of motion, supple without lymphadenopathy LUNGS: Breath sounds clear to auscultation bilaterally and equal. No wheezes rales or rhonchi. HEART: Regular rate and rhythm without murmurs ABDOMEN: Soft, nontender, nondistended abdomen. No guarding, no rebound. No masses appreciated. Musculoskeletal: Normal range of motion, no pitting or edema. No cyanosis. NEUROLOGICAL: Cranial nerves grossly intact. Normal speech, normal gait. Normal sensory, motor exams PSYCH: Normal mood, normal affect. SKIN: Warm, Dry, normal turgor, no rashes or lesions noted. - INFECTION CONTROL TRAVEL OUTSIDE OF THE [place] IN LAST 30 DAYS: No Course - Re-evaluation Re-evalutation: Patient appears well, nontoxic, vital signs reviewed and are within normal limits. Physical exam unremarkable. Patient has been here multiple times in the last few days with vague complaints. Patient be discharged home at this time. Patient agreeable to discharge. - Vital Signs Vital signs: Temp Pulse Resp BP Pulse Ox 97.8 F 71 16 116/72 99 10/04/19 01:49 10/04/19 01:49 10/04/19 01:49 10/04/19 01:49 10/04/19 01:49 - Laboratory Result Diagrams: 10/03/19 20:41 10/03/19 20:41 Laboratory results interpreted by me: 10/03/19 10/03/19 20:41 20:41 MCH 26.7 L RDW 14.2 H Eos % (Auto) 12.7 H Absolute Eos (auto) 0.7 H Sodium 136.7 L Discharge - Discharge Clinical Impression: Nausea Condition: Stable Disposition: HOME, SELF-CARE Additional Instructions: Your lab work today was unremarkable. Please drink plenty of fluids. Please continue all home medications. Referrals: GIANCARLO CHANCE MD [Primary Care Provider] - Follow up as needed
== END 2019-10-04 02:30 | disposition home or self-care (01) ==
LOC: ER 18:32
DX: R11.0 Nausea (principal); R05 Cough; R10.9 Unspecified abdominal pain; J45.909 Unspecified asthma, uncomplicated; Z90.49 Acquired absence of other specified parts of digestive tract
CPT/HCPCS: 99283; 36415; 83690; 85025; 80053; S0119

== ENCOUNTER 2019-10-04 13:26 | Emergency (ER) | payer MEDICAID ==
[2019-10-04 14:10] VITALS: BP 123/71
--- NOTE | 2019-10-04 15:00 | ER Document Report ---
HPI - HPI Patient complains to provider of: Cold symptoms Time Seen by Provider: 10/04/19 14:55 Pain Level: 1 Context: 34-year-old male with history of asthma presents emergency department with complaints of cold symptoms. No complaints such as fever vomiting diarrhea cough. Patient looks good nontoxic looking. Respiratory rate even unlabored. Associated Symptoms: None Exacerbated by: Denies Relieved by: Denies Similar symptoms previously: Yes Recently seen / treated by doctor: Yes - CONSTITUTIONAL Constitutional: DENIES: Fever, Chills - CARDIOVASCULAR Cardiovascular: REPORTS: Chest pain - REPRODUCTIVE Reproductive: DENIES: : Past Medical History - General Information source: Patient - Social History Smoking Status: Never Smoker Cigarette use (# per day): No Frequency of alcohol use: None Drug Abuse: None Family History: Reviewed & Not Pertinent Patient has suicidal ideation: No Patient has homicidal ideation: No Pulmonary Medical History: Reports: Hx Asthma, Hx Bronchitis GI Medical History: Reports: Hx Irritable Bowel - constipation Musculoskeletal Medical History: Reports Hx Arthritis, Reports Hx Musculoskeletal Trauma Psychiatric Medical History: Reports: Hx Anxiety, Hx Bipolar Disorder, Hx Depression, Hx Personality Disorder, Hx Schizoaffective Disorder, Hx Schizophrenia Traumatic Medical History: Reports: Hx Fractures - Finger fracture Past Surgical History: Reports: Hx Abdominal Surgery, Hx Appendectomy, Hx Cholecystectomy, Hx Orthopedic Surgery - Immunizations Immunizations up to date: Yes Hx Diphtheria, Pertussis, Tetanus Vaccination: Yes - 2012 Hx Pneumococcal Vaccination: 08/23/00 Vertical Provider Document - CONSTITUTIONAL Agree With Documented VS: Yes Exam Limitations: No Limitations General Appearance: WD/WN, No Apparent Distress - INFECTION CONTROL TRAVEL OUTSIDE OF THE [place] IN LAST 30 DAYS: No - HEENT HEENT: Atraumatic, Normal ENT Exam, Normocephalic. negative: Conjuctival Injection, Pharyngeal Erythema, Tympanic Membrane Bulging - NECK Neck: Normal Inspection, Supple. negative: Lymphadenopathy-Left, Lymphadeno areli-Right - RESPIRATORY Respiratory: Breath Sounds Normal, No Respiratory Distress. negative: Rhonchi, Wheezing - CARDIOVASCULAR Cardiovascular: Regular Rate - GI/ABDOMEN Gastrointestinal: Abdomen Soft, Abdomen Non-Tender - MUSCULOSKELETAL/EXTREMETIES Musculoskeletal/Extremeties: MAEW, FROM - NEURO Level of Consciousness: Awake, Alert, Appropriate Motor/Sensory: No Motor Deficit - DERM Integumentary: Warm, Dry Course - Re-evaluation Re-evalutation: 10/04/19 15:02 Mr. Huddleston is a frequent visitor to the emergency department for cold symptoms cough. Today he complains of cold symptoms. Patient looks good nontoxic no respiratory distress. Respiratory rate even unlabored. No cough noted during entire interview and assessment. He was instructed on the importance of handwashing follow-up with Dr. Chance as indicated. He verbalized understanding to all instructions - Vital Signs Vital signs: Temp Pulse Resp BP Pulse Ox 98.5 F 80 20 123/71 94 10/04/19 14:10/04/19 14:09 10/04/19 14:10/04/19 14:10/04/19 14:56 Discharge - Discharge Clinical Impression: cold symptoms Condition: Stable Disposition: HOME, SELF-CARE Additional Instructions: *You have been evaluated for cold symptoms today *Increase fluid intake *Good handwashing *Monitor your temperature, take Tylenol as indicated *Follow up with Dr. Chance within the next few days. *Return to ED for worsening condition, changes, needs, difficulty breathing Referrals: GIANCARLO CHANCE MD [Primary Care Provider] - Follow up in 3-5 days
== END 2019-10-04 15:01 | disposition home or self-care (01) ==
LOC: ER 13:26
DX: R68.89 Other general symptoms and signs (principal); Z90.49 Acquired absence of other specified parts of digestive tract
CPT/HCPCS: 99283

== ENCOUNTER 2019-10-05 03:06 | Emergency (ER) | payer MEDICAID ==
[2019-10-05 03:20] VITALS: BP 128/90
== END 2019-10-05 06:55 | disposition left against medical advice (07) ==
LOC: ER 03:06
DX: Z53.21 Procedure and treatment not carried out due to patient leaving prior to being seen by health care provider (principal)

== ENCOUNTER 2019-10-06 04:04 | Emergency (ER) | payer MEDICAID | END 2019-10-06 08:05 | disposition left against medical advice (07) | LOC: ER 04:04 | DX: Z53.21 Procedure and treatment not carried out due to patient leaving prior to being seen by health care provider (principal) ==

== ENCOUNTER 2019-10-11 17:46 | Emergency (ER) | payer MEDICAID ==
[2019-10-11 17:56] VITALS: BP 141/90
--- NOTE | 2019-10-11 18:25 | ER Document Report ---
ED Medical Screen (RME) - General Chief Complaint: Abdominal Pain Stated Complaint: ABDOMINAL PAIN Time Seen by Provider: 10/11/19 18:17 Primary Care Provider: GIANCARLO CHANCE MD [Primary Care Provider] - Follow up as needed Mode of Arrival: Ambulatory Information source: Patient Notes: 34-year-old male patient presenting to the emergency department chief complaint of abdominal pain. Patient reports mid abdominal pain that started yesterday. He states 1 episode of vomiting yesterday. Denies any fever or chills. Denies any diarrhea. Exam: Patient alert, oriented, no obvious acute distress noted. I have greeted and performed a rapid initial assessment of this patient. A comprehensive ED assessment and evaluation of the patient, analysis of test re sults and completion of the medical decision making process will be conducted by additional ED providers. I have specifically instructed the patient or family members with the patient to immediately return to any nursing staff should anything change in the patient's condition or with their chief complaint. TRAVEL OUTSIDE OF THE [place] IN LAST 30 DAYS: No - Related Data Allergies/Adverse Reactions: No Known Allergies Allergy (Verified 10/11/19 18:16) Home Medications: inhalers Past Medical History - Social History Chew tobacco use (# tins/day): No Frequency of alcohol use: None Drug Abuse: None Family history: Reviewed & Not Pertinent Pulmonary Medical History: Reports: Hx Asthma, Hx Bronchitis GI Medical History: Reports: Hx Irritable Bowel - constipation Musculoskeltal Medical History: Reports Hx Arthritis, Reports Hx Musculoskeletal Trauma Psychiatric Medical History: Reports: Hx Anxiety, Hx Bipolar Disorder, Hx Depression, Hx Personality Disorder, Hx Schizoaffective Disorder, Hx Schizophrenia Traumatic Medical History: Reports: Hx Fractures - Finger fracture Past Surgical History: Reports: Hx Abdominal Surgery, Hx Appendectomy, Hx Cholecystectomy, Hx Orthopedic Surgery - Immunizations Immunizations up to date: Yes Hx Diphtheria, Pertussis, Tetanus Vaccination: Yes - 2012 Physical Exam - Vital signs Vitals: Temp Pulse Resp BP Pulse Ox 98.3 F 82 16 141/90 H 100 10/11/19 17:55 10/11/19 17:55 10/11/19 17:55 10/11/19 17:55 10/11/19 17:55 Course - Vital Signs Vital signs: Temp Pulse Resp BP Pulse Ox 98.3 F 82 16 141/90 H 100 10/11/19 17:55 10/11/19 17:55 10/11/19 17:55 10/11/19 17:55 10/11/19 17:55 Doctor's Discharge - Discharge Referrals: GIANCARLO CHANCE MD [Primary Care Provider] - Follow up as needed
--- NOTE | 2019-10-11 18:53 | RADIOLOGY REPORT (SQ) ---
EXAM DESCRIPTION: KUB/ABDOMEN (SINGLE VIEW) COMPLETED DATE/TIME: 10/11/2019 6:36 pm REASON FOR STUDY: abd pain COMPARISON: 2018. NUMBER OF VIEWS: One view. TECHNIQUE: Supine radiographic image of the abdomen acquired. LIMITATIONS: None. FINDINGS: BOWEL GAS PATTERN: LARGE AMOUNT OF STOOL THROUGHOUT THE COLON. NONOBSTRUCTIVE PATTERN. CALCIFICATIONS: No suspicious calcifications. SOFT TISSUES: No gross mass or suggestion of organomegaly. HARDWARE: None in the abdomen. BONES: No acute fracture. No worrisome bone lesions. OTHER: No other significant finding. IMPRESSION: NO ACUTE FINDINGS. STOOL RETENTION. TECHNICAL DOCUMENTATION: JOB ID: [id number] 2010 [employer]- All Rights Reserved Reading location - IP/workstation name: [email or web address]
[2019-10-11 19:22] LABS: ABSOLUTE BASOPHILS # (AUTO) 0.1 10^3/uL (0.0-0.2); ABSOLUTE EOSINOPHILS # (AUTO) 0.8 10^3/uL (0.0-0.6); ABSOLUTE LYMPHOCYTES (AUTO) 1.1 10^3/uL (0.5-4.7); ABSOLUTE MONOCYTES (AUTO) 0.3 10^3/uL (0.1-1.4); ABSOLUTE NEUT (AUTO) 1.5 10^3/uL (1.7-8.2); BASOPHILS % (AUTO) 1.8 % (0-2); EOSINOPHILS % (AUTO) 22.4 % (0-6); HEMATOCRIT 43.6 % (37.9-51.0); HEMOGLOBIN 14.4 g/dL (13.5-17.0); LYMPHOCYTES % (AUTO) 28.4 % (13-45); MEAN CORPUSCULAR HEMOGLOBIN 26.6 pg (27.0-33.4); MEAN CORPUSCULAR HGB CONC 33.1 g/dL (32.0-36.0); MEAN CORPUSCULAR VOLUME 80 fl (80-97); PLATELET COUNT 234 10^3/uL (150-450); RED BLOOD COUNT 5.43 10^6/uL (4.35-5.55); RED CELL DISTRIBUTION WIDTH 14.1 % (11.5-14.0); SEGMENTED NEUTROPHILS % (AUTO) 40.4 % (42-78); TOTAL CELLS COUNTED % (AUTO) 100 %; WHITE BLOOD COUNT 3.7 10^3/uL (4.0-10.5)
[2019-10-11 19:31] LABS: APPEARANCE,URINE CLEAR; BILIRUBIN,URINE NEGATIVE (NEGATIVE); COLOR,URINE YELLOW; GLUCOSE, URINE NEGATIVE (NEGATIVE); KETONES,URINE NEGATIVE (NEGATIVE); PROTEIN,URINE NEGATIVE (NEGATIVE); URINE SPECIFIC GRAVITY 1.016; UROBILINOGEN,URINE NEGATIVE mg/dL (<2.0)
[2019-10-11 19:36] LABS: ALKALINE PHOSPHATASE 76 U/L (38-126); ANION GAP 6 (5-19); ASPARTATE AMINO TRANSFERASE 25 U/L (17-59); BILIRUBIN,TOTAL 1.3 mg/dL (0.2-1.3); BLOOD UREA NITROGEN 15 mg/dL (7-20); CALCIUM 9.2 mg/dL (8.4-10.2); CARBON DIOXIDE 29 mmol/L (22-30); CHLORIDE 106 mmol/L (98-107); GLUCOSE 88 mg/dL (75-110); POTASSIUM 4.6 mmol/L (3.6-5.0); TOTAL PROTEIN 6.8 g/dL (6.3-8.2)
[2019-10-11 19:41] LABS: A TYPE INFLUENZA AG NEGATIVE (NEGATIVE); B INFLUENZA AG NEGATIVE (NEGATIVE)
--- NOTE | 2019-10-11 23:07 | ER Document Report ---
Entered by GARCIA PARKER SCRIBE 10/11/19 1782 Acting as scribe for:SARA CHRISTIANSEN MD ED General - General Chief Complaint: Abdominal Pain Stated Complaint: ABDOMINAL PAIN Time Seen by Provider: 10/11/19 18:17 Primary Care Provider: GIANCARLO CHANCE MD [Primary Care Provider] - Follow up as needed Mode of Arrival: Ambulatory Information source: Patient Notes: 34-year-old male presents to the emergency department complaining of abdominal pain that began a couple days ago. Patient reports cough, rhinorrhea and sneezing. Patient stated that his last bowel movement was yesterday. Patient denies chills and fevers. TRAVEL OUTSIDE OF THE [place] IN LAST 30 DAYS: No - Related Data Allergies/Adverse Reactions: No Known Allergies Allergy (Verified 10/11/19 18:16) Home Medications: inhalers Past Medical History - General Information source: Patient - Social History Smoking Status: Never Smoker Cigarette use (# per day): No Chew tobacco use (# tins/day): No Frequency of alcohol use: None Drug Abuse: None Family History: Reviewed & Not Pertinent Patient has suicidal ideation: No Patient has homicidal ideation: No Pulmonary Medical History: Reports: Hx Asthma, Hx Bronchitis GI Medical History: Reports: Hx Irritable Bowel - constipation Musculoskeletal Medical History: Reports Hx Arthritis, Reports Hx Musculoskeletal Trauma Psychiatric Medical History: Reports: Hx Anxiety, Hx Bipolar Disorder, Hx Depression, Hx Personality Disorder, Hx Schizoaffective Disorder, Hx Schizophrenia Traumatic Medical History: Reports: Hx Fractures - Finger fracture Past Surgical History: Reports: Hx Abdominal Surgery, Hx Appendectomy, Hx Cholecystectomy, Hx Orthopedic Surgery - Immunizations Immunizations up to date: Yes Hx Diphtheria, Pertussis, Tetanus Vaccination: Yes - 2012 Hx Pneumococcal Vaccination: 08/23/00 Review of Systems - Review of Systems Constitutional: See HPI. denies: Chills, Fever EENT: See HPI, Nose discharge Cardiovascular: No symptoms reported Respiratory: No symptoms reported Gastrointestinal: See HPI, Abdominal pain Genitourinary: No symptoms reported Male Genitourinary: No symptoms reported Musculoskeletal: No symptoms reported Skin: No symptoms reported Hematologic/Lymphatic: No symptoms reported Neurological/Psychological: No symptoms reported -: Yes All other systems reviewed and negative Physical Exam - Vital signs Vitals: Temp Pulse Resp BP Pulse Ox 98.3 F 82 16 141/90 H 100 10/11/19 17:55 10/11/19 17:55 10/11/19 17:55 10/11/19 17:55 10/11/19 17:55 - Notes Notes: Physical Exam: General: Alert, appears well. HEENT: Normocephalic. Atraumatic. PERRL. Extraocular movements intact. Oropharynx clear. Neck: Supple. Non-tender. Respiratory: No respiratory distress. Clear and equal breath sounds bilaterally. Cardiovascular: Regular rate and rhythm. Abdominal: Normal Inspection. Non-tender. No distension. Normal Bowel Sounds. Back: No gross abnormalities. Extremities: Moves all four extremities. Upper extremities: Normal inspection. Normal ROM. Lower extremities: Normal inspection. No edema. Normal ROM. Neurological: Normal cognition. AAOx4. Normal speech. Psychological: Normal affect. Normal Mood. Skin: Warm. Dry. Normal color. Course - Re-evaluation Re-evalutation: 10/11/19 23:01 Patient in no acute distress resting comfortably. - Vital Signs Vital signs: Temp Pulse Resp BP Pulse Ox 98.3 F 82 16 141/90 H 100 10/11/19 17:55 10/11/19 17:55 10/11/19 17:55 10/11/19 17:55 10/11/19 17:55 - Laboratory Result Diagrams: 10/11/19 18:57 10/11/19 18:57 Laboratory results interpreted by me: 10/11/19 18:57 WBC 3.7 L MCH 26.6 L RDW 14.1 H Eos % (Auto) 22.4 H Absolute Neuts (auto) 1.5 L Absolute Eos (auto) 0.8 H Seg Neutrophils % 40.4 L 10/11/19 23:01 Borderline low white blood cell count otherwise no acute process on laboratories. - Diagnostic Test Radiology reviewed: Image reviewed, Reports reviewed Radiology results interpreted by me: 10/11/19 23:02 KUB x-ray shows colonic stool moderate consistent with constipation. No acute process. Discharge - Discharge Clinical Impression: Constipation, Rhinitis Condition: Stable Disposition: HOME, SELF-CARE Additional Instructions: Nasal Sprays and Drops Decongestant nasal sprays and drops often give dramatic relief from congestion. They are often recommended for patients with sinus infection to assist with sinus drainage. Persons with high blood pressure should consult the doctor before using these nasal sprays. Afrin and Jayesh-Synephrine are common jhst-[id number] preparations. They should not be used for more than three days, as "rebound" congestion can occur -- the congestion flares as the drug wears off. A way of dealing with this rebound congestion problem is to medicate only one nostril each time, allowing the other nostril to recover from the medicine's effects. When you no longer need the drug during the day, spray only one nostril each night. This helps you sleep well without severe rebound congestion. Call the doctor if you develop severe headache, palpitations, or chest pain.Constipation Constipation is a common problem. It is especially likely as you get older. Constipation is a common cause of abdominal pain, but sometimes causes no symptoms at all. Causes of constipation include certain medications, dehydration, diets, inactivity, and low-fiber intake. Rarely, it can be a symptom of underlying disease. The physician has evaluated you for this. Avoid constipation by eating a diet high in fiber, fruits, and vegetables. Drink plenty of liquids. Get regular exercise. If possible, avoid constipating medicines like narcotic pain medication. Some vitamin tablets can cause constipation. Stool softeners may be needed for difficult cases. An excellent stool softener is Konsyl which is available at [employer] [employer] [facility]. Just add a teaspoon to a glass of pineapple or orange juice daily or twice a day if needed. Laxatives are useful for occasional constipation. You should use them only when necessary. Too-frequent use can make your bowels dependent on them. Some over the counter laxatives available without prescription are: Milk of Magnesia, 1-2 tablespoons twice a day Dulcolax, 5 mg pill or 10 mg suppository. Citrate of Magnesia, 4-5 ounces a day for a day or two For acute constipation, Fleet's Enemas and Dulcolax suppositories are helpful. Chronic, buttermaker continuous churn use of laxatives or enemas is not a good idea. Your bowel may become dependant on them. You do not need to have a bowel movement every day. Many people do fine with a bowel movement every three or four days. You should call your doctor or return for re-evaluation if you pass blood in the stool, or if you develop fever or increasing abdominal pain. Prescriptions: Docusate Sodium [Colace 100 mg Capsule] 100 mg PO DAILY #30 capsule Cetirizine HCl [Zyrtec 10 mg Tablet] 10 mg PO DAILY #30 tablet Referrals: GIANCARLO CHANCE MD [Primary Care Provider] - Follow up as needed I personally performed the services described in the documentation, reviewed and edited the documentation which was dictated to the scribe in my presence, and it accurately records my words and actions.
== END 2019-10-11 23:15 | disposition home or self-care (01) ==
LOC: ER 17:46
DX: K59.00 Constipation, unspecified (principal); J31.0 Chronic rhinitis; R10.9 Unspecified abdominal pain; R05 Cough; J34.89 Other specified disorders of nose and nasal sinuses; R06.7 Sneezing; J45.909 Unspecified asthma, uncomplicated; Z79.899 Other long term (current) drug therapy; Z90.49 Acquired absence of other specified parts of digestive tract
CPT/HCPCS: 36415; 74018; 80053; 81001; 85025; 87804; 99284

== ENCOUNTER 2019-10-12 00:31 | Emergency (ER) | payer MEDICAID ==
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
[2019-10-12 03:48] VITALS: BP 110/44
== END 2019-10-12 03:47 | disposition home or self-care (01) ==
LOC: ER 00:31
DX: S00.512A Abrasion of oral cavity, initial encounter (principal); W45.8XXA Other foreign body or object entering through skin, initial encounter; Z90.49 Acquired absence of other specified parts of digestive tract

== ENCOUNTER → 2019-10-13 | Outpatient (CLI) | payer MEDICAID ==
--- NOTE | 2019-10-13 18:52 | RADIOLOGY REPORT (SQ) ---
EXAM DESCRIPTION: CHEST 2 VIEWS COMPLETED DATE/TIME: 10/13/2019 6:22 pm REASON FOR STUDY: COUGH COMPARISON: 10/01/2019 TECHNIQUE: Frontal and lateral radiographic views of the chest acquired. NUMBER OF VIEWS: Two view. LIMITATIONS: None. FINDINGS: LUNGS AND PLEURA: No pneumothorax. No consolidation or pleural effusion. MEDIASTINUM AND HILAR STRUCTURES: Stable. HEART AND VASCULAR STRUCTURES: Stable. BONES: No acute findings. HARDWARE: None in the chest. OTHER: No other significant finding. IMPRESSION: NO ACUTE FINDINGS. TECHNICAL DOCUMENTATION: JOB ID: [id number] [id number] 2010 [employer]- All Rights Reserved Reading location - IP/workstation name: [address] [address] [employer]
== END ==
LOC: RAD 18:11
PROVIDERS: ATTEND Nurse Practitioner Family
DX: R05 Cough (principal)
CPT/HCPCS: 71046

== ENCOUNTER 2019-10-16 18:23 | Emergency (ER) | payer MEDICAID ==
[2019-10-16 18:45] VITALS: BP 121/71
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
== END 2019-10-16 19:38 | disposition home or self-care (01) ==
LOC: ER 18:23
DX: Z77.098 Contact with and (suspected) exposure to other hazardous, chiefly nonmedicinal, chemicals (principal); Z90.49 Acquired absence of other specified parts of digestive tract
CPT/HCPCS: 99283

== ENCOUNTER 2019-10-16 23:59 | Emergency (ER) | payer MEDICAID ==
[2019-10-17] MEDS ORDERED: IPRATROPIUM/ALBUTEROL 0.5-2.5 MG/3 ML AMPUL NEB ONE (01:58)
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
[2019-10-17 03:38] VITALS: BP 112/72
== END 2019-10-17 03:49 | disposition home or self-care (01) ==
LOC: ER 23:59
DX: T59.91XA Toxic effect of unspecified gases, fumes and vapors, accidental (unintentional), initial encounter (principal); R10.9 Unspecified abdominal pain; R42 Dizziness and giddiness; R05 Cough; X58.XXXA Exposure to other specified factors, initial encounter; Z90.49 Acquired absence of other specified parts of digestive tract
CPT/HCPCS: 99283; J7620

== ENCOUNTER 2019-10-18 23:31 | Emergency (ER) | payer MEDICAID ==
[2019-10-18 23:52] VITALS: BP 129/78
== END 2019-10-19 03:48 | disposition left against medical advice (07) ==
LOC: ER 23:31
DX: Z53.21 Procedure and treatment not carried out due to patient leaving prior to being seen by health care provider (principal); R51 Headache

== ENCOUNTER 2019-10-19 03:52 | Emergency (ER) | payer MEDICAID ==
[2019-10-19 04:00] VITALS: BP 120/79
--- NOTE | 2019-10-19 17:32 | ER Document Report ---
Doctor's Note Notes: 10/19/19 I checked into this patient but when I went to find him in the ED he was nowhere to be found. Patient left without being seen
== END 2019-10-19 08:30 | disposition left against medical advice (07) ==
LOC: ER 03:52
DX: Z53.21 Procedure and treatment not carried out due to patient leaving prior to being seen by health care provider (principal)

== ENCOUNTER 2019-10-20 12:52 | Emergency (ER) | payer MEDICAID ==
[2019-10-20] MEDS ORDERED: MAG HYDROX/AL HYDROX/SIMETH SUSP 30 ML UDCUP PO ONE (13:35)
[2019-10-20] MEDS ORDERED: LIDOCAINE 2% VISCOUS SOLN 15 ML UDCUP PO ONE (13:35)
--- NOTE | 2019-10-20 13:36 | ER Document Report ---
ED Medical Screen (RME) - General Chief Complaint: Nausea Stated Complaint: ABDOMINAL PAIN Time Seen by Provider: 10/20/19 13:32 Primary Care Provider: GIANCARLO CHANCE MD [Primary Care Provider] - Follow up as needed TRAVEL OUTSIDE OF THE [place] IN LAST 30 DAYS: No - HPI Notes: 10/20/19 13:35 Patient is a 34-year-old male well-known emergency department who presents complaining of epigastric pain and burning with a several days. Pain will radiate up into his chest. No fever, vomiting, or diarrhea. I have treated and performed a rapid initial assessment of this patient. A comprehensive ED assessment and evaluation of the patient, analysis of test results and completion of medical decision making process will be conducted by additional ED providers. PHYSICAL EXAMINATION: GENERAL: Well-appearing, well-nourished and in no acute distress. A&Ox4. Answers questions appropriately. Abdomen: Limited exam in triage, and difficult to assess overall. There may be mild tenderness with epigastric noted, but I had to try to use his own hand with mine overtop. - Related Data Allergies/Adverse Reactions: No Known Allergies Allergy (Verified 10/11/19 18:16) Past Medical History - Social History Family history: Reviewed & Not Pertinent Pulmonary Medical History: Reports: Hx Asthma, Hx Bronchitis GI Medical History: Reports: Hx Irritable Bowel - constipation Musculoskeltal Medical History: Reports Hx Arthritis, Reports Hx Musculoskeletal Trauma Psychiatric Medical History: Reports: Hx Anxiety, Hx Bipolar Disorder, Hx Depression, Hx Personality Disorder, Hx Schizoaffective Disorder, Hx Schizophrenia Traumatic Medical History: Reports: Hx Fractures - Finger fracture Past Surgical History: Reports: Hx Abdominal Surgery, Hx Appendectomy, Hx Cholecystectomy, Hx Orthopedic Surgery - Immunizations Immunizations up to date: Yes Hx Diphtheria, Pertussis, Tetanus Vaccination: Yes - 2012 Physical Exam - Vital signs Vitals: Temp Pulse Resp BP Pulse Ox 97.5 F 64 18 120/59 L 98 10/20/19 12:56 10/20/19 12:56 10/20/19 12:56 10/20/19 12:56 10/20/19 12:56 Course - Vital Signs Vital signs: Temp Pulse Resp BP Pulse Ox 97.5 F 64 18 120/59 L 98 10/20/19 12:56 10/20/19 12:56 10/20/19 12:56 10/20/19 12:56 10/20/19 12:56 Doctor's Discharge - Discharge Referrals: GIANCARLO CHANCE MD [Primary Care Provider] - Follow up as needed
[2019-10-20 14:30] LABS: HEMOGLOBIN 13.2 g/dL (13.5-17.0); MEAN CORPUSCULAR HEMOGLOBIN 27.2 pg (27.0-33.4); MEAN CORPUSCULAR HGB CONC 33.9 g/dL (32.0-36.0); MEAN CORPUSCULAR VOLUME 80 fl (80-97); PLATELET COUNT 208 10^3/uL (150-450); RED BLOOD COUNT 4.86 10^6/uL (4.35-5.55); RED CELL DISTRIBUTION WIDTH 14.1 % (11.5-14.0); WHITE BLOOD COUNT 2.8 10^3/uL (4.0-10.5)
[2019-10-20 14:46] LABS: ALBUMIN 3.8 g/dL (3.5-5.0); ALKALINE PHOSPHATASE 66 U/L (38-126); ANION GAP 6 (5-19); ASPARTATE AMINO TRANSFERASE 23 U/L (17-59); BILIRUBIN,DIRECT 0.1 mg/dL (0.0-0.4); BILIRUBIN,TOTAL 1.6 mg/dL (0.2-1.3); BLOOD UREA NITROGEN 10 mg/dL (7-20); CALCIUM 8.9 mg/dL (8.4-10.2); CARBON DIOXIDE 28 mmol/L (22-30); CHLORIDE 106 mmol/L (98-107); GLUCOSE 86 mg/dL (75-110); POTASSIUM 4.5 mmol/L (3.6-5.0); TOTAL PROTEIN 6.3 g/dL (6.3-8.2)
[2019-10-20 14:49] LABS: ABSOLUTE LYMPHOCYTES# (MANUAL) 1.1 10^3/uL (0.5-4.7); ABSOLUTE MONOCYTES # (MANUAL) 0.2 10^3/uL (0.1-1.4); BASOPHILS % (MANUAL) 2 % (0-2); EOSINOPHILS % (MANUAL) 21 % (0-6); LYMPHOCYTES % (MANUAL) 32 % (13-45); MONOCYTES % (MANUAL) 6 % (3-13); SEGMENTED NEUTROPHILS % (MAN) 30 % (42-78); TOTAL CELLS COUNTED 100
[2019-10-20 14:50] LABS: ANISOCYTOSIS SLIGHT
[2019-10-20 14:51] LABS: PLATELET COMMENT ADEQUATE
[2019-10-20 15:10] LABS: APPEARANCE,URINE CLEAR; BILIRUBIN,URINE NEGATIVE (NEGATIVE); COLOR,URINE COLORLESS; GLUCOSE, URINE NEGATIVE (NEGATIVE); KETONES,URINE NEGATIVE (NEGATIVE); PROTEIN,URINE NEGATIVE (NEGATIVE); URINE SPECIFIC GRAVITY 1.003; UROBILINOGEN,URINE NEGATIVE mg/dL (<2.0)
--- NOTE | 2019-10-20 15:31 | RADIOLOGY REPORT (SQ) ---
EXAM DESCRIPTION: CHEST 2 VIEWS COMPLETED DATE/TIME: 10/20/2019 3:22 pm REASON FOR STUDY: cough congestion short of breath COMPARISON: 10/13/2019 EXAM PARAMETERS: NUMBER OF VIEWS: two views TECHNIQUE: Digital Frontal and Lateral radiographic views of the chest acquired. RADIATION DOSE: NA LIMITATIONS: none FINDINGS: LUNGS AND PLEURA: No opacities, masses or pneumothorax. No pleural effusion. MEDIASTINUM AND HILAR STRUCTURES: No masses or contour abnormalities. HEART AND VASCULAR STRUCTURES: Heart normal size. No evidence for failure. BONES: No acute findings. HARDWARE: None in the chest. OTHER: No other significant finding. IMPRESSION: No focal airspace disease or other acute cardiopulmonary findings. TECHNICAL DOCUMENTATION: JOB ID: [id number] 2010 [employer]- All Rights Reserved Reading location - IP/workstation name: [email or web address]
[2019-10-20] MEDS: ALBUTEROL SULFATE 0.083% NEB 2.5 MG/3 ML AMPUL NEB SCH ×2 (15:43→16:04)
[2019-10-20] MEDS ORDERED: PREDNISONE 20 MG TABLET PO ONE (15:55)
--- NOTE | 2019-10-20 15:58 | ER Document Report ---
ED Respiratory Problem - General Chief Complaint: Nausea Stated Complaint: ABDOMINAL PAIN Time Seen by Provider: 10/20/19 13:32 Primary Care Provider: GIANCARLO CHANCE MD [Primary Care Provider] - Follow up as needed Notes: 34-year-old male presented to ED for burning and epigastric pain in the pit area. When he came to me he was complaining of shortness of breath cough congestion and wheezing. He states the medicine they gave him in the pit area corrected the epigastric burning. He does have a upper respiratory infection with a mild wheeze. We will treat him with 1 dose of prednisone 3 albuterol treatments and discharge him home. His chest x-ray is normal for this patient. Blood work shows a viral shift. TRAVEL OUTSIDE OF THE [place] IN LAST 30 DAYS: No - HPI Patient complains to provider of: Asthma, Cough - URI, Other Onset: Other - Several days Duration: Intermittent episodes Quality of pain: No pain Severity: None Pain Level: Denies Cough: Nonproductive Sputum amount: None At home treatment: Bronchodilators Associated symptoms: Cough, PND, Runny nose, Wheezing Similar symptoms previously: Yes Recently seen / treated by doctor: Yes - Related Data Allergies/Adverse Reactions: No Known Allergies Allergy (Verified 10/11/19 18:16) Past Medical History - General Information source: Patient - Social History Smoking Status: Never Smoker Frequency of alcohol use: None Drug Abuse: None Lives with: Homeless Family History: Reviewed & Not Pertinent Patient has suicidal ideation: No Patient has homicidal ideation: No - Past Medical History Cardiac Medical History: Reports: None Pulmonary Medical History: Reports: Hx Asthma, Hx Bronchitis EENT Medical History: Reports: None Neurological Medical History: Reports: None Endocrine Medical History: Reports: None Renal/ Medical History: Reports: None Malignancy Medical History: Reports None GI Medical History: Reports: Hx Gastroesophageal Reflux Disease, Hx Irritable Bowel - constipation Musculoskeletal Medical History: Reports Hx Arthritis, Reports Hx Musculos keletal Trauma Skin Medical History: Reports None Psychiatric Medical History: Reports: Hx Anxiety, Hx Bipolar Disorder, Hx Depression, Hx Personality Disorder, Hx Schizoaffective Disorder, Hx Schizophrenia Traumatic Medical History: Reports: Hx Fractures - Finger fracture Past Surgical History: Reports: Hx Abdominal Surgery, Hx Appendectomy, Hx Cholecystectomy, Hx Orthopedic Surgery - Immunizations Immunizations up to date: Yes Hx Diphtheria, Pertussis, Tetanus Vaccination: Yes - 2012 Hx Pneumococcal Vaccination: 08/23/00 Review of Systems - Review of Systems Constitutional: No symptoms reported EENT: Nose discharge, Sinus discharge Cardiovascular: No symptoms reported Respiratory: Cough, Wheezing Gastrointestinal: Other - Epigastric pain earlier but that was resolved by the time I saw him Genitourinary: No symptoms reported Male Genitourinary: No symptoms reported Musculoskeletal: No symptoms reported Skin: No symptoms reported Hematologic/Lymphatic: No symptoms reported Neurological/Psychological: No symptoms reported -: Yes All other systems reviewed and negative Physical Exam - Vital signs Vitals: Temp Pulse Resp BP Pulse Ox 97.5 F 64 18 120/59 L 98 10/20/19 12:56 10/20/19 12:56 10/20/19 12:56 10/20/19 12:56 10/20/19 12:56 Interpretation: Normal - General General appearance: Appears well, Alert - HEENT Head: Normocephalic, Atraumatic Eyes: Normal Pupils: PERRL - Respiratory Respiratory status: No respiratory distress Chest status: Nontender Breath sounds: Normal Chest palpation: Normal - Cardiovascular Rhythm: Regular Heart sounds: Normal auscultation Murmur: No - Abdominal Inspection: Normal Distension: No distension Bowel sounds: Normal Tenderness: Nontender Organomegaly: No organomegaly - Back Back: Normal, Nontender - Extremities General upper extremity: Normal inspection, Nontender, Normal color, Normal ROM, Normal temperature General lower extremity: Normal inspection, Nontender, Normal color, Normal ROM, Normal temperature, Normal weight bearing. No: Esdras's sign - Neurological Neuro grossly intact: Yes Cognition: Normal Orientation: AAOx4 Jasmin Coma Scale Eye Opening: Spontaneous Continental Coma Scale Verbal: Oriented Continental Coma Scale Motor: Obeys Commands Jasmin Coma Scale Total: 15 Speech: Normal Motor strength normal: LUE, RUE, LLE, RLE Sensory: Normal - Psychological Associated symptoms: Normal affect, Normal mood - Skin Skin Temperature: Warm Skin Moisture: Dry Skin Color: Normal Course - Re-evaluation Re-evalutation: 10/20/19 17:17 Lungs clear after breathing treatments albuterol treatments. Patient has a upper respiratory infection. He does have an albuterol inhaler to go home with. After performing a Medical Screening Examination, I estimate there is LOW risk for ACUTE CORONARY SYNDROME, RESPIRATORY FAILURE, SEPSIS OR MENINGITIS, thus I consider the discharge disposition reasonable. I have reevaluated this patient multiple times and no significant life threatening changes are noted. The patient and I have discussed the diagnosis and risks, and we agree with discharging home with close follow-up. We also discussed returning to the Emerg ency Department immediately if new or worsening symptoms occur. We have discussed the symptoms which are most concerning (e.g., changing or worsening pain, trouble swallowing or breathing, neck stiffness, fever) that necessitate immediate return. - Vital Signs Vital signs: Temp Pulse Resp BP Pulse Ox 98.3 F 73 18 119/57 L 97 10/20/19 16:14 10/20/19 16:14 10/20/19 16:14 10/20/19 16:14 10/20/19 16:14 - Laboratory Result Diagrams: 10/20/19 14:19 10/20/19 14:19 Laboratory results interpreted by me: 10/20/19 10/20/19 10/20/19 14:19 14:19 14:47 WBC 2.8 L Hgb 13.2 L RDW 14.1 H Seg Neuts % (Manual) 30 L Eosinophils % (Manual) 21 H Abs Neuts (Manual) 0.8 L Total Bilirubin 1.6 H Urine Blood SMALL H - Diagnostic Test Radiology reviewed: Image reviewed, Reports reviewed Discharge - Discharge Clinical Impression: URI (upper respiratory infection) Qualifiers: URI type: unspecified viral URI Qualified Code(s): J06.9 - Acute upper respiratory infection, unspecified Asthma exacerbation Qualifiers: Asthma severity: mild Asthma persistence: unspecified Qualified Code(s): J45.901 - Unspecified asthma with (acute) exacerbation Condition: Stable Disposition: HOME, SELF-CARE Additional Instructions: ASTHMA: You have been diagnosed as having asthma. This is a condition where there is episodic tightness in the bronchial tubes. Allergies, infections, and polluted or cold air may be contributing factors. Emergency treatment of a severe asthma attack may include adrenaline shots, or bronchodilator aerosol. You may feel lightheaded, have a decreased exercise tolerance and a rapid pulse for an hour or two. Rest and get plenty of fluids. Home treatment of asthma requires bronchodilator drugs. These can be administered by injection, inhalation, or by mouth. Antibiotics and corticosteroids may be required for some patients. You should avoid chemical fumes, dusts, pollens, and exercising in very cold or dry air. If you smoke, stop!! If you develop a fever, increased wheezing, chest pain, or severe shortness of breath, you should contact the doctor immediately. UPPER RESPIRATORY ILLNESS: You have a viral infection of the respiratory passages -- a "cold." This common infection causes nasal congestion, drainage, and often sore throat and cough. It is highly contagious. The disease usually lasts about 10 to 14 days. There is no "cure" for the viral infection -- it must run its course. If there is a complication, such as bacterial infection in the nose, sinuses, middle ear, or bronchial tubes, antibiotics may be required. The antibiotics won't affect the virus. Drink plenty of fluids. A humidifier may help. An expectorant medication or decongestant may make you more comfortable. Use acetaminophen or ibuprofen for fever or aches. See the doctor if fever persists over two days, if there is any significant worsening of your symptoms, or if you simply fail to improve as expected. BRONCHOSPASM: You have tightness in the bronchial tubes, called bronchospasm. This often occurs with bronchial infections. Allergies, inhaled chemicals, and polluted or cold air can also provoke bronchospasm. It's more likely in patients with asthma in the family. Emergency treatment of bronchospasm may include adrenaline shots or bronchodilator aerosol. You may feel lightheaded and have a rapid pulse for an hour or two. Rest and get plenty of fluids. At home, we'll treat you with a bronchodilator inhaler. Antibiotics and corticosteroids may be required for some patients. Until you recover, avoid chem ical fumes, dusts, pollens, and exercising in very cold or dry air. If you smoke, stop now!! If you develop a fever, increased wheezing, chest pain, or severe shortness of breath, you should contact the doctor immediately. INHALED BRONCHODILATORS: You have received a treatment of and/or prescription for an inhaled bronchodilator -- a medication which stimulates the airways in the lung to dilate. This improves the flow of air in asthma, bronchitis, and emphysema. These medicines have some similarity to adrenaline, and can cause similar side effects: shakiness, racing heart, and a sense of nervousness. These side effects decrease with time. Contact your doctor if these side effects are severe. Do not over-use the medicine. Too-frequent use of the inhaler may make it ineffective. Call your doctor if the inhaler is not controlling your symptoms at the prescribed doses. STEROID MEDICATION: You have been given an injection of or oral medicine of the cortiso ne/steroid class. This medication is used to control inflammation or allergy. Satish t is usually only given for a short period of time, until the acute process subsides. There are usually no side effects from short-term use of cortisone-like medications. Some persons feel an increased sense of well-being and are not sleepy at bedtime. Long-term use of cortisone medications is best avoided, unless required for a severe condition. If your condition does not remit, or relapses after the course of corticosteroid medication, you should consult your physician. You have been recommended treatment with Flonase which is [id number] 1 spray each nostril twice a day. You could also use salt soda solution gargles. These will help to remove the drainage from the back your throat. Chloraseptic spray was drlw-ext-vezieiw that will also help with your sore throat. Salt and soda solution gargle 1 quart of water 1 tablespoon of salt 1 teaspoon of baking soda Mixed 3 ingredients together and boil for 1 minute Placed in a covered quart jar Use 1/2 ounce of cold solution to gargle 3 times a day INHALED BRONCHODILATORS: You have received treatment(s) of and/or prescription for an inhaled bronchodilator -- a medication which stimulates the airways in the lung to dilate. This improves the flow of air in asthma, bronchitis, and emphysema. These medicines have some similarity to adrenaline, and can cause similar side effects: shakiness, racing heart, and a sense of nervousness. These side effects decrease with time. Contact your doctor if these side effects are sev ere. Do not over-use the medicine. Too-frequent use of the inhaler may make it ineffective. Call your doctor if the inhaler is not controlling your symptoms at the prescribed doses. USE OF ACETAMINOPHEN (Tylenol): Acetaminophen may be taken for pain relief or fever control. It's much sa juani than aspirin, offering a wider range of "safe" dosages. It is safe during . Some brand names are Tylenol, Panadol, Datril, Anacin 3, Tempra, and Liquiprin. Acetaminophen can be repeated every four hours. The following are maximum recommended dosages: WEIGHT Dose Drops Elixir Chewable(80mg) (LBS.) drprs=droppers tsp=teaspoon 6 40 mg 0.4 ml (1/2) 6-11 80 mg 0.8 ml (full) tsp 1 tab 12-16 120 mg 1 1/2 drprs 3/4 tsp 1 1/2 tabs 17-23 160 mg 2 drprs 1 tsp 2 tabs 24-30 240 mg 3 drprs 1 1/2 tsp 3 tabs 30-35 320 mg 2 tsp 4 tabs 36-41 360 mg 2 1/4 tsp 4 1/2 tabs 42-47 400 mg 2 1/2 tsp 5 tabs 48-53 480 mg 3 tsp 6 tabs 54-59 520 mg 3 1/4 tsp 6 1/2 tabs 60-64 560 mg 3 1/2 tsp 7 tabs 65-70 600 mg 3 3/4 tsp 7 1/2 tabs 71-76 640 mg 4 tsp 8 tabs 77-82 720 mg 4 1/2 tsp 9 tabs 83-88 800 mg 5 tsp 10 tabs >89 pounds or adults 650 mg to 900 mg Acetaminophen can be repeated every four hours. Maximum dose not to exceed 4000 mg a day. These maximum recommended dosages are slightly higher than the dosages written on the product container, but these dosages are very safe and below the toxic dosage for acetaminophen. FOLLOW-UP CARE: If you have been referred to a physician for follow-up care, call the physicians office for an appointment as you were instructed or within the next two days. If you experience worsening or a significant change in your symptoms, notify the physician immediately or return to the Emergency Department at any time for re-evaluation. Referrals: GIANCARLO CHANCE MD [Primary Care Provider] - Follow up as needed
[2019-10-20 16:15] VITALS: BP 119/57
== END 2019-10-20 16:55 | disposition home or self-care (01) ==
LOC: ER 12:52
DX: J06.9 Acute upper respiratory infection, unspecified (principal); J45.901 Unspecified asthma with (acute) exacerbation; R10.13 Epigastric pain; R11.0 Nausea; Z90.49 Acquired absence of other specified parts of digestive tract
CPT/HCPCS: 94640 ×2; 99285; 36415; 83690; 85025; 80053; 81001; 71046; J3490 ×2; J7512

== ENCOUNTER 2019-10-21 13:01 | Emergency (ER) | payer MEDICAID ==
[2019-10-21 13:10] VITALS: BP 151/73
[2019-10-21] MEDS ORDERED: ALBUTEROL SULFATE HFA (90 MCG/PUFF) 8 GM MDI (1 MDI/ER DISP) IH ONE (13:40)
--- NOTE | 2019-10-21 13:45 | ER Document Report ---
HPI - HPI Time Seen by Provider: 10/21/19 13:35 Pain Level: 0 Notes: Patient is a 34-year-old male with a history of asthma well-known to the emergency department who presents complaint of having wheezing earlier today that is since improved. He left his inhaler at home and is requesting another one. He has no other concerns or complaints at this time. He is able to eat and drink without difficulty. He is urinating normally and having normal bowel movements. Denies any headache, fever, neck pain, URI, sore throat, chest pain, palpitations, syncope, cough, shortness of breath, abdominal pain, nausea/vomiting/diarrhea, urinary retention, dysuria, hematuria, or rash. - ROS Systems Reviewed and Negative: Yes All other systems reviewed and negative - CONSTITUTIONAL Constitutional: DENIES: Fever, Chills - REPRODUCTIVE Reproductive: DENIES: : Past Medical History - Social History Smoking Status: Never Smoker Chew tobacco use (# tins/day): No Frequency of alcohol use: None Drug Abuse: None Family History: Reviewed & Not Pertinent Patient has suicidal ideation: No Patient has homicidal ideation: No Pulmonary Medical History: Reports: Hx Asthma, Hx Bronchitis GI Medical History: Reports: Hx Gastroesophageal Reflux Disease, Hx Irritable Bowel - constipation Musculoskeletal Medical History: Reports Hx Arthritis, Reports Hx Musculoskeletal Trauma Psychiatric Medical History: Reports: Hx Anxiety, Hx Bipolar Disorder, Hx Depression, Hx Personality Disorder, Hx Schizoaffective Disorder, Hx Schizophrenia Traumatic Medical History: Reports: Hx Fractures - Finger fracture Past Surgical History: Reports: Hx Abdominal Surgery, Hx Appendectomy, Hx Cholecystectomy, Hx Orthopedic Surgery - Immunizations Immunizations up to date: Yes Hx Diphtheria, Pertussis, Tetanus Vaccination: Yes - 2012 Hx Pneumococcal Vaccination: 08/23/00 Vertical Provider Document - CONSTITUTIONAL Agree With Documented VS: Yes Notes: PHYSICAL EXAMINATION: GENERAL: Well-appearing, well-nourished and in no acute distress. HEAD: Atraumatic, normocephalic. EYES: Pupils equal round and reactive to light, extraocular movements intact, sclera anicteric, conjunctiva are normal. ENT: Nares patent and without discharge. oropharynx clear without exudates. No tonsilar hypertrophy or erythema. Moist mucous membranes. NECK: Normal range of motion, supple without lymphadenopathy LUNGS: Breath sounds clear to auscultation bilaterally and equal. No wheezes rales or rhonchi. HEART: Regular rate and rhythm without murmurs, rubs, gallops. Musculoskeletal: FROM to passive/active. Strength 5+/5. Extremities: No cyanosis, clubbing, or edema b/l. Peripheral pulses 2+. Capillary refill less than 3 seconds. NEUROLOGICAL: Normal speech, normal gait. PSYCH: Normal mood, normal affect. SKIN: Warm, Dry, normal turgor, no rashes or lesions noted. - INFECTION CONTROL TRAVEL OUTSIDE OF THE [place] IN LAST 30 DAYS: No Course - Re-evaluation Re-evalutation: 10/21/19 13:41 Patient is an afebrile, well-hydrated 34-year-old male who presents for medication refill and wheezing. Vitals are acceptable astigmatic cardiac him tachypnea, hypoxia. PE is otherwise unremarkable. Patient is nontoxic- appearing is tolerating p.o. without difficulty. His lungs are clear to auscultation bilaterally. Albuterol dispense provided today. No further work- up warranted. Low suspicion for any other systemic or emergent condition at this time. Patient states that he is feeling well and would like to go home. Patient recheck with his family doctor next week. Return to the ED with any other worsening/concerning symptoms. Patient is in agreement. - Vital Signs Vital signs: Temp Pulse Resp BP Pulse Ox 98.5 F 97 20 151/73 H 97 10/21/19 13:07 10/21/19 13:07 10/21/19 13:07 10/21/19 13:07 10/21/19 13:07 Discharge - Discharge Clinical Impression: Medication refill, Wheeze Condition: Stable Disposition: HOME, SELF-CARE Additional Instructions: Maintain adequate fluid intake tylenol/ibuprofen as needed alternating every 3 hours for fever/body ache over the counter cold medication as needed for symptoms Humidified air may help Wash your hands regularly Wear a mask when coughing F/u: with your PCM in 3-5 days for a recheck Return to the ED with any fever, altered mental status/behavior, chest pain, palpitations, syncope, headache, neck pain/stiffness, shortness of breath, chest pains, wheezing, drooling, trouble swallowing/breathing, abdominal pain, n/v/d, rash, or worsening/concerning symptoms otherwise. Forms: Elevated Blood Pressure Referrals: GIANCARLO CHANCE MD [Primary Care Provider] - Follow up in 3-5 days
--- NOTE | 2019-10-21 14:19 | ER Document Report ---
ED Medical Screen (RME) - General Chief Complaint: Cold Symptoms Stated Complaint: DIFFICULTY BREATHING Time Seen by Provider: 10/21/19 13:35 Primary Care Provider: GIANCARLO CHANCE MD [Primary Care Provider] - Follow up in 3-5 days TRAVEL OUTSIDE OF THE [place] IN LAST 30 DAYS: No - Related Data Allergies/Adverse Reactions: No Known Allergies Allergy (Verified 10/21/19 13:32) Past Medical History - Social History Chew tobacco use (# tins/day): No Frequency of alcohol use: None Drug Abuse: None Family history: Reviewed & Not Pertinent Pulmonary Medical History: Reports: Hx Asthma, Hx Bronchitis GI Medical History: Reports: Hx Gastroesophageal Reflux Disease, Hx Irritable Bowel - constipation Musculoskeltal Medical History: Reports Hx Arthritis, Reports Hx Musculoskeletal Trauma Psychiatric Medical History: Reports: Hx Anxiety, Hx Bipolar Disorder, Hx Depression, Hx Personality Disorder, Hx Schizoaffective Disorder, Hx Schizophrenia Traumatic Medical History: Reports: Hx Fractures - Finger fracture Past Surgical History: Reports: Hx Abdominal Surgery, Hx Appendectomy, Hx Cholecystectomy, Hx Orthopedic Surgery - Immunizations Immunizations up to date: Yes Hx Diphtheria, Pertussis, Tetanus Vaccination: Yes - 2012 Physical Exam - Vital signs Vitals: Temp Pulse Resp BP Pulse Ox 98.5 F 97 20 151/73 H 97 10/21/19 13:07 10/21/19 13:07 10/21/19 13:07 10/21/19 13:07 10/21/19 13:07 Course - Vital Signs Vital signs: Temp Pulse Resp BP Pulse Ox 98.5 F 97 20 151/73 H 97 10/21/19 13:07 10/21/19 13:07 10/21/19 13:07 10/21/19 13:07 10/21/19 13:07 Doctor's Discharge - Discharge Clinical Impression: Medication refill, Wheeze Condition: Stable Disposition: HOME, SELF-CARE Additional Instructions: Maintain adequate fluid intake tylenol/ibuprofen as needed alternating every 3 hours for fever/body ache over the counter cold medication as needed for symptoms Humidified air may help Wash your hands regularly Wear a mask when coughing F/u: with your PCM in 3-5 days for a recheck Return to the ED with any fever, altered mental status/behavior, chest pain, palpitations, syncope, headache, neck pain/stiffness, shortness of breath, chest pains, wheezing, drooling, trouble swallowing/breathing, abdominal pain, n/v/d, rash, or worsening/concerning symptoms otherwise. Forms: Elevated Blood Pressure Referrals: GIANCARLO CHANCE MD [Primary Care Provider] - Follow up in 3-5 days
== END 2019-10-21 14:12 | disposition home or self-care (01) ==
LOC: ER 13:01
DX: Z76.0 Encounter for issue of repeat prescription (principal); J45.909 Unspecified asthma, uncomplicated
CPT/HCPCS: 99284; J3490

== ENCOUNTER 2019-10-21 17:57 | Emergency (ER) | payer MEDICAID ==
[2019-10-21 18:08] VITALS: BP 123/78
--- NOTE | 2019-10-21 18:21 | ER Document Report ---
HPI - HPI Time Seen by Provider: 10/21/19 18:11 Pain Level: Denies Notes: Patient is a 34-year-old male who presents for the second time today, but for a different reason. Patient states that he was using all-purpose lemon scented opening machine cleaner when he breathed some of it in. Patient states that he was just concerned and he felt a little anxious so he came for evaluation. Patient states that he has not had any respiratory distress or trouble breathing. Denies drug allergies. He has no other concerns or complaints. He is otherwise feeling well. Denies any headache, fever, neck pain, URI, sore throat, chest pain, palpitations, syncope, cough, shortness of breath, wheeze, dyspnea, abdominal pain, nausea/vomiting/diarrhea, urinary retention, dysuria, hematuria, or rash. - ROS Systems Reviewed and Negative: Yes All other systems reviewed and negative - REPRODUCTIVE Reproductive: DENIES: : Past Medical History - Social History Smoking Status: Never Smoker Family History: Reviewed & Not Pertinent Patient has suicidal ideation: No Patient has homicidal ideation: No Pulmonary Medical History: Reports: Hx Asthma, Hx Bronchitis GI Medical History: Reports: Hx Gastroesophageal Reflux Disease, Hx Irritable Bowel - constipation Musculoskeletal Medical History: Reports Hx Arthritis, Reports Hx Musculoskeletal Trauma Psychiatric Medical History: Reports: Hx Anxiety, Hx Bipolar Disorder, Hx Depression, Hx Personality Disorder, Hx Schizoaffective Disorder, Hx Schizophrenia Traumatic Medical History: Reports: Hx Fractures - Finger fracture Past Surgical History: Reports: Hx Abdominal Surgery, Hx Appendectomy, Hx Cholecystectomy, Hx Orthopedic Surgery - Immunizations Immunizations up to date: Yes Hx Diphtheria, Pertussis, Tetanus Vaccination: Yes - 2012 Hx Pneumococcal Vaccination: 08/23/00 Vertical Provider Document - CONSTITUTIONAL Agree With Documented VS: Yes Notes: PHYSICAL EXAMINATION: GENERAL: Well-appearing, well-nourished and in no acute distress. HEAD: Atraumatic, normocephalic. EYES: Pupils equal round and reactive to light, extraocular movements intact, sclera anicteric, conjunctiva are normal. ENT: Nares patent and without discharge. oropharynx clear without exudates. No tonsilar hypertrophy or erythema. Moist mucous membranes. No sinus tenderness. NECK: Normal range of motion, supple without lymphadenopathy LUNGS: Breath sounds clear to auscultation bilaterally and equal. No wheezes rales or rhonchi. HEART: Regular rate and rhythm without murmurs, rubs, gallops. ABDOMEN: Soft, nontender, nondistended abdomen. No guarding, no rebound. Normal bowel sounds present. No CVA tenderness bilaterally. Musculoskeletal: FROM to passive/active. Strength 5+/5. Extremities: No cyanosis, clubbing, or edema b/l. Peripheral pulses 2+. Capillary refill less than 3 seconds. NEUROLOGICAL: Cranial nerves grossly intact. Normal speech, normal gait. PSYCH: Normal mood, normal affect. SKIN: Warm, Dry, normal turgor, no rashes or lesions noted. - INFECTION CONTROL TRAVEL OUTSIDE OF THE [place] IN LAST 30 DAYS: No Course - Re-evaluation Re-evalutation: 10/21/19 18:20 Patient is an afebrile, well-hydrated, 34-year-old male who presents for a worried well visit for possible mild chemical exposure to a household opening machine cleaner. Vitals are except without significant tachycardia, tachypnea, hypoxia. PE is otherwise unremarkable. Patient's lungs are clear to auscultation bilaterally. He is nontoxic-appearing and is tolerating p.o. without difficulty. No labs or imaging warranted. Low suspicion for any other systemic or emergent condition at this time. Patient to monitor symptoms for any acute changes and return to the ED if so. Recheck with your PCM in 3 to 5 days otherwise. Patient is in agreement. - Vital Signs Vital signs: Temp Pulse Resp BP Pulse Ox 98.4 F 100 18 123/78 96 10/21/19 18:07 10/21/19 18:07 10/21/19 18:07 10/21/19 18:07 10/21/19 18:07 Discharge - Discharge Clinical Impression: Chemical exposure Condition: Stable Disposition: HOME, SELF-CARE Additional Instructions: Maintain adequate fluid intake tylenol/ibuprofen as needed alternating every 3 hours for fever/body ache over the counter cold medication as needed for symptoms Humidified air may help Wash your hands regularly Wear a mask when coughing F/u: with your PCM in 3-5 days for a recheck Return to the ED with any fever, altered mental status/behavior, chest pain, palpitations, syncope, headache, neck pain/stiffness, shortness of breath, chest pains, wheezing, drooling, trouble swallowing/breathing, abdominal pain, n/v/d, rash, or worsening/concerning symptoms otherwise. Referrals: GIANCARLO CHANCE MD [Primary Care Provider] - Follow up in 3-5 days
== END 2019-10-21 18:31 | disposition home or self-care (01) ==
LOC: ER 17:57
DX: Z77.29 Contact with and (suspected) exposure to other hazardous substances (principal)
CPT/HCPCS: 99283

== ENCOUNTER 2019-10-24 21:27 | Emergency (ER) | payer MEDICAID ==
[2019-10-24] MEDS ORDERED: IPRATROPIUM/ALBUTEROL 0.5-2.5 MG/3 ML AMPUL NEB ONE (22:01)
--- NOTE | 2019-10-24 22:11 | ER Document Report ---
HPI - HPI Time Seen by Provider: 10/24/19 21:56 Pain Level: Denies Context: Patient is a 34-year-old male with a history of asthma who presents emergency department with a chief complaint of shortness of breath. Patient is well-known to this emergency department. Patient has been using his albuterol inhaler. States that he has enough of his medication. Patient states that he also has sinus congestion. He states that he has had it for the past 2 to 3 days. - CONSTITUTIONAL Constitutional: DENIES: Fever, Chills - EENT EENT: REPORTS: Nasal Drainage-Clear, Congestion. DENIES: Sore Throat, Ear Pain, Nasal Drainage-Purulent, Eye problems - NEURO Neurology: DENIES: Headache, Weakness, Vision blurred, Dizzinesss / Vertigo - RESPIRATORY Respiratory: REPORTS: Coughing - REPRODUCTIVE Reproductive: DENIES: : - DERM Skin Color: Normal Skin Problems: None Past Medical History - Social History Smoking Status: Never Smoker Chew tobacco use (# tins/day): No Frequency of alcohol use: None Drug Abuse: None Family History: Reviewed & Not Pertinent Patient has suicidal ideation: No Patient has homicidal ideation: No Pulmonary Medical History: Reports: Hx Asthma, Hx Bronchitis GI Medical History: Reports: Hx Gastroesophageal Reflux Disease, Hx Irritable Bowel - constipation Musculoskeletal Medical History: Reports Hx Arthritis, Reports Hx Musculoskeletal Trauma Psychiatric Medical History: Reports: Hx Anxiety, Hx Bipolar Disorder, Hx Depression, Hx Personality Disorder, Hx Schizoaffective Disorder, Hx Schizophrenia Traumatic Medical History: Reports: Hx Fractures - Finger fracture Past Surgical History: Reports: Hx Abdominal Surgery, Hx Appendectomy, Hx Cholecystectomy, Hx Orthopedic Surgery - Immunizations Immunizations up to date: Yes Hx Diphtheria, Pertussis, Tetanus Vaccination: Yes - 2012 Hx Pneumococcal Vaccination: 08/23/00 Vertical Provider Document - CONSTITUTIONAL Agree With Documented VS: Yes Exam Limitations: No Limitations General Appearance: No Apparent Distress - INFECTION CONTROL TRAVEL OUTSIDE OF THE [place] IN LAST 30 DAYS: No - HEENT HEENT: Atraumatic. negative: Pharyngeal Exudate, Pharyngeal Tenderness, Pharyngeal Erythema, Tympanic Membrane Red, Tympanic Membrane Bulging - NECK Neck: Normal Inspection, Supple. negative: Lymphadenopathy-Left, Lymphadenopathy-Right - RESPIRATORY Respiratory: No Respiratory Distress, Wheezing - Expiratory noted throughout all lung garcia - CARDIOVASCULAR Cardiovascular: Regular Rate, Regular Rhythm, No Murmur Pulses: Normal: Radial - GI/ABDOMEN Gastrointestinal: Abdomen Soft - MUSCULOSKELETAL/EXTREMETIES Musculoskeletal/Extremeties: FROM - NEURO Level of Consciousness: Awake, Alert, Appropriate Motor/Sensory: No Motor Deficit, No Sensory Deficit, No Pronator Drift - DERM Integumentary: Warm, Dry, No Rash Course - Re-evaluation Re-evalutation: 10/24/19 23:00 Since the duration of his symptoms have only been 2 to 3 days, I have a very low suspicion for sinusitis. Patient's breath sounds are now clear after receiving a DuoNeb treatment. He will be given cetirizine. I will also write him a prescription for cetirizine and Flonase. He will follow-up with his primary care provider. Follow-up precautions were given. Verbal discharge instructions were given to the patient. They verbalized understanding. They are stable for discharge. - Vital Signs Vital signs: Temp Pulse Resp BP Pulse Ox 98.1 F 74 20 127/80 H 97 10/24/19 21:39 10/24/19 21:39 10/24/19 21:39 10/24/19 21:39 10/24/19 21:39 Discharge - Discharge Clinical Impression: Shortness of breath, Wheeze Condition: Stable Disposition: HOME, SELF-CARE Additional Instructions: You were seen today in emergency department for shortness of breath and wheezing. You received a breathing treatment here in the emergency department with good results. Start cetirizine and Flonase. Follow-up with your primary care provider. Prescriptions: Cetirizine HCl [All Day Allergy] 10 mg PO DAILY #30 tablet Fluticasone Propionate [Flonase Nasal Dike 50 Mcg/Dike 16 gm] 2 sprays NASL DAILY #1 inhaler Referrals: GIANCARLO CHANCE MD [Primary Care Provider] - Follow up as needed
[2019-10-24] MEDS ORDERED: CETIRIZINE 10 MG TABLET PO ONE (22:55)
[2019-10-24 23:19] VITALS: BP 115/71
== END 2019-10-24 23:18 | disposition home or self-care (01) ==
LOC: ER 21:27
DX: R06.02 Shortness of breath (principal); R06.2 Wheezing; R09.81 Nasal congestion; Z90.49 Acquired absence of other specified parts of digestive tract
CPT/HCPCS: 94640; 99283; J3490; J7620

== ENCOUNTER 2019-10-25 07:08 | Emergency (ER) | payer MEDICAID ==
[2019-10-25] MEDS ORDERED: IPRATROPIUM/ALBUTEROL 0.5-2.5 MG/3 ML AMPUL NEB ONE (07:43)
[2019-10-25] MEDS ORDERED: NORMAL SALINE 1000 ML 1,000 ML IV ONE (07:48)
[2019-10-25] MEDS ORDERED: METHYLPREDNISOLONE INJ 125 MG/2 ML SDV IV ONE (07:48)
[2019-10-25 08:11] LABS: HEMATOCRIT 39.9 % (37.9-51.0); HEMOGLOBIN 13.5 g/dL (13.5-17.0); MEAN CORPUSCULAR HEMOGLOBIN 27.2 pg (27.0-33.4); MEAN CORPUSCULAR HGB CONC 33.8 g/dL (32.0-36.0); MEAN CORPUSCULAR VOLUME 81 fl (80-97); PLATELET COUNT 206 10^3/uL (150-450); RED BLOOD COUNT 4.95 10^6/uL (4.35-5.55); RED CELL DISTRIBUTION WIDTH 14.4 % (11.5-14.0); WHITE BLOOD COUNT 3.5 10^3/uL (4.0-10.5)
--- NOTE | 2019-10-25 08:12 | ER Document Report ---
ED General - General Chief Complaint: Shortness Of Breath Stated Complaint: COUGH Time Seen by Provider: 10/25/19 07:32 Primary Care Provider: GIANCARLO CHANCE MD [Primary Care Provider] - Follow up as needed Mode of Arrival: Ambulatory Information source: Patient TRAVEL OUTSIDE OF THE [place] IN LAST 30 DAYS: No - HPI Notes: Patient well-known to the emergency department presents with shortness of breath. He states he recently had similar symptoms and was prescribed some allergy medication but he has been unable to fill them. He states over the last day he has had progressive increasing shortness of breath. With a progressive nonproductive cough. Some fever and chills. No vomiting or diarrhea. The shortness of breath is moderate to severe. Is worse with exertion and better with rest. No known radiation of the symptoms. - Related Data Allergies/Adverse Reactions: No Known Allergies Allergy (Verified 10/21/19 18:10) Past Medical History - General Information source: Patient - Social History Smoking Status: Never Smoker Chew tobacco use (# tins/day): No Frequency of alcohol use: Rare Drug Abuse: None Family History: Reviewed & Not Pertinent Patient has suicidal ideation: No Patient has homicidal ideation: No Pulmonary Medical History: Reports: Hx Asthma, Hx Bronchitis GI Medical History: Reports: Hx Gastroesophageal Reflux Disease, Hx Irritable Bowel - constipation Musculoskeletal Medical History: Reports Hx Arthritis, Reports Hx Musculoskeletal Trauma Psychiatric Medical History: Reports: Hx Anxiety, Hx Bipolar Disorder, Hx Depression, Hx Personality Disorder, Hx Schizoaffective Disorder, Hx S chizophrenia Traumatic Medical History: Reports: Hx Fractures - Finger fracture Past Surgical History: Reports: Hx Abdominal Surgery, Hx Appendectomy, Hx Cholecystectomy, Hx Orthopedic Surgery - Immunizations Immunizations up to date: Yes Hx Diphtheria, Pertussis, Tetanus Vaccination: Yes - 2012 Hx Pneumococcal Vaccination: 08/23/00 Review of Systems - Review of Systems Constitutional: Chills, Fever, Malaise, Weakness, Recent illness Cardiovascular: denies: Chest pain, Palpitations Respiratory: Cough, Short of breath -: Yes All other systems reviewed and negative Physical Exam - Vital signs Vitals: Temp Pulse Resp BP Pulse Ox 98.3 F 80 24 H 119/66 93 10/25/19 07:17 10/25/19 07:17 10/25/19 07:17 10/25/19 07:17 10/25/19 07:17 Interpretation: Tachycardic, Tachypneic - General General appearance: Appears well, Alert In distress: Mild - Respiratory - HEENT Head: Normocephalic, Atraumatic Eyes: Normal Pupils: PERRL - Respiratory Respiratory status: Respiratory distress - Mild, Tachypnea Chest status: Nontender Breath sounds: Normal, Decreased air movement, Wheezing Chest palpation: Normal - Cardiovascular Rhythm: Tachycardia Heart sounds: Normal auscultation Murmur: No - Abdominal Inspection: Normal Distension: No distension Bowel sounds: Normal Tenderness: Nontender Organomegaly: No organomegaly - Back Back: Normal, Nontender - Extremities General upper extremity: Normal inspection, Nontender, Normal color, Normal ROM, Normal temperature General lower extremity: Normal inspection, Nontender, Normal color, Normal ROM, Normal temperature, Normal weight bearing. No: Esdras's sign - Neurological Neuro grossly intact: Yes Cognition: Normal Orientation: AAOx4 [place] Coma Scale Eye Opening: Spontaneous [place] Coma Scale Verbal: Oriented [place] Coma Scale Motor: Obeys Commands Jasmin Coma Scale Total: 15 Speech: Normal Motor strength normal: LUE, RUE, LLE, RLE Sensory: Normal - Psychological Associated symptoms: Normal affect, Normal mood - Skin Skin Temperature: Warm Skin Moisture: Dry Skin Color: Normal Course - Re-evaluation Re-evalutation: 10/25/19 10:51 Patient presented with some mild respiratory distress and cough as well as wheezing. After steroids and albuterol treatment he has had significant improvement. I do not appreciate any wheezing at this time. He did ambulate about the emergency department and had a saturation of 97% on room air after ambulation. Patient's laboratories are essentially unremarkable and stable when compared to previous laboratories. Patient's chest x-ray shows no evidence of pneumonia. I am going to add an antibiotic to the patient's regimen and have the patient follow-up as an outpatient. - Vital Signs Vital signs: Temp Pulse Resp BP Pulse Ox 98.0 F 80 16 96/58 L 100 10/25/19 07:45 10/25/19 07:17 10/25/19 10:01 10/25/19 10:01 10/25/19 10:01 - Laboratory Result Diagrams: 10/25/19 07:58 10/25/19 07:58 Laboratory results interpreted by me: 10/25/19 07:58 WBC 3.5 L RDW 14.4 H Seg Neuts % (Manual) 22 L Monocytes % (Manual) 0 L Eosinophils % (Manual) 36 H Abs Neuts (Manual) 0.8 L Abs Monocytes (Manual) 0.0 L Absolute Eos (Manual) 1.3 H - Diagnostic Test Radiology reviewed: Image reviewed, Reports reviewed Discharge - Discharge Clinical Impression: Acute asthma exacerbation Qualifiers: Asthma severity: moderate Asthma persistence: persistent Qualified Code(s): J45.41 - Moderate persistent asthma with (acute) exacerbation Asthma exacerbation Qualifiers: Asthma severity: moderate Asthma persistence: persistent Qualified Code(s): J45.41 - Moderate persistent asthma with (acute) exacerbation Condition: Stable Disposition: HOME, SELF-CARE Instructions: Asthma ([facility]) Additional Instructions: Please follow-up with your family doctor as soon as possible Prescriptions: Sulfamethoxazole/Trimethoprim [Bactrim Ds Tablet] 1 each PO BID 7 Days #14 tablet Prednisone 50 mg PO DAILY 5 Days #25 tablet Referrals: GIANCARLO CHANCE MD [Primary Care Provider] - Follow up tomorrow
[2019-10-25 08:37] LABS: ABSOLUTE LYMPHOCYTES# (MANUAL) 1.4 10^3/uL (0.5-4.7); BASOPHILS % (MANUAL) 2 % (0-2); EOSINOPHILS % (MANUAL) 36 % (0-6); LYMPHOCYTES % (MANUAL) 32 % (13-45); MONOCYTES % (MANUAL) 0 % (3-13); SEGMENTED NEUTROPHILS % (MAN) 22 % (42-78); TOTAL CELLS COUNTED 100
[2019-10-25 08:38] LABS: ALKALINE PHOSPHATASE 63 U/L (38-126); ANION GAP 7 (5-19); ASPARTATE AMINO TRANSFERASE 23 U/L (17-59); BILIRUBIN,DIRECT 0.1 mg/dL (0.0-0.4); BLOOD UREA NITROGEN 15 mg/dL (7-20); CALCIUM 8.9 mg/dL (8.4-10.2); CARBON DIOXIDE 30 mmol/L (22-30); CHLORIDE 106 mmol/L (98-107); GLUCOSE 80 mg/dL (75-110); POTASSIUM 4.3 mmol/L (3.6-5.0); TOTAL PROTEIN 6.8 g/dL (6.3-8.2)
[2019-10-25 08:40] LABS: ANISOCYTOSIS SLIGHT
[2019-10-25 08:41] LABS: PLATELET COMMENT ADEQUATE
--- NOTE | 2019-10-25 09:00 | RADIOLOGY REPORT (SQ) ---
EXAM DESCRIPTION: CHEST 2 VIEWS COMPLETED DATE/TIME: 10/25/2019 7:38 am REASON FOR STUDY: cough COMPARISON: 10/20/2019 EXAM PARAMETERS: NUMBER OF VIEWS: two views TECHNIQUE: Digital Frontal and Lateral radiographic views of the chest acquired. RADIATION DOSE: NA LIMITATIONS: none FINDINGS: LUNGS AND PLEURA: Lungs are hyperinflated. No focal consolidation or pleural effusion. N o pneumothorax. MEDIASTINUM AND HILAR STRUCTURES: No masses or contour abnormalities. HEART AND VASCULAR STRUCTURES: Heart normal size. No evidence for failure. BONES: No acute findings. HARDWARE: None in the chest. OTHER: No other significant finding. IMPRESSION: No acute cardiopulmonary disease. TECHNICAL DOCUMENTATION: JOB ID: [id number] 2010 [employer]- All Rights Reserved Reading location - IP/workstation name: [email or web address]
[2019-10-25 09:09] LABS: A TYPE INFLUENZA AG NEGATIVE (NEGATIVE); B INFLUENZA AG NEGATIVE (NEGATIVE)
[2019-10-25] MEDS ORDERED: CEFTRIAXONE 2 GM/D5W RTU 2 GM/50 ML RTUPB IV ONE (10:57)
[2019-10-25 11:09] VITALS: BP 101/59
== END 2019-10-25 11:53 | disposition home or self-care (01) ==
LOC: ER 07:08
DX: J45.41 Moderate persistent asthma with (acute) exacerbation (principal); Z90.49 Acquired absence of other specified parts of digestive tract; R53.1 Weakness
CPT/HCPCS: 94640; 99283; 96375; 96365; 36415; 85025; 80053; 87804; 83880; 71046; J2930; J7030; J7620; J0696

== ENCOUNTER 2019-10-25 19:20 | Emergency (ER) | payer MEDICAID ==
[2019-10-25 19:28] VITALS: BP 122/80
--- NOTE | 2019-10-25 20:44 | ER Document Report ---
HPI - HPI Time Seen by Provider: 10/25/19 20:36 Pain Level: 2 Notes: CHIEF COMPLAINT: Chest pain HPI: 34-year-old male who is in the emergency department essentially every day presenting to the emergency department for evaluation of 3 to 4 seconds of chest pain in the right chest today. Was diagnosed with an upper respiratory infection in the last 1 to 2 days is on antibiotics and steroids. Has been coughing. Pain is not reproducible. He has no pain at this time. No fever. No shortness of breath ROS: See HPI - all other systems were reviewed and are otherwise negative Constitutional: no fever Eyes: no drainage, no blurred vision ENT: no runny nose, no sore throat Cardiovascular: + chest pain Resp: no SOB, no cough GI: no vomiting, no diarrhea, no abdominal pain : no dysuria Integumentary: no rash Allergy: no hives Musculoskeletal: no extremity pain or swelling Neurological: no numbness/tingling, no weakness MEDICATIONS: I agree with the patient medications as charted by the RN. ALLERGIES: I agree with the allergies as charted by the RN. PAST MEDICAL HISTORY/PAST SURGICAL HISTORY: Reviewed and agree as charted by RN. SOCIAL HISTORY: Reviewed and agree as charted by RN. FAMILY HISTORY: No significant familial comorbid conditions directly related to patient complaint EXAM: Reviewed vital signs as charted by RN. CONSTITUTIONAL: Alert and oriented and responds appropriately to questions. Well-appearing; well-nourished, no acute distress HEAD: Normocephalic; atraumatic EYES: PERRL; Conjunctivae clear, sclerae non-icteric ENT: normal nose; no rhinorrhea; moist mucous membranes; pharynx without lesions noted, no uvula edema or deviation, no tonsillar hypertrophy, phonation normal NECK: Supple without meningismus; non-tender; no cervical lymphadenopathy, no masses CARD: RRR; no murmurs, no clicks, no rubs, no gallops; symmetric distal pulses RESP: Normal chest excursion without splinting or tachypnea; breath sounds clear and equal bilaterally; no wheezes, no rhonchi, no rales, pulse oximetry 99% on room air not hypoxic no reproducible pain at this time ABD/GI: Normal bowel sounds; non-distended; soft, non-tender, no rebound, no guarding; no palpable organomegaly or masses. BACK: The back appears normal and is non-tender to palpation, there is no CVA tenderness EXT: Normal ROM in all joints; non-tender to palpation; no cyanosis, no effusions, no edema SKIN: Normal color for age and race; warm; dry; good turgor; no acute lesions noted NEURO: Moves all extremities equally; Motor and sensory function intact PSYCH: The patient's mood and manner are appropriate. Grooming and personal hygiene are appropriate. MDM: 34-year-old male presenting with a 3 to 4-second episode of right chest pain today. Diagnosed recently with upper respiratory symptoms. EKG shows a sinus rhythm without significant ectopy. There is no change from his EKG dated July 04, 2019. Do not believe patient has ST elevation has been reviewed by the attending physicians here who do not believe patient has ST elevation. He is low risk for ACS. Has had no discomfort in the emergency department. Likely costochondral from his coughing episodes recently. Patient will be given return instructions - REPRODUCTIVE Reproductive: DENIES: : Past Medical History - Social History Smoking Status: Never Smoker Family History: Reviewed & Not Pertinent Patient has suicidal ideation: No Patient has homicidal ideation: No Pulmonary Medical History: Reports: Hx Asthma, Hx Bronchitis GI Medical History: Reports: Hx Gastroesophageal Reflux Disease, Hx Irritable Bowel - constipation Musculoskeletal Medical History: Reports Hx Arthritis, Reports Hx Musculoskeletal Trauma Psychiatric Medical History: Reports: Hx Anxiety, Hx Bipolar Disorder, Hx Dep ression, Hx Personality Disorder, Hx Schizoaffective Disorder, Hx Schizophrenia Traumatic Medical History: Reports: Hx Fractures - Finger fracture Past Surgical History: Reports: Hx Abdominal Surgery, Hx Appendectomy, Hx Cholecystectomy, Hx Orthopedic Surgery - Immunizations Immunizations up to date: Yes Hx Diphtheria, Pertussis, Tetanus Vaccination: Yes - 2012 Hx Pneumococcal Vaccination: 08/23/00 Vertical Provider Document - INFECTION CONTROL TRAVEL OUTSIDE OF THE [place] IN LAST 30 DAYS: No Course - Vital Signs Vital signs: Temp Pulse Resp BP Pulse Ox 98.3 F 85 20 122/80 99 10/25/19 19:28 10/25/19 19:28 10/25/19 19:28 10/25/19 19:28 10/25/19 19:28 Discharge - Discharge Clinical Impression: Chest pain, atypical Condition: Stable Disposition: HOME, SELF-CARE Additional Instructions: Follow-up with your primary care provider in the office tomorrow for reevaluation of symptoms Referrals: GIANCARLO CHANCE MD [Primary Care Provider] - Follow up as needed
--- NOTE | 2019-10-26 07:29 | EKG REPORT ---
SEVERITY:- NORMAL ECG - SINUS RHYTHM ST ELEV, PROBABLE NORMAL EARLY REPOL PATTERN : Confirmed by: Rasta Root MD 26-Oct-2019 07:28:20
== END 2019-10-25 20:45 | disposition home or self-care (01) ==
LOC: ER 19:20
DX: R07.89 Other chest pain (principal); Z90.49 Acquired absence of other specified parts of digestive tract
CPT/HCPCS: 93005; 93010; 99284

== ENCOUNTER 2019-10-25 22:21 | Emergency (ER) | payer MEDICAID ==
[2019-10-25 22:27] VITALS: BP 122/75
--- NOTE | 2019-10-25 23:14 | ER Document Report ---
HPI - HPI Time Seen by Provider: 10/25/19 23:11 Pain Level: 2 Context: Patient is a 34-year-old male that comes to the emergency department for chief complaint of right groin pain. He states that he thinks he strained when he was getting on his bike earlier today. He denies any trauma, he can walk without difficulty, he does report some pain when he moves it. He denies fever, nausea, vomiting, abdominal pain, or any other complaints. He states he also wants to be told about his blood counts that he got earlier today. Patient states that he was wheezing and having asthma exacerbation before but he denies this now. Past medical history of schizophrenia as well. - REPRODUCTIVE Reproductive: DENIES: : Past Medical History - General Information source: Patient - Social History Smoking Status: Never Smoker Frequency of alcohol use: None Drug Abuse: None Lives with: Family Family History: Reviewed & Not Pertinent Patient has suicidal ideation: No Patient has homicidal ideation: No Pulmonary Medical History: Reports: Hx Asthma, Hx Bronchitis GI Medical History: Reports: Hx Gastroesophageal Reflux Disease, Hx Irritable Bowel - constipation Musculoskeletal Medical History: Reports Hx Arthritis, Reports Hx Musculoskeletal Trauma Psychiatric Medical History: Reports: Hx Anxiety, Hx Bipolar Disorder, Hx Depression, Hx Personality Disorder, Hx Schizoaffective Disorder, Hx Schizophrenia Traumatic Medical History: Reports: Hx Fractures - Finger fracture Past Surgical History: Reports: Hx Abdominal Surgery, Hx Appendectomy, Hx Cholecystectomy, Hx Orthopedic Surgery - Immunizations Immunizations up to date: Yes Hx Diphtheria, Pertussis, Tetanus Vaccination: Yes - 2012 Hx Pneumococcal Vaccination: 08/23/00 Vertical Provider Document - CONSTITUTIONAL General Appearance: WD/WN, No Apparent Distress - INFECTION CONTROL TRAVEL OUTSIDE OF THE [place] IN LAST 30 DAYS: No - HEENT HEENT: Atraumatic, Normal ENT Exam, Normocephalic - NECK Neck: Normal Inspection - RESPIRATORY Respiratory: Breath Sounds Normal, No Respiratory Distress - CARDIOVASCULAR Cardiovascular: Regular Rate, Regular Rhythm - GI/ABDOMEN Gastrointestinal: Abdomen Soft, Abdomen Non-Tender. negative: Abdomen Tender - BACK Back: Normal Inspection - MUSCULOSKELETAL/EXTREMETIES Musculoskeletal/Extremeties: RIGO MCBRIDE, Tender - Patient has mild tenderness with palpation over the right proximal thigh, also his pain is reproducible with range of motion at the hip. Patient ambulates without difficulty or limp however. Pain is very minimal. No swelling, erythema, significant tenderness. Normal distal neurovascular exam - NEURO Level of Consciousness: Awake, Alert, Appropriate Motor/Sensory: No Motor Deficit, No Sensory Deficit - DERM Integumentary: Warm, Dry, No Rash Course - Re-evaluation Re-evalutation: Patient with pain in range of motion movements of the right hip and pain with palpation which is very mild. No injury, no other complaints, smiling and well- appearing. Denies genital pain, abdomen appears soft and benign although is limited by seated position. I discussed his previous lab work-up including his elevated eosinophils, he states he was already prescribed steroids. This will also help with his thigh. He is asking about recommendations for helping him sleep. I suspect his sleep difficulties are because of intermittent steroids. Patient very satisfied at this, states he is ready to leave, smiling and well- appearing, no additional complaints. Ambulated out of the exam room without any difficulty. - Vital Signs Vital signs: Temp Pulse Resp BP Pulse Ox 98.4 F 78 20 122/75 98 10/25/19 22:26 10/25/19 22:26 10/25/19 22:26 10/25/19 22:26 10/25/19 22:26 Discharge - Discharge Clinical Impression: Right groin pain Condition: Stable Disposition: HOME, SELF-CARE Additional Instructions: Your evaluation is most consistent with strain of the right groin. This should simply resolve with time. Over the first day you can ice this, after this heat helps more. Do gentle stretches and massage. The steroids you have been prescribed should help this resolve with time. For sleep consider [id number] medications such as diphenhydramine, melatonin, etc. Follow-up with primary care for additional management. Return if you work including developing difficulty breathing, spiking fever, swelling or increased pain at the hip, pain in your genitals, abdominal pain, or any other concerning symptoms. Referrals: GIANCARLO CHANCE MD [Primary Care Provider] - Follow up as needed
== END 2019-10-25 23:12 | disposition home or self-care (01) ==
LOC: ER 22:21
DX: R10.30 Lower abdominal pain, unspecified (principal); R06.2 Wheezing; Z90.49 Acquired absence of other specified parts of digestive tract
CPT/HCPCS: 99283

== ENCOUNTER 2019-10-26 05:30 | Emergency (ER) | payer MEDICAID ==
[2019-10-26] MEDS ORDERED: IPRATROPIUM/ALBUTEROL 0.5-2.5 MG/3 ML AMPUL NEB ONE (06:09)
[2019-10-26] MEDS ORDERED: PREDNISONE 20 MG TABLET PO ONE (06:10)
--- NOTE | 2019-10-26 06:13 | ER Document Report ---
ED Respiratory Problem - General Chief Complaint: Asthma Exacerbation Stated Complaint: COUGHING AND WHEEZING Time Seen by Provider: 10/26/19 05:50 Primary Care Provider: GIANCARLO CHANCE MD [Primary Care Provider] - Follow up tomorrow Notes: Patient is a 34-year-old male that comes emergency department for chief complaint of coughing and wheezing. He states he was given a dose of steroids yesterday, was doing well until this morning when he woke up and he started coughing and wheezing. I actually saw the patient last night and he had no wheezing, cough, or respiratory complaints at that time. Patient has no other complaints at this time including groin pain when I saw him for what was most likely a groin strain. He denies chest pain, fever. Patient has a known history of asthma, he does not smoke, he also has a history of schizophrenia and is here usually multiple times a day. TRAVEL OUTSIDE OF THE [place] IN LAST 30 DAYS: No - Related Data Allergies/Adverse Reactions: No Known Allergies Allergy (Verified 10/21/19 18:10) Past Medical History - General Information source: Patient - Social History Smoking Status: Never Smoker Chew tobacco use (# tins/day): No Frequency of alcohol use: None Drug Abuse: None Lives with: Alone Family History: Reviewed & Not Pertinent Patient has suicidal ideation: No Patient has homicidal ideation: No Pulmonary Medical History: Reports: Hx Asthma, Hx Bronchitis GI Medical History: Reports: Hx Gastroesophageal Reflux Disease, Hx Irritable Bowel - constipation Musculoskeletal Medical History: Reports Hx Arthritis, Reports Hx Musculos keletal Trauma Psychiatric Medical History: Reports: Hx Anxiety, Hx Bipolar Disorder, Hx Depression, Hx Personality Disorder, Hx Schizoaffective Disorder, Hx Schizophrenia Traumatic Medical History: Reports: Hx Fractures - Finger fracture Past Surgical History: Reports: Hx Abdominal Surgery, Hx Appendectomy, Hx Cholecystectomy, Hx Orthopedic Surgery - Immunizations Immunizations up to date: Yes Hx Diphtheria, Pertussis, Tetanus Vaccination: Yes - 2012 Hx Pneumococcal Vaccination: 08/23/00 Review of Systems - Review of Systems Constitutional: No symptoms reported EENT: No symptoms reported Cardiovascular: No symptoms reported Respiratory: See HPI Gastrointestinal: No symptoms reported Genitourinary: No symptoms reported Male Genitourinary: No symptoms reported Musculoskeletal: No symptoms reported Skin: No symptoms reported Hematologic/Lymphatic: No symptoms reported Neurological/Psychological: No symptoms reported Physical Exam - Vital signs Vitals: Temp Pulse Resp BP Pulse Ox 98.6 F 64 20 119/65 94 10/26/19 05:56 10/26/19 05:56 10/26/19 05:56 10/26/19 05:56 10/26/19 05:56 - Notes Notes: GENERAL: Alert, interacts well. No acute distress. HEAD: Normocephalic, atraumatic. EYES: Pupils equal, round, and reactive to light. Extraocular movements intact. ENT: Oral mucosa moist, tongue midline. Oropharynx unremarkable. Airway patent. NECK: Full range of motion. Supple. Trachea midline. LUNGS: Occasional tight cough, expiratory wheezes throughout. Speaks in full sentences. No labored breathing or respiratory distress. HEART: Regular rate and rhythm. No murmur ABDOMEN: Soft, non-tender. Non-distended. EXTREMITIES: Moves all 4 extremities spontaneously. No edema, normal radial and dorsalis pedis pulses bilaterally. No cyanosis. BACK: no cervical, thoracic, lumbar midline tenderness. No saddle anesthesia, normal distal neurovascular exam. Moves all extremities in full range of motion. NEUROLOGICAL: Alert and oriented x3. Normal speech. Cranial nerves II through XII grossly intact. PSYCH: Normal affect, normal mood. SKIN: Warm, dry, normal turgor. No rashes or lesions noted. Course - Re-evaluation Re-evalutation: On initial exam patient with slightly borderline oxygen saturations, occasional coughing, obvious expiratory wheezing. However he is speaking in full sentences, has no labored breathing, no signs of distress. He is still smiling and well-appearing. After DuoNeb's, prednisone, reevaluated patient, wheezing completely gone, patient walking around the room, happy, animated, states gratefulness. Patient with no current respiratory symptoms. Patient has already been prescribed steroids and has not started taking them yet reportedly. He is asking for a spacer but denies needing an inhaler refill. Patient will be discharged with follow-up instructions and return precautions which were discussed. Patient states appreciation and agreement. Stable at time of discharge. - Vital Signs Vital signs: Temp Pulse Resp BP Pulse Ox 98.6 F 61 18 116/62 95 10/26/19 07:11 10/26/19 07:11 10/26/19 07:11 10/26/19 07:11 10/26/19 07:11 Discharge - Discharge Clinical Impression: Asthma exacerbation Qualifiers: Asthma severity: mild Asthma persistence: intermittent Qualified Code(s): J45.21 - Mild intermittent asthma with (acute) exacerbation Condition: Stable Disposition: HOME, SELF-CARE Additional Instructions: You were seen and treated for an asthma exacerbation. Fill and take your steroids. Use the albuterol inhaler and the spacer. Follow- up with primary care. Come back if you are worse including fevers, difficulty breathing, or any other concerning symptoms. Referrals: GIANCARLO CHANCE MD [Primary Care Provider] - Follow up tomorrow
[2019-10-26 07:12] VITALS: BP 116/62
== END 2019-10-26 07:12 | disposition home or self-care (01) ==
LOC: ER 05:30
DX: J45.21 Mild intermittent asthma with (acute) exacerbation (principal); R05 Cough
CPT/HCPCS: 94640; 99283; J7512; J7620

== ENCOUNTER 2019-10-26 21:58 | Emergency (ER) | payer MEDICAID ==
--- NOTE | 2019-10-26 22:41 | ER Document Report ---
HPI - HPI Time Seen by Provider: 10/26/19 22:35 Notes: Patient is a 34-year-old male well-known emergency department presents for evaluation to the area where he had blood drawn last night. Patient states that the Band-Aid came off before the scab was healed and he wanted it evaluated for possible infection. He has not had any pain or discomfort to the site. He has not noticed any redness or drainage. No streaks. Denies drug allergies. Denies any headache, fever, neck pain, URI, sore throat, chest pain, palpitations, syncope, cough, shortness of breath, wheeze, dyspnea, abdominal pain, nausea/vomiting/diarrhea, urinary retention, dysuria, hematuria, loss of control of bowel or bladder, numbness/tingling, saddle anesthesia, muscle paralysis/weakness, or rash. - ROS Systems Reviewed and Negative: Yes All other systems reviewed and negative - REPRODUCTIVE Reproductive: DENIES: : Past Medical History - Social History Smoking Status: Never Smoker Family History: Reviewed & Not Pertinent Pulmonary Medical History: Reports: Hx Asthma, Hx Bronchitis GI Medical History: Reports: Hx Gastroesophageal Reflux Disease, Hx Irritable Bowel - constipation Musculoskeletal Medical History: Reports Hx Arthritis, Reports Hx Musculoskelet al Trauma Psychiatric Medical History: Reports: Hx Anxiety, Hx Bipolar Disorder, Hx Depression, Hx Personality Disorder, Hx Schizoaffective Disorder, Hx Schizophrenia Traumatic Medical History: Reports: Hx Fractures - Finger fracture Past Surgical History: Reports: Hx Abdominal Surgery, Hx Appendectomy, Hx Cholecystectomy, Hx Orthopedic Surgery - Immunizations Immunizations up to date: Yes Hx Diphtheria, Pertussis, Tetanus Vaccination: Yes - 2012 Hx Pneumococcal Vaccination: 08/23/00 Vertical Provider Document - CONSTITUTIONAL Agree With Documented VS: Yes Notes: PHYSICAL EXAMINATION: GENERAL: Well-appearing, well-nourished and in no acute distress. LUNGS: Breath sounds clear to auscultation bilaterally and equal. No wheezes rales or rhonchi. HEART: Regular rate and rhythm without murmurs, rubs, gallops. Musculoskeletal: Rt arm: FROM to passive/active. Strength 5+/5. N/V intact distal. Extremities: No cyanosis, clubbing, or edema b/l. Peripheral pulses 2+. Capillary refill less than 3 seconds. NEUROLOGICAL: Normal speech, normal gait. Normal sensory, motor exams PSYCH: Normal mood, normal affect. SKIN: Rt anterolateral forearm does have a very small pinpoint ecchymotic area where blood was drawn recently. No palpable cord, tenderness, induration, fluctuance, streaks, purulence noted. - INFECTION CONTROL TRAVEL OUTSIDE OF THE [place] IN LAST 30 DAYS: No Course - Re-evaluation Re-evalutation: 10/26/19 22:40 Patient is an afebrile, well-hydrated, 34-year-old male who presents for a worried well visit. Vitals are acceptable. PE is otherwise unremarkable. There is no evidence of superimposed infection or superficial venous thrombosis/deep vein thrombosis. No work-up warranted at this time. Low suspicion for any other systemic or emergent condition. Patient is nontoxic- appearing. Patient recheck with his PCM next week. Return to the ED with any other worsening/concerning symptoms. Patient is in agreement. - Vital Signs Vital signs: Temp Pulse Resp BP Pulse Ox 98.6 F 65 20 107/78 100 10/26/19 22:07 10/26/19 22:07 10/26/19 22:07 10/26/19 22:07 10/26/19 22:07 Discharge - Discharge Clinical Impression: Worried well Condition: Stable Disposition: HOME, SELF-CARE Additional Instructions: Keep the skin clean Wash with soap and water Tylenol/ibuprofen if needed Triple antibiotic ointment daily Take medication as directed Monitor for any worsening symptoms Recheck with your PCM in 3-5 days Return to the ED with any worsening symptoms and/or development of fever, headache, chest pain, palpitations, syncope, shortness of breath, trouble breathing, abdominal pain, n/v/d, abscess, purulent discharge, red streaks, worsening swelling, or other worsening symptoms that are concerning to you. Referrals: GIANCARLO CHANCE MD [Primary Care Provider] - Follow up as needed
[2019-10-27 01:06] VITALS: BP 110/80
== END 2019-10-26 22:38 | disposition home or self-care (01) ==
LOC: ER 21:58
DX: Z71.1 Person with feared health complaint in whom no diagnosis is made (principal); J45.909 Unspecified asthma, uncomplicated; Z98.890 Other specified postprocedural states
CPT/HCPCS: 99283

== ENCOUNTER 2019-10-27 01:07 | Emergency (ER) | payer MEDICAID ==
[2019-10-27 03:30] VITALS: BP 127/77
--- NOTE | 2019-10-27 05:14 | ER Document Report ---
Entered by HETAL ENAMORADO SCRIBE 10/27/19 0313 Acting as scribe for:LENIN SOLIS MD ED General - General Chief Complaint: Other Stated Complaint: TROUBLE BREATHING Time Seen by Provider: 10/27/19 03:09 Primary Care Provider: GIANCARLO CHANCE MD [Primary Care Provider] - Follow up as needed Mode of Arrival: Ambulatory Information source: Patient Notes: This 34 year old male patient well known to the ED presents today with complaints of moisture in the spacer for his inhaler. Patient states that he is worried that "water would get in my lungs". Patient was shown a demonstration of removing the cap off the inhaler when it is not in use so the moisture could evaporate. TRAVEL OUTSIDE OF THE [place] IN LAST 30 DAYS: No - Related Data Allergies/Adverse Reactions: No Known Allergies Allergy (Verified 10/31/19 00:01) Past Medical History - General Information source: Patient, [facility] Records - Social History Smoking Status: Unknown if Ever Smoked Cigarette use (# per day): No Chew tobacco use (# tins/day): No Smoking Education Provided: No Frequency of alcohol use: None Occupation: unemployed Lives with: Other Family History: Reviewed & Not Pertinent Patient has suicidal ideation: No Patient has homicidal ideation: No Pulmonary Medical History: Reports: Hx Asthma, Hx Bronchitis GI Medical History: Reports: Hx Gastroesophageal Reflux Disease, Hx Irritable Bowel - constipation Musculoskeletal Medical History: Reports Hx Arthritis, Reports Hx Musculos keletal Trauma Psychiatric Medical History: Reports: Hx Anxiety, Hx Bipolar Disorder, Hx Depression, Hx Personality Disorder, Hx Schizoaffective Disorder, Hx Schizophrenia Traumatic Medical History: Reports: Hx Fractures - Finger fracture Past Surgical History: Reports: Hx Abdominal Surgery, Hx Appendectomy, Hx Cholecystectomy, Hx Orthopedic Surgery - Immunizations Immunizations up to date: Yes Hx Diphtheria, Pertussis, Tetanus Vaccination: Yes - 2012 Hx Pneumococcal Vaccination: 08/23/00 Review of Systems - Review of Systems Constitutional: See HPI, Other - Moisture in spacer for inhaler EENT: No symptoms reported Cardiovascular: No symptoms reported Respiratory: No symptoms reported Gastrointestinal: No symptoms reported Genitourinary: No symptoms reported Male Genitourinary: No symptoms reported Musculoskeletal: No symptoms reported Skin: No symptoms reported Hematologic/Lymphatic: No symptoms reported Neurological/Psychological: No symptoms reported -: Yes All other systems reviewed and negative Physical Exam - Vital signs Vitals: Temp Pulse Resp BP Pulse Ox 97.9 F 60 18 121/73 99 10/27/19 01:13 10/27/19 01:13 10/27/19 01:13 10/27/19 01:13 10/27/19 01:13 Interpretation: Normal - General General appearance: Appears well, Alert In distress: None - HEENT Head: Normocephalic, Atraumatic Eyes: Normal Pupils: PERRL - Respiratory Respiratory status: No respiratory distress Chest status: Nontender Breath sounds: Normal Chest palpation: Normal - Cardiovascular Rhythm: Regular Heart sounds: Normal auscultation Murmur: No - Abdominal Inspection: Normal Distension: No distension Bowel sounds: Normal Tenderness: Nontender Organomegaly: No organomegaly - Back Back: Normal, Nontender - Extremities General upper extremity: Normal inspection General lower extremity: Normal inspection - Neurological Neuro grossly intact: Yes - Psychological Associated symptoms: Normal affect, Normal mood - Skin Skin Temperature: Warm Skin Moisture: Dry Skin Color: Normal Course - Vital Signs Vital signs: Temp Pulse Resp BP Pulse Ox 98 F 51 L 16 127/77 H 98 10/27/19 03:29 10/27/19 03:29 10/27/19 03:29 10/27/19 03:29 10/27/19 03:29 Discharge - Discharge Clinical Impression: Deficient knowledge of inhaler user Condition: Stable Disposition: HOME, SELF-CARE Additional Instructions: Leave the Off of your inhaler when you notice moisture inside it. Leave the inhaler out of the spacer when you notice moisture inside the spacer. RETURN TO THE EMERGENCY ROOM IF ANY NEW OR WORSENING SYMPTOMS. Referrals: GIANCARLO CHANCE MD [Primary Care Provider] - Follow up as needed I personally performed the services described in the documentation, reviewed and edited the documentation which was dictated to the scribe in my presence, and it accurately records my words and actions.
== END 2019-10-27 03:31 | disposition home or self-care (01) ==
LOC: ER 01:07
DX: Z76.89 Persons encountering health services in other specified circumstances (principal); Z90.49 Acquired absence of other specified parts of digestive tract
CPT/HCPCS: 99283

== ENCOUNTER 2019-10-30 19:58 | Emergency (ER) | payer MEDICAID ==
--- NOTE | 2019-10-30 20:43 | ER Document Report ---
ED GI/ - General Chief Complaint: Abdominal Pain Stated Complaint: ABDOMINAL PAIN Time Seen by Provider: 10/30/19 20:36 Primary Care Provider: GIANCARLO CHANCE MD [Primary Care Provider] - Follow up in 3-5 days Mode of Arrival: Ambulatory Information source: Patient Notes: 34-year-old male presented to ED for some abdominal pain earlier. States he states that he thinks is just gas pain but he just wanted to get it checked out. He does have active bowel sounds throughout his abdomen. He has no tenderness at this time. He states he will just drink some water like he usually does when he has this pain. I have instructed him if he gets any severe nausea vomiting any diarrhea or the pain increases or he develops a fever to please come back to the emergency room. He did verbalize understanding and agreement with this. TRAVEL OUTSIDE OF THE [place] IN LAST 30 DAYS: No - HPI Patient complains to provider of: Abdominal pain - patient states he has had some gas pain that has moved around in his abdomen today he has no pain at this time. He does have active bowel sounds. Onset: This afternoon Timing/Duration: Intermittent Quality of pain: Other - Gas pains Severity at maximum: Moderate Severity in ED: None Pain Level: 0 Location: Other - Acid feeling Exacerbated by: Denies Relieved by: Denies Similar symptoms previously: Yes Recently seen / treated by doctor: Yes - Related Data Allergies/Adverse Reactions: No Known Allergies Allergy (Verified 10/30/19 20:39) Past Medical History - General Information source: Patient - Social History Smoking Status: Never Smoker Frequency of alcohol use: None Drug Abuse: None Lives with: Alone Family History: Reviewed & Not Pertinent Patient has suicidal ideation: No Patient has homicidal ideation: No - Past Medical History Cardiac Medical History: Reports: None Pulmonary Medical History: Reports: Hx Asthma, Hx Bronchitis EENT Medical History: Reports: None Neurological Medical History: Reports: None Endocrine Medical History: Reports: None Renal/ Medical History: Reports: None Malignancy Medical History: Reports None GI Medical History: Reports: Hx Gastroesophageal Reflux Disease, Hx Irritable Bowel - constipation Musculoskeletal Medical History: Reports Hx Arthritis, Reports Hx Musculoskeletal Trauma Skin Medical History: Reports None Psychiatric Medical History: Reports: Hx Anxiety, Hx Bipolar Disorder, Hx Depression, Hx Personality Disorder, Hx Schizoaffective Disorder, Hx Schizophrenia Traumatic Medical History: Reports: Hx Fractures - Finger fracture Infectious Medical History: Reports: None Past Surgical History: Reports: Hx Abdominal Surgery, Hx Appendectomy, Hx Cholecystectomy, Hx Orthopedic Surgery - Immunizations Immunizations up to date: Yes Hx Diphtheria, Pertussis, Tetanus Vaccination: Yes - 2012 Hx Pneumococcal Vaccination: 08/23/00 Review of Systems - Review of Systems Constitutional: No symptoms reported EENT: No symptoms reported Cardiovascular: No symptoms reported Respiratory: No symptoms reported Gastrointestinal: Abdominal pain - Indigestion Genitourinary: No symptoms reported Male Genitourinary: No symptoms reported Musculoskeletal: No symptoms reported Skin: No symptoms reported Hematologic/Lymphatic: No symptoms reported Neurological/Psychological: No symptoms reported Physical Exam - Vital signs Vitals: Temp Pulse Resp BP Pulse Ox 99.0 F 108 H 16 145/59 H 95 10/30/19 20:09 10/30/19 20:09 10/30/19 20:09 10/30/19 20:09 10/30/19 20:09 Interpretation: Normal - General General appearance: Appears well, Alert - HEENT Head: Normocephalic, Atraumatic Eyes: Normal Pupils: PERRL - Respiratory Respiratory status: No respiratory distress Chest status: Nontender Breath sounds: Normal Chest palpation: Normal - Cardiovascular Rhythm: Regular Heart sounds: Normal auscultation Murmur: No - Abdominal Inspection: Normal Distension: No distension Bowel sounds: Hyperactive Tenderness: Nontender. No: Tender Organomegaly: No organomegaly - Back Back: Normal, Nontender - Extremities General upper extremity: Normal inspection, Nontender, Normal color, Normal ROM, Normal temperature General lower extremity: Normal inspection, Nontender, Normal color, Normal ROM, Normal temperature, Normal weight bearing. No: Esdras's sign - Neurological Neuro grossly intact: Yes Cognition: Normal Orientation: AAOx4 [place] Coma Scale Eye Opening: Spontaneous [place] Coma Scale Verbal: Oriented Jasmin Coma Scale Motor: Obeys Commands Jasmin Coma Scale Total: 15 Speech: Normal Motor strength normal: LUE, RUE, LLE, RLE Sensory: Normal - Psychological Associated symptoms: Normal affect, Normal mood - Skin Skin Temperature: Warm Skin Moisture: Dry Skin Color: Normal Course - Re-evaluation Re-evalutation: 10/30/19 20:43 Patient states he was having gas pains earlier but now his pain level is 0. He states he does have gas pain frequently and he knows to just drink more water - Vital Signs Vital signs: Temp Pulse Resp BP Pulse Ox 98.1 F 94 18 101/67 96 10/30/19 20:42 10/30/19 20:42 10/30/19 20:42 10/30/19 20:42 10/30/19 20:42 Discharge - Discharge Clinical Impression: Indigestion Condition: Stable Disposition: HOME, SELF-CARE Additional Instructions: ABDOMINAL PAIN: There are many causes of abdominal pain. Pain can mean a serious problem requiring surgery (such as appendicitis). It can also be an innocent problem that goes away on its own (such as a viral infection). Often, time must pass to determine the cause of pain. The physician does not feel that hospitalization is necessary, at present. Things may change within the next 24 hours. Call the doctor or come back for re- examination if any problems occur, such as: (1) Pain that becomes more severe, steady, or becomes concentrated in one specific area. Also, pain that is more severe with movement or coughing. (2) Vomiting that persists or becomes more frequent. (3) Blood in the vomitus, urine, or bowel movements. Blood in the stool may have a tarry or black appearance. (4) Shaking chills or fever greater than 100 degrees F. (5) The abdomen becomes more distended or swollen. (6) Bowel movements cease. (7) Failure to improve as expected. NORMAL EXAM AND WORKUP: At this time, your examination and workup show no significant abnormality. No significant abnormal physical findings are noted. All laboratory, EKG, and imaging (x-ray, CT scans, ultrasound) studies that were ordered show no significant abnormality. Although your examination and all studies that were ordered showed no significant abnormal finding, there are no examinations and no studies that are 100% accurate. There is always the possibility that some abnormality could exist and not be detected with physical examination or within the limits and capabilities of laboratory and other studies. You should return or follow up as you were instructed on your visit today for further evaluation if your symptoms do not resolve. FOLLOW-UP CARE: If you have been referred to a physician for follow-up care, call the physicians office for an appointment as you were instructed or within the next two days. If you experience worsening or a significant change in your symptoms, notify the physician immediately or return to the Emergency Department at any time for re-evaluation. Referrals: GIANCARLO CHANCE MD [Primary Care Provider] - Follow up in 3-5 days
[2019-10-30 20:44] VITALS: BP 101/67
== END 2019-10-30 20:46 | disposition home or self-care (01) ==
LOC: ER 19:58
DX: K30 Functional dyspepsia (principal); R10.9 Unspecified abdominal pain; Z90.49 Acquired absence of other specified parts of digestive tract
CPT/HCPCS: 99284

== ENCOUNTER 2019-10-30 22:44 | Emergency (ER) | payer MEDICAID ==
[2019-10-30 22:55] VITALS: BP 106/68
--- NOTE | 2019-10-31 01:13 | ER Document Report ---
Entered by HETAL ENAMORADO SCRIBE 10/31/19 0051 Acting as scribe for:MIKO GAN DO ED GI/ - General Chief Complaint: Vomiting Stated Complaint: VOMITING Time Seen by Provider: 10/31/19 00:37 Primary Care Provider: GIANCARLO CHANCE MD [Primary Care Provider] - Follow up as needed Mode of Arrival: Ambulatory Information source: Patient Notes: This 34 year old male patient presents to the ED today with complaints of nausea and x3 episodes of vomiting that occurred prior to arrival. Patient also reports cough and wants to get tested for the flu. Patient states that he lives alone in the [facility] and his bike is his mode of transportation. Patient denies nausea at this time, fever, diarrhea, visual hallucinations, or homicidal ideation. Patient notes that he doesn't take any medications for his anxiety, stating he prefers to distract himself with other things. Patient denies use of tobacco or illicit drugs. TRAVEL OUTSIDE OF THE [place] IN LAST 30 DAYS: No - Related Data Allergies/Adverse Reactions: No Known Allergies Allergy (Verified 10/31/19 00:01) Past Medical History - General Information source: Patient - Social History Smoking Status: Former Smoker Cigarette use (# per day): No Chew tobacco use (# tins/day): No Smoking Education Provided: No Drug Abuse: None Lives with: Alone Family History: Reviewed & Not Pertinent Patient has suicidal ideation: No Patient has homicidal ideation: No Pulmonary Medical History: Reports: Hx Asthma, Hx Bronchitis GI Medical History: Reports: Hx Gastroesophageal Reflux Disease, Hx Irritable Bowel - constipation Musculoskeletal Medical History: Reports Hx Arthritis, Reports Hx Musculoskeletal Trauma Psychiatric Medical History: Reports: Hx Anxiety, Hx Bipolar Disorder, Hx Depression, Hx Personality Disorder, Hx Schizoaffective Disorder, Hx Schizophrenia Traumatic Medical History: Reports: Hx Fractures - Finger fracture Past Surgical History: Reports: Hx Abdominal Surgery, Hx Appendectomy, Hx Cholecystectomy, Hx Orthopedic Surgery - Immunizations Immunizations up to date: Yes Hx Diphtheria, Pertussis, Tetanus Vaccination: Yes - 2012 Hx Pneumococcal Vaccination: 08/23/00 Review of Systems - Review of Systems Constitutional: See HPI. denies: Fever EENT: No symptoms reported Cardiovascular: No symptoms reported Respiratory: See HPI, Cough Gastrointestinal: See HPI, Nausea, Vomiting. denies: Diarrhea Genitourinary: No symptoms reported Male Genitourinary: No symptoms reported Musculoskeletal: No symptoms reported Skin: No symptoms reported Hematologic/Lymphatic: No symptoms reported Neurological/Psychological: See HPI. denies: Hallucinations, Homicidal ideation -: Yes All other systems reviewed and negative Physical Exam - Vital signs Vitals: Temp Pulse Resp BP Pulse Ox 99.5 F 102 H 16 106/68 95 10/30/19 22:52 10/30/19 22:52 10/30/19 22:52 10/30/19 22:52 10/30/19 22:52 - General General appearance: Alert, Other - Talks with a nasally voice. Malodorous. - HEENT Head: Normocephalic, Atraumatic Eyes: Normal Pupils: PERRL - Respiratory Respiratory status: No respiratory distress Chest status: Nontender Breath sounds: Normal Chest palpation: Normal - Cardiovascular Rhythm: Regular Heart sounds: Normal auscultation Murmur: No - Abdominal Inspection: Normal Distension: No distension Bowel sounds: Normal Tenderness: Nontender - Abdomen soft Organomegaly: No organomegaly - Back Back: Normal, Nontender - Extremities General upper extremity: Normal inspection General lower extremity: Normal inspection - Neurological Neuro grossly intact: Yes - Psychological Associated symptoms: Normal affect, Normal mood - Skin Skin Temperature: Warm Skin Moisture: Dry Skin Color: Normal Course - Re-evaluation Re-evalutation: 10/31/19 02:45 34 year old male with psychiatric illness is reportedly homeless. He is laughing and nontoxic here. No SI or HI certainly and I see no evidence of psychosis. Feel he can safely be discharged. - Vital Signs Vital signs: Temp Pulse Resp BP Pulse Ox 99.0 F 96 16 106/68 96 10/31/19 03:02 10/31/19 03:02 10/31/19 03:02 10/31/19 03:02 10/31/19 03:02 Discharge - Discharge Clinical Impression: Vomiting Qualifiers: Vomiting type: unspecified Vomiting Intractability: non-intractable Nausea presence: without nausea Qualified Code(s): R11.11 - Vomiting without nausea Condition: Good Disposition: HOME, SELF-CARE Instructions: Prescribed Antidiarrhea Medications ([facility]), Antinausea Medication ([facility]), Vomiting ([facility]) Additional Instructions: Clear liquids, rest, please return here for any problems or any concerns. Referrals: GIANCARLO CHANCE MD [Primary Care Provider] - Follow up as needed I personally performed the services described in the documentation, reviewed and edited the documentation which was dictated to the scribe in my presence, and it accurately records my words and actions.
[2019-10-31 01:37] LABS: A TYPE INFLUENZA AG NEGATIVE (NEGATIVE); B INFLUENZA AG NEGATIVE (NEGATIVE)
[2019-10-31] MEDS ORDERED: ONDANSETRON 4 MG TAB.RAPDIS PO ONE (01:42)
[2019-10-31] MEDS ORDERED: ONDANSETRON ODT 4 MG TAB (6 TAB/ER DISP) PO PRN (02:45)
== END 2019-10-31 03:02 | disposition home or self-care (01) ==
LOC: ER 22:44
DX: R11.2 Nausea with vomiting, unspecified (principal); R05 Cough; Z59.0 Homelessness; Z90.49 Acquired absence of other specified parts of digestive tract
CPT/HCPCS: 99283; 87804; S0119

== ENCOUNTER 2019-10-31 05:56 | Emergency (ER) | payer MEDICAID ==
--- NOTE | 2019-10-31 06:57 | ER Document Report ---
ED General - General Chief Complaint: Cough Stated Complaint: COUGH Time Seen by Provider: 10/31/19 06:56 Primary Care Provider: GIANCARLO CHANCE MD [Primary Care Provider] - Follow up as needed TRAVEL OUTSIDE OF THE [place] IN LAST 30 DAYS: No - HPI Patient complains to provider of: cough and SOB Notes: Well-appearing 34-year-old man. Presents with 2-day history increased work of breathing wheezing cough. Not sure he has a fever. Patient does have history of asthma. Denies any trauma or travel. Initially patient was mildly nauseous but that is markedly improved this time. - Related Data Allergies/Adverse Reactions: No Known Allergies Allergy (Verified 10/31/19 00:01) Past Medical History - Social History Smoking Status: Never Smoker Chew tobacco use (# tins/day): No Drug Abuse: None Family History: Reviewed & Not Pertinent Patient has suicidal ideation: No Patient has homicidal ideation: No Pulmonary Medical History: Reports: Hx Asthma, Hx Bronchitis GI Medical History: Reports: Hx Gastroesophageal Reflux Disease, Hx Irritable Bowel - constipation Musculoskeletal Medical History: Reports Hx Arthritis, Reports Hx Musculoskeletal Trauma Psychiatric Medical History: Reports: Hx Anxiety, Hx Bipolar Disorder, Hx Depression, Hx Personality Disorder, Hx Schizoaffective Disorder, Hx Schizophrenia Traumatic Medical History: Reports: Hx Fractures - Finger fracture Past Surgical History: Reports: Hx Abdominal Surgery, Hx Appendectomy, Hx Cholecystectomy, Hx Orthopedic Surgery - Immunizations Immunizations up to date: Yes Hx Diphtheria, Pertussis, Tetanus Vaccination: Yes - 2012 Hx Pneumococcal Vaccination: 08/23/00 Review of Systems - Review of Systems Notes: REVIEW OF SYSTEMS: CONSTITUTIONAL: -fevers, -chills EENT: -eye pain, -difficulty swallowing, -nasal congestion CARDIOVASCULAR: -chest pain, -syncope. RESPIRATORY: positive cough, positive SOB GASTROINTESTINAL: -abdominal pain, -nausea, -vomiting, -diarrhea GENITOURINARY: -dysuria, -hematuria MUSCULOSKELETAL: -back pain, -neck pain SKIN: -rash or skin lesions. HEMATOLOGIC: -easy bruising or bleeding. LYMPHATIC: -swollen, enlarged glands. NEUROLOGICAL: -altered mental status or loss of consciousness, -headache, -neurologic symptoms PSYCHIATRIC: -anxiety, -depression. ALL OTHER SYSTEMS REVIEWED AND NEGATIVE. Physical Exam - Vital signs Vitals: Temp Pulse Resp BP Pulse Ox 97.8 F 94 20 136/83 H 95 03/10/20 06:13 10/31/19 06:13 10/31/19 06:13 10/31/19 06:13 10/31/19 06:13 - Notes Notes: PHYSICAL EXAMINATION: GENERAL: Well-appearing, well-nourished and in severe acute distress. HEAD: Atraumatic, normocephalic. EYES: Pupils equal round and reactive to light, extraocular movements intact, sclera anicteric, conjunctiva are normal. ENT: nares patent, oropharynx clear without exudates. Moist mucous membranes. NECK: Normal range of motion, supple without lymphadenopathy LUNGS: Respiratory distress biphasic wheezing HEART: Regular rate and rhythm without murmurs ABDOMEN: Soft, nontender, normoactive bowel sounds. No guarding, no rebound. No masses appreciated. EXTREMITIES: Normal range of motion, no pitting or edema. No cyanosis. NEUROLOGICAL: Cranial nerves grossly intact. Normal speech, normal gait. Normal sensory and motor exams. PSYCH: Normal mood, normal affect. SKIN: Warm, Dry, normal turgor, no rashes or lesions noted. Course - Re-evaluation Re-evalutation: 10/31/19 07:10 Normally healthy 34-year-old male presents in respiratory distress. Will start aggressive respiratory management with numerous breathing treatments and steroids. 10/31/19 08:04 Multiple re-evaluations patient markedly improved at this time. Patient's chest x-rays no focal infiltrate or acute cardiopulmonary process. Will be discharged home with albuterol inhaler short course of oral steroids. Follow-up PCP return if anything changes - Vital Signs Vital signs: Temp Pulse Resp BP Pulse Ox 97.8 F 94 20 136/83 H 95 10/31/19 06:13 10/31/19 06:13 10/31/19 06:13 10/31/19 06:13 10/31/19 06:13 Critical Care Note - Critical Care Note Total time excluding time spent on procedures (mins): 32 Discharge - Discharge Clinical Impression: Asthma exacerbation Qualifiers: Asthma severity: unspecified severity Asthma persistence: unspecified Qualified Code(s): J45.901 - Unspecified asthma with (acute) exacerbation Condition: Stable Disposition: HOME, SELF-CARE Instructions: Asthma ([facility]) Prescriptions: Prednisone [Deltasone 20 mg Tablet] 2 tab PO DAILY 3 Days #6 tablet Referrals: GIANCARLO CHANCE MD [Primary Care Provider] - Follow up as needed
[2019-10-31] MEDS ORDERED: PREDNISONE 20 MG TABLET PO ONE (07:01)
[2019-10-31] MEDS ORDERED: IPRATROPIUM/ALBUTEROL 0.5-2.5 MG/3 ML AMPUL NEB ONE ×3 (07:01)
--- NOTE | 2019-10-31 08:01 | RADIOLOGY REPORT (SQ) ---
Chest 2 view on 10/31/2019 at 7:33 AM CLINICAL INDICATION: Cough COMPARISON: 10/25/2019 FINDINGS: The lungs are clear. Cardiac, hilar and mediastinal contours are within normal limits. Pulmonary vascularity is within normal limits. No bony abnormality is noted. IMPRESSION: No active disease.
[2019-10-31 08:16] VITALS: BP 132/68
== END 2019-10-31 08:16 | disposition home or self-care (01) ==
LOC: ER 05:56
DX: J45.901 Unspecified asthma with (acute) exacerbation (principal); R05 Cough; R06.02 Shortness of breath; R06.03 Acute respiratory distress
CPT/HCPCS: 94640; 99285; 71046; J7512; J7620

== ENCOUNTER 2019-11-01 18:22 | Emergency (ER) | payer MEDICAID ==
--- NOTE | 2019-11-01 20:12 | ER Document Report ---
ED Medical Screen (RME) - General Chief Complaint: Doesn't Feel Right Stated Complaint: POSSIBLE BLOOD POSIONING Time Seen by Provider: 11/01/19 20:06 Primary Care Provider: GIANCARLO CHANCE MD [Primary Care Provider] - Follow up as needed Mode of Arrival: Ambulatory Information source: Patient Notes: 34-year-old male presented to ED because he does not feel right after he ate a meat chicken today. He states that the peppers did not look right and soon afterwards he did not feel right. He states he did have a little bit of spit up but no large emesis. He states he has not had any fevers but is afraid he has some food poisoning after eating this McChicken. He is alert oriented respirations regular nonlabored speaking in full sentences. He states he really would like to get blood work done because he does not feel right. I have greeted and performed a rapid initial assessment of this patient. A comprehensive ED assessment and evaluation of the patient, analysis of test results and completion of medical decision making process will be conducted by an additional ED providers. TRAVEL OUTSIDE OF THE [place] IN LAST 30 DAYS: No - Related Data Allergies/Adverse Reactions: No Known Allergies Allergy (Verified 11/01/19 20:07) Past Medical History - Social History Family history: Reviewed & Not Pertinent Pulmonary Medical History: Reports: Hx Asthma, Hx Bronchitis GI Medical History: Reports: Hx Gastroesophageal Reflux Disease, Hx Irritable Bowel - constipation Musculoskeltal Medical History: Reports Hx Arthritis, Reports Hx Musculoskeletal Trauma Psychiatric Medical History: Reports: Hx Anxiety, Hx Bipolar Disorder, Hx Depression, Hx Personality Disorder, Hx Schizoaffective Disorder, Hx Schizophrenia Traumatic Medical History: Reports: Hx Fractures - Finger fracture Past Surgical History: Reports: Hx Abdominal Surgery, Hx Appendectomy, Hx Cholecystectomy, Hx Orthopedic Surgery - Immunizations Immunizations up to date: Yes Hx Diphtheria, Pertussis, Tetanus Vaccination: Yes - 2012 Physical Exam - Vital signs Vitals: Temp Pulse Resp BP Pulse Ox 98.5 F 92 18 118/71 97 11/01/19 19:04 11/01/19 19:04 11/01/19 19:04 11/01/19 19:04 11/01/19 19:04 Course - Vital Signs Vital signs: Temp Pulse Resp BP Pulse Ox 98.5 F 92 18 118/71 97 11/01/19 19:04 11/01/19 19:04 11/01/19 19:04 11/01/19 19:04 11/01/19 19:04 Doctor's Discharge - Discharge Referrals: GIANCARLO CHANCE MD [Primary Care Provider] - Follow up as needed
[2019-11-01 21:49] LABS: HEMOGLOBIN 14.1 g/dL (13.5-17.0); MEAN CORPUSCULAR HEMOGLOBIN 26.8 pg (27.0-33.4); MEAN CORPUSCULAR HGB CONC 32.8 g/dL (32.0-36.0); MEAN CORPUSCULAR VOLUME 82 fl (80-97); PLATELET COUNT 228 10^3/uL (150-450); RED BLOOD COUNT 5.25 10^6/uL (4.35-5.55); RED CELL DISTRIBUTION WIDTH 14.5 % (11.5-14.0); WHITE BLOOD COUNT 3.3 10^3/uL (4.0-10.5)
[2019-11-01 22:08] LABS: ALBUMIN 4.5 g/dL (3.5-5.0); ALKALINE PHOSPHATASE 66 U/L (38-126); ANION GAP 11 (5-19); ASPARTATE AMINO TRANSFERASE 24 U/L (17-59); BILIRUBIN,DIRECT 0.2 mg/dL (0.0-0.4); BILIRUBIN,TOTAL 1.5 mg/dL (0.2-1.3); BLOOD UREA NITROGEN 18 mg/dL (7-20); CALCIUM 9.2 mg/dL (8.4-10.2); CARBON DIOXIDE 30 mmol/L (22-30); CHLORIDE 101 mmol/L (98-107); GLUCOSE 85 mg/dL (75-110); POTASSIUM 4.3 mmol/L (3.6-5.0); TOTAL PROTEIN 7.6 g/dL (6.3-8.2)
[2019-11-01 22:12] LABS: ABSOLUTE LYMPHOCYTES# (MANUAL) 1.6 10^3/uL (0.5-4.7); ABSOLUTE MONOCYTES # (MANUAL) 0.2 10^3/uL (0.1-1.4); BASOPHILS % (MANUAL) 2 % (0-2); EOSINOPHILS % (MANUAL) 11 % (0-6); LYMPHOCYTES % (MANUAL) 48 % (13-45); MONOCYTES % (MANUAL) 7 % (3-13); SEGMENTED NEUTROPHILS % (MAN) 32 % (42-78); TOTAL CELLS COUNTED 100
[2019-11-01 22:14] LABS: PLATELET COMMENT ADEQUATE
--- NOTE | 2019-11-02 00:38 | ER Document Report ---
ED General - General Chief Complaint: Doesn't Feel Right Stated Complaint: POSSIBLE BLOOD POSIONING Time Seen by Provider: 11/01/19 20:06 Primary Care Provider: GIANCARLO CHANCE MD [Primary Care Provider] - Follow up as needed Mode of Arrival: Ambulatory Notes: 34-year-old male presents for "feeling weird" and having gas after eating a chicken sandwich earlier. Patient states he thought he saw a "weird pepper" and thinks he may have food poisoning. Patient denies any nausea/vomiting, diarrhea, constipation. Patient is stating that he is feeling better. TRAVEL OUTSIDE OF THE [place] IN LAST 30 DAYS: No - Related Data Allergies/Adverse Reactions: No Known Allergies Allergy (Verified 11/01/19 20:07) Past Medical History - General Information source: Patient - Social History Smoking Status: Never Smoker Chew tobacco use (# tins/day): No Frequency of alcohol use: None Drug Abuse: None Family History: Reviewed & Not Pertinent Patient has suicidal ideation: No Patient has homicidal ideation: No Pulmonary Medical History: Reports: Hx Asthma, Hx Bronchitis GI Medical History: Reports: Hx Gastroesophageal Reflux Disease, Hx Irritable Bowel - constipation Musculoskeletal Medical History: Reports Hx Arthritis, Reports Hx Musculoskeletal Trauma Psychiatric Medical History: Reports: Hx Anxiety, Hx Bipolar Disorder, Hx Depression, Hx Personality Disorder, Hx Schizoaffective Disorder, Hx Schizophrenia Traumatic Medical History: Reports: Hx Fractures - Finger fracture Past Surgical History: Reports: Hx Abdominal Surgery, Hx Appendectomy, Hx Cholecystectomy, Hx Orthopedic Surgery - Immunizations Immunizations up to date: Yes Hx Diphtheria, Pertussis, Tetanus Vaccination: Yes - 2012 Hx Pneumococcal Vaccination: 08/23/00 Review of Systems - Review of Systems Notes: Constitutional: Negative for fever. HENT: Negative for sore throat. Eyes: Negative for visual changes. Cardiovascular: Negative for chest pain. Respiratory: Negative for shortness of breath. Gastrointestinal: Negative for abdominal pain, vomiting or diarrhea. Genitourinary: Negative for dysuria. Musculoskeletal: Negative for back pain. Skin: Negative for rash. Neurological: Negative for headaches, weakness or numbness. 10 point ROS negative except as marked above and in HPI. Physical Exam - Vital signs Vitals: Temp Pulse Resp BP Pulse Ox 98.5 F 92 18 118/71 97 11/01/19 19:04 11/01/19 19:04 11/01/19 19:04 11/01/19 19:04 11/01/19 19:04 - Notes Notes: GENERAL: Well-appearing, well-nourished and in no acute distress. HEAD: Atraumatic, normocephalic. EYES: Extraocular movements intact, sclera anicteric, conjunctiva are normal. NECK: Normal range of motion, supple without lymphadenopathy or JVD. ABDOMEN: Soft, nontender. No guarding, no rebound. No masses appreciated. EXTREMITIES: Normal range of motion, no pitting or edema. No clubbing or cyanosis. NEUROLOGICAL: Cranial nerves II through XII grossly intact. Normal speech, norm al gait. PSYCH: Normal mood, normal affect. SKIN: Warm, Dry, normal turgor, no rashes or lesions noted. Course - Re-evaluation Re-evalutation: 11/02/19 nontoxic, well-appearing 34-year-old male presents for not feeling right after eating chicken sandwich with "weird peppers." Abdomen soft nontender. Lab work is at baseline. PE is otherwise unremarkable. Patient is very well-known to this ER. Patient given return precautions and referral back to his PCP. Patient voices understanding and agrees with plan of care. - Vital Signs Vital signs: Temp Pulse Resp BP Pulse Ox 98.4 F 84 16 115/77 93 11/01/19 23:41 11/01/19 23:41 11/01/19 23:41 11/01/19 23:41 11/01/19 23:41 - Laboratory Result Diagrams: 11/01/19 21:21 11/01/19 21:21 Laboratory results interpreted by me: 11/01/19 11/01/19 21:21 21:21 WBC 3.3 L MCH 26.8 L RDW 14.5 H Seg Neuts % (Manual) 32 L Lymphocytes % (Manual) 48 H Eosinophils % (Manual) 11 H Abs Neuts (Manual) 1.1 L Total Bilirubin 1.5 H Discharge - Discharge Clinical Impression: Encounter for medical screening examination Condition: Stable Disposition: HOME, SELF-CARE Additional Instructions: Please follow-up with your primary care doctor in 2 to 3 days. Return immediat danilo to ER if you start having any worsening symptoms, including abdominal pain, nausea/vomiting, diarrhea, constipation, dizziness, chest pain, shortness of breath, or any other symptoms that are concerning to you. Referrals: GIANCARLO CHANCE MD [Primary Care Provider] - Follow up in 3-5 days
[2019-11-02 01:03] VITALS: BP 119/74
[2019-11-02] MEDS ORDERED: ALBUTEROL SULFATE HFA (90 MCG/PUFF) 8 GM MDI (1 MDI/ER DISP) IH ONE (01:06)
== END 2019-11-02 01:03 | disposition home or self-care (01) ==
LOC: ER 18:22
DX: R14.1 Gas pain (principal)
CPT/HCPCS: 99283; 36415; 85025; 80053; J3490

== ENCOUNTER 2019-11-02 20:44 | Emergency (ER) | payer MEDICAID ==
[2019-11-02 20:53] VITALS: BP 120/94
[2019-11-02] MEDS ORDERED: ALBUTEROL SULFATE HFA (90 MCG/PUFF) 8 GM MDI IH ONE (21:08)
--- NOTE | 2019-11-02 21:23 | ER Document Report ---
HPI - HPI Time Seen by Provider: 11/02/19 21:04 Onset: Other - This 34-year-old male who presented to the emergency room today with what he states is flulike symptoms however he is actually coughing with a scant wheeze. Does have a history of reactive airway disease and will be provided treatment. Onset/Duration: Gradual Pain Level: Denies Associated Symptoms: None Exacerbated by: Denies Relieved by: Denies - REPRODUCTIVE Reproductive: DENIES: : Past Medical History - General Information source: Patient - Social History Smoking Status: Current Every Day Smoker Cigarette use (# per day): Yes Chew tobacco use (# tins/day): No Smoking Education Provided: No Frequency of alcohol use: Rare Drug Abuse: None Family History: Reviewed & Not Pertinent Patient has suicidal ideation: No Patient has homicidal ideation: No Pulmonary Medical History: Reports: Hx Asthma, Hx Bronchitis GI Medical History: Reports: Hx Gastroesophageal Reflux Disease, Hx Irritable Bowel - constipation Musculoskeletal Medical History: Reports Hx Arthritis, Reports Hx Musculoskeletal Trauma Psychiatric Medical History: Reports: Hx Anxiety, Hx Bipolar Disorder, Hx Depression, Hx Personality Disorder, Hx Schizoaffective Disorder, Hx Schizophrenia Traumatic Medical History: Reports: Hx Fractures - Finger fracture Past Surgical History: Reports: Hx Abdominal Surgery, Hx Appendectomy, Hx Cholecystectomy, Hx Orthopedic Surgery - Immunizations Immunizations up to date: Yes Hx Diphtheria, Pertussis, Tetanus Vaccination: Yes - 2012 Hx Pneumococcal Vaccination: 08/23/00 Vertical Provider Document - CONSTITUTIONAL Agree With Documented VS: Yes Exam Limitations: No Limitations - INFECTION CONTROL TRAVEL OUTSIDE OF THE [place] IN LAST 30 DAYS: No - HEENT HEENT: Atraumatic, Conjuctival Injection, Normocephalic, PERRLA - NECK Neck: Normal Inspection - RESPIRATORY Respiratory: Breath Sounds Normal - CARDIOVASCULAR Cardiovascular: Regular Rate - So I think Brock got tapped to go back into - GI/ABDOMEN Gastrointestinal: Abdomen Soft - A. fib, Abdomen Non-Tender, Abdominal Guarding - REPRODUCTIVE Male Genitalia: Normal Inspection - BACK Back: Normal Inspection - To [employer] - NEURO Level of Consciousness: Awake, Alert, Appropriate - flight due to due to with the help Course - Vital Signs Vital signs: Temp Pulse Resp BP Pulse Ox 99.0 F 96 20 120/94 H 91 L 11/02/19 20:50 11/02/19 20:50 11/02/19 20:50 11/02/19 20:50 11/02/19 20:50 Discharge - Discharge Clinical Impression: Asthma exacerbation Condition: Good Disposition: HOME, SELF-CARE Additional Instructions: Reactive Airway Disease You have "reactive airway disease." This means that your bronchial tubes constrict (narrow) or secrete extra mucous as a reaction to something that irritates them. The airway's reaction can cause shortness of breath, wheezing, or coughing. With reactive airway disease, your lungs can react to respiratory infections, allergic reactions, or inhaled dust, smoke, chemicals, or even cold air. Asthma is one type of reactive airway disease. Emergency treatment of bronchospasm may include adrenaline shots or bronchodilator aerosol. If we used these medicines to treat you, you may feel lightheaded and have a rapid pulse for an hour or two. Rest and get plenty of fluids. At home, we'll treat you with a bronchodilator inhaler. Antibiotics and corticosteroids may be required for some patients. Until you recover, avoid chemical fumes, dusts, pollens, and exercising in very cold or dry air. If you smoke, stop now!! If you develop a fever, increased wheezing, chest pain, or severe shortness of breath, you should contact your doctor immediately. Referrals: GIANCARLO CHANCE MD [Primary Care Provider] - Follow up as needed
== END 2019-11-02 21:55 | disposition home or self-care (01) ==
LOC: ER 20:44
DX: J45.901 Unspecified asthma with (acute) exacerbation (principal); F17.210 Nicotine dependence, cigarettes, uncomplicated; R05 Cough
CPT/HCPCS: 99284; J3490

== ENCOUNTER 2019-11-02 23:12 | Emergency (ER) | payer MEDICAID ==
[2019-11-02 23:46] VITALS: BP 120/80
--- NOTE | 2019-11-02 23:46 | ER Document Report ---
ED General - General Chief Complaint: Ankle Pain Stated Complaint: RIGHT LEG PAIN/ANKLE PAIN Primary Care Provider: GIANCARLO CHANCE MD [Primary Care Provider] - Follow up as needed Notes: Patient is a 34-year-old -Polish male with no significant past medical history presents to the emergency department with a chief complaint of right ankle pain that occurred after discharge from the department earlier today. The patient was walking on some rocks out in the parking lot when he states he lost footing slightly twisting the right ankle. He states there was a little twinge at the time but the ankle feels better now. No pain or swelling at this time but thought he should come in and have it formally evaluated. Denies any numbness tingling or weakness. He did not fall to the ground, strike his head or lose consciousness. TRAVEL OUTSIDE OF THE [place] IN LAST 30 DAYS: No - Related Data Allergies/Adverse Reactions: No Known Allergies Allergy (Verified 11/02/19 23:35) Past Medical History - Social History Smoking Status: Former Smoker Family History: Reviewed & Not Pertinent Patient has suicidal ideation: No Patient has homicidal ideation: No Pulmonary Medical History: Reports: Hx Asthma, Hx Bronchitis GI Medical History: Reports: Hx Gastroesophageal Reflux Disease, Hx Irritable Bowel - constipation Musculoskeletal Medical History: Reports Hx Arthritis, Reports Hx Musculoskeletal Trauma Psychiatric Medical History: Reports: Hx Anxiety, Hx Bipolar Disorder, Hx Depression, Hx Personality Disorder, Hx Schizoaffective Disorder, Hx Schizophrenia Traumatic Medical History: Reports: Hx Fractures - Finger fracture Past Surgical History: Reports: Hx Abdominal Surgery, Hx Appendectomy, Hx Cholecystectomy, Hx Orthopedic Surgery - Immunizations Immunizations up to date: Yes Hx Diphtheria, Pertussis, Tetanus Vaccination: Yes - 2012 Hx Pneumococcal Vaccination: 08/23/00 Review of Systems - Review of Systems Musculoskeletal: Joint pain -: Yes All other systems reviewed and negative Physical Exam - Vital signs Vitals: Temp Pulse Resp BP Pulse Ox 99.3 F 79 20 118/89 H 95 11/02/19 23:20 11/02/19 23:20 11/02/19 23:20 11/02/19 23:20 11/02/19 23:20 - General General appearance: Appears well, Alert In distress: None - Respiratory Respiratory status: No respiratory distress Chest status: Nontender Breath sounds: Normal Chest palpation: Normal - Cardiovascular Rhythm: Regular Heart sounds: Normal auscultation - Extremities Ankle: Normal, Nontender, Other - Full passive range of motion of the right a nkle. No swelling or tenderness or deformity. 2+ DP/PT on the right. Normal gait appreciated. - Neurological Neuro grossly intact: Yes Cognition: Normal Orientation: AAOx4 - Psychological Associated symptoms: Normal affect, Normal mood - Skin Skin Temperature: Warm Skin Moisture: Dry Skin Color: Normal Course - Re-evaluation Re-evalutation: 11/02/19 23:45 Normal exam, imaging not warranted at this time. We discussed supportive care measures. Counseled the patient regarding the importance of outpatient follow- up and advised to return here or any ER immediately with any new, persistent or worsening symptoms. He verbalized understood and agreed. - Vital Signs Vital signs: Temp Pulse Resp BP Pulse Ox 99.3 F 79 20 118/89 H 95 11/02/19 23:20 11/02/19 23:20 11/02/19 23:20 11/02/19 23:20 11/02/19 23:20 Discharge - Discharge Clinical Impression: Ankle pain Qualifiers: Chronicity: acute Laterality: unspecified laterality Qualified Code(s): M25.579 - Pain in unspecified ankle and joints of unspecified foot Ankle injury Qualifiers: Encounter type: initial encounter Laterality: unspecified laterality Qualified Code(s): S99.919A - Unspecified injury of unspecified ankle, initial encounter Condition: Stable Disposition: HOME, SELF-CARE Instructions: Ice & Elevation ([facility]) Additional Instructions: Follow-up with your regular doctor in 2 to 3 days for reevaluation. Return here or any ER immediately with any new, persistent or worsening symptoms. Referrals: GIANCARLO CHANCE MD [Primary Care Provider] - Follow up as needed
--- NOTE | 2019-11-03 18:23 | EKG REPORT ---
SEVERITY:- ABNORMAL ECG - SINUS RHYTHM RIGHT ATRIAL ABNORMALITY ST ELEV, PROBABLE NORMAL EARLY REPOL PATTERN : Confirmed by: Fernando Delarosa 03-Nov-2019 18:21:47
== END 2019-11-02 23:43 | disposition home or self-care (01) ==
LOC: ER 23:12
DX: M25.572 Pain in left ankle and joints of left foot (principal); X50.1XXA Overexertion from prolonged static or awkward postures, initial encounter; Y93.01 Activity, walking, marching and hiking; Y92.481 Parking lot as the place of occurrence of the external cause; J45.909 Unspecified asthma, uncomplicated; Z87.891 Personal history of nicotine dependence
CPT/HCPCS: 93005; 93010; 99283

== ENCOUNTER 2019-11-04 18:56 | Emergency (ER) | payer MEDICAID ==
[2019-11-04 19:02] VITALS: BP 130/74
[2019-11-04] MEDS ORDERED: ALBUTEROL SULFATE 0.083% NEB 2.5 MG/3 ML AMPUL NEB ONE (19:02)
--- NOTE | 2019-11-04 19:05 | ER Document Report ---
HPI - HPI Time Seen by Provider: 11/04/19 19:02 Onset: Just prior to arrival Onset/Duration: Sudden Quality of pain: No pain Associated Symptoms: None - REPRODUCTIVE Reproductive: DENIES: : Past Medical History - General Information source: Patient - Social History Smoking Status: Current Every Day Smoker Cigarette use (# per day): No Chew tobacco use (# tins/day): No Smoking Education Provided: No Family History: Reviewed & Not Pertinent Pulmonary Medical History: Reports: Hx Asthma, Hx Bronchitis GI Medical History: Reports: Hx Gastroesophageal Reflux Disease, Hx Irritable Bowel - constipation Musculoskeletal Medical History: Reports Hx Arthritis, Reports Hx Musculoskeletal Trauma Psychiatric Medical History: Reports: Hx Anxiety, Hx Bipolar Disorder, Hx Depression, Hx Personality Disorder, Hx Schizoaffective Disorder, Hx Schizophrenia Traumatic Medical History: Reports: Hx Fractures - Finger fracture Past Surgical History: Reports: Hx Abdominal Surgery, Hx Appendectomy, Hx Cholecystectomy, Hx Orthopedic Surgery - Immunizations Immunizations up to date: Yes Hx Diphtheria, Pertussis, Tetanus Vaccination: Yes - 2012 Hx Pneumococcal Vaccination: 08/23/00 Vertical Provider Document - CONSTITUTIONAL Agree With Documented VS: Yes - INFECTION CONTROL TRAVEL OUTSIDE OF THE [place] IN LAST 30 DAYS: No - HEENT HEENT: Atraumatic, Conjuctival Injection, Normocephalic, PERRLA - NECK Neck: Normal Inspection - RESPIRATORY Respiratory: Breath Sounds Normal, Wheezing - CARDIOVASCULAR Pulses: Normal: Brachial, Radial, Carotid, Femoral Course - Vital Signs Vital signs: Temp Pulse Resp BP Pulse Ox 98.2 F 99 18 130/74 H 96 11/04/19 19:01 11/04/19 19:01 11/04/19 19:01 11/04/19 19:01 11/04/19 19:01 Discharge - Discharge Clinical Impression: Wheeze Condition: Good Disposition: HOME, SELF-CARE Instructions: Bronchitis With Bronchospasm (Wheezing) ([facility]) Prescriptions: Albuterol Sulfate [Proair HFA Inhalation Aerosol 8.5 gm MDI] 2 puff IH Q4H PRN #1 mdi PRN Reason: Referrals: GIANCARLO CHANCE MD [Primary Care Provider] - Follow up as needed
== END 2019-11-04 19:51 | disposition home or self-care (01) ==
LOC: ER 18:56
DX: J45.909 Unspecified asthma, uncomplicated (principal); F17.200 Nicotine dependence, unspecified, uncomplicated
CPT/HCPCS: 94640; 99284

== ENCOUNTER 2019-11-08 07:46 | Emergency (ER) | payer MEDICAID ==
--- NOTE | 2019-11-08 10:16 | ER Document Report ---
HPI - HPI Time Seen by Provider: 11/08/19 09:00 Pain Level: Denies Context: Patient is a 34-year-old male, well-known to our emergency department who presents to the emergency department for concerns of 2 moles to his left upper arm. Patient states that the moles seem like they were getting bigger and looking different. He denies any raised areas to the area. Denies any redness. Patient also has chronic asthma and wanted to have his lungs checked. He has an albuterol inhaler, but has not taken it recently. He is also on Symbicort. - CONSTITUTIONAL Constitutional: DENIES: Fever, Chills - EENT EENT: DENIES: Sore Throat, Ear Pain, Nasal Drainage-Clear - CARDIOVASCULAR Cardiovascular: DENIES: Chest pain - RESPIRATORY Respiratory: DENIES: Trouble Breathing, Coughing - GASTROINTESTINAL Gastrointestinal: DENIES: Abdominal Pain, Nausea, Patient vomiting - REPRODUCTIVE Reproductive: DENIES: : - MUSCULOSKELETAL Musculoskeletal: DENIES: Extremity pain - DERM Skin Color: Normal Notes: concerned about two "brown spots" on left upper arm Past Medical History - Social History Smoking Status: Never Smoker Family History: Reviewed & Not Pertinent Patient has suicidal ideation: No Patient has homicidal ideation: No Pulmonary Medical History: Reports: Hx Asthma, Hx Bronchitis GI Medical History: Reports: Hx Gastroesophageal Reflux Disease, Hx Irritable Bowel - constipation Musculoskeletal Medical History: Reports Hx Arthritis, Reports Hx Musculoskeletal Trauma Psychiatric Medical History: Reports: Hx Anxiety, Hx Bipolar Disorder, Hx Depression, Hx Personality Disorder, Hx Schizoaffective Disorder, Hx Schizophrenia Traumatic Medical History: Reports: Hx Fractures - Finger fracture Past Surgical History: Reports: Hx Abdominal Surgery, Hx Appendectomy, Hx Cholecystectomy, Hx Orthopedic Surgery - Immunizations Immunizations up to date: Yes Hx Diphtheria, Pertussis, Tetanus Vaccination: Yes - 2012 Hx Pneumococcal Vaccination: 08/23/00 Vertical Provider Document - CONSTITUTIONAL Agree With Documented VS: Yes Exam Limitations: No Limitations General Appearance: No Apparent Distress - INFECTION CONTROL TRAVEL OUTSIDE OF THE [place] IN LAST 30 DAYS: No - HEENT HEENT: Atraumatic, Normal ENT Exam - NECK Neck: Normal Inspection - RESPIRATORY Respiratory: Breath Sounds Normal, Chest Non-Tender - CARDIOVASCULAR Cardiovascular: Regular Rate, Regular Rhythm Pulses: Normal: Radial - MUSCULOSKELETAL/EXTREMETIES Musculoskeletal/Extremeties: FROM - NEURO Level of Consciousness: Awake, Alert, Appropriate Motor/Sensory: No Motor Deficit, No Sensory Deficit - DERM Integumentary: Warm, Dry, No Rash Course - Re-evaluation Re-evalutation: 11/08/19 Patient has 2 areas of concern on his left upper arm are benign nevus'. Borders are normal. The areas are not raised. Patient does not appear to be having asthma exacerbation. Advised patient to take albuterol as needed. Follow-up precautions were given. Verbal discharge instructions were given to the patient. They verbalized understanding. They are stable for discharge. - Vital Signs Vital signs: Temp Pulse Resp BP Pulse Ox 98.3 F 81 20 116/81 94 11/08/19 07:55 11/08/19 07:55 11/08/19 07:55 11/08/19 07:55 11/08/19 07:55 Discharge - Discharge Clinical Impression: Nevus Chronic asthma Qualifiers: Asthma severity: unspecified severity Asthma persistence: unspecified Asthma complication type: uncomplicated Qualified Code(s): J45.909 - Unspecified asthma, uncomplicated Condition: Stable Disposition: HOME, SELF-CARE Additional Instructions: You were seen today in the emergency department for concern of 2 moles on your left upper arm. The 2 moles are both also called nevus. They look normal and do not appear cancerous. Please follow-up with your primary care provider as needed. Continue your Symbicort daily and albuterol inhaler if needed. Referrals: GIANCARLO CHANCE MD [Primary Care Provider] - Follow up as needed
[2019-11-08 10:24] VITALS: BP 110/75
== END 2019-11-08 10:22 | disposition home or self-care (01) ==
LOC: ER 07:46
DX: D36.7 Benign neoplasm of other specified sites (principal); J45.909 Unspecified asthma, uncomplicated; Z79.51 Long term (current) use of inhaled steroids
CPT/HCPCS: 99283

== ENCOUNTER 2019-11-08 12:53 | Emergency (ER) | payer MEDICAID ==
[2019-11-08 13:08] VITALS: BP 125/71
[2019-11-08] MEDS ORDERED: BENZONATATE 100 MG CAPSULE PO ONE (13:21)
--- NOTE | 2019-11-08 14:06 | ER Document Report ---
HPI - HPI Time Seen by Provider: 11/08/19 13:11 Pain Level: 2 Notes: Patient is a 34-year-old male presenting to the emergency department concerns for burning pain in his chest and cough. Patient reports the burning pain in his chest occurs after coughing. He states he is concerned he may have pneumonia because he has had the cough over the last few days. He denies any fever. He denies any recent travel. - CONSTITUTIONAL Constitutional: DENIES: Fever, Chills - CARDIOVASCULAR Cardiovascular: REPORTS: Chest pain - R Upper - RESPIRATORY Respiratory: REPORTS: Coughing. DENIES: Trouble Breathing - GASTROINTESTINAL Gastrointestinal: DENIES: Abdominal Pain, Black / Bloody Stools - REPRODUCTIVE Reproductive: DENIES: : Past Medical History - General Information source: Patient - Social History Smoking Status: Never Smoker Family History: Reviewed & Not Pertinent Patient has suicidal ideation: No Patient has homicidal ideation: No Pulmonary Medical History: Reports: Hx Asthma, Hx Bronchitis GI Medical History: Reports: Hx Gastroesophageal Reflux Disease, Hx Irritable Bowel - constipation Musculoskeletal Medical History: Reports Hx Arthritis, Reports Hx Musculoskeletal Trauma Psychiatric Medical History: Reports: Hx Anxiety, Hx Bipolar Disorder, Hx Depression, Hx Personality Disorder, Hx Schizoaffective Disorder, Hx Schizophrenia Traumatic Medical History: Reports: Hx Fractures - Finger fracture Past Surgical History: Reports: Hx Abdominal Surgery, Hx Appendectomy, Hx Cholecystectomy, Hx Orthopedic Surgery - Immunizations Immunizations up to date: Yes Hx Diphtheria, Pertussis, Tetanus Vaccination: Yes - 2012 Hx Pneumococcal Vaccination: 08/23/00 Vertical Provider Document - CONSTITUTIONAL Notes: PHYSICAL EXAMINATION: GENERAL: Well-appearing, well-nourished and in no acute distress. HEAD: Atraumatic, normocephalic. EYES: Pupils equal round extraocular movements intact, conjunctiva are normal. ENT: Nares patent NECK: Normal range of motion LUNGS: No respiratory distress Musculoskeletal: Normal range of motion, expiratory wheeze noted to left upper lobe, no respiratory distress noted. NEUROLOGICAL: Normal speech, normal gait. PSYCH: Normal mood, normal affect. SKIN: Warm, Dry, normal turgor, no rashes or lesions noted. - INFECTION CONTROL TRAVEL OUTSIDE OF THE [place] IN LAST 30 DAYS: No Course - Re-evaluation Re-evalutation: Patient appears well, nontoxic, vital signs within normal limits. Chest x-ray unremarkable. Patient will be discharged home on [facility]. ED return precautions discussed. - Vital Signs Vital signs: Temp Pulse Resp BP Pulse Ox 98.3 F 100 18 125/71 94 11/08/19 13:07 11/08/19 13:07 11/08/19 13:07 11/08/19 13:07 11/08/19 13:07 Discharge - Discharge Clinical Impression: Cough, Wheeze Condition: Stable Disposition: HOME, SELF-CARE Additional Instructions: Your x-ray was negative. You do not have a pneumonia. Please take the Tessalon Perles for your cough. Follow-up with your primary care provider. Only return to the emergency department here if you are experiencing acute life-threatening emergencies. Prescriptions: Benzonatate [Tessalon Perles 100 mg Capsule] 1 - 2 tab PO Q8HP PRN #30 capsule PRN Reason: Referrals: GIANCARLO CHANCE MD [Primary Care Provider] - Follow up as needed
--- NOTE | 2019-11-08 14:13 | RADIOLOGY REPORT (SQ) ---
EXAM DESCRIPTION: CHEST 2 VIEWS COMPLETED DATE/TIME: 11/08/2019 1:34 pm REASON FOR STUDY: cough COMPARISON: None. EXAM PARAMETERS: NUMBER OF VIEWS: two views TECHNIQUE: Digital Frontal and Lateral radiographic views of the chest acquired. RADIATION DOSE: NA LIMITATIONS: none FINDINGS: LUNGS AND PLEURA: No opacities, masses or pneumothorax. No pleural effusion. MEDIASTINUM AND HILAR STRUCTURES: No masses or contour abnormalities. HEART AND VASCULAR STRUCTURES: Heart normal size. No evidence for failure. BONES: No acute findings. HARDWARE: None in the chest. OTHER: No other significant finding. IMPRESSION: No focal airspace disease or other evidence of acute intrathoracic process. TECHNICAL DOCUMENTATION: JOB ID: [id number] 2010 [employer]- All Rights Reserved Reading location - IP/workstation name: [email or web address]
--- NOTE | 2019-11-08 20:03 | EKG REPORT ---
SEVERITY:- NORMAL ECG - SINUS RHYTHM ST ELEV, PROBABLE NORMAL EARLY REPOL PATTERN : Confirmed by: Ann Brewer MD 08-Nov-2019 20:03:03
== END 2019-11-08 14:46 | disposition home or self-care (01) ==
LOC: ER 12:53
DX: R05 Cough (principal); J45.909 Unspecified asthma, uncomplicated; R07.9 Chest pain, unspecified
CPT/HCPCS: 93005; 99283; 71046; 93010; J3490

== ENCOUNTER 2019-11-08 21:23 | Emergency (ER) | payer MEDICAID ==
--- NOTE | 2019-11-08 22:17 | ER Document Report ---
HPI - HPI Time Seen by Provider: 11/08/19 21:49 Pain Level: Denies Context: Patient presents with concerns about being startled and this causing his heart rate and breathing to increase. Patient states that he was sitting outside and someone came by to clean trash and he got startled and made him feel anxious. Patient also voiced concern that he is attempted to call the [facility] hotline and get testing. Patient is wanting to know what he needs to do to go about getting tested. Patient denies any fever any recent travel or known exposure to anybody who is high risk of transmission of the virus at this time. Associated Symptoms: None Exacerbated by: Denies Relieved by: Denies Similar symptoms previously: Yes Recently seen / treated by doctor: Yes - ROS ROS below otherwise negative: Yes Systems Reviewed and Negative: Yes All other systems reviewed and negative - CONSTITUTIONAL Constitutional: DENIES: Fever - NEURO Neurology: DENIES: Headache - CARDIOVASCULAR Cardiovascular: DENIES: Chest pain - RESPIRATORY Respiratory: DENIES: Trouble Breathing - GASTROINTESTINAL Gastrointestinal: DENIES: Nausea, Patient vomiting - MUSCULOSKELETAL Musculoskeletal: DENIES: Back Pain - DERM Skin Color: Normal Skin Problems: None Past Medical History - General Information source: Patient - Social History Smoking Status: Former Smoker Frequency of alcohol use: None Drug Abuse: None Lives with: Alone Family History: Reviewed & Not Pertinent Patient has suicidal ideation: No Patient has homicidal ideation: No Pulmonary Medical History: Reports: Hx Asthma, Hx Bronchitis GI Medical History: Reports: Hx Gastroesophageal Reflux Disease, Hx Irritable Bowel - constipation Musculoskeletal Medical History: Reports Hx Arthritis, Reports Hx Musculoskeletal Trauma Psychiatric Medical History: Reports: Hx Anxiety, Hx Bipolar Disorder, Hx Depression, Hx Personality Disorder, Hx Schizoaffective Disorder, Hx Schizophrenia Traumatic Medical History: Reports: Hx Fractures - Finger fracture Past Surgical History: Reports: Hx Abdominal Surgery, Hx Appendectomy, Hx Cholecystectomy, Hx Orthopedic Surgery - Immunizations Immunizations up to date: Yes Hx Diphtheria, Pertussis, Tetanus Vaccination: Yes - 2012 Hx Pneumococcal Vaccination: 08/23/00 Vertical Provider Document - CONSTITUTIONAL Agree With Documented VS: Yes Exam Limitations: No Limitations General Appearance: WD/WN, No Apparent Distress - INFECTION CONTROL TRAVEL OUTSIDE OF THE [place] IN LAST 30 DAYS: No - HEENT HEENT: Atraumatic, Normocephalic - NECK Neck: Normal Inspection - RESPIRATORY Respiratory: Breath Sounds Normal, No Respiratory Distress, Chest Non-Tender - CARDIOVASCULAR Cardiovascular: Regular Rate, Regular Rhythm, No Murmur - BACK Back: Normal Inspection - MUSCULOSKELETAL/EXTREMETIES Musculoskeletal/Extremeties: MAEW - NEURO Level of Consciousness: Awake, Alert Motor/Sensory: No Motor Deficit - DERM Integumentary: Warm, Dry Course - Re-evaluation Re-evalutation: 11/08/19 22:15 Patient encouraged to call the [facility] virus hotline so that he may seek testing at the drive through clinic. Patient also encouraged to follow-up with the health department or his primary care provider. His respirations even unlabored. Patient with stable vital signs and nontoxic appearance. Patient very well-known to the hospital as he has frequent visits for anxiety related concerns. Patient denies any suicidal or homicidal ideation at this time. - Vital Signs Vital signs: Temp Pulse Resp BP Pulse Ox 98.9 F 95 16 109/70 16 L 11/08/19 21:35 11/08/19 21:35 11/08/19 21:35 11/08/19 21:35 11/08/19 21:35 Discharge - Discharge Clinical Impression: Anxiety about health Condition: Stable Disposition: HOME, SELF-CARE Instructions: Anxiety ([facility]) Additional Instructions: Return immediately for any new or worsening symptoms Followup with your primary care provider, call tomorrow to make a followup appointment Follow-up with the health department with the communicable disease nurse for any questions about testing Referrals: GIANCARLO CHANCE MD [Primary Care Provider] - Follow up as needed [facility] [NO LOCAL MD] - Follow up tomorrow
[2019-11-08 22:40] VITALS: BP 110/70
== END 2019-11-08 22:38 | disposition home or self-care (01) ==
LOC: ER 21:23
DX: F41.9 Anxiety disorder, unspecified (principal); J45.909 Unspecified asthma, uncomplicated; Z87.891 Personal history of nicotine dependence
CPT/HCPCS: 99283

== ENCOUNTER 2019-11-09 01:11 | Emergency (ER) | payer MEDICAID ==
--- NOTE | 2019-11-09 01:14 | ER Document Report ---
ED General - General Stated Complaint: EAR PAIN Primary Care Provider: GIANCARLO CHANCE MD [Primary Care Provider] - Follow up as needed Notes: Letter male, homelessness. ED visit today. Gestures at his helix of the right ear where his hat is resting. Says it might feel a bit red. No discharge no internal ear pain loss of hearing or fevers. TRAVEL OUTSIDE OF THE [place] IN LAST 30 DAYS: No - Related Data Allergies/Adverse Reactions: No Known Allergies Allergy (Verified 11/08/19 13:04) Past Medical History - Social History Smoking Status: Current Every Day Smoker Family History: Reviewed & Not Pertinent Pulmonary Medical History: Reports: Hx Asthma, Hx Bronchitis GI Medical History: Reports: Hx Gastroesophageal Reflux Disease, Hx Irritable Bowel - constipation Musculoskeletal Medical History: Reports Hx Arthritis, Reports Hx Musculoskeletal Trauma Psychiatric Medical History: Reports: Hx Anxiety, Hx Bipolar Disorder, Hx Depression, Hx Personality Disorder, Hx Schizoaffective Disorder, Hx Schizophrenia Traumatic Medical History: Reports: Hx Fractures - Finger fracture Past Surgical History: Reports: Hx Abdominal Surgery, Hx Appendectomy, Hx Cholecystectomy, Hx Orthopedic Surgery - Immunizations Immunizations up to date: Yes Hx Diphtheria, Pertussis, Tetanus Vaccination: Yes - 2012 Hx Pneumococcal Vaccination: 08/23/00 Review of Systems - Review of Systems Notes: REVIEW OF SYSTEMS GEN: Denies fever, chills, weight loss ENT: Right ear pain EYES: Denies blurry vision, eye pain, discharge CV: Denies chest pain, palpitations, edema RESP: Denies cough, shortness of breath, wheezing GI: Denies abdominal pain, nausea, vomiting, diarrhea MSK: Denies joint pain/swelling, edema, SKIN: Denies rash, skin lesions LYMPH: Denies swollen glands/lymph nodes NEURO: Denies headache, focal weakness or numbness, dizziness PSYCH: Denies depression, suicidal or homicidal ideation PHYSICAL EXAMINATION General: No acute distress, well-nourished Head: Atraumatic, normocephalic ENT: Mouth normal, oropharynx moist, lips normal mild erythema of the right ear without abscess or swelling at the site of his Eyes: Conjunctiva normal, pupils equal, lids normal Neck: No JVD, supple, no guarding Resp: No resp distress, equal chest rise GI: Nondistended, no guarding Back: No midline or CVA tenderness Ext: No deformities, no edema Skin: Well-perfused, no rash Neuro: Awake, alert. Face symmetric. Course - Re-evaluation Re-evalutation: 11/09/19 01:17 Ear pain, likely abraded Discharge Discharge - Discharge Clinical Impression: Otalgia Qualifiers: Laterality: unspecified laterality Qualified Code(s): H92.09 - Otalgia, unspecified ear Condition: Good Disposition: HOME, SELF-CARE Referrals: GIANCARLO CHANCE MD [Primary Care Provider] - Follow up as needed
[2019-11-09 01:35] VITALS: BP 132/76
== END 2019-11-09 01:35 | disposition home or self-care (01) ==
LOC: ER 01:11
DX: H92.01 Otalgia, right ear (principal); Z59.0 Homelessness; F17.200 Nicotine dependence, unspecified, uncomplicated; J45.909 Unspecified asthma, uncomplicated
CPT/HCPCS: 99282

== ENCOUNTER 2019-11-09 04:45 | Emergency (ER) | payer MEDICAID ==
[2019-11-09] MEDS ORDERED: IPRATROPIUM/ALBUTEROL 0.5-2.5 MG/3 ML AMPUL NEB ONE (05:13)
--- NOTE | 2019-11-09 06:20 | RADIOLOGY REPORT (SQ) ---
EXAM DESCRIPTION: XR CHEST 2 VIEWS COMPLETED DATE/TME: 11/09/2019 00:00 CLINICAL HISTORY: cough COMPARISON: 11/08/2019 FINDINGS: Frontal and lateral views of the chest. Cardiomediastinal silhouette: Normal size and contour. Lungs: No consolidation, pneumothorax, or pleural effusion. Bones: No acute osseous abnormality. Upper abdomen: No abnormality identified. IMPRESSION: 1. No acute pulmonary process identified.
[2019-11-09] MEDS ORDERED: ALBUTEROL SULFATE 0.083% NEB 2.5 MG/3 ML AMPUL NEB ONE (06:33)
[2019-11-09] MEDS ORDERED: PREDNISONE 20 MG TABLET PO ONE (06:33)
[2019-11-09 06:56] VITALS: BP 113/58
--- NOTE | 2019-11-09 14:53 | ER Document Report ---
Entered by MALU VERGARA SCRIBE 11/09/19 0619 Acting as scribe for:LENIN SOLIS MD ED Respiratory Problem - General Chief Complaint: Cough Stated Complaint: COUGH Time Seen by Provider: 11/09/19 06:09 Primary Care Provider: GIANCARLO CHANCE MD [Primary Care Provider] - Follow up as needed Mode of Arrival: Ambulatory Information source: Patient Notes: This 34-year-old male patient with schizophrenia or schizoaffective disorder comes to the emergency room complaining of cough. This is his fifth ER visit in less than 24 hours for various unrelated complaints. He has been here in excess of 30 times in the last 4 weeks. His only medical problem is asthma and he has inhalers for that. TRAVEL OUTSIDE OF THE [place] IN LAST 30 DAYS: No - Related Data Allergies/Adverse Reactions: No Known Allergies Allergy (Verified 11/08/19 13:04) Past Medical History - General Information source: Patient - Social History Smoking Status: Never Smoker Chew tobacco use (# tins/day): No Smoking Education Provided: No Frequency of alcohol use: None Drug Abuse: None Lives with: Other - custodial Family History: Reviewed & Not Pertinent Patient has suicidal ideation: No Patient has homicidal ideation: No Pulmonary Medical History: Reports: Hx Asthma, Hx Bronchitis GI Medical History: Reports: Hx Gastroesophageal Reflux Disease, Hx Irritable Bowel - Constipation Musculoskeletal Medical History: Reports Hx Arthritis, Reports Hx Musculoskeletal Trauma Psychiatric Medical History: Reports: Hx Anxiety, Hx Bipolar Disorder, Hx Depression, Hx Personality Disorder, Hx Schizoaffective Disorder, Hx Schizophrenia Traumatic Medical History: Reports: Hx Fractures - Finger fracture Past Surgical History: Reports: Hx Abdominal Surgery, Hx Appendectomy, Hx Cholecystectomy, Hx Orthopedic Surgery - Immunizations Immunizations up to date: Yes Hx Diphtheria, Pertussis, Tetanus Vaccination: Yes - 2012 Hx Pneumococcal Vaccination: 08/23/00 Review of Systems - Review of Systems Constitutional: denies: Chills, Fever EENT: No symptoms reported Cardiovascular: No symptoms reported Respiratory: See HPI, Cough, Short of breath, Wheezing Gastrointestinal: No symptoms reported Genitourinary: No symptoms reported Male Genitourinary: No symptoms reported Musculoskeletal: denies: Muscle pain Skin: No symptoms reported Hematologic/Lymphatic: No symptoms reported Neurological/Psychological: No symptoms reported -: Yes All other systems reviewed and negative Physical Exam - Vital signs Vitals: Temp Pulse Resp BP Pulse Ox 98.4 F 79 16 121/78 94 11/09/19 05:26 11/09/19 05:26 11/09/19 05:26 11/09/19 05:26 11/09/19 05:26 - General General appearance: Appears well, Alert In distress: None Notes: Overwhelming body odor noted when entering the room. - HEENT Head: Normocephalic, Atraumatic Eyes: Normal Pupils: PERRL - Respiratory Respiratory status: No respiratory distress Breath sounds: Wheezing - Faint wheezes, he did get a breathing treatment saw him. - Cardiovascular Rhythm: Regular Heart sounds: Normal auscultation Murmur: No - Abdominal Inspection: Normal - Back Back: Normal - Extremities General upper extremity: Normal inspection General lower extremity: Normal inspection - Neurological Neuro grossly intact: Yes - Psychological Associated symptoms: Normal affect, Normal mood - Skin Skin Temperature: Warm Skin Moisture: Dry Skin Color: Normal Course - Vital Signs Vital signs: Temp Pulse Resp BP Pulse Ox 98.4 F 79 16 121/78 94 11/09/19 05:26 11/09/19 05:26 11/09/19 05:26 11/09/19 05:26 11/09/19 05:26 Discharge - Discharge Clinical Impression: Asthma exacerbation Qualifiers: Asthma severity: mild Asthma persistence: intermittent Qualified Code(s): J45.21 - Mild intermittent asthma with (acute) exacerbation Condition: Stable Disposition: HOME, SELF-CARE Additional Instructions: Be sure to use your inhalers for wheezing when needed. Start taking the prednisone as prescribed tomorrow. Follow-up with Dr. Chance if not improving. RETURN TO THE EMERGENCY ROOM IF ANY NEW OR WORSENING SYMPTOMS. Prescriptions: Prednisone [Deltasone 10 mg Tablet] 10 mg PO ASDIR PRN #21 tablet PRN Reason: Referrals: GIANCARLO CHANCE MD [Primary Care Provider] - Follow up as needed I personally performed the services described in the documentation, reviewed and edited the documentation which was dictated to the scribe in my presence, and it accurately records my words and actions.
== END 2019-11-09 07:17 | disposition home or self-care (01) ==
LOC: ER 04:45
DX: J45.21 Mild intermittent asthma with (acute) exacerbation (principal); R05 Cough; F25.9 Schizoaffective disorder, unspecified; R06.02 Shortness of breath
CPT/HCPCS: 94640 ×2; 99283; 71046; J7512; J7620

== ENCOUNTER → 2019-11-13 | Outpatient (CLI) | payer MEDICAID ==
[2019-11-13 09:38] LABS: A TYPE INFLUENZA AG NEGATIVE (NEGATIVE); B INFLUENZA AG NEGATIVE (NEGATIVE)
== END ==
LOC: RDC 08:35
PROVIDERS: ATTEND Registered Nurse
DX: Z20.828 Contact with and (suspected) exposure to other viral communicable diseases (principal)
CPT/HCPCS: 36415; 87070; 87635; 87804; 87880

== ENCOUNTER 2019-12-02 20:12 | Emergency (ER) | payer MEDICAID ==
[2019-12-02 20:25] VITALS: BP 127/85
--- NOTE | 2019-12-02 20:43 | ER Document Report ---
ED General - General Chief Complaint: Cough Stated Complaint: COUGH Primary Care Provider: GIANCARLO CHANCE MD [Primary Care Provider] - Follow up as needed Notes: This 34-year-old man presents to the emergency department with complaint of to red areas in the back of his throat and some bumps. He is concerned as to what it might be. He denies symptoms associated with his throat. He denies difficulty swallowing or pain. He also denies fever or sore throat. He has a history of asthma states that his been doing well no shortness of breath episodes or wheezing. TRAVEL OUTSIDE OF THE [place] IN LAST 30 DAYS: No - Related Data Allergies/Adverse Reactions: No Known Allergies Allergy (Verified 12/02/19 20:28) Past Medical History - Social History Smoking Status: Never Smoker Family History: Reviewed & Not Pertinent Patient has suicidal ideation: No Patient has homicidal ideation: No Pulmonary Medical History: Reports: Hx Asthma, Hx Bronchitis GI Medical History: Reports: Hx Gastroesophageal Reflux Disease, Hx Irritable Bowel - Constipation Musculoskeletal Medical History: Reports Hx Arthritis, Reports Hx Musculoskeletal Trauma Psychiatric Medical History: Reports: Hx Anxiety, Hx Bipolar Disorder, Hx Depression, Hx Personality Disorder, Hx Schizoaffective Disorder, Hx Schizophrenia Traumatic Medical History: Reports: Hx Fractures - Finger fracture Past Surgical History: Reports: Hx Abdominal Surgery, Hx Appendectomy, Hx Cholecystectomy, Hx Orthopedic Surgery - Immunizations Immunizations up to date: Yes Hx Diphtheria, Pertussis, Tetanus Vaccination: Yes - 2012 Hx Pneumococcal Vaccination: 08/23/00 Review of Systems - Review of Systems Notes: Constitutional: Negative for fever. HENT: + Throat concerns. Eyes: Negative for visual changes. Cardiovascular: Negative for chest pain. Respiratory: Negative for shortness of breath. Gastrointestinal: Negative for abdominal pain, vomiting or diarrhea. Genitourinary: Negative for dysuria. Musculoskeletal: Negative for back pain. Skin: Negative for rash. Neurological: Negative for headaches, weakness or numbness. 10 point ROS negative except as marked above and in HPI. Physical Exam - Vital signs Vitals: Temp Pulse Resp BP Pulse Ox 100.0 F 95 18 127/85 H 97 12/02/19 20:22 12/02/19 20:22 12/02/19 20:22 12/02/19 20:22 12/02/19 20:22 - Notes Notes: PHYSICAL EXAMINATION: Physical Exam: General: Well-nourished well-developed 84-year-old man in no acute distress HEENT: NC/AT, pupils equal round and reactive to light, MM moist,nares clear, oropharynx clear, airway patent no swelling, no exudate Neck: supple, no adenopathy, no masses. Good range of motion Lungs: clear, no wheezing, no rales no rhonchi CVS: Regular rate and rhythm no murmur gallop or rub Abdomen: Soft, active, nontender, no masses, no hepatosplenomegaly Ext: No edema, clubbing or cyanosis. Neuro: Alert and responsive, moving all 4 extremities on command, cranial nerves intact, no focal findings Skin: Intact no open lesions, no rash PSYCH: Normal mood, normal affect. Course - Re-evaluation Re-evalutation: 12/02/19 20:40 Patient with some posterior pharyngeal changes may be related to postnasal drainage or allergies. Have encouraged him to use warm saline/water gargle and to monitor his symptoms closely if there are concerns he may return to the emergency department for further evaluation and treatment. Patient acknowledges understanding of this plan and states that he is ready to be discharged. - Vital Signs Vital signs: Temp Pulse Resp BP Pulse Ox 100.0 F 95 18 127/85 H 97 12/02/19 20:22 12/02/19 20:22 12/02/19 20:22 12/02/19 20:22 12/02/19 20:22 Discharge - Discharge Clinical Impression: Post-nasal drainage Allergic rhinitis Qualifiers: Allergic rhinitis trigger: other Allergic rhinitis seasonality: seasonal Qualified Code(s): J30.89 - Other allergic rhinitis Condition: Good Disposition: HOME, SELF-CARE Additional Instructions: You are seen in the emergency department tonight and check for your concerns regarding your throat. Suggested that you use a warm salt water gargle continue your usual medications and monitor the symptoms closely. If you develop pain, fever, difficulty swallowing you may be checked by your primary care doctor or if your symptoms are severe you may return to the emergency department for further evaluation and treatment. HOME CARE INSTRUCTIONS & INFORMATION: Thank you for choosing us for your me dical needs. We hope you're satisfied with the care you received. After you leave, you must properly care for your problem and, at the same time, observe its progress. Any condition can change. Some illnesses can change rapidly over hours or days. If your condition worsens, return to the Emergency Department or see your physician promptly. ABOUT YOUR X-RAYS AND EKG'S: If you had an EKG or X-rays taken, they have been read by the Emergency Physician. The X-rays and EKG's will also be read by a Radiologist or Clinical Account Executive within 24 hours. If discrepancies are noted, you will be notified by telephone. Please be certain the ED has a correct telephone number & address where you can be reached. Also, realize that some fractures or abnormalities do not show up on initial X-rays. If your symptoms continue, see your physician. ABOUT YOUR LABORATORY TEST: If you had laboratory tests, the results have been reviewed by the Emergency Physician. Some test results (for example cultures) may not be available for several days. You will be contacted if any test result shows you need additional treatment. Please be certain the ED has a correct telephone number and address where you can be reached. ABOUT YOUR MEDICATIONS: You will receive instructions on how to take your medicine on the prescription label you receive. Additional information may be provided by the Pharmacy. If you have questions afterwards, call the ED for clarification or further instructions. Some prescribed medications may cause drowsiness. Do not perform tasks such as driving a car or operating machinery without consulting your Pharmacist. If you feel you need a refill of pain medication, your condition will need re-evaluation. Please do not call for a refill of any medication. ABOUT YOUR SIGNATURE: Signature of this document acknowledges to followin. Understanding that you received emergency treatment and that you may be released before al medical problems are known or treated. Please be certain the ED has a correct phone number & address where you can be reached. 2. Acknowledgement that you will arrange for follow-up care as recommended. 3. Authorization for the Emergency Physician to provide information to your follow-up Physician in order to maximize your care. AT ANY TIME, IF YOUR SYMPTOMS CHANGE SIGNIFICANTLY OR WORSEN OR YOU DEVELOP NEW SYMPTOMS, RETURN TO THE EMERGENCY DEPARTMENT IMMEDIATELY FOR RE-EVALUATION. OUR GOAL IS TO PROVIDE EXCELLENT MEDICAL CARE! WE HOPE THAT WE HAVE MET YOUR EXPECTATIONS DURING YOUR EMERGENCY DEPARTMENT VISIT AND THAT YOU FEEL YOU HAVE RECEIVED EXCELLENT CARE! Referrals: GIANCARLO CHANCE MD [Primary Care Provider] - Follow up as needed
== END 2019-12-02 20:59 | disposition home or self-care (01) ==
LOC: ER 20:12
DX: J45.909 Unspecified asthma, uncomplicated (principal); R09.82 Postnasal drip; R05 Cough
CPT/HCPCS: 99283

== ENCOUNTER 2019-12-16 14:08 | Emergency (ER) | payer MEDICAID ==
[2019-12-16 14:15] VITALS: BP 111/81
--- NOTE | 2019-12-16 14:32 | ER Document Report ---
HPI - HPI Patient complains to provider of: fall Time Seen by Provider: 12/16/19 14:14 Onset: This afternoon Onset/Duration: Sudden Pain Level: 0 Context: Patient states he slipped on water in the kitchen and fell hitting his ribs against the countertop. Patient denies any pain symptoms at this time. Patient denies any bruising or obvious wound although wanted to be evaluated for possible internal problems. Patient also states that he has been losing weight and he lost a pound over the past 4 days. Patient states that he has not been eating regularly as he has had problems with his food stamps. Patient well- known to the emergency department and frequently presents anxious over his health. Associated Symptoms: None Exacerbated by: Denies Relieved by: Denies Similar symptoms previously: No Recently seen / treated by doctor: No - ROS ROS below otherwise negative: Yes Systems Reviewed and Negative: Yes All other systems reviewed and negative - CONSTITUTIONAL Constitutional: DENIES: Fever - NEURO Neurology: DENIES: Weakness - CARDIOVASCULAR Cardiovascular: DENIES: Chest pain - RESPIRATORY Respiratory: DENIES: Trouble Breathing - GASTROINTESTINAL Gastrointestinal: DENIES: Abdominal Pain, Nausea, Patient vomiting - MUSCULOSKELETAL Musculoskeletal: DENIES: Back Pain - DERM Skin Color: Normal Skin Problems: None Past Medical History - General Information source: Patient - Social History Smoking Status: Never Smoker Frequency of alcohol use: None Drug Abuse: None Lives with: Alone Family History: Reviewed & Not Pertinent Patient has suicidal ideation: No Patient has homicidal ideation: No Pulmonary Medical History: Reports: Hx Asthma, Hx Bronchitis GI Medical History: Reports: Hx Gastroesophageal Reflux Disease, Hx Irritable Bowel - Constipation Musculoskeletal Medical History: Reports Hx Arthritis, Reports Hx Musculoskeletal Trauma Psychiatric Medical History: Reports: Hx Anxiety, Hx Bipolar Disorder, Hx Depression, Hx Personality Disorder, Hx Schizoaffective Disorder, Hx Schizophrenia Traumatic Medical History: Reports: Hx Fractures - Finger fracture Past Surgical History: Reports: Hx Abdominal Surgery, Hx Appendectomy, Hx Cholecystectomy, Hx Orthopedic Surgery - Immunizations Immunizations up to date: Yes Hx Diphtheria, Pertussis, Tetanus Vaccination: Yes - 2012 Hx Pneumococcal Vaccination: 08/23/00 Vertical Provider Document - CONSTITUTIONAL Agree With Documented VS: Yes Exam Limitations: No Limitations General Appearance: WD/WN, No Apparent Distress - INFECTION CONTROL TRAVEL OUTSIDE OF THE [place] IN LAST 30 DAYS: No - HEENT HEENT: Atraumatic, Normocephalic - NECK Neck: Normal Inspection, Supple - RESPIRATORY Respiratory: Breath Sounds Normal, No Respiratory Distress, Chest Non-Tender. negative: Rales, Rhonchi, Wheezing - CARDIOVASCULAR Cardiovascular: Regular Rate, Regular Rhythm, No Murmur - GI/ABDOMEN Gastrointestinal: Abdomen Soft, Abdomen Non-Tender, No Organomegaly - BACK Back: Normal Inspection - MUSCULOSKELETAL/EXTREMETIES Musculoskeletal/Extremeties: MAEW - NEURO Level of Consciousness: Awake, Alert, Appropriate Motor/Sensory: No Motor Deficit - DERM Integumentary: Warm, Dry, No Rash Course - Vital Signs Vital signs: Temp Pulse Resp BP Pulse Ox 98.9 F 88 18 111/81 98 12/16/19 14:15 12/16/19 14:12 12/16/19 14:12 12/16/19 14:12 12/16/19 14:12 Discharge - Discharge Clinical Impression: Normal exam, Anxiety about health Fall Qualifiers: Encounter type: initial encounter Qualified Code(s): W19.XXXA - Unspecified fall, initial encounter Condition: Stable Disposition: HOME, SELF-CARE Instructions: Acetaminophen, Anxiety ([facility]) Additional Instructions: Return immediately for any new or worsening symptoms Followup with your primary care provider, call tomorrow to make a followup appointment Referrals: GIANCARLO CHANCE MD [Primary Care Provider] - Follow up as needed
== END 2019-12-16 14:35 | disposition home or self-care (01) ==
LOC: ER 14:08
DX: F41.9 Anxiety disorder, unspecified (principal); W19.XXXA Unspecified fall, initial encounter; Z90.49 Acquired absence of other specified parts of digestive tract
CPT/HCPCS: 99283

== ENCOUNTER 2019-12-19 17:19 | Emergency (ER) | payer MEDICAID ==
--- NOTE | 2019-12-19 17:27 | ER Document Report ---
HPI - HPI Patient complains to provider of: Right knee pain Time Seen by Provider: 12/19/19 17:24 Onset: Yesterday Onset/Duration: Persistent Quality of pain: Achy Context: 34-year-old male presents emergency department with complaints of right knee pain. Reports he hurt his knee while riding his bike yesterday. He reports he hurt his knee while he was getting off the bike. No other complaints. Patient points to ecchymosis on the medial side of his right knee. Associated Symptoms: None Exacerbated by: Denies Relieved by: Denies Similar symptoms previously: No Recently seen / treated by doctor: Yes - REPRODUCTIVE Reproductive: DENIES: : Past Medical History - General Information source: Patient - Social History Smoking Status: Unknown if Ever Smoked Lives with: Alone Family History: Reviewed & Not Pertinent Patient has suicidal ideation: No Patient has homicidal ideation: No Pulmonary Medical History: Reports: Hx Asthma, Hx Bronchitis GI Medical History: Reports: Hx Gastroesophageal Reflux Disease, Hx Irritable Bowel - Constipation Musculoskeletal Medical History: Reports Hx Arthritis, Reports Hx Musculoskeletal Trauma Psychiatric Medical History: Reports: Hx Anxiety, Hx Bipolar Disorder, Hx Depression, Hx Personality Disorder, Hx Schizoaffective Disorder, Hx Schizophrenia Traumatic Medical History: Reports: Hx Fractures - Finger fracture Past Surgical History: Reports: Hx Abdominal Surgery, Hx Appendectomy, Hx Cholecystectomy, Hx Orthopedic Surgery - Immunizations Immunizations up to date: Yes Hx Diphtheria, Pertussis, Tetanus Vaccination: Yes - 2012 Hx Pneumococcal Vaccination: 08/23/00 Vertical Provider Document - CONSTITUTIONAL Agree With Documented VS: Yes Exam Limitations: No Limitations General Appearance: WD/WN, No Apparent Distress - INFECTION CONTROL TRAVEL OUTSIDE OF THE [place] IN LAST 30 DAYS: No - HEENT HEENT: Atraumatic, Normocephalic - NECK Neck: Supple - RESPIRATORY Respiratory: No Respiratory Distress - CARDIOVASCULAR Cardiovascular: Regular Rate - MUSCULOSKELETAL/EXTREMETIES Musculoskeletal/Extremeties: MAEW, FROM, Tender, Eccymosis - Small little area of ecchymosis noted on the medial of right knee. No erythema no swelling no obvious deformity - NEURO Level of Consciousness: Awake, Alert, Appropriate Motor/Sensory: No Motor Deficit Course - Re-evaluation Re-evalutation: 12/19/19 18:00 34-year-old male presents to the emergency department complaining of right knee pain after he hurt his knee getting off his bike yesterday. Very small area of ecchymosis noted to the medial left knee. No obvious deformity no swelling no erythema no warmth. Patient was instructed on ibuprofen and ice pack for pain. He verbalized understanding. Discharge - Discharge Clinical Impression: Right knee pain Condition: Stable Disposition: HOME, SELF-CARE Instructions: Use of [id number]-[id number] Ibuprofen ([facility]), Ice & Elevation ([facility]) Additional Instructions: *You have been evaluated for right knee pain *Rest/Ice/Elevate *Follow up with your primary care provider within 1 week for recheck for continued pain *Take ibuprofen as indicated *Return to ED for worsening condition, changes, needs Referrals: GIANCARLO CHANCE MD [Primary Care Provider] - Follow up as needed
[2019-12-19 17:32] VITALS: BP 101/71
== END 2019-12-19 17:27 | disposition home or self-care (01) ==
LOC: ER 17:19
DX: M25.561 Pain in right knee (principal); Z90.49 Acquired absence of other specified parts of digestive tract
CPT/HCPCS: 99283

== ENCOUNTER 2020-01-06 17:04 | Emergency (ER) | payer MEDICAID, OTHER ==
[2020-01-06 17:10] VITALS: BP 108/69
--- NOTE | 2020-01-06 17:24 | ER Document Report ---
HPI - HPI Patient complains to provider of: ringing in his ears, pain earlier none now Time Seen by Provider: 01/06/20 17:19 Onset: This afternoon Onset/Duration: Gone Quality of pain: No pain Severity: None Pain Level: 0 Context: 34-year-old male presented to ED for complaint of some ringing in his ears after he got here and he stated he did have some indigestion earlier but he does not have that now. He states he does not understand why he is not allowed to go to his primary care anymore that they told her that he has been discharged from the practice and he needs a new doctor to go to. Associated Symptoms: Other - He had some indigestion earlier none now some ringing in his ears. denies: Nausea, Vomiting, Rhinnorhea, Sinus pain/drainage, Shortness of breath, Slow to respond, Sore throat, Sweating, Weakness Exacerbated by: Denies Relieved by: Denies Similar symptoms previously: Yes Recently seen / treated by doctor: Yes - ROS ROS below otherwise negative: Yes - CONSTITUTIONAL Constitutional: DENIES: Fever, Chills - EENT Notes: Intermittent ringling in his ears - GASTROINTESTINAL Gastrointestinal: REPORTS: Abdominal Pain - REPRODUCTIVE Reproductive: DENIES: : Past Medical History - General Information source: Patient - Social History Smoking Status: Never Smoker Chew tobacco use (# tins/day): No Frequency of alcohol use: None Drug Abuse: None Family History: Reviewed & Not Pertinent Patient has homicidal ideation: No - Past Medical History Cardiac Medical History: Reports: None Pulmonary Medical History: Reports: Hx Asthma, Hx Bronchitis Neurological Medical History: Reports: None Endocrine Medical History: Reports: None Renal/ Medical History: Reports: None Malignancy Medical History: Reports None GI Medical History: Reports: Hx Gastroesophageal Reflux Disease, Hx Irritable Bowel - Constipation Musculoskeletal Medical History: Reports Hx Arthritis, Reports Hx Musculoskeletal Trauma Skin Medical History: Reports None Psychiatric Medical History: Reports: Hx Anxiety, Hx Bipolar Disorder, Hx Depression, Hx Personality Disorder, Hx Schizoaffective Disorder, Hx Schizophrenia Traumatic Medical History: Reports: Hx Fractures - Finger fracture Infectious Medical History: Reports: None Past Surgical History: Reports: Hx Abdominal Surgery, Hx Appendectomy, Hx Cholecystectomy, Hx Orthopedic Surgery - Immunizations Immunizations up to date: Yes Hx Diphtheria, Pertussis, Tetanus Vaccination: Yes - 2012 Hx Pneumococcal Vaccination: 08/23/00 Vertical Provider Document - CONSTITUTIONAL Agree With Documented VS: Yes Exam Limitations: No Limitations General Appearance: WD/WN, No Apparent Distress - INFECTION CONTROL TRAVEL OUTSIDE OF THE [place] IN LAST 30 DAYS: No - HEENT HEENT: Atraumatic, Normal ENT Exam, Normocephalic, PERRLA - NECK Neck: Normal Inspection, Supple - RESPIRATORY Respiratory: Breath Sounds Normal, No Respiratory Distress, Chest Non-Tender - CARDIOVASCULAR Cardiovascular: Regular Rate, Regular Rhythm, No Murmur - GI/ABDOMEN Gastrointestinal: Abdomen Soft, Abdomen Non-Tender, No Organomegaly, Normal Bowel Sounds - BACK Back: Normal Inspection - MUSCULOSKELETAL/EXTREMETIES Musculoskeletal/Extremeties: MAEW, FROM, Non-Tender - NEURO Level of Consciousness: Awake, Alert, Appropriate - DERM Integumentary: Warm, Dry, No Rash Course - Vital Signs Vital signs: Temp Pulse Resp BP Pulse Ox 99.1 F 100 20 108/69 98 01/06/20 17:10 01/06/20 17:09 01/06/20 17:09 01/06/20 17:09 01/06/20 17:09 Discharge - Discharge Clinical Impression: Ringing in his ear Condition: Stable Disposition: HOME, SELF-CARE Additional Instructions: You were seen today for ringing in your ear. Your ears are clear there is no infection at this time there is no drainage behind your ears. Acetaminophen Acetaminophen may be taken for pain relief or fever control. It's much safer than aspirin, offering a wider range of "safe" dosages. It is safe during . Some brand names are Tylenol, Panadol, Datril, Anacin 3, Tempra, and Liquiprin. Acetaminophen can be repeated every four hours. The following are maximum recommended dosages: WEIGHT Dose Drops Elixir Chewable(80mg) (LBS.) drprs=droppers tsp=teaspoon 6 40 mg .4 ml (1/2) 6-11 80 mg .8 ml (full) 1/2 tsp 1 tab 12-16 120 mg 1 1/2 drprs 3/4 tsp 1 1/2 tabs 17-23 160 mg 2 drprs 1 tsp 2 tabs 24-30 240 mg 3 drprs 1 1/2 tsp 3 tabs 30-35 320 mg 2 tsp 4 tabs 36-41 360 mg 2 1/4 tsp 4 1/2 tabs 42-47 400 mg 2 1/2 tsp 5 tabs 48-53 480 mg 3 tsp 6 tabs 54-59 520 mg 3 1/4 tsp 6 1/2 tabs 60-64 560 mg 3 1/2 tsp 7 tabs 65-70 600 mg 3 3/4 tsp 7 1/2 tabs 71-76 640 mg 4 tsp 8 tabs 77-82 720 mg 4 1/2 tsp 9 tabs 83-88 800 mg 5 tsp 10 tabs >89 pounds or adults 650 mg to 900 mg Acetaminophen can be repeated every four hours. Maximum daily dose not to exceed 4000 mg. These maximum recommended dosages are slightly higher than the dosages writt en on the product container, but these dosages are very safe and well below the toxic dosage for acetaminophen. FOLLOW-UP CARE: If you have been referred to a physician for follow-up care, call the physicians office for an appointment as you were instructed or within the next two days. If you experience worsening or a significant change in your symptoms, notify the physician immediately or return to the Emergency Department at any time for re-evaluation. Referrals: SADAF PIRES MD [ACTIVE STAFF] - Follow up as needed [facility] [Provider Group] - Follow up as needed [facility] [Provider Group] - Follow up as needed
== END 2020-01-06 17:24 | disposition home or self-care (01) ==
LOC: ER 17:04
DX: H93.13 Tinnitus, bilateral (principal); H92.03 Otalgia, bilateral; K30 Functional dyspepsia; J45.909 Unspecified asthma, uncomplicated
CPT/HCPCS: 99283

== ENCOUNTER 2020-01-07 14:00 | Emergency (ER) | payer MEDICAID ==
[2020-01-07 14:19] VITALS: BP 104/73
--- NOTE | 2020-01-07 14:47 | ER Document Report ---
HPI - HPI Time Seen by Provider: 01/07/20 14:32 Pain Level: 0 Notes: 34-year-old male patient presents to the emergency department after multiple recent visits. Patient reports that he was coughing today when he coughed up a black object. Patient is concerned it may be rat poop. Patient reports he has a rat in his apartment. Patient has a photo of the object he spit up and he also has it with him. He denies any other complaints today. - REPRODUCTIVE Reproductive: DENIES: : Past Medical History - General Information source: Patient - Social History Smoking Status: Never Smoker Chew tobacco use (# tins/day): No Frequency of alcohol use: None Drug Abuse: None Family History: Reviewed & Not Pertinent Patient has homicidal ideation: No Pulmonary Medical History: Reports: Hx Asthma, Hx Bronchitis GI Medical History: Reports: Hx Gastroesophageal Reflux Disease, Hx Irritable Bowel - Constipation Musculoskeletal Medical History: Reports Hx Arthritis, Reports Hx Musculoskeletal Trauma Psychiatric Medical History: Reports: Hx Anxiety, Hx Bipolar Disorder, Hx Depression, Hx Personality Disorder, Hx Schizoaffective Disorder, Hx Schizophrenia Traumatic Medical History: Reports: Hx Fractures - Finger fracture Past Surgical History: Reports: Hx Abdominal Surgery, Hx Appendectomy, Hx Cholecystectomy, Hx Orthopedic Surgery - Immunizations Immunizations up to date: Yes Hx Diphtheria, Pertussis, Tetanus Vaccination: Yes - 2012 Hx Pneumococcal Vaccination: 08/23/00 Vertical Provider Document - CONSTITUTIONAL Notes: PHYSICAL EXAMINATION: GENERAL: Well-appearing, well-nourished and in no acute distress. HEAD: Atraumatic, normocephalic. EYES: Pupils equal round extraocular movements intact, conjunctiva are normal. ENT: Nares patent NECK: Normal range of motion LUNGS: No respiratory distress Musculoskeletal: Normal range of motion NEUROLOGICAL: Normal speech, normal gait. PSYCH: Normal mood, normal affect. SKIN: Warm, Dry, normal turgor, no rashes or lesions noted. - INFECTION CONTROL TRAVEL OUTSIDE OF THE [place] IN LAST 30 DAYS: No Course - Re-evaluation Re-evalutation: Patient with no acute complaints. Patient will be discharged home at this time. - Vital Signs Vital signs: Temp Pulse Resp BP Pulse Ox 99.3 F 115 H 16 104/73 96 01/07/20 14:32 01/07/20 14:06 01/07/20 14:06 01/07/20 14:06 01/07/20 14:06 Discharge - Discharge Clinical Impression: Examination Condition: Stable Disposition: HOME, SELF-CARE Additional Instructions: I believe the object that you coughed up is probably a dried piece of sputum. Someone will call you if they feel there is any abnormality with this please take Tylenol or ibuprofen for any aches or pains you have. Please follow-up with your primary care provider. Please return to the emergency department for any life-threatening complaints. Referrals: GIANCARLO CHANCE MD [Primary Care Provider] - Follow up as needed
== END 2020-01-07 14:50 | disposition home or self-care (01) ==
LOC: ER 14:00
DX: Z04.89 Encounter for examination and observation for other specified reasons (principal); R05 Cough; J45.909 Unspecified asthma, uncomplicated
CPT/HCPCS: 99283

== ENCOUNTER 2020-01-10 13:38 | Emergency (ER) | payer MEDICAID ==
[2020-01-10 13:43] VITALS: BP 130/76
--- NOTE | 2020-01-10 14:11 | ER Document Report ---
HPI - HPI Patient complains to provider of: gum question Time Seen by Provider: 01/10/20 14:05 Onset: Other Onset/Duration: Sudden Pain Level: Denies Context: 34-year-old male with history of asthma and mental health issues presents to the emergency department with complaints of darkened gums. He reports he is worried he may have some gum disease that will go into his lungs. He reports he read about it online. He does have a dental appointment for January 17 but was worried and scared to wait until that time. He denies fever vomiting diarrhea. Associated Symptoms: None Exacerbated by: Denies Relieved by: Denies Similar symptoms previously: No Recently seen / treated by doctor: No - CONSTITUTIONAL Constitutional: DENIES: Fever, Chills - REPRODUCTIVE Reproductive: DENIES: : Past Medical History - General Information source: Patient - Social History Smoking Status: Unknown if Ever Smoked Chew tobacco use (# tins/day): No Frequency of alcohol use: None Drug Abuse: None Lives with: Alone Family History: Reviewed & Not Pertinent Patient has suicidal ideation: No Patient has homicidal ideation: No Pulmonary Medical History: Reports: Hx Asthma, Hx Bronchitis GI Medical History: Reports: Hx Gastroesophageal Reflux Disease, Hx Irritable Bowel - Constipation Musculoskeletal Medical History: Reports Hx Arthritis, Reports Hx Musculoskeletal Trauma Psychiatric Medical History: Reports: Hx Anxiety, Hx Bipolar Disorder, Hx Depression, Hx Personality Disorder, Hx Schizoaffective Disorder, Hx Schizophrenia Traumatic Medical History: Reports: Hx Fractures - Finger fracture Past Surgical History: Reports: Hx Abdominal Surgery, Hx Appendectomy, Hx Cholecystectomy, Hx Orthopedic Surgery - Immunizations Immunizations up to date: Yes Hx Diphtheria, Pertussis, Tetanus Vaccination: Yes - 2012 Hx Pneumococcal Vaccination: 08/23/00 Vertical Provider Document - CONSTITUTIONAL Agree With Documented VS: Yes Exam Limitations: No Limitations General Appearance: WD/WN, No Apparent Distress - INFECTION CONTROL TRAVEL OUTSIDE OF THE [place] IN LAST 30 DAYS: No - HEENT HEENT: Atraumatic, Normocephalic. negative: Conjuctival Injection Notes: No obvious dental decay. no darkened gums noted no bleeding from the gums no swelling or erythema. - NECK Neck: Supple - RESPIRATORY Respiratory: No Respiratory Distress - CARDIOVASCULAR Cardiovascular: Regular Rate - MUSCULOSKELETAL/EXTREMETIES Musculoskeletal/Extremeties: RIGO MCBRIDE - NEURO Level of Consciousness: Awake, Alert, Appropriate Motor/Sensory: No Motor Deficit - DERM Integumentary: Warm, Dry Course - Re-evaluation Re-evalutation: 01/10/20 16:48 This 34-year-old male with past history of asthma and mental health issues presents with concerns over gum disease. Reports he notices his gums were darkened. He read about it online and is concerned he will get an infection in his lungs because of this. Patient's oral mucosal is intact no open sores or wounds no swelling or erythema. He was instructed on the importance of continuing to brush his teeth well and follow-up with the dentist as scheduled next week. He verbalized understanding to all instructions. - Vital Signs Vital signs: Temp Pulse Resp BP Pulse Ox 98.9 F 80 18 130/76 H 98 01/10/20 13:56 01/10/20 13:42 01/10/20 13:42 01/10/20 13:42 01/10/20 13:42 Discharge - Discharge Clinical Impression: gum concern Condition: Stable Disposition: HOME, SELF-CARE Additional Instructions: *You have been evaluated for gum concern *Scotrun your teeth *Follow up with the dentist as scheduled next week *Return to the emergency department for concerns, needs Referrals: GIANCARLO CHANCE MD [Primary Care Provider] - Follow up as needed
== END 2020-01-10 14:13 | disposition home or self-care (01) ==
LOC: ER 13:38
DX: K06.9 Disorder of gingiva and edentulous alveolar ridge, unspecified (principal); J45.909 Unspecified asthma, uncomplicated
CPT/HCPCS: 99282

== ENCOUNTER 2020-01-11 12:53 | Emergency (ER) | payer MEDICAID ==
--- NOTE | 2020-01-11 12:56 | ER Document Report ---
HPI - HPI Time Seen by Provider: 01/11/20 12:55 Notes: 34-year-old male presents emergency room with complaints of right lower dental pain that is been bothering for couple weeks. He is concerned he may need to be on antibiotics due to aching pain. Patient is requesting dental films to be flako en to be faxed over a dentist for concern of dental decay today. Patient was seen in the emergency room yesterday for same issue. Patient does have a dental visit on January 17. Denies fevers, chills, chest pain,palpitations, shortness of breath, dyspnea, nausea, vomiting, diarrhea, abdominal pain,weakness, bowel or bladder dysfunction, saddle anesthesia, numbness or tingling in bilateral upper or lower extremities equally, muscle paralysis, weakness in bilateral upper or lower extremities equally or rash. - REPRODUCTIVE Reproductive: DENIES: : Past Medical History - General Information source: Patient - Social History Smoking Status: Current Every Day Smoker Family History: Reviewed & Not Pertinent Pulmonary Medical History: Reports: Hx Asthma, Hx Bronchitis GI Medical History: Reports: Hx Gastroesophageal Reflux Disease, Hx Irritable Bowel - Constipation Musculoskeletal Medical History: Reports Hx Arthritis, Reports Hx Musculoskel etal Trauma Psychiatric Medical History: Reports: Hx Anxiety, Hx Bipolar Disorder, Hx Depression, Hx Personality Disorder, Hx Schizoaffective Disorder, Hx Schizophrenia Traumatic Medical History: Reports: Hx Fractures - Finger fracture Past Surgical History: Reports: Hx Abdominal Surgery, Hx Appendectomy, Hx Cholecystectomy, Hx Orthopedic Surgery - Immunizations Immunizations up to date: Yes Hx Diphtheria, Pertussis, Tetanus Vaccination: Yes - 2012 Hx Pneumococcal Vaccination: 08/23/00 Vertical Provider Document - CONSTITUTIONAL Agree With Documented VS: Yes Exam Limitations: No Limitations General Appearance: WD/WN Notes: PHYSICAL EXAMINATION:reviewed vital signs by RN GENERAL: Well-appearing, well-nourished and in no acute distress. HEAD: Atraumatic, normocephalic. EYES: Pupils equal round and reactive to light, extraocular movements intact, sclera anicteric, conjunctiva are normal. ENT: Nares patent, oropharynx clear without exudates. Moist mucous membranes. TM with effusion bilaterally, no erythema. TMs intact. ##30 gingiva with swelling, erythema. No drainage or open wounds. No fluctuance. No facial swelling. Poor oral dentition, right lower jaw with mild dental caries, no definite swelling or effusion. no trismus noted. Uvula is midline NECK: Normal range of motion, supple without lymphadenopathy LUNGS: Breath sounds clear to auscultation bilaterally and equal. No wheezes rales or rhonchi. HEART: Regular rate and rhythm without murmurs ABDOMEN: Soft, nontender, nondistended abdomen. No guarding, no rebound. No masses appreciated. Musculoskeletal: Normal range of motion, no pitting or edema. No cyanosis. NEUROLOGICAL: Cranial nerves grossly intact. Normal speech, normal gait. Normal sensory, motor exams PSYCH: Normal mood, normal affect. SKIN: Warm, Dry, normal turgor, no rashes or lesions noted. - INFECTION CONTROL TRAVEL OUTSIDE OF THE [place] IN LAST 30 DAYS: No Course - Re-evaluation Re-evalutation: 01/11/20 13:47 Afebrile vital stable no distress. Nurses notes reviewed. Discussed with patient that he will be started on penicillin, take every 6 hours for 5 days. Complete course. Take with food. Advised to follow-up with a dentist. Advised to alternate between Tylenol and ibuprofen for pain control. After performing a Medical Screening Examination, I estimate there is LOW risk for a DEEP SPACE INFECTION (e.g., RHETT'S ANGINA OR RETROPHARYNGEAL ABSCESS), MENINGITIS, INTRACRANIAL HEMORRHAGE, or AIRWAY COMPROMISE, thus I consider the discharge disposition reasonable. Also, there is no evidence or peritonitis, sepsis, or toxicity. I have reevaluated this patient multiple times and no significant life threatening changes are noted. The patient and I have discussed the diagnosis and risks, and we agree with discharging home with close follow-up with the understanding that symptoms and presentations can change. We also discussed returning to the Emergency Department immediately if new or worsening symptoms occur. We have discussed the symptoms which are most concerning (e.g., changing or worsening pain, trouble swallowing or breathing, neck stiffness or fever) that necessitate immediate return. Discharge - Discharge Clinical Impression: Dental caries Condition: Stable Disposition: HOME, SELF-CARE Instructions: Penicillin V K ([facility]), [facility], Toothache ([facility]), Dentist Additional Instructions: Return immediately for any new or worsening symptoms. Follow up with primary care provider, call tomorrow to make followup appointment. Prescriptions: Penicillin V Potassium [Penicillin Vk 500 mg Tablet] 500 mg PO Q6H 5 Days #15 tablet Referrals: OJEBUOBOH,IBIKUNLE, MD [Primary Care Provider] - Follow up as needed
[2020-01-11 13:00] VITALS: BP 126/93
== END 2020-01-11 13:09 | disposition home or self-care (01) ==
LOC: ER 12:53
DX: K02.9 Dental caries, unspecified (principal); K08.89 Other specified disorders of teeth and supporting structures; F17.200 Nicotine dependence, unspecified, uncomplicated; J45.909 Unspecified asthma, uncomplicated
CPT/HCPCS: 99281

== ENCOUNTER 2020-01-14 10:00 | Emergency (ER) | payer MEDICAID ==
[2020-01-14 10:04] VITALS: BP 105/73
--- NOTE | 2020-01-14 10:13 | ER Document Report ---
HPI - HPI Patient complains to provider of: rib concerns Time Seen by Provider: 01/14/20 10:06 Onset: This morning Onset/Duration: Sudden Quality of pain: No pain Context: 34-year-old male with history of asthma and mental health issues who is a frequent visitor to this emergency department presents today with concerns over his ribs being uneven. Reports he slept on the left side and is worried that his ribs are uneven now. No other complaints denies fever vomiting diarrhea. Denies cough or shortness of breath. Associated Symptoms: None Exacerbated by: Denies Relieved by: Denies Similar symptoms previously: No Recently seen / treated by doctor: No - REPRODUCTIVE Reproductive: DENIES: : Past Medical History - General Information source: Patient - Social History Smoking Status: Unknown if Ever Smoked Frequency of alcohol use: None Drug Abuse: None Lives with: Alone - Referral Family History: Reviewed & Not Pertinent Patient has suicidal ideation: No Patient has homicidal ideation: No Pulmonary Medical History: Reports: Hx Asthma, Hx Bronchitis GI Medical History: Reports: Hx Gastroesophageal Reflux Disease, Hx Irritable Bowel - Constipation Musculoskeletal Medical History: Reports Hx Arthritis, Reports Hx Musculoskeletal Trauma Psychiatric Medical History: Reports: Hx Anxiety, Hx Bipolar Disorder, Hx Depression, Hx Personality Disorder, Hx Schizoaffective Disorder, Hx Schizophrenia Traumatic Medical History: Reports: Hx Fractures - Finger fracture Past Surgical History: Reports: Hx Abdominal Surgery, Hx Appendectomy, Hx Cholecystectomy, Hx Orthopedic Surgery - Immunizations Immunizations up to date: Yes Hx Diphtheria, Pertussis, Tetanus Vaccination: Yes - 2012 Hx Pneumococcal Vaccination: 08/23/00 Vertical Provider Document - CONSTITUTIONAL Agree With Documented VS: Yes Exam Limitations: No Limitations General Appearance: WD/WN, No Apparent Distress - Nontoxic looking disheveled - INFECTION CONTROL TRAVEL OUTSIDE OF THE [place] IN LAST 30 DAYS: No - HEENT HEENT: Atraumatic, Normocephalic - NECK Neck: Normal Inspection, Supple. negative: Lymphadenopathy-Left, L ymphadenopathy-Right - RESPIRATORY Respiratory: Breath Sounds Normal - Respiratory rate even and unlabored no retractions, No Respiratory Distress, Chest Non-Tender - CARDIOVASCULAR Cardiovascular: Regular Rate, Regular Rhythm - GI/ABDOMEN Gastrointestinal: Abdomen Soft, Abdomen Non-Tender - BACK Back: Normal Inspection - MUSCULOSKELETAL/EXTREMETIES Musculoskeletal/Extremeties: RIGO MCBRIDE - NEURO Level of Consciousness: Awake, Alert, Appropriate Motor/Sensory: No Motor Deficit - DERM Integumentary: Warm, Dry Course - Re-evaluation Re-evalutation: 01/14/20 10:26 34-year-old male presents the emergency department with complaints that he is worried his sleep ribs are uneven because he slept wrong. Respiratory rate even unlabored. Emotional support provided. Patient discharged instructed to follow-up with his primary care for further concerns. - Vital Signs Vital signs: Temp Pulse Resp BP Pulse Ox 99.2 F 91 16 105/73 96 01/14/20 10:02 01/14/20 10:02 01/14/20 10:02 01/14/20 10:02 01/14/20 10:02 Discharge - Discharge Clinical Impression: rib concern Condition: Stable Disposition: HOME, SELF-CARE Additional Instructions: *You have been evaluated for a rib concern *Follow up with Dr Lamb within a week for recheck *Return to the emergency department for worsening symptoms concerns needs Referrals: GIANCARLO LAMB MD [Primary Care Provider] - Follow up in 1 week
== END 2020-01-14 10:25 | disposition home or self-care (01) ==
LOC: ER 10:00
DX: Z04.89 Encounter for examination and observation for other specified reasons (principal); Z90.49 Acquired absence of other specified parts of digestive tract
CPT/HCPCS: 99283

== ENCOUNTER 2020-01-15 09:19 | Emergency (ER) | payer MEDICAID ==
[2020-01-15 09:30] VITALS: BP 134/85
[2020-01-15] MEDS ORDERED: PENICILLIN V POTASSIUM 500 MG TABLET PO ONE (10:01)
--- NOTE | 2020-01-15 10:06 | ER Document Report ---
HPI - HPI Patient complains to provider of: Lost 2 of his pills Time Seen by Provider: 01/15/20 09:58 Onset: Yesterday Onset/Duration: Gradual Quality of pain: No pain, Sharp Pain Level: Denies Associated Symptoms: None Exacerbated by: Denies Relieved by: Denies Similar symptoms previously: Yes Recently seen / treated by doctor: Yes - ROS ROS below otherwise negative: Yes - CONSTITUTIONAL Constitutional: DENIES: Fever, Chills - EENT EENT: DENIES: Sore Throat, Ear Pain, Nasal Drainage-Clear, Nasal Drainage- Purulent, Congestion, Eye problems - NEURO Neurology: DENIES: Headache, Weakness, Vision blurred, Dizzinesss / Vertigo - CARDIOVASCULAR Cardiovascular: DENIES: Chest pain - RESPIRATORY Respiratory: DENIES: Trouble Breathing, Coughing - GASTROINTESTINAL Gastrointestinal: DENIES: Abdominal Pain, Nausea, Patient vomiting, Diarrhea, Constipation, Black / Bloody Stools - URINARY Urinary: DENIES: Dysuria, Urgency, Frequency - REPRODUCTIVE Reproductive: DENIES: :, Postmenopausal, Abnormal bleeding / discharge - MUSCULOSKELETAL Musculoskeletal: DENIES: Extremity pain, Back Pain, Neck Pain, Swelling - DERM Skin Color: Normal Skin Problems: None Past Medical History - General Information source: Patient - Social History Smoking Status: Never Smoker Frequency of alcohol use: None Drug Abuse: None Lives with: Family Family History: Reviewed & Not Pertinent Patient has homicidal ideation: No - Past Medical History Cardiac Medical History: Reports: None Pulmonary Medical History: Reports: Hx Asthma, Hx Bronchitis EENT Medical History: Reports: None Neurological Medical History: Reports: None Endocrine Medical History: Reports: None Renal/ Medical History: Reports: None Malignancy Medical History: Reports None GI Medical History: Reports: Hx Gastroesophageal Reflux Disease, Hx Irritable Bowel - Constipation Musculoskeletal Medical History: Reports Hx Arthritis, Reports Hx Musculoskeletal Trauma Skin Medical History: Reports None Psychiatric Medical History: Reports: Hx Anxiety, Hx Bipolar Disorder, Hx Depression, Hx Personality Disorder, Hx Schizoaffective Disorder, Hx Schizophrenia Traumatic Medical History: Reports: Hx Fractures - Finger fracture Infectious Medical History: Reports: None Past Surgical History: Reports: Hx Abdominal Surgery, Hx Appendectomy, Hx Cholecystectomy, Hx Orthopedic Surgery - Immunizations Immunizations up to date: Yes Hx Diphtheria, Pertussis, Tetanus Vaccination: Yes - 2012 Hx Pneumococcal Vaccination: 08/23/00 Vertical Provider Document - CONSTITUTIONAL Agree With Documented VS: Yes Exam Limitations: No Limitations General Appearance: WD/WN, No Apparent Distress - INFECTION CONTROL TRAVEL OUTSIDE OF THE [place] IN LAST 30 DAYS: No - HEENT HEENT: Atraumatic, Conjuctival Injection, Normal ENT Exam, Normocephalic, PERRLA - NECK Neck: Normal Inspection, Supple, Thyroid Normal - RESPIRATORY Respiratory: Breath Sounds Normal, No Respiratory Distress, Chest Non-Tender - CARDIOVASCULAR Cardiovascular: Regular Rate, Regular Rhythm, No Murmur - GI/ABDOMEN Gastrointestinal: Abdomen Soft, Abdomen Non-Tender, No Organomegaly, Normal Bowel Sounds - BACK Back: Normal Inspection - MUSCULOSKELETAL/EXTREMETIES Musculoskeletal/Extremeties: MAEW, FROM, Non-Tender - NEURO Level of Consciousness: Awake, Alert, Appropriate Motor/Sensory: No Motor Deficit, No Sensory Deficit, No Pronator Drift Deep Tendon Reflexes: 2+ - DERM Integumentary: Warm, Dry, No Rash Course - Re-evaluation Re-evalutation: 01/15/20 10:04 Patient got 2 of his Pen-Vee K he was given to at this time so he can take 1 now and 1 tonight. - Vital Signs Vital signs: Temp Pulse Resp BP Pulse Ox 98.2 F 81 16 134/85 H 97 01/15/20 09:48 01/15/20 09:28 01/15/20 09:28 01/15/20 09:28 01/15/20 09:28 Discharge - Discharge Clinical Impression: Needed 2 doses of antibiotics Disposition: HOME, SELF-CARE Additional Instructions: You were seen today because you are dropped 2 doses of your antibiotic. We did replace your 2 doses of antibiotic. You should not need to come back for your next dose I have given you a dose to take tonight Acetaminophen Acetaminophen may be taken for pain relief or fever control. It's much safer than aspirin, offering a wider range of "safe" dosages. It is safe during . Some brand names are Tylenol, Panadol, Datril, Anacin 3, Tempra, and Liquiprin. Acetaminophen can be repeated every four hours. The following are maximum recommended dosages: WEIGHT Dose Drops Elixir Chew able(80mg) (LBS.) drprs=droppers tsp=teaspoon 6 40 mg .4 ml (1/2) 6-11 80 mg .8 ml (full) 1/2 tsp 1 tab 12-16 120 mg 1 1/2 drprs 3/4 tsp 1 1/2 tabs 17-23 160 mg 2 drprs 1 tsp 2 tabs 24-30 240 mg 3 drprs 1 1/2 tsp 3 tabs 30-35 320 mg 2 tsp 4 tabs 36-41 360 mg 2 1/4 tsp 4 1/2 tabs 42-47 400 mg 2 1/2 tsp 5 tabs 48-53 480 mg 3 tsp 6 tabs 54-59 520 mg 3 1/4 tsp 6 1/2 tabs 60-64 560 mg 3 1/2 tsp 7 tabs 65-70 600 mg 3 3/4 tsp 7 1/2 tabs 71-76 640 mg 4 tsp 8 tabs 77-82 720 mg 4 1/2 tsp 9 tabs 83-88 800 mg 5 tsp 10 tabs >89 pounds or adults 650 mg to 900 mg Acetaminophen can be repeated every four hours. Maximum daily dose not to exceed 4000 mg. These maximum recommended dosages are slightly higher than the dosages written on the product container, but these dosages are very safe and well below the toxic dosage for acetaminophen. Ibuprofen Ibuprofen is an excellent, safe drug for pain control. In addition, it has potent antiinflammatory effects which are beneficial, especially in the treatment of injuries, arthritis, or tendonitis. It's best to take ibuprofen wi th food. Persons with ulcer disease or allergy to aspirin should notify their physician of this before taking ibuprofen. Take the medication exactly as prescribed. Don't take additional doses u nless instructed to do so by your doctor. If you develop wheezing, shortness of breath, hives, faintness, stomach pain, vomiting, or dark black stools, return for re-evaluation at once. FOLLOW-UP CARE: If you have been referred to a physician for follow-up care, call the physicians office for an appointment as you were instructed or within the next two days. If you experience worsening or a significant change in your symptoms, notify the physician immediately or return to the Emergency Department at any time for re-evaluation. Referrals: GIANCARLO CHANCE MD [Primary Care Provider] - Follow up as needed
== END 2020-01-15 10:07 | disposition home or self-care (01) ==
LOC: ER 09:19
DX: Z76.0 Encounter for issue of repeat prescription (principal)
CPT/HCPCS: 99281; J3490

== ENCOUNTER 2020-01-16 11:06 | Emergency (ER) | payer MEDICAID ==
[2020-01-16 11:16] VITALS: BP 128/84
--- NOTE | 2020-01-16 11:25 | ER Document Report ---
HPI - HPI Patient complains to provider of: Short of breath Time Seen by Provider: 01/16/20 11:20 Onset: Just prior to arrival Onset/Duration: Better Quality of pain: No pain Severity: None Pain Level: Denies Context: 34-year-old male presented to ED for complaint of shortness of breath when he woke up. He states he is not usually short of breath when he wakes up. He usually gets short of breath later in the day. This he is on Symbicort. He states he went over to Dr. Winslow's office and waited there for a long time and did not get seen and so he came to the emergency room. He is speaking in full sentences. His O2 sat is 98 to 99%. Lungs are clear to auscultation there is no shortness of breath at this time. He is very vocal and speaking in full sentences. Associated Symptoms: Shortness of breath Exacerbated by: Denies Relieved by: Denies Similar symptoms previously: Yes Recently seen / treated by doctor: Yes - ROS ROS below otherwise negative: Yes - CONSTITUTIONAL Constitutional: DENIES: Fever, Chills - EENT EENT: DENIES: Sore Throat, Ear Pain, Nasal Drainage-Clear, Nasal Drainage-P urulent, Congestion, Eye problems - NEURO Neurology: DENIES: Headache, Weakness, Vision blurred, Dizzinesss / Vertigo - CARDIOVASCULAR Cardiovascular: DENIES: Chest pain - RESPIRATORY Respiratory: DENIES: Trouble Breathing, Coughing - GASTROINTESTINAL Gastrointestinal: DENIES: Abdominal Pain, Nausea, Patient vomiting, Diarrhea, Constipation, Black / Bloody Stools - URINARY Urinary: DENIES: Dysuria, Urgency, Frequency - REPRODUCTIVE Reproductive: DENIES: :, Postmenopausal, Abnormal bleeding / discharge - MUSCULOSKELETAL Musculoskeletal: DENIES: Extremity pain, Back Pain, Neck Pain, Swelling - DERM Skin Color: Normal Skin Problems: None Past Medical History - General Information source: Patient - Social History Smoking Status: Never Smoker Frequency of alcohol use: None Drug Abuse: None Family History: Reviewed & Not Pertinent Patient has suicidal ideation: No Patient has homicidal ideation: No - Past Medical History Cardiac Medical History: Reports: None Pulmonary Medical History: Reports: Hx Asthma, Hx Bronchitis EENT Medical History: Reports: None Neurological Medical History: Reports: None Endocrine Medical History: Reports: None Renal/ Medical History: Reports: None Malignancy Medical History: Reports None GI Medical History: Reports: Hx Gastroesophageal Reflux Disease, Hx Irritable Bowel - Constipation Musculoskeletal Medical History: Reports Hx Arthritis, Reports Hx Musculoskeletal Trauma Skin Medical History: Reports None Psychiatric Medical History: Reports: Hx Anxiety, Hx Bipolar Disorder, Hx Depression, Hx Personality Disorder, Hx Schizoaffective Disorder, Hx Schizophrenia Traumatic Medical History: Reports: Hx Fractures - Finger fracture Infectious Medical History: Reports: None Past Surgical History: Reports: Hx Abdominal Surgery, Hx Appendectomy, Hx Cholecystectomy, Hx Orthopedic Surgery - Immunizations Immunizations up to date: Yes Hx Diphtheria, Pertussis, Tetanus Vaccination: Yes - 2012 Hx Pneumococcal Vaccination: 08/23/00 Vertical Provider Document - CONSTITUTIONAL Agree With Documented VS: Yes Exam Limitations: No Limitations - INFECTION CONTROL TRAVEL OUTSIDE OF THE [place] IN LAST 30 DAYS: No - HEENT HEENT: Atraumatic, Normal ENT Exam, Normocephalic, PERRLA - NECK Neck: Normal Inspection - RESPIRATORY Respiratory: Breath Sounds Normal, No Respiratory Distress, Chest Non-Tender - CARDIOVASCULAR Cardiovascular: Regular Rate, Regular Rhythm, No Murmur - GI/ABDOMEN Gastrointestinal: Abdomen Soft, Abdomen Tender, No Organomegaly, Normal Bowel Sounds - REPRODUCTIVE Male Genitalia: Normal Inspection - BACK Back: Normal Inspection - MUSCULOSKELETAL/EXTREMETIES Musculoskeletal/Extremeties: MAEW, FROM, Non-Tender - NEURO Level of Consciousness: Awake, Alert, Appropriate Motor/Sensory: No Motor Deficit, No Sensory Deficit, No Pronator Drift Deep Tendon Reflexes: 2+ - DERM Integumentary: Warm, Dry, No Rash Course - Re-evaluation Re-evalutation: 01/16/20 20:56 Patient had no shortness of breath, lungs were clear, patient was in no acute distress at this visit. He was discharged home with instructions to follow-up with his primary care doctor. - Vital Signs Vital signs: Temp Pulse Resp BP Pulse Ox 98.7 F 71 16 128/84 H 98 01/16/20 11:09 01/16/20 11:09 01/16/20 11:09 01/16/20 11:09 01/16/20 11:09 Discharge - Discharge Clinical Impression: Shortness of breath Condition: Stable Disposition: HOME, SELF-CARE Additional Instructions: Your lungs are clear, your speaking in full sentences, you are not short of breath at this time. You have no need for your blood to be drawn today. You can follow-up with your primary care doctor. I have greeted and performed a rapid initial assessment of this patient. A comprehensive ED assessment and evaluation of the patient, analysis of test results and completion of medical decision making process will be conducted by an additional ED providers. Referrals: GIANCARLO CHANCE MD [Primary Care Provider] - Follow up as needed
== END 2020-01-16 11:33 | disposition home or self-care (01) ==
LOC: ER 11:06
DX: R06.02 Shortness of breath (principal); J45.909 Unspecified asthma, uncomplicated
CPT/HCPCS: 99284

== ENCOUNTER 2020-01-16 13:27 | Emergency (ER) | payer MEDICAID ==
[2020-01-16 13:33] VITALS: BP 126/72
--- NOTE | 2020-01-16 13:54 | ER Document Report ---
ED Medical Screen (RME) - General Chief Complaint: Bloody Stools Stated Complaint: BLOOD IN STOOL Time Seen by Provider: 01/16/20 13:52 Primary Care Provider: GIANCARLO CHANCE MD [Primary Care Provider] - Follow up as needed Mode of Arrival: Ambulatory Information source: Patient Notes: 34-year-old male presented to ED for complaint of bloody stools. This is his second visit today he was also here yesterday. He states that he had a bloody stool yesterday and then he had one today he. He states that the stool was soft. When he came in the first time today he did asked to have blood drawn. But he did not have any logical reason to have any blood drawn the first time. This gentleman does come to the emergency room frequently. We will get some blood and urine and have a stool check on this gentleman to ensure that there is no active bloody stools at this time. I have greeted and performed a rapid initial assessment of this patient. A comprehensive ED assessment and evaluation of the patient, analysis of test results and completion of medical decision making process will be conducted by an additional ED providers. TRAVEL OUTSIDE OF THE [place] IN LAST 30 DAYS: No - Related Data Allergies/Adverse Reactions: No Known Allergies Allergy (Verified 01/16/20 13:47) Home Medications: symbicort Past Medical History - Social History Drug Abuse: None Family history: Reviewed & Not Pertinent Pulmonary Medical History: Reports: Hx Asthma, Hx Bronchitis GI Medical History: Reports: Hx Gastroesophageal Reflux Disease, Hx Irritable Bowel - Constipation Musculoskeltal Medical History: Reports Hx Arthritis, Reports Hx Musculoskeletal Trauma Psychiatric Medical History: Reports: Hx Anxiety, Hx Bipolar Disorder, Hx Depression, Hx Personality Disorder, Hx Schizoaffective Disorder, Hx Schizophrenia Traumatic Medical History: Reports: Hx Fractures - Finger fracture Past Surgical History: Reports: Hx Abdominal Surgery, Hx Appendectomy, Hx Cholecystectomy, Hx Orthopedic Surgery - Immunizations Immunizations up to date: Yes Hx Diphtheria, Pertussis, Tetanus Vaccination: Yes - 2012 Physical Exam - Vital signs Vitals: Pulse Resp BP Pulse Ox 72 16 126/72 H 98 01/16/20 13:33 01/16/20 13:33 01/16/20 13:33 01/16/20 13:33 Course - Vital Signs Vital signs: Temp Pulse Resp BP Pulse Ox 98.1 F 72 16 126/72 H 98 01/16/20 13:48 01/16/20 13:33 01/16/20 13:33 01/16/20 13:33 01/16/20 13:33 Doctor's Discharge - Discharge Referrals: GIANCARLO CHANCE MD [Primary Care Provider] - Follow up as needed
--- NOTE | 2020-01-16 14:24 | ER Document Report ---
ED GI Bleed / Rectal Pain - General Chief Complaint: Bloody Stools Stated Complaint: BLOOD IN STOOL Time Seen by Provider: 01/16/20 13:52 Primary Care Provider: GIANCARLO CHANCE MD [Primary Care Provider] - Follow up as needed Mode of Arrival: Ambulatory Notes: 34-year-old male presents to the ER complaining of blood in his stool. The patient states he has seen blood on his tissue when wiping the last several days. Stool has been brown the patient is a frequent visitor to the ER and was here earlier this morning and yesterday. He did not mention this at all to anybody the last couple visits. He denies any chest pain no shortness of breath denies dizziness lightheadedness. Denies extremity numbness tingling or weakness. The patient denies any abdominal pain. States his rectum does feel little sore denies any sexual intercourse or instrumentation of the area. Dates he seen blood on the tissue while wiping. He denies any fever chills cough or sore throat denies any high risk exposure to coronavirus. TRAVEL OUTSIDE OF THE [place] IN LAST 30 DAYS: No - Related Data Allergies/Adverse Reactions: No Known Allergies Allergy (Verified 01/16/20 13:47) Home Medications: symbicort Past Medical History - General Information source: Patient - Social History Smoking Status: Never Smoker Drug Abuse: None Family History: Reviewed & Not Pertinent Patient has homicidal ideation: No Pulmonary Medical History: Reports: Hx Asthma, Hx Bronchitis GI Medical History: Reports: Hx Gastroesophageal Reflux Disease, Hx Irritable Bowel - Constipation Musculoskeletal Medical History: Reports Hx Arthritis, Reports Hx Musculoskeletal Trauma Psychiatric Medical History: Reports: Hx Anxiety, Hx Bipolar Disorder, Hx Depression, Hx Personality Disorder, Hx Schizoaffective Disorder, Hx Schizophrenia Traumatic Medical History: Reports: Hx Fractures - Finger fracture Past Surgical History: Reports: Hx Abdominal Surgery, Hx Appendectomy, Hx Cholecystectomy, Hx Orthopedic Surgery - Immunizations Immunizations up to date: Yes Hx Diphtheria, Pertussis, Tetanus Vaccination: Yes - 2012 Hx Pneumococcal Vaccination: 08/23/00 Review of Systems - Review of Systems Constitutional: No symptoms reported. denies: Chills, Fever EENT: No symptoms reported Gastrointestinal: Blood streaked bowels, Rectal bleeding. denies: Diarrhea, Nausea, Vomiting, Constipation, Black stools Genitourinary: denies: Dysuria, Hematuria Male Genitourinary: No symptoms reported Skin: No symptoms reported Neurological/Psychological: denies: Loss of power, Paralysis, Headaches -: Yes All other systems reviewed and negative Physical Exam - Vital signs Vitals: Pulse Resp BP Pulse Ox 72 16 126/72 H 98 01/16/20 13:33 01/16/20 13:33 01/16/20 13:33 01/16/20 13:33 - Notes Notes: GENERAL_APPEARANCE: well_nourished, alert, cooperative, agitated, multiple police officers surrounding his room VITALS: reviewed, see vital signs table. HEAD: no_swelling\tenderness on the head. EYES: Clear anicteric, conjunctiva_clear. NOSE: no_nasal_discharge. MOUTH: (-)decreased moisture. THROAT: no_tonsilar_inflammation, no_airway_obstruction. no_lymphadenopathy NECK: supple, no_neck_tenderness, (-)thyromegaly. BACK: no_back_tenderness. CHEST_WALL: no_chest_tenderness. LUNGS: no_wheezing, no_rales, no_rhonchi, (-)accessory muscle use, good air exchange bilateral. HEART: normal_rate, normal_rhythm, normal_S1, normal_S2, (-)S3, (-)S4, no_murmur, no_rub. ABDOMEN: normal_BS, soft, no_abd_tenderness, (-)guarding, (-)rebound, no_organ omegaly, no_abd_masses. EXTREMITIES: good pulses in all_extremities, no_swelling\tenderness in the extremities, no_edema. SKIN: warm, dry, good_color, no_rash. MENTAL_STATUS: speech_clear, oriented_X_3, agitated affect, responds_appropriately to questions. NEURO: Neg Motor or Sensory Deficits on exam, CN 2-12 intact, DTR 2+ symmetric x 4, No cerbellar signs PSYCH: Denies suicidal homicidal thoughts denies visual auditory hallucinations bizarre affect agitated affect Course - Re-evaluation Re-evalutation: 01/16/20 14:22 34-year-old male frequent visitor to the emergency department has been here at least daily the last week. The patient complains of some rectal bleeding especially wiping. On rectal exam with nurse present as bioinformatics assistant there looks to be some irritation excoriation possibly even a small fissure noted at the 12 o'clock position. The bright the stool was brown but there was guaiac positive on the card. There is no obvious masses on exam there is good tone. Patient is very agitated he asked for the rectal exam but did not tolerate it very well. We did draw blood and will check his hemoglobin compared to old hemoglobin but this looks to be more excoriation or fissure he denies any rectal intercourse or instrumentation. He denies any abdominal pain. 01/16/20 15:43 Hemoglobin is 13.4 last hemoglobin we have is 14. This not significantly different the last blood work was in October. We will give the patient some Anusol cream for generalized fissure and proctitis. We will have him follow-up with gastroenterology. If worse or not improving in 48 to 72 hours return to the ER - Vital Signs Vital signs: Temp Pulse Resp BP Pulse Ox 98.1 F 72 16 126/72 H 98 01/16/20 13:48 01/16/20 13:33 01/16/20 13:33 01/16/20 13:33 01/16/20 13:33 - Laboratory Result Diagrams: 01/16/20 14:03 01/16/20 14:03 Laboratory results interpreted by me: 01/16/20 01/16/20 14:03 14:03 WBC 2.7 L Hgb 13.4 L RDW 14.4 H Eos % (Auto) 20.3 H Baso % (Auto) 2.4 H Absolute Neuts (auto) 1.0 L Seg Neutrophils % 38.5 L Total Bilirubin 1.5 H Discharge - Discharge Clinical Impression: Rectal fissure, Proctitis Condition: Good Disposition: HOME, SELF-CARE Instructions: Rectal Bleeding, Unclear Cause ([facility]), Anal Fissure ([facility]) Prescriptions: Hydrocortisone [Anusol-Hc] 30 gm TP TID #30 cream..g. Referrals: GIANCARLO CHANCE MD [Primary Care Provider] - Follow up as needed
[2020-01-16 14:33] LABS: ABSOLUTE BASOPHILS # (AUTO) 0.1 10^3/uL (0.0-0.2); ABSOLUTE EOSINOPHILS # (AUTO) 0.5 10^3/uL (0.0-0.6); ABSOLUTE MONOCYTES (AUTO) 0.2 10^3/uL (0.1-1.4); APPEARANCE,URINE CLEAR; BASOPHILS % (AUTO) 2.4 % (0-2); BILIRUBIN,URINE NEGATIVE (NEGATIVE); COLOR,URINE YELLOW; GLUCOSE, URINE NEGATIVE (NEGATIVE); KETONES,URINE NEGATIVE (NEGATIVE); LEUKOCYTE ESTERASE,URINE NEGATIVE (NEGATIVE); MEAN CORPUSCULAR VOLUME 80 fl (80-97); NITRITE,URINE NEGATIVE (NEGATIVE); PROTEIN,URINE NEGATIVE (NEGATIVE); TOTAL CELLS COUNTED % (AUTO) 100 %; URINE SPECIFIC GRAVITY 1.015; UROBILINOGEN,URINE NEGATIVE mg/dL (<2.0); WHITE BLOOD COUNT 2.7 10^3/uL (4.0-10.5)
[2020-01-16 14:41] LABS: ABSOLUTE LYMPHOCYTES (AUTO) 0.8 10^3/uL (0.5-4.7); EOSINOPHILS % (AUTO) 20.3 % (0-6); HEMATOCRIT 39.4 % (37.9-51.0); HEMOGLOBIN 13.4 g/dL (13.5-17.0); LYMPHOCYTES % (AUTO) 31.2 % (13-45); MEAN CORPUSCULAR HEMOGLOBIN 27.1 pg (27.0-33.4); MONOCYTES % (AUTO) 7.6 % (3-13); PLATELET COUNT 205 10^3/uL (150-450); RED BLOOD COUNT 4.94 10^6/uL (4.35-5.55); RED CELL DISTRIBUTION WIDTH 14.4 % (11.5-14.0); SEGMENTED NEUTROPHILS % (AUTO) 38.5 % (42-78)
[2020-01-16 14:57] LABS: ALBUMIN 4.4 g/dL (3.5-5.0); ALKALINE PHOSPHATASE 66 U/L (38-126); ANION GAP 6 (5-19); ASPARTATE AMINO TRANSFERASE 23 U/L (17-59); BILIRUBIN,DIRECT 0.1 mg/dL (0.0-0.4); BILIRUBIN,TOTAL 1.5 mg/dL (0.2-1.3); BLOOD UREA NITROGEN 12 mg/dL (7-20); CALCIUM 9.2 mg/dL (8.4-10.2); CARBON DIOXIDE 29 mmol/L (22-30); CHLORIDE 104 mmol/L (98-107); GLUCOSE 85 mg/dL (75-110); POTASSIUM 4.8 mmol/L (3.6-5.0); TOTAL PROTEIN 7.1 g/dL (6.3-8.2)
== END 2020-01-16 16:07 | disposition home or self-care (01) ==
LOC: ER 13:27
DX: K60.2 Anal fissure, unspecified (principal); K62.89 Other specified diseases of anus and rectum; R19.5 Other fecal abnormalities
CPT/HCPCS: 36415; 80053; 81001; 85025; 99283

== ENCOUNTER 2020-01-17 10:52 | Emergency (ER) | payer MEDICAID ==
--- NOTE | 2020-01-17 11:33 | ER Document Report ---
ED Medical Screen (RME) - General Chief Complaint: Epigastric Pain Stated Complaint: ABDOMINAL CONCERN Time Seen by Provider: 01/17/20 11:31 Primary Care Provider: GIANCARLO CHANCE MD [Primary Care Provider] - Follow up as needed Mode of Arrival: Ambulatory Information source: Patient Notes: 34-year-old male presented to ED for complaint of abdominal pain in the epigastric area. He states he is not having any nausea or vomiting or fevers she just has pain in his epigastric area. He was seen here yesterday twice but states this is a new pain today. I have greeted and performed a rapid initial assessment of this patient. A comprehensive ED assessment and evaluation of the patient, analysis of test results and completion of medical decision making process will be conducted by an additional ED providers. TRAVEL OUTSIDE OF THE [place] IN LAST 30 DAYS: No - Related Data Allergies/Adverse Reactions: No Known Allergies Allergy (Verified 01/17/20 11:25) Home Medications: singulair Past Medical History - Social History Chew tobacco use (# tins/day): No Frequency of alcohol use: None Drug Abuse: None Family history: Reviewed & Not Pertinent Pulmonary Medical History: Reports: Hx Asthma, Hx Bronchitis GI Medical History: Reports: Hx Gastroesophageal Reflux Disease, Hx Irritable Bowel - Constipation Musculoskeltal Medical History: Reports Hx Arthritis, Reports Hx Musculoskeletal Trauma Psychiatric Medical History: Reports: Hx Anxiety, Hx Bipolar Disorder, Hx Depression, Hx Personality Disorder, Hx Schizoaffective Disorder, Hx Schizophrenia Traumatic Medical History: Reports: Hx Fractures - Finger fracture Past Surgical History: Reports: Hx Abdominal Surgery, Hx Appendectomy, Hx Cholecystectomy, Hx Orthopedic Surgery - Immunizations Immunizations up to date: Yes Hx Diphtheria, Pertussis, Tetanus Vaccination: Yes - 2012 Physical Exam - Vital signs Vitals: Temp Pulse Resp BP Pulse Ox 98.8 F 74 18 131/75 H 96 01/17/20 10:55 01/17/20 10:55 01/17/20 10:55 01/17/20 10:55 01/17/20 10:55 Course - Vital Signs Vital signs: Temp Pulse Resp BP Pulse Ox 98.8 F 74 18 131/75 H 96 01/17/20 11:26 01/17/20 10:55 01/17/20 10:55 01/17/20 10:55 01/17/20 10:55 Doctor's Discharge - Discharge Referrals: GIANCARLO CHANCE MD [Primary Care Provider] - Follow up as needed
--- NOTE | 2020-01-17 11:49 | RADIOLOGY REPORT (SQ) ---
EXAM DESCRIPTION: ACUTE ABDOMEN SERIES IMAGES COMPLETED DATE/TIME: 01/17/2020 11:38 am REASON FOR STUDY: abdominal pain COMPARISON: 11/27/2018. NUMBER OF VIEWS: PA and lateral views of the chest from 11/09/2019 and AP views of the abdomen from . TECHNIQUE: Frontal chest, supine abdomen and upright/decubitus abdomen radiographic images acquired. LIMITATIONS: None. FINDINGS: CHEST: The cardiomediastinal silhouette and pulmonary vasculature are within normal limits . There is no consolidation, pleural effusion or pneumothorax. FREE AIR: None. BOWEL GAS PATTERN: No dilated loops of bowel or differential air-fluid levels CALCIFICATIONS: Pelvic phleboliths. HARDWARE: None in the abdomen. SOFT TISSUES: No abnormality. BONES: No acute abnormality. OTHER: No other finding. IMPRESSION: 1. No acute cardiopulmonary process. 2. Nonobstructive bowel gas pattern. TECHNICAL DOCUMENTATION: JOB ID: [id number] 2010 [employer]- All Rights Reserved Reading location - IP/workstation name: [email or web address]
--- NOTE | 2020-01-17 12:53 | ER Document Report ---
Entered by TAVO DALLAS SCRIBE 01/17/20 1232 Acting as scribe for:SARA CHRISTIANSEN MD ED GI/ - General Chief Complaint: Epigastric Pain Stated Complaint: ABDOMINAL CONCERN Time Seen by Provider: 01/17/20 11:31 Primary Care Provider: GIANCARLO CHANCE MD [Primary Care Provider] - Follow up as needed Mode of Arrival: Ambulatory Information source: Patient Notes: This 34 year old male patient present to the emergency department today with complaints of mild abdominal pain. Patient states it is more uncomfortableness than pain being felt in his abdomen when doing motions such as bending forward. Patient states his last bowel movement was last night and it was normal. Patient denies nausea or vomiting. TRAVEL OUTSIDE OF THE [place] IN LAST 30 DAYS: No - Related Data Allergies/Adverse Reactions: No Known Allergies Allergy (Verified 01/17/20 11:25) Home Medications: singulair Past Medical History - General Information source: Patient - Social History Smoking Status: Unknown if Ever Smoked Chew tobacco use (# tins/day): No Frequency of alcohol use: None Drug Abuse: None Family History: Reviewed & Not Pertinent Patient has homicidal ideation: No Pulmonary Medical History: Reports: Hx Asthma, Hx Bronchitis GI Medical History: Reports: Hx Gastroesophageal Reflux Disease, Hx Irritable Bowel - Constipation Musculoskeletal Medical History: Reports Hx Arthritis, Reports Hx Musculoskeletal Trauma Psychiatric Medical History: Reports: Hx Anxiety, Hx Bipolar Disorder, Hx Depression, Hx Personality Disorder, Hx Schizoaffective Disorder, Hx Schizophrenia Traumatic Medical History: Reports: Hx Fractures - Finger fracture Past Surgical History: Reports: Hx Abdominal Surgery, Hx Appendectomy, Hx Cholecystectomy, Hx Orthopedic Surgery - Immunizations Immunizations up to date: Yes Hx Diphtheria, Pertussis, Tetanus Vaccination: Yes - 2012 Hx Pneumococcal Vaccination: 08/23/00 Review of Systems - Review of Systems Constitutional: No symptoms reported EENT: No symptoms reported Cardiovascular: No symptoms reported Respiratory: No symptoms reported Gastrointestinal: See HPI, Abdominal pain, Last bowel movement - last night. denies: Nausea, Vomiting Genitourinary: No symptoms reported Male Genitourinary: No symptoms reported Musculoskeletal: No symptoms reported Skin: No symptoms reported Hematologic/Lymphatic: No symptoms reported Neurological/Psychological: No symptoms reported -: Yes All other systems reviewed and negative Physical Exam - Vital signs Vitals: Temp Pulse Resp BP Pulse Ox 98.8 F 74 18 131/75 H 96 01/17/20 10:55 01/17/20 10:55 01/17/20 10:55 01/17/20 10:55 01/17/20 10:55 - General General appearance: Appears well, Alert In distress: None - HEENT Head: Normocephalic, Atraumatic Eyes: Normal Pupils: PERRL Neck: Supple - Respiratory Respiratory status: No respiratory distress Chest status: Nontender Breath sounds: Normal Chest palpation: Normal - Cardiovascular Rhythm: Regular Heart sounds: Normal auscultation, S1 appreciated, S2 appreciated Murmur: No - Abdominal Inspection: Healed incision - Periumbilical region Distension: No distension Bowel sounds: Normal Tenderness: No: Guarding, Rebound Organomegaly: No: Mass Notes: Limited exam due to patient not wanting his abdomen to be palpated. Patient states he is ticklish and his abdomen is tender. - Extremities General upper extremity: Normal inspection. No: Edema General lower extremity: Normal inspection. No: Edema - Neurological Neuro grossly intact: Yes Cognition: Normal Orientation: AAOx4 Speech: Normal - Psychological Associated symptoms: Normal affect, Normal mood - Skin Skin Temperature: Warm Skin Moisture: Dry Skin Color: Normal Course - Re-evaluation Re-evalutation: 01/17/20 12:48 Patient not showing any signs of distress denies any abdominal pain at this time. Denies nausea vomiting or fever. Denies diarrhea denies any blood in his stool. States his bowel movements have been regular. And not having any signs of gastroesophageal reflux disease at this time. - Vital Signs Vital signs: Temp Pulse Resp BP Pulse Ox 98.8 F 74 18 131/75 H 96 01/17/20 11:26 01/17/20 10:55 01/17/20 10:55 01/17/20 10:55 01/17/20 10:55 01/17/20 12:49 Vital signs stable. - Laboratory Laboratory results interpreted by me: Patient decided that he was not interested in any laboratories at this time. Therefore no labs were done. - Diagnostic Test Radiology reviewed: Image reviewed, Reports reviewed Radiology results interpreted by me: 01/17/20 12:49 Acute abdominal series shows normal exam no obstruction normal bowel gas pattern no free air. Chest x-ray 1 view no acute process. Discharge - Discharge Clinical Impression: Abdominal pain in male Condition: Stable Disposition: HOME, SELF-CARE Instructions: Abdominal Pain ([facility]) Additional Instructions: Abdominal Pain There are many causes of abdominal pain. Pain can mean a serious problem requiring surgery (such as appendicitis). It can also be an innocent problem that goes away on its own (such as a viral infection). Often, time must pass to determine the cause of pain. The physician does not feel that hospitalization is necessary, at present. Things may change within the next 24 hours. Call the doctor or come back for re- examination if any problems occur, such as: (1) Pain that becomes more severe, steady, or becomes concentrated in one specific area. Also, pain that is more severe with movement or coughing. (2) Vomiting that persists or becomes more frequent. (3) Blood in the vomitus, urine, or bowel movements. Blood in the stool may have a tarry or black appearance. (4) Shaking chills or fever greater than 100 degrees F. (5) The abdomen becomes more distended or swollen. (6) Bowel movements cease. (7) Failure to improve as expected. Recommend follow-up with primary physician. Recommend Tylenol if needed for pain. Please return to the emergency department if there is any further problems. Inasmuch as the exam today was limited with no lab work done only x- rays if there is any problems do not hesitate to return to the department this exam was limited based on the subject patient. Referrals: GIANCARLO CHANCE MD [Primary Care Provider] - Follow up as needed I personally performed the services described in the documentation, reviewed and edited the documentation which was dictated to the scribe in my presence, and it accurately records my words and actions.
[2020-01-17 13:09] VITALS: BP 105/68
== END 2020-01-17 13:05 | disposition home or self-care (01) ==
LOC: ER 10:52
DX: R10.13 Epigastric pain (principal)
CPT/HCPCS: 74022; 99284

== ENCOUNTER 2020-01-18 14:02 | Emergency (ER) | payer MEDICAID | END 2020-01-18 14:21 | disposition left against medical advice (07) | LOC: ER 14:02 | DX: Z53.21 Procedure and treatment not carried out due to patient leaving prior to being seen by health care provider (principal) ==

== ENCOUNTER 2020-01-18 20:45 | Emergency (ER) | payer MEDICAID ==
--- NOTE | 2020-01-18 22:57 | ER Document Report ---
HPI - HPI Time Seen by Provider: 01/18/20 22:50 Pain Level: 1 Context: Patient is a 34-year-old male who comes emergency department for chief complaint of pain to the right side of his neck. He states that he jerked his head earlier and he thinks he strained his neck. He states he had a headache earlier but it resolved. He denies vision changes, nausea or vomiting, focal numbness or weakness, or any current complaints. He denies any alcohol. He denies any other complaints. Patient has a history of schizophrenia and homelessness. - REPRODUCTIVE Reproductive: DENIES: : Past Medical History - General Information source: Patient - Social History Smoking Status: Never Smoker Frequency of alcohol use: None Drug Abuse: None Lives with: Family Family History: Reviewed & Not Pertinent Patient has homicidal ideation: No Pulmonary Medical History: Reports: Hx Asthma, Hx Bronchitis GI Medical History: Reports: Hx Gastroesophageal Reflux Disease, Hx Irritable Bowel - Constipation Musculoskeletal Medical History: Reports Hx Arthritis, Reports Hx Musculoskeletal Trauma Psychiatric Medical History: Reports: Hx Anxiety, Hx Bipolar Disorder, Hx Depression, Hx Personality Disorder, Hx Schizoaffective Disorder, Hx Schizophrenia Traumatic Medical History: Reports: Hx Fractures - Finger fracture Past Surgical History: Reports: Hx Abdominal Surgery, Hx Appendectomy, Hx Cholecystectomy, Hx Orthopedic Surgery - Immunizations Immunizations up to date: Yes Hx Diphtheria, Pertussis, Tetanus Vaccination: Yes - 2012 Hx Pneumococcal Vaccination: 08/23/00 Vertical Provider Document - CONSTITUTIONAL General Appearance: WD/WN, No Apparent Distress - INFECTION CONTROL TRAVEL OUTSIDE OF THE [place] IN LAST 30 DAYS: No - HEENT HEENT: Atraumatic, Normal ENT Exam - Normal ears, oropharyngeal exam, sinuses, nasal exam, eyes, Normocephalic - NECK Neck: Normal Inspection. negative: Lymphadenopathy-Left, Lymphadenopathy-Right - RESPIRATORY Respiratory: Breath Sounds Normal, No Respiratory Distress, Chest Non-Tender - CARDIOVASCULAR Cardiovascular: Regular Rate, Regular Rhythm - GI/ABDOMEN Gastrointestinal: Abdomen Soft, Abdomen Non-Tender. negative: Abdomen Tender - BACK Back: negative: Normal Inspection - . No nuchal rigidity. There is tenderness along the right trapezius muscle and minimally over the right paracervical musculature. No midline tenderness. No signs of trauma. Full range of motion of all extremities, normal distal neurovascular exam, no saddle anesthesia - MUSCULOSKELETAL/EXTREMETIES Musculoskeletal/Extremeties: MAEW, FROM, Non-Tender - NEURO Level of Consciousness: Awake, Alert, Appropriate Motor/Sensory: No Motor Deficit, No Sensory Deficit - DERM Integumentary: Warm, Dry, No Rash Course - Re-evaluation Re-evalutation: Patient with some tenderness in the right trapezius musculature and mildly in the right paracervical musculature. No trauma, no neurological deficits, patient with no current headache or any current symptoms otherwise. Discussed treatment recommendations, follow-up, and return precautions. Patient states understanding and agreement. - Vital Signs Vital signs: Temp Pulse Resp BP Pulse Ox 98.8 F 86 16 116/77 96 01/18/20 22:46 01/18/20 21:13 01/18/20 21:13 01/18/20 21:13 01/18/20 21:13 Discharge - Discharge Clinical Impression: Neck pain, Muscle strain Condition: Stable Disposition: HOME, SELF-CARE Additional Instructions: Your examination is consistent with strain of the muscle in your neck of the trapezius muscle. This does go away with time. I recommend heat to the area, the muscle relaxer as prescribed, ibuprofen, and rest. This should simply go away with time. Follow-up with primary care. Come back if you worsen including severe worsening pain, developing numbness, severe headache, vomiting, or any other concerning symptoms. Prescriptions: Methocarbamol [Robaxin 500 mg Tablet] 500 mg PO QID PRN #20 tablet PRN Reason: Referrals: GIANCARLO CHANCE MD [Primary Care Provider] - Follow up as needed
[2020-01-19 04:22] VITALS: BP 112/74
== END 2020-01-18 23:05 | disposition home or self-care (01) ==
LOC: ER 20:45
DX: S29.012A Strain of muscle and tendon of back wall of thorax, initial encounter (principal); X58.XXXA Exposure to other specified factors, initial encounter; M54.2 Cervicalgia; R51 Headache; Z90.49 Acquired absence of other specified parts of digestive tract; Z59.0 Homelessness
CPT/HCPCS: 99282

== ENCOUNTER 2020-01-21 11:42 | Emergency (ER) | payer MEDICAID ==
[2020-01-21 11:48] VITALS: BP 132/78
--- NOTE | 2020-01-21 12:09 | ER Document Report ---
HPI - HPI Pain Level: 2 Notes: 34-year-old male patient presents the emergency department concern for pressure in his left ear. Patient is also complaining of nasal congestion. He states symptoms just started this morning. Patient denies any other symptoms today. No fever no recent travel. - EENT EENT: REPORTS: Ear Pain - REPRODUCTIVE Reproductive: DENIES: : Past Medical History - General Information source: Patient - Social History Smoking Status: Current Every Day Smoker Chew tobacco use (# tins/day): No Frequency of alcohol use: None Drug Abuse: None Family History: Reviewed & Not Pertinent Patient has homicidal ideation: No Pulmonary Medical History: Reports: Hx Asthma, Hx Bronchitis GI Medical History: Reports: Hx Gastroesophageal Reflux Disease, Hx Irritable Bowel - Constipation Musculoskeletal Medical History: Reports Hx Arthritis, Reports Hx Musculoskeletal Trauma Psychiatric Medical History: Reports: Hx Anxiety, Hx Bipolar Disorder, Hx Depression, Hx Personality Disorder, Hx Schizoaffective Disorder, Hx Schizophrenia Traumatic Medical History: Reports: Hx Fractures - Finger fracture Past Surgical History: Reports: Hx Abdominal Surgery, Hx Appendectomy, Hx Cholecystectomy, Hx Orthopedic Surgery - Immunizations Immunizations up to date: Yes Hx Diphtheria, Pertussis, Tetanus Vaccination: Yes - 2012 Hx Pneumococcal Vaccination: 08/23/00 Vertical Provider Document - CONSTITUTIONAL Notes: PHYSICAL EXAMINATION: GENERAL: Well-appearing, well-nourished and in no acute distress. HEAD: Atraumatic, normocephalic. EYES: Pupils equal round extraocular movements intact, conjunctiva are normal. ENT: Nares patent with clear rhinorrhea, bilateral TMs unremarkable, bilateral canals unremarkable. Uvula midline, no tonsillar swelling noted. NECK: Normal range of motion LUNGS: No respiratory distress, lung sounds clear and equal bilaterally. Occasional cough. Musculoskeletal: Normal range of motion NEUROLOGICAL: Normal speech, normal gait. PSYCH: Normal mood, normal affect. SKIN: Warm, Dry, normal turgor, no rashes or lesions noted. - INFECTION CONTROL TRAVEL OUTSIDE OF THE [place] IN LAST 30 DAYS: No Course - Re-evaluation Re-evalutation: Patient will be prescribed Flonase for his nasal congestion and ear pressure. Patient verbalizes understanding and agreement this plan. Overall patient appears well and nontoxic. - Vital Signs Vital signs: Temp Pulse Resp BP Pulse Ox 98.2 F 84 16 132/78 H 98 01/21/20 11:49 01/21/20 11:46 01/21/20 11:46 01/21/20 11:46 01/21/20 11:46 Discharge - Discharge Clinical Impression: Sinus congestion Condition: Stable Disposition: HOME, SELF-CARE Additional Instructions: You may clean your ears out with either rubbing alcohol or hydrogen peroxide once daily. Please use the Flonase nasal spray as prescribed to help with your sinus congestion. Prescriptions: Fluticasone Propionate [Flonase Nasal [place] 50 Mcg/[place] 16 gm] 1 spray NASL Q12 #1 inhaler Referrals: GIANCARLO CHANCE MD [Primary Care Provider] - Follow up as needed
== END 2020-01-21 12:14 | disposition home or self-care (01) ==
LOC: ER 11:42
DX: R09.81 Nasal congestion (principal); F17.200 Nicotine dependence, unspecified, uncomplicated; Z90.49 Acquired absence of other specified parts of digestive tract
CPT/HCPCS: 99282

== ENCOUNTER 2020-01-21 20:21 | Emergency (ER) | payer MEDICAID ==
[2020-01-21 20:28] VITALS: BP 135/80
[2020-01-21] MEDS ORDERED: HYDROCORTISONE 1% CREAM 28.35 GM TP ONE (20:44)
--- NOTE | 2020-01-21 20:51 | ER Document Report ---
HPI - HPI Time Seen by Provider: 01/21/20 20:39 Onset: This afternoon Onset/Duration: Gradual Quality of pain: Burning Severity: Mild Pain Level: 1 Context: Patient is a 34-year-old male who returns to the emergency room because he forgot to complaints when he was here earlier today. Patient states that he has a little irritation in his left eye and is requesting to have normal saline flush used to flush it out. He denies any visual changes or tearing he just says that it is a little irritated. Patient also states that he is concerned about a little rash in the antecubital of the arms bilaterally. He denies being inside or outside even though he is riding his bike and he also states that he did stand at home. So patient is not sure where this rash does come from and wants treatment for that as well. Patient was treated earlier for sinus congestion most likely environmental in nature. Associated Symptoms: Allergy/hay fever Exacerbated by: Denies Relieved by: Denies Similar symptoms previously: No Recently seen / treated by doctor: Yes - ROS ROS below otherwise negative: Yes - CONSTITUTIONAL Constitutional: DENIES: Fever, Chills - EENT EENT: REPORTS: Eye problems - REPRODUCTIVE Reproductive: DENIES: : - DERM Skin Color: Other - A blotchy rash bilateral antecubital Past Medical History - General Information source: Patient - Social History Smoking Status: Never Smoker Frequency of alcohol use: None Drug Abuse: None Family History: Reviewed & Not Pertinent Patient has homicidal ideation: No Pulmonary Medical History: Reports: Hx Asthma, Hx Bronchitis GI Medical History: Reports: Hx Gastroesophageal Reflux Disease, Hx Irritable Bowel - Constipation Musculoskeletal Medical History: Reports Hx Arthritis, Reports Hx Musculoskeletal Trauma Psychiatric Medical History: Reports: Hx Anxiety, Hx Bipolar Disorder, Hx Depression, Hx Personality Disorder, Hx Schizoaffective Disorder, Hx Schizophrenia Traumatic Medical History: Reports: Hx Fractures - Finger fracture Past Surgical History: Reports: Hx Abdominal Surgery, Hx Appendectomy, Hx Cholecystectomy, Hx Orthopedic Surgery - Immunizations Immunizations up to date: Yes Hx Diphtheria, Pertussis, Tetanus Vaccination: Yes - 2012 Hx Pneumococcal Vaccination: 08/23/00 Vertical Provider Document - CONSTITUTIONAL Agree With Documented VS: Yes General Appearance: WD/WN - INFECTION CONTROL TRAVEL OUTSIDE OF THE [place] IN LAST 30 DAYS: No - HEENT HEENT: Atraumatic, PERRLA Notes: Examination of patient's eyes shows there to be no injection of the left conjunctiva. Does not appear to be swollen or red. The cornea appears clear through tangential light. Offered to do a stain on patient he was refused to stand and refused any further investigation. - NECK Neck: Normal Inspection - RESPIRATORY Respiratory: Breath Sounds Normal, No Respiratory Distress, Chest Non-Tender - CARDIOVASCULAR Cardiovascular: Regular Rate, Regular Rhythm - GI/ABDOMEN Gastrointestinal: Abdomen Soft - DERM Integumentary: Warm, Dry Notes: Examination patient the other area of concern is his bilateral antecubital. Patient has a slight maculopapular rash that is just slightly raised it is distributed in a confluent manner but they are just individualized red areas approximately 2 to 3 mm wide look approximately like a irritant type presentation. Course - Re-evaluation Re-evalutation: 01/21/20 20:48 We used 1 saline flush to flush patient's left eye he stated that he felt much better after we flushed it. . We applied hydrocortisone cream to patient's rash and he can take the rest home apply it twice a day. 01/21/20 20:49 Patient stated he does not want any eye stain or any other work-up he does wants to flush with the normal saline to make it feel better. - Vital Signs Vital signs: Temp Pulse Resp BP Pulse Ox 99 F 92 15 135/80 H 97 01/21/20 20:34 01/21/20 20:25 01/21/20 20:25 01/21/20 20:25 01/21/20 20:25 Discharge - Discharge Clinical Impression: Eye irritation Contact dermatitis Qualifiers: Contact dermatitis type: unspecified Contact dermatitis trigger: unspecified trigger Qualified Code(s): L25.9 - Unspecified contact dermatitis, unspecified cause Condition: Stable Disposition: HOME, SELF-CARE Instructions: Contact Dermatitis ([facility]) Additional Instructions: Your I just appears to have some irritation to it. The flushing of the eyes you can do 2-3 times a day with regular water. Take Benadryl along with the hydrocortisone cream which will stop the itching for the rash. Should any concerns or problems return here for recheck. Referrals: GIANCARLO CHANCE MD [Primary Care Provider] - Follow up as needed
[2020-01-21] MEDS ORDERED: HYDROCORTISONE 1% CREAM 28.35 GM ONE (21:03)
== END 2020-01-21 21:14 | disposition home or self-care (01) ==
LOC: ER 20:21
DX: L25.9 Unspecified contact dermatitis, unspecified cause (principal); H57.9 Unspecified disorder of eye and adnexa; Z90.49 Acquired absence of other specified parts of digestive tract
CPT/HCPCS: 99282; J3490

== ENCOUNTER 2020-01-22 05:49 | Emergency (ER) | payer MEDICAID ==
[2020-01-22 08:16] VITALS: BP 117/68
--- NOTE | 2020-01-22 08:29 | ER Document Report ---
Entered by MALU VERGARA SCRIBE 01/22/20 0802 Acting as scribe for:LENIN SOLIS MD ED Respiratory Problem - General Chief Complaint: Shortness Of Breath Stated Complaint: SHORTNESS OF BREATH Time Seen by Provider: 01/22/20 07:50 Primary Care Provider: GIANCARLO CHANCE MD [Primary Care Provider] - Follow up as needed Mode of Arrival: Ambulatory Information source: Patient Notes: This 34 year old male patient who is well known to this ED staff presents to the emergency department for the third time in the last 24 hours. Patient was seen twice overnight last night, the first time for left eye irritation and the second time for left ear pain. Patient states during this visit he "just wants to be sure there isn't any pneumonia" despite having no symptoms currently. Patient requesting to be discharged. TRAVEL OUTSIDE OF THE [place] IN LAST 30 DAYS: No - Related Data Allergies/Adverse Reactions: No Known Allergies Allergy (Verified 01/21/20 20:33) Past Medical History - General Information source: Patient, [facility] Records - Social History Smoking Status: Never Smoker Cigarette use (# per day): No Frequency of alcohol use: None Drug Abuse: None Lives with: Alone Family History: Reviewed & Not Pertinent Pulmonary Medical History: Reports: Hx Asthma, Hx Bronchitis GI Medical History: Reports: Hx Gastroesophageal Reflux Disease, Hx Irritable Bowel - Constipation Musculoskeletal Medical History: Reports Hx Arthritis, Reports Hx Musculoskeletal Trauma Psychiatric Medical History: Reports: Hx Anxiety, Hx Bipolar Disorder, Hx Depression, Hx Personality Disorder, Hx Schizoaffective Disorder, Hx Schizophrenia Traumatic Medical History: Reports: Hx Fractures - Finger fracture Past Surgical History: Reports: Hx Abdominal Surgery, Hx Appendectomy, Hx Cholecystectomy, Hx Orthopedic Surgery - Immunizations Immunizations up to date: Yes Hx Diphtheria, Pertussis, Tetanus Vaccination: Yes - 2012 Hx Pneumococcal Vaccination: 08/23/00 Review of Systems - Review of Systems Constitutional: No symptoms reported EENT: No symptoms reported Cardiovascular: No symptoms reported Respiratory: No symptoms reported Gastrointestinal: No symptoms reported Genitourinary: No symptoms reported Male Genitourinary: No symptoms reported Musculoskeletal: No symptoms reported Skin: No symptoms reported Hematologic/Lymphatic: No symptoms reported Neurological/Psychological: No symptoms reported -: Yes All other systems reviewed and negative Physical Exam - Vital signs Vitals: Temp Pulse Resp BP Pulse Ox 97.7 F 58 L 19 117/68 99 01/22/20 08:15 01/22/20 08:15 01/22/20 08:15 01/22/20 08:15 01/22/20 08:15 - Notes Notes: Physical Exam: General: Alert, appears at baseline. HEENT: Normocephalic. Atraumatic. PERRL. Extraocular movements intact. Oropharynx clear. Neck: Supple. Non-tender. Respiratory: No respiratory distress. Clear and equal breath sounds bilaterally. Cardiovascular: Regular rate and rhythm. Abdominal: Normal Inspection. Non-tender. No distension. Normal Bowel Sounds. Back: No gross abnormalities. Extremities: Moves all four extremities. Upper extremities: Normal inspection. Normal ROM. Lower extremities: Normal inspection. No edema. Normal ROM. Neurological: Normal cognition. AAOx4. Normal speech. Psychological: Normal affect. Normal Mood. Skin: Warm. Dry. Normal color. Course - Vital Signs Vital signs: Temp Pulse Resp BP Pulse Ox 97.7 F 58 L 19 117/68 99 01/22/20 08:15 01/22/20 08:15 01/22/20 08:15 01/22/20 08:15 01/22/20 08:15 Discharge - Discharge Clinical Impression: Shortness of breath Schizophrenia Qualifiers: Schizophrenia type: unspecified Qualified Code(s): F20.9 - Schizophrenia, unspecified Condition: Stable Disposition: HOME, SELF-CARE Additional Instructions: Normal Exam and Workup At this time, your examination and workup show no significant abnormality. No significant abnormal physical findings are noted. Although your examination and all studies that were ordered showed no significant abnormal finding, there are no examinations and no studies that are 100% accurate. There is always the possibility that some abnormality could exist and not be detected with physical examination or within the limits and capabilities of laboratory and other studies. You should return or follow up as you were instructed on your visit today for further evaluation if your symptoms do not resolve. Referrals: GIANCARLO CHANCE MD [Primary Care Provider] - Follow up as needed I personally performed the services described in the documentation, reviewed and edited the documentation which was dictated to the scribe in my presence, and it accurately records my words and actions.
== END 2020-01-22 08:34 | disposition home or self-care (01) ==
LOC: ER 05:49
DX: F20.9 Schizophrenia, unspecified (principal); R06.02 Shortness of breath; H57.12 Ocular pain, left eye; H92.02 Otalgia, left ear; J45.909 Unspecified asthma, uncomplicated
CPT/HCPCS: 99284

== ENCOUNTER 2020-01-23 03:31 | Emergency (ER) | payer MEDICAID ==
[2020-01-23 03:45] VITALS: BP 126/100
--- NOTE | 2020-01-23 04:23 | ER Document Report ---
ED General - General Chief Complaint: Rectal Bleeding Stated Complaint: STOMACH ISSUES Primary Care Provider: GIANCARLO CHANCE MD [Primary Care Provider] - Follow up as needed TRAVEL OUTSIDE OF THE [place] IN LAST 30 DAYS: No - HPI Notes: 34-year-old male history of schizophrenia presents with concern that the 2 bowel movements he had today had a few specks of red blood in them. Endorses having had some constipation in the past but says today's stools were soft. Patient denies any other bleeding, anal pain, trauma, foreign bodies, bleeding diatheses, anticoagulation, abdominal pain, vomiting, melena, dizziness, syncope - Related Data Allergies/Adverse Reactions: No Known Allergies Allergy (Verified 01/23/20 03:40) Past Medical History - General Information source: Patient, [facility] Records - Social History Smoking Status: Former Smoker Frequency of alcohol use: None Drug Abuse: None Family History: Reviewed & Not Pertinent Patient has homicidal ideation: No Pulmonary Medical History: Reports: Hx Asthma, Hx Bronchitis GI Medical History: Reports: Hx Gastroesophageal Reflux Disease, Hx Irritable Bowel - Constipation Musculoskeletal Medical History: Reports Hx Arthritis, Reports Hx Musculoskeletal Trauma Psychiatric Medical History: Reports: Hx Anxiety, Hx Bipolar Disorder, Hx Depression, Hx Personality Disorder, Hx Schizoaffective Disorder, Hx Schizophrenia Traumatic Medical History: Reports: Hx Fractures - Finger fracture Past Surgical History: Reports: Hx Abdominal Surgery, Hx Appendectomy, Hx Cholecystectomy, Hx Orthopedic Surgery - Immunizations Immunizations up to date: Yes Hx Diphtheria, Pertussis, Tetanus Vaccination: Yes - 2012 Hx Pneumococcal Vaccination: 08/23/00 Review of Systems - Review of Systems Notes: REVIEW OF SYSTEMS: CONSTITUTIONAL : Denies fever, chills, or sweats. EENT: Denies recent cold/sinus symptoms, denies throat pain CARDIOVASCULAR: Denies chest pain, MAXIM RESPIRATORY: Denies cough, denies shortness of breath. GASTROINTESTINAL: Denies abdominal pain, nausea/vomiting. GENITOURINARY: Denies difficulty urinating, painful urination. MUSCULOSKELETAL: Denies neck pain, back pain. SKIN: Denies rash or skin lesions. HEMATOLOGIC : Denies easy bruising or bleeding. LYMPHATIC: Denies swollen, enlarged glands. NEUROLOGICAL: Denies headache, denies change in gait. PSYCHIATRIC: Denies anxiety or stress or depression. Physical Exam - Vital signs Vitals: Temp 97.6 F 01/23/20 03:40 - Notes Notes: PHYSICAL EXAMINATION: GENERAL: Young adult male sitting up in stretcher without any visible signs of discomfort HEAD: Atraumatic, normocephalic. EYES: Pupils equal round and appropriate constriction, sclera anicteric, conjunctiva are normal. ENT: nares patent, moist mucous membranes. NECK: Normal range of motion, supple without lymphadenopathy LUNGS: Normal respiratory rate and effort, speaking in full sentences HEART: Regular rate, no lower extremity edema ABDOMEN: Soft, nontender, no guarding, no masses, no CVAT. No anal tenderness no blood in rectal vault, normal rectal exam. EXTREMITIES: Normal range of motion, no pitting or edema. No cyanosis. NEUROLOGICAL: Awake, alert, conversing appropriately, moves all extremities spontaneously. PSYCH: Normal mood, normal affect. SKIN: Warm, Dry, normal turgor, no rashes or lesions noted. Course - Re-evaluation Re-evalutation: 01/23/20 04:25 Very low volume of blood reported and 2 episodes total in 24 hours without any other symptoms associated with them. No signs of significant blood loss and patient feels completely well. Normal exam, normal vitals. Had extensive discussion with patient regarding importance of following up on complaints like these with the primary doctor who can evaluate whether he needs to see a specialist such as a aircraft manager or edge beader. Educated patient on hemorrhoids as likely cause of bleeding and to increase the amount of fiber and water in his diet. Patient demonstrated understanding and denied having any other questions or concerns. Gave extensive instructions on when to return to ED such as if he has increased blood in stool or increased amounts of stool or any symptoms of anemia such as dizziness, syncope, chest pain, trouble breathing, weakness, and patient demonstrated understanding of these instructions. Patient ready for discharge. - Vital Signs Vital signs: Temp Pulse Resp BP Pulse Ox 97.6 F 56 L 16 126/100 H 100 01/23/20 03:45 01/23/20 03:45 01/23/20 03:45 01/23/20 03:45 01/23/20 03:45 Discharge - Discharge Clinical Impression: Blood in stool Condition: Good Disposition: HOME, SELF-CARE Additional Instructions: Hemorrhoids You have hemorrhoids. These are formed by enlargement of veins around the anus. The cause is increased pressure in the veins, from or straining at bowel movements. Hemorrhoids often cause itching and bleeding with bowel movements. When a hemorrhoid becomes clotted, severe pain and swelling result. Soothing creams and suppositories are often prescribed. Warm sitz-baths may also decrease pain, swelling, and itching. Eat a high-fiber diet. Stool softeners such as Metamucil will help. Keep the area very clean. Medicated cleansing pads (such as Tucks) are useful after bowel movements. A hose-mounted shower unit (like a shower massager at low water pressure) can be used to clean around tender hemorrhoid tags. You should call the doctor or return if you develop fever, increasing pain, or an enlarging mass around the anus, or if you simply fail to improve with treatment. If you are having bloody stools with large amount of blood or frequent stools with blood, dizziness, fainting, trouble breathing, chest pain, or any other worsening or alarming symptoms return to ED immediately. Follow-up with primary doctor within 1 week. Referrals: GIANCARLO CHANCE MD [Primary Care Provider] - Follow up as needed
== END 2020-01-23 04:15 | disposition home or self-care (01) ==
LOC: ER 03:31
DX: K92.1 Melena (principal)
CPT/HCPCS: 99282

== ENCOUNTER 2020-01-27 17:25 | Emergency (ER) | payer MEDICAID, OTHER ==
[2020-01-27 17:29] VITALS: BP 112/72
--- NOTE | 2020-01-27 17:45 | ER Document Report ---
HPI - HPI Time Seen by Provider: 01/27/20 17:42 Onset: Just prior to arrival Onset/Duration: Sudden Severity: Moderate Context: This is a 34-year-old male presented to to the emergency room today stating he had discomfort to his medial right wrist after scratching it. He has full range of motion no excessive warmth or tenderness to the affected area. Associated Symptoms: None Exacerbated by: Denies Relieved by: Denies - REPRODUCTIVE Reproductive: DENIES: : Past Medical History - General Information source: Patient - Social History Smoking Status: Never Smoker Cigarette use (# per day): No Chew tobacco use (# tins/day): No Smoking Education Provided: No Frequency of alcohol use: None Drug Abuse: None Family History: Reviewed & Not Pertinent Pulmonary Medical History: Reports: Hx Asthma, Hx Bronchitis GI Medical History: Reports: Hx Gastroesophageal Reflux Disease, Hx Irritable Bowel - Constipation Musculoskeletal Medical History: Reports Hx Arthritis, Reports Hx Musculoskeletal Trauma Psychiatric Medical History: Reports: Hx Anxiety, Hx Bipolar Disorder, Hx Depression, Hx Personality Disorder, Hx Schizoaffective Disorder, Hx Schizophrenia Traumatic Medical History: Reports: Hx Fractures - Finger fracture Past Surgical History: Reports: Hx Abdominal Surgery, Hx Appendectomy, Hx Cholecystectomy, Hx Orthopedic Surgery - Immunizations Immunizations up to date: Yes Hx Diphtheria, Pertussis, Tetanus Vaccination: Yes - 2012 Hx Pneumococcal Vaccination: 08/23/00 Vertical Provider Document - CONSTITUTIONAL Agree With Documented VS: Yes - INFECTION CONTROL TRAVEL OUTSIDE OF THE [place] IN LAST 30 DAYS: No - HEENT HEENT: Atraumatic, Conjuctival Injection, Normocephalic, PERRLA - NECK Neck: Normal Inspection - RESPIRATORY Respiratory: Breath Sounds Normal, No Respiratory Distress - CARDIOVASCULAR Cardiovascular: Regular Rate, Regular Rhythm - GI/ABDOMEN Gastrointestinal: Abdomen Soft, Abdomen Non-Tender - REPRODUCTIVE Male Genitalia: Normal Inspection - BACK Back: Normal Inspection - MUSCULOSKELETAL/EXTREMETIES Musculoskeletal/Extremeties: MAEW - NEURO Level of Consciousness: Awake, Alert Motor/Sensory: No Motor Deficit Course - Re-evaluation Re-evalutation: 01/27/20 17:44 No redness no tenderness no signs of infection full range of motion rapid capillary refill. - Vital Signs Vital signs: Temp Pulse Resp BP Pulse Ox 98.8 F 96 16 112/72 97 01/27/20 17:28 01/27/20 17:28 01/27/20 17:28 01/27/20 17:28 01/27/20 17:28 Discharge - Discharge Clinical Impression: Abrasion Condition: Good Disposition: HOME, SELF-CARE Instructions: Abrasions ([facility]) Additional Instructions: Warm compresses 4-5 times a day flexion exercises in warm water 4-5 times a day. Referrals: GIANCARLO CHANCE MD [Primary Care Provider] - Follow up as needed
== END 2020-01-27 17:46 | disposition home or self-care (01) ==
LOC: ER 17:25
DX: S60.811A Abrasion of right wrist, initial encounter (principal); M25.531 Pain in right wrist; X58.XXXA Exposure to other specified factors, initial encounter; J45.909 Unspecified asthma, uncomplicated
CPT/HCPCS: 99282

== ENCOUNTER 2020-01-28 11:10 | Emergency (ER) | payer MEDICAID ==
[2020-01-28 11:15] VITALS: BP 121/72
--- NOTE | 2020-01-28 11:27 | ER Document Report ---
ED Skin Rash/Insect Bite/Abscs - General Chief Complaint: Skin Problem Stated Complaint: SKIN ISSUE Time Seen by Provider: 01/28/20 11:23 Primary Care Provider: GIANCARLO CHANCE MD [Primary Care Provider] - Follow up as needed Mode of Arrival: Ambulatory Information source: Patient Notes: This 34-year-old male presents to the emergency room today stating that he was cleaning his apartment yesterday and feels though he may have gotten some dirt and some chemicals in his skin is scantly red. No fever no nausea no vomiting TRAVEL OUTSIDE OF THE [place] IN LAST 30 DAYS: No - HPI Patient complains to provider of: Skin rash/lesion Onset: Just prior to arrival Onset/Duration: Sudden Quality of pain: No pain Severity: Mild Skin Character: Abscess Skin Temperature: Warm - Related Data Allergies/Adverse Reactions: No Known Allergies Allergy (Verified 01/23/20 03:40) Past Medical History - General Information source: Patient - Social History Smoking Status: Never Smoker Cigarette use (# per day): No Chew tobacco use (# tins/day): No Smoking Education Provided: No Family History: Reviewed & Not Pertinent Pulmonary Medical History: Reports: Hx Asthma, Hx Bronchitis GI Medical History: Reports: Hx Gastroesophageal Reflux Disease, Hx Irritable Jj wel - Constipation Musculoskeletal Medical History: Reports Hx Arthritis, Reports Hx Musculoskeletal Trauma Psychiatric Medical History: Reports: Hx Anxiety, Hx Bipolar Disorder, Hx Depression, Hx Personality Disorder, Hx Schizoaffective Disorder, Hx Schizophrenia Traumatic Medical History: Reports: Hx Fractures - Finger fracture Past Surgical History: Reports: Hx Abdominal Surgery, Hx Appendectomy, Hx Cholecystectomy, Hx Orthopedic Surgery - Immunizations Immunizations up to date: Yes Hx Diphtheria, Pertussis, Tetanus Vaccination: Yes - 2012 Hx Pneumococcal Vaccination: 08/23/00 Review of Systems - Review of Systems Constitutional: No symptoms reported EENT: No symptoms reported Cardiovascular: No symptoms reported Respiratory: No symptoms reported Gastrointestinal: No symptoms reported Genitourinary: No symptoms reported Male Genitourinary: No symptoms reported Musculoskeletal: No symptoms reported Skin: No symptoms reported Hematologic/Lymphatic: No symptoms reported Neurological/Psychological: No symptoms reported Physical Exam - Vital signs Vitals: Temp Pulse Resp BP Pulse Ox 98.6 F 88 16 121/72 95 01/28/20 11:13 01/28/20 11:13 01/28/20 11:13 01/28/20 11:13 01/28/20 11:13 Interpretation: Normal - General General appearance: Appears well, Alert - HEENT Head: Normocephalic, Atraumatic Eyes: Normal Pupils: PERRL - Respiratory Respiratory status: No respiratory distress Chest status: Nontender Breath sounds: Normal Chest palpation: Normal - Cardiovascular Rhythm: Regular Heart sounds: Normal auscultation Murmur: No - Abdominal Inspection: Normal Distension: No distension Bowel sounds: Normal Tenderness: Nontender Organomegaly: No organomegaly - Back Back: Normal, Nontender - Extremities General upper extremity: Normal inspection, Nontender, Normal color, Normal ROM, Normal temperature General lower extremity: Normal inspection, Nontender, Normal color, Normal ROM, Normal temperature, Normal weight bearing. No: Esdras's sign - Neurological Neuro grossly intact: Yes Cognition: Normal Orientation: AAOx4 [place] Coma Scale Eye Opening: Spontaneous Jasmin Coma Scale Verbal: Oriented Jasmin Coma Scale Motor: Obeys Commands Jasmin Coma Scale Total: 15 Speech: Normal Motor strength normal: LUE, RUE, LLE, RLE Sensory: Normal - Psychological Associated symptoms: Normal affect, Normal mood - Skin Skin Temperature: Warm Skin Moisture: Dry Skin Color: Normal Course - Vital Signs Vital signs: Temp Pulse Resp BP Pulse Ox 98.6 F 88 16 121/72 95 01/28/20 11:13 01/28/20 11:13 01/28/20 11:13 01/28/20 11:13 01/28/20 11:13 Discharge - Discharge Clinical Impression: Dermatitis Condition: Good Disposition: HOME, SELF-CARE Instructions: Contact Dermatitis ([facility]) Additional Instructions: [facility] [address] Ovi G[address] [place], [place] Prescriptions: Diphenhydramine HCl [Benadryl 25 mg Capsule] 25 mg PO Q6 PRN #12 capsule PRN Reason: Referrals: GIANCARLO CHANCE MD [Primary Care Provider] - Follow up as needed
== END 2020-01-28 11:28 | disposition home or self-care (01) ==
LOC: ER 11:10
DX: L30.9 Dermatitis, unspecified (principal); Z90.49 Acquired absence of other specified parts of digestive tract
CPT/HCPCS: 99283

== ENCOUNTER 2020-01-28 16:22 | Emergency (ER) | payer MEDICAID ==
[2020-01-28 16:29] VITALS: BP 135/71
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
== END 2020-01-28 16:57 | disposition home or self-care (01) ==
LOC: ER 16:22
DX: F45.9 Somatoform disorder, unspecified (principal); Z90.49 Acquired absence of other specified parts of digestive tract
CPT/HCPCS: 99283

== ENCOUNTER 2020-01-28 21:30 | Emergency (ER) | payer MEDICAID ==
[2020-01-28 21:36] VITALS: BP 129/89
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
== END 2020-01-28 22:36 | disposition home or self-care (01) ==
LOC: ER 21:30
DX: S90.512A Abrasion, left ankle, initial encounter (principal); S80.212A Abrasion, left knee, initial encounter; M54.5 Low back pain; V17.0XXA Pedal cycle driver injured in collision with fixed or stationary object in nontraffic accident, initial encounter; Y93.55 Activity, bike riding; Y92.488 Other paved roadways as the place of occurrence of the external cause
CPT/HCPCS: 99282

== ENCOUNTER 2020-01-29 06:09 | Emergency (ER) | payer MEDICAID ==
[2020-01-29 06:19] VITALS: BP 130/65
--- NOTE | 2020-01-29 07:29 | ER Document Report ---
Entered by TAVO DALLAS SCRIBE 01/29/20 0713 Acting as scribe for:SARA CHRISTIANSEN MD ED General - General Chief Complaint: Ankle Injury Stated Complaint: LEFT ANKLE ISSUES Time Seen by Provider: 01/29/20 06:47 Primary Care Provider: GIANCARLO CHANCE MD [Primary Care Provider] - Follow up as needed Information source: Patient Notes: This 34 year old male patient presents to the emergency department today with complaints of a cut on his left ankle. Patient states he hit his left ankle on something and wanted it checked for infection. Patient states he also believes there might be something in his left eye and has flushed it at home yesterday with water. Patient denies any pain opening or closing both eyes. TRAVEL OUTSIDE OF THE [place] IN LAST 30 DAYS: No - Related Data Allergies/Adverse Reactions: No Known Allergies Allergy (Verified 01/23/20 03:40) Past Medical History - General Information source: Patient - Social History Smoking Status: Never Smoker Cigarette use (# per day): No Family History: Reviewed & Not Pertinent Patient has homicidal ideation: No Pulmonary Medical History: Reports: Hx Asthma, Hx Bronchitis GI Medical History: Reports: Hx Gastroesophageal Reflux Disease, Hx Irritable Bowel - Constipation Musculoskeletal Medical History: Reports Hx Arthritis, Reports Hx Musculoskeletal Trauma Psychiatric Medical History: Reports: Hx Anxiety, Hx Bipolar Disorder, Hx Depression, Hx Personality Disorder, Hx Schizoaffective Disorder, Hx Schizophrenia Traumatic Medical History: Reports: Hx Fractures - Finger fracture Past Surgical History: Reports: Hx Abdominal Surgery, Hx Appendectomy, Hx Cholecystectomy, Hx Orthopedic Surgery - Immunizations Immunizations up to date: Yes Hx Diphtheria, Pertussis, Tetanus Vaccination: Yes - 2012 Hx Pneumococcal Vaccination: 08/23/00 Review of Systems - Review of Systems Constitutional: No symptoms reported EENT: See HPI. denies: Eye pain Cardiovascular: No symptoms reported Respiratory: No symptoms reported Gastrointestinal: No symptoms reported Genitourinary: No symptoms reported Male Genitourinary: No symptoms reported Musculoskeletal: See HPI, Other - Cut on ankle Skin: No symptoms reported Hematologic/Lymphatic: No symptoms reported Neurological/Psychological: No symptoms reported -: Yes All other systems reviewed and negative Physical Exam - Vital signs Vitals: Temp Pulse Resp BP Pulse Ox 99.0 F 67 18 130/65 H 95 01/29/20 06:17 01/29/20 06:17 01/29/20 06:17 01/29/20 06:17 01/29/20 06:17 - General General appearance: Appears well, Alert - HEENT Head: Normocephalic, Atraumatic Eyes: Normal Conjunctiva: Other - Mild erythema Cornea: Normal Extraocular movements intact: Yes Eyelashes: Normal Pupils: PERRL Anterior chamber: Normal Visual garcia normal: Yes Notes: Erythema of the lower lid of the left eye. - Respiratory Respiratory status: No respiratory distress Chest status: Nontender Breath sounds: Normal Chest palpation: Normal - Cardiovascular Rhythm: Regular Heart sounds: Normal auscultation, S1 appreciated, S2 appreciated Murmur: No - Abdominal Inspection: Normal Distension: No distension Bowel sounds: Normal Tenderness: Nontender - Extremities General upper extremity: Normal inspection. No: Edema General lower extremity: Normal inspection. No: Edema Notes: Minor abrasion on the left medial ankle. No edema or pus drainage. - Neurological Neuro grossly intact: Yes Cognition: Normal Orientation: AAOx4 Speech: Normal - Psychological Associated symptoms: Normal affect, Normal mood - Skin Skin Temperature: Warm Skin Moisture: Dry Skin Color: Normal Course - Re-evaluation Re-evalutation: 01/29/20 07:18 Patient resting comfortably in exam room no signs of distress. - Vital Signs Vital signs: Temp Pulse Resp BP Pulse Ox 99 F 67 18 130/65 H 95 01/29/20 06:20 01/29/20 06:17 01/29/20 06:17 01/29/20 06:17 01/29/20 06:17 01/29/20 07:17 Vital signs stable no acute process Discharge - Discharge Clinical Impression: Skin tear of left lower leg without complication, Viral conjunctivitis of left eye Condition: Stable Disposition: HOME, SELF-CARE Additional Instructions: Conjunctivitis You have an infection in your eye, commonly known as "pink eye." Conjunctivitis causes redness, mild discomfort, itching, and mattering on the eyelids. It is very contagious, so you must be careful to wash your hands after touching your face so you don't pass the infection on to others. Conjunctivitis is caused by both viruses and bacteria. It usually responds quickly to treatment with antibiotic drops. These should be placed in the eye as prescribed (usually every three to four hours while you're awake). If you wear contact lenses, don't put them in your eyes until the infection is cleared and you are no longer using the drops (unless your doctor advises you otherwise). Should you develop increasing eye pain, severe swelling, decreased vision, or fail to improve as expected, please return for re-examination.Skin Tear Your wound is a skin tear. These wounds are difficult and sometimes impossible to suture because the skin is so fragile that it may not hold the sutures. The skin condition can be due to aging and sometimes medications. The best care for such skin tears is sometimes to not try to suture them. Rather, it is best to position the skin as closely as possible to its original location and apply a bandage that can remain in place for several days at a time and sometimes these bandages are left in place until the wound has healed. Most skin tears will heal in about two weeks. Because they are so difficult to care for, skin tears should be expected to leave some scarring. Prescriptions: Bacitracin Zinc [Bacitracin Oint 15 gm] 1 applic TP DAILY #1 tube Erythromycin Base [Erythromycin Oph 1 Gm Oint Ud] 1 applic LFT_EYE TID 7 Days #1 tube Referrals: GIANCARLO CHANCE MD [Primary Care Provider] - Follow up as needed I personally performed the services described in the documentation, reviewed and edited the documentation which was dictated to the scribe in my presence, and it accurately records my words and actions.
== END 2020-01-29 07:36 | disposition home or self-care (01) ==
LOC: ER 06:09
DX: S91.012A Laceration without foreign body, left ankle, initial encounter (principal); B30.9 Viral conjunctivitis, unspecified; W22.8XXA Striking against or struck by other objects, initial encounter; Z90.49 Acquired absence of other specified parts of digestive tract
CPT/HCPCS: 99282

== ENCOUNTER 2020-01-30 21:53 | Emergency (ER) | payer MEDICAID ==
--- NOTE | 2020-01-30 23:01 | ER Document Report ---
ED Medical Screen (RME) - General Chief Complaint: General Weakness Stated Complaint: CAME TO CHECK BLOOD CELLS Time Seen by Provider: 01/30/20 23:00 Primary Care Provider: GIANCARLO CHANCE MD [Primary Care Provider] - Follow up as needed Information source: Patient Notes: Patient presents complaining of dizziness that started today. Patient reports feeling fuzzy in his eyes. Patient denies any chest pain shortness of breath nausea or vomiting. Patient denies any rotational movement to his dizzy complaints. Patient denies any recent medication changes. Patient does report having an outpatient chest x-ray today. I have greeted and performed a rapid initial assessment of this patient. A comprehensive ED assessment and evaluation of the patient, analysis of test results and completion of the medical decision making process will be conducted by additional ED providers. TRAVEL OUTSIDE OF THE [place] IN LAST 30 DAYS: No - Related Data Allergies/Adverse Reactions: No Known Allergies Allergy (Verified 01/30/20 22:56) Past Medical History - Social History Frequency of alcohol use: None Drug Abuse: None Family history: Reviewed & Not Pertinent Pulmonary Medical History: Reports: Hx Asthma, Hx Bronchitis GI Medical History: Reports: Hx Gastroesophageal Reflux Disease, Hx Irritable Bowel - Constipation Musculoskeltal Medical History: Reports Hx Arthritis, Reports Hx Musculoskeletal Trauma Psychiatric Medical History: Reports: Hx Anxiety, Hx Bipolar Disorder, Hx Depression, Hx Personality Disorder, Hx Schizoaffective Disorder, Hx Schizophrenia Traumatic Medical History: Reports: Hx Fractures - Finger fracture Past Surgical History: Reports: Hx Abdominal Surgery, Hx Appendectomy, Hx Cholecystectomy, Hx Orthopedic Surgery - Immunizations Immunizations up to date: Yes Hx Diphtheria, Pertussis, Tetanus Vaccination: Yes - 2012 Physical Exam - Vital signs Vitals: Temp Pulse Resp BP Pulse Ox 99.5 F 86 18 106/63 97 01/30/20 21:54 01/30/20 21:54 01/30/20 21:54 01/30/20 21:54 01/30/20 21:54 - Respiratory Respiratory status: No respiratory distress Breath sounds: Normal - Cardiovascular Rhythm: Regular Heart sounds: S1 appreciated, S2 appreciated Course - Vital Signs Vital signs: Temp Pulse Resp BP Pulse Ox 99.5 F 86 18 106/63 97 01/30/20 22:56 01/30/20 21:54 01/30/20 21:54 01/30/20 21:54 01/30/20 21:54 Doctor's Discharge - Discharge Referrals: GIANCARLO CHANCE MD [Primary Care Provider] - Follow up as needed
[2020-01-31 00:37] LABS: APPEARANCE,URINE CLEAR; BILIRUBIN,URINE NEGATIVE (NEGATIVE); COLOR,URINE YELLOW; GLUCOSE, URINE NEGATIVE (NEGATIVE); KETONES,URINE NEGATIVE (NEGATIVE); LEUKOCYTE ESTERASE,URINE NEGATIVE (NEGATIVE); NITRITE,URINE NEGATIVE (NEGATIVE); PROTEIN,URINE NEGATIVE (NEGATIVE); URINE SPECIFIC GRAVITY 1.026
[2020-01-31 00:46] LABS: ALBUMIN 4.8 g/dL (3.5-5.0); ALKALINE PHOSPHATASE 77 U/L (38-126); ANION GAP 7 (5-19); ASPARTATE AMINO TRANSFERASE 26 U/L (17-59); BLOOD UREA NITROGEN 18 mg/dL (7-20); CALCIUM 9.7 mg/dL (8.4-10.2); CARBON DIOXIDE 29 mmol/L (22-30); CHLORIDE 105 mmol/L (98-107); GLUCOSE 97 mg/dL (75-110); POTASSIUM 4.5 mmol/L (3.6-5.0); TOTAL PROTEIN 7.7 g/dL (6.3-8.2)
[2020-01-31 00:48] LABS: ABSOLUTE BASOPHILS # (AUTO) 0.1 10^3/uL (0.0-0.2); ABSOLUTE EOSINOPHILS # (AUTO) 0.2 10^3/uL (0.0-0.6); ABSOLUTE LYMPHOCYTES (AUTO) 1.2 10^3/uL (0.5-4.7); ABSOLUTE MONOCYTES (AUTO) 0.3 10^3/uL (0.1-1.4); ABSOLUTE NEUT (AUTO) 1.7 10^3/uL (1.7-8.2); EOSINOPHILS % (AUTO) 5.5 % (0-6); HEMATOCRIT 41.6 % (37.9-51.0); HEMOGLOBIN 13.8 g/dL (13.5-17.0); LYMPHOCYTES % (AUTO) 33.6 % (13-45); MEAN CORPUSCULAR HEMOGLOBIN 27.2 pg (27.0-33.4); MEAN CORPUSCULAR HGB CONC 33.3 g/dL (32.0-36.0); MEAN CORPUSCULAR VOLUME 82 fl (80-97); MONOCYTES % (AUTO) 9.5 % (3-13); PLATELET COUNT 257 10^3/uL (150-450); RED BLOOD COUNT 5.09 10^6/uL (4.35-5.55); RED CELL DISTRIBUTION WIDTH 14.4 % (11.5-14.0); SEGMENTED NEUTROPHILS % (AUTO) 49.4 % (42-78); TOTAL CELLS COUNTED % (AUTO) 100 %; WHITE BLOOD COUNT 3.5 10^3/uL (4.0-10.5)
[2020-01-31 01:08] LABS: ADD MANUAL MICROSCOPIC YES; URINE AMPHETAMINES SCREEN NEGATIVE; URINE BARBITURATES SCREEN NEGATIVE; URINE BENZODIAZEPINES SCREEN NEGATIVE; URINE COCAINE SCREEN NEGATIVE; URINE MARIJUANA (THC) SCREEN NEGATIVE; URINE METHADONE SCREEN NEGATIVE; URINE PHENCYCLIDINE SCREEN NEGATIVE; WBC,URINE 0-1 /HPF
[2020-01-31 04:28] VITALS: BP 123/74
--- NOTE | 2020-01-31 05:03 | ER Document Report ---
ED General - General Chief Complaint: General Weakness Stated Complaint: CAME TO CHECK BLOOD CELLS Time Seen by Provider: 01/30/20 23:00 Primary Care Provider: GIANCARLO CHANCE MD [Primary Care Provider] - Follow up as needed TRAVEL OUTSIDE OF THE [place] IN LAST 30 DAYS: No - HPI Notes: 34-year-old male history of schizophrenia, homelessness presents with desire to get his blood cells checked. Patient says that he needed to get checked to make sure they were okay. He says that he feels well although sometimes he feels weak, but he does not feel weak now. Patient denies having any symptoms currently or recently. Patient not having any pain, abdominal pain, vomiting, d iarrhea, bloody stool, chest pain, shortness of breath, or fever - Related Data Allergies/Adverse Reactions: No Known Allergies Allergy (Verified 01/30/20 22:56) Past Medical History - General Information source: Patient, [facility] Records - Social History Smoking Status: Former Smoker Frequency of alcohol use: None Drug Abuse: None Family History: Reviewed & Not Pertinent Patient has homicidal ideation: No Pulmonary Medical History: Reports: Hx Asthma, Hx Bronchitis GI Medical History: Reports: Hx Gastroesophageal Reflux Disease, Hx Irritable Bowel - Constipation Musculoskeletal Medical History: Reports Hx Arthritis, Reports Hx Musculoskeletal Trauma Psychiatric Medical History: Reports: Hx Anxiety, Hx Bipolar Disorder, Hx Depression, Hx Personality Disorder, Hx Schizoaffective Disorder, Hx Schizophrenia Traumatic Medical History: Reports: Hx Fractures - Finger fracture Past Surgical History: Reports: Hx Abdominal Surgery, Hx Appendectomy, Hx Cholecystectomy, Hx Orthopedic Surgery - Immunizations Immunizations up to date: Yes Hx Diphtheria, Pertussis, Tetanus Vaccination: Yes - 2012 Hx Pneumococcal Vaccination: 08/23/00 Review of Systems - Review of Systems Notes: REVIEW OF SYSTEMS: CONSTITUTIONAL : Denies fever, chills, or sweats. EENT: Denies recent cold/sinus symptoms, denies throat pain CARDIOVASCULAR: Denies chest pain, MAXIM RESPIRATORY: Denies cough, denies shortness of breath. GASTROINTESTINAL: Denies abdominal pain, nausea/vomiting. GENITOURINARY: Denies difficulty urinating, painful urination. MUSCULOSKELETAL: Denies neck pain, back pain. SKIN: Denies rash or skin lesions. HEMATOLOGIC : Denies easy bruising or bleeding. LYMPHATIC: Denies swollen, enlarged glands. NEUROLOGICAL: Denies headache, denies change in gait. PSYCHIATRIC: Denies anxiety or stress or depression. Physical Exam - Vital signs Vitals: Temp Pulse Resp BP Pulse Ox 99.5 F 86 18 106/63 97 01/30/20 21:54 01/30/20 21:54 01/30/20 21:54 01/30/20 21:54 01/30/20 21:54 - Notes Notes: PHYSICAL EXAMINATION: GENERAL: Well-appearing, well-nourished and in no acute distress. HEAD: Atraumatic, normocephalic. EYES: Pupils equal round and appropriate constriction, sclera anicteric, conjunctiva are normal. ENT: nares patent, moist mucous membranes. NECK: Normal range of motion, supple without lymphadenopathy LUNGS: Normal respiratory rate and effort, speaking in full sentences HEART: Regular rate, no JVD ABDOMEN: Soft, nontender EXTREMITIES: Normal range of motion, no pitting or edema. No cyanosis. NEUROLOGICAL: Awake, alert, conversing appropriately, moves all extremities spontaneously. PSYCH: Normal mood, normal affect. SKIN: Warm, Dry, normal turgor, no rashes or lesions noted. Course - Re-evaluation Re-evalutation: 01/31/20 04:59 Patient without any actual symptoms requesting to have his blood cells checked. Labs were performed in triage along with EKG with no acute findings. Given that patient without any symptoms and screening labs were without emergent findings, patient is appropriate for continued follow-up with outpatient primary care doctor. Will give patient copy of all results. Gave patient extensive return to ED precautions which she demonstrated understanding of. - Vital Signs Vital signs: Temp Pulse Resp BP Pulse Ox 97.8 F 64 14 123/74 100 01/31/20 04:26 01/31/20 04:26 01/31/20 04:26 01/31/20 04:26 01/31/20 04:26 - Laboratory Result Diagrams: 01/31/20 00:02 01/31/20 00:02 Laboratory results interpreted by me: 01/31/20 01/31/20 01/31/20 00:02 00:02 00:02 WBC 3.5 L RDW 14.4 H Total Bilirubin 2.0 H Urine Urobilinogen 2.0 H - EKG Interpretation by Me Additional EKG results interpreted by me: 01/31/20 05:00 Heart rate 67, normal early re-pole pattern diffusely without any signs of ischemia, borderline for LVH, normal intervals Discharge - Discharge Clinical Impression: Physically well but worried Condition: Stable Disposition: HOME, SELF-CARE Additional Instructions: He should see a primary care doctor within 1 week. If he should develop any symptoms such as dizziness, fainting, belly pain, vomiting, bloody stool, or any other symptoms return to the ED immediately. Referrals: GIANCARLO CHANCE MD [Primary Care Provider] - Follow up as needed
--- NOTE | 2020-01-31 11:11 | EKG REPORT ---
SEVERITY:- ABNORMAL ECG - SINUS RHYTHM CONSIDER LEFT VENTRICULAR HYPERTROPHY ST ELEV, PROBABLE NORMAL EARLY REPOL PATTERN : Confirmed by: Ann Brewer MD 31-Jan-2020 11:10:37
== END 2020-01-31 06:13 | disposition home or self-care (01) ==
LOC: ER 21:53
DX: Z71.1 Person with feared health complaint in whom no diagnosis is made (principal); Z90.49 Acquired absence of other specified parts of digestive tract
CPT/HCPCS: 36415; 80053; 80307; 81001; 85025; 93005; 93010; 99283

== ENCOUNTER → 2020-01-30 | Outpatient (CLI) | payer MEDICAID ==
--- NOTE | 2020-01-30 15:24 | RADIOLOGY REPORT (SQ) ---
EXAM DESCRIPTION: ABDOMEN 2 VIEWS IMAGES COMPLETED DATE/TIME: 01/30/2020 2:36 pm REASON FOR STUDY: R10.84 GENERALIZED ABDOMINAL PAIN R10.84 GENERALIZED ABDOMINAL PAIN COMPARISON: 01/17/2020 NUMBER OF VIEWS: Two views. TECHNIQUE: Supine and erect/decubitus radiographic images of the abdomen acquired. LIMITATIONS: None. FINDINGS: FREE AIR: None. No abnormal gas collections. LUNG BASES: Clear. BOWEL GAS PATTERN: Nonobstructive pattern. No dilated loops or air fluid levels. CALCIFICATIONS: No suspicious calcifications. SOFT TISSUES: No gross mass or suggestion of organomegaly. HARDWARE: None in the abdomen. BONES: No acute fracture. No worrisome bone lesions. OTHER: No other significant finding. IMPRESSION: NO RADIOGRAPHIC EVIDENCE FOR ACUTE ABDOMINAL DISEASE. TECHNICAL DOCUMENTATION: JOB ID: [id number] 2010 [employer]- All Rights Reserved Reading location - IP/workstation name: [email or web address]
== END ==
LOC: RAD 14:10
PROVIDERS: ATTEND Internal Medicine
DX: R10.84 Generalized abdominal pain (principal)
CPT/HCPCS: 74019

== ENCOUNTER 2020-01-31 20:30 | Emergency (ER) | payer MEDICAID ==
[2020-01-31 20:43] VITALS: BP 126/78
[2020-01-31] MEDS ORDERED: MAG HYDROX/AL HYDROX/SIMETH SUSP 30 ML UDCUP PO ONE (21:01)
--- NOTE | 2020-01-31 21:04 | ER Document Report ---
ED GI/ - General Chief Complaint: Abdominal Pain Stated Complaint: STOMACH SPASMS Time Seen by Provider: 01/31/20 21:01 Primary Care Provider: GIANCARLO CHANCE MD [Primary Care Provider] - Follow up as needed Mode of Arrival: Ambulatory Information source: Patient Notes: 34-year-old male presented to ED for complaint of indigestion. He states he had some spicy food for first and then for lunch. He states he then brushed his teeth and he thought maybe the toothpaste made all the bubbles in his stomach. He states he did not realize that he can spicy food 2 times in 1 day could give him such indigestion. He states he is actually feeling better but still has a little bit of the indigestion. He is alert oriented respirations regular nonlabored speaking in full sentences walks with even steady gait. His bowel sounds are active. He is in no acute distress at this time. He states he would just like something to help with the discomfort and he will go home. He was treated with some Maalox and instructed please if he is going to eat spicy foods several times in 1 day to please use some antiacid such as Tums or Maalox. Patient verbalized understanding with this treatment plan. TRAVEL OUTSIDE OF THE [place] IN LAST 30 DAYS: No - HPI Patient complains to provider of: Abdominal pain Onset: This afternoon Timing/Duration: Intermittent Quality of pain: Burning Severity at maximum: Moderate Severity in ED: Almost gone Pain Level: 1 Location: Epigastric Associated symptoms: None Exacerbated by: Denies Relieved by: Denies Similar symptoms previously: Yes Recently seen / treated by doctor: Yes - Related Data Allergies/Adverse Reactions: No Known Allergies Allergy (Verified 01/30/20 22:56) Home Medications: albuterol inh Past Medical History - General Information source: Patient - Social History Smoking Status: Never Smoker Family History: Reviewed & Not Pertinent Patient has homicidal ideation: No - Past Medical History Cardiac Medical History: Reports: None Pulmonary Medical History: Reports: Hx Asthma, Hx Bronchitis EENT Medical History: Reports: None Neurological Medical History: Reports: None Endocrine Medical History: Reports: None Renal/ Medical History: Reports: None Malignancy Medical History: Reports None GI Medical History: Reports: Hx Gastroesophageal Reflux Disease, Hx Irritable Bowel - Constipation Musculoskeletal Medical History: Reports Hx Arthritis, Reports Hx Musculoskeletal Trauma Skin Medical History: Reports None Psychiatric Medical History: Reports: Hx Anxiety, Hx Bipolar Disorder, Hx Depression, Hx Personality Disorder, Hx Schizoaffective Disorder, Hx Schizophrenia Traumatic Medical History: Reports: Hx Fractures - Finger fracture Infectious Medical History: Reports: None Past Surgical History: Reports: Hx Abdominal Surgery, Hx Appendectomy, Hx Ch olecystectomy, Hx Orthopedic Surgery - Immunizations Immunizations up to date: Yes Hx Diphtheria, Pertussis, Tetanus Vaccination: Yes - 2012 Hx Pneumococcal Vaccination: 08/23/00 Review of Systems - Review of Systems Constitutional: No symptoms reported EENT: No symptoms reported Cardiovascular: No symptoms reported Respiratory: No symptoms reported Gastrointestinal: Abdominal pain. denies: Vomiting Genitourinary: No symptoms reported Male Genitourinary: No symptoms reported Musculoskeletal: No symptoms reported Skin: No symptoms reported Hematologic/Lymphatic: No symptoms reported Neurological/Psychological: No symptoms reported -: Yes All other systems reviewed and negative Physical Exam - Vital signs Vitals: Temp Pulse Resp BP Pulse Ox 99.6 F 95 16 126/78 H 98 01/31/20 20:41 01/31/20 20:41 01/31/20 20:41 01/31/20 20:41 01/31/20 20:41 Interpretation: Normal - General General appearance: Appears well, Alert - HEENT Head: Normocephalic, Atraumatic Eyes: Normal Pupils: PERRL - Respiratory Respiratory status: No respiratory distress Chest status: Nontender Breath sounds: Normal Chest palpation: Normal - Cardiovascular Rhythm: Regular Heart sounds: Normal auscultation Murmur: No - Abdominal Inspection: Normal Distension: No distension Bowel sounds: Hyperactive Tenderness: Nontender Organomegaly: No organomegaly Notes: Patient states he just has some mild indigestion now. He did realize that eating spicy food twice a day give you indigestion. He does have a history of reflux. He was treated with Maalox in the emergency room and then instructed to please use Maalox or Tums if he is going to eat a lot of spicy food. Patient verbalized understanding and agreement with treatment plan and patient was discharged home. - Back Back: Normal, Nontender - Extremities General upper extremity: Normal inspection, Nontender, Normal color, Normal ROM, Normal temperature General lower extremity: Normal inspection, Nontender, Normal color, Normal ROM, Normal temperature, Normal weight bearing. No: Esdras's sign - Neurological Neuro grossly intact: Yes Cognition: Normal Orientation: AAOx4 Jasmin Coma Scale Eye Opening: Spontaneous [place] Coma Scale Verbal: Oriented [place] Coma Scale Motor: Obeys Commands [place] Coma Scale Total: 15 Speech: Normal Motor strength normal: LUE, RUE, LLE, RLE Sensory: Normal - Psychological Associated symptoms: Normal affect, Normal mood - Skin Skin Temperature: Warm Skin Moisture: Dry Skin Color: Normal Course - Vital Signs Vital signs: Temp Pulse Resp BP Pulse Ox 99.6 F 95 16 126/78 H 98 01/31/20 20:55 01/31/20 20:41 01/31/20 20:41 01/31/20 20:41 01/31/20 20:41 Discharge - Discharge Clinical Impression: Indigestion after eating spicy foods Condition: Stable Disposition: HOME, SELF-CARE Additional Instructions: You were seen today for a having an upset stomach after you ate spicy foods for breakfast and for lunch. You were also concerned that you are to space it given you an upset stomach. Future if you eat spicy foods please have some Tums on hand so you can take some Tums instead of coming to the emergency room. Antacid Therapy You have been instructed to start antacid therapy. Antacids directly neutralize stomach acid. This is useful for acid irritation of the esophagus, gastritis, and ulcers. You should take two tablespoons of antacid one hour after each meal and three hours after each meal. If you are not eating, take the antacid every two hours. If you are using a concentrate (such as Maalox TC), use only one tablespoon. Many antacids affect the bowels. The most common problem is diarrhea. In this case, a pure aluminum hydroxide antacid (such as AlternaGel) can be substituted for some or all doses. If the problem is constipation, add a teaspoon of Milk of Magnesia to each dose. Call the doctor if you experience continued diarrhea or constipation, or if you develop lightheadedness, bloody stool or vomitus, severe abdominal pain, or black stool. FOLLOW-UP CARE: If you have been referred to a physician for follow-up care, call the physicians office for an appointment as you were instructed or within the next two days. If you experience worsening or a significant change in your symptoms, notify the physician immediately or return to the Emergency Department at any time for re-evaluation. Forms: Elevated Blood Pressure Referrals: GIANCARLO CHANCE MD [Primary Care Provider] - Follow up as needed
== END 2020-01-31 21:10 | disposition home or self-care (01) ==
LOC: ER 20:30
DX: K30 Functional dyspepsia (principal); R10.9 Unspecified abdominal pain; Z79.51 Long term (current) use of inhaled steroids; J45.909 Unspecified asthma, uncomplicated
CPT/HCPCS: 99283; J3490

== ENCOUNTER 2020-02-03 17:08 | Emergency (ER) | payer MEDICAID, OTHER ==
--- NOTE | 2020-02-03 17:47 | ER Document Report ---
HPI - HPI Patient complains to provider of: Concerned about mole on right upper arm Time Seen by Provider: 02/03/20 17:38 Onset: Just prior to arrival Onset/Duration: Sudden Pain Level: Denies Context: 34-year-old male presented to ED for complaint of a mole on his right arm. He states it has been there for a while. He states it is not changed in any way he was just concerned about it. He states he did look it up on the Internet and he stated it was not swollen red or any other things at this stated were concerning. He states he just wanted somebody to look at the mole. Has been instructed to please follow-up with dermatology. To follow-up with his primary care doctor and get a referral to dermatology if required. Associated Symptoms: None Exacerbated by: Denies Relieved by: Denies Similar symptoms previously: Yes Recently seen / treated by doctor: Yes - ROS ROS below otherwise negative: Yes - CONSTITUTIONAL Constitutional: DENIES: Fever, Chills - EENT EENT: DENIES: Sore Throat, Ear Pain, Nasal Drainage-Clear, Nasal Drainage- Purulent, Congestion, Eye problems - NEURO Neurology: DENIES: Headache, Weakness, Vision blurred, Dizzinesss / Vertigo - CARDIOVASCULAR Cardiovascular: DENIES: Chest pain - RESPIRATORY Respiratory: DENIES: Trouble Breathing, Coughing - GASTROINTESTINAL Gastrointestinal: DENIES: Abdominal Pain, Nausea, Patient vomiting, Diarrhea, Constipation, Black / Bloody Stools - URINARY Urinary: DENIES: Dysuria, Urgency, Frequency - REPRODUCTIVE Reproductive: DENIES: :, Postmenopausal, Abnormal bleeding / discharge - DERM Skin Color: Normal, Other - Small black mole on the right upper arm that he states is not changed Past Medical History - General Information source: Patient - Social History Smoking Status: Never Smoker Family History: Reviewed & Not Pertinent Patient has homicidal ideation: No - Past Medical History Cardiac Medical History: Reports: None Pulmonary Medical History: Reports: Hx Asthma, Hx Bronchitis EENT Medical History: Reports: None Neurological Medical History: Reports: None Endocrine Medical History: Reports: None Renal/ Medical History: Reports: None Malignancy Medical History: Reports None GI Medical History: Reports: Hx Gastroesophageal Reflux Disease, Hx Irritable Bowel - Constipation Musculoskeletal Medical History: Reports Hx Arthritis, Reports Hx Musculoskeletal Trauma Psychiatric Medical History: Reports: Hx Anxiety, Hx Bipolar Disorder, Hx Depression, Hx Personality Disorder, Hx Schizoaffective Disorder, Hx Schizophrenia Traumatic Medical History: Reports: Hx Fractures - Finger fracture Past Surgical History: Reports: Hx Abdominal Surgery, Hx Appendectomy, Hx Cholecystectomy, Hx Orthopedic Surgery - Immunizations Immunizations up to date: Yes Hx Diphtheria, Pertussis, Tetanus Vaccination: Yes - 2012 Hx Pneumococcal Vaccination: 08/23/00 Vertical Provider Document - CONSTITUTIONAL Agree With Documented VS: Yes Exam Limitations: No Limitations General Appearance: WD/WN, No Apparent Distress - INFECTION CONTROL TRAVEL OUTSIDE OF THE [place] IN LAST 30 DAYS: No - HEENT HEENT: Atraumatic, Normal ENT Exam, Normocephalic, PERRLA - NECK Neck: Normal Inspection, Supple - RESPIRATORY Respiratory: Breath Sounds Normal, No Respiratory Distress - CARDIOVASCULAR Cardiovascular: Regular Rate, Regular Rhythm - GI/ABDOMEN Gastrointestinal: Abdomen Soft, Abdomen Non-Tender, No Organomegaly, Normal Bowel Sounds - BACK Back: Normal Inspection - MUSCULOSKELETAL/EXTREMETIES Musculoskeletal/Extremeties: MAEW, FROM, Non-Tender - NEURO Level of Consciousness: Awake, Alert, Appropriate Motor/Sensory: No Motor Deficit, No Sensory Deficit Deep Tendon Reflexes: 3+ - DERM Notes: Small dark mole to the right upper arm no changes. Patient states is been that way for a while he was just concerned and want somebody to look at it Course - Vital Signs Vital signs: Temp Pulse Resp BP Pulse Ox 98.6 F 79 18 128/85 H 98 02/03/20 17:42 02/03/20 17:42 02/03/20 17:42 02/03/20 17:42 02/03/20 17:42 Discharge - Discharge Clinical Impression: Concerned about mole on right arm Condition: Stable Disposition: HOME, SELF-CARE Additional Instructions: Patient states he was concerned about a mole on his right upper arm. He states it has not changed at all. He states it is been there for a long time. He states he just wanted somebody to look at it. I explained to him that we do not diagnose moles. He does need to go to a telemetry nurse and determine whether or not this needs biopsied or if there is just a neuro normal common mole. Lungs clear to auscultation vital signs stable patient will be discharged home with instructions to follow-up with his primary care doctor to get a referral to dermatology FOLLOW-UP CARE: If you have been referred to a physician for follow-up care, call the physicians office for an appointment as you were instructed or within the next two days. If you experience worsening or a significant change in your symptoms, notify the physician immediately or return to the Emergency Department at any time for re-evaluation. [facility] [address] Closed ? Opens 9AM Mon Dr. Ovi Garrison, DO [address] [facility] [address] Closed ? Opens 8AM Mon Referrals: GIANCARLO CHANCE MD [Primary Care Provider] - Follow up as needed
[2020-02-03 18:03] VITALS: BP 128/85
== END 2020-02-03 17:49 | disposition home or self-care (01) ==
LOC: ER 17:08
DX: D22.61 Melanocytic nevi of right upper limb, including shoulder (principal); J45.909 Unspecified asthma, uncomplicated
CPT/HCPCS: 99281

== ENCOUNTER 2020-02-04 00:37 | Emergency (ER) | payer MEDICAID ==
[2020-02-04 00:49] VITALS: BP 127/87
--- NOTE | 2020-02-04 01:28 | ER Document Report ---
Entered by HETAL ENAMORADO SCRIBE 02/04/20 0111 Acting as scribe for:TAURUS LEW IV, MD ED General - General Chief Complaint: Allergic Reaction Stated Complaint: SHORTNESS OF BREATH/ANXIETY Time Seen by Provider: 02/04/20 00:56 Primary Care Provider: GIANCARLO CHANCE MD [Primary Care Provider] - Follow up as needed Mode of Arrival: Ambulatory Information source: Patient Notes: This 34 year old male patient who is well known to ED staff presents to the ED today with complaints of shortness of breath after drinking a red Mountain Dew just prior to arrival. Patient reports that he had a similar reaction in the past after drinking "concentrated tea" and that his symptoms resolved after drinking water to "calm the caffeine down." Denies any allergies to food or drink. He also reports swelling to his left 5th digit for the past x4 days. TRAVEL OUTSIDE OF THE [place] IN LAST 30 DAYS: No - Related Data Allergies/Adverse Reactions: No Known Allergies Allergy (Verified 02/03/20 17:39) Past Medical History - General Information source: Patient, [facility] Records - Social History Smoking Status: Never Smoker Cigarette use (# per day): No Chew tobacco use (# tins/day): No Smoking Education Provided: No Lives with: Homeless Family History: Reviewed & Not Pertinent Patient has suicidal ideation: No Patient has homicidal ideation: No Pulmonary Medical History: Reports: Hx Asthma, Hx Bronchitis GI Medical History: Reports: Hx Gastroesophageal Reflux Disease, Hx Irritable Bowel - Constipation Musculoskeletal Medical History: Reports Hx Arthritis, Reports Hx Musculoskeletal Trauma Psychiatric Medical History: Reports: Hx Anxiety, Hx Bipolar Disorder, Hx Depression, Hx Personality Disorder, Hx Schizoaffective Disorder, Hx Schizophrenia Traumatic Medical History: Reports: Hx Fractures - Finger fracture Past Surgical History: Reports: Hx Abdominal Surgery, Hx Appendectomy, Hx Cholecystectomy, Hx Orthopedic Surgery - Immunizations Immunizations up to date: Yes Hx Diphtheria, Pertussis, Tetanus Vaccination: Yes - 2012 Hx Pneumococcal Vaccination: 08/23/00 Review of Systems - Review of Systems Constitutional: No symptoms reported EENT: No symptoms reported Cardiovascular: No symptoms reported Respiratory: See HPI, Short of breath Gastrointestinal: No symptoms reported Genitourinary: No symptoms reported Male Genitourinary: No symptoms reported Musculoskeletal: See HPI, Other - Left 5th digit swelling Hematologic/Lymphatic: No symptoms reported Neurological/Psychological: No symptoms reported -: Yes All other systems reviewed and negative Physical Exam - Vital signs Vitals: Temp Pulse Resp BP Pulse Ox 98.6 F 61 18 127/87 H 100 02/04/20 00:47 02/04/20 00:47 02/04/20 00:47 02/04/20 00:47 02/04/20 00:47 - General General appearance: Alert In distress: None - HEENT Head: Normocephalic, Atraumatic Eyes: Normal Pupils: PERRL - Respiratory Respiratory status: No respiratory distress Chest status: Nontender Breath sounds: Normal Chest palpation: Normal - Cardiovascular Rhythm: Regular Heart sounds: Normal auscultation Murmur: No Friction rub: No Gallop: None auscultated - Abdominal Inspection: Normal Distension: No distension Bowel sounds: Normal Tenderness: Nontender - Abdomen soft Organomegaly: No organomegaly - Back Back: Normal, Nontender - Extremities General upper extremity: Normal inspection General lower extremity: Normal inspection Hand: Other - Left 5th digit has full ROM. No erythema, tenderness, or crepitus appreciated. - Neurological Neuro grossly intact: Yes Orientation: AAOx4 - Psychological Associated symptoms: Normal affect, Normal mood - Skin Skin Temperature: Warm Skin Moisture: Dry Skin Color: Normal Course - Re-evaluation Re-evalutation: 02/04/20 01:13 Physical exam findings and diagnosis discussed with patient. All questions were answered prior to discharge. Emergency signs and symptoms, reasons to return to the emergency department discussed with patient. - Vital Signs Vital signs: Temp Pulse Resp BP Pulse Ox 98.7 F 61 18 127/87 H 100 02/04/20 01:03 02/04/20 00:47 02/04/20 00:47 02/04/20 00:47 02/04/20 00:47 Discharge - Discharge Clinical Impression: Adverse reaction to caffeine Qualifiers: Encounter type: initial encounter Qualified Code(s): T43.615A - Adverse effect of caffeine, initial encounter Condition: Good Disposition: HOME, SELF-CARE Instructions: Anxiety ([facility]) Additional Instructions: Return to the Emergency Department without delay if any worse. HOME CARE INSTRUCTIONS & INFORMATION: Thank you for choosing us for your medical needs. We hope you're satisfied with the care you received. After you leave, you must properly care for your problem and, at the same time, observe its progress. Any condition can change. Some illnesses can change rapidly over hours or days. If your condition worsens, return to the Emergency Department or see your physician promptly. ABOUT YOUR X-RAYS AND EKG'S: If you had an EKG or X-rays taken, they have been read by the Emergency Physician. The X-rays and EKG's will also be read by a Radiologist or Electric Arc Welder within 24 hours. If discrepancies are noted, you will be notified by telephone. Please be certain the ED has a correct telephone number & address where you can be reached. Also, realize that some fractures or abnormalities do not show up on initial X-rays. If your symptoms continue, see your physician. ABOUT YOUR LABORATORY TEST: If you had laboratory tests, the results have been reviewed by the Emergency Physician. Some test results (for example cultures) may not be available for several days. You will be contacted if any test result shows you need additional treatment. Please be certain the ED has a correct telephone number and address where you can be reached. ABOUT YOUR MEDICATIONS: You will receive instructions on how to take your medicine on the prescription label you receive. Additional information may be provided by the Pharmacy. If you have questions afterwards, call the ED for clarification or further instructions. Some prescribed medications may cause drowsiness. Do not perform tasks such as driving a car or operating machinery without consulting your Pharmacist. If you feel you need a refill of pain medication, your condition will need re-evaluation. Please do not call for a refill of any medication. ABOUT YOUR SIGNATURE: Signature of this document acknowledges to followin. Understanding that you received emergency treatment and that you may be released before al medical problems are known or treated. Please be certain the ED has a correct phone number & address where you can be reached. 2. Acknowledgement that you will arrange for follow-up care as recommended. 3. Authorization for the Emergency Physician to provide information to your follow-up Physician in order to maximize your care. AT ANY TIME, IF YOUR SYMPTOMS CHANGE SIGNIFICANTLY OR WORSEN OR YOU DEVELOP NEW SYMPTOMS, RETURN TO THE EMERGENCY DEPARTMENT IMMEDIATELY FOR RE-EVALUATION. OUR GOAL IS TO PROVIDE EXCELLENT MEDICAL CARE! WE HOPE THAT WE HAVE MET YOUR EXPECTATIONS DURING YOUR EMERGENCY DEPARTMENT VISIT AND THAT YOU FEEL YOU HAVE RECEIVED EXCELLENT CARE! Referrals: GIANCARLO CHANCE MD [Primary Care Provider] - Follow up as needed I personally performed the services described in the documentation, reviewed and edited the documentation which was dictated to the scribe in my presence, and it accurately records my words and actions.
== END 2020-02-04 01:30 | disposition home or self-care (01) ==
LOC: ER 00:37
DX: T43.615A Adverse effect of caffeine, initial encounter (principal); R06.02 Shortness of breath; F41.9 Anxiety disorder, unspecified; J45.909 Unspecified asthma, uncomplicated
CPT/HCPCS: 99283

== ENCOUNTER 2020-02-06 20:49 | Emergency (ER) | payer MEDICAID ==
[2020-02-06] MEDS ORDERED: MAG HYDROX/AL HYDROX/SIMETH SUSP 30 ML UDCUP PO ONE (21:19)
[2020-02-06] MEDS ORDERED: FAMOTIDINE 20 MG TABLET PO ONE (21:19)
--- NOTE | 2020-02-06 21:22 | ER Document Report ---
HPI - HPI Time Seen by Provider: 02/06/20 21:04 Context: Patient is a 34-year-old male that comes emergency department for chief complaint of an episode prior to arrival where he felt discomfort in his left upper abdomen (he points). He states that he was eating a "taco mix" when he started feeling the symptoms, he states that he was not sure if the tightness was from "my lung or my stomach". He states his symptoms did resolve. He denies difficulty breathing, cough, fever, chest pain, abdominal pain, vomiting, nausea, abnormal bowel movements. He has a history of paranoid schizophrenia and asthma. - REPRODUCTIVE Reproductive: DENIES: : Past Medical History - General Information source: Patient - Social History Smoking Status: Never Smoker Frequency of alcohol use: None Drug Abuse: None Lives with: Family Family History: Reviewed & Not Pertinent Pulmonary Medical History: Reports: Hx Asthma, Hx Bronchitis GI Medical History: Reports: Hx Gastroesophageal Reflux Disease, Hx Irritable Bowel - Constipation Musculoskeletal Medical History: Reports Hx Arthritis, Reports Hx Musculoskeletal Trauma Psychiatric Medical History: Reports: Hx Anxiety, Hx Bipolar Disorder, Hx Depression, Hx Personality Disorder, Hx Schizoaffective Disorder, Hx Schizophrenia Traumatic Medical History: Reports: Hx Fractures - Finger fracture Past Surgical History: Reports: Hx Abdominal Surgery, Hx Appendectomy, Hx Cholecystectomy, Hx Orthopedic Surgery - Immunizations Immunizations up to date: Yes Hx Diphtheria, Pertussis, Tetanus Vaccination: Yes - 2012 Hx Pneumococcal Vaccination: 08/23/00 Vertical Provider Document - CONSTITUTIONAL General Appearance: WD/WN, No Apparent Distress - INFECTION CONTROL TRAVEL OUTSIDE OF THE [place] IN LAST 30 DAYS: No - HEENT HEENT: Atraumatic, Normal ENT Exam, Normocephalic - NECK Neck: Normal Inspection - RESPIRATORY Respiratory: Breath Sounds Normal, No Respiratory Distress. negative: Wheezing - CARDIOVASCULAR Cardiovascular: Regular Rate, Regular Rhythm - GI/ABDOMEN Gastrointestinal: Abdomen Soft, Abdomen Non-Tender. negative: Abdomen Tender - BACK Back: Normal Inspection - MUSCULOSKELETAL/EXTREMETIES Musculoskeletal/Extremeties: MAEW, FROM, Non-Tender - NEURO Level of Consciousness: Awake, Alert, Appropriate Motor/Sensory: No Motor Deficit, No Sensory Deficit - DERM Integumentary: Warm, Dry, No Rash Course - Re-evaluation Re-evalutation: Patient with no current symptoms. Lungs clear, abdomen soft, patient talkative and well appearing. Vital signs unremarkable. Patient is very well-known to me. Symptoms were in the left upper quadrant after eating a taco mix including spicy contents. Patient was given Maalox and Pepcid here on request, he has no additional complaints, he will be discharged with return precautions. He states understanding and agreement. He actually has followed up recently with primary care and will continue to do so. Patient asymptomatic and well-appearing at time of discharge. Discharge - Discharge Clinical Impression: Abdominal discomfort in left upper quadrant Condition: Stable Disposition: HOME, SELF-CARE Additional Instructions: Your symptoms are most likely related to pain/inflammation and your stomach, part of your upper gastrointestinal tract. I recommend [id number] Pepcid, avoiding spicy food or caffeine, symptoms should simply resolve. Follow-up with primary care. Return if you worsen including severe worsening pain, vomiting, difficulty breathing, or any other concerning or worsening symptoms. Referrals: GIANCARLO CHANCE MD [Primary Care Provider] - Follow up as needed
[2020-02-06 21:33] VITALS: BP 117/77
== END 2020-02-06 21:53 | disposition home or self-care (01) ==
LOC: ER 20:49
DX: R10.12 Left upper quadrant pain (principal); J45.909 Unspecified asthma, uncomplicated
CPT/HCPCS: 99283; J3490 ×2

== ENCOUNTER 2020-02-07 02:25 | Emergency (ER) | payer MEDICAID ==
[2020-02-07] MEDS ORDERED: FLUTICASONE NASAL SPRAY 50 MCG/SPRY 120 SPRAY/16 GM NASL ONE (04:49)
--- NOTE | 2020-02-07 04:50 | ER Document Report ---
ED General - General Chief Complaint: Cough Stated Complaint: COUGH Time Seen by Provider: 02/07/20 04:25 Primary Care Provider: GIANCARLO CHANCE MD [Primary Care Provider] - Follow up as needed Mode of Arrival: Ambulatory Information source: Patient TRAVEL OUTSIDE OF THE [place] IN LAST 30 DAYS: No - HPI Onset: Other - over the last few days Onset/Duration: Gradual Quality of pain: No pain Severity: Mild Pain Level: Denies Associated symptoms: Rhinnorhea Exacerbated by: Denies Relieved by: Denies Similar symptoms previously: Yes - with seasonal allergies Recently seen / treated by doctor: Yes - seen in this ER yesterday Notes: 34 year old male with a history of season allergies and asthma here in the ER for sinus congestion and a runny nose for the last 12-24 hours. The patient feels like his allergies are acting up. The patient denies fevers, chills, sweats, nausea, vomiting, productive cough, trouble breathing, shortness of breath. The patient is well known to this ER and seems to be in his normal state of health. - Related Data Allergies/Adverse Reactions: No Known Allergies Allergy (Verified 02/03/20 17:39) Past Medical History - General Information source: Patient - Social History Smoking Status: Never Smoker Frequency of alcohol use: None Drug Abuse: None Family History: Reviewed & Not Pertinent Pulmonary Medical History: Reports: Hx Asthma, Hx Bronchitis GI Medical History: Reports: Hx Gastroesophageal Reflux Disease, Hx Irritable Bowel - Constipation Musculoskeletal Medical History: Reports Hx Arthritis, Reports Hx Musculoskeletal Trauma Psychiatric Medical History: Reports: Hx Anxiety, Hx Bipolar Disorder, Hx Depression, Hx Personality Disorder, Hx Schizoaffective Disorder, Hx Schizophrenia Traumatic Medical History: Reports: Hx Fractures - Finger fracture Past Surgical History: Reports: Hx Abdominal Surgery, Hx Appendectomy, Hx Cholecystectomy, Hx Orthopedic Surgery - Immunizations Immunizations up to date: Yes Hx Diphtheria, Pertussis, Tetanus Vaccination: Yes - 2012 Hx Pneumococcal Vaccination: 08/23/00 Review of Systems - Review of Systems Constitutional: No symptoms reported EENT: Nose congestion, Nose discharge Cardiovascular: No symptoms reported Respiratory: No symptoms reported Gastrointestinal: No symptoms reported Genitourinary: No symptoms reported Male Genitourinary: No symptoms reported Musculoskeletal: No symptoms reported Skin: No symptoms reported Hematologic/Lymphatic: No symptoms reported Neurological/Psychological: No symptoms reported -: Yes All other systems reviewed and negative Physical Exam - Vital signs Vitals: Temp Pulse Resp BP Pulse Ox 98.0 F 56 L 16 124/75 100 02/07/20 04:14 02/07/20 04:14 02/07/20 04:02/07/20 04:02/07/20 04:14 - Notes Notes: GENERAL: Well-appearing, well-nourished and in no acute distress. HEAD: Atraumatic, normocephalic. EYES: Pupils equal round and reactive to light, extraocular movements intact, sclera anicteric, conjunctiva are normal. ENT: External ears normal, nares with clear rhinnorhea amd swelling of the turbinates, oropharynx clear without exudates. Moist mucous membranes. NECK: Normal range of motion, supple without lymphadenopathy or JVD. LUNGS: Breath sounds clear to auscultation bilaterally and equal. No wheezes rales or rhonchi. HEART: Regular rate and rhythm without murmurs, rubs or gallops. ABDOMEN: Soft, nontender, normoactive bowel sounds. No guarding, no rebound. No masses appreciated. EXTREMITIES: Normal range of motion, no pitting or edema. No clubbing or cyanosis. NEUROLOGICAL: Cranial nerves II through XII grossly intact. Normal speech, normal gait. PSYCH: Normal mood, normal affect. SKIN: Warm, Dry, normal turgor, no rashes or lesions noted. Course - Re-evaluation Re-evalutation: 02/07/20 05:14 The patient is here for sinus congestion and nasal discharge which he feels is consistent with season allergies. Patient given flonase and he was told to also use over the counter allergy mediations. No need for lab work or imaging today given this is chronic issue. Patient told to follow up with is PCP. - Vital Signs Vital signs: Temp Pulse Resp BP Pulse Ox 98.0 F 56 L 16 124/75 100 02/07/20 04:14 02/07/20 04:14 02/07/20 04:02/07/20 04:02/07/20 04:14 Discharge - Discharge Clinical Impression: Rhinorrhea Allergies Qualifiers: Encounter type: subsequent encounter Qualified Code(s): T78.40XD - Allergy, unspecified, subsequent encounter Condition: Stable Disposition: HOME, SELF-CARE Instructions: Nasal Corticosteroid Inhaler ([facility]) Additional Instructions: Use Flonase as directed twice a day. Also use over the counter allergy medications. Follow up with a primary care doctor. Seek medical attention for trouble breathing, shortness of breath or if you are worse. Referrals: GIANCARLO CHANCE MD [Primary Care Provider] - Follow up as needed
[2020-02-07] MEDS ORDERED: FLUTICASONE NASAL SPRAY 50 MCG/SPRY 120 SPRAY/16 GM ONE (06:48)
[2020-02-07 07:14] VITALS: BP 121/86
== END 2020-02-07 07:31 | disposition home or self-care (01) ==
LOC: ER 02:25
DX: R09.81 Nasal congestion (principal); J30.1 Allergic rhinitis due to pollen; R05 Cough; Z90.49 Acquired absence of other specified parts of digestive tract
CPT/HCPCS: 99283; J3490

== ENCOUNTER 2020-02-12 17:08 | Emergency (ER) | payer MEDICAID ==
[2020-02-12 17:13] VITALS: BP 119/75
--- NOTE | 2020-02-12 17:35 | ER Document Report ---
HPI - HPI Patient complains to provider of: lesion Time Seen by Provider: 02/12/20 17:25 Pain Level: Denies Context: 34-year-old male presents to the emergency room stating that he felt a lump to the left side of his chest wall earlier today. States he was at his primary care office earlier today but neglected to tell his primary care physician about the lump. States is not painful. Does not itch or burn. "I just noticed it was there" Denies any trauma or injury. No cough, no shortness of breath, no difficulty breathing. Associated Symptoms: None Exacerbated by: Denies Relieved by: Denies Similar symptoms previously: No Recently seen / treated by doctor: Yes - Saw PMD today but did not tell them about the lump - ROS Systems Reviewed and Negative: Yes All other systems reviewed and negative - CONSTITUTIONAL Constitutional: DENIES: Fever, Chills - EENT EENT: DENIES: Sore Throat, Ear Pain, Eye problems - NEURO Neurology: DENIES: Headache, Weakness, Vision blurred, Dizzinesss / Vertigo - CARDIOVASCULAR Cardiovascular: DENIES: Chest pain - RESPIRATORY Respiratory: DENIES: Trouble Breathing, Coughing - GASTROINTESTINAL Gastrointestinal: DENIES: Abdominal Pain, Black / Bloody Stools - URINARY Urinary: DENIES: Dysuria, Urgency, Frequency - REPRODUCTIVE Reproductive: DENIES: : - MUSCULOSKELETAL Musculoskeletal: DENIES: Extremity pain - DERM Skin Color: Normal Notes: Lump to chest wall Past Medical History - General Information source: Patient - Social History Smoking Status: Never Smoker Frequency of alcohol use: None Drug Abuse: None Family History: Reviewed & Not Pertinent Pulmonary Medical History: Reports: Hx Asthma, Hx Bronchitis GI Medical History: Reports: Hx Gastroesophageal Reflux Disease, Hx Irritable Bowel - Constipation Musculoskeletal Medical History: Reports Hx Arthritis, Reports Hx Musculoskeletal Trauma Psychiatric Medical History: Reports: Hx Anxiety, Hx Bipolar Disorder, Hx Depression, Hx Personality Disorder, Hx Schizoaffective Disorder, Hx Schizophrenia Traumatic Medical History: Reports: Hx Fractures - Finger fracture Past Surgical History: Reports: Hx Abdominal Surgery, Hx Appendectomy, Hx Cholecystectomy, Hx Orthopedic Surgery - Immunizations Immunizations up to date: Yes Hx Diphtheria, Pertussis, Tetanus Vaccination: Yes - 2012 Hx Pneumococcal Vaccination: 08/23/00 Vertical Provider Document - CONSTITUTIONAL Agree With Documented VS: Yes Exam Limitations: No Limitations General Appearance: No Apparent Distress - INFECTION CONTROL TRAVEL OUTSIDE OF THE [place] IN LAST 30 DAYS: No - HEENT HEENT: Atraumatic, Normocephalic - NECK Neck: Normal Inspection, Supple, Thyroid Normal - RESPIRATORY Respiratory: Breath Sounds Normal, No Respiratory Distress, Chest Non-Tender - CARDIOVASCULAR Cardiovascular: Regular Rate, Regular Rhythm, No Murmur - MUSCULOSKELETAL/EXTREMETIES Musculoskeletal/Extremeties: FROM - NEURO Level of Consciousness: Awake, Alert, Appropriate Motor/Sensory: No Motor Deficit, No Sensory Deficit - DERM Integumentary: Warm, Dry, No Rash Notes: Left anterior chest wall along the sternum there is a 1 cm soft nontender palpable lump consistent with a lipoma. No erythema. Not warm to touch. Course - Re-evaluation Re-evalutation: 02/12/20 17:45 Patient was counseled on diagnosis. Outpatient follow-up with primary care physician for any changes in size, shape, texture, if it becomes itchy or if he develops pain. Patient was given strict return to the emergency room guidelines. Return for any new or worsening symptoms. All questions were answered. Patient verbalized understanding and agrees with plan of care. - Vital Signs Vital signs: Temp Pulse Resp BP Pulse Ox 99 F 94 16 119/75 94 02/12/20 17:11 02/12/20 17:11 02/12/20 17:11 02/12/20 17:11 02/12/20 17:11 Discharge - Discharge Clinical Impression: Lipoma of anterior chest wall Condition: Stable Disposition: HOME, SELF-CARE Instructions: Growth or Mass, Pending Workup ([facility]) Additional Instructions: Follow-up with your primary care physician for any increased swelling, pain or change in symptoms. Return for any new or worsening symptoms. Referrals: GIANCARLO CHANCE MD [Primary Care Provider] - Follow up as needed
== END 2020-02-12 17:55 | disposition home or self-care (01) ==
LOC: ER 17:08
DX: D17.1 Benign lipomatous neoplasm of skin and subcutaneous tissue of trunk (principal)
CPT/HCPCS: 99282

== ENCOUNTER 2020-02-12 22:20 | Emergency (ER) | payer MEDICAID ==
[2020-02-12 22:34] VITALS: BP 126/77
--- NOTE | 2020-02-12 23:05 | ER Document Report ---
HPI - HPI Time Seen by Provider: 02/12/20 22:59 Notes: Patient is a 34-year-old male well-known to our emergency department presenting with concern that he may have eaten something abnormal. Patient has a bag of gummy candies and shows me one that he found that was irregularly shaped. Patient is concerned that perhaps somebody has bitten into it. Patient reports he bought the back from the store and the bag was completely sealed. Patient has no physical symptoms whatsoever. - ROS ROS below otherwise negative: Yes Systems Reviewed and Negative: Yes All other systems reviewed and negative - REPRODUCTIVE Reproductive: DENIES: : Past Medical History - General Information source: Patient - Social History Smoking Status: Never Smoker Frequency of alcohol use: None Drug Abuse: None Family History: Reviewed & Not Pertinent Pulmonary Medical History: Reports: Hx Asthma, Hx Bronchitis GI Medical History: Reports: Hx Gastroesophageal Reflux Disease, Hx Irritable Bowel - Constipation Musculoskeletal Medical History: Reports Hx Arthritis, Reports Hx Musculoskeletal Trauma Psychiatric Medical History: Reports: Hx Anxiety, Hx Bipolar Disorder, Hx Depression, Hx Personality Disorder, Hx Schizoaffective Disorder, Hx Schizophrenia Traumatic Medical History: Reports: Hx Fractures - Finger fracture Past Surgical History: Reports: Hx Abdominal Surgery, Hx Appendectomy, Hx Cholecystectomy, Hx Orthopedic Surgery - Immunizations Immunizations up to date: Yes Hx Diphtheria, Pertussis, Tetanus Vaccination: Yes - 2012 Hx Pneumococcal Vaccination: 08/23/00 Vertical Provider Document - CONSTITUTIONAL Notes: PHYSICAL EXAMINATION: GENERAL: Well-appearing, well-nourished and in no acute distress. HEAD: Atraumatic, normocephalic. EYES: Pupils equal round extraocular movements intact, conjunctiva are normal. ENT: Nares patent NECK: Normal range of motion LUNGS: No respiratory distress Musculoskeletal: Normal range of motion NEUROLOGICAL: Normal speech, normal gait. PSYCH: Normal mood, normal affect. SKIN: Warm, Dry, normal turgor, no rashes or lesions noted. - INFECTION CONTROL TRAVEL OUTSIDE OF THE [place] IN LAST 30 DAYS: No Course - Re-evaluation Re-evalutation: 02/12/20 23:04 Patient reassured that there did not appear to be any abnormality with the candy in the back that he had bought from the store. Patient wanted to leave prior to papers being printed for discharge. - Vital Signs Vital signs: Temp Pulse Resp BP Pulse Ox 98.6 F 75 18 126/77 H 99 02/12/20 22:33 02/12/20 22:33 02/12/20 22:33 02/12/20 22:33 02/12/20 22:33 Discharge - Discharge Clinical Impression: Normal exam Condition: Stable Disposition: HOME, SELF-CARE Additional Instructions: There is no concern about the candy that you ate this evening. I believe it was a factory defect in the shape of the candy and not something that was tampered with. Referrals: GIANCARLO CHANCE MD [Primary Care Provider] - Follow up as needed
== END 2020-02-12 23:07 | disposition home or self-care (01) ==
LOC: ER 22:20
DX: Z71.1 Person with feared health complaint in whom no diagnosis is made (principal)
CPT/HCPCS: 99283

== ENCOUNTER 2020-02-13 01:32 | Emergency (ER) | payer MEDICAID ==
--- NOTE | 2020-02-13 02:29 | ER Document Report ---
ED General - General Chief Complaint: Itching Stated Complaint: WOUND CHECK Primary Care Provider: GIANCARLO CHANCE MD [Primary Care Provider] - Follow up as needed Notes: 34 year old male arrives with some dried mud on his left ankle anteriorly and concern because it itched earlier and he wondered if it may be infected. No fever and no other complaints. TRAVEL OUTSIDE OF THE [place] IN LAST 30 DAYS: No - HPI Onset/Duration: Constant Quality of pain: No pain Severity: Mild Associated symptoms: None Exacerbated by: Denies Relieved by: Denies - Related Data Allergies/Adverse Reactions: No Known Allergies Allergy (Verified 02/12/20 22:54) Past Medical History - Social History Smoking Status: Former Smoker Chew tobacco use (# tins/day): No Frequency of alcohol use: None Family History: Reviewed & Not Pertinent Patient has homicidal ideation: No Pulmonary Medical History: Reports: Hx Asthma, Hx Bronchitis GI Medical History: Reports: Hx Gastroesophageal Reflux Disease, Hx Irritable Bowel - Constipation Musculoskeletal Medical History: Reports Hx Arthritis, Reports Hx Musculoskeletal Trauma Psychiatric Medical History: Reports: Hx Anxiety, Hx Bipolar Disorder, Hx Depression, Hx Personality Disorder, Hx Schizoaffective Disorder, Hx Schizophrenia Traumatic Medical History: Reports: Hx Fractures - Finger fracture Past Surgical History: Reports: Hx Abdominal Surgery, Hx Appendectomy, Hx Cholecystectomy, Hx Orthopedic Surgery - Immunizations Immunizations up to date: Yes Hx Diphtheria, Pertussis, Tetanus Vaccination: Yes - 2012 Hx Pneumococcal Vaccination: 08/23/00 Review of Systems - Review of Systems Constitutional: No symptoms reported EENT: No symptoms reported Cardiovascular: No symptoms reported Respiratory: No symptoms reported Gastrointestinal: No symptoms reported Genitourinary: No symptoms reported Male Genitourinary: No symptoms reported Musculoskeletal: No symptoms reported Skin: See HPI, Other - itching Hematologic/Lymphatic: No symptoms reported Neurological/Psychological: No symptoms reported Physical Exam - Vital signs Vitals: Temp Pulse Resp BP Pulse Ox 97.7 F 65 16 137/85 H 98 02/13/20 01:38 02/13/20 01:38 02/13/20 01:38 02/13/20 01:38 02/13/20 01:38 Interpretation: Normal - General General appearance: Appears well, Alert - HEENT Head: Normocephalic, Atraumatic Eyes: Normal Pupils: PERRL - Respiratory Respiratory status: No respiratory distress Chest status: Nontender Breath sounds: Normal Chest palpation: Normal - Cardiovascular Rhythm: Regular Heart sounds: Normal auscultation Murmur: No - Abdominal Inspection: Normal Distension: No distension Bowel sounds: Normal Tenderness: Nontender Organomegaly: No organomegaly - Back Back: Normal, Nontender - Extremities General upper extremity: Normal inspection, Nontender, Normal color, Normal ROM, Normal temperature General lower extremity: Normal inspection, Nontender, Normal color, Normal ROM, Normal temperature, Normal weight bearing. No: Esdras's sign - Neurological Neuro grossly intact: Yes Cognition: Normal Orientation: AAOx4 [place] Coma Scale Eye Opening: Spontaneous [place] Coma Scale Verbal: Oriented Jasmin Coma Scale Motor: Obeys Commands [place] Coma Scale Total: 15 Speech: Normal Motor strength normal: LUE, RUE, LLE, RLE Sensory: Normal - Psychological Associated symptoms: Normal affect, Normal mood - Skin Skin Temperature: Warm - a bit of dried mud on left ant anlkle. No injury. No redness or deformity. Skin Moisture: Dry Skin Color: Normal Course - Re-evaluation Re-evalutation: 02/13/20 02:44 MDM 34 year old male is nontoxic and no serious disease process noted. No cellulities or abcess. Discussed not using hydrocrtisone on feet and using bacitracin for itching. He expressed understanding. - Vital Signs Vital signs: Temp Pulse Resp BP Pulse Ox 97.8 F 66 16 136/84 H 98 02/13/20 02:36 02/13/20 02:36 02/13/20 02:36 02/13/20 02:36 02/13/20 02:36 Discharge - Discharge Clinical Impression: Dirty living conditions Condition: Stable Disposition: HOME, SELF-CARE Instructions: Itching, Nonspecific ([facility]) Additional Instructions: Use benadryl cream. Take tylenol should pain develop. Return here for any problems or any concerns including but not limited to fever, pain, redness or other concerns. Referrals: GIANCARLO CHANCE MD [Primary Care Provider] - Follow up as needed
[2020-02-13 02:37] VITALS: BP 136/84
== END 2020-02-13 02:36 | disposition home or self-care (01) ==
LOC: ER 01:32
DX: L29.9 Pruritus, unspecified (principal); Z59.1 Inadequate housing
CPT/HCPCS: 99282

== ENCOUNTER 2020-02-13 20:06 | Emergency (ER) | payer MEDICAID ==
[2020-02-13 20:13] VITALS: BP 115/78
--- NOTE | 2020-02-13 20:24 | ER Document Report ---
HPI - HPI Patient complains to provider of: Throat spasm Time Seen by Provider: 02/13/20 20:19 Onset: Just prior to arrival Quality of pain: No pain Pain Level: 0 Associated Symptoms: None Exacerbated by: Denies Similar symptoms previously: Yes - ROS ROS Unobtainable: Yes ROS unobtainable due to patient's medical condition Systems Reviewed and Negative: Yes All other systems reviewed and negative - REPRODUCTIVE Reproductive: DENIES: : Past Medical History - General Information source: Patient - Social History Smoking Status: Never Smoker Cigarette use (# per day): No Chew tobacco use (# tins/day): No Smoking Education Provided: No Frequency of alcohol use: None Drug Abuse: None Lives with: Alone Family History: Reviewed & Not Pertinent Pulmonary Medical History: Reports: Hx Asthma, Hx Bronchitis GI Medical History: Reports: Hx Gastroesophageal Reflux Disease, Hx Irritable Bowel - Constipation Musculoskeletal Medical History: Reports Hx Arthritis, Reports Hx Musculoskeletal Trauma Psychiatric Medical History: Reports: Hx Anxiety, Hx Bipolar Disorder, Hx Depression, Hx Personality Disorder, Hx Schizoaffective Disorder, Hx Schizophrenia Traumatic Medical History: Reports: Hx Fractures - Finger fracture Past Surgical History: Reports: Hx Abdominal Surgery, Hx Appendectomy, Hx Cholecystectomy, Hx Orthopedic Surgery - Immunizations Immunizations up to date: Yes Hx Diphtheria, Pertussis, Tetanus Vaccination: Yes - 2012 Hx Pneumococcal Vaccination: 08/23/00 Vertical Provider Document - CONSTITUTIONAL Agree With Documented VS: Yes - INFECTION CONTROL TRAVEL OUTSIDE OF THE [place] IN LAST 30 DAYS: No - HEENT HEENT: Atraumatic - NECK Neck: Normal Inspection, Supple - RESPIRATORY Respiratory: Breath Sounds Normal - CARDIOVASCULAR Cardiovascular: Regular Rate, Regular Rhythm - GI/ABDOMEN Gastrointestinal: Abdomen Soft, Abdomen Non-Tender - REPRODUCTIVE Male Genitalia: Normal Inspection - BACK Back: Normal Inspection - MUSCULOSKELETAL/EXTREMETIES Musculoskeletal/Extremeties: MAEW - NEURO Level of Consciousness: Awake, Alert Motor/Sensory: No Motor Deficit - DERM Integumentary: Warm, Dry Course - Re-evaluation Re-evalutation: 02/13/20 20:20 No difficulty breathing no difficulty swallowing no oral floor induration no trismus saturations 98%. - Vital Signs Vital signs: Temp Pulse Resp BP Pulse Ox 98.9 F 98 20 115/78 98 02/13/20 20:11 02/13/20 20:11 02/13/20 20:11 02/13/20 20:11 02/13/20 20:11 Discharge - Discharge Clinical Impression: Esophageal spasm Condition: Good Disposition: ADMITTED INPATIENT Instructions: Esophageal Spasm ([facility]) Additional Instructions: Medication as prescribed. Prescriptions: Diphenhydramine HCl [Benadryl 25 mg Capsule] 25 mg PO Q6 PRN #25 capsule PRN Reason: Diphenhydramine HCl [Benadryl 25 mg Capsule] 25 mg PO Q6 PRN #25 capsule PRN Reason: Forms: Elevated Blood Pressure Referrals: GIANCARLO CHANCE MD [Primary Care Provider] - Follow up as needed
== END 2020-02-13 20:26 | disposition other institution (70) ==
LOC: ER 20:06
DX: J39.2 Other diseases of pharynx (principal); Z90.49 Acquired absence of other specified parts of digestive tract
CPT/HCPCS: 99284

== ENCOUNTER 2020-02-14 15:29 | Emergency (ER) | payer MEDICAID ==
[2020-02-14 15:34] VITALS: BP 134/80
--- NOTE | 2020-02-14 16:38 | ER Document Report ---
ED General - General Chief Complaint: Sunburn Stated Complaint: POSSIBLE SUNBURN Primary Care Provider: GIANCARLO CHANCE MD [Primary Care Provider] - Follow up as needed Notes: Patient is 34-year-old male with no reported significant past medical history presents the emergency department the chief complaint of sunburn to the bilateral arms and upper center chest for the past 2 days. States he was out in the sun and noticed increased redness to the anterior arms and center chest in the neckline where the skin was exposed to the sun. He states the area is not painful nor pruritic. Denies any blistering or peeling. States he was unsure what to put on the sunburn so he came for evaluation. Denies any questionable lesions. TRAVEL OUTSIDE OF THE [place] IN LAST 30 DAYS: No - Related Data Allergies/Adverse Reactions: No Known Allergies Allergy (Verified 02/12/20 22:54) Past Medical History - Social History Smoking Status: Never Smoker Frequency of alcohol use: None Drug Abuse: None Family History: Reviewed & Not Pertinent Patient has homicidal ideation: No Pulmonary Medical History: Reports: Hx Asthma, Hx Bronchitis GI Medical History: Reports: Hx Gastroesophageal Reflux Disease, Hx Irritable Bowel - Constipation Musculoskeletal Medical History: Reports Hx Arthritis, Reports Hx Musculoskeletal Trauma Psychiatric Medical History: Reports: Hx Anxiety, Hx Bipolar Disorder, Hx Depression, Hx Personality Disorder, Hx Schizoaffective Disorder, Hx Schizophrenia Traumatic Medical History: Reports: Hx Fractures - Finger fracture Past Surgical History: Reports: Hx Abdominal Surgery, Hx Appendectomy, Hx Cholecystectomy, Hx Orthopedic Surgery - Immunizations Immunizations up to date: Yes Hx Diphtheria, Pertussis, Tetanus Vaccination: Yes - 2012 Hx Pneumococcal Vaccination: 08/23/00 Review of Systems - Review of Systems Skin: Change in color -: Yes All other systems reviewed and negative Physical Exam - Vital signs Vitals: Temp 98.5 F 02/14/20 15:29 - General General appearance: Appears well, Alert In distress: None - Respiratory Respiratory status: No respiratory distress Chest status: Nontender Breath sounds: Normal Chest palpation: Normal - Cardiovascular Rhythm: Regular Heart sounds: Normal auscultation - Neurological Neuro grossly intact: Yes Cognition: Normal Orientation: AAOx4 - Psychological Associated symptoms: Normal affect, Normal mood - Skin Skin Color: Other - Mild sunburn noted to the dorsal surfaces of the bilateral upper extremities as well as the upper chest/lower neckline and the shape of the V-neck shirt the patient is wearing. No blistering, suspicious lesions on exposed skin or peeling. Area of blanching. Nonpainful. No excoriations. Course - Re-evaluation Re-evalutation: 02/14/20 16:37 Patient with a mild primary sunburn. Discussed sunscreen/sun block and aloe vera application as well as oral hydration. Counseled him regarding the importance of outpatient follow-up and advised to return here any ER immediately with any new, persistent or worsening symptoms. He verbalized understood and agreed. - Vital Signs Vital signs: Temp Pulse Resp BP Pulse Ox 98.5 F 95 14 134/80 H 96 02/14/20 15:32 02/14/20 15:32 02/14/20 15:32 02/14/20 15:32 02/14/20 15:32 Discharge - Discharge Clinical Impression: Sunburn Condition: Stable Disposition: HOME, SELF-CARE Instructions: Sunburn ([facility]) Additional Instructions: Please obtain a sunscreen or sunblock with aloe vera lotion. Please ensure adequate hydration by increasing intake of clear fluids. Follow-up with your regular doctor for reevaluation. Return here or any ER immediately with any new, persistent or worsening symptoms. Referrals: GIANCARLO CHANCE MD [Primary Care Provider] - Follow up as needed
== END 2020-02-14 16:35 | disposition home or self-care (01) ==
LOC: ER 15:29
DX: L55.9 Sunburn, unspecified (principal); Z90.49 Acquired absence of other specified parts of digestive tract
CPT/HCPCS: 99282

== ENCOUNTER 2020-02-16 10:41 | Emergency (ER) | payer MEDICAID ==
[2020-02-16 13:59] VITALS: BP 117/71
--- NOTE | 2020-02-16 14:00 | ER Document Report ---
ED General - General Chief Complaint: Other Stated Complaint: NO SYMPTOMS,WANTS CHECKED OUT Primary Care Provider: GIANCARLO CHANCE MD [Primary Care Provider] - Follow up as needed Notes: Patient is a 34-year-old -[place] male who is well-known to this emergency department who presents today with a chief complaint of having exposure to "rat urine". He states in his home he has noticed a persistent solitary rash. He states he has previously caught the rash and try to flush down the toilet but it "came back". He is adamant that it is a same animal over and over. He states the animal appears healthy and has not malnourished or sickly in any way. He states that he accidentally touched an area that he was suspects was rat urine and then not thinking touched his finger to his tongue. He states he got very concerned for potential diseases transmitted via the right urine. He called poison control who advised on the possibility of mild upset stomach may be nausea or vomiting in relation to the large ingestion however his was very small. He states he has had no symptoms and feels completely normal but wanted to come for evaluation. TRAVEL OUTSIDE OF THE [place] IN LAST 30 DAYS: No - Related Data Allergies/Adverse Reactions: No Known Allergies Allergy (Verified 02/12/20 22:54) Past Medical History - Social History Smoking Status: Never Smoker Family History: Reviewed & Not Pertinent Pulmonary Medical History: Reports: Hx Asthma, Hx Bronchitis GI Medical History: Reports: Hx Gastroesophageal Reflux Disease, Hx Irritable Bowel - Constipation Musculoskeletal Medical History: Reports Hx Arthritis, Reports Hx Musculoskeletal Trauma Psychiatric Medical History: Reports: Hx Anxiety, Hx Bipolar Disorder, Hx Depression, Hx Personality Disorder, Hx Schizoaffective Disorder, Hx Schizophrenia Traumatic Medical History: Reports: Hx Fractures - Finger fracture Past Surgical History: Reports: Hx Abdominal Surgery, Hx Appendectomy, Hx Cholecystectomy, Hx Orthopedic Surgery - Immunizations Immunizations up to date: Yes Hx Diphtheria, Pertussis, Tetanus Vaccination: Yes - 2012 Hx Pneumococcal Vaccination: 08/23/00 Review of Systems - Review of Systems -: Yes All other systems reviewed and negative Physical Exam - Vital signs Vitals: Temp Pulse Resp BP Pulse Ox 98.9 F 73 16 120/70 97 02/16/20 11:02 02/16/20 11:02 02/16/20 11:02 02/16/20 11:02 02/16/20 11:02 - General General appearance: Appears well, Alert In distress: None - HEENT Head: Normocephalic, Atraumatic Eyes: Normal Conjunctiva: Normal Pupils: PERRL Neck: Supple - Respiratory Respiratory status: No respiratory distress Chest status: Nontender Breath sounds: Normal Chest palpation: Normal - Cardiovascular Rhythm: Regular Heart sounds: Normal auscultation - Extremities General upper extremity: Normal inspection, Nontender, Normal color, Normal ROM, Normal temperature General lower extremity: Normal inspection, Nontender, Normal color, Normal ROM, Normal temperature, Normal weight bearing. No: Esdras's sign - Neurological Neuro grossly intact: Yes Cognition: Normal Orientation: AAOx4 [place] Coma Scale Eye Opening: Spontaneous Jasmin Coma Scale Verbal: Oriented [place] Coma Scale Motor: Obeys Commands [place] Coma Scale Total: 15 Speech: Normal Motor strength normal: LUE, RUE, LLE, RLE Sensory: Normal - Psychological Associated symptoms: Circumferential speech, Other - Not suicidal or homicidal. Not obviously delusional or hallucinating - Skin Skin Temperature: Warm Skin Moisture: Dry Skin Color: Normal Course - Re-evaluation Re-evalutation: 02/16/20 13:59 Patient is asymptomatic. For poison control and patient encounter very low risk for any communicable disease transmission. Discussed with patient if he so desires he may trap the rat and take it for testing at the repacker or animal control centers. Advised to follow-up with his regular doctor as needed. Told him to follow-up here with any new or worsening symptoms. He verbalized understood and agreed. - Vital Signs Vital signs: Temp Pulse Resp BP Pulse Ox 98.9 F 73 16 120/70 97 02/16/20 11:02 02/16/20 11:02 02/16/20 11:02 02/16/20 11:02 02/16/20 11:02 Discharge - Discharge Clinical Impression: General medical exam Condition: Stable Disposition: HOME, SELF-CARE Instructions: Normal Exam and Workup ([facility]) Additional Instructions: Please follow-up with your regular healthcare provider as needed. Return here or any ER with any new or worsening symptoms. If you so desire you may trap the animal and take it to either animal control or a repacker for evaluation. Referrals: GIANCARLO CHANCE MD [Primary Care Provider] - Follow up as needed
== END 2020-02-16 13:58 | disposition home or self-care (01) ==
LOC: ER 10:41
DX: Z00.00 Encounter for general adult medical examination without abnormal findings (principal); R21 Rash and other nonspecific skin eruption; J45.909 Unspecified asthma, uncomplicated
CPT/HCPCS: 99283

== ENCOUNTER 2020-02-16 21:07 | Emergency (ER) | payer MEDICAID ==
[2020-02-17] MEDS ORDERED: TETRACAINE HCL 0.5% OPH SOLN 4 ML OD ONE (00:11)
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
[2020-02-17 02:56] VITALS: BP 113/78
== END 2020-02-17 02:50 | disposition home or self-care (01) ==
LOC: ER 21:07
DX: H57.11 Ocular pain, right eye (principal); M25.50 Pain in unspecified joint; D57.1 Sickle-cell disease without crisis; W22.8XXA Striking against or struck by other objects, initial encounter
CPT/HCPCS: 99283

== ENCOUNTER 2020-02-17 12:59 | Emergency (ER) | payer MEDICAID ==
[2020-02-17] MEDS ORDERED: MAG HYDROX/AL HYDROX/SIMETH SUSP 30 ML UDCUP PO ONE (13:43)
[2020-02-17] MEDS ORDERED: METOCLOPRAMIDE HCL ORAL SOLN 10 MG/10 ML UDCUP PO ONE (13:43)
[2020-02-17] MEDS ORDERED: LIDOCAINE 2% VISCOUS SOLN 15 ML UDCUP PO ONE (13:43)
[2020-02-17 14:12] LABS: ABSOLUTE BASOPHILS # (AUTO) 0.1 10^3/uL (0.0-0.2); ABSOLUTE EOSINOPHILS # (AUTO) 0.4 10^3/uL (0.0-0.6); ABSOLUTE MONOCYTES (AUTO) 0.3 10^3/uL (0.1-1.4); ABSOLUTE NEUT (AUTO) 1.8 10^3/uL (1.7-8.2); BASOPHILS % (AUTO) 2.3 % (0-2); EOSINOPHILS % (AUTO) 12.1 % (0-6); HEMATOCRIT 41.5 % (37.9-51.0); HEMOGLOBIN 13.9 g/dL (13.5-17.0); LYMPHOCYTES % (AUTO) 28.7 % (13-45); MEAN CORPUSCULAR HEMOGLOBIN 27.2 pg (27.0-33.4); MEAN CORPUSCULAR HGB CONC 33.4 g/dL (32.0-36.0); MEAN CORPUSCULAR VOLUME 82 fl (80-97); MONOCYTES % (AUTO) 8.3 % (3-13); PLATELET COUNT 201 10^3/uL (150-450); RED BLOOD COUNT 5.09 10^6/uL (4.35-5.55); SEGMENTED NEUTROPHILS % (AUTO) 48.6 % (42-78); TOTAL CELLS COUNTED % (AUTO) 100 %; WHITE BLOOD COUNT 3.6 10^3/uL (4.0-10.5)
--- NOTE | 2020-02-17 14:28 | RADIOLOGY REPORT (SQ) ---
EXAM DESCRIPTION: CHEST 2 VIEWS IMAGES COMPLETED DATE/TIME: 02/17/2020 2:01 pm REASON FOR STUDY: chest pain COMPARISON: Chest x-ray 11/08/2019, 11/09/2019. EXAM PARAMETERS: NUMBER OF VIEWS: two views TECHNIQUE: Digital Frontal and Lateral radiographic views of the chest acquired. RADIATION DOSE: NA LIMITATIONS: none FINDINGS: LUNGS AND PLEURA: No consolidation, pneumothorax or pleural effusion. MEDIASTINUM AND HILAR STRUCTURES: No masses or contour abnormalities. HEART AND VASCULAR STRUCTURES: Heart normal size. No evidence for failure. BONES: No acute findings. HARDWARE: None in the chest. IMPRESSION: NO ACUTE RADIOGRAPHIC FINDING IN THE CHEST. TECHNICAL DOCUMENTATION: JOB ID: [id number] [email or web address]- All Rights Reserved Reading location - IP/workstation name: [email or web address]
[2020-02-17 14:31] LABS: ALBUMIN 4.7 g/dL (3.5-5.0); ALKALINE PHOSPHATASE 69 U/L (38-126); ANION GAP 6 (5-19); ASPARTATE AMINO TRANSFERASE 25 U/L (17-59); BILIRUBIN,TOTAL 1.6 mg/dL (0.2-1.3); BLOOD UREA NITROGEN 19 mg/dL (7-20); CALCIUM 9.6 mg/dL (8.4-10.2); CARBON DIOXIDE 29 mmol/L (22-30); CHLORIDE 104 mmol/L (98-107); CREATINE KINASE 84 U/L (55-170); GLUCOSE 89 mg/dL (75-110); TOTAL PROTEIN 7.5 g/dL (6.3-8.2)
[2020-02-17 16:47] VITALS: BP 108/72
--- NOTE | 2020-02-17 17:45 | ER Document Report ---
ED General - General Chief Complaint: Chest Pressure Stated Complaint: CHEST PRESSURE Time Seen by Provider: 02/17/20 13:35 Primary Care Provider: GIANCARLO CHANCE MD [Primary Care Provider] - Follow up as needed TRAVEL OUTSIDE OF THE [place] IN LAST 30 DAYS: No - HPI Notes: Patient is a 34-year-old male who presents to the emergency department for evaluation of chest pressure. He is a poor historian. He states he got it today. He cannot tell me how long it was there, states that it is not present now. He just thought he should "get checked out." He states he has had pain like this in the past. He states he has a mild shortness of breath with it, but that is not new for him. He denies any associated nausea, diaphoresis, near syncope. - Related Data Allergies/Adverse Reactions: No Known Allergies Allergy (Verified 02/12/20 22:54) Home Medications: Symbicort Past Medical History - General Information source: Patient - Social History Smoking Status: Former Smoker Frequency of alcohol use: None Drug Abuse: None Family History: Reviewed & Not Pertinent Patient has homicidal ideation: No Pulmonary Medical History: Reports: Hx Asthma, Hx Bronchitis GI Medical History: Reports: Hx Gastroesophageal Reflux Disease, Hx Irritable Bowel - Constipation Musculoskeletal Medical History: Reports Hx Arthritis, Reports Hx Musculoskeletal Trauma Psychiatric Medical History: Reports: Hx Anxiety, Hx Bipolar Disorder, Hx Depression, Hx Personality Disorder, Hx Schizoaffective Disorder, Hx Schi zophrenia Traumatic Medical History: Reports: Hx Fractures - Finger fracture Past Surgical History: Reports: Hx Abdominal Surgery, Hx Appendectomy, Hx Cholecystectomy, Hx Orthopedic Surgery - Immunizations Immunizations up to date: Yes Hx Diphtheria, Pertussis, Tetanus Vaccination: Yes - 2012 Hx Pneumococcal Vaccination: 08/23/00 Review of Systems - Review of Systems Cardiovascular: See HPI Respiratory: See HPI -: Yes All other systems reviewed and negative Physical Exam - Vital signs Vitals: Temp Pulse Resp BP Pulse Ox 98.7 F 61 16 112/76 98 02/17/20 13:21 02/17/20 13:21 02/17/20 13:21 02/17/20 13:21 02/17/20 13:21 - Notes Notes: This is a 34-year-old male who appears his stated age, no acute distress. He is anxious in appearance, but is pleasant and calm, cooperative with examiner. Vital signs reviewed, please refer to chart. Head is normocephalic, atraumatic. Pupils equal round, reactive to light. Neck is supple without meningismus. Heart is regular rate and rhythm. Lungs are clear to auscultation bilaterally. Abdomen is soft, nontender, normoactive bowel sounds throughout. Extremities without cyanosis, clubbing. Posterior calves are nontender. Peripheral pulses are equal. Skin is warm and dry. Patient is awake, alert, neurological exam is nonfocal. Course - Re-evaluation Re-evalutation: 02/17/20 17:42 Patient presents to the emergency department for evaluation of chest pain. He is chest pain-free. He had laboratory investigations here which are unremarkable. His chest x-ray is normal per radiology. He has EKG changes which are chronic in nature, consistent with a young -[place] male, and negative troponin. He is asymptomatic at this time. I will send him home with close follow-up. He is to return to the ED with worsening. - Vital Signs Vital signs: Temp Pulse Resp BP Pulse Ox 98.7 F 61 14 108/72 100 02/17/20 13:31 02/17/20 13:21 02/17/20 16:01 02/17/20 16:01 02/17/20 16:01 - Laboratory Result Diagrams: 02/17/20 13:45 02/17/20 13:45 Laboratory results interpreted by me: 02/17/20 02/17/20 13:45 13:45 WBC 3.6 L Eos % (Auto) 12.1 H Baso % (Auto) 2.3 H Total Bilirubin 1.6 H - Diagnostic Test Radiology reviewed: Reports reviewed Radiology results interpreted by me: 02/17/20 17:46 Chest X-Ray 02/17/20 13:43 IMPRESSION: NO ACUTE RADIOGRAPHIC FINDING IN THE CHEST. - EKG Interpretation by Me Additional EKG results interpreted by sc: 02/17/20 17:47 Sinus mechanism with a rate of 57 bpm. Normal axis and intervals. Diffuse ST elevation, J-point elevation, likely early repolarization. No significant change from prior. Discharge - Discharge Clinical Impression: Chest pain Qualifiers: Chest pain type: unspecified Qualified Code(s): R07.9 - Chest pain, unspecified Condition: Stable Disposition: HOME, SELF-CARE Instructions: Chest Pain of Unclear Cause ([facility]) Additional Instructions: No clear cause was found today for your chest pain and tightness. Ear x-rays and blood work were unremarkable. Your EKG is unchanged. Please follow-up with your primary care provider next week. Return to the emergency department with worsening or new concerning symptoms of any sort. Referrals: GIANCARLO CHANCE MD [Primary Care Provider] - Follow up as needed
--- NOTE | 2020-02-17 22:15 | EKG REPORT ---
SEVERITY:- ABNORMAL ECG - SINUS RHYTHM LEFT VENTRICULAR HYPERTROPHY TALL T, CONSIDER METABOLIC/ISCHEMIC ABNRM : Confirmed by: Fernando Delarosa 17-Feb-2020 22:14:11
== END 2020-02-17 18:01 | disposition home or self-care (01) ==
LOC: ER 12:59
DX: R07.9 Chest pain, unspecified (principal)
CPT/HCPCS: 93005; 99285; 36415; 82550; 83735; 85025; 80053; 84484; 71046; 93010; J3490 ×3

== ENCOUNTER 2020-02-19 17:37 | Emergency (ER) | payer MEDICAID ==
--- NOTE | 2020-02-19 18:37 | ER Document Report ---
HPI - HPI Patient complains to provider of: Skin lesions Time Seen by Provider: 02/19/20 18:20 Onset: Other - 2 Days Pain Level: Denies Context: Patient presents with nonpruritic skin lesions for the past 2 days. Patient is uncertain what may have caused them Patient denies any fever or recent illness. Patient states he has been treating skin lesions with topical Neosporin. Associated Symptoms: denies: Nonproductive cough, Productive cough, Fever Exacerbated by: Denies Relieved by: Denies Similar symptoms previously: No Recently seen / treated by doctor: Yes - ROS ROS below otherwise negative: Yes Systems Reviewed and Negative: Yes All other systems reviewed and negative - CONSTITUTIONAL Constitutional: DENIES: Fever, Chills - RESPIRATORY Respiratory: DENIES: Coughing - GASTROINTESTINAL Gastrointestinal: DENIES: Patient vomiting - MUSCULOSKELETAL Musculoskeletal: DENIES: Extremity pain - DERM Skin Color: Normal Notes: skin lesions to legs and left arm Past Medical History - General Information source: Patient - Social History Smoking Status: Never Smoker Frequency of alcohol use: None Drug Abuse: None Occupation: none Lives with: Alone Family History: Reviewed & Not Pertinent Pulmonary Medical History: Reports: Hx Asthma, Hx Bronchitis GI Medical History: Reports: Hx Gastroesophageal Reflux Disease, Hx Irritable Bowel - Constipation Musculoskeletal Medical History: Reports Hx Arthritis, Reports Hx Musculoskeletal Trauma Psychiatric Medical History: Reports: Hx Anxiety, Hx Bipolar Disorder, Hx Depression, Hx Personality Disorder, Hx Schizoaffective Disorder, Hx Schizophrenia Traumatic Medical History: Reports: Hx Fractures - Finger fracture Past Surgical History: Reports: Hx Abdominal Surgery, Hx Appendectomy, Hx Cholecystectomy, Hx Orthopedic Surgery - Immunizations Immunizations up to date: Yes Hx Diphtheria, Pertussis, Tetanus Vaccination: Yes - 2012 Hx Pneumococcal Vaccination: 08/23/00 Vertical Provider Document - CONSTITUTIONAL Agree With Documented VS: Yes Exam Limitations: No Limitations General Appearance: WD/WN, No Apparent Distress - INFECTION CONTROL TRAVEL OUTSIDE OF THE [place] IN LAST 30 DAYS: No - HEENT HEENT: Atraumatic, Normocephalic - NECK Neck: Normal Inspection - RESPIRATORY Respiratory: No Respiratory Distress - BACK Back: Normal Inspection - MUSCULOSKELETAL/EXTREMETIES Musculoskeletal/Extremeties: RIGO MCBRIDE - NEURO Level of Consciousness: Awake, Alert, Appropriate Motor/Sensory: No Motor Deficit - DERM Integumentary: Warm, Dry, Rash - Patient with scattered shallow excoriated lesions that look like excoriated insect bites, no surrounding erythema, no concern for abscess Course - Re-evaluation Re-evalutation: 02/19/20 18:40 Patient with what appears to be excoriated insect bites. Patient states that he does have multiple insects in his house. Patient encouraged to use antibacterial soap and water and apply topical antibiotic ointment. Patient encouraged to follow-up with his primary doctor for recheck. - Vital Signs Vital signs: Temp Pulse Resp BP Pulse Ox 98.9 F 98 14 140/84 H 97 02/19/20 17:40 02/19/20 17:40 02/19/20 17:40 02/19/20 17:40 02/19/20 17:40 Discharge - Discharge Clinical Impression: Rash Condition: Stable Disposition: HOME, SELF-CARE Instructions: Bactroban Ointment ([facility]) Additional Instructions: Return immediately for any new or worsening symptoms Followup with your primary care provider, call tomorrow to make a followup appointment Prescriptions: Mupirocin [Bactroban 2% Ointment 22 gm] 1 applic TP TID #22 gm Referrals: GIANCARLO CHANCE MD [Primary Care Provider] - Follow up as needed
[2020-02-19 18:58] VITALS: BP 133/79
== END 2020-02-19 18:50 | disposition home or self-care (01) ==
LOC: ER 17:37
DX: R21 Rash and other nonspecific skin eruption (principal); J45.909 Unspecified asthma, uncomplicated
CPT/HCPCS: 99282

== ENCOUNTER 2020-02-19 20:33 | Emergency (ER) | payer MEDICAID ==
[2020-02-19 20:59] VITALS: BP 131/78
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
== END 2020-02-19 21:50 | disposition home or self-care (01) ==
LOC: ER 20:33
DX: S80.812A Abrasion, left lower leg, initial encounter (principal); X58.XXXA Exposure to other specified factors, initial encounter; K05.10 Chronic gingivitis, plaque induced; J45.909 Unspecified asthma, uncomplicated
CPT/HCPCS: 99282

== ENCOUNTER 2020-02-20 05:43 | Emergency (ER) | payer MEDICAID ==
[2020-02-20 06:11] VITALS: BP 118/58
--- NOTE | 2020-02-20 08:36 | ER Document Report ---
HPI - HPI Time Seen by Provider: 02/20/20 08:21 Pain Level: 1 Notes: 34-year-old male presents emergency room with a superficial injury to his fourth and fifth interphalangeal space from a mechanical pencil he accidentally poked himself approximately 2 hours ago. Denies any fevers or chills, denies any numbness or tingling to bilateral upper extremities. Tetanus is up-to-date. Eating and drinking without any issues. No active bleeding at all. Has not tried any [id number] medications. Denies fevers, chills, chest pain,palpitations, shortness of breath, dyspnea, nausea, vomiting, diarrhea, abdominal pain, hematuria,blurred vision, double vision, loss of vision, speech changes, LH, dizziness, syncope, headaches, wheezing, ST, URI, neck pain, weakness, bowel or bladder dysfunction, saddle anesthesia, numbness or tingling in bilateral upper or lower extremities equally, muscle paralysis, weakness in bilateral upper or lower extremities equally or rash. MEDICATIONS: I agree with the patient medications as charted by the RN. ALLERGIES: I agree with the allergies as charted by the RN. PAST MEDICAL HISTORY/PAST SURGICAL HISTORY: Reviewed and agree as charted by RN. SOCIAL HISTORY: Reviewed and agree as charted by RN. FAMILY HISTORY: No significant familial comorbid conditions directly related to patient complaint EXAM: Reviewed vital signs as charted by RN. REVIEW OF SYSTEMS:reviewed vital signs by RN CONSTITUTIONAL : Denies fever, chills, or sweats. Denies recent illness. EENT: Denies eye, ear, throat, or mouth pain or symptoms. Denies nasal or sinus congestion or discharge. Denies throat, tongue, or mouth swelling or di fficulty swallowing. CARDIOVASCULAR: Denies chest pain. Denies palpitations or racing or irregular heart beat. Denies ankle edema. RESPIRATORY: Denies cough, cold, or chest congestion. Denies shortness of breath, difficulty breathing, or wheezing. GASTROINTESTINAL: Denies abdominal pain or distention. Denies nausea, vomiting, or diarrhea. Denies blood in vomitus, stools, or per rectum. Denies black, tarry stools. Denies constipation. GENITOURINARY: Denies difficulty urinating, painful urination, burning, frequency, blood in urine, or discharge. MUSCULOSKELETAL: Denies back or neck pain or stiffness. Denies joint pain or swelling. SKIN: Superficial puncture wound to interphalangeal space between his right fourth and fifth digit. denies rash, lesions or sores. HEMATOLOGIC : Denies easy bruising or bleeding. LYMPHATIC: Denies swollen, enlarged glands. NEUROLOGICAL: Denies confusion or altered mental status. Denies passing out or loss of consciousness. Denies dizziness or lightheadedness. Denies headache. Denies weakness or paralysis or loss of use of either side. Denies problems with gait or speech. Denies sensory loss, numbness, or tingling. Denies seizures. PSYCHIATRIC: Denies anxiety or stress. Denies depression, suicidal ideation, or homicidal ideation. ALL OTHER SYSTEMS REVIEWED AND NEGATIVE. Dictation was performed using [employer] recognition software PHYSICAL EXAMINATION: GENERAL: Well-appearing, well-nourished and in no acute distress. HEAD: Atraumatic, normocephalic. EYES: Pupils equal round and reactive to light, extraocular movements intact, sclera anicteric, conjunctiva are normal. ENT: Nares patent, oropharynx clear without exudates. Moist mucous membranes. NECK: Normal range of motion, supple without lymphadenopathy LUNGS: Breath sounds clear to auscultation bilaterally and equal. No wheezes rales or rhonchi. HEART: Regular rate and rhythm without murmurs ABDOMEN: Soft, nontender, nondistended abdomen. No guarding, no rebound. No masses appreciated. Musculoskeletal: Normal range of motion, no pitting or edema. No cyanosis. NEUROLOGICAL: Cranial nerves grossly intact. Normal speech, normal gait. Norm al sensory, motor exams PSYCH: Normal mood, normal affect. SKIN: Warm, Dry, normal turgor, no rashes or lesions noted. Superficial puncture wound to interphalangeal space between his right fourth and fifth digit. no pain to fingers with adduction, adduction, lexion, extension, inversion, eversion or opposition of fingers in right and left hand. Log Check Scaler + 2 BUE equally. Snuffbox tenderness negative on right nand left. radial pulses + 2 BUE equally. Negative kanavels sign. No vascular compromise.No body crepitus or focal area of TTP. Motor and sensory function of ulnar, radial, medial nerves intact bilaterally and equally. strength 5/5 in BUE equally. - REPRODUCTIVE Reproductive: DENIES: : Past Medical History - General Information source: Patient - Social History Smoking Status: Never Smoker Family History: Reviewed & Not Pertinent Patient has homicidal ideation: No Pulmonary Medical History: Reports: Hx Asthma, Hx Bronchitis GI Medical History: Reports: Hx Gastroesophageal Reflux Disease, Hx Irritable Bowel - Constipation Musculoskeletal Medical History: Reports Hx Arthritis, Reports Hx Muscul oskeletal Trauma Psychiatric Medical History: Reports: Hx Anxiety, Hx Bipolar Disorder, Hx Depression, Hx Personality Disorder, Hx Schizoaffective Disorder, Hx Schizophrenia Traumatic Medical History: Reports: Hx Fractures - Finger fracture Past Surgical History: Reports: Hx Abdominal Surgery, Hx Appendectomy, Hx Cholecystectomy, Hx Orthopedic Surgery - Immunizations Immunizations up to date: Yes Hx Diphtheria, Pertussis, Tetanus Vaccination: Yes - 2012 Hx Pneumococcal Vaccination: 08/23/00 Vertical Provider Document - CONSTITUTIONAL Agree With Documented VS: Yes Exam Limitations: No Limitations General Appearance: WD/WN - INFECTION CONTROL TRAVEL OUTSIDE OF THE [place] IN LAST 30 DAYS: No Course - Re-evaluation Re-evalutation: 02/20/20 08:36 Afebrile vital stable no distress. Nurses notes reviewed. Discussed with patient that he has a superficial puncture wound. There is no concern of leg exposures and slight has been removed from mechanical pencils. Advised to monitor for any signs or symptoms of infection such as redness, swelling, drainage. No foreign body seen on exploration of wound. Examination benign. Patient stated that he also wanted some food because he was so worried about his hand he did not get a chance to breakfast this morning. Tetanus is up-to-date, was given to him last year. After performing a Medical Screening Examination, I estimate there is LOW risk for OPEN FRACTURE, COMPARTMENT SYNDROME, TENDON RUPTURE, ACUTE NEUROVASCULAR INJURY, or RETAINED FOREIGN BODY, thus I consider the discharge disposition reasonable. Also, there is no evidence or peritonitis, sepsis, or toxicity. I have reevaluated this patient multiple times and no significant life threatening changes are noted. The patient and I have discussed the diagnosis and risks, and we agree with discharging home with close follow-up with the understanding that symptoms and presentations can change. We also discussed returning to the Emergency Department immediately if new or worsening symptoms occur. We have discussed the symptoms which are most concerning (e.g., changing or worsening pain, fever, numbness, weakness, cool or painful digits) that necessitate immediate return. 02/20/20 08:38 - Vital Signs Vital signs: Temp Pulse Resp BP Pulse Ox 98.7 F 65 18 118/58 L 96 02/20/20 06:11 02/20/20 06:09 02/20/20 06:09 02/20/20 06:09 02/20/20 06:09 Discharge - Discharge Clinical Impression: superficial puncture wound to hand Condition: Stable Disposition: HOME, SELF-CARE Instructions: Puncture Wound ([facility]) Additional Instructions: Wash hands with soap and water twice a day. Monitor area for any signs of infection such as redness, swelling, drainage. Follow-up with PCP as needed. Return immediately for any new or worsening symptoms. Follow up with primary care provider, call tomorrow to make followup appointment. Referrals: GIANCARLO CHANCE MD [Primary Care Provider] - Follow up as needed
== END 2020-02-20 08:41 | disposition home or self-care (01) ==
LOC: ER 05:43
DX: S61.431A Puncture wound without foreign body of right hand, initial encounter (principal); W22.8XXA Striking against or struck by other objects, initial encounter; J45.909 Unspecified asthma, uncomplicated; Z79.899 Other long term (current) drug therapy
CPT/HCPCS: 99283

== ENCOUNTER 2020-02-23 09:29 | Emergency (ER) | payer MEDICAID ==
[2020-02-23 09:34] VITALS: BP 125/76
--- NOTE | 2020-02-23 10:39 | ER Document Report ---
HPI - HPI Time Seen by Provider: 02/23/20 10:25 Notes: 34-year-old male presents to the emergency room for concern that he has a "weird breathing pattern at night". Patient wants a sleep study done. Denies any recent COVID exposures, has been wearing his mask anytime he is around other people or when he cannot socially distance. Denies fevers, chills, chest pain,palpitations, shortness of breath, dyspnea, difficulty breathing, nausea, vomiting, diarrhea, abdominal pain, hematuria,blurred vision, double vision, loss of vision, speech changes, LH, dizziness, syncope, headaches, wheezing, ST, URI, neck pain, weakness, bowel or bladder dysfunction, saddle anesthesia, numbness or tingling in bilateral upper or lower extremities equally, muscle paralysis, weakness in bilateral upper or lower extremities equally or rash. Denies IV drug use. Patient states he is not having an asthma exacerbation, does not need refill on his pro air inhaler. MEDICATIONS: I agree with the patient medications as charted by the RN. ALLERGIES: I agree with the allergies as charted by the RN. PAST MEDICAL HISTORY/PAST SURGICAL HISTORY: Reviewed and agree as charted by RN. SOCIAL HISTORY: Reviewed and agree as charted by RN. FAMILY HISTORY: No significant familial comorbid conditions directly related to patient complaint EXAM: Reviewed vital signs as charted by RN. REVIEW OF SYSTEMS:reviewed vital signs by RN CONSTITUTIONAL : Denies fever, chills, or sweats. Denies recent illness. EENT: Denies eye, ear, throat, or mouth pain or symptoms. Denies nasal or sinus congestion or discharge. Denies throat, tongue, or mouth swelling or difficulty swallowing. CARDIOVASCULAR: Denies chest pain. Denies palpitations or racing or irregular heart beat. Denies ankle edema. RESPIRATORY: Denies cough, cold, or chest congestion. Denies shortness of breath, difficulty breathing, or wheezing. GASTROINTESTINAL: Denies abdominal pain or distention. Denies nausea, vomiting, or diarrhea. Denies blood in vomitus, stools, or per rectum. Denies black, tarry stools. Denies constipation. GENITOURINARY: Denies difficulty urinating, painful urination, burning, frequency, blood in urine, or discharge. MUSCULOSKELETAL: Denies back or neck pain or stiffness. Denies joint pain or swelling. SKIN: Denies rash, lesions or sores. HEMATOLOGIC : Denies easy bruising or bleeding. LYMPHATIC: Denies swollen, enlarged glands. NEUROLOGICAL: Denies confusion or altered mental status. Denies passing out or loss of consciousness. Denies dizziness or lightheadedness. Denies headache. Denies weakness or paralysis or loss of use of either side. Denies problems with gait or speech. Denies sensory loss, numbness, or tingling. Denies seizures. PSYCHIATRIC: Denies anxiety or stress. Denies depression, suicidal ideation, or homicidal ideation. ALL OTHER SYSTEMS REVIEWED AND NEGATIVE. Dictation was performed using [employer] voice recognition software PHYSICAL EXAMINATION: GENERAL: Well-appearing, well-nourished and in no acute distress. HEAD: Atraumatic, normocephalic. EYES: Pupils equal round and reactive to light, extraocular movements intact, sclera anicteric, conjunctiva are normal. ENT: Nares patent, oropharynx clear without exudates. Moist mucous membranes. NECK: Normal range of motion, supple without lymphadenopathy LUNGS: Breath sounds clear to auscultation bilaterally and equal. No wheezes rales or rhonchi. HEART: Regular rate and rhythm without murmurs ABDOMEN: Soft, nontender, nondistended abdomen. No guarding, no rebound. No masses appreciated. Musculoskeletal: Normal range of motion, no pitting or edema. No cyanosis. NEUROLOGICAL: Cranial nerves grossly intact. Normal speech, normal gait. Normal sensory, motor exams PSYCH: Normal mood, normal affect. SKIN: Warm, Dry, normal turgor, no rashes or lesions noted. - REPRODUCTIVE Reproductive: DENIES: : Past Medical History - General Information source: Patient - Social History Smoking Status: Unknown if Ever Smoked Family History: Reviewed & Not Pertinent Pulmonary Medical History: Reports: Hx Asthma, Hx Bronchitis GI Medical History: Reports: Hx Gastroesophageal Reflux Disease, Hx Irritable Bowel - Constipation Musculoskeletal Medical History: Reports Hx Arthritis, Reports Hx Musculoskeletal Trauma Psychiatric Medical History: Reports: Hx Anxiety, Hx Bipolar Disorder, Hx Depression, Hx Personality Disorder, Hx Schizoaffective Disorder, Hx Schizophrenia Traumatic Medical History: Reports: Hx Fractures - Finger fracture Past Surgical History: Reports: Hx Abdominal Surgery, Hx Appendectomy, Hx Cholecystectomy, Hx Orthopedic Surgery - Immunizations Immunizations up to date: Yes Hx Diphtheria, Pertussis, Tetanus Vaccination: Yes - 2013 Hx Pneumococcal Vaccination: 08/23/00 Vertical Provider Document - CONSTITUTIONAL Agree With Documented VS: Yes Exam Limitations: No Limitations General Appearance: WD/WN - INFECTION CONTROL TRAVEL OUTSIDE OF THE [place] IN LAST 30 DAYS: No Course - Re-evaluation Re-evalutation: 02/23/20 10:37 Afebrile vital stable no distress. On reevaluation of his vitals, his pulse ox was 98% on room air, lungs are clear to auscultation, heart rate S1-S2 regular, no murmurs noted. Heart rate slightly bradycardic at 58bpm. No rales rhonchi wheezes noted on auscultation of lungs. Discussed with patient that the emergency room is not able to set him up for a sleep study since we do not have that capability in the emergency room, that he will need to see his primary care provider to set him up for a sleep study. Patient denies any other complaints besides having a "weird breathing pattern sometimes at night" but states that he thinks this happens to a lot of other people. Patient was comfortable with contacting Dr. Chance, his PCP, to initiate the process of getting him set up for sleep study. After performing a Medical Screening Examination, I estimate there is LOW risk for RUPTURED ESOPHAGUS, PNEUMOTHORAX, PULMONARY EMBOLISM, ACUTE CORONARY SYNDROME, OR THORACIC AORTIC DISSECTION, thus I consider the discharge disposition reasonable. I have reevaluated this patient multiple times and no significant life threatening changes are noted. The patient and I have discussed the diagnosis and risks, and we agree with discharging home with close follow-up. We also discussed returning to the Emergency Department immediately if new or worsening symptoms occur. We have discussed the symptoms which are most concerning (e.g., bloody sputum, worsening pain or shortness of breath) that necessitate immediate return. - Vital Signs Vital signs: Temp Pulse Resp BP Pulse Ox 98.7 F 66 16 125/76 96 02/23/20 09:33 02/23/20 09:33 02/23/20 09:33 02/23/20 09:33 02/23/20 09:33 Discharge - Discharge Clinical Impression: Breathing easily Condition: Stable Disposition: HOME, SELF-CARE Additional Instructions: Please see your doctor for your request for sleep study as we cannot do a sleep study in the emergency room. Your lungs today were perfectly clear, your pulse oxygenation was normal. Your vitals were normal today. Please follow-up with your primary care doctor Return immediately for any new or worsening symptoms. Follow up with primary care provider, call tomorrow to make followup appointment. Referrals: GIANCARLO CHANCE MD [Primary Care Provider] - Follow up as needed
== END 2020-02-23 10:41 | disposition home or self-care (01) ==
LOC: ER 09:29
DX: R09.89 Other specified symptoms and signs involving the circulatory and respiratory systems (principal); J45.909 Unspecified asthma, uncomplicated
CPT/HCPCS: 99283

== ENCOUNTER 2020-02-24 12:53 | Emergency (ER) | payer MEDICAID ==
[2020-02-24 13:01] VITALS: BP 105/71
--- NOTE | 2020-02-24 14:16 | ER Document Report ---
HPI - HPI Patient complains to provider of: Concerned about wearing mask Time Seen by Provider: 02/24/20 14:10 Onset: Other - Patient states Efrain told him that it was dangerous to wear mask outside Quality of pain: No pain Severity: None Pain Level: Denies Context: Patient came to the ER today for concerned that he might from wearing his mask wire while outside. He states that Efrain came to him and told him that he could get common monoxide from wearing his mask while outside doing activities. I have explained to him that he is supposed to wear his mask outside if he is within 6 feet of other people or he could take it off if he was more than 6 feet from other people. Associated Symptoms: Other Exacerbated by: Denies Relieved by: Denies Similar symptoms previously: Yes Recently seen / treated by doctor: Yes - ROS ROS below otherwise negative: Yes - CONSTITUTIONAL Constitutional: DENIES: Fever, Chills - EENT EENT: DENIES: Sore Throat, Ear Pain, Nasal Drainage-Clear, Nasal Drainage- Purulent, Congestion, Eye problems - NEURO Neurology: DENIES: Headache, Weakness, Vision blurred, Dizzinesss / Vertigo - CARDIOVASCULAR Cardiovascular: DENIES: Chest pain - RESPIRATORY Respiratory: DENIES: Trouble Breathing, Coughing - GASTROINTESTINAL Gastrointestinal: DENIES: Abdominal Pain, Nausea, Patient vomiting, Diarrhea, Constipation, Black / Bloody Stools - URINARY Urinary: DENIES: Dysuria, Urgency, Frequency - REPRODUCTIVE Reproductive: DENIES: :, Postmenopausal, Abnormal bleeding / discharge - MUSCULOSKELETAL Musculoskeletal: DENIES: Extremity pain, Back Pain, Neck Pain, Swelling - DERM Skin Color: Normal Skin Problems: None Past Medical History - General Information source: Patient - Social History Smoking Status: Never Smoker Frequency of alcohol use: None Drug Abuse: None Family History: Reviewed & Not Pertinent Patient has suicidal ideation: No Patient has homicidal ideation: No - Past Medical History Cardiac Medical History: Reports: None Pulmonary Medical History: Reports: Hx Asthma, Hx Bronchitis EENT Medical History: Reports: None Neurological Medical History: Reports: None Endocrine Medical History: Reports: None Renal/ Medical History: Reports: None Malignancy Medical History: Reports None GI Medical History: Reports: Hx Gastroesophageal Reflux Disease, Hx Irritable Bowel - Constipation Musculoskeletal Medical History: Reports Hx Arthritis, Reports Hx Musculoskeletal Trauma Skin Medical History: Reports None Psychiatric Medical History: Reports: Hx Anxiety, Hx Bipolar Disorder, Hx Depression, Hx Personality Disorder, Hx Schizoaffective Disorder, Hx Schizophrenia Traumatic Medical History: Reports: Hx Fractures - Finger fracture Infectious Medical History: Reports: None Past Surgical History: Reports: Hx Abdominal Surgery, Hx Appendectomy, Hx Cholecystectomy, Hx Orthopedic Surgery - Immunizations Immunizations up to date: Yes Hx Diphtheria, Pertussis, Tetanus Vaccination: Yes - 2012 Hx Pneumococcal Vaccination: 08/23/00 Vertical Provider Document - CONSTITUTIONAL Agree With Documented VS: Yes Exam Limitations: No Limitations General Appearance: WD/WN, No Apparent Distress - INFECTION CONTROL TRAVEL OUTSIDE OF THE [place] IN LAST 30 DAYS: No - HEENT HEENT: Atraumatic, Normal ENT Exam, Normocephalic, PERRLA - NECK Neck: Normal Inspection, Supple - RESPIRATORY Respiratory: Breath Sounds Normal, No Respiratory Distress - CARDIOVASCULAR Cardiovascular: Regular Rate, Regular Rhythm, No Murmur - MUSCULOSKELETAL/EXTREMETIES Musculoskeletal/Extremeties: MAEW, FROM, Non-Tender - NEURO Level of Consciousness: Awake, Alert Deep Tendon Reflexes: 2+ - DERM Integumentary: Warm, Dry, No Rash Course - Vital Signs Vital signs: Temp Pulse Resp BP Pulse Ox 97.4 F 92 16 105/71 98 02/24/20 12:58 02/24/20 12:58 02/24/20 12:58 02/24/20 12:58 02/24/20 14:02 Discharge - Discharge Clinical Impression: Concerned about wearing mask Condition: Stable Disposition: HOME, SELF-CARE Additional Instructions: You were seen today for concern about wearing a mask outside. The mask will not hurt you wearing it outside it will do no damage to you were noted outside. You do not have to wear the mask and as you were within 6 feet of another person when you are outside when you are inside and you are in a public place or around other people you should be wearing it. FOLLOW-UP CARE: If you have been referred to a physician for follow-up care, call the physicians office for an appointment as you were instructed or within the next two days. If you experience worsening or a significant change in your symptoms, notify the physician immediately or return to the Emergency Department at any time for re-evaluation. Referrals: GIANCARLO CHANCE MD [Primary Care Provider] - Follow up as needed
== END 2020-02-24 14:29 | disposition home or self-care (01) ==
LOC: ER 12:53
DX: Z76.89 Persons encountering health services in other specified circumstances (principal)
CPT/HCPCS: 99283

== ENCOUNTER 2020-02-25 06:55 | Emergency (ER) | payer MEDICAID ==
[2020-02-25 07:04] VITALS: BP 110/72
--- NOTE | 2020-02-25 09:49 | ER Document Report ---
HPI - HPI Patient complains to provider of: Rash Time Seen by Provider: 02/25/20 09:22 Onset: This morning Onset/Duration: Gradual Pain Level: Denies Context: Patient presents with nonpruritic erythematous skin lesion to the anterior left lower leg that he noticed today. Area is nonpainful. Patient was concerned about possible insect bite. Associated Symptoms: denies: Fever, Headache Exacerbated by: Denies Relieved by: Denies Similar symptoms previously: No Recently seen / treated by doctor: Yes - ROS ROS below otherwise negative: Yes Systems Reviewed and Negative: Yes All other systems reviewed and negative - CONSTITUTIONAL Constitutional: DENIES: Fever, Chills - NEURO Neurology: DENIES: Headache - RESPIRATORY Respiratory: DENIES: Trouble Breathing, Coughing - GASTROINTESTINAL Gastrointestinal: DENIES: Nausea - MUSCULOSKELETAL Musculoskeletal: DENIES: Extremity pain - DERM Skin Color: Normal Skin Problems: Rash Past Medical History - General Information source: Patient - Social History Smoking Status: Never Smoker Chew tobacco use (# tins/day): No Frequency of alcohol use: None Drug Abuse: None Occupation: none Lives with: Alone Family History: Reviewed & Not Pertinent Patient has homicidal ideation: No Pulmonary Medical History: Reports: Hx Asthma, Hx Bronchitis GI Medical History: Reports: Hx Gastroesophageal Reflux Disease, Hx Irritable Bowel - Constipation Musculoskeletal Medical History: Reports Hx Arthritis, Reports Hx Musculoskeletal Trauma Psychiatric Medical History: Reports: Hx Anxiety, Hx Bipolar Disorder, Hx Depression, Hx Personality Disorder, Hx Schizoaffective Disorder, Hx Schizophrenia Traumatic Medical History: Reports: Hx Fractures - Finger fracture Past Surgical History: Reports: Hx Abdominal Surgery, Hx Appendectomy, Hx Cholecystectomy, Hx Orthopedic Surgery - Immunizations Immunizations up to date: Yes Hx Diphtheria, Pertussis, Tetanus Vaccination: Yes - 2012 Hx Pneumococcal Vaccination: 08/23/00 Vertical Provider Document - CONSTITUTIONAL Agree With Documented VS: Yes Exam Limitations: No Limitations General Appearance: WD/WN, No Apparent Distress Notes: PHYSICAL EXAMINATION: GENERAL: Well-appearing and in no acute distress. HEAD: Atraumatic, normocephalic. EYES: sclera anicteric, conjunctiva are normal. ENT: nares patent. Moist mucous membranes. NECK: Normal range of motion, supple without lymphadenopathy LUNGS: CTAB and equal. No wheezes rales or rhonchi. HEART: Regular rate and rhythm without murmurs EXTREMITIES: Normal range of motion, no pitting edema. 2 erythematous macular lesions, 1 raised erythematous lesion that is mildly indurated, no fluctuance, no lymphangitis NEUROLOGICAL: Cranial nerves grossly intact. Normal speech. Normal gait. PSYCH: Normal mood, normal affect. SKIN: Warm, Dry, normal turgor, see above - INFECTION CONTROL TRAVEL OUTSIDE OF THE [place] IN LAST 30 DAYS: No Course - Re-evaluation Re-evalutation: 02/25/20 09:47 Patient with erythematous lesion that is worrisome for possible insect bite, no concern for abscess, no fluctuance at this time. Good return precautions discussed with patient. - Vital Signs Vital signs: Temp Pulse Resp BP Pulse Ox 98.5 F 76 18 110/72 94 02/25/20 07:00 02/25/20 07:00 02/25/20 07:00 02/25/20 07:00 02/25/20 07:00 Discharge - Discharge Clinical Impression: Insect bite Qualifiers: Encounter type: initial encounter Site of insect bite: lower leg Laterality: left Qualified Code(s): S80.862A - Insect bite (nonvenomous), left lower leg, initial encounter Condition: Stable Disposition: HOME, SELF-CARE Instructions: Insect Bites ([facility]) Additional Instructions: Return immediately for any new or worsening symptoms Followup with your primary care provider, call tomorrow to make a followup appointment You may use topical hydrocortisone cream to the insect bites to the leg Referrals: GIANCARLO CHANCE MD [Primary Care Provider] - Follow up as needed
== END 2020-02-25 10:04 | disposition home or self-care (01) ==
LOC: ER 06:55
DX: S80.862A Insect bite (nonvenomous), left lower leg, initial encounter (principal); W57.XXXA Bitten or stung by nonvenomous insect and other nonvenomous arthropods, initial encounter; J45.909 Unspecified asthma, uncomplicated
CPT/HCPCS: 99282

== ENCOUNTER 2020-02-25 10:29 | Emergency (ER) | payer MEDICAID ==
[2020-02-25 10:35] VITALS: BP 119/58
== END 2020-02-25 10:35 | disposition left against medical advice (07) ==
LOC: ER 10:29
DX: Z53.21 Procedure and treatment not carried out due to patient leaving prior to being seen by health care provider (principal)

== ENCOUNTER 2020-02-26 12:10 | Emergency (ER) | payer MEDICAID ==
[2020-02-26 12:17] VITALS: BP 136/86
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
== END 2020-02-26 13:06 | disposition home or self-care (01) ==
LOC: ER 12:10
DX: T75.89XA Other specified effects of external causes, initial encounter (principal); H57.12 Ocular pain, left eye; J34.89 Other specified disorders of nose and nasal sinuses; R51 Headache; X58.XXXA Exposure to other specified factors, initial encounter; J45.909 Unspecified asthma, uncomplicated
CPT/HCPCS: 99283

== ENCOUNTER 2020-02-27 09:01 | Emergency (ER) | payer MEDICAID ==
[2020-02-27 09:05] VITALS: BP 103/63
--- NOTE | 2020-02-27 10:22 | ER Document Report ---
ED GI/ - General Chief Complaint: Abdominal Pain Stated Complaint: UPPER ABDOMINAL PAIN Time Seen by Provider: 02/27/20 10:13 Primary Care Provider: GIANCARLO CHANCE MD [Primary Care Provider] - Follow up as needed Mode of Arrival: Ambulatory Information source: Patient Notes: 34-year-old male presents to ED for a little heavy feeling in his throat. He does not have any trouble swallowing. He states he sometimes gets gas and it makes him feel heavy in his throat. He states he had some abdominal pain earlier but that is gone. He states he coughed 1 time but is not coughing now. He stated he would like a popsicle before he goes. We will give him a popsicle before he goes. Patient is alert oriented respirations regular nonlabored speaking in full sentences. TRAVEL OUTSIDE OF THE [place] IN LAST 30 DAYS: No - Related Data Allergies/Adverse Reactions: No Known Allergies Allergy (Verified 02/27/20 10:13) Home Medications: Symbicort Past Medical History - General Information source: Patient - Social History Smoking Status: Never Smoker Frequency of alcohol use: None Drug Abuse: None Lives with: Homeless Family History: Reviewed & Not Pertinent Patient has suicidal ideation: No Patient has homicidal ideation: No - Past Medical History Cardiac Medical History: Reports: None Pulmonary Medical History: Reports: Hx Asthma, Hx Bronchitis EENT Medical History: Reports: None Neurological Medical History: Reports: None Endocrine Medical History: Reports: None Renal/ Medical History: Reports: None Malignancy Medical History: Reports None GI Medical History: Reports: Hx Gastroesophageal Reflux Disease, Hx Irritable Bowel - Constipation Musculoskeletal Medical History: Reports Hx Arthritis, Reports Hx Musculoskeletal Trauma Skin Medical History: Reports None Psychiatric Medical History: Reports: Hx Anxiety, Hx Bipolar Disorder, Hx Depression, Hx Personality Disorder, Hx Schizoaffective Disorder, Hx Janene izophrenia Traumatic Medical History: Reports: Hx Fractures - Finger fracture Infectious Medical History: Reports: None Past Surgical History: Reports: Hx Abdominal Surgery, Hx Appendectomy, Hx Cholecystectomy, Hx Orthopedic Surgery - Immunizations Immunizations up to date: Yes Hx Diphtheria, Pertussis, Tetanus Vaccination: Yes - 2012 Hx Pneumococcal Vaccination: 08/23/00 Review of Systems - Review of Systems Constitutional: No symptoms reported EENT: No symptoms reported Cardiovascular: No symptoms reported Respiratory: No symptoms reported Gastrointestinal: Other - Indigestion with a little abdominal pain earlier then bubble gas up to his throat now no pain. Genitourinary: No symptoms reported Male Genitourinary: No symptoms reported Musculoskeletal: No symptoms reported Skin: No symptoms reported Hematologic/Lymphatic: No symptoms reported Neurological/Psychological: No symptoms reported -: Yes All other systems reviewed and negative Physical Exam - Vital signs Vitals: Temp Pulse Resp BP Pulse Ox 99.0 F 60 16 103/63 98 02/27/20 09:04 02/27/20 09:04 02/27/20 09:04 02/27/20 09:04 02/27/20 09:04 Interpretation: Normal - General General appearance: Appears well, Alert - HEENT Head: Normocephalic, Atraumatic Eyes: Normal Pupils: PERRL - Respiratory Respiratory status: No respiratory distress Chest status: Nontender Breath sounds: Normal Chest palpation: Normal - Cardiovascular Rhythm: Regular Heart sounds: Normal auscultation Murmur: No - Abdominal Inspection: Normal Distension: No distension Bowel sounds: Normal Tenderness: Nontender. No: Tender Organomegaly: No organomegaly - Back Back: Normal, Nontender - Extremities General upper extremity: Normal inspection, Nontender, Normal color, Normal ROM, Normal temperature General lower extremity: Normal inspection, Nontender, Normal color, Normal ROM, Normal temperature, Normal weight bearing. No: Esdras's sign - Neurological Neuro grossly intact: Yes Cognition: Normal Orientation: AAOx4 [place] Coma Scale Eye Opening: Spontaneous Jasmin Coma Scale Verbal: Oriented Jasmin Coma Scale Motor: Obeys Commands Paris Coma Scale Total: 15 Speech: Normal Motor strength normal: LUE, RUE, LLE, RLE Sensory: Normal - Psychological Associated symptoms: Normal affect, Normal mood - Skin Skin Temperature: Warm Skin Moisture: Dry Skin Color: Normal Course - Re-evaluation Re-evalutation: 02/27/20 10:21 Patient states he had a little heaviness in his throat earlier but he does not have it now he had a little bit of gas pain earlier but that is all relieved he states he coughed 1 time earlier today but none since then. He is alert oriented respirations regular nonlabored speaking in full sentences. He is able to drink his water with no difficulty. He states he would like an ice pack. We did give him an ice pack before discharging him. - Vital Signs Vital signs: Temp Pulse Resp BP Pulse Ox 99.0 F 60 16 103/63 98 02/27/20 09:04 02/27/20 09:04 02/27/20 09:04 02/27/20 09:04 02/27/20 09:04 Discharge - Discharge Clinical Impression: Acid indigestion Condition: Stable Disposition: HOME, SELF-CARE Additional Instructions: You were seen today for indigestion with some pressure in your throat from indigestion. You stated you had abdominal pain earlier a cough earlier but no cough or abdominal pain. We have given you a popsicle to help to soothe the throat. These call your primary care doctor for follow-up for your indigestion and probably put you on some medication. FOLLOW-UP CARE: If you have been referred to a physician for follow-up care, call the physicians office for an appointment as you were instructed or within the next two days. If you experience worsening or a significant change in your symptoms, notify the physician immediately or return to the Emergency Department at any time for re-evaluation. Referrals: GIANCARLO CHANCE MD [Primary Care Provider] - Follow up in 3-5 days
== END 2020-02-27 10:22 | disposition home or self-care (01) ==
LOC: ER 09:01
DX: K30 Functional dyspepsia (principal); Z59.0 Homelessness; Z90.49 Acquired absence of other specified parts of digestive tract; Z87.19 Personal history of other diseases of the digestive system
CPT/HCPCS: 99283

== ENCOUNTER 2020-02-28 18:53 | Emergency (ER) | payer MEDICAID ==
[2020-02-28 19:06] VITALS: BP 124/75
--- NOTE | 2020-02-28 21:37 | ER Document Report ---
HPI - HPI Time Seen by Provider: 02/28/20 20:09 Pain Level: Denies Notes: 34-year-old male presents emergency room today for complaints stating he had a black stool today. Denies any history of upper or lower GI bleeds, has never had a colonoscopy. Patient is not having any abdominal pain, no fevers or chills. Denies any bright red blood in stool. States he had a normal formed bowel movement today . Denies eating any red meat recently or iron rich foods. Denies fevers, chills, chest pain,palpitations, shortness of breath, dyspnea, nausea, vomiting, diarrhea, abdominal pain, hematuria,LH, dizziness, syncope, headaches, wheezing, ST, URI, neck pain, weakness, bowel or bladder dysfunction, saddle anesthesia, numbness or tingling in bilateral upper or lower extremities equally, muscle paralysis, weakness in bilateral upper or lower extremities equally or rash. MEDICATIONS: I agree with the patient medications as charted by the RN. ALLERGIES: I agree with the allergies as charted by the RN. PAST MEDICAL HISTORY/PAST SURGICAL HISTORY: Reviewed and agree as charted by RN. SOCIAL HISTORY: Reviewed and agree as charted by RN. FAMILY HISTORY: No significant familial comorbid conditions directly related to patient complaint EXAM: Reviewed vital signs as charted by RN. REVIEW OF SYSTEMS:reviewed vital signs by RN CONSTITUTIONAL : Denies fever, chills, or sweats. Denies recent illness. EENT: Denies eye, ear, throat, or mouth pain or symptoms. Denies nasal or sinus congestion or discharge. Denies throat, tongue, or mouth swelling or difficulty swallowing. CARDIOVASCULAR: Denies chest pain. Denies palpitations or racing or irregular heart beat. Denies ankle edema. RESPIRATORY: Denies cough, cold, or chest congestion. Denies shortness of breath, difficulty breathing, or wheezing. GASTROINTESTINAL: Denies abdominal pain or distention. Denies nausea, vomiting, or diarrhea. Denies blood in vomitus, stools, or per rectum. Denies black, tarry stools. Denies constipation. GENITOURINARY: Denies difficulty urinating, painful urination, burning, frequency, blood in urine, or discharge. MUSCULOSKELETAL: Denies back or neck pain or stiffness. Denies joint pain or swelling. SKIN: Denies rash, lesions or sores. HEMATOLOGIC : Denies easy bruising or bleeding. LYMPHATIC: Denies swollen, enlarged glands. NEUROLOGICAL: Denies confusion or altered mental status. Denies passing out or loss of consciousness. Denies dizziness or lightheadedness. Denies headache. Denies weakness or paralysis or loss of use of either side. Denies problems with gait or speech. Denies sensory loss, numbness, or tingling. Denies seizures. PSYCHIATRIC: Denies anxiety or stress. Denies depression, suicidal ideation, or homicidal ideation. ALL OTHER SYSTEMS REVIEWED AND NEGATIVE. Dictation was performed using [employer] voice recognition software PHYSICAL EXAMINATION: GENERAL: Well-appearing, well-nourished and in no acute distress. HEAD: Atraumatic, normocephalic. EYES: Pupils equal round and reactive to light, extraocular movements intact, sclera anicteric, conjunctiva are normal. ENT: Nares patent, oropharynx clear without exudates. Moist mucous membranes. NECK: Normal range of motion, supple without lymphadenopathy LUNGS: Breath sounds clear to auscultation bilaterally and equal. No wheezes rales or rhonchi. HEART: Regular rate and rhythm without murmurs ABDOMEN: Soft, nontender, nondistended abdomen. No guarding, no rebound. No masses appreciated. Musculoskeletal: Normal range of motion, no pitting or edema. No cyanosis. NEUROLOGICAL: Cranial nerves grossly intact. Normal speech, normal gait. Normal sensory, motor exams PSYCH: Normal mood, normal affect. SKIN: Warm, Dry, normal turgor, no rashes or lesions noted. - REPRODUCTIVE Reproductive: DENIES: : Past Medical History - General Information source: Patient - Social History Smoking Status: Former Smoker Chew tobacco use (# tins/day): No Frequency of alcohol use: Rare Drug Abuse: None Family History: Reviewed & Not Pertinent Patient has homicidal ideation: No Pulmonary Medical History: Reports: Hx Asthma, Hx Bronchitis GI Medical History: Reports: Hx Gastroesophageal Reflux Disease, Hx Irritable Bowel - Constipation Musculoskeletal Medical History: Reports Hx Arthritis, Reports Hx Musculoskeletal Trauma Psychiatric Medical History: Reports: Hx Anxiety, Hx Bipolar Disorder, Hx Depression, Hx Personality Disorder, Hx Schizoaffective Disorder, Hx Schizophrenia Traumatic Medical History: Reports: Hx Fractures - Finger fracture Past Surgical History: Reports: Hx Abdominal Surgery, Hx Appendectomy, Hx Cholecystectomy, Hx Orthopedic Surgery - Immunizations Immunizations up to date: Yes Hx Diphtheria, Pertussis, Tetanus Vaccination: Yes - 2012 Hx Pneumococcal Vaccination: 08/23/00 Vertical Provider Document - CONSTITUTIONAL Agree With Documented VS: Yes Exam Limitations: No Limitations General Appearance: WD/WN - INFECTION CONTROL TRAVEL OUTSIDE OF THE [place] IN LAST 30 DAYS: No Course - Re-evaluation Re-evalutation: 02/28/20 21:37 Afebrile vital stable no distress. Nurses notes reviewed. Guaiac stool negative. Patient not complaining of any abdominal pain, nausea vomiting diarrhea, chest pain, shortness of breath, afebrile. Discussed with patient that you can have variance of black stool if you do have an iron rich diet. Advised him to continue to monitor, return to the emergency room if experiencing any abdominal pain, continually having black tarry stool with abdominal pain. He does need to follow-up with her primary care provider and travel specialist within the next 24 to 48 hours. Referral will be provided. After performing a Medical Screening Examination, I estimate there is LOW risk for ACUTE APPENDICITIS, BOWEL OBSTRUCTION, ACUTE CHOLECYSTITIS, PERFORATED DIVERTICULITIS, INCARCERATED HERNIA, PANCREATITIS, TESTICULAR TORSION or PERFORATED ULCER, thus I consider the discharge disposition reasonable. Also, there is no evidence or peritonitis, sepsis, or toxicity. I have reevaluated this patient multiple times and no significant life threatening changes are noted. The patient and I have discussed the diagnosis and risks, and we agree with discharging home with close follow-up with the understanding that symptoms and presentations can change. We also discussed returning to the Emergency Department immediately if new or worsening symptoms occur. We have discussed the symptoms which are most concerning (e.g., bloody stool, fever, changing or worsening pain, intractable vomiting - standard verbal up date) that necessitate immediate return. - Vital Signs Vital signs: Temp Pulse Resp BP Pulse Ox 99.4 F 69 18 124/75 100 02/28/20 19:05 02/28/20 19:05 02/28/20 19:05 02/28/20 19:05 02/28/20 19:05 Discharge - Discharge Clinical Impression: evaluation for blood in stool Condition: Stable Disposition: HOME, SELF-CARE Additional Instructions: Your guaiac stool today was negative for occult blood. Please follow-up with travel specialist and your primary care provider within the next 24 to 48 hours. Return to the emergency room if experiencing abdominal pain, fever chills, chest pain shortness of breath Return immediately for any new or worsening symptoms. Follow up with primary care provider, call tomorrow to make followup appointment. Referrals: GIANCARLO CHANCE MD [Primary Care Provider] - Follow up as needed ZAYRA HENSLEY MD [ACTIVE STAFF] - Follow up as needed
== END 2020-02-28 21:57 | disposition home or self-care (01) ==
LOC: ER 18:53
DX: R19.5 Other fecal abnormalities (principal); Z87.891 Personal history of nicotine dependence; J45.909 Unspecified asthma, uncomplicated
CPT/HCPCS: 82270; 99283

== ENCOUNTER 2020-02-28 23:04 | Emergency (ER) | payer MEDICAID ==
[2020-02-29] MEDS ORDERED: PENICILLIN V POTASSIUM 500 MG TABLET PO ONE (02:19)
--- NOTE | 2020-02-29 02:22 | ER Document Report ---
HPI - HPI Time Seen by Provider: 02/29/20 02:11 Pain Level: 1 Context: Patient is a 34 year old male that comes emergency department for chief complaint of dental pain. He states he has developing redness and soreness in the right lower gum area. He does have a repaired tooth material but no recent fracture, he denies recent or history of dental infections. He denies any other complaints including sore throat, neck pain, fever, difficulty swallowing or breathing. - REPRODUCTIVE Reproductive: DENIES: : Past Medical History - General Information source: Patient - Social History Smoking Status: Never Smoker Chew tobacco use (# tins/day): No Frequency of alcohol use: None Drug Abuse: None Lives with: Family Family History: Reviewed & Not Pertinent Pulmonary Medical History: Reports: Hx Asthma, Hx Bronchitis GI Medical History: Reports: Hx Gastroesophageal Reflux Disease, Hx Irritable Bowel - Constipation Musculoskeletal Medical History: Reports Hx Arthritis, Reports Hx Musculoskeletal Trauma Psychiatric Medical History: Reports: Hx Anxiety, Hx Bipolar Disorder, Hx Depression, Hx Personality Disorder, Hx Schizoaffective Disorder, Hx Schizophrenia Traumatic Medical History: Reports: Hx Fractures - Finger fracture Past Surgical History: Reports: Hx Abdominal Surgery, Hx Appendectomy, Hx Cholecystectomy, Hx Orthopedic Surgery - Immunizations Immunizations up to date: Yes Hx Diphtheria, Pertussis, Tetanus Vaccination: Yes - 2012 Hx Pneumococcal Vaccination: 08/23/00 Vertical Provider Document - CONSTITUTIONAL General Appearance: WD/WN, No Apparent Distress - INFECTION CONTROL TRAVEL OUTSIDE OF THE [place] IN LAST 30 DAYS: No - HEENT HEENT: Atraumatic, Normocephalic. negative: Normal ENT Exam - Unremarkable oropharyngeal exam except for mild tenderness around the right lower gumline. There is only minimal erythema of the gumline. There is no abscess or concerning finding otherwise. Pharyngeal exam unremarkable, ENT exam otherwise unremarkable. - NECK Neck: Normal Inspection. negative: Lymphadenopathy-Left, Lymphadenopathy-Right - RESPIRATORY Respiratory: Breath Sounds Normal, No Respiratory Distress. negative: Wheezing - CARDIOVASCULAR Cardiovascular: Regular Rate, Regular Rhythm - GI/ABDOMEN Gastrointestinal: Abdomen Soft, Abdomen Non-Tender - BACK Back: Normal Inspection - MUSCULOSKELETAL/EXTREMETIES Musculoskeletal/Extremeties: MAEW, FROM, Non-Tender - NEURO Level of Consciousness: Awake, Alert, Appropriate Motor/Sensory: No Motor Deficit, No Sensory Deficit - DERM Integumentary: Warm, Dry, No Rash Course - Re-evaluation Re-evalutation: Patient with borderline erythema of the right lower gumline, complaining of pain that is intermittent to the area. I did provide him with penicillin after discussion of options, he has no swelling, evidence of abscess, or other concerning findings. Discussed treatment and follow-up with dentist. Patient states understanding and agreement. He has no other complaints. Patient is very well-known to me and was here earlier today. Vital signs unremarkable. Stable and well-appearing at time of discharge. - Vital Signs Vital signs: Temp Pulse Resp BP Pulse Ox 98.8 F 77 16 122/75 100 02/29/20 00:59 02/28/20 23:10 02/28/20 23:10 02/28/20 23:10 02/28/20 23:10 Discharge - Discharge Clinical Impression: Pain, dental Condition: Stable Disposition: HOME, SELF-CARE Additional Instructions: You have been prescribed penicillin for treatment of your dental pain, this clears dental infection as well. Follow-up with the dental clinic listed below. Come back if you are worse including severe worsening pain or swelling of the face. [facility] [address] [facility], [id number] Prescriptions: Penicillin V Potassium [Penicillin Vk 500 mg Tablet] 500 mg PO BID #20 tablet Referrals: GIANCARLO CHANCE MD [Primary Care Provider] - Follow up as needed
[2020-02-29 02:25] VITALS: BP 127/82
== END 2020-02-29 02:45 | disposition home or self-care (01) ==
LOC: ER 23:04
DX: K08.89 Other specified disorders of teeth and supporting structures (principal); J45.909 Unspecified asthma, uncomplicated
CPT/HCPCS: 99282; J3490

== ENCOUNTER 2020-03-03 12:38 | Emergency (ER) | payer MEDICAID ==
[2020-03-03 13:13] VITALS: BP 111/69
--- NOTE | 2020-03-03 13:48 | ER Document Report ---
HPI - HPI Patient complains to provider of: Bump to chest Time Seen by Provider: 03/03/20 13:43 Onset: Just prior to arrival Associated Symptoms: None Exacerbated by: Denies Relieved by: Denies Similar symptoms previously: No Recently seen / treated by doctor: No Notes: Patient presented to the emergency room to see if we can identify a bump on his right chest wall chest wall was palpated there is no bump - REPRODUCTIVE Reproductive: DENIES: : Past Medical History - General Information source: Patient - Social History Smoking Status: Never Smoker Cigarette use (# per day): No Chew tobacco use (# tins/day): No Smoking Education Provided: No Frequency of alcohol use: None Drug Abuse: None Family History: Reviewed & Not Pertinent Pulmonary Medical History: Reports: Hx Asthma, Hx Bronchitis GI Medical History: Reports: Hx Gastroesophageal Reflux Disease, Hx Irritable Bowel - Constipation Musculoskeletal Medical History: Reports Hx Arthritis, Reports Hx Musculoskeletal Trauma Psychiatric Medical History: Reports: Hx Anxiety, Hx Bipolar Disorder, Hx Depression, Hx Personality Disorder, Hx Schizoaffective Disorder, Hx Schizophrenia Traumatic Medical History: Reports: Hx Fractures - Finger fracture Past Surgical History: Reports: Hx Abdominal Surgery, Hx Appendectomy, Hx Cholecystectomy, Hx Orthopedic Surgery - Immunizations Immunizations up to date: Yes Hx Diphtheria, Pertussis, Tetanus Vaccination: Yes - 2012 Hx Pneumococcal Vaccination: 08/23/00 Vertical Provider Document - CONSTITUTIONAL Agree With Documented VS: Yes - INFECTION CONTROL TRAVEL OUTSIDE OF THE [place].S[place] IN LAST 30 DAYS: No - HEENT HEENT: Atraumatic, Conjuctival Injection, Normocephalic, PERRLA - NECK Neck: Normal Inspection - RESPIRATORY Respiratory: Breath Sounds Normal - CARDIOVASCULAR Cardiovascular: Regular Rate, Regular Rhythm - GI/ABDOMEN Gastrointestinal: Abdomen Soft, Abdomen Non-Tender - BACK Back: Normal Inspection - MUSCULOSKELETAL/EXTREMETIES Musculoskeletal/Extremeties: MAEW Course - Vital Signs Vital signs: Temp Pulse Resp BP Pulse Ox 98.4 F 55 L 20 111/69 97 03/03/20 13:12 03/03/20 13:12 03/03/20 13:12 03/03/20 13:12 03/03/20 13:12 Discharge - Discharge Clinical Impression: Well adult health check Condition: Good Disposition: HOME, SELF-CARE Additional Instructions: Follow-up with private doctor in 1 to 2 days for final radiology readings please return to the emergency room for any change worsening condition. Follow up with private M.D. for all other routine health care needs. Referrals: GIANCARLO CHANCE MD [Primary Care Provider] - Follow up as needed
== END 2020-03-03 13:49 | disposition home or self-care (01) ==
LOC: ER 12:38
DX: Z00.00 Encounter for general adult medical examination without abnormal findings (principal)
CPT/HCPCS: 99283

== ENCOUNTER 2020-03-04 15:39 | Emergency (ER) | payer MEDICAID ==
[2020-03-04 16:48] VITALS: BP 120/79
--- NOTE | 2020-03-04 20:40 | ER Document Report ---
Doctor's Note Notes: 03/04/20 20:38 I did not evaluate this patient, I had clicked in on the patient however when he got to the room the patient had eloped from the room.
== END 2020-03-04 19:43 | disposition left against medical advice (07) ==
LOC: ER 15:39
DX: Z53.21 Procedure and treatment not carried out due to patient leaving prior to being seen by health care provider (principal)

== ENCOUNTER → 2020-03-05 | Outpatient (CLI) | payer MEDICAID ==
[2020-03-05 11:04] VITALS: BP 107/63
--- NOTE | 2020-03-05 11:04 | ER RDC ASSESSMENT REPORT ---
Intake - In the Last 14 days Have you traveled outside [place]?: No Have you been in close contact with someone CONFIRMED: No Worked in Healthcare?: No - Symptoms Subjective Fever([place] feverish): No Chills: No Muscule Aches: No Runny Nose: No Sore Throat: No Cough (New or worsening chronic cough): No Shortness of breath: No Nausea or Vomiting: No Headache: No Abdominal Pain: No Diarrhea(3 or more loose stools in last 24 hours): Yes --How many day(s)?: Reports diarrhea for 2 days - Do you have any of the following Chronic lung disease: Asthma or emphysema or COPD: Yes Chronic Lung Disease Comment: Asthma Cystic Fibrosis: No Diabetes: No High Blood Pressure: No Cardiovascular Disease: No Chronic Kidney Disease: No Chronic Liver Disease: No Chronic blood disorder like Sickle Cell Disease: No Weak immune system due to disease or medication: No Neurologic condition that limits movement: No Developmental delay - Moderate to Severe: No Recent (within past 2 weeks) or current : No Morbid Obesity (>100 pounds over ideal weight): No Obesity Comment: Height 5 feet 8 inches weight 140 pounds - Objective Temperature: 98.6 F Pulse Rate: 88 Respiratory Rate: 20 Blood Pressure: 107/63 O2 Sat by Pulse Oximetry: 97 Objective: Given above, testing performed: If Testing Performed: Test Specimen Type Sent to General - General Information source: Patient Notes: Here at [facility] for COVID testing denies being exposed to anybody known for COVID does report has diarrhea for the last 2 days and is concerned due to community spread. [facility] and will communicate with him next steps has a history of asthma but is asymptomatic for upper respiratory issues at this time. - Related Data Allergies/Adverse Reactions: No Known Allergies Allergy (Verified 03/03/20 13:42) Past Medical History - General Information source: Patient - Social History Smoking Status: Never Smoker Family History: Reviewed & Not Pertinent Pulmonary Medical History: Reports: Hx Asthma, Hx Bronchitis GI Medical History: Reports: Hx Gastroesophageal Reflux Disease, Hx Irritable Bowel - Constipation Musculoskeletal Medical History: Reports Hx Arthritis, Reports Hx Musculoskeletal Trauma Psychiatric Medical History: Reports: Hx Anxiety, Hx Bipolar Disorder, Hx Depression, Hx Personality Disorder, Hx Schizoaffective Disorder, Hx Schizophrenia Traumatic Medical History: Reports: Hx Fractures - Finger fracture Past Surgical History: Reports: Hx Abdominal Surgery, Hx Appendectomy, Hx Cholecystectomy, Hx Orthopedic Surgery Physical Exam - General General appearance: Appears well, Alert In distress: None Notes: PHYSICAL EXAMINATION: GENERAL: Well-appearing and in no acute distress. HEAD: Atraumatic, normocephalic. EYES: sclera anicteric, conjunctiva are normal. ENT: nares patent. Moist mucous membranes. NECK: Normal range of motion, supple without lymphadenopathy LUNGS: CTAB and equal. No wheezes rales or rhonchi. Resp even and unlabored. Lung sounds clear. HEART: Regular rate and rhythm without murmurs ABDOMEN: Soft, nontender, normal bowel sounds, no guarding. EXTREMITIES: No cyanosis. NEUROLOGICAL: . Normal speech. PSYCH: Normal mood, normal affect. SKIN: Warm, Dry, normal turgor, Diagnostic Results Laboratory Results: Pending covid testing results. Patient provided instructions regarding COVID to include: As a person under investigation for Covid 19, the [place] department of Health and Human Services, division of public health advises you to adhere to the following guidance until your test results are reported to you. If your test result is positive, you will receive additional information from your provider and your local health department at that time. Remain at home until you are cleared by the health provider or public health authorities. Keep a log of visitors to your home, notify any visitors to your home of your isolation status. If you plan to move to a new address or leave the [facility], notify the local health department in your County. Call your doctor or seek care if you have an urgent medical need. Before seeking medical care, call ahead to get instructions from the provider before arriving at the medical office clinic or hospital. Notify them that you are being tested for the virus that causes Covid 19 so that arrangements can be made, as necessary, to prevent transmission to others in the healthcare setting. Next, notify the local health department in your county. If a medical emergency arises and you need to call 911, inform the first responders that you are being tested for the virus that causes Covid 19. Next, notify the local health department in your county.. Patient Education/Counseling Counseling/Education: Patient presents with upper respiratory symptoms worrisome for possible Covid 19. Patient does not have emergency worring symptoms such as difficulty breathing, shortness of breath, chest pain, pressure, confusion or cyanosis. Patient appears suitable for discharge. Patient directed to follow-up with PCP at [facility] today ED for persistent or worsening symptoms. Patient's vital signs are stable and patient is nontoxic in appearance. Good return precautions have been discussed with patient, patient verbalized understanding and is agreeable with discharge plan of care at this time. RDC Discharge - Discharge Clinical Impression: COVID - 19 SCREENING Condition: Stable Disposition: Home; Selfcare
== END ==
LOC: RDC 10:01
PROVIDERS: ATTEND Nurse Practitioner Family
DX: Z20.828 Contact with and (suspected) exposure to other viral communicable diseases (principal); R19.7 Diarrhea, unspecified; J45.909 Unspecified asthma, uncomplicated; K21.9 Gastro-esophageal reflux disease without esophagitis
CPT/HCPCS: 87635; 99201; 99211; C9803

== ENCOUNTER 2020-03-06 09:54 | Emergency (ER) | payer MEDICAID ==
[2020-03-06 10:27] VITALS: BP 106/61
--- NOTE | 2020-03-06 11:24 | ER Document Report ---
ED Medical Screen (RME) - General Chief Complaint: Eye Pain Stated Complaint: EAR CHECK - BOTH Time Seen by Provider: 03/06/20 11:22 Primary Care Provider: GIANCARLO CHANCE MD [Primary Care Provider] - Follow up as needed Mode of Arrival: Ambulatory Information source: Patient Notes: 34-year-old male presented to ED for complaint of ear pain. He states it was mo stly his left ear. He stated that it started when his eyes started hurting but his eyes do not hurt now. I offered to check his ears for him and he stated no he wanted to get checked and being seen by a doctor. As stated since he was tested for COVID yesterday the only way he could be seen was if [place]. He stated okay he wanted to be seen he did not want to be examined in the front of the ER. I have greeted and performed a rapid initial assessment of this patient. A comprehensive ED assessment and evaluation of the patient, analysis of test results and completion of medical decision making process will be conducted by an additional ED providers. TRAVEL OUTSIDE OF THE U.S. IN LAST 30 DAYS: No - Related Data Allergies/Adverse Reactions: No Known Allergies Allergy (Verified 03/03/20 13:42) Past Medical History - Social History Frequency of alcohol use: None Drug Abuse: None Family history: Reviewed & Not Pertinent Pulmonary Medical History: Reports: Hx Asthma, Hx Bronchitis GI Medical History: Reports: Hx Gastroesophageal Reflux Disease, Hx Irritable Bowel - Constipation Musculoskeltal Medical History: Reports Hx Arthritis, Reports Hx Musculoskeletal Trauma Psychiatric Medical History: Reports: Hx Anxiety, Hx Bipolar Disorder, Hx Depression, Hx Personality Disorder, Hx Schizoaffective Disorder, Hx Schizophrenia Traumatic Medical History: Reports: Hx Fractures - Finger fracture Past Surgical History: Reports: Hx Abdominal Surgery, Hx Appendectomy, Hx Cholecystectomy, Hx Orthopedic Surgery - Immunizations Immunizations up to date: Yes Hx Diphtheria, Pertussis, Tetanus Vaccination: Yes - 2012 Physical Exam - Vital signs Vitals: Temp Pulse Resp BP Pulse Ox 98.0 F 56 L 16 106/61 98 03/06/20 10:23 03/06/20 10:23 03/06/20 10:23 03/06/20 10:23 03/06/20 10:23 Course - Vital Signs Vital signs: Temp Pulse Resp BP Pulse Ox 98.0 F 56 L 16 106/61 98 03/06/20 10:23 03/06/20 10:23 03/06/20 10:23 03/06/20 10:23 03/06/20 10:23 Doctor's Discharge - Discharge Referrals: GIANCARLO CHANCE MD [Primary Care Provider] - Follow up as needed
== END 2020-03-06 11:22 | disposition left against medical advice (07) ==
LOC: ER 09:54
DX: H57.12 Ocular pain, left eye (principal); Z90.49 Acquired absence of other specified parts of digestive tract
CPT/HCPCS: 99281

== ENCOUNTER 2020-03-09 13:43 | Emergency (ER) | payer MEDICAID ==
--- NOTE | 2020-03-09 14:07 | ER Document Report ---
HPI - HPI Patient complains to provider of: Left lower extremity scratch Time Seen by Provider: 03/09/20 14:00 Onset: Other - This is a 34-year-old male who is very well-known to the facility I saw him personally multiple times over the last 2 weeks however approximately 2 weeks ago he presented with a complaint but also had mentioned that he had a scratch to his left lower extremity very concerned about that and wanted it reevaluated. Severity: Moderate Associated Symptoms: None Exacerbated by: Denies - REPRODUCTIVE Reproductive: DENIES: : Past Medical History - General Information source: Patient - Social History Smoking Status: Never Smoker Cigarette use (# per day): No Chew tobacco use (# tins/day): No Smoking Education Provided: No Frequency of alcohol use: None Drug Abuse: None Lives with: Homeless Family History: Reviewed & Not Pertinent Pulmonary Medical History: Reports: Hx Asthma, Hx Bronchitis GI Medical History: Reports: Hx Gastroesophageal Reflux Disease, Hx Irritable Bowel - Constipation Musculoskeletal Medical History: Reports Hx Arthritis, Reports Hx Musculoskeletal Trauma Psychiatric Medical History: Reports: Hx Anxiety, Hx Bipolar Disorder, Hx Depression, Hx Personality Disorder, Hx Schizoaffective Disorder, Hx Schizophrenia Traumatic Medical History: Reports: Hx Fractures - Finger fracture Past Surgical History: Reports: Hx Abdominal Surgery, Hx Appendectomy, Hx Cholecystectomy, Hx Orthopedic Surgery - Immunizations Immunizations up to date: Yes Hx Diphtheria, Pertussis, Tetanus Vaccination: Yes - 2012 Hx Pneumococcal Vaccination: 08/23/00 Vertical Provider Document - INFECTION CONTROL TRAVEL OUTSIDE OF THE [place] IN LAST 30 DAYS: No - HEENT HEENT: Atraumatic, Normocephalic, PERRLA - NECK Neck: Normal Inspection - RESPIRATORY Respiratory: Breath Sounds Normal - CARDIOVASCULAR Cardiovascular: Regular Rate, Regular Rhythm - GI/ABDOMEN Gastrointestinal: Abdomen Soft - REPRODUCTIVE Male Genitalia: Normal Inspection - BACK Back: Normal Inspection - MUSCULOSKELETAL/EXTREMETIES Musculoskeletal/Extremeties: MAEW - NEURO Level of Consciousness: Awake, Alert - DERM Integumentary: Warm Notes: Patient has well-healed scratch to the left lateral surface of his lower extremity approximately 2 cm superior to the ankle laterally no excessive warmth no excessive tenderness no nausea no vomiting no fever Course - Re-evaluation Re-evalutation: 03/09/20 14:06 No excessive warmth no nausea no vomiting no tenderness no discharge well-healed scratch to lower extremity Discharge - Discharge Clinical Impression: Abrasion Condition: Good Disposition: HOME, SELF-CARE Instructions: Abrasions ([facility]) Additional Instructions: Keep skin clean and dry. Follow-up with private doctor in 1 to 2 days for final radiology readings please return to the emergency room for any change worsening condition. Follow up with private M.D. for all other routine health care needs. Referrals: GIANCARLO CHANCE MD [Primary Care Provider] - Follow up as needed
[2020-03-09 14:18] VITALS: BP 102/73
== END 2020-03-09 14:11 | disposition home or self-care (01) ==
LOC: ER 13:43
DX: S80.812D Abrasion, left lower leg, subsequent encounter (principal); X58.XXXD Exposure to other specified factors, subsequent encounter; J45.909 Unspecified asthma, uncomplicated
CPT/HCPCS: 99282

== ENCOUNTER 2020-03-15 17:25 | Emergency (ER) | payer MEDICAID ==
[2020-03-15 17:37] VITALS: BP 114/70
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
== END 2020-03-15 18:21 | disposition home or self-care (01) ==
LOC: ER 17:25
DX: R09.89 Other specified symptoms and signs involving the circulatory and respiratory systems (principal); R07.9 Chest pain, unspecified; W22.8XXA Striking against or struck by other objects, initial encounter; J45.909 Unspecified asthma, uncomplicated
CPT/HCPCS: 71046; 99284

== ENCOUNTER → 2020-03-15 | Outpatient (CLI) | payer MEDICAID ==
--- NOTE | 2020-03-15 16:21 | RADIOLOGY REPORT (SQ) ---
EXAM DESCRIPTION: ABDOMEN 2 VIEWS IMAGES COMPLETED DATE/TIME: 03/15/2020 4:12 pm REASON FOR STUDY: GENERALIZED ABDOMINAL PAIN R10.84 GENERALIZED ABDOMINAL PAIN COMPARISON: 01/30/2020. NUMBER OF VIEWS: Two views. TECHNIQUE: Supine and erect/decubitus radiographic images of the abdomen acquired. LIMITATIONS: None. FINDINGS: FREE AIR: None. No abnormal gas collections. LUNG BASES: Clear. BOWEL GAS PATTERN: Nonobstructive pattern. No dilated loops or air fluid levels. CALCIFICATIONS: No suspicious calcifications. SOFT TISSUES: No gross mass or suggestion of organomegaly. HARDWARE: None in the abdomen. BONES: No acute fracture. No worrisome bone lesions. OTHER: No other significant finding. IMPRESSION: NO RADIOGRAPHIC EVIDENCE FOR ACUTE ABDOMINAL DISEASE. TECHNICAL DOCUMENTATION: JOB ID: [id number] 2010 [employer]- All Rights Reserved Reading location - IP/workstation name: [email or web address]
== END ==
LOC: OD 15:58
PROVIDERS: ATTEND Internal Medicine
DX: R10.84 Generalized abdominal pain (principal)
CPT/HCPCS: 74019

== ENCOUNTER 2020-03-16 13:43 | Emergency (ER) | payer MEDICAID ==
[2020-03-16 13:51] VITALS: BP 131/85
[2020-03-16] MEDS ORDERED: MAGNESIUM CITRATE 296 ML BOTTLE PO ONE (13:54)
--- NOTE | 2020-03-16 13:59 | ER Document Report ---
ED GI/ - General Chief Complaint: Constipation Stated Complaint: BOWEL ISSUES Time Seen by Provider: 03/16/20 13:54 Primary Care Provider: GIANCARLO CHANCE MD [Primary Care Provider] - Follow up in 3-5 days Mode of Arrival: Ambulatory Information source: Patient Notes: 34-year-old male presented to ED for continued constipation. He was seen here yesterday and when his x-ray showed constipation we did give him prune juice recommended use of mag citrate and MiraLAX. He states he has no money no food stamps left. We did give him mag citrate and a couple more prune juices. Patient will be discharged home with instructions to follow-up TRAVEL OUTSIDE OF THE [place] IN LAST 30 DAYS: No - HPI Patient complains to provider of: Other - Constipation with small amounts of smeared stool Onset: Other - Couple days Timing/Duration: Persistent Quality of pain: Cramping Severity at maximum: Mild Severity in ED: Mild Pain Level: 1 Associated symptoms: Constipation Exacerbated by: Denies Relieved by: Denies Similar symptoms previously: Yes Recently seen / treated by doctor: Yes - Related Data Allergies/Adverse Reactions: No Known Allergies Allergy (Verified 03/15/20 17:33) Past Medical History - General Information source: Patient - Social History Smoking Status: Never Smoker Frequency of alcohol use: None Drug Abuse: None Lives with: Family Family History: Reviewed & Not Pertinent Patient has suicidal ideation: No Patient has homicidal ideation: No - Past Medical History Cardiac Medical History: Reports: None Pulmonary Medical History: Reports: Hx Asthma, Hx Bronchitis EENT Medical History: Reports: None Neurological Medical History: Reports: None Endocrine Medical History: Reports: None Renal/ Medical History: Reports: None Malignancy Medical History: Reports None GI Medical History: Reports: Hx Gastroesophageal Reflux Disease, Hx Irritable Bowel - Constipation Musculoskeletal Medical History: Reports Hx Arthritis, Reports Hx Musculoskeletal Trauma Skin Medical History: Reports None Psychiatric Medical History: Reports: Hx Anxiety, Hx Bipolar Disorder, Hx Depression, Hx Personality Disorder, Hx Schizoaffective Disorder, Hx Schizophrenia Traumatic Medical History: Reports: Hx Fractures - Finger fracture Infectious Medical History: Reports: None Past Surgical History: Reports: Hx Abdominal Surgery, Hx Appendectomy, Hx Cholecystectomy, Hx Orthopedic Surgery - Immunizations Immunizations up to date: Yes Hx Diphtheria, Pertussis, Tetanus Vaccination: Yes - 2012 Hx Pneumococcal Vaccination: 08/23/00 Review of Systems - Review of Systems Constitutional: No symptoms reported EENT: No symptoms reported Cardiovascular: No symptoms reported Respiratory: No symptoms reported Gastrointestinal: Constipation Genitourinary: No symptoms reported Male Genitourinary: No symptoms reported Musculoskeletal: No symptoms reported Skin: No symptoms reported Hematologic/Lymphatic: No symptoms reported Neurological/Psychological: No symptoms reported -: Yes All other systems reviewed and negative Physical Exam - Vital signs Vitals: Temp Pulse Resp BP Pulse Ox 98.5 F 78 18 131/85 H 97 03/16/20 13:50 03/16/20 13:50 03/16/20 13:50 03/16/20 13:50 03/16/20 13:50 Interpretation: Normal - General General appearance: Appears well, Alert - HEENT Head: Normocephalic, Atraumatic Eyes: Normal Pupils: PERRL - Respiratory Respiratory status: No respiratory distress Chest status: Nontender Breath sounds: Normal Chest palpation: Normal - Cardiovascular Rhythm: Regular Heart sounds: Normal auscultation Murmur: No - Abdominal Inspection: Normal Distension: No distension Bowel sounds: Hyperactive Tenderness: Nontender Organomegaly: No organomegaly - Back Back: Normal, Nontender - Extremities General upper extremity: Normal inspection, Nontender, Normal color, Normal ROM, Normal temperature General lower extremity: Normal inspection, Nontender, Normal color, Normal ROM, Normal temperature, Normal weight bearing. No: Esdras's sign - Neurological Neuro grossly intact: Yes Cognition: Normal Orientation: AAOx4 Jasmin Coma Scale Eye Opening: Spontaneous [place] Coma Scale Verbal: Oriented Jasmin Coma Scale Motor: Obeys Commands [place] Coma Scale Total: 15 Speech: Normal Motor strength normal: LUE, RUE, LLE, RLE Sensory: Normal - Psychological Associated symptoms: Normal affect, Normal mood - Skin Skin Temperature: Warm Skin Moisture: Dry Skin Color: Normal Course - Vital Signs Vital signs: Temp Pulse Resp BP Pulse Ox 98.5 F 78 18 131/85 H 97 03/16/20 13:50 03/16/20 13:50 03/16/20 13:50 03/16/20 13:50 03/16/20 13:50 Discharge - Discharge Clinical Impression: Constipation Qualifiers: Constipation type: unspecified constipation type Qualified Code(s): K59.00 - Constipation, unspecified Condition: Stable Disposition: HOME, SELF-CARE Additional Instructions: CONSTIPATION: Constipation is a common problem. It is especially likely as you get older. Constipation is a common cause of abdominal pain, but sometimes causes no symptoms at all. Causes of constipation include certain medications, dehydration, diets, inactivity, and low-fiber intake. Rarely, it can be a symptom of underlying disease. The physician has evaluated you for this. Avoid constipation by eating a diet high in fiber, fruits, and vegetables. Drink plenty of liquids. Get regular exercise. If possible, avoid constipating medicines like narcotic pain medication. Some vitamin tablets can cause constipation. Stool softeners may be needed for difficult cases. An excellent stool softener is Konsyl which is available at [employer], and [employer]. Just add a teaspoon to a glass of pineapple or orange juice daily or twice a day if needed. Laxatives are useful for occasional constipation. You should use them only when necessary. Too-frequent use can make your bowels dependent on them. Some over the counter laxatives available without prescription are: Milk of Magnesia, 1-2 tablespoons twice a day Dulcolax, 5 mg pill or 10 mg suppository. Citrate of Magnesia, 4-5 ounces a day for a day or two For acute constipation, Fleet's Enemas and Dulcolax suppositories are helpful. Chronic, half-way use of laxatives or enemas is not a good idea. Your bowel may become dependant on them. You do not need to have a bowel movement every day. Many people do fine with a bowel movement every three or four days. You should call your doctor or return for re-evaluation if you pass blood in the stool, or if you develop fever or increasing abdominal pain. BULK LAXATIVES: Bulk laxatives make the stool softer and bulkier. They're useful for preventing constipation. You can choose between psyllium, methylcellulose, and polycarbophil. They are available without a prescription. Psyllium brand names include Konsyl, Metamucil, Perdiem, Effer-Syllium and Hydrocil. It's available as powder, flavored drink powder, or chewable. The usual dose of psyllium powder is one heaping teaspoon in water each morning, increasing to twice a day if needed. [place] juice can disguise the slightly grainy texture. Methylcellulose is marketed as Citrucel and other brands. The average dose is two grams in a cup of water one to three times a day. Polycarbophil is marketed as Fiber-Con. Take two tablets with a cup of water one to three times a day. LAXATIVE: A laxative agent has been prescribed for your condition. This should result in passage of stool within 12 hours. Some mild intestinal cramping is common as the hard stool begins to move. You may have loose or runny stools for a short time. Contact your doctor if there is severe cramping, vomiting, or passage of blood. Return for further care if this medicine fails to improve your condition. You have been given mag citrate 1 bottle today. This is something you can buy at the [employer] or the [employer] or the [employer]. He comes in many flavors. You cannot take it more than 1 day if it does not relieve you please call Dr. Chance for follow-up. You can also use MiraLAX there is at the [employer] use 1 capful in a glass of liquid 1-2 times a day up to 5 days. You could also use prune juice warm prune juice is more effective than cold prune juice. FOLLOW-UP CARE: If you have been referred to a physician for follow-up care, call the physicians office for an appointment as you were instructed or within the next two days. If you experience worsening or a significant change in your symptoms, notify the physician immediately or return to the Emergency Department at any time for re-evaluation. Forms: Elevated Blood Pressure Referrals: GIANCARLO CHANCE MD [Primary Care Provider] - Follow up in 3-5 days
== END 2020-03-16 14:09 | disposition home or self-care (01) ==
LOC: ER 13:43
DX: K59.00 Constipation, unspecified (principal); Z90.49 Acquired absence of other specified parts of digestive tract
CPT/HCPCS: 99283; J3490

== ENCOUNTER → 2020-03-21 | Outpatient (CLI) | payer MEDICAID | LOC: OD 12:03 | PROVIDERS: ATTEND Internal Medicine | DX: Z11.4 Encounter for screening for human immunodeficiency virus [HIV] (principal); B20 Human immunodeficiency virus [HIV] disease | CPT/HCPCS: 36415; 86701 ==

== ENCOUNTER → 2020-04-01 | Outpatient (CLI) | payer MEDICAID ==
--- NOTE | 2020-04-01 12:55 | RADIOLOGY REPORT (SQ) ---
EXAM DESCRIPTION: CHEST PA/LATERAL IMAGES COMPLETED DATE/TIME: 04/01/2020 12:11 pm REASON FOR STUDY: CHEST PAIN, UNSPECIFIED COMPARISON: 03/15/2020 EXAM PARAMETERS: NUMBER OF VIEWS: two views TECHNIQUE: Digital Frontal and Lateral radiographic views of the chest acquired. RADIATION DOSE: NA LIMITATIONS: none FINDINGS: LUNGS AND PLEURA: No opacities, masses or pneumothorax. No pleural effusion. MEDIASTINUM AND HILAR STRUCTURES: No masses or contour abnormalities. HEART AND VASCULAR STRUCTURES: Heart normal size. No evidence for failure. BONES: No acute findings. HARDWARE: None in the chest. OTHER: No other significant finding. IMPRESSION: NO SIGNIFICANT RADIOGRAPHIC FINDING IN THE CHEST. TECHNICAL DOCUMENTATION: JOB ID: [id number] 2010 [employer]- All Rights Reserved Reading location - IP/workstation name: [email or web address]
== END ==
LOC: RAD 11:56
PROVIDERS: ATTEND Internal Medicine
DX: R07.9 Chest pain, unspecified (principal)
CPT/HCPCS: 71046

== ENCOUNTER → 2020-04-11 | Outpatient (CLI) | payer MEDICAID ==
[2020-04-11 13:52] VITALS: BP 150/69
--- NOTE | 2020-04-11 13:52 | ER [facility] ASSESSMENT REPORT ---
Intake - In the Last 14 days Have you traveled outside [place]?: No Have you been in close contact with someone CONFIRMED: Yes Worked in Healthcare?: No - Symptoms Subjective Fever([place] feverish): No Chills: No Muscule Aches: No Runny Nose: No Sore Throat: No Cough (New or worsening chronic cough): No Shortness of breath: Yes Nausea or Vomiting: No Headache: No Abdominal Pain: No Diarrhea(3 or more loose stools in last 24 hours): No - Do you have any of the following Chronic lung disease: Asthma or emphysema or COPD: Yes Chronic Lung Disease Comment: asthma Cystic Fibrosis: No Diabetes: No High Blood Pressure: No Cardiovascular Disease: No Chronic Kidney Disease: No Chronic Liver Disease: No Chronic blood disorder like Sickle Cell Disease: No Weak immune system due to disease or medication: No Neurologic condition that limits movement: No Developmental delay - Moderate to Severe: No Recent (within past 2 weeks) or current : No Morbid Obesity (>100 pounds over ideal weight): No - Objective Temperature: 96.5 F Pulse Rate: 99 Respiratory Rate: 17 Blood Pressure: 150/69 O2 Sat by Pulse Oximetry: 96 Objective: Given above, testing performed: If Testing Performed: Test Specimen Type Sent to General - General Mode of Arrival: Ambulatory Information source: Patient Notes: Patient presents to the [facility] for screening for the coronavirus. Patient states he has had some shortness of breath. Patient reports exposure to someone who did test positive recently. Patient has a history of asthma. - Related Data Allergies/Adverse Reactions: No Known Allergies Allergy (Verified 03/15/20 17:33) Past Medical History - General Information source: Patient - Social History Smoking Status: Never Smoker Family History: Reviewed & Not Pertinent Pulmonary Medical History: Reports: Hx Asthma, Hx Bronchitis GI Medical History: Reports: Hx Gastroesophageal Reflux Disease, Hx Irritable Bowel - Constipation Musculoskeletal Medical History: Reports Hx Arthritis, Reports Hx Musculoskeletal Trauma Psychiatric Medical History: Reports: Hx Anxiety, Hx Bipolar Disorder, Hx Depression, Hx Personality Disorder, Hx Schizoaffective Disorder, Hx Schizophrenia Traumatic Medical History: Reports: Hx Fractures - Finger fracture Past Surgical History: Reports: Hx Abdominal Surgery, Hx Appendectomy, Hx Cholecystectomy, Hx Orthopedic Surgery Physical Exam - Notes Notes: The patient was evaluated during the global Covid 19 pandemic, and that diagnosis was suspected/considered upon their initial presentation. Their evaluation, treatment and testing was consistent with current guidelines for patients who present with complaints or symptoms that may be related to Covid 19. Full physical exam could not be performed due to covid 19 isolation protocols. Constitutional: Nontoxic appearance, no acute distress Eyes: Nonicteric, extraocular movements intact, sclera clear Cardiovascular: Heart rate and rhythm regular, breath sounds clear bilaterally, no JVD Respiratory: Nonlabored breathing, no use of accessory muscles, no tachypnea Gastrointestinal: Abdomen not distended Muculoskeletal: Moves all extremities well Skin: Normal color Neuro: Awake alert oriented, normal speech Psych: Normal mood and affect Diagnostic Results Laboratory Results: Patient presents with upper respiratory symptoms worrisome for possible Covid 19. Patient does not have emergency worrying symptoms such as difficulty breathing, shortness of breath, chest pain, pressure, confusion or cyanosis. Patient appears suitable for discharge as they are not of an advanced age, do not have any chronic medical conditions such as diabetes, CAD, immune deficien cy, or chronic kidney disease. Patient's vital signs are stable and patient is nontoxic in appearance. Good return precautions have been discussed with patient, patient verbalized understanding and is agreeable with discharge plan of care at this time. Patient Education/Counseling Counseling/Education: Patient was provided with discharge information including: As a person under investigation for Covid 19, the [place] department of Health and Human Services, division of public health advises you to adhere to the following guidance until your test results are reported to you. If your test result is positive, you will receive additional information from your provider and your local health department at that time. Remain at home until you are cleared by the health provider or public health authorities. Keep a log of visitors to your home, notify any visitors to your home of your isolation status. If you plan to move to a new address or leave the county, notify the local health department in your County. Call your doctor or seek care if you have an urgent medical need. Before seeking medical care, call ahead to get instructions from the provider before arriving at the medical office clinic or hospital. Notify them that you are being tested for the virus that causes Covid 19 so that arrangements can be made, as necessary, to prevent transmission to others in the healthcare setting. Next, notify the local health department in your county. If a medical emergency arises and you need to call 911, inform the first responders that you are being tested for the virus that causes Covid 19. Next, notify the local health department in your county. [facility] Discharge - Discharge Clinical Impression: Encounter for screening laboratory testing for COVID-19 virus Condition: Stable Disposition: Home; Selfcare
== END ==
LOC: RDC 12:33
PROVIDERS: ATTEND Nurse Practitioner Family
DX: Z20.828 Contact with and (suspected) exposure to other viral communicable diseases (principal)
CPT/HCPCS: 87635; C9803; 99201; 99211

== ENCOUNTER → 2020-05-09 | Outpatient (CLI) | payer MEDICAID ==
--- NOTE | 2020-05-09 13:06 | RADIOLOGY REPORT (SQ) ---
EXAM DESCRIPTION: CHEST PA/LATERAL IMAGES COMPLETED DATE/TIME: 05/09/2020 12:10 pm REASON FOR STUDY: COUGH COMPARISON: 04/01/2020 EXAM PARAMETERS: NUMBER OF VIEWS: two views TECHNIQUE: Digital Frontal and Lateral radiographic views of the chest acquired. RADIATION DOSE: NA LIMITATIONS: none FINDINGS: LUNGS AND PLEURA: No opacities, masses or pneumothorax. No pleural effusion. MEDIASTINUM AND HILAR STRUCTURES: No masses or contour abnormalities. HEART AND VASCULAR STRUCTURES: Heart normal size. No evidence for failure. BONES: No acute findings. HARDWARE: None in the chest. OTHER: No other significant finding. IMPRESSION: NO SIGNIFICANT RADIOGRAPHIC FINDING IN THE CHEST. TECHNICAL DOCUMENTATION: JOB ID: [id number] 2010 [employer]- All Rights Reserved Reading location - IP/workstation name: [email or web address]
== END ==
LOC: RAD 11:46
PROVIDERS: ATTEND Internal Medicine
DX: R05 Cough (principal)
CPT/HCPCS: 71046

== ENCOUNTER 2020-05-25 16:02 | Emergency (ER) | payer MEDICAID ==
--- NOTE | 2020-05-25 17:57 | ER Document Report ---
ED Medical Screen (RME) - General Chief Complaint: Cold Symptoms Stated Complaint: SNEEZING,RUNNY NOSE Time Seen by Provider: 05/25/20 17:42 Primary Care Provider: GIANCARLO CHANCE MD [Primary Care Provider] - Follow up as needed Mode of Arrival: Ambulatory Information source: Patient Notes: 34-year-old female presented to ED for feeling yucky in the throat and stomach. He states he is not feeling any nausea or vomiting he is not feeling any diarrhea. He states he does not have any abdominal pain he does have an intermittent runny nose he does not have any cough and does not sneeze more than once or twice a week. He states he came because he thought he might have a stomach virus or flu. He denies any fevers or congestion. He states he does not smoke or use any illicit drugs. He states he does very rarely drink he drank once last week but has not drank before that in at least a year. He had abdominal pain earlier but has none now. He states he is occasionally short of breath but is not short of breath now. Patient became very agitated and angry that he was talked to in the front lobby that he was not supposed to be in the emergency room because of threatening a staff member. He did state couple times that he was so depressed he was going to kill himself he was going to hurt and kill himself. I did go and get Yaakov the mental health provider and she came and spoke with him. He states no he has too much mauro and does not want to go to the local fire. He states he would never kill himself he is just upset. He states he would like some help with his depression but no he would never kill himself. TRAVEL OUTSIDE OF THE [place] IN LAST 30 DAYS: No - HPI Onset: Other Onset/Duration: Intermittent - Couple days Quality of pain: No pain Severity: None Pain Level: Denies Associated Symptoms: Rhinorrhea, Other - States he had abdominal pain and feeling yucky between the throat and stomach earlier but does not now. denies: Abdominal pain, Body/muscle aches, Chest pain, Cough (productive), Cough (nonproductive), Nausea, Vomiting Exacerbated by: denies: Denies Relieved by: denies: Denies Similar symptoms previously: Yes Recently seen / treated by doctor: No - Related Data Smoking: Non-smoker Frequency of alcohol use: Rare Drug Abuse: None Allergies/Adverse Reactions: No Known Allergies Allergy (Verified 03/15/20 17:33) Past Medical History - General Information source: Patient - Social History Cigarette use (# per day): No Chew tobacco use (# tins/day): No Frequency of alcohol use: Rare Drug Abuse: None Lives with: Alone Family history: Reviewed & Not Pertinent - Past Medical History Cardiac Medical History: Reports: None Pulmonary Medical History: Reports: Hx Asthma, Hx Bronchitis EENT Medical History: Reports: None Neurological Medical History: Reports: None Endocrine Medical History: Reports: None Renal/ Medical History: Reports: None Malignancy Medical History: Reports None GI Medical History: Reports: Hx Gastroesophageal Reflux Disease, Hx Irritable Bowel - Constipation Musculoskeltal Medical History: Reports Hx Arthritis, Reports Hx Musculoskeletal Trauma Psychiatric Medical History: Reports: Hx Anxiety, Hx Bipolar Disorder, Hx Depression, Hx Personality Disorder, Hx Schizoaffective Disorder, Hx S chizophrenia Traumatic Medical History: Reports: Hx Fractures - Finger fracture Past Surgical History: Reports: Hx Abdominal Surgery, Hx Appendectomy, Hx Cholecystectomy, Hx Orthopedic Surgery - Immunizations Immunizations up to date: Yes Hx Diphtheria, Pertussis, Tetanus Vaccination: Yes - 2012 Review of Systems - Review of Systems Constitutional: No symptoms reported EENT: Nose discharge Cardiovascular: No symptoms reported Respiratory: No symptoms reported Gastrointestinal: Abdominal pain - She has an umbilical mitten abdominal pain but none right now, Other Genitourinary: No symptoms reported Male Genitourinary: No symptoms reported Musculoskeletal: No symptoms reported Skin: No symptoms reported Hematologic/Lymphatic: No symptoms reported Neurological/Psychological: No symptoms reported -: Yes All other systems reviewed and negative Physical Exam - Vital signs Vitals: Temp Pulse Resp BP Pulse Ox 98.7 F 93 16 140/81 H 98 05/25/20 16:34 05/25/20 16:34 05/25/20 16:34 05/25/20 16:34 05/25/20 16:34 Interpretation: Normal - General General appearance: Appears well, Alert - HEENT Head: Normocephalic, Atraumatic Eyes: Normal Pupils: PERRL Ears: Normal External canal: Normal Tympanic membrane: Normal Sinus: Normal Nasal: Clear rhinorrhea Mouth/Lips: Normal Mucous membranes: Normal Pharynx: Post nasal drainage Neck: Normal - Respiratory Respiratory status: No respiratory distress Chest status: Nontender Breath sounds: Normal Chest palpation: Normal - Cardiovascular Rhythm: Regular Heart sounds: Normal auscultation Murmur: No - Abdominal Inspection: Normal Distension: No distension Bowel sounds: Normal Tenderness: Nontender. No: Tender Organomegaly: No organomegaly - Back Back: Normal, Nontender - Extremities General upper extremity: Normal inspection, Nontender, Normal color, Normal ROM, Normal temperature General lower extremity: Normal inspection, Nontender, Normal color, Normal ROM, Normal temperature, Normal weight bearing. No: Esdras's sign - Neurological Neuro grossly intact: Yes Cognition: Normal Orientation: AAOx4 [place]as[place] Coma Scale Eye Opening: Spontaneous [place]asmin Coma Scale Verbal: Oriented [place] Coma Scale Motor: Obeys Commands [place] Coma Scale Total: 15 Speech: Normal Motor strength normal: LUE, RUE, LLE, RLE Sensory: Normal - Psychological Associated symptoms: Normal affect, Normal mood - Skin Skin Temperature: Warm Skin Moisture: Dry Skin Color: Normal Course - Vital Signs Vital signs: Temp Pulse Resp BP Pulse Ox 98.3 F 74 18 127/80 H 99 05/25/20 18:10 05/25/20 18:10 05/25/20 18:10 05/25/20 18:10 05/25/20 18:10 Doctor's Discharge - Discharge Clinical Impression: URI (upper respiratory infection) Qualifiers: URI type: unspecified viral URI Qualified Code(s): J06.9 - Acute upper respiratory infection, unspecified Condition: Stable Disposition: HOME, SELF-CARE Additional Instructions: UPPER RESPIRATORY ILLNESS: You have a viral infection of the respiratory passages -- a "cold." This common infection causes nasal congestion, drainage, and often sore throat and cough. It is highly contagious. The disease usually lasts about 10 to 14 days. There is no "cure" for the viral infection -- it must run its course. If there is a complication, such as bacterial infection in the nose, sinuses, middle ear, or bronchial tubes, antibiotics may be required. The antibiotics won't affect the virus. Drink plenty of fluids. A humidifier may help. An expectorant medication or decongestant may make you more comfortable. Use acetaminophen or ibuprofen for fever or aches. See the doctor if fever persists over two days, if there is any significant worsening of your symptoms, or if you simply fail to improve as expected. You could also use Flonase which is [id number] 1 spray each nostril twice a day. You could also use salt soda solution gargles. These will help to remove the drainage from the back your throat. Chloraseptic spray was [id number] that will also help with your sore throat. Salt and soda solution gargle 1 quart of water 1 tablespoon of salt 1 teaspoon of baking soda Mixed 3 ingredients together and boil for 1 minute Placed in a covered quart jar Use 1/2 ounce of cold solution to gargle 3 times a day USE OF ACETAMINOPHEN (Tylenol): Acetaminophen may be taken for pain relief or fever control. It's much safer than aspirin, offering a wider range of "safe" dosages. It is safe during . Some brand names are Tylenol, Panadol, Datril, Anacin 3, Tempra, and Liquiprin. Acetaminophen can be repeated every four hours. The following are maximum recommended dosages: >89 pounds or adults 650 mg to 900 mg Acetaminophen can be repeated every four hours. Maximum dose not to exceed 4000 mg a day. FOLLOW-UP CARE: If you have been referred to a physician for follow-up care, call the physicians office for an appointment as you were instructed or within the next two days. If you experience worsening or a significant change in your symptoms, notify the physician immediately or return to the Emergency Department at any time for re-evaluation. Forms: Return to Work Referrals: GIANCARLO CHANCE MD [Primary Care Provider] - Follow up as needed
[2020-05-25 18:11] VITALS: BP 127/80
== END 2020-05-25 18:15 | disposition home or self-care (01) ==
LOC: ER 16:02
DX: J06.9 Acute upper respiratory infection, unspecified (principal); B97.89 Other viral agents as the cause of diseases classified elsewhere; R06.7 Sneezing; R45.4 Irritability and anger; J34.89 Other specified disorders of nose and nasal sinuses; R09.82 Postnasal drip; J45.909 Unspecified asthma, uncomplicated
CPT/HCPCS: 99282

== ENCOUNTER 2020-05-27 18:06 | Emergency (ER) | payer MEDICAID ==
[2020-05-27 18:23] VITALS: BP 130/99
== END 2020-05-27 18:30 | disposition left against medical advice (07) ==
LOC: ER 18:06
DX: Z53.21 Procedure and treatment not carried out due to patient leaving prior to being seen by health care provider (principal)

== ENCOUNTER 2020-06-09 07:26 | Emergency (ER) | payer MEDICAID ==
--- NOTE | 2020-06-09 08:29 | ER Document Report ---
Entered by HETAL ENAMORADO SCRIBE 06/09/20 0756 Acting as scribe for:SARA CHRISTIANSEN MD ED Extremity Problem, Lower - General Chief Complaint: Leg Pain Stated Complaint: RIGHT LEG INJURY Primary Care Provider: GIANCARLO CHANCE MD [Primary Care Provider] - Follow up as needed Mode of Arrival: Ambulatory Information source: Patient Notes: This 34 year old male patient presents to the ED today for evaluation of right leg injury that occurred around 0700 this morning. Patient states "a flat screen tv hit my leg" and that he is concerned that something may be wrong with it. He is able to ambulate without any difficulty. Denies any other complaints. TRAVEL OUTSIDE OF THE [place] IN LAST 30 DAYS: No - Related Data Allergies/Adverse Reactions: No Known Allergies Allergy (Verified 06/09/20 07:38) Past Medical History - General Information source: Patient, [facility] Records - Social History Smoking Status: Former Smoker Cigarette use (# per day): No Chew tobacco use (# tins/day): No Smoking Education Provided: No Family History: Reviewed & Not Pertinent Patient has suicidal ideation: No Patient has homicidal ideation: No Pulmonary Medical History: Reports: Hx Asthma, Hx Bronchitis GI Medical History: Reports: Hx Gastroesophageal Reflux Disease, Hx Irritable Bowel - Constipation Musculoskeletal Medical History: Reports Hx Arthritis, Reports Hx Musculoskelet al Trauma Psychiatric Medical History: Reports: Hx Anxiety, Hx Bipolar Disorder, Hx Depression, Hx Personality Disorder, Hx Schizoaffective Disorder, Hx Schizophrenia Traumatic Medical History: Reports: Hx Fractures - Finger fracture Past Surgical History: Reports: Hx Abdominal Surgery, Hx Appendectomy, Hx Cholecystectomy, Hx Orthopedic Surgery - Immunizations Immunizations up to date: Yes Hx Diphtheria, Pertussis, Tetanus Vaccination: Yes - 2012 Hx Pneumococcal Vaccination: 08/23/00 Review of Systems - Review of Systems Constitutional: No symptoms reported EENT: No symptoms reported Cardiovascular: No symptoms reported Respiratory: No symptoms reported Gastrointestinal: No symptoms reported Genitourinary: No symptoms reported Male Genitourinary: No symptoms reported Musculoskeletal: See HPI Skin: No symptoms reported Hematologic/Lymphatic: No symptoms reported Neurological/Psychological: No symptoms reported -: Yes All other systems reviewed and negative Physical Exam - Vital signs Vitals: Temp Pulse Resp BP Pulse Ox 98.2 F 84 18 133/80 H 99 06/09/20 07:41 06/09/20 07:41 06/09/20 07:41 06/09/20 07:41 06/09/20 07:41 Interpretation: Normal - General General appearance: Appears well, Alert In distress: None - HEENT Head: Normocephalic, Atraumatic Eyes: Normal Pupils: PERRL - Respiratory Respiratory status: No respiratory distress Chest status: Nontender Breath sounds: Normal Chest palpation: Normal - Cardiovascular Rhythm: Regular Heart sounds: Normal auscultation, S1 appreciated, S2 appreciated Murmur: No Friction rub: No Gallop: None auscultated - Abdominal Inspection: Normal Distension: No distension Bowel sounds: Normal Tenderness: Nontender - Abdomen soft Organomegaly: No organomegaly - Back Back: Normal, Nontender - Extremities General upper extremity: Normal inspection General lower extremity: Normal inspection, Nontender, Normal color, Normal strength, Normal temperature, Normal weight bearing. No: Tender, Edema - Neurological Neuro grossly intact: Yes Orientation: AAOx4 [place] Coma Scale Eye Opening: Spontaneous Jasmin Coma Scale Verbal: Oriented [place] Coma Scale Motor: Obeys Commands [place] Coma Scale Total: 15 - Psychological Associated symptoms: Normal affect, Normal mood - Skin Skin Temperature: Warm Skin Moisture: Dry Skin Color: Normal Course - Re-evaluation Re-evalutation: 06/09/20 08:26 Patient resting comfortably. Patient is ambulatory in the room not showing any signs of problems with walking. Patient complains of pain over the modi of his right lower leg. Patient does not have any open wounds. - Vital Signs Vital signs: Temp Pulse Resp BP Pulse Ox 98.2 F 84 18 133/80 H 99 06/09/20 07:41 06/09/20 07:41 06/09/20 07:41 06/09/20 07:41 06/09/20 07:41 Discharge - Discharge Clinical Impression: Contusion of skin with surface intact Condition: Stable Disposition: HOME, SELF-CARE Additional Instructions: Contusion Your injury has resulted in a contusion -- a crushing of the deep tissues. No injury to important structures was detected during the physician's exam. Contusions vary in the amount of pain they cause, and in the length of time required for healing. Typically, the area will become bruised, and will remain painful to touch for two or three weeks. However, most patients are back to working and playing within a few days. After the initial period of rest and cold-packs, your symptoms (together with the doctor's recommendations) will determine how rapidly you can get back to full activity. Usually this means "do what feels okay, but don't do things that hurt." If re-examination was recommended, it's important to follow up as instructed. Call the doctor or return any time if pain increases, if swelling becomes severe, if you develop numbness or weakness in an injured extremity, or if any other alarming symptoms occur. Recommend [id number] Tylenol or Advil if needed for pain. Referrals: GIANCARLO CHANCE MD [Primary Care Provider] - Follow up as needed I personally performed the services described in the documentation, reviewed and edited the documentation which was dictated to the scribe in my presence, and it accurately records my words and actions.
[2020-06-09 09:14] VITALS: BP 111/63
== END 2020-06-09 09:14 | disposition home or self-care (01) ==
LOC: ER 07:26
DX: T14.8XXA Other injury of unspecified body region, initial encounter (principal); M79.662 Pain in left lower leg; W20.8XXA Other cause of strike by thrown, projected or falling object, initial encounter; J45.909 Unspecified asthma, uncomplicated; Z87.891 Personal history of nicotine dependence
CPT/HCPCS: 99282

== ENCOUNTER 2020-06-13 14:06 | Emergency (ER) | payer MEDICAID ==
[2020-06-13 14:23] VITALS: BP 101/60
--- NOTE | 2020-06-13 14:40 | ER Document Report ---
HPI - HPI Time Seen by Provider: 06/13/20 14:27 Pain Level: Denies Notes: Pt presents with concern for cyst on face that has been there for 3 days. Reports his PCP told him that it would resove on its own. No fevers or other symptoms. - ROS Systems Reviewed and Negative: Yes All other systems reviewed and negative - REPRODUCTIVE Reproductive: DENIES: : - DERM Notes: pimple R jawline Past Medical History - General Information source: Patient - Social History Smoking Status: Never Smoker Chew tobacco use (# tins/day): No Frequency of alcohol use: None Drug Abuse: None Family History: Reviewed & Not Pertinent Pulmonary Medical History: Reports: Hx Asthma, Hx Bronchitis GI Medical History: Reports: Hx Gastroesophageal Reflux Disease, Hx Irritable Bowel - Constipation Musculoskeletal Medical History: Reports Hx Arthritis, Reports Hx Musculoskeletal Trauma Psychiatric Medical History: Reports: Hx Anxiety, Hx Bipolar Disorder, Hx Depression, Hx Personality Disorder, Hx Schizoaffective Disorder, Hx Schizophrenia Traumatic Medical History: Reports: Hx Fractures - Finger fracture Past Surgical History: Reports: Hx Abdominal Surgery, Hx Appendectomy, Hx Cholecystectomy, Hx Orthopedic Surgery - Immunizations Immunizations up to date: Yes Hx Diphtheria, Pertussis, Tetanus Vaccination: Yes - 2012 Hx Pneumococcal Vaccination: 08/23/00 Vertical Provider Document - CONSTITUTIONAL Agree With Documented VS: Yes Exam Limitations: No Limitations General Appearance: WD/WN, No Apparent Distress - INFECTION CONTROL TRAVEL OUTSIDE OF THE [place] IN LAST 30 DAYS: No - HEENT HEENT: Atraumatic - NECK Neck: Normal Inspection - RESPIRATORY Respiratory: No Respiratory Distress - MUSCULOSKELETAL/EXTREMETIES Musculoskeletal/Extremeties: FROM - NEURO Level of Consciousness: Awake, Alert - DERM Integumentary: Warm, Dry Notes: pimple right jawline Course - Re-evaluation Re-evalutation: Pt with pimple to right jawline. Pt worried that it will get into his bloodstream. Pt given reassurance. Will d/c home at this time. - Vital Signs Vital signs: Temp Pulse Resp BP Pulse Ox 98.2 F 79 16 101/60 96 06/13/20 14:22 06/13/20 14:22 06/13/20 14:22 06/13/20 14:22 06/13/20 14:22 Discharge - Discharge Clinical Impression: Skin pimple Condition: Stable Disposition: HOME, SELF-CARE Additional Instructions: Apply warm compress to the area 3 times daily. Tylenol or ibuprofen for any pain or discomfort. Referrals: GIANCARLO CHANCE MD [Primary Care Provider] - Follow up as needed
== END 2020-06-13 14:44 | disposition home or self-care (01) ==
LOC: ER 14:06
DX: R23.8 Other skin changes (principal); J45.909 Unspecified asthma, uncomplicated
CPT/HCPCS: 99282

== ENCOUNTER 2020-06-15 10:51 | Emergency (ER) | payer MEDICAID ==
[2020-06-15 10:55] VITALS: BP 129/86
--- NOTE | 2020-06-15 11:07 | ER Document Report ---
HPI - HPI Patient complains to provider of: puncture wound Time Seen by Provider: 06/15/20 10:59 Onset: Just prior to arrival Onset/Duration: Sudden Pain Level: 0 Context: Patient presents complaining of a thorn puncturing his ankle through the sock. Patient states it was not a [place] but was a weedy vine. Patient said initially he had pain that went up his body but the pain is now resolved. Patient does have a small area of redness to the lateral aspect of the left ankle. Associated Symptoms: Other - Skin puncture wound Exacerbated by: Denies Relieved by: Denies Similar symptoms previously: No Recently seen / treated by doctor: Yes - ROS ROS below otherwise negative: Yes Systems Reviewed and Negative: Yes All other systems reviewed and negative - CONSTITUTIONAL Constitutional: DENIES: Fever - RESPIRATORY Respiratory: DENIES: Coughing - DERM Skin Color: Normal Skin Problems: Abrasion, Puncture Wound Past Medical History - General Information source: Patient - Social History Smoking Status: Never Smoker Frequency of alcohol use: None Drug Abuse: None Occupation: None Family History: Reviewed & Not Pertinent Patient has homicidal ideation: No Pulmonary Medical History: Reports: Hx Asthma, Hx Bronchitis GI Medical History: Reports: Hx Gastroesophageal Reflux Disease, Hx Irritable Bowel - Constipation Musculoskeletal Medical History: Reports Hx Arthritis, Reports Hx Musculoskeletal Trauma Psychiatric Medical History: Reports: Hx Anxiety, Hx Bipolar Disorder, Hx Depression, Hx Personality Disorder, Hx Schizoaffective Disorder, Hx Schizophrenia Traumatic Medical History: Reports: Hx Fractures - Finger fracture Past Surgical History: Reports: Hx Abdominal Surgery, Hx Appendectomy, Hx Cholecystectomy, Hx Orthopedic Surgery - Immunizations Immunizations up to date: Yes Hx Diphtheria, Pertussis, Tetanus Vaccination: Yes - 2012 Hx Pneumococcal Vaccination: 08/23/00 Vertical Provider Document - CONSTITUTIONAL Agree With Documented VS: Yes Exam Limitations: No Limitations General Appearance: WD/WN, No Apparent Distress - INFECTION CONTROL TRAVEL OUTSIDE OF THE [place] IN LAST 30 DAYS: No - HEENT HEENT: Atraumatic, Normocephalic - NECK Neck: Normal Inspection - RESPIRATORY Respiratory: No Respiratory Distress - CARDIOVASCULAR Pulses: Normal: Dorsalis pedis - MUSCULOSKELETAL/EXTREMETIES Musculoskeletal/Extremeties: MAEW, FROM, Non-Tender - NEURO Level of Consciousness: Awake, Alert, Appropriate Motor/Sensory: No Motor Deficit - DERM Integumentary: Warm, Dry Notes: Mildly erythematous small puncture wound abrasion to the lateral aspect of the left ankle, no retained foreign body, no lymphangitis, no tenderness with palpation Course - Re-evaluation Re-evalutation: 06/15/20 11:09 Patient with puncture wound to form. Patient states that he had heard thorns were poisonous and so he got bit concerned that he should get checked out. Patient presently denies any complaints other than a puncture wound to the ankle. - Vital Signs Vital signs: Temp Pulse Resp BP Pulse Ox 98.1 F 85 16 129/86 H 97 06/15/20 11:00 06/15/20 10:55 06/15/20 10:55 06/15/20 10:55 06/15/20 10:55 Discharge - Discharge Clinical Impression: Puncture wound of ankle, left Qualifiers: Encounter type: initial encounter Qualified Code(s): S91.032A - Puncture wound without foreign body, left ankle, initial encounter Condition: Stable Disposition: HOME, SELF-CARE Instructions: Abrasions ([facility]) Additional Instructions: Return immediately for any new or worsening symptoms Followup with your primary care provider, call tomorrow to make a followup appointment Clean area with soap and water, monitor for any worsening of symptoms such as increased redness, streaks, fever or any concerning new symptoms Referrals: GIANCARLO CHANCE MD [Primary Care Provider] - Follow up as needed
== END 2020-06-15 11:06 | disposition home or self-care (01) ==
LOC: ER 10:51
DX: S91.032A Puncture wound without foreign body, left ankle, initial encounter (principal); W60.XXXA Contact with nonvenomous plant thorns and spines and sharp leaves, initial encounter; J45.909 Unspecified asthma, uncomplicated
CPT/HCPCS: 99282

== ENCOUNTER → 2020-07-03 | Outpatient (CLI) | payer MEDICAID ==
--- NOTE | 2020-07-03 10:16 | RADIOLOGY REPORT (SQ) ---
EXAM DESCRIPTION: ABDOMEN 2 VIEWS IMAGES COMPLETED DATE/TIME: 07/03/2020 10:06 am REASON FOR STUDY: GENERALIZED ABDOMINAL PAIN R10.84 GENERALIZED ABDOMINAL PAIN COMPARISON: 03/15/2020 NUMBER OF VIEWS: Two views. TECHNIQUE: Supine and erect/decubitus radiographic images of the abdomen acquired. LIMITATIONS: None. FINDINGS: FREE AIR: None. No abnormal gas collections. LUNG BASES: Clear. BOWEL GAS PATTERN: Nonspecific gas pattern. Mildly dilated loop of small bowel along the left mechelle lic gutter. This is nonspecific. CALCIFICATIONS: No suspicious calcifications. SOFT TISSUES: No gross mass or suggestion of organomegaly. HARDWARE: None in the abdomen. BONES: No acute fracture. No worrisome bone lesions. OTHER: No other significant finding. IMPRESSION: Nonspecific gas pattern. Single moved mildly dilated loop of small bowel in the left pe ricolic gutter could represent focal ileus. If symptoms persist further evaluation with CT may be be neficial to exclude underlying inflammatory or infectious process. TECHNICAL DOCUMENTATION: JOB ID: [id number] 2010 [employer]- All Rights Reserved Reading location - IP/workstation name: [email or web address]
--- OUTSIDE RECORDS SUMMARY | 2020-07-04 18:24 | XMS REPORT ---
:1985 [facility] [address] [place] [address] Care Team Providers Name Role Phone Olvin Lamb Primary Care Physician Unavailable Allergies, Adverse Reactions, Alerts This patient has no known allergies or adverse reactions. Medications Ordered Filled Start Stop Current Ordering Indication Dosage Frequency Signature Comments Components Medication Medication Date Date Medication? Clinician (SIG) Name Name Fioricet 2019- No 6xD 1 capsule 50-300-40 4-29 05-09 as needed MG 00:00: 00:00 Orally 00 :00 every 4 hrs Megestrol 2019- No BID 1 tablet Acetate 20 3-30 04-29 Orally MG 00:00: 00:00 Twice a 00 :00 day Flonase 2019-0 Yes QD 1 spray in Allergy 2-21 each Relief 50 00:00: nostril MCG/ACT 00 Nasally Once a day SEROquel 50 2019- Yes 50MG Take 1/2 MG Oral 1-23 to 1 mg TABLET 00:00: QHS 00 Abilify 5 2019-0 Yes 5MG Take one MG Oral 1-23 daily TABLET 00:00: 00 Symbicort 2018-08- No BID 2 puffs 160-4.5 0-10 01-18 Inhalation MCG/ACT 00:00: 00:00 Twice a 00 :00 day PredniSONE 2018-08- No as 5 MG (21) 0-06-18 directed 00:00: 00:00 Orally as 00 :00 directed Penicillin 2019- No BID 1 tablet V Potassium 05-09- Orally 250 MG 00:00: 00:00 Twice a 00 :00 day Ventolin No QID 2 puffs as HFA 108 (90 6-03 needed Base) 00:00: Inhalation MCG/ACT 00 every 6 hrs Chlorphenir No QID 1 tablet amine 7-17 as needed Maleate 4 00:00: Orally mg 00 every 6 hrs Prilosec 20 Yes QD 1 capsule MG 1-09 Orally 00:00: Once a day 00 budesonide/ Yes Inhale. Inhale . formoterol fumarate (SYMBICORT INHL) ALBUTEROL Yes Inhale. Inhale. INHL ProAir HFA Yes 6xD 2 puffs as 108 (90 needed Base) Inhalation MCG/ACT every 4 hrs Symbicort Yes BID 2 puffs 160-4.5 Inhalation MCG/ACT Twice a day Risperdal 1 Yes QD 1 tablet MG Orally Once a day Flovent HFA No BID 1 puff 220 MCG/ACT Inhalation Twice a day albuterol No 2puff(s Q4H albuterol sulfate 90 ) sulfate 90 mcg/actuati mcg/actuat on breath ion breath activated activated powder powder inhaler inhaler Inhale 2 Inhale 2 puffs every puffs 4 hours by every 4 inhalation hours by route. inhalation route. 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 05-14 ia 00:00: 00 Bipolar Concern Active disord, 05-14 crnt 00:00: episode 00 manic w/o psych features, mod Seasonal Seasonal [id number] Inactiv 2020-04-[address] allergic allergic e 04-28 12:01:20 Asses smen rhinitis rhinitis 00:00: t & Pl an: 00 No signs/sy m ptoms of asthma exacerba t ion - Continue supporti v e care - Maintain hydratio n - Recommen d he consider otc antihist a mine or nasal spray - Advised when to seek emergenc y care and when to notify his PCP office for failure to respond to the above treatmen t Bloating Bloating [id number] Inactiv 2020-04-[address] e 04-28 12:05:07 Assessm en 00:00: t & Plan : 00 Recurren t - Recommen d supporti v e care - Answered his question s regardin g possible etiology and treatmen t - Advise d when to seek emergenc y care and when to notify his PCP office for failure to respond to the above treatmen t - Declines evaluati o n for COVID 19 Inflammator Oral Problem Active y condition mucositis 6-16 of oral (ulcerative 00:00: mucous ), 00 membrane unspecified Stomatitis Other forms Problem Active of 6-06 stomatitis 00:00: 00 Acute Acute Problem Active maxillary maxillary 4-25 sinusitis sinusitis, 00:00: unspecified 00 Anorexia Anorexia Problem Active 3-30 00:00: 00 Essential Essential Problem Active hypertensio (primary) 1-28 n hypertensio 00:00: n 00 Normal body Body mass Problem Active 2018-08 mass index index (BMI) 2-30 20.0-20.9, 00:00: adult 00 Normal body Body mass Problem Active 2018-08 mass index index (BMI) 1-24 21.0-21.9, 00:00: adult 00 Dental Dental Problem Active 2018-08 caries on caries on 1-05 smooth smooth 00:00: surface surface 00 penetrating penetrating into pulp into pulp Normal body Body mass Problem Active 2018-08 mass index index (BMI) 0-24 22.0-22.9, 00:00: adult 00 Paranoid Paranoid Problem Active schizophren Schizophren 6-19 ia ia 00:00: 00 Anxiety Anxiety Problem Active 6 00:00: 00 Chronic Chronic Problem Active mental Mental 6-19 disorder Disorder 00:00: 00 Asthma Asthma Problem Active 02-08 00:00: 00 Injury of Injury of Problem Active upper arm Upper Arm 619 00:00: 00 Homeless Homeless Problem Active 02-08 00:00: 00 Sexually Encounter Problem Active 2016-08 transmitted for 09-19 infectious screening 00:00: disease for 00 infections with a predominant ly sexual mode of transmissio n Fatigue Other Problem Active 2016-08 fatigue 09-19 00:00: 00 Uncomplicat Moderate Problem Active ed moderate persistent 7- persistent asthma, 00:00: asthma uncomplicat 00 ed Schizoaffec Schizoaffec Problem Active 2015-08 tive tive 2-25 disorder disorder, 00:00: unspecified 00 Otitis Otitis Problem Active 2015-08 externa of externa in 0-20 left ear other 00:00: diseases 00 classified elsewhere, left ear Otitis Otitis Problem Active 2015-08 externa externa in 0-20 other 00:00: diseases 00 classified elsewhere, unspecified ear Mild Mild Problem Active intermitten intermitten 10-20 t asthma t asthma, 00:00: uncomplicat 00 ed 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 ,bronchial 08-23 without ,intrinsic 00:00: status 00 asthmaticus Chronic Schizoaffec Problem Active 2013-08 schizoaffec tive 08-23 tive disorder, 00:00: schizophren chronic 00 ia Not on file Not on file [id number] Simple schizophren Problem Active schizophren ia ,simple ia Asthma Asthma, Problem Active without unspecified status , asthmaticus unspecified status Procedures Procedure Date / Time Performed Performing Clinician Devic e RADIOLOGIC EXAM ELBOW 3 VIEWS 2019-04-04 00:00:00 RADIOLOGIC EXAM ELBOW 3 VIEWS 2019-03-01 00:00:00 RADIOLOGIC EXAM ELBOW 3 VIEWS 2019-02-08 00:00:00 Cholecystectomy Results Test Description Test Time Test Comments Text Results Atomic Results Result Comments HERPES SIMPLEX VIRUS,PCR 2020-02-06 00:00:00 Test Item Value Reference Range Comments HERPESSIMPLEXVIRUS,PCR (test code = HERPESSIMPLEXVIRUS,PCR) Nega tive NEGATIVE SOURCE (test code = SOURCE) . LAB [id number] 00:00:00 Test Item Value Reference Range Comments PDF (test code = PDF) LAB CBC + AUTOMATED [id number] 00:00:00 Test Item Value Reference Range Comments WBC (test code = WBC) 2.4 4.2-11.8 RBC (test code = RBC) 5.45 4.4-5.8 HEMOGLOBIN (test code = HEMOGLOBIN) 14.8 13.1-17.1 HEMATOCRIT (test code = HEMATOCRIT) 45 40-50.4 MCV (test code = MCV) 82 80.8-97.4 MCH (test code = MCH) 27.1 26.6-33.0 MCHC (test code = MCHC) 33.0 32-34.9 RDW (test code = RDW) 14.6 11.8-15.5 PLATELET (test code = PLATELET) 205 147-365 MPV (test code = MPV) 9.53 6.00-12.00 SEGMENTED% (test code = SEGMENTED%) 34.0 43.7-73.5 SEGMENTED# (test code = SEGMENTED#) 0.8 1.9-7.5 LYMPHOCYTES% (test code = LYMPHOCYTES%) 34.63 17.9-45. 1 LYMPHOCYTES# (test code = LYMPHOCYTES#) 0.8 1-4 MONOCYTES% (test code = MONOCYTES%) 7.7 3.8-10 MONOCYTES# (test code = MONOCYTES#) 0.2 0.2-0.9 EOSINOPHILS% (test code = EOSINOPHILS%) 21.45 0.0-6.1 EOSINOPHILS# (test code = EOSINOPHILS#) 0.51 0.0-0.5 BASOPHILS% (test code = BASOPHILS%) 2.20 0.0-0.9 BASOPHILS# (test code = BASOPHILS#) 0.05 0.0-0.1 [facility] [id number] 00:00:00 Test Item Value Reference Range Comments SODIUM (test code = SODIUM) 143 136-145 POTASSIUM (test code = POTASSIUM) 4.3 3.5-5.1 CHLORIDE (test code = CHLORIDE) 105 98-107 CARBONDIOXIDE (test code = CARBONDIOXIDE) 27.0 17-32 GLUCOSE (test code = GLUCOSE) 77 70-99 BUN (test code = BUN) 13 7-25 CREATININESERUM (test code = CREATININESERUM) 0.98 0. 7-1.3 BUN/CREATININERATIO (test code = BUN/CREATININERATIO) 13 8-28 BILIRUBIN,Total (test code = BILIRUBIN,Total) 2.1 0. 2-1.0 CALCIUM (test code = CALCIUM) 9.2 8.6-10.5 PROTEINTOTAL (test code = PROTEINTOTAL) 7.2 6.6-8.2 ALBUMIN (test code = ALBUMIN) 4.7 3.5-5.7 ALK.PHOSPHATASE (test code = ALK.PHOSPHATASE) 69 34 -104 ALT(SGPT) (test code = ALT(SGPT)) 5 7-52 AST(SGOT) (test code = AST(SGOT)) 12 11-39 GLOBULIN (test code = GLOBULIN) 2.5 1.8-4.0 A/GRATIO (test code = A/GRATIO) 1.9 0.8-2.7 GLOMERULARFILT.RATE (test code = GLOMERULARFILT.RATE) 93 >60 LIPID [id number] 00:00:00 Test Item Value Reference Range Comments CHOLESTEROL (test code = CHOLESTEROL) 220 <200 TRIGLYCERIDES (test code = TRIGLYCERIDES) 72 10-149 HDLCHOLESTEROL (test code = HDLCHOLESTEROL) 70 40-1 99 LDL/HDLRATIO (test code = LDL/HDLRATIO) 1.94 0.00-4.9 7 LDLCHOLESTEROL,calc. (test code = 136 <100 LDLCHOLESTEROL,calc.) VLDLCHOLESTEROL,calc. (test code = 14 5-40 VLDLCHOLESTEROL,calc.) CHOLESTEROL/HDLRATIO (test code = 3.14 2.00-5.00 CHOLESTEROL/HDLRATIO) NON-HDLCHOLESTEROL (test code = NON-HDLCHOLESTEROL) 150 0-159 URIC [id number] 00:00:00 Test Item Value Reference Range Comments URICACID (test code = URICACID) 6.2 4.4-7.6 TSH + FREE [id number] 00:00:00 Test Item Value Reference Range Comments [id number] (test code = [id number]) 0.796 0.340-4.410 FREET4 (test code = FREET4) 0.73 0.61-1.12 LAB [id number] 00:00:00 Test Item Value Reference Range Comments PDF (test code = PDF) LAB CBC + AUTOMATED [id number] 00:00:00 Test Item Value Reference Range Comments WBC (test code = WBC) 3.5 4.2-11.8 RBC (test code = RBC) 5.33 4.4-5.8 HEMOGLOBIN (test code = HEMOGLOBIN) 14.2 13.1-17.1 HEMATOCRIT (test code = HEMATOCRIT) 44 40-50.4 MCV (test code = MCV) 82 80.8-97.4 MCH (test code = MCH) 26.6 26.6-33.0 MCHC (test code = MCHC) 32.6 32-34.9 RDW (test code = RDW) 14.6 11.8-15.5 PLATELET (test code = PLATELET) 248 147-365 MPV (test code = MPV) 9.86 6.00-12.00 SEGMENTED% (test code = SEGMENTED%) 25.7 43.7-73.5 SEGMENTED# (test code = SEGMENTED#) 0.9 1.9-7.5 LYMPHOCYTES% (test code = LYMPHOCYTES%) 42.82 17.9-45. 1 LYMPHOCYTES# (test code = LYMPHOCYTES#) 1.5 1-4 MONOCYTES% (test code = MONOCYTES%) 9.7 3.8-10 MONOCYTES# (test code = MONOCYTES#) 0.3 0.2-0.9 EOSINOPHILS% (test code = EOSINOPHILS%) 20.81 0.0-6.1 EOSINOPHILS# (test code = EOSINOPHILS#) 0.73 0.0-0.5 BASOPHILS% (test code = BASOPHILS%) 0.93 0.0-0.9 BASOPHILS# (test code = BASOPHILS#) 0.03 0.0-0.1 COMPREHENSIVE [id number] 00:00:00 Test Item Value Reference Range Comments SODIUM (test code = SODIUM) 143 136-145 POTASSIUM (test code = POTASSIUM) 3.9 3.5-5.1 CHLORIDE (test code = CHLORIDE) 104 98-107 CARBONDIOXIDE (test code = CARBONDIOXIDE) 28.0 17-32 GLUCOSE (test code = GLUCOSE) 63 70-99 BUN (test code = BUN) 17 7-25 CREATININESERUM (test code = CREATININESERUM) 1.03 0. 7-1.3 BUN/CREATININERATIO (test code = BUN/CREATININERATIO) 17 8-28 BILIRUBIN,Total (test code = BILIRUBIN,Total) 1.2 0. 2-1.0 CALCIUM (test code = CALCIUM) 9.4 8.6-10.5 PROTEINTOTAL (test code = PROTEINTOTAL) 6.8 6.6-8.2 ALBUMIN (test code = ALBUMIN) 4.4 3.5-5.7 ALK.PHOSPHATASE (test code = ALK.PHOSPHATASE) 79 34 -104 ALT(SGPT) (test code = ALT(SGPT)) 7 7-52 AST(SGOT) (test code = AST(SGOT)) 17 11-39 GLOBULIN (test code = GLOBULIN) 2.4 1.8-4.0 A/GRATIO (test code = A/GRATIO) 1.8 0.8-2.7 GLOMERULARFILT.RATE (test code = GLOMERULARFILT.RATE) 87 >60 LIPID [id number] 00:00:00 Test Item Value Reference Range Comments CHOLESTEROL (test code = CHOLESTEROL) 195 <200 TRIGLYCERIDES (test code = TRIGLYCERIDES) 109 10-149 HDLCHOLESTEROL (test code = HDLCHOLESTEROL) 60 40-1 99 LDL/HDLRATIO (test code = LDL/HDLRATIO) 1.88 0.00-4.9 7 LDLCHOLESTEROL,calc. (test code = 113 <100 LDLCHOLESTEROL,calc.) VLDLCHOLESTEROL,calc. (test code = 22 5-40 VLDLCHOLESTEROL,calc.) CHOLESTEROL/HDLRATIO (test code = 3.25 2.00-5.00 CHOLESTEROL/HDLRATIO) NON-HDLCHOLESTEROL (test code = NON-HDLCHOLESTEROL) 135 0-159 URIC [id number] 00:00:00 Test Item Value Reference Range Comments URICACID (test code = URICACID) 4.2 4.4-7.6 [id number] 00:00:00 Test Item Value Reference Range Comments COLOR (test code = COLOR) YELLOW YELLOW CLARITY (test code = CLARITY) CLEAR CLEAR SPECIFICGRAVITY (test code = SPECIFICGRAVITY) 1.014 1. 005-1.025 pH (test code = pH) 5.0 5.0-8.5 URINEPROTEIN (test code = URINEPROTEIN) NEGATIVE NEGATIVE URINEGLUCOSE (test code = URINEGLUCOSE) NEGATIVE NEGATIVE URINEKETONE (test code = URINEKETONE) NEGATIVE NEGATIVE URINEBILIRUBIN (test code = URINEBILIRUBIN) NEGATIVE NEGA TIVE URINEBLOOD (test code = URINEBLOOD) NEGATIVE NEGATIVE URINENITRITE (test code = URINENITRITE) NEGATIVE NEGATIVE UROBILINOGEN (test code = UROBILINOGEN) 0.2 0.2-1.0 LEUKOCYTE (test code = LEUKOCYTE) NEGATIVE NEGATIVE *PleaseNote: (test code = *PleaseNote:) MICROALBUMIN/CREATINE [id number] 00:00:00 Test Item Value Reference Range Comments MICROALB/CREATRATIO (test code = 09309-8) 5 0-29 CREATININE,URINE (test code = CREATININE,URINE) 259 20-300 TSH + FREE [id number] 00:00:00 Test Item Value Reference Range Comments [id number] (test code = [id number]) 3.254 0.340-4.410 FREET4 (test code = FREET4) 0.89 0.61-1.12 LAB [id number] 00:00:00 Test Item Value Reference Range Comments PDF (test code = PDF) LAB [id number] 02:48:00 Test Item Value Reference Range Comments ALT (test code = 6020-2) 6 U/L [id number] 02:48:00 Test Item Value Reference Range Comments AST (test code = 20371-4) 17 U/L [id number] 02:48:00 Test Item Value Reference Range Comments Albumin (test code = 1747-5) 4.3 g/dL [id number] 02:48:00 Test Item Value Reference Range Comments Cholesterol (test code = 2093-3) 199 mg/dL [id number] 02:48:00 Test Item Value Reference Range Comments Triglyceride (test code = 3043-7) 85 mg/dL [id number] 02:48:00 Test Item Value Reference Range Comments HDL (test code = 2085-9) 66 mg/dL [id number] 02:48:00 Test Item Value Reference Range Comments Iron (test code = 2498-4) 56 ug/dL [id number] 02:48:00 Test Item Value Reference Range Comments Homocysteine (test code = 2428-1) 16.3 umol/L [id number] 02:48:00 Test Item Value Reference Range Comments RPR (test code = 95731-4) NONREACTIVE M/mm3 [id number] 02:48:00 Test Item Value Reference Range Comments Folate (test code = 2282-2) 12.6 ng/mL [id number] 02:48:00 Test Item Value Reference Range Comments Ph (test code = 25994-0) 6 [id number] 02:48:00 Test Item Value Reference Range Comments Bilirubin (test code = 60232-3) Negative [id number] 02:48:00 Test Item Value Reference Range Comments Ketones (test code = 84547-5) Negative [id number] 02:48:00 Test Item Value Reference Range Comments Protein (test code = 86768-2) Negative [id number] 02:48:00 Test Item Value Reference Range Comments Urobilinogen (test code = 3107-0) Negative [id number] 02:48:00 Test Item Value Reference Range Comments Blood (test code = 882-1) Negative Red Blood [id number] 02:48:00 Test Item Value Reference Range Comments Red Blood Cell (test code = 1007-4) 1 /HPF [id number] 02:48:00 Test Item Value Reference Range Comments Glucose (test code = 1558-6) Negative mg/dL [id number] 02:48:00 Test Item Value Reference Range Comments Chloride (test code = 2069-3) 108 mmol/L Huavkphfog9218-01-03 02:48:00 Test Item Value Reference Range Comments Creatinine (test code = 98237-6) 1.0 mg/dL [id number] 02:48:00 Test Item Value Reference Range Comments eGFR (test code = 31352-1) JOHNY: 90.3 AA: 109.4 Ssynymn3950-75-69 02:48:00 Test Item Value Reference Range Comments Calcium (test code = 45150-2) 9.4 mg/dL Skgqmwnrplm3515-79-33 22:37:00 Test Item Value Reference Range Comments Amphetamine (test code = 84367-6) Not Detected [id number] 22:37:00 Test Item Value Reference Range Comments Gabapentin (test code = 9738-6) Not Detected Micndehm5642-05-21 22:37:00 Test Item Value Reference Range Comments Fentanyl (test code = 98481-2) Not Detected [id number] 22:37:00 Test Item Value Reference Range Comments Tramadol (test code = 16451-1) Not Detected 1-Itvgbcymfbqlfnn9756-23Qkzpiglwbvdxrdc0931-44-31 22:37:00 Test Item Value Reference Range Comments 7-Aminoclonazepam (test code = 22466-4) Not Detected Clnbvfldszh3502-07-89 22:37:00 Test Item Value Reference Range Comments Nordiazepam (test code = 32082-5) Not Detected Tpkjqxwc0845-90-73 22:37:00 Test Item Value Reference Range Comments Oxazepam (test code = 77641-7) Not Detected Lslnothfjiigy4199-52-92 22:37:00 Test Item Value Reference Range Comments Buprenorphine (test code = 3414-0) Not Detected Ethyl Oqddbzrxoor5150-12-17 22:37:00 Test Item Value Reference Range Comments Ethyl Glucuronide (test code = 24693-0) Not Detected Xkchyuhkm8413-05-03 22:37:00 Test Item Value Reference Range Comments Methadone (test code = 3773-9) Not Detected [id number] 22:37:00 Test Item Value Reference Range Comments Codeine (test code = 39995-9) Not Detected [id number] 22:37:00 Test Item Value Reference Range Comments pH (test code = 92662-8) 6.0 U/L Riytbjevpkx1739-59-01 22:37:00 Test Item Value Reference Range Comments Hydrocodone (test code = 93701-5) Not Detected Yfqafucahdwkc1125-32-01 22:37:00 Test Item Value Reference Range Comments Hydromorphone (test code = 9834-3) Not Detected Mmnvyamkm6276-70-61 22:37:00 Test Item Value Reference Range Comments Oxycodone (test code = 42651-0) Not Detected Npxvtrqutdj7524-52-52 22:37:00 Test Item Value Reference Range Comments Oxymorphone (test code = 98271-8) Not Detected Rtngqnvpwrwuq4402-66-74 22:37:00 Test Item Value Reference Range Comments Phencyclidine (test code = 8234-7) Not Detected Yurcvaiztunkdes6869-31-99 22:37:00 Test Item Value Reference Range Comments Benzoylecgonine (test code = 8187-7) Not Detected Nzroswpy1979-78-19 21:14:00 Test Item Value Reference Range Comments Tramadol (test code = 72540-6) Not Detected 4-Qnvpoxwlcafglrn7217-09Gyimkrsygigxjsg7626-35-18 21:14:00 Test Item Value Reference Range Comments 7-Aminoclonazepam (test code = 96554-2) Not Detected Pzioblgugue0262-10-81 21:14:00 Test Item Value Reference Range Comments Nordiazepam (test code = 60400-7) Not Detected Bpcctont8246-51-34 21:14:00 Test Item Value Reference Range Comments Oxazepam (test code = 57639-7) Not Detected Ztqkjjqeadzwe6660-96-26 21:14:00 Test Item Value Reference Range Comments Buprenorphine (test code = 3414-0) Not Detected Ethyl Qfwrjtferrj7993-58-14 21:14:00 Test Item Value Reference Range Comments Ethyl Glucuronide (test code = 50408-2) Not Detected Uanxszytx0386-73-59 21:14:00 Test Item Value Reference Range Comments Methadone (test code = 3773-9) Not Detected Mbxrlrq2537-23-69 21:14:00 Test Item Value Reference Range Comments Codeine (test code = 69687-8) Not Detected [id number] 21:14:00 Test Item Value Reference Range Comments pH (test code = 84356-3) 6.0 U/L Dgehtlnchlk6176-26-58 21:14:00 Test Item Value Reference Range Comments Hydrocodone (test code = 52309-3) Not Detected Bxbogyxkuqvwe1755-79-78 21:14:00 Test Item Value Reference Range Comments Hydromorphone (test code = 9834-3) Not Detected Roeebfeep8388-39-55 21:14:00 Test Item Value Reference Range Comments Oxycodone (test code = 99937-7) Not Detected Wjvzrpsdyyn4700-32-31 21:14:00 Test Item Value Reference Range Comments Oxymorphone (test code = 67176-3) Not Detected Htvxxymhscjck6972-59-16 21:14:00 Test Item Value Reference Range Comments Phencyclidine (test code = 8234-7) Not Detected Ffeomntsitskhdm0263-77-78 21:14:00 Test Item Value Reference Range Comments Benzoylecgonine (test code = 8187-7) Not Detected Yulxpwfsgng5639-47-80 21:14:00 Test Item Value Reference Range Comments Amphetamine (test code = 85403-8) Not Detected Avxslvbbmz1623-48-50 21:14:00 Test Item Value Reference Range Comments Gabapentin (test code = 9738-6) Not Detected Glsisahj1737-42-73 21:14:00 Test Item Value Reference Range Comments Fentanyl (test code = 50959-8) Not Detected Assessments Condition Name Status Diagnosis Date Treating Clinici an - Moderate persistent asthma, Active Oj ebuoboh, [place] uncomplicated J45.40 - Chest pain, unspecified R07.9 Active Ojebuoboh, [place] - Moderate persistent asthma, Active Oj ebuoboh, [place] uncomplicated J45.40 - Schizoaffective disorder, Active Ojeb uoboh, [place] unspecified F25.9 - Moderate persistent asthma, Active Oj ebuoboh, [place] uncomplicated J45.40 - Moderate persistent asthma, Active Oj ebuoboh, [place] uncomplicated J45.40 - Schizoaffective disorder, Active Ojeb uoboh, [place] unspecified F25.9 - Schizoaffective disorder, Active Ojeb uoboh, [place] unspecified F25.9 - Oral mucositis (ulcerative), Active O jebuoboh, [place] unspecified K12.30 - Moderate persistent asthma, Active Oj ebuoboh, [place] uncomplicated J45.40 - Schizoaffective disorder, Active Ojeb uoboh, [place] unspecified F25.9 - Moderate persistent asthma, Active Oj ebuoboh, [place] uncomplicated J45.40 - Schizoaffective disorder, Active Ojeb uoboh, [place] unspecified F25.9 - Moderate persistent asthma, Active Oj ebuoboh, [place] uncomplicated J45.40 - Schizoaffective disorder, Active Ojeb uoboh, [place] unspecified F25.9 - Hemorrhage of anus and rectum K62.5 Active Ojebuoboh, [place] - Moderate persistent asthma, Active Oj ebuoboh, [place] uncomplicated J45.40 - Schizoaffective disorder, Active Ojeb uoboh, [place] unspecified F25.9 - Essential (primary) hypertension I10 Active Ojebuoboh, [place] - Moderate persistent asthma, Active Oj ebuoboh, [place] uncomplicated J45.40 - Essential (primary) hypertension I10 Active Ojebuoboh, [place] - Moderate persistent asthma, Active Oj ebuoboh, [place] uncomplicated J45.40 - Moderate persistent asthma, Active Oj ebuoboh, [place] uncomplicated J45.40 - Essential (primary) hypertension I10 Active Ojebuoboh, [place] - Schizoaffective disorder, Active Ojeb uoboh, [place] unspecified F25.9 - Headache R51 Active Ojebuoboh, [place] - Moderate persistent asthma, Active Oj ebuoboh, [place] uncomplicated J45.40 - Schizoaffective disorder, Active Ojeb uoboh, [place] unspecified F25.9 - Schizoaffective disorder, Active Ojeb uoboh, [place] unspecified F25.9 - Moderate persistent asthma, Active Oj ebuoboh, [place] uncomplicated J45.40 - Chest pain, unspecified R07.9 Active Ojebuoboh, [place] - Moderate persistent asthma, Active Oj ebuoboh, [place] uncomplicated J45.40 - Schizoaffective disorder, Active Ojeb uoboh, [place] unspecified F25.9 - Other forms of stomatitis K12.1 Active Ojebuoboh, [place] - Moderate persistent asthma, Active Oj ebuoboh, [place] uncomplicated J45.40 - Schizoaffective disorder, Active Ojeb uoboh, [place] unspecified F25.9 - Anorexia R63.0 Active Ojebuoboh, [place] - Schizoaffective disorder, Active Ojeb uoboh, [place] unspecified F25.9 - Moderate persistent asthma, Active Oj ebuoboh, [place] uncomplicated J45.40 - Moderate persistent asthma, Active Oj ebuoboh, [place] uncomplicated J45.40 - Schizoaffective disorder, Active Ojeb uoboh, [place] unspecified F25.9 - Moderate persistent asthma, Active Oj ebuoboh, [place] uncomplicated J45.40 - Schizoaffective disorder, Active Ojeb uoboh, [place] unspecified F25.9 - Moderate persistent asthma, Active Oj ebuoboh, [place] uncomplicated J45.40 - Schizoaffective disorder, Active Ojeb uoboh, [place] unspecified F25.9 - Moderate persistent asthma, Active Oj ebuoboh, [place] uncomplicated J45.40 - Acute maxillary sinusitis, Active Oje buoboh, [place] unspecified J01.00 - Moderate persistent asthma, Active Oj ebuoboh, [place] uncomplicated J45.40 - Moderate persistent asthma, Active Oj ebuoboh, [place] uncomplicated J45.40 - Schizoaffective disorder, Active Ojeb uoboh, [place] unspecified F25.9 - Acute maxillary sinusitis, Active Oje buoboh, [place] unspecified J01.00 - Schizoaffective disorder, Active Ojeb uoboh, [place] unspecified F25.9 - Moderate persistent asthma, Active Oj ebuoboh, [place] uncomplicated J45.40 - Moderate persistent asthma, Active Oj ebuoboh, [place] uncomplicated J45.40 - Schizoaffective disorder, Active Ojeb uoboh, [place] unspecified F25.9 - Moderate persistent asthma, Active Oj ebuoboh, [place] uncomplicated J45.40 - Schizoaffective disorder, Active Ojeb uoboh, [place] unspecified F25.9 - Essential (primary) hypertension I10 Active Ojebuoboh, [place] - Moderate persistent asthma, Active Oj ebuoboh, [place] uncomplicated J45.40 - Body mass index (BMI) 20.0-20.9, Active [place]uoboh, [place] adult Z68.20 - Moderate persistent asthma, Active Oj ebuoboh, [place] uncomplicated J45.40 - Body mass index (BMI) 20.0-20.9, Active [place], [place] adult Z68.20 - Moderate persistent asthma, Active Oj ebuoboh, [place] uncomplicated J45.40 - Body mass index (BMI) 20.0-20.9, Active [place]oh, [place] adult Z68.20 - Moderate persistent asthma, Active Oj ebuoboh, [place] uncomplicated J45.40 - Schizoaffective disorder, Active Ojeb uoboh, [place] unspecified F25.9 - Moderate persistent asthma, Active Oj ebuoboh, [place] uncomplicated J45.40 - Body mass index (BMI) 21.0-21.9, Active [place], [place] adult Z68.21 - Schizoaffective disorder, Active Ojeb uoboh, [place] unspecified F25.9 - Dental caries on smooth surface Active [place]oh, [place] penetrating into pulp K02.63 - Moderate persistent asthma, Active Oj ebuoboh, [place] uncomplicated J45.40 - Moderate persistent asthma, Active Oj ebuoboh, [place] uncomplicated J45.40 - Body mass index (BMI) 22.0-22.9, Active [place]oh, [place] adult Z68.22 - Schizoaffective disorder, Active Ojeb uoboh, [place] unspecified F25.9 Injury of upper arm Active 2019-04-04 14:48:25 Fracture of radial head Active 2019-04-04 15:17:09 Injury of upper arm Active 2019-03-01 09:33:56 Fracture of radial head Active 2019-03-01 09:48:07 Injury of upper arm Active 2019-02-08 10:03:30 Fracture of radial head Active 2019-02-08 10:34:31 - Moderate persistent asthma, Active Oj ebuoboh, [place] uncomplicated J45.40 - Schizoaffective disorder, Active Ojeb uoboh, [place] unspecified F25.9 - Moderate persistent asthma, Active Oj ebuoboh, [place] uncomplicated J45.40 - Schizoaffective disorder, Active Ojeb uoboh, [place] unspecified F25.9 - Pneumonia, unspecified organism Active Ojebuoboh, [place] J18.9 - Moderate persistent asthma, Active Oj ebuoboh, [place] uncomplicated J45.40 - Moderate persistent asthma, Active Oj ebuoboh, [place] uncomplicated J45.40 - Schizoaffective disorder, Active Ojeb uoboh, [place] unspecified F25.9 - Moderate persistent asthma, Active Oj ebuoboh, [place] uncomplicated J45.40 - Gastrointestinal hemorrhage, Active O jebuoboh, [place] unspecified K92.2 - Moderate persistent asthma, Active Oj ebuoboh, [place] uncomplicated J45.40 - Moderate persistent asthma, Active Oj ebuoboh, [place] uncomplicated J45.40 - Moderate persistent asthma, Active Oj ebuoboh, [place] uncomplicated J45.40 - Encounter for screening for Active Oj ebuoboh, [place] infections with a predominantly sexual mode of transmission Z11.3 - Other fatigue R53.83 Active Ojebuoboh , [place] - Moderate persistent asthma, Active Oj ebuoboh, [place] uncomplicated J45.40 - Moderate persistent asthma, Active Oj ebuoboh, [place] uncomplicated J45.40 - Mild intermittent asthma, Active Ojeb uoboh, [place] uncomplicated J45.20 - Otitis externa in other diseases Active O[place]ebuoboh, [place] classified elsewhere, left ear H62.42 - Mild intermittent asthma, Active Ojeb uoboh, [place] uncomplicated J45.20 - Schizoaffective disorder, Active Ojeb uoboh, [place] unspecified F25.9 - Mild persistent asthma, Active Ojebuo boh, [place] uncomplicated J45.30 - Mild intermittent asthma, Active Ojeb uoboh, [place] uncomplicated J45.20 - Asthma, unspecified, unspecified Active O[place]ebuoboh, [place] status 493.90 - Asthma, unspecified, unspecified Active O[place]uoboh, [place] status 493.90 - Asthma, unspecified, unspecified Active [place]oh, [place] status 493.90 - Asthma, unspecified, unspecified Active [place]ebuoboh, [place] status 493.90 - Dental caries extending into dentine Active O[place]ebuoboh, [place] 521.02 - Asthma, unspecified, unspecified Active [place]eb[place]oh, [place] status 493.90 - Cellulitis and abscess of Active Ojeb uoboh, [place] unspecified site 682.9 - Asthma, unspecified, unspecified Active [place]oboh, [place] status 493.90 - Asthma, unspecified, unspecified Active O[place]eb[place]oh, [place] status 493.90 - schizophrenia ,simple 295.00 Active O jebuoboh, [place] - Asthma, unspecified, unspecified Active Ojebuoboh, [place] status 493.90 - schizophrenia ,simple 295.00 Active O jebuoboh, [place] - Asthma, unspecified, unspecified Active Ojebuoboh, [place] status 493.90 - Asthma, unspecified, unspecified Active O[place]oh, [place] status 493.90 - Asthma, unspecified, unspecified Active [place]ebuoboh, [place] status 493.90 - Diagnostic skin and sensitization Active Ojebuoboh, [place] tests V72.7 - Diagnostic skin and sensitization Active Ojebuoboh, [place] tests V72.7 Encounters Start End Encounter Admission Attending Care Care Encounter Date/Time Date/Time Type Type Clinicians Facility Department ID 2020-05-14 2020-05-14 Eval & Mgt [facility] [id number] 15:00:00 15:20:00 visit for Services Services [id number] 2 estab pt [id number] expanded c7a 2020-04-28 2020-04-28 Outpatient [facility] [id number] 17:35:11 17:37:26 [id number] 2020-04-28 2020-04-28 Outpatient [facility] [id number] 12:00:00 12:20:00 2020-04-28 2020-04-28 Outpatient [facility] [id number] 00:00:00 00:00:00 [id number] 2020-04-19 2020-04-19 [facility] [id number] 00:00:00 00:00:00 PA ALDO 2020-04-18 2020-04-18 [facility] [id number] 00:00:00 00:00:00 PA PA 2020-04-11 2020-04-11 [facility] [id number] 00:00:00 00:00:00 2020-04-11 2020-04-11 [facility] [id number] 00:00:00 00:00:00 PA PA 2020-04-08 2020-04-08 [facility] [id number] 00:00:00 00:00:00 PA PA 2020-04-04 2020-04-04 [facility] [id number] 00:00:00 00:00:00 2020-04-01 2020-04-01 [facility] [id number] 00:00:00 00:00:00 PA PA 2020-03-29 2020-03-29 [facility] [id number] 00:00:00 00:00:00 2020-03-29 2020-03-29 [facility] [id number] 00:00:00 00:00:00 2020-03-27 2020-03-27 [facility] [id number] 00:00:00 00:00:00 2020-03-22 2020-03-22 [facility] [id number] 00:00:00 00:00:00 PA PA 2020-03-21 2020-03-21 [facility] [id number] 00:00:00 00:00:00 2020-03-21 2020-03-21 [facility] [id number] 00:00:00 00:00:00 2020-03-21 2020-03-21 [facility] [id number] 00:00:00 00:00:00 2020-03-21 2020-03-21 [facility] [id number] 00:00:00 00:00:00 PA PA 2020-03-14 2020-03-14 [facility] [id number] 00:00:00 00:00:00 2020-03-12 2020-03-12 [facility] [id number] 00:00:00 00:00:00 2020-03-11 2020-03-11 [facility] [id number] 00:00:00 00:00:00 2020-03-11 2020-03-11 [facility] [id number] 00:00:00 00:00:00 PA PA 2020-03-08 2020-03-08 [facility] [id number] 00:00:00 00:00:00 PA PA 2020-03-05 2020-03-05 [facility] [id number] 00:00:00 00:00:00 PA PA 2020-03-04 2020-03-04 [facility] [id number] 00:00:00 00:00:00 2020-03-04 2020-03-04 [facility] [id number] 00:00:00 00:00:00 2020-02-29 2020-02-29 [facility] [id number] 00:00:00 00:00:00 PA 2020-02-26 2020-02-26 [facility] [id number] 00:00:00 00:00:00 2020-02-26 2020-02-26 [facility] [id number] 00:00:00 00:00:00 2020-02-25 2020-02-25 [facility] [id number] 00:00:00 00:00:00 2020-02-25 2020-02-25 [facility] [id number] 00:00:00 00:00:00 2020-02-20 2020-02-20 [id number] 00:00:00 00:00:00 PA PA 2020-02-16 2020-02-16 [facility] [id number] 00:00:00 00:00:00 2020-02-16 2020-02-16 [facility] [id number] 00:00:00 00:00:00 2020-02-16 2020-02-16 [facility] [id number] 00:00:00 00:00:00 2020-02-16 2020-02-16 [facility] [id number] 00:00:00 00:00:00 2020-02-16 2020-02-16 [facility] [id number] 00:00:00 00:00:00 2020-02-15 2020-02-15 [facility] [id number] 00:00:00 00:00:00 PA PA 2020-02-14 2020-02-14 [facility] [id number] 00:00:00 00:00:00 2020-02-13 2020-02-13 [facility] [id number] 00:00:00 00:00:00 PA PA 2020-02-12 2020-02-12 [facility] [id number] 00:00:00 00:00:00 PA PA 2020-02-11 2020-02-11 [facility] [id number] 00:00:00 00:00:00 2020-02-11 2020-02-11 [facility] [id number] 00:00:00 00:00:00 2020-02-11 2020-02-11 [facility] [id number] 00:00:00 00:00:00 2020-02-11 2020-02-11 [facility] [id number] 00:00:00 00:00:00 2020-02-07 2020-02-07 [facility] [id number] 00:00:00 00:00:00 2020-02-07 2020-02-07 [facility] [id number] 00:00:00 00:00:00 2020-02-07 2020-02-07 [facility] [id number] 00:00:00 00:00:00 2020-02-07 2020-02-07 [facility] [id number] 00:00:00 00:00:00 2020-02-07 2020-02-07 [facility] [id number] 00:00:00 00:00:00 2020-02-06 2020-02-06 [id number] 00:00:00 00:00:00 PA PA 2020-02-04 2020-02-04 [facility] [id number] 00:00:00 00:00:00 2020-02-04 2020-02-04 [facility] [id number] 00:00:00 00:00:00 2020-02-01 2020-02-01 [facility] [id number] 00:00:00 00:00:00 2020-02-01 2020-02-01 [facility] [id number] 00:00:00 00:00:00 2020-01-31 2020-01-31 [facility] [id number] 00:00:00 00:00:00 2020-01-31 2020-01-31 [facility] [id number] 00:00:00 00:00:00 PA PA 2020-01-28 2020-01-28 [facility] [id number] 00:00:00 00:00:00 2020-01-28 2020-01-28 [facility] [id number] 00:00:00 00:00:00 2020-01-28 2020-01-28 [facility] [id number] 00:00:00 00:00:00 2020-01-28 2020-01-28 [facility] [id number] 00:00:00 00:00:00 2020-01-28 2020-01-28 [facility] [id number] 00:00:00 00:00:00 2020-01-27 2020-01-27 [facility] [id number] 00:00:00 00:00:00 2020-01-27 2020-01-27 [facility] [id number] 00:00:00 00:00:00 2020-01-25 2020-01-25 [facility] [id number] 00:00:00 00:00:00 2020-01-24 2020-01-24 [facility] [id number] 00:00:00 00:00:00 2020-01-23 2020-01-23 [id number] 00:00:00 00:00:00 PA PA 2020-01-22 2020-01-22 [facility] [id number] 00:00:00 00:00:00 PA PA 2020-01-22 2020-01-22 [facility] [id number] 00:00:00 00:00:00 PA PA 2020-01-21 2020-01-21 [facility] [id number] 00:00:00 00:00:00 2020-01-21 2020-01-21 [facility] [id number] 00:00:00 00:00:00 2020-01-18 2020-01-18 [facility] [id number] 00:00:00 00:00:00 2020-01-18 2020-01-18 [facility] [id number] 00:00:00 00:00:00 2020-01-18 2020-01-18 [facility] [id number] 00:00:00 00:00:00 PA PA 2020-01-18 2020-01-18 [facility] [id number] 00:00:00 00:00:00 PA PA 2020-01-17 2020-01-17 [facility] [id number] 00:00:00 00:00:00 2020-01-17 2020-01-17 [facility] [id number] 00:00:00 00:00:00 2020-01-16 2020-01-16 [facility] [id number] 00:00:00 00:00:00 2020-01-16 2020-01-16 [facility] [id number] 00:00:00 00:00:00 2020-01-16 2020-01-16 [facility] [id number] 00:00:00 00:00:00 PA PA 2020-01-14 2020-01-14 [facility] [id number] 00:00:00 00:00:00 2020-01-14 2020-01-14 [facility] [id number] 00:00:00 00:00:00 2020-01-14 2020-01-14 [facility] [id number] 00:00:00 00:00:00 2020-01-14 2020-01-14 [facility] [id number] 00:00:00 00:00:00 2020-01-13 2020-01-13 [facility] [id number] 00:00:00 00:00:00 2020-01-13 2020-01-13 [facility] [id number] 00:00:00 00:00:00 2020-01-12 2020-01-12 [facility] [id number] 00:00:00 00:00:00 2020-01-11 2020-01-11 [facility] [id number] 00:00:00 00:00:00 2020-01-11 2020-01-11 [facility] [id number] 00:00:00 00:00:00 2020-01-11 2020-01-11 [facility] [id number] 00:00:00 00:00:00 2020-01-11 2020-01-11 [facility] [id number] 00:00:00 00:00:00 2020-01-11 2020-01-11 [id number] 00:00:00 00:00:00 PA PA 2020-01-08 2020-01-08 [facility] [id number] 00:00:00 00:00:00 PA PA 2020-01-06 2020-01-06 [facility] [id number] 00:00:00 00:00:00 2020-01-06 2020-01-06 [facility] [id number] 00:00:00 00:00:00 2020-01-05 2020-01-05 [facility] [id number] 00:00:00 00:00:00 2020-01-03 2020-01-03 [facility] [id number] 00:00:00 00:00:00 2020-01-03 2020-01-03 [facility] [id number] 00:00:00 00:00:00 2019-12-29 2019-12-29 [facility] [id number] 00:00:00 00:00:00 2019-12-29 2019-12-29 [id number] 00:00:00 00:00:00 PA PA 2019-12-28 2019-12-28 [facility] [id number] 00:00:00 00:00:00 2019-12-27 2019-12-27 [facility] [id number] 00:00:00 00:00:00 2019-12-25 2019-12-25 [facility] [id number] 00:00:00 00:00:00 2019-12-25 2019-12-25 [facility] [id number] 00:00:00 00:00:00 2019-12-25 2019-12-25 [facility] [id number] 00:00:00 00:00:00 2019-12-25 2019-12-25 [facility] [id number] 00:00:00 00:00:00 2019-12-25 2019-12-25 [id number] 00:00:00 00:00:00 PA PA 2019-12-22 2019-12-22 [facility] [id number] 00:00:00 00:00:00 2019-12-22 2019-12-22 [facility] [id number] 00:00:00 00:00:00 2019-12-22 2019-12-22 [id number] 00:00:00 00:00:00 PA PA 2019-12-20 2019-12-20 [facility] [id number] 00:00:00 00:00:00 2019-12-20 2019-12-20 [facility] [id number] 00:00:00 00:00:00 PA PA 2019-12-19 2019-12-19 [facility] [id number] 00:00:00 00:00:00 2019-12-19 2019-12-19 [facility] [place] [id number] 00:00:00 00:00:00 PA 2019-12-18 2019-12-18 [facility] [id number] 00:00:00 00:00:00 2019-12-18 2019-12-18 [facility] [id number] 00:00:00 00:00:00 2019-12-18 2019-12-18 [facility] [id number] 00:00:00 00:00:00 PA PA 2019-12-17 2019-12-17 [facility] [id number] 00:00:00 00:00:00 2019-12-17 2019-12-17 [facility] [id number] 00:00:00 00:00:00 2019-12-16 2019-12-16 [facility] [id number] 00:00:00 00:00:00 2019-12-16 2019-12-16 [facility] [id number] 00:00:00 00:00:00 2019-12-16 2019-12-16 [facility] [id number] 00:00:00 00:00:00 2019-12-14 2019-12-14 [facility] [id number] 00:00:00 00:00:00 2019-12-14 2019-12-14 [facility] [id number] 00:00:00 00:00:00 2019-12-14 2019-12-14 [id number] 00:00:00 00:00:00 PA PA 2019-12-13 2019-12-13 [facility] [id number] 00:00:00 00:00:00 2019-12-13 2019-12-13 [facility] [id number] 00:00:00 00:00:00 2019-12-13 2019-12-13 [facility] [id number] 00:00:00 00:00:00 2019-12-12 2019-12-12 [facility] [id number] 00:00:00 00:00:00 2019-12-12 2019-12-12 [facility] [id number] 00:00:00 00:00:00 2019-12-11 2019-12-11 [facility] [id number] 00:00:00 00:00:00 2019-12-11 2019-12-11 [facility] [id number] 00:00:00 00:00:00 2019-12-11 2019-12-11 [facility] [id number] 00:00:00 00:00:00 2019-12-11 2019-12-11 [facility] [id number] 00:00:00 00:00:00 2019-12-08 2019-12-08 [facility] [id number] 00:00:00 00:00:00 2019-12-08 2019-12-08 [facility] [id number] 00:00:00 00:00:00 2019-12-08 2019-12-08 [facility] [id number] 00:00:00 00:00:00 2019-12-08 2019-12-08 [facility] [id number] 00:00:00 00:00:00 2019-12-07 2019-12-07 [facility] [id number] 00:00:00 00:00:00 2019-12-05 2019-12-05 [facility] [id number] 00:00:00 00:00:00 2019-12-05 2019-12-05 [facility] [id number] 00:00:00 00:00:00 2019-12-04 2019-12-04 [facility] [id number] 00:00:00 00:00:00 2019-12-04 2019-12-04 [id number] 00:00:00 00:00:00 PA PA 2019-12-03 2019-12-03 [facility] [id number] 00:00:00 00:00:00 2019-12-03 2019-12-03 [facility] [id number] 00:00:00 00:00:00 2019-12-03 2019-12-03 [facility] [id number] 00:00:00 00:00:00 2019-12-03 2019-12-03 [facility] [id number] 00:00:00 00:00:00 2019-12-03 2019-12-03 [facility] [id number] 00:00:00 00:00:00 2019-12-02 2019-12-02 [facility] [id number] 00:00:00 00:00:00 2019-12-02 2019-12-02 [facility] [id number] 00:00:00 00:00:00 2019-12-02 2019-12-02 [facility] [id number] 00:00:00 00:00:00 2019-12-01 2019-12-01 [facility] [id number] 00:00:00 00:00:00 2019-12-01 2019-12-01 [facility] [id number] 00:00:00 00:00:00 2019-12-01 2019-12-01 [facility] [id number] 00:00:00 00:00:00 2019-11-30 2019-11-30 [facility] [id number] 00:00:00 00:00:00 2019-11-29 2019-11-29 [facility] [id number] 00:00:00 00:00:00 2019-11-29 2019-11-29 [facility] [id number] 00:00:00 00:00:00 2019-11-28 2019-11-28 [facility] [id number] 00:00:00 00:00:00 2019-11-28 2019-11-28 [facility] [id number] 00:00:00 00:00:00 2019-11-27 2019-11-27 [facility] [id number] 00:00:00 00:00:00 2019-11-27 2019-11-27 [facility] [id number] 00:00:00 00:00:00 2019-11-27 2019-11-27 [id number] 00:00:00 00:00:00 PA PA 2019-11-26 2019-11-26 [facility] [id number] 00:00:00 00:00:00 2019-11-26 2019-11-26 [facility] [id number] 00:00:00 00:00:00 2019-11-26 2019-11-26 [facility] [id number] 00:00:00 00:00:00 2019-11-25 2019-11-25 [facility] [id number] 00:00:00 00:00:00 2019-11-25 2019-11-25 [facility] [id number] 00:00:00 00:00:00 2019-11-23 2019-11-23 [facility] [id number] 00:00:00 00:00:00 2019-11-23 2019-11-23 [id number] 00:00:00 00:00:00 PA PA 2019-11-22 2019-11-22 [facility] [id number] 00:00:00 00:00:00 2019-11-22 2019-11-22 [facility] [id number] 00:00:00 00:00:00 2019-11-22 2019-11-22 [facility] [id number] 00:00:00 00:00:00 2019-11-21 2019-11-21 [facility] [id number] 00:00:00 00:00:00 2019-11-21 2019-11-21 [facility] [id number] 00:00:00 00:00:00 2019-11-21 2019-11-21 [facility] [id number] 00:00:00 00:00:00 2019-11-20 2019-11-20 [facility] [id number] 00:00:00 00:00:00 2019-11-20 2019-11-20 [facility] [id number] 00:00:00 00:00:00 2019-11-20 2019-11-20 [facility] [id number] 00:00:00 00:00:00 2019-11-20 2019-11-20 [facility] [id number] 00:00:00 00:00:00 2019-11-20 2019-11-20 [facility] [id number] 00:00:00 00:00:00 2019-11-20 2019-11-20 [id number] 00:00:00 00:00:00 PA PA 2019-11-19 2019-11-19 [facility] [id number] 00:00:00 00:00:00 2019-11-19 2019-11-19 [facility] [id number] 00:00:00 00:00:00 2019-11-19 2019-11-19 [facility] [id number] 00:00:00 00:00:00 2019-11-19 2019-11-19 [facility] [id number] 00:00:00 00:00:00 2019-11-18 2019-11-18 [facility] [id number] 00:00:00 00:00:00 2019-11-18 2019-11-18 [facility] [id number] 00:00:00 00:00:00 2019-11-18 2019-11-18 [facility] [id number] 00:00:00 00:00:00 2019-11-18 2019-11-18 [facility] [id number] 00:00:00 00:00:00 2019-12-15 2019-11-17 [facility] [id number]_ 10:42:00 23:59:00 [id number] 2019-11-17 2019-11-17 [facility] [id number] 00:00:00 23:59:00 [id number] 2019-11-17 [facility] [id number] 11:40:00 12:00:00 2019-11-17 2019-11-17 [facility] [id number] 00:00:00 00:00:00 2019-11-17 2019-11-17 [facility] [id number] 00:00:00 00:00:00 2019-11-17 2019-11-17 [facility] [id number] 00:00:00 00:00:00 2019-11-17 2019-11-17 [facility] [id number] 00:00:00 00:00:00 2019-11-17 2019-11-17 [facility] [id number] 00:00:00 00:00:00 2019-11-17 2019-11-17 [facility] [id number] 00:00:00 00:00:00 2019-11-17 2019-11-17 [facility] [id number] 00:00:00 00:00:00 2019-11-17 2019-11-17 [facility] [id number] 00:00:00 00:00:00 2019-11-17 2019-11-17 [id number] 00:00:00 00:00:00 PA PA 2019-11-16 2019-11-16 [facility] [id number] 00:00:00 00:00:00 2019-11-16 2019-11-16 [facility] [id number] 00:00:00 00:00:00 2019-11-16 2019-11-16 [facility] [id number] 00:00:00 00:00:00 2019-11-16 2019-11-16 [facility] [id number] 00:00:00 00:00:00 2019-11-15 2019-11-15 [facility] [id number] 00:00:00 00:00:00 2019-11-15 2019-11-15 [facility] [id number] 00:00:00 00:00:00 2019-11-14 2019-11-14 [facility] [id number] 00:00:00 00:00:00 2019-11-14 2019-11-14 [facility] [id number] 00:00:00 00:00:00 2019-11-14 2019-11-14 [facility] [id number] 00:00:00 00:00:00 2019-11-14 2019-11-14 [facility] [id number] 00:00:00 00:00:00 2019-11-10 2019-11-10 [facility] [id number] 00:00:00 00:00:00 2019-11-10 2019-11-10 [facility] [id number] 00:00:00 00:00:00 2019-11-10 2019-11-10 [facility] [id number] 00:00:00 00:00:00 2019-11-10 2019-11-10 [id number] 00:00:00 00:00:00 PA PA 2019-11-09 2019-11-09 [facility] [id number] 00:00:00 00:00:00 PA PA 2019-11-07 2019-11-07 [facility] [id number] 00:00:00 00:00:00 PA PA 2019-10-26 2019-10-26 [id number] 00:00:00 00:00:00 PA PA 2019-10-24 2019-10-24 [id number] 00:00:00 00:00:00 PA PA 2019-10-19 2019-10-19 [facility] [id number] 00:00:00 00:00:00 PA PA 2019-10-17 2019-10-17 [facility] [id number] 00:00:00 00:00:00 PA PA 2019-10-13 2019-10-13 [facility] [id number] 00:00:00 00:00:00 PA PA 2019-10-09 2019-10-09 [facility] [id number] 00:00:00 00:00:00 PA PA 2019-09-25 2019-09-25 [facility] [id number] 00:00:00 00:00:00 PA PA 2019-09-19 2019-09-19 [facility] [id number] 00:00:00 00:00:00 PA PA 2019-08-03 2019-08-03 [facility] [id number] 00:00:00 00:00:00 PA PA 2019-06-29 2019-06-29 [facility] [id number] 00:00:00 00:00:00 PA PA 2019-06-29 2019-06-29 [facility] [id number] 00:00:00 00:00:00 PA PA 2019-06-12 2019-06-12 [facility] [id number] 00:00:00 00:00:00 PA PA 2019-05-22 2019-05-22 [facility] 30 [id number] 00:00:00 00:00:00 PA PA 2019-05-09 2019-05-09 [facility] 30 [id number] 00:00:00 00:00:00 PA PA 2019-04-25 2019-04-25 [facility] 30 [id number] 00:00:00 00:00:00 PA PA 2019-04-04 2019-04-04 Shane Thapa [id number] 00:00:00 00:00:00 Andi DO: Surgical Surgical [id number] [facility], [address], [place] [address], Ph. 2019-03-01 2019-03-01 Shane Thapa [id number] 00:00:00 00:00:00 Andi, DO: Surgical Surgical [address] [facility], [address], [place] [address], Ph. 2019-02-14 2019-02-14 Shane Thapa [id number] 00:00:00 00:00:00 Andi, DO: Surgical Surgical [address] [facility], [address], [place] [address], Ph. 2019-02-08 2019-02-08 Shane Thapa [id number] 00:00:00 00:00:00 Andi, DO: [facility] [address] [facility] [facility], [address], [place] [address], Ph. 2019-01-23 2019-01-23 [id number] 00:00:00 00:00:00 PA PA 2018-12-12 2018-12-12 [facility] 29 [id number] 00:00:00 00:00:00 PA PA 2018-11-14 2018-11-14 [facility] 29 [id number] 00:00:00 00:00:00 PA PA 2018-11-14 2018-11-14 [facility] 29 [id number] 00:00:00 00:00:00 PA PA 2018-11-07 2018-11-07 [facility] 29 [id number] 00:00:00 00:00:00 PA PA 2018-10-04 2018-10-04 [facility] 28 [id number] 00:00:00 00:00:00 PA PA 2018-06-01 2018-06-01 [facility] 26 [id number] 00:00:00 00:00:00 PA PA 2018-03-30 2018-03-30 [facility] 26 [id number] 00:00:00 00:00:00 PA PA 2018-03-08 2018-03-08 [facility] 25 [id number] 00:00:00 00:00:00 PA PA 2017-10-22 2017-10-22 [facility] 24 [id number] 00:00:00 00:00:00 PA PA 2017-09-14 2017-09-14 [facility] 24 [id number] 00:00:00 00:00:00 PA PA 2017-09-13 2017-09-13 [facility] 24 [id number] 00:00:00 00:00:00 PA PA 2017-08-31 2017-08-31 [facility] 24 [id number] 00:00:00 00:00:00 PA PA 2017-08-30 2017-08-30 [facility] 24 [id number] 00:00:00 00:00:00 PA PA 2017-08-25 2017-08-25 [facility] 24 [id number] 00:00:00 00:00:00 PA PA 2017-07-20 2017-07-20 [facility] 23 [id number] 00:00:00 00:00:00 PA PA 2017-04-01 2017-04-01 [facility] 23 [id number] 00:00:00 00:00:00 PA PA 2017-03-19 2017-03-19 [facility] 22 [id number] 00:00:00 00:00:00 PA PA 2016-09-02 2016-09-02 [facility] 21 [id number] 00:00:00 00:00:00 PA PA 2016-06-11 2016-06-11 [facility] 20 [id number] 00:00:00 00:00:00 PA PA 2015-10-03 2015-10-03 [facility] 18 [id number] 00:00:00 00:00:00 PA PA 2015-09-05 2015-09-05 [facility] 18 [id number] 00:00:00 00:00:00 PA PA 2015-01-09 2015-01-09 [facility] [id number] 00:00:00 00:00:00 PA PA 2014-09-28 2014-09-28 [facility] 15 [id number] 00:00:00 00:00:00 PA PA 2014-09-24 2014-09-24 [facility] 15 [id number] 00:00:00 00:00:00 PA PA 2014-09-13 2014-09-13 [facility] 15 [id number] 00:00:00 00:00:00 PA PA 2014-06-07 2014-06-07 [facility] 14 [id number] 00:00:00 00:00:00 PA PA 2014-02-27 2014-02-27 [facility] 13 [id number] 00:00:00 00:00:00 PA PA 2014-02-19 2014-02-19 [facility] 13 [id number] 00:00:00 00:00:00 PA PA 2014-02-15 2014-02-15 [facility] 13 [id number] 00:00:00 00:00:00 PA PA 2014-02-14 2014-02-14 [facility] 13 [id number] 00:00:00 00:00:00 PA PA 2014-01-30 2014-01-30 [facility] 13 [id number] 00:00:00 00:00:00 PA PA 2014-01-29 2014-01-29 [facility] 13 [id number] 00:00:00 00:00:00 PA PA 2012-11-25 2012-11-25 [facility] 10 [id number] 00:00:00 00:00:00 PA PA 2012-11-25 2012-11-25 [facility] 10 [id number] 00:00:00 00:00:00 PA PA 2011-12-31 2011-12-31 [facility] 77 [id number] 00:00:00 00:00:00 PA PA 2011-06-01 2011-06-01 [facility] [id number] 00:00:00 00:00:00 PA PA 2011-04-21 2011-04-21 [facility] [id number] 00:00:00 00:00:00 PA PA 2010-11-07 2010-11-07 [facility] [id number] 00:00:00 00:00:00 PA PA 2010-10-20 2010-10-20 [facility] [id number] 00:00:00 00:00:00 PA PA 2010-06-30 2010-06-30 [facility] 30 [id number] 00:00:00 00:00:00 PA PA 2010-06-30 2010-06-30 [facility] 30 [id number] 00:00:00 00:00:00 PA PA Payers Payer Name Policy Type Policy Number Effective Date Expiration D ate MEDICAID [place] [id number] 2019 00:00:00 ACCESS Plan of Treatment Planned Activity Planned Date Details Comments Future Scheduled Test [code = ] Future Scheduled Test [code = ] Future Scheduled Test [code = ] Future Scheduled Test [code = ] Future Scheduled Test [code = ] Future Scheduled Test [code = ] Future Scheduled Test [code = ] Future Scheduled Test [code = ] Social History Smoking Status Start Date Stop Date Never Smoker Vital Signs Vital Name Observation Time Observation Value Comments height 2020-02-29 13:00:00 69 [in_us] weight 2020-02-29 13:00:00 141 [lb_av] bmi 2020-02-29 13:00:00 20.82 kg/m2 heart rate 2020-02-29 13:00:00 75 /min blood pressure systolic 2020-02-29 13:00:00 104 mm[Hg] blood pressure diastolic 2020-02-29 13:00:00 66 mm[Hg] height 2020-02-12 11:00:00 69 [in_us] weight 2020-02-12 11:00:00 142.8 [lb_av] bmi 2020-02-12 11:00:00 21.09 kg/m2 heart rate 2020-02-12 11:00:00 56 /min temperature 2020-02-12 11:00:00 98.0 [degF] blood pressure systolic 2020-02-12 11:00:00 107 mm[Hg] blood pressure diastolic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
== END ==
LOC: OD 09:32
PROVIDERS: ATTEND Internal Medicine
DX: R10.84 Generalized abdominal pain (principal)
CPT/HCPCS: 74019

== ENCOUNTER 2020-07-23 20:51 | Emergency (ER) | payer MEDICAID ==
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
[2020-07-23 21:12] VITALS: BP 126/79
== END 2020-07-23 21:11 | disposition home or self-care (01) ==
LOC: ER 20:51
DX: K13.79 Other lesions of oral mucosa (principal); J45.909 Unspecified asthma, uncomplicated
CPT/HCPCS: 99282

== ENCOUNTER 2020-08-05 06:43 | Emergency (ER) | payer MEDICAID ==
--- NOTE | 2020-08-05 08:18 | ER Document Report ---
Entered by TAVO DALLAS SCRIBE 08/05/20 0808 Acting as scribe for:SARA CHRISTIANSEN MD ED General - General Chief Complaint: Headache Stated Complaint: HEADACHE Primary Care Provider: GIANCARLO CHANCE MD [Primary Care Provider] - Follow up as needed Information source: Patient Notes: This 35 year old male patient presents to the emergency department today with complaints of a "ache to the back of his head" this morning. Patient reports sinus congestion and the headache is probably due to this or stress. Denies taking anything for relief and his headache is now relieved after "taking deep breaths/meditating". TRAVEL OUTSIDE OF THE [place] IN LAST 30 DAYS: No - Related Data Allergies/Adverse Reactions: No Known Allergies Allergy (Verified 07/23/20 21:07) Home Medications: symbicort Past Medical History - General Information source: Patient - Social History Smoking Status: Former Smoker Frequency of alcohol use: Rare Drug Abuse: None Family History: Reviewed & Not Pertinent Patient has homicidal ideation: No Pulmonary Medical History: Reports: Hx Asthma, Hx Bronchitis GI Medical History: Reports: Hx Gastroesophageal Reflux Disease, Hx Irritable Bowel - Constipation Musculoskeletal Medical History: Reports Hx Arthritis, Reports Hx Musculoskeletal Trauma Psychiatric Medical History: Reports: Hx Anxiety, Hx Bipolar Disorder, Hx Depression, Hx Personality Disorder, Hx Schizoaffective Disorder, Hx Schizophrenia Traumatic Medical History: Reports: Hx Fractures - Finger fracture Past Surgical History: Reports: Hx Abdominal Surgery, Hx Appendectomy, Hx Cholecystectomy, Hx Orthopedic Surgery - Immunizations Immunizations up to date: Yes Hx Diphtheria, Pertussis, Tetanus Vaccination: Yes - 2012 Hx Pneumococcal Vaccination: 08/23/00 Review of Systems - Review of Systems Constitutional: No symptoms reported EENT: See HPI, Other - sinus congestion Cardiovascular: No symptoms reported Respiratory: No symptoms reported Gastrointestinal: No symptoms reported Genitourinary: No symptoms reported Male Genitourinary: No symptoms reported Musculoskeletal: No symptoms reported Skin: No symptoms reported Hematologic/Lymphatic: No symptoms reported Neurological/Psychological: See HPI, Headaches -: Yes All other systems reviewed and negative Physical Exam - Vital signs Vitals: Temp Pulse Resp BP Pulse Ox 97.7 F 60 14 134/87 H 100 08/05/20 06:47 08/05/20 06:47 08/05/20 06:47 08/05/20 06:47 08/05/20 06:47 - General General appearance: Appears well, Alert - HEENT Head: Normocephalic, Atraumatic Eyes: Normal Pupils: PERRL Neck: Normal, Supple - Respiratory Respiratory status: No respiratory distress Chest status: Nontender Breath sounds: Normal Chest palpation: Normal - Cardiovascular Rhythm: Regular Heart sounds: Normal auscultation Murmur: No - Abdominal Inspection: Normal Distension: No distension Bowel sounds: Normal Tenderness: Nontender - Extremities General upper extremity: Normal inspection, Normal ROM General lower extremity: Normal inspection, Normal ROM. No: Edema - Neurological Neuro grossly intact: Yes Cognition: Normal Orientation: AAOx4 [place] Coma Scale Eye Opening: Spontaneous Jasmin Coma Scale Verbal: Oriented [place] Coma Scale Motor: Obeys Commands [place] Coma Scale Total: 15 Speech: Normal Motor strength normal: LUE, RUE, LLE, RLE Sensory: Normal - Psychological Associated symptoms: Normal affect, Normal mood - Skin Skin Temperature: Warm Skin Moisture: Dry Skin Color: Normal Course - Re-evaluation Re-evalutation: 08/05/20 08:16 Patient reports his headache has resolved. - Vital Signs Vital signs: Temp Pulse Resp BP Pulse Ox 97.7 F 60 14 134/87 H 100 08/05/20 06:47 08/05/20 06:47 08/05/20 06:47 08/05/20 06:47 08/05/20 06:47 08/05/20 08:16 Vital signs stable - Laboratory Results Critical Laboratory Results Reviewed: No Critical Results - Radiology Results Critical Radiology Results Reviewed: No Critical Results Discharge - Discharge Clinical Impression: Sinus headache, URI (upper respiratory infection), Homeless single person Condition: Stable Disposition: HOME, SELF-CARE Instructions: Upper Respiratory Illness ([facility]) Additional Instructions: Upper Respiratory Illness You have a viral infection of the respiratory passages -- a "cold." This common infection causes nasal congestion, drainage, and often sore throat and cough. It is caused by a virus and is highly contagious. The disease usually lasts a week or more, though the worst symptoms are usually over in 3 or 4 days. There is no "cure" for the viral infection -- it must run its course. If there is a complication, such as bacterial infection in the nose, sinuses, middle ear, or bronchial tubes, antibiotics may be required, but antibiotics won't affect the virus. If you smoke, you should STOP!! Drink plenty of fluids. A humidifier may help. An expectorant medication or decongestant may make you more comfortable. Use acetaminophen or ibuprofen for fever or aches. See the doctor if fever persists over two or three days, if there is any significant worsening of your symptoms, or if you simply fail to improve as expected. Recommend taking [id number] Advil Cold and Sinus if needed for any congestion or pain. Referrals: GIANCARLO CHANCE MD [Primary Care Provider] - Follow up as needed I personally performed the services described in the documentation, reviewed and edited the documentation which was dictated to the scribe in my presence, and it accurately records my words and actions.
[2020-08-05 08:28] VITALS: BP 120/62
== END 2020-08-05 08:26 | disposition home or self-care (01) ==
LOC: ER 06:43
DX: R51.9 Headache, unspecified (principal); J06.9 Acute upper respiratory infection, unspecified; R09.81 Nasal congestion; J45.909 Unspecified asthma, uncomplicated; Z79.51 Long term (current) use of inhaled steroids; Z87.891 Personal history of nicotine dependence; Z59.0 Homelessness
CPT/HCPCS: 99282

== ENCOUNTER 2020-08-09 06:45 | Emergency (ER) | payer MEDICAID ==
[2020-08-09 06:59] VITALS: BP 119/69
--- NOTE | 2020-08-09 07:24 | ER Document Report ---
HPI - HPI Time Seen by Provider: 08/09/20 07:06 Pain Level: Denies Context: Patient is a 35-year-old homeless male who presents emergency department to be evaluated for a "bump" on his face. Patient states that he noticed it there yesterday. He also had used his Symbicort inhaler and then drank some grape juice and had a large belch afterwards. Patient states that he wanted to get checked out to make sure that everything was okay, as he did not rinse out his mouth after taking his Symbicort. He denies any shortness of breath or difficulty breathing. - ROS Systems Reviewed and Negative: Yes All other systems reviewed and negative - CONSTITUTIONAL Constitutional: DENIES: Fever, Chills - CARDIOVASCULAR Cardiovascular: DENIES: Chest pain - RESPIRATORY Respiratory: DENIES: Trouble Breathing, Coughing - GASTROINTESTINAL Gastrointestinal: DENIES: Abdominal Pain, Nausea, Patient vomiting - MUSCULOSKELETAL Musculoskeletal: DENIES: Extremity pain - DERM Skin Color: Normal Skin Problems: None Past Medical History - General Information source: Patient - Social History Smoking Status: Never Smoker Family History: Reviewed & Not Pertinent Pulmonary Medical History: Reports: Hx Asthma, Hx Bronchitis GI Medical History: Reports: Hx Gastroesophageal Reflux Disease, Hx Irritable Bowel - Constipation Musculoskeletal Medical History: Reports Hx Arthritis, Reports Hx Musculoskeletal Trauma Psychiatric Medical History: Reports: Hx Anxiety, Hx Bipolar Disorder, Hx Depression, Hx Personality Disorder, Hx Schizoaffective Disorder, Hx Sc hizophrenia Traumatic Medical History: Reports: Hx Fractures - Finger fracture Past Surgical History: Reports: Hx Abdominal Surgery, Hx Appendectomy, Hx Cholecystectomy, Hx Orthopedic Surgery - Immunizations Immunizations up to date: Yes Hx Diphtheria, Pertussis, Tetanus Vaccination: Yes - 2012 Hx Pneumococcal Vaccination: 08/23/00 Vertical Provider Document - CONSTITUTIONAL Agree With Documented VS: Yes Exam Limitations: No Limitations General Appearance: No Apparent Distress - INFECTION CONTROL TRAVEL OUTSIDE OF THE [place] IN LAST 30 DAYS: No - HEENT HEENT: Atraumatic, Normocephalic, PERRLA - NECK Neck: Normal Inspection - RESPIRATORY Respiratory: No Respiratory Distress - CARDIOVASCULAR Cardiovascular: Regular Rate Pulses: Normal: Radial - MUSCULOSKELETAL/EXTREMETIES Musculoskeletal/Extremeties: FROM - NEURO Level of Consciousness: Awake, Alert, Appropriate Motor/Sensory: No Motor Deficit, No Sensory Deficit - DERM Integumentary: Warm, Dry, No Rash Course - Re-evaluation Re-evalutation: 08/09/20 07:55 Patient is in no distress. Abdomen is soft and nontender. Advised patient to make sure that he rinses his mouth after taking his Symbicort. He is in agreement with this plan. Follow-up precautions were given. Verbal discharge instructions were given to the patient. They verbalized understanding. They are stable for discharge. - Vital Signs Vital signs: Temp Pulse Resp BP Pulse Ox 98.0 F 65 16 119/69 100 08/09/20 06:58 08/09/20 06:58 08/09/20 06:58 08/09/20 06:58 08/09/20 06:58 - Laboratory Results Critical Laboratory Results Reviewed: No Critical Results - Radiology Results Critical Radiology Results Reviewed: No Critical Results Discharge - Discharge Clinical Impression: Asthma Qualifiers: Asthma severity: unspecified severity Asthma persistence: unspecified Asthma complication type: uncomplicated Qualified Code(s): J45.909 - Unspecified asthma, uncomplicated Condition: Stable Disposition: HOME, SELF-CARE Additional Instructions: You were seen today in the emergency department to be evaluated. Your exam is reassuring. Make sure you rinse your mouth after using your Symbicort. Follow up with your primary care provider as needed. Referrals: GIANCARLO CHANCE MD [Primary Care Provider] - Follow up as needed
== END 2020-08-09 07:30 | disposition home or self-care (01) ==
LOC: ER 06:45
DX: J45.909 Unspecified asthma, uncomplicated (principal); R22.0 Localized swelling, mass and lump, head
CPT/HCPCS: 99282

== ENCOUNTER 2020-08-09 22:17 | Emergency (ER) | payer MEDICAID ==
[2020-08-09 22:46] VITALS: BP 137/81
[2020-08-10] MEDS ORDERED: ONDANSETRON ODT 4 MG TAB (6 TAB/ER DISP) PO PRN (00:31)
--- NOTE | 2020-08-10 00:31 | ER Document Report ---
ED General - General Chief Complaint: Nausea Stated Complaint: NAUSEA/HEADACHE Primary Care Provider: GIANCARLO CHANCE MD [Primary Care Provider] - Follow up as needed TRAVEL OUTSIDE OF THE [place] IN LAST 30 DAYS: No - HPI Notes: Chief Complaint: nausea Historian: History obtained from patient HPI: This is a 35yo male that presents to the ER c/o nausea that began earlier today. 2 episodes of nonbloody emesis- small amounts. Pt says he may have eaten something that didnt agree w/ him earlier today- a type of [employer] food. no one else ate this. Denies abdom pain, bowel changes, fever/chills, cp, sob. Of note, pt started doxycycline today for a small infected skin bump on his face. pt is well known to the ER and has a hx of schizophrenia and homelessness. ROS: Constitutional: no fevers. HEENT: no LACKEY, sore throat, or vision changes. CV: no chest pain or palpitations. Resp: no cough or SOB. GI: nausea and vomiting : no dysuria, hematuria, or incont. MSK: no back pain, no joint swelling/redness. Skin: no rashes or itching. Neuro: no seizures, weakness, numbness, or confusion. Hematological: no ecchymosis or easy bleeding. Endocrine: no polyuria/polydipsia, no heat/cold intolerance. Psych: hx of schizo PMHx: Reviewed and agree as charted by RN. PSHx: Reviewed and agree as charted by RN. SOCHx: Reviewed and agree as charted by RN. FHX: No significant familial comorbid conditions directly related to patient complaint Current Medications: Reviewed and agree with the patient medications as charted by the RN. Allergies: Reviewed and agree with the listed allergies as charted by the RN Physical Exam: Vitals: Reviewed in chart as documented by RN. General: Alert appears nauseated Head: Normocephalic; atraumatic. small 1cm pimple to left face lateral to left nare. no drainage, fluctuance or induration Eyes: PERRLA, Conjunctivae clear sclerae non-icteric bilat ENT: no soft palate swelling or uvular deviation Neck: trachea midline, no unilateral swelling/tenderness/lymphadenopathy CV: RRR, no M/R/G; symmetric distal pulses Resp: respirations even and unlabored, CTA bilat. GI: abd soft and nondistended. NTTP. normal BS. no masses/HSM. no CVAT bilat MSK: FROM of all extremities. No midline CTL spine tenderness/deformity Skin: warm, moist, good turgor. no rash/lesions Neuro: Alert and oriented X 4. following CN 2-12 intact. no unilateral weakness/numbness Psych: No SI/HI or AH/VH. ED Results: Medical Decision-Making: differential includes medication side effect, food poisoning, covid, viral syndrome, AGE, pancreatitis- unlikely, GERD, esophagitis, ect plan- I suspect pts doxy is giving him his symptoms of nausea since its known for this side effect. Pt is not actively vomiting in the ED and has no bowel changes. hes afebrile w/ normal vitals. Im told he often presents malingering for a hospital bed due to homelessness and it seems like that may be the case tonight. Pt is agreeable to treating him w/ zofran odt and changing his antibiotic from doxy to bactrim. return factors discussed. - Related Data Allergies/Adverse Reactions: No Known Allergies Allergy (Verified 07/23/20 21:07) Past Medical History - Social History Smoking Status: Current Every Day Smoker Family History: Reviewed & Not Pertinent Pulmonary Medical History: Reports: Hx Asthma, Hx Bronchitis GI Medical History: Reports: Hx Gastroesophageal Reflux Disease, Hx Irritable Bowel - Constipation Musculoskeletal Medical History: Reports Hx Arthritis, Reports Hx Musculoskeletal Trauma Psychiatric Medical History: Reports: Hx Anxiety, Hx Bipolar Disorder, Hx Depression, Hx Personality Disorder, Hx Schizoaffective Disorder, Hx Schizophrenia Traumatic Medical History: Reports: Hx Fractures - Finger fracture Past Surgical History: Reports: Hx Abdominal Surgery, Hx Appendectomy, Hx Cholecystectomy, Hx Orthopedic Surgery - Immunizations Immunizations up to date: Yes Hx Diphtheria, Pertussis, Tetanus Vaccination: Yes - 2012 Hx Pneumococcal Vaccination: 08/23/00 Physical Exam - Vital signs Vitals: Temp Pulse Resp BP Pulse Ox 97.8 F 65 16 137/81 H 100 08/09/20 22:45 08/09/20 22:45 08/09/20 22:45 08/09/20 22:45 08/09/20 22:45 Course - Vital Signs Vital signs: Temp Pulse Resp BP Pulse Ox 97.8 F 65 16 137/81 H 100 08/09/20 22:45 08/09/20 22:45 08/09/20 22:45 08/09/20 22:45 08/09/20 22:45 - Laboratory Results Critical Laboratory Results Reviewed: No Critical Results - Radiology Results Critical Radiology Results Reviewed: No Critical Results Discharge - Discharge Clinical Impression: Medication side effect Nausea & vomiting Qualifiers: Vomiting type: unspecified Vomiting Intractability: non-intractable Qualified Code(s): R11.2 - Nausea with vomiting, unspecified Condition: Stable Disposition: HOME, SELF-CARE Prescriptions: Sulfamethoxazole/Trimethoprim [Bactrim Ds Tablet] 2 tab PO BID #10 tablet Referrals: GIANCARLO CHANCE MD [Primary Care Provider] - Follow up as needed
== END 2020-08-10 00:48 | disposition home or self-care (01) ==
LOC: ER 22:17
DX: R11.2 Nausea with vomiting, unspecified (principal); T36.4X5A Adverse effect of tetracyclines, initial encounter; R51.9 Headache, unspecified; Z59.0 Homelessness; F17.200 Nicotine dependence, unspecified, uncomplicated
CPT/HCPCS: 99283

== ENCOUNTER 2020-08-10 01:07 | Emergency (ER) | payer MEDICAID ==
--- NOTE | 2020-08-10 08:52 | ER Document Report ---
HPI - HPI Patient complains to provider of: Nausea Time Seen by Provider: 08/10/20 08:31 Pain Level: Denies Notes: 35-year-old male to the emergency department with complaints of nausea and vomiting x2 episodes yesterday. He states he is had this after he drank some lemon qawalangin juice. He states that the nausea has gotten a lot better since he was given antinausea medicine. He states that he is currently on antibiotics for an infection to his face. He states he was given this by his primary care physician. He states that the initial antibiotic was too strong for him so he is now been given a prescription for Bactrim which she plans to get filled today. He does have a prescription for Zofran that he carries with him. He states that currently he feels fine. He denies any abdominal pain, chest pain, shortness of breath, vomiting since yesterday, back pain, urinary complaints. Patient is well-known to this department. He has been in our department for 3 visits in the past 24 hours. He is homeless. - ROS Systems Reviewed and Negative: Yes All other systems reviewed and negative - CONSTITUTIONAL Constitutional: DENIES: Fever, Chills - EENT EENT: DENIES: Sore Throat, Ear Pain, Eye problems - NEURO Neurology: DENIES: Headache, Weakness, Vision blurred, Dizzinesss / Vertigo - CARDIOVASCULAR Cardiovascular: DENIES: Chest pain - RESPIRATORY Respiratory: DENIES: Trouble Breathing, Coughing - GASTROINTESTINAL Gastrointestinal: REPORTS: Abdominal Pain, Nausea - with two episodes of vomiting yesterday. DENIES: Black / Bloody Stools - URINARY Urinary: DENIES: Dysuria, Urgency, Frequency - REPRODUCTIVE Reproductive: DENIES: : - MUSCULOSKELETAL Musculoskeletal: DENIES: Extremity pain - DERM Skin Color: Normal Skin Problems: None Past Medical History - General Information source: Patient - Social History Smoking Status: Former Smoker Frequency of alcohol use: None Drug Abuse: None Family History: Reviewed & Not Pertinent Patient has homicidal ideation: No Pulmonary Medical History: Reports: Hx Asthma, Hx Bronchitis GI Medical History: Reports: Hx Gastroesophageal Reflux Disease, Hx Irritable Bowel - Constipation Musculoskeletal Medical History: Reports Hx Arthritis, Reports Hx Musculoskeletal Trauma Psychiatric Medical History: Reports: Hx Anxiety, Hx Bipolar Disorder, Hx Depression, Hx Personality Disorder, Hx Schizoaffective Disorder, Hx Schizophrenia Traumatic Medical History: Reports: Hx Fractures - Finger fracture Past Surgical History: Reports: Hx Abdominal Surgery, Hx Appendectomy, Hx Cholecystectomy, Hx Orthopedic Surgery - Immunizations Immunizations up to date: Yes Hx Diphtheria, Pertussis, Tetanus Vaccination: Yes - 2012 Hx Pneumococcal Vaccination: 08/23/00 Vertical Provider Document - CONSTITUTIONAL Agree With Documented VS: Yes Exam Limitations: No Limitations, Physical Impairment General Appearance: WD/WN, No Apparent Distress - INFECTION CONTROL TRAVEL OUTSIDE OF THE [place] IN LAST 30 DAYS: No - HEENT HEENT: Atraumatic, Normocephalic, PERRLA - NECK Neck: Normal Inspection, Supple - RESPIRATORY Respiratory: Breath Sounds Normal. negative: Rales, Rhonchi, Wheezing - CARDIOVASCULAR Cardiovascular: Regular Rate, Regular Rhythm, No Murmur - GI/ABDOMEN Gastrointestinal: Abdomen Soft, Abdomen Non-Tender, No Organomegaly - BACK Back: Normal Inspection - MUSCULOSKELETAL/EXTREMETIES Musculoskeletal/Extremeties: MAEW, FROM, Non-Tender - NEURO Level of Consciousness: Awake, Alert - DERM Integumentary: Warm, Dry, No Rash Course - Re-evaluation Re-evalutation: Impression: Nausea with vomiting. Patient had 2 episodes yesterday. May be related to the antibiotics he is taking. However, he is currently has no symptoms. He states that he is feeling well. He has no abdominal pain with palpation. He has reassuring vital signs. Plan will be to discharge home. He does have a prescription for Zofran have encouraged him to use that if he is feeling nauseated. Encouraged to return if worsening symptoms. Encouraged to follow-up with primary care. - Vital Signs Vital signs: Temp Pulse Resp BP Pulse Ox 97.9 F 56 L 18 138/65 H 100 08/10/20 06:37 08/10/20 06:37 08/10/20 06:37 08/10/20 06:37 08/10/20 06:37 - Laboratory Results Critical Laboratory Results Reviewed: No Critical Results - Radiology Results Critical Radiology Results Reviewed: No Critical Results Discharge - Discharge Clinical Impression: Nausea & vomiting Qualifiers: Vomiting type: unspecified Vomiting Intractability: non-intractable Qualified Code(s): R11.2 - Nausea with vomiting, unspecified Condition: Stable Disposition: HOME, SELF-CARE Instructions: Vomiting ([facility]) Additional Instructions: Complete your antibiotics and also takes Zofran for any further nausea or vomiting. Return if you are worsening. Follow-up with your primary care physician. Referrals: GIANCARLO CHANCE MD [Primary Care Provider] - Follow up in 1 week
[2020-08-10 09:03] VITALS: BP 114/62
== END 2020-08-10 09:02 | disposition home or self-care (01) ==
LOC: ER 01:07
DX: R11.2 Nausea with vomiting, unspecified (principal); Z59.0 Homelessness; R10.9 Unspecified abdominal pain; Z87.891 Personal history of nicotine dependence; J45.909 Unspecified asthma, uncomplicated
CPT/HCPCS: 99282

== ENCOUNTER 2020-08-10 20:08 | Emergency (ER) | payer MEDICAID ==
[2020-08-10 20:13] VITALS: BP 140/70
--- NOTE | 2020-08-10 20:32 | ER Document Report ---
ED General - General Chief Complaint: Medical Complaint Stated Complaint: NAUSEA Time Seen by Provider: 08/10/20 20:23 Primary Care Provider: GIANCARLO CHANCE MD [Primary Care Provider] - Follow up as needed Mode of Arrival: Ambulatory Information source: Patient Notes: Patient is a 35-year-old male returns emergency room today complaining of having reflux type symptoms. Patient was placed on Bactrim yesterday for a mild facial staph infection and he took the antibiotics yesterday and he also states that he drank a new soda called Sprite limeade and he said the minute he started to drink that that it caused burning in his throat. It has been irritated all day today. He denies any fever has had no vomiting but has had a little nausea with it. Patient also states he takes Zofran but it has not helped with this type of discomfort. TRAVEL OUTSIDE OF THE [place] IN LAST 30 DAYS: No - HPI Onset: This afternoon Onset/Duration: Sudden Quality of pain: Achy, Burning Severity: Moderate Pain Level: 3 Associated symptoms: denies: Nausea, Vomiting, Shortness of breath, Sore throat Exacerbated by: Denies Relieved by: Denies Similar symptoms previously: No Recently seen / treated by doctor: Yes - Related Data Allergies/Adverse Reactions: No Known Allergies Allergy (Verified 08/10/20 05:09) Past Medical History - General Information source: Patient - Social History Smoking Status: Never Smoker Frequency of alcohol use: None Drug Abuse: None Lives with: Family Family History: Reviewed & Not Pertinent Patient has homicidal ideation: No Pulmonary Medical History: Reports: Hx Asthma, Hx Bronchitis GI Medical History: Reports: Hx Gastroesophageal Reflux Disease, Hx Irritable Bowel - Constipation Musculoskeletal Medical History: Reports Hx Arthritis, Reports Hx Musculoskeletal Trauma Psychiatric Medical History: Reports: Hx Anxiety, Hx Bipolar Disorder, Hx Depression, Hx Personality Disorder, Hx Schizoaffective Disorder, Hx Schizophrenia Traumatic Medical History: Reports: Hx Fractures - Finger fracture Past Surgical History: Reports: Hx Abdominal Surgery, Hx Appendectomy, Hx Cholecystectomy, Hx Orthopedic Surgery - Immunizations Immunizations up to date: Yes Hx Diphtheria, Pertussis, Tetanus Vaccination: Yes - 2012 Hx Pneumococcal Vaccination: 08/23/00 Review of Systems - Review of Systems Constitutional: No symptoms reported EENT: No symptoms reported Cardiovascular: No symptoms reported Respiratory: No symptoms reported Gastrointestinal: See HPI, Other - Reflux symptoms Genitourinary: No symptoms reported Male Genitourinary: No symptoms reported Musculoskeletal: No symptoms reported Skin: No symptoms reported Hematologic/Lymphatic: No symptoms reported Neurological/Psychological: No symptoms reported -: Yes All other systems reviewed and negative Physical Exam - Vital signs Vitals: Temp Pulse Resp BP Pulse Ox 98.4 F 78 16 140/70 H 100 08/10/20 20:13 08/10/20 20:13 08/10/20 20:13 08/10/20 20:13 08/10/20 20:13 Interpretation: Hypertensive - Notes Notes: PHYSICAL EXAMINATION: GENERAL: Well-appearing, well-nourished and in no acute distress. HEAD: Atraumatic, normocephalic. EYES: Pupils equal round and reactive to light, extraocular movements intact, sclera anicteric, conjunctiva are normal. ENT: Examination patient's head and upper airway show nasal mucosa be very erythematous edematous with some greenish rhinorrhea draining from the right nare. Also noted patient has some redness to the left side of his cheek appears to be a staph type infection/cellulitis which he is being treated for. Further evaluation shows the oral cavity to be normal in appearance moist mucosa is also noted no erythema noted mild drainage in posterior pharynx of yellowish-green color. Airway patent NECK: Normal range of motion, supple without lymphadenopathy LUNGS: Breath sounds clear to auscultation bilaterally and equal. No wheezes rales or rhonchi. HEART: Regular rate and rhythm without murmurs NEUROLOGICAL: Normal speech, normal gait. Normal sensory, motor exams PSYCH: Normal mood, normal affect. SKIN: Warm, Dry, normal turgor, no rashes or lesions noted. Course - Re-evaluation Re-evalutation: I discussed with patient that the antibiotics can upset his stomach that chances are the soda he drank may have caused some irritation in the esophagus and that we gave him Pepcid which should relieve it. Patient was in agreement with this plan I wrote him a prescription but told him he could talk to the pharmacist and may be cheaper for him to get the Pepcid [id number]. 08/11/20 00:45 - Vital Signs Vital signs: Temp Pulse Resp BP Pulse Ox 98.4 F 78 16 140/70 H 100 08/10/20 20:27 08/10/20 20:13 08/10/20 20:13 08/10/20 20:13 08/10/20 20:13 - Laboratory Results Critical Laboratory Results Reviewed: No Critical Results - Radiology Results Critical Radiology Results Reviewed: No Critical Results Discharge - Discharge Clinical Impression: Reflux esophagitis Qualifiers: Esophagitis bleeding: without hemorrhage Qualified Code(s): K21.00 - Gastro- esophageal reflux disease with esophagitis, without bleeding Condition: Stable Disposition: HOME, SELF-CARE Instructions: Antacid Therapy ([facility]), Esophagitis ([facility]) Additional Instructions: As we discussed stay away from any sodas for the next 24 to 48 hours especially when the irritated your throat. You can start taking Pepcid [id number]-lvb-[id number] which is 20 mg twice a day and I will write you a prescription for it as well. Should you have any concerns or problems you can return to ER at anytime for reevaluation. Please note you must continue taking your antibiotic as prescribed. You can take your Zofran for nausea but this type of discomfort is not from nausea and is from an irritation so the pills we have placed you on should help with that. Prescriptions: Famotidine [Pepcid 20 mg Tablet] 20 mg PO BID #20 tablet Forms: Elevated Blood Pressure Referrals: GIANCARLO CHANCE MD [Primary Care Provider] - Follow up as needed
[2020-08-10] MEDS ORDERED: FAMOTIDINE 20 MG TABLET PO ONE (20:33)
== END 2020-08-10 20:39 | disposition home or self-care (01) ==
LOC: ER 20:08
DX: K21.00 Gastro-esophageal reflux disease with esophagitis, without bleeding (principal); R11.0 Nausea; Z79.899 Other long term (current) drug therapy; J45.909 Unspecified asthma, uncomplicated
CPT/HCPCS: 99282; J3490

== ENCOUNTER 2020-08-12 04:49 | Emergency (ER) | payer MEDICAID ==
[2020-08-12 05:08] VITALS: BP 123/71
--- NOTE | 2020-08-12 06:11 | ER Document Report ---
HPI - HPI Time Seen by Provider: 08/12/20 05:22 Pain Level: 1 Context: Patient is a 35-year-old male, well-known to this emergency department who presents to the emergency department with a headache and a slight runny nose. Patient has not tried any gbfr-ojf-pbyojfs medications to help with his symptoms. He states that he actually feels better than when he originally had a symptoms. States that the headache has almost completely gone away on its own. Patient states that he was out in the cold. States that he does have a place to stay, but states that he does not want to be there and "waste electricity." Patient has a history of asthma. Denies any shortness of breath. Patient was also started on Bactrim. He states that he wanted to see if the "bump" on his face was getting better. - ROS Systems Reviewed and Negative: Yes All other systems reviewed and negative - EENT EENT: REPORTS: Nasal Drainage-Clear - NEURO Neurology: REPORTS: Headache - CARDIOVASCULAR Cardiovascular: DENIES: Chest pain - RESPIRATORY Respiratory: DENIES: Trouble Breathing, Coughing - GASTROINTESTINAL Gastrointestinal: REPORTS: Abdominal Pain - Cramping. DENIES: Nausea, Patient vomiting - REPRODUCTIVE Reproductive: DENIES: : - MUSCULOSKELETAL Musculoskeletal: DENIES: Extremity pain - DERM Skin Color: Normal Skin Problems: None Past Medical History - General Information source: Patient - Social History Smoking Status: Never Smoker Family History: Reviewed & Not Pertinent Pulmonary Medical History: Reports: Hx Asthma, Hx Bronchitis GI Medical History: Reports: Hx Gastroesophageal Reflux Disease, Hx Irritable Bowel - Constipation Musculoskeletal Medical History: Reports Hx Arthritis, Reports Hx Musculoskeletal Trauma Psychiatric Medical History: Reports: Hx Anxiety, Hx Bipolar Disorder, Hx Depression, Hx Personality Disorder, Hx Schizoaffective Disorder, Hx Schizophrenia Traumatic Medical History: Reports: Hx Fractures - Finger fracture Past Surgical History: Reports: Hx Abdominal Surgery, Hx Appendectomy, Hx Cholecystectomy, Hx Orthopedic Surgery - Immunizations Immunizations up to date: Yes Hx Diphtheria, Pertussis, Tetanus Vaccination: Yes - 2012 Hx Pneumococcal Vaccination: 08/23/00 Vertical Provider Document - CONSTITUTIONAL Agree With Documented VS: Yes Exam Limitations: No Limitations General Appearance: No Apparent Distress - INFECTION CONTROL TRAVEL OUTSIDE OF THE [place] IN LAST 30 DAYS: No - HEENT HEENT: Atraumatic, Normocephalic, PERRLA - NECK Neck: Normal Inspection - RESPIRATORY Respiratory: Breath Sounds Normal, No Respiratory Distress - CARDIOVASCULAR Cardiovascular: Regular Rhythm, Bradycardia Pulses: Normal: Radial - MUSCULOSKELETAL/EXTREMETIES Musculoskeletal/Extremeties: FROM - NEURO Level of Consciousness: Awake, Alert, Appropriate Motor/Sensory: No Motor Deficit, No Sensory Deficit - DERM Integumentary: Warm, Dry, No Rash Course - Re-evaluation Re-evalutation: 08/12/20 06:11 The "bump" on the patient's face is actually indeed doing better. Advised him to continue his Bactrim. Advised patient to take kxzt-tse-kdvekiu cetirizine and Tylenol for his runny nose and headache. He is in agreement with this plan. Have a low suspicion for any life-threatening etiology at this time. Follow-up precautions were given. Verbal discharge instructions were given to the patient. They verbalized understanding. They are stable for discharge. - Vital Signs Vital signs: Temp Pulse Resp BP Pulse Ox 98.2 F 56 L 16 123/71 98 08/12/20 05:07 08/12/20 05:07 08/12/20 05:07 08/12/20 05:07 08/12/20 05:07 - Laboratory Results Critical Laboratory Results Reviewed: No Critical Results - Radiology Results Critical Radiology Results Reviewed: No Critical Results Discharge - Discharge Clinical Impression: Rhinorrhea Headache Qualifiers: Headache type: other headache syndrome Qualified Code(s): G44.89 - Other headache syndrome Condition: Stable Disposition: HOME, SELF-CARE Additional Instructions: You were seen today in the emergency department for a headache and runny nose. Take aoem-hbc-jnhtqln cetirizine/Zyrtec. You can also take rvvf-yqk-wupmtcc Tylenol. Follow-up with your primary care provider in regards to this visit. Referrals: GIANCARLO CHANCE MD [Primary Care Provider] - Follow up as needed
== END 2020-08-12 06:18 | disposition home or self-care (01) ==
LOC: ER 04:49
DX: G44.89 Other headache syndrome (principal); J34.89 Other specified disorders of nose and nasal sinuses; R10.9 Unspecified abdominal pain; R22.0 Localized swelling, mass and lump, head; J45.909 Unspecified asthma, uncomplicated
CPT/HCPCS: 99282

== ENCOUNTER 2020-08-16 14:14 | Emergency (ER) | payer MEDICAID ==
[2020-08-16 14:20] VITALS: BP 123/79
--- NOTE | 2020-08-16 14:55 | ER Document Report ---
HPI - HPI Patient complains to provider of: Ingestion Time Seen by Provider: 08/16/20 14:42 Pain Level: Denies Context: 35-year-old male well-known to the emergency room presents to the emergency to room today with concerns for possible ingestion of arm and Hammer 3 and 1 body wash. Patient states he went to get up some food in a plastic container that was discolored and may have had some residue left of the product. Patient states ingestion happened approximately 1 hour prior to arrival. Patient is currently asymptomatic with no complaints of shortness of breath, difficulty breathing. Nausea, vomiting, abdominal pain, or diarrhea. Informed patient that I would call poison control and notify him of any further treatment that would be required. Associated Symptoms: None Exacerbated by: Denies Relieved by: Denies Similar symptoms previously: No Recently seen / treated by doctor: Yes - Multiple emergency room visits - ROS Systems Reviewed and Negative: Yes All other systems reviewed and negative - CONSTITUTIONAL Constitutional: DENIES: Fever, Chills - EENT EENT: DENIES: Congestion - NEURO Neurology: DENIES: Headache - RESPIRATORY Respiratory: DENIES: Trouble Breathing, Coughing - GASTROINTESTINAL Gastrointestinal: DENIES: Abdominal Pain, Nausea, Patient vomiting, Diarrhea - DERM Skin Color: Normal Skin Problems: None Past Medical History - General Information source: Patient - Social History Smoking Status: Never Smoker Chew tobacco use (# tins/day): No Drug Abuse: None Family History: Reviewed & Not Pertinent Patient has homicidal ideation: No Pulmonary Medical History: Reports: Hx Asthma, Hx Bronchitis GI Medical History: Reports: Hx Gastroesophageal Reflux Disease, Hx Irritable Bowel - Constipation Musculoskeletal Medical History: Reports Hx Arthritis, Reports Hx Musculoskeletal Trauma Psychiatric Medical History: Reports: Hx Anxiety, Hx Bipolar Disorder, Hx Depression, Hx Personality Disorder, Hx Schizoaffective Disorder, Hx Schizophrenia Traumatic Medical History: Reports: Hx Fractures - Finger fracture Past Surgical History: Reports: Hx Abdominal Surgery, Hx Appendectomy, Hx Cholecystectomy, Hx Orthopedic Surgery - Immunizations Immunizations up to date: Yes Hx Diphtheria, Pertussis, Tetanus Vaccination: Yes - 2012 Hx Pneumococcal Vaccination: 08/23/00 Vertical Provider Document - CONSTITUTIONAL Agree With Documented VS: Yes Exam Limitations: No Limitations General Appearance: No Apparent Distress - INFECTION CONTROL TRAVEL OUTSIDE OF THE [place] IN LAST 30 DAYS: No - HEENT HEENT: Atraumatic - NECK Neck: Normal Inspection, Supple, Thyroid Normal - RESPIRATORY Respiratory: Breath Sounds Normal, No Respiratory Distress - CARDIOVASCULAR Cardiovascular: Regular Rate, Regular Rhythm, No Murmur - GI/ABDOMEN Gastrointestinal: Abdomen Soft, Abdomen Non-Tender - BACK Back: Normal Inspection - MUSCULOSKELETAL/EXTREMETIES Musculoskeletal/Extremeties: FROM - NEURO Level of Consciousness: Awake, Alert, Appropriate Motor/Sensory: No Motor Deficit, No Sensory Deficit Course - Re-evaluation Re-evalutation: 08/16/20 14:51 Call was placed to poison control to discuss possible ingestion of arm and Hammer 3 and 1 body wash. Per poison control product is nontoxic and recommends that patient can be safely discharged home if asymptomatic. States only symptoms he may develop some GI upset but if he is asymptomatic 1 hour postingestion he can safely be discharged home and they will follow-up outpatient. Patient is asymptomatic with no complaints of nausea, vomiting, no shortness of breath, no difficulty breathing. No GI symptoms. Patient was counseled to follow-up outpatient as needed. Patient was given strict return to the emergency room guidelines. Return for any new or worsening symptoms. All questions were answered. Patient verbalized understanding and agrees with plan of care. - Vital Signs Vital signs: Temp Pulse Resp BP Pulse Ox 97.8 F 98 20 123/79 97 08/16/20 14:17 08/16/20 14:17 08/16/20 14:17 08/16/20 14:17 08/16/20 14:17 - Laboratory Results Critical Laboratory Results Reviewed: No Critical Results - Radiology Results Critical Radiology Results Reviewed: No Critical Results Discharge - Discharge Clinical Impression: Ingestion of detergent or soap Condition: Stable Disposition: HOME, SELF-CARE Instructions: Overdose / Ingestion ([facility]) Additional Instructions: Per poison control the product that you may possibly have ingested is nontoxic appearing outpatient follow-up with your primary care physician as needed. Return to the emergency room for any new or worsening symptoms. Referrals: GIANCARLO CHANCE MD [Primary Care Provider] - Follow up as needed
== END 2020-08-16 15:20 | disposition home or self-care (01) ==
LOC: ER 14:14
DX: T65.91XA Toxic effect of unspecified substance, accidental (unintentional), initial encounter (principal); J45.909 Unspecified asthma, uncomplicated
CPT/HCPCS: 99282

== ENCOUNTER 2020-08-22 13:19 | Emergency (ER) | payer MEDICAID ==
--- NOTE | 2020-08-22 14:09 | ER Document Report ---
ED Medical Screen (RME) - General Chief Complaint: Lower Abdominal Pain Stated Complaint: LOW ABDOMINAL PAIN Time Seen by Provider: 08/22/20 14:00 Primary Care Provider: GIANCARLO CHANCE MD [Primary Care Provider] - Follow up as needed Notes: Pt presents complaining of left lower quadrant abdominal pain. Patient denies any nausea vomiting or diarrhea. Patient states last bowel movement was today. Patient denies any urinary symptoms. Patient is concerned that he needs blood work drawn to further evaluate the cause of his symptoms today. I have greeted and performed a rapid initial assessment of this patient. A comprehensive ED assessment and evaluation of the patient, analysis of test results and completion of the medical decision making process will be conducted by additional ED providers. TRAVEL OUTSIDE OF THE [place] IN LAST 30 DAYS: No - Related Data Allergies/Adverse Reactions: No Known Allergies Allergy (Verified 08/16/20 14:43) Past Medical History - Social History Family history: Reviewed & Not Pertinent Pulmonary Medical History: Reports: Hx Asthma, Hx Bronchitis GI Medical History: Reports: Hx Gastroesophageal Reflux Disease, Hx Irritable Bowel - Constipation Musculoskeltal Medical History: Reports Hx Arthritis, Reports Hx Musculoskeletal Trauma Psychiatric Medical History: Reports: Hx Anxiety, Hx Bipolar Disorder, Hx Depression, Hx Personality Disorder, Hx Schizoaffective Disorder, Hx Schizophrenia Traumatic Medical History: Reports: Hx Fractures - Finger fracture Past Surgical History: Reports: Hx Abdominal Surgery, Hx Appendectomy, Hx Cholecystectomy, Hx Orthopedic Surgery - Immunizations Immunizations up to date: Yes Hx Diphtheria, Pertussis, Tetanus Vaccination: Yes - 2012 Physical Exam - Abdominal Tenderness: Tender - LLQ pain Doctor's Discharge - Discharge Referrals: GIANCARLO CHANCE MD [Primary Care Provider] - Follow up as needed
[2020-08-22 14:10] VITALS: BP 108/64
--- NOTE | 2020-08-22 14:57 | RADIOLOGY REPORT (SQ) ---
EXAM DESCRIPTION: KUB/ABDOMEN (SINGLE VIEW) IMAGES COMPLETED DATE/TIME: 08/22/2020 2:41 pm REASON FOR STUDY: LLQ pain COMPARISON: None. NUMBER OF VIEWS: One view. TECHNIQUE: Supine radiographic image of the abdomen acquired. LIMITATIONS: None. FINDINGS: BOWEL GAS PATTERN: Normal bowel gas pattern. No dilated loops. CALCIFICATIONS: No suspicious calcifications. SOFT TISSUES: No gross mass or suggestion of organomegaly. HARDWARE: None in the abdomen. BONES: No acute fracture. No worrisome bone lesions. OTHER: No other significant finding. IMPRESSION: NO RADIOGRAPHIC EVIDENCE FOR ACUTE ABDOMINAL DISEASE. TECHNICAL DOCUMENTATION: JOB ID: [id number] 2010 [employer]- All Rights Reserved Reading location - IP/workstation name: [email or web address]
[2020-08-22 15:17] LABS: APPEARANCE,URINE CLEAR; BILIRUBIN,URINE NEGATIVE (NEGATIVE); COLOR,URINE YELLOW; GLUCOSE, URINE NEGATIVE (NEGATIVE); KETONES,URINE NEGATIVE (NEGATIVE); LEUKOCYTE ESTERASE,URINE NEGATIVE (NEGATIVE); NITRITE,URINE NEGATIVE (NEGATIVE); PROTEIN,URINE NEGATIVE (NEGATIVE); URINE SPECIFIC GRAVITY 1.017; UROBILINOGEN,URINE NEGATIVE mg/dL (<2.0)
[2020-08-22 15:18] LABS: HEMOGLOBIN 13.9 g/dL (13.5-17.0); MEAN CORPUSCULAR HEMOGLOBIN 26.9 pg (27.0-33.4); MEAN CORPUSCULAR HGB CONC 33.9 g/dL (32.0-36.0); MEAN CORPUSCULAR VOLUME 79 fl (80-97); PLATELET COUNT 222 10^3/uL (150-450); RED BLOOD COUNT 5.17 10^6/uL (4.35-5.55); RED CELL DISTRIBUTION WIDTH 14.1 % (11.5-14.0)
[2020-08-22 15:24] LABS: BLOOD UREA NITROGEN 18 mg/dL (7-20); CARBON DIOXIDE 31 mmol/L (22-30); CHLORIDE 103 mmol/L (98-107); GLUCOSE 94 mg/dL (75-110); POTASSIUM 5.1 mmol/L (3.6-5.0)
[2020-08-22 15:29] LABS: ANION GAP 5 (5-19)
[2020-08-22 15:52] LABS: ABSOLUTE LYMPHOCYTES# (MANUAL) 1.2 10^3/uL (0.5-4.7); ABSOLUTE MONOCYTES # (MANUAL) 0.1 10^3/uL (0.1-1.4); BASOPHILS % (MANUAL) 1 % (0-2); EOSINOPHILS % (MANUAL) 15 % (0-6); LYMPHOCYTES % (MANUAL) 39 % (13-45); MONOCYTES % (MANUAL) 4 % (3-13); SEGMENTED NEUTROPHILS % (MAN) 41 % (42-78); TOTAL CELLS COUNTED 100
[2020-08-22 15:53] LABS: ANISOCYTOSIS SLIGHT; PLATELET COMMENT ADEQUATE
== END 2020-08-22 18:35 | disposition left against medical advice (07) ==
LOC: ER 13:19
DX: R10.32 Left lower quadrant pain (principal); J45.909 Unspecified asthma, uncomplicated; Z90.49 Acquired absence of other specified parts of digestive tract; Z53.29 Procedure and treatment not carried out because of patient's decision for other reasons
CPT/HCPCS: 36415; 74018; 80048; 81001; 85025; 99281

== ENCOUNTER 2020-08-23 02:57 | Emergency (ER) | payer MEDICAID ==
[2020-08-23] MEDS ORDERED: LIDOCAINE 5% (700 MG) TRANSDERMAL ADH..PATCH TP ONE (09:31)
--- NOTE | 2020-08-23 09:36 | ER Document Report ---
ED General - General Chief Complaint: Back Pain Stated Complaint: BACK PAIN Primary Care Provider: GIANCARLO CHANCE MD [Primary Care Provider] - Follow up as needed TRAVEL OUTSIDE OF THE [place] IN LAST 30 DAYS: No - HPI Notes: Chief Complaint: Right-sided back pain Historian: History obtained from patient HPI: This is a homeless 35-year-old male presents to the ER complaining of left upper back pain since this morning. Patient says he must have "slept on it wrong". Patient points to the left trapezius area as where the pain is located. says it feels like a tight muscle. denies injury or trauma. Patient is well- known to the ER in the and presents to the ER multiple times a week. He denies numbness tingling or weakness to extremities. No incontinence or saddle anesthesia. Denies fever chills chest pain shortness of breath abdominal pain nausea vomiting. ROS: Constitutional: no fevers. HEENT: no LACKEY, sore throat, or vision changes. CV: no chest pain or palpitations. Resp: no cough or SOB. GI: no abdominal pain, or n/v/d. : no dysuria, hematuria, or incont. MSK: Left upper back pain Skin: no rashes or itching. Neuro: no seizures, weakness, numbness, or confusion. Hematological: no ecchymosis or easy bleeding. Endocrine: no polyuria/polydipsia, no heat/cold intolerance. Psych: no SI/HI, AH/VH or memory loss. PMHx: Reviewed and agree as charted by RN. PSHx: Reviewed and agree as charted by RN. SOCHx: Reviewed and agree as charted by RN. FHX: No significant familial comorbid conditions directly related to patient complaint Current Medications: Reviewed and agree with the patient medications as charted by the RN. Allergies: Reviewed and agree with the listed allergies as charted by the RN Physical Exam: Vitals: Reviewed in chart as documented by RN. General: Alert and in NAD. Head: Normocephalic; atraumatic Eyes: PERRLA, Conjunctivae clear sclerae non-icteric bilat ENT: no soft palate swelling or uvular deviation Neck: trachea midline, no unilateral swelling/tenderness/lymphadenopathy CV: RRR, no M/R/G; symmetric distal pulses Resp: respirations even and unlabored, CTA bilat. GI: abd soft and nondistended. NTTP. normal BS. no masses/HSM. no CVAT bilat MSK: FROM of all extremities. No midline CTL spine tenderness/deformity tender to left trapezius w/ muscle spasm palpated. no erythema or swelling. FROM shoulder and back. neurologically intact. Skin: warm, moist, good turgor. no rash/lesions Neuro: Alert and oriented X 4. following CN 2-12 intact. no unilateral weakness/numbness Psych: No SI/HI or AH/VH. ED Results: Medical Decision-Making: Medical Decision-making/Differential Diagnosis: Consider various etiologies including but not limited to Lumbar strain/sprain, radiculopathy, degenerative disease, spinal stenosis, skin/soft tissue structure injury, MSK injury, strain/sprain, fracture (low prob), dislocation (low prob), given patients reassuring history and physical as well as the absence of danger signs (concerning for infection, compressive myelopathy, malignancy, etc) plan for conservative management in the ED with topical lidocaine patch at pts request and a period of observation with reassessment and if clinical improvement/resolution, will consel on danger signs that should prompt a return visit to the ED, close defined primary care/subspecialty follow-up, and prescriptions. This course of action was discussed with the patient and/or family. They were amenable to this, verbalized understanding, and were without further questions. - Related Data Allergies/Adverse Reactions: No Known Allergies Allergy (Verified 08/16/20 14:43) Home Medications: albuterol Past Medical History - Social History Smoking Status: Never Smoker Family History: Reviewed & Not Pertinent Pulmonary Medical History: Reports: Hx Asthma, Hx Bronchitis GI Medical History: Reports: Hx Gastroesophageal Reflux Disease, Hx Irritable Bowel - Constipation Musculoskeletal Medical History: Reports Hx Arthritis, Reports Hx Musculoskeletal Trauma Psychiatric Medical History: Reports: Hx Anxiety, Hx Bipolar Disorder, Hx Depression, Hx Personality Disorder, Hx Schizoaffective Disorder, Hx Schizophrenia Traumatic Medical History: Reports: Hx Fractures - Finger fracture Past Surgical History: Reports: Hx Abdominal Surgery, Hx Appendectomy, Hx Cholecystectomy, Hx Orthopedic Surgery - Immunizations Immunizations up to date: Yes Hx Diphtheria, Pertussis, Tetanus Vaccination: Yes - 2012 Hx Pneumococcal Vaccination: 08/23/00 Physical Exam - Vital signs Vitals: Temp Pulse Resp BP Pulse Ox 97.8 F 82 24 H 148/82 H 99 08/23/20 03:19 08/23/20 03:19 08/23/20 03:08/23/20 03:08/23/20 03:19 Course - Vital Signs Vital signs: Temp Pulse Resp BP Pulse Ox 97.8 F 82 24 H 148/82 H 99 08/23/20 03:19 08/23/20 03:19 08/23/20 03:19 08/23/20 03:19 08/23/20 03:19 - Laboratory Results Critical Laboratory Results Reviewed: No Critical Results - Radiology Results Critical Radiology Results Reviewed: No Critical Results Discharge - Discharge Clinical Impression: Strain of left trapezius muscle Qualifiers: Encounter type: initial encounter Qualified Code(s): S46.812A - Strain of other muscles, fascia and tendons at shoulder and upper arm level, left arm, initial encounter Condition: Stable Disposition: HOME, SELF-CARE Referrals: GIANCARLO CHANCE MD [Primary Care Provider] - Follow up as needed
[2020-08-23 10:27] VITALS: BP 140/80
== END 2020-08-23 10:27 | disposition home or self-care (01) ==
LOC: ER 02:57
DX: S29.012A Strain of muscle and tendon of back wall of thorax, initial encounter (principal); X58.XXXA Exposure to other specified factors, initial encounter; M62.830 Muscle spasm of back; J45.909 Unspecified asthma, uncomplicated; Z79.899 Other long term (current) drug therapy
CPT/HCPCS: 99283; J3490

== ENCOUNTER 2020-08-23 16:33 | Emergency (ER) | payer MEDICAID ==
--- NOTE | 2020-08-23 17:51 | ER Document Report ---
HPI - HPI Time Seen by Provider: 08/23/20 17:48 Onset: Yesterday Onset/Duration: Gone Context: Patient states that he had a lidocaine patch applied to his left upper back area yesterday during his ER visit. Patient states that he had tingling to the site. Patient states he remove the patch and his symptoms have since resolved. Patient wanted to get checked out regarding his symptoms. Associated Symptoms: Other - Tingling to left upper back that is now resolved Exacerbated by: Denies Relieved by: Denies Similar symptoms previously: No Recently seen / treated by doctor: Yes - ROS ROS below otherwise negative: Yes Systems Reviewed and Negative: Yes All other systems reviewed and negative - CONSTITUTIONAL Constitutional: DENIES: Fever - CARDIOVASCULAR Cardiovascular: DENIES: Chest pain - RESPIRATORY Respiratory: DENIES: Coughing - MUSCULOSKELETAL Musculoskeletal: DENIES: Back Pain - DERM Skin Color: Normal Skin Problems: None Past Medical History - General Information source: Patient - Social History Smoking Status: Never Smoker Lives with: Alone Family History: Reviewed & Not Pertinent Pulmonary Medical History: Reports: Hx Asthma, Hx Bronchitis GI Medical History: Reports: Hx Gastroesophageal Reflux Disease, Hx Irritable Bowel - Constipation Musculoskeletal Medical History: Reports Hx Arthritis, Reports Hx Musculoskeletal Trauma Psychiatric Medical History: Reports: Hx Anxiety, Hx Bipolar Disorder, Hx Depression, Hx Personality Disorder, Hx Schizoaffective Disorder, Hx Schizophrenia Traumatic Medical History: Reports: Hx Fractures - Finger fracture Past Surgical History: Reports: Hx Abdominal Surgery, Hx Appendectomy, Hx Cholecystectomy, Hx Orthopedic Surgery - Immunizations Immunizations up to date: Yes Hx Diphtheria, Pertussis, Tetanus Vaccination: Yes - 2012 Hx Pneumococcal Vaccination: 08/23/00 Vertical Provider Document - CONSTITUTIONAL Agree With Documented VS: Yes Exam Limitations: No Limitations General Appearance: WD/WN, No Apparent Distress - INFECTION CONTROL TRAVEL OUTSIDE OF THE [place] IN LAST 30 DAYS: No - HEENT HEENT: Atraumatic, Normocephalic - NECK Neck: Normal Inspection - RESPIRATORY Respiratory: No Respiratory Distress - MUSCULOSKELETAL/EXTREMETIES Musculoskeletal/Extremeties: RIGO MCBRIDE - NEURO Level of Consciousness: Awake, Alert, Appropriate Motor/Sensory: No Motor Deficit - DERM Integumentary: Warm, Dry, No Rash Course - Re-evaluation Re-evalutation: 08/23/20 Patient very well-known to emergency department due to his frequent visits. Patient had concerns about tingling to his left upper back area after the application of the lidocaine patch. Patient reports symptoms resolved after he remove the patch. Patient without any acute findings today and was requesting reassurance. - Vital Signs Vital signs: Temp Pulse Resp BP Pulse Ox 98.2 F 87 19 114/72 96 08/23/20 16:37 08/23/20 16:37 08/23/20 16:37 08/23/20 16:37 08/23/20 16:37 - Laboratory Results Critical Laboratory Results Reviewed: No Critical Results - Radiology Results Critical Radiology Results Reviewed: No Critical Results Discharge - Discharge Clinical Impression: concern about health Condition: Stable Disposition: HOME, SELF-CARE Additional Instructions: Return immediately for any new or worsening symptoms Followup with your primary care provider, call tomorrow to make a followup appointment Referrals: GIANCARLO CHANCE MD [Primary Care Provider] - Follow up as needed
[2020-08-23 18:15] VITALS: BP 123/71
== END 2020-08-23 18:14 | disposition home or self-care (01) ==
LOC: ER 16:33
DX: R20.2 Paresthesia of skin (principal); J45.909 Unspecified asthma, uncomplicated
CPT/HCPCS: 99282

== ENCOUNTER 2020-08-24 04:06 | Emergency (ER) | payer MEDICAID ==
--- NOTE | 2020-08-24 09:32 | ER Document Report ---
HPI - HPI Time Seen by Provider: 08/24/20 09:21 Pain Level: Denies Notes: 35-year-old male with a history of asthma presents to the emergency room today for evaluation for "feelings of low oxygenation" and SOB he stated last night but since he has been "waiting in the emergency room for the last 5 hours, I feel 100% better". Patient states he did use his Symbicort 3 times this morning with relief. Denies any positive Covid test or being exposed to anyone who has had a positive Covid test. When rechecking his pulse oxygenation, he is on a percent on room air. Patient denies smoking. denies fevers, chills, chest pain,palpitations, shortness of breath, dyspnea, nausea, vomiting, diarrhea, abdominal pain, hematuria,blurred vision, double vision, loss of vision, speech changes, LH, dizziness, syncope, headaches, wheezing, ST, URI, neck pain, weakness, bowel or bladder dysfunction, saddle anesthesia, numbness or tingling in bilateral upper or lower extremities equally, muscle paralysis, weakness in bilateral upper or lower extremities equally or rash. - RESPIRATORY Respiratory: REPORTS: Trouble Breathing - REPRODUCTIVE Reproductive: DENIES: : Past Medical History - General Information source: Patient - Social History Smoking Status: Never Smoker Chew tobacco use (# tins/day): No Frequency of alcohol use: None Drug Abuse: None Family History: Reviewed & Not Pertinent Pulmonary Medical History: Reports: Hx Asthma, Hx Bronchitis GI Medical History: Reports: Hx Gastroesophageal Reflux Disease, Hx Irritable Bowel - Constipation Musculoskeletal Medical History: Reports Hx Arthritis, Reports Hx Musculoskeletal Trauma Psychiatric Medical History: Reports: Hx Anxiety, Hx Bipolar Disorder, Hx Depression, Hx Personality Disorder, Hx Schizoaffective Disorder, Hx Schizophrenia Traumatic Medical History: Reports: Hx Fractures - Finger fracture Past Surgical History: Reports: Hx Abdominal Surgery, Hx Appendectomy, Hx Cholecystectomy, Hx Orthopedic Surgery - Immunizations Immunizations up to date: Yes Hx Diphtheria, Pertussis, Tetanus Vaccination: Yes - 2012 Hx Pneumococcal Vaccination: 08/23/00 Vertical Provider Document - CONSTITUTIONAL Agree With Documented VS: Yes Exam Limitations: No Limitations General Appearance: WD/WN Notes: MEDICATIONS: I agree with the patient medications as charted by the RN. ALLERGIES: I agree with the allergies as charted by the RN. PAST MEDICAL HISTORY/PAST SURGICAL HISTORY: Reviewed and agree as charted by RN. SOCIAL HISTORY: Reviewed and agree as charted by RN. FAMILY HISTORY: No significant familial comorbid conditions directly related to patient complaint EXAM: Reviewed vital signs as charted by RN. PHYSICAL EXAMINATION:reviewed vital signs by RN GENERAL: Well-appearing, well-nourished and in no acute distress. HEAD: Atraumatic, normocephalic. EYES: Pupils equal round and reactive to light, extraocular movements intact, sclera anicteric, conjunctiva are normal. ENT: Nares patent, oropharynx clear without exudates. Moist mucous membranes. NECK: Normal range of motion, supple without lymphadenopathy LUNGS: Breath sounds clear to auscultation bilaterally and equal. No wheezes rales or rhonchi. HEART: Regular rate and rhythm without murmurs ABDOMEN: Soft, nontender, nondistended abdomen. No guarding, no rebound. No masses appreciated. Musculoskeletal: Normal range of motion, no pitting or edema. No cyanosis. NEUROLOGICAL: Cranial nerves grossly intact. Normal speech, normal gait. Normal sensory, motor exams PSYCH: Normal mood, normal affect. SKIN: Warm, Dry, normal turgor, no rashes or lesions noted. - INFECTION CONTROL TRAVEL OUTSIDE OF THE [place] IN LAST 30 DAYS: No Course - Re-evaluation Re-evalutation: 08/24/20 09:30 Afebrile vital stable no distress. Nurses notes reviewed. Afebrile, vital stable no distress. Nurses notes reviewed. On reevaluation, patient's pulse oxygenation 100% on room air. Patient's lung sounds clear to auscultation, no wheezing rhonchi or rales noted. Patient states he feels 100% better since he has been in the emergency room. He was wondering if cafeteria was still serving breakfast as he would like to get something to eat. Patient denies being around any Covid positive individuals or having a Covid positive test himself. Refuses any Covid testing today. Discussed with patient that I will prescribe him a rescue inhaler to carry on his person for when he does have asthma flareups. Advised to follow-up with his primary care provider within the next 24 to 48 hours. Patient was agreeable with this plan of care. I do not believe he needs any prednisone, or other asthma rescue medications aside from the proair at this time. After performing a Medical Screening Examination, I estimate there is LOW risk for ACUTE CORONARY SYNDROME, PULMONARY EMBOLI, RESPIRATORY FAILURE, SEPSIS OR MENINGITIS, thus I consider the discharge disposition reasonable. I have reevaluated this patient multiple times and no significant life threatening changes are noted. The patient and I have discussed the diagnosis and risks, and we agree with discharging home with close follow-up. We also discussed returning to the Emergency Department immediately if new or worsening symptoms occur. We have discussed the symptoms which are most concerning (e.g., changing or worsening pain, trouble swallowing or breathing, neck stiffness, fever) that necessitate immediate return. - Vital Signs Vital signs: Temp Pulse Resp BP Pulse Ox 98.1 F 62 20 138/67 H 98 08/24/20 04:12 08/24/20 04:12 08/24/20 04:12 08/24/20 04:12 08/24/20 04:12 - Laboratory Results Critical Laboratory Results Reviewed: No Critical Results - Radiology Results Critical Radiology Results Reviewed: No Critical Results Discharge - Discharge Clinical Impression: Asthma exacerbation Qualifiers: Asthma severity: mild Condition: Stable Disposition: HOME, SELF-CARE Instructions: Asthma ([facility]) Additional Instructions: Your oxygenation today is 100% on room air. Your lungs were clear to auscultation. Please carry rescue inhaler on your person for when you do have any asthma exacerbations. Follow-up with your primary care provider within the next 24 to 48 hours. Return immediately for any new or worsening symptoms. Follow up with primary care provider, call tomorrow to make followup appointment. Prescriptions: Albuterol Sulfate [Proair HFA Inhalation Aerosol 8.5 gm MDI] 2 puff IH Q4H PRN #1 mdi PRN Reason: Referrals: GIANCARLO CHANCE MD [Primary Care Provider] - Follow up as needed
[2020-08-24 09:35] VITALS: BP 121/64
== END 2020-08-24 09:33 | disposition home or self-care (01) ==
LOC: ER 04:06
DX: J45.901 Unspecified asthma with (acute) exacerbation (principal); Z90.49 Acquired absence of other specified parts of digestive tract
CPT/HCPCS: 99283

== ENCOUNTER 2020-08-25 07:13 | Emergency (ER) | payer MEDICAID ==
[2020-08-25 07:42] VITALS: BP 112/69
--- NOTE | 2020-08-25 09:31 | ER Document Report ---
HPI - HPI Time Seen by Provider: 08/25/20 09:19 Pain Level: 1 Context: Patient is a 35-year-old male that comes emergency department for chief complaint of right ear pain. He states he is worried he put something in his ear that got stuck, he states it felt swollen earlier, he states he felt some tenderness. However he states tenderness has resolved, swelling is resolved, and he has no current complaints. He denies any other complaints. He has a history of schizophrenia, homelessness, asthma. - REPRODUCTIVE Reproductive: DENIES: : Past Medical History - General Information source: Patient - Social History Smoking Status: Never Smoker Chew tobacco use (# tins/day): No Drug Abuse: None Lives with: Family Family History: Reviewed & Not Pertinent Patient has homicidal ideation: No Pulmonary Medical History: Reports: Hx Asthma, Hx Bronchitis GI Medical History: Reports: Hx Gastroesophageal Reflux Disease, Hx Irritable Bowel - Constipation Musculoskeletal Medical History: Reports Hx Arthritis, Reports Hx Musculoskeletal Trauma Psychiatric Medical History: Reports: Hx Anxiety, Hx Bipolar Disorder, Hx Depression, Hx Personality Disorder, Hx Schizoaffective Disorder, Hx Schizophrenia Traumatic Medical History: Reports: Hx Fractures - Finger fracture Past Surgical History: Reports: Hx Abdominal Surgery, Hx Appendectomy, Hx Cholecystectomy, Hx Orthopedic Surgery - Immunizations Immunizations up to date: Yes Hx Diphtheria, Pertussis, Tetanus Vaccination: Yes - 2012 Hx Pneumococcal Vaccination: 08/23/00 Vertical Provider Document - CONSTITUTIONAL General Appearance: WD/WN, No Apparent Distress - INFECTION CONTROL TRAVEL OUTSIDE OF THE [place] IN LAST 30 DAYS: No - HEENT HEENT: Atraumatic, Normal ENT Exam - Mild cerumen in the right ear canal, no erythema, swelling, bleeding, drainage, or concerning findings. Nontender mastoids. Unremarkable tympanic membranes. Otherwise unremarkable exam., Normocephalic, PERRLA. negative: Conjuctival Injection, Pharyngeal Exudate, Pharyngeal Tenderness, Pharyngeal Erythema, Tympanic Membrane Red - NECK Neck: Normal Inspection. negative: Lymphadenopathy-Left, Lymphadenopathy-Right - RESPIRATORY Respiratory: Breath Sounds Normal, No Respiratory Distress, Chest Non-Tender - CARDIOVASCULAR Cardiovascular: Regular Rate, Regular Rhythm - GI/ABDOMEN Gastrointestinal: Abdomen Soft, Abdomen Non-Tender. negative: Abdomen Tender - BACK Back: Normal Inspection - MUSCULOSKELETAL/EXTREMETIES Musculoskeletal/Extremeties: MAEW, FROM, Non-Tender - NEURO Level of Consciousness: Awake, Alert, Appropriate Motor/Sensory: No Motor Deficit, No Sensory Deficit - DERM Integumentary: Warm, No Rash Course - Re-evaluation Re-evalutation: On my evaluation patient happily eating a sandwich. He has no current complaints. Ears are both unremarkable, remaining physically exam unremarkable, vital signs unremarkable. Patient with no other concerns or complaints, states appreciation for evaluation. Stable for discharge. - Vital Signs Vital signs: Temp Pulse Resp BP Pulse Ox 97.6 F 51 L 18 112/69 100 08/25/20 07:41 08/25/20 07:41 08/25/20 07:41 08/25/20 07:41 08/25/20 07:41 - Laboratory Results Critical Laboratory Results Reviewed: No Critical Results - Radiology Results Critical Radiology Results Reviewed: No Critical Results Discharge - Discharge Clinical Impression: Right ear pain Condition: Stable Disposition: HOME, SELF-CARE Additional Instructions: You have some wax in your canal, this is normal. Your exam does not show any concerning findings. You can place peroxide in your ear to clean this and soften wax. Avoid sticking any objects in your ear. Follow-up with primary care. Return for any concerning symptoms including severe pain, swelling, fever, vomiting, or any other concerning symptoms. Referrals: GIANCARLO CHANCE MD [Primary Care Provider] - Follow up as needed
== END 2020-08-25 09:40 | disposition home or self-care (01) ==
LOC: ER 07:13
DX: H92.01 Otalgia, right ear (principal); H61.21 Impacted cerumen, right ear; J45.909 Unspecified asthma, uncomplicated
CPT/HCPCS: 99282

== ENCOUNTER 2020-08-27 18:52 | Emergency (ER) | payer MEDICAID ==
[2020-08-27 20:33] VITALS: BP 124/72
--- NOTE | 2020-08-27 20:33 | ER Document Report ---
HPI - HPI Time Seen by Provider: 08/27/20 20:23 Pain Level: Denies Notes: 35-year-old male who is well-known to [facility] presents to the emergency room today for evaluation of right inner ear abrasion that he suspects he has as well as sometimes having intermittent gas. Has not tried any [id number] medications. Denies fevers, chills, chest pain,palpitations, shortness of breath, dyspnea, nausea, vomiting, diarrhea, abdominal pain, hematuria,blurred vision, double vision, loss of vision, speech changes, LH, dizziness, syncope, headaches, wheezing, ST, URI, neck pain, weakness, bowel or bladder dysfunction, saddle anesthesia, numbness or tingling in bilateral upper or lower extremities equally, muscle paralysis, weakness in bilateral upper or lower extremities equally or rash. Denies IV drug use. - REPRODUCTIVE Reproductive: DENIES: : Past Medical History - General Information source: Patient - Social History Smoking Status: Former Smoker Frequency of alcohol use: None Drug Abuse: None Family History: Reviewed & Not Pertinent Pulmonary Medical History: Reports: Hx Asthma, Hx Bronchitis GI Medical History: Reports: Hx Gastroesophageal Reflux Disease, Hx Irritable Bowel - Constipation Musculoskeletal Medical History: Reports Hx Arthritis, Reports Hx Musculoskeletal Trauma Psychiatric Medical History: Reports: Hx Anxiety, Hx Bipolar Disorder, Hx Depression, Hx Personality Disorder, Hx Schizoaffective Disorder, Hx Schizophrenia Traumatic Medical History: Reports: Hx Fractures - Finger fracture Past Surgical History: Reports: Hx Abdominal Surgery, Hx Appendectomy, Hx Cholecystectomy, Hx Orthopedic Surgery - Immunizations Immunizations up to date: Yes Hx Diphtheria, Pertussis, Tetanus Vaccination: Yes - 2012 Hx Pneumococcal Vaccination: 08/23/00 Vertical Provider Document - CONSTITUTIONAL Agree With Documented VS: Yes Exam Limitations: No Limitations General Appearance: WD/WN Notes: MEDICATIONS: I agree with the patient medications as charted by the RN. ALLERGIES: I agree with the allergies as charted by the RN. PAST MEDICAL HISTORY/PAST SURGICAL HISTORY: Reviewed and agree as charted by RN. SOCIAL HISTORY: Reviewed and agree as charted by RN. FAMILY HISTORY: No significant familial comorbid conditions directly related to patient complaint EXAM: Reviewed vital signs as charted by RN. PHYSICAL EXAMINATION:reviewed vital signs by RN GENERAL: Well-appearing, well-nourished and in no acute distress. HEAD: Atraumatic, normocephalic. EYES: Pupils equal round and reactive to light, extraocular movements intact, sclera anicteric, conjunctiva are normal. ENT: Bilateral external canals without any erythema induration exudates, TM without any erythema intact, light reflex present bilaterally. nares patent, oropharynx clear without exudates. Moist mucous membranes. Uvula midline. No trismus NECK: Normal range of motion, supple without lymphadenopathy LUNGS: Breath sounds clear to auscultation bilaterally and equal. No wheezes rales or rhonchi. HEART: Regular rate and rhythm without murmurs ABDOMEN: Soft, nontender, nondistended abdomen. No guarding, no rebound. No masses appreciated. No CVA tenderness appreciated bilaterally Musculoskeletal: Normal range of motion, no pitting or edema. No cyanosis. NEUROLOGICAL: Cranial nerves grossly intact. Normal speech, normal gait. Normal sensory, motor exams PSYCH: Normal mood, normal affect. SKIN: Warm, Dry, normal turgor, no rashes or lesions noted. - INFECTION CONTROL TRAVEL OUTSIDE OF THE [place] IN LAST 30 DAYS: No Course - Re-evaluation Re-evalutation: 08/27/20 20:34 Afebrile vital stable no distress. Nursing notes reviewed. Discussed with patient that he had a normal ENT exam, advised that he may want to clip his fingernails as he may be causing pain to his ear every time he scratches it, patient went came into the emergency room wearing earphones, we discussed cleaning earphones so it does not bother his inner ear canal. Denies any new foods, travel or medications. discussed that with patient that gas is a normal part of the digestive system. pt All questions and concerns were answered. Patient verbalized understanding this plan of care. After performing a Medical Screening Examination, I estimate there is LOW risk for malignant otitis media, mastoiditis, MENINGITIS, or ACUTE CORONARY SYNDROME, thus I consider the discharge disposition reasonable. I have reevaluated this patient multiple times and no significant life threatening changes are noted. The patient and I have discussed the diagnosis and risks, and we agree with discharging home to follow-up on an outpatient basis with the understanding that symptoms and presentations can change. We also discussed returning to the Emergency Department immediately if new or worsening symptoms occur. We have discussed the symptoms which are most concerning (e.g., high fevers, confusion) that necessitate immediate return. - Laboratory Results Critical Laboratory Results Reviewed: No Critical Results - Radiology Results Critical Radiology Results Reviewed: No Critical Results Discharge - Discharge Clinical Impression: Normal ear exam Condition: Stable Disposition: HOME, SELF-CARE Additional Instructions: Your exam today of your ears were normal. It is advised that you cut your fingernail cetyl accidentally scratch the inside of your the outside of the ear. Wash it regularly with soap and water as needed. follow-up with your primary care provider as needed. Return immediately for any new or worsening symptoms. Follow up with primary care provider, call tomorrow to make followup appointment. Referrals: GIANCARLO CHANCE MD [Primary Care Provider] - Follow up as needed
== END 2020-08-27 20:31 | disposition home or self-care (01) ==
LOC: ER 18:52
DX: Z04.89 Encounter for examination and observation for other specified reasons (principal)
CPT/HCPCS: 99282

== ENCOUNTER 2020-08-28 04:28 | Emergency (ER) | payer MEDICAID ==
[2020-08-28 05:37] VITALS: BP 120/74
--- NOTE | 2020-08-28 05:39 | ER Document Report ---
ED ENT - General Chief Complaint: Ear Pain Stated Complaint: PAIN IN EAR Time Seen by Provider: 08/28/20 05:20 Primary Care Provider: GIANCARLO CHANCE MD [Primary Care Provider] - Follow up as needed SADAF PIRES MD [ACTIVE STAFF] - Follow up as needed Mode of Arrival: Ambulatory Information source: Patient Notes: 35-year-old male presented to ED for complaint of right ear pain. He states that he was told that he had a infection in his outer ear several days ago and he did not get the medications and he was worried that he was glues his ear. He did not have any signs or symptoms of otitis externa or otitis media on either ear. There was no abnormalities noted on either ear. Patient was alert oriented respirations regular nonlabored speaking in full sentences. I did give him instructions to take Tylenol Motrin or [id number] eardrops if he continued to have pain. I also gave him the name and number of a ENT doctor if he continued to have pains. Constitutional: Negative for fever. HENT: Negative for sore throat. Eyes: Negative for visual changes. Cardiovascular: Negative for chest pain. Respiratory: Negative for shortness of breath. Gastrointestinal: Negative for abdominal pain, vomiting or diarrhea. Genitourinary: Negative for dysuria. Musculoskeletal: Negative for back pain. Skin: Negative for rash. Neurological: Negative for headaches, weakness or numbness. 10 point ROS negative except as marked above and in HPI. VITAL SIGNS: Within normal limits. GENERAL: No acute distress, non-toxic appearance. HEAD: Normal with no signs of head trauma. EYES: PERRLA, EOMI, conjunctiva normal, no discharge. EARS: Hearing grossly intact. NOSE: Normal. THROAT: Oropharynx is normal. NECK: Normal range of motion, no tenderness, supple, no lymphadenopathy, No adenopathy, no JVD. CHEST: Clear breath sounds bilaterally. No wheezes, rales, or rhonchi. CARDIAC: Regular rate and rhythm. S1 and S2, without murmurs, gallops, or rubs. VASCULAR: No Edema. Peripheral pulses normal and equal in all extremities. ABDOMEN: Normal and soft with no tenderness, no masses or pulsatile masses. GASTROINTESTINAL: Bowel sounds normal GENITOURINARY: Normal, No tenderness LYMPATHTIC: No lymphadenopathy noted. MUSCULOSKELETAL: Good range of motion of all major joints. Extremities without clubbing, cyanosis or edema. NEUROLOGICAL: Alert and oriented x 3. No focal sensory or strength deficits. Speech normal. Follows commands appropriately. PSYCHIATRIC: Normal Affect, judgement and mood. SKIN: Normal appearance with no rashes or lesions. TRAVEL OUTSIDE OF THE [place] IN LAST 30 DAYS: No - HPI Patient complains to provider of: Ear problem Onset: Other - States he has had the pain for several weeks and then had increased pain a couple days ago Onset/Duration: Persistent Quality of pain: Achy Severity: Mild Pain Level: 1 Location of pain: Ears Associated symptoms: Ear pain Similar symptoms previously: Yes Recently seen / treated by doctor: Yes - Related Data Allergies/Adverse Reactions: No Known Allergies Allergy (Verified 08/28/20 05:22) Past Medical History - General Information source: Patient - Social History Smoking Status: Former Smoker Frequency of alcohol use: None Drug Abuse: None Family History: Reviewed & Not Pertinent Patient has suicidal ideation: No Patient has homicidal ideation: No - Past Medical History Cardiac Medical History: Reports: None Pulmonary Medical History: Reports: Hx Asthma, Hx Bronchitis EENT Medical History: Reports: Ears Neurological Medical History: Reports: None Endocrine Medical History: Reports: None Renal/ Medical History: Reports: None Malignancy Medical History: Reports None GI Medical History: Reports: Hx Gastroesophageal Reflux Disease, Hx Irritable Bowel - Constipation Musculoskeletal Medical History: Reports Hx Arthritis, Reports Hx Musculoskeletal Trauma Skin Medical History: Reports None Psychiatric Medical History: Reports: Hx Anxiety, Hx Bipolar Disorder, Hx Depression, Hx Personality Disorder, Hx Schizoaffective Disorder, Hx Schizophrenia Traumatic Medical History: Reports: Hx Fractures - Finger fracture Infectious Medical History: Reports: None Past Surgical History: Reports: Hx Abdominal Surgery, Hx Appendectomy, Hx Cholecystectomy, Hx Orthopedic Surgery - Immunizations Immunizations up to date: Yes Hx Diphtheria, Pertussis, Tetanus Vaccination: Yes - 2012 Hx Pneumococcal Vaccination: 08/23/00 Physical Exam - Vital signs Vitals: Temp Pulse Resp BP Pulse Ox 98.1 F 76 16 140/83 H 98 08/28/20 05:00 08/28/20 05:00 08/28/20 05:00 08/28/20 05:00 08/28/20 05:00 Course - Vital Signs Vital signs: Temp Pulse Resp BP Pulse Ox 98.4 F 68 16 120/74 98 08/28/20 05:34 08/28/20 05:34 08/28/20 05:34 08/28/20 05:34 08/28/20 05:34 - Laboratory Results Critical Laboratory Results Reviewed: No Critical Results - Radiology Results Critical Radiology Results Reviewed: No Critical Results Discharge - Discharge Clinical Impression: Right ear pain Condition: Stable Disposition: HOME, SELF-CARE Additional Instructions: You were seen today for right ear pain No signs or symptoms of an infection to your right ear. Acetaminophen Acetaminophen may be taken for pain relief or fever control. It's much safer than aspirin, offering a wider range of "safe" dosages. It is safe during . Some brand names are Tylenol, Panadol, Datril, Anacin 3, Tempra, and Liquiprin. Acetaminophen can be repeated every four hours. The following are maximum recommended dosages: WEIGHT Dose Drops Elixir Chewable(80mg) (LBS.) drprs=droppers tsp=teaspoon 6 40 mg .4 ml (1/2) 6-11 80 mg .8 ml (full) 1/2 tsp 1 tab 12-16 120 mg 1 1/2 drprs 3/4 tsp 1 1/2 tabs 17-23 160 mg 2 drprs 1 tsp 2 tabs 24-30 240 mg 3 drprs 1 1/2 tsp 3 tabs 30-35 320 mg 2 tsp 4 tabs 36-41 360 mg 2 1/4 tsp 4 1/2 tabs 42-47 400 mg 2 1/2 tsp 5 tabs 48-53 480 mg 3 tsp 6 tabs 54-59 520 mg 3 1/4 tsp 6 1/2 tabs 60-64 560 mg 3 1/2 tsp 7 tabs 65-70 600 mg 3 3/4 tsp 7 1/2 tabs 71-76 640 mg 4 tsp 8 tabs 77-82 720 mg 4 1/2 tsp 9 tabs 83-88 800 mg 5 tsp 10 tabs >89 pounds or adults 650 mg to 900 mg Acetaminophen can be repeated every four hours. Maximum daily dose not to exceed 4000 mg. These maximum recommended dosages are slightly higher than the dosages written on the product container, but these dosages are very safe and well below the toxic dosage for acetaminophen. Ibuprofen Ibuprofen is an excellent, safe drug for pain control. In addition, it has potent antiinflammatory effects which are beneficial, especially in the treatment of injuries, arthritis, or tendonitis. It's best to take ibuprofen with food. Persons with ulcer disease or allergy to aspirin should notify their physician of this before taking ibuprofen. Take the medication exactly as prescribed. Don't take additional doses unless instructed to do so by your doctor. If you develop wheezing, shortness of breath, hives, faintness, stomach pain, vomiting, or dark black stools, return for re-evaluation at once. You can get [id number] eardrops for discomfort if you would like to try those FOLLOW-UP CARE: If you have been referred to a physician for follow-up care, call the physicians office for an appointment as you were instructed or within the next two days. If you experience worsening or a significant change in your symptoms, notify the physician immediately or return to the Emergency Department at any time for re-evaluation. Referrals: GIANCARLO CHANCE MD [Primary Care Provider] - Follow up as needed SADAF PIRES MD [ACTIVE STAFF] - Follow up as needed
== END 2020-08-28 05:34 | disposition home or self-care (01) ==
LOC: ER 04:28
DX: H92.01 Otalgia, right ear (principal); Z90.49 Acquired absence of other specified parts of digestive tract
CPT/HCPCS: 99282

== ENCOUNTER 2020-08-29 23:47 | Emergency (ER) | payer MEDICAID ==
[2020-08-29 23:56] VITALS: BP 136/84
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
== END 2020-08-30 01:15 | disposition home or self-care (01) ==
LOC: ER 23:47
DX: Z77.110 Contact with and (suspected) exposure to air pollution (principal); R42 Dizziness and giddiness; R11.0 Nausea; J45.909 Unspecified asthma, uncomplicated
CPT/HCPCS: 99281

== ENCOUNTER 2020-09-04 19:02 | Emergency (ER) | payer MEDICAID ==
[2020-09-04 19:34] VITALS: BP 115/66
[2020-09-04] MEDS ORDERED: PSEUDOEPHEDRINE HCL 30 MG TABLET PO ONE (20:12)
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
== END 2020-09-04 20:50 | disposition home or self-care (01) ==
LOC: ER 19:02
DX: R51.9 Headache, unspecified (principal); R09.81 Nasal congestion
CPT/HCPCS: 99283

== ENCOUNTER 2020-09-10 06:32 | Emergency (ER) | payer MEDICAID ==
--- NOTE | 2020-09-10 08:17 | ER Document Report ---
ED ENT - General Chief Complaint: Sore Throat Stated Complaint: SORE THROAT Time Seen by Provider: 09/10/20 08:04 Primary Care Provider: GIANCARLO CHANCE MD [Primary Care Provider] - Follow up as needed Information source: Patient, [facility] Records Notes: This 35-year-old schizophrenic male comes emergency room complaining of sore throat, runny nose and nasal congestion. No fevers. No loss of smell or taste. No nausea vomiting or diarrhea. ER visit today makes 16 visits out of the last 30 days. This is not unusual for this patient to come here sometimes several days in a row. TRAVEL OUTSIDE OF THE [place] IN LAST 30 DAYS: No - Related Data Allergies/Adverse Reactions: No Known Allergies Allergy (Verified 09/10/20 07:02) Past Medical History - General Information source: Patient, [facility] Records - Social History Smoking Status: Former Smoker Cigarette use (# per day): No Chew tobacco use (# tins/day): No Smoking Education Provided: No Frequency of alcohol use: None Drug Abuse: None Occupation: Unemployed Family History: Reviewed & Not Pertinent Pulmonary Medical History: Reports: Hx Asthma, Hx Bronchitis GI Medical History: Reports: Hx Gastroesophageal Reflux Disease, Hx Irritable Bowel - Constipation Musculoskeletal Medical History: Reports Hx Arthritis, Reports Hx Musculoskeletal Trauma Psychiatric Medical History: Reports: Hx Anxiety, Hx Bipolar Disorder, Hx Depression, Hx Personality Disorder, Hx Schizoaffective Disorder, Hx Schizophrenia Traumatic Medical History: Reports: Hx Fractures - Finger fracture Past Surgical History: Reports: Hx Abdominal Surgery, Hx Appendectomy, Hx Cholecystectomy, Hx Orthopedic Surgery - Immunizations Immunizations up to date: Yes Hx Diphtheria, Pertussis, Tetanus Vaccination: Yes - 2012 Hx Pneumococcal Vaccination: 08/23/00 Review of Systems - Review of Systems Constitutional: No symptoms reported EENT: Nose congestion, Nose discharge, Throat pain Cardiovascular: No symptoms reported Respiratory: Cough - Minimal cough Gastrointestinal: No symptoms reported Genitourinary: No symptoms reported Musculoskeletal: No symptoms reported Skin: No symptoms reported Hematologic/Lymphatic: No symptoms reported Neurological/Psychological: No symptoms reported Physical Exam - Vital signs Vitals: Temp Pulse Resp BP Pulse Ox 98.2 F 50 L 18 142/70 H 98 09/10/20 06:43 09/10/20 06:43 09/10/20 06:43 09/10/20 06:43 09/10/20 06:43 - HEENT Head: Normocephalic, Atraumatic Eyes: Normal Pupils: PERRL Nasal: Clear rhinorrhea Pharynx: Normal Neck: Normal - Respiratory Respiratory status: No respiratory distress Breath sounds: Normal - Cardiovascular Rhythm: Regular - Abdominal Inspection: Normal - Back Back: Normal - Extremities General upper extremity: Normal inspection General lower extremity: Normal inspection - Neurological Neuro grossly intact: Yes - Psychological Associated symptoms: Normal affect, Normal mood - Skin Skin Temperature: Warm Skin Moisture: Dry Skin Color: Normal Course - Re-evaluation Re-evalutation: 09/10/20 09:16 Rapid flu and rapid stress testing are negative. 09/10/20 09:17 The patient was evaluated during the global COVID-19 pandemic and that diagnosis was suspected/considered upon their initial presentation. Their evaluation, treatment and testing was consistent with current guidelines for patients who present with complaints or symptoms that may be related to COVID-19. - Vital Signs Vital signs: Temp Pulse Resp BP Pulse Ox 98.2 F 62 18 138/68 H 100 09/10/20 06:43 09/10/20 09:27 09/10/20 09:27 09/10/20 09:27 09/10/20 09:27 - Laboratory Results Critical Laboratory Results Reviewed: No Critical Results - Radiology Results Critical Radiology Results Reviewed: No Critical Results Discharge - Discharge Clinical Impression: Upper respiratory tract infection Qualifiers: URI type: unspecified URI Qualified Code(s): J06.9 - Acute upper respiratory infection, unspecified Condition: Stable Disposition: HOME, SELF-CARE Instructions: COVID-19 Guidance for Persons Under Investigation Additional Instructions: Upper Respiratory Illness You have a viral infection of the respiratory passages -- a "cold." This common infection causes nasal congestion, drainage, and often sore throat and cough. It is caused by a virus and is highly contagious. The disease usually lasts a week or more, though the worst symptoms are usually over in 3 or 4 days. There is no "cure" for the viral infection -- it must run its course. If there is a complication, such as bacterial infection in the nose, sinuses, middle ear, or bronchial tubes, antibiotics may be required, but antibiotics won't affect the virus. If you smoke, you should STOP!! Drink plenty of fluids. A humidifier may help. An expectorant medication or decongestant may make you more comfortable. Use acetaminophen or ibuprofen for fever or aches. See the doctor if fever persists over two or three days, if there is any significant worsening of your symptoms, or if you simply fail to improve as expected. Self isolate at home until you get the results back of your Covid testing. Take Tylenol and ibuprofen for pain and fever if needed. Drink plenty of fluids and get plenty of rest. Follow-up with Dr. Chance as needed. RETURN TO THE EMERGENCY ROOM IF ANY NEW OR WORSENING SYMPTOMS. Referrals: GIANCARLO CHANCE MD [Primary Care Provider] - Follow up as needed
[2020-09-10 08:53] LABS: A TYPE INFLUENZA AG NEGATIVE (NEGATIVE); B INFLUENZA AG NEGATIVE (NEGATIVE)
[2020-09-10 09:28] VITALS: BP 138/68
== END 2020-09-10 09:25 | disposition home or self-care (01) ==
LOC: ER 06:32
DX: J06.9 Acute upper respiratory infection, unspecified (principal); J02.9 Acute pharyngitis, unspecified; R09.89 Other specified symptoms and signs involving the circulatory and respiratory systems; R09.81 Nasal congestion; R05 Cough; J45.909 Unspecified asthma, uncomplicated; Z87.891 Personal history of nicotine dependence; Z20.822 Contact with and (suspected) exposure to COVID-19
CPT/HCPCS: 87070; 87804; 87880; 99283

== ENCOUNTER → 2020-09-11 | Outpatient (CLI) | payer MEDICAID ==
[2020-09-11 09:59] VITALS: BP 119/77
--- NOTE | 2020-09-11 09:59 | ER RDC ASSESSMENT REPORT ---
Intake - In the Last 14 days Have you traveled outside [place]?: No Have you been in close contact with someone CONFIRMED: No Worked in Healthcare?: No - Symptoms Subjective Fever(Julian feverish): No Chills: No Muscule Aches: No Runny Nose: No Sore Throat: No Cough (New or worsening chronic cough): No Shortness of breath: No Nausea or Vomiting: No Headache: No Abdominal Pain: No Diarrhea(3 or more loose stools in last 24 hours): No - Do you have any of the following Chronic lung disease: Asthma or emphysema or COPD: Yes Cystic Fibrosis: No Diabetes: No High Blood Pressure: No Cardiovascular Disease: No Chronic Kidney Disease: No Chronic Liver Disease: No Chronic blood disorder like Sickle Cell Disease: No Weak immune system due to disease or medication: No Neurologic condition that limits movement: No Developmental delay - Moderate to Severe: No Morbid Obesity (>100 pounds over ideal weight): No - Objective Temperature: 98.6 F Pulse Rate: 72 Respiratory Rate: 18 Blood Pressure: 119/77 O2 Sat by Pulse Oximetry: 99 Objective: Given above, testing performed: Disposition: Home; Selfcare General - General Stated Complaint: asymptomatic covid screen Time Seen by Provider: 09/11/20 09:15 Mode of Arrival: Ambulatory Information source: Patient - HPI Notes: Patient presents to clinic for COVID-19 testing. Denies any known contact with a COVID 19 positive individual. Patient is asymptomatic. They deny any cough, shortness of breath, fever, chills, muscle aches, rhinorrhea, sore throat, nausea or vomiting, headache, abdominal pain or diarrhea. Patient has no acute medical concerns. - Related Data Allergies/Adverse Reactions: No Known Allergies Allergy (Verified 09/10/20 07:02) Past Medical History - General Information source: Patient - Social History Smoking Status: Former Smoker Family History: Reviewed & Not Pertinent - Past Medical History Cardiac Medical History: Reports: None Pulmonary Medical History: Reports: Hx Asthma, Hx Bronchitis EENT Medical History: Reports: None Neurological Medical History: Reports: None Endocrine Medical History: Reports: None Renal/ Medical History: Reports: None Malignancy Medical History: Reports None GI Medical History: Reports: Hx Gastroesophageal Reflux Disease, Hx Irritable Bowel - Constipation Musculoskeletal Medical History: Reports Hx Arthritis, Reports Hx Musculoskeletal Trauma Skin Medical History: Reports None Psychiatric Medical History: Reports: Hx Anxiety, Hx Bipolar Disorder, Hx Depression, Hx Personality Disorder, Hx Schizoaffective Disorder, Hx Schizophrenia Traumatic Medical History: Reports: Hx Fractures - Finger fracture Infectious Medical History: Reports: None Past Surgical History: Reports: Hx Abdominal Surgery, Hx Appendectomy, Hx Cholecystectomy, Hx Orthopedic Surgery Physical Exam - General General appearance: Appears well, Alert In distress: None Notes: PHYSICAL EXAMINATION: GENERAL: Well-appearing and in no acute distress. HEAD: Atraumatic, normocephalic. EYES: sclera anicteric, conjunctiva are normal. ENT: nares patent. Moist mucous membranes. NECK: Normal range of motion, supple without lymphadenopathy. LUNGS: No increased work of breathing. Lung sounds CTAB and equal. No wheezes rales or rhonchi. HEART: Regular rate and rhythm without murmurs. ABDOMEN: Soft, nontender, normal bowel sounds, no guarding. EXTREMITIES: Normal range of motion, no pitting edema. No cyanosis. NEUROLOGICAL: A&O x 3. Normal speech. PSYCH: Normal mood, normal affect. SKIN: Warm, Dry, normal turgor, no rashes or lesions noted Patient Education/Counseling Counseling/Education: Unable to collect specimen. Collection was attempted x4 but patient refused to allow swab to be inserted to point needed for accurate specimen collection RDC Discharge - Discharge Clinical Impression: Encounter for screening laboratory testing for COVID-19 virus in asymptomatic patient Condition: Good Disposition: Home; Selfcare
== END ==
LOC: RDC 08:54
PROVIDERS: ATTEND Registered Nurse
DX: Z20.822 Contact with and (suspected) exposure to COVID-19 (principal); Z53.8 Procedure and treatment not carried out for other reasons; K21.9 Gastro-esophageal reflux disease without esophagitis; F41.9 Anxiety disorder, unspecified; F31.9 Bipolar disorder, unspecified; F20.9 Schizophrenia, unspecified; F60.9 Personality disorder, unspecified

== ENCOUNTER 2020-09-15 02:50 | Emergency (ER) | payer MEDICAID ==
[2020-09-15 02:59] VITALS: BP 130/72
--- NOTE | 2020-09-15 03:09 | ER Document Report ---
HPI - HPI Patient complains to provider of: Short of breath in the cold Time Seen by Provider: 09/15/20 02:54 Onset: Just prior to arrival Onset/Duration: Better Quality of pain: No pain Severity: None Pain Level: Denies Context: 35-year-old male presented to ED for complaint of short of breath because it is so cold that tonight. He is homeless and is out in the open. He states he got very cold felt like he was a little dehydrated ate some the test years and it became short of breath. He is alert oriented respirations regular nonlabored speaking in full sentences. O2 sats 100% respirations are 16 temperature is 97.6 pulse and blood pressure are normal. He states he actually feels better now that he is warmed up a little bit. He states he would like a glass of water before being discharged. He states that he just got cold outside today. Constitutional: Negative for fever. HENT: Negative for sore throat. Eyes: Negative for visual changes. Cardiovascular: Negative for chest pain. Respiratory: States he was sleeping outside in the cold a simple states she has got short of breath states he feels better now that he is warmed up a little bit Gastrointestinal: Negative for abdominal pain, vomiting or diarrhea. Genitourinary: Negative for dysuria. Musculoskeletal: Negative for back pain. Skin: Negative for rash. Neurological: Negative for headaches, weakness or numbness. 10 point ROS negative except as marked above and in HPI. VITAL SIGNS: Within normal limits. GENERAL: No acute distress, non-toxic appearance. HEAD: Normal with no signs of head trauma. EYES: PERRLA, EOMI, conjunctiva normal, no discharge. EARS: Hearing grossly intact. NOSE: Normal. THROAT: Oropharynx is normal. NECK: Normal range of motion, no tenderness, supple, no lymphadenopathy, No adenopathy, no JVD. CHEST: Clear breath sounds bilaterally. No wheezes, rales, or rhonchi. CARDIAC: Regular rate and rhythm. S1 and S2, without murmurs, gallops, or rubs. VASCULAR: No Edema. Peripheral pulses normal and equal in all extremities. ABDOMEN: Normal and soft with no tenderness, no masses or pulsatile masses. GASTROINTESTINAL: Bowel sounds normal GENITOURINARY: Normal, No tenderness LYMPATHTIC: No lymphadenopathy noted. MUSCULOSKELETAL: Good range of motion of all major joints. Extremities without clubbing, cyanosis or edema. NEUROLOGICAL: Alert and oriented x 3. No focal sensory or strength deficits. Speech normal. Follows commands appropriately. PSYCHIATRIC: Normal Affect, judgement and mood. SKIN: Normal appearance with no rashes or lesions. Associated Symptoms: Shortness of breath - States he became short of breath after eating pistachios when he was outside in the cold Exacerbated by: Other - Being called Relieved by: Denies Similar symptoms previously: Yes Recently seen / treated by doctor: Yes - REPRODUCTIVE Reproductive: DENIES: : Past Medical History - General Information source: Patient - Social History Smoking Status: Former Smoker Frequency of alcohol use: None Drug Abuse: None Lives with: Homeless Family History: Reviewed & Not Pertinent Patient has suicidal ideation: No Patient has homicidal ideation: No - Past Medical History Cardiac Medical History: Reports: None Pulmonary Medical History: Reports: Hx Asthma, Hx Bronchitis EENT Medical History: Reports: None Neurological Medical History: Reports: None Endocrine Medical History: Reports: None Renal/ Medical History: Reports: None Malignancy Medical History: Reports None GI Medical History: Reports: Hx Gastroesophageal Reflux Disease, Hx Irritable Bowel - Constipation Musculoskeletal Medical History: Reports Hx Arthritis, Reports Hx Musculoskeletal Trauma Skin Medical History: Reports None Psychiatric Medical History: Reports: Hx Anxiety, Hx Bipolar Disorder, Hx Depression, Hx Personality Disorder, Hx Schizoaffective Disorder, Hx Schizophrenia Traumatic Medical History: Reports: Hx Fractures - Finger fracture Infectious Medical History: Reports: None Past Surgical History: Reports: Hx Abdominal Surgery, Hx Appendectomy, Hx Cholecystectomy, Hx Orthopedic Surgery - Immunizations Immunizations up to date: Yes Hx Diphtheria, Pertussis, Tetanus Vaccination: Yes - 2012 Hx Pneumococcal Vaccination: 08/23/00 Vertical Provider Document - INFECTION CONTROL TRAVEL OUTSIDE OF THE [place] IN LAST 30 DAYS: No Course - Vital Signs Vital signs: Temp Pulse Resp BP Pulse Ox 97.4 F 60 16 130/72 H 100 09/15/20 02:58 09/15/20 02:58 09/15/20 02:58 09/15/20 02:58 09/15/20 02:58 - Laboratory Results Critical Laboratory Results Reviewed: No Critical Results - Radiology Results Critical Radiology Results Reviewed: No Critical Results Discharge - Discharge Clinical Impression: Short of breath from being cold Condition: Stable Disposition: HOME, SELF-CARE Additional Instructions: You state you were seen today because you were short of breath when you ate some pistachio nuts while out in the cold. You state now that you have one of the you do not feel short of breath anymore you are feeling fine. You stated you also felt a little dehydrated you asked for an work did receive your water. FOLLOW-UP CARE: If you have been referred to a physician for follow-up care, call the physicians office for an appointment as you were instructed or within the next two days. If you experience worsening or a significant change in your symptoms, notify the physician immediately or return to the Emergency Department at any time for re-evaluation. Referrals: GIANCARLO CHANCE MD [Primary Care Provider] - Follow up as needed
--- OUTSIDE RECORDS SUMMARY | 2020-09-17 10:40 | XMS REPORT ---
:1985 [facility] [address] [place] [address] Care Team Providers Name Role Phone Adonis, A Primary Care Physician Unavailable Allergies, Adverse Reactions, Alerts This patient has no known allergies or adverse reactions. Medications Ordered Filled Start Stop Current Ordering Indication Dosage Frequency Signature Comments Components Medication Medication Date Date Medication? Clinician (SIG) Name Name Fioricet 2020- No 6xD 1 capsule 50-300-40 4-29 05-09 as needed MG 00:00: 00:00 Orally 00 :00 every 4 hrs Megestrol 2020- No BID 1 tablet Acetate 20 3-30 04-29 Orally MG 00:00: 00:00 Twice a 00 :00 day Flonase 2019-0 Yes QD 1 spray in Allergy 2-21 each Relief 50 00:00: nostril MCG/ACT 00 Nasally Once a day SEROquel 50 2019-0 Yes 50MG Take 1/2 MG Oral 1-23 to 1 mg TABLET 00:00: QHS 00 Abilify 5 2019-0 Yes 5MG Take one MG Oral 1-23 daily TABLET 00:00: 00 Symbicort 2018-08- No BID 2 puffs 160-4.5 0-21 05-18 Inhalation MCG/ACT 00:00: 00:00 Twice a 00 :00 day PredniSONE 2018-08- No as 5 MG (21) 0-21 - directed 00:00: 00:00 Orally as 00 :00 directed Penicillin 2019- No BID 1 tablet V Potassium -09 05-22 Orally 250 MG 00:00: 00:00 Twice a 00 :00 day Ventolin No QID 2 puffs as HFA 108 (90 6-03 needed Base) 00:00: Inhalation MCG/ACT 00 every 6 hrs Chlorphenir No QID 1 tablet amine 7-17 as needed Maleate 4 00:00: Orally mg 00 every 6 hrs Prilosec 20 Yes QD 1 capsule MG 1-09 Orally 00:00: Once a day 00 ProAir HFA Yes 6xD 2 puffs as [...] 4 inhalation hours by route. inhalation route. budesonide/ Yes Inhale. Inhale . formoterol fumarate (SYMBICORT INHL) ALBUTEROL Yes Inhale. Inhale. INHL Problems Condition Condition Condition Status Onset Resolution Last Treatin g Comments Name Details Category Date Date Treatment Clinician Date Paranoid Concern Active 2019-08 schizophren 09-21 ia 00:00: 00 Bipolar Concern Active 2019-08 disord, 09-21 crnt 00:00: episode 00 manic w/o psych features, mod Paranoid Concern Inactiv schizophren e 05-14 ia 00:00: 00 Bipolar Concern Inactiv disord, e 05-14 crnt 00:00: episode 00 manic w/o psych features, mod Seasonal Seasonal [id number] Active 2020-04-[address] allergic allergic 04-28 12:01:20 Asses smen rhinitis rhinitis 00:00: [...] to the above treatmen t Bloating Bloating [id number] Active 2020-04-[address] 9-06 12:05:07 Assessm en 00:00: t & Plan [...] ia 00:00: 00 Anxiety Anxiety Problem Active 619 00:00: 00 Chronic Chronic Problem Active mental Mental 6-19 disorder Disorder 00:00: 00 Asthma Asthma Problem Active 19 00:00: 00 Injury of Injury of Problem Active upper arm Upper Arm 6-19 00:00: 00 Homeless Homeless Problem Active 02-08 00:00: 00 Sexually Encounter Problem Active 2016-08 transmitted for 09-19 infectious screening 00:00: disease for 00 infections with a predominant ly sexual mode of transmissio n Fatigue Other Problem Active 2016-08 fatigue - 00:00: 00 Uncomplicat Moderate Problem Active ed moderate persistent - persistent asthma, 00:00: asthma uncomplicat 00 ed Schizoaffec Schizoaffec Problem Active 2015-08 tive tive 225 disorder disorder, 00:00: unspecified 00 Otitis Otitis Problem Active 2015-08 externa of externa in 0-20 left ear other 00:00: diseases 00 classified elsewhere, left ear Otitis Otitis Problem Active 2015-08 externa externa in 0-20 other 00:00: diseases 00 classified elsewhere, unspecified ear Mild Mild Problem Active intermitten intermitten 2- t asthma t asthma, 00:00: uncomplicat 00 ed 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 ,bronchial 08-23 without ,intrinsic 00:00: status 00 asthmaticus Chronic Schizoaffec Problem Active 2013-08 schizoaffec tive 08-23 tive disorder, 00:00: schizophren chronic 00 ia Not on file Not on file [id number] Simple schizophren Problem Active schizophren ia ,simple [...] Comments Text Results Atomic Results Result Comments SARS-CoV-2 RNA Resp Ql JOHNY+probe 2020-04-14 00:00:00 Test Item Value Reference Range Comments SARS-CoV-2 RNA Resp Ql JOHNY+probe Not detected [facility] Case ID: (test code = 16873-0) [id number] SARS-CoV-2 RNA Resp Ql JOHNY+naqmy6252-05-52 00:00:00 Test Item Value Reference Range Comments SARS-CoV-2 RNA Resp Ql Not detected [facility] Case JOHNY+probe (test code = ID: 43946 8420 38162-5) HERPES SIMPLEX VIRUS,[id number] 00:00:00 Test Item Value Reference Range Comments HERPESSIMPLEXVIRUS,PCR (test code = Negative NEGATIVE HERPESSIMPLEXVIRUS,PCR) SOURCE (test code = SOURCE) . LAB [id number] 00:00:00 Test Item Value Reference Range Comments PDF (test code = PDF) LAB CBC + AUTOMATED [id number] 00:00:00 Test Item Value Reference Range Comments [...] BASOPHILS# (test code = BASOPHILS#) 0.05 0.0-0.1 [facility]2020-05-01 00:00:00 Test Item Value Reference Range Comments [...] (test code = GLOMERULARFILT.RATE) 93 >60 LIPID [id number] 00:00:00 Test Item Value Reference Range Comments [...] (test code = NON-HDLCHOLESTEROL) 150 0-159 URIC [id number] 00:00:00 Test Item Value Reference Range Comments URICACID (test code = URICACID) 6.2 4.4-7.6 TSH + FREE [id number] 00:00:00 Test Item Value Reference Range Comments UZO2PKLAPDTBTALY (test code = KEE9EFLRLNVTIGCP) 0.796 0.340-4.410 FREET4 (test code = FREET4) 0.73 0.61-1.12 LAB [id number] 00:00:00 Test Item Value Reference Range Comments PDF (test code = PDF) LAB SARS-CoV-2 RNA Resp Ql JOHNY+txvpo1913-71-72 00:00:00 Test Item Value Reference Range Comments SARS-CoV-2 RNA Resp Ql Not detected [facility] Case JOHNY+probe (test code = ID: 11598 8420 50013-3) CBC + AUTOMATED [id number] 00:00:00 Test Item Value Reference Range Comments [...] (test code = BASOPHILS#) 0.03 0.0-0.1 COMPREHENSIVE [id number] 00:00:00 Test Item Value Reference Range Comments [...] (test code = GLOMERULARFILT.RATE) 87 >60 LIPID [id number] 00:00:00 Test Item Value Reference Range Comments [...] (test code = NON-HDLCHOLESTEROL) 135 0-159 URIC [id number] 00:00:00 Test Item Value Reference Range Comments URICACID (test code = URICACID) 4.2 4.4-7.6 [id number] 00:00:00 Test Item Value Reference Range Comments [...] NEGATIVE *PleaseNote: (test code = *PleaseNote:) MICROALBUMIN/CREATINE [id number] 00:00:00 Test Item Value Reference Range Comments MICROALB/CREATRATIO (test code = 02719-3) 5 0-29 CREATININE,URINE (test code = CREATININE,URINE) 259 20-300 TSH + FREE [id number] 00:00:00 Test Item Value Reference Range Comments MBQ1GQXBWKKMMTLM (test code = AMD6CJSRUEGNUVGM) 3.254 0.340-4.410 FREET4 (test code = FREET4) 0.89 0.61-1.12 LAB [id number] 00:00:00 Test Item Value Reference Range Comments PDF (test code = PDF) LAB Ycwwrwo0710-24-22 02:48:00 Test Item Value Reference Range Comments Glucose (test code = 1558-6) Negative mg/dL Spstspjd3387-97-75 02:48:00 Test Item Value Reference Range Comments Chloride (test code = 2069-3) 108 mmol/L Wuzexbbmng1012-33-14 02:48:00 Test Item Value Reference Range Comments Creatinine (test code = 98950-1) 1.0 mg/dL lXMG6207-28-40 02:48:00 Test Item Value Reference Range Comments eGFR (test code = 79509-1) JOHNY: 90.3 AA: 109.4 Dcunyks2054-87-12 02:48:00 Test Item Value Reference Range Comments Calcium (test code = 37093-1) 9.4 mg/dL ZEE0622-88-89 02:48:00 Test Item Value Reference Range Comments ALT (test code = 6020-2) 6 U/L MUQ5657-46-10 02:48:00 Test Item Value Reference Range Comments AST (test code = 16577-9) 17 U/L Sizgxbn1467-27-75 02:48:00 Test Item Value Reference Range Comments Albumin (test code = 1747-5) 4.3 g/dL Ackpgbgplrt3397-92-83 02:48:00 Test Item Value Reference Range Comments Cholesterol (test code = 2093-3) 199 mg/dL Ibeeipmsybio9104-70-11 02:48:00 Test Item Value Reference Range Comments Triglyceride (test code = 3043-7) 85 mg/dL KTJ1683-96-27 02:48:00 Test Item Value Reference Range Comments HDL (test code = 2085-9) 66 mg/dL Bigy1693-56-96 02:48:00 Test Item Value Reference Range Comments Iron (test code = 2498-4) 56 ug/dL Ugwnjzhmlrbk8053-32-27 02:48:00 Test Item Value Reference Range Comments Homocysteine (test code = 2428-1) 16.3 umol/L GPK1063-01-56 02:48:00 Test Item Value Reference Range Comments RPR (test code = 26813-8) NONREACTIVE M/mm3 Bdmfis9802-36-90 02:48:00 Test Item Value Reference Range Comments Folate (test code = 2282-2) 12.6 ng/mL Nm4886-62-34 02:48:00 Test Item Value Reference Range Comments Ph (test code = 28144-0) 6 Fdhxnahum5736-57-37 02:48:00 Test Item Value Reference Range Comments Bilirubin (test code = 50477-6) Negative Rolzuod4947-37-35 02:48:00 Test Item Value Reference Range Comments Ketones (test code = 94563-6) Negative Xmicaox0644-35-65 02:48:00 Test Item Value Reference Range Comments Protein (test code = 13388-6) Negative Fhgbrxmafrpy7534-81-12 02:48:00 Test Item Value Reference Range Comments Urobilinogen (test code = 3107-0) Negative Lfhop6779-01-62 02:48:00 Test Item Value Reference Range Comments Blood (test code = 882-1) Negative Red Blood Fedu2727-55-27 02:48:00 Test Item Value Reference Range Comments Red Blood Cell (test code = 1007-4) 1 /HPF Wgpgruyxgim1614-42-58 22:37:00 Test Item Value Reference Range Comments Amphetamine (test code = 25950-4) Not Detected Hugbzeogzj3423-37-51 22:37:00 Test Item Value Reference Range Comments Gabapentin (test code = 9738-6) Not Detected Hbmrueas9674-76-49 22:37:00 Test Item Value Reference Range Comments Fentanyl (test code = 20394-2) Not Detected Guowexxf2631-52-08 22:37:00 Test Item Value Reference Range Comments Tramadol (test code = 34438-5) Not Detected 3-Idruvwqqaxsdhwa5899-24Dcbbavgphzuftmv2578-27-57 22:37:00 Test Item Value Reference Range Comments 7-Aminoclonazepam (test code = 74924-4) Not Detected Lxxyqxfccyo4658-41-13 22:37:00 Test Item Value Reference Range Comments Nordiazepam (test code = 67757-3) Not Detected Ekjvmxdt6906-97-32 22:37:00 Test Item Value Reference Range Comments Oxazepam (test code = 53083-3) Not Detected Xvquokuuxvmtd0058-68-94 22:37:00 Test Item Value Reference Range Comments Buprenorphine (test code = 3414-0) Not Detected Ethyl Pmyxcvifals3752-68-91 22:37:00 Test Item Value Reference Range Comments Ethyl Glucuronide (test code = 73217-0) Not Detected Sthadagro4614-01-29 22:37:00 Test Item Value Reference Range Comments Methadone (test code = 3773-9) Not Detected Fzmxtgg0901-69-52 22:37:00 Test Item Value Reference Range Comments Codeine (test code = 33202-5) Not Detected pD2037-68-76 22:37:00 Test Item Value Reference Range Comments pH (test code = 35485-4) 6.0 U/L Vteqwiwsrzk1236-76-62 22:37:00 Test Item Value Reference Range Comments Hydrocodone (test code = 14573-8) Not Detected Cflcncdrouscs1790-37-55 22:37:00 Test Item Value Reference Range Comments Hydromorphone (test code = 9834-3) Not Detected Ftgxdakpm9682-94-02 22:37:00 Test Item Value Reference Range Comments Oxycodone (test code = 53414-6) Not Detected Sxrfbjlfqvg7272-75-44 22:37:00 Test Item Value Reference Range Comments Oxymorphone (test code = 67661-2) Not Detected Sjworuzbmzduj5761-94-35 22:37:00 Test Item Value Reference Range Comments Phencyclidine (test code = 8234-7) Not Detected Htcomumluofprhr7255-73-96 22:37:00 Test Item Value Reference Range Comments Benzoylecgonine (test code = 8187-7) Not Detected Nnofpjaj8238-12-25 21:14:00 Test Item Value Reference Range Comments Tramadol (test code = 94254-3) Not Detected 6-Yjmddtqkorzffbc0270-79Lwawnegzifwmrpn7228-79-74 21:14:00 Test Item Value Reference Range Comments 7-Aminoclonazepam (test code = 27122-6) Not Detected Gesyalskidc5738-93-12 21:14:00 Test Item Value Reference Range Comments Nordiazepam (test code = 21554-0) Not Detected Riiybyog8243-82-74 21:14:00 Test Item Value Reference Range Comments Oxazepam (test code = 88552-2) Not Detected Cnxpmvejinuui1961-87-22 21:14:00 Test Item Value Reference Range Comments Buprenorphine (test code = 3414-0) Not Detected Ethyl Vgiboddewtu8244-57-79 21:14:00 Test Item Value Reference Range Comments Ethyl Glucuronide (test code = 61890-0) Not Detected Etocyeqxf9228-63-09 21:14:00 Test Item Value Reference Range Comments Methadone (test code = 3773-9) Not Detected Swiuzhq1178-79-59 21:14:00 Test Item Value Reference Range Comments Codeine (test code = 15761-8) Not Detected gV2419-42-72 21:14:00 Test Item Value Reference Range Comments pH (test code = 72682-3) 6.0 U/L Fwchzoteuwv2732-95-17 21:14:00 Test Item Value Reference Range Comments Hydrocodone (test code = 38021-2) Not Detected Idohkdkefooyj2218-71-81 21:14:00 Test Item Value Reference Range Comments Hydromorphone (test code = 9834-3) Not Detected Lrhfgwylc7113-03-98 21:14:00 Test Item Value Reference Range Comments Oxycodone (test code = 91190-7) Not Detected Kctolhaikrb3790-05-71 21:14:00 Test Item Value Reference Range Comments Oxymorphone (test code = 88068-7) Not Detected Dqnlfybuirzgw0235-61-16 21:14:00 Test Item Value Reference Range Comments Phencyclidine (test code = 8234-7) Not Detected Gstlmpqmucmzvls9136-79-30 21:14:00 Test Item Value Reference Range Comments Benzoylecgonine (test code = 8187-7) Not Detected Qkffhcxtrdr4314-31-23 21:14:00 Test Item Value Reference Range Comments Amphetamine (test code = 06143-9) Not Detected Qaljzdpvzj0895-76-53 21:14:00 Test Item Value Reference Range Comments Gabapentin (test code = 9738-6) Not Detected Kepivwoo3980-13-80 21:14:00 Test Item Value Reference Range Comments Fentanyl (test code = 38763-0) Not Detected Assessments Condition Name Status Diagnosis [...] Date/Time Type Type Clinicians Facility Department ID 2020-09-16 2020-09-16 [facility] [id number] 00:00:00 00:00:00 2020-09-12 2020-09-12 [facility] [id number] 00:00:00 00:00:00 2020-09-12 2020-09-12 [facility] [id number] 00:00:00 00:00:00 2020-09-10 2020-09-10 [facility] [id number] 00:00:00 00:00:00 2020-07-22 2020-07-22 Psychotherap [facility] 9 4p96v1t-24 09:00:00 10:00:00 y 60 Health Services 09-7jj6-60o Services 0-r30juu952 c69 2020-05-14 2020-05-14 Eval & Mgt [facility] 15b i36l5-n7 15:00:00 15:20:00 visit for Health Services 21-3g4u-i65 estab pt Services a-tpf17q120 expanded c7a 2020-04-28 2020-04-28 Outpatient [facility] [id number]_ 17:35:11 17:37:26 [id number] 2020-04-28 2020-04-28 [facility] [id number] 12:00:00 12:20:00 2020-04-28 2020-04-28 Outpatient [facility] [id number] 00:00:00 00:00:00 [id number] 2020-04-19 2020-04-19 [id number] 00:00:00 00:00:00 PA PA 2020-04-18 2020-04-18 [facility] [id number] 00:00:00 00:00:00 PA PA 2020-04-11 2020-04-11 [facility] [id number] 00:00:00 00:00:00 PA PA 2020-04-11 2020-04-11 [facility] [id number] 00:00:00 00:00:00 2020-04-08 2020-04-08 [facility] [id number] 00:00:00 00:00:00 PA PA 2020-04-04 2020-04-04 [facility] [id number] 00:00:00 00:00:00 2020-04-01 2020-04-01 [facility] [id number] 00:00:00 00:00:00 PA PA 2020-03-29 2020-03-29 [facility] [id number] 00:00:00 00:00:00 2020-03-29 2020-03-29 [facility] [id number] 00:00:00 00:00:00 2020-03-27 2020-03-27 [facility] [id number] 00:00:00 00:00:00 2020-03-22 2020-03-22 [facility] [id number] 00:00:00 00:00:00 PA PA 2020-03-21 2020-03-21 [facility] [id number] 00:00:00 00:00:00 PA PA 2020-03-21 2020-03-21 [facility] [id number] 00:00:00 00:00:00 2020-03-21 2020-03-21 [facility] [id number] 00:00:00 00:00:00 2020-03-21 2020-03-21 [facility] [id number] 00:00:00 00:00:00 2020-03-14 2020-03-14 [facility] [id number] 00:00:00 00:00:00 2020-03-12 2020-03-12 [facility] [id number] 00:00:00 00:00:00 2020-03-11 2020-03-11 [id number] 00:00:00 00:00:00 PA PA 2020-03-11 2020-03-11 [facility] [id number] 00:00:00 00:00:00 2020-03-08 2020-03-08 [id number] 00:00:00 00:00:00 PA PA 2020-03-05 2020-03-05 [facility] [id number] 00:00:00 00:00:00 PA PA 2020-03-04 2020-03-04 [facility] [id number] 00:00:00 00:00:00 2020-03-04 2020-03-04 [facility] [id number] 00:00:00 00:00:00 2020-02-29 2020-02-29 [facility] [id number] 00:00:00 00:00:00 PA 2020-02-26 2020-02-26 [facility] [id number] 00:00:00 00:00:00 2020-02-26 2020-02-26 [facility] [id number] 00:00:00 00:00:00 2020-02-25 2020-02-25 [facility] [id number] 00:00:00 00:00:00 2020-02-25 2020-02-25 [facility] [id number] 00:00:00 00:00:00 2020-02-20 2020-02-20 [id number] 00:00:00 00:00:00 PA PA 2020-02-16 2020-02-16 [facility] [id number] 00:00:00 00:00:00 2020-02-16 2020-02-16 [facility] [id number] 00:00:00 00:00:00 2020-02-16 2020-02-16 [facility] [id number] 00:00:00 00:00:00 2020-02-16 2020-02-16 [facility] [id number] 00:00:00 00:00:00 2020-02-16 2020-02-16 [facility] [id number] 00:00:00 00:00:00 2020-02-15 2020-02-15 [id number] 00:00:00 00:00:00 PA PA 2020-02-14 2020-02-14 [facility] [id number] 00:00:00 00:00:00 2020-02-13 2020-02-13 [facility] [id number] 00:00:00 00:00:00 PA PA 2020-02-12 2020-02-12 [id number] 00:00:00 00:00:00 PA PA 2020-02-11 2020-02-11 [facility] [id number] 00:00:00 00:00:00 2020-02-11 2020-02-11 [facility] [id number] 00:00:00 00:00:00 2020-02-11 2020-02-11 [facility] [id number] 00:00:00 00:00:00 2020-02-11 2020-02-11 [facility] [id number] 00:00:00 00:00:00 2020-02-07 2020-02-07 [facility] [id number] 00:00:00 00:00:00 2020-02-07 2020-02-07 [facility] [id number] 00:00:00 00:00:00 2020-02-07 2020-02-07 [facility] [id number] 00:00:00 00:00:00 2020-02-07 2020-02-07 [facility] [id number] 00:00:00 00:00:00 2020-02-07 2020-02-07 [facility] [id number] 00:00:00 00:00:00 2020-02-06 2020-02-06 [id number] 00:00:00 00:00:00 PA PA 2020-02-04 2020-02-04 [facility] [id number] 00:00:00 00:00:00 2020-02-04 2020-02-04 [facility] [id number] 00:00:00 00:00:00 2020-02-01 2020-02-01 [facility] [id number] 00:00:00 00:00:00 2020-02-01 2020-02-01 [facility] [id number] 00:00:00 00:00:00 2020-01-31 2020-01-31 [id number] 00:00:00 00:00:00 PA PA 2020-01-31 2020-01-31 [facility] [id number] 00:00:00 00:00:00 2020-01-28 2020-01-28 [facility] [id number] 00:00:00 00:00:00 2020-01-28 2020-01-28 [facility] [id number] 00:00:00 00:00:00 2020-01-28 2020-01-28 [facility] [id number] 00:00:00 00:00:00 2020-01-28 2020-01-28 [facility] [id number] 00:00:00 00:00:00 2020-01-28 2020-01-28 [facility] [id number] 00:00:00 00:00:00 2020-01-27 2020-01-27 [facility] [id number] 00:00:00 00:00:00 2020-01-27 2020-01-27 [facility] [id number] 00:00:00 00:00:00 2020-01-25 2020-01-25 [facility] [id number] 00:00:00 00:00:00 2020-01-24 2020-01-24 [facility] [id number] 00:00:00 00:00:00 2020-01-23 2020-01-23 [id number] 00:00:00 00:00:00 PA PA 2020-01-22 2020-01-22 [facility] [id number] 00:00:00 00:00:00 PA PA 2020-01-22 2020-01-22 [facility] [id number] 00:00:00 00:00:00 PA PA 2020-01-21 2020-01-21 [facility] [id number] 00:00:00 00:00:00 2020-01-21 2020-01-21 [facility] [id number] 00:00:00 00:00:00 2020-01-18 2020-01-18 [id number] 00:00:00 00:00:00 PA PA 2020-01-18 2020-01-18 [facility] [id number] 00:00:00 00:00:00 PA PA 2020-01-18 2020-01-18 [facility] [id number] 00:00:00 00:00:00 2020-01-18 2020-01-18 [facility] [id number] 00:00:00 00:00:00 2020-01-17 2020-01-17 [facility] [id number] 00:00:00 00:00:00 2020-01-17 2020-01-17 [facility] [id number] 00:00:00 00:00:00 2020-01-16 2020-01-16 [id number] 00:00:00 00:00:00 PA PA 2020-01-16 2020-01-16 [facility] [id number] 00:00:00 00:00:00 2020-01-16 2020-01-16 [facility] [id number] 00:00:00 00:00:00 2020-01-14 2020-01-14 [facility] [id number] 00:00:00 00:00:00 2020-01-14 2020-01-14 [facility] [id number] 00:00:00 00:00:00 2020-01-14 2020-01-14 [facility] [id number] 00:00:00 00:00:00 2020-01-14 2020-01-14 [facility] [id number] 00:00:00 00:00:00 2020-01-13 2020-01-13 [facility] [id number] 00:00:00 00:00:00 2020-01-13 2020-01-13 [facility] [id number] 00:00:00 00:00:00 2020-01-12 2020-01-12 [facility] [id number] 00:00:00 00:00:00 2020-01-11 2020-01-11 [id number] 00:00:00 00:00:00 PA PA 2020-01-11 2020-01-11 [facility] [id number] 00:00:00 00:00:00 2020-01-11 2020-01-11 [facility] [id number] 00:00:00 00:00:00 2020-01-11 2020-01-11 [facility] [id number] 00:00:00 00:00:00 2020-01-11 2020-01-11 [facility] [id number] 00:00:00 00:00:00 2020-01-08 2020-01-08 [id number] 00:00:00 00:00:00 PA PA 2020-01-06 2020-01-06 [facility] [id number] 00:00:00 00:00:00 2020-01-06 2020-01-06 [facility] [id number] 00:00:00 00:00:00 2020-01-05 2020-01-05 [facility] [id number] 00:00:00 00:00:00 2020-01-03 2020-01-03 [facility] [id number] 00:00:00 00:00:00 2020-01-03 2020-01-03 [facility] [id number] 00:00:00 00:00:00 2019-12-29 2019-12-29 [id number] 00:00:00 00:00:00 PA PA 2019-12-29 2019-12-29 [facility] [id number] 00:00:00 00:00:00 2019-12-28 2019-12-28 [facility] [id number] 00:00:00 00:00:00 2019-12-27 2019-12-27 [facility] [id number] 00:00:00 00:00:00 2019-12-25 2019-12-25 [id number] 00:00:00 00:00:00 PA PA 2019-12-25 2019-12-25 [facility] [id number] 00:00:00 00:00:00 2019-12-25 2019-12-25 [facility] [id number] 00:00:00 00:00:00 2019-12-25 2019-12-25 [facility] [id number] 00:00:00 00:00:00 2019-12-25 2019-12-25 [facility] [id number] 00:00:00 00:00:00 2019-12-22 2019-12-22 [id number] 00:00:00 00:00:00 PA PA 2019-12-22 2019-12-22 [facility] [id number] 00:00:00 00:00:00 2019-12-22 2019-12-22 [facility] [id number] 00:00:00 00:00:00 2019-12-20 2019-12-20 [id number] 00:00:00 00:00:00 PA PA 2019-12-20 2019-12-20 [facility] [id number] 00:00:00 00:00:00 2019-12-19 2019-12-19 [facility] [id number] 00:00:00 00:00:00 PA 2019-12-19 2019-12-19 [facility] [id number] 00:00:00 00:00:00 2019-12-18 2019-12-18 [id number] 00:00:00 00:00:00 PA PA 2019-12-18 2019-12-18 [facility] [id number] 00:00:00 00:00:00 2019-12-18 2019-12-18 [facility] [id number] 00:00:00 00:00:00 2019-12-17 2019-12-17 [facility] [id number] 00:00:00 00:00:00 2019-12-17 2019-12-17 [facility] [id number] 00:00:00 00:00:00 2019-12-16 2019-12-16 [facility] [id number] 00:00:00 00:00:00 2019-12-16 2019-12-16 [facility] [id number] 00:00:00 00:00:00 2019-12-16 2019-12-16 [facility] [id number] 00:00:00 00:00:00 2019-12-14 2019-12-14 [id number] 00:00:00 00:00:00 PA PA 2019-12-14 2019-12-14 [facility] [id number] 00:00:00 00:00:00 2019-12-14 2019-12-14 [facility] [facility] [id number] 00:00:00 00:00:00 2019-12-13 2019-12-13 [facility] [id number] 00:00:00 00:00:00 2019-12-13 2019-12-13 [facility] [id number] 00:00:00 00:00:00 2019-12-13 2019-12-13 [facility] [id number] 00:00:00 00:00:00 2019-12-12 2019-12-12 [facility] [id number] 00:00:00 00:00:00 2019-12-12 2019-12-12 [facility] [id number] 00:00:00 00:00:00 2019-12-11 2019-12-11 [facility] [id number] 00:00:00 00:00:00 2019-12-11 2019-12-11 [facility] [id number] 00:00:00 00:00:00 2019-12-11 2019-12-11 [facility] [id number] 00:00:00 00:00:00 2019-12-11 2019-12-11 [facility] [id number] 00:00:00 00:00:00 2019-12-08 2019-12-08 [facility] [id number] 00:00:00 00:00:00 2019-12-08 2019-12-08 [facility] [id number] 00:00:00 00:00:00 2019-12-08 2019-12-08 [facility] [id number] 00:00:00 00:00:00 2019-12-08 2019-12-08 [facility] [id number] 00:00:00 00:00:00 2019-12-07 2019-12-07 [facility] [id number] 00:00:00 00:00:00 2019-12-05 2019-12-05 [facility] [id number] 00:00:00 00:00:00 2019-12-05 2019-12-05 [facility] [id number] 00:00:00 00:00:00 2019-12-04 2019-12-04 [id number] 00:00:00 00:00:00 PA PA 2019-12-04 2019-12-04 [facility] [id number] 00:00:00 00:00:00 2019-12-03 2019-12-03 [facility] [id number] 00:00:00 00:00:00 2019-12-03 2019-12-03 [facility] [id number] 00:00:00 00:00:00 2019-12-03 2019-12-03 [facility] [id number] 00:00:00 00:00:00 2019-12-03 2019-12-03 [facility] [id number] 00:00:00 00:00:00 2019-12-03 2019-12-03 [facility] [id number] 00:00:00 00:00:00 2019-12-02 2019-12-02 [facility] [id number] 00:00:00 00:00:00 2019-12-02 2019-12-02 [facility] [id number] 00:00:00 00:00:00 2019-12-02 2019-12-02 [facility] [id number] 00:00:00 00:00:00 2019-12-01 2019-12-01 [facility] [id number] 00:00:00 00:00:00 2019-12-01 2019-12-01 [facility] [id number] 00:00:00 00:00:00 2019-12-01 2019-12-01 [facility] [id number] 00:00:00 00:00:00 2019-11-30 2019-11-30 [facility] [id number] 00:00:00 00:00:00 2019-11-29 2019-11-29 [facility] [id number] 00:00:00 00:00:00 2019-11-29 2019-11-29 [facility] [id number] 00:00:00 00:00:00 2019-11-28 2019-11-28 [facility] [id number] 00:00:00 00:00:00 2019-11-28 2019-11-28 [facility] [id number] 00:00:00 00:00:00 2019-11-27 2019-11-27 [id number] 00:00:00 00:00:00 PA PA 2019-11-27 2019-11-27 [facility] [id number] 00:00:00 00:00:00 2019-11-27 2019-11-27 [facility] [id number] 00:00:00 00:00:00 2019-11-26 2019-11-26 [facility] [id number] 00:00:00 00:00:00 2019-11-26 2019-11-26 [facility] [id number] 00:00:00 00:00:00 2019-11-26 2019-11-26 [facility] [id number] 00:00:00 00:00:00 2019-11-25 2019-11-25 [facility] [id number] 00:00:00 00:00:00 2019-11-25 2019-11-25 [facility] [id number] 00:00:00 00:00:00 2019-11-23 2019-11-23 [id number] 00:00:00 00:00:00 PA PA 2019-11-23 2019-11-23 [facility] [id number] 00:00:00 00:00:00 2019-11-22 2019-11-22 [facility] [id number] 00:00:00 00:00:00 2019-11-22 2019-11-22 [facility] [id number] 00:00:00 00:00:00 2019-11-22 2019-11-22 [facility] [id number] 00:00:00 00:00:00 2019-11-21 2019-11-21 [facility] [id number] 00:00:00 00:00:00 2019-11-21 2019-11-21 [facility] [id number] 00:00:00 00:00:00 2019-11-21 2019-11-21 [facility] [id number] 00:00:00 00:00:00 2019-11-20 2019-11-20 [id number] 00:00:00 00:00:00 PA PA 2019-11-20 2019-11-20 [facility] [id number] 00:00:00 00:00:00 2019-11-20 2019-11-20 [facility] [id number] 00:00:00 00:00:00 2019-11-20 2019-11-20 [facility] [id number] 00:00:00 00:00:00 2019-11-20 2019-11-20 [facility] [id number] 00:00:00 00:00:00 2019-11-20 2019-11-20 [facility] [id number] 00:00:00 00:00:00 2019-11-19 2019-11-19 [facility] [id number] 00:00:00 00:00:00 2019-11-19 2019-11-19 [facility] [id number] 00:00:00 00:00:00 2019-11-19 2019-11-19 [facility] [id number] 00:00:00 00:00:00 2019-11-19 2019-11-19 [facility] [id number] 00:00:00 00:00:00 2019-11-18 2019-11-18 [facility] [id number] 00:00:00 00:00:00 2019-11-18 2019-11-18 [facility] [id number] 00:00:00 00:00:00 2019-11-18 2019-11-18 [facility] [id number] 00:00:00 00:00:00 2019-11-18 2019-11-18 [facility] [id number] 00:00:00 00:00:00 2019-12-15 2019-11-17 [facility] [id number]_ 10:42:00 23:59:00 [id number] 2019-11-17 2019-11-17 [facility] [id number] 00:00:00 23:59:00 [id number] 2019-11-17 [facility] [id number] 11:40:00 12:00:00 2019-11-17 2019-11-17 [id number] 00:00:00 00:00:00 PA PA 2019-11-17 2019-11-17 [facility] [id number] 00:00:00 00:00:00 2019-11-17 2019-11-17 [facility] [id number] 00:00:00 00:00:00 2019-11-17 2019-11-17 [facility] [id number] 00:00:00 00:00:00 2019-11-17 2019-11-17 [facility] [id number] 00:00:00 00:00:00 2019-11-17 2019-11-17 [facility] [id number] 00:00:00 00:00:00 2019-11-17 2019-11-17 [facility] [id number] 00:00:00 00:00:00 2019-11-17 2019-11-17 [facility] [id number] 00:00:00 00:00:00 2019-11-17 2019-11-17 [facility] [id number] 00:00:00 00:00:00 2019-11-16 2019-11-16 [facility] [id number] 00:00:00 00:00:00 2019-11-16 2019-11-16 [facility] [id number] 00:00:00 00:00:00 2019-11-16 2019-11-16 [facility] [id number] 00:00:00 00:00:00 2019-11-16 2019-11-16 [facility] [id number] 00:00:00 00:00:00 2019-11-15 2019-11-15 [facility] [id number] 00:00:00 00:00:00 2019-11-15 2019-11-15 [facility] [id number] 00:00:00 00:00:00 2019-11-14 2019-11-14 [facility] [id number] 00:00:00 00:00:00 2019-11-14 2019-11-14 [facility] [id number] 00:00:00 00:00:00 2019-11-14 2019-11-14 [facility] [id number] 00:00:00 00:00:00 2019-11-14 2019-11-14 [facility] [id number] 00:00:00 00:00:00 2019-11-10 2019-11-10 [id number] 00:00:00 00:00:00 PA PA 2019-11-10 2019-11-10 [facility] [id number] 00:00:00 00:00:00 2019-11-10 2019-11-10 [facility] [id number] 00:00:00 00:00:00 2019-11-10 2019-11-10 [facility] [id number] 00:00:00 00:00:00 2019-11-09 2019-11-09 [facility] [...] [id number] 00:00:00 00:00:00 PA PA 2019-04-04 2019-04-04 Alanis Ruiz [id number] 00:00:00 00:00:00 DO: [facility] 0813 [facility], [address] [phone], Ph. 2019-03-01 2019-03-01 Alanis Ruiz [id number] 00:00:00 00:00:00 DO: [facility] 0710 [facility], [address] [place] [id number], Ph. 2019-02-14 2019-02-14 Alanis Ruiz [id number] _[id number] 00:00:00 00:00:00 DO: 2145 [facility] 0625 [facility], [address] [phone], Ph. 2019-02-08 2019-02-08 Alanis Ruiz [id number] 00:00:00 00:00:00 DO: 2145 [facility] 0619 [facility], [address] [id number], Ph. 2019-01-23 2019-01-23 [facility] [...] 2017-09-13 [id number] 00:00:00 00:00:00 PA PA 2017-08-31 2017-08-31 [facility] [...] 2010-06-30 [facility] [id number] 00:00:00 00:00:00 PA PA Payers Payer Name Policy Type Policy Number Effective Date Expiration D ate [place]ICAID [place] [id number] 2019 00:00:00 ACCESS Plan of Treatment Planned [...] [lb_av] Height 2019-02-14 00:00:00 68 [in_i] BP Systolic 2019-03-01 00:00:00 100 mm[Hg] Body Weight 2019-03-01 00:00:00 138 [lb_av] BP Diastolic 2019-03-01 00:00:00 60 mm[Hg] Height 2019-03-01 00:00:00 68 [in_i] BMI (Body Mass Index) 2019-03-01 00:00:00 21 kg/m2 BP Diastolic 2019-02-08 00:00:00 66 mm[Hg] Height 2019-02-08 00:00:00 68 [in_i] BMI (Body Mass Index) 2019-02-08 00:00:00 21 kg/m2 BP Systolic 2019-02-08 00:00:00 108 mm[Hg] Body Weight 2019-02-08 00:00:00 138 [lb_av] heart rate 2018-11-14 11:30:00 65 /min blood pressure systolic 2018-11-14 11:30:00 108 mm[Hg] blood pressure diastolic 2018-11-14 11:30:00 67 mm[Hg] height 2018-11-14 11:30:00 69 [in_us] weight 2018-11-14 11:30:00 143.6 [lb_av] bmi 2018-11-14 11:30:00 21.20 kg/m2 Height 2020-05-14 15:00:00 68 [in_i] Hospital Discharge Instructions 1. Injury of upper arm XR, elbow 2. Fracture of radial head Discussion Note: None recorded. Patient educational handouts: No information available.1. Injury of upper arm 2. Fracture of radial head XR, elbow Discussion Note: None recorded. Patient educational handouts: No information available.
== END 2020-09-15 03:15 | disposition home or self-care (01) ==
LOC: ER 02:50
DX: R06.02 Shortness of breath (principal); Z59.0 Homelessness; Z87.891 Personal history of nicotine dependence; J45.909 Unspecified asthma, uncomplicated
CPT/HCPCS: 99282